=== PATIENT | female | born 1955 | race Caucasian/White ===

== ENCOUNTER 2021-11-13 10:19 | Outpatient (CLI) | payer MEDICARE, OTHER, SELFPAY ==
--- NOTE | ~2021-11-13 | DEXA_ITS ---
Bone Density Report Name: SHIKHA KRAUS Age: 66 Sex: Female Ethnicity: White Date of : 1955 Indication: postmenopausal; screening for osteoporosis; parental hip fracture; height loss; cancer; hysterectomy; Referring Provider: GIORGIO*, LÓPEZ Lord Study: Bone densitometry was performed. Exam Date: November 13, 2021 Accession number: [id number] Bone Density: Region BMD T-score Z-score Classification AP Spine(L1-L4) 1.236 1.7 3.7 Normal Femoral Neck (Left) 0.942 0.8 2.6 Normal Total Hip (Left) 1.123 1.5 2.9 Normal Femoral Neck (Right) 0.904 0.5 2.2 Normal Total Hip (Right) 1.116 1.4 2.8 Normal Total Hip Mean 1.120 1.5 2.9 Normal World Health Organization criteria for BMD impression classify patients as: Normal (T-score at or above -1.0), Osteopenia (T-score between -1.0 and -2.5), or Osteoporosis (T-score at or below -2.5). 10-year Fracture Risk: FRAX not reported because: All T-scores for Spine Total, Hip Total, Femoral Neck at or above -1.0 Clinical Information Provided by Patient: Parent has had a hip fracture Has the following medical conditions: Cancer, Hysterectomy Patient maximum height was 72 Menopause Age: 63 No regular weight bearing exercise Does not regularly consume dairy products Onset of menses at age 12 Number of children 3 Impression: The patient has normal bone mass. The patient has risk factors, including: parental hip fracture. Discussion: LOW RISK OF FRACTURE; BONE DENSITY IS WELL ABOVE THE MINIMUM DESIRABLE LEVEL AND ABOVE AVERAGE FOR AGE AND SEX AT ALL SKELETAL SITES TESTED. This person's bone density is above expected limits for age and sex. This is rarely clinically significant, but should be pursued if there are significant musculoskeletal complaints. The patient should follow a healthful lifestyle (good nutrition with adequate calcium and vitamin D, and appropriate weight-bearing exercise). Follow-Up: Consider repeating this study in 5 years or sooner if there is some new clinical indication. Reported by: CHERI on 11/13/2021 10:56:00 AM. Reviewed, dictated and finalized at location ASvitlana MURRAY
--- NOTE | ~2021-11-13 | MM_ITS ---
EXAMINATION: MM screening digna BI w herman HISTORY: Screening mammogram TECHNIQUE: Craniocaudal and mediolateral oblique 3-D tomosynthesis images were obtained and synthetic 2-D images were generated. CAD analysis was submitted and interpreted. COMPARISON: No prior mammogram is available for comparison at this institution. BREAST PARENCHYMAL COMPOSITION: There are scattered areas of fibroglandular density. FINDINGS: Right breast: Asymmetry is noted in the upper outer quadrant of the right breast. Diagnostic right mammogram and ri ght breast ultrasound examination are recommended. Left breast:, There is no evidence of suspicious mass, calcification, or architectural distortion to suggest malignancy in the left breast. IMPRESSION: 1. Right breast mammographic asymmetry 2. Diagnostic right mammogram and right breast ultrasound examination are recommended. BI-RADS Category 0: Incomplete: Needs additional imaging evaluation. Reviewed, dictated and finalized at location A. IMPRESSION: 1. Right breast mammographic asymmetry 2. Diagnostic right mammogram and right breast ultrasound examination are recom mended. BI-RADS Category 0: Incomplete: Needs additional imaging evaluation.
== END 2021-11-13 10:20 | disposition home or self-care (01) ==
LOC: ANHIMG 10:25
PROVIDERS: PCP Internal Medicine; Visit Provider Internal Medicine
DX: Z12.31 Encounter for screening mammogram for malignant neoplasm of breast (principal); M81.0 Age-related osteoporosis without current pathological fracture; R92.8 Other abnormal and inconclusive findings on diagnostic imaging of breast
CPT/HCPCS: 77063; 77067; 77080

== ENCOUNTER 2021-12-05 11:00 | Outpatient (CLI) | payer MEDICARE, OTHER, SELFPAY ==
--- NOTE | ~2021-12-05 | MMUS_ITS ---
EXAMINATION: MM diagnostic digna RT w herman, US breast RT limited HISTORY: Possible right breast mass on screening mammogram TECHNIQUE: Additional 3-D tomosynthesis images of the right breast were performed and synthetic 2-D i mages were generated. CAD analysis was submitted and interpreted. High resolution limited right breas t ultrasound was performed. COMPARISON: 11/13/2021 FINDINGS: MAMMOGRAPHIC FINDINGS: There is an approximately 12 mm equal density, obscured, bilobed mass in the middle third of the uppe r outer quadrant of the breast at the 10:00 location 7 cm from the nipple. ULTRASOUND: There is a 9 mm x 5 mm hypoechoic mass with irregular margins, posterior acoustic shadowing, and no i nternal vascularity at the 9:00 location 10 cm from the nipple. IMPRESSION: 1. Suspicious right breast mass. 2. Ultrasound-guided biopsy is recommended. BI-RADS category 4, suspicious findings. Reviewed, dictated and finalized at location B. IMPRESSION: 1. Suspicious right breast mass. 2. Ultrasound-guided biopsy is recommended. BI-RADS category 4, suspicious findings.
== END 2021-12-05 11:01 | disposition home or self-care (01) ==
PROVIDERS: PCP Internal Medicine; Visit Provider Internal Medicine
DX: R92.8 Other abnormal and inconclusive findings on diagnostic imaging of breast (principal)
CPT/HCPCS: 76642; 77061; 77065; G0279

== ENCOUNTER 2021-12-25 08:52 | Outpatient (CLI) | payer MEDICARE, OTHER, SELFPAY ==
--- NOTE | ~2021-12-25 | MMUS_ITS ---
EXAMINATION: US breast biopsy RT w image, MM post biopsy invasive RT DATE: 12/25/2021 10:37 (accession [id number]), 12/25/2021 10:20 (accession [id number]) INDICATION: Indeterminate right breast mass at the 9:00 location. Ultrasound-guided core biopsy is re quested to evaluate for malignancy. TECHNIQUE AND FINDINGS: The risks and potential benefits of the procedure were discussed with the patient including bleeding and infection. A time out was performed. The skin of the right breast was prepared and draped in usua l sterile fashion. 1% lidocaine was used for superficial anesthesia. 1% lidocaine with epinephrine wa s used for deep anesthesia. A vacuum-assisted biopsy needle was advanced through to the outer edge of the region of interest from an inferior approach utilizing sonographic guidance. A total of five tissue core samples were obtain ed through the lesion. A tissue marker clip was then placed at the biopsy site. Hemostasis was achiev ed. A sterile bandage was applied. The patient tolerated procedure well and there was no evidence of immediate complication. The patient was given verbal instructions to return to the Emergency Department in the event of severe breast pa in or rapid breast enlargement. A two view right breast mammogram was obtained to document tissue mar ker clip placement. IMPRESSION: 1. Successful ultrasound-guided vacuum-assisted biopsy of right breast mass with tissue marker placem ent. Reviewed, dictated and finalized at location A. IMPRESSION: 1. Successful ultrasound-guided vacuum-assisted biopsy of right breast mass wit h tissue marker placement.
== END 2021-12-25 08:53 | disposition home or self-care (01) ==
PROVIDERS: PCP Internal Medicine; Visit Provider Internal Medicine
DX: R92.8 Other abnormal and inconclusive findings on diagnostic imaging of breast (principal); N60.11 Diffuse cystic mastopathy of right breast
CPT/HCPCS: 19083; 88305; A4648

== ENCOUNTER 2022-03-19 10:22 | Emergency (ER) | payer MEDICARE, OTHER, SELFPAY ==
--- NOTE | 2022-03-19 10:31 | ED.WOUNDLAC ---
HPI - Wound/Laceration General Chief Complaint: Skin/Abscess/Foreign Body Stated Complaint: Fall/ Mouth Injury Time Seen by Provider: 03/19/22 10:26 Source: patient Mode of arrival: ambulatory Limitations: no limitations History of Present Illness HPI narrative: Ms. Francisco is a 66-year-old female patient presenting to clinic today with complaints of a possible lip laceration. She reports that she fell this morning on some concrete and cut the inside of her lip. She denies any loss of consciousness or neck pain. She does have some abrasions to the nasal bridge and to the upper external lip. She denies any other injury. She denies any headache, dizziness, visual changes, nausea, chest pain, or shortness of breath. Related Data Home Medications Medication Instructions Recorded Confirmed aspirin 325 mg tablet,delayed 325 mg PO DAILY 03/19/22 03/19/22 release (Aspir-Ketty) ezetimibe 10 mg tablet 10 mg PO DAILY 03/19/22 03/19/22 losartan 100 1 tablet PO DAILY 03/19/22 03/19/22 mg-hydrochlorothiazide 25 mg tablet metformin 500 mg tablet 500 mg PO BID 03/19/22 03/19/22 metoprolol tartrate 25 mg tablet 25 mg PO BID 03/19/22 03/19/22 Allergies Allergy/AdvReac Type Severity Reaction Status Date / Time No Known Allergies Allergy Verified 03/19/22 10:26 Review of Systems Review of Systems: Pertinent positives per HPI. Patient denies any fever, chills, rash, headache, visual changes, dizziness, cough, runny nose, sore throat, shortness of breath, chest pain, palpitations, nausea, vomiting, diarrhea, constipation, abdominal pain, or any urinary issues. PMFSH Comments At the time of my signature, I reviewed and agree with the nursing past medical, surgical, social, and family history. There is no relevant family history pertinent to the patient complaint. Exam Narrative: General: Well-developed, well nourished, in no apparent distress Head: Normocephalic, atraumatic. Cardio: Regular rate and rhythm, s1 and s2 normal, no murmur appreciated. Resp: Clear to auscultation bilaterally, no rhonchi, rales, wheezing or rubs. Integumentary: [place], warm, and dry, abrasions to the top of the nasal bridge and to the external upper mid lip, small superficial cuts to the in her mid upper left with a superficial bleeding laceration. Swelling noted to the mid upper lip- no obvious through and through laceration Course Course Emergency Course: Portions of this record may have been created with voice recognition software. Level of Care: Express Care Visit Vital Signs Vital signs: Vital Signs Temperature 36.5 C 03/19/22 10:35 Pulse Rate 51 L 03/19/22 10:35 Respiratory Rate 16 03/19/22 10:35 Blood Pressure 162/69 H 03/19/22 10:35 Pulse Oximetry 99 03/19/22 10:35 Oxygen Delivery Room Air 03/19/22 10:35 Temperature 36.5 C 03/19/22 10:35 Pulse Rate 51 L 03/19/22 10:35 Respiratory Rate 16 03/19/22 10:35 Blood Pressure 162/69 H 03/19/22 10:35 Pulse Oximetry 99 03/19/22 10:35 Oxygen Delivery Room Air 03/19/22 10:35 Vital signs reviewed MDM - Wound/Laceration MDM Narrative Medical decision making narrative: at the time of visit patient is resting comfortably on the exam table. She denies any headache, vision changes, loss of consciousness, or neck pain. She does have a nasal bridge abrasion and abrasion to the external mid upper lip. She does have superficial abrasions / cuts to the in her mid upper lip. Supportive measures were discussed with the patient she voiced understanding of discharge instructions. I do not see anything to suture at this time. Will send in prescription for cephalexin and update her tetanus in the clinic today. Head injury instructions were reviewed with the patient. Differential Diagnosis Differential diagnosis: Likely laceration, abrasion and other ( fall, head injury) Discharge Plan Discharge Clinical Impression: Laceration of lip Qualifiers: Encounter
[2022-03-19 10:35] VITALS: BP 162/69; PULSE 51; RESP 16; TEMP 36.5; O2SAT 99
[2022-03-19] MEDS: TETANUS,DIPHTHERIA,AC PERTUSSIS ADULT (0.5 ML) BOOSTRIX IM (10:48)
== END 2022-03-19 10:55 | disposition home or self-care (01) ==
PROVIDERS: Emergency Provider Nurse Practitioner Family; PCP Internal Medicine
DX: S01.511A Laceration without foreign body of lip, initial encounter (principal); W19.XXXA Unspecified fall, initial encounter; Z23 Encounter for immunization; E78.00 Pure hypercholesterolemia, unspecified; I10 Essential (primary) hypertension; E11.9 Type 2 diabetes mellitus without complications; Z79.82 Long term (current) use of aspirin
CPT/HCPCS: 90471; 90715; 99213; 99214; G0463

== ENCOUNTER 2023-01-01 11:24 | Emergency (ER) | payer MEDICARE, OTHER, SELFPAY ==
--- NOTE | ~2023-01-01 | XR_ITS ---
EXAMINATION: XR knee RT 3V DATE: 01/01/2023 12:01 INDICATION: Chronic right knee pain. TECHNIQUE: 3 views of right knee were obtained. COMPARISON: Right knee radiographs 02/13/2013 FINDINGS: There is lateral subluxation of patella. No fracture. There is severe osteoarthritis of lat eral and patellofemoral compartments and moderate osteoarthritis of medial compartment. There is a sm all knee joint effusion. IMPRESSION: 1. Severe right knee osteoarthritis. 2. Small right knee joint effusion. Reviewed, dictated and finalized at location E.
--- NOTE | 2023-01-01 11:26 | ED.LOWEXIN ---
HPI - Extremity Injury (Lower) General Chief Complaint: Extremity Problem,Nontraumatic Stated Complaint: Right Knee Pain Time Seen by Provider: 01/01/23 11:43 Source: patient, RN notes reviewed and old records reviewed Mode of arrival: ambulatory Limitations: no limitations History of Present Illness HPI Narrative: 67-year-old female presents to the [facility] with increased right knee pain since last night. Patient reports history of knee pain History of hypertension, diabetes Patient walks with a cane, limp favoring right Tenderness to the right knee. Patient states that she went to roll over in bed and had increased pain. Has never been evaluated for knee pain by an orthopedist Onset (ago): day(s) (1) Related Data Home Medications Medication Instructions Recorded Confirmed aspirin 325 mg tablet,delayed 325 mg PO DAILY 03/19/22 01/01/23 release (Aspir-Ketty) losartan 100 1 tablet PO DAILY 03/19/22 01/01/23 mg-hydrochlorothiazide 25 mg tablet metformin 500 mg tablet 500 mg PO BID 03/19/22 01/01/23 metoprolol tartrate 25 mg tablet 25 mg PO BID 03/19/22 01/01/23 rosuvastatin 20 mg tablet 20 mg PO DAILY 01/01/23 01/01/23 Allergies Allergy/AdvReac Type Severity Reaction Status Date / Time No Known Allergies Allergy Verified 01/01/23 11:26 Review of Systems Review of Systems: All systems reviewed & are unremarkable except as noted in HPI and below Constitutional: Constitutional: Reports no additional constitutional complaints Eyes: Eyes: Reports no additional eye complaints ENT: Reports system reviewed and no additional complaints, except as documented Cardiovascular: Cardiovascular: Reports no additional cardiovascular complaints, Denies chest pain and Denies dyspnea Respiratory: Respiratory: Reports no additional respiratory complaints, Denies chest congestion, Denies cough and Denies dyspnea Gastrointestinal: Gastrointestinal: Reports no additional gastrointestinal complaints, Denies abdominal pain, Denies nausea and Denies vomiting Musculoskeletal: Musculoskeletal: Reports as per HPI and Reports arthralgias (Right lateral) Integumentary/Breasts: Skin/Breast: Reports system reviewed and no additional complaints, except as docu Neurologic: Reports system reviewed and no additional complaints, except as documented Psychiatric: Psychiatric: Reports no additional psychiatric complaints Allergic/Immunologic: Allergic/Immunologic: Reports no additional allergic/immunologic complaints [facility] Past Medical History Medical History (Updated 01/02/23 @ 09:53 by Sylvia Muniz APRN) Diabetes High cholesterol Hypertension Social History Social History Living arrangements: with family Spiritual care concerns: No Comments At the time of my signature, I reviewed and agree with the nursing past medical, surgical, social, and family history. There is no relevant family history pertinent to the patient complaint. Exam Const: General: cooperative, healthy appearing, comfortable, no acute distress, well developed, alert and well nourished Nutritional Appearance: well nourished and obese Orientation/consciousness: patient oriented x3 Limitations: no limitations HENMT: Head: normal to inspection Ears: hearing grossly normal bilaterally and external ears normal Face/Nose/Sinus: Normal external nose present, Normal nares present, Normal nasal mucous membranes and turbinates present, normal facial exam and face symmetric Face and sinus: normal facial exam and face symmetric Eyes: General: appearance normal, both eyes and all related structures Alignment and Position: alignment normal Periorbital: periorbital findings normal Pupils: Equal, round and reactive pupils present EOM: EOMs intact bilaterally Neck: Neck: normal visual inspection, full ROM, no lymphadenopathy and no meningeal signs Chest: Chest palpation & inspection: normal inspection of th
[2023-01-01 11:38] VITALS: BP 134/60; PULSE 56; RESP 20; TEMP 37.1; O2SAT 97
== END 2023-01-01 12:20 | disposition home or self-care (01) ==
PROVIDERS: Emergency Provider Nurse Practitioner; PCP Internal Medicine
DX: M25.461 Effusion, right knee (principal); M17.11 Unilateral primary osteoarthritis, right knee; E11.9 Type 2 diabetes mellitus without complications; I10 Essential (primary) hypertension; Z79.899 Other long term (current) drug therapy; Z79.82 Long term (current) use of aspirin; Z79.84 Long term (current) use of oral hypoglycemic drugs
CPT/HCPCS: 73562; 99213; G0463

== ENCOUNTER 2024-03-26 22:11 | Inpatient (IN) | payer MEDICARE, OTHER, SELFPAY ==
[2024-03-26] VITALS (10 sets, daily range): BP systolic 104–111; BP diastolic 59–64; PULSE 94–121; RESP 18–23; TEMP 37; O2SAT 90–93
--- NOTE | ~2024-03-26 | XR_ITS ---
EXAMINATION: XR chest port-a-cath/central DATE: 04/02/2024 08:48 INDICATION: Central line placement. TECHNIQUE: A single frontal view of the chest was obtained. COMPARISON: Chest single view at 5:35 AM FINDINGS: There are airspace opacities in all right lung zones and in left mid and lower lung zones. There is a small right pleural effusion. No pneumothorax. The heart size is normal. The endotracheal tube tip is 4.7 cm above the que. The nasogastric tube tip is beyond the inferior margin of the ra diograph, but at least to the stomach. A right internal jugular central venous catheter is seen with tip at the superior cavoatrial junction. A right upper extremity peripherally inserted central venous catheter (PICC) is seen with tip at the superior cavoatrial junction. IMPRESSION: 1. New central line tip at superior cavoatrial junction. 2. Unchanged airspace opacities in right lung and left mid and lower lung zones, consistent with pneu monia. 3. Small right pleural effusion. Reviewed, dictated and finalized at location A. METER REPAIRER IMPRESSION: 1. New central line tip at superior cavoatrial junction. 2. Unchanged airspace opacities in right lung and left mid and lower lung zones , consistent with pneumonia. 3. Small right pleural effusion.
--- NOTE | ~2024-03-26 | XR_ITS ---
EXAMINATION: XR chest 1V portable DATE: 04/16/2024 05:51 INDICATION: Respiratory failure TECHNIQUE: frontal view of the chest was obtained. COMPARISON: Chest radiograph dated 04/15/2024 FINDINGS: Tracheostomy tube at the thoracic inlet. Large-bore dual-lumen likely tunneled left internal jugular central venous catheter with distal tip in the right brachiocephalic vein. Right upper extremity lisa pherally inserted central venous catheter (PICC) tip at the caudal superior vena cava. Improving aeration in the right lower lung zone with decrease in mild residual airspace opacities. Un changed bandlike discoid atelectasis/scarring in the left midlung zone. No pneumothorax or definitive pleural effusion. Cardiomegaly. IMPRESSION: 1. Decreasing opacities in the right lower lung zone consistent with improving atelectasis and/or pne umonia. 2. Cardiomegaly. 2. Lines and tubes unchanged with tip in the left internal jugular central venous catheter in the rig ht brachiocephalic vein. Reviewed, dictated and finalized at location A. GER SALES SUPPORT IMPRESSION: 1. Decreasing opacities in the right lower lung zone consistent with improving atelectasis and/or pneumonia. 2. Cardiomegaly. 2. Lines and tubes unchanged with tip in the left internal jugular central veno us catheter in the right brachiocephalic vein.
--- NOTE | ~2024-03-26 | US_ITS ---
EXAMINATION: US renal BI DATE: 03/31/2024 15:29 INDICATION: VINCENT TECHNIQUE: Multiple grayscale and Doppler ultrasound images of the kidneys were obtained. COMPARISON: None. FINDINGS: The right kidney measures 12.4 x 5.6 x 5.2 cm. The left kidney measures 12.3 x 6.4 x 5.3 cm. The kidn eys demonstrate normal parenchymal echogenicity. 0.7 x 5.2 cm anechoic collection along the anterior surface of the left lower pole. There is no hydronephrosis. The bladder is not well visualized due to the presence of a Can catheter. IMPRESSION: No hydronephrosis. Perinephric fluid collection adjacent to the left lower pole. Reviewed, dictated and finalized at location K. SPERSON IMPRESSION: No hydronephrosis. Perinephric fluid collection adjacent to the left lower pole .
--- NOTE | ~2024-03-26 | XR_ITS ---
EXAMINATION: XR abdomen gastric tube rechec DATE: 03/29/2024 08:57 INDICATION: Orogastric tube placement. TECHNIQUE: A supine view of the abdomen and lower chest was obtained for evaluation of feeding tube placement. COMPARISON: None. FINDINGS: Endotracheal tube tip 2.8 cm above the que. Nasogastric tube extends into the stomach with distal tip collimated beyond the inferior margin of the [id number]. Right upper extremity peripherally in serted central venous catheter (PICC) tip at the caudal superior vena cava. No significant change in diffuse patchy airspace opacities throughout the right lung and in the left midlung zone. No evident pneumothorax or definitive pleural effusion. Heart size is normal. IMPRESSION: 1. Lines and tubes in expected positions. 2. Diffuse bilateral lung disease, right greater than left, consistent with multifocal pneumonia. Reviewed, dictated and finalized at location B. GRAM MACHINE OPERATOR IMPRESSION: 1. Lines and tubes in expected positions. 2. Diffuse bilateral lung disease, right greater than left, consistent with mul tifocal pneumonia.
--- NOTE | ~2024-03-26 | XR_ITS ---
XR chest 1V portable 03/30/2024 05:46 Indication: Intubation Procedure: AP portable chest Comparison: Comparison to multiple prior studies sequentially, with oldest reviewed study dated 03/28. Findings: Endotracheal tube positioned 3.2 cm above the que. NG tube in the stomach. Extensive bilateral airspace disease without significant interval change which may represent edema or pneumonia. Small right pleural effusion. No pneumothorax. Impression: 1: Stable bilateral airspace disease which may represent edema or pneumonia. Reviewed, dictated and finalized at location A. CLINICAL PROGRAMMER Impression: 1: Stable bilateral airspace disease which may represent edema or pneumonia.
--- NOTE | ~2024-03-26 | XR_ITS ---
Portable chest x-ray Comparison: 04/05/2024 Clinical History: Respiratory failure Findings: Endotracheal tube, NG tube, and right-sided PICC line are in place. There is mild pulmonar y edema pattern bilaterally. Cardiomediastinal silhouette is stable. Bones and soft tissues are unre markable. Impression: Mild pulmonary edema pattern. Support tubes, as above. Reviewed, dictated and finalized at location . INUM POURER Impression: Mild pulmonary edema pattern. Support tubes, as above.
--- NOTE | ~2024-03-26 | XR_ITS ---
INTRAOPERATIVE FLUOROSCOPY: CLINICAL HISTORY: 68 years old Female; TUNNELED DIALYSIS CATH PROCEDURE COMMENTS: Limited intraoperative fluoroscopy of the mediastinum was performed. CUMULATIVE DOSE: 26 mGy FLUOROSCOPY TIME: 43 seconds FINDINGS/IMPRESSION: Please refer to operative note for further details. Reviewed, dictated and finalized at location A. G SAW OPERATOR
--- NOTE | ~2024-03-26 | XR_ITS ---
EXAMINATION: XR chest port-a-cath/central DATE: 04/13/2024 16:28 INDICATION: Tunneled dialysis catheter placement. TECHNIQUE: frontal view of the chest was obtained. COMPARISON: Chest radiograph dated 04/13/2024 FINDINGS: Interval removal of the prior left internal jugular central venous catheter and placement of a new la rge-bore dual-lumen likely tunneled left internal jugular central venous catheter. The catheter exten ds across midline with distal tip extending retrograde fashion into the right brachiocephalic vein. U nchanged right upper extremity peripherally inserted central venous catheter (PICC) tip at the cauda l superior vena cava. Tracheostomy tube at the thoracic inlet. Persistent airspace opacity in the right mid to lower lung zone which could represent atelectasis, pn eumonia, small right pleural effusion or some combination thereof. Left lung remains clear. No or pul monary edema, pneumothorax or left-sided pleural effusion. Heart size is normal. IMPRESSION: 1. Newly placed large-bore dual-lumen left internal jugular central venous catheter with distal tip e xtending retrograde into the right brachiocephalic vein. 2. Persistent opacity in the right mid to lower lung zone which could represent atelectasis, pneumoni a, small right pleural effusion or some combination thereof. Reviewed, dictated and finalized at location A. APPLIANCE REPAIRER IMPRESSION: 1. Newly placed large-bore dual-lumen left internal jugular central venous cath eter with distal tip extending retrograde into the right brachiocephalic vein. 2. Persistent opacity in the right mid to lower lung zone which could represent atelectasis, pneumonia, small right pleural effusion or some combination there of.
--- NOTE | ~2024-03-26 | XR_ITS ---
EXAMINATION: XR chest 1V portable DATE: 04/10/2024 06:17 INDICATION: Acute respiratory failure on mechanical ventilation TECHNIQUE: frontal view of the chest was obtained. COMPARISON: Chest radiograph dated 04/09/2024 FINDINGS: Endotracheal tube tip 6.8 cm above the que. Nasogastric tube with proximal side-port below level of the gastroesophageal junction with distal tip collimated off the study. Right upper extremity lisa pherally inserted central venous catheter (PICC) tip at the caudal superior vena cava. Large report dual-lumen left internal jugular central venous catheter with distal tip at the superior cavoatrial j unction. There's been some decrease in airspace opacities in the right lower lung zone which could represent a telectasis, pneumonia, small right pleural effusion or some combination thereof. Left lung remains cl ear. No pneumothorax or left-sided pleural effusion. The cardiomediastinal silhouette is normal. IMPRESSION: 1. Lines and tubes as detailed above. Consider advancement of the endotracheal tube by 4 cm. 2. Decreasing opacities in the right lower lung zone consistent with decreasing small right pleural e ffusion, atelectasis, pneumonia or some combination thereof. Reviewed, dictated and finalized at location A. EKEEPER MANAGER IMPRESSION: 1. Lines and tubes as detailed above. Consider advancement of the endotracheal tube by 4 cm. 2. Decreasing opacities in the right lower lung zone consistent with decreasing small right pleural effusion, atelectasis, pneumonia or some combination there of.
--- NOTE | ~2024-03-26 | CT_ITS ---
Non-contrast Head CT History: Left arm weakness COMPARISON: 03/28/2024 Technique: Axial non-contrast imaging of the brain was performed. Dose reduction technique was used on this scan by utilizing automated exposure control and iterative reconstruction technique. The dose -length product (DLP) was 681.00 mGy-cm. Findings: There is no evidence of intracranial hemorrhage, mass lesion, or acute infarct. Brain par enchyma appears normal. The ventricles and subarachnoid spaces are normal in size. The calvarium ap pears normal. There is right greater than left maxillary sinus disease as well as bilateral sphenoid sinus disease. The remaining visualized paranasal sinuses are clear. Impression: No intracranial abnormality seen. Sinus disease, as above. Reviewed, dictated and finalized at [facility]. STREAM BIOMANUFACTURING TECHNICIAN Impression: No intracranial abnormality seen. Sinus disease, as above.
--- NOTE | ~2024-03-26 | XR_ITS ---
EXAMINATION: XR chest PICC line DATE: 03/28/2024 16:03 INDICATION: Central line placement. TECHNIQUE: A single frontal view of the chest was obtained. COMPARISON: Chest single view at 2:35 PM, chest CT 03/27/2024 FINDINGS: There are airspace opacities in all right lung zones and in left mid and lower lung zones. No pleural effusion or pneumothorax. The heart size is normal. The endotracheal tube tip is 3.1 cm ab ove the que. The nasogastric tube tip is beyond the inferior margin of the radiograph, but at leas t to the stomach. A right upper extremity peripherally inserted central venous catheter (PICC) is see n with tip in the superior vena cava. IMPRESSION: 1. PICC tip in the superior vena cava. 2. Diffuse lung disease with worsening on the left, consistent with pneumonia. Reviewed, dictated and finalized at location A. OR SPEECH PATHOLOGIST
--- NOTE | ~2024-03-26 | XR_ITS ---
EXAMINATION: XR chest 1V portable DATE: 04/03/2024 05:54 INDICATION: Respiratory failure TECHNIQUE: frontal view of the chest was obtained. COMPARISON: Chest radiograph dated 04/02/2024 FINDINGS: Endotracheal tube tip 3.8 cm above the que. Nasogastric tube with distal tip in proximal side port in the stomach. Right upper extremity peripherally inserted central venous catheter (PICC) tip at t he caudal superior vena cava. There is also a large-bore dual-lumen right internal jugular central ve nous catheter with distal tip near the superior cavoatrial junction. Interval decrease in the gradient of hazy basilar prominent airspace opacities in the right lung cons istent with likely significant decrease or resolution of a prior right pleural effusion. There are so me persistent superimposed increased interstitial and mild airspace opacities in the right mid to low er lung which and in the medial left lower lung zone which are more suspicious for pneumonia. No pneu mothorax or definitive pleural effusion. Heart size is normal. IMPRESSION: 1. Lines and tubes in expected position as detailed above. 2. Persistent opacities in the right mid to lower and left lower lung zones which are concerning for pneumonia. 3. Significant decrease if not resolution of a prior right pleural effusion. Reviewed, dictated and finalized at location A. EAD BUILDER IMPRESSION: 1. Lines and tubes in expected position as detailed above. 2. Persistent opacities in the right mid to lower and left lower lung zones whi ch are concerning for pneumonia. 3. Significant decrease if not resolution of a prior right pleural effusion.
--- NOTE | ~2024-03-26 | XR_ITS ---
EXAMINATION: XR chest ET placement, XR abdomen gastric tube insert DATE: 03/28/2024 15:02 INDICATION: Tracheal tube placement and nasogastric tube placement TECHNIQUE: 1. Portable supine AP view of the chest was obtained. 2. Portable supine AP view of the abdomen was obtained. COMPARISON: Chest radiograph dated 03/28/2024 at 12:32 AM FINDINGS: Chest: Endotracheal tube tip 4.0 cm above the que. Persistent patchy airspace opacities throughout the ri ght lung relatively sparing the apex consistent with pneumonia. Visualized left lung is clear. The la teral left lower lung zones excluded from the [id number]. No pneumothorax or pleural effusion. Hea rt size is normal. Abdomen: Nasogastric tube tip in proximal side port in the body the stomach. No dilated loops of gas-filled sonia wel in the visualized abdomen. IMPRESSION: 1. Endotracheal tube and nasogastric tube in expected positions. 2. Extensive patchy airspace opacities throughout the right lung consistent with multifocal pneumonia . Reviewed, dictated and finalized at location B. UREMENT DEPARTMENT CHIEF CLERK IMPRESSION: 1. Endotracheal tube and nasogastric tube in expected positions. 2. Extensive patchy airspace opacities throughout the right lung consistent wit h multifocal pneumonia.
--- NOTE | ~2024-03-26 | XR_ITS ---
XR chest 1V portable 03/31/2024 05:35 Indication: Respiratory distress. Procedure: AP portable chest Comparison: Comparison to multiple prior studies sequentially, with oldest reviewed study dated 03/28. Findings: Persistent diffuse bilateral airspace disease, most likely edema versus pneumonia. Small ri ght effusion. Endotracheal tube tip 3.8 cm above the que. NG tube in the stomach. PICC line tip in the caudal aspect of the SVC. No pneumothorax. Impression: 1: Persistent diffuse bilateral airspace disease without significant change, edema versus pneumonia. Reviewed, dictated and finalized at location A. T SENIOR ASSOCIATE Impression: 1: Persistent diffuse bilateral airspace disease without significant change, ed teodora versus pneumonia.
--- NOTE | ~2024-03-26 | XR_ITS ---
Portable chest x-ray Comparison: 04/06/2024 Clinical History: Respiratory failure Findings: Endotracheal tube, NG tube, and right-sided central venous lines are in place. There is pr obable mild pulmonary edema pattern. Cardiomediastinal silhouette is stable. Bones and soft tissues are unremarkable. Impression: Mild pulmonary edema pattern. Correlate clinically for infection. Support tubes, as above. Reviewed, dictated and finalized at [facility]. NCIAL SERVICES INTERN Impression: Mild pulmonary edema pattern. Correlate clinically for infection. Support tubes, as above.
--- NOTE | ~2024-03-26 | CT_ITS ---
Clinical Indication: Pulmonary embolus CT Scan of the Chest with Contrast: Technique: Contiguous sections were acquired throughout the chest after intravenous administration of 100 cc of Omnipaque 350. Dose reduction technique was used on this scan by utilizing automated expos ure control and iterative reconstruction technique. The dose-length product (DLP) was 979.21 mGy-cm. Findings: There are mildly enlarged right axillary and subcarinal lymph nodes. There is no filling defect in th e pulmonary arterial tree to suggest pulmonary embolus. There is no evidence of aortic dissection or aneurysm. There is no evidence of pleural or pericardial effusion. There is extensive right lower lobe consolidation, compatible with pneumonia. Left lung clear. Images through the upper abdomen reveal no abnormalities. Impression: No evidence of pulmonary embolus, aortic dissection, or aortic aneurysm. Extensive right lower lobe pneumonia. Probable mildly prominent reactive lymphadenopathy the right axilla and subcarinal region. Reviewed, dictated and finalized at [facility]. CTIVE Impression: No evidence of pulmonary embolus, aortic dissection, or aortic aneurysm. Extensive right lower lobe pneumonia. Probable mildly prominent reactive lymphadenopathy the right axilla and subcari nal region.
--- NOTE | ~2024-03-26 | XR_ITS ---
Portable chest x-ray Comparison: 04/10/2024 Clinical History: Respiratory failure Findings: Endotracheal tube, NG tube, and bilateral central venous lines are in place. There is hazy bibasilar airspace disease, unchanged. Possible focal lingular airspace disease. Cardiomediastinal silhouette is stable. Bones and soft tissues are unremarkable. Impression: Hazy right basilar airspace disease and possible focal lingular airspace disease. Correlate for pulmo nary edema versus pneumonia. Support tubes, as above. Reviewed, dictated and finalized at location . PLANER SET UP OPERATOR Impression: Hazy right basilar airspace disease and possible focal lingular airspace diseas e. Correlate for pulmonary edema versus pneumonia. Support tubes, as above.
--- NOTE | ~2024-03-26 | XR_ITS ---
Portable chest x-ray Comparison: None Clinical History: Shortness of breath Findings: There is hazy bibasilar airspace disease, right worse than left. Also minimal right pleura l effusion. Cardiomediastinal silhouette is prominent. Bones and soft tissues are unremarkable. Impression: Bibasilar pulmonary edema versus bibasilar pneumonia, right worse than left. Correlate clinically. Suspected minimal right pleural effusion. Cardiomegaly. Reviewed, dictated and finalized at location . TY ONE DEALER Impression: Bibasilar pulmonary edema versus bibasilar pneumonia, right worse than left. Co rrelate clinically. Suspected minimal right pleural effusion. Cardiomegaly.
--- NOTE | ~2024-03-26 | XR_ITS ---
EXAMINATION: XR chest 1V portable DATE: 04/02/2024 05:42 INDICATION: Intubated. TECHNIQUE: A single frontal view of the chest was obtained. COMPARISON: Chest single view 04/01/2024, chest CT 03/27/2024 FINDINGS: There are airspace opacities in all right lung zones and in left mid and lower lung zones. No pleural effusion or pneumothorax. The heart size is normal. The endotracheal tube tip is 4.5 cm ab ove the que. A right upper extremity peripherally inserted central venous catheter (PICC) is seen with tip at the superior cavoatrial junction. The nasogastric tube tip is beyond the inferior margin of the radiograph, but at least to the stomach. IMPRESSION: 1. Airspace opacities in right lung and left mid and lower lung zones without change, consistent with pneumonia. Reviewed, dictated and finalized at location A. MBLER BODY IMPRESSION: 1. Airspace opacities in right lung and left mid and lower lung zones without c hange, consistent with pneumonia.
--- NOTE | ~2024-03-26 | XR_ITS ---
Portable chest x-ray Comparison: 04/07/2024 Clinical History: Respiratory failure Findings: Endotracheal tube, NG tube, and bilateral central venous lines are in place. There is hazy bilateral airspace disease, right worse than left, similar to prior exam. Cardiomediastinal silhoue tte is stable. Bones and soft tissues are unremarkable. Impression: Probable mild pulmonary edema pattern, right worse than left, versus infection. Findings are stable f rom prior exam. Support tubes in place, as above. Reviewed, dictated and finalized at location . ST SCIENCE PROFESSOR Impression: Probable mild pulmonary edema pattern, right worse than left, versus infection. Findings are stable from prior exam. Support tubes in place, as above.
--- NOTE | ~2024-03-26 | XR_ITS ---
CHEST RADIOGRAPH CLINICAL HISTORY: Respiratory failure . COMPARISON: Multiple prior images performed most recently on 04/16/2024 and dating back to 04/14/2024 TECHNIQUE: Single portable view of the chest. FINDINGS Left internal jugular tunneled hemodialysis catheter tip projecting over the right brachiocephalic ve in for which readjustment into a central large vein is recommended. Tracheostomy tube is identified with its tip projecting approximately 2. 5 cm above the base of the c arely. Right upper extremity central venous catheter identified with its tip projecting over the proximal ri ght atrium. The remainder of the cardiomediastinal silhouette is otherwise unremarkable. Blunting of the right costophrenic sulcus suggesting a small right-sided pleural effusion. The remainder of the lungs are clear. IMPRESSION: Small right-sided pleural effusion. Redemonstration of a left internal jugular tunneled hemodialysis catheter with its tip projecting ove r the right brachiocephalic vein for which readjustment into a large central vein is recommended prio r to dialysis. Remaining support tubes are in good position. Reviewed, dictated and finalized at location A. FEEDER IMPRESSION: Small right-sided pleural effusion. Redemonstration of a left internal jugular tunneled hemodialysis catheter with its tip projecting over the right brachiocephalic vein for which readjustment i nto a large central vein is recommended prior to dialysis. Remaining support tubes are in good position.
--- NOTE | ~2024-03-26 | US_ITS ---
EXAMINATION: US abdomen limited DATE: 03/31/2024 15:28 INDICATION: Elevated LFTs TECHNIQUE: Multiple grayscale and Doppler ultrasound images of limited portions of the abdomen were o btained. COMPARISON: CTPA 03/27/2024. FINDINGS: Poorly visualized. The liver is normal with normal echogenicity and echotexture. No surface nodularity. Normal hepatopetal flow in the main portal vein. Surgically absent gallbladder. The comm on bile duct measures 5 mm. There was no sonographic Miller sign. IMPRESSION: Status post cholecystectomy. Pancreas poorly visualized. Otherwise normal abdominal ultrasound findin gs. Reviewed, dictated and finalized at location K. THINNER IMPRESSION: Status post cholecystectomy. Pancreas poorly visualized. Otherwise normal abdom inal ultrasound findings.
--- NOTE | ~2024-03-26 | XR_ITS ---
Portable chest x-ray Comparison: 04/13/2024 Clinical History: Respiratory failure Findings: Bilateral central venous lines and tracheostomy cannula again present. Left sided central venous line probably enters into the right brachiocephalic vein. There is mild bibasilar haziness, ri ght worse than left. Cardiomediastinal silhouette is stable. Bones and soft tissues are unremarkable . Impression: Support tubes, as above. Left-sided central venous line tip just enters into the right brachiocephali c vein. Mild bibasilar haziness, right worse than left. Correlate for bibasilar pulmonary edema versus pneumo monie. Reviewed, dictated and finalized at location . N DRIVER SALESPERSON Impression: Support tubes, as above. Left-sided central venous line tip just enters into th e right brachiocephalic vein. Mild bibasilar haziness, right worse than left. Correlate for bibasilar pulmona ry edema versus pneumonia.
--- NOTE | ~2024-03-26 | CT_ITS ---
EXAMINATION: CT brain wo con DATE: 03/28/2024 22:58 INDICATION: Altered mental status. TECHNIQUE: Computed tomography (CT) of the head was performed without intravenous contrast. The mA wa s adjusted according to patient size. Iterative reconstruction technique was employed. The dose-lengt h product was 1513.33 mGy-cm. COMPARISON: Head CT 03/27/24 FINDINGS: There is no intracranial hemorrhage, acute infarction, or abnormal intracranial mass lesion . The ventricles are normal in size. There is mucosal thickening in the paranasal sinuses. The orbit s are normal. There is a small left mastoid effusion. IMPRESSION: 1. Normal brain. Reviewed, dictated and finalized at location A. T RANCHER IMPRESSION: 1. Normal brain.
--- NOTE | ~2024-03-26 | XR_ITS ---
XR chest 1V portable 04/07/2024 12:27 Indication: Dialysis. Procedure: AP portable chest Comparison: Comparison to multiple prior studies sequentially, with oldest reviewed study dated 04/2024. Findings: Cardiomegaly. Pulmonary edema. No pneumothorax. Central venous catheter tips in the SVC. NG tube in the stomach. Endotracheal tube tip 4 cm above the que. Impression: 1: Cardiomegaly with progression of pulmonary edema. Reviewed, dictated and finalized at location B. T END DEVELOPER DESIGNER Impression: 1: Cardiomegaly with progression of pulmonary edema.
--- NOTE | ~2024-03-26 | XR_ITS ---
Portable chest x-ray Comparison: 04/17/2024 Clinical History: Respiratory failure Findings: Tracheostomy cannula and bilateral central venous lines are in place, unchanged. Left-side d central venous line tip extends into the brachiocephalic vein. Small right pleural effusion present . Left lung clear. Cardiomediastinal silhouette is stable. Bones and soft tissues are unremarkable. Impression: No interval change. Stable support tubes, as above. Left-sided central line tip again enters into the right brachiocephalic vein. Small right pleural effusion. Reviewed, dictated and finalized at location . UM KETTLE COOK Impression: No interval change. Stable support tubes, as above. Left-sided central line tip again enters into the right brachiocephalic vein. Small right pleural effusion.
--- NOTE | ~2024-03-26 | XR_ITS ---
Portable chest x-ray Comparison: 04/03/2024 Clinical History: Respiratory failure Findings: Endotracheal tube, NG tube, and right-sided central venous lines are in place. There is bi basilar airspace consolidation. Cardiomediastinal silhouette is stable. Bones and soft tissues are u nremarkable. Impression: Bibasilar airspace consolidation. Correlate for pulmonary edema/atelectasis versus pneumonia. Support tubes, as above. Reviewed, dictated and finalized at location . CARE SPECIALIST Impression: Bibasilar airspace consolidation. Correlate for pulmonary edema/atelectasis reyes ella pneumonia. Support tubes, as above.
--- NOTE | ~2024-03-26 | XR_ITS ---
EXAMINATION: XR chest 1V portable DATE: 04/09/2024 05:47 INDICATION: Acute respiratory failure. TECHNIQUE: A single frontal view of the chest was obtained. COMPARISON: Chest view 04/08/24, 03/27/2024 FINDINGS: There are airspace opacities in right mid and lower lung zones and left perihilar region. T here is a small right pleural effusion. No pneumothorax. The heart size is normal. The endotracheal t ube tip is 4.9 cm above the que. A left internal jugular central venous catheter is seen with tip at the superior cavoatrial junction. The nasogastric tube tip is beyond the inferior margin of the ra diograph, but at least to the stomach. A right upper extremity peripherally inserted central venous c atheter (PICC) is seen with tip in the superior vena cava. IMPRESSION: 1. Airspace opacities in right mid and lower lung zones and left perihilar region with worsening on t he right, consistent with pneumonia. 2. Worsened small right pleural effusion. Reviewed, dictated and finalized at location A. GER CORPORATE RESPONSIBILITY IMPRESSION: 1. Airspace opacities in right mid and lower lung zones and left perihilar mona on with worsening on the right, consistent with pneumonia. 2. Worsened small right pleural effusion.
--- NOTE | ~2024-03-26 | XR_ITS ---
Portable chest x-ray Comparison: 03/26/2024 Clinical History: Hypoxia Findings: There is worsening extensive right lung consolidation. Left lung clear. Cardiomediastinal silhouette is stable. Bones and soft tissues are unremarkable. Impression: Worsening extensive right lung consolidation, compatible with multilobar pneumonia in the right lung. Reviewed, dictated and finalized at [facility]. APPLICATIONS ADMINISTRATOR Impression: Worsening extensive right lung consolidation, compatible with multilobar pneumo monie in the right lung.
--- NOTE | ~2024-03-26 | XR_ITS ---
Portable chest x-ray Comparison: 03/28/2024 Clinical History: Intubation Findings: Endotracheal tube and right-sided PICC line are in satisfactory positions. NG tube tip is just at the GE junction region. There is extensive hazy right lung airspace disease with left perihil ar haziness. Cardiomediastinal silhouette is stable. Bones and soft tissues are unremarkable. Impression: Extensive bilateral airspace disease, right worse than left. Correlate for multifocal bilateral pneum onia versus possibly pulmonary edema. NG tube tip is at the GE junction. Further advancement by at least 10 cm recommended. Additional support tubes in satisfactory positions. Reviewed, dictated and finalized at location . OGRAPHY PROFESSOR Impression: Extensive bilateral airspace disease, right worse than left. Correlate for mult ifocal bilateral pneumonia versus possibly pulmonary edema. NG tube tip is at the GE junction. Further advancement by at least 10 cm recomm ended. Additional support tubes in satisfactory positions.
--- NOTE | ~2024-03-26 | CT_ITS ---
Non-contrast Head CT History: Status post fall Technique: Axial non-contrast imaging of the brain was performed. Dose reduction technique was used on this scan by utilizing automated exposure control and iterative reconstruction technique. The dose -length product (DLP) was 681.00 mGy-cm. Findings: There is no evidence of intracranial hemorrhage, mass lesion, or acute infarct. Brain par enchyma appears normal. The ventricles and subarachnoid spaces are normal in size. The calvarium ap pears normal. The visualized paranasal sinuses and mastoid air cells are clear. Impression: No significant abnormality seen. Reviewed, dictated and finalized at location . ICATION SUPPORT DEVELOPER Impression: No significant abnormality seen.
--- NOTE | ~2024-03-26 | XR_ITS ---
Portable chest x-ray Comparison: 04/04/2024 Clinical History: Respiratory failure Findings: Endotracheal tube, NG tube, and right-sided central venous lines are in place. There is mo derate central pulmonary edema pattern. Cardiomediastinal silhouette is stable. Bones and soft tissu es are unremarkable. Impression: Moderate pulmonary edema pattern. Correlate clinically for pneumonia. Support tubes, as above. Reviewed, dictated and finalized at [facility]. EL SOLUTION ARCHITECT Impression: Moderate pulmonary edema pattern. Correlate clinically for pneumonia. Support tubes, as above.
--- NOTE | ~2024-03-26 | XR_ITS ---
Portable chest x-ray Comparison: 04/11/2024 Clinical History: Respiratory failure Findings: Tracheostomy cannula and right-sided PICC line are in place. There is central congestive c hange and mild bibasilar pulmonary edema. Cardiomediastinal silhouette is stable. Bones and soft tis sues are unremarkable. Impression: Central congestive change and probable mild bibasilar pulmonary edema. Correlate clinically for pneum onia. Support tubes, as above. Reviewed, dictated and finalized at location . ITE CARE PROVIDER Impression: Central congestive change and probable mild bibasilar pulmonary edema. Correlat e clinically for pneumonia. Support tubes, as above.
--- NOTE | ~2024-03-26 | XR_ITS ---
Portable chest x-ray Comparison: 04/12/2024 Clinical History: Respiratory failure Findings: Bilateral central venous lines and tracheostomy cannula in place. There is hazy bibasilar and perihilar airspace disease. Probable small right pleural effusion. Cardiomediastinal silhouette is stable. Bones and soft tissues are unremarkable. Impression: Mild to moderate probable pulmonary edema pattern. Correlate clinically for pneumonia. Minimal right pleural effusion. Support lines, as above. Reviewed, dictated and finalized at location . O TALK SHOW HOST Impression: Mild to moderate probable pulmonary edema pattern. Correlate clinically for pne umonia. Minimal right pleural effusion. Support lines, as above.
--- NOTE | ~2024-03-26 | XR_ITS ---
EXAMINATION: XR chest 1V portable DATE: 04/15/2024 06:17 INDICATION: Respiratory failure. TECHNIQUE: A single frontal view of the chest was obtained. COMPARISON: Chest single view 04/14/2024 FINDINGS: There are airspace opacities in the perihilar regions and lower lung zones. No pleural effu caridad or pneumothorax. Cardiomegaly is noted. A left internal jugular central venous catheter is seen with tip in the right brachiocephalic vein. A right upper extremity peripherally inserted central elza ous catheter (PICC) is seen with tip at the superior cavoatrial junction. A tracheostomy tube is note d. IMPRESSION: 1. Mildly worsened airspace opacities in the perihilar regions and lower lung zones, consistent with atelectasis versus pneumonia. 2. Cardiomegaly. 3. Left-sided central line tip in the right brachiocephalic vein. Reviewed, dictated and finalized at location A. NING SUPERVISOR IMPRESSION: 1. Mildly worsened airspace opacities in the perihilar regions and lower lung z ones, consistent with atelectasis versus pneumonia. 2. Cardiomegaly. 3. Left-sided central line tip in the right brachiocephalic vein.
--- NOTE | ~2024-03-26 | XR_ITS ---
XR chest 1V portable 04/01/2024 05:30 Indication: Respiratory distress Procedure: AP portable chest Comparison: 03/31/2024 Findings: Bilateral airspace disease, right greater than left. Endotracheal tube tip 3.1 cm above the que. NG tube in the stomach. No pneumothorax. Right subclavian PICC line tip in the SVC. Impression: 1: Bilateral asymmetric airspace disease slightly improved on the left, pneumonia versus edema. Reviewed, dictated and finalized at location A. NCED DEVELOPER Impression: 1: Bilateral asymmetric airspace disease slightly improved on the left, pneumon ia versus edema.
--- NOTE | 2024-03-26 22:18 | ECG_ITS ---
Test Date: 2024-03-26 22:21:10 Measurements Intervals [place] Rate: 110 P: 0 GA: 0 QRS: -39 QRSD: 118 T: 117 QT: 351 QTc: 477 Interpretive Statements ATRIAL FIBRILLATION WITH RAPID VENTRICULAR RESPONSE LEFT AXIS DEVIATION [QRS AXIS < -30] VOLTAGE CRITERIA FOR LVH [MEETS CRITERIA IN ONE OF: R(aVL), S(V1), R(V5), R(V5/V6)+S(V1)] POSSIBLE SEPTAL MYOCARDIAL INFARCTION , OF INDETERMINATE AGE [30 ms Q WAVE IN V1/V2] MODERATE T-WAVE ABNORMALITY, CONSIDER LATERAL ISCHEMIA [-0.1+ mV T-WAVE IN I/aVL/V5/V6] No previous ECG available for comparison Electronically Signed On 03-27-2024 22:13:10 [facility] [employer] by Beatrice Ramos M.D.
--- OUTSIDE RECORDS SUMMARY | 2024-03-26 23:30 | XMS_ITS | CONTINUITY OF CARE DOCUMENT ---
Author Name yenni hyman Address Unknown Organization [facility] Address [address] [place] [address] Phone [phone] Care Team Providers Care Finish Sander Name Role Phone Jonathan APARICIO, Mariusz Unavailable [phone] CARLOS ALBERTO APARICIO, LÓPEZ Unavailable [phone] LÓPEZ CARCAMO MD Unavailable [phone] PROBLEMS Condition Status Date Provider Notes Palpitations active Mitchel Dupont OBESITY active Zi Chang RN HYPERKALEMIA active iZ Chang RN CHEST PAIN- ca score zero 09/2020 active Ruddy Castillo MD HTN--echo 65%, PA pressure 3 8,, 08/2020 active Mariusz Castillo MD BRADYCARDIA, SINUS completed - Mariusz Castillo MD Sinus bradycardia active Mariusz Castillo MD Edema varicose veins active Mariusz Castillo MD Endometrial cancer s/p hysterectomy & radiation active Mariusz Castillo MD Prediabetes completed - Mariusz Castillo MD Hyperlipidemia active Mariusz Castillo MD Diabetes mellitus active Mariusz Castillo MD Coronavirus infection 04/2019. completed 21/04/27 - Mariusz Castillo MD Vaccination--covid vaccine, pfizer 04/2020 completed - Mitchel Dupont KAREN--severe 09/2020 not on cpap active Benedicto Castillo MD Body mass index (BMI) 45.0-4 9.9, adult active Mitchel Nidiadelisa Atrial fibrillation active Mitchel Ahanurag Cardiology examination active Brodie Joseph ENCOUNTERS Date Type Provider Location Encounter Diag nosis - In-person encounter Office Visit Mariusz Castillo MD [facility] Cardiology examination - In-person encounter Office Visit Mariusz Castillo MD [facility] Atrial fibrillation - In-person encounter Office Visit Mariusz Castillo MD [facility] Body mass index (BMI) 45.0-49.9, adult - In-person encounter Office Visit Mariusz Castillo MD [facility] Coronavirus infection 04/2019. - In-person encounter Office Visit Mariusz Castillo MD [facility] Vaccination--covid vaccine, pfizer 04/2020 - In-person encounter Office Visit Mariusz Castillo MD [facility] - In-person encounter Office Visit Mariusz Castillo MD [facility] - In-person encounter Office Visit Mariusz Castillo MD [facility] KAREN--severe 09/2020 not on cpap - In-person encounter Office Visit Mariusz Castillo MD [facility] CHEST PAIN- ca score zero 09/2020HTN--echo 65%, PA pressure 38,, 08/2020 - In-person encounter Office Visit Mariusz Castillo MD [facility] Prediabetes - In-person encounter Office Visit Mariusz Castillo MD [facility] Diabetes mellitusCoronavirus infection 04/2019. - In-person encounter Office Visit Mariusz Castillo MD [facility] Endometrial cancer s/p hysterectomy & radiationHyperlipidemia - In-person encounter Office Visit Mariusz Castillo MD [facility] - In-person encounter Office Visit Mariusz Castillo MD [facility] - In-person encounter Office Visit Mariusz Castillo MD [facility] Edema varicose veins - In-person encounter Office Visit Mariusz Castillo MD [facility] HTN--echo 65%, PA pressure 38,, RADYCARDIA, SINUSSinus bradycardia - In-person encounter Office Visit Mariusz Castillo MD [facility] - In-person encounter Office Visit Mariusz Castillo MD [facility] - In-person encounter Office Visit Mariusz Castillo MD [facility] - In-person encounter Office Visit Mariusz Castillo MD [facility] - In-person encounter Office Visit Mariusz Castillo MD [facility] HTN--echo 65%, PA pressure 38,, 08/2020 - In-person encounter Office Visit Mariusz Castillo MD [facility] Office - In-person encounter Office Visit Mariusz Castillo MD [facility] CHEST PAIN- ca score zero 09/2020HTN--echo 65%, PA pressure 38,, 08/2020 VITAL SIGNS Date Observation Value Provider Body Mass Index (Ratio) 45.60 kg/m2 Benedicto Castillo MD blood pressure, diastolic 85 mm[Hg] Casey Pepper blood pressure, systolic 144 mm[Hg] Sharri Pepper oxygen saturation, oximetry 99 % Julee Pepper pulse rate 95 /min Julee Pepper respiratory rate E&M 14 /min Julee Pepper weight E&M 327 [lb_av] Julee Pepper height E&M 71 [in_i] Julee Pepper blood pressure, cuff size large Casey coronado Pepper Body Mass Index (Ratio) 45.74 kg/m2 Benedicto Castillo MD blood pressure, diastolic 82 mm[Hg] Casey coronado [place] blood pressure, systolic 115 mm[Hg] Sharri wyman [place] oxygen saturation, oximetry 95 % Julee [place] pulse rate 87 /min Julee [place] respiratory rate E&M 14 /min Julee [place] weight E&M 328 [lb_av] Julee [place] height E&M 71 [in_i] Julee [place] blood pressure, cuff size large Casey coronado Pepper Body Mass Index (Ratio) 46.24 kg/m2 Benedicto Castillo MD blood pressure, diastolic 70 mm[Hg] Ri abel Dupont blood pressure, systolic 110 mm[Hg] Yoselin john Dupont pulse rate 81 /min Nile Chapa oxygen saturation, oximetry 97 % Nile Chapa weight E&M 331.6 [lb_av] Nile Chapa Body Mass Index (Ratio) 45.18 kg/m2 Benedicto Castillo MD blood pressure, cuff size large Carmelo lennon blood pressure, diastolic 74 mm[Hg] Carmelo lennon blood pressure, systolic 130 mm[Hg] Bunny natarajan pulse rate 86 /min Avi oxygen saturation, oximetry 97 % Avi respiratory rate E&M 16 /min Avi weight E&M 324 [lb_av] Avi chevy y height E&M 71 [in_i] Avi Body Mass Index (Ratio) 44.49 kg/m2 Benedicto Castillo MD blood pressure, diastolic 59 mm[Hg] Delia [facility] blood pressure, systolic 145 mm[Hg] Medina [facility]Logic blood pressure, cuff size large Carmelo blood pressure, diastolic 59 mm[Hg] Carmelo [facility] blood pressure, systolic 145 mm[Hg] Bunny [facility] pulse rate 52 /min [facility] oxygen saturation, oximetry 96 % [facility] respiratory rate E&M 12 /min [facility] weight E&M 319 [lb_av] [facility] height E&M 71 [in_i] [facility] Body Mass Index (Ratio) 42.67 kg/m2 Benedicto Castillo MD oxygen saturation, oximetry 96 % Juana Villanueva weight E&M 306 [lb_av] Juanasuleman Villanueva blood pressure, cuff size large Casey fabian Villanueva blood pressure, diastolic 65 mm[Hg] An fabian Villanueva blood pressure, systolic 133 mm[Hg] Any suleman Villanueva respiratory rate E&M 16 /min Juana webster pulse rate 50 /min Juana Rich height E&M 71 [in_i] Juanasuleman Villanueva Body Mass Index (Ratio) 43.85 kg/m2 Benedicto Castillo MD blood pressure, cuff size large Ta vilma Garret blood pressure, diastolic 60 mm[Hg] Ta vilma Van blood pressure, systolic 138 mm[Hg] Stock javon Combs oxygen saturation, oximetry 96 % Makayla Garret respiratory rate E&M 16 /min Makayla Garret pulse rate 75 /min Makayla Van weight E&M 314.4 [lb_av] Makayla Van height E&M 71 [in_i] Makayla Van Body Mass Index (Ratio) 46.30 kg/m2 Benedicto Castillo MD blood pressure, diastolic -1 mm[Hg] Li nkLogic blood pressure, systolic 140 mm[Hg] Medina kLogic blood pressure, diastolic 82 mm[Hg] Ca therine Cem blood pressure, systolic 140 mm[Hg] Cat herine Cem oxygen saturation, oximetry 98 % Shefali [place] respiratory rate E&M 16 /min Catheri ne [place] pulse rate 68 /min Shefali [place] weight E&M 332 [lb_av] Shefali [place] blood pressure, cuff size large Ca therine Cem height E&M 71 [in_i] Shefali [place] Body Mass Index (Ratio) 46.30 kg/m2 Benedicto Castillo MD blood pressure, cuff size large Ke rri Gruenenfelder blood pressure, diastolic 80 mm[Hg] Ke rri Gruenenfelder blood pressure, systolic 148 mm[Hg] Ker ri Arpitnenftod oxygen saturation, oximetry 96 % Cortney Grshimanenfelder respiratory rate E&M 16 /min Cortney G ruenenfelder pulse rate 64 /min Cortney Gruenenfe lder weight E&M 332 [lb_av] Cortney Gruenenfe lder height E&M 71 [in_i] Cortney Arpitnenfe lder Body Mass Index (Ratio) 46.02 kg/m2 Benedicto Castillo MD oxygen saturation, oximetry 98 % Chastity Em blood pressure, diastolic 84 mm[Hg] Ch astity Em blood pressure, systolic 158 mm[Hg] Lauren stity Em pulse rate 79 /min [facility] E&M 16 /min Chastit y Em weight E&M 330 [lb_av] [facility] height E&M 71 [in_i] [facility] Body Mass Index (Ratio) 45.88 kg/m2 Benedicto Castillo MD blood pressure, cuff size large Ke rri [facility] blood pressure, diastolic 90 mm[Hg] Ke rri Markosuenenfwhite river junction [facility] centerer blood pressure, systolic 142 mm[Hg] Cece [facility], oximetry 97 % Cortney Stephanienfwhite river junction [facility] cent[facility] respiratory rate E&M 18 /min Cortney G ruenenfelder pulse rate 55 /min Cortney Arpitnenfe er weight E&M 329 [lb_av] Cortney Grshimanenfe er height E&M 71 [in_i] Cortney Markosshimanenfe er Body Mass Index (Ratio) 46.86 kg/m2 Benedicto Castillo MD respiratory rate E&M 16 /min Tonsha Leo weight E&M 336 [lb_av] Tonsha Leo blood pressure, diastolic 65 mm[Hg] To nsha Leo blood pressure, systolic 108 mm[Hg] Ton viviana Leo pulse rate 69 /min Tonsha Leo oxygen saturation, oximetry 96 % Tonsha Leo height E&M 71 [in_i] Tonsha Leo Body Mass Index (Ratio) 47.00 kg/m2 Benedicto Castillo MD blood pressure, cuff size large Cr margie Rich blood pressure, diastolic 60 mm[Hg] Cr margie Rich blood pressure, systolic 130 mm[Hg] Alan aaron Rich oxygen saturation, oximetry 96 % Kristine Villanueva respiratory rate E&M 17 /min Kristine Villanueva pulse rate 76 /min Kristine barry weight E&M 337 [lb_av] Kristine barry height E&M 71 [in_i] Kristine barry Body Mass Index (Ratio) 45.18 kg/m2 Benedicto Castillo MD blood pressure, cuff size large Ke sandra Meza blood pressure, diastolic 100 mm[Hg] Ke rrchristos Meza blood pressure, systolic 140 mm[Hg] Cece Meza oxygen saturation, oximetry 97 % Cortney Meza respiratory rate E&M 20 /min Cortney oconnell pulse rate 70 /min Cortney hawthorneer weight E&M 324 [lb_av] Cortney hawthorneer height E&M 71 [in_i] Cortney hawthorneer Body Mass Index (Ratio) 46.44 kg/m2 Benedicto Castillo MD blood pressure, cuff size large Yudy Estrada blood pressure, diastolic 80 mm[Hg] Yduy Estrada blood pressure, systolic 112 mm[Hg] Bryce Estrada pulse rate 55 /min Rekha Estrada respiratory rate E&M 16 /min Rekha Estrada oxygen saturation, oximetry 96 % Rekha Estrada weight E&M 333 [lb_av] Rekha Estrada height E&M 71 [in_i] Rekha Estrada blood pressure, diastolic 80 mm[Hg] Ke rri Derrick blood pressure, systolic 112 mm[Hg] Cece Finneganrojelioer pulse rate 65 /min Cortney Allred lder oxygen saturation, oximetry 94 % Cortney Finneganrojelioer respiratory rate E&M 16 /min Cortney Damcio earlmarkmacario Body Mass Index (Ratio) 45.60 kg/m2 Trista sher Derrick weight E&M 327 [lb_av] Cortney Allred er blood pressure, diastolic 67 mm[Hg] Me diaz Fox blood pressure, systolic 138 mm[Hg] Melissa elda Fox Body Mass Index (Ratio) 45.88 kg/m2 Marguerite ssa Fox pulse rate 60 /min Rahel Fox oxygen saturation, oximetry 97 % Rahel Fox respiratory rate E&M 15 /min Rahel Fox weight E&M 329 [lb_av] Rahel Fox Body Mass Index (Ratio) 47.17 kg/m2 Marguerite ssa Fox blood pressure, diastolic 88 mm[Hg] Me diaz Fox blood pressure, systolic 156 mm[Hg] Melissa elda oFx pulse rate 54 /min Rahel Fox oxygen saturation, oximetry 98 % Rahel Fox respiratory rate E&M 16 /min Rahel Fox weight E&M 337 [lb_av] Rahel Fox Body Mass Index (Ratio) 47.31 kg/m2 Bull Clemons blood pressure, diastolic, left arm 80 mm [Hg] Joaquina Clemons blood pressure, systolic, left arm 144 mm [Hg] Joaquina Clemons blood pressure, diastolic, right arm 69 m m[Hg] Joaquina Clemons blood pressure, systolic, right arm 144 m m[Hg] Joaquina Clemons blood pressure, diastolic 80 mm[Hg] Mathew Deonte blood pressure, systolic 146 mm[Hg] Kavon foster Deonte pulse rate 53 /min Kavoncarolyncasey Deonte oxygen saturation, oximetry 97 % Joaquina Deonte respiratory rate E&M 16 /min Kavoncarolyncasey Deonte weight E&M 338 [lb_av] Kavonkristin Clemons height E&M 71 [in_i] Kavonkristin Clemons blood pressure, diastolic 87 mm[Hg] Carmelo Chang RN blood pressure, systolic 152 mm[Hg] Zi Chang RN pulse rate 55 /min Zi Chang RN oxygen saturation, oximetry 97 % Zi Chang RN respiratory rate E&M 18 /min Zi horne RN weight E&M 336 [lb_av] Zi Chang RN blood pressure, diastolic 83 mm[Hg] Chevy Beth blood pressure, systolic 155 mm[Hg] Stephon Beth pulse rate 55 /min Lindsay Beth oxygen saturation, oximetry 97 % Lindsay Beth respiratory rate E&M 18 /min Paul Beth weight E&M 345 [lb_av] Lindsay Beth blood pressure, diastolic 63 mm[Hg] Carmelo Chang RN blood pressure, systolic 123 mm[Hg] Zi Chang RN pulse rate 52 /min Zi Chang RN oxygen saturation, oximetry 97 % Zi Chang RN respiratory rate E&M 18 /min Zi horne RN weight E&M 349 [lb_av] Zi Chang RN ALLERGIES Allergy Name Onset Date Reaction Criticality Status ATORVASTATIN sweating sweating High Criticality active RESULTS Date Observation Value Provider Reference Range Interpretation Location cholesterol, non-HDL, total 127 MG/DL (CALC) [facility] <130 Normal cholesterol/HDL ratio, serum, percent 3.2 (calc) [facility] <5.0 Normal LDL cholesterol, serum 111 MG/DL (CALC) [facility] High triglyceride, serum, fasting 72 mg/dL [facility] <150 Normal HDL cholesterol, serum 59 mg/dL [facility] > OR = 50 Normal cholesterol, serum 186 mg/dL [facility] <200 Normal thyroid stimulating hormone, serum 3.600 ??IU/ML [facility] 0.270 - 4.200 very low density lipoproteins 24.0 mg/dL [facility] 5.0 - 40.0 LDL/HDL (low-density lipoprotein/high-den sity lipoprotein) ratio 2.2 RATIO [facility] - lipoprotein, beta, serum, point, quantitative, calculated 122.0 (?) [facility] 0.0 - 100.0 High HDL cholesterol, serum 55.0 mg/dL [facility] 45.0 - 65.0 cholesterol, serum 201.0 mg/dL [facility] 0.0 - 200.0 High triglyceride, serum, fasting 120.0 mg/dL [facility] 0.0 - 150.0 anion gap, serum 11.9 [facility] - albumin/globulin ratio, serum 2.5 g/dL [facility] 1.1 - 2.5 globulin, serum 2.9 [facility] 2.3 - 3.8 urea nitrogen/creatinine ratio, serum 18.8 [facility] - Estimated Glomerular Filtration Rate (calc) 77.2 (?) [facility] 59.0 - chloride, serum 99.1 mmol/L [facility] 98.0 - 107.0 potassium, serum 4.0 mmol/L [facility] 3.5 - 5.1 sodium, serum 141.0 mmol/L [facility] 136.0 - 145.0 creatinine, serum 0.8 mg/dL [facility] 0.5 - 1.0 carbon dioxide, venous blood 30.0 mmol/L [facility] 23.0 - 31.0 albumin, serum 4.2 g/dL [facility] 3.5 - 5.2 calcium, serum 10.3 mg/dL [facility] 8.6 - 10.2 High aspartate aminotransferase (SGOT), serum 14.0 1/L [facility] 0.0 - 32.0 alkaline phosphatase, serum 74.0 1/L [facility] 40.0 - 130.0 alanine aminotransferase (SGPT), serum 19.0 1/L [facility] 0.0 - 33.0 protein, total, serum 7.1 g/dL [facility] 6.6 - 8.7 bilirubin, serum, total 0.4 mg/dL [facility] 0.0 - 1.2 urea nitrogen, blood 15.0 mg/dL [facility] 8.0 - 23.0 blood glucose, random 90.0 mg/dL [facility] 74.0 - 99.0 red blood cell distribution width, size density 44.7 fL [facility] - immature granulocytes, percentage of total cells, blood 0.3 % [facility] - nucleated red blood cells as percent of blood leukocytes 0.0 % [facility] - red blood cell (erythrocyte) count, per high power field 0.0 10*3/UL [facility] eosinophils as percent of blood leukocytes 3.6 % [facility] - neutrophils as percent of blood leukocytes 47.3 % [facility] - Absolute Neutrophils 3.3 CELLS/UL [facility] 1.5 - 7.8 basophils as percent of blood leukocytes 0.6 % [facility] - Absolute Basophils 0.0 CELLS/UL [facility] 0.0 - 0.2 monocytes as percent of blood leukocytes 11.0 % [facility] - Absolute Monocytes 0.8 CELLS/UL [facility] 0.2 - 1.0 lymphocytes as percent of blood leukocytes 37.2 % [facility] - Absolute Lymphocytes 2.6 CELLS/UL [facility] 0.9 - 3.9 mean platelet volume 11.2 (?) [facility] - platelet count 264.0 THOUSAND/ UL [facility] 100.0 - 400.0 mean corpuscular hemoglobin concentration, RBC 31.7 G/DL [facility] 31.0 - 38.0 mean corpuscular hemoglobin, RBC 28.6 pg [facility] 25.0 - 35.0 mean corpuscular volume, RBC 90.1 fL [facility] 75.0 - 100.0 hematocrit, blood 42.9 % [facility] 35.0 - 55.0 hemoglobin, blood 13.6 g/dL [facility] 11.5 - 16.5 erythrocyte count, whole blood 4.8 MILLION/U L [facility] 3.5 - 5.5 hemoglobin A1C, blood, as % of total hemoglobin 6.1 % [facility] 4.0 - 6.0 High platelet count 310 10*3/mm3 [facility] hematocrit, blood 38.3 % [facility] triglyceride, serum, fasting 164 mg/dL [facility] HDL cholesterol, serum 43 mg/dL [facility] cholesterol/HDL ratio, serum 4.2 [facility] lipoprotein, beta, serum, point, quantitative, calculated 103 mg/dL [facility] cholesterol, serum 179 mg/dL [facility] thyroid stimulating hormone, serum 2.51 u[IU]/mL [facility] alanine aminotransferase (SGPT), serum 22 1/L [facility] aspartate aminotransferase (SGOT), serum 14 1/L [facility] blood glucose, random 121 mg/dL [facility] creatinine, serum 0.81 mg/dL Hilario yMers urea nitrogen, blood 15 mg/dL Hilario Myers potassium, serum 3.8 mmol/L Hilario Myers sodium, serum 137 mmol/L Hilario Myers HISTORY OF MEDICATION USE Medication Status Instructions Dates Provider Indications Com mentjhonny Mounjaro 2.5 mg/0.5 mL pen injector active INJECT 1 PEN INJECTOR SUBCUTANEOUSLY ONCE A WEEK FOR 4 WEEKS. IF TOLERATED WILL INCREASE DOSE 04/03 Mitchel Ahmedzai Eliquis 5 mg tablet active TAKE 1 TABLE T BY MOUTH TWICE DAILY 04/03 Mitchel Ahmedzai ezetimibe 10 mg tablet active Take 1 tablet by mouth once a day 09/20 Cortney Swensonunjaro 2.5 mg/0.5 mL pen injector completed INJECT 2.5 MG UNDER THE SKIN ONE DAY A WEEK FOR 4 WEEKS, IF TOLERTED WILL INCREASE DOSAGE 03/30 - 09/27 Mitchel Dupont rosuvastatin 20 mg tablet active TAKE 1 TABLET BY MOUTH EVERY DAY Yissel Henning atorvastatin 20 mg tablet completed Take 1 tablet by mouth every evening 09/29 - Mariusz Castillo MD metoprolol tartrate 25 mg tablet active Take 1 tablet by mouth twice a day 09/18 Cortney Meza ezetimibe 10 mg tablet completed TAKE 1 TABLET BY MOUTH EVERY DAY 06/16 - 09/20 Cortney Meza losartan-hydrochlor othiazide 100-25 mg tablet active TAKE 1 TABLET BY MOUTH EVERY DAY 11/02 Avi Chin metformin 500 mg tablet active TAKE 1 TABLET BY MOUTH TWICE A DAY 10/11 Debora Santana metoprolol tartrate 25 mg tablet completed TAKE 1 TABLET BY MOUTH TWICE DAILY 09/03 - 09/18 Myrna Rolle ezetimibe 10 mg tablet completed TAKE 1 TABLET BY MOUTH EVERY DAY 04/22 - 04/22 Mitchel Dupont losartan-hydrochlor othiazide 100-25 mg tablet completed Take 1 tablet by mouth once a day 11/20 - 11/02 Cortney Meza losartan-hydrochlor othiazide 100-25 mg tablet completed Take 1 tablet by mouth every morning as directed 09/25 - 11/20 Mitchel Dupont metformin 500 mg tablet completed 1 tablet by mouth twice a day 03/19 - 10/11 Debora Santana magnesium oxide 400 mg magnesium tablet active Take 1 twice a week 03/19 Cortney Meza VITAMIN C PLUS TABLET active once a day 03/19 Cortney Meza cholecalciferol (vitamin D3) 1,250 mcg (50,000 unit) capsule completed 1 capsule by mouth once a week 03/19 - 09/29 Mitchel Dupont FISH OIL CAPSULE completed 06/21 - 09/17 Cortney Meza CALCIUM CAPSULE active once a day 03/19 Cortney Meza Vitamin B-12 1,000 mcg tablet active 1 tablet once a day 03/19 Cortney Meza GNP VITAMIN C/CECILLE HIPS TABLET completed 06/22 - 09/17 Cortney Meza aspirin 325 mg tablet active 1 tablet once a day Zi Chang RN hydrochlorothiazide 25 mg tablet completed 1 tablet once a day - 09/25 Zi Chang RN KLOR-CON M20 completed daily - 09/17 Zi Chang RN metoprolol tartrate 25 mg tablet completed 1 tablet twice a day 06/25 - 09/03 Tania Carrasco SOCIAL HISTORY Date Observation Value Provider drug use no Brodie Joseph alcohol use no Brodie Joseph passive cigarette sm gato exposure no Brodie Joseph smoking status Never smoker Brodie Joseph drug use no Mitchel Dupont alcohol use no Mitchel Dupont passive cigarette sm gato exposure no Mitchel Tangchristos smoking status Never smoker Mitchel Tangchristos drug use no Mitchel Tangchristos alcohol use no Mitchel Tangchristos passive cigarette sm gato exposure no Mitchel Tangchristos smoking status Never smoker Mitchel Tangchristos drug use no Mitchel Tangchristos alcohol use no Mitchel Tangchristos passive cigarette sm gato exposure no Mitchel Tangchristos smoking status Never smoker Mitchel Tangchristos social history reviewed E&M revi ewed - no changes required Mitchel anurag drug use no Ely Ventimig deborah [facility] alcohol use no Ely Ventimig deborah [facility] physical exercise, frequency, days per week no Juanasuleman Villanueva caffeine use, averag e drinks per day yes Jauna Villanueva passive cigarette sm gato exposure no Juana Villanueva smoking status Never smoker Juana Villanueva social history E&M Marital Statu s: L dion with family/friends E thnicity: Smoking History: Carlee segura has never smoked. Mitchel Dupont smoking status Never smoker Makayla Garret social history reviewed E&M revi ewed - no changes required Mitchel Dupont physical exercise, frequency, days per week no Shefali Cem caffeine use, averag e drinks per day yes Shefali Cem passive cigarette sm gaot exposure no Shefali Arlington smoking status Never smoker Shefali Alia s social history reviewed E&M revi ewed - no changes required Mitchel Dupont social history E&M Marital Statu s: L dion with family/friends E thnicity: Smoking History: Carlee segura has never smoked. Mitchel Dupont physical exercise, frequency, days per week no Cortney Arpitnecandidorojelioer caffeine use, averag e drinks per day yes Cortney Arpitmasoncandidorojelioer passive cigarette sm gato exposure no Cortney Arpitmasoncandidorojelioer smoking status Never smoker Cortney Burrowsricardo dimas social history reviewed E&M revi ewed - no changes required Mitchel Dupont physical exercise, frequency, days per week no Chastity Em caffeine use, averag e drinks per day yes Chastity Em passive cigarette sm gato exposure no Chastity Em smoking status Never smoker Chastity Hogu e social history E&M Marital Statu s: L dion with family/friends E thnicity: S moking History: Carlee segura has never smoked. Mariusz Castillo MD social history reviewed E&M revi ewed - no changes required Mariusz Castillo MD social history E&M Marital Statu s: L dion with family/friends E thnicity: Smoking History: Carlee segura has never smoked. Napoleon Lancaster social history reviewed E&M revi ewed - no changes required Napoleon Lancaster physical exercise, frequency, days per week no Cortney Markossmithacandidorojelioer caffeine use, averag e drinks per day yes Cortney Munosnolivia passive cigarette sm gato exposure no Cortney Burrowsmicah smoking status Never smoker Cortney Brownmoises dimas social history E&M Marital Statu s: L dion with family/friends E thnicity: Smoking History: Carlee segura has never smoked. Mariusz Castillo MD social history reviewed E&M revi ewed - no changes required Mariusz Castillo MD smoking status Never smoker Tonsha Leo physical exercise, frequency, days per week no [facility] caffeine use, averag e drinks per day yes [facility] passive cigarette sm gato exposure no [facility] social history reviewed E&M revi ewed - no changes required Mariusz Castillo MD smoking status Never smoker Kristine Osborne [facility] number of grandchildren Mariusz Castillo MD T reyes Castillo MD social history E&M Marital Statu s: L dion with family/friends E thnicity: Smoking History: P imelda has never smoked. Mariusz Castillo MD social history reviewed E&M revi ewed - no changes required Mariusz Castillo MD physical exercise, frequency, days per week no Cortney Meza alcohol counseling no Cortney hess In the past 3 months , have you been waking up wanting to use drugs? (CAGE substance use question #4) N Cortney Meza In the past 3 months , have you felt guilty or bad about using drugs? (CAGE substance use question #3) N Cortney Meza In the past 3 months , has anyone annoyed you by telling you to cut down or stop using drugs? (CAGE substance use question #2) N Cortney Meza In the past 3 months , have you felt you should cut down or stop using drugs?(CAGE substance use question #1) N Cortney Meza alcohol use, average drinks per day social basis only Cortney Meza alcohol use no Cortney jacobsen caffeine use, averag e drinks per day yes Cortney Meza drug use none Cortney jacobsen passive cigarette sm gato exposure no Cortney Meza smoking status Never smoker Cortney dimas social history reviewed E&M revi ewed - no changes required Mariusz Castillo MD physical exercise, frequency, days per week no Rekha Estrada alcohol counseling no Rekhasuleman ramirez In the past 3 months , have you been waking up wanting to use drugs? (CAGE substance use question #4) N Rekha Estrada In the past 3 months , have you felt guilty or bad about using drugs? (CAGE substance use question #3) N Rekha Estrada In the past 3 months , has anyone annoyed you by telling you to cut down or stop using drugs? (CAGE substance use question #2) N Rekha Estrada In the past 3 months , have you felt you should cut down or stop using drugs?(CAGE substance use question #1) N Rekha Estrada alcohol use, average drinks per day social basis only Rekha Estrada alcohol use no Rekha Estrada caffeine use, averag e drinks per day yes Rekha Estrada drug use none Rekhasuleman Estrada passive cigarette sm gato exposure no Rekha Estrada smoking status Never smoker Rekha Estrada social history E&M Marital Statu s: L dion with family/friends E thnicity: Smoking History: P imelda has never smoked. Mariusz Castillo MD social history reviewed E&M revi ewed - no changes required Mariusz Castillo MD alcohol use no Cortney jacobsen smoking status Never smoker Cortney dimas social history reviewed E&M revi ewed - no changes required Mariusz Castillo MD physical exercise, frequency, days per week no Rahel Fox alcohol counseling no Rahel Landeros In the past 3 months , have you been waking up wanting to use drugs? (CAGE substance use question #4) N Rahel Fox In the past 3 months , have you felt guilty or bad about using drugs? (CAGE substance use question #3) N Rahel Fox In the past 3 months , has anyone annoyed you by telling you to cut down or stop using drugs? (CAGE substance use question #2) N Rahel Fox In the past 3 months , have you felt you should cut down or stop using drugs?(CAGE substance use question #1) N Rahel Fox alcohol use, average drinks per day social basis only Rahel Fox caffeine use, averag e drinks per day yes Rahel Fox drug use none Rahel Fox passive cigarette sm gato exposure no Rahel Fox smoking status Never smoker Rahel Gregorio moises social history reviewed E&M reviewed Mariusz Castillo MD social history reviewed E&M reviewed Mariusz Castillo MD passive cigarette sm gato exposure no Joaquina Clemons alcohol counseling no Joaquina son In the past 3 months , have you been waking up wanting to use drugs? (CAGE substance use question #4) Moises Clemons In the past 3 months , have you felt guilty or bad about using drugs? (CAGE substance use question #3) Moises Clemons In the past 3 months , has anyone annoyed you by telling you to cut down or stop using drugs? (CAGE substance use question #2) Moises Clemons In the past 3 months , have you felt you should cut down or stop using drugs?(CAGE substance use question #1) Moises Clemons smoking status never smoker Joaquina peña social history reviewed E&M reviewed Mariusz Castillo MD social history reviewed E&M reviewed Mariusz Castillo MD drug use none Mariusz Castillo MD social history reviewed E&M reviewed Mariusz Castillo MD social history E&M Marital Statu s: L dion with family/friends E thnicity: Zi Chang RN social history reviewed E&M reviewed Zi Chang RN physical exercise, frequency, days per week no [employer] caffeine use, averag e drinks per day yes [employer] alcohol use, average drinks per day social basis only [employer] smoking status Non-smoker [facility] MENTAL STATUS Date Observation Value Provider assessment of judgme nt and insight E&M Alert and oriented to time, place and person. Mood and affect are normal. Mariusz Castillo MD assessment of judgme nt and insight E&M Alert and oriented to time, place and person. Mood and affect are normal. Mariusz Castillo MD assessment of judgme nt and insight E&M Alert and oriented to time, place and person. Mood and affect are normal. Mariusz Castillo MD assessment of judgme nt and insight E&M Alert and oriented to time, place and person. Mood and affect are normal. Mariusz Castillo MD assessment of judgme nt and insight E&M Alert and oriented to time, place and person. Mood and affect are normal. Mariusz Castillo MD assessment of judgme nt and insight E&M Alert and oriented to time, place and person. Mood and affect are normal. Zi Chang RN FAMILY HISTORY Family Member Condition Mother Family History Unkno wn Father Family History of Co ronary Artery Disease: Father Negative FH of Coron brent Artery Disease INSURANCE PROVIDERS Payer name Policy type / Coverage type [employer] libertarian ID [facility] [id number] [place] MEDIC[place] Medicare [id number] ADVANCE DIRECTIVES Name Date DISCUSSED - NO DECISION MADE TREATMENT PLAN Date Name Performer [id number],Mitchel Barry i [id number],Mitchel Barry i [id number],Mitchel Barry i [id number],Mitchel Barry i [id number],SMitchel i [id number],SMitchel i [id number],SMitchel i [id number],C,H gbA1C has been ordered per PCP. May consider farxiga or Jardiance if elevated for CV prevention and LE edema H er updated medication list for this problem includes: Losartan-hydrochlorothiazide 100-25 Mg Tablet (Losartan-hydrochlorothiazide) ..... Take 1 tablet by mouth every day Metformin 500 Mg Tablet (Metformin) ..... Take 1 tablet by mouth twice a day Aspirin 325 Mg Tablet (Aspirin) ..... 1 tablet once a day [facility] [id number],C,e ncouraged compression and elevation [facility] [id number],C,o n zetia. Will update lipids H er updated medication list for this problem includes: Ezetimibe 10 Mg Tablet (Ezetimibe) ..... Take 1 tablet by mouth every day Orders: 9 9214 MOD 30-39min (CPT-25210) L IPID PANEL (7958) [facility] [id number],C,c ontrolled. asymptomatic at baseline. Will continue low dose BB and monitor H er updated medication list for this problem includes: Metoprolol Tartrate 25 Mg Tablet (Metoprolol tartrate) ..... Take 1 tablet by mouth twice daily Aspirin 325 Mg Tablet (Aspirin) ..... 1 tablet once a day [facility] [id number],C,B lood pressure controlled 133/65 today. Will continue to monitor at home. continue present medication regimen H er updated medication list for this problem includes: Losartan-hydrochlorothiazide 100-25 Mg Tablet (Losartan-hydrochlorothiazide) ..... Take 1 tablet by mouth every day Metoprolol Tartrate 25 Mg Tablet (Metoprolol tartrate) ..... Take 1 tablet by mouth twice daily Aspirin 325 Mg Tablet (Aspirin) ..... 1 tablet once a day Ely Childers [employer]ICE [employer] [id number],S, Mitchel medza i [id number],B, Mitchel medza i [id number],S, Mitchel medza i [id number],S, Mitchel medza i [id number],S, Mitchel medza i [id number],S, Mitchel medza i [id number],S, Mitchel medza i [id number],S, Mitchel medza i [id number],S, [facility] [id number],S, [facility] [id number],S, Mitchel medza i [id number],B, [facility] [id number],S, Mariusz Castillo MD [id number],S, Mariusz Castillo MD [id number],S, Mariusz Castillo MD [id number],S, Mariusz Castillo MD [id number],S, Mariusz Castillo MD [id number],S, Mariusz Castillo MD [id number],S, [facility] [id number],S, [facility] [id number],S, [facility] i [id number],S, [facility] [id number],S, Mitchel Tang i [id number],B, Mariusz Castillo MD [id number],S, Mariusz Castillo MD [id number],S, Mariusz Castillo MD [id number],S, Mariusz Castillo MD [id number],W, Mariusz Castillo MD [id number],B, Mariusz Castillo MD Cardiology:This visi t has been a part of the consistent, comprehensive, and ongoing management of the chronic medical condition(s) listed above for the patient. Mariusz Castillo MD Cardiology [facility] Joseph Cardiology Bro[facility] Joseph Cardiology Brodie Joseph Cardiology Brodie Joseph Cardiology:This visi t has been a part of the consistent, comprehensive, and ongoing management of the chronic medical condition(s) listed above for the patient. Brodie Joseph Cardiology Brodie Joseph Cardiology: O rders: C OMPREHENSIVE METABOLIC PANEL, W/EGFR (47645) T SH, free T4, total T3 (7444) P ROBNP, N TERMINAL (80876) H EMOGLOBIN A1c (496) Mitchel Dupont Cardiology: O rders: C OMPREHENSIVE METABOLIC PANEL, W/EGFR (83413) T SH, free T4, total T3 (7444) P ROBNP, N TERMINAL (03885) H EMOGLOBIN A1c (496) BP today: 115/82 P rior BP: 110/70 (09/28/2023) Labs Reviewed: C reat: 0.8 (07/09/2015) C hol: 186 (07/16/2022) HDL: 59 (07/16/2022) LDL: 111 MG/DL (CALC) (07/16/2022) T (07/16/2022) Her updated medication list for this problem includes: Metoprolol Tartrate 25 Mg Tablet (Metoprolol tartrate) ..... Take 1 tablet by mouth twice a day Losartan-hydrochlorothiazide 100-25 Mg Tablet (Losartan-hydrochlorothiazide) ..... Take 1 tablet by mouth every day Aspirin 325 Mg Tablet (Aspirin) ..... 1 tablet once a day Mitchel Dupont Cardiology: O rders: C OMPREHENSIVE METABOLIC PANEL, W/EGFR (84044) T SH, free T4, total T3 (7444) P ROBNP, N TERMINAL (63100) H EMOGLOBIN A1c (496) Mitchel Dupont Cardiology: O rders: C OMPREHENSIVE METABOLIC PANEL, W/EGFR (39324) T SH, free T4, total T3 (7444) P ROBNP, N TERMINAL (19979) H EMOGLOBIN A1c (496) Her updated medication list for this problem includes: Metoprolol Tartrate 25 Mg Tablet (Metoprolol tartrate) ..... Take 1 tablet by mouth twice a day Aspirin 325 Mg Tablet (Aspirin) ..... 1 tablet once a day Mitchel Dupont Cardiology: O rders: C OMPREHENSIVE METABOLIC PANEL, W/EGFR (11060) T SH, free T4, total T3 (7444) P ROBNP, N TERMINAL (65287) H EMOGLOBIN A1c (496) Her updated medication list for this problem includes: Metoprolol Tartrate 25 Mg Tablet (Metoprolol tartrate) ..... Take 1 tablet by mouth twice a day Aspirin 325 Mg Tablet (Aspirin) ..... 1 tablet once a day Mitchel Dupont Cardiology: O rders: C ardioversion (19385) T EE (24524) D oppler echocardiography color flow (85215) D oppler echocardiography, with spectral display (66309) C BC (INCLUDES DIFF/PLT) (6399) L IPID PANEL (7600) P ROTHROMBIN TIME WITH INR (8847) C OMPREHENSIVE METABOLIC PANEL, W/EGFR (20146) T SH, free T4, total T3 (7444) P ROBNP, N TERMINAL (61407) H EMOGLOBIN A1c (496) Her updated medication list for this problem includes: Metoprolol Tartrate 25 Mg Tablet (Metoprolol tartrate) ..... Take 1 tablet by mouth twice a day Aspirin 325 Mg Tablet (Aspirin) ..... 1 tablet once a day [facility] Telehealth: H er updated medication list for this problem includes: Losartan-hydrochlorothiazide 100-25 Mg Tablet (Losartan-hydrochlorothiazide) ..... Take 1 tablet by mouth every day Metformin 500 Mg Tablet (Metformin) ..... Take 1 tablet by mouth twice a day Aspirin 325 Mg Tablet (Aspirin) ..... 1 tablet once a day [facility] Telehealth [facility] Telehealth: H er updated medication list for this problem includes: Metoprolol Tartrate 25 Mg Tablet (Metoprolol tartrate) ..... Take 1 tablet by mouth twice a day Losartan-hydrochlorothiazide 100-25 Mg Tablet (Losartan-hydrochlorothiazide) ..... Take 1 tablet by mouth every day Aspirin 325 Mg Tablet (Aspirin) ..... 1 tablet once a day [facility] Telehealth: H er updated medication list for this problem includes: Metoprolol Tartrate 25 Mg Tablet (Metoprolol tartrate) ..... Take 1 tablet by mouth twice a day Aspirin 325 Mg Tablet (Aspirin) ..... 1 tablet once a day [facility] Telehealth: H er updated medication list for this problem includes: Metoprolol Tartrate 25 Mg Tablet (Metoprolol tartrate) ..... Take 1 tablet by mouth twice a day Aspirin 325 Mg Tablet (Aspirin) ..... 1 tablet once a day Orders: M onitor - Telemetry (Mobile Cardiac) (CPT-04629) [facility] Cardiology:This visi t has been a part of the consistent, comprehensive, and ongoing management of the chronic medical condition(s) listed above for the patient. Her updated medication list for this problem includes: Metoprolol Tartrate 25 Mg Tablet (Metoprolol tartrate) ..... Take 1 tablet by mouth twice a day Losartan-hydrochlorothiazide 100-25 Mg Tablet (Losartan-hydrochlorothiazide) ..... Take 1 tablet by mouth every day Aspirin 325 Mg Tablet (Aspirin) ..... 1 tablet once a day Orders: C OMPREHENSIVE METABOLIC PANEL, W/EGFR (24848) C BC (INCLUDES DIFF/PLT) (6399) L IPID PANEL (7600) P ROBNP, N TERMINAL (98951) H EMOGLOBIN A1c (496) Mariusz Castillo MD Cardiology: H er updated medication list for this problem includes: Losartan-hydrochlorothiazide 100-25 Mg Tablet (Losartan-hydrochlorothiazide) ..... Take 1 tablet by mouth every day Metformin 500 Mg Tablet (Metformin) ..... Take 1 tablet by mouth twice a day Aspirin 325 Mg Tablet (Aspirin) ..... 1 tablet once a day Orders: C OMPREHENSIVE METABOLIC PANEL, W/EGFR (90038) C BC (INCLUDES DIFF/PLT) (6399) L IPID PANEL (7600) P ROBNP, N TERMINAL (62276) H EMOGLOBIN A1c (496) [facility] Cardiology: O rders: C OMPREHENSIVE METABOLIC PANEL, W/EGFR (37998) C BC (INCLUDES DIFF/PLT) (6399) L IPID PANEL (7600) P ROBNP, N TERMINAL (92465) H EMOGLOBIN A1c (496) [facility] Cardiology: O rders: C OMPREHENSIVE METABOLIC PANEL, W/EGFR (57116) C BC (INCLUDES DIFF/PLT) (6399) L IPID PANEL (7600) P ROBNP, N TERMINAL (13152) H EMOGLOBIN A1c (496) [facility] Cardiology: O rders: C OMPREHENSIVE METABOLIC PANEL, W/EGFR (42794) C BC (INCLUDES DIFF/PLT) (6399) L IPID PANEL (7600) P ROBNP, N TERMINAL (39231) H EMOGLOBIN A1c (496) [facility] Cardiology: H er updated medication list for this problem includes: Metoprolol Tartrate 25 Mg Tablet (Metoprolol tartrate) ..... Take 1 tablet by mouth twice a day Losartan-hydrochlorothiazide 100-25 Mg Tablet (Losartan-hydrochlorothiazide) ..... Take 1 tablet by mouth every day Aspirin 325 Mg Tablet (Aspirin) ..... 1 tablet once a day Orders: C OMPREHENSIVE METABOLIC PANEL, W/EGFR (09741) C BC (INCLUDES DIFF/PLT) (6399) L IPID PANEL (7600) P ROBNP, N TERMINAL (30066) H EMOGLOBIN A1c (496) Mitchel Dupont Cardiology: H er updated medication list for this problem includes: Metoprolol Tartrate 25 Mg Tablet (Metoprolol tartrate) ..... Take 1 tablet by mouth twice a day Aspirin 325 Mg Tablet (Aspirin) ..... 1 tablet once a day Orders: C OMPREHENSIVE METABOLIC PANEL, W/EGFR (01561) C BC (INCLUDES DIFF/PLT) (6399) L IPID PANEL (7600) P ROBNP, N TERMINAL (76736) H EMOGLOBIN A1c (496) Mitchel Dupont Cardiology: B P today: 130/74 P rior BP: 145/59 (09/29/2022) Labs Reviewed: C reat: 0.8 (07/09/2015) C hol: 186 (07/16/2022) HDL: 59 (07/16/2022) LDL: 111 MG/DL (CALC) (07/16/2022) T (07/16/2022) Her updated medication list for this problem includes: Losartan-hydrochlorothiazide 100-25 Mg Tablet (Losartan-hydrochlorothiazide) ..... Take 1 tablet by mouth every day Metoprolol Tartrate 25 Mg Tablet (Metoprolol tartrate) ..... Take 1 tablet by mouth twice a day Aspirin 325 Mg Tablet (Aspirin) ..... 1 tablet once a day Mitchel Dupont Cardiology: H er updated medication list for this problem includes: Metoprolol Tartrate 25 Mg Tablet (Metoprolol tartrate) ..... Take 1 tablet by mouth twice a day Aspirin 325 Mg Tablet (Aspirin) ..... 1 tablet once a day [facility] Cardiology: H er updated medication list for this problem includes: Losartan-hydrochlorothiazide 100-25 Mg Tablet (Losartan-hydrochlorothiazide) ..... Take 1 tablet by mouth every day Metformin 500 Mg Tablet (Metformin) ..... Take 1 tablet by mouth twice a day Aspirin 325 Mg Tablet (Aspirin) ..... 1 tablet [facility] a day [facility] Cardiology: H er updated medication list for this problem includes: Rosuvastatin 20 Mg Tablet (Rosuvastatin) ..... Take 1 tablet by mouth every day Ezetimibe 10 Mg Tablet (Ezetimibe) ..... Take 1 tablet by mouth every day [facility] Cardiology [facility] Cardiology [facility] Cardiology [facility] Card[facility] Cardiology [facility] Cardiology [facility] Cardiology [facility] Cardiology [facility] Cardiology:HgbA1C hugo s been ordered per PCP. May consider farxiga or Jardiance if elevated for CV prevention and LE edema H er updated medication list for this problem includes: Losartan-hydrochlorothiazide 100-25 Mg Tablet (Losartan-hydrochlorothiazide) ..... Take 1 tablet by mouth every day Metformin 500 Mg Tablet (Metformin) ..... Take 1 tablet by mouth twice a day Aspirin 325 Mg Tablet (Aspirin) ..... 1 tablet once a day Ely Ventimiglia [facility] Cardiology:encouraged compressio n and elevation Ely Ventimiglia [facility] Cardiology:on zetia. Will update lipids H er updated medication list for this problem includes: Ezetimibe 10 Mg Tablet (Ezetimibe) ..... Take 1 tablet by mouth every day Orders: 9 9214 MOD 30-39min (CPT-74068) L IPID PANEL (6221) Ely Childers [facility] Cardiology:controlle d. asymptomatic at baseline. Will continue low dose BB and monitor H er updated medication list for this problem includes: Metoprolol Tartrate 25 Mg Tablet (Metoprolol tartrate) ..... Take 1 tablet by mouth twice daily Aspirin 325 Mg Tablet (Aspirin) ..... 1 tablet once a day Ely Childers [facility] Cardiology:Blood pre ssure controlled 133/65 today. Will continue to monitor at home. continue present medication regimen H er updated medication list for this problem includes: Losartan-hydrochlorothiazide 100-25 Mg Tablet (Losartan-hydrochlorothiazide) ..... Take 1 tablet by mouth every day Metoprolol Tartrate 25 Mg Tablet (Metoprolol tartrate) ..... Take 1 tablet by mouth twice daily Aspirin 325 Mg Tablet (Aspirin) ..... 1 tablet once a day Ely Childers [facility] Cardiology Mitchel [facility] Cardiology Mitchel [facility] Cardiology Mitchel [facility] Cardiology Mitchel [facility] Cardiology Mit[facility] Cardiology Mitchel [facility] Cardiology Mitchel [facility] Cardiology [facility] Cardiology [facility] Cardiology [facility] Cardiology [facility] Cardiology [facility] Telehealth Mariusz Castillo MD Telehealth Mariusz Castillo MD Telehealth Mariusz Castillo MD Telehealth Mariusz Castillo MD Telehealth Mariusz Castillo MD Telehealth Mariusz Castillo MD Cardiology [facility] Cardiology [facility] Cardiology [facility] Cardiology [facility] Cardiology Mitchel Dupont Cardiology Mariusz Castillo MD Cardiology Mariusz Castillo MD Cardiology Mariusz Castillo MD Cardiology Mariusz Castillo MD Cardiology Mariusz Castillo MD Cardiology Mariusz Castillo MD Cardiology Follow up - Toniya Jessica garcia MD Cardiology Follow up - Toniya Jessica garcia MD Cardiology Follow up - Toniya Jessica garcia MD Cardiology Follow up - Toniya Jessica garcia MD Cardiology Follow up - Toniya Jessica garcia MD Cardiology Mariusz Castillo MD Cardiology Mariusz Castillo MD Cardiology Mariusz Castillo MD Cardiology Mariusz Castillo MD Cardiology Mariusz Castillo MD Cardiology Mariusz Castillo MD Cardiology Mariusz Castillo MD Cardiology Mariusz Castillo MD Cardiology Mariusz Castillo MD Cardiology Mariusz Castillo MD Cardiology Follow up Mariusz sanchez MD Cardiology Follow up :please check your bp daily Goal BP is as close to 120/80 as possible Mariusz Castillo MD Cardiology Follow up Tonsaturnino sanchez MD Cardiology Follow up Tonsaturnino sanchez MD Cardiology Follow up Tonifabian sanchez MD Cardiology Follow up Tonifabian sanchez MD Cardiology Follow up Tonifabian sanchez MD Cardiology Follow up Tonifabian sanchez MD Cardiology Follow up Tonifabian sanchez MD Cardiology Follow up Toniya Mohan sanchez MD Cardiology Follow up Tonsaturnino sanchez MD Cardiology Follow up Tonifabian sanchez MD FOLLOW UP: H er updated medication list for this problem includes: Metoprolol Tartrate 25 Mg Tabs (Metoprolol tartrate) ..... One tab. twice daily Hydrochlorothiazide 25 Mg Tabs (Hydrochlorothiazide) ..... One tab daily Aspirin 325 Mg Tabs (Aspirin) ..... One tab daily Orders: E KG (CPT-27651) BP today: 138/67 P rior BP: 156/88 (06/27/2013) Labs Reviewed: C reat: 0.81 (08/23/2013) C hol: 179 (08/23/2013) HDL: 43 (08/23/2013) LDL: 103 (08/23/2013) T (08/23/2013) Mariusz Castillo MD Follow Up: H er updated medication list for this problem includes: Metoprolol Tartrate 25 Mg Tabs (Metoprolol tartrate) ..... One tab. twice daily Aspirin 325 Mg Tabs (Aspirin) ..... One tab daily Orders: E KG (CPT-43300) BP today: 156/88 Prior BP: 146/80 (06/21/2012) C ardiac Cath: Normal LV systolic function. Normal coronary disease. Pursue risk factor modification. [facility] (11/13/2003) Mariusz Castillo MD Follow Up: H er updated medication list for this problem includes: Metoprolol Tartrate 25 Mg Tabs (Metoprolol tartrate) ..... One tab. twice daily Hydrochlorothiazide 25 Mg Tabs (Hydrochlorothiazide) ..... One tab daily Aspirin 325 Mg Tabs (Aspirin) ..... One tab daily BP today: 156/88 P rior BP: 146/80 (06/21/2012) Mariusz Castillo MD Follow Up: H er updated medication list for this problem includes: Metoprolol Tartrate 25 Mg Tabs (Metoprolol tartrate) ..... One tab. twice daily Aspirin 325 Mg Tabs (Aspirin) ..... One tab daily BP today: 156/88 Prior BP: 146/80 (06/21/2012) C ardiac Cath: Normal LV systolic function. Normal coronary disease. Pursue risk factor modification. [facility] (11/13/2003) Mariusz Castillo MD follow up: H er updated medication list for this problem includes: Metoprolol Tartrate 25 Mg Tabs (Metoprolol tartrate) ..... One tab. twice daily Aspirin 325 Mg Tabs (Aspirin) ..... One tab daily Orders: Amara KG (CPT-91005) BP today: 146/80 Prior BP: 152/87 (06/23/2011) C ardiac Cath: Normal LV systolic function. Normal coronary disease. Pursue risk factor modification. [facility] (11/13/2003) Mariusz Castillo MD follow up: H er updated medication list for this problem includes: Metoprolol Tartrate 25 Mg Tabs (Metoprolol tartrate) ..... One tab. twice daily Hydrochlorothiazide 25 Mg Tabs (Hydrochlorothiazide) ..... One tab daily Aspirin 325 Mg Tabs (Aspirin) ..... One tab daily BP today: 146/80 P rior BP: 152/87 (06/23/2011) Mariusz Castillo MD follow up: H er updated medication list for this problem includes: Metoprolol Tartrate 25 Mg Tabs (Metoprolol tartrate) ..... One tab. twice daily Aspirin 325 Mg Tabs (Aspirin) ..... One tab daily BP today: 146/80 Prior BP: 152/87 (06/23/2011) C ardiac Cath: Normal LV systolic function. Normal coronary disease. Pursue risk factor modification. [facility] (11/13/2003) Mariusz Castillo MD follow up: H er updated medication list for this problem includes: Metoprolol Tartrate 25 Mg Tabs (Metoprolol tartrate) ..... One tab. twice daily Aspirin 325 Mg Tabs (Aspirin) ..... One tab daily BP today: 152/87 Prior BP: 155/83 (06/25/2009) C ardiac Cath: Normal LV systolic function. Normal coronary disease. Pursue risk factor modification. [facility] (11/13/2003) Echocardiogram: Normal left ventricular systolic function. Normal left ventricular size. Normal left ventricular wall thickness. The E to A ratio shows signs of borderline left ventricular diastolic dysfunction. Normal E/E` 14.0. Left ventricular ejection fraction is estimated at 70 %. M ild enlargement of the left atrium. T he mitral valve is normal in appearance and function. No mitral valve regurgitation is seen. (06/24/2010) Mariusz Castillo MD follow up Mariusz Castillo MD follow up: H er updated medication list for this problem includes: Metoprolol Tartrate 25 Mg Tabs (Metoprolol tartrate) ..... One tab. twice daily Aspirin 325 Mg Tabs (Aspirin) ..... One tab daily Orders: E KG (CPT-[id number]) BP today: 152/87 Prior BP: 155/83 (06/25/2009) E chocardiogram: Normal left ventricular systolic function. Normal left ventricular size. Normal left ventricular wall thickness. The E to A ratio shows signs of borderline left ventricular diastolic dysfunction. Normal E/E` 14.0. Left ventricular ejection fraction is estimated at 70 %. M ild enlargement of the left atrium. T he mitral valve is normal in appearance and function. No mitral valve regurgitation is seen. (06/24/2010) C ardiac Cath: Normal LV systolic function. Normal coronary disease. Pursue risk factor modification. [facility] (11/13/2003) Mariusz Castillo MD : H er updated medication list for this problem includes: Metoprolol Tartrate 25 Mg Tabs (Metoprolol tartrate) ..... One tab. twice daily Aspirin 325 Mg Tabs (Aspirin) ..... One tab daily BP today: / Prior BP: 155/83 (06/25/2009) C ardiac Cath: Normal LV systolic function. Normal coronary disease. Pursue risk factor modification. [facility] (11/13/2003) E chocardiogram: TDS. LV chamber size and wall thickness is normal. Normal LV function. LV EF is estimated at 60%. Mild LAE. Thickened MVL. Trace MR. Trace TR. Right heart pressure could not be adequately evaluated. [facility] [place] (07/10/2008) Mariusz Castillo MD Mariusz Castillo MD Mariusz Castillo MD : H er updated medication list for this problem includes: Metoprolol Tartrate 25 Mg Tabs (Metoprolol tartrate) ..... One tab. twice daily Hydrochlorothiazide 25 Mg Tabs (Hydrochlorothiazide) ..... One tab daily Aspirin 325 Mg Tabs (Aspirin) ..... One tab daily Prior BP: 155/83 (06/25/2009) Mariusz Castillo MD routine Mariusz Castillo MD routine Mariusz Castillo MD routine: H er updated medication list for this problem includes: Metoprolol Succinate 50 Mg Tb24 (Metoprolol succinate) ..... Take 1 tablet by mouth every day Hydrochlorothiazide 25 Mg Tabs (Hydrochlorothiazide) ..... One tab daily Aspirin 325 Mg Tabs (Aspirin) ..... One tab daily BP today: 123/63 Mariusz Castillo MD routine: H er updated medication list for this problem includes: Metoprolol Succinate 50 Mg Tb24 (Metoprolol succinate) ..... Take 1 tablet by mouth every day Aspirin 325 Mg Tabs (Aspirin) ..... One tab daily BP today: 123/63 Prior BP: / () C ardiac Cath: Normal LV systolic function. Normal coronary disease. Pursue risk factor modification. [facility] (11/13/2003) E chocardiogram: Normal echo. EF 60%. [facility] [place] (07/05/2007) Orders: Amara KG ([id number]-[id number]) Mariusz Castillo MD Date Name Holter Monitor 48 hr EKG HEMOGLOBIN A1c PROBNP, N TERMINAL TSH, free T4, total T3 COMPREHENSIVE METABO LIC PANEL, W/EGFR PROTHROMBIN TIME WIT H INR LIPID PANEL CBC (INCLUDES DIFF/P LT) Monitor - Telemetry (Mobile Cardiac) HEMOGLOBIN A1c PROBNP, N TERMINAL LIPID PANEL CBC (INCLUDES DIFF/P LT) COMPREHENSIVE METABO LIC PANEL, W/EGFR Venous Doppler Bilat eral LE - Reflux LIPID PANEL Sleep Study Home CT, Coronary Calcium Score Complete Echo TSH, 3RD GENERATION W/REFLEX TO FT4 HEMOGLOBIN A1c LIPID PANEL COMPREHENSIVE METABO LIC PANEL W/EGFR CBC (INCLUDES DIFF/P LT) Complete Echo HISTORY OF PROCEDURES Procedure Date Procedure Name Provider Procedure Notes S tatus Complex e/m visit add on Mariusz Castillo MD completed Complex e/m visit add on Mariusz Castillo MD completed EKG Mariusz Castillo MD completed Complex e/m visit add on Mariusz Castillo MD completed Complex e/m visit add on Mariusz Castillo MD completed EKG Mariusz Castillo MD completed EKG Mariusz Castillo MD completed CT- Coronary CA score Mariusz Castillo MD completed EKG Mariusz Castillo MD completed EKG Mariusz Castillo MD completed EKG Mariusz Castillo MD completed EKG Mariusz Castillo MD completed SNOMED-CT: [id number] Current Medications Documented Mariusz Castillo MD completed SNOMED-CT: [id number] Physical Exam, Performed: Pulse Exam of Foot Mariusz Castillo MD completed SNOMED-CT: [id number] Physical Exam, Performed: Pulse Exam of Foot Mariusz Castillo MD completed EKG Mariusz Castillo MD completed SNOMED-CT: [id number] Current Medications Documented Mariusz Castillo MD completed EKG Mariusz Castillo MD completed EKG Mariusz Castillo MD completed EKG Mariusz Castillo MD completed EKG Mariusz Castillo MD completed EKG Mariusz Castillo MD completed
--- OUTSIDE RECORDS SUMMARY | 2024-03-26 23:30 | XMS_ITS | Referral Summary ---
Author Organization [facility] Address [address] [place] [address] Care Team Providers Care Dna Analyst Name Role Phone Walt Kirk MD Primary Care Provider Venu Leon MD Unavailable Allergies Active Allergy Reactions Criticality Noted Date Comments Amlodipine Other (See comments) Low 10/14/2019 Atorvastatin Sweating High 03/30/2023 Lisinopril Cough Low 10/14/2019 Valsartan Cough Low 10/14/2019 Medications metoprolol (LOPRESSOR) 25 mg tabletIndicatio ns:hypertension Take 1 tablet (25 mg total) by mouth every 12 hours Active aspirin 325 mg tabletIndicatio ns:heart health Take 1 tablet (325 mg total) by mouth every morning Active metFORMIN (GLUCOPHAGE) 500 mg tablet Take 1 tablet (500 mg total) by mouth 2 (two) times a day 06/21/2020 Active cyanocobalamin (Vitamin B-12) 1,000 mcg tablet Take by mouth daily 03/19/2020 Active True Metrix Glucose Test Strip strip USE TO TEST BLOOD GLUCOSE DAILY DIRECTED 04/10/2021 Active ezetimibe (ZETIA) 10 mg tablet Take 1 tablet (10 mg total) by mouth daily 04/22/2021 Active losartan-hydroc hlorothiazide (HYZAAR) 100-25 mg per tablet Take 1 tablet by mouth daily 05/02/2021 Active rosuvastatin (CRESTOR) 20 mg tablet Take 1 tablet (20 mg total) by mouth daily Active tirzepatide (Mounjaro) 2.5 mg/0.5 mL pen injector Mounjaro 2.5 mg/0.5 mL pen injector 03/30/2023 Active Active Problems Problem Noted Date Diagnosed Date Hammer toe 04/08/2023 Tinea corporis 03/24/2023 Dystrophia unguium 12/15/2022 Metatarsalgia of right foot 12/15/2022 Class 3 obesity 09/10/2022 Abscess of breast 01/10/2022 Cellulitis of lower limb 09/03/2021 Obstructive sleep apnea syndrome 10/29/2020 Type 2 diabetes mellitus without complication (C MS/HCC) 02/16/2020 Coronavirus infection 04/29/2019 Hyperlipidemia 03/08/2019 Prediabetes 03/08/2019 Primary malignant neoplasm of endometrium (CMS/H CC) 01/24/2019 Atrial fibrillation ([facility]/HCC) 08/16/2018 Endometrial cancer ([facility]/HCC) 07/30/2018 Cancer Staging:Pathologic stage from 08/16/2018:Stage IIIC1(pT1b, pN1mi(sn), cM0) - Signed by Tyler Haney MD PhD on 09/20/2018 Overview (07/30/2018): Added automatically from request for surgery [id number] Essential hypertension 07/30/2018 Morbid obesity 07/30/2018 Diabetes mellitus 07/19/2018 History of adenomatous polyp of colon 07/19/2018 History of colonic polyps 07/19/2018 Edema 07/14/2016 Hyperkalemia 06/10/2007 Chest pain, unspecified 03/02/1961 Immunizations Name Administration Dates Next Due Influenza, Quadrivalent, Hig h Dose, Preservative Free, Intrr 01/30/2020,12/01/2019 Influenza, Quadrivalent, Spl it, Preservative Free, Intramuscular 12/17/2017,12/16/2017 Influenza, Trivalent, Adjuvanted, Intramuscular 12/31/2018 Pfizer SARS-CoV-2 Monovalent Vaccination (12+ Yrs) PURPLE 05/06/2020,04/14/2020 Pneumococcal Conjugate PCV 13 01/30/2020 Pneumococcal Polysaccharide PPV23 08/28/2021 Sars-CoV-2, Unspecified 05/06/2020,04/14/2020 Social History Tobacco Use Types Packs/Day Years Used Date Smoking Tobacco: Never Smokeless Tobacco: Never Tobacco Cessation:Counseling Given: Not Answered Alcohol Use Standard Drinks/Week Comments Never 0 (1 standard drink = 0.6 oz pur e alcohol) AUDIT-C Answer Date Recorded Frequency of Alcohol Consumption Never 07/30/2018 Average Number of Drinks Not on file 019 Frequency of Binge Drinking Not on file 07/02 Comments No Sex and Gender Information Value Date Recorded Sex Assigned at Not on file Legal Sex Female 9:07 PM [employer] Gender Identity Not on file Sexual Orientation Not on file Last Filed Vital Signs Vital Sign Reading Time Taken Comments Blood Pressure 140/88 05/22/2023 12:00 PM CDT Pulse 107 05/22/2023 12:00 PM CDT Temperature 36.5 ??C (97.7 ??F) 05/22/2023 12:00 PM C DT Respiratory Rate 16 05/22/2023 12:00 PM CDT Oxygen Saturation 95% 05/22/2023 12:00 PM CDT Inhaled Oxygen Concentration - - Weight 146.5 kg (323 lb) 05/22/2023 12:00 PM CDT Height 176.5 cm (5' 9.49 ) 05/22/2023 12:00 PM C DT Body Mass Index 47.03 05/22/2023 12:00 PM CDT Plan of Treatment Not on file Insurance MEDICARE [facility] MEDICARE [facility] MEDICARE [facility] Advance Directives For more information, please contact: [phone] * Full Code (Latest Code Status on File) Date Activated Date Inactivated Comments 08/16/2018 1:35 PM 08/17/2018 7:26 PM Care Teams Dna Analyst Relationship Specialty Start Date End Date Walt Kirk MD [facility] [address] [place] [address] PCP - General Internal Medicine 07/20/18 Venu Leon MD [address] [place] [address] Referring Physician Obstetrics and Gynecology 07/20/18
--- OUTSIDE RECORDS SUMMARY | 2024-03-26 23:30 | XMS_ITS | Data Portability ---
Author Organization [facility] [place], Main Office Address [address] [place] [address] Care Team Providers Care Carburetor Expert Name Role Phone LÓPEZ KIRK Primary Care Provider [phone] LÓPEZ KIRK Referring Provider [phone] LEOBARDO HERR Real Estate Closing Coordinator DORIAN CARBAJAL Staff Assistant BRODIE HARRISON Jewelry Sales Coordinator Assessment Encounter Date Assessment Date Assessment LastModified by Organization Details LastModified Time 10/12/2023 10/12/2023 This note is dictated and transcribed by [employer]. Data Engineer variances may occur. Despite proofreading, typographical errors may occur. Occasional wrong-word or 'gyrez-m-zvwz' substitutions may have occurred due to the inherent limitations of voice recording. Read the chart carefully and recognize, using context, where substitutions have occurred. Not available 10/12/2023 15:43:25 01/11/2024 01/11/2024 This note is dictated and transcribed by [employer]. Data Engineer variances may occur. Despite proofreading, typographical errors may occur. Occasional wrong-word or 'ocfeb-g-nosp' substitutions may have occurred due to the inherent limitations of voice recording. Read the chart carefully and recognize, using context, where substitutions have occurred. Not available 01/11/2024 15:44:04 Plan of Treatment Reminders Order Date Submit Date Provider Last Modified By Organization Details Last Modified Time Details Appointments Establish ed Patient 15 2024 02:00P M Brodie Harrison DPM Not available Not available Not available Lab None recorded. Referral None recorded. Procedures None recorded. Surgeries None recorded. Imaging None recorded. Medication Orders None recorded. Patient TargetsNo targets recorded. Patient Instructions Encounter Date Encounter Id Patient Instructions Last Modified By Organization Details Last Modified Time 09/09/2023 [id number] Follow-up hypertension, hyperlipidemia, type 2 diabetes, history of colon polyps as well as obesity class three all clinically stable. Will continue with current medication at this point. Will follow-up in six months. Does need a colonoscopy will set that and motion once again. Additional Orders and/or Directives: 1. Mammogram 2. Colonoscopy for follow-up colon polyps Next Appointment: 6 Months Approximate Date: 03/07/2024 Portions of the record may have been created with voice recognition software. Occasional wrong-word or ? s ound-a-like? substitutions may have occurred due to the inherent limitations of voice recognition software. Read the chart carefully and recognize, using context, where substitutions have occurred. [email or web address] Not available 09/09/2023 16:55:56 01/11/2024 [id number] diabetes foot health: care instructions Not available 01/11/2024 15:44:38 03/16/2024 [id number] Follow-up for essential hypertension persistent atrial fibrillation, hyperlipidemia, type 2 diabetes and obesity class three. Blood pressure is marginally elevated today likely secondary to the obesity as well as other associated medical problems. Rescheduled to see Cardiology next week so will hold off on increasing her medication until be seen by Cardiology. Otherwise is doing well the diabetes under reasonably good control. Has been on the Mounjaro for about six weeks only a 2.5 mg which probably needs to be increased. Will continue on current medications at this time follow-up in four Months. Follow Up: 4 Months Approximate Date: 07/14/2024 Portions of the record may have been created with voice recognition software. Occasional wrong-word or ? s ound-a-like? substitutions may have occurred due to the inherent limitations of voice recognition software. Read the chart carefully and recognize, using context, where substitutions have occurred. Created: López Kirk M.D. 03.16.2024 04:14 PM [email or web address] Not available 03/16/2024 17:15:03 Reason for Referral None Reported. Problems Name Problem SNOMED Code Status Onset Date Resolution Date Notes Provider Name and Address Organization Details Recorded Time Benign essential hypertensi on 7343063 Active Not Available [facility] 3 05:58:37 Abscess of breast 82767304 Active 2021 Not Available [facility] 3 05:58:37 Type 2 diabetes mellitus without complicati on 553001314 Active 2019 Not Available [facility] 3 05:58:37 History of polyp of colon 849006847 Active 2018 Not Available [facility] 3 05:58:37 Cellulitis of lower limb 571284983 Active 2021 Not Available [facility] 3 05:58:37 Atrial fibrillati on 81409391 Active Not Available [facility] 3 05:58:38 Obstructiv e sleep apnea syndrome 29856292 Active 2020 Not Available [facility] 3 05:58:38 Primary malignant neoplasm of endometriu m 88657353 Active 2018 Not Available [facility] 3 05:58:38 Obese class III 921172303 Active 2022 López Kirk MD [address], [address], [place], [address] , [employer] [facility] [employer] 3 16:53:29 Dystrophia unguium 71133662 Active 2022 Brodie Harrison DPM [address], [address], [place], [address] , [employer] [facility] [employer] 3 15:43:27 Metatarsal vanessa of right foot 3599406798815 00 Active 2022 Brodie Harrison DPM [address], [address], [place], [address] , [employer] 3 15:43:53 Localized, primary osteoarthr itis of the ankle and/or foot 400992600 Active 2022 Brodie Harrison DPM [address], [address], [place], [address] , [employer] 3 15:43:59 Hyperlipid emia 00072817 Active 2023 López Kirk MD [address], [address], [place], [address] , [facility] 4 17:16:47 Pruritic rash 63124385 Active 2023 López Kirk MD [address], [address], [place], [address] , [facility] 4 17:32:10 Tinea corporis 92890951 Active 2023 López Kirk MD [address], [address], [place], [address] , [facility] 4 17:32:38 Hammer toe 730511193 Active 2023 Brodie Harrison DPM [address], [address], [place], [address] , [facility] 4 17:09:11 Hyperglyce mindi 94706794 Active 2023 Britany Contreras CMA [facility], [facility] 4 16:00:39 Metatarsal vanessa 57111794 Active 2023 Brodie Harrison DPM [address], [address], [place], [address] , [facility] 4 16:01:24 Bilateral plantar fasciitis 4513587533954 9108 Active 2023 Brodie Harrison DPM [address], [address], [place], [address] , [facility] 4 15:44:02 Problem Notes None recorded. Procedures Surgical History Date Name Laterality Status Provider Name and Address Organization Details Recorded Time 01/11/20 Nail Debridement completed Brodie Harrison DPM [address], [address], [place], [address], [facility] 01/11/2024 15:43:51 10/12/19 24 Nail Debridement completed Brodie Harrison DPM [address], [place], [address], [facility] [employer] [facility] 10/12/2023 15:43:14 09/30/19 24 Chronic care management services completed Leobardo Herr RN [facility] [employer] [facility] 09/30/2023 11:23:48 08/25/19 24 Chronic care management services completed Leobardo Herr RN [facility] [employer] [facility] 08/25/2023 15:43:45 07/24/19 24 Chronic care management services completed Leobardo Herr RN [facility] [employer] [facility] 07/29/2023 13:23:59 07/09/19 24 Nail Debridement completed Brodie Harrison DPM [address], [place], [address], [facility] [employer] [facility] 07/09/2023 16:00:40 04/09/19 24 Nail Debridement completed Brodie Harrison DPM [address], [place], [address], [facility] [employer] [facility] 04/21/2023 09:22:18 03/18/19 24 Medicare Wellness CPT Code, subsequent completed Gena Ngo RN [facility] [employer] [facility] 03/18/2023 17:05:17 12/16/19 23 Nail Debridement completed Brodie Harrison DPM [address], [place], [address], [facility] [employer] [facility] 12/15/2022 15:43:16 01/01/20 21 Date of Last Colonoscopy completed Not Available [facility] 04/30/2022 05:53:31 Imaging Results None recorded. Procedure Notes None recorded. Medical Equipment None Reported. Allergies Allergen ID Allergen Name Allergen Category Reaction Reaction Severity Criticality Documentation Date Start Date Code Code System Note Provider Name and Address Organization Details Recorded Time 15642 lisinopri l medicatio n cough Not available Not available 04/30/2022 93676 RxNorm Not Available [facility] 3 06:05:25 85081 Diovan medicatio n cough Not available Not available 04/30/2022 84682 2 RxNorm Not Available [facility] 3 06:05:25 Medications Name Sig Start Date Stop Date Status Note LastModified by Organization Details LastModified Time amoxicillin 500 mg capsule active Not Available Not Available Not Available clotrimazol e 10 mg brandee Take 1 tablet 5 times a day by oral route. 01/29 completed Not Available Not Available Not Available metformin 500 mg tablet TAKE 1 TABLET BY MOUTH TWICE A DAY 2024 active Not Available Not Available Not Avai lable atorvastati n 20 mg tablet TAKE 1 TABLET BY MOUTH EVERY DAY IN THE EVENING 07/08 completed Not Available Not Available Not Available Vitamin C 500 mg tablet Take 1 tablet every day by oral route. 12/15 completed Not Available Not Available Not Available aspirin 325 mg tablet Take 1 tablet every day by oral route. 03/16 completed Not Available Not Available Not Available ibuprofen 800 mg tablet active Not Available Not Available Not Available Cytotec 200 mcg tablet Take 2 tablets by oral route at bedtime for 1 day. 01/24 completed Not Available Not Available Not Available Zithromax Z-Hugo 250 mg tablet TAKE 2 TABLETS (500 MG) BY ORAL ROUTE ONCE DAILY FOR 1 DAY THEN 1 TABLET (250 MG) BY ORAL ROUTE ONCE DAILY FOR 4 DAYS 01/29 completed Not Available Not Available Not Available cyanocobala min (vit B-12) 1,000 mcg tablet Take 1 tablet every day by oral route. 12/15 completed Not Available Not Available Not Available tramadol 50 mg tablet active Not Available Not Available No t Available losartan 100 mg-hydrochl orothiazide 25 mg tablet TAKE 1 TABLET BY MOUTH EVERY DAY active Not Available Not Available No t Available cephalexin 500 mg capsule TAKE 1 CAPSULE BY MOUTH TWICE A DAY 12/15 completed Not Available Not Available Not Available clotrimazol e-betametha sone 1 %-0.05 % topical cream APPLY TO AFFECTED AREA AND SURROUNDI NG AREAS TWICE A DAY IN THE MORNING & EVENING X 2 WEEKS 07/08 completed Not Available Not Available Not Available hydrochloro thiazide 25 mg tablet TAKE 1 TABLET BY MOUTH EVERY DAY 02/04 completed Not Available Not Available Not Available ergocalcife rol (vitamin D2) 1,250 mcg (50,000 unit) capsule TAKE 1 CAPSULE BY MOUTH ONE TIME PER WEEK active Not Available Not Available No t Available losartan 50 mg-hydrochl orothiazide 12.5 mg tablet TAKE 1 TABLET BY MOUTH EVERY DAY 08/28 completed Not Available Not Available Not Available Bactrim DS 800 mg-160 mg tablet Take 1 tablet every 12 hours by oral route. 09/10 completed Not Available Not Available Not Available ezetimibe 10 mg tablet TAKE 1 TABLET BY MOUTH EVERY DAY active Not Available Not Available No t Available rosuvastati n 20 mg tablet TAKE 1 TABLET BY MOUTH EVERY DAY active Not Available Not Available No t Available metoprolol tartrate 25 mg tablet TAKE 1 TABLET BY MOUTH TWICE A DAY active Not Available Not Available No t Available Eliquis 5 mg tablet TAKE 1 TABLET BY MOUTH TWICE A DAY active Not Available Not Available No t Available True Metrix Glucose Test Strip USE TO TEST BLOOD SUGAR ONCE DAILY active Not Available Not Available No t Available True Metrix Glucose Test Strip use to test daily 2020 active Not Available Not Available Not Avai lable Mounjaro 2.5 mg/0.5 mL subcutaneou s pen injector INJECT 1 PEN INJECTOR SUBCUTANE OUSLY ONCE A WEEK FOR 4 WEEKS. IF TOLERATED WILL INCREASE DOSE active Not Available Not Available No t Available Vitals Date Recorded Body height Body mass index (BMI) Body weight Heart rate Body temperature Oxygen saturation Oxygen saturation in Arterial blood by Pulse oximetry Systolic blood pressure Diastolic blood pressure Provider Name and Address Organization Details Last Updated DateTime 4 177.8 cm 47.1 kg/m2 716496. 3 g 93 /min 97.5 [degF] 96 % 96 % 126 mm[Hg] 80 mm[Hg] NESHA Hoff [facility] [employer] 4 16:31:48 Date Recorded Body height Systolic blood pressure Diastolic blood pressure Provider Name and Address Organization Details Last Updated DateTime 09/30/2023 177.8 cm 126 mm[Hg] 80 mm[Hg] Leobardo Herr RN [facility] 09/30/2023 10:59:12 Date Recorded Body height Body mass index (BMI) Body weight Heart rate Respiratory rate Body temperature Oxygen saturation Oxygen saturation in Arterial blood by Pulse oximetry Systolic blood pressure Diastolic blood pressure Provider Name and Address Organization Details Last Updated DateTime 4 177.8 cm 47.1 kg/m2 879844. 3 g 68 /min 14 /min 97.6 [degF] 96 % 96 % 120 mm[Hg] 80 mm[Hg] Lucie Bustos [place] [employer] [facility] 4 15:11:47 Date Recorded Body height Body mass index (BMI) Body weight Heart rate Respiratory rate Oxygen saturation Oxygen saturation in Arterial blood by Pulse oximetry Systolic blood pressure Diastolic blood pressure Provider Name and Address Organization Details Last Updated DateTime 4 177.8 cm 47.1 kg/m2 788132. 3 g 89 /min 14 /min 98 % 98 % 114 mm[Hg] 75 mm[Hg] Lorraine Fowler [employer] [facility] [employer] [facility] 4 14:59:55 Date Recorded Body height Body mass index (BMI) Body weight Heart rate Body temperature Oxygen saturation Oxygen saturation in Arterial blood by Pulse oximetry Systolic blood pressure Diastolic blood pressure Provider Name and Address Organization Details Last Updated DateTime 5 177.8 cm 45.8 kg/m2 350312. 97 g 76 /min 97 [degF] 96 % 96 % 140 mm[Hg] 100 mm[Hg] Kareen Opal [employer] [facility] [employer] [facility] 5 16:47:50 Social History Question Answer Notes LastModified by Organization Details LastModified Time Tobacco Smoking Status Never Smoker Not Available [facility] 04/30/2022 05:52:58 Do You Have An Advance Directive? No Info Given [email or web address].[id number] Information not available 04/30/2022 What Is Your Level Of Alcohol Consumption? Occasional Maybe Twice A Year MIGRATION.0301 [id number] Information not available 04/30/2022 Are You Blind Or Do You Have Difficulty Seeing? No MIGRATION.0301 [id number] Information not available 04/30/2022 In The 14 Days Before Symptom Onset, Have You Had Close Contact With A Laboratory-confi rmed COVID-19 While That Case Was Ill? No Information not available 07/29/2023 In The 14 Days Before Symptom Onset, Have You Had Close Contact With A Person Who Is Under Investigation For COVID-19 While That Person Was Ill? 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 No MIGRATION.0301 [id number] Information not available 04/30/2022 What Type Of Diet Are You Following? REGULAR MIGRATION.0301 [id number] Information not available 04/30/2022 What Is The Highest Grade Or Level Of School You Have Completed Or The Highest Degree You Have Received? 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 3 Chair Exercise Information not available 07/29/2023 On Those Days That You Engage In Moderate To Strenuous Exercise, How Many Minutes, On Average, Do You Exercise? 10 Information not available 07/29/2023 Have There Been Any Changes To Your Family Or Social Situation? Yes Son's Divorce [email or web address] Information not available 03/18/2023 What Is The Fluoride Status Of Your Home? Unknown MIGRATION.0301 [id number] Information not available 04/30/2022 Are There Any Guns Present In Your Home? Yes MIGRATION.0301 [id number] Information not available 04/30/2022 Do You Use Insect Repellent Routinely? Yes MIGRATION.0301 [id number] Information not available 04/30/2022 Where Do You Live? [facility] MIGRATION.0301 [id number] Information not available 04/30/2022 Guns Present In The Home? Yes [email or web address] Information not available 03/18/2023 Are You Able To Care For Yourself? Yes [email or web address] Information not available 03/18/2023 Are You Blind Or Do Yo Have Difficulty Seeing? No [email or web address] Information not available 03/18/2023 Are You Deaf Or Do You Have Serious Difficulty Hearing? No [email or web address] Information not available 03/18/2023 Live Alone Of With Others? With Others [email or web address] Information not available 03/18/2023 Do You Have A Medical Power Of Director Private? No MIGRATION.0301 [id number] Information not available 04/30/2022 What Was The Date Of Your Most Recent Tobacco Screening? 03/18/2023 [email or web address] Information not available 03/18/2023 Do You Have Any Pets? No MIGRATION.0301 [id number] Information not available 04/30/2022 What Is Your Relationship Status? MIGRATION.0301 [id number] Information not available 04/30/2022 Do You Use Your Seat Belt Or Car Seat Routinely? Yes MIGRATION.0301 177711 Information not available 04/30/2022 Are You Sexually Active? Yes Information not available 07/29/2023 Do You Have Smoke And Carbon Monoxide Detectors In Your Home? Yes MIGRATION.0301 828515 Information not available 04/30/2022 Are You Passively Exposed To Smoke? No MIGRATION.0301 164366 Information not available 04/30/2022 Are There Any Smokers In Your House? No MIGRATION.0301 358571 Information not available 04/30/2022 Do You Feel Stressed (tense, Restless, Nervous, Or Anxious, Or Unable To Sleep At Night)? [id number] Information not available 07/29/2023 Do You Use Sunscreen Routinely? Yes MIGRATION.0301 941689 Information not available 04/30/2022 Have You Recently Traveled Abroad? No MIGRATION.0301 492129 Information not available 04/30/2022 Do You Have Any Dietary Restrictions? No MIGRATION.0301 604096 Information not available 04/30/2022 Sex: Female Functional Status Question Answer Note LastModified by Organizat ion Details LastModified Time Do you have difficulty walking or climbing stairs? No MIGRATION.65105 42733 Information not available 04/30/2022 Do you have transportation difficulties? No MIGRATION.76891 12940 Information not available 04/30/2022 Are you able to walk? YESWOREST sometimes uses a cane MIGRATION.04387 05448 Information not available 04/30/2022 Do you have difficulty doing errands alone? No MIGRATION.83894 12658 Information not available 04/30/2022 Are you able to care for yourself? Yes MIGRATION.22413 19236 Information not available 04/30/2022 Do you have difficulty dressing or bathing? No MIGRATION.47033 01781 Information not available 04/30/2022 What is your exercise level? Occasional Information not available 07/29/2023 Mental Status Question Answer Note LastModified by Organizat ion Details LastModified Time Do you have difficulty concentrating, remembering or making decisions? No MIGRATION.[id number] 6 Information not available 04/30/2022 Family History Relationship Description Onset Age of this Age Resolved Age Notes LastModified by Organization Details LastModified Time Brother Diabetes mellitus [email or web address] Not available 2022 15:09:27 Brother Diabetes mellitus [email or web address] Not available 2022 15:09:27 Brother Hypertensive disorder [email or web address] Not available 2022 15:09:56 Brother Hypertensive disorder [email or web address] Not available 2022 15:09:56 Brother Family history of malignant neoplasm [email or web address] Not available 2022 15:10:26 Unspecified Relation Diabetes mellitus GRANDP ARENTS Not available 12/15/2022 15:09:27 Sister Hypertensive disorder [email or web address] Not available 2022 15:09:56 Sister Hypertensive disorder [email or web address] Not available 2022 15:09:56 Sister Family history of malignant neoplasm [email or web address] Not available 2022 15:10:26 Mother Hypertensive disorder [email or web address] Not available 2022 15:09:56 Mother Osteoporosis Not availa ble 12/15/2022 15:10:11 Mother Family history of malignant neoplasm [email or web address] Not available 2022 15:10:26 Notes:Mother living 93 has e ssential hypertension and uterine cancer Father 68 from arteriosclerotic heart disease and PE Four brothers all living good health Four sisters all living and in good health Medical History Condition Response NERVE DISEASE N BLINDNESS N RHEUMATIC FEVER N KIDNEY STONES N BLADDER PROBLEMS N MRSA N OTHER # 1 N POLIO N LUNG DISEASE/DISORDER N HISTORY OF DRUG ABUSE N RADIATION / CHEMOTHERAPY N COPD N Other # 2 N BLOOD DISEASES N EAR OR HEARING PROBLEMS N MUMPS N SHINGLES N BOWEL PROBLEMS N DEPRESSION (INCLUDING POST ) N STROKE/TIA N ULCERS N BENIGN PROSTATIC HYPERPLASIA N MEASLES N HYPOTENSION N MYOCARDIAL INFARCTION N OBESITY N GERD/NAUSEA N ANEURYSM N URINARY/BLADDER/KIDNEY PROBLEMS N CORONARY ARTERY DISEASE (CAD) N ADDICTION CONCERNS N ENDOMETRIOSIS N Impotence N USE OF BLOOD THINNERS N SKIN PROBLEMS N GASTROINTESTINAL DISORDER N PERIPHERAL VASCULAR DISEASE N MUSCLE,JOINT OR BONE PROBLEMS N GASTROINTESTINAL BLEEDING N BLOOD CLOTS N ASTHMA N CATARACTS N ERECTILE DYSFUNCTION N VARICOSITIES N GI PROBLEMS N Low Testosterone N INFERTILITY N AIDS/HIV N CHEMOTHERAPY / RADIATION N LIVER DISEASE N MALE HYPOGONADISM N HYPERTENSION Y Deficiency N TOURETTE'S N ANXIETY DISORDER N BLOOD TRANSFUSION N ANEMIA/BLOOD DISORDER N CHRONIC EAR INFECTIONS N BRONCHITIS N TUBERCULOSIS N GLAUCOMA N FOOT PROBLEM N DIVERTICULITIS N CHICKENPOX N SLEEP APNEA Y INFECTIOUS DISEASE N HEART ARRHYTHMIA N PROSTATE N INSOMNIA N HIGH CHOLESTEROL / HYPERLIPIDEMIA N HYPERTHYROIDISM N EYE PROBLEMS N EDEMA N CHRONIC PAIN SYNDROME N HYPOTHYROIDISM N CAROTID BLOCKAGE N CONSTIPATION N BACK / NECK PROBLEMS N HAVE YOU BEEN HOSPITALIZED OR SEEN IN [facility] IN THE PAST YEAR ? N ATHEROSCLEROSIS N BREAST PROBLEMS N DIALYSIS N ECZEMA N OSTEOPOROSIS N ARTHRITIS N NO SIGNIFICANT PAST MEDICAL HISTORY N APPENDICITIS N DIABETES, TYPE Y BAD TEETH N ENT N HEARTBURN / REFLUX N AUTISM SPECTRUM DISORDER (ASD) N HEPATITIS / LIVER DISEASE N GOUT N SLEEP DISORDER N ALZHEIMER'S DISEASE N Brain Problems N HERPES N DEMENTIA N HEADACHES/MIGRAINES N SEIZURES/EPILEPSY N VASCULAR DISEASE N PACEMAKER N Blood Disorder N DIZZINESS N HEART DISEASE/HEART PROBLEMS N KIDNEY DISEASE N MULTIPLE SCLEROSIS N CARDIAC ARRHYTHMIA N CANCER: SPECIFY N ATRIAL FIBRILLATION Y Gall Stones N PULMONARY EMBOLISM N AUTOIMMUNE DISEASE N Gynecological History Statement/Question Response Date of Last Colonoscopy 12/31/2020 Obstetrics History GPAL:G 0 P 0 0 0 0 Immunizations Vaccine Type Date Status Note Provider Nam e and Address Organization Details Recorded Time SARS-COV-2 (COVID-19) vaccine, UNSPECIFIED 1 completed Not Available [facility] 04/30/2022 06:05:15 SARS-COV-2 (COVID-19) vaccine, UNSPECIFIED 1 completed Not Available [facility] 04/30/2022 06:05:15 pneumococcal polysaccharide PPV23 2 completed Not Available [facility] 04/30/2022 06:05:15 Influenza, high-dose, quadrivalent, PF 0 completed Not Available [facility] 04/30/2022 06:05:15 Pneumococcal conjugate PCV 13 0 completed Not Available [facility] 04/30/2022 06:05:16 Past Encounters Encounter ID Performer Location Encounter Start Date Encounter Closed Date Diagnosis/Indication Diagnosis SNOMED-CT Code Diagnosis ICD10 Code Diagnosis Note [id number] [facility] [address] [place] [address] [address] 08/06/2020 00:00:00 08/06/2020 17:47:35 [id number] [facility] [address] [place] [address] 0 02/04/2021 00:00:00 02/04/2021 17:47:05 [id number] [facility] [address] [place] [address]14[address]780 0 08/28/2021 00:00:00 08/28/2021 17:09:13 [id number] [facility] [address] [place] [address]185[address]925 0 02/26/2022 00:00:00 02/26/2022 17:26:53 [id number] López Kirk MD [facility] [address] [place] [address] 14878-545 0 09/10/2022 16:40:45 09/10/2022 17:01:27 Benign essential hypertension 1090373 I10 Type 2 carl betes mellitus without complication 085605958 E11.9 History of polyp of colon 635940509 Z86.010 Obese class III 59580998 5 E66.01 [id number] Brdoie Harrison DPM [facility] [place] [address] [facility] [address] [place] [address] 12/15/2022 15:04:11 12/15/2022 16:03:11 Type 2 diabetes mellitus without complication 442312973 E11.9 Continue diabetic care per PCP Dystrophia unguium 42461 009 L60.3 Nails 1 through 10 were debrided with sharp mechanical debridemen t without incident. Nails were debrided and greater than 50% length and thickness where needed. Metatarsal vanessa of right foot [id number] 14626 M77.41 as above Localized, primary osteoarthritis of the ankle and/or foot 295529911 M19.079 dorsal midfootedu cated on shoe gear and orthoticsr ecommend Powerstep Dixon plus met [id number] López Kirk [facility] [address] [facility] [place] [address] 03/18/2023 16:49:28 03/18/2023 17:28:03 Adult health examination 159599073 Z00.00 Screening for disorder 143941974 Z13.9 Benign ess ential hypertension 6201757 I10 Atrial fibrillation 4943 6004 I48.91 Obstructiv e sleep apnea syndrome 88202266 G47.33 Type 2 carl betes mellitus without complication 893061065 E11.9 Hyperlipidemia 26295385 E78.5 Obese class III 48328830 5 E66.[id number] [facility] [place] [address] [place] [address] 04/09/2023 16:55:16 04/21/2023 10:22:05 Dystrophia unguium 39361536 L60.3 Nails 1 through 10 were debrided with sharp mechanical debridemen t without incident. Nails were debrided and greater than 50% length and thickness where needed. Metatarsal vanessa of right foot 4448434374 11376 M77.41 improved with shoes and orthoticso nly occasional painpain mostly secondary to hammertoes denies surgery at this time Hammer toe 021469746 M20 .40 as aboveofflo ading and supportive shoe and orthotics [id number] Brodie Harrison DPM [facility] [place] [address] [place] [address] 07/09/2023 15:28:45 07/09/2023 16:09:38 Dystrophia unguium 56296502 L60.3 Nails 1 through 10 were debrided with sharp mechanical debridemen t without incident. Nails were debrided and greater than 50% length and thickness where needed. Hammer toe 048638476 M20 .40 as aboveofflo ading and supportive shoe and orthotics Metatarsalgia 62338154 M 77.41 M77.42 recommend orthotics and supportive shoe geardiscus sed increased paddingfol low-up in 1-2 months [id number] López Kirk MD [facility] [place] [facility] [address] [address] 07/24/2023 16:43:55 09/28/2023 10:15:06 Atrial fibrillation 01717662 I48.91 Not having any issues Hyperglycemia 84439008 R 73.9 does take Blood sugar at home Benign ess ential hypertension 7977658 I10 Takes BP 2-3 x/ mo [id number] López Kirk MD [facility] [place] [facility] [address] [address] 08/25/2023 15:28:49 08/27/2023 11:53:25 Atrial fibrillation 46354743 I48.91 Benign ess ential hypertension 6096264 I10 Hyperlipidemia 54540556 E78.5 Hyperglycemia 24785450 R 73.9 [id number] López Kirk MD [facility] [address] [address] 09/09/2023 16:24:45 09/09/2023 16:58:24 Benign essential hypertension 7472677 I10 Hyperlipidemia 17602370 E78.5 Type 2 carl betes mellitus without complication 010854934 E11.9 History of polyp of colon 115322904 Z86.010 Obese class III 47976961 5 E66.01 [id number] López Kirk MD [facility] [address] [address] 09/30/2023 10:54:42 10/05/2023 10:17:09 Atrial fibrillation 61278816 I48.91 Benign ess ential hypertension 8469100 I10 Hyperlipidemia 85712109 E78.5 Type 2 carl betes mellitus without complication 495530531 E11.9 Obstructiv e sleep apnea syndrome 59866316 G47.33 [id number] Brodie Harrison DPM [facility] [place] [address] [place] [address] 10/12/2023 14:49:42 10/13/2023 13:39:23 Metatarsalgia 00132536 M77.41 M77.42 Improved with Powerstep orthoticsC ontinue supportive shoe gearFollow -up as needed Hammer toe 562466894 M20 .40 as aboveofflo ading and supportive shoe and orthotics Dystrophia unguium 97487 009 L60.3 Nails 1 through 10 were debrided with sharp mechanical debridemen t without incident. Nails were debrided and greater than 50% length and thickness where needed. [id number] Brodie Harrison DPM [facility] [place] [address] [facility] [address] [place] [address] 01/11/2024 14:47:25 02/25/2024 15:39:57 Bilateral plantar fasciitis 5052646032 2950417 M72.2 stretching and icing instructio ns reviewedRe commend no strenuous activities Follow-up in 1 month Dystrophia unguium 64898 009 L60.3 Nails 1 through 10 were debrided with sharp mechanical debridemen t without incident. Nails were debrided and greater than 50% length and thickness where needed. Type 2 carl betes mellitus without complication 153830930 E11.9 Continue diabetic care per PCPfollow- up 3 months [id number] López Kirk MD [facility] [place] [facility] [address] [facility], [facility] [address] [place] [address] 03/16/2024 16:31:30 03/16/2024 17:17:53 Benign essential hypertension 2262655 I10 Atrial fibrillation 4943 6004 I48.91 Hyperlipidemia 24019059 E78.5 Type 2 carl betes mellitus without complication 178267596 E11.9 Obese class III 23962312 5 E66.01 Goals Section Goal Description Status Start Date LastModified by Organization Details LastModified Time Heart Healthy Diet Maintain a low sodium and low fat diet, restricting artificial sweetener use Goal not achieved Leobardo Herr RN Information not available 08/25/2023 19:24:56 Exercise Regularly Follows a regular exercise regimen or instructed exercise plan as per care team recommendation( s) Goal not achieved Leobardo Herr RN Information not available 08/25/2023 19:24:56 Medication Regimen Follows medication regimen as per care team recommendation( s) Goal not achieved Leobardo Herr RN Information not available 08/25/2023 19:24:56 Blood Pressure Maintains blood pressure goal as defined by care team Goal not achieved Leobardo Herr RN Information not available 07/29/2023 17:05:17 Vital Signs Pt will be able to find a way to take blood pressure at least weekly and pulse daily Goal not achieved Leobardo Herr RN Information not available 07/29/2023 17:05:17 Blood Glucose Maintains blood glucose within target range Goal not achieved Leobardo Herr RN Information not available 09/30/2023 15:18:51 Food Security Reports ability to access and obtain foods to meet nutritional needs Goal not achieved Leobardo Herr RN Information not available 08/25/2023 19:26:31 Exercise Regularly Follows a regular exercise regimen or instructed exercise plan as per care team recommendation( s) Goal not achieved Leobardo Herr RN Information not available 09/30/2023 15:18:51 Follow-up Appointment(s ) Attends referral and/or follow-up appointment(s) as per care team recommendation( s) Goal not achieved Leobardo Herr RN Information not available 09/30/2023 15:19:36 Smoking Cessation Quits smoking Goal not achieved Leobardo Herr RN Information not available 08/25/2023 19:26:31 Activities of Daily Living Performs activities of daily living independently or with minimal assistance Goal not achieved Leobardo Herr RN Information not available 08/25/2023 19:26:31 Medication Regimen Follows medication regimen as per care team recommendation( s) Goal not achieved Leobardo Herr RN Information not available 09/30/2023 15:18:51 Decreased Alcohol Consumption Reports decreased alcohol consumption as per care team recommendation( s) Goal not achieved Leobardo Herr RN Information not available 08/25/2023 19:26:32 Stroke/TIA Risk Reduction Reduces risk factors for stroke Goal not achieved Leobardo Herr RN Information not available 08/25/2023 19:26:32 Effective Coping Manages life events with effective coping methods Goal not achieved Leobardo Herr RN Information not available 08/25/2023 19:26:32 Chronic Disease Symptom Management Reports no new or worsening symptoms Goal not achieved Leobardo Herr RN Information not available 09/30/2023 15:19:36 Vaccination Status Remains up to date on vaccines as per care team recommendation( s) Goal not achieved Leobardo Herr RN Information not available 08/25/2023 19:26:32 Heart Rate Control Achieves target heart rate as defined by care team Goal not achieved Leobardo Hrer RN Information not available 08/25/2023 19:26:32 Diet Adherence Follows prescribed or recommended diet Goal not achieved Leobardo Herr RN Information not available 09/30/2023 15:18:51 Fall Safety Reports no recent falls and/or fall injuries Goal not achieved Leobardo Herr RN Information not available 08/25/2023 19:26:33 Knowledge of Disease or Condition Demonstrates understanding of disease(s) or condition(s) Goal not achieved Leobardo Herr RN Information not available 09/30/2023 15:19:36 Financial Stability Reports financial status and/or income meets needs Goal not achieved Leobardo Herr RN Information not available 08/25/2023 19:26:33 Chronic Condition Action Plan Follows action plan for any worsening of chronic condition(s) as per care team recommendation( s) Goal not achieved Leobardo Herr RN Information not available 09/30/2023 15:19:36 Lipid Levels Maintains normal lipid levels as defined by care team Goal not achieved Leobardo Herr RN Information not available 08/25/2023 19:26:33 Weight Maintenance Exhibits stable weight with normal fluctuation Goal not achieved 024 Leobardo Herr RN Information not available 08/25/2023 19:26:33 Blood Pressure Maintains blood pressure goal as defined by care team Goal not achieved 024 Leobardo Herr RN Information not available 08/25/2023 19:26:33 Health Concerns Section Related Observation LastModified by Organization Detai ls LastModified Time Not Available Not Available Not Available Not Availabl e Concern Status LastModified by Organization Details LastModified Time Benign essential hypertension Active Leobardo Herr RN Not Available 07/29/2023 1 7:05:17 Hyperglycemia Active Leobardo Herr RN Not Available 07/29/2023 17:05:59 Atrial fibrillation Active Leobardo Herr RN Not Hannah ilable 07/29/2023 17:04:39 Type 2 diabetes mellitus without complication Active Leobardo Herr RN Not Available 09/30/2023 1 5:18:51 Hyperlipidemia Active Leobardo Herr RN Not Availabl e 08/25/2023 19:24:56 Obstructive sleep apnea syndrome Active Leobardo Herr RN Not Available 09/30/2023 1 5:19:36 Advance Directives Directive N: Info given Payers Encounter Date Sequence Insurance Name Policy Number Policy Styles Covered Member ID Styles Member ID Guarantor Name 09/09/2023 1 [place] Yulia A Mangi [id number] 5 Yulia A Mangi 09/09/2023 2 [employer] (MEDICARE SUPPLEMENT) Yulia A Mangi [id number] Yulia A Mangi 09/30/2023 1 [place] Yulia A Mangi [id number] 5 Yulia A Mangi 09/30/2023 2 [employer] [place] (MEDICARE SUPPLEMENT) Yulia A Mangi [id number] Yulia A Mangi 10/12/2023 1 [place] Yulia A Mangi [id number] 5 Yulia A Mangi 10/12/2023 2 [employer] [place] (MEDICARE SUPPLEMENT) Yulia A Mangi [id number] Yulia A Mangi 01/11/2024 1 [place] Yulia Shell Mangi [id number] 5 Yulia A Mangi 01/11/2024 2 [employer] [place] (MEDICARE SUPPLEMENT) Yulia Shell Mangi [id number] Yulia Shell Mangi 03/16/2024 1 [place] Yulia Shell Mangi [id number] 5 Yulia Shell Mangi 03/16/2024 2 [employer] (MEDICARE SUPPLEMENT) Yulia A Mangi [id number] Yulia Shell Mangi Notes Date Note Type Note Provider Name and Address Organization Details Recorded Time text/html Patient Name: Yulia Villagomez Of Service: Thursday ( 09.09.2023 ): 1955 Age: 68 There has been approximately a 4 lb weight gain since 03/18/2023. This represents approximately a 1.2% change in weight. Weight change attributable to lifestyle changes. Vital Signs:Blood Pressure: Sitting Rt. Arm 126/80Pulse: Sitting 93 /min and RegularRespiratory Rate: 14Height 70 in or 1.8 mWeight 328 lb or 148.8 kgBMI 47.1Temperature: 97.5 F or 36.4 CDCCT HAIC: 6.4 Calculated MB mg%Pulse Oximetry: 96 % at rest on no oxygen Chief Complaint: Addressed in HPI Problems or conditions discussed in the HPI were the only ones reviewed during the encounter.Only social and family history addressed in the HPI were reviewed during this encounter. Attendant(s): NoneConstitutional and Systemic Symptoms:none Medication Reconciliation: from medication list. Ajaaedwycki46/03/2023: Venous Doppler lower extremities no evidence of DVT. Significant venous insufficient on the right great saphenous vein. History of Present Illness #1. Essential Hypertension: Stage: Stage I Interval Neurological Complaints no headaches, dizziness, weakness, visual changes, ataxia, aphasia and apraxia. No shortness of breath, orthopnea or cardiovascular symptoms. No other symptoms related to end organ damage. Pressure has been under excellent control. Currently normal. No other end organ symptoms or findings. Therapy reviewed regarding management of hypertension and includes salt restriction and Hyzaar and Metoprolol Tartrate. #2. Type II Hypercholesterolaemia: Currently taking medication and tolerating well. No interval complaints of any muscle pain or arthralgia. No significant liver changes with medications. Last lipid panel: fair control. Therapy reviewed regarding treatment of cholesterol management and include diet and Crestor. #3. Type II Diabetes: Has had no polyuria polyphagia or polydipsia. Has had no hypoglycemic like responses. No new history of any numbness, tingling, weakness or visual problems. No nausea, anorexia or other constitutional symptoms. There has been no foot problems or non healing lesions. The last HAIC was DCCT HAIC: 6.4 Calculated MB mg%. Average blood sugars 116-125 mg%. Checking sugars : infrequently Medication Types Include: Metformin Secondary complications include none. Macro-vascular complications include none. Therapy reviewed regarding diabetic management and include Metformin Hydrochloride and diet only Compliance: good Renal Protection: ARBs Lipid management: statins Urinary microalbumin: A1 . Ophthalmological: has seen eye doctor within the last year #4. Colon polyps: Hx of colon polyps. No interval complaints of any bleeding or change in bowel habits. Last colonoscopy was longer than five years ago. #5. Hx of obesity. Currently Class 3 Obesity VT > 40. Has tried numerous dietary support and supplements with no benefit. Instructed on the health consequences of the obese status particularly cancer - diabetes and heart disease. Discussed other modalities of weight loss GLP-1 medications that are used to treat diabetes and other appetite depressants. Potential candidate for bariatric surgery: No. Wishes to be evaluated by Dietary: No and was offered to be evaluated and instructed by harness cutter on weight loss diet. Active Medication ListAspirin 325 MG One Daily For Vascular ProphylaxisHyzaar 25 MG-100 MG (TABLET - ORAL) Take One Tablet DailyVitamin B12 1000 MCG DailyVitamin C 500 MG Once DailyMetoprolol Tartrate 25 MG (TABLET - ORAL) One Twice A DayZetia 10 MG TABLET One DailyCrestor 20 MG TABLET, FILM COATED Once DailyMetformin Hydrochloride 500 MG (TABLET - ORAL) One Bid Adverse Drug Reactions ReviewedLisinopril CoughDiovan CoughNorvasc Palpitations Vaccination and Rknhpyfbqajt1915-08 Axupeewtt7708-43 Covid Kexqge7647-71 Prevnar 13 Js8610-80 Influenza Surgical Oumbjmt9557-41 Ultrasound Guided Biopsy Rt. Bbxhvh8242-63 Robotic RJA1162-74 Lap Wuunmcfskhtnvgg7603-61 C-Asknpxm7534-19 M-Lobzxie7226-02 Preventative Irwgnkp6407/01/2023 HAIC 6.4 % OF TOTAL HGB H003/30/2023 ALBUMIN 3.9 G/DL N003/30/2023 MICRO ALBUMIN 1.2 MG/DL N011/13/2021 MAMMOGRAM / DEXA SCAN11/30/2013 COLONOSCOPY (5 YEARS) 11/30/2018 Social HistoryDoes not smoke or drink Family HistoryMother living 93 has essential hypertension and uterine cancerFather 68 from arteriosclerotic heart disease and PEFour brothers all living good healthThree sisters all living and in good healthMenarche 12 Menopause A0 TEST RESULT RANGE UNITSHEMOGLOBIN A1C Date: 07/01/2023HEMOGLOBIN A1C 6.4 <5.7 % OF TOTAL HGBLIPID PANEL, STANDARD Date: 4CHOLESTEROL, TOTAL 133 <200 MG/DLHDL CHOLESTEROL 51 > OR = 50 MG/DLTRIGLYCERIDES 120 <150 MG/DLLDL-CHOLESTEROL 61 MG/DL (CALC)CBC (INCLUDES DIFF/PLT) Date: 03/30/2023WHITE BLOOD CELL COUNT 6.3 3.8-10.8 THOUSAND/ULHEMOGLOBIN 13.2 11.7-15.5 G/DLHEMATOCRIT 40.4 35.0-45.0 %PLATELET COUNT 274 140-400 THOUSAND/ULCOMPREHENSIVE METABOLIC PANEL Date: 03/30/2023SODIUM 140 135-146 MMOL/LPOTASSIUM 3.7 3.5-5.3 MMOL/LGLUCOSE 123 65-99 MG/DLUREA NITROGEN (BUN) 19 7-25 MG/DLCREATININE 0.78 0.50-1.05 MG/DLEGFR 82 > OR = 60 ML/MIN/1.73X2VEQFXBKJQ, TOTAL 0.6 0.2-1.2 MG/DLALKALINE PHOSPHATASE 57 37-153 U/LAST 10 10-35 U/LALT 13 6-29 U/L López Kirk MD [address] [facility], [facility] [address], [place], [address], [place] [facility] [employer] 09/09/2023 16:56:09 4 text/html Pt doing well and has no complaints other than back pain, as she is going to chiropractor López Kirk MD [address], [facility] [address], [place], [address], [facility] [employer] [facility] [employer] [facility] 09/30/2023 11:24:06 4 text/html . Patient is 68-year-old female she follows up for follow-up on routine foot care for diabetes. Patient states overall she is doing well she states that the insoles are helping for the metatarsalgia she continues have numbness and tingling of her feet. Patient denies any open wounds or infection she continues hammertoes without any infection. Patient denies wanting any surgery for this. Patient denies any other complaints. Brodie Harrison DPM [address], [address], [place], [address], [employer] [facility] 10/12/2023 15:44:05 4 text/html . Patient is a 68-year-old female diabetic who returns to the office for diabetic foot care and complaints of bilateral heel pain worse to the left foot. Patient denies any injury to the foot she states that when she is walking or standing she has a bruising sensation under the heel. Patient states when she is at rest it feels better. Patient denies any other complaints. Brodie Harrison DPM [address], [address], [place], [address], [facility] [employer] [facility] [employer] [facility] 01/11/2024 15:44:52 5 text/html Patient Name: Yulia Villagomez Of Service: Thursday ( 03.16.2024 ): 1955 Age: 68 There has been approximately a 9 lb weight loss since 09/09/2023. This represents approximately a 2.7% change in weight. Weight change attributable to lifestyle changes. Vital Signs:Blood Pressure: Sitting Rt. Arm 140/100Pulse: Sitting 76 /min and IrregularRespiratory Rate: 16Height 70 in or 1.8 mWeight 319 lb or 144.7 kgBMI 45.8Temperature: 97 F or 36.1 CPulse Oximetry: 96 % at rest on no oxygen Chief Complaint: Addressed in HPI Problems or conditions discussed in the HPI were the only ones reviewed during the encounter.Only social and family history addressed in the HPI were reviewed during this encounter. Attendant(s): NoneConstitutional and Systemic Symptoms:none Medication Reconciliation: from medication list. Xmvgoivaqlg02/03/2023: Venous Doppler lower extremities no evidence of DVT. Significant venous insufficient on the right great saphenous vein. History of Present Illness #1. Essential Hypertension: Stage: normal Interval Neurological Complaints no headaches, dizziness, weakness, visual changes, ataxia, aphasia and apraxia. No shortness of breath, orthopnea or cardiovascular symptoms. No other symptoms related to end organ damage. Pressure has been under fair control. Currently normal. No other end organ symptoms or findings. Therapy reviewed regarding management of hypertension and includes salt restriction and Hyzaar and Metoprolol Tartrate. #2. Atrial Fibrillation: Type: Persistent with recurrent episodes lasting longer than 7 days. Further classification: Non-valvular. Associated history of HTN and diabetes. No attending hx of any shortness of breath, palpitations, syncopal or neurological symptoms. Current medications: Metoprolol Tartrate. Rate control: rapid ventricular response [id number] Criteria: hypertension, Age 65-74 and Diabetes for embolic phenomenon. Anticoagulation: Eliquis #3. Type II Hypercholesterolaemia: Currently taking medication and tolerating well. No interval complaints of any muscle pain or arthralgia. No significant liver changes with medications. Last lipid panel: fair control. Therapy reviewed regarding treatment of cholesterol management and include diet and Crestor. #4. Type II Diabetes: Has had no polyuria polyphagia or polydipsia. Has had no hypoglycemic like responses. No new history of any numbness, tingling, weakness or visual problems. No nausea, anorexia or other constitutional symptoms. There has been no foot problems or non healing lesions. The last HAIC was DCCT HAIC: 6.3 Calculated MB mg%. CGM: No. Average blood sugars 116-125 mg%. Checking sugars : several times a week. Medication Types Include: Metformin and GLP-1 Secondary complications include none. Macro-vascular complications include none. Therapy reviewed regarding diabetic management and include Metformin Hydrochloride and Mounjaro Compliance: good Renal Protection: ARBs Lipid management: statins Urinary microalbumin: A1 . Ophthalmological: has seen eye doctor within the last year. Control: Below 6.2 #5. Hx of obesity. Currently Class 3 Obesity VT > 40. Has tried numerous dietary support and supplements with no benefit. Instructed on the health consequences of the obese status particularly cancer - diabetes and heart disease. Discussed other modalities of weight loss GLP-1 medications that are used to treat diabetes . Potential candidate for bariatric surgery: No. Wishes to be evaluated by Dietary: No and was offered to be evaluated and instructed by harness cutter on weight loss diet. Active Medication ListHyzaar 25 MG-100 MG (TABLET - ORAL) Take One Tablet DailyVitamin B12 1000 MCG DailyVitamin C 500 MG Once DailyMetoprolol Tartrate 25 MG (TABLET - ORAL) One Twice A DayZetia 10 MG TABLET One DailyCrestor 20 MG TABLET, FILM COATED Once DailyMetformin Hydrochloride 500 MG (TABLET - ORAL) One BidEliquis 5 MG TABLET, FILM COATED One Twice A DayMounjaro 2.5 MG/.5ML INJECTION, SOLUTION Weekly Adverse Drug Reactions ReviewedLisinopril CoughDiovan CoughNorvasc Palpitations Vaccination and Immunization(X) 2007- INFLUENZA(X) 2020- COVID PFIZER( ) 2019- PREVNAR 13 GC( ) 2021- PNEUMOVAX Surgical [id number] Ultrasound Guided Biopsy Rt. [id number] Robotic [id number] Lap [id number] E-[id number] X-[id number] Preventative Testing( ) 02/01/2024 Albumin 3.7 G/DL( ) 02/01/2024 HAIC 6.3 % H( ) 03/30/2023 Micro Albumin 1.2 MG/DL N(X) 11/13/2021 Mammogram 11/14/2023(X) 11/13/2021 DEXA Scan 11/14/2023(X) 11/30/2013 Colonoscopy (5 Years) 11/30/2018 Social HistoryDoes not smoke or drink Family HistoryMother living 93 has essential hypertension and uterine cancerFather 68 from arteriosclerotic heart disease and PEFour brothers all living good healthThree sisters all living and in good healthMenarche 12 Menopause A0 TEST RESULT RANGE UNITSCBC/COMPLETE BLD COUNT W/DIFF Date: 02/01/2024WHITE BLOOD CELLS 6.1 4.2-10.8 X10'3/ULHEMOGLOBIN 12.6 12.0-15.6 G/DLHEMATOCRIT 38.4 35.7-45.7 %PLATELETS 304 150-400 X10'3/ULCOMPREHENSIVE METABOLIC PANEL Date: 02/01/2024SODIUM 136 137-145 MMOL/LPOTASSIUM 4.1 3.5-5.1 MMOL/LGLUCOSE 133 70-99 MG/DLBUN 18 8-19 MG/DLCREATININE 0.86 0.66-1.25 MG/DLGFR >60ALKALINE PHOSPHATASE 49 38-126 U/LALANINE AMINOTRANSFERASE 20 0-35 U/LASPARTATE AMINOTRANSFERASE 20 15-37 U/LBILIRUBIN, TOTAL 0.90 0.20-1.30 MG/DLCALCIUM 9.8 8.4-10.2 MG/DLHEMOGLOBIN A1C Date: 02/01/2024HA1C 6.3 4.0-6.0 %LIPID PANEL Date: 02/01/2024HOLESTEROL 126 140-199 MG/DLTRIGLYCERIDES 115 0-150 MG/DLHDL CHOLESTEROL 55 40- MG/DLLDL CHOLESTEROL, CALCULATED 48 0-130 MG/DLMAGNESIUM Date: 02/01/2024MAGNESIUM 1.9 1.6-2.3 MG/DLNT-PRO BNP Date: 02/01/2024NT-PRO BNP 1470 0-221 PG/MLT3 TOTAL Date: 02/01/2024T3, TOTAL 1.190 0.970-1.690 NG/MLT4 FREE Date: 02/01/2024FREE T4 0.91 0.78-2.19 NG/DLTSH Date: 02/01/2024THYROID-STIMULA TING HORMONE 2.880 0.465-4.680 UIU/ML López Kirk MD [address] [facility], [facility] [address], [place], [address], [place] [facility] [employer] [facility] 03/16/2024 17:15:18 OBGyn Episode No OBEpisode recorded.
--- OUTSIDE RECORDS SUMMARY | 2024-03-26 23:30 | XMS_ITS | Clinical Summary ---
Author Organization [facility] Address [address] [place] [address] Care Team Providers Care Head Of Design Name Role Phone Walt Kirk MD Primary Care Provider Venu Leon MD Unavailable [phone] Allergies Active Allergy Reactions Criticality Noted Date [...] of endometrium (CMS/H CC) 01/24/2019 Atrial fibrillation ([facility]/HCC) 08/16/2018 Endometrial cancer ([facility]/HCC) 07/30/2018 Cancer Staging:Pathologic stage from 08/16/2018:Stage IIIC1(pT1b, pN1mi(sn), cM0) - Signed by Tyler Haney MD PhD on 09/20/2018 Overview (07/30/2018): Added automatically from request for surgery [id number] Essential hypertension 07/30/2018 Morbid obesity 07/30/2018 Diabetes [...] Pneumococcal Polysaccharide PPV23 08/28/2021 Sars-CoV-2, Unspecified 05/06/2020,04/14/2020 Surgical History Surgery Date Site/Laterality Comments SECTION 1990, 1983, 1977 CHOLECYSTECTOMY 03/02/1999 - 03/01/2000 DILATION AND CURETTAGE OF UTERUS 07/14/2018 COLONOSCOPY APPENDECTOMY 03/02/1977 - 03/01/1978 HYSTERECTOMY Medical History Medical History Date Comments Hypertension Endometrial cancer (CMS/HCC) (HCC) Morbidly obese (HCC) Obstructive sleep apnea syndrome 10/29/2020 Family History Medical History Relation Name Comments Cancer Brother Heart attack Brother Pulmonary embolism Father Hypertension Mother Anesthesia problems Neg Hx Relation Name Status Comments Brother Alive Father of PE age 68 Mother Alive Sister Alive Social History Tobacco Use Types Packs/Day Years [...] on file Legal Sex 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 Gender Identity Not on file Sexual Orientation Not on file Obstetrics History Para Term AB IAB SAB Ectopic Multiple Livin g Live Births 3 3 3 3 Date Outcome GA Total Labor Labor/2nd/3rd Weight Sex Type Anes PTL Birdie A1 A5 Name Clin Term Term Term Last Filed Vital Signs Vital Sign Reading [...] 05/22/2023 12:00 PM CDT Plan of Treatment Health Maintenance Due Date Last Done Comments Albumin Creatinine Ratio, Urine 1953 Breast Cancer Screening-Mammogram 1953 Colon Cancer Screening-Colonoscopy 1953 Depression Screening 1953 Fall Risk Assessment 1953 Hemoglobin A1C 1953 Hepatitis C Screening 1953 Osteoporosis Screening-Bone Density Scan 1953 eGFR 1953 Dilated Eye Exam 1953 Foot Exam 1953 Lipid Panel 1953 DTaP/Tdap/Td Vaccine (1 - Tdap) 1964 Hepatitis B Screening 1971 Zoster Vaccine (1 of 2) 2003 Well Visit 65+ 2018 Covid-19 Vaccine (5 - 2023-2 5 season) 2023 05/06/2020, 05/06/2020, 04/14/2020, Additional history exists Influenza Vaccine (#1) 2023 , 12/01/2019, 12/31/2018, Additional history exists Pneumococcal vaccine 65+ Completed 08/28/2021, 01/02 Insurance MEDICARE [facility] MEDICARE [facility] MEDICARE [facility] Advance Directives For more information, please contact: [phone] * Full Code (Latest Code Status on File) Date Activated Date Inactivated Comments 08/16/2018 1:35 PM 08/17/2018 7:26 PM Care Teams Head Of Design Relationship Specialty Start Date End Date Walt Kirk MD [address] [facility] [address] [place] [address] PCP - General Internal Medicine 07/20/18 Venu Leon MD [address] [place] [address] Referring Physician Obstetrics and Gynecology 07/20/18
--- OUTSIDE RECORDS SUMMARY | 2024-03-26 23:30 | XMS_ITS ---
Author Organization [facility] Address [address] [place] [address] Care Team Providers Care Chuck Splitter Name Role Phone Walt Kirk MD Primary Care Provider Venu Leon MD Unavailable [phone] Active Problems Problem Noted Date Diagnosed Date [...] of endometrium (CMS/H CC) 01/24/2019 Atrial fibrillation (CMS/HCC) 08/16/2018 Endometrial cancer (CMS/HCC) 07/30/2018 Cancer Staging:Pathologic stage from 08/16/2018:Stage IIIC1(pT1b, pN1mi(sn), cM0) - Signed by Tyler Haney MD PhD on 09/20/2018 Overview (07/30/2018): Added automatically from request for surgery [id number] Essential hypertension 07/30/2018 Morbid obesity 07/30/2018 Diabetes mellitus 07/19/2018 History of adenomatous polyp of colon 07/19/2018 History of colonic polyps 07/19/2018 Edema 07/14/2016 Hyperkalemia 06/10/2007 Chest pain, unspecified 03/02/1959 Current Oncology Plans No current plan information found. Past Plans No past plan information found. Radiation Treatments * Plan Last Treated On Elapsed Days Fractions Treated Prescribed Fraction Dose Prescribed Total Dose PELVIS # 12/15/2018 54 32 160 cGy 5,120 cGy Reference Point Last Treated On Elapsed Days Session Dose Total Dose Pelvis 12/15/2018 54 160 cGy 5,120 cGy
--- NOTE | 2024-03-26 23:43 | ED_ITS ---
HPI - Arrhythmia/Palpitations General Chief Complaint: Arrhythmia/Palpitations Stated Complaint: SOB, WEAK, AFIB X 3 DAYS. Time Seen by Provider: 03/26/24 23:05 History of Present Illness HPI narrative: 68-year-old female with a past medical history including hypertension, diabetes, recently diagnosed AFib at the end of January. She was cardioverted after a transesophageal echocardiogram at [facility] in January of last year. Patient states that she has been having symptoms of AFib for last 3 days where she feels weak, exertionally dyspneic, feeling of her heart rate is rapid. Patient states she has also been having URI symptoms for last day and has had sick contacts at home. Patient states she takes Eliquis and metoprolol twice daily and has not missed any dosages. Today she had a fall without head trauma and was not able to get up secondary to weakness so she called an ambulance for assistance. Patient denies any chest pain at this time. No associated syncope. Related Data Home Medications ?Medication ?Instructions ?Recorded ?Confirmed ?Last Taken ?Type aspirin 325 mg tablet,delayed 325 mg PO DAILY 03/19/22 01/06/24 Unknown History release (Aspir-Ketty) losartan 100 1 tablet PO DAILY 03/19/22 01/06/24 Unknown History mg-hydrochlorothiazide 25 mg tablet metformin 500 mg tablet 500 mg PO BID 03/19/22 01/06/24 Unknown History metoprolol tartrate 25 mg tablet 25 mg PO BID 03/19/22 01/06/24 Unknown History rosuvastatin 20 mg tablet 20 mg PO DAILY 01/01/23 01/06/24 Unknown History ezetimibe 10 mg tablet 10 mg PO DAILY 01/07/23 01/06/24 Unknown History cyanocobalamin (vitamin B-12) 2 tablet PO DAILY 01/06/24 01/06/24 Unknown History Allergies Allergy/AdvReac Type Severity Reaction Status Date / Time No Known Allergies Allergy Verified 03/26/24 22:18 Review of Systems 2 Review of Systems: [facility] Past Medical History Medical History History of endometrial cancer Sleep apnea High cholesterol Diabetes Hypertension Surgical History Surgical History History of total hysterectomy (~2018) History of cholecystectomy (~1998) History of 1977, 1983, 1990 Family History Family History Mother Uterine cancer Daughter Thyroid cancer Sibling Spinal cord cancer Social History Social History Smoking status: Unknown if ever smoked Alcohol intake: never Lack of Transportation: No Lack of Food: Never True Current Housing: I Have Housing Concerned About Future Housing: No Difficulty Paying Gas/Electric Bills: No Difficulty Paying for Meds: No Currently Unemployed: No Education: High School Diploma/GED Difficulty w/ Childcare or Family Care: No Living arrangements: with family Spiritual care concerns: No Exam 2 Narrative: GENERAL: [Well-appearing, well-nourished, and in no acute distress.] HEAD: [Normocephalic, atraumatic.] EYES: [PERRLA and EOMI.] ENT: Nares clear, no rhinorrhea or epistaxis. Mucous membranes moist. NECK: Supple. CHEST: Coarse asymmetric breath sounds right worse than left, no respiratory distress. HEART: Irregular rate, tachycardic rhythm consistent with AFib. No murmur heard. [Normal peripheral pulses.] ABDOMEN: [Soft, nondistended], [nontender], [No rigidity or guarding] EXTREMITIES: Normal range of motion. [No edema.] No calf asymmetry SKIN: Warm, dry, no rash. NEURO: [No focal deficits]. Alert and oriented [x3.] PSYCH: [Normal mood and affect.] Course Vital Signs Vital signs: Vital Signs Temperature 37.0 C 03/26/24 22:10 Pulse Rate 106 H 03/26/24 22:10 Respiratory Rate 20 03/26/24 22:10 Blood Pressure 111/59 L 03/26/24 22:10 Pulse Oximetry 92 03/26/24 22:10 Oxygen Delivery Room Air 03/26/24 22:10 Temperature 36.8 C 03/27/24 07:01 Pulse Rate 104 H 03/27/24 07:01 Respiratory Rate 18 03/27/24 07:01 Blood Pressure 114/53 L 03/27/24 07:01 Pulse Oximetry 94 03/27/24 07:01 Oxygen Delivery Nasal Cannula 03/27/24 00:21 Oxygen Flow Rate 2 03/27/24 00:21 MDM - Arrhythmia/Palpitations MDM Narrative Medical decision making narrative: 68-year-old female with a history of recently diagnosed atrial fibrillation at the end of January status post SHAYY and cardioversion she is presently taking Eliquis b.i.d. as well as metoprolol for chronic hypertension in addition to rate control. Patient states she has been feeling palpitations, short of breath, exertionally dyspneic for last 3 days. Feels like her heart rate has been rapid recently. Had a fall today without any associated head trauma or syncope. Does take Eliquis without missed dosages. Previous cardiology at [facility] with Dr. Castillo. Patient is found to be hypoxic on EMS arrival requiring oxygen supplementation. Presently she is route to wean 88 and 92% saturation on 2 L nasal cannula. She has no chest pain or discomfort at this time. States she has had a nonproductive cough that has clear breath sounds bilaterally. Pulses rapid at a rate of 100-112 within a regular rhythm, blood pressure stable of 111/59. No fever or tachypnea. Considerations presently are for AFib RVR, pneumonia, pulmonary embolism. Given her fall today without head trauma she is still high risk given that she is on Eliquis and above the age of 65 per [place] head CT rules. CT scan was obtained in addition to CT angiography for chest to rule out thromboembolic event. Troponins, BNP, EKG and cardiac workup ordered. She was placed on pulse oximetry, manager monitoring and 2 L nasal cannula. Workup shows a leukocytosis of 13.4, no anemia. Electrolytes show some derangements including potassium 3.0, magnesium 1.9. She had a potassium repletion at this time including 40 mg p.o.. Normal renal function, slightly hyperglycemic 193. Negative troponin x2. BNP mildly elevated 1690. Negative lipase. COVID flu RSV swabs negative. Chest x-ray shows bibasilar airspace disease consistent with pneumonia. Small right-sided pleural effusion. CT shows no pulmonary embolism, aortic dissection or aneurysm. Extensive right lower lobe pneumonia is seen. Head CT without any findings. Patient was re-evaluated, heart rate still around the low 100's and appears to be AFib. Still requiring oxygen at this time. She was started on Rocephin and azithromycin for community-acquired pneumonia coverage given her CT findings. We gave her potassium repletion and dose of her oral metoprolol 25 mg. No need for any aggressive control of her heart rate given the lack of significant RVR and likely reactive to her acute infectious process. I discussed the case with the hospitalist currently being covered by [facility]. She was accepting the patient to a medical telemetry bed at this time for continued treatment. Medical Records Attestation: I reviewed the patient's medical records. Lab Data Attestation: I reviewed the patient's lab results. 03/27/24 00:03 03/27/24 00:03 Labs: Lab Results 03/27/24 03/27/24 03/27/24 Range/Units 00:02 00:03 03:28 WBC 13.4 H (4.5-10.0) K/mm3 RBC 4.26 (4.2-5.4) M/mm3 Hgb 13.0 (12.0-15.0) g/dL Hct 38.6 (37.0-47.0) % MCV 90.6 (80-100) fl MCH 30.5 (26-34) pg MCHC 33.7 (32-36) g/dl RDW 15.0 H (11.5-14.5) % Plt Count 194 (150-375) k/mm3 MPV 9.2 (7.4-10.4) fl Immature Gran % (Auto) 0.4 (0-0.5) % Neut % (Auto) 92.0 H (45.5-73.1) % Lymph % (Auto) 2.2 L (18.3-44.2) % [place] % (Auto) 5.0 (2.6-8.5) % Eos % (Auto) 0.1 (0-4.4) % Baso % (Auto) 0.3 (0.2-1.2) % Lymph # (Auto) 0.29 L (0.9-3.2) K/mm3 [place] # (Auto) 0.7 H (0.1-0.6) K/mm3 Eos # (Auto) 0.0 (0-0.3) K/mm3 Baso # (Auto) 0.0 (0.0-0.1) K/mm3 Abs Immat Gran (auto) 0.05 H (0.00-0.031) K/mm3 Absolute Neuts (auto) 12.3 H (1.3-6.7) K/mm3 Absolute Nucleated RBC 0.000 (0.0-0.012) K/mm3 Nucleated RBC % 0.0 (0.0-0.2) % PT 17.7 H (11.1-14.7) Seconds INR 1.4 APTT 32.0 (22.3-36.8) Seconds Sodium 131 L (137-145) mmol/L Potassium 3.0 L (3.4-5.0) mmol/L Chloride 94 L (98-107) mmol/L Carbon Dioxide 30 (22-30) mmol/L Anion Gap 7 (4-12) mmol/L BUN 20 H (7-17) mg/dL Creatinine 0.76 (0.7-1.0) mg/dL Estim Creat Clear Calc 93 ml/min Estimated GFR > 60 (59 - ) Glucose 193 H (65-110) mg/dL Calcium 8.3 L (8.4-10.2) mg/dL Magnesium 1.9 (1.6-2.3) mg/dL Total Bilirubin 1.8 H (0.2-1.3) mg/dL AST 18 (14-36) U/L ALT 17 (6-35) U/L Alkaline Phosphatase 65 (38-126) U/L Troponin I 0.029 0.024 (0.000-0.034) ng/mL NT-Pro-B Natriuret Pep 1690 H (19.9-100) pg/mL Total Protein 6.0 L (6.3-8.2) g/dL Albumin 3.3 L (3.5-5.1) g/dL Lipase 31 (23-300) U/L Influenza A (RT-PCR) Negative (Negative) Influenza B (RT-PCR) Negative (Negative) RSV (RT-PCR) Negative (Negative) SARS-CoV-2 RNA (RT-PCR) Negative (Negative) Imaging Data Attestation: I personally reviewed and interpreted this imaging study as follows: My impression: Right-sided lower lobe pneumonia. No PE Critical Care Time Critical Care Time Critical Care Time: Yes Total Critical Care Time: 35 Discharge Plan Discharge Clinical Impression: Community acquired pneumonia, Atrial fibrillation, Acute hypoxic respiratory failure Patient Disposition: Still a Patient Condition: Stable
[2024-03-27] VITALS (62 sets, daily range): BP systolic 103–169; BP diastolic 53–133; PULSE 0–156; RESP 14–45; TEMP 36.8–39.5; O2SAT 89–99
[2024-03-27 00:12] LABS: Basophils Percent Auto 0.3 % (0.2-1.2); Eosinophils Percent Auto 0.1 % (0-4.4); Hematocrit 38.6 % (37.0-47.0); Immature Granulocyte Absolute 0.05 K/mm3 (0.00-0.031); Immature Granulocyte Percent A 0.4 % (0-0.5); Lymphocytes Absolute Auto 0.29 K/mm3 (0.9-3.2); Lymphocytes Percent Auto 2.2 % (18.3-44.2); Mean Corpuscular HGB Conc 33.7 g/dl (32-36); Mean Corpuscular Hemoglobin 30.5 pg (26-34); Mean Corpuscular Volume 90.6 fl (80-100); Mean Platelet Volume 9.2 fl (7.4-10.4); Monocytes Absolute Auto 0.7 K/mm3 (0.1-0.6); Neutrophils Absolute Auto 12.3 K/mm3 (1.3-6.7); Platelet Count Result 194 k/mm3 (150-375); Red Blood Count 4.26 M/mm3 (4.2-5.4); White Blood Count 13.4 K/mm3 (4.5-10.0)
[2024-03-27 00:20] LABS: Alanine Aminotransferase 17 U/L (6-35); Albumin Level 3.3 g/dL (3.5-5.1); Alkaline Phosphatase 65 U/L (38-126); Anion Gap 7 mmol/L (4-12); Aspartate Amino Transferase 18 U/L (14-36); Bilirubin,Total 1.8 mg/dL (0.2-1.3); Blood Urea Nitrogen 20 mg/dL (7-17); Calcium 8.3 mg/dL (8.4-10.2); Carbon Dioxide 30 mmol/L (22-30); Chloride 94 mmol/L (98-107); Estimated CRCL calculation 93 ml/min; Estimated Glomerular Filt Rate > 60; Glucose 193 mg/dL (65-110); Lipase 31 U/L (23-300); Sodium 131 mmol/L (137-145)
--- NOTE | 2024-03-27 00:22 | PC.NURSE ---
Patient placed on 2L via NC for RA sat of 90%.
[2024-03-27 00:23] LABS: INR 1.4; Prothrombin Time 17.7 Seconds (11.1-14.7)
[2024-03-27 00:32] LABS: NT Pro B Type Natriuretic Pept 1690 pg/mL (19.9-100); Troponin I 0.029 ng/mL (0.000-0.034)
[2024-03-27 00:47] LABS: Influenza A QL RT-PCR Negative (Negative); Influenza B QL RT-PCR Negative (Negative); RSV RNA, RT-PCR Negative (Negative); SARS-CoV-2 RNA PCR Negative (Negative)
--- NOTE | 2024-03-27 03:13 | ECG_ITS ---
Test Date: 2024-03-27 03:17:33 Measurements Intervals [place] Rate: 114 P: 0 NV: 0 QRS: -46 QRSD: 114 T: 123 QT: 333 QTc: 460 Interpretive Statements ATRIAL FIBRILLATION WITH RAPID VENTRICULAR RESPONSE LEFT ANTERIOR FASCICULAR BLOCK [QRS AXIS <= -45, QR IN I, RS IN II] VOLTAGE CRITERIA FOR LVH [MEETS CRITERIA IN ONE OF: R(aVL), S(V1), R(V5), R(V5/V6)+S(V1)] POSSIBLE SEPTAL MYOCARDIAL INFARCTION , OF INDETERMINATE AGE [30 ms Q WAVE IN V1/V2] MODERATE T-WAVE ABNORMALITY, CONSIDER LATERAL ISCHEMIA [-0.1+ mV T WAVE IN I/aVL/V5/V6] Compared to ECG 03/26/2024 22:21:10 Left-axis deviation no longer present Myocardial infarct finding still present T-wave abnormality still present Electronically Signed On 03-27-2024 22:11:08 WEBSPHERE MESSAGE BROKER DEVELOPER by Beatrice Ramos M.D.
[2024-03-27 03:58] LABS: Troponin I 0.024 ng/mL (0.000-0.034)
--- NOTE | 2024-03-27 04:18 | PC.NURSE ---
Patient did ambulate from her room to bathroom and back with her cane with steady gait. Patient stated she felt sob and O2 was 88% on RA, her normal at home, upon returning to room. ERP notified. Patient was placed back on 2L via NC.
[2024-03-27] MEDS: METOPROLOL TARTRATE 25 MG TABLET PO ×2 (04:33→16:07)
[2024-03-27] MEDS: POTASSIUM CHLORIDE 20 MEQ PACKET (FOR LIQUID) 40 MEQ PO (04:33)
[2024-03-27] MEDS: cefTRIAXone 2 GM/NS 100 ML 2 GM/100 ML BAG IVPB (04:35)
[2024-03-27] MEDS: SODIUM CHLORIDE 0.9% IV 1,000 ML 999 ML IV CONT ×2 (04:35→15:17)
[2024-03-27 04:54] LABS: Magnesium 1.9 mg/dL (1.6-2.3)
[2024-03-27] MEDS: AZITHROMYCIN 500 MG/NS 250 ML 500 MG/250 ML BAG 250 MG IVPB (06:22)
--- NOTE | 2024-03-27 07:18 | ECG_ITS ---
Test Date: 2024-03-27 07:35:34 Measurements Intervals [place] Rate: 107 P: 0 NV: 0 QRS: -42 QRSD: 113 T: 103 QT: 336 QTc: 449 Interpretive Statements ATRIAL FIBRILLATION WITH RAPID VENTRICULAR RESPONSE MARKED LEFT AXIS DEVIATION [QRS AXIS < -30] VOLTAGE CRITERIA FOR LVH [MEETS CRITERIA IN ONE OF: R(aVL), S(V1), R(V5), R(V5/V6)+S(V1)] POSSIBLE SEPTAL MYOCARDIAL INFARCTION , OF INDETERMINATE AGE [30 ms Q WAVE IN V1/V2] MODERATE T-WAVE ABNORMALITY, CONSIDER LATERAL ISCHEMIA [-0.1+ mV T WAVE IN I/aVL/V5/V6] Compared to ECG 03/27/2024 03:17:33 no chnges Electronically Signed On 03-27-2024 22:09:09 INFLATED BALL MOLDER by Beatrice Ramos M.D.
--- NOTE | 2024-03-27 08:36 | P.HP_ITS ---
H&P: HPI History of Present Illness Date/Time: 03/27/24 08:36 Chief Complaint: fall Narrative: 68 year old female with past medical history of hypertension, diabetes, recent diagnosis of atrial fibrillation, hyperlipidemia, and sleep apnea presents to the hospital for multiple complaints including weakness, exertional dyspnea, and palpitations. Patient had a new diagnosis of atrial fibrillation in February 18. S/p SHAYY with cardioversion in January at [place] with Dr. Castillo. Per patient she was in sinus rhythm for approximately 1 week then converted back into afib. She spoke with Dr. Castillo on 03/14 and was told she will likely require another cardioversion soon. Patient states no medications were changed at that time. She denies missing any doses of her metoprolol and eliquis. She continued to have palpitations and worsening weakness and shortness of breath. She developed a productive cough about 1 week ago. She denies fever, body aches, nausea/vomiting or recent sick contacts. She was then ambulating and lost her balance resulting in a ground level fall. She denies feeling dizzy or lightheaded prior to the fall. She denies loss of consciousness or hitting her head. She was unable to get up and was down for approximately 15 minutes. She denies any pain to the extremities or else where following the fall. At time of assessment patient has no complaints denying chest pain, shortness of breath, palpitations, nausea/vomiting and abdominal pain. She remains on 2L NC and sating well. Continues to be in afib RVR. Given lopressor 5 mg IVx1. Despite IV lopressor she remains in Afib RVR now going into the 160s. Diltiazem IV 15 mg x1 at 13:45, delay in patient getting this medication as she was on a medical floor and RN was unable to push this medication per hospital policy. ICU relief charge nurse came to patients bed side to give this medication. Will transfer to IMU for diltiazem IV 5 ml/hr. Call made to Dr. Lynch who agreed with current treatment, however is rounding at another hospital. Call then made to Dr. Brown to inform her of plan, spoke with RN who took message as she is in a procedure. Patient transferred to IMU. Reported back to patients room and updated her and her family on the plan. She continues to be asymptomatic denying chest pain, shortness of breath and palpitations. She is now having an increased oxygen requirement and is on 4 L NC sat 93% and HR 130-140s. Spoke with RN and she is going to start the diltiazem drip now that the patient is in the IMU. ED workup: CBC with WBC 13.4, H/H 13/38.6, and PLT 194. PT/INR 17.7/1.4. PTT 32. CMP with Na 131, K 3. BUN/Cr 20/0.76 with GFR > 60. Glucose 193. LFT WNL. Troponin negative x2. BNP 1690. Viral panel negative. Head CT with no evidence of intracranial hemorrhage, mass lesion, or acute infarct. Chest XR: Bibasilar pulmonary edema versus bibasilar pneumonia, right worse than left, suspected minimal right pleural effusion, Cardiomegaly. Chest CTA: No evidence of PE, aortic dissection or aortic aneurysm, extensive right lower lobe pneumonia, and probably mildly prominent reactive lymphadenopathy the right axilla and subcarinal region. Review of Systems Review of Systems: All systems reviewed & are unremarkable except as noted in HPI and below [facility] Past Medical History Medical History (Updated 03/27/24 @ 14:46 by Safia Portillo PA-C) Atrial fibrillation History of endometrial cancer Sleep apnea does not use CPAP High cholesterol Diabetes Hypertension Surgical History Surgical History History of total hysterectomy (~2018) History of cholecystectomy (~1998) History of 1977, 1983, 1990 Family History Family History Mother Uterine cancer Daughter Thyroid cancer Sibling Spinal cord cancer Social History Social History (Updated 03/27/24 @ 13:08 by Safia Portillo PA-C) Social History: Patient lives at home with her . No pets in the home. Smoking status: Never smoker Alcohol intake: current Alcohol use details: occasional. Less than once a month. Substance use: never Substance use type: does not use Do You Feel Safe in your Home?: Yes Lack of Transportation: No Lack of Food: Never True Current Housing: I Have Housing Concerned About Future Housing: No Difficulty Paying Gas/Electric Bills: No Difficulty Paying for Meds: YES Currently Unemployed: No Education: Trade/Vocational Certificate Difficulty w/ Childcare or Family Care: No Living arrangements: with family Spiritual care concerns: No Meds Home Medications and Allergies Home Medications ?Medication ?Instructions ?Recorded ?Confirmed ?Type losartan 100 1 tablet PO DAILY 03/19/22 03/27/24 History mg-hydrochlorothiazide 25 mg tablet metformin 500 mg tablet 500 mg PO BID 03/19/22 03/27/24 History metoprolol tartrate 25 mg tablet 25 mg PO BID 03/19/22 03/27/24 History rosuvastatin 20 mg tablet 20 mg PO DAILY 01/01/23 03/27/24 History ezetimibe 10 mg tablet 10 mg PO DAILY 01/07/23 03/27/24 History cyanocobalamin (vitamin B-12) 2 tablet PO DAILY 01/06/24 03/27/24 History apixaban 5 mg tablet (Eliquis) 5 mg PO Q12H 03/27/24 03/27/24 History tirzepatide 2.5 mg/0.5 mL 2.5 mg subcut WEEKLY 03/27/24 03/27/24 History subcutaneous pen injector (Mounjaro) Allergies Allergy/AdvReac Type Severity Reaction Status Date / Time No Known Allergies Allergy Verified 03/27/24 11:06 Vital Signs Vital Signs - 24 hr 03/26/24 22:10 03/26/24 22:16 03/26/24 22:17 Temperature 98.6 F Pulse Rate 106 H 108 H 107 H Respiratory Rate 20 18 23 H Blood Pressure 111/59 L 111/59 L Pulse Oximetry 92 93 92 Oxygen Delivery Room Air Oxygen Flow Rate 03/26/24 22:30 03/26/24 22:30 03/26/24 22:31 Temperature Pulse Rate 104 H 106 H Respiratory Rate 18 20 Blood Pressure 104/59 L Pulse Oximetry 93 Oxygen Delivery Room Air Oxygen Flow Rate 03/26/24 22:45 03/26/24 23:00 03/26/24 23:01 Temperature Pulse Rate 108 H 94 Respiratory Rate 20 20 Blood Pressure 106/64 Pulse Oximetry Oxygen Delivery Oxygen Flow Rate 03/26/24 23:30 03/26/24 23:45 03/27/24 00:00 Temperature Pulse Rate 121 H 111 H 103 H Respiratory Rate 22 H 18 17 Blood Pressure Pulse Oximetry 92 90 91 Oxygen Delivery Oxygen Flow Rate 03/27/24 00:15 03/27/24 00:21 03/27/24 00:26 Temperature Pulse Rate 113 H 103 H Respiratory Rate 20 20 Blood Pressure 104/62 Pulse Oximetry 91 95 94 Oxygen Delivery Nasal Cannula Oxygen Flow Rate 2 03/27/24 00:30 03/27/24 00:31 03/27/24 00:50 Temperature Pulse Rate 96 104 H 111 H Respiratory Rate 19 19 20 Blood Pressure 103/72 Pulse Oximetry 97 97 94 Oxygen Delivery Oxygen Flow Rate 03/27/24 01:00 03/27/24 01:15 03/27/24 01:30 Temperature Pulse Rate 99 112 H 108 H Respiratory Rate 20 19 18 Blood Pressure Pulse Oximetry 95 95 97 Oxygen Delivery Oxygen Flow Rate 03/27/24 01:45 03/27/24 02:01 03/27/24 02:15 Temperature Pulse Rate 107 H 107 H 105 H Respiratory Rate 19 19 19 Blood Pressure Pulse Oximetry 95 93 93 Oxygen Delivery Oxygen Flow Rate 03/27/24 02:30 03/27/24 03:08 03/27/24 03:15 Temperature Pulse Rate 109 H Respiratory Rate 19 Blood Pressure Pulse Oximetry 94 94 93 Oxygen Delivery Oxygen Flow Rate 03/27/24 03:30 03/27/24 03:59 03/27/24 04:00 Temperature Pulse Rate 113 H 122 H Respiratory Rate 18 14 Blood Pressure Pulse Oximetry 93 91 92 Oxygen Delivery Oxygen Flow Rate 03/27/24 04:15 03/27/24 04:30 03/27/24 04:33 Temperature Pulse Rate 116 H 117 H Respiratory Rate 18 18 Blood Pressure Pulse Oximetry 94 93 Oxygen Delivery Oxygen Flow Rate 03/27/24 04:45 03/27/24 05:00 03/27/24 05:15 Temperature Pulse Rate 119 H 103 H 102 H Respiratory Rate 18 16 25 H Blood Pressure Pulse Oximetry 93 97 99 Oxygen Delivery Oxygen Flow Rate 03/27/24 05:20 03/27/24 05:30 03/27/24 05:32 Temperature Pulse Rate 108 H 116 H 96 Respiratory Rate 45 H 18 22 H Blood Pressure 155/133 H 122/66 Pulse Oximetry 98 93 95 Oxygen Delivery Oxygen Flow Rate 03/27/24 05:33 03/27/24 05:45 03/27/24 06:00 Temperature Pulse Rate 104 H 103 H 103 H Respiratory Rate 23 H 19 20 Blood Pressure 122/66 Pulse Oximetry 95 94 95 Oxygen Delivery Oxygen Flow Rate 03/27/24 06:01 03/27/24 06:15 03/27/24 06:30 Temperature Pulse Rate 101 H 102 H 108 H Respiratory Rate 17 18 19 Blood Pressure 134/86 Pulse Oximetry 97 96 98 Oxygen Delivery Oxygen Flow Rate 03/27/24 06:31 03/27/24 06:45 03/27/24 07:00 Temperature Pulse Rate 108 H 111 H 108 H Respiratory Rate 19 18 20 Blood Pressure 132/106 H Pulse Oximetry 98 96 96 Oxygen Delivery Oxygen Flow Rate 03/27/24 07:01 Temperature 98.3 F Pulse Rate 104 H Respiratory Rate 18 Blood Pressure 114/53 L Pulse Oximetry 94 Oxygen Delivery Oxygen Flow Rate Exam Narrative: AF HR 116 RR 20 Spo2 94 BP 150/82 General: female in no acute respiratory distress who is nontoxic appearing, lying semi recumbent in bed. HEENT: Normocephalic. Atraumatic. Extraocular movement intact. Sclera clear and anicteric. No facial asymmetry. Neck: Neck was supple. No dominant adenopathy, thyromegaly or masses. Chest: Lungs are coarse to auscultation worse on the right than left and diminished throughout. No wheezes. CV: Heart was irregularly irregular rhythm and tachycardic. S1-S2. No murmurs, gallops, or rubs. Abd: Abdomen was soft. Nontender. Nondistended. Positive bowel sounds. No organomegaly or masses. Ext: No clubbing, cyanosis, or edema. 2+ DP pulses bilaterally. Neuro: Patient is alert and oriented x4. Strength is 5/5 in both upper and lower extremities. Cranial nerves 2-12 are intact. Speech is clear. Psych: Normal mood and affect. Patient is pleasant and cooperative. Skin: Warm and dry. No rashes noted. H&P: Results Labs Labs: Short CBC 03/27/24 Range/Units 00:03 WBC 13.4 H (4.5-10.0) K/mm3 Hgb 13.0 (12.0-15.0) g/dL Hct 38.6 (37.0-47.0) % Plt Count 194 (150-375) k/mm3 [facility] 03/27/24 00:03 Sodium 131 L Potassium 3.0 L Chloride 94 L Carbon Dioxide 30 BUN 20 H Creatinine 0.76 Glucose 193 H Calcium 8.3 L Cardiac Enzymes 03/27/24 03/27/24 03/27/24 Range/Units 00:03 03:28 07:49 Troponin I 0.029 0.024 0.020 (0.000-0.034) ng/mL Liver Function 03/27/24 Range/Units 00:03 Total Bilirubin 1.8 H (0.2-1.3) mg/dL AST 18 (14-36) U/L ALT 17 (6-35) U/L Alkaline Phosphatase 65 (38-126) U/L Albumin 3.3 L (3.5-5.1) g/dL Covid Lab Results 03/27/24 00:03 SARS-CoV-2 RNA (RT-PCR) Negative (Negative) Impressions Chest X-Ray 03/27/24 06:18 Impression: Bibasilar pulmonary edema versus bibasilar pneumonia, right worse than left. Correlate clinically. Suspected minimal right pleural effusion. Cardiomegaly. Chest CTA 03/27/24 06:41 Impression: No evidence of pulmonary embolus, aortic dissection, or aortic aneurysm. Extensive right lower lobe pneumonia. Probable mildly prominent reactive lymphadenopathy the right axilla and subcarinal region. Head CT 03/27/24 06:45 Impression: No significant abnormality seen. Assessment and Plan Assessment and plan (1) Sepsis: Code(s): A41.9 - Sepsis, unspecified organism Status: Acute Assessment and Plan: Meets SIRS criteria: WBC, tachycardia, temp - lactic acid: ordered - 1L sepsis bolus ordered - suspected source: pneumonia - blood cultures drawn on 02/24: ordered - antibiotics: azithromycin ceftriaxone given in the ED on 03/27, broadened to cefepime given sepsis - Chest XR: Bibasilar pulmonary edema versus bibasilar pneumonia, right worse than left, suspected minimal right pleural effusion, Cardiomegaly. - Chest CTA: No evidence of PE, aortic dissection or aortic aneurysm, extensive right lower lobe pneumonia, and probably mildly prominent reactive lymphadenopathy the right axilla and subcarinal region. (2) Acute hypoxic respiratory failure: Code(s): J96.01 - Acute respiratory failure with hypoxia Status: Acute Assessment and Plan: Upon EMS arrival patient was found to be hypoxic with SpO2 88%, started on 2L NC. Baseline room air. - Oxygen supplementation: 4 L NC, baseline room air. Wean as tolerated. Keep SpO2 greater than 90% - Suspected cause: pneumonia - Chest XR: Bibasilar pulmonary edema versus bibasilar pneumonia, right worse than left, suspected minimal right pleural effusion, Cardiomegaly. - Chest CTA: No evidence of PE, aortic dissection or aortic aneurysm, extensive right lower lobe pneumonia, and probably mildly prominent reactive lymphadenopathy the right axilla and subcarinal region. - See plan below #3 pneumonia (3) Fall: Qualifiers: Encounter type: initial encounter Qualified Code(s): W19.XXXA - Un specified fall, initial encounter Code(s): W19.XXXA - Unspecified fall, initial encounter Status: Inactive Assessment and Plan: Patient states that she lost her balance resulting in a fall. She was unable to get up and was down for approximately 15 minutes. Denies dizziness/lightheadedness prior to the fall and did not hit her head or lose consciousness. - Head CT with no evidence of intracranial hemorrhage, mass lesion, or acute inf arct. - PT/OT when patient stable (4) Community acquired pneumonia: Code(s): J18.9 - Pneumonia, unspecified organism Status: Acute Assessment and Plan: - Chest XR: Bibasilar pulmonary edema versus bibasilar pneumonia, right worse than left, suspected minimal right pleural effusion, Cardiomegaly. - Chest CTA: No evidence of PE, aortic dissection or aortic aneurysm, extensive right lower lobe pneumonia, and probably mildly prominent reactive lym phadenopathy the right axilla and subcarinal region. - started on CAP tx: azithromycin ceftriaxone given in the ED on 03/27, broadened to cefepime given sepsis - MRSA negative - Viral PCR: negative for Flu/COVID/RSV - Mucinex ordered - Sputum culture ordered - oxygen supplementation: 4 L NC, baseline room air. Wean as tolerated. Keep SpO2 greater than 90% - Monitor vital signs, I&Os, neuro status and patient is a fall risk - Follow WBC, serum electrolytes, temperature curves and cultures (5) Atrial fibrillation: Code(s): I48.91 - Unspecified atrial fibrillation Status: Acute Assessment and Plan: New diagnosis of atrial fibrillation in January 2024. S/p SHAYY with cardioversion in January at [place] with Dr. Castillo. Per patient she was in sinus rhythm for approximately 1 week then converted back into afib. She spoke with Dr. Castillo on 03/14 and was told she will likely require another cardioversion soon. Patient states no medications were changed at that time. - Possible that some of patients tachycardia is secondary to sepsis, see plan for that above - Continue home medication: Metoprolol 25 mg BID and eliquis 5 mg BID - EKG: Atrial fibrillation with HR 107 - TSH ordered to rule out metabolic cause for tachyarrhythmia: WNL - Telemetry - Obtain medical records from [facility] - Cardiology consulted, appreciate recommendations Patient remains asymptomatic denying chest pain and palpitations. Patient continues to be in Afib RVR into the 140s maintaining, given metoprolol IV 5 mg x1 at 12:45. Despite IV lopressor she remains in Afib RVR now going into the 160s, given diltiazem IV 15 mg x1 at 13:45. Plan for transfer to IMU for diltiazem IV 5 ml/hr. Call made to Dr. Lynch who agreed with current treatment, however is rounding at another hospital. Call then made to Dr. Brown to inform her a plan, spoke with RN who took message as she is in a cath. (6) Hypertension: Code(s): I10 - Essential (primary) hypertension Status: Acute Assessment and Plan: Chronic, continue home medications - metoprolol 25 mg BID - losartan 100 mg - HCTZ 25 mg daily - blood pressures remain stable, continue to monitor (7) Diabetes: Code(s): E11.9 - Type 2 diabetes mellitus without complications Status: Acute Assessment and Plan: - hypoglycemia protocol - POC blood glucose ACHS - home medication - metformin 500 mg BID and mounjaro 2.5 mg weekly - correct regimen ordered - low dose TIDWM - A1C 7.2 (8) Sleep apnea: Code(s): G47.30 - Sleep apnea, unspecified Status: Inactive Assessment and Plan: Does not wean CPAP Quality VTE Prophylaxis VTE prophylaxis: pharmacologic ordered Due to a high probability of clinically significant, life threatening deterioration, the patient required my highest level of preparedness to intervene emergently and I personally spent this critical care time directly and personally managing the patient. I have personally spent 60 minutes of critical care time, in evaluation and management of this critically ill patient's condition of atrial fibrillation with rapid ventricular rate and sepsis. Hospitalist MIPS Advance Care Plan I have confirmed that the patient's Advanced Care Plan is present, code status is documented, or surrogate decision maker is listed in patient medical record.: Yes Medication Reconciliation I have utilized all available resources to obtain, update and review the patients current medications (includes all prescriptions, OTC, herbals, cannabis, and nutritional supplements).: Yes
[2024-03-27 09:37] LABS: Hemoglobin A1C 7.2 % (<5.7)
--- NOTE | 2024-03-27 10:39 | ADMGEN ---
This patient, Yulia Francisco, was admitted to 2 Medical Room 251-. Patient/family oriented to hospital policies and general routines including ID bracelet, bed and alarms, visiting hours, pain management, procedures, bathroom and other care routines, personal items, smoking policy, room service/diet, and visiting hours. Information on how to activate the Rapid Response Team has been discussed. Patient/Family are encouraged to report perceived risks to care and to ask questions if they do not understand what they are told or what they should do.
[2024-03-27 12:08] LABS: Glucose Point of Care 204 mg/dl (65-105)
[2024-03-27] MEDS: POTASSIUM CHLORIDE 20 MEQ ER TABLET 40 MEQ PO (13:05)
[2024-03-27] MEDS: APIXABAN 5 MG TABLET PO ×2 (13:05→20:36)
[2024-03-27] MEDS: METOPROLOL TARTRATE INJ 5 MG/5 ML VIAL IV PUSH (13:05)
[2024-03-27] MEDS: INSULIN ASPART (*BKC) 100 UNITS/ML SUB-Q (13:16)
[2024-03-27] MEDS: dilTIAZem HCl INJ 25 MG/5 ML VIAL 15 MG IV PUSH (14:24)
--- NOTE | 2024-03-27 14:37 | PC.NURSE ---
Attempted to call Jose [facility] dtr Britany to update on patient's condition. Message left with Britany to return call for update re: transfer to IMU.
[2024-03-27] MEDS: ACETAMINOPHEN 325 MG TABLET 650 MG PO ×2 (15:17→20:36)
[2024-03-27] MEDS: CEFEPIME 2 GM/NS 50 ML 2 GM/50 ML BAG IVPB ×2 (15:19→21:08)
[2024-03-27] MEDS: dilTIAZem 100 MG/100 ML 100 MG/100 ML BAG IV CONT (16:05)
[2024-03-27] MEDS: CYANOCOBALAMIN 1,000 MCG TABLET 1000 MCG PO (16:06)
[2024-03-27 16:42] LABS: Lactic Acid Reflex 1.2 mmol/L (0.7-2.0)
[2024-03-27] MEDS: guaiFENesin 12 HR 600 MG TABCR PO (20:36)
[2024-03-27 21:03] LABS: Glucose Point of Care 184 mg/dl (65-105)
[2024-03-27 22:30] LABS: Glucose Point of Care 175 mg/dl (65-105)
[2024-03-28] VITALS (57 sets, daily range): BP systolic 55–147; BP diastolic 40–99; PULSE 83–157; RESP 20–35; TEMP 36.8–40.3; O2SAT 88–100
[2024-03-28] MEDS: dilTIAZem 100 MG/100 ML 100 MG/100 ML BAG 15 MG IV CONT (00:34)
[2024-03-28] MEDS: LEVALBUTEROL NEB 1.25 MG/3 ML INHALATION (00:38)
[2024-03-28] MEDS: AMIODARONE 150 MG/D5W 100 ML 150 MG/100 ML BAG 600 MG IV CONT (02:38)
[2024-03-28] MEDS: AMIODARONE 360 MG/D5W 200 ML 360 MG/200 ML BAG 33.33 MG IV CONT ×2 (02:50→08:00)
[2024-03-28] MEDS: ACETAMINOPHEN 325 MG TABLET 650 MG PO (04:05)
[2024-03-28 04:23] LABS: Basophils Absolute Auto 0.1 K/mm3 (0.0-0.1); Basophils Percent Auto 0.7 % (0.2-1.2); Eosinophils Absolute Auto 0.2 K/mm3 (0-0.3); Eosinophils Percent Auto 1.5 % (0-4.4); Hematocrit 39.8 % (37.0-47.0); Hemoglobin 13.1 g/dL (12.0-15.0); Immature Granulocyte Absolute 0.06 K/mm3 (0.00-0.031); Immature Granulocyte Percent A 0.5 % (0-0.5); Lymphocytes Absolute Auto 0.14 K/mm3 (0.9-3.2); Lymphocytes Percent Auto 1.2 % (18.3-44.2); Mean Corpuscular HGB Conc 32.9 g/dl (32-36); Mean Corpuscular Hemoglobin 30.5 pg (26-34); Mean Corpuscular Volume 92.6 fl (80-100); Mean Platelet Volume 9.5 fl (7.4-10.4); Monocytes Absolute Auto 0.3 K/mm3 (0.1-0.6); Monocytes Percent Auto 2.2 % (2.6-8.5); Neutrophils Absolute Auto 10.8 K/mm3 (1.3-6.7); Neutrophils Percent Auto 93.9 % (45.5-73.1); Platelet Count Result 181 k/mm3 (150-375); Red Cell Distribution Width 15.6 % (11.5-14.5); White Blood Count 11.5 K/mm3 (4.5-10.0)
[2024-03-28 04:30] LABS: Alanine Aminotransferase 22 U/L (6-35); Albumin Level 3.1 g/dL (3.5-5.1); Alkaline Phosphatase 71 U/L (38-126); Anion Gap 7 mmol/L (4-12); Aspartate Amino Transferase 21 U/L (14-36); Bilirubin,Total 1.6 mg/dL (0.2-1.3); Blood Urea Nitrogen 14 mg/dL (7-17); Calcium 8.2 mg/dL (8.4-10.2); Carbon Dioxide 28 mmol/L (22-30); Chloride 97 mmol/L (98-107); Estimated CRCL calculation 96 ml/min; Estimated Glomerular Filt Rate > 60; Glucose 209 mg/dL (65-110); Potassium 3.3 mmol/L (3.4-5.0); Sodium 132 mmol/L (137-145)
[2024-03-28 04:46] LABS: Add Urine Microscopic? YES; Appearance Urine Turbid (Clear); Bilirubin Urine Negative (Negative); Blood Urine Trace (Negative); Color Urine Dark Yellow (Yellow); Glucose Urine UA 1+ mg/dL (Negative); Ketones Urine 3+ mg/dL (Negative); Leukocyte Esterase Ur Negative LEU/UL (Negative); Nitrate Urine Negative (Negative); Protein Urine 2+ mg/dL (Negative); Specific Grav Ur 1.042 (1.001-1.035)
[2024-03-28 04:48] LABS: Squamous Epithelial Cell Urine Few /hpf (Few)
[2024-03-28] MEDS: CEFEPIME 2 GM/NS 50 ML 2 GM/50 ML BAG IVPB ×3 (05:04→23:34)
[2024-03-28] MEDS: AZITHROMYCIN 500 MG/NS 250 ML 500 MG/250 ML BAG 250 MG IVPB (05:48)
[2024-03-28] MEDS: FUROSEMIDE INJ 100 MG/10 ML VIAL 60 MG IV PUSH (06:31)
--- NOTE | 2024-03-28 06:46 | P.CONCA_ITS ---
Assessment and Plan Assessment and plan (1) Atrial fibrillation with RVR: Code(s): I48.91 - Unspecified atrial fibrillation Status: Acute (2) Acute on chronic heart failure: Code(s): I50.9 - Heart failure, unspecified Status: Acute (3) Hypertension: Code(s): I10 - Essential (primary) hypertension Status: Acute (4) Sepsis: Code(s): A41.9 - Sepsis, unspecified organism Status: Acute (5) Community acquired pneumonia: Code(s): J18.9 - Pneumonia, unspecified organism Status: Acute (6) Acute hypoxic respiratory failure: Code(s): J96.01 - Acute respiratory failure with hypoxia Status: Acute (7) Atrial fibrillation: Code(s): I48.91 - Unspecified atrial fibrillation Status: Acute Plan Atrial fibrillation with RVR-poorly controlled heart rates of 120s to 150s at rest while on Cardizem drip; Cardizem started amiodarone started Shortness of breath-multifactorial including AFib with RVR, acute pneumonia, acute heart failure, obstructive sleep apnea not compliant with CPAP Hypoxic respiratory failure requiring 8 L of oxygen by nasal cannula most likely secondary to acute pneumonia and acute heart failure Dizziness, lightheadedness, palpitations-most likely secondary to AFib with RVR; rule out arrhythmia Acute on chronic heart failure-LVEF unknown as no echo in our system Pneumonia on antibiotics azithromycin and cefepime Sepsis secondary to pneumonia Hypertension-on losartan and hydrochlorothiazide at home Hyperlipidemia-on rosuvastatin and ezetimibe Obstructive sleep apnea not compliant with CPAP Diabetes mellitus Plan: AFib is not rate controlled with IV metoprolol, IV Cardizem, and Cardizem drip. Started on amiodarone drip. Administered amiodarone bolus and started on amiodarone drip. Continue amiodarone drip at 1 milligram/minute for 6 hours, then 0.5 milligram/minute for 18 hours. Then start p.o. amiodarone 400 mg b.i.d. for 5 days and then switch to amiodarone 200 mg p.o. daily She was cardioverted in January, with successful cardiac cardioversion to sinus rhythm but reverted back to atrial fibrillation within a week. Another attempt to cardioversion can be made but after loading with 5-7 g of amiodarone to allow higher chance of staying in sinus rhythm if cardioversion is successful while antiarrhythmic is on board Continue metoprolol 25 mg b.i.d.. Up titrate to 50 mg b.i.d. if systolic blood pressure remains more than 110 mm Hg. Titrate metoprolol dose to a heart rate less than 90 Continue apixaban for anticoagulation to reduce risk of stroke in AFib Monitor on telemetry Check TSH and free T4 Check and replace electrolytes as needed keeping potassium greater than 4 and magnesium greater than 2 Continue rosuvastatin and ezetimibe for hyperlipidemia Continue losartan and hydrochlorothiazide for blood pressure control Obtain outside hospital records from [place] with patient had cardiac workup recently TTE today Give IV Lasix 60 mg now followed by 40 mg IV b.i.d.. Check ins and outs daily. Monitor weights daily She is requiring 8 L of oxygen by nasal cannula and appears visibly short of breath. Please obtain ABG and consider non-rebreather or BiPAP as needed Counseled about being compliance with CPAP for obstructive sleep apnea History of Present Illness History of Present Illness Consult date/time: 03/28/24 06:46 Reason For Visit: Community-acquired pneumonia, AFib, hypoxia Narrative: 68-year-old female with recently diagnosed with atrial fibrillation in January, status post SHAYY cardioversion with successful conversion to sinus rhythm for approximately 1 week and then converted back into AFib, obstructive sleep apnea not using CPAP, diabetes mellitus, hyperlipidemia, hypertension, endometrial cancer presents with chief complaint of worsening shortness of breath, leg swelling and weight gain over the past few weeks. She denies any chest pain 8 and at rest or with activity. She feels lightheaded and dizziness occasionally. She has off and on palpitations. She reports productive cough for about 1 week without any fevers, chills, nausea, emesis, abdominal pain, diarrhea. She does not have any recent sick contacts. She reports an episode of ambulating and losing her balance resulting in ground level fall. No symptoms of dizziness or lightheadedness at the time of the fall. There was no loss of consciousness. For atrial fibrillation with RVR, patient was given IV metoprolol and IV Cardizem with no response. She continued to have RVR. She was then transferred to IMU and a Cardizem drip was started with little response on heart rates. She continued to have heart rates in the 120s to 140s range. At this time Cardizem was stopped and amiodarone was given as a bolus and a drip was started. Her heart rate is are in the 120s to 150s at rest while on amiodarone drip. Patient is extremely short of breath with RVR. Workup: WBC elevated to 11.5 Potassium: 3.3 Troponin x3 negative: 0.029, 0.024, 0.020 EKG: AFib with RVR Echocardiogram: Per patient she had a recent echo at [place] but none here at [facility] Chest x-ray: Consolidation in the right lung suggestive of pneumonia CT head: No acute intracranial pathology CT chest: No PE, aortic dissection, arch aneurysm. There is extensive right lower lobe pneumonia Review of Systems 2 Review of Systems: A complete review of systems was performed mentioned in [facility] Past Medical History Medical History (Updated 03/28/24 @ 07:15 by Hollie Brown MD) Atrial fibrillation History of endometrial cancer Sleep apnea does not use CPAP High cholesterol Diabetes Hypertension Surgical History Surgical History History of total hysterectomy (~2018) History of cholecystectomy (~1998) History of 1977, 1983, 1990 Family History Family History Mother Uterine cancer Daughter Thyroid cancer Sibling Spinal cord cancer Social History Social History (Updated 03/27/24 @ 13:08 by Safia Portillo PA-C) Social History: Patient lives at home with her . No pets in the home. Smoking status: Never smoker Alcohol intake: current Alcohol use details: occasional. Less than once a month. Substance use: never Substance use type: does not use Do You Feel Safe in your Home?: Yes Lack of Transportation: No Lack of Food: Never True Current Housing: I Have Housing Concerned About Future Housing: No Difficulty Paying Gas/Electric Bills: No Difficulty Paying for Meds: YES Currently Unemployed: No Education: Trade/Vocational Certificate Difficulty w/ Childcare or Family Care: No Living arrangements: with family Spiritual care concerns: No Meds Home Medications and Allergies Home Medications ?Medication ?Instructions ?Recorded ?Confirmed ?Type losartan 100 1 tablet PO DAILY 03/19/22 03/27/24 History mg-hydrochlorothiazide 25 mg tablet metformin 500 mg tablet 500 mg PO BID 03/19/22 03/27/24 History metoprolol tartrate 25 mg tablet 25 mg PO BID 03/19/22 03/27/24 History rosuvastatin 20 mg tablet 20 mg PO DAILY 01/01/23 03/27/24 History ezetimibe 10 mg tablet 10 mg PO DAILY 01/07/23 03/27/24 History cyanocobalamin (vitamin B-12) 2 tablet PO DAILY 01/06/24 03/27/24 History apixaban 5 mg tablet (Eliquis) 5 mg PO Q12H 03/27/24 03/27/24 History tirzepatide 2.5 mg/0.5 mL 2.5 mg subcut WEEKLY 03/27/24 03/27/24 History subcutaneous pen injector (Todd) Allergies Allergy/AdvReac Type Severity Reaction Status Date / Time No Known Allergies Allergy Verified 03/27/24 11:06 Vital Signs Vital Signs - 24 hr 03/27/24 07:00 03/27/24 07:01 03/27/24 08:15 Temperature 36.8 C Pulse Rate 108 H 104 H 122 H Respiratory Rate 20 18 27 H Blood Pressure 114/53 L Pulse Oximetry 96 94 93 Oxygen Delivery Oxygen Flow Rate 03/27/24 08:30 03/27/24 08:45 03/27/24 09:00 Temperature Pulse Rate 126 H 105 H 114 H Respiratory Rate 30 H 25 H Blood Pressure Pulse Oximetry 93 93 94 Oxygen Delivery Oxygen Flow Rate 03/27/24 09:15 03/27/24 09:30 03/27/24 09:45 Temperature Pulse Rate 0 L 123 H Respiratory Rate 16 Blood Pressure Pulse Oximetry 95 95 95 Oxygen Delivery Oxygen Flow Rate 03/27/24 10:43 03/27/24 12:00 03/27/24 12:48 Temperature 37.3 C Pulse Rate 121 H 129 H 136 H Respiratory Rate 20 24 H Blood Pressure 138/79 169/111 H Pulse Oximetry 94 89 L Oxygen Delivery Oxygen Flow Rate 03/27/24 13:05 03/27/24 13:17 03/27/24 14:00 Temperature 36.8 C 36.8 C Pulse Rate 156 H 116 H 134 H Respiratory Rate 20 22 H Blood Pressure 150/82 H Pulse Oximetry 94 93 Oxygen Delivery Oxygen Flow Rate 03/27/24 14:33 03/27/24 14:55 03/27/24 15:17 Temperature 39.5 C H 39.3 C H 39.3 C H Pulse Rate 133 H Respiratory Rate 22 H Blood Pressure Pulse Oximetry 91 Oxygen Delivery Oxygen Flow Rate 03/27/24 16:05 03/27/24 16:07 03/27/24 16:07 Temperature 38.3 C H Pulse Rate 147 H 135 H 130 H Respiratory Rate 20 Blood Pressure 137/84 Pulse Oximetry 96 Oxygen Delivery Oxygen Flow Rate 03/27/24 16:50 03/27/24 20:00 03/27/24 20:00 Temperature Pulse Rate 132 H 124 H Respiratory Rate Blood Pressure 137/84 Pulse Oximetry 92 Oxygen Delivery Nasal Cannula Oxygen Flow Rate 5 03/27/24 20:00 03/27/24 20:14 03/27/24 20:36 Temperature 38.1 C H 38.1 C H Pulse Rate 124 H 129 H Respiratory Rate 24 H Blood Pressure 126/74 126/74 Pulse Oximetry 92 Oxygen Delivery Oxygen Flow Rate 03/27/24 21:36 03/27/24 22:00 03/27/24 22:00 Temperature 36.8 C 36.8 C Pulse Rate 116 H 108 H Respiratory Rate Blood Pressure 120/60 Pulse Oximetry Oxygen Delivery Oxygen Flow Rate 03/27/24 22:00 03/28/24 00:00 03/28/24 00:00 Temperature Pulse Rate 108 H 124 H Respiratory Rate Blood Pressure 120/60 116/70 Pulse Oximetry 88 L Oxygen Delivery High Flow Nasal Cannula Oxygen Flow Rate 6 03/28/24 00:00 03/28/24 00:00 03/28/24 00:34 Temperature 36.8 C Pulse Rate 124 H 124 H 135 H Respiratory Rate 22 H Blood Pressure 116/70 128/90 Pulse Oximetry 88 L Oxygen Delivery Oxygen Flow Rate 03/28/24 00:34 03/28/24 00:39 03/28/24 00:48 Temperature Pulse Rate 135 H 115 H 123 H Respiratory Rate 26 H 26 H Blood Pressure 128/90 Pulse Oximetry Oxygen Delivery Oxygen Flow Rate 03/28/24 00:48 03/28/24 02:00 03/28/24 02:00 Temperature Pulse Rate 147 H 147 H Respiratory Rate Blood Pressure 128/66 128/66 Pulse Oximetry 96 Oxygen Delivery High Flow Nasal Cannula Oxygen Flow Rate 6 03/28/24 02:00 03/28/24 02:34 03/28/24 02:38 Temperature Pulse Rate 136 H 141 H 144 H Respiratory Rate Blood Pressure 128/70 128/70 Pulse Oximetry Oxygen Delivery Oxygen Flow Rate 03/28/24 02:49 03/28/24 02:50 03/28/24 04:00 Temperature Pulse Rate 122 H 122 H Respiratory Rate Blood Pressure 139/66 139/66 Pulse Oximetry 94 Oxygen Delivery High Flow Nasal Cannula Oxygen Flow Rate 8 03/28/24 04:00 03/28/24 04:00 03/28/24 04:00 Temperature 39.5 C H Pulse Rate 147 H 147 H 141 H Respiratory Rate 24 H Blood Pressure 134/82 134/82 Pulse Oximetry 94 Oxygen Delivery Oxygen Flow Rate 03/28/24 04:05 03/28/24 05:05 03/28/24 06:00 Temperature 39.5 C H 38.0 C H Pulse Rate 121 H Respiratory Rate Blood Pressure Pulse Oximetry Oxygen Delivery Oxygen Flow Rate 03/28/24 06:00 03/28/24 06:00 Temperature 38.4 C H Pulse Rate 123 H 123 H Respiratory Rate Blood Pressure 124/80 124/80 Pulse Oximetry Oxygen Delivery Oxygen Flow Rate Exam 2 Narrative: General: Alert oriented x3, she is very short of breath requiring 8 L of oxygen by nasal cannula Neck: Supple, JVD + Chest: Bilaterally clear to auscultation, no rales or rhonchi Cardiac: S1, S2 +, irregularly irregular, no murmurs or rubs Extremities: Bilateral lower extremity edema 1-2+, no skin rash Neurologic: Alert and oriented x3, no focal neurological deficits Results Labs and Meds 03/28/24 04:13 03/28/24 04:13 Lab results: Cardiac Enzymes 03/27/24 03/28/24 Range/Units 07:49 04:13 AST 21 (14-36) U/L Troponin I 0.020 (0.000-0.034) ng/mL CBC 03/28/24 Range/Units 04:13 WBC 11.5 H (4.5-10.0) K/mm3 RBC 4.30 (4.2-5.4) M/mm3 Hgb 13.1 (12.0-15.0) g/dL Hct 39.8 (37.0-47.0) % Plt Count 181 (150-375) k/mm3 Lymph # (Auto) 0.14 L (0.9-3.2) K/mm3 Pine # (Auto) 0.3 (0.1-0.6) K/mm3 Eos # (Auto) 0.2 (0-0.3) K/mm3 Baso # (Auto) 0.1 (0.0-0.1) K/mm3 Comprehensive Metabolic Panel 03/28/24 Range/Units 04:13 Sodium 132 L (137-145) mmol/L Potassium 3.3 L (3.4-5.0) mmol/L Chloride 97 L (98-107) mmol/L Carbon Dioxide 28 (22-30) mmol/L BUN 14 D (7-17) mg/dL Creatinine 0.73 (0.7-1.0) mg/dL Glucose 209 H (65-110) mg/dL Calcium 8.2 L (8.4-10.2) mg/dL AST 21 (14-36) U/L ALT 22 (6-35) U/L Alkaline Phosphatase 71 (38-126) U/L Total Protein 6.0 L (6.3-8.2) g/dL Albumin 3.1 L (3.5-5.1) g/dL Intake and Output 03/27/24 03/27/24 03/28/24 15:59 23:59 07:59 Intake Total 50 105.5 1042.8 Output Total 225 300 Balance 50 -119.5 742.8 Intake: IV 50 105.5 302.8 Amiodarone 150 mg/D5w 100 ml 100 150 mg In 100 ml @ 15 MG/MIN 600 mls/hr IV CONT .Q10M ONE Rx #:[id number] Amiodarone 360 mg/D5w 200 ml 105.6 360 mg In 200 ml @ 1 MG/MIN 33. 333 mls/hr IV CONT .Q6H ONE Rx# :[id number] dilTIAZem 100 MG/100 ML 100 mg 55.5 47.2 In 100 ml @ 15 MG/HR 15 mls/hr IV CONT .Q6H40M [facility] Rx#: [id number] Cefepime 2 gm/Ns 50 ml 2 gm In 50 50 50 50 ml @ 100 mls/hr IVPB Q8HR [facility] Rx#:[id number] Oral 0 740 Output: Urine 225 300 Other: # Incontinent Voids 2 1
--- NOTE | 2024-03-28 06:55 | P.PNIM_ITS ---
Progress Note: A&P Assessment and Plan (1) Sepsis: Code(s): A41.9 - Sepsis, unspecified organism Status: Acute Assessment and Plan: Meets SIRS criteria: WBC, tachycardia, temp - lactic acid: 1.2 - 1L sepsis bolus ordered - suspected source: pneumonia - blood cultures drawn on 02/24: ordered - antibiotics: azithromycin ceftriaxone given in the ED on 03/27, broadened to cefepime given sepsis - Chest XR: Bibasilar pulmonary edema versus bibasilar pneumonia, right worse than left, suspected minimal right pleural effusion, Cardiomegaly. - Chest CTA: No evidence of PE, aortic dissection or aortic aneurysm, extensive right lower lobe pneumonia, and probably mildly prominent reactive lymphadenopathy the right axilla and subcarinal region. 03/28: Patient continues to be febrile. WBC slightly improved. (2) Acute hypoxic respiratory failure: Code(s): J96.01 - Acute respiratory failure with hypoxia Status: Acute Assessment and Plan: Upon EMS arrival patient was found to be hypoxic with SpO2 88%, started on 2L NC. Baseline room air. - Oxygen supplementation: 8 L NC, baseline room air. Wean as tolerated. Keep SpO2 greater than 90% - Suspected cause: pneumonia, KAREN noncompliant with CPAP, and uncontrolled afib - Chest XR: Bibasilar pulmonary edema versus bibasilar pneumonia, right worse than left, suspected minimal right pleural effusion, Cardiomegaly. - Chest CTA: No evidence of PE, aortic dissection or aortic aneurysm, extensive right lower lobe pneumonia, and probably mildly prominent reactive lymphadenopathy the right axilla and subcarinal region. - SHAYY 02/02 with LVEF 65% and no noted diastolic dysfunction - See plan below #3 pneumonia (3) Fall: Qualifiers: Encounter type: initial encounter Qualified Code(s): W19.XXXA - Unspecified fall, initial encounter Code(s): W19.XXXA - Unspecified fall, initial encounter Status: Inactive Assessment and Plan: Patient states that she lost her balance resulting in a fall. She was unable to get up and was down for approximately 15 minutes. Denies dizziness/lightheadedness prior to the fall and did not hit her head or lose consciousness. - Head CT with no evidence of intracranial hemorrhage, mass lesion, or acute infarct. - PT/OT when patient stable (4) Community acquired pneumonia: Code(s): J18.9 - Pneumonia, unspecified organism Status: Acute Assessment and Plan: - Chest XR: Bibasilar pulmonary edema versus bibasilar pneumonia, right worse than left, suspected minimal right pleural effusion, Cardiomegaly. - Chest CTA: No evidence of PE, aortic dissection or aortic aneurysm, extensive right lower lobe pneumonia, and probably mildly prominent reactive lymphadenopathy the right axilla and subcarinal region. - started on CAP tx: azithromycin ceftriaxone given in the ED on 03/27, broadened to cefepime given sepsis - MRSA negative - Viral PCR: negative for Flu/COVID/RSV - Mucinex ordered - ordering legionella, mycoplasma and pneumococcal - Sputum culture ordered - oxygen supplementation: 8 L NC, baseline room air. Wean as tolerated. Keep SpO2 greater than 90% - Monitor vital signs, I&Os, neuro status and patient is a fall risk - Follow WBC, serum electrolytes, temperature curves and cultures (5) Atrial fibrillation: Code(s): I48.91 - Unspecified atrial fibrillation Status: Acute Assessment and Plan: New diagnosis of atrial fibrillation in January 2024. S/p SHAYY with cardioversion in January at [facility] with Dr. Castillo. Per patient she was in sinus rhythm for approximately 1 week then converted back into afib. She spoke with Dr. Castillo on 03/14 and was told she will likely require another cardioversion soon. Patient states no medications were changed at that time. Patient remains asymptomatic denying chest pain and palpitations. Patient continues to be in Afib RVR into the 140s maintaining, given metoprolol IV 5 mg x1 at 12:45. Despite IV lopressor she remains in Afib RVR now going into the 160s, given diltiazem IV 15 mg x1 at 13:45. Plan for transfer to IMU for diltiazem IV 10 ml/hr. - Possible that some of patients tachycardia is secondary to sepsis, see plan for that above - Continue home medication: Eliquis 5 mg BID and Metoprolol 25 mg BID - EKG: Atrial fibrillation with HR 107 - TSH ordered to rule out metabolic cause for tachyarrhythmia: WNL - Telemetry - Obtain medical records from [facility] - SHAYY 02/02 with LVEF 65% and no noted diastolic dysfunction - Cardiology consulted, appreciate recommendations Administered amiodarone bolus and started on amiodarone drip. Continue amiodarone drip at 1 milligram/minute for 6 hours, then 0.5 milligram/minute for 18 hours. Then start p.o. amiodarone 400 mg b.i.d. for 5 days and then switch to amiodarone 200 mg p.o. daily Continue metoprolol but increase to 50mg q8h. Can up titrate to 75 mg b.i.d. if systolic blood pressure remains more than 110 mm Hg. Titrate metoprolol dose to a heart rate less than 90 Another attempt to cardioversion can be made but after loading with 5-7 g of amiodarone to allow higher chance of staying in sinus rhythm if cardioversion is successful while antiarrhythmic is on board Continue apixaban for anticoagulation to reduce risk of stroke in AFib Check and replace electrolytes as needed keeping potassium greater than 4 and magnesium greater than 2 Continue rosuvastatin and ezetimibe Continue losartan and hydrochlorothiazide for blood pressure control (6) Hypertension: Code(s): I10 - Essential (primary) hypertension Status: Acute Assessment and Plan: Chronic, continue home medications - Continue metoprolol but increase to 50mg q8h. Can up titrate to 75 mg b.i.d. if systolic blood pressure remains more than 110 mm Hg. Titrate metoprolol dose to a heart rate less than 90 - losartan 100 mg - HCTZ 25 mg daily - blood pressures remain stable, continue to monitor (7) Diabetes: Code(s): E11.9 - Type 2 diabetes mellitus without complications Status: Acute Assessment and Plan: - hypoglycemia protocol - POC blood glucose ACHS - home medication - metformin 500 mg BID and mounjaro 2.5 mg weekly - correct regimen ordered - mod dose TIDWM - A1C 7.2 (8) Sleep apnea: Code(s): G47.30 - Sleep apnea, unspecified Status: Inactive Assessment and Plan: Does not wean CPAP - apnea link ordered Time Spent With Patient Time with patient: 25 - 35 minutes Subjective Date/time seen: 03/28/24 06:55 Interval history: 68 year old female with past medical history of hypertension, diabetes, recent diagnosis of atrial fibrillation, hyperlipidemia, and sleep apnea presents to the hospital for multiple complaints including weakness, exertional dyspnea, and palpitations. Patient had a new diagnosis of atrial fibrillation in January 2024. S/p SHAYY with cardioversion in January at [facility] with Dr. Castillo. Patient is pleasant lying in bed with family at bedside. She remains in AFib RVR at this time. She states that she feels about the same as yesterday with intermittent palpitations but denies any chest pain. She is requiring more oxygen at this point but continues to denies shortness of breath. She also denies any nausea vomiting and abdominal pain. Cardiology evaluated patient and she was started on an amiodarone drip with plan for a cardioversion tomorrow. Review of Systems Review of Systems: All systems reviewed & are unremarkable except as noted in HPI and below Exam Narrative: F HR 138 RR 22 SpO2 93 8LNC BP 131/72 General: female in no acute respiratory distress who is nontoxic appearing, lying semi recumbent in bed. HEENT: Normocephalic. Atraumatic. Extraocular movement intact. Sclera clear and anicteric. No facial asymmetry. Chest: Lungs are coarse to auscultation worse on the right than left and diminished throughout. No wheezes. CV: Heart was irregularly irregular rhythm and tachycardic. S1-S2. No murmurs, gallops, or rubs. Abd: Abdomen was soft. Nontender. Nondistended. Positive bowel sounds. No organomegaly or masses. Ext: No clubbing, cyanosis, or edema. 2+ DP pulses bilaterally. Neuro: Patient is alert. Speech is clear. Objective Data Vital Signs Vital Signs: Vital Signs - 24 hr 03/27/24 07:00 03/27/24 07:01 03/27/24 08:15 Temperature 98.3 F Pulse Rate 108 H 104 H 122 H Respiratory Rate 20 18 27 H Blood Pressure 114/53 L Pulse Oximetry 96 94 93 Oxygen Delivery Oxygen Flow Rate 03/27/24 08:30 03/27/24 08:45 03/27/24 09:00 Temperature Pulse Rate 126 H 105 H 114 H Respiratory Rate 30 H 25 H Blood Pressure Pulse Oximetry 93 93 94 Oxygen Delivery Oxygen Flow Rate 03/27/24 09:15 03/27/24 09:30 03/27/24 09:45 Temperature Pulse Rate 0 L 123 H Respiratory Rate 16 Blood Pressure Pulse Oximetry 95 95 95 Oxygen Delivery Oxygen Flow Rate 03/27/24 10:43 03/27/24 12:00 03/27/24 12:48 Temperature 99.1 F Pulse Rate 121 H 129 H 136 H Respiratory Rate 20 24 H Blood Pressure 138/79 169/111 H Pulse Oximetry 94 89 L Oxygen Delivery Oxygen Flow Rate 03/27/24 13:05 03/27/24 13:17 03/27/24 14:00 Temperature 98.3 F 98.2 F Pulse Rate 156 H 116 H 134 H Respiratory Rate 20 22 H Blood Pressure 150/82 H Pulse Oximetry 94 93 Oxygen Delivery Oxygen Flow Rate 03/27/24 14:33 03/27/24 14:55 03/27/24 15:17 Temperature 103.1 F H 102.7 F H 102.7 F H Pulse Rate 133 H Respiratory Rate 22 H Blood Pressure Pulse Oximetry 91 Oxygen Delivery Oxygen Flow Rate 03/27/24 16:05 03/27/24 16:07 03/27/24 16:07 Temperature 100.9 F H Pulse Rate 147 H 135 H 130 H Respiratory Rate 20 Blood Pressure 137/84 Pulse Oximetry 96 Oxygen Delivery Oxygen Flow Rate 03/27/24 16:50 03/27/24 20:00 03/27/24 20:00 Temperature Pulse Rate 132 H 124 H Respiratory Rate Blood Pressure 137/84 Pulse Oximetry 92 Oxygen Delivery Nasal Cannula Oxygen Flow Rate 5 03/27/24 20:00 03/27/24 20:14 03/27/24 20:36 Temperature 100.5 F H 100.5 F H Pulse Rate 124 H 129 H Respiratory Rate 24 H Blood Pressure 126/74 126/74 Pulse Oximetry 92 Oxygen Delivery Oxygen Flow Rate 03/27/24 21:36 03/27/24 22:00 03/27/24 22:00 Temperature 98.3 F 98.3 F Pulse Rate 116 H 108 H Respiratory Rate Blood Pressure 120/60 Pulse Oximetry Oxygen Delivery Oxygen Flow Rate 03/27/24 22:00 03/28/24 00:00 03/28/24 00:00 Temperature Pulse Rate 108 H 124 H Respiratory Rate Blood Pressure 120/60 116/70 Pulse Oximetry 88 L Oxygen Delivery High Flow Nasal Cannula Oxygen Flow Rate 6 03/28/24 00:00 03/28/24 00:00 03/28/24 00:34 Temperature 98.2 F Pulse Rate 124 H 124 H 135 H Respiratory Rate 22 H Blood Pressure 116/70 128/90 Pulse Oximetry 88 L Oxygen Delivery Oxygen Flow Rate 03/28/24 00:34 03/28/24 00:39 03/28/24 00:48 Temperature Pulse Rate 135 H 115 H 123 H Respiratory Rate 26 H 26 H Blood Pressure 128/90 Pulse Oximetry Oxygen Delivery Oxygen Flow Rate 03/28/24 00:48 03/28/24 02:00 03/28/24 02:00 Temperature Pulse Rate 147 H 147 H Respiratory Rate Blood Pressure 128/66 128/66 Pulse Oximetry 96 Oxygen Delivery High Flow Nasal Cannula Oxygen Flow Rate 6 03/28/24 02:00 03/28/24 02:34 03/28/24 02:38 Temperature Pulse Rate 136 H 141 H 144 H Respiratory Rate Blood Pressure 128/70 128/70 Pulse Oximetry Oxygen Delivery Oxygen Flow Rate 03/28/24 02:49 03/28/24 02:50 03/28/24 04:00 Temperature Pulse Rate 122 H 122 H Respiratory Rate Blood Pressure 139/66 139/66 Pulse Oximetry 94 Oxygen Delivery High Flow Nasal Cannula Oxygen Flow Rate 8 03/28/24 04:00 03/28/24 04:00 03/28/24 04:00 Temperature 103.1 F H Pulse Rate 147 H 147 H 141 H Respiratory Rate 24 H Blood Pressure 134/82 134/82 Pulse Oximetry 94 Oxygen Delivery Oxygen Flow Rate 03/28/24 04:05 03/28/24 05:05 03/28/24 06:00 Temperature 103.1 F H 100.4 F H Pulse Rate 121 H Respiratory Rate Blood Pressure Pulse Oximetry Oxygen Delivery Oxygen Flow Rate 03/28/24 06:00 03/28/24 06:00 Temperature 101.2 F H Pulse Rate 123 H 123 H Respiratory Rate Blood Pressure 124/80 124/80 Pulse Oximetry Oxygen Delivery Oxygen Flow Rate Intake/Output Intake/Output: Intake & Output 03/25/24 03/26/24 03/27/24 03/28/24 23:59 23:59 23:59 23:59 Intake Total 1505.5 1042.8 Output Total 450 300 Balance 1055.5 742.8 Meds/Results Medications: Active Medications Generic Name Dose Route Start Last Admin Trade Name Freq PRN Reason Stop Dose Admin Acetaminophen 650 mg 03/27/24 14:41 03/28/24 04:05 Acetaminophen 325 Mg Tablet PO 650 mg Q4H PRN Administration Mild Pain (1-3) or Fever Apixaban 5 mg 03/27/24 12:35 03/27/24 20:36 Apixaban 5 Mg Tablet PO 5 mg Q12HR LAVERNE Administration Cyanocobalamin 1,000 mcg 03/27/24 17:00 03/27/24 16:06 Cyanocobalamin 1,000 Mcg Tablet PO 1,000 mcg BID LAVERNE Administration Dextrose 12.5 gm 03/27/24 08:57 Dextrose 50% 25 Gm/50 Ml Syringe IV PUSH PRN PRN Hypoglycemia Protocol Glucagon 1 mg 03/27/24 08:57 Glucagon For Inj 1 Mg Vial IM PRN PRN Hypoglycemia Protocol Glucose 15 gm 03/27/24 08:57 Glucose Oral Gel 15 Gm Of Glucse In 37.5 Gm Tube PO PRN PRN Hypoglycemia Protocol Guaifenesin 600 mg 03/27/24 21:00 03/27/24 20:36 Guaifenesin 12 Hr 600 Mg Tabcr PO 600 mg Q12HR LAVERNE Administration Hydrochlorothiazide 25 mg 03/28/24 09:00 Hydrochlorothiazide 25 Mg Tablet PO QAM LAVERNE Azithromycin 500 mg in 250 mls @ 250 mls/hr 03/28/24 06:00 03/28/24 05:48 Zithromax IVPB 250 mls/hr Q24H LAVERNE Administration Dextrose 1,000 mls @ 100 mls/hr 03/27/24 08:57 Dextrose 5% 1,000 Ml IVPB PRN PRN Hypoglycemia Protocol Cefepime HCl 2 gm in 50 mls @ 100 mls/hr 03/27/24 14:45 03/28/24 05:34 Maxipime 2 Gm/Ns 50 Ml IVPB Infused Q8HR LAVERNE Infusion Amiodarone HCl/Dextrose 360 mg in 200 mls @ 33.333 mls/hr 03/28/24 02:20 03/28/24 06:00 Nexterone 360 Mg/D5w 200 Ml IV CONT 03/28/24 08:19 1 mg/min .Q6H ONE 33.33 mls/hr Infusion 1 MG/MIN Amiodarone HCl/Dextrose 360 mg in 200 mls @ 16.667 mls/hr 03/28/24 08:20 Nexterone 360 Mg/D5w 200 Ml IV CONT .Q12H LAVERNE 0.5 MG/MIN Insulin Aspart 2 - 5 units 03/27/24 12:00 03/27/24 17:09 Insulin Aspart (*Bkc) 100 Units/Ml SUB-Q Not Given [facility] Protocol Losartan Potassium 100 mg 03/28/24 09:00 Losartan Potassium 100 Mg Tablet PO DAILY [facility] Metoprolol Tartrate 25 mg 03/27/24 17:00 03/27/24 16:07 Metoprolol Tartrate 25 Mg Tablet PO 25 mg BID LAVERNE Administration Rosuvastatin Calcium 20 mg 03/28/24 09:00 Rosuvastatin 20 Mg Tablet PO DAILY [facility] Radiology Results: ITS Impressions Chest CTA 03/27/24 06:41 Impression: No evidence of pulmonary embolus, aortic dissection, or aortic aneurysm. Extensive right lower lobe pneumonia. Probable mildly prominent reactive lymphadenopathy the right axilla and subcarinal region. Head CT 03/27/24 06:45 Impression: No significant abnormality seen. Chest X-Ray 03/28/24 06:12 Impression: Worsening extensive right lung consolidation, compatible with multilobar pneumonia in the right lung. Labs Labs: Laboratory Results - last 24 hr 03/27/24 03/27/24 03/27/24 00:03 07:49 11:55 WBC RBC Hgb Hct MCV MCH MCHC RDW Plt Count MPV Immature Gran % (Auto) Neut % (Auto) Lymph % (Auto) [place] % (Auto) Eos % (Auto) Baso % (Auto) Lymph # (Auto) [place] # (Auto) Eos # (Auto) Baso # (Auto) Abs Immat Gran (auto) Absolute Neuts (auto) Absolute Nucleated RBC Nucleated RBC % Sodium Potassium Chloride Carbon Dioxide Anion Gap BUN Creatinine Estim Creat Clear Calc Estimated GFR Glucose POC Capillary Glucose 204 H Hemoglobin A1c 7.2 H Lactic Acid Calcium Total Bilirubin AST ALT Alkaline Phosphatase Troponin I 0.020 Total Protein Albumin TSH (Reflex) 1.040 Urine Color Urine Appearance Urine pH Ur Specific [place] Urine Protein Urine Glucose (UA) Urine Ketones Ur Blood (Man) Urine Nitrate Urine Bilirubin Urine Urobilinogen Ur Leukocyte Esterase Urine RBC Urine WBC Ur Squamous Epith Cells Urine Casts 03/27/24 03/27/24 03/27/24 16:22 17:07 20:21 WBC RBC Hgb Hct MCV MCH MCHC RDW Plt Count MPV Immature Gran % (Auto) Neut % (Auto) Lymph % (Auto) [place] % (Auto) Eos % (Auto) Baso % (Auto) Lymph # (Auto) [place] # (Auto) Eos # (Auto) Baso # (Auto) Abs Immat Gran (auto) Absolute Neuts (auto) Absolute Nucleated RBC Nucleated RBC % Sodium Potassium Chloride Carbon Dioxide Anion Gap BUN Creatinine Estim Creat Clear Calc Estimated GFR Glucose POC Capillary Glucose 175 H 184 H Hemoglobin A1c Lactic Acid 1.2 Calcium Total Bilirubin AST ALT Alkaline Phosphatase Troponin I Total Protein Albumin TSH (Reflex) Urine Color Urine Appearance Urine pH Ur Specific [place] Urine Protein Urine Glucose (UA) Urine Ketones Ur Blood (Man) Urine Nitrate Urine Bilirubin Urine Urobilinogen Ur Leukocyte Esterase Urine RBC Urine WBC Ur Squamous Epith Cells Urine Casts 03/28/24 03/28/24 04:08 04:13 WBC 11.5 H RBC 4.30 Hgb 13.1 Hct 39.8 MCV 92.6 MCH 30.5 MCHC 32.9 RDW 15.6 H Plt Count 181 MPV 9.5 Immature Gran % (Auto) 0.5 Neut % (Auto) 93.9 H Lymph % (Auto) 1.2 L [place] % (Auto) 2.2 L Eos % (Auto) 1.5 Baso % (Auto) 0.7 Lymph # (Auto) 0.14 L [place] # (Auto) 0.3 Eos # (Auto) 0.2 Baso # (Auto) 0.1 Abs Immat Gran (auto) 0.06 H Absolute Neuts (auto) 10.8 H Absolute Nucleated RBC 0.000 Nucleated RBC % 0.0 Sodium 132 L Potassium 3.3 L Chloride 97 L Carbon Dioxide 28 Anion Gap 7 BUN 14 D Creatinine 0.73 Estim Creat Clear Calc 96 Estimated GFR > 60 Glucose 209 H POC Capillary Glucose Hemoglobin A1c Lactic Acid Calcium 8.2 L Total Bilirubin 1.6 H AST 21 ALT 22 Alkaline Phosphatase 71 Troponin I Total Protein 6.0 L Albumin 3.1 L TSH (Reflex) Urine Color Dark yellow Urine Appearance Turbid H Urine pH 5.0 Ur Specific [place] 1.042 H Urine Protein 2+ H Urine Glucose (UA) 1+ H Urine Ketones 3+ H Ur Blood (Man) Trace Urine Nitrate Negative Urine Bilirubin Negative Urine Urobilinogen 1.0 Ur Leukocyte Esterase Negative Urine RBC 3-5 H Urine WBC 4-6 H Ur Squamous Epith Cells Few Urine Casts ---- Quality VTE Prophylaxis VTE prophylaxis: pharmacologic ordered
[2024-03-28 07:19] LABS: Glucose Point of Care 233 mg/dl (65-105)
[2024-03-28 07:43] LABS: Magnesium 1.8 mg/dL (1.6-2.3)
--- NOTE | 2024-03-28 09:06 | P.PNCA_ITS ---
Progress Note: A&P Assessment and Plan (1) Atrial fibrillation with RVR: Code(s): I48.91 - Unspecified atrial fibrillation Status: Acute (2) Acute on chronic heart failure: Code(s): I50.9 - Heart failure, unspecified Status: Acute (3) Hypertension: Code(s): I10 - Essential (primary) hypertension Status: Acute (4) Sepsis: Code(s): A41.9 - Sepsis, unspecified organism Status: Acute (5) Community acquired pneumonia: Code(s): J18.9 - Pneumonia, unspecified organism Status: Acute (6) Acute hypoxic respiratory failure: Code(s): J96.01 - Acute respiratory failure with hypoxia Status: Acute (7) Atrial fibrillation: Code(s): I48.91 - Unspecified atrial fibrillation Status: Acute Plan Atrial fibrillation with RVR-poorly controlled heart rates of 120s to 150s at rest while on Cardizem drip; Cardizem started amiodarone started Shortness of breath-multifactorial including AFib with RVR, acute pneumonia, acute heart failure, obstructive sleep apnea not compliant with CPAP Hypoxic respiratory failure requiring 8 L of oxygen by nasal cannula most likely secondary to acute pneumonia and acute heart failure Dizziness, lightheadedness, palpitations-most likely secondary to AFib with RVR; rule out arrhythmia Acute on chronic heart failure-LVEF unknown as no echo in our system Pneumonia on antibiotics azithromycin and cefepime Sepsis secondary to pneumonia Hypertension-on losartan and hydrochlorothiazide at home Hyperlipidemia-on rosuvastatin and ezetimibe Obstructive sleep apnea not compliant with CPAP Diabetes mellitus Plan: AFib remains poorly controlled on amiodarone drip. Will plan for DCCV tomorrow with anesthesia. Continue metoprolol but increase to 50mg q8h. Can up titrate to 75 mg b.i.d. if systolic blood pressure remains more than 110 mm Hg. Titrate metoprolol dose to a heart rate less than 90 Continue apixaban for anticoagulation to reduce risk of stroke in AFib Monitor on telemetry TSH normal Check and replace electrolytes as needed keeping potassium greater than 4 and magnesium greater than 2 Continue rosuvastatin and ezetimibe for hyperlipidemia Continue losartan and hydrochlorothiazide for blood pressure control Obtain outside hospital records from [place] with patient had cardiac workup recently TTE ordered Continue furosemide 40mg IV b.i.d Check ins and outs daily. Monitor weights daily She is requiring 8 L of oxygen by nasal cannula. Does not appear to be in distress. Support with non-rebreather or BiPAP per hospitalist service. Compliance with CPAP for obstructive sleep apnea Subjective Date/time seen: 03/28/24 09:06 Interval history: Cardiology follow up for atrial fibrillation 03/28/2024: She remains in atrial fibrillation with RVR. She reports feeling about the same as she did yesterday. Review of Systems Review of Systems: A complete review of systems was performed mentioned in HPI Exam Const: General: comfortable, no acute distress, alert and awake Nutritional Appearance: obese Orientation/consciousness: patient oriented x3 HENMT: Head: normal to inspection Eyes: General: appearance normal, both eyes and all related structures Pupils: Equal, round and reactive pupils present Neck: Neck: normal visual inspection and supple Carotids: normal carotid upstroke Resp: Effort & Inspection: labored and not tachypneic Auscultation: not clear to auscultation bilaterally and crackles Cardio: Rate: tachycardic Rhythm: abnormal rhythm irregularly irregular Heart sounds: S1 normal heart sound present, S2 normal heart sound present and no murmurs GI: Auscultation: normal bowel sounds Skin: General skin exam: normal color Neuro: General: patient oriented x3 Cranial nerves: Yes Equal, round and reactive pupils present Extrem: General: normal to inspection Other: trace edema Psych: Appearance: grossly normal Mental Status: mental status grossly normal Objective Data Vital Signs Vital Signs: Vital Signs - 24 hr 03/27/24 09:15 03/27/24 09:30 03/27/24 09:45 Temperature Pulse Rate 0 L 123 H Respiratory Rate 16 Blood Pressure Pulse Oximetry 95 95 95 Oxygen Delivery Oxygen Flow Rate 03/27/24 10:43 03/27/24 12:00 03/27/24 12:48 Temperature 37.3 C Pulse Rate 121 H 129 H 136 H Respiratory Rate 20 24 H Blood Pressure 138/79 169/111 H Pulse Oximetry 94 89 L Oxygen Delivery Oxygen Flow Rate 03/27/24 13:05 03/27/24 13:17 03/27/24 14:00 Temperature 36.8 C 36.8 C Pulse Rate 156 H 116 H 134 H Respiratory Rate 20 22 H Blood Pressure 150/82 H Pulse Oximetry 94 93 Oxygen Delivery Oxygen Flow Rate 03/27/24 14:33 03/27/24 14:55 03/27/24 15:17 Temperature 39.5 C H 39.3 C H 39.3 C H Pulse Rate 133 H Respiratory Rate 22 H Blood Pressure Pulse Oximetry 91 Oxygen Delivery Oxygen Flow Rate 03/27/24 16:05 03/27/24 16:07 03/27/24 16:07 Temperature 38.3 C H Pulse Rate 147 H 135 H 130 H Respiratory Rate 20 Blood Pressure 137/84 Pulse Oximetry 96 Oxygen Delivery Oxygen Flow Rate 03/27/24 16:50 03/27/24 20:00 03/27/24 20:00 Temperature Pulse Rate 132 H 124 H Respiratory Rate Blood Pressure 137/84 Pulse Oximetry 92 Oxygen Delivery Nasal Cannula Oxygen Flow Rate 5 03/27/24 20:00 03/27/24 20:14 03/27/24 20:36 Temperature 38.1 C H 38.1 C H Pulse Rate 124 H 129 H Respiratory Rate 24 H Blood Pressure 126/74 126/74 Pulse Oximetry 92 Oxygen Delivery Oxygen Flow Rate 03/27/24 21:36 03/27/24 22:00 03/27/24 22:00 Temperature 36.8 C 36.8 C Pulse Rate 116 H 108 H Respiratory Rate Blood Pressure 120/60 Pulse Oximetry Oxygen Delivery Oxygen Flow Rate 03/27/24 22:00 03/28/24 00:00 03/28/24 00:00 Temperature Pulse Rate 108 H 124 H Respiratory Rate Blood Pressure 120/60 116/70 Pulse Oximetry 88 L Oxygen Delivery High Flow Nasal Cannula Oxygen Flow Rate 6 03/28/24 00:00 03/28/24 00:00 03/28/24 00:34 Temperature 36.8 C Pulse Rate 124 H 124 H 135 H Respiratory Rate 22 H Blood Pressure 116/70 128/90 Pulse Oximetry 88 L Oxygen Delivery Oxygen Flow Rate 03/28/24 00:34 03/28/24 00:39 03/28/24 00:48 Temperature Pulse Rate 135 H 115 H 123 H Respiratory Rate 26 H 26 H Blood Pressure 128/90 Pulse Oximetry Oxygen Delivery Oxygen Flow Rate 03/28/24 00:48 03/28/24 02:00 03/28/24 02:00 Temperature Pulse Rate 147 H 147 H Respiratory Rate Blood Pressure 128/66 128/66 Pulse Oximetry 96 Oxygen Delivery High Flow Nasal Cannula Oxygen Flow Rate 6 03/28/24 02:00 03/28/24 02:34 03/28/24 02:38 Temperature Pulse Rate 136 H 141 H 144 H Respiratory Rate Blood Pressure 128/70 128/70 Pulse Oximetry Oxygen Delivery Oxygen Flow Rate 03/28/24 02:49 03/28/24 02:50 03/28/24 04:00 Temperature Pulse Rate 122 H 122 H Respiratory Rate Blood Pressure 139/66 139/66 Pulse Oximetry 94 Oxygen Delivery High Flow Nasal Cannula Oxygen Flow Rate 8 03/28/24 04:00 03/28/24 04:00 03/28/24 04:00 Temperature 39.5 C H Pulse Rate 147 H 147 H 141 H Respiratory Rate 24 H Blood Pressure 134/82 134/82 Pulse Oximetry 94 Oxygen Delivery Oxygen Flow Rate 03/28/24 04:05 03/28/24 05:05 03/28/24 06:00 Temperature 39.5 C H 38.0 C H Pulse Rate 121 H Respiratory Rate Blood Pressure Pulse Oximetry Oxygen Delivery Oxygen Flow Rate 03/28/24 06:00 03/28/24 06:00 03/28/24 07:51 Temperature 38.4 C H 36.8 C Pulse Rate 123 H 123 H 137 H Respiratory Rate 22 H Blood Pressure 124/80 124/80 142/85 H Pulse Oximetry 96 Oxygen Delivery Oxygen Flow Rate Intake/Output Intake/Output: Intake & Output 03/25/24 03/26/24 03/27/24 03/28/24 23:59 23:59 23:59 23:59 Intake Total 1505.5 1042.8 Output Total 450 300 Balance 1055.5 742.8 Meds/Results Medications: Active Medications Generic Name Dose Route Start Last Admin Trade Name Freq PRN Reason Stop Dose Admin Acetaminophen 650 mg 03/27/24 14:41 03/28/24 04:05 Acetaminophen 325 Mg Tablet PO 650 mg Q4H PRN Administration Mild Pain (1-3) or Fever Apixaban 5 mg 03/27/24 12:35 03/27/24 20:36 Apixaban 5 Mg Tablet PO 5 mg Q12HR LAVERNE Administration Cyanocobalamin 1,000 mcg 03/27/24 17:00 03/27/24 16:06 Cyanocobalamin 1,000 Mcg Tablet PO 1,000 mcg BID LAVERNE Administration Dextrose 12.5 gm 03/27/24 08:57 Dextrose 50% 25 Gm/50 Ml Syringe IV PUSH PRN PRN Hypoglycemia Protocol Glucagon 1 mg 03/27/24 08:57 Glucagon For Inj 1 Mg Vial IM PRN PRN Hypoglycemia Protocol Glucose 15 gm 03/27/24 08:57 Glucose Oral Gel 15 Gm Of Glucse In 37.5 Gm Tube PO PRN PRN Hypoglycemia Protocol Guaifenesin 600 mg 03/27/24 21:00 03/27/24 20:36 Guaifenesin 12 Hr 600 Mg Tabcr PO 600 mg Q12HR LAVERNE Administration Hydrochlorothiazide 25 mg 03/28/24 09:00 Hydrochlorothiazide 25 Mg Tablet PO QAM LAVERNE Azithromycin 500 mg in 250 mls @ 250 mls/hr 03/28/24 06:00 03/28/24 05:48 Zithromax IVPB 250 mls/hr Q24H [facility] Administration Dextrose 1,000 mls @ 100 mls/hr 03/27/24 08:57 Dextrose 5% 1,000 Ml IVPB PRN PRN Hypoglycemia Protocol Cefepime HCl 2 gm in 50 mls @ 100 mls/hr 03/27/24 14:45 03/28/24 05:34 Maxipime 2 Gm/Ns 50 Ml IVPB Infused Q8HR [facility] Infusion Amiodarone HCl/Dextrose 360 mg in 200 mls @ 16.667 mls/hr 03/28/24 08:20 Nexterone 360 Mg/D5w 200 Ml IV CONT .Q12H LAVERNE 0.5 MG/MIN Insulin Aspart 3 - 6 units 03/28/24 08:00 03/28/24 08:00 Insulin Aspart (*Bkc) 100 Units/Ml SUB-Q Not Given TIDWM [facility] Protocol Losartan Potassium 100 mg 03/28/24 09:00 Losartan Potassium 100 Mg Tablet PO DAILY [facility] Metoprolol Tartrate 25 mg 03/27/24 17:00 03/27/24 16:07 Metoprolol Tartrate 25 Mg Tablet PO 25 mg BID [facility] Administration Rosuvastatin Calcium 20 mg 03/28/24 09:00 Rosuvastatin 20 Mg Tablet PO DAILY [facility] Radiology Results: ITS Impressions Chest CTA 03/27/24 06:41 Impression: No evidence of pulmonary embolus, aortic dissection, or aortic aneurysm. Extensive right lower lobe pneumonia. Probable mildly prominent reactive lymphadenopathy the right axilla and subcarinal region. Head CT 03/27/24 06:45 Impression: No significant abnormality seen. Chest X-Ray 03/28/24 06:12 Impression: Worsening extensive right lung consolidation, compatible with multilobar pneumonia in the right lung. Labs Labs: Laboratory Results - last 24 hr 03/27/24 03/27/24 03/27/24 00:03 11:55 16:22 WBC RBC Hgb Hct MCV MCH MCHC RDW Plt Count MPV Immature Gran % (Auto) Neut % (Auto) Lymph % (Auto) [place] % (Auto) Eos % (Auto) Baso % (Auto) Lymph # (Auto) [place] # (Auto) Eos # (Auto) Baso # (Auto) Abs Immat Gran (auto) Absolute Neuts (auto) Absolute Nucleated RBC Nucleated RBC % Sodium Potassium Chloride Carbon Dioxide Anion Gap BUN Creatinine Estim Creat Clear Calc Estimated GFR Glucose POC Capillary Glucose 204 H Hemoglobin A1c 7.2 H Lactic Acid 1.2 Calcium Magnesium Total Bilirubin AST ALT Alkaline Phosphatase Total Protein Albumin TSH (Reflex) 1.040 Urine Color Urine Appearance Urine pH Ur Specific [place] Urine Protein Urine Glucose (UA) Urine Ketones Ur Blood (Man) Urine Nitrate Urine Bilirubin Urine Urobilinogen Ur Leukocyte Esterase Urine RBC Urine WBC Ur Squamous Epith Cells Urine Casts 03/27/24 03/27/24 03/28/24 17:07 20:21 04:08 WBC RBC Hgb Hct MCV MCH MCHC RDW Plt Count MPV Immature Gran % (Auto) Neut % (Auto) Lymph % (Auto) [place] % (Auto) Eos % (Auto) Baso % (Auto) Lymph # (Auto) [place] # (Auto) Eos # (Auto) Baso # (Auto) Abs Immat Gran (auto) Absolute Neuts (auto) Absolute Nucleated RBC Nucleated RBC % Sodium Potassium Chloride Carbon Dioxide Anion Gap BUN Creatinine Estim Creat Clear Calc Estimated GFR Glucose POC Capillary Glucose 175 H 184 H Hemoglobin A1c Lactic Acid Calcium Magnesium 1.8 Total Bilirubin AST ALT Alkaline Phosphatase Total Protein Albumin TSH (Reflex) Urine Color Dark yellow Urine Appearance Turbid H Urine pH 5.0 Ur Specific [place] 1.042 H Urine Protein 2+ H Urine Glucose (UA) 1+ H Urine Ketones 3+ H Ur Blood (Man) Trace Urine Nitrate Negative Urine Bilirubin Negative Urine Urobilinogen 1.0 Ur Leukocyte Esterase Negative Urine RBC 3-5 H Urine WBC 4-6 H Ur Squamous Epith Cells Few Urine Casts ---- 03/28/24 03/28/24 04:13 07:15 WBC 11.5 H RBC 4.30 Hgb 13.1 Hct 39.8 MCV 92.6 MCH 30.5 MCHC 32.9 RDW 15.6 H Plt Count 181 MPV 9.5 Immature Gran % (Auto) 0.5 Neut % (Auto) 93.9 H Lymph % (Auto) 1.2 L [place] % (Auto) 2.2 L Eos % (Auto) 1.5 Baso % (Auto) 0.7 Lymph # (Auto) 0.14 L [place] # (Auto) 0.3 Eos # (Auto) 0.2 Baso # (Auto) 0.1 Abs Immat Gran (auto) 0.06 H Absolute Neuts (auto) 10.8 H Absolute Nucleated RBC 0.000 Nucleated RBC % 0.0 Sodium 132 L Potassium 3.3 L Chloride 97 L Carbon Dioxide 28 Anion Gap 7 BUN 14 D Creatinine 0.73 Estim Creat Clear Calc 96 Estimated GFR > 60 Glucose 209 H POC Capillary Glucose 233 H Hemoglobin A1c Lactic Acid Calcium 8.2 L Magnesium Total Bilirubin 1.6 H AST 21 ALT 22 Alkaline Phosphatase 71 Total Protein 6.0 L Albumin 3.1 L TSH (Reflex) Urine Color Urine Appearance Urine pH Ur Specific [place] Urine Protein Urine Glucose (UA) Urine Ketones Ur Blood (Man) Urine Nitrate Urine Bilirubin Urine Urobilinogen Ur Leukocyte Esterase Urine RBC Urine WBC Ur Squamous Epith Cells Urine Casts Quality VTE Prophylaxis VTE prophylaxis: pharmacologic ordered
[2024-03-28] MEDS: POTASSIUM CHLORIDE 20 MEQ ER TABLET 40 MEQ PO (09:48)
[2024-03-28] MEDS: LOSARTAN POTASSIUM 100 MG TABLET PO (09:48)
[2024-03-28] MEDS: guaiFENesin 12 HR 600 MG TABCR PO (09:49)
[2024-03-28] MEDS: APIXABAN 5 MG TABLET PO ×2 (09:49→22:43)
[2024-03-28] MEDS: ROSUVASTATIN 20 MG TABLET PO (09:49)
[2024-03-28] MEDS: CYANOCOBALAMIN 1,000 MCG TABLET 1000 MCG PO ×2 (09:49→16:41)
[2024-03-28] MEDS: hydroCHLOROthiazide 25 MG TABLET PO (09:50)
[2024-03-28 11:46] LABS: Glucose Point of Care 241 mg/dl (65-105)
[2024-03-28] MEDS: METOPROLOL TARTRATE 50 MG TAB PO (12:13)
[2024-03-28] MEDS: INSULIN ASPART (*BKC) 100 UNITS/ML SUB-Q ×3 (12:14→23:34)
--- NOTE | 2024-03-28 14:37 | PM.EVENT ---
Event Note Event Note Event Note: Rapid response called. Reported to patients room at that time and per RN patient started to desat on telemetry and was found unresponsive to painful stimuli. Patient continued to have a pulse into the 120-140s but was having SPO2 into the 40s on oxygen supplementation of 8L. Noted to be cyanotic on exam with coarse lung sounds on auscultation and new onset wheezing. Respiratory started bagging the patient and truck leasing manager was contacted for intubation. She was immediately taken to the ICU at that time. Reported to the ICU waiting room and family was updated. All questions were answered at that time.
[2024-03-28] MEDS: MIDAZOLAM HCL (*CRX) 2 MG/2 ML VIAL 4 MG IV PUSH (14:41)
[2024-03-28] MEDS: ETOMIDATE 20 MG/10 ML AMPUL IV PUSH (14:41)
--- NOTE | 2024-03-28 15:00 | P.CONIN_ITS ---
Assessment and Plan Assessment and plan (1) Acute hypoxic respiratory failure: Code(s): J96.01 - Acute respiratory failure with hypoxia Status: Acute Assessment and Plan: Acute hypoxic respiratory failure secondary to pneumonia 03/27 CTA chest No evidence of pulmonary embolus, aortic dissection, or aortic aneurysm. Extensive right lower lobe pneumonia. Probable mildly prominent reactive lymphadenopathy the right axilla and subcarinal region. Patient now emergently intubated post intubation chest x-ray IMPRESSION: 1. Endotracheal tube and nasogastric tube in expected positions. 2. Extensive patchy airspace opacities throughout the right lung consistent with multifocal pneumonia Ventilator settings reviewed. Patient is sedated with propofol Recheck PCR for COVID flu and RSV ABG ordered Hydrocortisone for severe pneumonia (2) Sepsis: Code(s): A41.9 - Sepsis, unspecified organism Status: Acute Assessment and Plan: Sepsis secondary required pneumonia Blood cultures ordered and pending Check sputum culture Urine Legionella and pneumococcal antigen pain Continue empiric cefepime azithromycin. Add vancomycin Check procalcitonin level (3) Diabetes: Code(s): E11.9 - Type 2 diabetes mellitus without complications Status: Acute Assessment and Plan: Sliding scale insulin (4) Atrial fibrillation with RVR: Code(s): I48.91 - Unspecified atrial fibrillation Status: Acute Assessment and Plan: Continue amiodarone infusion ordered by Cardiology Patient is anticoagulated with Eliquis Check echo (5) Community acquired pneumonia: Code(s): J18.9 - Pneumonia, unspecified organism Status: Acute Assessment and Plan: See above (6) Hypertension: Code(s): I10 - Essential (primary) hypertension Status: Acute Assessment and Plan: Hold antihypertensive medication as patient is now intubated and sedated (7) Altered mental status: Code(s): R41.82 - Altered mental status, unspecified Status: Acute Assessment and Plan: Likely secondary to hypoxic. Patient had CT scan of the head recently done which was unremarkable but concerning patient's anticoagulation will repeat head CT Check ammonia TSH was normal (8) Electrolyte abnormality: Code(s): E87.8 - Other disorders of electrolyte and fluid balance, not elsewhere classified Status: Acute Assessment and Plan: Patient received potassium replacement. Repeat BMP ordered Plan DVT prophylaxis -Eliquis Stress ulcer prophylaxis -protonix Nutrition - npo Code Status - Full Code Total Critical Care Time - 60 minutes Due to a high probability of clinically significant, life threatening deterioration, the patient required my highest level of preparedness to intervene emergently and I personally spent this critical care time directly and personally managing the patient. This critical care time included obtaining a history; examining the patient; pulse oximetry; ordering and review of studies; arranging urgent treatment with development of a management plan; evaluation of patient's response to treatment; frequent reassessment; and discussions with other providers. It was exclusive of separately billable procedures and treating other patients and teaching time. Please see Assessment and Plan section and the rest of the note for further information on patient assessment and treatment Area Operations Director Consult Note Consult date: 03/28/24 Reason for consult: Acute respiratory failure, AFib HPI: Yulia Francisco is a 68 year old female with past medical history of hypertension, diabetes, recent diagnosis of atrial fibrillation, hyperlipidemia, coronary disease and sleep apnea was admitted on 03/27 with chief complaints of weakness, exertional dyspnea, and palpitations. Patient had a new diagnosis of atrial fibrillation in January 2024. S/p SHAYY with cardioversion in January at [place] with Dr. Castillo. Patient stated at the time of admission she was in sinus rhythm for approximately 1 week then converted back into afib. She spoke with Dr. Castillo on 03/14 and was told she will likely require another cardioversion soon. Patient states no medications were changed at that time. She denies s missing any doses of her metoprolol and eliquis. She complained call palpitations and worsening weakness and shortness of breath. She developed a productive cough about 1 week ago. She denied fever, body aches, nausea/vomiting or recent sick contacts. She was then ambulating and lost her balance resulting in a ground level fall. She denies feeling dizzy or lightheaded prior to the fall or loss of consciousness or hitting her head. She was unable to get up and was down for approximately 15 minutes. She denies any pain to the extremities or else where following the fall. Patient was found to be in AFib with RVR and was started on diltiazem drip and admitted to step-down unit. Cardiology was consult. Patient was also hypoxic. Chest x-ray showed bilateral pulmonary edema versus pneumonia with right worse than left. She was started on empiric antibiotics in the form azithromycin and cefepime. AFib was treated with beta-kelly and later started on amiodarone infusion. Today morning patient was on 8 L nasal cannula. She was placed on bedpan and when repositioned she became hypoxic desaturated and became altered. A rapid response was called. When I arrived at bedside patient was obtunded and was being bag ventilated with oral airway in place.. Patient was not very response and was hypoxic. Patient was transferred ICU immediately and then intubated Above-mentioned history is obtained from chart review and physician sign-out. Patient herself is now intubated and unable to provide any further history Review of Systems 2 Review of Systems: ROS unobtainable: Yes unobtainable due to endotracheal tube, unobtainable due to medical condition and unobtainable due to mental status [facility] Past Medical History Medical History Atrial fibrillation History of endometrial cancer Sleep apnea does not use CPAP High cholesterol Diabetes Hypertension Surgical History Surgical History History of total hysterectomy (~2018) History of cholecystectomy (~1998) History of 1977, 1983, 1990 Family History Family History Mother Uterine cancer Daughter Thyroid cancer Sibling Spinal cord cancer Social History Social History Social History: Patient lives at home with her . No pets in the home. Smoking status: Never smoker Alcohol intake: current Alcohol use details: occasional. Less than once a month. Substance use: never Substance use type: does not use Do You Feel Safe in your Home?: Yes Lack of Transportation: No Lack of Food: Never True Current Housing: I Have Housing Concerned About Future Housing: No Difficulty Paying Gas/Electric Bills: No Difficulty Paying for Meds: YES Currently Unemployed: No Education: Trade/Vocational Certificate Difficulty w/ Childcare or Family Care: No Living arrangements: with family Spiritual care concerns: No Meds Home Medications and Allergies Home Medications ?Medication ?Instructions ?Recorded ?Confirmed ?Type losartan 100 1 tablet PO DAILY 03/19/22 03/27/24 History mg-hydrochlorothiazide 25 mg tablet metformin 500 mg tablet 500 mg PO BID 03/19/22 03/27/24 History metoprolol tartrate 25 mg tablet 25 mg PO BID 03/19/22 03/27/24 History rosuvastatin 20 mg tablet 20 mg PO DAILY 01/01/23 03/27/24 History ezetimibe 10 mg tablet 10 mg PO DAILY 01/07/23 03/27/24 History cyanocobalamin (vitamin B-12) 2 tablet PO DAILY 01/06/24 03/27/24 History apixaban 5 mg tablet (Eliquis) 5 mg PO Q12H 03/27/24 03/27/24 History tirzepatide 2.5 mg/0.5 mL 2.5 mg subcut WEEKLY 03/27/24 03/27/24 History subcutaneous pen injector (Todd) Allergies Allergy/AdvReac Type Severity Reaction Status Date / Time No Known Allergies Allergy Verified 03/27/24 11:06 Vital Signs Vital Signs - 24 hr 03/27/24 15:17 03/27/24 16:05 03/27/24 16:07 Temperature 39.3 C H Pulse Rate 147 H 135 H Respiratory Rate Blood Pressure Pulse Oximetry Oxygen Delivery Oxygen Flow Rate 03/27/24 16:07 03/27/24 16:50 03/27/24 20:00 Temperature 38.3 C H Pulse Rate 130 H 132 H Respiratory Rate 20 Blood Pressure 137/84 137/84 Pulse Oximetry 96 92 Oxygen Delivery Nasal Cannula Oxygen Flow Rate 5 03/27/24 20:00 03/27/24 20:00 03/27/24 20:14 Temperature 38.1 C H Pulse Rate 124 H 124 H 129 H Respiratory Rate 24 H Blood Pressure 126/74 126/74 Pulse Oximetry 92 Oxygen Delivery Oxygen Flow Rate 03/27/24 20:36 03/27/24 21:36 03/27/24 22:00 Temperature 38.1 C H 36.8 C Pulse Rate 116 H Respiratory Rate Blood Pressure Pulse Oximetry Oxygen Delivery Oxygen Flow Rate 03/27/24 22:00 03/27/24 22:00 03/28/24 00:00 Temperature 36.8 C Pulse Rate 108 H 108 H Respiratory Rate Blood Pressure 120/60 120/60 Pulse Oximetry 88 L Oxygen Delivery High Flow Nasal Cannula Oxygen Flow Rate 6 03/28/24 00:00 03/28/24 00:00 03/28/24 00:00 Temperature 36.8 C Pulse Rate 124 H 124 H 124 H Respiratory Rate 22 H Blood Pressure 116/70 116/70 Pulse Oximetry 88 L Oxygen Delivery Oxygen Flow Rate 03/28/24 00:34 03/28/24 00:34 03/28/24 00:39 Temperature Pulse Rate 135 H 135 H 115 H Respiratory Rate 26 H Blood Pressure 128/90 128/90 Pulse Oximetry Oxygen Delivery Oxygen Flow Rate 03/28/24 00:48 03/28/24 00:48 03/28/24 02:00 Temperature Pulse Rate 123 H 147 H Respiratory Rate 26 H Blood Pressure 128/66 Pulse Oximetry 96 Oxygen Delivery High Flow Nasal Cannula Oxygen Flow Rate 6 03/28/24 02:00 03/28/24 02:00 03/28/24 02:34 Temperature Pulse Rate 147 H 136 H 141 H Respiratory Rate Blood Pressure 128/66 128/70 Pulse Oximetry Oxygen Delivery Oxygen Flow Rate 03/28/24 02:38 03/28/24 02:49 03/28/24 02:50 Temperature Pulse Rate 144 H 122 H 122 H Respiratory Rate Blood Pressure 128/70 139/66 139/66 Pulse Oximetry Oxygen Delivery Oxygen Flow Rate 03/28/24 04:00 03/28/24 04:00 03/28/24 04:00 Temperature 39.5 C H Pulse Rate 147 H 147 H Respiratory Rate 24 H Blood Pressure 134/82 134/82 Pulse Oximetry 94 94 Oxygen Delivery High Flow Nasal Cannula Oxygen Flow Rate 8 03/28/24 04:00 03/28/24 04:05 03/28/24 05:05 Temperature 39.5 C H 38.0 C H Pulse Rate 141 H Respiratory Rate Blood Pressure Pulse Oximetry Oxygen Delivery Oxygen Flow Rate 03/28/24 06:00 03/28/24 06:00 03/28/24 06:00 Temperature 38.4 C H Pulse Rate 121 H 123 H 123 H Respiratory Rate Blood Pressure 124/80 124/80 Pulse Oximetry Oxygen Delivery Oxygen Flow Rate 03/28/24 07:51 03/28/24 08:00 03/28/24 09:45 Temperature 36.8 C Pulse Rate 137 H 137 H 135 H Respiratory Rate 22 H Blood Pressure 142/85 H 142/85 H Pulse Oximetry 96 Oxygen Delivery Oxygen Flow Rate 03/28/24 10:00 03/28/24 12:04 03/28/24 12:13 Temperature 37.6 C H 38.1 C H Pulse Rate 137 H 138 H 155 H Respiratory Rate 24 H 22 H Blood Pressure 147/79 H 131/72 Pulse Oximetry 90 93 Oxygen Delivery Oxygen Flow Rate Exam 2 Narrative: General: Pt is now sedated, intubated and on mechanical ventilation peer Lungs/Chest: Trachea central Coarse BS B/L, by paced prior Cardiac: RRR. Normal S1 S2. No murmurs Circulation: Pedal pulses are intact and symmetrical. Abdomen: Decreased bowel sounds. Morbidly Obese. Soft. NT. ND. Extremities: No clubbing, cyanosis or bilateral pitting edema present : Can in place Neurologic: Unable to assess due to emergent situation. When I 1st evaluate the patient she was obtunded although moving extremities intermittently. She was intubated and is now sedated. PERRL Results Labs 03/28/24 04:13 03/28/24 04:13 Labs: Short CBC 03/28/24 Range/Units 04:13 WBC 11.5 H (4.5-10.0) K/mm3 Hgb 13.1 (12.0-15.0) g/dL Hct 39.8 (37.0-47.0) % Plt Count 181 (150-375) k/mm3 BMP 03/28/24 04:13 Sodium 132 L Potassium 3.3 L Chloride 97 L Carbon Dioxide 28 BUN 14 D Creatinine 0.73 Glucose 209 H Calcium 8.2 L Liver Function 03/28/24 Range/Units 04:13 Total Bilirubin 1.6 H (0.2-1.3) mg/dL AST 21 (14-36) U/L ALT 22 (6-35) U/L Alkaline Phosphatase 71 (38-126) U/L Albumin 3.1 L (3.5-5.1) g/dL Urine 03/28/24 Range/Units 04:08 Urine Color Dark yellow (Yellow) Urine Appearance Turbid H (Clear) Urine pH 5.0 (5.0-9.0) Ur Specific [place] 1.042 H (1.001-1.035) Urine Protein 2+ H (Negative) mg/dL Urine Glucose (UA) 1+ H (Negative) mg/dL Quality VTE Prophylaxis VTE prophylaxis: pharmacologic ordered Hospitalist MIPS Advance Care Plan I have confirmed that the patient's Advanced Care Plan is present, code status is documented, or surrogate decision maker is listed in patient medical record.: Yes Medication Reconciliation I have utilized all available resources to obtain, update and review the patients current medications (includes all prescriptions, OTC, herbals, cannabis, and nutritional supplements).: Yes
[2024-03-28] MEDS: PROPOFOL IV EMULSION 100 ML 17 MG IV CONT (15:11)
[2024-03-28] MEDS: ACETAMINOPHEN ELIXIR 325 MG/10.15 ML UDC 650 MG (15:25)
[2024-03-28 15:26] LABS: Alveolar/Arterial O2 Gradient 581.7 mmHg; Base Excess ABG 1.4 mEq/l (+/-2.0); Carboxyhemoglobin 0.7 % THb (0-2.0); Fractional Inspired Oxygen 100 %; HCO3 ABG 26.5 mEq/l (22.0-26.0); Methemoglobin ABG 0.1 %THb (0-1.5); Oxygen Content ABG 19.2 %vol (16.0-22.0); Oxygen Saturation ABG 96.7 % (95.0-100.0); Oxyhemoglobin 95.9 % THb (90.0-100.0); PCO2 ABG 43.5 mmHg (35.0-45.0); PO2 ABG 87.8 mmHg (80.0-100.0); PO2 FiO2 Ratio Arterial Blood 0.88 %; Reduced Hemoglobin 3.3 %THb (0-5.0); Total Hemoglobin 14.2 g/dL (12.0-18.0); pH ABG 7.403 (7.350-7.450)
[2024-03-28 15:27] LABS: Arterial Blood Gas PEEP 10 cmH2O; Arterial Blood Gas Tidal Volume 400 ml; Arterial Blood Gas Vent Mode CMV; Arterial Blood Gas Ventilator rate 20 /MIN; Device VENTILATOR; Modified Allen's Test Pass; Site Drawn LEFT RADIAL
[2024-03-28 15:28] LABS: Hematocrit 42.1 % (37.0-47.0); Hemoglobin 13.7 g/dL (12.0-15.0); Mean Corpuscular HGB Conc 32.5 g/dl (32-36); Mean Corpuscular Hemoglobin 30.4 pg (26-34); Mean Corpuscular Volume 93.6 fl (80-100); Mean Platelet Volume 10.1 fl (7.4-10.4); Platelet Count Result 226 k/mm3 (150-375); Red Cell Distribution Width 15.4 % (11.5-14.5); White Blood Count 14.8 K/mm3 (4.5-10.0)
--- NOTE | 2024-03-28 15:33 | WPDPROCEDUR ---
Procedures Intubation Intubation Date: 03/28/24 Intubation Time: 14:45 Consent: Procedure was done emergently as patient was respiratory failure. A pre-procedural Time-Out was completed immediately before starting the procedure and confirmed: Patient Identification, Site, Procedure, Patient Position and the Availability of Requisite Equipment: Yes Sedative: etomidate Mg given: 20 Laryngoscope: fiber optic video scope Assist device used: fiber optic device ET tube size: 7.5 Tube secured depth (cm): 23 Tube secured location: lips Tube placement confirmation: visualized tube passing through cords, equal breath sounds bilaterally, no breath sounds over epigastrium and confirmation by capnometry Patient tolerated procedure: well Intubation complications: none
[2024-03-28] MEDS: LIDOCAINE 1% PF INJ 5 ML VIAL INFILTRATE (15:40)
[2024-03-28 15:41] LABS: Ammonia 15 umol/L (9-30)
[2024-03-28 15:43] LABS: Triglycerides 66 mg/dL (<150)
[2024-03-28 15:50] LABS: NT Pro B Type Natriuretic Pept 5240 pg/mL (19.9-100)
[2024-03-28 15:56] LABS: Influenza A QL RT-PCR Negative (Negative); Influenza B QL RT-PCR Negative (Negative); RSV RNA, RT-PCR Positive (Negative); SARS-CoV-2 RNA PCR Negative (Negative)
[2024-03-28 16:00] LABS: Band Neutrophils Percent 21 % (0-6); Lymphocytes Absolute Manual 0.29 K/mm3 (1.1-4.5); Metamyelocytes Percent 1 %; Monocytes Absolute Manual 0.29 K/mm3 (0.1-0.90); Monocytes Percent Manual 2 % (3-9); Neutrophils Absolute Manual 14.06 K/mm3 (1.7-7.2); Neutrophils Percent Manual 74 % (46-73); Platelet Estimate Adequate (Adequate); Total Cells Counted 100
[2024-03-28 16:01] LABS: Anisocytosis 1+; Schistocytes None Seen
[2024-03-28 16:21] LABS: Glucose Point of Care 342 mg/dl (65-105)
[2024-03-28 16:32] LABS: MRSA (PCR) NOT DETECTED (NOT DETECTE)
[2024-03-28] MEDS: LACTATED RINGERS 1,000 ML 999 ML IV CONT ×2 (16:39→19:40)
[2024-03-28] MEDS: HYDROCORTISONE SODIUM SUCCINATE 100 MG/2 ML VIAL 50 MG IV PUSH ×2 (16:41→22:43)
[2024-03-28 17:01] LABS: Lactic Acid Reflex 2.1 mmol/L (0.7-2.0)
[2024-03-28] MEDS: FENTANYL 2,500MCG/NS250ML(*CRX 2,500 MCG/250 ML BAG IV CONT (17:05)
[2024-03-28] MEDS: NOREPINEPHRINE 8 MG/D5W 250 ML 8 MG/250 ML BAG 9.38 MG IV CONT (17:24)
[2024-03-28] MEDS: VANCOMYCIN 1,250 MG/NS 250 ML 1,250 MG/250 ML BAG 166.67 MG IVPB ×2 (17:26→18:57)
[2024-03-28 17:30] LABS: Glucose Point of Care 259 mg/dl (65-105)
[2024-03-28] MEDS: PROPOFOL IV EMULSION 100 ML 25.51 MG IV CONT (17:46)
--- NOTE | 2024-03-28 18:19 | PC.NURSE ---
This patient, Yulia Francisco, was transferred to ICU 11 on 03/28/24 at 1437. Patient was placed on a bedpan. Her O2 saturation decreased to the 40's-50's. This RN went into room. Pt was unresponsive, eyes were open. She was diaphoretic. Rapid Response was called. VS, blood sugar were completed. Saturation continued to decrease. Lpn Cma decided to intubate pt over in ICU. Pt will be monitored in ICU. Personal belongings sent with patient. Report given to CLEMENTINA Garcia. Appropriate documentation sent with patient.
[2024-03-28] MEDS: MIDAZOLAM 100MG/NS 100ML(*CRX) 100 MG/100 ML BAG IV CONT (19:42)
[2024-03-28 19:48] LABS: Reflex Lactic Acid Yes or No Add Lactic
[2024-03-28 21:14] LABS: Alanine Aminotransferase 83 U/L (6-35); Albumin Level 3.2 g/dL (3.5-5.1); Alkaline Phosphatase 77 U/L (38-126); Anion Gap 9 mmol/L (4-12); Aspartate Amino Transferase 135 U/L (14-36); Bilirubin,Total 1.4 mg/dL (0.2-1.3); Blood Urea Nitrogen 19 mg/dL (7-17); Calcium 7.9 mg/dL (8.4-10.2); Carbon Dioxide 25 mmol/L (22-30); Chloride 95 mmol/L (98-107); Estimated CRCL calculation 73 ml/min; Estimated Glomerular Filt Rate 56; Glucose 306 mg/dL (65-110); Magnesium 1.9 mg/dL (1.6-2.3); Potassium 3.3 mmol/L (3.4-5.0); Sodium 129 mmol/L (137-145)
[2024-03-28 21:38] LABS: Lactic Acid 1.2 mmol/L (0.7-2.0)
[2024-03-28 21:41] LABS: Procalcitonin 4.4 ng/mL
[2024-03-28] MEDS: MINERAL OIL/WHITE PETROLATUM OINTMENT 1 APPLIC EACH EYE (23:14)
[2024-03-28] MEDS: CENTRAL LINE FLUSH 10 ML IV PUSH (23:14)
[2024-03-28] MEDS: NOREPINEPHRINE 8 MG/D5W 250 ML 8 MG/250 ML BAG 41.25 MG IV CONT (23:33)
[2024-03-28] MEDS: AMIODARONE 360 MG/D5W 200 ML 360 MG/200 ML BAG 16.67 MG IV CONT (23:39)
[2024-03-28] MEDS: VASOPRESSIN INJ 100 UNITS in DEXTROSE 5% 95 ML IV CONT (23:39)
[2024-03-29] VITALS (44 sets, daily range): BP systolic 88–132; BP diastolic 58–88; PULSE 83–125; RESP 20–96; TEMP 37.2–40.3; O2SAT 23–99; BMI 47.0
--- NOTE | 2024-03-29 | ECHO_ITS ---
Patient Info Name: Yulia Francisco Age: 68 years : 1955 Gender: Female Ht: 70 in Wt: 312 lbs BSA: 2.71 m2 HR: 125 bpm BP: 111 / 72 mmHg Technical Quality: Fair Exam Date: 03/29/2024 10:34 AM Exam Location: Echo Lab Patient Status: Inpatient Admit Date: 03/27/2024 Staff Ordering Physician: Lena Mckeon Kiln Feeder: Grady Reeder RDCS Attending Provider: Safia Portillo PA-C Referring Physician: Linda MCHUGH; Exam Type: CA echo doppler color flow Study Info Indications - CHF Complete two-dimensional, color flow and Doppler transthoracic echocardiogram is performed. Summary 1. Very technically difficult study with limited views. 2. Left ventricular chamber dimension is normal. 3. Left ventricular systolic function is at lower limits of normal, estimated at 50-55%. 4. Left atrial chamber dimension is moderately enlarged. Left Ventricle Left ventricular chamber dimension is normal. Left ventricular systolic function is at lower limits of normal, estimated at 50-55%. Right Ventricle Right ventricular chamber dimension is not well visualized. Left Atria Left atrial chamber dimension is moderately enlarged. Right Atria Right atrial chamber dimension is not well visualized. Aortic Valve The aortic valve is not well visualized. There is no aortic valve regurgitation. Pulmonic Valve The pulmonic valve is not well visualized. Mitral Valve There is trace mitral valve regurgitation. Tricuspid Valve There is trace tricuspid valve regurgitation. Pericardium/Pleural There is no pericardial effusion. Inferior Vena Cava Inferior vena cava is not well visualized. Aorta The aortic root size at the sinus of Valsalva is not well visualized. Left Ventricular Outflow Tract Name Value Normal LVOT 2D LVOT Diameter 2.1 cm LVOT Doppler LVOT Peak Gradient 5 mmHg LVOT Mean Gradient 4 mmHg LVOT VTI 21 cm LVOT VTI/AV VTI Ratio 0.8 LVOT Stroke Volume 75 ml LVOT CO 6.2 l/min LVOT CI 2.3 l/min/m2 Pulmonic Valve Name Value Normal RVOT Doppler RVOT Peak Gradient 4 mmHg PV Doppler PV Peak Gradient 5 mmHg Mitral Valve Name Value Normal MV Doppler MV Peak Gradient 4 mmHg MV Mean Gradient 2 mmHg MV Decel [place] 566 cm/s2 MV PHT 51 ms MV Area (PHT) 4.3 cm2 4.0-5.0 MV Area (Cont Eq VTI) 3.8 cm2 MV Diastolic Function MV E Peak Velocity 99 cm/s MV A Peak Velocity 1 cm/s MV E/A 118.3 MV Decel Time 176 ms MV Annular TDI MV E/e' (Septal) 13.7 <=8.0 MV E/e' (Lateral) 7.4 <=8.0 MV E/e' (Average) 10.5 Aorta Name Value Normal Ascending Aorta Ao Root Diameter (MM) 3.6 cm Ao Root Diam Index (MM) 1.3 cm/m2 Aortic Valve Name Value Normal AV Doppler AV Peak Velocity 142 cm/s AV Peak Gradient 6 mmHg AV Mean Gradient 4 mmHg AV VTI 25 cm AV Area (Cont Eq VTI) 3.0 cm2 >=3.0 AV Area (Cont Eq Torres) 3.5 cm2 AV Regurgitation 2D LVOT Area 3.6 cm2 Ventricles Name Value Normal LV Dimensions 2D/MM IVS Diastolic Thickness (2D) 1.9 cm 0.6-1.0 LVID Diastole (2D) 4.3 cm 3.8-5.2 LVIW Diastolic Thickness (2D) 1.5 cm 0.6-0.9 LVID Systole (2D) 2.8 cm 2.2-3.5 LVOT Diameter 2.1 cm LV Mass (2D Cubed) 317.03 g 67.00-162.00 LV Mass Index (2D Cubed) 117 g/m2 43-95 Relative Wall Thickness (2D) 0.70 LV Fractional Shortening/Ejection Fraction 2D/MM LV Fractional Shortening (2D) 35 % 27-45 LV EF (2D Teicholz) 65 % 54-74 LV Diastolic Volume (4C MOD) 72 ml LV EF (4C MOD) 49 % LV Diastolic Volume (2C MOD) 73 ml LV EF (2C MOD) 54 % LV Diastolic Volume (BP MOD) 72 ml 46-106 LV Diastolic Volume Index (BP MOD) 27 ml/m2 29-61 LV Systolic Volume (BP MOD) 36 ml 14-42 LV Systolic Volume Index (BP MOD) 13 ml/m2 8-24 LV EF (BP MOD) 51 % 54-74 LV Diastolic Length (4C) 7.8 cm LV Systolic Length (4C) 7.0 cm LV Stroke Volume (4C MOD) 35 ml Atria Name Value Normal LA Dimensions LA Dimension (MM) 5.0 cm 2.7-3.8 LA Volume (4C A-L) 63 ml LA Volume (BP A-L) 73 ml RA Dimensions RA Area (4C) 22.2 cm2 <=18.0 Report Signatures
[2024-03-29 00:05] LABS: Glucose Point of Care 260 mg/dl (65-105)
[2024-03-29] MEDS: INSULIN ASPART (*BKC) 100 UNITS/ML SUB-Q ×4 (02:05→22:29)
[2024-03-29 02:06] LABS: Glucose Point of Care 229 mg/dl (65-105)
[2024-03-29] MEDS: ACETAMINOPHEN 325 MG TABLET 650 MG PO (05:11)
[2024-03-29] MEDS: HYDROCORTISONE SODIUM SUCCINATE 100 MG/2 ML VIAL 50 MG IV PUSH ×4 (05:12→22:30)
[2024-03-29] MEDS: CEFEPIME 2 GM/NS 50 ML 2 GM/50 ML BAG IVPB ×3 (05:12→22:30)
[2024-03-29 05:32] LABS: Alveolar/Arterial O2 Gradient 424.9 mmHg; Base Excess ABG 1.8 mEq/l (+/-2.0); Carboxyhemoglobin 0.3 % THb (0-2.0); Fractional Inspired Oxygen 80 %; HCO3 ABG 28.1 mEq/l (22.0-26.0); Methemoglobin ABG 0.1 %THb (0-1.5); Oxygen Content ABG 18.7 %vol (16.0-22.0); Oxygen Saturation ABG 96.7 % (95.0-100.0); Oxyhemoglobin 96.6 % THb (90.0-100.0); PCO2 ABG 50.9 mmHg (35.0-45.0); PO2 ABG 92.1 mmHg (80.0-100.0); PO2 FiO2 Ratio Arterial Blood 1.15 %; Total Hemoglobin 13.7 g/dL (12.0-18.0)
[2024-03-29 05:33] LABS: Device VENTILATOR; Modified Allen's Test Pass; Site Drawn RIGHT RADIAL
[2024-03-29 05:34] LABS: Arterial Blood Gas PEEP 12 cmH2O; Arterial Blood Gas Tidal Volume 400 ml; Arterial Blood Gas Vent Mode CMV; Arterial Blood Gas Ventilator rate 20 /MIN
[2024-03-29 05:59] LABS: Basophils Percent Auto 0.1 % (0.2-1.2); Eosinophils Absolute Auto 0.1 K/mm3 (0-0.3); Eosinophils Percent Auto 0.6 % (0-4.4); Hematocrit 39.9 % (37.0-47.0); Hemoglobin 12.9 g/dL (12.0-15.0); Immature Granulocyte Absolute 0.23 K/mm3 (0.00-0.031); Immature Granulocyte Percent A 1.5 % (0-0.5); Lymphocytes Absolute Auto 0.19 K/mm3 (0.9-3.2); Lymphocytes Percent Auto 1.2 % (18.3-44.2); Mean Corpuscular HGB Conc 32.3 g/dl (32-36); Mean Corpuscular Hemoglobin 30.4 pg (26-34); Mean Corpuscular Volume 93.9 fl (80-100); Mean Platelet Volume 10.2 fl (7.4-10.4); Monocytes Absolute Auto 0.4 K/mm3 (0.1-0.6); Monocytes Percent Auto 2.4 % (2.6-8.5); Neutrophils Absolute Auto 14.5 K/mm3 (1.3-6.7); Neutrophils Percent Auto 94.2 % (45.5-73.1); Platelet Count Result 224 k/mm3 (150-375); Red Blood Count 4.25 M/mm3 (4.2-5.4); Red Cell Distribution Width 15.8 % (11.5-14.5); White Blood Count 15.4 K/mm3 (4.5-10.0)
[2024-03-29] MEDS: VANCOMYCIN 1,500 MG/NS 500 ML 1,500 MG/500 ML BAG 250 MG IVPB ×2 (06:12→22:45)
[2024-03-29] MEDS: CENTRAL LINE FLUSH 10 ML IV PUSH ×3 (06:13→22:30)
[2024-03-29] MEDS: AZITHROMYCIN 500 MG/NS 250 ML 500 MG/250 ML BAG 250 MG IVPB (06:13)
[2024-03-29] MEDS: NOREPINEPHRINE 8 MG/D5W 250 ML 8 MG/250 ML BAG 37.5 MG IV CONT (06:41)
[2024-03-29 06:53] LABS: Alanine Aminotransferase 128 U/L (6-35); Albumin Level 2.9 g/dL (3.5-5.1); Alkaline Phosphatase 105 U/L (38-126); Anion Gap 7 mmol/L (4-12); Aspartate Amino Transferase 91 U/L (14-36); Blood Urea Nitrogen 27 mg/dL (7-17); Calcium 7.8 mg/dL (8.4-10.2); Carbon Dioxide 29 mmol/L (22-30); Chloride 95 mmol/L (98-107); Estimated CRCL calculation 63 ml/min; Estimated Glomerular Filt Rate 46; Glucose 175 mg/dL (65-110); Sodium 131 mmol/L (137-145)
[2024-03-29 07:14] LABS: Anisocytosis 1+; Burr Cells 1+; Platelet Estimate Adequate (Adequate); Schistocytes None Seen; Tear Drop Cells 1+
[2024-03-29 07:46] LABS: Glucose Point of Care 188 mg/dl (65-105)
[2024-03-29] MEDS: CALCIUM GLUC 2,000 MG/NS 100ML 2,000 MG/100 ML BAG 100 MG IVPB (08:26)
--- NOTE | 2024-03-29 08:45 | PC.NURSE ---
Spoke with Dr. Robertson, debbie to use left forearm for BP's even with midline in that arm.
[2024-03-29] MEDS: ROSUVASTATIN 20 MG TABLET PO (09:23)
[2024-03-29] MEDS: POTASSIUM BICARBONATE 25 MEQ TABEF 50 MEQ FEED TUBE ×2 (09:23→13:17)
[2024-03-29] MEDS: CYANOCOBALAMIN 1,000 MCG TABLET 1000 MCG PO ×2 (09:23→16:30)
[2024-03-29] MEDS: APIXABAN 5 MG TABLET PO ×2 (09:23→22:30)
[2024-03-29] MEDS: PANTOPRAZOLE SODIUM IV 40 MG VIAL IV PUSH (09:24)
[2024-03-29] MEDS: VASOPRESSIN INJ 100 UNITS in DEXTROSE 5% 95 ML IV CONT (09:26)
[2024-03-29] MEDS: INSULIN GLARGINE (*BKC) 100 UNITS/ML 20 UNITS SUB-Q (09:38)
[2024-03-29] MEDS: MINERAL OIL/WHITE PETROLATUM OINTMENT 1 APPLIC EACH EYE ×2 (09:39→22:30)
--- NOTE | 2024-03-29 09:43 | P.PNINT_ITS ---
Progress Note: A&P Assessment and Plan (1) Acute hypoxic respiratory failure: Code(s): J96.01 - Acute respiratory failure with hypoxia Status: Acute Assessment and Plan: Acute hypoxic respiratory failure secondary to pneumonia and possible component congestive heart failure 03/27 CTA chest No evidence of pulmonary embolus, aortic dissection, or aortic aneurysm. Extensive right lower lobe pneumonia. Probable mildly prominent reactive lymphadenopathy the right axilla and subcarinal region. Patient now emergently intubated 03/28 Chest x-ray and ABG reviewed Continue peep of 12 and try to wean down FiO2 to 70 per Hold further IV fluid Continue Versed and fentanyl for sedation Repeat PCR f was positive RSV -isolation Hydrocortisone for severe pneumonia (2) Sepsis: Code(s): A41.9 - Sepsis, unspecified organism Status: Acute Assessment and Plan: Sepsis secondary to community-acquired pneumonia Blood cultures ordered and pending Check sputum culture Urine Legionella and pneumococcal antigen 10 Continue empiric vancomycin cefepime azithromycin. procalcitonin level 4.4 (3) Diabetes: Code(s): E11.9 - Type 2 diabetes mellitus without complications Status: Acute Assessment and Plan: Sliding scale insulin Add Lantus Start tube feed (4) Atrial fibrillation with RVR: Code(s): I48.91 - Unspecified atrial fibrillation Status: Acute Assessment and Plan: Continue amiodarone infusion ordered by Cardiology Patient is anticoagulated with Eliquis echo pending (5) Community acquired pneumonia: Code(s): J18.9 - Pneumonia, unspecified organism Status: Acute Assessment and Plan: See above (6) Altered mental status: Code(s): R41.82 - Altered mental status, unspecified Status: Acute Assessment and Plan: Likely secondary to hypoxic. Patient had CT scan of the head recently done which was unremarkable Repeat head CT on 03/28 was again on remark And ammonia normal TSH was normal (7) Electrolyte abnormality: Code(s): E87.8 - Other disorders of electrolyte and fluid balance, not elsewhere classified Status: Acute Assessment and Plan: Potassium replacement ordered (8) Shock: Code(s): R57.9 - Shock, unspecified Status: Acute Assessment and Plan: Continue Levophed and add vasopressin Replace calcium Continue hydrocortisone Add 25% albumin Hold further crystalloids Plan DVT prophylaxis -Eliquis Stress ulcer prophylaxis -protonix Nutrition -start tube feed Code Status - Full Code Total Critical Care Time - 35 minutes Due to a high probability of clinically significant, life threatening deterioration, the patient required my highest level of preparedness to intervene emergently and I personally spent this critical care time directly and personally managing the patient. This critical care time included obtaining a history; examining the patient; pulse oximetry; ordering and review of studies; arranging urgent treatment with development of a management plan; evaluation of patient's response to treatment; frequent reassessment; and discussions with other providers. It was exclusive of separately billable procedures and treating other patients and teaching time. Please see Assessment and Plan section and the rest of the note for further information on patient assessment and treatment Subjective Date/time seen: 03/29/24 Overnight events reviewed. Afebrile Continues to be on mechanical ventilation 80% FiO2 and 12 of PEEP Patient was started on Levophed overnight. Propofol was switched to Versed due to hypotension Continues to be sedated with Versed and fentanyl Acceptable urine output npo Review of Systems Review of Systems: ROS unobtainable: Yes unobtainable due to endotracheal tube, unobtainable due to medical condition and unobtainable due to mental status Exam Narrative: General: Pt is now sedated, intubated and on mechanical ventilation peer Lungs/Chest: Trachea central Coarse BS B/L, Cardiac: RRR. Normal S1 S2. No murmurs Circulation: Pedal pulses are intact and symmetrical. Abdomen: Decreased bowel sounds. Morbidly Obese. Soft. NT. ND. Extremities: No clubbing, cyanosis or bilateral pitting edema present : Can in place Neurologic: Unable to assess due to emergent situation. PERRL Objective Data Vital Signs Vital Signs: Vital Signs - 24 hr 03/28/24 09:45 03/28/24 10:03/28/24 10:00 Temperature 37.6 C H Pulse Rate 135 H 137 H 137 H Respiratory Rate 24 H Blood Pressure 147/79 H 142/85 H Pulse Oximetry 90 Oxygen Delivery Oxygen Flow Rate Fraction of Inspired Oxygen 03/28/24 10:03/28/24 12:00 03/28/24 12:00 Temperature Pulse Rate 142 H 138 H Respiratory Rate Blood Pressure 131/72 Pulse Oximetry 93 Oxygen Delivery High Flow Nasal Cannula Oxygen Flow Rate 8 Fraction of Inspired Oxygen 03/28/24 12:00 03/28/24 12:04 03/28/24 12:13 Temperature 38.1 C H Pulse Rate 157 H 138 H 155 H Respiratory Rate 22 H Blood Pressure 131/72 Pulse Oximetry 93 Oxygen Delivery Oxygen Flow Rate Fraction of Inspired Oxygen 03/28/24 14:00 03/28/24 14:00 03/28/24 14:00 Temperature 40.1 C H Pulse Rate 122 H 122 H 112 H Respiratory Rate 32 H Blood Pressure 116/99 H 116/99 H Pulse Oximetry 95 Oxygen Delivery Oxygen Flow Rate Fraction of Inspired Oxygen 03/28/24 14:54 03/28/24 15:11 03/28/24 15:22 Temperature Pulse Rate 115 H 115 H 120 H Respiratory Rate 25 H 20 Blood Pressure Pulse Oximetry 93 Oxygen Delivery Mechanical Ventilation Oxygen Flow Rate Fraction of Inspired Oxygen 100 03/28/24 15:25 03/28/24 15:26 03/28/24 16:00 Temperature 40.2 C H 40.3 C H Pulse Rate 108 H 112 H Respiratory Rate 20 35 H Blood Pressure 83/65 L Pulse Oximetry 95 Oxygen Delivery Oxygen Flow Rate Fraction of Inspired Oxygen 03/28/24 16:00 03/28/24 16:00 03/28/24 16:00 Temperature Pulse Rate 120 H Respiratory Rate Blood Pressure 80/47 L Pulse Oximetry 98 Oxygen Delivery Mechanical Ventilation Oxygen Flow Rate Fraction of Inspired Oxygen 100 100 03/28/24 17:05 03/28/24 17:08 03/28/24 17:24 Temperature Pulse Rate 94 105 H 97 Respiratory Rate 27 H Blood Pressure 65/47 L Pulse Oximetry 95 Oxygen Delivery Mechanical Ventilation Oxygen Flow Rate Fraction of Inspired Oxygen 100 03/28/24 17:25 03/28/24 17:30 03/28/24 17:41 Temperature 39.2 C H Pulse Rate 90 83 Respiratory Rate Blood Pressure 73/54 L 55/40 L Pulse Oximetry Oxygen Delivery Oxygen Flow Rate Fraction of Inspired Oxygen 03/28/24 17:45 03/28/24 17:46 03/28/24 17:46 Temperature Pulse Rate 89 93 93 Respiratory Rate 27 H 27 H Blood Pressure 63/41 L Pulse Oximetry Oxygen Delivery Oxygen Flow Rate Fraction of Inspired Oxygen 03/28/24 17:51 03/28/24 17:56 03/28/24 18:00 Temperature 38.8 C H Pulse Rate 84 89 89 Respiratory Rate 24 H Blood Pressure 63/49 L 80/47 L 71/56 L Pulse Oximetry 98 Oxygen Delivery Oxygen Flow Rate Fraction of Inspired Oxygen 03/28/24 18:00 03/28/24 18:00 03/28/24 18:01 Temperature Pulse Rate 89 98 89 Respiratory Rate Blood Pressure 71/56 L 71/56 L Pulse Oximetry Oxygen Delivery Oxygen Flow Rate Fraction of Inspired Oxygen 03/28/24 18:06 03/28/24 18:41 03/28/24 18:44 Temperature Pulse Rate 87 92 90 Respiratory Rate 20 Blood Pressure 71/56 L 77/47 L Pulse Oximetry Oxygen Delivery Oxygen Flow Rate Fraction of Inspired Oxygen 03/28/24 18:48 03/28/24 18:49 03/28/24 18:59 Temperature Pulse Rate 94 90 96 Respiratory Rate 23 H Blood Pressure 77/47 L 78/56 L Pulse Oximetry Oxygen Delivery Oxygen Flow Rate Fraction of Inspired Oxygen 03/28/24 19:42 03/28/24 19:42 03/28/24 20:00 Temperature Pulse Rate 100 100 Respiratory Rate 24 H 24 H Blood Pressure Pulse Oximetry Oxygen Delivery Oxygen Flow Rate Fraction of Inspired Oxygen 100 03/28/24 20:00 03/28/24 20:00 03/28/24 20:00 Temperature 38.6 C H Pulse Rate 92 94 94 Respiratory Rate 30 H 30 H Blood Pressure 111/72 Pulse Oximetry 100 99 Oxygen Delivery Mechanical Ventilation Oxygen Flow Rate Fraction of Inspired Oxygen 100 03/28/24 20:00 03/28/24 20:10 03/28/24 20:21 Temperature Pulse Rate 90 101 H 92 Respiratory Rate 30 H Blood Pressure Pulse Oximetry 100 Oxygen Delivery Mechanical Ventilation Oxygen Flow Rate Fraction of Inspired Oxygen 100 03/28/24 20:40 03/28/24 20:40 03/28/24 20:40 Temperature Pulse Rate 100 100 100 Respiratory Rate 26 H 26 H Blood Pressure 126/88 Pulse Oximetry Oxygen Delivery Oxygen Flow Rate Fraction of Inspired Oxygen 03/28/24 21:10 03/28/24 21:10 03/28/24 21:10 Temperature Pulse Rate 113 H 113 H 113 H Respiratory Rate 30 H 30 H Blood Pressure 146/86 H Pulse Oximetry Oxygen Delivery Oxygen Flow Rate Fraction of Inspired Oxygen 03/28/24 22:00 03/28/24 22:00 03/28/24 22:00 Temperature 38.6 C H Pulse Rate 112 H 108 H 108 H Respiratory Rate 26 H Blood Pressure 94/67 L Pulse Oximetry 94 Oxygen Delivery Oxygen Flow Rate Fraction of Inspired Oxygen 03/28/24 22:06 03/28/24 22:06 03/28/24 22:06 Temperature Pulse Rate 103 H 103 H 103 H Respiratory Rate 24 H 24 H Blood Pressure 97/62 L Pulse Oximetry Oxygen Delivery Oxygen Flow Rate Fraction of Inspired Oxygen 03/28/24 23:17 03/28/24 23:32 03/28/24 23:33 Temperature Pulse Rate 99 102 H 102 H Respiratory Rate Blood Pressure 116/70 116/70 Pulse Oximetry 98 Oxygen Delivery Mechanical Ventilation Oxygen Flow Rate Fraction of Inspired Oxygen 90 03/28/24 23:39 03/28/24 23:39 03/29/24 00:00 Temperature Pulse Rate 107 H 112 H Respiratory Rate Blood Pressure 116/70 116/70 Pulse Oximetry Oxygen Delivery Oxygen Flow Rate Fraction of Inspired Oxygen 100 03/29/24 00:00 03/29/24 00:00 03/29/24 00:00 Temperature Pulse Rate 115 H 110 H 115 H Respiratory Rate 22 H 22 H Blood Pressure 107/58 L Pulse Oximetry Oxygen Delivery Oxygen Flow Rate Fraction of Inspired Oxygen 03/29/24 00:00 03/29/24 00:00 03/29/24 00:00 Temperature 38.7 C H Pulse Rate 100 115 H 115 H Respiratory Rate 21 H 96 H Blood Pressure 107/58 L Pulse Oximetry 97 23 L Oxygen Delivery Mechanical Ventilation Oxygen Flow Rate Fraction of Inspired Oxygen 90 03/29/24 02:00 03/29/24 02:00 03/29/24 02:00 Temperature Pulse Rate 119 H 115 H 115 H Respiratory Rate 22 H Blood Pressure 94/68 L Pulse Oximetry Oxygen Delivery Oxygen Flow Rate Fraction of Inspired Oxygen 03/29/24 02:00 03/29/24 02:00 03/29/24 02:00 Temperature Pulse Rate 110 H 118 H 111 H Respiratory Rate 22 H 23 H Blood Pressure 94/68 L Pulse Oximetry 95 Oxygen Delivery Oxygen Flow Rate Fraction of Inspired Oxygen 03/29/24 02:15 03/29/24 02:16 03/29/24 02:17 Temperature Pulse Rate 111 H 114 H 100 Respiratory Rate 21 H Blood Pressure 111/72 Pulse Oximetry 97 Oxygen Delivery Mechanical Ventilation Oxygen Flow Rate Fraction of Inspired Oxygen 90 03/29/24 04:00 03/29/24 04:00 03/29/24 04:00 Temperature 38.8 C H Pulse Rate 116 H 116 H 116 H Respiratory Rate 21 H Blood Pressure 95/59 L 97/65 L 97/65 L Pulse Oximetry 96 Oxygen Delivery Oxygen Flow Rate Fraction of Inspired Oxygen 03/29/24 04:00 03/29/24 04:00 03/29/24 04:00 Temperature Pulse Rate 116 H 116 H 110 H Respiratory Rate 21 H 21 H 21 H Blood Pressure Pulse Oximetry 90 Oxygen Delivery Mechanical Ventilation Oxygen Flow Rate Fraction of Inspired Oxygen 80 03/29/24 04:00 03/29/24 04:00 03/29/24 05:11 Temperature 38.9 C H Pulse Rate 110 H Respiratory Rate Blood Pressure Pulse Oximetry Oxygen Delivery Oxygen Flow Rate Fraction of Inspired Oxygen 80 03/29/24 05:27 03/29/24 06:00 03/29/24 06:00 Temperature 38.8 C H Pulse Rate 125 H 120 H 111 H Respiratory Rate 21 H Blood Pressure 97/71 L 97/71 L Pulse Oximetry 97 90 Oxygen Delivery Mechanical Ventilation Oxygen Flow Rate Fraction of Inspired Oxygen 80 03/29/24 06:00 03/29/24 06:00 03/29/24 06:00 Temperature Pulse Rate 120 H 120 H 114 H Respiratory Rate 21 H 21 H Blood Pressure Pulse Oximetry Oxygen Delivery Oxygen Flow Rate Fraction of Inspired Oxygen 03/29/24 06:03 03/29/24 06:41 03/29/24 06:41 Temperature Pulse Rate 116 H 110 H 110 H Respiratory Rate Blood Pressure 88/67 L 91/66 L 91/66 L Pulse Oximetry Oxygen Delivery Oxygen Flow Rate Fraction of Inspired Oxygen 03/29/24 08:44 03/29/24 09:26 03/29/24 09:26 Temperature Pulse Rate 106 H 101 H 101 H Respiratory Rate Blood Pressure 96/66 L 96/66 L Pulse Oximetry 99 Oxygen Delivery Mechanical Ventilation Oxygen Flow Rate Fraction of Inspired Oxygen 80 Intake/Output Intake/Output: Intake & Output 03/26/24 03/27/24 03/28/24 03/29/24 23:59 23:59 23:59 23:59 Intake Total 1505.5 3420.3 528.1 Output Total 450 1400 650 Balance 1055.5 2020.3 -121.9 Meds/Results Medications: Active Medications Generic Name Dose Route Start Last Admin Trade Name Freq PRN Reason Stop Dose Admin Acetaminophen 650 mg 03/27/24 14:41 03/29/24 05:11 Acetaminophen 325 Mg Tablet PO 650 mg Q4H PRN Administration Mild Pain (1-3) or Fever Apixaban 5 mg 03/27/24 12:35 03/29/24 09:23 Apixaban 5 Mg Tablet PO 5 mg Q12HR LAVERNE Administration Cyanocobalamin 1,000 mcg 03/27/24 17:00 03/29/24 09:23 Cyanocobalamin 1,000 Mcg Tablet PO 1,000 mcg BID LAVERNE Administration Dextrose 12.5 gm 03/27/24 08:57 Dextrose 50% 25 Gm/50 Ml Syringe IV PUSH PRN PRN Hypoglycemia Protocol Glucagon 1 mg 03/27/24 08:57 Glucagon For Inj 1 Mg Vial IM PRN PRN Hypoglycemia Protocol Glucose 15 gm 03/27/24 08:57 Glucose Oral Gel 15 Gm Of Glucse In 37.5 Gm Tube PO PRN PRN Hypoglycemia Protocol Hydrocortisone Sodium Succinate 50 mg 03/28/24 16:00 03/29/24 09:23 Hydrocortisone Sodium Succinate 100 Mg/2 Ml Vial IV PUSH 50 mg Q6H LAVERNE Administration Azithromycin 500 mg in 250 mls @ 250 mls/hr 03/28/24 06:00 03/29/24 06:13 Zithromax IVPB 250 mls/hr Q24H LAVERNE Administration Dextrose 1,000 mls @ 100 mls/hr 03/27/24 08:57 Dextrose 5% 1,000 Ml IVPB PRN PRN Hypoglycemia Protocol Cefepime HCl 2 gm in 50 mls @ 100 mls/hr 03/27/24 14:45 03/29/24 05:12 Maxipime 2 Gm/Ns 50 Ml IVPB 100 mls/hr Q8HR LAVERNE Administration Fentanyl Citrate 2,500 mcg in 250 mls @ 2.5 mls/hr 03/28/24 15:45 03/29/24 06:00 Fentanyl 2,500 Mcg/Ns 250 Ml IV CONT 75 mcg/hr .Q72H LAVERNE 7.5 mls/hr Titration Protocol 25 MCG/HR Norepinephrine Bitartrate 8 mg in 250 mls @ 37.5 mls/hr 03/28/24 16:30 03/29/24 06:41 Levophed 8 Mg/D5w 250 Ml IV CONT 20 mcg/min .[id number] LAVERNE 37.5 mls/hr Administration Protocol 20 MCG/MIN Vancomycin HCl 1,500 mg in 500 mls @ 250 mls/hr 03/29/24 06:00 03/29/24 06:12 Vancomycin 1,500 Mg/Ns 500 Ml IVPB 250 mls/hr Q12H [facility]ER[facility] Administration Vasopressin 100 units/ 100 mls @ 2.4 mls/hr 03/28/24 19:30 03/29/24 09:26 Dextrose IV CONT 0.04 units/min .[id number] LAVERNE 2.4 mls/hr Administration Protocol 0.04 UNITS/MIN Midazolam HCl 100 mg in 100 mls @ 5 mls/hr 03/28/24 19:30 03/29/24 06:00 Versed 100 Mg/Ns 100 Ml IV CONT 5 mg/hr .Q20H LAVERNE 5 mls/hr Titration Protocol 5 MG/HR Amiodarone HCl/Dextrose 360 mg in 200 mls @ 16.667 mls/hr 03/28/24 23:15 03/29/24 06:00 Nexterone 360 Mg/D5w 200 Ml IV CONT 0.5 mg/min .Q12H LAVERNE 16.67 mls/hr Infusion 0.5 MG/MIN Insulin Aspart 3 - 6 units 03/28/24 17:00 03/29/24 09:18 Insulin Aspart (*Bkc) 100 Units/Ml SUB-Q Not Given Q4HR [facility] Protocol Insulin Aspart 4 - 8 units 03/29/24 12:00 Insulin Aspart (*Bkc) 100 Units/Ml SUB-Q Q6HR [facility] Protocol Insulin Glargine 20 units 03/29/24 09:00 03/29/24 09:38 Insulin Glargine (*Bkc) 100 Units/Ml SUB-Q 20 units QAM LAVERNE Administration Multi-Ingred Cream/Lotion/Oil/Oint 1 applic 03/28/24 21:00 03/29/24 09:39 Mineral Oil/White Petrolatum Ointment EACH EYE 1 applic Q12HR LAVERNE Administration Pantoprazole Sodium 40 mg 03/29/24 09:00 03/29/24 09:24 Pantoprazole Sodium Iv 40 Mg Vial IV PUSH 40 mg DAILY LAVERNE Administration Perflutren Lipid Microsphere 0 ml 03/28/24 09:26 Perflutren Lipid Microspheres 1.5 Ml Vial Diluted To 10 Ml Total Volume IV PUSH 03/31/24 09:26 ONCE PRN adequate visualization Protocol Potassium Bicarbonate 50 meq 03/29/24 07:50 03/29/24 09:23 Potassium Bicarbonate 25 Meq Tabef FEED TUBE 03/29/24 11:51 50 meq Q4H LAVERNE Administration Rosuvastatin Calcium 20 mg 03/28/24 09:00 03/29/24 09:23 Rosuvastatin 20 Mg Tablet PO 20 mg DAILY LAVERNE Administration Sodium Chloride 10 ml 03/28/24 22:00 03/29/24 06:13 Central Line Flush IV PUSH 10 ml Q8HR LAV[place]NE Administration Sodium Chloride 10 ml 03/28/24 16:14 Central Line Flush IV PUSH PRN PRN with TPN bag changes Sodium Chloride 20 ml 03/28/24 16:14 Central Line Flush IV PUSH PRN PRN after blood draws Radiology Results: ITS Impressions Chest CTA 03/27/24 06:41 Impression: No evidence of pulmonary embolus, aortic dissection, or aortic aneurysm. Extensive right lower lobe pneumonia. Probable mildly prominent reactive lymphadenopathy the right axilla and subcarinal region. Head CT 03/28/24 22:59 IMPRESSION: 1. Normal brain. Chest X-Ray 03/29/24 06:13 Impression: Extensive bilateral airspace disease, right worse than left. Correlate for multifocal bilateral pneumonia versus possibly pulmonary edema. NG tube tip is at the GE junction. Further advancement by at least 10 cm recommended. Additional support tubes in satisfactory positions. Abdomen X-Ray 03/29/24 08:59 IMPRESSION: 1. Lines and tubes in expected positions. 2. Diffuse bilateral lung disease, right greater than left, consistent with multifocal pneumonia. Labs Labs: Laboratory Results - last 24 hr 03/28/24 03/28/24 03/28/24 11:31 14:33 15:06 WBC RBC Hgb Hct MCV MCH MCHC RDW Plt Count MPV Immature Gran % (Auto) Neut % (Auto) Lymph % (Auto) [place] % (Auto) Eos % (Auto) Baso % (Auto) Lymph # (Auto) [place] # (Auto) Eos # (Auto) Baso # (Auto) Abs Immat Gran (auto) Absolute Neuts (auto) Absolute Nucleated RBC Total Counted Neutrophils % (Manual) Band Neutrophils % Lymphocytes % (Manual) Monocytes % (Manual) Metamyelocytes % Nucleated RBC % Abs Neuts (Manual) Abs Lymphs (Manual) Abs Monocytes (Manual) Platelet Estimate Anisocytosis Tear Drop Cells Kathy Cells Schistocytes Puncture Site ABG pH ABG pCO2 ABG pO2 ABG PO2/FiO2 Ratio ABG HCO3 ABG O2 Saturation ABG O2 Content ABG Base Excess A-a Gradient Oxyhemoglobin Carboxyhemoglobin Methemoglobin Reduced Hemoglobin Total Hemoglobin O2 Delivery Device O2 Liters/Min Minute Volume Vent Rate Vent Mode FiO2 Tidal Volume PEEP Peak Inspir Pressure Pressure Support Sodium 129 L Potassium 3.3 L Chloride 95 L Carbon Dioxide 25 Anion Gap 9 BUN 19 H Creatinine 0.98 Estim Creat Clear Calc 73 Estimated GFR 56 L Glucose 306 H POC Capillary Glucose 241 H 342 H Lactic Acid Calcium 7.9 L Magnesium 1.9 Total Bilirubin 1.4 H AST 135 H ALT 83 H Alkaline Phosphatase 77 Ammonia NT-Pro-B Natriuret Pep Total Protein 6.0 L Albumin 3.2 L Triglycerides Procalcitonin Nasal MRSA (PCR) Not detected Influenza A (RT-PCR) Negative Influenza B (RT-PCR) Negative RSV (RT-PCR) Positive A SARS-CoV-2 RNA (RT-PCR) Negative 03/28/24 03/28/24 03/28/24 15:14 15:17 15:24 WBC 14.8 H RBC 4.50 Hgb 13.7 Hct 42.1 MCV 93.6 MCH 30.4 MCHC 32.5 RDW 15.4 H Plt Count 226 MPV 10.1 Immature Gran % (Auto) Not Reportable Neut % (Auto) Not Reportable Lymph % (Auto) Not Reportable [place] % (Auto) Not Reportable Eos % (Auto) Not Reportable Baso % (Auto) Not Reportable Lymph # (Auto) Not Reportable [place] # (Auto) Not Reportable Eos # (Auto) Not Reportable Baso # (Auto) Not Reportable Abs Immat Gran (auto) Not Reportable Absolute Neuts (auto) Not Reportable Absolute Nucleated RBC Not Reportable Total Counted 100 Neutrophils % (Manual) 74 H Band Neutrophils % 21 H Lymphocytes % (Manual) 2.0 L Monocytes % (Manual) 2 L Metamyelocytes % 1 Nucleated RBC % Not Reportable Abs Neuts (Manual) 14.06 H Abs Lymphs (Manual) 0.29 L Abs Monocytes (Manual) 0.29 Platelet Estimate Adequate Anisocytosis 1+ Tear Drop Cells Kathy Cells Schistocytes None seen Puncture Site Left radial ABG pH 7.403 ABG pCO2 43.5 ABG pO2 87.8 ABG PO2/FiO2 Ratio 0.88 ABG HCO3 26.5 H ABG O2 Saturation 96.7 ABG O2 Content 19.2 ABG Base Excess 1.4 A-a Gradient 581.7 Oxyhemoglobin 95.9 Carboxyhemoglobin 0.7 Methemoglobin 0.1 Reduced Hemoglobin 3.3 Total Hemoglobin 14.2 O2 Delivery Device Ventilator O2 Liters/Min Not Reportable Minute Volume Not Reportable Vent Rate 20 Vent Mode Cmv FiO2 100 Tidal Volume 400 PEEP 10 Peak Inspir Pressure Not Reportable Pressure Support Not Reportable Sodium Potassium Chloride Carbon Dioxide Anion Gap BUN Creatinine Estim Creat Clear Calc Estimated GFR Glucose POC Capillary Glucose Lactic Acid Calcium Magnesium Total Bilirubin AST ALT Alkaline Phosphatase Ammonia 15 NT-Pro-B Natriuret Pep 5240 H Total Protein Albumin Triglycerides 66 Procalcitonin 4.4 Nasal MRSA (PCR) Influenza A (RT-PCR) Influenza B (RT-PCR) RSV (RT-PCR) SARS-CoV-2 RNA (RT-PCR) 03/28/24 03/28/24 03/28/24 16:37 17:27 21:23 WBC RBC Hgb Hct MCV MCH MCHC RDW Plt Count MPV Immature Gran % (Auto) Neut % (Auto) Lymph % (Auto) [place] % (Auto) Eos % (Auto) Baso % (Auto) Lymph # (Auto) [place] # (Auto) Eos # (Auto) Baso # (Auto) Abs Immat Gran (auto) Absolute Neuts (auto) Absolute Nucleated RBC Total Counted Neutrophils % (Manual) Band Neutrophils % Lymphocytes % (Manual) Monocytes % (Manual) Metamyelocytes % Nucleated RBC % Abs Neuts (Manual) Abs Lymphs (Manual) Abs Monocytes (Manual) Platelet Estimate Anisocytosis Tear Drop Cells Kathy Cells Schistocytes Puncture Site ABG pH ABG pCO2 ABG pO2 ABG PO2/FiO2 Ratio ABG HCO3 ABG O2 Saturation ABG O2 Content ABG Base Excess A-a Gradient Oxyhemoglobin Carboxyhemoglobin Methemoglobin Reduced Hemoglobin Total Hemoglobin O2 Delivery Device O2 Liters/Min Minute Volume Vent Rate Vent Mode FiO2 Tidal Volume PEEP Peak Inspir Pressure Pressure Support Sodium Potassium Chloride Carbon Dioxide Anion Gap BUN Creatinine Estim Creat Clear Calc Estimated GFR Glucose POC Capillary Glucose 259 H Lactic Acid 2.1 H 1.2 Calcium Magnesium Total Bilirubin AST ALT Alkaline Phosphatase Ammonia NT-Pro-B Natriuret Pep Total Protein Albumin Triglycerides Procalcitonin Nasal MRSA (PCR) Influenza A (RT-PCR) Influenza B (RT-PCR) RSV (RT-PCR) SARS-CoV-2 RNA (RT-PCR) 03/28/24 03/29/24 03/29/24 23:05 02:04 05:20 WBC RBC Hgb Hct MCV MCH MCHC RDW Plt Count MPV Immature Gran % (Auto) Neut % (Auto) Lymph % (Auto) [place] % (Auto) Eos % (Auto) Baso % (Auto) Lymph # (Auto) [place] # (Auto) Eos # (Auto) Baso # (Auto) Abs Immat Gran (auto) Absolute Neuts (auto) Absolute Nucleated RBC Total Counted Neutrophils % (Manual) Band Neutrophils % Lymphocytes % (Manual) Monocytes % (Manual) Metamyelocytes % Nucleated RBC % Abs Neuts (Manual) Abs Lymphs (Manual) Abs Monocytes (Manual) Platelet Estimate Anisocytosis Tear Drop Cells [place] Cells Schistocytes Puncture Site Right radial ABG pH 7.360 ABG pCO2 50.9 H ABG pO2 92.1 ABG PO2/FiO2 Ratio 1.15 ABG HCO3 28.1 H ABG O2 Saturation 96.7 ABG O2 Content 18.7 ABG Base Excess 1.8 A-a Gradient 424.9 Oxyhemoglobin 96.6 Carboxyhemoglobin 0.3 Methemoglobin 0.1 Reduced Hemoglobin 3.0 Total Hemoglobin 13.7 O2 Delivery Device Ventilator O2 Liters/Min Not Reportable Minute Volume Not Reportable Vent Rate 20 Vent Mode Cmv FiO2 80 Tidal Volume 400 PEEP 12 Peak Inspir Pressure Not Reportable Pressure Support Not Reportable Sodium Potassium Chloride Carbon Dioxide Anion Gap BUN Creatinine Estim Creat Clear Calc Estimated GFR Glucose POC Capillary Glucose 260 H 229 H Lactic Acid Calcium Magnesium Total Bilirubin AST ALT Alkaline Phosphatase Ammonia NT-Pro-B Natriuret Pep Total Protein Albumin Triglycerides Procalcitonin Nasal MRSA (PCR) Influenza A (RT-PCR) Influenza B (RT-PCR) RSV (RT-PCR) SARS-CoV-2 RNA (RT-PCR) 03/29/24 03/29/24 05:30 07:43 WBC 15.4 H RBC 4.25 Hgb 12.9 Hct 39.9 MCV 93.9 MCH 30.4 MCHC 32.3 RDW 15.8 H Plt Count 224 MPV 10.2 Immature Gran % (Auto) 1.5 H Neut % (Auto) 94.2 H Lymph % (Auto) 1.2 L [place] % (Auto) 2.4 L Eos % (Auto) 0.6 Baso % (Auto) 0.1 L Lymph # (Auto) 0.19 L [place] # (Auto) 0.4 Eos # (Auto) 0.1 Baso # (Auto) 0.0 Abs Immat Gran (auto) 0.23 H Absolute Neuts (auto) 14.5 H Absolute Nucleated RBC 0.000 Total Counted Neutrophils % (Manual) Band Neutrophils % Lymphocytes % (Manual) Monocytes % (Manual) Metamyelocytes % Nucleated RBC % 0.0 Abs Neuts (Manual) Abs Lymphs (Manual) Abs Monocytes (Manual) Platelet Estimate Adequate Anisocytosis 1+ Tear Drop Cells 1+ Kathy Cells 1+ Schistocytes None seen Puncture Site ABG pH ABG pCO2 ABG pO2 ABG PO2/FiO2 Ratio ABG HCO3 ABG O2 Saturation ABG O2 Content ABG Base Excess A-a Gradient Oxyhemoglobin Carboxyhemoglobin Methemoglobin Reduced Hemoglobin Total Hemoglobin O2 Delivery Device O2 Liters/Min Minute Volume Vent Rate Vent Mode FiO2 Tidal Volume PEEP Peak Inspir Pressure Pressure Support Sodium 131 L Potassium 3.0 L Chloride 95 L Carbon Dioxide 29 Anion Gap 7 BUN 27 H Creatinine 1.17 H Estim Creat Clear Calc 63 Estimated GFR 46 L Glucose 175 H POC Capillary Glucose 188 H Lactic Acid Calcium 7.8 L Magnesium 2.0 Total Bilirubin 1.0 AST 91 H ALT 128 H Alkaline Phosphatase 105 Ammonia NT-Pro-B Natriuret Pep Total Protein 6.0 L Albumin 2.9 L Triglycerides Procalcitonin Nasal MRSA (PCR) Influenza A (RT-PCR) Influenza B (RT-PCR) RSV (RT-PCR) SARS-CoV-2 RNA (RT-PCR) Quality VTE Prophylaxis VTE prophylaxis: pharmacologic ordered
[2024-03-29] MEDS: AMIODARONE 360 MG/D5W 200 ML 360 MG/200 ML BAG 16.67 MG IV CONT ×2 (11:20→23:04)
[2024-03-29] MEDS: ALBUMIN HUMAN 25% 25 GM/100 ML 100 ML IVPB ×2 (11:21→18:14)
[2024-03-29 11:52] LABS: Glucose Point of Care 247 mg/dl (65-105)
--- NOTE | 2024-03-29 12:17 | P.PNCA_ITS ---
Progress Note: A&P Assessment and Plan (1) Atrial fibrillation with RVR: Code(s): I48.91 - Unspecified atrial fibrillation Status: Acute (2) Acute on chronic heart failure: Code(s): I50.9 - Heart failure, unspecified Status: Acute (3) Hypertension: Code(s): I10 - Essential (primary) hypertension Status: Acute (4) Sepsis: Code(s): A41.9 - Sepsis, unspecified organism Status: Acute (5) Community acquired pneumonia: Code(s): J18.9 - Pneumonia, unspecified organism Status: Acute (6) Acute hypoxic respiratory failure: Code(s): J96.01 - Acute respiratory failure with hypoxia Status: Acute (7) Atrial fibrillation: Code(s): I48.91 - Unspecified atrial fibrillation Status: Acute Plan Atrial fibrillation with RVR Shortness of breath - Multifactorial including AFib with RVR, acute pneumonia, acute heart failure, obstructive sleep apnea not compliant with CPAP Acute hypoxic respiratory failure requiring mechanical ventilation Shock, on pressors Acute on chronic heart failure - LVEF unknown as no echo in our system Pneumonia on antibiotics Sepsis secondary to pneumonia Hypertension - On losartan and hydrochlorothiazide at home Hyperlipidemia - On rosuvastatin and ezetimibe Obstructive sleep apnea not compliant with CPAP Diabetes mellitus Plan: Currently rate controlled AFIB. Continue Amiodarone drip. Given rate controlled AFIB, will not pursue cardioversion at this time. Hold Metoprolol due to pressor requirment for shock. Continue apixaban for anticoagulation to reduce risk of stroke in AFib Monitor on telemetry TSH normal Check and replace electrolytes as needed keeping potassium greater than 4 and magnesium greater than 2 Continue rosuvastatin and ezetimibe for hyperlipidemia Holding home antihypertensives due to pressor requirement for shock Obtain outside hospital records from [place] where patient had cardiac workup recently TTE ordered Continue intermittent IV Lasix as needed. Recommendations and plan discussed with ICU Physician. Subjective Date/time seen: 03/29/24 12:17 Interval history: Reason for visit: Atrial fibrillation with RVR HPI: 68-year-old female with recently diagnosed with atrial fibrillation in January, status post SHAYY cardioversion with successful conversion to sinus rhythm for approximately 1 week and then converted back into AFib, obstructive sleep apnea not using CPAP, diabetes mellitus, hyperlipidemia, hypertension, endometrial cancer presents with chief complaint of worsening shortness of breath, leg swelling and weight gain over the past few weeks. She denies any chest pain 8 and at rest or with activity. She feels lightheaded and dizziness occasionally. She has off and on palpitations. She reports productive cough for about 1 week without any fevers, chills, nausea, emesis, abdominal pain, d iarrhea. She does not have any recent sick contacts. She reports an episode of ambulating and losing her balance resulting in ground level fall. No symptoms of dizziness or lightheadedness at the time of the fall. There was no loss of consciousness. For atrial fibrillation with RVR, patient was given IV metoprolol and IV Cardizem with no response. She continued to have RVR. She was then ferrari sferred to IMU and a Cardizem drip was started with little response on heart rates. She continued to have heart rates in the 120s to 140s range. At this time Cardizem was stopped and amiodarone was given as a bolus and a drip was started. Her heart rate is are in the 120s to 150s at rest while on amiodarone drip. Patient is extremely short of breath with RVR. Date of service 03/28: She remains in atrial fibrillation with RVR. She reports feeling about the same as she did yesterday. Date of service 03/29: Yesterday, rapid response was called due to desaturations and unresponsive. Now intubated and in the ICU. On tele, she is in rate controlled AFIB, remains on Amiodarone. Review of Systems Review of Systems: ROS unobtainable: Yes unobtainable due to endotracheal tube Exam Const: Other: Critically ill female, morbidly obese. Intubated, multiple drips. HENMT: Other: OETT in place Resp: Other: On mechanical ventilation Cardio: Rhythm: abnormal rhythm irregularly irregular Neuro: Other: Sedated Psych: Other: Sedated Objective Data Vital Signs Vital Signs: Vital Signs - 24 hr 03/28/24 14:00 03/28/24 14:00 03/28/24 14:00 Temperature 40.1 C H Pulse Rate 122 H 122 H 112 H Respiratory Rate 32 H Blood Pressure 116/99 H 116/99 H Pulse Oximetry 95 Oxygen Delivery Fraction of Inspired Oxygen 03/28/24 14:54 03/28/24 15:11 03/28/24 15:22 Temperature Pulse Rate 115 H 115 H 120 H Respiratory Rate 25 H 20 Blood Pressure Pulse Oximetry 93 Oxygen Delivery Mechanical Ventilation Fraction of Inspired Oxygen 100 03/28/24 15:25 03/28/24 15:26 03/28/24 16:00 Temperature 40.2 C H 40.3 C H Pulse Rate 108 H 112 H Respiratory Rate 20 35 H Blood Pressure 83/65 L Pulse Oximetry 95 Oxygen Delivery Fraction of Inspired Oxygen 03/28/24 16:00 03/28/24 16:00 03/28/24 16:00 Temperature Pulse Rate 120 H Respiratory Rate Blood Pressure 80/47 L Pulse Oximetry 98 Oxygen Delivery Mechanical Ventilation Fraction of Inspired Oxygen 100 100 03/28/24 17:05 03/28/24 17:08 03/28/24 17:24 Temperature Pulse Rate 94 105 H 97 Respiratory Rate 27 H Blood Pressure 65/47 L Pulse Oximetry 95 Oxygen Delivery Mechanical Ventilation Fraction of Inspired Oxygen 100 03/28/24 17:25 03/28/24 17:30 03/28/24 17:41 Temperature 39.2 C H Pulse Rate 90 83 Respiratory Rate Blood Pressure 73/54 L 55/40 L Pulse Oximetry Oxygen Delivery Fraction of Inspired Oxygen 03/28/24 17:45 03/28/24 17:46 03/28/24 17:46 Temperature Pulse Rate 89 93 93 Respiratory Rate 27 H 27 H Blood Pressure 63/41 L Pulse Oximetry Oxygen Delivery Fraction of Inspired Oxygen 03/28/24 17:51 03/28/24 17:56 03/28/24 18:00 Temperature 38.8 C H Pulse Rate 84 89 89 Respiratory Rate 24 H Blood Pressure 63/49 L 80/47 L 71/56 L Pulse Oximetry 98 Oxygen Delivery Fraction of Inspired Oxygen 03/28/24 18:00 03/28/24 18:00 03/28/24 18:01 Temperature Pulse Rate 89 98 89 Respiratory Rate Blood Pressure 71/56 L 71/56 L Pulse Oximetry Oxygen Delivery Fraction of Inspired Oxygen 03/28/24 18:06 03/28/24 18:41 03/28/24 18:44 Temperature Pulse Rate 87 92 90 Respiratory Rate 20 Blood Pressure 71/56 L 77/47 L Pulse Oximetry Oxygen Delivery Fraction of Inspired Oxygen 03/28/24 18:48 03/28/24 18:49 03/28/24 18:59 Temperature Pulse Rate 94 90 96 Respiratory Rate 23 H Blood Pressure 77/47 L 78/56 L Pulse Oximetry Oxygen Delivery Fraction of Inspired Oxygen 03/28/24 19:42 03/28/24 19:42 03/28/24 20:00 Temperature Pulse Rate 100 100 Respiratory Rate 24 H 24 H Blood Pressure Pulse Oximetry Oxygen Delivery Fraction of Inspired Oxygen 100 03/28/24 20:00 03/28/24 20:00 03/28/24 20:00 Temperature 38.6 C H Pulse Rate 92 94 94 Respiratory Rate 30 H 30 H Blood Pressure 111/72 Pulse Oximetry 100 99 Oxygen Delivery Mechanical Ventilation Fraction of Inspired Oxygen 100 03/28/24 20:00 03/28/24 20:10 03/28/24 20:21 Temperature Pulse Rate 90 101 H 92 Respiratory Rate 30 H Blood Pressure Pulse Oximetry 100 Oxygen Delivery Mechanical Ventilation Fraction of Inspired Oxygen 100 03/28/24 20:40 03/28/24 20:40 03/28/24 20:40 Temperature Pulse Rate 100 100 100 Respiratory Rate 26 H 26 H Blood Pressure 126/88 Pulse Oximetry Oxygen Delivery Fraction of Inspired Oxygen 03/28/24 21:10 03/28/24 21:10 03/28/24 21:10 Temperature Pulse Rate 113 H 113 H 113 H Respiratory Rate 30 H 30 H Blood Pressure 146/86 H Pulse Oximetry Oxygen Delivery Fraction of Inspired Oxygen 03/28/24 22:00 03/28/24 22:00 03/28/24 22:00 Temperature 38.6 C H Pulse Rate 112 H 108 H 108 H Respiratory Rate 26 H Blood Pressure 94/67 L Pulse Oximetry 94 Oxygen Delivery Fraction of Inspired Oxygen 03/28/24 22:06 03/28/24 22:06 03/28/24 22:06 Temperature Pulse Rate 103 H 103 H 103 H Respiratory Rate 24 H 24 H Blood Pressure 97/62 L Pulse Oximetry Oxygen Delivery Fraction of Inspired Oxygen 03/28/24 23:17 03/28/24 23:32 03/28/24 23:33 Temperature Pulse Rate 99 102 H 102 H Respiratory Rate Blood Pressure 116/70 116/70 Pulse Oximetry 98 Oxygen Delivery Mechanical Ventilation Fraction of Inspired Oxygen 90 03/28/24 23:39 03/28/24 23:39 03/29/24 00:00 Temperature Pulse Rate 107 H 112 H Respiratory Rate Blood Pressure 116/70 116/70 Pulse Oximetry Oxygen Delivery Fraction of Inspired Oxygen 100 03/29/24 00:00 03/29/24 00:00 03/29/24 00:00 Temperature Pulse Rate 115 H 110 H 115 H Respiratory Rate 22 H 22 H Blood Pressure 107/58 L Pulse Oximetry Oxygen Delivery Fraction of Inspired Oxygen 03/29/24 00:00 03/29/24 00:00 03/29/24 00:00 Temperature 38.7 C H Pulse Rate 100 115 H 115 H Respiratory Rate 21 H 96 H Blood Pressure 107/58 L Pulse Oximetry 97 23 L Oxygen Delivery Mechanical Ventilation Fraction of Inspired Oxygen 90 03/29/24 02:00 03/29/24 02:00 03/29/24 02:00 Temperature Pulse Rate 119 H 115 H 115 H Respiratory Rate 22 H Blood Pressure 94/68 L Pulse Oximetry Oxygen Delivery Fraction of Inspired Oxygen 03/29/24 02:00 03/29/24 02:00 03/29/24 02:00 Temperature Pulse Rate 110 H 118 H 111 H Respiratory Rate 22 H 23 H Blood Pressure 94/68 L Pulse Oximetry 95 Oxygen Delivery Fraction of Inspired Oxygen 03/29/24 02:15 03/29/24 02:16 03/29/24 02:17 Temperature Pulse Rate 111 H 114 H 100 Respiratory Rate 21 H Blood Pressure 111/72 Pulse Oximetry 97 Oxygen Delivery Mechanical Ventilation Fraction of Inspired Oxygen 90 03/29/24 04:00 03/29/24 04:00 03/29/24 04:00 Temperature 38.8 C H Pulse Rate 116 H 116 H 116 H Respiratory Rate 21 H Blood Pressure 95/59 L 97/65 L 97/65 L Pulse Oximetry 96 Oxygen Delivery Fraction of Inspired Oxygen 03/29/24 04:00 03/29/24 04:00 03/29/24 04:00 Temperature Pulse Rate 116 H 116 H 110 H Respiratory Rate 21 H 21 H 21 H Blood Pressure Pulse Oximetry 90 Oxygen Delivery Mechanical Ventilation Fraction of Inspired Oxygen 80 03/29/24 04:00 03/29/24 04:00 03/29/24 05:11 Temperature 38.9 C H Pulse Rate 110 H Respiratory Rate Blood Pressure Pulse Oximetry Oxygen Delivery Fraction of Inspired Oxygen 80 03/29/24 05:27 03/29/24 06:00 03/29/24 06:00 Temperature 38.8 C H Pulse Rate 125 H 120 H 111 H Respiratory Rate 21 H Blood Pressure 97/71 L 97/71 L Pulse Oximetry 97 90 Oxygen Delivery Mechanical Ventilation Fraction of Inspired Oxygen 80 03/29/24 06:00 03/29/24 06:00 03/29/24 06:00 Temperature Pulse Rate 120 H 120 H 114 H Respiratory Rate 21 H 21 H Blood Pressure Pulse Oximetry Oxygen Delivery Fraction of Inspired Oxygen 03/29/24 06:03 03/29/24 06:41 03/29/24 06:41 Temperature Pulse Rate 116 H 110 H 110 H Respiratory Rate Blood Pressure 88/67 L 91/66 L 91/66 L Pulse Oximetry Oxygen Delivery Fraction of Inspired Oxygen 03/29/24 08:44 03/29/24 09:26 03/29/24 09:26 Temperature Pulse Rate 106 H 101 H 101 H Respiratory Rate Blood Pressure 96/66 L 96/66 L Pulse Oximetry 99 Oxygen Delivery Mechanical Ventilation Fraction of Inspired Oxygen 80 03/29/24 11:00 03/29/24 11:20 03/29/24 11:20 Temperature Pulse Rate 111 H 98 98 Respiratory Rate Blood Pressure 113/76 113/76 Pulse Oximetry 99 Oxygen Delivery Mechanical Ventilation Fraction of Inspired Oxygen 80 Intake/Output Intake/Output: Intake & Output 03/26/24 03/27/24 03/28/24 03/29/24 23:59 23:59 23:59 23:59 Intake Total 1505.5 3420.3 667.0 Output Total 450 1400 650 Balance 1055.5 2020.3 17.0 Meds/Results Medications: Active Medications Generic Name Dose Route Start Last Admin Trade Name Freq PRN Reason Stop Dose Admin Acetaminophen 650 mg 03/27/24 14:41 03/29/24 05:11 Acetaminophen 325 Mg Tablet PO 650 mg Q4H PRN Administration Mild Pain (1-3) or Fever Apixaban 5 mg 03/27/24 12:35 03/29/24 09:23 Apixaban 5 Mg Tablet PO 5 mg Q12HR LAVERNE Administration Cyanocobalamin 1,000 mcg 03/27/24 17:00 03/29/24 09:23 Cyanocobalamin 1,000 Mcg Tablet PO 1,000 mcg BID LAVERNE Administration Dextrose 12.5 gm 03/27/24 08:57 Dextrose 50% 25 Gm/50 Ml Syringe IV PUSH PRN PRN Hypoglycemia Protocol Glucagon 1 mg 03/27/24 08:57 Glucagon For Inj 1 Mg Vial IM PRN PRN Hypoglycemia Protocol Glucose 15 gm 03/27/24 08:57 Glucose Oral Gel 15 Gm Of Glucse In 37.5 Gm Tube PO PRN PRN Hypoglycemia Protocol Hydrocortisone Sodium Succinate 50 mg 03/28/24 16:00 03/29/24 09:23 Hydrocortisone Sodium Succinate 100 Mg/2 Ml Vial IV PUSH 50 mg Q6H LAVERNE Administration Azithromycin 500 mg in 250 mls @ 250 mls/hr 03/28/24 06:00 03/29/24 06:13 Zithromax IVPB 250 mls/hr Q24H LAVERNE Administration Dextrose 1,000 mls @ 100 mls/hr 03/27/24 08:57 Dextrose 5% 1,000 Ml IVPB PRN PRN Hypoglycemia Protocol Cefepime HCl 2 gm in 50 mls @ 100 mls/hr 03/27/24 14:45 03/29/24 05:42 Maxipime 2 Gm/Ns 50 Ml IVPB Infused Q8HR LAVERNE Infusion Fentanyl Citrate 2,500 mcg in 250 mls @ 2.5 mls/hr 03/28/24 15:45 03/29/24 06:00 Fentanyl 2,500 Mcg/Ns 250 Ml IV CONT 75 mcg/hr .Q72H LAVERNE 7.5 mls/hr Titration Protocol 25 MCG/HR Norepinephrine Bitartrate 8 mg in 250 mls @ 37.5 mls/hr 03/28/24 16:30 03/29/24 06:41 Levophed 8 Mg/D5w 250 Ml IV CONT 20 mcg/min .Q6H40M LAVERNE 37.5 mls/hr Administration Protocol 20 MCG/MIN Vancomycin HCl 1,500 mg in 500 mls @ 250 mls/hr 03/29/24 06:00 03/29/24 06:12 Vancomycin 1,500 Mg/Ns 500 Ml IVPB 250 mls/hr Q12H LAVERNE Administration Vasopressin 100 units/ 100 mls @ 2.4 mls/hr 03/28/24 19:30 03/29/24 09:26 Dextrose IV CONT 0.04 units/min .[id number] LAVERNE 2.4 mls/hr Administration Protocol 0.04 UNITS/MIN Midazolam HCl 100 mg in 100 mls @ 5 mls/hr 03/28/24 19:30 03/29/24 06:00 Versed 100 Mg/Ns 100 Ml IV CONT 5 mg/hr .Q20H LAVERNE 5 mls/hr Titration Protocol 5 MG/HR Amiodarone HCl/Dextrose 360 mg in 200 mls @ 16.667 mls/hr 03/28/24 23:15 03/29/24 11:20 Nexterone 360 Mg/D5w 200 Ml IV CONT 0.5 mg/min .Q12H LAVERNE 16.67 mls/hr Administration 0.5 MG/MIN Albumin Human 100 mls @ 60 mls/hr 03/29/24 12:00 03/29/24 11:21 Albutein IVPB 03/30/24 07:39 60 mls/hr Q6HR LAVERNE Administration Insulin Aspart 4 - 8 units 03/29/24 13:00 03/29/24 12:06 Insulin Aspart (*Bkc) 100 Units/Ml SUB-Q Not Given Q4HR LAVERNE Protocol Insulin Glargine 20 units 03/29/24 09:00 03/29/24 09:38 Insulin Glargine (*Bkc) 100 Units/Ml SUB-Q 20 units QAM LAVERNE Administration Multi-Ingred Cream/Lotion/Oil/Oint 1 applic 03/28/24 21:00 03/29/24 09:39 Mineral Oil/White Petrolatum Ointment EACH EYE 1 applic Q12HR LAVERNE Administration Pantoprazole Sodium 40 mg 03/29/24 09:00 03/29/24 09:24 Pantoprazole Sodium Iv 40 Mg Vial IV PUSH 40 mg DAILY LAVERNE Administration Perflutren Lipid Microsphere 0 ml 03/28/24 09:26 Perflutren Lipid Microspheres 1.5 Ml Vial Diluted To 10 Ml Total Volume IV PUSH 03/31/24 09:26 ONCE PRN adequate visualization Protocol Rosuvastatin Calcium 20 mg 03/28/24 09:00 03/29/24 09:23 Rosuvastatin 20 Mg Tablet PO 20 mg DAILY LAVERNE Administration Sodium Chloride 10 ml 03/28/24 22:00 03/29/24 06:13 Central Line Flush IV PUSH 10 ml Q8HR LAVERNE Administration Sodium Chloride 10 ml 03/28/24 16:14 Central Line Flush IV PUSH PRN PRN with TPN bag changes Sodium Chloride 20 ml 03/28/24 16:14 Central Line Flush IV PUSH PRN PRN after blood draws Radiology Results: ITS Impressions Chest CTA 03/27/24 06:41 Impression: No evidence of pulmonary embolus, aortic dissection, or aortic aneurysm. Extensive right lower lobe pneumonia. Probable mildly prominent reactive lymphadenopathy the right axilla and subcarinal region. Head CT 03/28/24 22:59 IMPRESSION: 1. Normal brain. Chest X-Ray 03/29/24 06:13 Impression: Extensive bilateral airspace disease, right worse than left. Correlate for multifocal bilateral pneumonia versus possibly pulmonary edema. NG tube tip is at the GE junction. Further advancement by at least 10 cm recommended. Additional support tubes in satisfactory positions. Abdomen X-Ray 03/29/24 08:59 IMPRESSION: 1. Lines and tubes in expected positions. 2. Diffuse bilateral lung disease, right greater than left, consistent with multifocal pneumonia. Labs Labs: Laboratory Results - last 24 hr 03/28/24 03/28/24 03/28/24 14:33 15:06 15:14 WBC RBC Hgb Hct MCV MCH MCHC RDW Plt Count MPV Immature Gran % (Auto) Neut % (Auto) Lymph % (Auto) Bremer % (Auto) Eos % (Auto) Baso % (Auto) Lymph # (Auto) Bremer # (Auto) Eos # (Auto) Baso # (Auto) Abs Immat Gran (auto) Absolute Neuts (auto) Absolute Nucleated RBC Total Counted Neutrophils % (Manual) Band Neutrophils % Lymphocytes % (Manual) Monocytes % (Manual) Metamyelocytes % Nucleated RBC % Abs Neuts (Manual) Abs Lymphs (Manual) Abs Monocytes (Manual) Platelet Estimate Anisocytosis Tear Drop Cells Penelope Cells Schistocytes Puncture Site ABG pH ABG pCO2 ABG pO2 ABG PO2/FiO2 Ratio ABG HCO3 ABG O2 Saturation ABG O2 Content ABG Base Excess A-a Gradient Oxyhemoglobin Carboxyhemoglobin Methemoglobin Reduced Hemoglobin Total Hemoglobin O2 Delivery Device O2 Liters/Min Minute Volume Vent Rate Vent Mode FiO2 Tidal Volume PEEP Peak Inspir Pressure Pressure Support Sodium 129 L Potassium 3.3 L Chloride 95 L Carbon Dioxide 25 Anion Gap 9 BUN 19 H Creatinine 0.98 Estim Creat Clear Calc 73 Estimated GFR 56 L Glucose 306 H POC Capillary Glucose 342 H Lactic Acid Calcium 7.9 L Magnesium 1.9 Total Bilirubin 1.4 H AST 135 H ALT 83 H Alkaline Phosphatase 77 Ammonia 15 NT-Pro-B Natriuret Pep 5240 H Total Protein 6.0 L Albumin 3.2 L Triglycerides 66 Procalcitonin Nasal MRSA (PCR) Not detected Influenza A (RT-PCR) Negative Influenza B (RT-PCR) Negative RSV (RT-PCR) Positive A SARS-CoV-2 RNA (RT-PCR) Negative 03/28/24 03/28/24 03/28/24 15:17 15:24 16:37 WBC 14.8 H RBC 4.50 Hgb 13.7 Hct 42.1 MCV 93.6 MCH 30.4 MCHC 32.5 RDW 15.4 H Plt Count 226 MPV 10.1 Immature Gran % (Auto) Not Reportable Neut % (Auto) Not Reportable Lymph % (Auto) Not Reportable Bremer % (Auto) Not Reportable Eos % (Auto) Not Reportable Baso % (Auto) Not Reportable Lymph # (Auto) Not Reportable Bremer # (Auto) Not Reportable Eos # (Auto) Not Reportable Baso # (Auto) Not Reportable Abs Immat Gran (auto) Not Reportable Absolute Neuts (auto) Not Reportable Absolute Nucleated RBC Not Reportable Total Counted 100 Neutrophils % (Manual) 74 H Band Neutrophils % 21 H Lymphocytes % (Manual) 2.0 L Monocytes % (Manual) 2 L Metamyelocytes % 1 Nucleated RBC % Not Reportable Abs Neuts (Manual) 14.06 H Abs Lymphs (Manual) 0.29 L Abs Monocytes (Manual) 0.29 Platelet Estimate Adequate Anisocytosis 1+ Tear Drop Cells Kathy Cells Schistocytes None seen Puncture Site Left radial ABG pH 7.403 ABG pCO2 43.5 ABG pO2 87.8 ABG PO2/FiO2 Ratio 0.88 ABG HCO3 26.5 H ABG O2 Saturation 96.7 ABG O2 Content 19.2 ABG Base Excess 1.4 A-a Gradient 581.7 Oxyhemoglobin 95.9 Carboxyhemoglobin 0.7 Methemoglobin 0.1 Reduced Hemoglobin 3.3 Total Hemoglobin 14.2 O2 Delivery Device Ventilator O2 Liters/Min Not Reportable Minute Volume Not Reportable Vent Rate 20 Vent Mode Cmv FiO2 100 Tidal Volume 400 PEEP 10 Peak Inspir Pressure Not Reportable Pressure Support Not Reportable Sodium Potassium Chloride Carbon Dioxide Anion Gap BUN Creatinine Estim Creat Clear Calc Estimated GFR Glucose POC Capillary Glucose Lactic Acid 2.1 H Calcium Magnesium Total Bilirubin AST ALT Alkaline Phosphatase Ammonia NT-Pro-B Natriuret Pep Total Protein Albumin Triglycerides Procalcitonin 4.4 Nasal MRSA (PCR) Influenza A (RT-PCR) Influenza B (RT-PCR) RSV (RT-PCR) SARS-CoV-2 RNA (RT-PCR) 03/28/24 03/28/24 03/28/24 17:27 21:23 23:05 WBC RBC Hgb Hct MCV MCH MCHC RDW Plt Count MPV Immature Gran % (Auto) Neut % (Auto) Lymph % (Auto) Bremer % (Auto) Eos % (Auto) Baso % (Auto) Lymph # (Auto) Bremer # (Auto) Eos # (Auto) Baso # (Auto) Abs Immat Gran (auto) Absolute Neuts (auto) Absolute Nucleated RBC Total Counted Neutrophils % (Manual) Band Neutrophils % Lymphocytes % (Manual) Monocytes % (Manual) Metamyelocytes % Nucleated RBC % Abs Neuts (Manual) Abs Lymphs (Manual) Abs Monocytes (Manual) Platelet Estimate Anisocytosis Tear Drop Cells Kathy Cells Schistocytes Puncture Site ABG pH ABG pCO2 ABG pO2 ABG PO2/FiO2 Ratio ABG HCO3 ABG O2 Saturation ABG O2 Content ABG Base Excess A-a Gradient Oxyhemoglobin Carboxyhemoglobin Methemoglobin Reduced Hemoglobin Total Hemoglobin O2 Delivery Device O2 Liters/Min Minute Volume Vent Rate Vent Mode FiO2 Tidal Volume PEEP Peak Inspir Pressure Pressure Support Sodium Potassium Chloride Carbon Dioxide Anion Gap BUN Creatinine Estim Creat Clear Calc Estimated GFR Glucose POC Capillary Glucose 259 H 260 H Lactic Acid 1.2 Calcium Magnesium Total Bilirubin AST ALT Alkaline Phosphatase Ammonia NT-Pro-B Natriuret Pep Total Protein Albumin Triglycerides Procalcitonin Nasal MRSA (PCR) Influenza A (RT-PCR) Influenza B (RT-PCR) RSV (RT-PCR) SARS-CoV-2 RNA (RT-PCR) 03/29/24 03/29/24 03/29/24 02:04 05:20 05:30 WBC 15.4 H RBC 4.25 Hgb 12.9 Hct 39.9 MCV 93.9 MCH 30.4 MCHC 32.3 RDW 15.8 H Plt Count 224 MPV 10.2 Immature Gran % (Auto) 1.5 H Neut % (Auto) 94.2 H Lymph % (Auto) 1.2 L Bremer % (Auto) 2.4 L Eos % (Auto) 0.6 Baso % (Auto) 0.1 L Lymph # (Auto) 0.19 L Bremer # (Auto) 0.4 Eos # (Auto) 0.1 Baso # (Auto) 0.0 Abs Immat Gran (auto) 0.23 H Absolute Neuts (auto) 14.5 H Absolute Nucleated RBC 0.000 Total Counted Neutrophils % (Manual) Band Neutrophils % Lymphocytes % (Manual) Monocytes % (Manual) Metamyelocytes % Nucleated RBC % 0.0 Abs Neuts (Manual) Abs Lymphs (Manual) Abs Monocytes (Manual) Platelet Estimate Adequate Anisocytosis 1+ Tear Drop Cells 1+ Penelope Cells 1+ Schistocytes None seen Puncture Site Right radial ABG pH 7.360 ABG pCO2 50.9 H ABG pO2 92.1 ABG PO2/FiO2 Ratio 1.15 ABG HCO3 28.1 H ABG O2 Saturation 96.7 ABG O2 Content 18.7 ABG Base Excess 1.8 A-a Gradient 424.9 Oxyhemoglobin 96.6 Carboxyhemoglobin 0.3 Methemoglobin 0.1 Reduced Hemoglobin 3.0 Total Hemoglobin 13.7 O2 Delivery Device Ventilator O2 Liters/Min Not Reportable Minute Volume Not Reportable Vent Rate 20 Vent Mode Cmv FiO2 80 Tidal Volume 400 PEEP 12 Peak Inspir Pressure Not Reportable Pressure Support Not Reportable Sodium 131 L Potassium 3.0 L Chloride 95 L Carbon Dioxide 29 Anion Gap 7 BUN 27 H Creatinine 1.17 H Estim Creat Clear Calc 63 Estimated GFR 46 L Glucose 175 H POC Capillary Glucose 229 H Lactic Acid Calcium 7.8 L Magnesium 2.0 Total Bilirubin 1.0 AST 91 H ALT 128 H Alkaline Phosphatase 105 Ammonia NT-Pro-B Natriuret Pep Total Protein 6.0 L Albumin 2.9 L Triglycerides Procalcitonin Nasal MRSA (PCR) Influenza A (RT-PCR) Influenza B (RT-PCR) RSV (RT-PCR) SARS-CoV-2 RNA (RT-PCR) 03/29/24 03/29/24 07:43 11:39 WBC RBC Hgb Hct MCV MCH MCHC RDW Plt Count MPV Immature Gran % (Auto) Neut % (Auto) Lymph % (Auto) Bremer % (Auto) Eos % (Auto) Baso % (Auto) Lymph # (Auto) Bremer # (Auto) Eos # (Auto) Baso # (Auto) Abs Immat Gran (auto) Absolute Neuts (auto) Absolute Nucleated RBC Total Counted Neutrophils % (Manual) Band Neutrophils % Lymphocytes % (Manual) Monocytes % (Manual) Metamyelocytes % Nucleated RBC % Abs Neuts (Manual) Abs Lymphs (Manual) Abs Monocytes (Manual) Platelet Estimate Anisocytosis Tear Drop Cells Penelope Cells Schistocytes Puncture Site ABG pH ABG pCO2 ABG pO2 ABG PO2/FiO2 Ratio ABG HCO3 ABG O2 Saturation ABG O2 Content ABG Base Excess A-a Gradient Oxyhemoglobin Carboxyhemoglobin Methemoglobin Reduced Hemoglobin Total Hemoglobin O2 Delivery Device O2 Liters/Min Minute Volume Vent Rate Vent Mode FiO2 Tidal Volume PEEP Peak Inspir Pressure Pressure Support Sodium Potassium Chloride Carbon Dioxide Anion Gap BUN Creatinine Estim Creat Clear Calc Estimated GFR Glucose POC Capillary Glucose 188 H 247 H Lactic Acid Calcium Magnesium Total Bilirubin AST ALT Alkaline Phosphatase Ammonia NT-Pro-B Natriuret Pep Total Protein Albumin Triglycerides Procalcitonin Nasal MRSA (PCR) Influenza A (RT-PCR) Influenza B (RT-PCR) RSV (RT-PCR) SARS-CoV-2 RNA (RT-PCR)
[2024-03-29] MEDS: NOREPINEPHRINE 8 MG/D5W 250 ML 8 MG/250 ML BAG 30 MG IV CONT (12:35)
[2024-03-29] MEDS: MIDAZOLAM 100MG/NS 100ML(*CRX) 100 MG/100 ML BAG IV CONT (12:42)
[2024-03-29 16:28] LABS: Glucose Point of Care 263 mg/dl (65-105)
[2024-03-29 19:30] LABS: Vancomycin Trough 18.4 ug/mL (10.0-20.0)
[2024-03-29 22:44] LABS: Glucose Point of Care 318 mg/dl (65-105)
[2024-03-30] VITALS (32 sets, daily range): BP systolic 81–113; BP diastolic 51–76; PULSE 75–113; RESP 19–29; TEMP 36.2–37.1; O2SAT 94–100
[2024-03-30] MEDS: ALBUMIN HUMAN 25% 25 GM/100 ML 100 ML IVPB ×2 (00:54→06:55)
[2024-03-30] MEDS: INSULIN ASPART (*BKC) 100 UNITS/ML SUB-Q ×6 (02:14→21:10)
[2024-03-30 02:16] LABS: Glucose Point of Care 301 mg/dl (65-105)
[2024-03-30] MEDS: FENTANYL 2,500MCG/NS250ML(*CRX 2,500 MCG/250 ML BAG IV CONT (03:23)
[2024-03-30] MEDS: HYDROCORTISONE SODIUM SUCCINATE 100 MG/2 ML VIAL 50 MG IV PUSH ×4 (05:12→20:58)
[2024-03-30 05:21] LABS: Alveolar/Arterial O2 Gradient 265.8 mmHg; Base Excess ABG 2.4 mEq/l (+/-2.0); Carboxyhemoglobin 0.5 % THb (0-2.0); Fractional Inspired Oxygen 60 %; HCO3 ABG 29.6 mEq/l (22.0-26.0); Methemoglobin ABG 0.3 %THb (0-1.5); Oxygen Content ABG 17.1 %vol (16.0-22.0); Oxygen Saturation ABG 96.9 % (95.0-100.0); Oxyhemoglobin 96.6 % THb (90.0-100.0); PCO2 ABG 57.7 mmHg (35.0-45.0); PO2 ABG 98.5 mmHg (80.0-100.0); PO2 FiO2 Ratio Arterial Blood 1.64 %; Reduced Hemoglobin 2.6 %THb (0-5.0); Total Hemoglobin 12.5 g/dL (12.0-18.0); pH ABG 7.328 (7.350-7.450)
[2024-03-30 05:35] LABS: Arterial Blood Gas Vent Mode CMV; Arterial Blood Gas Ventilator rate 23 /MIN; Device VENTILATOR; Modified Allen's Test Pass; Site Drawn RIGHT RADIAL
[2024-03-30 05:36] LABS: Arterial Blood Gas PEEP 12 cmH2O; Arterial Blood Gas Tidal Volume 400 ml
[2024-03-30] MEDS: AZITHROMYCIN 500 MG/NS 250 ML 500 MG/250 ML BAG 250 MG IVPB (06:11)
[2024-03-30] MEDS: CEFEPIME 2 GM/NS 50 ML 2 GM/50 ML BAG IVPB ×2 (06:11→16:56)
[2024-03-30] MEDS: CENTRAL LINE FLUSH 10 ML IV PUSH ×3 (06:12→21:11)
[2024-03-30 06:40] LABS: Glucose Point of Care 255 mg/dl (65-105)
[2024-03-30 06:50] LABS: Basophils Absolute Auto 0.1 K/mm3 (0.0-0.1); Basophils Percent Auto 0.8 % (0.2-1.2); Hematocrit 33.7 % (37.0-47.0); Hemoglobin 10.5 g/dL (12.0-15.0); Immature Granulocyte Absolute 0.05 K/mm3 (0.00-0.031); Immature Granulocyte Percent A 0.6 % (0-0.5); Lymphocytes Absolute Auto 0.12 K/mm3 (0.9-3.2); Lymphocytes Percent Auto 1.4 % (18.3-44.2); Mean Corpuscular HGB Conc 31.2 g/dl (32-36); Mean Corpuscular Hemoglobin 29.7 pg (26-34); Mean Corpuscular Volume 95.2 fl (80-100); Mean Platelet Volume 10.6 fl (7.4-10.4); Monocytes Absolute Auto 0.2 K/mm3 (0.1-0.6); Neutrophils Absolute Auto 8.2 K/mm3 (1.3-6.7); Neutrophils Percent Auto 95.2 % (45.5-73.1); Platelet Count Result 163 k/mm3 (150-375); Red Blood Count 3.54 M/mm3 (4.2-5.4); Red Cell Distribution Width 15.7 % (11.5-14.5); White Blood Count 8.6 K/mm3 (4.5-10.0)
[2024-03-30 07:22] LABS: Alanine Aminotransferase 132 U/L (6-35); Albumin Level 3.1 g/dL (3.5-5.1); Alkaline Phosphatase 79 U/L (38-126); Anion Gap 8 mmol/L (4-12); Aspartate Amino Transferase 100 U/L (14-36); Bilirubin,Total 0.8 mg/dL (0.2-1.3); Blood Urea Nitrogen 41 mg/dL (7-17); Calcium 8.4 mg/dL (8.4-10.2); Carbon Dioxide 30 mmol/L (22-30); Chloride 97 mmol/L (98-107); Estimated CRCL calculation 45 ml/min; Estimated Glomerular Filt Rate 30; Glucose 272 mg/dL (65-110); Magnesium 2.2 mg/dL (1.6-2.3); Potassium 3.7 mmol/L (3.4-5.0); Sodium 135 mmol/L (137-145)
[2024-03-30 07:29] LABS: Anisocytosis 1+; Platelet Estimate Adequate (Adequate)
[2024-03-30 07:30] LABS: Burr Cells 2+; Ovalocytes 1+; Schistocytes None Seen
[2024-03-30] MEDS: CYANOCOBALAMIN 1,000 MCG TABLET 1000 MCG PO ×2 (08:36→16:56)
[2024-03-30] MEDS: APIXABAN 5 MG TABLET PO ×2 (08:36→20:58)
[2024-03-30] MEDS: INSULIN GLARGINE (*BKC) 100 UNITS/ML 35 UNITS SUB-Q (08:37)
[2024-03-30] MEDS: ROSUVASTATIN 20 MG TABLET PO (08:37)
[2024-03-30] MEDS: MINERAL OIL/WHITE PETROLATUM OINTMENT 1 APPLIC EACH EYE ×2 (08:37→21:14)
[2024-03-30] MEDS: PANTOPRAZOLE SODIUM IV 40 MG VIAL IV PUSH (08:37)
[2024-03-30] MEDS: ALBUMIN HUMAN 5% 25 GM/500 ML BTL IV CONT (08:43)
[2024-03-30 08:48] LABS: Glucose Point of Care 319 mg/dl (65-105)
--- NOTE | 2024-03-30 08:48 | P.PNINT_ITS ---
Progress Note: A&P Assessment and Plan (1) Acute hypoxic respiratory failure: Code(s): J96.01 - Acute respiratory failure with hypoxia Status: Acute Assessment and Plan: Acute hypoxic respiratory failure secondary to pneumonia and possible component congestive heart failure 03/27 CTA chest No evidence of pulmonary embolus, aortic dissection, or aortic aneurysm. Extensive right lower lobe pneumonia. Probable mildly prominent reactive lymphadenopathy the right axilla and subcarinal region. Patient now emergently intubated 03/28 Chest x-ray and ABG reviewed Continue peep of 12 and FiO2 is down to 60 per Hold further crystal IV fluid Continue Versed and fentanyl for sedation Repeat PCR was positive RSV -isolation Hydrocortisone for severe pneumonia and shock (2) Sepsis: Code(s): A41.9 - Sepsis, unspecified organism Status: Acute Assessment and Plan: Sepsis secondary to community-acquired pneumonia Blood cultures ordered and pending Pain sputum culture Urine Legionella and pneumococcal antigen pending Continue empiric vancomycin cefepime azithromycin. procalcitonin level 4.4 (3) Diabetes: Code(s): E11.9 - Type 2 diabetes mellitus without complications Status: Acute Assessment and Plan: Sliding scale insulin Increase dose of Lantus Continue tube feed (4) Atrial fibrillation with RVR: Code(s): I48.91 - Unspecified atrial fibrillation Status: Acute Assessment and Plan: Continue amiodarone infusion ordered by Cardiology Patient is anticoagulated with Eliquis Echo Summary 1. Very technically difficult study with limited views. 2. Left ventricular chamber dimension is normal. 3. Left ventricular systolic function is at lower limits of normal, estimated at 50-55%. 4. Left atrial chamber dimension is moderately enlarged (5) Community acquired pneumonia: Code(s): J18.9 - Pneumonia, unspecified organism Status: Acute Assessment and Plan: See above (6) Altered mental status: Code(s): R41.82 - Altered mental status, unspecified Status: Acute Assessment and Plan: Likely secondary to hypoxic. Patient had CT scan of the head recently done which was unremarkable Repeat head CT on 03/28 was again on remark And ammonia normal TSH was normal (7) Electrolyte abnormality: Code(s): E87.8 - Other disorders of electrolyte and fluid balance, not elsewhere classified Status: Acute Assessment and Plan: Potassium replacement ordered (8) Shock: Code(s): R57.9 - Shock, unspecified Status: Acute Assessment and Plan: Continue vasopressin infusion. She has been weaned off Levophed Continue hydrocortisone She receive 25% albumin Hold further crystalloids (9) VINCENT (acute kidney injury): Code(s): N17.9 - Acute kidney failure, unspecified Status: Acute Assessment and Plan: Increase in creatinine and drop in urine output likely secondary to shock Patient is overall volume overloaded Will give 5% albumin bolus Check urine electrolytes and CK level If creatinine further deteriorates Will or ordered additional workup Hold diuretics and maintain mean arterial pressure with vasopressors Plan DVT prophylaxis -Eliquis Stress ulcer prophylaxis -protonix Nutrition -continue tube feed Code Status - Full Code Total Critical Care Time - 35 minutes Due to a high probability of clinically significant, life threatening deterioration, the patient required my highest level of preparedness to intervene emergently and I personally spent this critical care time directly and personally managing the patient. This critical care time included obtaining a history; examining the patient; pulse oximetry; ordering and review of studies; arranging urgent treatment with development of a management plan; evaluation of patient's response to treatment; frequent reassessment; and discussions with other providers. It was exclusive of separately billable procedures and treating other patients and teaching time. Please see Assessment and Plan section and the rest of the note for further information on patient assessment and treatment Subjective Date/time seen: 03/30/24 Overnight events reviewed. Afebrile Continues to be on mechanical ventilation 12 peep and 60% FiO2 Continues to be on vasopressors Continues to be sedated with Versed) Decreasing urine output Tolerating tube feed Review of Systems Review of Systems: ROS unobtainable: Yes unobtainable due to endotracheal tube, unobtainable due to medical condition and unobtainable due to mental status Exam Narrative: General: Pt is now sedated, intubated and on mechanical ventilation peer Lungs/Chest: Trachea central Coarse BS B/L, Cardiac: RRR. Normal S1 S2. No murmurs Circulation: Pedal pulses are intact and symmetrical. Abdomen: Decreased bowel sounds. Morbidly Obese. Soft. NT. ND. Extremities: No clubbing, cyanosis or bilateral pitting edema present : Can in place Neurologic: Unable to assess due to emergent situation. PERRL Objective Data Vital Signs Vital Signs: Vital Signs - 24 hr 03/29/24 09:26 03/29/24 09:26 03/29/24 10:00 Temperature Pulse Rate 101 H 101 H 102 H Respiratory Rate Blood Pressure 96/66 L 96/66 L Pulse Oximetry Oxygen Delivery Fraction of Inspired Oxygen 03/29/24 10:00 03/29/24 10:00 03/29/24 10:00 Temperature 37.9 C H Pulse Rate 102 H 102 H 102 H Respiratory Rate 20 20 20 Blood Pressure 106/75 Pulse Oximetry 98 Oxygen Delivery Fraction of Inspired Oxygen 03/29/24 10:00 03/29/24 10:00 03/29/24 10:02 Temperature Pulse Rate 102 H 102 H 102 H Respiratory Rate Blood Pressure 106/75 106/75 106/75 Pulse Oximetry Oxygen Delivery Fraction of Inspired Oxygen 03/29/24 10:16 03/29/24 10:33 03/29/24 11:00 Temperature Pulse Rate 102 H 100 111 H Respiratory Rate Blood Pressure 108/71 109/88 Pulse Oximetry 99 Oxygen Delivery Mechanical Ventilation Fraction of Inspired Oxygen 80 03/29/24 11:20 03/29/24 11:20 03/29/24 11:20 Temperature Pulse Rate 98 98 103 H Respiratory Rate Blood Pressure 113/76 113/76 113/76 Pulse Oximetry Oxygen Delivery Fraction of Inspired Oxygen 03/29/24 12:00 03/29/24 12:00 03/29/24 12:00 Temperature 38.1 C H Pulse Rate 110 H 101 H 101 H Respiratory Rate 20 20 Blood Pressure 101/79 Pulse Oximetry 99 Oxygen Delivery Fraction of Inspired Oxygen 03/29/24 12:00 03/29/24 12:00 03/29/24 12:00 Temperature Pulse Rate 101 H 101 H Respiratory Rate 20 Blood Pressure 101/79 Pulse Oximetry Oxygen Delivery Fraction of Inspired Oxygen 70 03/29/24 12:00 03/29/24 12:00 03/29/24 12:35 Temperature Pulse Rate 101 H 102 H Respiratory Rate Blood Pressure 101/79 97/67 L Pulse Oximetry Oxygen Delivery Mechanical Ventilation Fraction of Inspired Oxygen 70 03/29/24 12:35 03/29/24 12:42 03/29/24 12:42 Temperature Pulse Rate 102 H 92 92 Respiratory Rate 25 H 25 H Blood Pressure 97/67 L Pulse Oximetry Oxygen Delivery Fraction of Inspired Oxygen 03/29/24 12:45 03/29/24 12:48 03/29/24 13:15 Temperature Pulse Rate 91 83 90 Respiratory Rate 23 H Blood Pressure 112/78 117/77 Pulse Oximetry Oxygen Delivery Fraction of Inspired Oxygen 03/29/24 13:44 03/29/24 14:00 03/29/24 14:00 Temperature Pulse Rate 110 H 95 95 Respiratory Rate 20 Blood Pressure 104/75 Pulse Oximetry 99 Oxygen Delivery Mechanical Ventilation Fraction of Inspired Oxygen 70 03/29/24 14:00 03/29/24 14:00 03/29/24 14:00 Temperature 37.8 C H Pulse Rate 95 95 95 Respiratory Rate 20 Blood Pressure 104/75 104/75 Pulse Oximetry 99 Oxygen Delivery Fraction of Inspired Oxygen 03/29/24 14:00 03/29/24 14:24 03/29/24 14:24 Temperature Pulse Rate 95 91 92 Respiratory Rate 20 20 Blood Pressure 102/81 Pulse Oximetry Oxygen Delivery Fraction of Inspired Oxygen 03/29/24 15:55 03/29/24 16:00 03/29/24 16:00 Temperature Pulse Rate 89 87 87 Respiratory Rate 21 H Blood Pressure 109/79 108/69 Pulse Oximetry Oxygen Delivery Fraction of Inspired Oxygen 03/29/24 16:00 03/29/24 16:00 03/29/24 16:00 Temperature Pulse Rate 87 87 Respiratory Rate 21 H Blood Pressure 108/69 Pulse Oximetry Oxygen Delivery Mechanical Ventilation Fraction of Inspired Oxygen 70 03/29/24 16:00 03/29/24 16:00 03/29/24 16:00 Temperature 37.6 C H Pulse Rate 92 87 Respiratory Rate 21 H Blood Pressure 108/69 Pulse Oximetry 99 Oxygen Delivery Fraction of Inspired Oxygen 70 03/29/24 16:31 03/29/24 17:21 03/29/24 17:57 Temperature Pulse Rate 91 97 117 H Respiratory Rate 22 H Blood Pressure 105/70 132/79 Pulse Oximetry Oxygen Delivery Fraction of Inspired Oxygen 03/29/24 17:57 03/29/24 18:00 03/29/24 18:00 Temperature 37.5 C Pulse Rate 99 92 92 Respiratory Rate 22 H Blood Pressure 114/64 Pulse Oximetry 99 97 Oxygen Delivery Mechanical Ventilation Fraction of Inspired Oxygen 60 03/29/24 18:00 03/29/24 18:00 03/29/24 18:00 Temperature Pulse Rate 92 92 92 Respiratory Rate 22 H 22 H Blood Pressure 114/64 Pulse Oximetry Oxygen Delivery Fraction of Inspired Oxygen 03/29/24 18:00 03/29/24 18:14 03/29/24 19:42 Temperature Pulse Rate 92 96 91 Respiratory Rate Blood Pressure 114/64 114/64 Pulse Oximetry 98 Oxygen Delivery Mechanical Ventilation Fraction of Inspired Oxygen 60 03/29/24 20:00 03/29/24 20:00 03/29/24 20:00 Temperature Pulse Rate 91 87 Respiratory Rate 22 H Blood Pressure Pulse Oximetry 98 Oxygen Delivery Mechanical Ventilation Fraction of Inspired Oxygen 60 60 03/29/24 20:00 03/29/24 20:00 03/29/24 20:00 Temperature 37.3 C Pulse Rate 93 93 93 Respiratory Rate 21 H 21 H Blood Pressure 103/76 103/76 Pulse Oximetry 97 Oxygen Delivery Fraction of Inspired Oxygen 03/29/24 20:00 03/29/24 20:00 03/29/24 20:00 Temperature Pulse Rate 93 93 93 Respiratory Rate 21 H Blood Pressure 103/76 Pulse Oximetry Oxygen Delivery Fraction of Inspired Oxygen 03/29/24 21:00 03/29/24 22:00 03/29/24 22:00 Temperature Pulse Rate 95 95 96 Respiratory Rate 21 H Blood Pressure 108/80 110/72 Pulse Oximetry Oxygen Delivery Fraction of Inspired Oxygen 03/29/24 22:00 03/29/24 22:00 03/29/24 22:00 Temperature Pulse Rate 96 96 96 Respiratory Rate 21 H Blood Pressure Pulse Oximetry Oxygen Delivery Fraction of Inspired Oxygen 03/29/24 22:00 03/29/24 22:00 03/29/24 22:31 Temperature 37.2 C Pulse Rate 95 95 96 Respiratory Rate 21 H Blood Pressure 110/72 108/75 Pulse Oximetry 97 Oxygen Delivery Fraction of Inspired Oxygen 03/29/24 23:04 03/29/24 23:04 03/29/24 23:14 Temperature Pulse Rate 100 100 107 H Respiratory Rate Blood Pressure Pulse Oximetry 96 Oxygen Delivery Mechanical Ventilation Fraction of Inspired Oxygen 60 03/30/24 00:00 03/30/24 00:00 03/30/24 00:00 Temperature Pulse Rate 92 Respiratory Rate 21 H Blood Pressure Pulse Oximetry 96 Oxygen Delivery Mechanical Ventilation Fraction of Inspired Oxygen 60 60 03/30/24 00:00 03/30/24 00:00 03/30/24 00:00 Temperature 37.0 C Pulse Rate 92 96 96 Respiratory Rate 23 H 21 H Blood Pressure 107/72 Pulse Oximetry 96 Oxygen Delivery Fraction of Inspired Oxygen 03/30/24 00:00 03/30/24 00:00 03/30/24 01:00 Temperature Pulse Rate 96 96 100 Respiratory Rate 21 H Blood Pressure Pulse Oximetry Oxygen Delivery Fraction of Inspired Oxygen 03/30/24 01:45 03/30/24 02:00 03/30/24 02:00 Temperature Pulse Rate 97 95 95 Respiratory Rate 21 H Blood Pressure 104/70 106/70 Pulse Oximetry Oxygen Delivery Fraction of Inspired Oxygen 03/30/24 02:00 03/30/24 02:00 03/30/24 02:00 Temperature Pulse Rate 99 96 111 H Respiratory Rate 21 H Blood Pressure Pulse Oximetry Oxygen Delivery Fraction of Inspired Oxygen 03/30/24 02:00 03/30/24 02:30 03/30/24 02:33 Temperature 37.1 C Pulse Rate 105 H 102 H 103 H Respiratory Rate 21 H Blood Pressure 106/70 105/71 Pulse Oximetry 95 98 Oxygen Delivery Mechanical Ventilation Fraction of Inspired Oxygen 60 03/30/24 03:21 03/30/24 03:23 03/30/24 03:23 Temperature Pulse Rate 97 106 H 106 H Respiratory Rate 23 H 23 H Blood Pressure 113/65 Pulse Oximetry Oxygen Delivery Fraction of Inspired Oxygen 03/30/24 03:25 03/30/24 04:00 03/30/24 04:00 Temperature 36.7 C Pulse Rate 105 H 108 H 108 H Respiratory Rate 22 H Blood Pressure 113/65 96/57 L Pulse Oximetry 95 Oxygen Delivery Fraction of Inspired Oxygen 03/30/24 04:00 03/30/24 04:00 03/30/24 04:00 Temperature Pulse Rate 106 H 108 H 90 Respiratory Rate 22 H 22 H Blood Pressure Pulse Oximetry 94 Oxygen Delivery Mechanical Ventilation Fraction of Inspired Oxygen 60 03/30/24 04:00 03/30/24 05:15 03/30/24 05:30 Temperature Pulse Rate 113 H 111 H Respiratory Rate Blood Pressure 101/73 111/63 Pulse Oximetry Oxygen Delivery Fraction of Inspired Oxygen 60 03/30/24 05:30 03/30/24 05:30 03/30/24 05:45 Temperature Pulse Rate 97 98 105 H Respiratory Rate 22 H Blood Pressure Pulse Oximetry 96 Oxygen Delivery Mechanical Ventilation Fraction of Inspired Oxygen 60 03/30/24 06:00 03/30/24 06:00 03/30/24 06:00 Temperature 36.6 C Pulse Rate 90 90 90 Respiratory Rate 19 22 H Blood Pressure 93/64 L Pulse Oximetry 94 Oxygen Delivery Fraction of Inspired Oxygen Intake/Output Intake/Output: Intake & Output 03/27/24 03/28/24 03/29/24 03/30/24 23:59 23:59 23:59 23:59 Intake Total 1505.5 3420.3 2837.6 861.2 Output Total 450 1400 850 260 Balance 1055.5 2020.3 1987.6 601.2 Meds/Results Medications: Active Medications Generic Name Dose Route Start Last Admin Trade Name Freq PRN Reason Stop Dose Admin Acetaminophen 650 mg 03/27/24 14:41 03/29/24 05:11 Acetaminophen 325 Mg Tablet PO 650 mg Q4H PRN Administration Mild Pain (1-3) or Fever Apixaban 5 mg 03/27/24 12:35 03/30/24 08:36 Apixaban 5 Mg Tablet PO 5 mg Q12HR [facility] Administration Cyanocobalamin 1,000 mcg 03/27/24 17:00 03/30/24 08:36 Cyanocobalamin 1,000 Mcg Tablet PO 1,000 mcg BID [facility] Administration Dextrose 12.5 gm 03/27/24 08:57 Dextrose 50% 25 Gm/50 Ml Syringe IV PUSH PRN PRN Hypoglycemia Protocol Glucagon 1 mg 03/27/24 08:57 Glucagon For Inj 1 Mg Vial IM PRN PRN Hypoglycemia Protocol Glucose 15 gm 03/27/24 08:57 Glucose Oral Gel 15 Gm Of Glucse In 37.5 Gm Tube PO PRN PRN Hypoglycemia Protocol Hydrocortisone Sodium Succinate 50 mg 03/28/24 16:00 03/30/24 08:37 Hydrocortisone Sodium Succinate 100 Mg/2 Ml Vial IV PUSH 50 mg Q6H [facility] Administration Azithromycin 500 mg in 250 mls @ 250 mls/hr 03/28/24 06:00 03/30/24 06:11 Zithromax IVPB 250 mls/hr Q24H [facility] Administration Dextrose 1,000 mls @ 100 mls/hr 03/27/24 08:57 Dextrose 5% 1,000 Ml IVPB PRN PRN Hypoglycemia Protocol Fentanyl Citrate 2,500 mcg in 250 mls @ 5 mls/hr 03/28/24 15:45 03/30/24 0 5:30 Fentanyl 2,500 Mcg/Ns 250 Ml IV CONT 50 mcg/hr .Q50H [facility] 5 mls/hr Titration Protocol 50 MCG/HR Norepinephrine Bitartrate 8 mg in 250 mls @ 1.875 mls/hr 03/28/24 16:30 03/30/24 05:15 Levophed 8 Mg/D5w 250 Ml IV CONT Infused .Q24H [facility] Titration Protocol 1 MCG/MIN Vasopressin 100 units/ 100 mls @ 1.2 mls/hr 03/28/24 19:30 03/30/24 05:30 Dextrose IV CONT 0.02 units/min .Q72H [facility] 1.2 mls/hr Titration Protocol 0.02 UNITS/MIN Midazolam HCl 100 mg in 100 mls @ 3 mls/hr 03/28/24 19:30 03/30/24 06:00 Versed 100 Mg/Ns 100 Ml IV CONT 3 mg/hr .[id number] [facility] 3 mls/hr Titration Protocol 3 MG/HR Amiodarone HCl/Dextrose 360 mg in 200 mls @ 16.667 mls/hr 03/28/24 23:15 03/30/24 05:30 Nexterone 360 Mg/D5w 200 Ml IV CONT 0.5 mg/min .Q12H [facility] 16.67 mls/hr Infusion 0.5 MG/MIN Cefepime HCl 2 gm in 50 mls @ 100 mls/hr 03/30/24 18:00 Maxipime 2 Gm/Ns 50 Ml IVPB Q12H [facility] Albumin Human 25 gm in 500 mls @ 125 mls/hr 03/30/24 08:00 03/30/24 08:43 Albumin Human 5% IV CONT 03/30/24 11:59 125 mls/hr .Q4H ONE Administration Insulin Aspart 4 - 8 units 03/29/24 13:00 03/30/24 08:36 Insulin Aspart (*Bkc) 100 Units/Ml SUB-Q 6 units Q4HR [facility] Administration Protocol Insulin Glargine 35 units 03/30/24 09:00 03/30/24 08:37 Insulin Glargine (*Bkc) 100 Units/Ml SUB-Q 35 units QAM [facility] Administration Multi-Ingred Cream/Lotion/Oil/Oint 1 applic 03/28/24 21:00 03/30/24 08:37 Mineral Oil/White Petrolatum Ointment EACH EYE 1 applic Q12HR [facility] Administration Pantoprazole Sodium 40 mg 03/29/24 09:00 03/30/24 08:37 Pantoprazole Sodium Iv 40 Mg Vial IV PUSH 40 mg DAILY [facility] Administration Perflutren Lipid Microsphere 0 ml 03/28/24 09:26 Perflutren Lipid Microspheres 1.5 Ml Vial Diluted To 10 Ml Total Volume IV PUSH 03/31/24 09:26 ONCE PRN adequate visualization Protocol Rosuvastatin Calcium 20 mg 03/28/24 09:00 03/30/24 08:37 Rosuvastatin 20 Mg Tablet PO 20 mg DAILY [facility] Administration Sodium Chloride 10 ml 03/28/24 22:00 03/30/24 06:12 Central Line Flush IV PUSH 10 ml Q8HR [facility] Administration Sodium Chloride 10 ml 03/28/24 16:14 Central Line Flush IV PUSH PRN PRN with TPN bag changes Sodium Chloride 20 ml 03/28/24 16:14 Central Line Flush IV PUSH PRN PRN after blood draws Vancomycin HCl 1 each 03/30/24 07:30 Vancomycin For Acute Kidney Injury IVPB PRN PRN Vancomycin Protocol Radiology Results: ITS Impressions Chest CTA 03/27/24 06:41 Impression: No evidence of pulmonary embolus, aortic dissection, or aortic aneurysm. Extensive right lower lobe pneumonia. Probable mildly prominent reactive lymphadenopathy the right axilla and subcarinal region. Head CT 03/28/24 22:59 IMPRESSION: 1. Normal brain. Abdomen X-Ray 03/29/24 08:59 IMPRESSION: 1. Lines and tubes in expected positions. 2. Diffuse bilateral lung disease, right greater than left, consistent with multifocal pneumonia. Chest X-Ray 03/30/24 06:06 Impression: 1: Stable bilateral airspace disease which may represent edema or pneumonia. Labs Labs: Laboratory Results - last 24 hr 03/29/24 03/29/24 03/29/24 11:39 16:22 18:11 WBC RBC Hgb Hct MCV MCH MCHC RDW Plt Count MPV Immature Gran % (Auto) Neut % (Auto) Lymph % (Auto) [place] % (Auto) Eos % (Auto) Baso % (Auto) Lymph # (Auto) [place] # (Auto) Eos # (Auto) Baso # (Auto) Abs Immat Gran (auto) Absolute Neuts (auto) Absolute Nucleated RBC Nucleated RBC % Platelet Estimate Anisocytosis Ovalocytes Adams Cells Schistocytes Puncture Site ABG pH ABG pCO2 ABG pO2 ABG PO2/FiO2 Ratio ABG HCO3 ABG O2 Saturation ABG O2 Content ABG Base Excess A-a Gradient Oxyhemoglobin Carboxyhemoglobin Methemoglobin Reduced Hemoglobin Total Hemoglobin O2 Delivery Device O2 Liters/Min Minute Volume Vent Rate Vent Mode FiO2 Tidal Volume PEEP Peak Inspir Pressure Pressure Support Sodium Potassium Chloride Carbon Dioxide Anion Gap BUN Creatinine Estim Creat Clear Calc Estimated GFR Glucose POC Capillary Glucose 247 H 263 H Calcium Magnesium Total Bilirubin AST ALT Alkaline Phosphatase Total Protein Albumin Vancomycin Trough 18.4 03/29/24 03/30/24 03/30/24 22:25 02:11 04:43 WBC RBC Hgb Hct MCV MCH MCHC RDW Plt Count MPV Immature Gran % (Auto) Neut % (Auto) Lymph % (Auto) [place] % (Auto) Eos % (Auto) Baso % (Auto) Lymph # (Auto) [place] # (Auto) Eos # (Auto) Baso # (Auto) Abs Immat Gran (auto) Absolute Neuts (auto) Absolute Nucleated RBC Nucleated RBC % Platelet Estimate Anisocytosis Ovalocytes Adams Cells Schistocytes Puncture Site Right radial ABG pH 7.328 L ABG pCO2 57.7 H ABG pO2 98.5 ABG PO2/FiO2 Ratio 1.64 ABG HCO3 29.6 H ABG O2 Saturation 96.9 ABG O2 Content 17.1 ABG Base Excess 2.4 A-a Gradient 265.8 Oxyhemoglobin 96.6 Carboxyhemoglobin 0.5 Methemoglobin 0.3 Reduced Hemoglobin 2.6 Total Hemoglobin 12.5 O2 Delivery Device Ventilator O2 Liters/Min Not Reportable Minute Volume Not Reportable Vent Rate 23 Vent Mode Cmv FiO2 60 Tidal Volume 400 PEEP 12 Peak Inspir Pressure Not Reportable Pressure Support Not Reportable Sodium Potassium Chloride Carbon Dioxide Anion Gap BUN Creatinine Estim Creat Clear Calc Estimated GFR Glucose POC Capillary Glucose 318 H 301 H Calcium Magnesium Total Bilirubin AST ALT Alkaline Phosphatase Total Protein Albumin Vancomycin Trough 03/30/24 03/30/24 03/30/24 06:09 06:19 08:34 WBC 8.6 RBC 3.54 L Hgb 10.5 L Hct 33.7 L MCV 95.2 MCH 29.7 MCHC 31.2 L RDW 15.7 H Plt Count 163 MPV 10.6 H Immature Gran % (Auto) 0.6 H Neut % (Auto) 95.2 H Lymph % (Auto) 1.4 L [place] % (Auto) 2.0 L Eos % (Auto) 0.0 Baso % (Auto) 0.8 Lymph # (Auto) 0.12 L [place] # (Auto) 0.2 Eos # (Auto) 0.0 Baso # (Auto) 0.1 Abs Immat Gran (auto) 0.05 H Absolute Neuts (auto) 8.2 H Absolute Nucleated RBC 0.000 Nucleated RBC % 0.0 Platelet Estimate Adequate Anisocytosis 1+ Ovalocytes 1+ Kathy Cells 2+ Schistocytes None seen Puncture Site ABG pH ABG pCO2 ABG pO2 ABG PO2/FiO2 Ratio ABG HCO3 ABG O2 Saturation ABG O2 Content ABG Base Excess A-a Gradient Oxyhemoglobin Carboxyhemoglobin Methemoglobin Reduced Hemoglobin Total Hemoglobin O2 Delivery Device O2 Liters/Min Minute Volume Vent Rate Vent Mode FiO2 Tidal Volume PEEP Peak Inspir Pressure Pressure Support Sodium 135 L Potassium 3.7 Chloride 97 L Carbon Dioxide 30 Anion Gap 8 BUN 41 H D Creatinine 1.70 H Estim Creat Clear Calc 45 Estimated GFR 30 L Glucose 272 H POC Capillary Glucose 255 H 319 H Calcium 8.4 Magnesium 2.2 Total Bilirubin 0.8 AST 100 H ALT 132 H Alkaline Phosphatase 79 Total Protein 6.0 L Albumin 3.1 L Vancomycin Trough Quality VTE Prophylaxis VTE prophylaxis: pharmacologic ordered
[2024-03-30 08:50] LABS: Creatine Kinase 73 U/L (30-135)
--- NOTE | 2024-03-30 10:09 | PM.PNCARD ---
Progress Note: A&P Assessment and Plan (1) Atrial fibrillation with RVR: Code(s): I48.91 - Unspecified atrial fibrillation Status: Acute (2) Acute on chronic heart failure: Code(s): I50.9 - Heart failure, unspecified Status: Acute (3) Hypertension: Code(s): I10 - Essential (primary) hypertension Status: Acute (4) Sepsis: Code(s): A41.9 - Sepsis, unspecified organism Status: Acute (5) Community acquired pneumonia: Code(s): J18.9 - Pneumonia, unspecified organism Status: Acute (6) Acute hypoxic respiratory failure: Code(s): J96.01 - Acute respiratory failure with hypoxia Status: Acute (7) Atrial fibrillation: Code(s): I48.91 - Unspecified atrial fibrillation Status: Acute Plan Atrial fibrillation with RVR Acute hypoxic respiratory failure requiring mechanical ventilation RSV infection Shock, on pressors Acute on chronic heart failure - LVEF 50-55% per TTE 03/29/2024 Pneumonia on antibiotics Sepsis secondary to pneumonia Hypertension Hyperlipidemia - Obstructive sleep apnea not compliant with CPAP Diabetes mellitus Plan: Currently rate controlled AFIB. Continue Amiodarone drip. Given rate controlled AFIB, will not pursue cardioversion at this time. Hold Metoprolol due to pressor requirement for shock. Continue Apixaban for anticoagulation to reduce risk of stroke in AFIB. Monitor on telemetry Check and replace electrolytes as needed keeping potassium greater than 4 and magnesium greater than 2 Continue Rosuvastatin for hyperlipidemia Holding home antihypertensives due to pressor requirement for shock Obtain outside hospital records from [facility] where patient had cardiac workup recently Continue intermittent IV Lasix as needed. Recommendations and plan discussed with ICU Physician. Subjective Date/time seen: 03/30/24 10:09 Interval history: Reason for visit: Atrial fibrillation with RVR HPI: 68-year-old female with recently diagnosed with atrial fibrillation in January, status post SHAYY cardioversion with successful conversion to sinus rhythm for approximately 1 week and then converted back into AFib, obstructive sleep apnea not using CPAP, diabetes mellitus, hyperlipidemia, hypertension, endometrial cancer presents with chief complaint of worsening shortness of breath, leg swelling and weight gain over the past few weeks. She denies any chest pain 8 and at rest or with activity. She feels lightheaded and dizziness occasionally. She has off and on palpitations. She reports productive cough for about 1 week without any fevers, chills, nausea, emesis, abdominal pain, diarrhea. She does not have any recent sick contacts. She reports an episode of ambulating and losing her balance resulting in ground level fall. No symptoms of dizziness or lightheadedness at the time of the fall. There was no loss of consciousness. For atrial fibrillation with RVR, patient was given IV metoprolol and IV Cardizem with no response. She continued to have RVR. She was then transferred to IMU and a Cardizem drip was started with little response on heart rates. She continued to have heart rates in the 120s to 140s range. At this time Cardizem was stopped and amiodarone was given as a bolus and a drip was started. Her heart rate is are in the 120s to 150s at rest while on amiodarone drip. Patient is extremely short of breath with RVR. Date of service 03/28: She remains in atrial fibrillation with RVR. She reports feeling about the same as she did yesterday. Date of service 03/29: Yesterday, rapid response was called due to desaturations and unresponsive. Now intubated and in the ICU. On tele, she is in rate controlled AFIB, remains on Amiodarone. Date of service 03/30: Atrial fibrillation is rate controlled. Remains intubated. Review of Systems Review of Systems: ROS unobtainable: Yes unobtainable due to endotracheal tube Exam Const: Other: Critically ill female, morbidly obese. Intubated, multiple drips. HENMT: Other: OETT in place Resp: Other: On mechanical ventilation Cardio: Rhythm: abnormal rhythm irregularly irregular Neuro: Other: Sedated Psych: Other: Sedated Objective Data Vital Signs Vital Signs: Vital Signs - 24 hr 03/29/24 10:16 03/29/24 10:33 03/29/24 11:00 Temperature Pulse Rate 102 H 100 111 H Respiratory Rate Blood Pressure 108/71 109/88 Pulse Oximetry 99 Oxygen Delivery Mechanical Ventilation Fraction of Inspired Oxygen 80 03/29/24 11:20 03/29/24 11:20 03/29/24 11:20 Temperature Pulse Rate 98 98 103 H Respiratory Rate Blood Pressure 113/76 113/76 113/76 Pulse Oximetry Oxygen Delivery Fraction of Inspired Oxygen 03/29/24 12:00 03/29/24 12:00 03/29/24 12:00 Temperature 38.1 C H Pulse Rate 110 H 101 H 101 H Respiratory Rate 20 20 Blood Pressure 101/79 Pulse Oximetry 99 Oxygen Delivery Fraction of Inspired Oxygen 03/29/24 12:00 03/29/24 12:00 03/29/24 12:00 Temperature Pulse Rate 101 H 101 H Respiratory Rate 20 Blood Pressure 101/79 Pulse Oximetry Oxygen Delivery Fraction of Inspired Oxygen 70 03/29/24 12:00 03/29/24 12:00 03/29/24 12:35 Temperature Pulse Rate 101 H 102 H Respiratory Rate Blood Pressure 101/79 97/67 L Pulse Oximetry Oxygen Delivery Mechanical Ventilation Fraction of Inspired Oxygen 70 03/29/24 12:35 03/29/24 12:42 03/29/24 12:42 Temperature Pulse Rate 102 H 92 92 Respiratory Rate 25 H 25 H Blood Pressure 97/67 L Pulse Oximetry Oxygen Delivery Fraction of Inspired Oxygen 03/29/24 12:45 03/29/24 12:48 03/29/24 13:15 Temperature Pulse Rate 91 83 90 Respiratory Rate 23 H Blood Pressure 112/78 117/77 Pulse Oximetry Oxygen Delivery Fraction of Inspired Oxygen 03/29/24 13:44 03/29/24 14:00 03/29/24 14:00 Temperature Pulse Rate 110 H 95 95 Respiratory Rate 20 Blood Pressure 104/75 Pulse Oximetry 99 Oxygen Delivery Mechanical Ventilation Fraction of Inspired Oxygen 70 03/29/24 14:00 03/29/24 14:00 03/29/24 14:00 Temperature 37.8 C H Pulse Rate 95 95 95 Respiratory Rate 20 Blood Pressure 104/75 104/75 Pulse Oximetry 99 Oxygen Delivery Fraction of Inspired Oxygen 03/29/24 14:00 03/29/24 14:24 03/29/24 14:24 Temperature Pulse Rate 95 91 92 Respiratory Rate 20 20 Blood Pressure 102/81 Pulse Oximetry Oxygen Delivery Fraction of Inspired Oxygen 03/29/24 15:55 03/29/24 16:00 03/29/24 16:00 Temperature Pulse Rate 89 87 87 Respiratory Rate 21 H Blood Pressure 109/79 108/69 Pulse Oximetry Oxygen Delivery Fraction of Inspired Oxygen 03/29/24 16:00 03/29/24 16:00 03/29/24 16:00 Temperature Pulse Rate 87 87 Respiratory Rate 21 H Blood Pressure 108/69 Pulse Oximetry Oxygen Delivery Mechanical Ventilation Fraction of Inspired Oxygen 70 03/29/24 16:00 03/29/24 16:00 03/29/24 16:00 Temperature 37.6 C H Pulse Rate 92 87 Respiratory Rate 21 H Blood Pressure 108/69 Pulse Oximetry 99 Oxygen Delivery Fraction of Inspired Oxygen 70 03/29/24 16:31 03/29/24 17:21 03/29/24 17:57 Temperature Pulse Rate 91 97 117 H Respiratory Rate 22 H Blood Pressure 105/70 132/79 Pulse Oximetry Oxygen Delivery Fraction of Inspired Oxygen 03/29/24 17:57 03/29/24 18:00 03/29/24 18:00 Temperature 37.5 C Pulse Rate 99 92 92 Respiratory Rate 22 H Blood Pressure 114/64 Pulse Oximetry 99 97 Oxygen Delivery Mechanical Ventilation Fraction of Inspired Oxygen 60 03/29/24 18:00 03/29/24 18:00 03/29/24 18:00 Temperature Pulse Rate 92 92 92 Respiratory Rate 22 H 22 H Blood Pressure 114/64 Pulse Oximetry Oxygen Delivery Fraction of Inspired Oxygen 03/29/24 18:00 03/29/24 18:14 03/29/24 19:42 Temperature Pulse Rate 92 96 91 Respiratory Rate Blood Pressure 114/64 114/64 Pulse Oximetry 98 Oxygen Delivery Mechanical Ventilation Fraction of Inspired Oxygen 60 03/29/24 20:00 03/29/24 20:00 03/29/24 20:00 Temperature Pulse Rate 91 87 Respiratory Rate 22 H Blood Pressure Pulse Oximetry 98 Oxygen Delivery Mechanical Ventilation Fraction of Inspired Oxygen 60 60 03/29/24 20:00 03/29/24 20:00 03/29/24 20:00 Temperature 37.3 C Pulse Rate 93 93 93 Respiratory Rate 21 H 21 H Blood Pressure 103/76 103/76 Pulse Oximetry 97 Oxygen Delivery Fraction of Inspired Oxygen 03/29/24 20:00 03/29/24 20:00 03/29/24 20:00 Temperature Pulse Rate 93 93 93 Respiratory Rate 21 H Blood Pressure 103/76 Pulse Oximetry Oxygen Delivery Fraction of Inspired Oxygen 03/29/24 21:00 03/29/24 22:00 03/29/24 22:00 Temperature Pulse Rate 95 95 96 Respiratory Rate 21 H Blood Pressure 108/80 110/72 Pulse Oximetry Oxygen Delivery Fraction of Inspired Oxygen 03/29/24 22:00 03/29/24 22:00 03/29/24 22:00 Temperature Pulse Rate 96 96 96 Respiratory Rate 21 H Blood Pressure Pulse Oximetry Oxygen Delivery Fraction of Inspired Oxygen 03/29/24 22:00 03/29/24 22:00 03/29/24 22:31 Temperature 37.2 C Pulse Rate 95 95 96 Respiratory Rate 21 H Blood Pressure 110/72 108/75 Pulse Oximetry 97 Oxygen Delivery Fraction of Inspired Oxygen 03/29/24 23:04 03/29/24 23:04 03/29/24 23:14 Temperature Pulse Rate 100 100 107 H Respiratory Rate Blood Pressure Pulse Oximetry 96 Oxygen Delivery Mechanical Ventilation Fraction of Inspired Oxygen 60 03/30/24 00:00 03/30/24 00:00 03/30/24 00:00 Temperature Pulse Rate 92 Respiratory Rate 21 H Blood Pressure Pulse Oximetry 96 Oxygen Delivery Mechanical Ventilation Fraction of Inspired Oxygen 60 60 03/30/24 00:00 03/30/24 00:00 03/30/24 00:00 Temperature 37.0 C Pulse Rate 92 96 96 Respiratory Rate 23 H 21 H Blood Pressure 107/72 Pulse Oximetry 96 Oxygen Delivery Fraction of Inspired Oxygen 03/30/24 00:00 03/30/24 00:00 03/30/24 01:00 Temperature Pulse Rate 96 96 100 Respiratory Rate 21 H Blood Pressure Pulse Oximetry Oxygen Delivery Fraction of Inspired Oxygen 03/30/24 01:45 03/30/24 02:00 03/30/24 02:00 Temperature Pulse Rate 97 95 95 Respiratory Rate 21 H Blood Pressure 104/70 106/70 Pulse Oximetry Oxygen Delivery Fraction of Inspired Oxygen 03/30/24 02:00 03/30/24 02:00 03/30/24 02:00 Temperature Pulse Rate 99 96 111 H Respiratory Rate 21 H Blood Pressure Pulse Oximetry Oxygen Delivery Fraction of Inspired Oxygen 03/30/24 02:00 03/30/24 02:30 03/30/24 02:33 Temperature 37.1 C Pulse Rate 105 H 102 H 103 H Respiratory Rate 21 H Blood Pressure 106/70 105/71 Pulse Oximetry 95 98 Oxygen Delivery Mechanical Ventilation Fraction of Inspired Oxygen 60 03/30/24 03:21 03/30/24 03:23 03/30/24 03:23 Temperature Pulse Rate 97 106 H 106 H Respiratory Rate 23 H 23 H Blood Pressure 113/65 Pulse Oximetry Oxygen Delivery Fraction of Inspired Oxygen 03/30/24 03:25 03/30/24 04:00 03/30/24 04:00 Temperature 36.7 C Pulse Rate 105 H 108 H 108 H Respiratory Rate 22 H Blood Pressure 113/65 96/57 L Pulse Oximetry 95 Oxygen Delivery Fraction of Inspired Oxygen 03/30/24 04:00 03/30/24 04:00 03/30/24 04:00 Temperature Pulse Rate 106 H 108 H 90 Respiratory Rate 22 H 22 H Blood Pressure Pulse Oximetry 94 Oxygen Delivery Mechanical Ventilation Fraction of Inspired Oxygen 60 03/30/24 04:00 03/30/24 05:15 03/30/24 05:30 Temperature Pulse Rate 113 H 111 H Respiratory Rate Blood Pressure 101/73 111/63 Pulse Oximetry Oxygen Delivery Fraction of Inspired Oxygen 60 03/30/24 05:30 03/30/24 05:30 03/30/24 05:45 Temperature Pulse Rate 97 98 105 H Respiratory Rate 22 H Blood Pressure Pulse Oximetry 96 Oxygen Delivery Mechanical Ventilation Fraction of Inspired Oxygen 60 03/30/24 06:00 03/30/24 06:00 03/30/24 06:00 Temperature 36.6 C Pulse Rate 90 90 90 Respiratory Rate 19 22 H Blood Pressure 93/64 L Pulse Oximetry 94 Oxygen Delivery Fraction of Inspired Oxygen 03/30/24 08:50 Temperature Pulse Rate 86 Respiratory Rate Blood Pressure Pulse Oximetry 97 Oxygen Delivery Mechanical Ventilation Fraction of Inspired Oxygen 60 Intake/Output Intake/Output: Intake & Output 03/27/24 03/28/24 03/29/24 03/30/24 23:59 23:59 23:59 23:59 Intake Total 1505.5 3420.3 2837.6 861.2 Output Total 450 1400 850 260 Balance 1055.5 2020.3 1987.6 601.2 Meds/Results Medications: Active Medications Generic Name Dose Route Start Last Admin Trade Name Freq PRN Reason Stop Dose Admin Acetaminophen 650 mg 03/27/24 14:41 03/29/24 05:11 Acetaminophen 325 Mg Tablet PO 650 mg Q4H PRN Administration Mild Pain (1-3) or Fever Apixaban 5 mg 03/27/24 12:35 03/30/24 08:36 Apixaban 5 Mg Tablet PO 5 mg Q12HR LAVER[facility] Administration Cyanocobalamin 1,000 mcg 03/27/24 17:00 03/30/24 08:36 Cyanocobalamin 1,000 Mcg Tablet PO 1,000 mcg BID LAVERNE Administration Dextrose 12.5 gm 03/27/24 08:57 Dextrose 50% 25 Gm/50 Ml Syringe IV PUSH PRN PRN Hypoglycemia Protocol Glucagon 1 mg 03/27/24 08:57 Glucagon For Inj 1 Mg Vial IM PRN PRN Hypoglycemia Protocol Glucose 15 gm 03/27/24 08:57 Glucose Oral Gel 15 Gm Of Glucse In 37.5 Gm Tube PO PRN PRN Hypoglycemia Protocol Hydrocortisone Sodium Succinate 50 mg 03/28/24 16:00 03/30/24 08:37 Hydrocortisone Sodium Succinate 100 Mg/2 Ml Vial IV PUSH 50 mg Q6H [facility] Administration Azithromycin 500 mg in 250 mls @ 250 mls/hr 03/28/24 06:00 03/30/24 06:11 Zithromax IVPB 250 mls/hr Q24H [facility] Administration Dextrose 1,000 mls @ 100 mls/hr 03/27/24 08:57 Dextrose 5% 1,000 Ml IVPB PRN PRN Hypoglycemia Protocol Fentanyl Citrate 2,500 mcg in 250 mls @ 5 mls/hr 03/28/24 15:45 03/30/24 05:30 Fentanyl 2,500 Mcg/Ns 250 Ml IV CONT 50 mcg/hr .Q50H [facility] 5 mls/hr Titration Protocol 50 MCG/HR Vasopressin 100 units/ 100 mls @ 1.2 mls/hr 03/28/24 19:30 03/30/24 05:30 Dextrose IV CONT 0.02 units/min .Q72H [facility] 1.2 mls/hr Titration Protocol 0.02 UNITS/MIN Midazolam HCl 100 mg in 100 mls @ 3 mls/hr 03/28/24 19:30 03/30/24 06:00 Versed 100 Mg/Ns 100 Ml IV CONT 3 mg/hr .[id number] [facility] 3 mls/hr Titration Protocol 3 MG/HR Amiodarone HCl/Dextrose 360 mg in 200 mls @ 16.667 mls/hr 03/28/24 23:15 03/30/24 05:30 Nexterone 360 Mg/D5w 200 Ml IV CONT 0.5 mg/min .Q12H [facility] 16.67 mls/hr Infusion 0.5 MG/MIN Cefepime HCl 2 gm in 50 mls @ 100 mls/hr 03/30/24 18:00 Maxipime 2 Gm/Ns 50 Ml IVPB Q12H [facility] Albumin Human 25 gm in 500 mls @ 125 mls/hr 03/30/24 08:00 03/30/24 08:43 Albumin Human 5% IV CONT 03/30/24 11:59 125 mls/hr .Q4H ONE Administration Insulin Aspart 4 - 8 units 03/29/24 13:00 03/30/24 08:36 Insulin Aspart (*Bkc) 100 Units/Ml SUB-Q 6 units Q4HR [facility] Administration Protocol Insulin Glargine 35 units 03/30/24 09:00 03/30/24 08:37 Insulin Glargine (*Bkc) 100 Units/Ml SUB-Q 35 units QAM [facility] Administration Multi-Ingred Cream/Lotion/Oil/Oint 1 applic 03/28/24 21:00 03/30/24 08:37 Mineral Oil/White Petrolatum Ointment EACH EYE 1 applic Q12HR [facility] Administration Pantoprazole Sodium 40 mg 03/29/24 09:00 03/30/24 08:37 Pantoprazole Sodium Iv 40 Mg Vial IV PUSH 40 mg DAILY [facility] Administration Perflutren Lipid Microsphere 0 ml 03/28/24 09:26 Perflutren Lipid Microspheres 1.5 Ml Vial Diluted To 10 Ml Total Volume IV PUSH 03/31/24 09:26 ONCE PRN adequate visualization Protocol Rosuvastatin Calcium 20 mg 03/28/24 09:00 03/30/24 08:37 Rosuvastatin 20 Mg Tablet PO 20 mg DAILY [facility] Administration Sodium Chloride 10 ml 03/28/24 22:00 03/30/24 06:12 Central Line Flush IV PUSH 10 ml Q8HR [facility] Administration Sodium Chloride 10 ml 03/28/24 16:14 Central Line Flush IV PUSH PRN PRN with TPN bag changes Sodium Chloride 20 ml 03/28/24 16:14 Central Line Flush IV PUSH PRN PRN after blood draws Vancomycin HCl 1 each 03/30/24 07:30 Vancomycin For Acute Kidney Injury IVPB PRN PRN Vancomycin Protocol Radiology Results: ITS Impressions Chest CTA 03/27/24 06:41 Impression: No evidence of pulmonary embolus, aortic dissection, or aortic aneurysm. Extensive right lower lobe pneumonia. Probable mildly prominent reactive lymphadenopathy the right axilla and subcarinal region. Head CT 03/28/24 22:59 IMPRESSION: 1. Normal brain. Abdomen X-Ray 03/29/24 08:59 IMPRESSION: 1. Lines and tubes in expected positions. 2. Diffuse bilateral lung disease, right greater than left, consistent with multifocal pneumonia. Chest X-Ray 03/30/24 06:06 Impression: 1: Stable bilateral airspace disease which may represent edema or pneumonia. Labs Labs: Laboratory Results - last 24 hr 03/29/24 03/29/24 03/29/24 11:39 16:22 18:11 WBC RBC Hgb Hct MCV MCH MCHC RDW Plt Count MPV Immature Gran % (Auto) Neut % (Auto) Lymph % (Auto) [place] % (Auto) Eos % (Auto) Baso % (Auto) Lymph # (Auto) [place] # (Auto) Eos # (Auto) Baso # (Auto) Abs Immat Gran (auto) Absolute Neuts (auto) Absolute Nucleated RBC Nucleated RBC % Platelet Estimate Anisocytosis Ovalocytes Kathy Cells Schistocytes Puncture Site ABG pH ABG pCO2 ABG pO2 ABG PO2/FiO2 Ratio ABG HCO3 ABG O2 Saturation ABG O2 Content ABG Base Excess A-a Gradient Oxyhemoglobin Carboxyhemoglobin Methemoglobin Reduced Hemoglobin Total Hemoglobin O2 Delivery Device O2 Liters/Min Minute Volume Vent Rate Vent Mode FiO2 Tidal Volume PEEP Peak Inspir Pressure Pressure Support Sodium Potassium Chloride Carbon Dioxide Anion Gap BUN Creatinine Estim Creat Clear Calc Estimated GFR Glucose POC Capillary Glucose 247 H 263 H Calcium Magnesium Total Bilirubin AST ALT Alkaline Phosphatase Total Creatine Kinase Total Protein Albumin Vancomycin Trough 18.4 03/29/24 03/30/24 03/30/24 22:25 02:11 04:43 WBC RBC Hgb Hct MCV MCH MCHC RDW Plt Count MPV Immature Gran % (Auto) Neut % (Auto) Lymph % (Auto) [place] % (Auto) Eos % (Auto) Baso % (Auto) Lymph # (Auto) [place] # (Auto) Eos # (Auto) Baso # (Auto) Abs Immat Gran (auto) Absolute Neuts (auto) Absolute Nucleated RBC Nucleated RBC % Platelet Estimate Anisocytosis Ovalocytes Kathy Cells Schistocytes Puncture Site Right radial ABG pH 7.328 L ABG pCO2 57.7 H ABG pO2 98.5 ABG PO2/FiO2 Ratio 1.64 ABG HCO3 29.6 H ABG O2 Saturation 96.9 ABG O2 Content 17.1 ABG Base Excess 2.4 A-a Gradient 265.8 Oxyhemoglobin 96.6 Carboxyhemoglobin 0.5 Methemoglobin 0.3 Reduced Hemoglobin 2.6 Total Hemoglobin 12.5 O2 Delivery Device Ventilator O2 Liters/Min Not Reportable Minute Volume Not Reportable Vent Rate 23 Vent Mode Cmv FiO2 60 Tidal Volume 400 PEEP 12 Peak Inspir Pressure Not Reportable Pressure Support Not Reportable Sodium Potassium Chloride Carbon Dioxide Anion Gap BUN Creatinine Estim Creat Clear Calc Estimated GFR Glucose POC Capillary Glucose 318 H 301 H Calcium Magnesium Total Bilirubin AST ALT Alkaline Phosphatase Total Creatine Kinase Total Protein Albumin Vancomycin Trough 03/30/24 03/30/24 03/30/24 06:09 06:19 08:34 WBC 8.6 RBC 3.54 L Hgb 10.5 L Hct 33.7 L MCV 95.2 MCH 29.7 MCHC 31.2 L RDW 15.7 H Plt Count 163 MPV 10.6 H Immature Gran % (Auto) 0.6 H Neut % (Auto) 95.2 H Lymph % (Auto) 1.4 L [place] % (Auto) 2.0 L Eos % (Auto) 0.0 Baso % (Auto) 0.8 Lymph # (Auto) 0.12 L [place] # (Auto) 0.2 Eos # (Auto) 0.0 Baso # (Auto) 0.1 Abs Immat Gran (auto) 0.05 H Absolute Neuts (auto) 8.2 H Absolute Nucleated RBC 0.000 Nucleated RBC % 0.0 Platelet Estimate Adequate Anisocytosis 1+ Ovalocytes 1+ Kathy Cells 2+ Schistocytes None seen Puncture Site ABG pH ABG pCO2 ABG pO2 ABG PO2/FiO2 Ratio ABG HCO3 ABG O2 Saturation ABG O2 Content ABG Base Excess A-a Gradient Oxyhemoglobin Carboxyhemoglobin Methemoglobin Reduced Hemoglobin Total Hemoglobin O2 Delivery Device O2 Liters/Min Minute Volume Vent Rate Vent Mode FiO2 Tidal Volume PEEP Peak Inspir Pressure Pressure Support Sodium 135 L Potassium 3.7 Chloride 97 L Carbon Dioxide 30 Anion Gap 8 BUN 41 H D Creatinine 1.70 H Estim Creat Clear Calc 45 Estimated GFR 30 L Glucose 272 H POC Capillary Glucose 255 H 319 H Calcium 8.4 Magnesium 2.2 Total Bilirubin 0.8 AST 100 H ALT 132 H Alkaline Phosphatase 79 Total Creatine Kinase 73 Total Protein 6.0 L Albumin 3.1 L Vancomycin Trough
[2024-03-30] MEDS: AMIODARONE 360 MG/D5W 200 ML 360 MG/200 ML BAG 16.67 MG IV CONT ×2 (10:46→22:32)
--- NOTE | 2024-03-30 11:03 | PCFNICU ---
ICU Rounding Note: Pt current nutrition is Vital AF 1.2 at 40 ml/hr. Nutrition recommendation: goal rate 60 ml/hr. Last recorded weight is 153 kg, up from 148.9 kg on admit. Bowel Motility: +BM reported 03/26 Labs Reviewed: Glu 272, BUN 41, NA 135, Hct 33.7, Hgb 10.5 Meds Noted: Lantus, Vasopressin, Fentanyl, Versed Skin: WNL Additional Notes: Patient remains on mechanical vent. Tube feedings are being tolerated of Vital AF 1.2 at 40 ml/hr. Spoke with [facility] today regarding tube feedings rate. Recommend increasing to goal rate of 60 ml/hr. Total Nutrition: 1584 kcal/99 gm protein/1071 ml water. Flush 30 ml q 4 hours. Agree with diet orders. Following daily in ICU rounds. Will monitor weight, labs, skin, diet orders, meds, tube feeding tolerance every Thursday and Thursday.
[2024-03-30 11:31] LABS: Glucose Point of Care 308 mg/dl (65-105)
[2024-03-30 12:10] LABS: Sodium Urine Random < 5 meq/L
--- NOTE | 2024-03-30 12:54 | P.PNIM_ITS ---
Progress Note: A&P Assessment and Plan (1) Acute hypoxic respiratory failure: Code(s): J96.01 - Acute respiratory failure with hypoxia Status: Acute Assessment and Plan: Acute hypoxic respiratory failure secondary to pneumonia and possible CHF CTA chest (03/27) showing no evidence of PE, aortic dissection, or aortic aneurysm but with extensive right lower lobe pneumonia. Probable mildly prominent reactive lymphadenopathy in the right axilla and subcarinal region. Patient now emergently intubated 03/28 Continue Versed and fentanyl for sedation CXR showing bilateral airspace disease. ABG 7.33/58/98 on 60% FiO2, PEEP 12. Wean settings as tolerated (2) Septic shock: Code(s): A41.9 - Sepsis, unspecified organism; R65.21 - Severe sepsis with septic shock Status: Acute Assessment and Plan: Sepsis secondary to community-acquired pneumonia Blood cultures NGTD Sputum culture pending Urine Legionella and pneumococcal antigen pending Started on vancomycin, cefepime, azithromycin. PCT 4.4. MRSA nasal swab negative. RSV positive. COVID and influenza PCR negative. Continue vasopressin infusion. She has been weaned off Levophed Hydrocortisone for severe pneumonia and shock She receive 25% albumin Hold further crystalloids Monitor BP closely (3) Community acquired pneumonia: Code(s): J18.9 - Pneumonia, unspecified organism Status: Acute Assessment and Plan: As above (4) Atrial fibrillation with RVR: Code(s): I48.91 - Unspecified atrial fibrillation Status: Acute Assessment and Plan: For atrial fibrillation with RVR, patient was given IV metoprolol and IV Cardizem with no response. She was transferred to IMU and a Cardizem drip was started with little response on heart rates. She continued to have heart rates in the 120s to 140s range. Cardizem was stopped and amiodarone was given as a bolus and a drip was started. Echo was very technically difficult study with limited views, LV EF 50-55%. TSH was normal Atrial fibrillation is rate controlled. Patient is anticoagulated with Eliquis Continue amiodarone infusion ordered by Cardiology (5) Diabetes: Code(s): E11.9 - Type 2 diabetes mellitus without complications Status: Acute Assessment and Plan: The patient's blood glucose was reviewed on 03/30 Glucose remains poorly controlled. Continue AccuCheks covering with sliding scale. Hypoglycemia protocol available as needed. Continue to monitors. Ryan advacned (6) Altered mental status: Code(s): R41.82 - Altered mental status, unspecified Status: Acute Assessment and Plan: Likely secondary to hypoxic. Patient had CT scan of the head recently done which was unremarkable Repeat head CT on 03/28 was again on remark Ammonia and TSH normal (7) VINCENT (acute kidney injury): Code(s): N17.9 - Acute kidney failure, unspecified Status: Acute Assessment and Plan: Increase in creatinine and drop in urine output likely secondary to shock Patient is overall volume overloaded Albumin bolus given Cr worse today at 1.7. Hold diuretics and maintain mean arterial pressure with vasopressors Plan DVT prophylaxis -Eliquis Code Status - Full Code Subjective Date/time seen: 03/30/24 12:54 Interval history: 68yo female with AFib s/p SHAYY cardioversion that was unsuccessful, KAREN not using CPAP, DM, HTN and endometrial cancer who presents with shortness of breath, leg swelling and weight gain over the past few weeks. Assuming care. Chart reviewed. Patient is intubated and sedated. No issues per RN. Review of Systems Review of Systems: ROS unobtainable: Yes unobtainable due to endotracheal tube Exam Narrative: Tm 100.6 98.2 102/74 88 25 97% MV Gen - intubated and sedated HEETN - ETT and OGT secured. Chest - left flank inspiratory crackles o/w distant CV - irregularly irregular. Tele showing AFib with controlled rate. Abd - Soft, obese - Can secured draining cloudy yellow urine Ext - trace pedal edema Neuro - sedated Skin - Warm and dry Objective Data Vital Signs Vital Signs: Vital Signs - 24 hr 03/29/24 13:15 03/29/24 13:44 03/29/24 14:00 Temperature Pulse Rate 90 110 H 95 Respiratory Rate 20 Blood Pressure 117/77 Pulse Oximetry 99 Oxygen Delivery Mechanical Ventilation Fraction of Inspired Oxygen 70 03/29/24 14:00 03/29/24 14:00 03/29/24 14:00 Temperature 100.1 F H Pulse Rate 95 95 95 Respiratory Rate 20 Blood Pressure 104/75 104/75 104/75 Pulse Oximetry 99 Oxygen Delivery Fraction of Inspired Oxygen 03/29/24 14:00 03/29/24 14:00 03/29/24 14:24 Temperature Pulse Rate 95 95 91 Respiratory Rate 20 20 Blood Pressure Pulse Oximetry Oxygen Delivery Fraction of Inspired Oxygen 03/29/24 14:24 03/29/24 15:55 03/29/24 16:00 Temperature Pulse Rate 92 89 87 Respiratory Rate 21 H Blood Pressure 102/81 109/79 Pulse Oximetry Oxygen Delivery Fraction of Inspired Oxygen 03/29/24 16:00 03/29/24 16:00 03/29/24 16:00 Temperature Pulse Rate 87 87 87 Respiratory Rate 21 H Blood Pressure 108/69 108/69 Pulse Oximetry Oxygen Delivery Fraction of Inspired Oxygen 03/29/24 16:00 03/29/24 16:00 03/29/24 16:00 Temperature 99.7 F H Pulse Rate 92 87 Respiratory Rate 21 H Blood Pressure 108/69 Pulse Oximetry 99 Oxygen Delivery Mechanical Ventilation Fraction of Inspired Oxygen 70 03/29/24 16:00 03/29/24 16:31 03/29/24 17:21 Temperature Pulse Rate 91 97 Respiratory Rate 22 H Blood Pressure 105/70 Pulse Oximetry Oxygen Delivery Fraction of Inspired Oxygen 70 03/29/24 17:57 03/29/24 17:57 03/29/24 18:00 Temperature Pulse Rate 117 H 99 92 Respiratory Rate Blood Pressure 132/79 Pulse Oximetry 99 Oxygen Delivery Mechanical Ventilation Fraction of Inspired Oxygen 60 03/29/24 18:00 03/29/24 18:00 03/29/24 18:00 Temperature 99.5 F Pulse Rate 92 92 92 Respiratory Rate 22 H 22 H Blood Pressure 114/64 114/64 Pulse Oximetry 97 Oxygen Delivery Fraction of Inspired Oxygen 03/29/24 18:00 03/29/24 18:00 03/29/24 18:14 Temperature Pulse Rate 92 92 96 Respiratory Rate 22 H Blood Pressure 114/64 114/64 Pulse Oximetry Oxygen Delivery Fraction of Inspired Oxygen 03/29/24 19:42 03/29/24 20:00 03/29/24 20:00 Temperature Pulse Rate 91 91 Respiratory Rate 22 H Blood Pressure Pulse Oximetry 98 98 Oxygen Delivery Mechanical Ventilation Mechanical Ventilation Fraction of Inspired Oxygen 60 60 60 03/29/24 20:00 03/29/24 20:00 03/29/24 20:00 Temperature 99.2 F Pulse Rate 87 93 93 Respiratory Rate 21 H Blood Pressure 103/76 103/76 Pulse Oximetry 97 Oxygen Delivery Fraction of Inspired Oxygen 03/29/24 20:00 03/29/24 20:00 03/29/24 20:00 Temperature Pulse Rate 93 93 93 Respiratory Rate 21 H Blood Pressure 103/76 Pulse Oximetry Oxygen Delivery Fraction of Inspired Oxygen 03/29/24 20:00 03/29/24 21:00 03/29/24 22:00 Temperature Pulse Rate 93 95 95 Respiratory Rate 21 H Blood Pressure 108/80 110/72 Pulse Oximetry Oxygen Delivery Fraction of Inspired Oxygen 03/29/24 22:00 03/29/24 22:00 03/29/24 22:00 Temperature Pulse Rate 96 96 96 Respiratory Rate 21 H Blood Pressure Pulse Oximetry Oxygen Delivery Fraction of Inspired Oxygen 03/29/24 22:00 03/29/24 22:00 03/29/24 22:00 Temperature 98.9 F Pulse Rate 96 95 95 Respiratory Rate 21 H 21 H Blood Pressure 110/72 Pulse Oximetry 97 Oxygen Delivery Fraction of Inspired Oxygen 03/29/24 22:31 03/29/24 23:04 03/29/24 23:04 Temperature Pulse Rate 96 100 100 Respiratory Rate Blood Pressure 108/75 Pulse Oximetry Oxygen Delivery Fraction of Inspired Oxygen 03/29/24 23:14 03/30/24 00:00 03/30/24 00:00 Temperature Pulse Rate 107 H Respiratory Rate 21 H Blood Pressure Pulse Oximetry 96 96 Oxygen Delivery Mechanical Ventilation Mechanical Ventilation Fraction of Inspired Oxygen 60 60 60 03/30/24 00:00 03/30/24 00:00 03/30/24 00:00 Temperature 98.6 F Pulse Rate 92 92 96 Respiratory Rate 23 H Blood Pressure 107/72 Pulse Oximetry 96 Oxygen Delivery Fraction of Inspired Oxygen 03/30/24 00:00 03/30/24 00:00 03/30/24 00:00 Temperature Pulse Rate 96 96 96 Respiratory Rate 21 H 21 H Blood Pressure Pulse Oximetry Oxygen Delivery Fraction of Inspired Oxygen 03/30/24 01:00 03/30/24 01:45 03/30/24 02:00 Temperature Pulse Rate 100 97 95 Respiratory Rate Blood Pressure 104/70 106/70 Pulse Oximetry Oxygen Delivery Fraction of Inspired Oxygen 03/30/24 02:00 03/30/24 02:00 03/30/24 02:00 Temperature Pulse Rate 95 99 96 Respiratory Rate 21 H 21 H Blood Pressure Pulse Oximetry Oxygen Delivery Fraction of Inspired Oxygen 03/30/24 02:00 03/30/24 02:00 03/30/24 02:30 Temperature 98.7 F Pulse Rate 111 H 105 H 102 H Respiratory Rate 21 H Blood Pressure 106/70 105/71 Pulse Oximetry 95 Oxygen Delivery Fraction of Inspired Oxygen 03/30/24 02:33 03/30/24 03:21 03/30/24 03:23 Temperature Pulse Rate 103 H 97 106 H Respiratory Rate 23 H Blood Pressure 113/65 Pulse Oximetry 98 Oxygen Delivery Mechanical Ventilation Fraction of Inspired Oxygen 60 03/30/24 03:23 03/30/24 03:25 03/30/24 04:00 Temperature Pulse Rate 106 H 105 H 108 H Respiratory Rate 23 H Blood Pressure 113/65 Pulse Oximetry Oxygen Delivery Fraction of Inspired Oxygen 03/30/24 04:00 03/30/24 04:00 03/30/24 04:00 Temperature 98.1 F Pulse Rate 108 H 106 H 108 H Respiratory Rate 22 H 22 H Blood Pressure 96/57 L Pulse Oximetry 95 Oxygen Delivery Fraction of Inspired Oxygen 03/30/24 04:00 03/30/24 04:00 03/30/24 05:15 Temperature Pulse Rate 90 113 H Respiratory Rate 22 H Blood Pressure 101/73 Pulse Oximetry 94 Oxygen Delivery Mechanical Ventilation Fraction of Inspired Oxygen 60 60 03/30/24 05:30 03/30/24 05:30 03/30/24 05:30 Temperature Pulse Rate 111 H 97 98 Respiratory Rate 22 H Blood Pressure 111/63 Pulse Oximetry Oxygen Delivery Fraction of Inspired Oxygen 03/30/24 05:45 03/30/24 06:00 03/30/24 06:00 Temperature 97.9 F Pulse Rate 105 H 90 90 Respiratory Rate 19 Blood Pressure 93/64 L Pulse Oximetry 96 94 Oxygen Delivery Mechanical Ventilation Fraction of Inspired Oxygen 60 03/30/24 06:00 03/30/24 08:00 03/30/24 08:00 Temperature Pulse Rate 90 99 99 Respiratory Rate 22 H 25 H Blood Pressure 97/69 L Pulse Oximetry Oxygen Delivery Fraction of Inspired Oxygen 03/30/24 08:00 03/30/24 08:00 03/30/24 08:00 Temperature Pulse Rate 99 99 99 Respiratory Rate 25 H 25 H Blood Pressure Pulse Oximetry 99 Oxygen Delivery Mechanical Ventilation Fraction of Inspired Oxygen 60 03/30/24 08:00 03/30/24 08:00 03/30/24 08:50 Temperature 98.3 F Pulse Rate 99 86 Respiratory Rate 25 H Blood Pressure 97/69 L Pulse Oximetry 97 97 Oxygen Delivery Mechanical Ventilation Fraction of Inspired Oxygen 60 60 03/30/24 10:00 03/30/24 10:00 03/30/24 10:00 Temperature 98.3 F Pulse Rate 99 87 99 Respiratory Rate 25 H 25 H Blood Pressure 97/70 L Pulse Oximetry 97 Oxygen Delivery Fraction of Inspired Oxygen 03/30/24 10:00 03/30/24 10:46 03/30/24 10:46 Temperature Pulse Rate 99 89 89 Respiratory Rate Blood Pressure 94/70 L 95/67 L 95/67 L Pulse Oximetry Oxygen Delivery Fraction of Inspired Oxygen 03/30/24 11:46 03/30/24 12:00 Temperature 98.2 F Pulse Rate 83 88 Respiratory Rate 25 H Blood Pressure 102/74 Pulse Oximetry 98 97 Oxygen Delivery Mechanical Ventilation Fraction of Inspired Oxygen 60 Intake/Output Intake/Output: Intake & Output 03/27/24 03/28/24 03/29/24 03/30/24 23:59 23:59 23:59 23:59 Intake Total 1505.5 3420.3 2837.6 978.9 Output Total 450 1400 850 260 Balance 1055.5 2020.3 1987.6 718.9 Meds/Results Medications: Active Medications Generic Name Dose Route Start Last Admin Trade Name Freq PRN Reason Stop Dose Admin Acetaminophen 650 mg 03/27/24 14:41 03/29/24 05:11 Acetaminophen 325 Mg Tablet PO 650 mg Q4H PRN Administration Mild Pain (1-3) or Fever Apixaban 5 mg 03/27/24 12:35 03/30/24 08:36 Apixaban 5 Mg Tablet PO 5 mg Q12HR LAVERNE Administration Cyanocobalamin 1,000 mcg 03/27/24 17:00 03/30/24 08:36 Cyanocobalamin 1,000 Mcg Tablet PO 1,000 mcg BID LAVERNE Administration Dextrose 12.5 gm 03/27/24 08:57 Dextrose 50% 25 Gm/50 Ml Syringe IV PUSH PRN PRN Hypoglycemia Protocol Glucagon 1 mg 03/27/24 08:57 Glucagon For Inj 1 Mg Vial IM PRN PRN Hypoglycemia Protocol Glucose 15 gm 03/27/24 08:57 Glucose Oral Gel 15 Gm Of Glucse In 37.5 Gm Tube PO PRN PRN Hypoglycemia Protocol Hydrocortisone Sodium Succinate 50 mg 03/28/24 16:00 03/30/24 08:37 Hydrocortisone Sodium Succinate 100 Mg/2 Ml Vial IV PUSH 50 mg Q6H LAVERNE Administration Azithromycin 500 mg in 250 mls @ 250 mls/hr 03/28/24 06:00 03/30/24 06:11 Zithromax IVPB 03/31/24 23:59 250 mls/hr Q24H LAVERNE Administration Dextrose 1,000 mls @ 100 mls/hr 03/27/24 08:57 Dextrose 5% 1,000 Ml IVPB PRN PRN Hypoglycemia Protocol Fentanyl Citrate 2,500 mcg in 250 mls @ 5 mls/hr 03/28/24 15:45 03/30/24 08:00 Fentanyl 2,500 Mcg/Ns 250 Ml IV CONT 50 mcg/hr .Q50H LAVERNE 5 mls/hr Titration Protocol 50 MCG/HR Vasopressin 100 units/ 100 mls @ 1.2 mls/hr 03/28/24 19:30 03/30/24 10:00 Dextrose IV CONT 0.02 units/min .Q72H LAVERNE 1.2 mls/hr Titration Protocol 0.02 UNITS/MIN Midazolam HCl 100 mg in 100 mls @ 3 mls/hr 03/28/24 19:30 03/30/24 10:00 Versed 100 Mg/Ns 100 Ml IV CONT 3 mg/hr .[id number] LAVERNE 3 mls/hr Titration Protocol 3 MG/HR Amiodarone HCl/Dextrose 360 mg in 200 mls @ 16.667 mls/hr 03/28/24 23:15 03/30/24 10:46 Nexterone 360 Mg/D5w 200 Ml IV CONT 0.5 mg/min .Q12H LAVERNE 16.67 mls/hr Administration 0.5 MG/MIN Cefepime HCl 2 gm in 50 mls @ 100 mls/hr 03/30/24 18:00 Maxipime 2 Gm/Ns 50 Ml IVPB 04/02/24 23:59 Q12H LAVERNE Insulin Aspart 4 - 8 units 03/29/24 13:00 03/30/24 12:40 Insulin Aspart (*Bkc) 100 Units/Ml SUB-Q 6 units Q4HR LAVERNE Administration Protocol Insulin Glargine 35 units 03/30/24 09:00 03/30/24 08:37 Insulin Glargine (*Bkc) 100 Units/Ml SUB-Q 35 units QAM LAVERNE Administration Multi-Ingred Cream/Lotion/Oil/Oint 1 applic 03/28/24 21:00 03/30/24 08:37 Mineral Oil/White Petrolatum Ointment EACH EYE 1 applic Q12HR LAVERNE Administration Pantoprazole Sodium 40 mg 03/29/24 09:00 03/30/24 08:37 Pantoprazole Sodium Iv 40 Mg Vial IV PUSH 40 mg DAILY LAVERNE Administration Perflutren Lipid Microsphere 0 ml 03/28/24 09:26 Perflutren Lipid Microspheres 1.5 Ml Vial Diluted To 10 Ml Total Volume IV PUSH 03/31/24 09:26 ONCE PRN adequate visualization Protocol Rosuvastatin Calcium 20 mg 03/28/24 09:00 03/30/24 08:37 Rosuvastatin 20 Mg Tablet PO 20 mg DAILY LAVERNE Administration Sodium Chloride 10 ml 03/28/24 22:00 03/30/24 06:12 Central Line Flush IV PUSH 10 ml Q8HR LAVERNE Administration Sodium Chloride 10 ml 03/28/24 16:14 Central Line Flush IV PUSH PRN PRN with TPN bag changes Sodium Chloride 20 ml 03/28/24 16:14 Central Line Flush IV PUSH PRN PRN after blood draws Vancomycin HCl 1 each 03/30/24 07:30 Vancomycin For Acute Kidney Injury IVPB PRN PRN Vancomycin Protocol Radiology Results: ITS Impressions Chest CTA 03/27/24 06:41 Impression: No evidence of pulmonary embolus, aortic dissection, or aortic aneurysm. Extensive right lower lobe pneumonia. Probable mildly prominent reactive lymphadenopathy the right axilla and subcarinal region. Head CT 03/28/24 22:59 IMPRESSION: 1. Normal brain. Abdomen X-Ray 03/29/24 08:59 IMPRESSION: 1. Lines and tubes in expected positions. 2. Diffuse bilateral lung disease, right greater than left, consistent with multifocal pneumonia. Chest X-Ray 03/30/24 06:06 Impression: 1: Stable bilateral airspace disease which may represent edema or pneumonia. Labs Labs: Laboratory Results - last 24 hr 03/29/24 03/29/24 03/29/24 16:22 18:11 22:25 WBC RBC Hgb Hct MCV MCH MCHC RDW Plt Count MPV Immature Gran % (Auto) Neut % (Auto) Lymph % (Auto) [place] % (Auto) Eos % (Auto) Baso % (Auto) Lymph # (Auto) [place] # (Auto) Eos # (Auto) Baso # (Auto) Abs Immat Gran (auto) Absolute Neuts (auto) Absolute Nucleated RBC Nucleated RBC % Platelet Estimate Anisocytosis Ovalocytes [place] Cells Schistocytes Puncture Site ABG pH ABG pCO2 ABG pO2 ABG PO2/FiO2 Ratio ABG HCO3 ABG O2 Saturation ABG O2 Content ABG Base Excess A-a Gradient Oxyhemoglobin Carboxyhemoglobin Methemoglobin Reduced Hemoglobin Total Hemoglobin O2 Delivery Device O2 Liters/Min Minute Volume Vent Rate Vent Mode FiO2 Tidal Volume PEEP Peak Inspir Pressure Pressure Support Sodium Potassium Chloride Carbon Dioxide Anion Gap BUN Creatinine Estim Creat Clear Calc Estimated GFR Glucose POC Capillary Glucose 263 H 318 H Calcium Magnesium Total Bilirubin AST ALT Alkaline Phosphatase Total Creatine Kinase Total Protein Albumin Ur Random Sodium Urine Creatinine Vancomycin Trough 18.4 03/30/24 03/30/24 03/30/24 02:11 04:43 06:09 WBC RBC Hgb Hct MCV MCH MCHC RDW Plt Count MPV Immature Gran % (Auto) Neut % (Auto) Lymph % (Auto) [place] % (Auto) Eos % (Auto) Baso % (Auto) Lymph # (Auto) [place] # (Auto) Eos # (Auto) Baso # (Auto) Abs Immat Gran (auto) Absolute Neuts (auto) Absolute Nucleated RBC Nucleated RBC % Platelet Estimate Anisocytosis Ovalocytes [place] Cells Schistocytes Puncture Site Right radial ABG pH 7.328 L ABG pCO2 57.7 H ABG pO2 98.5 ABG PO2/FiO2 Ratio 1.64 ABG HCO3 29.6 H ABG O2 Saturation 96.9 ABG O2 Content 17.1 ABG Base Excess 2.4 A-a Gradient 265.8 Oxyhemoglobin 96.6 Carboxyhemoglobin 0.5 Methemoglobin 0.3 Reduced Hemoglobin 2.6 Total Hemoglobin 12.5 O2 Delivery Device Ventilator O2 Liters/Min Not Reportable Minute Volume Not Reportable Vent Rate 23 Vent Mode Cmv FiO2 60 Tidal Volume 400 PEEP 12 Peak Inspir Pressure Not Reportable Pressure Support Not Reportable Sodium Potassium Chloride Carbon Dioxide Anion Gap BUN Creatinine Estim Creat Clear Calc Estimated GFR Glucose POC Capillary Glucose 301 H 255 H Calcium Magnesium Total Bilirubin AST ALT Alkaline Phosphatase Total Creatine Kinase Total Protein Albumin Ur Random Sodium Urine Creatinine Vancomycin Trough 03/30/24 03/30/24 03/30/24 06:19 08:34 10:54 WBC 8.6 RBC 3.54 L Hgb 10.5 L Hct 33.7 L MCV 95.2 MCH 29.7 MCHC 31.2 L RDW 15.7 H Plt Count 163 MPV 10.6 H Immature Gran % (Auto) 0.6 H Neut % (Auto) 95.2 H Lymph % (Auto) 1.4 L [place] % (Auto) 2.0 L Eos % (Auto) 0.0 Baso % (Auto) 0.8 Lymph # (Auto) 0.12 L [place] # (Auto) 0.2 Eos # (Auto) 0.0 Baso # (Auto) 0.1 Abs Immat Gran (auto) 0.05 H Absolute Neuts (auto) 8.2 H Absolute Nucleated RBC 0.000 Nucleated RBC % 0.0 Platelet Estimate Adequate Anisocytosis 1+ Ovalocytes 1+ [place] Cells 2+ Schistocytes None seen Puncture Site ABG pH ABG pCO2 ABG pO2 ABG PO2/FiO2 Ratio ABG HCO3 ABG O2 Saturation ABG O2 Content ABG Base Excess A-a Gradient Oxyhemoglobin Carboxyhemoglobin Methemoglobin Reduced Hemoglobin Total Hemoglobin O2 Delivery Device O2 Liters/Min Minute Volume Vent Rate Vent Mode FiO2 Tidal Volume PEEP Peak Inspir Pressure Pressure Support Sodium 135 L Potassium 3.7 Chloride 97 L Carbon Dioxide 30 Anion Gap 8 BUN 41 H D Creatinine 1.70 H Estim Creat Clear Calc 45 Estimated GFR 30 L Glucose 272 H POC Capillary Glucose 319 H Calcium 8.4 Magnesium 2.2 Total Bilirubin 0.8 AST 100 H ALT 132 H Alkaline Phosphatase 79 Total Creatine Kinase 73 Total Protein 6.0 L Albumin 3.1 L Ur Random Sodium < 5 Urine Creatinine 186.0 Vancomycin Trough 03/30/24 11:28 WBC RBC Hgb Hct MCV MCH MCHC RDW Plt Count MPV Immature Gran % (Auto) Neut % (Auto) Lymph % (Auto) [place] % (Auto) Eos % (Auto) Baso % (Auto) Lymph # (Auto) [place] # (Auto) Eos # (Auto) Baso # (Auto) Abs Immat Gran (auto) Absolute Neuts (auto) Absolute Nucleated RBC Nucleated RBC % Platelet Estimate Anisocytosis Ovalocytes [place] Cells Schistocytes Puncture Site ABG pH ABG pCO2 ABG pO2 ABG PO2/FiO2 Ratio ABG HCO3 ABG O2 Saturation ABG O2 Content ABG Base Excess A-a Gradient Oxyhemoglobin Carboxyhemoglobin Methemoglobin Reduced Hemoglobin Total Hemoglobin O2 Delivery Device O2 Liters/Min Minute Volume Vent Rate Vent Mode FiO2 Tidal Volume PEEP Peak Inspir Pressure Pressure Support Sodium Potassium Chloride Carbon Dioxide Anion Gap BUN Creatinine Estim Creat Clear Calc Estimated GFR Glucose POC Capillary Glucose 308 H Calcium Magnesium Total Bilirubin AST ALT Alkaline Phosphatase Total Creatine Kinase Total Protein Albumin Ur Random Sodium Urine Creatinine Vancomycin Trough
[2024-03-30 17:33] LABS: Glucose Point of Care 347 mg/dl (65-105)
[2024-03-30 21:04] LABS: Glucose Point of Care 331 mg/dl (65-105)
[2024-03-30] MEDS: MIDAZOLAM 100MG/NS 100ML(*CRX) 100 MG/100 ML BAG IV CONT (21:07)
[2024-03-30 21:23] LABS: Vancomycin Trough 18.9 ug/mL (10.0-20.0)
[2024-03-30 21:32] LABS: Triglycerides 97 mg/dL (<150)
[2024-03-30] MEDS: VANCOMYCIN 1,500 MG/NS 500 ML 1,500 MG/500 ML BAG 250 MG IVPB (22:35)
[2024-03-31] VITALS (25 sets, daily range): BP systolic 89–116; BP diastolic 62–74; PULSE 76–190; RESP 22–26; TEMP 35.8–36.4; O2SAT 92–96
[2024-03-31] MEDS: INSULIN ASPART (*BKC) 100 UNITS/ML SUB-Q ×5 (00:07→20:15)
[2024-03-31 00:21] LABS: Glucose Point of Care 327 mg/dl (65-105)
[2024-03-31] MEDS: HYDROCORTISONE SODIUM SUCCINATE 100 MG/2 ML VIAL 50 MG IV PUSH ×4 (04:01→22:52)
[2024-03-31 04:20] LABS: Glucose Point of Care 335 mg/dl (65-105)
[2024-03-31 05:21] LABS: Alveolar/Arterial O2 Gradient 153.9 mmHg; Base Excess ABG 0.8 mEq/l (+/-2.0); Fractional Inspired Oxygen 40 %; HCO3 ABG 27.4 mEq/l (22.0-26.0); Methemoglobin ABG 0.3 %THb (0-1.5); Oxygen Saturation ABG 92.8 % (95.0-100.0); Oxyhemoglobin 93.3 % THb (90.0-100.0); PO2 ABG 70.4 mmHg (80.0-100.0); PO2 FiO2 Ratio Arterial Blood 1.76 %; Reduced Hemoglobin 6.4 %THb (0-5.0); Total Hemoglobin 11.4 g/dL (12.0-18.0); pH ABG 7.331 (7.350-7.450)
[2024-03-31 05:25] LABS: Arterial Blood Gas PEEP 12 cmH2O; Arterial Blood Gas Vent Mode CMV; Arterial Blood Gas Ventilator rate 22 /MIN; Device VENTILATOR; Modified Allen's Test Pass; Site Drawn LEFT RADIAL
[2024-03-31 05:26] LABS: Arterial Blood Gas Tidal Volume 400 ml
[2024-03-31] MEDS: CEFEPIME 2 GM/NS 50 ML 2 GM/50 ML BAG IVPB ×2 (05:39→17:56)
[2024-03-31] MEDS: CENTRAL LINE FLUSH 10 ML IV PUSH ×3 (05:40→20:33)
[2024-03-31 05:41] LABS: Basophils Percent Auto 0.4 % (0.2-1.2); Hematocrit 32.5 % (37.0-47.0); Hemoglobin 10.4 g/dL (12.0-15.0); Immature Granulocyte Absolute 0.05 K/mm3 (0.00-0.031); Immature Granulocyte Percent A 0.7 % (0-0.5); Lymphocytes Absolute Auto 0.14 K/mm3 (0.9-3.2); Mean Corpuscular Hemoglobin 30.1 pg (26-34); Mean Corpuscular Volume 93.9 fl (80-100); Mean Platelet Volume 10.4 fl (7.4-10.4); Monocytes Absolute Auto 0.2 K/mm3 (0.1-0.6); Monocytes Percent Auto 2.4 % (2.6-8.5); Neutrophils Absolute Auto 6.8 K/mm3 (1.3-6.7); Neutrophils Percent Auto 94.5 % (45.5-73.1); Platelet Count Result 165 k/mm3 (150-375); Red Blood Count 3.46 M/mm3 (4.2-5.4); Red Cell Distribution Width 16.4 % (11.5-14.5); White Blood Count 7.2 K/mm3 (4.5-10.0)
[2024-03-31 05:55] LABS: Alanine Aminotransferase 582 U/L (6-35); Albumin Level 3.1 g/dL (3.5-5.1); Alkaline Phosphatase 195 U/L (38-126); Anion Gap 8 mmol/L (4-12); Aspartate Amino Transferase 718 U/L (14-36); Bilirubin,Total 0.8 mg/dL (0.2-1.3); Blood Urea Nitrogen 68 mg/dL (7-17); Carbon Dioxide 28 mmol/L (22-30); Chloride 98 mmol/L (98-107); Estimated CRCL calculation 32 ml/min; Estimated Glomerular Filt Rate 23; Glucose 335 mg/dL (65-110); Magnesium 2.3 mg/dL (1.6-2.3); Potassium 3.6 mmol/L (3.4-5.0); Sodium 134 mmol/L (137-145)
[2024-03-31 06:02] LABS: Platelet Estimate Adequate (Adequate)
[2024-03-31 06:03] LABS: Anisocytosis 1+; Burr Cells 1+; Schistocytes None Seen
[2024-03-31] MEDS: AZITHROMYCIN 500 MG/NS 250 ML 500 MG/250 ML BAG 250 MG IVPB (06:05)
--- NOTE | 2024-03-31 09:02 | P.PNINT_ITS ---
Progress Note: A&P Assessment and Plan (1) Acute hypoxic respiratory failure: Code(s): J96.01 - Acute respiratory failure with hypoxia Status: Acute Assessment and Plan: Acute hypoxic respiratory failure secondary to pneumonia and possible component congestive heart failure 03/27 CTA chest No evidence of pulmonary embolus, aortic dissection, or aortic aneurysm. Extensive right lower lobe pneumonia. Probable mildly prominent reactive lymphadenopathy the right axilla and subcarinal region. Patient now emergently intubated 03/28 Chest x-ray and ABG reviewed Decrease PEEP to 10 and FiO2 is down to 60 per Hold further crystal IV fluid Continue Versed and fentanyl for sedation Repeat PCR was positive RSV -isolation Hydrocortisone for severe pneumonia and shock (2) Sepsis: Code(s): A41.9 - Sepsis, unspecified organism Status: Acute Assessment and Plan: Sepsis secondary to community-acquired pneumonia Blood cultures ordered and negative till now Pain sputum culture Urine Legionella and pneumococcal antigen pending Continue empiric cefepime azithromycin. procalcitonin level 4.4 MRSA screen negative. Vancomycin discontinued (3) Diabetes: Code(s): E11.9 - Type 2 diabetes mellitus without complications Status: Acute Assessment and Plan: Sliding scale insulin Increase dose of Lantus to 50 may have to add additional does in the evening Continue tube feed (4) Atrial fibrillation with RVR: Code(s): I48.91 - Unspecified atrial fibrillation Status: Acute Assessment and Plan: Currently on amiodarone infusion ordered by Cardiology Patient is anticoagulated with Eliquis Echo Summary 1. Very technically difficult study with limited views. 2. Left ventricular chamber dimension is normal. 3. Left ventricular systolic function is at lower limits of normal, estimated at 50-55%. 4. Left atrial chamber dimension is moderately enlarged Will discuss switching to p.o. (5) Community acquired pneumonia: Code(s): J18.9 - Pneumonia, unspecified organism Status: Acute Assessment and Plan: See above (6) Altered mental status: Code(s): R41.82 - Altered mental status, unspecified Status: Acute Assessment and Plan: Likely secondary to hypoxic. Patient had CT scan of the head recently done which was unremarkable Repeat head CT on 03/28 was again on remark And ammonia normal TSH was normal (7) Electrolyte abnormality: Code(s): E87.8 - Other disorders of electrolyte and fluid balance, not elsewhere classified Status: Acute Assessment and Plan: Potassium replacement ordered (8) Shock: Code(s): R57.9 - Shock, unspecified Status: Acute Assessment and Plan: Patient was on Levophed and vasopressin infusion which are currently off Continue hydrocortisone She did receive 25% albumin Hold further crystalloids (9) VINCENT (acute kidney injury): Code(s): N17.9 - Acute kidney failure, unspecified Status: Acute Assessment and Plan: Increase in creatinine and drop in urine output likely secondary to shock Patient is overall volume overloaded hence holding crystalloid Will give 5% albumin bolus Check urine electrolytes and norm CK level Check renal ultrasound Consult nephrology Hold diuretics and maintain mean arterial pressure with vasopressors (10) Elevated liver enzymes: Code(s): R74.8 - Abnormal levels of other serum enzymes Status: Acute Assessment and Plan: Patient is status post cholecystectomy Elevated AST ALT and alkaline phosphatase likely secondary to shock liver Hold statin Monitor Plan DVT prophylaxis -Eliquis Stress ulcer prophylaxis -protonix Nutrition -continue tube feed Code Status - Full Code I spoke to patient's and daughter at bedside and updated them with patient's current status including septic shock, respiratory failure, AFib with RVR, VINCENT and worsening renal function and possibility of patient needing dialysis. We also discussed her elevated liver enzymes. I answered all their question Case also discussed with hospitalist Total Critical Care Time - 40 minutes Due to a high probability of clinically significant, life threatening deterioration, the patient required my highest level of preparedness to intervene emergently and I personally spent this critical care time directly and personally managing the patient. This critical care time included obtaining a history; examining the patient; pulse oximetry; ordering and review of studies; arranging urgent treatment with development of a management plan; evaluation of patient's response to treatment; frequent reassessment; and discussions with other providers. It was exclusive of separately billable procedures and treating other patients and teaching time. Please see Assessment and Plan section and the rest of the note for further information on patient assessment and treatment Subjective Date/time seen: 03/31/24 Overnight events reviewed. Afebrile Continues to be on mechanical ventilation 40% FiO2 and 12 of PEEP Weaned off of vasopressor Continues to be sedated with fentanyl and Versed Tolerating tube feed Poor urine output Interval history: 68yo female with AFib s/p SHAYY cardioversion that was unsuccessful, KAREN not using CPAP, DM, HTN and endometrial cancer who presents with shortness of breath, leg swelling and weight gain over the past few weeks. Now in with respiratory failure secondary to pneumonia with septic shock. Intubated and on mechanical ventilation Review of Systems Review of Systems: ROS unobtainable: Yes unobtainable due to endotracheal tube, unobtainable due to medical condition and unobtainable due to mental status Exam Narrative: General: Pt is now sedated, intubated and on mechanical ventilation peer Lungs/Chest: Trachea central Coarse BS B/L, Cardiac: RRR. Normal S1 S2. No murmurs Circulation: Pedal pulses are intact and symmetrical. Abdomen: Decreased bowel sounds. Morbidly Obese. Soft. NT. ND. Extremities: No clubbing, cyanosis or bilateral pitting edema present : Can in place Neurologic: Unable to assess due to emergent situation. PERRL Objective Data Vital Signs Vital Signs: Vital Signs - 24 hr 03/30/24 10:00 03/30/24 10:00 03/30/24 10:00 Temperature 36.8 C Pulse Rate 99 87 99 Respiratory Rate 25 H 25 H Blood Pressure 97/70 L Pulse Oximetry 97 Oxygen Delivery Fraction of Inspired Oxygen 03/30/24 10:00 03/30/24 10:46 03/30/24 10:46 Temperature Pulse Rate 99 89 89 Respiratory Rate Blood Pressure 94/70 L 95/67 L 95/67 L Pulse Oximetry Oxygen Delivery Fraction of Inspired Oxygen 03/30/24 11:46 03/30/24 12:00 03/30/24 12:00 Temperature 36.8 C Pulse Rate 83 88 75 Respiratory Rate 25 H 25 H Blood Pressure 102/74 Pulse Oximetry 98 97 Oxygen Delivery Mechanical Ventilation Fraction of Inspired Oxygen 60 03/30/24 12:00 03/30/24 12:00 03/30/24 12:00 Temperature Pulse Rate 75 75 75 Respiratory Rate 25 H 25 H Blood Pressure 95/76 L Pulse Oximetry 96 Oxygen Delivery Mechanical Ventilation Fraction of Inspired Oxygen 60 03/30/24 12:00 03/30/24 12:00 03/30/24 13:38 Temperature Pulse Rate 75 84 Respiratory Rate Blood Pressure Pulse Oximetry 97 Oxygen Delivery Mechanical Ventilation Fraction of Inspired Oxygen 60 50 03/30/24 14:00 03/30/24 14:00 03/30/24 14:00 Temperature Pulse Rate 83 83 83 Respiratory Rate 25 H 25 H Blood Pressure 110/69 Pulse Oximetry Oxygen Delivery Fraction of Inspired Oxygen 03/30/24 14:00 03/30/24 14:00 03/30/24 16:00 Temperature 36.6 C Pulse Rate 83 83 85 Respiratory Rate 25 H 25 H Blood Pressure 102/71 Pulse Oximetry 94 Oxygen Delivery Fraction of Inspired Oxygen 03/30/24 16:00 03/30/24 16:00 03/30/24 16:00 Temperature Pulse Rate 83 83 83 Respiratory Rate 25 H 25 H Blood Pressure 100/71 Pulse Oximetry 94 Oxygen Delivery Mechanical Ventilation Fraction of Inspired Oxygen 60 03/30/24 16:00 03/30/24 16:00 03/30/24 16:00 Temperature 36.4 C Pulse Rate 83 84 Respiratory Rate 25 H Blood Pressure 100/71 Pulse Oximetry 95 Oxygen Delivery Fraction of Inspired Oxygen 60 03/30/24 17:32 03/30/24 18:00 03/30/24 18:00 Temperature Pulse Rate 91 90 90 Respiratory Rate 25 H Blood Pressure 100/74 Pulse Oximetry 95 Oxygen Delivery Mechanical Ventilation Fraction of Inspired Oxygen 50 03/30/24 18:00 03/30/24 20:00 03/30/24 20:00 Temperature 36.4 C L Pulse Rate 90 81 81 Respiratory Rate 25 H 26 H 26 H Blood Pressure 100/69 Pulse Oximetry 95 Oxygen Delivery Fraction of Inspired Oxygen 03/30/24 20:00 03/30/24 20:00 03/30/24 20:00 Temperature Pulse Rate 81 81 81 Respiratory Rate 28 H Blood Pressure 100/69 100/69 Pulse Oximetry Oxygen Delivery Fraction of Inspired Oxygen 03/30/24 20:00 03/30/24 20:00 03/30/24 20:00 Temperature Pulse Rate 83 Respiratory Rate Blood Pressure Pulse Oximetry Oxygen Delivery Mechanical Ventilation Fraction of Inspired Oxygen 40 40 03/30/24 20:29 03/30/24 21:07 03/30/24 21:07 Temperature Pulse Rate 89 99 99 Respiratory Rate 29 H 29 H Blood Pressure Pulse Oximetry 100 Oxygen Delivery Mechanical Ventilation Fraction of Inspired Oxygen 50 03/30/24 21:48 03/30/24 22:00 03/30/24 22:00 Temperature Pulse Rate 101 H 95 95 Respiratory Rate 27 H Blood Pressure 81/51 L 84/55 L Pulse Oximetry Oxygen Delivery Fraction of Inspired Oxygen 03/30/24 22:00 03/30/24 22:00 03/30/24 22:00 Temperature Pulse Rate 95 95 95 Respiratory Rate 27 H Blood Pressure 84/55 L Pulse Oximetry Oxygen Delivery Fraction of Inspired Oxygen 03/30/24 22:00 03/30/24 22:32 03/30/24 22:32 Temperature 36.2 C L Pulse Rate 95 94 94 Respiratory Rate 27 H Blood Pressure 84/55 L 91/63 L 91/63 L Pulse Oximetry 94 Oxygen Delivery Fraction of Inspired Oxygen 03/30/24 23:10 03/31/24 00:00 03/31/24 00:00 Temperature 36.4 C Pulse Rate 86 89 Respiratory Rate 24 H Blood Pressure 99/70 L Pulse Oximetry 94 96 Oxygen Delivery Mechanical Ventilation Mechanical Ventilation Fraction of Inspired Oxygen 40 40 03/31/24 00:00 03/31/24 00:00 03/31/24 00:00 Temperature Pulse Rate 76 76 Respiratory Rate 24 H Blood Pressure 99/70 L Pulse Oximetry Oxygen Delivery Fraction of Inspired Oxygen 40 03/31/24 00:00 03/31/24 00:00 03/31/24 00:00 Temperature Pulse Rate 76 76 76 Respiratory Rate 24 H Blood Pressure 99/70 L Pulse Oximetry Oxygen Delivery Fraction of Inspired Oxygen 03/31/24 02:00 03/31/24 02:00 03/31/24 02:00 Temperature Pulse Rate 78 78 78 Respiratory Rate 25 H Blood Pressure 99/74 L 99/74 L Pulse Oximetry Oxygen Delivery Fraction of Inspired Oxygen 03/31/24 02:00 03/31/24 02:00 03/31/24 02:00 Temperature 36.4 C Pulse Rate 78 78 78 Respiratory Rate 25 H 25 H Blood Pressure 99/74 L Pulse Oximetry 95 Oxygen Delivery Fraction of Inspired Oxygen 03/31/24 02:28 03/31/24 04:00 03/31/24 04:00 Temperature 36.4 C L Pulse Rate 83 82 Respiratory Rate 25 H Blood Pressure 96/70 L Pulse Oximetry 94 94 Oxygen Delivery Mechanical Ventilation Mechanical Ventilation Fraction of Inspired Oxygen 40 40 03/31/24 04:00 03/31/24 04:00 03/31/24 05:10 Temperature Pulse Rate 85 83 Respiratory Rate Blood Pressure Pulse Oximetry 93 Oxygen Delivery Mechanical Ventilation Fraction of Inspired Oxygen 40 40 03/31/24 06:00 03/31/24 06:00 03/31/24 06:00 Temperature Pulse Rate 90 90 90 Respiratory Rate 25 H 25 H Blood Pressure 100/73 Pulse Oximetry Oxygen Delivery Fraction of Inspired Oxygen 03/31/24 06:00 03/31/24 06:00 03/31/24 06:01 Temperature 36.1 C L Pulse Rate 90 90 88 Respiratory Rate 25 H Blood Pressure 100/73 100/73 Pulse Oximetry 92 Oxygen Delivery Fraction of Inspired Oxygen 03/31/24 08:08 Temperature Pulse Rate 104 H Respiratory Rate Blood Pressure Pulse Oximetry 94 Oxygen Delivery Mechanical Ventilation Fraction of Inspired Oxygen 40 Intake/Output Intake/Output: Intake & Output 03/28/24 03/29/24 03/30/24 03/31/24 23:59 23:59 23:59 23:59 Intake Total 3420.3 2837.6 2340.0 1008.0 Output Total 1400 850 410 175 Balance 2020.3 1987.6 1930.0 833.0 Meds/Results Medications: Active Medications Generic Name Dose Route Start Last Admin Trade Name Freq PRN Reason Stop Dose Admin Acetaminophen 650 mg 03/27/24 14:41 03/29/24 05:11 Acetaminophen 325 Mg Tablet PO 650 mg Q4H PRN Administration Mild Pain (1-3) or Fever Apixaban 5 mg 03/27/24 12:35 03/30/24 20:58 Apixaban 5 Mg Tablet PO 5 mg Q12HR LAVERNE Administration Cyanocobalamin 1,000 mcg 03/27/24 17:00 03/30/24 16:56 Cyanocobalamin 1,000 Mcg Tablet PO 1,000 mcg BID LAVERNE Administration Dextrose 12.5 gm 03/27/24 08:57 Dextrose 50% 25 Gm/50 Ml Syringe IV PUSH PRN PRN Hypoglycemia Protocol Glucagon 1 mg 03/27/24 08:57 Glucagon For Inj 1 Mg Vial IM PRN PRN Hypoglycemia Protocol Glucose 15 gm 03/27/24 08:57 Glucose Oral Gel 15 Gm Of Glucse In 37.5 Gm Tube PO PRN PRN Hypoglycemia Protocol Hydrocortisone Sodium Succinate 50 mg 03/28/24 16:00 03/31/24 04:01 Hydrocortisone Sodium Succinate 100 Mg/2 Ml Vial IV PUSH 50 mg Q6H LAVERNE Administration Azithromycin 500 mg in 250 mls @ 250 mls/hr 03/28/24 06:00 03/31/24 06:05 Zithromax IVPB 03/31/24 23:59 250 mls/hr Q24H LAVERNE Administration Dextrose 1,000 mls @ 100 mls/hr 03/27/24 08:57 Dextrose 5% 1,000 Ml IVPB PRN PRN Hypoglycemia Protocol Fentanyl Citrate 2,500 mcg in 250 mls @ 5 mls/hr 03/28/24 15:45 03/31/24 06:00 Fentanyl 2,500 Mcg/Ns 250 Ml IV CONT 50 mcg/hr .Q50H LAVERNE 5 mls/hr Titration Protocol 50 MCG/HR Midazolam HCl 100 mg in 100 mls @ 3 mls/hr 03/28/24 19:30 03/31/24 06:53 Versed 100 Mg/Ns 100 Ml IV CONT Not Given .[id number] LAVERNE Protocol 3 MG/HR Amiodarone HCl/Dextrose 360 mg in 200 mls @ 16.667 mls/hr 03/28/24 23:15 03/31/24 06:00 Nexterone 360 Mg/D5w 200 Ml IV CONT 0.5 mg/min .Q12H LAVERNE 16.67 mls/hr Infusion 0.5 MG/MIN Cefepime HCl 2 gm in 50 mls @ 100 mls/hr 03/30/24 18:00 03/31/24 06:05 Maxipime 2 Gm/Ns 50 Ml IVPB 04/02/24 23:59 Infused Q12H LAVERNE Infusion Vasopressin 100 units/ 100 mls @ 0 mls/hr 03/31/24 06:10 Dextrose IV CONT .Q0M LAVERNE Protocol 0 UNIT/HR Insulin Aspart 4 - 8 units 03/29/24 13:00 03/31/24 04:01 Insulin Aspart (*Bkc) 100 Units/Ml SUB-Q 6 units Q4HR LAVERNE Administration Protocol Insulin Glargine 50 units 03/31/24 09:00 Insulin Glargine (*Bkc) 100 Units/Ml SUB-Q QAM LAVERNE Multi-Ingred Cream/Lotion/Oil/Oint 1 applic 03/28/24 21:00 03/30/24 21:14 Mineral Oil/White Petrolatum Ointment EACH EYE 1 applic Q12HR LAVERNE Administration Pantoprazole Sodium 40 mg 03/29/24 09:00 03/30/24 08:37 Pantoprazole Sodium Iv 40 Mg Vial IV PUSH 40 mg DAILY LAVERNE Administration Perflutren Lipid Microsphere 0 ml 01/27/25 09:26 Perflutren Lipid Microspheres 1.5 Ml Vial Diluted To 10 Ml Total Volume IV PUSH 03/31/24 09:26 ONCE PRN adequate visualization Protocol Rosuvastatin Calcium 20 mg 03/28/24 09:00 03/30/24 08:37 Rosuvastatin 20 Mg Tablet PO 20 mg DAILY LAVERNE Administration Sodium Chloride 10 ml 03/28/24 22:00 03/31/24 05:40 Central Line Flush IV PUSH 10 ml Q8HR LAVERNE Administration Sodium Chloride 10 ml 03/28/24 16:14 Central Line Flush IV PUSH PRN PRN with TPN bag changes Sodium Chloride 20 ml 03/28/24 16:14 Central Line Flush IV PUSH PRN PRN after blood draws Vancomycin HCl 1 each 03/30/24 07:30 Vancomycin For Acute Kidney Injury IVPB PRN PRN Vancomycin Protocol Radiology Results: ITS Impressions Chest CTA 03/27/24 06:41 Impression: No evidence of pulmonary embolus, aortic dissection, or aortic aneurysm. Extensive right lower lobe pneumonia. Probable mildly prominent reactive lymphadenopathy the right axilla and subcarinal region. Head CT 03/28/24 22:59 IMPRESSION: 1. Normal brain. Abdomen X-Ray 03/29/24 08:59 IMPRESSION: 1. Lines and tubes in expected positions. 2. Diffuse bilateral lung disease, right greater than left, consistent with multifocal pneumonia. Chest X-Ray 03/31/24 05:39 Impression: 1: Persistent diffuse bilateral airspace disease without significant change, edema versus pneumonia. Labs Labs: Laboratory Results - last 24 hr 03/30/24 03/30/24 03/30/24 06:19 10:54 11:28 WBC RBC Hgb Hct MCV MCH MCHC RDW Plt Count MPV Immature Gran % (Auto) Neut % (Auto) Lymph % (Auto) Holmes % (Auto) Eos % (Auto) Baso % (Auto) Lymph # (Auto) Holmes # (Auto) Eos # (Auto) Baso # (Auto) Abs Immat Gran (auto) Absolute Neuts (auto) Absolute Nucleated RBC Nucleated RBC % Platelet Estimate Anisocytosis Monetta Cells Schistocytes Puncture Site ABG pH ABG pCO2 ABG pO2 ABG PO2/FiO2 Ratio ABG HCO3 ABG O2 Saturation ABG O2 Content ABG Base Excess A-a Gradient Oxyhemoglobin Carboxyhemoglobin Methemoglobin Reduced Hemoglobin Total Hemoglobin O2 Delivery Device O2 Liters/Min Minute Volume Vent Rate Vent Mode FiO2 Tidal Volume PEEP Peak Inspir Pressure Pressure Support Sodium Potassium Chloride Carbon Dioxide Anion Gap BUN Creatinine Estim Creat Clear Calc Estimated GFR Glucose POC Capillary Glucose 308 H Calcium Magnesium Total Bilirubin AST ALT Alkaline Phosphatase Total Protein Albumin Triglycerides 97 Ur Random Sodium < 5 Urine Creatinine 186.0 Vancomycin Trough 03/30/24 03/30/24 03/30/24 17:28 20:57 21:02 WBC RBC Hgb Hct MCV MCH MCHC RDW Plt Count MPV Immature Gran % (Auto) Neut % (Auto) Lymph % (Auto) Holmes % (Auto) Eos % (Auto) Baso % (Auto) Lymph # (Auto) Holmes # (Auto) Eos # (Auto) Baso # (Auto) Abs Immat Gran (auto) Absolute Neuts (auto) Absolute Nucleated RBC Nucleated RBC % Platelet Estimate Anisocytosis Kathy Cells Schistocytes Puncture Site ABG pH ABG pCO2 ABG pO2 ABG PO2/FiO2 Ratio ABG HCO3 ABG O2 Saturation ABG O2 Content ABG Base Excess A-a Gradient Oxyhemoglobin Carboxyhemoglobin Methemoglobin Reduced Hemoglobin Total Hemoglobin O2 Delivery Device O2 Liters/Min Minute Volume Vent Rate Vent Mode FiO2 Tidal Volume PEEP Peak Inspir Pressure Pressure Support Sodium Potassium Chloride Carbon Dioxide Anion Gap BUN Creatinine Estim Creat Clear Calc Estimated GFR Glucose POC Capillary Glucose 347 H 331 H Calcium Magnesium Total Bilirubin AST ALT Alkaline Phosphatase Total Protein Albumin Triglycerides Ur Random Sodium Urine Creatinine Vancomycin Trough 18.9 03/31/24 03/31/24 03/31/24 00:06 03:58 05:09 WBC RBC Hgb Hct MCV MCH MCHC RDW Plt Count MPV Immature Gran % (Auto) Neut % (Auto) Lymph % (Auto) Holmes % (Auto) Eos % (Auto) Baso % (Auto) Lymph # (Auto) Holmes # (Auto) Eos # (Auto) Baso # (Auto) Abs Immat Gran (auto) Absolute Neuts (auto) Absolute Nucleated RBC Nucleated RBC % Platelet Estimate Anisocytosis Monetta Cells Schistocytes Puncture Site Left radial ABG pH 7.331 L ABG pCO2 53.0 H ABG pO2 70.4 L ABG PO2/FiO2 Ratio 1.76 ABG HCO3 27.4 H ABG O2 Saturation 92.8 L ABG O2 Content 15.0 L ABG Base Excess 0.8 A-a Gradient 153.9 Oxyhemoglobin 93.3 Carboxyhemoglobin 0.0 Methemoglobin 0.3 Reduced Hemoglobin 6.4 H Total Hemoglobin 11.4 L O2 Delivery Device Ventilator O2 Liters/Min Not Reportable Minute Volume Not Reportable Vent Rate 22 Vent Mode Cmv FiO2 40 Tidal Volume 400 PEEP 12 Peak Inspir Pressure Not Reportable Pressure Support Not Reportable Sodium Potassium Chloride Carbon Dioxide Anion Gap BUN Creatinine Estim Creat Clear Calc Estimated GFR Glucose POC Capillary Glucose 327 H 335 H Calcium Magnesium Total Bilirubin AST ALT Alkaline Phosphatase Total Protein Albumin Triglycerides Ur Random Sodium Urine Creatinine Vancomycin Trough 03/31/24 05:36 WBC 7.2 RBC 3.46 L Hgb 10.4 L Hct 32.5 L MCV 93.9 MCH 30.1 MCHC 32.0 RDW 16.4 H Plt Count 165 MPV 10.4 Immature Gran % (Auto) 0.7 H Neut % (Auto) 94.5 H Lymph % (Auto) 2.0 L Holmes % (Auto) 2.4 L Eos % (Auto) 0.0 Baso % (Auto) 0.4 Lymph # (Auto) 0.14 L Holmes # (Auto) 0.2 Eos # (Auto) 0.0 Baso # (Auto) 0.0 Abs Immat Gran (auto) 0.05 H Absolute Neuts (auto) 6.8 H Absolute Nucleated RBC 0.000 Nucleated RBC % 0.0 Platelet Estimate Adequate Anisocytosis 1+ Monetta Cells 1+ Schistocytes None seen Puncture Site ABG pH ABG pCO2 ABG pO2 ABG PO2/FiO2 Ratio ABG HCO3 ABG O2 Saturation ABG O2 Content ABG Base Excess A-a Gradient Oxyhemoglobin Carboxyhemoglobin Methemoglobin Reduced Hemoglobin Total Hemoglobin O2 Delivery Device O2 Liters/Min Minute Volume Vent Rate Vent Mode FiO2 Tidal Volume PEEP Peak Inspir Pressure Pressure Support Sodium 134 L Potassium 3.6 Chloride 98 Carbon Dioxide 28 Anion Gap 8 BUN 68 H D Creatinine 2.10 H Estim Creat Clear Calc 32 Estimated GFR 23 L Glucose 335 H POC Capillary Glucose Calcium 8.0 L Magnesium 2.3 Total Bilirubin 0.8 AST 718 H ALT 582 H Alkaline Phosphatase 195 H Total Protein 6.0 L Albumin 3.1 L Triglycerides Ur Random Sodium Urine Creatinine Vancomycin Trough Quality VTE Prophylaxis VTE prophylaxis: pharmacologic ordered
[2024-03-31] MEDS: APIXABAN 5 MG TABLET PO ×2 (09:30→20:32)
[2024-03-31] MEDS: PANTOPRAZOLE SODIUM IV 40 MG VIAL IV PUSH (09:30)
[2024-03-31] MEDS: MINERAL OIL/WHITE PETROLATUM OINTMENT 1 APPLIC EACH EYE ×2 (09:30→20:32)
[2024-03-31] MEDS: CYANOCOBALAMIN 1,000 MCG TABLET 1000 MCG PO ×2 (09:30→17:05)
[2024-03-31] MEDS: POTASSIUM CHLORIDE 20 MEQ PACKET (FOR LIQUID) 40 MEQ FEED TUBE (09:30)
[2024-03-31] MEDS: INSULIN GLARGINE (*BKC) 100 UNITS/ML 50 UNITS SUB-Q (09:33)
--- NOTE | 2024-03-31 10:12 | PM.PNCARD ---
Progress Note: A&P Assessment and Plan (1) Acute on chronic heart failure: Code(s): I50.9 - Heart failure, unspecified Status: Acute (2) Atrial fibrillation with RVR: Code(s): I48.91 - Unspecified atrial fibrillation Status: Acute Plan 68-year-old woman with paroxysmal atrial fibrillation, diabetes, and hypertension who initially presented with shortness of breath and now admitted for acute hypoxic respiratory is failure requiring mechanical ventilation in setting of RSV infection and possible acute on chronic diastolic heart failure Paroxysmal atrial fibrillation -she was status post cardioversion in January and has since been on Eliquis and had not missed any doses -she is now on amiodarone drip -continue Eliquis 5 mg p.o. b.i.d. Acute on chronic diastolic heart failure -on clinical examination, she appears euvolemic Hyperlipidemia -rosuvastatin 20 mg every evening Subjective Date/time seen: 03/31/24 10:12 Interval history: Intubated and sedated Review of Systems Review of Systems: ROS unobtainable: Yes unobtainable due to endotracheal tube Exam Const: Other: Intubated and sedated HENMT: Other: Endotracheal tube in place Neck: Neck: no JVD Resp: Other: Mechanical ventilatory noise Cardio: Rate: regular rate Rhythm: abnormal rhythm Extrem: General: no pedal edema Objective Data Vital Signs Vital Signs: Vital Signs - 24 hr 03/30/24 10:46 03/30/24 10:46 03/30/24 11:46 Temperature Pulse Rate 89 89 83 Respiratory Rate Blood Pressure 95/67 L 95/67 L Pulse Oximetry 98 Oxygen Delivery Mechanical Ventilation Fraction of Inspired Oxygen 60 03/30/24 12:00 03/30/24 12:00 03/30/24 12:00 Temperature 36.8 C Pulse Rate 88 75 75 Respiratory Rate 25 H 25 H Blood Pressure 102/74 95/76 L Pulse Oximetry 97 Oxygen Delivery Fraction of Inspired Oxygen 03/30/24 12:00 03/30/24 12:00 03/30/24 12:00 Temperature Pulse Rate 75 75 75 Respiratory Rate 25 H 25 H Blood Pressure Pulse Oximetry 96 Oxygen Delivery Mechanical Ventilation Fraction of Inspired Oxygen 60 03/30/24 12:00 03/30/24 13:38 03/30/24 14:00 Temperature Pulse Rate 84 83 Respiratory Rate 25 H Blood Pressure Pulse Oximetry 97 Oxygen Delivery Mechanical Ventilation Fraction of Inspired Oxygen 60 50 03/30/24 14:00 03/30/24 14:00 03/30/24 14:00 Temperature Pulse Rate 83 83 83 Respiratory Rate 25 H Blood Pressure 110/69 Pulse Oximetry Oxygen Delivery Fraction of Inspired Oxygen 03/30/24 14:00 03/30/24 16:00 03/30/24 16:00 Temperature 36.6 C Pulse Rate 83 85 83 Respiratory Rate 25 H 25 H Blood Pressure 102/71 100/71 Pulse Oximetry 94 Oxygen Delivery Fraction of Inspired Oxygen 03/30/24 16:00 03/30/24 16:00 03/30/24 16:00 Temperature Pulse Rate 83 83 83 Respiratory Rate 25 H 25 H Blood Pressure Pulse Oximetry 94 Oxygen Delivery Mechanical Ventilation Fraction of Inspired Oxygen 60 03/30/24 16:00 03/30/24 16:00 03/30/24 17:32 Temperature 36.4 C Pulse Rate 84 91 Respiratory Rate 25 H Blood Pressure 100/71 Pulse Oximetry 95 95 Oxygen Delivery Mechanical Ventilation Fraction of Inspired Oxygen 60 50 03/30/24 18:00 03/30/24 18:00 03/30/24 18:00 Temperature Pulse Rate 90 90 90 Respiratory Rate 25 H 25 H Blood Pressure 100/74 Pulse Oximetry Oxygen Delivery Fraction of Inspired Oxygen 03/30/24 20:00 03/30/24 20:00 03/30/24 20:00 Temperature 36.4 C L Pulse Rate 81 81 81 Respiratory Rate 26 H 26 H Blood Pressure 100/69 100/69 Pulse Oximetry 95 Oxygen Delivery Fraction of Inspired Oxygen 03/30/24 20:00 03/30/24 20:00 03/30/24 20:00 Temperature Pulse Rate 81 81 Respiratory Rate 28 H Blood Pressure 100/69 Pulse Oximetry Oxygen Delivery Mechanical Ventilation Fraction of Inspired Oxygen 40 03/30/24 20:00 03/30/24 20:00 03/30/24 20:29 Temperature Pulse Rate 83 89 Respiratory Rate Blood Pressure Pulse Oximetry 100 Oxygen Delivery Mechanical Ventilation Fraction of Inspired Oxygen 40 50 03/30/24 21:07 03/30/24 21:07 03/30/24 21:48 Temperature Pulse Rate 99 99 101 H Respiratory Rate 29 H 29 H Blood Pressure 81/51 L Pulse Oximetry Oxygen Delivery Fraction of Inspired Oxygen 03/30/24 22:00 03/30/24 22:00 03/30/24 22:00 Temperature Pulse Rate 95 95 95 Respiratory Rate 27 H 27 H Blood Pressure 84/55 L Pulse Oximetry Oxygen Delivery Fraction of Inspired Oxygen 03/30/24 22:00 03/30/24 22:00 03/30/24 22:00 Temperature 36.2 C L Pulse Rate 95 95 95 Respiratory Rate 27 H Blood Pressure 84/55 L 84/55 L Pulse Oximetry 94 Oxygen Delivery Fraction of Inspired Oxygen 03/30/24 22:32 03/30/24 22:32 03/30/24 23:10 Temperature Pulse Rate 94 94 86 Respiratory Rate Blood Pressure 91/63 L 91/63 L Pulse Oximetry 94 Oxygen Delivery Mechanical Ventilation Fraction of Inspired Oxygen 40 03/31/24 00:00 03/31/24 00:00 03/31/24 00:00 Temperature 36.4 C Pulse Rate 89 Respiratory Rate 24 H Blood Pressure 99/70 L Pulse Oximetry 96 Oxygen Delivery Mechanical Ventilation Fraction of Inspired Oxygen 40 40 03/31/24 00:00 03/31/24 00:00 03/31/24 00:00 Temperature Pulse Rate 76 76 76 Respiratory Rate 24 H Blood Pressure 99/70 L 99/70 L Pulse Oximetry Oxygen Delivery Fraction of Inspired Oxygen 03/31/24 00:00 03/31/24 00:00 03/31/24 02:00 Temperature Pulse Rate 76 76 78 Respiratory Rate 24 H Blood Pressure 99/74 L Pulse Oximetry Oxygen Delivery Fraction of Inspired Oxygen 03/31/24 02:00 03/31/24 02:00 03/31/24 02:00 Temperature Pulse Rate 78 78 78 Respiratory Rate 25 H 25 H Blood Pressure 99/74 L Pulse Oximetry Oxygen Delivery Fraction of Inspired Oxygen 03/31/24 02:00 03/31/24 02:00 03/31/24 02:28 Temperature 36.4 C Pulse Rate 78 78 83 Respiratory Rate 25 H Blood Pressure 99/74 L Pulse Oximetry 95 94 Oxygen Delivery Mechanical Ventilation Fraction of Inspired Oxygen 40 03/31/24 04:00 03/31/24 04:00 03/31/24 04:00 Temperature 36.4 C L Pulse Rate 82 85 Respiratory Rate 25 H Blood Pressure 96/70 L Pulse Oximetry 94 Oxygen Delivery Mechanical Ventilation Fraction of Inspired Oxygen 40 03/31/24 04:00 03/31/24 05:10 03/31/24 06:00 Temperature Pulse Rate 83 90 Respiratory Rate 25 H Blood Pressure Pulse Oximetry 93 Oxygen Delivery Mechanical Ventilation Fraction of Inspired Oxygen 40 40 03/31/24 06:00 03/31/24 06:00 03/31/24 06:00 Temperature Pulse Rate 90 90 90 Respiratory Rate 25 H Blood Pressure 100/73 Pulse Oximetry Oxygen Delivery Fraction of Inspired Oxygen 03/31/24 06:00 03/31/24 06:01 03/31/24 08:00 Temperature 36.1 C L 35.9 C L Pulse Rate 90 88 99 Respiratory Rate 25 H 23 H Blood Pressure 100/73 100/73 102/72 Pulse Oximetry 92 Oxygen Delivery Fraction of Inspired Oxygen 03/31/24 08:08 03/31/24 09:00 Temperature Pulse Rate 104 H Respiratory Rate Blood Pressure Pulse Oximetry 94 94 Oxygen Delivery Mechanical Ventilation Mechanical Ventilation Fraction of Inspired Oxygen 40 40 Intake/Output Intake/Output: Intake & Output 03/28/24 03/29/24 03/30/24 03/31/24 23:59 23:59 23:59 23:59 Intake Total 3420.3 2837.6 2340.0 1008.0 Output Total 1400 850 410 175 Balance 2020.3 1987.6 1930.0 833.0 Meds/Results Medications: Active Medications Generic Name Dose Route Start Last Admin Trade Name Freq PRN Reason Stop Dose Admin Acetaminophen 650 mg 03/27/24 14:41 03/29/24 05:11 Acetaminophen 325 Mg Tablet PO 650 mg Q4H PRN Administration Mild Pain (1-3) or Fever Apixaban 5 mg 03/27/24 12:35 03/31/24 09:30 Apixaban 5 Mg Tablet PO 5 mg Q12HR LAVERNE Administration Cyanocobalamin 1,000 mcg 03/27/24 17:00 03/31/24 09:30 Cyanocobalamin 1,000 Mcg Tablet PO 1,000 mcg BID LAVERNE Administration Dextrose 12.5 gm 03/27/24 08:57 Dextrose 50% 25 Gm/50 Ml Syringe IV PUSH PRN PRN Hypoglycemia Protocol Glucagon 1 mg 03/27/24 08:57 Glucagon For Inj 1 Mg Vial IM PRN PRN Hypoglycemia Protocol Glucose 15 gm 03/27/24 08:57 Glucose Oral Gel 15 Gm Of Glucse In 37.5 Gm Tube PO PRN PRN Hypoglycemia Protocol Hydrocortisone Sodium Succinate 50 mg 03/28/24 16:00 03/31/24 09:30 Hydrocortisone Sodium Succinate 100 Mg/2 Ml Vial IV PUSH 50 mg Q6H L[facility]ERNE Administration Azithromycin 500 mg in 250 mls @ 250 mls/hr 03/28/24 06:00 03/31/24 06:05 Zithromax IVPB 03/31/24 23:59 250 mls/hr Q24H LAVERNE Administration Dextrose 1,000 mls @ 100 mls/hr 03/27/24 08:57 Dextrose 5% 1,000 Ml IVPB PRN PRN Hypoglycemia Protocol Fentanyl Citrate 2,500 mcg in 250 mls @ 5 mls/hr 03/28/24 15:45 03/31/24 06:00 Fentanyl 2,500 Mcg/Ns 250 Ml IV CONT 50 mcg/hr .Q50H LAVERNE 5 mls/hr Titration Protocol 50 MCG/HR Midazolam HCl 100 mg in 100 mls @ 3 mls/hr 03/28/24 19:30 03/31/24 06:53 Versed 100 Mg/Ns 100 Ml IV CONT Not Given .[id number] [facility] Protocol 3 MG/HR Amiodarone HCl/Dextrose 360 mg in 200 mls @ 16.667 mls/hr 03/28/24 23:15 03/31/24 06:00 Nexterone 360 Mg/D5w 200 Ml IV CONT 0.5 mg/min .Q12H LAVERNE 16.67 mls/hr Infusion 0.5 MG/MIN Cefepime HCl 2 gm in 50 mls @ 100 mls/hr 03/30/24 18:00 03/31/24 06:05 Maxipime 2 Gm/Ns 50 Ml IVPB 04/02/24 23:59 Infused Q12H LAVERNE Infusion Insulin Aspart 4 - 8 units 03/29/24 13:00 03/31/24 09:32 Insulin Aspart (*Bkc) 100 Units/Ml SUB-Q 6 units Q4HR [facility]ER[facility] Administration Protocol Insulin Glargine 50 units 03/31/24 09:00 03/31/24 09:33 Insulin Glargine (*Bkc) 100 Units/Ml SUB-Q 50 units QAM L[facility]ERNE Administration Multi-Ingred Cream/Lotion/Oil/Oint 1 applic 03/28/24 21:00 03/31/24 09:30 Mineral Oil/White Petrolatum Ointment EACH EYE 1 applic Q12HR [facility]ER[facility] Administration Pantoprazole Sodium 40 mg 03/29/24 09:00 03/31/24 09:30 Pantoprazole Sodium Iv 40 Mg Vial IV PUSH 40 mg DAILY [facility]ERNE Administration Rosuvastatin Calcium 20 mg 03/28/24 09:00 03/31/24 09:28 Rosuvastatin 20 Mg Tablet PO Not Given DAILY L[facility]ERNE Sodium Chloride 10 ml 03/28/24 22:00 03/31/24 05:40 Central Line Flush IV PUSH 10 ml Q8HR [facility] Administration Sodium Chloride 10 ml 03/28/24 16:14 Central Line Flush IV PUSH PRN PRN with TPN bag changes Sodium Chloride 20 ml 03/28/24 16:14 Central Line Flush IV PUSH PRN PRN after blood draws Vancomycin HCl 1 each 03/30/24 07:30 Vancomycin For Acute Kidney Injury IVPB PRN PRN Vancomycin Protocol Radiology Results: ITS Impressions Chest CTA 03/27/24 06:41 Impression: No evidence of pulmonary embolus, aortic dissection, or aortic aneurysm. Extensive right lower lobe pneumonia. Probable mildly prominent reactive lymphadenopathy the right axilla and subcarinal region. Head CT 03/28/24 22:59 IMPRESSION: 1. Normal brain. Abdomen X-Ray 03/29/24 08:59 IMPRESSION: 1. Lines and tubes in expected positions. 2. Diffuse bilateral lung disease, right greater than left, consistent with multifocal pneumonia. Chest X-Ray 03/31/24 05:39 Impression: 1: Persistent diffuse bilateral airspace disease without significant change, edema versus pneumonia. Labs Labs: Laboratory Results - last 24 hr 03/30/24 03/30/24 03/30/24 06:19 10:54 11:28 WBC RBC Hgb Hct MCV MCH MCHC RDW Plt Count MPV Immature Gran % (Auto) Neut % (Auto) Lymph % (Auto) [place] % (Auto) Eos % (Auto) Baso % (Auto) Lymph # (Auto) [place] # (Auto) Eos # (Auto) Baso # (Auto) Abs Immat Gran (auto) Absolute Neuts (auto) Absolute Nucleated RBC Nucleated RBC % Platelet Estimate Anisocytosis [place] Cells Schistocytes Puncture Site ABG pH ABG pCO2 ABG pO2 ABG PO2/FiO2 Ratio ABG HCO3 ABG O2 Saturation ABG O2 Content ABG Base Excess A-a Gradient Oxyhemoglobin Carboxyhemoglobin Methemoglobin Reduced Hemoglobin Total Hemoglobin O2 Delivery Device O2 Liters/Min Minute Volume Vent Rate Vent Mode FiO2 Tidal Volume PEEP Peak Inspir Pressure Pressure Support Sodium Potassium Chloride Carbon Dioxide Anion Gap BUN Creatinine Estim Creat Clear Calc Estimated GFR Glucose POC Capillary Glucose 308 H Calcium Magnesium Total Bilirubin AST ALT Alkaline Phosphatase Total Protein Albumin Triglycerides 97 Ur Random Sodium < 5 Urine Creatinine 186.0 Vancomycin Trough 03/30/24 03/30/24 03/30/24 17:28 20:57 21:02 WBC RBC Hgb Hct MCV MCH MCHC RDW Plt Count MPV Immature Gran % (Auto) Neut % (Auto) Lymph % (Auto) [place] % (Auto) Eos % (Auto) Baso % (Auto) Lymph # (Auto) [place] # (Auto) Eos # (Auto) Baso # (Auto) Abs Immat Gran (auto) Absolute Neuts (auto) Absolute Nucleated RBC Nucleated RBC % Platelet Estimate Anisocytosis [place] Cells Schistocytes Puncture Site ABG pH ABG pCO2 ABG pO2 ABG PO2/FiO2 Ratio ABG HCO3 ABG O2 Saturation ABG O2 Content ABG Base Excess A-a Gradient Oxyhemoglobin Carboxyhemoglobin Methemoglobin Reduced Hemoglobin Total Hemoglobin O2 Delivery Device O2 Liters/Min Minute Volume Vent Rate Vent Mode FiO2 Tidal Volume PEEP Peak Inspir Pressure Pressure Support Sodium Potassium Chloride Carbon Dioxide Anion Gap BUN Creatinine Estim Creat Clear Calc Estimated GFR Glucose POC Capillary Glucose 347 H 331 H Calcium Magnesium Total Bilirubin AST ALT Alkaline Phosphatase Total Protein Albumin Triglycerides Ur Random Sodium Urine Creatinine Vancomycin Trough 18.9 03/31/24 03/31/24 03/31/24 00:06 03:58 05:09 WBC RBC Hgb Hct MCV MCH MCHC RDW Plt Count MPV Immature Gran % (Auto) Neut % (Auto) Lymph % (Auto) [place] % (Auto) Eos % (Auto) Baso % (Auto) Lymph # (Auto) [place] # (Auto) Eos # (Auto) Baso # (Auto) Abs Immat Gran (auto) Absolute Neuts (auto) Absolute Nucleated RBC Nucleated RBC % Platelet Estimate Anisocytosis [place] Cells Schistocytes Puncture Site Left radial ABG pH 7.331 L ABG pCO2 53.0 H ABG pO2 70.4 L ABG PO2/FiO2 Ratio 1.76 ABG HCO3 27.4 H ABG O2 Saturation 92.8 L ABG O2 Content 15.0 L ABG Base Excess 0.8 A-a Gradient 153.9 Oxyhemoglobin 93.3 Carboxyhemoglobin 0.0 Methemoglobin 0.3 Reduced Hemoglobin 6.4 H Total Hemoglobin 11.4 L O2 Delivery Device Ventilator O2 Liters/Min Not Reportable Minute Volume Not Reportable Vent Rate 22 Vent Mode Cmv FiO2 40 Tidal Volume 400 PEEP 12 Peak Inspir Pressure Not Reportable Pressure Support Not Reportable Sodium Potassium Chloride Carbon Dioxide Anion Gap BUN Creatinine Estim Creat Clear Calc Estimated GFR Glucose POC Capillary Glucose 327 H 335 H Calcium Magnesium Total Bilirubin AST ALT Alkaline Phosphatase Total Protein Albumin Triglycerides Ur Random Sodium Urine Creatinine Vancomycin Trough 03/31/24 05:36 WBC 7.2 RBC 3.46 L Hgb 10.4 L Hct 32.5 L MCV 93.9 MCH 30.1 MCHC 32.0 RDW 16.4 H Plt Count 165 MPV 10.4 Immature Gran % (Auto) 0.7 H Neut % (Auto) 94.5 H Lymph % (Auto) 2.0 L [place] % (Auto) 2.4 L Eos % (Auto) 0.0 Baso % (Auto) 0.4 Lymph # (Auto) 0.14 L [place] # (Auto) 0.2 Eos # (Auto) 0.0 Baso # (Auto) 0.0 Abs Immat Gran (auto) 0.05 H Absolute Neuts (auto) 6.8 H Absolute Nucleated RBC 0.000 Nucleated RBC % 0.0 Platelet Estimate Adequate Anisocytosis 1+ [place] Cells 1+ Schistocytes None seen Puncture Site ABG pH ABG pCO2 ABG pO2 ABG PO2/FiO2 Ratio ABG HCO3 ABG O2 Saturation ABG O2 Content ABG Base Excess A-a Gradient Oxyhemoglobin Carboxyhemoglobin Methemoglobin Reduced Hemoglobin Total Hemoglobin O2 Delivery Device O2 Liters/Min Minute Volume Vent Rate Vent Mode FiO2 Tidal Volume PEEP Peak Inspir Pressure Pressure Support Sodium 134 L Potassium 3.6 Chloride 98 Carbon Dioxide 28 Anion Gap 8 BUN 68 H D Creatinine 2.10 H Estim Creat Clear Calc 32 Estimated GFR 23 L Glucose 335 H POC Capillary Glucose Calcium 8.0 L Magnesium 2.3 Total Bilirubin 0.8 AST 718 H ALT 582 H Alkaline Phosphatase 195 H Total Protein 6.0 L Albumin 3.1 L Triglycerides Ur Random Sodium Urine Creatinine Vancomycin Trough
[2024-03-31] MEDS: AMIODARONE 360 MG/D5W 200 ML 360 MG/200 ML BAG 16.67 MG IV CONT ×2 (10:33→23:01)
--- NOTE | 2024-03-31 11:13 | PCFNICU ---
ICU Rounding Note: Pt current nutrition is Vital AF 1.2 at 60 ml/hr. Last recorded weight is 122.4 kg, weight was 148.9 kg on admit. Nursing is aware and reweighing. Bowel Motility: Last reported BM 03/26 Labs Reviewed: Glu 335, BUN 68, Cr 2.10, NA 134 Meds Noted:NovoLog, Lantus, Fentanyl, Versed. Skin: WNL Additional Notes: Patient remains on mechanical vent. Tube feedings are being tolerated of Vital AF 1.2 at 60 ml/hr. Discussed GI motility agent with [employer] Officer today, due to no BM since 03/26. Flush remains at 30 ml q 4 hours. Agree with diet orders. Following daily in ICU rounds. Will monitor weight, labs, skin, diet orders, meds, tube feeding tolerance every Thursday and Thursday.
--- NOTE | 2024-03-31 12:12 | PM.IMPN ---
Progress Note: A&P Assessment and Plan (1) Acute hypoxic respiratory failure: Code(s): J96.01 - Acute respiratory failure with hypoxia Status: Acute Assessment and Plan: Acute hypoxic respiratory failure secondary to pneumonia and possible CHF. RSV positive as well. CTA chest (03/27) showing no evidence of PE, aortic dissection, or aortic aneurysm but with extensive right lower lobe pneumonia. Probable mildly prominent reactive lymphadenopathy in the right axilla and subcarinal region. Patient was emergently intubated 03/28 CXR now showing bilateral airspace disease. Able to wean down to 40% FiO2 and PEEP 10. Continue Versed and fentanyl for sedation Wean settings as tolerated. Discussed with senior staff accountant (2) Septic shock: Code(s): A41.9 - Sepsis, unspecified organism; R65.21 - Severe sepsis with septic shock Status: Acute Assessment and Plan: Sepsis secondary to community-acquired pneumonia Blood cultures NGTD Sputum culture pending Urine Legionella and pneumococcal antigen pending Started on vancomycin, cefepime, azithromycin. PCT 4.4. MRSA nasal swab negative. RSV positive. COVID and influenza PCR negative. Weaned off vasopressin earlier this morning. She has already been weaned off Levophed Hydrocortisone for severe pneumonia and shock She receive 25% albumin Hold further crystalloids Monitor BP closely off pressors (3) Community acquired pneumonia: Code(s): J18.9 - Pneumonia, unspecified organism Status: Acute Assessment and Plan: As above (4) Atrial fibrillation with RVR: Code(s): I48.91 - Unspecified atrial fibrillation Status: Acute Assessment and Plan: Patient was given IV metoprolol and IV Cardizem with no response. She was transferred to IMU and a Cardizem drip was started with little response on heart rates. She continued to have heart rates in the 120s to 140s range. Cardizem was stopped and amiodarone was given as a bolus and a drip was started. Echo was very technically difficult study with limited views, LV EF 50-55%. TSH was normal. Echo showing EF 50-55%. Atrial fibrillation is rate controlled. Patient is anticoagulated with Eliquis Continue amiodarone infusion ordered by Cardiology (5) Diabetes: Code(s): E11.9 - Type 2 diabetes mellitus without complications Status: Chronic Assessment and Plan: The patient's blood glucose was reviewed on 03/31 Glucose remains poorly controlled. Continue AccuCheks covering with sliding scale. Hypoglycemia protocol available as needed. Continue to monitors. Lantus advacned to Q12hr (6) Altered mental status: Code(s): R41.82 - Altered mental status, unspecified Status: Acute Assessment and Plan: Likely secondary to hypoxic. Patient had CT head (03/27) that was unremarkable Repeat head CT on 03/28 again was normal. Ammonia and TSH normal She does follow commands intermitently Sedation holiday (7) VINCENT (acute kidney injury): Code(s): N17.9 - Acute kidney failure, unspecified Status: Acute Assessment and Plan: Increase in creatinine and drop in urine output likely secondary to shock Patient is overall volume overloaded Albumin bolus given once yesterday Cr worse today at 2.1 but rise is slower. Jeny <5, UCr 186 and FENa 0.03. Echo showing EF 50-55%. Renal US showing normal sized kidneys with normal renal parenchyma but with a perinephric fluid collection adjacent to the left lower pole. Hold diuretics and maintain mean arterial pressure. May need more fluid. Check UA with UCx (8) Transaminitis: Code(s): R74.01 - Elevation of levels of liver transaminase levels Status: Acute Assessment and Plan: LFTs higher today. [place] related to shock liver. RUQ US showing no acute findings. She is s/p cholecystectomy. Crestor stopped. Consider holding Amio but will defer to Cardiology. Check hepatitis panel (9) RSV (respiratory syncytial virus pneumonia): Code(s): J12.1 - Respiratory syncytial virus pneumonia Status: Acute Assessment and Plan: As above. Plan DVT prophylaxis -Eliquis Code Status - Full Code Subjective Date/time seen: 03/31/24 12:12 Interval history: 68yo female with AFib s/p SHAYY cardioversion that was unsuccessful, KAREN not using CPAP, DM, HTN and endometrial cancer who presents with shortness of breath, leg swelling and weight gain over the past few weeks. intubated and sedated. no issues overnight per RN. Able to come down on her vent settings. Review of Systems Review of Systems: ROS unobtainable: Yes unobtainable due to endotracheal tube Exam Narrative: AF 96.5 89/67 97 25 94% MV Gen - intubated and sedated HEENT - ETT and OGT secured. Chest - lbronchial BS in the right flank CV - irregularly irregular. Tele showing AFib with controlled rate. Abd - Soft, obese, +BS - Can secured draining clear yellow urine Ext - trace pedal edema Neuro - sedated. does not follows commands. PEERL Skin - Warm and dry Objective Data Vital Signs Vital Signs: Vital Signs - 24 hr 03/30/24 13:38 03/30/24 14:00 03/30/24 14:00 Temperature Pulse Rate 84 83 83 Respiratory Rate 25 H Blood Pressure 110/69 Pulse Oximetry 97 Oxygen Delivery Mechanical Ventilation Fraction of Inspired Oxygen 50 03/30/24 14:00 03/30/24 14:00 03/30/24 14:00 Temperature 98 F Pulse Rate 83 83 83 Respiratory Rate 25 H 25 H Blood Pressure 102/71 Pulse Oximetry 94 Oxygen Delivery Fraction of Inspired Oxygen 03/30/24 16:00 03/30/24 16:00 03/30/24 16:00 Temperature Pulse Rate 85 83 83 Respiratory Rate 25 H 25 H Blood Pressure 100/71 Pulse Oximetry Oxygen Delivery Fraction of Inspired Oxygen 03/30/24 16:00 03/30/24 16:00 03/30/24 16:00 Temperature Pulse Rate 83 83 Respiratory Rate 25 H Blood Pressure Pulse Oximetry 94 Oxygen Delivery Mechanical Ventilation Fraction of Inspired Oxygen 60 60 03/30/24 16:00 03/30/24 17:32 03/30/24 18:00 Temperature 97.6 F Pulse Rate 84 91 90 Respiratory Rate 25 H 25 H Blood Pressure 100/71 Pulse Oximetry 95 95 Oxygen Delivery Mechanical Ventilation Fraction of Inspired Oxygen 50 03/30/24 18:00 03/30/24 18:00 03/30/24 20:00 Temperature 97.5 F L Pulse Rate 90 90 81 Respiratory Rate 25 H 26 H Blood Pressure 100/74 100/69 Pulse Oximetry 95 Oxygen Delivery Fraction of Inspired Oxygen 03/30/24 20:00 03/30/24 20:00 03/30/24 20:00 Temperature Pulse Rate 81 81 81 Respiratory Rate 26 H Blood Pressure 100/69 100/69 Pulse Oximetry Oxygen Delivery Fraction of Inspired Oxygen 03/30/24 20:00 03/30/24 20:00 03/30/24 20:00 Temperature Pulse Rate 81 Respiratory Rate 28 H Blood Pressure Pulse Oximetry Oxygen Delivery Mechanical Ventilation Fraction of Inspired Oxygen 40 40 03/30/24 20:00 03/30/24 20:29 03/30/24 21:07 Temperature Pulse Rate 83 89 99 Respiratory Rate 29 H Blood Pressure Pulse Oximetry 100 Oxygen Delivery Mechanical Ventilation Fraction of Inspired Oxygen 50 03/30/24 21:07 03/30/24 21:48 03/30/24 22:00 Temperature Pulse Rate 99 101 H 95 Respiratory Rate 29 H Blood Pressure 81/51 L 84/55 L Pulse Oximetry Oxygen Delivery Fraction of Inspired Oxygen 03/30/24 22:00 03/30/24 22:00 03/30/24 22:00 Temperature Pulse Rate 95 95 95 Respiratory Rate 27 H 27 H Blood Pressure 84/55 L Pulse Oximetry Oxygen Delivery Fraction of Inspired Oxygen 03/30/24 22:00 03/30/24 22:00 03/30/24 22:32 Temperature 97.2 F L Pulse Rate 95 95 94 Respiratory Rate 27 H Blood Pressure 84/55 L 91/63 L Pulse Oximetry 94 Oxygen Delivery Fraction of Inspired Oxygen 03/30/24 22:32 03/30/24 23:10 03/31/24 00:00 Temperature 97.6 F Pulse Rate 94 86 89 Respiratory Rate 24 H Blood Pressure 91/63 L 99/70 L Pulse Oximetry 94 96 Oxygen Delivery Mechanical Ventilation Fraction of Inspired Oxygen 40 03/31/24 00:00 03/31/24 00:00 03/31/24 00:00 Temperature Pulse Rate 76 Respiratory Rate Blood Pressure 99/70 L Pulse Oximetry Oxygen Delivery Mechanical Ventilation Fraction of Inspired Oxygen 40 40 03/31/24 00:00 03/31/24 00:00 03/31/24 00:00 Temperature Pulse Rate 76 76 76 Respiratory Rate 24 H 24 H Blood Pressure 99/70 L Pulse Oximetry Oxygen Delivery Fraction of Inspired Oxygen 03/31/24 00:00 03/31/24 02:00 03/31/24 02:00 Temperature Pulse Rate 76 78 78 Respiratory Rate 25 H Blood Pressure 99/74 L Pulse Oximetry Oxygen Delivery Fraction of Inspired Oxygen 03/31/24 02:00 03/31/24 02:00 03/31/24 02:00 Temperature Pulse Rate 78 78 78 Respiratory Rate 25 H Blood Pressure 99/74 L Pulse Oximetry Oxygen Delivery Fraction of Inspired Oxygen 03/31/24 02:00 03/31/24 02:28 03/31/24 04:00 Temperature 97.6 F 97.5 F L Pulse Rate 78 83 82 Respiratory Rate 25 H 25 H Blood Pressure 99/74 L 96/70 L Pulse Oximetry 95 94 94 Oxygen Delivery Mechanical Ventilation Fraction of Inspired Oxygen 40 03/31/24 04:00 03/31/24 04:00 03/31/24 04:00 Temperature Pulse Rate 85 Respiratory Rate Blood Pressure Pulse Oximetry Oxygen Delivery Mechanical Ventilation Fraction of Inspired Oxygen 40 40 03/31/24 05:10 03/31/24 06:00 03/31/24 06:00 Temperature Pulse Rate 83 90 90 Respiratory Rate 25 H Blood Pressure 100/73 Pulse Oximetry 93 Oxygen Delivery Mechanical Ventilation Fraction of Inspired Oxygen 40 03/31/24 06:00 03/31/24 06:00 03/31/24 06:00 Temperature 97 F L Pulse Rate 90 90 90 Respiratory Rate 25 H 25 H Blood Pressure 100/73 Pulse Oximetry 92 Oxygen Delivery Fraction of Inspired Oxygen 03/31/24 06:01 03/31/24 08:00 03/31/24 08:00 Temperature Pulse Rate 88 90 90 Respiratory Rate 25 H Blood Pressure 100/73 Pulse Oximetry 94 Oxygen Delivery Mechanical Ventilation Fraction of Inspired Oxygen 40 03/31/24 08:00 03/31/24 08:00 03/31/24 08:00 Temperature 96.6 F L Pulse Rate 99 105 H Respiratory Rate 23 H 25 H Blood Pressure 102/72 Pulse Oximetry Oxygen Delivery Fraction of Inspired Oxygen 40 03/31/24 08:00 03/31/24 08:08 03/31/24 09:00 Temperature Pulse Rate 105 H 104 H Respiratory Rate 25 H Blood Pressure Pulse Oximetry 94 94 Oxygen Delivery Mechanical Ventilation Mechanical Ventilation Fraction of Inspired Oxygen 40 40 03/31/24 10:00 03/31/24 10:00 03/31/24 10:00 Temperature 96.5 F L Pulse Rate 90 90 95 Respiratory Rate 25 H 25 H Blood Pressure 90/67 L Pulse Oximetry 94 Oxygen Delivery Fraction of Inspired Oxygen 03/31/24 10:00 03/31/24 10:33 03/31/24 10:33 Temperature Pulse Rate 95 106 H 106 H Respiratory Rate 25 H Blood Pressure 89/67 L 89/67 L Pulse Oximetry Oxygen Delivery Fraction of Inspired Oxygen 03/31/24 11:01 Temperature Pulse Rate 97 Respiratory Rate Blood Pressure Pulse Oximetry 94 Oxygen Delivery Mechanical Ventilation Fraction of Inspired Oxygen 40 Intake/Output Intake/Output: Intake & Output 03/28/24 03/29/24 03/30/24 03/31/24 23:59 23:59 23:59 23:59 Intake Total 3420.3 2837.6 2340.0 1115.6 Output Total 1400 850 410 175 Balance 2020.3 1987.6 1930.0 940.6 Meds/Results Medications: Active Medications Generic Name Dose Route Start Last Admin Trade Name Freq PRN Reason Stop Dose Admin Acetaminophen 650 mg 03/27/24 14:41 03/29/24 05:11 Acetaminophen 325 Mg Tablet PO 650 mg Q4H PRN Administration Mild Pain (1-3) or Fever Apixaban 5 mg 03/27/24 12:35 03/31/24 09:30 Apixaban 5 Mg Tablet PO 5 mg Q12HR LAVERNE Administration Cyanocobalamin 1,000 mcg 03/27/24 17:00 03/31/24 09:30 Cyanocobalamin 1,000 Mcg Tablet PO 1,000 mcg BID LAVERNE Administration Dextrose 12.5 gm 03/27/24 08:57 Dextrose 50% 25 Gm/50 Ml Syringe IV PUSH PRN PRN Hypoglycemia Protocol Glucagon 1 mg 03/27/24 08:57 Glucagon For Inj 1 Mg Vial IM PRN PRN Hypoglycemia Protocol Glucose 15 gm 03/27/24 08:57 Glucose Oral Gel 15 Gm Of Glucse In 37.5 Gm Tube PO PRN PRN Hypoglycemia Protocol Hydrocortisone Sodium Succinate 50 mg 03/28/24 16:00 03/31/24 09:30 Hydrocortisone Sodium Succinate 100 Mg/2 Ml Vial IV PUSH 50 mg Q6H LAVERNE Administration Azithromycin 500 mg in 250 mls @ 250 mls/hr 03/28/24 06:00 03/31/24 06:05 Zithromax IVPB 03/31/24 23:59 250 mls/hr Q24H LAVERNE Administration Dextrose 1,000 mls @ 100 mls/hr 03/27/24 08:57 Dextrose 5% 1,000 Ml IVPB PRN PRN Hypoglycemia Protocol Fentanyl Citrate 2,500 mcg in 250 mls @ 5 mls/hr 03/28/24 15:45 03/31/24 10:00 Fentanyl 2,500 Mcg/Ns 250 Ml IV CONT 50 mcg/hr .Q50H LAVERNE 5 mls/hr Titration Protocol 50 MCG/HR Midazolam HCl 100 mg in 100 mls @ 3 mls/hr 03/28/24 19:30 03/31/24 10:00 Versed 100 Mg/Ns 100 Ml IV CONT 3 mg/hr .[id number] LAVERNE 3 mls/hr Titration Protocol 3 MG/HR Amiodarone HCl/Dextrose 360 mg in 200 mls @ 16.667 mls/hr 03/28/24 23:15 03/31/24 10:33 Nexterone 360 Mg/D5w 200 Ml IV CONT 0.5 mg/min .Q12H LAVERNE 16.67 mls/hr Administration 0.5 MG/MIN Cefepime HCl 2 gm in 50 mls @ 100 mls/hr 03/30/24 18:00 03/31/24 06:05 Maxipime 2 Gm/Ns 50 Ml IVPB 04/02/24 23:59 Infused Q12H LAVERNE Infusion Insulin Aspart 4 - 8 units 03/29/24 13:00 03/31/24 09:32 Insulin Aspart (*Bkc) 100 Units/Ml SUB-Q 6 units Q4HR LAVERNE Administration Protocol Insulin Glargine 50 units 03/31/24 09:00 03/31/24 09:33 Insulin Glargine (*Bkc) 100 Units/Ml SUB-Q 50 units QAM LAVERNE Administration Multi-Ingred Cream/Lotion/Oil/Oint 1 applic 03/28/24 21:00 03/31/24 09:30 Mineral Oil/White Petrolatum Ointment EACH EYE 1 applic Q12HR LAVERNE Administration Pantoprazole Sodium 40 mg 03/29/24 09:00 03/31/24 09:30 Pantoprazole Sodium Iv 40 Mg Vial IV PUSH 40 mg DAILY LAVERNE Administration Rosuvastatin Calcium 20 mg 03/28/24 09:00 03/31/24 09:28 Rosuvastatin 20 Mg Tablet PO Not Given DAILY LAVERNE Sodium Chloride 10 ml 03/28/24 22:00 03/31/24 05:40 Central Line Flush IV PUSH 10 ml Q8HR LAVERNE Administration Sodium Chloride 10 ml 03/28/24 16:14 Central Line Flush IV PUSH PRN PRN with TPN bag changes Sodium Chloride 20 ml 03/28/24 16:14 Central Line Flush IV PUSH PRN PRN after blood draws Radiology Results: ITS Impressions Chest CTA 03/27/24 06:41 Impression: No evidence of pulmonary embolus, aortic dissection, or aortic aneurysm. Extensive right lower lobe pneumonia. Probable mildly prominent reactive lymphadenopathy the right axilla and subcarinal region. Head CT 03/28/24 22:59 IMPRESSION: 1. Normal brain. Abdomen X-Ray 03/29/24 08:59 IMPRESSION: 1. Lines and tubes in expected positions. 2. Diffuse bilateral lung disease, right greater than left, consistent with multifocal pneumonia. Chest X-Ray 03/31/24 05:39 Impression: 1: Persistent diffuse bilateral airspace disease without significant change, edema versus pneumonia. Labs Labs: Laboratory Results - last 24 hr 03/30/24 03/30/24 03/30/24 06:19 17:28 20:57 WBC RBC Hgb Hct MCV MCH MCHC RDW Plt Count MPV Immature Gran % (Auto) Neut % (Auto) Lymph % (Auto) [place] % (Auto) Eos % (Auto) Baso % (Auto) Lymph # (Auto) [place] # (Auto) Eos # (Auto) Baso # (Auto) Abs Immat Gran (auto) Absolute Neuts (auto) Absolute Nucleated RBC Nucleated RBC % Platelet Estimate Anisocytosis Kathy Cells Schistocytes Puncture Site ABG pH ABG pCO2 ABG pO2 ABG PO2/FiO2 Ratio ABG HCO3 ABG O2 Saturation ABG O2 Content ABG Base Excess A-a Gradient Oxyhemoglobin Carboxyhemoglobin Methemoglobin Reduced Hemoglobin Total Hemoglobin O2 Delivery Device O2 Liters/Min Minute Volume Vent Rate Vent Mode FiO2 Tidal Volume PEEP Peak Inspir Pressure Pressure Support Sodium Potassium Chloride Carbon Dioxide Anion Gap BUN Creatinine Estim Creat Clear Calc Estimated GFR Glucose POC Capillary Glucose 347 H 331 H Calcium Magnesium Total Bilirubin AST ALT Alkaline Phosphatase Total Protein Albumin Triglycerides 97 Vancomycin Trough 03/30/24 03/31/24 03/31/24 21:02 00:06 03:58 WBC RBC Hgb Hct MCV MCH MCHC RDW Plt Count MPV Immature Gran % (Auto) Neut % (Auto) Lymph % (Auto) [place] % (Auto) Eos % (Auto) Baso % (Auto) Lymph # (Auto) [place] # (Auto) Eos # (Auto) Baso # (Auto) Abs Immat Gran (auto) Absolute Neuts (auto) Absolute Nucleated RBC Nucleated RBC % Platelet Estimate Anisocytosis [place] Cells Schistocytes Puncture Site ABG pH ABG pCO2 ABG pO2 ABG PO2/FiO2 Ratio ABG HCO3 ABG O2 Saturation ABG O2 Content ABG Base Excess A-a Gradient Oxyhemoglobin Carboxyhemoglobin Methemoglobin Reduced Hemoglobin Total Hemoglobin O2 Delivery Device O2 Liters/Min Minute Volume Vent Rate Vent Mode FiO2 Tidal Volume PEEP Peak Inspir Pressure Pressure Support Sodium Potassium Chloride Carbon Dioxide Anion Gap BUN Creatinine Estim Creat Clear Calc Estimated GFR Glucose POC Capillary Glucose 327 H 335 H Calcium Magnesium Total Bilirubin AST ALT Alkaline Phosphatase Total Protein Albumin Triglycerides Vancomycin Trough 18.9 03/31/24 03/31/24 05:09 05:36 WBC 7.2 RBC 3.46 L Hgb 10.4 L Hct 32.5 L MCV 93.9 MCH 30.1 MCHC 32.0 RDW 16.4 H Plt Count 165 MPV 10.4 Immature Gran % (Auto) 0.7 H Neut % (Auto) 94.5 H Lymph % (Auto) 2.0 L [place] % (Auto) 2.4 L Eos % (Auto) 0.0 Baso % (Auto) 0.4 Lymph # (Auto) 0.14 L [place] # (Auto) 0.2 Eos # (Auto) 0.0 Baso # (Auto) 0.0 Abs Immat Gran (auto) 0.05 H Absolute Neuts (auto) 6.8 H Absolute Nucleated RBC 0.000 Nucleated RBC % 0.0 Platelet Estimate Adequate Anisocytosis 1+ Kathy Cells 1+ Schistocytes None seen Puncture Site Left radial ABG pH 7.331 L ABG pCO2 53.0 H ABG pO2 70.4 L ABG PO2/FiO2 Ratio 1.76 ABG HCO3 27.4 H ABG O2 Saturation 92.8 L ABG O2 Content 15.0 L ABG Base Excess 0.8 A-a Gradient 153.9 Oxyhemoglobin 93.3 Carboxyhemoglobin 0.0 Methemoglobin 0.3 Reduced Hemoglobin 6.4 H Total Hemoglobin 11.4 L O2 Delivery Device Ventilator O2 Liters/Min Not Reportable Minute Volume Not Reportable Vent Rate 22 Vent Mode Cmv FiO2 40 Tidal Volume 400 PEEP 12 Peak Inspir Pressure Not Reportable Pressure Support Not Reportable Sodium 134 L Potassium 3.6 Chloride 98 Carbon Dioxide 28 Anion Gap 8 BUN 68 H D Creatinine 2.10 H Estim Creat Clear Calc 32 Estimated GFR 23 L Glucose 335 H POC Capillary Glucose Calcium 8.0 L Magnesium 2.3 Total Bilirubin 0.8 AST 718 H ALT 582 H Alkaline Phosphatase 195 H Total Protein 6.0 L Albumin 3.1 L Triglycerides Vancomycin Trough
--- NOTE | 2024-03-31 12:25 | P.CONNP_ITS ---
Assessment and Plan Assessment and plan (1) VINCENT (acute kidney injury): Code(s): N17.9 - Acute kidney failure, unspecified Status: Acute Assessment and Plan: * as noted by trend of labs since admission * normal creatinine at baseline and on admission * multifactorial etiology: * hemodynamic instability/shock * infection/sepsis (pneumonia + RSV) * ARB + HCTZ use prior to admission * contrast (CTA of chest on 03/27) * hypoxia * afib with RVR * prerenal factors (?) * agree with urine studies and renal ultrasound * volume expansion with IV albumin (given concerns for volume overload) * holding diuretics * optimize hemodynamics * remains at risk for [facility]/dialysis * follow trend of repaqt labs and UOP (2) Acute hypoxic respiratory failure: Code(s): J96.01 - Acute respiratory failure with hypoxia Status: Acute Assessment and Plan: * seconeary to pneumonia, RSV, and possible CHF * CTA of chest noted: * no evidence of pulmonary embolus, aortic dissection, or aortic aneurysm * extensive right lower lobe pneumonia * robable mildly prominent reactive lymphadenopathy the right axilla and subcarinal region * emergently intubated 03/28 * on steroids * follow respiratory status (3) Septic shock: Code(s): A41.9 - Sepsis, unspecified organism; R65.21 - Severe sepsis with septic shock Status: Acute Assessment and Plan: * secondary to extensive pneumonia +/- RSV * follow culture data (negative to date) * on antibiotics * was on vasopressor therapy (has since been weaned off) * on steroids * follow hemodynamics (4) Atrial fibrillation with RVR: Code(s): I48.91 - Unspecified atrial fibrillation Status: Acute Assessment and Plan: * rate control strategy * on amiodarone * on Eliquis * Echo results noted * Cardiology following (5) Anemia: Code(s): D64.9 - Anemia, unspecified Status: Acute Assessment and Plan: * likely a manifestation of VINCENT and acute illness * follow trend of H/H for now (6) Community acquired pneumonia: Code(s): J18.9 - Pneumonia, unspecified organism Status: Acute Assessment and Plan: * as noted by admission imaging * follow cultures * on antibiotics (7) Elevated liver enzymes: Code(s): R74.8 - Abnormal levels of other serum enzymes Status: Acute Assessment and Plan: * thought to be secondary to shock liver * statin on hold * follow trend of liver enzymes (8) Diabetes: Code(s): E11.9 - Type 2 diabetes mellitus without complications Status: Chronic Assessment and Plan: * follow accu-cheks * glycemic control per hospitalist/wood floor refinisher Long and extensive discussion (> 25 minutes) with daughter/family at bedside regarding her acute renal failure -- no critical electrolytes or worsening metabolic acidosis but her volume status is becoming an issues which is further complicated by her diminishing urine output. I discussed the possible need for renal replacement therapy/dialysis in detail and the hope that dialysis would be a temporary measure given her normal renal function at baseline but difficult to know for sure. Her daughter and family appeared to voice understanding. Case discussed with Dr. Robertson as well. I will continue to follow the patient with you while she remains hospitalized and make further recommendations as deemed necessary. Thank you for allowing me to participate in the care of this patient. L History of Present Illness Reason for Consult Consult date: 03/31/24 Reason for consult: acute renal failure Chief Complaint Chief complaint: Community-acquired pneumonia, AFib, hypoxia History of Present Illness Narrative: All of the information I have obtained is from review of the electronic medical record as well as discussion with the physician/nurses involved the patient's care is I am unable to get any history from the patient as she is currently intubated and on mechanical ventilation. The patient is a 68-year-old female past medical history as outlined below who presented to [facility] Emergency Room with complaints of weakness, shortness of breath, and palpitations. The patient apparently had a new diagnosis of atrial fibrillation January 2024 and she apparently had a SHAYY with cardioversion at that time at [facility] by Dr. Castillo. She apparently was in normal sinus rhythm for about a week afterwards but then converted back to atrial fibrillation and apparently there was a tentative plan for another cardioversion sometime soon. However, more recently, she has felt increased palpitations in association with shortness of breath and weakness along with a productive cough last week if not longer. She reports no fevers, chills, body aches, nausea, or vomiting. She recently lost her balance and had a ground level fall and denies any dizziness, lightheadedness, or chest pain prior to or after the fall and denies loss of consciousness as well. She was subsequently transported to the ER for further assessment Workup and evaluation emergency room demonstrated the patient to be in atrial fibrillation with RVR which was felt to be the etiology of her palpitations and possibly her shortness of breath as well as her recent fall. She was initiated on diltiazem drip and subsequently admitted to IMU. However, it was also noted that she was somewhat hypoxic and her chest x-ray demonstrated bilateral pulmonary edema versus pneumonia. After appropriate cultures were obtained, she was started antibiotics. Cardiology was consulted for atrial fibrillation and attempts were made at rate control 1st with beta-kelly therapy and subsequent with an amiodarone infusion. Unfortunately, her respiratory status continued to worsen required almost 8 L of oxygen by nasal cannula. A few days ago, while in the bed and, she became more attended with worsening hypoxia and altered mental status. She was subsequently transferred to the ICU where she was immediately intubated and placed on mechanical ventilation for impending respiratory failure. Since her admission to the ICU, she was initially septic requiring vasopressor therapy to maintain her MAP/blood pressure. She was continued on broad-spectrum IV antibiotics for her pneumonia possibly complicated by her RSV infection as well. At the current time, vasopressor therapy has been weaned off and her hemodynamics have remained stable however her renal function has been deteriorating in association with declining urine output. Renal consultation was requested due to her acute kidney injury/acute renal failure. From review of her records, both on admission and previously, her renal function was well within normal limits. The presumed etiology of her acute kidney injury/ acute renal failure is thought to be hemodynamic instability/ shock and resulting renal hypoperfusion and subsequent ATN. Although she has no critical electrolyte abnormalities, her declining urine output is of concern and she is already has evidence of volume overload by exam and chest x-ray. Currently, the time my evaluation, she remains intubated/sedated and on mechanical ventilation. Review of Systems 2 Review of Systems: As per HPI. [facility] Past Medical History Medical History (Updated 03/31/24 @ 16:39 by Beck Cortez MD) Atrial fibrillation History of endometrial cancer Sleep apnea does not use CPAP High cholesterol Diabetes Hypertension Surgical History Surgical History History of total hysterectomy (~2018) History of cholecystectomy (~1998) History of 1977, 1983, 1990 Family History Family History Mother Uterine cancer Daughter Thyroid cancer Sibling Spinal cord cancer Social History Social History Social History: Patient lives at home with her . No pets in the home. Smoking status: Never smoker Alcohol intake: current Alcohol use details: occasional. Less than once a month. Substance use: never Substance use type: does not use Do You Feel Safe in your Home?: Yes Lack of Transportation: No Lack of Food: Never True Current Housing: I Have Housing Concerned About Future Housing: No Difficulty Paying Gas/Electric Bills: No Difficulty Paying for Meds: YES Currently Unemployed: No Education: Trade/Vocational Certificate Difficulty w/ Childcare or Family Care: No Living arrangements: with family Spiritual care concerns: No Meds Home Medications and Allergies Home Medications ?Medication ?Instructions ?Recorded ?Confirmed ?Type losartan 100 1 tablet PO DAILY 03/19/22 03/27/24 History mg-hydrochlorothiazide 25 mg tablet metformin 500 mg tablet 500 mg PO BID 03/19/22 03/27/24 History metoprolol tartrate 25 mg tablet 25 mg PO BID 03/19/22 03/27/24 History rosuvastatin 20 mg tablet 20 mg PO DAILY 01/01/23 03/27/24 History ezetimibe 10 mg tablet 10 mg PO DAILY 01/07/23 03/27/24 History cyanocobalamin (vitamin B-12) 2 tablet PO DAILY 01/06/24 03/27/24 History apixaban 5 mg tablet (Eliquis) 5 mg PO Q12H 03/27/24 03/27/24 History tirzepatide 2.5 mg/0.5 mL 2.5 mg subcut WEEKLY 03/27/24 03/27/24 History subcutaneous pen injector (Mounjaro) Allergies Allergy/AdvReac Type Severity Reaction Status Date / Time No Known Allergies Allergy Verified 03/27/24 11:06 Vital Signs Vital Signs Temp Pulse Resp BP Pulse Ox O2 Del Method FiO2 03/31/24 12:00 96.9 F L 89 25 H 96/63 L 94 03/31/24 12:00 40 03/31/24 12:00 97 03/31/24 12:00 89 25 H 94 Mechanical Ventilation 40 03/31/24 11:01 97 94 Mechanical Ventilation 40 03/31/24 10:33 106 H 89/67 L 03/31/24 10:33 106 H 89/67 L 03/31/24 10:00 95 25 H 03/31/24 10:00 95 25 H 03/31/24 10:00 96.5 F L 90 25 H 90/67 L 94 03/31/24 10:00 90 03/31/24 09:00 94 Mechanical Ventilation 40 03/31/24 08:08 104 H 94 Mechanical Ventilation 40 03/31/24 08:00 105 H 25 H 03/31/24 08:00 105 H 25 H 03/31/24 08:00 96.6 F L 99 23 H 102/72 03/31/24 08:00 40 03/31/24 08:00 90 03/31/24 08:00 90 25 H 94 Mechanical Ventilation 40 03/31/24 06:01 88 100/73 03/31/24 06:00 97 F L 90 25 H 100/73 92 03/31/24 06:00 90 03/31/24 06:00 90 25 H 03/31/24 06:00 90 100/73 03/31/24 06:00 90 25 H 03/31/24 05:10 83 93 Mechanical Ventilation 40 03/31/24 04:00 40 03/31/24 04:00 85 03/31/24 04:00 Mechanical Ventilation 03/31/24 04:00 97.5 F L 82 25 H 96/70 L 94 03/31/24 02:28 83 94 Mechanical Ventilation 40 03/31/24 02:00 97.6 F 78 25 H 99/74 L 95 03/31/24 02:00 78 03/31/24 02:00 78 25 H 03/31/24 02:00 78 99/74 L 03/31/24 02:00 78 25 H 03/31/24 02:00 78 99/74 L 03/31/24 00:00 76 03/31/24 00:00 76 24 H 03/31/24 00:00 76 99/70 L 03/31/24 00:00 76 24 H 03/31/24 00:00 76 99/70 L 03/31/24 00:00 40 03/31/24 00:00 Mechanical Ventilation 40 03/31/24 00:00 97.6 F 89 24 H 99/70 L 96 03/30/24 23:10 86 94 Mechanical Ventilation 40 03/30/24 22:32 94 91/63 L 03/30/24 22:32 94 91/63 L 03/30/24 22:00 97.2 F L 95 27 H 84/55 L 94 03/30/24 22:00 95 03/30/24 22:00 95 84/55 L 03/30/24 22:00 95 27 H 03/30/24 22:00 95 27 H 03/30/24 22:00 95 84/55 L 03/30/24 21:48 101 H 81/51 L 03/30/24 21:07 99 29 H 03/30/24 21:07 99 29 H 03/30/24 20:29 89 100 Mechanical Ventilation 50 03/30/24 20:00 83 03/30/24 20:00 40 03/30/24 20:00 Mechanical Ventilation 40 03/30/24 20:00 81 28 H 03/30/24 20:00 81 100/69 03/30/24 20:00 81 100/69 03/30/24 20:00 81 26 H 03/30/24 20:00 97.5 F L 81 26 H 100/69 95 03/30/24 18:00 90 25 H 03/30/24 18:00 90 100/74 03/30/24 18:00 90 25 H 03/30/24 17:32 91 95 Mechanical Ventilation 50 03/30/24 16:00 97.6 F 84 25 H 100/71 95 03/30/24 16:00 60 03/30/24 16:00 83 03/30/24 16:00 83 25 H 94 Mechanical Ventilation 60 03/30/24 16:00 83 25 H 03/30/24 16:00 83 100/71 03/30/24 16:00 85 25 H Exam 2 Narrative: GENERAL APPEARANCE: elderly female intubated/sedated and on mechanical ventilation HEENT: normocephalic, atraumatic, normal conjunctiva and sclera, nares patient NECK: no lymphadenopathy, thyromegaly, or JVD MOUTH: normal lips, teeth, and gums; ETT/OGT in place CARDIOVASCULAR: IRRR, normal S1 and S2, no rub RESPIRATORY: coarse breath sounds with a few bibasilar crackles ABDOMEN: soft, nontender, nondistended, positive bowel sounds present EXTREMITIES: no evidence of cyanosis, clubbing; trace edema NEUROLOGICAL: unable to assess Results Lab Results 04/01/24 04:09 04/02/24 05:17 Lab results: Most recent lab results ABG pH 7.331 (7.350-7.450) L 03/31/24 05:09 ABG pCO2 53.0 mmHg (35.0-45.0) H 03/31/24 05:09 ABG pO2 70.4 mmHg (80.0-100.0) L 03/31/24 05:09 ABG HCO3 27.4 mEq/l (22.0-26.0) H 03/31/24 05:09 ABG O2 Saturation 92.8 % (95.0-100.0) L 03/31/24 05:09 Calcium 8.0 mg/dL (8.4-10.2) L 03/31/24 05:36 Magnesium 2.3 mg/dL (1.6-2.3) 03/31/24 05:36 Urine Creatinine 186.0 mg/dL 03/30/24 10:54
[2024-03-31 13:14] LABS: Glucose Point of Care 407 mg/dl (65-105)
[2024-03-31] MEDS: INSULIN HUMAN REGULAR (*BKC) 100 UNITS/ML 10 UNITS IV PUSH (13:35)
[2024-03-31 16:29] LABS: Pneumococcal Antigen Urine NOT DETECTED
[2024-03-31 17:12] LABS: Eosinophil Urine None Seen % (None Seen); Urine Eos QC 2nd Tech Confirmed
[2024-03-31 17:18] LABS: Glucose Point of Care 353 mg/dl (65-105)
[2024-03-31 17:18] LABS: Total Protein Urine Random 101 mg/dL; Urea Random Urine 549 MG/DL
[2024-03-31 17:20] LABS: Add Urine Microscopic? YES; Appearance Urine Turbid (Clear); Bilirubin Urine Negative (Negative); Blood Urine 2+ (Negative); Color Urine Yellow (Yellow); Glucose Urine UA 1+ mg/dL (Negative); Ketones Urine Trace mg/dL (Negative); Leukocyte Esterase Ur Negative LEU/UL (Negative); Mucus Urine Present /lpf; Need Manual Microscopic Reviewed; Nitrate Urine Negative (Negative); Protein Urine 2+ mg/dL (Negative); Specific Grav Ur 1.024 (1.001-1.035); Urobilinogen Urine 0.2 mg/dL (<2.0); WBC Urine 21-50 /hpf (0-3)
[2024-03-31 17:21] LABS: Amorphous Sediment Urine Moderate
[2024-03-31 17:24] LABS: Bacteria Urine Trace /hpf; Squamous Epithelial Cell Urine Moderate /hpf (Few)
[2024-03-31 17:27] LABS: Non Pathogenic Casts Present
[2024-03-31] MEDS: INSULIN GLARGINE (*BKC) 100 UNITS/ML 30 UNITS SUB-Q (20:15)
[2024-03-31 20:40] LABS: Glucose Point of Care 345 mg/dl (65-105)
[2024-04-01] VITALS (31 sets, daily range): BP systolic 95–120; BP diastolic 50–77; PULSE 75–115; RESP 18–30; TEMP 36–36.4; O2SAT 91–97
[2024-04-01] MEDS: INSULIN ASPART (*BKC) 100 UNITS/ML SUB-Q ×2 (00:01→05:00)
[2024-04-01 00:33] LABS: Glucose Point of Care 342 mg/dl (65-105)
[2024-04-01 01:09] LABS: Legionella pneumophila Ag Ur NOT DETECTED
[2024-04-01 04:23] LABS: Basophils Absolute Auto 0.1 K/mm3 (0.0-0.1); Basophils Percent Auto 0.8 % (0.2-1.2); Eosinophils Percent Auto 0.2 % (0-4.4); Hematocrit 35.1 % (37.0-47.0); Hemoglobin 11.6 g/dL (12.0-15.0); Immature Granulocyte Absolute 0.23 K/mm3 (0.00-0.031); Immature Granulocyte Percent A 2.4 % (0-0.5); Lymphocytes Absolute Auto 0.22 K/mm3 (0.9-3.2); Lymphocytes Percent Auto 2.2 % (18.3-44.2); Mean Corpuscular Hemoglobin 30.4 pg (26-34); Mean Corpuscular Volume 91.9 fl (80-100); Mean Platelet Volume 10.6 fl (7.4-10.4); Monocytes Absolute Auto 0.3 K/mm3 (0.1-0.6); Monocytes Percent Auto 2.9 % (2.6-8.5); Neutrophils Percent Auto 91.5 % (45.5-73.1); Platelet Count Result 201 k/mm3 (150-375); Red Blood Count 3.82 M/mm3 (4.2-5.4); Red Cell Distribution Width 16.6 % (11.5-14.5); White Blood Count 9.8 K/mm3 (4.5-10.0)
[2024-04-01 04:41] LABS: Alanine Aminotransferase 720 U/L (6-35); Albumin Level 2.9 g/dL (3.5-5.1); Alkaline Phosphatase 245 U/L (38-126); Anion Gap 10 mmol/L (4-12); Aspartate Amino Transferase 346 U/L (14-36); Bilirubin,Total 0.8 mg/dL (0.2-1.3); Blood Urea Nitrogen 90 mg/dL (7-17); Calcium 8.5 mg/dL (8.4-10.2); Carbon Dioxide 26 mmol/L (22-30); Chloride 97 mmol/L (98-107); Estimated CRCL calculation 27 ml/min; Estimated Glomerular Filt Rate 19; Glucose 375 mg/dL (65-110); Magnesium 2.5 mg/dL (1.6-2.3); Potassium 3.9 mmol/L (3.4-5.0); Sodium 133 mmol/L (137-145)
[2024-04-01] MEDS: HYDROCORTISONE SODIUM SUCCINATE 100 MG/2 ML VIAL 50 MG IV PUSH ×3 (04:47→20:27)
[2024-04-01] MEDS: CENTRAL LINE FLUSH 10 ML IV PUSH ×3 (05:01→20:27)
[2024-04-01] MEDS: CEFEPIME 2 GM/NS 50 ML 2 GM/50 ML BAG IVPB ×2 (05:01→17:44)
[2024-04-01 05:03] LABS: Burr Cells 1+; Ovalocytes 1+; Platelet Estimate Adequate (Adequate); Poikilocytosis 1+; Schistocytes None Seen
[2024-04-01 05:07] LABS: Hepatitis B Surface Antigen Negative (Negative)
[2024-04-01] MEDS: MIDAZOLAM 100MG/NS 100ML(*CRX) 100 MG/100 ML BAG IV CONT (05:07)
[2024-04-01 05:08] LABS: Hepatitis B Surface Antigen Negative (Negative)
[2024-04-01] MEDS: FENTANYL 2,500MCG/NS250ML(*CRX 2,500 MCG/250 ML BAG 10 MCG IV CONT (05:08)
[2024-04-01 05:13] LABS: HAV RESULT Negative (Negative); Hepatitis B Core IgM Result Negative (Negative)
[2024-04-01 05:24] LABS: Hepatitis B Surface Anti Res Negative
[2024-04-01 05:25] LABS: Hepatitis C Virus Antibody Negative (Negative)
[2024-04-01 05:29] LABS: Alveolar/Arterial O2 Gradient 167.3 mmHg; Base Excess ABG -2.4 mEq/l (+/-2.0); Fractional Inspired Oxygen 40 %; HCO3 ABG 22.7 mEq/l (22.0-26.0); Oxygen Content ABG 15.3 %vol (16.0-22.0); Oxyhemoglobin 92.2 % THb (90.0-100.0); PCO2 ABG 40.4 mmHg (35.0-45.0); PO2 ABG 71.4 mmHg (80.0-100.0); PO2 FiO2 Ratio Arterial Blood 1.79 %; Total Hemoglobin 11.8 g/dL (12.0-18.0); pH ABG 7.368 (7.350-7.450)
[2024-04-01 05:30] LABS: Arterial Blood Gas PEEP 10 cmH2O; Arterial Blood Gas Tidal Volume 400 ml; Arterial Blood Gas Vent Mode CMV; Arterial Blood Gas Ventilator rate 24 /MIN; Device VENTILATOR; Modified Allen's Test Pass; Site Drawn RIGHT RADIAL
[2024-04-01 08:21] LABS: Glucose Point of Care 412 mg/dl (65-105)
--- NOTE | 2024-04-01 08:38 | WPDINTPN ---
Progress Note: A&P Assessment and Plan (1) Acute hypoxic respiratory failure: Code(s): J96.01 - Acute respiratory failure with hypoxia Status: Acute Assessment and Plan: Acute hypoxic respiratory failure secondary to pneumonia and possible component congestive heart failure 03/27 CTA chest No evidence of pulmonary embolus, aortic dissection, or aortic aneurysm. Extensive right lower lobe pneumonia. Probable mildly prominent reactive lymphadenopathy the right axilla and subcarinal region. Patient now emergently intubated 03/28 Chest x-ray and ABG reviewed Currently PEEP to 10 and FiO2 is down to 40 per Hold further crystal IV fluid Continue Versed and fentanyl for sedation Repeat PCR was positive RSV -isolation Hydrocortisone for severe pneumonia and shock -start taper (2) Sepsis: Code(s): A41.9 - Sepsis, unspecified organism Status: Acute Assessment and Plan: Sepsis secondary to community-acquired pneumonia Blood cultures ordered and negative till now Pain sputum culture Urine Legionella and pneumococcal antigen negative Continue empiric cefepime azithromycin. procalcitonin level 4.4 MRSA screen negative. Vancomycin discontinued (3) Diabetes: Code(s): E11.9 - Type 2 diabetes mellitus without complications Status: Chronic Assessment and Plan: Sliding scale insulin Increase dose of Lantus to 60 units q.12 Steroid dose is being decreased which may help with blood sugar control Continue tube feed (4) Atrial fibrillation with RVR: Code(s): I48.91 - Unspecified atrial fibrillation Status: Acute Assessment and Plan: Currently on amiodarone infusion ordered by Cardiology Patient is anticoagulated with Eliquis Echo Summary 1. Very technically difficult study with limited views. 2. Left ventricular chamber dimension is normal. 3. Left ventricular systolic function is at lower limits of normal, estimated at 50-55%. 4. Left atrial chamber dimension is moderately enlarged Will discuss switching to p.o. (5) Community acquired pneumonia: Code(s): J18.9 - Pneumonia, unspecified organism Status: Acute Assessment and Plan: See above (6) Altered mental status: Code(s): R41.82 - Altered mental status, unspecified Status: Acute Assessment and Plan: Likely secondary to hypoxic. Patient had CT scan of the head recently done which was unremarkable Repeat head CT on 03/28 was again on remark And ammonia normal TSH was normal (7) Electrolyte abnormality: Code(s): E87.8 - Other disorders of electrolyte and fluid balance, not elsewhere classified Status: Acute Assessment and Plan: Improved after placement (8) Shock: Code(s): R57.9 - Shock, unspecified Status: Acute Assessment and Plan: Patient was on Levophed and vasopressin infusion which are currently off Continue hydrocortisone but start tapering She did receive 25% albumin Hold further crystalloids (9) VINCENT (acute kidney injury): Code(s): N17.9 - Acute kidney failure, unspecified Status: Acute Assessment and Plan: Increase in creatinine and drop in urine output likely secondary to shock Patient is overall volume overloaded hence holding crystalloid Patient received 5% albumin bolus norm CK level Renal ultrasound showed No hydronephrosis. Perinephric fluid collection adjacent to the left lower pole. Nephrology consulted Hold diuretics and maintain mean arterial pressure with vasopressors Creatinine increased to 2.5 Patient oliguric although still producing some urine. Will wait another 24 hours to see outpatient progresses. May need dialysis. Improved Eliquis in anticipation of patient needing dialysis catheter insertion (10) Elevated liver enzymes: Code(s): R74.8 - Abnormal levels of other serum enzymes Status: Acute Assessment and Plan: Patient is status post cholecystectomy Elevated AST ALT and alkaline phosphatase likely secondary to shock liver Hold statin Right upper quadrant ultrasound - Status post cholecystectomy. Pancreas poorly visualized. Otherwise normal abdominal ultrasound findings. Monitor Plan DVT prophylaxis -Eliquis Stress ulcer prophylaxis -protonix Nutrition -continue tube feed Code Status - Full Code 03/31 I spoke to patient's and daughter at bedside and updated them with patient's current status including septic shock, respiratory failure, AFib with RVR, VINCENT and worsening renal function and possibility of patient needing dialysis. We also discussed her elevated liver enzymes. I answered all their question Case also discussed with hospitalist 04/01-updated at bedside answered all his questions. Total Critical Care Time - 35 minutes Due to a high probability of clinically significant, life threatening deterioration, the patient required my highest level of preparedness to intervene emergently and I personally spent this critical care time directly and personally managing the patient. This critical care time included obtaining a history; examining the patient; pulse oximetry; ordering and review of studies; arranging urgent treatment with development of a management plan; evaluation of patient's response to treatment; frequent reassessment; and discussions with other providers. It was exclusive of separately billable procedures and treating other patients and teaching time. Please see Assessment and Plan section and the rest of the note for further information on patient assessment and treatment Subjective Date/time seen: 04/01/24 Overnight events reviewed. Afebrile Continues to be on mechanical ventilation 10 of PEEP and 40% FiO2 Off vasopressors Continues to be sedated with Versed and fentanyl Urine output low Tolerating tube feed Blood glucose elevated Interval history: 68yo female with AFib s/p SHAYY cardioversion that was unsuccessful, KAREN not using CPAP, DM, HTN and endometrial cancer who presents with shortness of breath, leg swelling and weight gain over the past few weeks. Now in with respiratory failure secondary to pneumonia with septic shock. Intubated and on mechanical ventilation Review of Systems Review of Systems: ROS unobtainable: Yes unobtainable due to endotracheal tube, unobtainable due to medical condition and unobtainable due to mental status Exam Narrative: General: Pt is now sedated, intubated and on mechanical ventilation peer Lungs/Chest: Trachea central Coarse BS B/L, Cardiac: RRR. Normal S1 S2. No murmurs Circulation: Pedal pulses are intact and symmetrical. Abdomen: Decreased bowel sounds. Morbidly Obese. Soft. NT. ND. Extremities: No clubbing, cyanosis or bilateral pitting edema present : Can in place Neurologic: Unable to assess due to emergent situation. PERRL Objective Data Vital Signs Vital Signs: Vital Signs - 24 hr 03/31/24 09:00 03/31/24 10:00 03/31/24 10:00 Temperature 35.8 C L Pulse Rate 90 90 Respiratory Rate 25 H Blood Pressure 90/67 L Pulse Oximetry 94 94 Oxygen Delivery Mechanical Ventilation Fraction of Inspired Oxygen 40 03/31/24 10:03/31/24 10:00 03/31/24 10:33 Temperature Pulse Rate 95 95 106 H Respiratory Rate 25 H 25 H Blood Pressure 89/67 L Pulse Oximetry Oxygen Delivery Fraction of Inspired Oxygen 03/31/24 10:33 03/31/24 11:01 03/31/24 12:00 Temperature Pulse Rate 106 H 97 89 Respiratory Rate 25 H Blood Pressure 89/67 L Pulse Oximetry 94 94 Oxygen Delivery Mechanical Ventilation Mechanical Ventilation Fraction of Inspired Oxygen 40 40 03/31/24 12:00 03/31/24 12:00 03/31/24 12:00 Temperature 36.1 C L Pulse Rate 97 89 Respiratory Rate 25 H Blood Pressure 96/63 L Pulse Oximetry 94 Oxygen Delivery Fraction of Inspired Oxygen 40 03/31/24 12:00 03/31/24 12:00 03/31/24 14:00 Temperature Pulse Rate 94 95 92 Respiratory Rate 25 H 22 H Blood Pressure Pulse Oximetry Oxygen Delivery Fraction of Inspired Oxygen 03/31/24 14:00 03/31/24 14:00 03/31/24 14:00 Temperature 36.1 C L Pulse Rate 100 93 95 Respiratory Rate 25 H 25 H 25 H Blood Pressure 104/62 Pulse Oximetry 94 Oxygen Delivery Fraction of Inspired Oxygen 03/31/24 14:15 03/31/24 16:00 03/31/24 16:00 Temperature Pulse Rate 108 H 190 H 190 H Respiratory Rate 25 H Blood Pressure Pulse Oximetry 94 94 Oxygen Delivery Mechanical Ventilation Mechanical Ventilation Fraction of Inspired Oxygen 40 40 03/31/24 16:00 03/31/24 16:00 03/31/24 16:00 Temperature 36.1 C L Pulse Rate 90 90 Respiratory Rate 25 H 25 H Blood Pressure 96/73 L Pulse Oximetry 94 Oxygen Delivery Fraction of Inspired Oxygen 40 03/31/24 16:00 03/31/24 17:14 03/31/24 18:00 Temperature Pulse Rate 90 92 96 Respiratory Rate 22 H Blood Pressure Pulse Oximetry 95 Oxygen Delivery Mechanical Ventilation Fraction of Inspired Oxygen 40 03/31/24 18:00 03/31/24 18:00 03/31/24 18:00 Temperature 36.2 C L Pulse Rate 96 91 90 Respiratory Rate 25 H 25 H 22 H Blood Pressure 105/67 Pulse Oximetry 95 Oxygen Delivery Fraction of Inspired Oxygen 03/31/24 20:00 03/31/24 20:00 03/31/24 20:00 Temperature 36.3 C L Pulse Rate 103 H 103 H Respiratory Rate 23 H 23 H Blood Pressure 107/64 Pulse Oximetry 95 95 Oxygen Delivery Mechanical Ventilation Fraction of Inspired Oxygen 40 40 03/31/24 20:00 03/31/24 20:00 03/31/24 20:00 Temperature Pulse Rate 103 H 103 H 103 H Respiratory Rate 23 H 23 H Blood Pressure 107/64 Pulse Oximetry Oxygen Delivery Fraction of Inspired Oxygen 03/31/24 20:00 03/31/24 20:05 03/31/24 22:00 Temperature Pulse Rate 103 H 103 H 96 Respiratory Rate Blood Pressure Pulse Oximetry 95 Oxygen Delivery Mechanical Ventilation Fraction of Inspired Oxygen 40 03/31/24 22:00 03/31/24 22:00 03/31/24 22:00 Temperature 36.3 C L Pulse Rate 96 96 96 Respiratory Rate 26 H 26 H Blood Pressure 116/69 116/69 Pulse Oximetry 94 Oxygen Delivery Fraction of Inspired Oxygen 03/31/24 22:00 03/31/24 23:00 03/31/24 23:01 Temperature Pulse Rate 96 87 87 Respiratory Rate 26 H Blood Pressure 110/71 110/71 Pulse Oximetry Oxygen Delivery Fraction of Inspired Oxygen 03/31/24 23:11 04/01/24 00:00 04/01/24 00:00 Temperature Pulse Rate 96 98 Respiratory Rate 25 H Blood Pressure Pulse Oximetry 94 95 Oxygen Delivery Mechanical Ventilation Mechanical Ventilation Fraction of Inspired Oxygen 40 40 40 04/01/24 00:00 04/01/24 00:00 04/01/24 00:00 Temperature 36.3 C L Pulse Rate 98 98 98 Respiratory Rate 25 H Blood Pressure 111/68 111/68 Pulse Oximetry 95 Oxygen Delivery Fraction of Inspired Oxygen 04/01/24 00:00 04/01/24 00:00 04/01/24 02:00 Temperature Pulse Rate 98 98 85 Respiratory Rate 25 H 25 H Blood Pressure Pulse Oximetry Oxygen Delivery Fraction of Inspired Oxygen 04/01/24 02:00 04/01/24 02:00 04/01/24 02:00 Temperature 36.0 C L Pulse Rate 102 H 102 H 102 H Respiratory Rate 24 H 24 H 24 H Blood Pressure 115/75 Pulse Oximetry 93 Oxygen Delivery Fraction of Inspired Oxygen 04/01/24 02:00 04/01/24 02:02 04/01/24 02:51 Temperature Pulse Rate 102 H 97 103 H Respiratory Rate 23 H Blood Pressure 115/75 Pulse Oximetry 93 Oxygen Delivery Mechanical Ventilation Fraction of Inspired Oxygen 40 04/01/24 03:15 04/01/24 03:30 04/01/24 04:00 Temperature Pulse Rate 102 H 109 H 100 Respiratory Rate 29 H 27 H 26 H Blood Pressure Pulse Oximetry Oxygen Delivery Fraction of Inspired Oxygen 04/01/24 04:00 04/01/24 04:00 04/01/24 04:00 Temperature 36.0 C L Pulse Rate 100 110 H 110 H Respiratory Rate 26 H 26 H 26 H Blood Pressure 119/77 Pulse Oximetry 93 93 Oxygen Delivery Mechanical Ventilation Fraction of Inspired Oxygen 40 04/01/24 04:00 04/01/24 04:00 04/01/24 04:00 Temperature Pulse Rate 110 H 110 H Respiratory Rate Blood Pressure 119/77 Pulse Oximetry Oxygen Delivery Fraction of Inspired Oxygen 40 04/01/24 05:07 04/01/24 05:07 04/01/24 05:08 Temperature Pulse Rate 101 H 101 H 94 Respiratory Rate 29 H 29 H 26 H Blood Pressure Pulse Oximetry Oxygen Delivery Fraction of Inspired Oxygen 04/01/24 05:08 04/01/24 05:08 04/01/24 06:00 Temperature Pulse Rate 94 91 101 H Respiratory Rate 26 H Blood Pressure Pulse Oximetry 93 Oxygen Delivery Mechanical Ventilation Fraction of Inspired Oxygen 40 04/01/24 06:00 04/01/24 06:00 04/01/24 06:00 Temperature 36.1 C L Pulse Rate 101 H 97 101 H Respiratory Rate 25 H 25 H Blood Pressure 120/72 120/72 Pulse Oximetry 93 Oxygen Delivery Fraction of Inspired Oxygen 04/01/24 06:00 Temperature Pulse Rate 97 Respiratory Rate 25 H Blood Pressure Pulse Oximetry Oxygen Delivery Fraction of Inspired Oxygen Intake/Output Intake/Output: Intake & Output 03/29/24 03/30/24 03/31/24 04/01/24 23:59 23:59 23:59 23:59 Intake Total 2837.6 2340.0 1929.6 1140.4 Output Total 850 410 425 325 Balance 1987.6 1930.0 1504.6 815.4 Meds/Results Medications: Active Medications Generic Name Dose Route Start Last Admin Trade Name Freq PRN Reason Stop Dose Admin Acetaminophen 650 mg 03/27/24 14:41 03/29/24 05:11 Acetaminophen 325 Mg Tablet PO 650 mg Q4H PRN Administration Mild Pain (1-3) or Fever Apixaban 5 mg 03/27/24 12:35 03/31/24 20:32 Apixaban 5 Mg Tablet PO 5 mg Q12HR LAVERNE Administration Cyanocobalamin 1,000 mcg 03/27/24 17:00 03/31/24 17:05 Cyanocobalamin 1,000 Mcg Tablet PO 1,000 mcg BID LAVERNE Administration Dextrose 12.5 gm 03/27/24 08:57 Dextrose 50% 25 Gm/50 Ml Syringe IV PUSH PRN PRN Hypoglycemia Protocol Glucagon 1 mg 03/27/24 08:57 Glucagon For Inj 1 Mg Vial IM PRN PRN Hypoglycemia Protocol Glucose 15 gm 03/27/24 08:57 Glucose Oral Gel 15 Gm Of Glucse In 37.5 Gm Tube PO PRN PRN Hypoglycemia Protocol Hydrocortisone Sodium Succinate 50 mg 04/01/24 09:00 Hydrocortisone Sodium Succinate 100 Mg/2 Ml Vial IV PUSH Q12HR LAVERNE Dextrose 1,000 mls @ 100 mls/hr 03/27/24 08:57 Dextrose 5% 1,000 Ml IVPB PRN PRN Hypoglycemia Protocol Fentanyl Citrate 2,500 mcg in 250 mls @ 10 mls/hr 03/28/24 15:45 04/01/24 06:00 Fentanyl 2,500 Mcg/Ns 250 Ml IV CONT 100 mcg/hr .Q25H LAVERNE 10 mls/hr Titration Protocol 100 MCG/HR Midazolam HCl 100 mg in 100 mls @ 4 mls/hr 03/28/24 19:30 04/01/24 06:00 Versed 100 Mg/Ns 100 Ml IV CONT 4 mg/hr .Q25H LAVERNE 4 mls/hr Titration Protocol 4 MG/HR Amiodarone HCl/Dextrose 360 mg in 200 mls @ 16.667 mls/hr 03/28/24 23:15 04/01/24 06:00 Nexterone 360 Mg/D5w 200 Ml IV CONT 0.5 mg/min .Q12H LAVERNE 16.67 mls/hr Infusion 0.5 MG/MIN Cefepime HCl 2 gm in 50 mls @ 100 mls/hr 03/30/24 18:00 04/01/24 05:31 Maxipime 2 Gm/Ns 50 Ml IVPB 04/02/24 23:59 Infused Q12H LAVERNE Infusion Insulin Aspart 4 - 8 units 03/29/24 13:00 04/01/24 05:00 Insulin Aspart (*Bkc) 100 Units/Ml SUB-Q 8 units Q4HR LAVERNE Administration Protocol Insulin Glargine 60 units 04/01/24 09:00 Insulin Glargine (*Bkc) 100 Units/Ml SUB-Q Q12HR [facility] Multi-Ingred Cream/Lotion/Oil/Oint 1 applic 03/28/24 21:00 03/31/24 20:32 Mineral Oil/White Petrolatum Ointment EACH EYE 1 applic Q12HR LAVERNE Administration Pantoprazole Sodium 40 mg 03/29/24 09:00 03/31/24 09:30 Pantoprazole Sodium Iv 40 Mg Vial IV PUSH 40 mg DAILY LAVERNE Administration Rosuvastatin Calcium 20 mg 03/28/24 09:00 03/31/24 09:28 Rosuvastatin 20 Mg Tablet PO Not Given DAILY LAVERNE Sodium Chloride 10 ml 03/28/24 22:00 04/01/24 05:01 Central Line Flush IV PUSH 10 ml Q8HR LAVERNE Administration Sodium Chloride 10 ml 03/28/24 16:14 Central Line Flush IV PUSH PRN PRN with TPN bag changes Sodium Chloride 20 ml 03/28/24 16:14 Central Line Flush IV PUSH PRN PRN after blood draws Radiology Results: ITS Impressions Chest CTA 03/27/24 06:41 Impression: No evidence of pulmonary embolus, aortic dissection, or aortic aneurysm. Extensive right lower lobe pneumonia. Probable mildly prominent reactive lymphadenopathy the right axilla and subcarinal region. Head CT 03/28/24 22:59 IMPRESSION: 1. Normal brain. Abdomen X-Ray 03/29/24 08:59 IMPRESSION: 1. Lines and tubes in expected positions. 2. Diffuse bilateral lung disease, right greater than left, consistent with multifocal pneumonia. Renal Ultrasound 03/31/24 15:34 IMPRESSION: No hydronephrosis. Perinephric fluid collection adjacent to the left lower pole. Abdomen Ultrasound 03/31/24 15:39 IMPRESSION: Status post cholecystectomy. Pancreas poorly visualized. Otherwise normal abdominal ultrasound findings. Chest X-Ray 04/01/24 05:32 Impression: 1: Bilateral asymmetric airspace disease slightly improved on the left, pneumonia versus edema. Labs Labs: Laboratory Results - last 24 hr 03/28/24 03/31/24 03/31/24 16:38 13:10 16:25 WBC RBC Hgb Hct MCV MCH MCHC RDW Plt Count MPV Immature Gran % (Auto) Neut % (Auto) Lymph % (Auto) [place] % (Auto) Eos % (Auto) Baso % (Auto) Lymph # (Auto) [place] # (Auto) Eos # (Auto) Baso # (Auto) Abs Immat Gran (auto) Absolute Neuts (auto) Absolute Nucleated RBC Nucleated RBC % Platelet Estimate Poikilocytosis Ovalocytes [place] Cells Schistocytes Puncture Site ABG pH ABG pCO2 ABG pO2 ABG PO2/FiO2 Ratio ABG HCO3 ABG O2 Saturation ABG O2 Content ABG Base Excess A-a Gradient Oxyhemoglobin Total Hemoglobin O2 Delivery Device O2 Liters/Min Minute Volume Vent Rate Vent Mode FiO2 Tidal Volume PEEP Peak Inspir Pressure Pressure Support Sodium Potassium Chloride Carbon Dioxide Anion Gap BUN Creatinine Estim Creat Clear Calc Estimated GFR Glucose POC Capillary Glucose 407 H Calcium Magnesium Total Bilirubin AST ALT Alkaline Phosphatase Total Protein Albumin Urine Color Yellow Urine Appearance Turbid H Urine pH 5.0 Ur Specific [place] 1.024 Urine Protein 2+ H Urine Glucose (UA) 1+ H Urine Ketones Trace H Ur Blood (Man) 2+ H Urine Nitrate Negative Urine Bilirubin Negative Urine Urobilinogen 0.2 Ur Leukocyte Esterase Negative Add Ur Microanalysis Reviewed Urine RBC 3-5 H Urine WBC 21-50 H Ur Squamous Epith Cells Moderate H Amorphous Sediment Moderate H Urine Bacteria Trace Urine Casts Present Urine Mucus Present Urine Eosinophils None seen U Random Total Protein 101 Ur Random Urea 549 Hepatitis A IgM Ab Hep Bs Antigen Hep Bs Antibody Hep B Core IgM Ab Hepatitis C Ab Screen Ur L.pneumophila Ag Not detected Urine Pneumococcal Ag Not detected 03/31/24 03/31/24 03/31/24 17:15 20:14 22:53 WBC RBC Hgb Hct MCV MCH MCHC RDW Plt Count MPV Immature Gran % (Auto) Neut % (Auto) Lymph % (Auto) [place] % (Auto) Eos % (Auto) Baso % (Auto) Lymph # (Auto) [place] # (Auto) Eos # (Auto) Baso # (Auto) Abs Immat Gran (auto) Absolute Neuts (auto) Absolute Nucleated RBC Nucleated RBC % Platelet Estimate Poikilocytosis Ovalocytes [place] Cells Schistocytes Puncture Site ABG pH ABG pCO2 ABG pO2 ABG PO2/FiO2 Ratio ABG HCO3 ABG O2 Saturation ABG O2 Content ABG Base Excess A-a Gradient Oxyhemoglobin Total Hemoglobin O2 Delivery Device O2 Liters/Min Minute Volume Vent Rate Vent Mode FiO2 Tidal Volume PEEP Peak Inspir Pressure Pressure Support Sodium Potassium Chloride Carbon Dioxide Anion Gap BUN Creatinine Estim Creat Clear Calc Estimated GFR Glucose POC Capillary Glucose 353 H 345 H 342 H Calcium Magnesium Total Bilirubin AST ALT Alkaline Phosphatase Total Protein Albumin Urine Color Urine Appearance Urine pH Ur Specific [place] Urine Protein Urine Glucose (UA) Urine Ketones Ur Blood (Man) Urine Nitrate Urine Bilirubin Urine Urobilinogen Ur Leukocyte Esterase Add Ur Microanalysis Urine RBC Urine WBC Ur Squamous Epith Cells Amorphous Sediment Urine Bacteria Urine Casts Urine Mucus Urine Eosinophils U Random Total Protein Ur Random Urea Hepatitis A IgM Ab Hep Bs Antigen Hep Bs Antibody Hep B Core IgM Ab Hepatitis C Ab Screen Ur L.pneumophila Ag Urine Pneumococcal Ag 04/01/24 04/01/24 04/01/24 04:09 04:09 05:03 WBC 9.8 RBC 3.82 L Hgb 11.6 L Hct 35.1 L MCV 91.9 MCH 30.4 MCHC 33.0 RDW 16.6 H Plt Count 201 MPV 10.6 H Immature Gran % (Auto) 2.4 H Neut % (Auto) 91.5 H Lymph % (Auto) 2.2 L [place] % (Auto) 2.9 Eos % (Auto) 0.2 Baso % (Auto) 0.8 Lymph # (Auto) 0.22 L [place] # (Auto) 0.3 Eos # (Auto) 0.0 Baso # (Auto) 0.1 Abs Immat Gran (auto) 0.23 H Absolute Neuts (auto) 9.0 H Absolute Nucleated RBC 0.000 Nucleated RBC % 0.0 Platelet Estimate Adequate Poikilocytosis 1+ Ovalocytes 1+ [place] Cells 1+ Schistocytes None seen Puncture Site Right radial ABG pH 7.368 ABG pCO2 40.4 ABG pO2 71.4 L ABG PO2/FiO2 Ratio 1.79 ABG HCO3 22.7 ABG O2 Saturation 94.0 L ABG O2 Content 15.3 L ABG Base Excess -2.4 A-a Gradient 167.3 Oxyhemoglobin 92.2 Total Hemoglobin 11.8 L O2 Delivery Device Ventilator O2 Liters/Min Not Reportable Minute Volume Not Reportable Vent Rate 24 Vent Mode Cmv FiO2 40 Tidal Volume 400 PEEP 10 Peak Inspir Pressure Not Reportable Pressure Support Not Reportable Sodium 133 L Potassium 3.9 Chloride 97 L Carbon Dioxide 26 Anion Gap 10 BUN 90 H D Creatinine 2.51 H Estim Creat Clear Calc 27 Estimated GFR 19 L Glucose 375 H POC Capillary Glucose Calcium 8.5 Magnesium 2.5 H Total Bilirubin 0.8 AST 346 H ALT 720 H Alkaline Phosphatase 245 H Total Protein 5.0 L Albumin 2.9 L Urine Color Urine Appearance Urine pH Ur Specific [place] Urine Protein Urine Glucose (UA) Urine Ketones Ur Blood (Man) Urine Nitrate Urine Bilirubin Urine Urobilinogen Ur Leukocyte Esterase Add Ur Microanalysis Urine RBC Urine WBC Ur Squamous Epith Cells Amorphous Sediment Urine Bacteria Urine Casts Urine Mucus Urine Eosinophils U Random Total Protein Ur Random Urea Hepatitis A IgM Ab Negative Hep Bs Antigen Negative Negative Hep Bs Antibody Negative Hep B Core IgM Ab Negative Hepatitis C Ab Screen Negative Ur L.pneumophila Ag Urine Pneumococcal Ag 04/01/24 08:16 WBC RBC Hgb Hct MCV MCH MCHC RDW Plt Count MPV Immature Gran % (Auto) Neut % (Auto) Lymph % (Auto) [place] % (Auto) Eos % (Auto) Baso % (Auto) Lymph # (Auto) [place] # (Auto) Eos # (Auto) Baso # (Auto) Abs Immat Gran (auto) Absolute Neuts (auto) Absolute Nucleated RBC Nucleated RBC % Platelet Estimate Poikilocytosis Ovalocytes [place] Cells Schistocytes Puncture Site ABG pH ABG pCO2 ABG pO2 ABG PO2/FiO2 Ratio ABG HCO3 ABG O2 Saturation ABG O2 Content ABG Base Excess A-a Gradient Oxyhemoglobin Total Hemoglobin O2 Delivery Device O2 Liters/Min Minute Volume Vent Rate Vent Mode FiO2 Tidal Volume PEEP Peak Inspir Pressure Pressure Support Sodium Potassium Chloride Carbon Dioxide Anion Gap BUN Creatinine Estim Creat Clear Calc Estimated GFR Glucose POC Capillary Glucose 412 H Calcium Magnesium Total Bilirubin AST ALT Alkaline Phosphatase Total Protein Albumin Urine Color Urine Appearance Urine pH Ur Specific [place] Urine Protein Urine Glucose (UA) Urine Ketones Ur Blood (Man) Urine Nitrate Urine Bilirubin Urine Urobilinogen Ur Leukocyte Esterase Add Ur Microanalysis Urine RBC Urine WBC Ur Squamous Epith Cells Amorphous Sediment Urine Bacteria Urine Casts Urine Mucus Urine Eosinophils U Random Total Protein Ur Random Urea Hepatitis A IgM Ab Hep Bs Antigen Hep Bs Antibody Hep B Core IgM Ab Hepatitis C Ab Screen Ur L.pneumophila Ag Urine Pneumococcal Ag Quality VTE Prophylaxis VTE prophylaxis: pharmacologic ordered
[2024-04-01] MEDS: PANTOPRAZOLE SODIUM IV 40 MG VIAL IV PUSH (09:36)
[2024-04-01] MEDS: CYANOCOBALAMIN 1,000 MCG TABLET 1000 MCG PO ×2 (09:37→16:37)
[2024-04-01] MEDS: INSULIN GLARGINE (*BKC) 100 UNITS/ML 60 UNITS SUB-Q ×2 (09:39→20:45)
[2024-04-01] MEDS: AMIODARONE 360 MG/D5W 200 ML 360 MG/200 ML BAG 16.67 MG IV CONT (09:39)
[2024-04-01] MEDS: MINERAL OIL/WHITE PETROLATUM OINTMENT 1 APPLIC EACH EYE ×2 (09:39→20:27)
--- NOTE | 2024-04-01 10:25 | PCNFU ---
Nutrition Follow-Up Complete: Suboptimal Energy Intake as related to mechanical ventilation as evidenced by current tube feeding rate. Goal: Meet estimated nutritional needs. Patient will continue current goal. Pt current nutrition is Vital AF 1.2 at 60 ml/hr. Last recorded weight is 157 kg, up from 148.9 kg on admit. Bowel Motility: +BM reported 03/26, Miralax has been started. Labs Reviewed:Mg 2.5, Cr 2.51, GFR 19, Glu 375, NA 133, Alb 2.9 Meds Noted:Lantus, NovoLog, Fentanyl, Versed, Miralax. Skin: WNL Additional Notes: Patient remains on mechanical vent. Tube feedings are being tolerated. Vital AF 1.2 at 60 ml/hr providing 1584 kcal/99 gm protein/1071 ml water. Flush 30 ml q 4 hours. Spoke with Automobile Technician today, discussions regarding dialysis on 04/02 as renal labs continue to elevate. Agree with diet orders. Will monitor weight, labs, skin, diet orders, meds, tube feeding tolerance every Thursday and Thursday.
[2024-04-01] MEDS: INSULIN HUMAN REGULAR (*BKC) 100 UNITS/ML 10 UNITS IV PUSH (10:35)
--- NOTE | 2024-04-01 10:37 | PM.PNCARD ---
Progress Note: A&P Assessment and Plan (1) Atrial fibrillation with RVR: Code(s): I48.91 - Unspecified atrial fibrillation Status: Acute (2) Acute on chronic heart failure: Code(s): I50.9 - Heart failure, unspecified Status: Acute (3) Hypertension: Code(s): I10 - Essential (primary) hypertension Status: Acute (4) Sepsis: Code(s): A41.9 - Sepsis, unspecified organism Status: Acute (5) Community acquired pneumonia: Code(s): J18.9 - Pneumonia, unspecified organism Status: Acute (6) Acute hypoxic respiratory failure: Code(s): J96.01 - Acute respiratory failure with hypoxia Status: Acute (7) Atrial fibrillation: Code(s): I48.91 - Unspecified atrial fibrillation Status: Acute Plan Atrial fibrillation with RVR Acute kidney injury Acute hypoxic respiratory failure requiring mechanical ventilation RSV infection Shock, on pressors Acute on chronic heart failure - LVEF 50-55% per TTE 03/29/2024 Pneumonia on antibiotics Sepsis secondary to pneumonia Hypertension Hyperlipidemia Obstructive sleep apnea not compliant with CPAP Diabetes mellitus Plan: Will stop IV Amiodarone drip and start PO Amiodarone. No longer on pressors, therefore, will start Metoprolol. Continue Apixaban for anticoagulation to reduce risk of stroke in AFIB. Monitor on telemetry Check and replace electrolytes as needed keeping potassium greater than 4 and magnesium greater than 2 Continue Rosuvastatin for hyperlipidemia Diuretics on hold due to VINCENT. Nephrology consulted. Recommendations and plan discussed with ICU Physician. Subjective Date/time seen: 04/01/24 10:37 Interval history: Reason for visit: Atrial fibrillation with RVR HPI: 68-year-old female with recently diagnosed with atrial fibrillation in January, status post SHAYY cardioversion with successful conversion to sinus rhythm for approximately 1 week and then converted back into AFib, obstructive sleep apnea not using CPAP, diabetes mellitus, hyperlipidemia, hypertension, endometrial cancer presents with chief complaint of worsening shortness of breath, leg swelling and weight gain over the past few weeks. She denies any chest pain 8 and at rest or with activity. She feels lightheaded and dizziness occasionally. She has off and on palpitations. She reports productive cough for about 1 week without any fevers, chills, nausea, emesis, abdominal pain, diarrhea. She does not have any recent sick contacts. She reports an episode of ambulating and losing her balance resulting in ground level fall. No symptoms of dizziness or lightheadedness at the time of the fall. There was no loss of consciousness. For atrial fibrillation with RVR, patient was given IV metoprolol and IV Cardizem with no response. She continued to have RVR. She was then transferred to IMU and a Cardizem drip was started with little response on heart rates. She continued to have heart rates in the 120s to 140s range. At this time Cardizem was stopped and amiodarone was given as a bolus and a drip was started. Her heart rate is are in the 120s to 150s at rest while on amiodarone drip. Patient is extremely short of breath with RVR. Date of service 03/28: She remains in atrial fibrillation with RVR. She reports feeling about the same as she did yesterday. Date of service 03/29: Yesterday, rapid response was called due to desaturations and unresponsive. Now intubated and in the ICU. On tele, she is in rate controlled AFIB, remains on Amiodarone. Date of service 03/30: Atrial fibrillation is rate controlled. Remains intubated. Date of service 03/31: Intubated and sedated Date of service 04/01: Has worsening renal function, Nephrology consulted. AFIB overall rate controlled. Review of Systems Review of Systems: ROS unobtainable: Yes unobtainable due to endotracheal tube Exam Const: Other: Critically ill female, morbidly obese. Intubated, multiple drips. HENMT: Other: OETT in place Resp: Other: On mechanical ventilation Cardio: Rhythm: abnormal rhythm irregularly irregular Neuro: Other: Sedated Psych: Other: Sedated Objective Data Vital Signs Vital Signs: Vital Signs - 24 hr 03/31/24 11:01 03/31/24 12:00 03/31/24 12:00 Temperature Pulse Rate 97 89 97 Respiratory Rate 25 H Blood Pressure Pulse Oximetry 94 94 Oxygen Delivery Mechanical Ventilation Mechanical Ventilation Fraction of Inspired Oxygen 40 40 03/31/24 12:00 03/31/24 12:00 03/31/24 12:00 Temperature 36.1 C L Pulse Rate 89 94 Respiratory Rate 25 H 25 H Blood Pressure 96/63 L Pulse Oximetry 94 Oxygen Delivery Fraction of Inspired Oxygen 40 03/31/24 12:00 03/31/24 14:00 03/31/24 14:00 Temperature 36.1 C L Pulse Rate 95 92 100 Respiratory Rate 22 H 25 H Blood Pressure 104/62 Pulse Oximetry 94 Oxygen Delivery Fraction of Inspired Oxygen 03/31/24 14:00 03/31/24 14:00 03/31/24 14:15 Temperature Pulse Rate 93 95 108 H Respiratory Rate 25 H 25 H Blood Pressure Pulse Oximetry 94 Oxygen Delivery Mechanical Ventilation Fraction of Inspired Oxygen 40 03/31/24 16:00 03/31/24 16:00 03/31/24 16:00 Temperature Pulse Rate 190 H 190 H Respiratory Rate 25 H Blood Pressure Pulse Oximetry 94 Oxygen Delivery Mechanical Ventilation Fraction of Inspired Oxygen 40 40 03/31/24 16:00 03/31/24 16:00 03/31/24 16:00 Temperature 36.1 C L Pulse Rate 90 90 90 Respiratory Rate 25 H 25 H 22 H Blood Pressure 96/73 L Pulse Oximetry 94 Oxygen Delivery Fraction of Inspired Oxygen 03/31/24 17:14 03/31/24 18:00 03/31/24 18:00 Temperature 36.2 C L Pulse Rate 92 96 96 Respiratory Rate 25 H Blood Pressure 105/67 Pulse Oximetry 95 95 Oxygen Delivery Mechanical Ventilation Fraction of Inspired Oxygen 40 03/31/24 18:00 03/31/24 18:00 03/31/24 20:00 Temperature Pulse Rate 91 90 103 H Respiratory Rate 25 H 22 H 23 H Blood Pressure Pulse Oximetry 95 Oxygen Delivery Mechanical Ventilation Fraction of Inspired Oxygen 40 03/31/24 20:00 03/31/24 20:00 03/31/24 20:00 Temperature 36.3 C L Pulse Rate 103 H 103 H Respiratory Rate 23 H 23 H Blood Pressure 107/64 Pulse Oximetry 95 Oxygen Delivery Fraction of Inspired Oxygen 40 03/31/24 20:00 03/31/24 20:00 03/31/24 20:00 Temperature Pulse Rate 103 H 103 H 103 H Respiratory Rate 23 H Blood Pressure 107/64 Pulse Oximetry Oxygen Delivery Fraction of Inspired Oxygen 03/31/24 20:05 03/31/24 22:00 03/31/24 22:00 Temperature 36.3 C L Pulse Rate 103 H 96 96 Respiratory Rate 26 H Blood Pressure 116/69 Pulse Oximetry 95 94 Oxygen Delivery Mechanical Ventilation Fraction of Inspired Oxygen 40 03/31/24 22:00 03/31/24 22:00 03/31/24 22:00 Temperature Pulse Rate 96 96 96 Respiratory Rate 26 H 26 H Blood Pressure 116/69 Pulse Oximetry Oxygen Delivery Fraction of Inspired Oxygen 03/31/24 23:00 03/31/24 23:01 03/31/24 23:11 Temperature Pulse Rate 87 87 96 Respiratory Rate Blood Pressure 110/71 110/71 Pulse Oximetry 94 Oxygen Delivery Mechanical Ventilation Fraction of Inspired Oxygen 40 04/01/24 00:00 04/01/24 00:00 04/01/24 00:00 Temperature 36.3 C L Pulse Rate 98 98 Respiratory Rate 25 H 25 H Blood Pressure 111/68 Pulse Oximetry 95 95 Oxygen Delivery Mechanical Ventilation Fraction of Inspired Oxygen 40 40 04/01/24 00:00 04/01/24 00:00 04/01/24 00:00 Temperature Pulse Rate 98 98 98 Respiratory Rate 25 H Blood Pressure 111/68 Pulse Oximetry Oxygen Delivery Fraction of Inspired Oxygen 04/01/24 00:00 04/01/24 02:00 04/01/24 02:00 Temperature 36.0 C L Pulse Rate 98 85 102 H Respiratory Rate 25 H 24 H Blood Pressure 115/75 Pulse Oximetry 93 Oxygen Delivery Fraction of Inspired Oxygen 04/01/24 02:00 04/01/24 02:00 04/01/24 02:00 Temperature Pulse Rate 102 H 102 H 102 H Respiratory Rate 24 H 24 H Blood Pressure 115/75 Pulse Oximetry Oxygen Delivery Fraction of Inspired Oxygen 04/01/24 02:02 04/01/24 02:51 04/01/24 03:15 Temperature Pulse Rate 97 103 H 102 H Respiratory Rate 23 H 29 H Blood Pressure Pulse Oximetry 93 Oxygen Delivery Mechanical Ventilation Fraction of Inspired Oxygen 40 04/01/24 03:30 04/01/24 04:00 04/01/24 04:00 Temperature Pulse Rate 109 H 100 100 Respiratory Rate 27 H 26 H 26 H Blood Pressure Pulse Oximetry Oxygen Delivery Fraction of Inspired Oxygen 04/01/24 04:00 04/01/24 04:00 04/01/24 04:00 Temperature 36.0 C L Pulse Rate 110 H 110 H 110 H Respiratory Rate 26 H 26 H Blood Pressure 119/77 Pulse Oximetry 93 93 Oxygen Delivery Mechanical Ventilation Fraction of Inspired Oxygen 40 04/01/24 04:00 04/01/24 04:00 04/01/24 05:07 Temperature Pulse Rate 110 H 101 H Respiratory Rate 29 H Blood Pressure 119/77 Pulse Oximetry Oxygen Delivery Fraction of Inspired Oxygen 40 04/01/24 05:07 04/01/24 05:08 04/01/24 05:08 Temperature Pulse Rate 101 H 94 94 Respiratory Rate 29 H 26 H 26 H Blood Pressure Pulse Oximetry Oxygen Delivery Fraction of Inspired Oxygen 04/01/24 05:08 04/01/24 06:00 04/01/24 06:00 Temperature 36.1 C L Pulse Rate 91 101 H 101 H Respiratory Rate 25 H Blood Pressure 120/72 Pulse Oximetry 93 93 Oxygen Delivery Mechanical Ventilation Fraction of Inspired Oxygen 40 04/01/24 06:00 04/01/24 06:00 04/01/24 06:00 Temperature Pulse Rate 97 101 H 97 Respiratory Rate 25 H 25 H Blood Pressure 120/72 Pulse Oximetry Oxygen Delivery Fraction of Inspired Oxygen 04/01/24 08:00 04/01/24 08:00 04/01/24 08:00 Temperature 36.2 C L Pulse Rate 94 104 H 104 H Respiratory Rate 26 H 24 H Blood Pressure 111/65 110/69 Pulse Oximetry 92 Oxygen Delivery Fraction of Inspired Oxygen 04/01/24 08:00 04/01/24 08:37 04/01/24 09:39 Temperature Pulse Rate 104 H 101 H 105 H Respiratory Rate 24 H Blood Pressure 99/73 L Pulse Oximetry 92 Oxygen Delivery Mechanical Ventilation Fraction of Inspired Oxygen 40 04/01/24 09:39 04/01/24 10:00 Temperature 36.4 C L Pulse Rate 105 H 95 Respiratory Rate 26 H Blood Pressure 99/73 L 106/76 Pulse Oximetry 94 Oxygen Delivery Fraction of Inspired Oxygen Intake/Output Intake/Output: Intake & Output 03/29/24 03/30/24 03/31/24 04/01/24 23:59 23:59 23:59 23:59 Intake Total 2837.6 2340.0 1929.6 1229.2 Output Total 850 410 425 325 Balance 1987.6 1930.0 1504.6 904.2 Meds/Results Medications: Active Medications Generic Name Dose Route Start Last Admin Trade Name Freq PRN Reason Stop Dose Admin Acetaminophen 650 mg 03/27/24 14:41 03/29/24 05:11 Acetaminophen 325 Mg Tablet PO 650 mg Q4H PRN Administration Mild Pain (1-3) or Fever Apixaban 5 mg 03/27/24 12:35 03/31/24 20:32 Apixaban 5 Mg Tablet PO 5 mg Q12HR [facility] Administration Cyanocobalamin 1,000 mcg 03/27/24 17:00 04/01/24 09:37 Cyanocobalamin 1,000 Mcg Tablet PO 1,000 mcg BID [facility] Administration Dextrose 12.5 gm 03/27/24 08:57 Dextrose 50% 25 Gm/50 Ml Syringe IV PUSH PRN PRN Hypoglycemia Protocol Glucagon 1 mg 03/27/24 08:57 Glucagon For Inj 1 Mg Vial IM PRN PRN Hypoglycemia Protocol Glucose 15 gm 03/27/24 08:57 Glucose Oral Gel 15 Gm Of Glucse In 37.5 Gm Tube PO PRN PRN Hypoglycemia Protocol Hydrocortisone Sodium Succinate 50 mg 04/01/24 09:00 04/01/24 09:38 Hydrocortisone Sodium Succinate 100 Mg/2 Ml Vial IV PUSH 50 mg Q12HR [facility] Administration Dextrose 1,000 mls @ 100 mls/hr 03/27/24 08:57 Dextrose 5% 1,000 Ml IVPB PRN PRN Hypoglycemia Protocol Fentanyl Citrate 2,500 mcg in 250 mls @ 10 mls/hr 03/28/24 15:45 04/01/24 08:00 Fentanyl 2,500 Mcg/Ns 250 Ml IV CONT 100 mcg/hr .Q25H [facility] 10 mls/hr Titration Protocol 100 MCG/HR Midazolam HCl 100 mg in 100 mls @ 4 mls/hr 03/28/24 19:30 04/01/24 08:00 Versed 100 Mg/Ns 100 Ml IV CONT 4 mg/hr .Q25H [facility] 4 mls/hr Titration Protocol 4 MG/HR Cefepime HCl 2 gm in 50 mls @ 100 mls/hr 03/30/24 18:00 04/01/24 05:31 Maxipime 2 Gm/Ns 50 Ml IVPB 04/02/24 23:59 Infused Q12H [facility] Infusion Insulin Aspart 4 - 8 units 03/29/24 13:00 04/01/24 09:59 Insulin Aspart (*Bkc) 100 Units/Ml SUB-Q Not Given Q4HR [facility] Protocol Insulin Glargine 60 units 04/01/24 09:00 04/01/24 09:39 Insulin Glargine (*Bkc) 100 Units/Ml SUB-Q 60 units Q12HR [facility] Administration Multi-Ingred Cream/Lotion/Oil/Oint 1 applic 03/28/24 21:00 04/01/24 09:39 Mineral Oil/White Petrolatum Ointment EACH EYE 1 applic Q12HR [facility] Administration Pantoprazole Sodium 40 mg 03/29/24 09:00 04/01/24 09:36 Pantoprazole Sodium Iv 40 Mg Vial IV PUSH 40 mg DAILY [facility] Administration Rosuvastatin Calcium 20 mg 03/28/24 09:00 03/31/24 09:28 Rosuvastatin 20 Mg Tablet PO Not Given DAILY [facility] Sodium Chloride 10 ml 03/28/24 22:00 04/01/24 05:01 Central Line Flush IV PUSH 10 ml Q8HR [facility] Administration Sodium Chloride 10 ml 03/28/24 16:14 Central Line Flush IV PUSH PRN PRN with TPN bag changes Sodium Chloride 20 ml 03/28/24 16:14 Central Line Flush IV PUSH PRN PRN after blood draws Radiology Results: ITS Impressions Chest CTA 03/27/24 06:41 Impression: No evidence of pulmonary embolus, aortic dissection, or aortic aneurysm. Extensive right lower lobe pneumonia. Probable mildly prominent reactive lymphadenopathy the right axilla and subcarinal region. Head CT 03/28/24 22:59 IMPRESSION: 1. Normal brain. Abdomen X-Ray 03/29/24 08:59 IMPRESSION: 1. Lines and tubes in expected positions. 2. Diffuse bilateral lung disease, right greater than left, consistent with multifocal pneumonia. Renal Ultrasound 03/31/24 15:34 IMPRESSION: No hydronephrosis. Perinephric fluid collection adjacent to the left lower pole. Abdomen Ultrasound 03/31/24 15:39 IMPRESSION: Status post cholecystectomy. Pancreas poorly visualized. Otherwise normal abdominal ultrasound findings. Chest X-Ray 04/01/24 05:32 Impression: 1: Bilateral asymmetric airspace disease slightly improved on the left, pneumonia versus edema. Labs Labs: Laboratory Results - last 24 hr 03/28/24 03/31/24 03/31/24 16:38 13:10 16:25 WBC RBC Hgb Hct MCV MCH MCHC RDW Plt Count MPV Immature Gran % (Auto) Neut % (Auto) Lymph % (Auto) [place] % (Auto) Eos % (Auto) Baso % (Auto) Lymph # (Auto) [place] # (Auto) Eos # (Auto) Baso # (Auto) Abs Immat Gran (auto) Absolute Neuts (auto) Absolute Nucleated RBC Nucleated RBC % Platelet Estimate Poikilocytosis Ovalocytes [place] Cells Schistocytes Puncture Site ABG pH ABG pCO2 ABG pO2 ABG PO2/FiO2 Ratio ABG HCO3 ABG O2 Saturation ABG O2 Content ABG Base Excess A-a Gradient Oxyhemoglobin Total Hemoglobin O2 Delivery Device O2 Liters/Min Minute Volume Vent Rate Vent Mode FiO2 Tidal Volume PEEP Peak Inspir Pressure Pressure Support Sodium Potassium Chloride Carbon Dioxide Anion Gap BUN Creatinine Estim Creat Clear Calc Estimated GFR Glucose POC Capillary Glucose 407 H Calcium Magnesium Total Bilirubin AST ALT Alkaline Phosphatase Total Protein Albumin Urine Color Yellow Urine Appearance Turbid H Urine pH 5.0 Ur Specific [place] 1.024 Urine Protein 2+ H Urine Glucose (UA) 1+ H Urine Ketones Trace H Ur Blood (Man) 2+ H Urine Nitrate Negative Urine Bilirubin Negative Urine Urobilinogen 0.2 Ur Leukocyte Esterase Negative Add Ur Microanalysis Reviewed Urine RBC 3-5 H Urine WBC 21-50 H Ur Squamous Epith Cells Moderate H Amorphous Sediment Moderate H Urine Bacteria Trace Urine Casts Present Urine Mucus Present Urine Eosinophils None seen U Random Total Protein 101 Ur Random Urea 549 Hepatitis A IgM Ab Hep Bs Antigen Hep Bs Antibody Hep B Core IgM Ab Hepatitis C Ab Screen Ur L.pneumophila Ag Not detected Urine Pneumococcal Ag Not detected 03/31/24 03/31/24 03/31/24 17:15 20:14 22:53 WBC RBC Hgb Hct MCV MCH MCHC RDW Plt Count MPV Immature Gran % (Auto) Neut % (Auto) Lymph % (Auto) [place] % (Auto) Eos % (Auto) Baso % (Auto) Lymph # (Auto) [place] # (Auto) Eos # (Auto) Baso # (Auto) Abs Immat Gran (auto) Absolute Neuts (auto) Absolute Nucleated RBC Nucleated RBC % Platelet Estimate Poikilocytosis Ovalocytes [place] Cells Schistocytes Puncture Site ABG pH ABG pCO2 ABG pO2 ABG PO2/FiO2 Ratio ABG HCO3 ABG O2 Saturation ABG O2 Content ABG Base Excess A-a Gradient Oxyhemoglobin Total Hemoglobin O2 Delivery Device O2 Liters/Min Minute Volume Vent Rate Vent Mode FiO2 Tidal Volume PEEP Peak Inspir Pressure Pressure Support Sodium Potassium Chloride Carbon Dioxide Anion Gap BUN Creatinine Estim Creat Clear Calc Estimated GFR Glucose POC Capillary Glucose 353 H 345 H 342 H Calcium Magnesium Total Bilirubin AST ALT Alkaline Phosphatase Total Protein Albumin Urine Color Urine Appearance Urine pH Ur Specific [place] Urine Protein Urine Glucose (UA) Urine Ketones Ur Blood (Man) Urine Nitrate Urine Bilirubin Urine Urobilinogen Ur Leukocyte Esterase Add Ur Microanalysis Urine RBC Urine WBC Ur Squamous Epith Cells Amorphous Sediment Urine Bacteria Urine Casts Urine Mucus Urine Eosinophils U Random Total Protein Ur Random Urea Hepatitis A IgM Ab Hep Bs Antigen Hep Bs Antibody Hep B Core IgM Ab Hepatitis C Ab Screen Ur L.pneumophila Ag Urine Pneumococcal Ag 04/01/24 04/01/24 04/01/24 04:09 04:09 05:03 WBC 9.8 RBC 3.82 L Hgb 11.6 L Hct 35.1 L MCV 91.9 MCH 30.4 MCHC 33.0 RDW 16.6 H Plt Count 201 MPV 10.6 H Immature Gran % (Auto) 2.4 H Neut % (Auto) 91.5 H Lymph % (Auto) 2.2 L [place] % (Auto) 2.9 Eos % (Auto) 0.2 Baso % (Auto) 0.8 Lymph # (Auto) 0.22 L [place] # (Auto) 0.3 Eos # (Auto) 0.0 Baso # (Auto) 0.1 Abs Immat Gran (auto) 0.23 H Absolute Neuts (auto) 9.0 H Absolute Nucleated RBC 0.000 Nucleated RBC % 0.0 Platelet Estimate Adequate Poikilocytosis 1+ Ovalocytes 1+ [place] Cells 1+ Schistocytes None seen Puncture Site Right radial ABG pH 7.368 ABG pCO2 40.4 ABG pO2 71.4 L ABG PO2/FiO2 Ratio 1.79 ABG HCO3 22.7 ABG O2 Saturation 94.0 L ABG O2 Content 15.3 L ABG Base Excess -2.4 A-a Gradient 167.3 Oxyhemoglobin 92.2 Total Hemoglobin 11.8 L O2 Delivery Device Ventilator O2 Liters/Min Not Reportable Minute Volume Not Reportable Vent Rate 24 Vent Mode Cmv FiO2 40 Tidal Volume 400 PEEP 10 Peak Inspir Pressure Not Reportable Pressure Support Not Reportable Sodium 133 L Potassium 3.9 Chloride 97 L Carbon Dioxide 26 Anion Gap 10 BUN 90 H D Creatinine 2.51 H Estim Creat Clear Calc 27 Estimated GFR 19 L Glucose 375 H POC Capillary Glucose Calcium 8.5 Magnesium 2.5 H Total Bilirubin 0.8 AST 346 H ALT 720 H Alkaline Phosphatase 245 H Total Protein 5.0 L Albumin 2.9 L Urine Color Urine Appearance Urine pH Ur Specific [place] Urine Protein Urine Glucose (UA) Urine Ketones Ur Blood (Man) Urine Nitrate Urine Bilirubin Urine Urobilinogen Ur Leukocyte Esterase Add Ur Microanalysis Urine RBC Urine WBC Ur Squamous Epith Cells Amorphous Sediment Urine Bacteria Urine Casts Urine Mucus Urine Eosinophils U Random Total Protein Ur Random Urea Hepatitis A IgM Ab Negative Hep Bs Antigen Negative Negative Hep Bs Antibody Negative Hep B Core IgM Ab Negative Hepatitis C Ab Screen Negative Ur L.pneumophila Ag Urine Pneumococcal Ag 04/01/24 08:16 WBC RBC Hgb Hct MCV MCH MCHC RDW Plt Count MPV Immature Gran % (Auto) Neut % (Auto) Lymph % (Auto) [place] % (Auto) Eos % (Auto) Baso % (Auto) Lymph # (Auto) [place] # (Auto) Eos # (Auto) Baso # (Auto) Abs Immat Gran (auto) Absolute Neuts (auto) Absolute Nucleated RBC Nucleated RBC % Platelet Estimate Poikilocytosis Ovalocytes [place] Cells Schistocytes Puncture Site ABG pH ABG pCO2 ABG pO2 ABG PO2/FiO2 Ratio ABG HCO3 ABG O2 Saturation ABG O2 Content ABG Base Excess A-a Gradient Oxyhemoglobin Total Hemoglobin O2 Delivery Device O2 Liters/Min Minute Volume Vent Rate Vent Mode FiO2 Tidal Volume PEEP Peak Inspir Pressure Pressure Support Sodium Potassium Chloride Carbon Dioxide Anion Gap BUN Creatinine Estim Creat Clear Calc Estimated GFR Glucose POC Capillary Glucose 412 H Calcium Magnesium Total Bilirubin AST ALT Alkaline Phosphatase Total Protein Albumin Urine Color Urine Appearance Urine pH Ur Specific [place] Urine Protein Urine Glucose (UA) Urine Ketones Ur Blood (Man) Urine Nitrate Urine Bilirubin Urine Urobilinogen Ur Leukocyte Esterase Add Ur Microanalysis Urine RBC Urine WBC Ur Squamous Epith Cells Amorphous Sediment Urine Bacteria Urine Casts Urine Mucus Urine Eosinophils U Random Total Protein Ur Random Urea Hepatitis A IgM Ab Hep Bs Antigen Hep Bs Antibody Hep B Core IgM Ab Hepatitis C Ab Screen Ur L.pneumophila Ag Urine Pneumococcal Ag
[2024-04-01 11:48] LABS: Glucose Point of Care 419 mg/dl (65-105)
--- NOTE | 2024-04-01 11:55 | P.PNNP_ITS ---
Progress Note: A&P Assessment and Plan (1) VINCENT (acute kidney injury): Code(s): N17.9 - Acute kidney failure, unspecified Status: Acute Assessment and Plan: * as noted by trend of labs since admission * normal creatinine at baseline and on admission * multifactorial etiology: * hemodynamic instability/shock * infection/sepsis (pneumonia + RSV) * ARB + HCTZ use prior to admission * contrast (CTA of chest on 03/27) * hypoxia * afib with RVR * prerenal factors (?) * evaluation to date noted: * renal ultrasound without hydro * urine electrolytes prerenal * urine eosinophils negative * CPK normal * volume expansion with IV albumin (given concerns for volume overload) * holding diuretics * optimize hemodynamics * remains at risk for [employer]CH[employer]SEMBL[employer]/dialysis * follow trend of repeat labs and UOP (2) Acute hypoxic respiratory failure: Code(s): J96.01 - Acute respiratory failure with hypoxia Status: Acute Assessment and Plan: * seconeary to pneumonia, RSV, and possible CHF * CTA of chest noted: * no evidence of pulmonary embolus, aortic dissection, or aortic aneurysm * extensive right lower lobe pneumonia * robable mildly prominent reactive lymphadenopathy the right axilla and subcarinal region * emergently intubated 03/28 * on steroids * follow respiratory status (3) Septic shock: Code(s): A41.9 - Sepsis, unspecified organism; R65.21 - Severe sepsis with septic shock Status: Acute Assessment and Plan: * secondary to extensive pneumonia +/- RSV * follow culture data (negative to date) * on antibiotics * was on vasopressor therapy (has since been weaned off) * on steroids * follow hemodynamics (4) Atrial fibrillation with RVR: Code(s): I48.91 - Unspecified atrial fibrillation Status: Acute Assessment and Plan: * rate control strategy * on amiodarone * on Eliquis * Echo results noted * Cardiology following (5) Anemia: Code(s): D64.9 - Anemia, unspecified Status: Acute Assessment and Plan: * likely a manifestation of VINCENT and acute illness * follow trend of H/H for now (6) Community acquired pneumonia: Code(s): J18.9 - Pneumonia, unspecified organism Status: Acute Assessment and Plan: * as noted by admission imaging * follow cultures * on antibiotics (7) Elevated liver enzymes: Code(s): R74.8 - Abnormal levels of other serum enzymes Status: Acute Assessment and Plan: * thought to be secondary to shock liver * statin on hold * follow trend of liver enzymes (8) Diabetes: Code(s): E11.9 - Type 2 diabetes mellitus without complications Status: Chronic Assessment and Plan: * follow accu-cheks * glycemic control per hospitalist/law enforcement instructor Discussed case with Dr. Robertson Will continue to follow. Subjective Date/time seen: 04/01/24 11:55 Interval history: Follow-up for acute kidney injury/acute renal failure. Remains intubated/sedated and om mechanical ventilation; renal function/creatinine a bit worse although still making some urine; remains hemodynamically stable off vasopressor therapy; no other acute issues/events overnight or earlier this morning. Exam Narrative: General: elderly but WD/WN female intubated/sedated and on mechanical ventilation Heart: IRRR, normal S1 and S2; no rub Lungs: coarse breath sounds; few crackles at bases Abdomen: soft, nontender, nondistended, positive bowel sounds Extremities: no cyanosis or clubbing; trace edema Skin: warm and dry Objective Data Vital Signs Vital Signs: Vital Signs Temp Pulse Resp BP Pulse Ox O2 Del Method FiO2 04/01/24 14:07 108 H 95 Mechanical Ventilation 04/01/24 14:00 89 04/01/24 14:00 92 27 H 04/01/24 14:00 91 27 H 04/01/24 14:00 97.5 F L 88 27 H 103/70 95 04/01/24 12:16 104 H 04/01/24 12:16 108 H 04/01/24 12:00 103 H 04/01/24 12:00 40 04/01/24 12:00 94 Mechanical Ventilation 40 04/01/24 12:00 97.6 F 107 H 18 114/50 L 94 04/01/24 12:00 110 H 113/67 04/01/24 12:00 106 H 27 H 04/01/24 12:00 106 H 27 H 04/01/24 11:38 108 H 95 Mechanical Ventilation 40 04/01/24 10:00 102 H 114/62 04/01/24 10:00 105 H 26 H 04/01/24 10:00 105 H 26 H 04/01/24 10:00 110 H 04/01/24 10:00 97.5 F L 95 26 H 106/76 94 04/01/24 09:39 105 H 99/73 L 04/01/24 09:39 105 H 99/73 L 04/01/24 08:37 101 H 92 Mechanical Ventilation 40 04/01/24 08:00 40 04/01/24 08:00 93 Mechanical Ventilation 40 04/01/24 08:00 115 H 04/01/24 08:00 104 H 24 H 04/01/24 08:00 104 H 24 H 04/01/24 08:00 104 H 110/69 04/01/24 08:00 97.1 F L 94 26 H 111/65 92 04/01/24 06:00 97 25 H 04/01/24 06:00 101 H 120/72 04/01/24 06:00 97 25 H 04/01/24 06:00 97 F L 101 H 25 H 120/72 93 04/01/24 06:00 101 H 04/01/24 05:08 91 93 Mechanical Ventilation 40 04/01/24 05:08 94 26 H 04/01/24 05:08 94 26 H 04/01/24 05:07 101 H 29 H 04/01/24 05:07 101 H 29 H 04/01/24 04:00 110 H 119/77 04/01/24 04:00 40 04/01/24 04:00 110 H 04/01/24 04:00 110 H 26 H 93 Mechanical Ventilation 40 04/01/24 04:00 96.8 F L 110 H 26 H 119/77 93 04/01/24 04:00 100 26 H 04/01/24 04:00 100 26 H 04/01/24 03:30 109 H 27 H 04/01/24 03:15 102 H 29 H 04/01/24 02:51 103 H 23 H 04/01/24 02:02 97 93 Mechanical Ventilation 40 04/01/24 02:00 102 H 115/75 04/01/24 02:00 102 H 24 H 04/01/24 02:00 102 H 24 H 04/01/24 02:00 96.8 F L 102 H 24 H 115/75 93 04/01/24 02:00 85 04/01/24 00:00 98 25 H 04/01/24 00:00 98 25 H 04/01/24 00:00 98 111/68 04/01/24 00:00 98 04/01/24 00:00 97.4 F L 98 25 H 111/68 95 04/01/24 00:00 40 04/01/24 00:00 98 25 H 95 Mechanical Ventilation 40 03/31/24 23:11 96 94 Mechanical Ventilation 40 03/31/24 23:01 87 110/71 03/31/24 23:00 87 110/71 03/31/24 22:00 96 26 H 03/31/24 22:00 96 26 H 03/31/24 22:00 96 116/69 03/31/24 22:00 97.3 F L 96 26 H 116/69 94 03/31/24 22:00 96 03/31/24 20:05 103 H 95 Mechanical Ventilation 40 03/31/24 20:00 103 H 03/31/24 20:00 103 H 107/64 03/31/24 20:00 103 H 23 H 03/31/24 20:00 103 H 23 H 03/31/24 20:00 97.3 F L 103 H 23 H 107/64 95 03/31/24 20:00 40 03/31/24 20:00 103 H 23 H 95 Mechanical Ventilation 40 03/31/24 18:00 90 22 H 03/31/24 18:00 91 25 H 03/31/24 18:00 97.1 F L 96 25 H 105/67 95 03/31/24 18:00 96 03/31/24 17:14 92 95 Mechanical Ventilation 40 03/31/24 16:00 90 22 H 03/31/24 16:00 90 25 H 03/31/24 16:00 96.9 F L 90 25 H 96/73 L 94 03/31/24 16:00 40 03/31/24 16:00 190 H 03/31/24 16:00 190 H 25 H 94 Mechanical Ventilation 40 Intake/Output Intake/Output: Intake & Output 03/29/24 03/30/24 03/31/24 04/01/24 23:59 23:59 23:59 23:59 Intake Total 2837.6 2340.0 1929.6 1387.0 Output Total 850 410 425 325 Balance 1987.6 1930.0 1504.6 1062.0 Meds/Results Medications: Active Medications Generic Name Dose Route Start Last Admin Trade Name Freq PRN Reason Stop Dose Admin Acetaminophen 650 mg 03/27/24 14:41 03/29/24 05:11 Acetaminophen 325 Mg Tablet PO 650 mg Q4H PRN Administration Mild Pain (1-3) or Fever Amiodarone HCl 400 mg 04/01/24 10:40 04/01/24 12:16 Amiodarone Hcl 200 Mg Tablet PO 400 mg DAILY [facility] Administration Apixaban 5 mg 03/27/24 12:35 03/31/24 20:32 Apixaban 5 Mg Tablet PO 5 mg Q12HR [facility] Administration Cyanocobalamin 1,000 mcg 03/27/24 17:00 04/01/24 09:37 Cyanocobalamin 1,000 Mcg Tablet PO 1,000 mcg BID [facility] Administration Dextrose 12.5 gm 03/27/24 08:57 Dextrose 50% 25 Gm/50 Ml Syringe IV PUSH PRN PRN Hypoglycemia Protocol Glucagon 1 mg 03/27/24 08:57 Glucagon For Inj 1 Mg Vial IM PRN PRN Hypoglycemia Protocol Glucose 15 gm 03/27/24 08:57 Glucose Oral Gel 15 Gm Of Glucse In 37.5 Gm Tube PO PRN PRN Hypoglycemia Protocol Hydrocortisone Sodium Succinate 50 mg 04/01/24 09:00 04/01/24 09:38 Hydrocortisone Sodium Succinate 100 Mg/2 Ml Vial IV PUSH 50 mg Q12HR [facility] Administration Dextrose 1,000 mls @ 100 mls/hr 03/27/24 08:57 Dextrose 5% 1,000 Ml IVPB PRN PRN Hypoglycemia Protocol Fentanyl Citrate 2,500 mcg in 250 mls @ 10 mls/hr 03/28/24 15:45 04/01/24 14:00 Fentanyl 2,500 Mcg/Ns 250 Ml IV CONT 100 mcg/hr .Q25H [facility] 10 mls/hr Titration Protocol 100 MCG/HR Midazolam HCl 100 mg in 100 mls @ 4 mls/hr 03/28/24 19:30 04/01/24 14:00 Versed 100 Mg/Ns 100 Ml IV CONT 4 mg/hr .Q25H [facility] 4 mls/hr Titration Protocol 4 MG/HR Cefepime HCl 2 gm in 50 mls @ 100 mls/hr 03/30/24 18:00 04/01/24 05:31 Maxipime 2 Gm/Ns 50 Ml IVPB 04/02/24 23:59 Infused Q12H [facility] Infusion Insulin Human Regular 100 100 mls @ 18.2 mls/hr 04/01/24 12:10 04/01/24 14:53 units/ Sodium Chloride IV CONT 18.2 units/hr .Q5H30M [facility] 18.2 mls/hr Titration Protocol 18.2 UNITS/HR Insulin Aspart 4 - 8 units 03/29/24 13:00 04/01/24 09:59 Insulin Aspart (*Bkc) 100 Units/Ml SUB-Q Not Given Q4HR [facility] Protocol Insulin Glargine 60 units 04/01/24 09:00 04/01/24 09:39 Insulin Glargine (*Bkc) 100 Units/Ml SUB-Q 60 units Q12HR [facility] Administration Metoprolol Tartrate 25 mg 04/01/24 10:40 04/01/24 12:16 Metoprolol Tartrate 25 Mg Tablet PO 25 mg Q6HR [facility] Administration Multi-Ingred Cream/Lotion/Oil/Oint 1 applic 03/28/24 21:00 04/01/24 09:39 Mineral Oil/White Petrolatum Ointment EACH EYE 1 applic Q12HR [facility] Administration Pantoprazole Sodium 40 mg 03/29/24 09:00 04/01/24 09:36 Pantoprazole Sodium Iv 40 Mg Vial IV PUSH 40 mg DAILY [facility] Administration Rosuvastatin Calcium 20 mg 03/28/24 09:00 03/31/24 09:28 Rosuvastatin 20 Mg Tablet PO Not Given DAILY [facility] Sodium Chloride 10 ml 03/28/24 22:00 04/01/24 13:58 Central Line Flush IV PUSH 10 ml Q8HR [facility] Administration Sodium Chloride 10 ml 03/28/24 16:14 Central Line Flush IV PUSH PRN PRN with TPN bag changes Sodium Chloride 20 ml 03/28/24 16:14 Central Line Flush IV PUSH PRN PRN after blood draws Radiology Results: ITS Impressions Chest CTA 03/27/24 06:41 Impression: No evidence of pulmonary embolus, aortic dissection, or aortic aneurysm. Extensive right lower lobe pneumonia. Probable mildly prominent reactive lymphadenopathy the right axilla and subcarinal region. Head CT 03/28/24 22:59 IMPRESSION: 1. Normal brain. Abdomen X-Ray 03/29/24 08:59 IMPRESSION: 1. Lines and tubes in expected positions. 2. Diffuse bilateral lung disease, right greater than left, consistent with multifocal pneumonia. Renal Ultrasound 03/31/24 15:34 IMPRESSION: No hydronephrosis. Perinephric fluid collection adjacent to the left lower pole. Abdomen Ultrasound 03/31/24 15:39 IMPRESSION: Status post cholecystectomy. Pancreas poorly visualized. Otherwise normal abdominal ultrasound findings. Chest X-Ray 04/01/24 05:32 Impression: 1: Bilateral asymmetric airspace disease slightly improved on the left, pneumonia versus edema. Labs Labs: Laboratory Results - last 24 hr 04/01/24 04:09 WBC 9.8 Hgb 11.6 L Hct 35.1 L Plt Count 201 Sodium 133 L Potassium 3.9 Chloride 97 L Carbon Dioxide 26 Anion Gap 10 BUN 90 H D Creatinine 2.51 H Estim Creat Clear Calc 27 Estimated GFR 19 L Glucose 375 H Calcium 8.5 Phosphorus 3.4 Magnesium 2.5 H Total Bilirubin 0.8 AST 346 H ALT 720 H Alkaline Phosphatase 245 H Total Protein 5.0 L Albumin 2.9 L
[2024-04-01] MEDS: AMIODARONE HCL 200 MG TABLET 400 MG PO (12:16)
[2024-04-01] MEDS: METOPROLOL TARTRATE 25 MG TABLET PO ×3 (12:16→23:46)
[2024-04-01] MEDS: INSULIN HUMAN REGULAR (*BKC) 100 UNITS in SODIUM CHLORIDE 0.9% IV 99 ML 15.7 UNITS IV CONT (12:47)
[2024-04-01 12:49] LABS: Phosphorus 3.4 mg/dL (2.5-4.5)
--- NOTE | 2024-04-01 14:38 | PM.IMPN ---
Progress Note: A&P Assessment and Plan (1) Acute hypoxic respiratory failure: Code(s): J96.01 - Acute respiratory failure with hypoxia Status: Acute Assessment and Plan: Acute hypoxic respiratory failure secondary to pneumonia and possible CHF. RSV positive as well. CTA chest (03/27) showing no evidence of PE, aortic dissection, or aortic aneurysm but with extensive right lower lobe pneumonia. Probable mildly prominent reactive lymphadenopathy in the right axilla and subcarinal region. Patient was emergently intubated 03/28 CXR now showing bilateral asymmetric airspace disease with improvement on the left. Able to wean down to 40% FiO2 and PEEP 8 Continue Versed and fentanyl for sedation Wean settings as tolerated. (2) Septic shock: Code(s): A41.9 - Sepsis, unspecified organism; R65.21 - Severe sepsis with septic shock Status: Acute Assessment and Plan: Sepsis secondary to community-acquired pneumonia Blood cultures NGTD Sputum culture Negative Urine Legionella negative; pneumococcal antigen pending Started on vancomycin, cefepime, azithromycin. PCT 4.4. MRSA nasal swab negative. RSV positive. COVID and influenza PCR negative. Weaned off vasopressin 03/31. She has already been weaned off Levophed Hydrocortisone for severe pneumonia and shock She receive 25% albumin Monitor BP closely off pressors (3) Community acquired pneumonia: Code(s): J18.9 - Pneumonia, unspecified organism Status: Acute Assessment and Plan: As above (4) Atrial fibrillation with RVR: Code(s): I48.91 - Unspecified atrial fibrillation Status: Acute Assessment and Plan: Patient was given IV metoprolol and IV Cardizem with no response. She was transferred to IMU and a Cardizem drip was started with little response on heart rates. She continued to have heart rates in the 120s to 140s range. Cardizem was stopped and amiodarone was given as a bolus and a drip was started. Echo was very technically difficult study with limited views, LV EF 50-55%. TSH was normal. Echo showing EF 50-55%. Atrial fibrillation is rate controlled. Continue amiodarone infusion ordered by Cardiology (5) Diabetes: Code(s): E11.9 - Type 2 diabetes mellitus without complications Status: Chronic Assessment and Plan: The patient's blood glucose was reviewed on 04/01 Glucose remains poorly controlled. Continue AccuCheks covering with sliding scale. Hypoglycemia protocol available as needed. Continue to monitors. Lantus advacned again (6) Altered mental status: Code(s): R41.82 - Altered mental status, unspecified Status: Acute Assessment and Plan: Likely secondary to hypoxic. CT head (03/27) that was unremarkable Repeat head CT on 03/28 again was normal. Ammonia and TSH normal She does not follow commands Sedation holiday (7) VINCENT (acute kidney injury): Code(s): N17.9 - Acute kidney failure, unspecified Status: Acute Assessment and Plan: Increase in creatinine and drop in urine output likely secondary to shock Patient is overall volume overloaded Albumin bolus given once 03/30 Cr worse today at 2.5 but rise is slower. Jeny <5, UCr 186 and FENa 0.03. Echo showing EF 50-55%. Ueos negative. Renal US showing normal sized kidneys with normal renal parenchyma but with a perinephric fluid collection adjacent to the left lower pole. UA showing 21-50WBC, N/LE negative. UCx ordered. No budding yeast UOP poor with about 400mL per day. 500mL today so far. Hold diuretics and maintain mean arterial pressure. May need more fluid. Discussed with nephrology (8) Transaminitis: Code(s): R74.01 - Elevation of levels of liver transaminase levels Status: Acute Assessment and Plan: LFTs higher today. [place] related to shock liver. Hepatitis panel negative RUQ US showing no acute findings. She is s/p cholecystectomy. Crestor stopped. Consider holding Amio but will defer to Cardiology. AST trending down. Follow (9) RSV (respiratory syncytial virus pneumonia): Code(s): J12.1 - Respiratory syncytial virus pneumonia Status: Acute Assessment and Plan: As above. Plan DVT prophylaxis - SCDs Code Status - Full Code Subjective Date/time seen: 04/01/24 14:38 Interval history: 68yo female with AFib s/p SHAYY cardioversion that was unsuccessful, KAREN not using CPAP, DM, HTN and endometrial cancer who presents with shortness of breath, leg swelling and weight gain over the past few weeks. Patient remains intubated and sedated.No problems overnight per RN. UOP poor overnight. Review of Systems Review of Systems: ROS unobtainable: Yes unobtainable due to endotracheal tube Exam Narrative: AF 97.5 103/70 108 27 95% MV Gen - intubated and sedated HEENT - ETT and OGT secured. Chest - clear anteriorly. CV - irregularly irregular. Tele showing AFib with mostly controlled rate. Abd - Soft, obese, +BS - Can secured draining clear yellow urine Ext - trace pedal edema Neuro - sedated. does not follows commands Skin - Warm and dry Objective Data Vital Signs Vital Signs: Vital Signs - 24 hr 03/31/24 16:00 03/31/24 16:00 03/31/24 16:00 Temperature Pulse Rate 190 H 190 H Respiratory Rate 25 H Blood Pressure Pulse Oximetry 94 Oxygen Delivery Mechanical Ventilation Fraction of Inspired Oxygen 40 40 03/31/24 16:00 03/31/24 16:00 03/31/24 16:00 Temperature 96.9 F L Pulse Rate 90 90 90 Respiratory Rate 25 H 25 H 22 H Blood Pressure 96/73 L Pulse Oximetry 94 Oxygen Delivery Fraction of Inspired Oxygen 03/31/24 17:14 03/31/24 18:00 03/31/24 18:00 Temperature 97.1 F L Pulse Rate 92 96 96 Respiratory Rate 25 H Blood Pressure 105/67 Pulse Oximetry 95 95 Oxygen Delivery Mechanical Ventilation Fraction of Inspired Oxygen 40 03/31/24 18:00 03/31/24 18:00 03/31/24 20:00 Temperature Pulse Rate 91 90 103 H Respiratory Rate 25 H 22 H 23 H Blood Pressure Pulse Oximetry 95 Oxygen Delivery Mechanical Ventilation Fraction of Inspired Oxygen 40 03/31/24 20:00 03/31/24 20:00 03/31/24 20:00 Temperature 97.3 F L Pulse Rate 103 H 103 H Respiratory Rate 23 H 23 H Blood Pressure 107/64 Pulse Oximetry 95 Oxygen Delivery Fraction of Inspired Oxygen 40 03/31/24 20:00 03/31/24 20:00 03/31/24 20:00 Temperature Pulse Rate 103 H 103 H 103 H Respiratory Rate 23 H Blood Pressure 107/64 Pulse Oximetry Oxygen Delivery Fraction of Inspired Oxygen 03/31/24 20:05 03/31/24 22:00 03/31/24 22:00 Temperature 97.3 F L Pulse Rate 103 H 96 96 Respiratory Rate 26 H Blood Pressure 116/69 Pulse Oximetry 95 94 Oxygen Delivery Mechanical Ventilation Fraction of Inspired Oxygen 40 03/31/24 22:00 03/31/24 22:00 03/31/24 22:00 Temperature Pulse Rate 96 96 96 Respiratory Rate 26 H 26 H Blood Pressure 116/69 Pulse Oximetry Oxygen Delivery Fraction of Inspired Oxygen 03/31/24 23:00 03/31/24 23:01 03/31/24 23:11 Temperature Pulse Rate 87 87 96 Respiratory Rate Blood Pressure 110/71 110/71 Pulse Oximetry 94 Oxygen Delivery Mechanical Ventilation Fraction of Inspired Oxygen 40 04/01/24 00:00 04/01/24 00:00 04/01/24 00:00 Temperature 97.4 F L Pulse Rate 98 98 Respiratory Rate 25 H 25 H Blood Pressure 111/68 Pulse Oximetry 95 95 Oxygen Delivery Mechanical Ventilation Fraction of Inspired Oxygen 40 40 04/01/24 00:00 04/01/24 00:00 04/01/24 00:00 Temperature Pulse Rate 98 98 98 Respiratory Rate 25 H Blood Pressure 111/68 Pulse Oximetry Oxygen Delivery Fraction of Inspired Oxygen 04/01/24 00:00 04/01/24 02:00 04/01/24 02:00 Temperature 96.8 F L Pulse Rate 98 85 102 H Respiratory Rate 25 H 24 H Blood Pressure 115/75 Pulse Oximetry 93 Oxygen Delivery Fraction of Inspired Oxygen 04/01/24 02:00 04/01/24 02:00 04/01/24 02:00 Temperature Pulse Rate 102 H 102 H 102 H Respiratory Rate 24 H 24 H Blood Pressure 115/75 Pulse Oximetry Oxygen Delivery Fraction of Inspired Oxygen 04/01/24 02:02 04/01/24 02:51 04/01/24 03:15 Temperature Pulse Rate 97 103 H 102 H Respiratory Rate 23 H 29 H Blood Pressure Pulse Oximetry 93 Oxygen Delivery Mechanical Ventilation Fraction of Inspired Oxygen 40 04/01/24 03:30 04/01/24 04:00 04/01/24 04:00 Temperature Pulse Rate 109 H 100 100 Respiratory Rate 27 H 26 H 26 H Blood Pressure Pulse Oximetry Oxygen Delivery Fraction of Inspired Oxygen 04/01/24 04:00 04/01/24 04:00 04/01/24 04:00 Temperature 96.8 F L Pulse Rate 110 H 110 H 110 H Respiratory Rate 26 H 26 H Blood Pressure 119/77 Pulse Oximetry 93 93 Oxygen Delivery Mechanical Ventilation Fraction of Inspired Oxygen 40 04/01/24 04:00 04/01/24 04:00 04/01/24 05:07 Temperature Pulse Rate 110 H 101 H Respiratory Rate 29 H Blood Pressure 119/77 Pulse Oximetry Oxygen Delivery Fraction of Inspired Oxygen 40 04/01/24 05:07 04/01/24 05:08 04/01/24 05:08 Temperature Pulse Rate 101 H 94 94 Respiratory Rate 29 H 26 H 26 H Blood Pressure Pulse Oximetry Oxygen Delivery Fraction of Inspired Oxygen 04/01/24 05:08 04/01/24 06:00 04/01/24 06:00 Temperature 97 F L Pulse Rate 91 101 H 101 H Respiratory Rate 25 H Blood Pressure 120/72 Pulse Oximetry 93 93 Oxygen Delivery Mechanical Ventilation Fraction of Inspired Oxygen 40 04/01/24 06:00 04/01/24 06:00 04/01/24 06:00 Temperature Pulse Rate 97 101 H 97 Respiratory Rate 25 H 25 H Blood Pressure 120/72 Pulse Oximetry Oxygen Delivery Fraction of Inspired Oxygen 04/01/24 08:00 04/01/24 08:00 04/01/24 08:00 Temperature 97.1 F L Pulse Rate 94 104 H 104 H Respiratory Rate 26 H 24 H Blood Pressure 111/65 110/69 Pulse Oximetry 92 Oxygen Delivery Fraction of Inspired Oxygen 04/01/24 08:00 04/01/24 08:00 04/01/24 08:00 Temperature Pulse Rate 104 H 115 H Respiratory Rate 24 H Blood Pressure Pulse Oximetry 93 Oxygen Delivery Mechanical Ventilation Fraction of Inspired Oxygen 40 04/01/24 08:00 04/01/24 08:37 04/01/24 09:39 Temperature Pulse Rate 101 H 105 H Respiratory Rate Blood Pressure 99/73 L Pulse Oximetry 92 Oxygen Delivery Mechanical Ventilation Fraction of Inspired Oxygen 40 40 04/01/24 09:39 04/01/24 10:00 04/01/24 10:00 Temperature 97.5 F L Pulse Rate 105 H 95 110 H Respiratory Rate 26 H Blood Pressure 99/73 L 106/76 Pulse Oximetry 94 Oxygen Delivery Fraction of Inspired Oxygen 04/01/24 10:00 04/01/24 10:00 04/01/24 10:00 Temperature Pulse Rate 105 H 105 H 102 H Respiratory Rate 26 H 26 H Blood Pressure 114/62 Pulse Oximetry Oxygen Delivery Fraction of Inspired Oxygen 04/01/24 11:38 04/01/24 12:00 04/01/24 12:00 Temperature Pulse Rate 108 H 106 H 106 H Respiratory Rate 27 H 27 H Blood Pressure Pulse Oximetry 95 Oxygen Delivery Mechanical Ventilation Fraction of Inspired Oxygen 40 04/01/24 12:00 04/01/24 12:00 04/01/24 12:00 Temperature 97.6 F Pulse Rate 110 H 107 H Respiratory Rate 18 Blood Pressure 113/67 114/50 L Pulse Oximetry 94 94 Oxygen Delivery Mechanical Ventilation Fraction of Inspired Oxygen 40 04/01/24 12:00 04/01/24 12:00 04/01/24 12:16 Temperature Pulse Rate 103 H 108 H Respiratory Rate Blood Pressure Pulse Oximetry Oxygen Delivery Fraction of Inspired Oxygen 40 04/01/24 12:16 04/01/24 14:00 04/01/24 14:00 Temperature 97.5 F L Pulse Rate 104 H 88 91 Respiratory Rate 27 H 27 H Blood Pressure 103/70 Pulse Oximetry 95 Oxygen Delivery Fraction of Inspired Oxygen 04/01/24 14:00 04/01/24 14:00 04/01/24 14:07 Temperature Pulse Rate 92 89 108 H Respiratory Rate 27 H Blood Pressure Pulse Oximetry 95 Oxygen Delivery Mechanical Ventilation Fraction of Inspired Oxygen 40 Intake/Output Intake/Output: Intake & Output 03/29/24 03/30/24 03/31/24 04/01/24 23:59 23:59 23:59 23:59 Intake Total 2837.6 2340.0 1929.6 1367.5 Output Total 850 410 425 325 Balance 1987.6 1930.0 1504.6 1042.5 Meds/Results Medications: Active Medications Generic Name Dose Route Start Last Admin Trade Name Freq PRN Reason Stop Dose Admin Acetaminophen 650 mg 03/27/24 14:41 03/29/24 05:11 Acetaminophen 325 Mg Tablet PO 650 mg Q4H PRN Administration Mild Pain (1-3) or Fever Amiodarone HCl 400 mg 04/01/24 10:40 04/01/24 12:16 Amiodarone Hcl 200 Mg Tablet PO 400 mg DAILY LAVERNE Administration Apixaban 5 mg 03/27/24 12:35 03/31/24 20:32 Apixaban 5 Mg Tablet PO 5 mg Q12HR LAVERNE Administration Cyanocobalamin 1,000 mcg 03/27/24 17:00 04/01/24 09:37 Cyanocobalamin 1,000 Mcg Tablet PO 1,000 mcg BID LAVERNE Administration Dextrose 12.5 gm 03/27/24 08:57 Dextrose 50% 25 Gm/50 Ml Syringe IV PUSH PRN PRN Hypoglycemia Protocol Glucagon 1 mg 03/27/24 08:57 Glucagon For Inj 1 Mg Vial IM PRN PRN Hypoglycemia Protocol Glucose 15 gm 03/27/24 08:57 Glucose Oral Gel 15 Gm Of Glucse In 37.5 Gm Tube PO PRN PRN Hypoglycemia Protocol Hydrocortisone Sodium Succinate 50 mg 04/01/24 09:00 04/01/24 09:38 Hydrocortisone Sodium Succinate 100 Mg/2 Ml Vial IV PUSH 50 mg Q12HR LAVERNE Administration Dextrose 1,000 mls @ 100 mls/hr 03/27/24 08:57 Dextrose 5% 1,000 Ml IVPB PRN PRN Hypoglycemia Protocol Fentanyl Citrate 2,500 mcg in 250 mls @ 10 mls/hr 03/28/24 15:45 04/01/24 14:00 Fentanyl 2,500 Mcg/Ns 250 Ml IV CONT 100 mcg/hr .Q25H LAVERNE 10 mls/hr Titration Protocol 100 MCG/HR Midazolam HCl 100 mg in 100 mls @ 4 mls/hr 03/28/24 19:30 04/01/24 14:00 Versed 100 Mg/Ns 100 Ml IV CONT 4 mg/hr .Q25H LAVERNE 4 mls/hr Titration Protocol 4 MG/HR Cefepime HCl 2 gm in 50 mls @ 100 mls/hr 03/30/24 18:00 04/01/24 05:31 Maxipime 2 Gm/Ns 50 Ml IVPB 04/02/24 23:59 Infused Q12H LAVERNE Infusion Insulin Human Regular 100 100 mls @ 17.2 mls/hr 04/01/24 12:10 04/01/24 13:45 units/ Sodium Chloride IV CONT 17.2 units/hr .Q5H49M LAVERNE 17.2 mls/hr Titration Protocol 17.2 UNITS/HR Insulin Aspart 4 - 8 units 03/29/24 13:00 04/01/24 09:59 Insulin Aspart (*Bkc) 100 Units/Ml SUB-Q Not Given Q4HR [facility] Protocol Insulin Glargine 60 units 04/01/24 09:00 04/01/24 09:39 Insulin Glargine (*Bkc) 100 Units/Ml SUB-Q 60 units Q12HR LAVERNE Administration Metoprolol Tartrate 25 mg 04/01/24 10:40 04/01/24 12:16 Metoprolol Tartrate 25 Mg Tablet PO 25 mg Q6HR LAVERNE Administration Multi-Ingred Cream/Lotion/Oil/Oint 1 applic 03/28/24 21:00 04/01/24 09:39 Mineral Oil/White Petrolatum Ointment EACH EYE 1 applic Q12HR LAVERNE Administration Pantoprazole Sodium 40 mg 03/29/24 09:00 04/01/24 09:36 Pantoprazole Sodium Iv 40 Mg Vial IV PUSH 40 mg DAILY LAVERNE Administration Rosuvastatin Calcium 20 mg 03/28/24 09:00 03/31/24 09:28 Rosuvastatin 20 Mg Tablet PO Not Given DAILY LAVERNE Sodium Chloride 10 ml 03/28/24 22:00 04/01/24 13:58 Central Line Flush IV PUSH 10 ml Q8HR LAVERNE Administration Sodium Chloride 10 ml 03/28/24 16:14 Central Line Flush IV PUSH PRN PRN with TPN bag changes Sodium Chloride 20 ml 03/28/24 16:14 Central Line Flush IV PUSH PRN PRN after blood draws Radiology Results: ITS Impressions Chest CTA 03/27/24 06:41 Impression: No evidence of pulmonary embolus, aortic dissection, or aortic aneurysm. Extensive right lower lobe pneumonia. Probable mildly prominent reactive lymphadenopathy the right axilla and subcarinal region. Head CT 03/28/24 22:59 IMPRESSION: 1. Normal brain. Abdomen X-Ray 03/29/24 08:59 IMPRESSION: 1. Lines and tubes in expected positions. 2. Diffuse bilateral lung disease, right greater than left, consistent with multifocal pneumonia. Renal Ultrasound 03/31/24 15:34 IMPRESSION: No hydronephrosis. Perinephric fluid collection adjacent to the left lower pole. Abdomen Ultrasound 03/31/24 15:39 IMPRESSION: Status post cholecystectomy. Pancreas poorly visualized. Otherwise normal abdominal ultrasound findings. Chest X-Ray 04/01/24 05:32 Impression: 1: Bilateral asymmetric airspace disease slightly improved on the left, pneumonia versus edema. Labs Labs: Laboratory Results - last 24 hr 03/28/24 03/31/24 03/31/24 16:38 16: 17:15 WBC RBC Hgb Hct MCV MCH MCHC RDW Plt Count MPV Immature Gran % (Auto) Neut % (Auto) Lymph % (Auto) [place] % (Auto) Eos % (Auto) Baso % (Auto) Lymph # (Auto) [place] # (Auto) Eos # (Auto) Baso # (Auto) Abs Immat Gran (auto) Absolute Neuts (auto) Absolute Nucleated RBC Nucleated RBC % Platelet Estimate Poikilocytosis Ovalocytes [place] Cells Schistocytes Puncture Site ABG pH ABG pCO2 ABG pO2 ABG PO2/FiO2 Ratio ABG HCO3 ABG O2 Saturation ABG O2 Content ABG Base Excess A-a Gradient Oxyhemoglobin Total Hemoglobin O2 Delivery Device O2 Liters/Min Minute Volume Vent Rate Vent Mode FiO2 Tidal Volume PEEP Peak Inspir Pressure Pressure Support Sodium Potassium Chloride Carbon Dioxide Anion Gap BUN Creatinine Estim Creat Clear Calc Estimated GFR Glucose POC Capillary Glucose 353 H Calcium Phosphorus Magnesium Total Bilirubin AST ALT Alkaline Phosphatase Total Protein Albumin Urine Color Yellow Urine Appearance Turbid H Urine pH 5.0 Ur Specific [place] 1.024 Urine Protein 2+ H Urine Glucose (UA) 1+ H Urine Ketones Trace H Ur Blood (Man) 2+ H Urine Nitrate Negative Urine Bilirubin Negative Urine Urobilinogen 0.2 Ur Leukocyte Esterase Negative Add Ur Microanalysis Reviewed Urine RBC 3-5 H Urine WBC 21-50 H Ur Squamous Epith Cells Moderate H Amorphous Sediment Moderate H Urine Bacteria Trace Urine Casts Present Urine Mucus Present Urine Eosinophils None seen U Random Total Protein 101 Ur Random Urea 549 Hepatitis A IgM Ab Hep Bs Antigen Hep Bs Antibody Hep B Core IgM Ab Hepatitis C Ab Screen Ur L.pneumophila Ag Not detected Urine Pneumococcal Ag Not detected 03/31/24 03/31/24 04/01/24 20:14 22:53 04:09 WBC 9.8 RBC 3.82 L Hgb 11.6 L Hct 35.1 L MCV 91.9 MCH 30.4 MCHC 33.0 RDW 16.6 H Plt Count 201 MPV 10.6 H Immature Gran % (Auto) 2.4 H Neut % (Auto) 91.5 H Lymph % (Auto) 2.2 L [place] % (Auto) 2.9 Eos % (Auto) 0.2 Baso % (Auto) 0.8 Lymph # (Auto) 0.22 L [place] # (Auto) 0.3 Eos # (Auto) 0.0 Baso # (Auto) 0.1 Abs Immat Gran (auto) 0.23 H Absolute Neuts (auto) 9.0 H Absolute Nucleated RBC 0.000 Nucleated RBC % 0.0 Platelet Estimate Adequate Poikilocytosis 1+ Ovalocytes 1+ [place] Cells 1+ Schistocytes None seen Puncture Site ABG pH ABG pCO2 ABG pO2 ABG PO2/FiO2 Ratio ABG HCO3 ABG O2 Saturation ABG O2 Content ABG Base Excess A-a Gradient Oxyhemoglobin Total Hemoglobin O2 Delivery Device O2 Liters/Min Minute Volume Vent Rate Vent Mode FiO2 Tidal Volume PEEP Peak Inspir Pressure Pressure Support Sodium 133 L Potassium 3.9 Chloride 97 L Carbon Dioxide 26 Anion Gap 10 BUN 90 H D Creatinine 2.51 H Estim Creat Clear Calc 27 Estimated GFR 19 L Glucose 375 H POC Capillary Glucose 345 H 342 H Calcium 8.5 Phosphorus 3.4 Magnesium 2.5 H Total Bilirubin 0.8 AST 346 H ALT 720 H Alkaline Phosphatase 245 H Total Protein 5.0 L Albumin 2.9 L Urine Color Urine Appearance Urine pH Ur Specific [place] Urine Protein Urine Glucose (UA) Urine Ketones Ur Blood (Man) Urine Nitrate Urine Bilirubin Urine Urobilinogen Ur Leukocyte Esterase Add Ur Microanalysis Urine RBC Urine WBC Ur Squamous Epith Cells Amorphous Sediment Urine Bacteria Urine Casts Urine Mucus Urine Eosinophils U Random Total Protein Ur Random Urea Hepatitis A IgM Ab Negative Hep Bs Antigen Negative Hep Bs Antibody Hep B Core IgM Ab Hepatitis C Ab Screen Ur L.pneumophila Ag Urine Pneumococcal Ag 04/01/24 04/01/24 04/01/24 04:09 05:03 08:16 WBC RBC Hgb Hct MCV MCH MCHC RDW Plt Count MPV Immature Gran % (Auto) Neut % (Auto) Lymph % (Auto) [place] % (Auto) Eos % (Auto) Baso % (Auto) Lymph # (Auto) [place] # (Auto) Eos # (Auto) Baso # (Auto) Abs Immat Gran (auto) Absolute Neuts (auto) Absolute Nucleated RBC Nucleated RBC % Platelet Estimate Poikilocytosis Ovalocytes [place] Cells Schistocytes Puncture Site Right radial ABG pH 7.368 ABG pCO2 40.4 ABG pO2 71.4 L ABG PO2/FiO2 Ratio 1.79 ABG HCO3 22.7 ABG O2 Saturation 94.0 L ABG O2 Content 15.3 L ABG Base Excess -2.4 A-a Gradient 167.3 Oxyhemoglobin 92.2 Total Hemoglobin 11.8 L O2 Delivery Device Ventilator O2 Liters/Min Not Reportable Minute Volume Not Reportable Vent Rate 24 Vent Mode Cmv FiO2 40 Tidal Volume 400 PEEP 10 Peak Inspir Pressure Not Reportable Pressure Support Not Reportable Sodium Potassium Chloride Carbon Dioxide Anion Gap BUN Creatinine Estim Creat Clear Calc Estimated GFR Glucose POC Capillary Glucose 412 H Calcium Phosphorus Magnesium Total Bilirubin AST ALT Alkaline Phosphatase Total Protein Albumin Urine Color Urine Appearance Urine pH Ur Specific [place] Urine Protein Urine Glucose (UA) Urine Ketones Ur Blood (Man) Urine Nitrate Urine Bilirubin Urine Urobilinogen Ur Leukocyte Esterase Add Ur Microanalysis Urine RBC Urine WBC Ur Squamous Epith Cells Amorphous Sediment Urine Bacteria Urine Casts Urine Mucus Urine Eosinophils U Random Total Protein Ur Random Urea Hepatitis A IgM Ab Hep Bs Antigen Negative Hep Bs Antibody Negative Hep B Core IgM Ab Negative Hepatitis C Ab Screen Negative Ur L.pneumophila Ag Urine Pneumococcal Ag 04/01/24 11:43 WBC RBC Hgb Hct MCV MCH MCHC RDW Plt Count MPV Immature Gran % (Auto) Neut % (Auto) Lymph % (Auto) [place] % (Auto) Eos % (Auto) Baso % (Auto) Lymph # (Auto) [place] # (Auto) Eos # (Auto) Baso # (Auto) Abs Immat Gran (auto) Absolute Neuts (auto) Absolute Nucleated RBC Nucleated RBC % Platelet Estimate Poikilocytosis Ovalocytes [place] Cells Schistocytes Puncture Site ABG pH ABG pCO2 ABG pO2 ABG PO2/FiO2 Ratio ABG HCO3 ABG O2 Saturation ABG O2 Content ABG Base Excess A-a Gradient Oxyhemoglobin Total Hemoglobin O2 Delivery Device O2 Liters/Min Minute Volume Vent Rate Vent Mode FiO2 Tidal Volume PEEP Peak Inspir Pressure Pressure Support Sodium Potassium Chloride Carbon Dioxide Anion Gap BUN Creatinine Estim Creat Clear Calc Estimated GFR Glucose POC Capillary Glucose 419 H Calcium Phosphorus Magnesium Total Bilirubin AST ALT Alkaline Phosphatase Total Protein Albumin Urine Color Urine Appearance Urine pH Ur Specific [place] Urine Protein Urine Glucose (UA) Urine Ketones Ur Blood (Man) Urine Nitrate Urine Bilirubin Urine Urobilinogen Ur Leukocyte Esterase Add Ur Microanalysis Urine RBC Urine WBC Ur Squamous Epith Cells Amorphous Sediment Urine Bacteria Urine Casts Urine Mucus Urine Eosinophils U Random Total Protein Ur Random Urea Hepatitis A IgM Ab Hep Bs Antigen Hep Bs Antibody Hep B Core IgM Ab Hepatitis C Ab Screen Ur L.pneumophila Ag Urine Pneumococcal Ag
[2024-04-01 14:54] LABS: Anion Gap 13 mmol/L (4-12); Blood Urea Nitrogen 103 mg/dL (7-17); Calcium 8.6 mg/dL (8.4-10.2); Carbon Dioxide 24 mmol/L (22-30); Chloride 99 mmol/L (98-107); Estimated CRCL calculation 28 ml/min; Estimated Glomerular Filt Rate 17; Glucose 330 mg/dL (65-110); Potassium 3.7 mmol/L (3.4-5.0); Sodium 136 mmol/L (137-145); Triglycerides 110 mg/dL (<150)
[2024-04-01 15:03] LABS: Glucose Point of Care 375 mg/dl (65-105)
[2024-04-01 15:03] LABS: Glucose Point of Care 366 mg/dl (65-105)
[2024-04-01 15:03] LABS: Glucose Point of Care 307 mg/dl (65-105)
[2024-04-01 15:55] LABS: Glucose Point of Care 253 mg/dl (65-105)
[2024-04-01 16:59] LABS: Glucose Point of Care 197 mg/dl (65-105)
[2024-04-01 17:52] LABS: Glucose Point of Care 176 mg/dl (65-105)
[2024-04-01 17:56] LABS: Anion Gap 11 mmol/L (4-12); Blood Urea Nitrogen 101 mg/dL (7-17); Calcium 8.7 mg/dL (8.4-10.2); Carbon Dioxide 26 mmol/L (22-30); Chloride 101 mmol/L (98-107); Estimated CRCL calculation 27 ml/min; Estimated Glomerular Filt Rate 16; Glucose 175 mg/dL (65-110); Potassium 3.5 mmol/L (3.4-5.0); Sodium 138 mmol/L (137-145)
[2024-04-01] MEDS: INSULIN HUMAN REGULAR (*BKC) 100 UNITS in SODIUM CHLORIDE 0.9% IV 99 ML IV CONT (18:45)
[2024-04-01 18:57] LABS: Glucose Point of Care 155 mg/dl (65-105)
[2024-04-01 19:47] LABS: Glucose Point of Care 193 mg/dl (65-105)
[2024-04-01 20:58] LABS: Glucose Point of Care 185 mg/dl (65-105)
[2024-04-01 22:20] LABS: Anion Gap 10 mmol/L (4-12); Blood Urea Nitrogen 105 mg/dL (7-17); Calcium 8.7 mg/dL (8.4-10.2); Carbon Dioxide 26 mmol/L (22-30); Chloride 100 mmol/L (98-107); Estimated CRCL calculation 26 ml/min; Estimated Glomerular Filt Rate 15; Glucose 182 mg/dL (65-110); Sodium 136 mmol/L (137-145)
[2024-04-01 22:44] LABS: Glucose Point of Care 176 mg/dl (65-105)
[2024-04-01 22:45] LABS: Glucose Point of Care 202 mg/dl (65-105)
[2024-04-02] VITALS (45 sets, daily range): BP systolic 81–119; BP diastolic 53–82; PULSE 74–111; RESP 13–28; TEMP 30.5–37; O2SAT 90–95
[2024-04-02 01:04] LABS: Glucose Point of Care 214 mg/dl (65-105)
[2024-04-02 01:06] LABS: Glucose Point of Care 263 mg/dl (65-105)
[2024-04-02 01:55] LABS: Glucose Point of Care 235 mg/dl (65-105)
[2024-04-02 02:12] LABS: Anion Gap 11 mmol/L (4-12); Blood Urea Nitrogen 114 mg/dL (7-17); Calcium 8.7 mg/dL (8.4-10.2); Carbon Dioxide 25 mmol/L (22-30); Chloride 100 mmol/L (98-107); Estimated CRCL calculation 28 ml/min; Estimated Glomerular Filt Rate 16; Glucose 238 mg/dL (65-110); Sodium 136 mmol/L (137-145)
[2024-04-02 02:45] LABS: Glucose Point of Care 244 mg/dl (65-105)
[2024-04-02] MEDS: MIDAZOLAM 100MG/NS 100ML(*CRX) 100 MG/100 ML BAG IV CONT (03:37)
[2024-04-02 03:59] LABS: Glucose Point of Care 253 mg/dl (65-105)
[2024-04-02 04:55] LABS: Glucose Point of Care 241 mg/dl (65-105)
[2024-04-02] MEDS: CEFEPIME 2 GM/NS 50 ML 2 GM/50 ML BAG IVPB (05:08)
[2024-04-02] MEDS: CENTRAL LINE FLUSH 10 ML IV PUSH ×3 (05:09→21:41)
[2024-04-02] MEDS: METOPROLOL TARTRATE 25 MG TABLET PO ×3 (05:09→23:38)
[2024-04-02 05:26] LABS: Alveolar/Arterial O2 Gradient 159.1 mmHg; Fractional Inspired Oxygen 40 %; HCO3 ABG 23.4 mEq/l (22.0-26.0); Oxygen Content ABG 16.8 %vol (16.0-22.0); Oxygen Saturation ABG 95.1 % (95.0-100.0); Oxyhemoglobin 94.7 % THb (90.0-100.0); PCO2 ABG 41.9 mmHg (35.0-45.0); PO2 ABG 77.9 mmHg (80.0-100.0); PO2 FiO2 Ratio Arterial Blood 1.95 %; Total Hemoglobin 12.6 g/dL (12.0-18.0); pH ABG 7.364 (7.350-7.450)
[2024-04-02 05:27] LABS: Modified Allen's Test Pass; Site Drawn RIGHT RADIAL
[2024-04-02 05:28] LABS: Arterial Blood Gas PEEP 10 cmH2O; Arterial Blood Gas Tidal Volume 400 ml; Arterial Blood Gas Vent Mode CMV; Arterial Blood Gas Ventilator rate 24 /MIN; Device VENTILATOR
[2024-04-02 05:57] LABS: Glucose Point of Care 225 mg/dl (65-105)
[2024-04-02 05:58] LABS: Anion Gap 12 mmol/L (4-12); Blood Urea Nitrogen 116 mg/dL (7-17); Calcium 8.5 mg/dL (8.4-10.2); Carbon Dioxide 24 mmol/L (22-30); Chloride 100 mmol/L (98-107); Estimated CRCL calculation 24 ml/min; Estimated Glomerular Filt Rate 14; Glucose 245 mg/dL (65-110); Magnesium 2.7 mg/dL (1.6-2.3); Potassium 4.1 mmol/L (3.4-5.0); Sodium 136 mmol/L (137-145)
[2024-04-02] MEDS: FENTANYL 2,500MCG/NS250ML(*CRX 2,500 MCG/250 ML BAG 10 MCG IV CONT (06:02)
[2024-04-02 06:54] LABS: Glucose Point of Care 236 mg/dl (65-105)
[2024-04-02] MEDS: MIDAZOLAM HCL (*CRX) 2 MG/2 ML VIAL IV PUSH (08:11)
--- NOTE | 2024-04-02 09:04 | P.PNINT_ITS ---
Progress Note: A&P Assessment and Plan (1) Acute hypoxic respiratory failure: Code(s): J96.01 - Acute respiratory failure with hypoxia Status: Acute Assessment and Plan: Acute hypoxic respiratory failure secondary to pneumonia and congestive heart failure 03/27 CTA chest No evidence of pulmonary embolus, aortic dissection, or aortic aneurysm. Extensive right lower lobe pneumonia. Probable mildly prominent reactive lymphadenopathy the right axilla and subcarinal region. Patient now emergently intubated 03/28 Chest x-ray and ABG reviewed Currently PEEP to 10 and FiO2 is down to 40 per Hold further crystal IV fluid Continue Versed and fentanyl for sedation Repeat PCR was positive RSV -isolation Complete course of hydrocortisone will discontinue completely. Start dialysis to remove fluid (2) Sepsis: Code(s): A41.9 - Sepsis, unspecified organism Status: Acute Assessment and Plan: Sepsis secondary to community-acquired pneumonia Blood cultures ordered and negative till now Pain sputum culture Urine Legionella and pneumococcal antigen negative Continue empiric cefepime azithromycin. procalcitonin level 4.4 MRSA screen negative. Vancomycin discontinued (3) Diabetes: Code(s): E11.9 - Type 2 diabetes mellitus without complications Status: Chronic Assessment and Plan: Currently on insulin infusion Continue Lantus to 60 units q.12 Steroids are being discontinued and dialysis being started anticipate glycemic control improved and we will be able to wean off insulin infusion Continue tube feed (4) Atrial fibrillation with RVR: Code(s): I48.91 - Unspecified atrial fibrillation Status: Acute Assessment and Plan: Patient was amiodarone infusion which has been switched to p.o. amiodarone per tube metoprolol by Cardiology Patient is anticoagulated with Eliquis which will be restart after dialysis catheter insertion Echo Summary 1. Very technically difficult study with limited views. 2. Left ventricular chamber dimension is normal. 3. Left ventricular systolic function is at lower limits of normal, estimated at 50-55%. 4. Left atrial chamber dimension is moderately enlarged (5) Community acquired pneumonia: Code(s): J18.9 - Pneumonia, unspecified organism Status: Acute Assessment and Plan: See above (6) Altered mental status: Code(s): R41.82 - Altered mental status, unspecified Status: Acute Assessment and Plan: Likely secondary to hypoxic. Patient had CT scan of the head recently done which was unremarkable Repeat head CT on 01/27 was again on remark And ammonia normal TSH was normal (7) Electrolyte abnormality: Code(s): E87.8 - Other disorders of electrolyte and fluid balance, not elsewhere classified Status: Acute Assessment and Plan: Improved after placement. Continue to monitor (8) Shock: Code(s): R57.9 - Shock, unspecified Status: Acute Assessment and Plan: Patient was on Levophed and vasopressin infusion which are currently off Continue hydrocortisone but start tapering She did receive 25% albumin Hold further crystalloids (9) VINCENT (acute kidney injury): Code(s): N17.9 - Acute kidney failure, unspecified Status: Acute Assessment and Plan: Increase in creatinine and drop in urine output likely secondary to shock Patient received IV fluids and 5% albumin earlier the course. norm CK level Renal ultrasound showed No hydronephrosis. Perinephric fluid collection adjacent to the left lower pole. Nephrology follow Continued maintain mean arterial pressure with vasopressors Creatinine increased to 3.3 and urine output remains low Discussed with automotive worker foreman and patient's family. Discussed risks and benefits of starting hemodialysis. Mechanical Commissioning Engineer and patient's family in agreement. Patient's consented to proceed. Temporary dialysis catheter placed. Mechanical Commissioning Engineer as scheduled dialysis (10) Elevated liver enzymes: Code(s): R74.8 - Abnormal levels of other serum enzymes Status: Acute Assessment and Plan: Patient is status post cholecystectomy Elevated AST ALT and alkaline phosphatase likely secondary to shock liver Hold statin Right upper quadrant ultrasound - Status post cholecystectomy. Pancreas poorly visualized. Otherwise normal abdominal ultrasound findings. Monitor Plan DVT prophylaxis -Eliquis Stress ulcer prophylaxis -protonix Nutrition -continue tube feed Code Status - Full Code 03/31 I spoke to patient's and daughter at bedside and updated them with patient's current status including septic shock, respiratory failure, AFib with RVR, VINCENT and worsening renal function and possibility of patient needing dialysis. We also discussed her elevated liver enzymes. I answered all their question Case also discussed with hospitalist 04/01-updated at bedside answered all his questions. 04/02 spoke to patient's at bedside and answered all his questions. Updated him with patient's status Total Critical Care Time - 32 minutes Due to a high probability of clinically significant, life threatening deterioration, the patient required my highest level of preparedness to intervene emergently and I personally spent this critical care time directly and personally managing the patient. This critical care time included obtaining a history; examining the patient; pulse oximetry; ordering and review of studies; arranging urgent treatment with development of a management plan; evaluation of patient's response to treatment; frequent reassessment; and discussions with other providers. It was exclusive of separately billable procedures and treating other patients and teaching time. Please see Assessment and Plan section and the rest of the note for further information on patient assessment and treatment Subjective Date/time seen: 04/02/24 Overnight events reviewed. Afebrile Continues to be on mechanical ventilation 40% FiO2 and 10 of PEEP Off vasopressor Continues to be sedated with Versed and vent Tolerating tube feeds. Other Vitals acceptable Urine output remains low Interval history: 68yo female with AFib s/p SHAYY cardioversion that was unsuccessful, KAREN not using CPAP, DM, HTN and endometrial cancer who presents with shortness of breath, leg swelling and weight gain over the past few weeks. Now in with respiratory failure secondary to pneumonia with septic shock. Intubated and on mechanical ventilation Review of Systems Review of Systems: ROS unobtainable: Yes unobtainable due to endotracheal tube, unobtainable due to medical condition and unobtainable due to mental status Exam Narrative: General: Pt is now sedated, intubated and on mechanical ventilation peer Lungs/Chest: Trachea central Coarse BS B/L, Cardiac: RRR. Normal S1 S2. No murmurs Circulation: Pedal pulses are intact and symmetrical. Abdomen: Decreased bowel sounds. Morbidly Obese. Soft. NT. ND. Extremities: No clubbing, cyanosis or bilateral pitting edema present : Can in place Neurologic: Unable to assess due to emergent situation. PERRL Objective Data Vital Signs Vital Signs: Vital Signs - 24 hr 04/01/24 09:39 04/01/24 09:39 04/01/24 10:00 Temperature 36.4 C L Pulse Rate 105 H 105 H 95 Respiratory Rate 26 H Blood Pressure 99/73 L 99/73 L 106/76 Pulse Oximetry 94 Oxygen Delivery Fraction of Inspired Oxygen 04/01/24 10:00 04/01/24 10:00 04/01/24 10:00 Temperature Pulse Rate 110 H 105 H 105 H Respiratory Rate 26 H 26 H Blood Pressure Pulse Oximetry Oxygen Delivery Fraction of Inspired Oxygen 04/01/24 10:00 04/01/24 11:38 04/01/24 12:00 Temperature Pulse Rate 102 H 108 H 106 H Respiratory Rate 27 H Blood Pressure 114/62 Pulse Oximetry 95 Oxygen Delivery Mechanical Ventilation Fraction of Inspired Oxygen 40 04/01/24 12:00 04/01/24 12:00 04/01/24 12:00 Temperature 36.4 C Pulse Rate 106 H 110 H 107 H Respiratory Rate 27 H 18 Blood Pressure 113/67 114/50 L Pulse Oximetry 94 Oxygen Delivery Fraction of Inspired Oxygen 04/01/24 12:00 04/01/24 12:00 04/01/24 12:00 Temperature Pulse Rate 103 H Respiratory Rate Blood Pressure Pulse Oximetry 94 Oxygen Delivery Mechanical Ventilation Fraction of Inspired Oxygen 40 40 04/01/24 12:16 04/01/24 12:16 04/01/24 14:00 Temperature 36.4 C L Pulse Rate 108 H 104 H 88 Respiratory Rate 27 H Blood Pressure 103/70 Pulse Oximetry 95 Oxygen Delivery Fraction of Inspired Oxygen 04/01/24 14:00 04/01/24 14:00 04/01/24 14:00 Temperature Pulse Rate 91 92 89 Respiratory Rate 27 H 27 H Blood Pressure Pulse Oximetry Oxygen Delivery Fraction of Inspired Oxygen 04/01/24 14:07 04/01/24 16:00 04/01/24 16:00 Temperature 36.2 C L Pulse Rate 108 H 83 Respiratory Rate 30 H Blood Pressure 99/52 L Pulse Oximetry 95 96 Oxygen Delivery Mechanical Ventilation Fraction of Inspired Oxygen 40 40 04/01/24 16:00 04/01/24 16:00 04/01/24 16:00 Temperature Pulse Rate 88 88 Respiratory Rate 29 H 29 H Blood Pressure Pulse Oximetry 97 Oxygen Delivery Mechanical Ventilation Fraction of Inspired Oxygen 40 04/01/24 16:00 04/01/24 16:53 04/01/24 17:01 Temperature Pulse Rate 100 93 85 Respiratory Rate Blood Pressure Pulse Oximetry 97 Oxygen Delivery Mechanical Ventilation Fraction of Inspired Oxygen 40 04/01/24 18:00 04/01/24 18:00 04/01/24 18:00 Temperature 36.1 C L Pulse Rate 75 81 78 Respiratory Rate 28 H 27 H 27 H Blood Pressure 100/66 Pulse Oximetry 95 Oxygen Delivery Fraction of Inspired Oxygen 04/01/24 18:00 04/01/24 19:52 04/01/24 20:00 Temperature Pulse Rate 81 87 86 Respiratory Rate 25 H 25 H Blood Pressure Pulse Oximetry Oxygen Delivery Fraction of Inspired Oxygen 04/01/24 20:00 04/01/24 20:00 04/01/24 20:00 Temperature Pulse Rate 87 Respiratory Rate 25 H Blood Pressure Pulse Oximetry 92 Oxygen Delivery Mechanical Ventilation Fraction of Inspired Oxygen 40 40 04/01/24 20:00 04/01/24 20:39 04/01/24 20:56 Temperature 36.1 C L Pulse Rate 86 84 97 Respiratory Rate 27 H Blood Pressure 95/62 L Pulse Oximetry 92 93 Oxygen Delivery Mechanical Ventilation Fraction of Inspired Oxygen 40 04/01/24 21:49 04/01/24 22:00 04/01/24 22:00 Temperature 36.0 C L Pulse Rate 85 91 91 Respiratory Rate 27 H 22 H 22 H Blood Pressure 102/57 L Pulse Oximetry 92 Oxygen Delivery Fraction of Inspired Oxygen 04/01/24 22:00 04/01/24 22:35 04/01/24 23:46 Temperature Pulse Rate 91 86 102 H Respiratory Rate Blood Pressure Pulse Oximetry 91 Oxygen Delivery Mechanical Ventilation Fraction of Inspired Oxygen 40 04/02/24 00:00 04/02/24 00:00 04/02/24 00:00 Temperature 36.2 C L Pulse Rate 77 Respiratory Rate 27 H Blood Pressure 112/71 Pulse Oximetry 93 93 Oxygen Delivery Mechanical Ventilation Fraction of Inspired Oxygen 40 40 04/02/24 00:00 04/02/24 00:00 04/02/24 00:00 Temperature Pulse Rate 93 93 77 Respiratory Rate 26 H 22 H Blood Pressure Pulse Oximetry Oxygen Delivery Fraction of Inspired Oxygen 04/02/24 02:00 04/02/24 02:00 04/02/24 02:00 Temperature 36.3 C L Pulse Rate 74 74 74 Respiratory Rate 27 H 27 H Blood Pressure 103/68 Pulse Oximetry 93 Oxygen Delivery Fraction of Inspired Oxygen 04/02/24 02:00 04/02/24 02:21 04/02/24 03:37 Temperature Pulse Rate 74 91 83 Respiratory Rate 27 H 27 H Blood Pressure Pulse Oximetry 93 Oxygen Delivery Mechanical Ventilation Fraction of Inspired Oxygen 40 04/02/24 03:37 04/02/24 04:00 04/02/24 04:00 Temperature Pulse Rate 83 93 93 Respiratory Rate 27 H 27 H 28 H Blood Pressure Pulse Oximetry Oxygen Delivery Fraction of Inspired Oxygen 04/02/24 04:00 04/02/24 04:00 04/02/24 04:00 Temperature 36.3 C L Pulse Rate 111 H Respiratory Rate 27 H Blood Pressure 110/63 Pulse Oximetry 93 93 Oxygen Delivery Mechanical Ventilation Fraction of Inspired Oxygen 40 40 04/02/24 04:00 04/02/24 05:09 04/02/24 05:12 Temperature Pulse Rate 111 H 99 98 Respiratory Rate Blood Pressure Pulse Oximetry 94 Oxygen Delivery Mechanical Ventilation Fraction of Inspired Oxygen 40 04/02/24 06:00 04/02/24 06:00 04/02/24 06:00 Temperature 36.3 C L Pulse Rate 83 83 80 Respiratory Rate 28 H 28 H 28 H Blood Pressure 104/61 Pulse Oximetry 94 Oxygen Delivery Fraction of Inspired Oxygen 04/02/24 06:00 04/02/24 06:02 04/02/24 06:02 Temperature Pulse Rate 80 86 86 Respiratory Rate 28 H 28 H Blood Pressure Pulse Oximetry Oxygen Delivery Fraction of Inspired Oxygen 04/02/24 08:00 04/02/24 08:48 Temperature 36.1 C L Pulse Rate 95 81 Respiratory Rate 20 Blood Pressure 94/59 L Pulse Oximetry 93 92 Oxygen Delivery Mechanical Ventilation Fraction of Inspired Oxygen 40 Intake/Output Intake/Output: Intake & Output 03/30/24 03/31/24 04/01/24 04/02/24 23:59 23:59 23:59 23:59 Intake Total 2340.0 1929.6 2517.8 1323.1 Output Total 410 425 500 405 Balance 1930.0 1504.6 2017.8 918.1 Meds/Results Medications: Active Medications Generic Name Dose Route Start Last Admin Trade Name Machoq PRN Reason Stop Dose Admin Acetaminophen 650 mg 03/27/24 14:41 03/29/24 05:11 Acetaminophen 325 Mg Tablet PO 650 mg Q4H PRN Administration Mild Pain (1-3) or Fever Amiodarone HCl 400 mg 04/01/24 10:40 04/01/24 12:16 Amiodarone Hcl 200 Mg Tablet PO 400 mg DAILY LAVERNE Administration Apixaban 5 mg 03/27/24 12:35 03/31/24 20:32 Apixaban 5 Mg Tablet PO 5 mg Q12HR LAVERNE Administration Cyanocobalamin 1,000 mcg 03/27/24 17:00 04/01/24 16:37 Cyanocobalamin 1,000 Mcg Tablet PO 1,000 mcg BID LAVERNE Administration Dextrose 12.5 gm 03/27/24 08:57 Dextrose 50% 25 Gm/50 Ml Syringe IV PUSH PRN PRN Hypoglycemia Protocol Glucagon 1 mg 03/27/24 08:57 Glucagon For Inj 1 Mg Vial IM PRN PRN Hypoglycemia Protocol Glucose 15 gm 03/27/24 08:57 Glucose Oral Gel 15 Gm Of Glucse In 37.5 Gm Tube PO PRN PRN Hypoglycemia Protocol Dextrose 1,000 mls @ 100 mls/hr 03/27/24 08:57 Dextrose 5% 1,000 Ml IVPB PRN PRN Hypoglycemia Protocol Fentanyl Citrate 2,500 mcg in 250 mls @ 10 mls/hr 03/28/24 15:45 04/02/24 06:02 Fentanyl 2,500 Mcg/Ns 250 Ml IV CONT 100 mcg/hr .Q25H LAVERNE 10 mls/hr Administration Protocol 100 MCG/HR Midazolam HCl 100 mg in 100 mls @ 5 mls/hr 03/28/24 19:30 04/02/24 06:00 Versed 100 Mg/Ns 100 Ml IV CONT 4 mg/hr .Q20H LAVERNE 4 mls/hr Titration Protocol 5 MG/HR Cefepime HCl 2 gm in 50 mls @ 100 mls/hr 03/30/24 18:00 04/02/24 05:38 Maxipime 2 Gm/Ns 50 Ml IVPB 04/02/24 23:59 Infused Q12H LAVERNE Infusion Insulin Human Regular 100 100 mls @ 3 mls/hr 04/01/24 12:10 04/02/24 07:49 units/ Sodium Chloride IV CONT 3 units/hr .Q24H LAVERNE 3 mls/hr Titration Protocol 3 UNITS/HR Albumin Human 50 mls @ 999 mls/hr 04/02/24 08:47 Albutein IVPB 04/03/24 08:46 Q10M PRN HYPOTENSION Sodium Chloride 1,000 mls @ 999 mls/hr 04/02/24 08:47 Normal Saline Iv IV CONT 04/02/24 09:47 .Q1H1M ONE Sodium Chloride 1,000 mls @ 0 mls/hr 04/02/24 08:47 Normal Saline Iv IV CONT 04/02/24 08:48 .Q0M ONE Per Protocol Insulin Aspart 4 - 8 units 03/29/24 13:00 04/01/24 09:59 Insulin Aspart (*Bkc) 100 Units/Ml SUB-Q Not Given Q4HR [facility] Protocol Insulin Glargine 60 units 04/01/24 09:00 04/01/24 20:45 Insulin Glargine (*Bkc) 100 Units/Ml SUB-Q 60 units Q12HR LAVERNE Administration Metoprolol Tartrate 25 mg 04/01/24 10:40 04/02/24 05:09 Metoprolol Tartrate 25 Mg Tablet PO 25 mg Q6HR LAVERNE Administration Multi-Ingred Cream/Lotion/Oil/Oint 1 applic 03/28/24 21:00 04/01/24 20:27 Mineral Oil/White Petrolatum Ointment EACH EYE 1 applic Q12HR LAVERNE Administration Pantoprazole Sodium 40 mg 03/29/24 09:00 04/01/24 09:36 Pantoprazole Sodium Iv 40 Mg Vial IV PUSH 40 mg DAILY LAVERNE Administration Rosuvastatin Calcium 20 mg 03/28/24 09:00 03/31/24 09:28 Rosuvastatin 20 Mg Tablet PO Not Given DAILY LAVERNE Sodium Chloride 10 ml 03/28/24 22:00 04/02/24 05:09 Central Line Flush IV PUSH 10 ml Q8HR LAVERNE Administration Sodium Chloride 10 ml 03/28/24 16:14 Central Line Flush IV PUSH PRN PRN with TPN bag changes Sodium Chloride 20 ml 03/28/24 16:14 Central Line Flush IV PUSH PRN PRN after blood draws Radiology Results: ITS Impressions Chest CTA 03/27/24 06:41 Impression: No evidence of pulmonary embolus, aortic dissection, or aortic aneurysm. Extensive right lower lobe pneumonia. Probable mildly prominent reactive lymphadenopathy the right axilla and subcarinal region. Head CT 03/28/24 22:59 IMPRESSION: 1. Normal brain. Abdomen X-Ray 03/29/24 08:59 IMPRESSION: 1. Lines and tubes in expected positions. 2. Diffuse bilateral lung disease, right greater than left, consistent with multifocal pneumonia. Renal Ultrasound 03/31/24 15:34 IMPRESSION: No hydronephrosis. Perinephric fluid collection adjacent to the left lower pole. Abdomen Ultrasound 03/31/24 15:39 IMPRESSION: Status post cholecystectomy. Pancreas poorly visualized. Otherwise normal abdominal ultrasound findings. Chest X-Ray 04/02/24 08:51 IMPRESSION: 1. New central line tip at superior cavoatrial junction. 2. Unchanged airspace opacities in right lung and left mid and lower lung zones, consistent with pneumonia. 3. Small right pleural effusion. Labs Labs: Laboratory Results - last 24 hr 04/01/24 04/01/24 04/01/24 04:09 11:43 12:46 Puncture Site ABG pH ABG pCO2 ABG pO2 ABG PO2/FiO2 Ratio ABG HCO3 ABG O2 Saturation ABG O2 Content ABG Base Excess A-a Gradient Oxyhemoglobin Total Hemoglobin O2 Delivery Device O2 Liters/Min Minute Volume Vent Rate Vent Mode FiO2 Tidal Volume PEEP Peak Inspir Pressure Pressure Support Sodium Potassium Chloride Carbon Dioxide Anion Gap BUN Creatinine Estim Creat Clear Calc Estimated GFR Glucose POC Capillary Glucose 419 H 375 H Calcium Phosphorus 3.4 Magnesium Triglycerides 04/01/24 04/01/24 04/01/24 13:43 14:26 14:53 Puncture Site ABG pH ABG pCO2 ABG pO2 ABG PO2/FiO2 Ratio ABG HCO3 ABG O2 Saturation ABG O2 Content ABG Base Excess A-a Gradient Oxyhemoglobin Total Hemoglobin O2 Delivery Device O2 Liters/Min Minute Volume Vent Rate Vent Mode FiO2 Tidal Volume PEEP Peak Inspir Pressure Pressure Support Sodium 136 L Potassium 3.7 Chloride 99 Carbon Dioxide 24 Anion Gap 13 H BUN 103 H D Creatinine 2.77 H Estim Creat Clear Calc 28 Estimated GFR 17 L Glucose 330 H POC Capillary Glucose 366 H 307 H Calcium 8.6 Phosphorus Magnesium Triglycerides 110 04/01/24 04/01/24 04/01/24 15:45 16:47 17:40 Puncture Site ABG pH ABG pCO2 ABG pO2 ABG PO2/FiO2 Ratio ABG HCO3 ABG O2 Saturation ABG O2 Content ABG Base Excess A-a Gradient Oxyhemoglobin Total Hemoglobin O2 Delivery Device O2 Liters/Min Minute Volume Vent Rate Vent Mode FiO2 Tidal Volume PEEP Peak Inspir Pressure Pressure Support Sodium 138 Potassium 3.5 Chloride 101 Carbon Dioxide 26 Anion Gap 11 BUN 101 H Creatinine 2.87 H Estim Creat Clear Calc 27 Estimated GFR 16 L Glucose 175 H POC Capillary Glucose 253 H 197 H Calcium 8.7 Phosphorus Magnesium Triglycerides 04/01/24 04/01/24 04/01/24 17:48 18:35 19:43 Puncture Site ABG pH ABG pCO2 ABG pO2 ABG PO2/FiO2 Ratio ABG HCO3 ABG O2 Saturation ABG O2 Content ABG Base Excess A-a Gradient Oxyhemoglobin Total Hemoglobin O2 Delivery Device O2 Liters/Min Minute Volume Vent Rate Vent Mode FiO2 Tidal Volume PEEP Peak Inspir Pressure Pressure Support Sodium Potassium Chloride Carbon Dioxide Anion Gap BUN Creatinine Estim Creat Clear Calc Estimated GFR Glucose POC Capillary Glucose 176 H 155 H 193 H Calcium Phosphorus Magnesium Triglycerides 04/01/24 04/01/24 04/01/24 20:48 21:45 21:52 Puncture Site ABG pH ABG pCO2 ABG pO2 ABG PO2/FiO2 Ratio ABG HCO3 ABG O2 Saturation ABG O2 Content ABG Base Excess A-a Gradient Oxyhemoglobin Total Hemoglobin O2 Delivery Device O2 Liters/Min Minute Volume Vent Rate Vent Mode FiO2 Tidal Volume PEEP Peak Inspir Pressure Pressure Support Sodium 136 L Potassium 4.0 Chloride 100 Carbon Dioxide 26 Anion Gap 10 BUN 105 H Creatinine 3.02 H Estim Creat Clear Calc 26 Estimated GFR 15 L Glucose 182 H POC Capillary Glucose 185 H 176 H Calcium 8.7 Phosphorus Magnesium Triglycerides 04/01/24 04/01/24 04/02/24 22:43 23:48 01:04 Puncture Site ABG pH ABG pCO2 ABG pO2 ABG PO2/FiO2 Ratio ABG HCO3 ABG O2 Saturation ABG O2 Content ABG Base Excess A-a Gradient Oxyhemoglobin Total Hemoglobin O2 Delivery Device O2 Liters/Min Minute Volume Vent Rate Vent Mode FiO2 Tidal Volume PEEP Peak Inspir Pressure Pressure Support Sodium Potassium Chloride Carbon Dioxide Anion Gap BUN Creatinine Estim Creat Clear Calc Estimated GFR Glucose POC Capillary Glucose 202 H 214 H 263 H Calcium Phosphorus Magnesium Triglycerides 04/02/24 04/02/24 04/02/24 01:49 01:57 02:42 Puncture Site ABG pH ABG pCO2 ABG pO2 ABG PO2/FiO2 Ratio ABG HCO3 ABG O2 Saturation ABG O2 Content ABG Base Excess A-a Gradient Oxyhemoglobin Total Hemoglobin O2 Delivery Device O2 Liters/Min Minute Volume Vent Rate Vent Mode FiO2 Tidal Volume PEEP Peak Inspir Pressure Pressure Support Sodium 136 L Potassium 4.0 Chloride 100 Carbon Dioxide 25 Anion Gap 11 BUN 114 H Creatinine 2.84 H Estim Creat Clear Calc 28 Estimated GFR 16 L Glucose 238 H POC Capillary Glucose 235 H 244 H Calcium 8.7 Phosphorus Magnesium Triglycerides 04/02/24 04/02/24 04/02/24 03:58 04:52 05:08 Puncture Site Right radial ABG pH 7.364 ABG pCO2 41.9 ABG pO2 77.9 L ABG PO2/FiO2 Ratio 1.95 ABG HCO3 23.4 ABG O2 Saturation 95.1 ABG O2 Content 16.8 ABG Base Excess -2.0 A-a Gradient 159.1 Oxyhemoglobin 94.7 Total Hemoglobin 12.6 O2 Delivery Device Ventilator O2 Liters/Min Not Reportable Minute Volume Not Reportable Vent Rate 24 Vent Mode Cmv FiO2 40 Tidal Volume 400 PEEP 10 Peak Inspir Pressure Not Reportable Pressure Support Not Reportable Sodium Potassium Chloride Carbon Dioxide Anion Gap BUN Creatinine Estim Creat Clear Calc Estimated GFR Glucose POC Capillary Glucose 253 H 241 H Calcium Phosphorus Magnesium Triglycerides 04/02/24 04/02/24 04/02/24 05:17 05:49 06:50 Puncture Site ABG pH ABG pCO2 ABG pO2 ABG PO2/FiO2 Ratio ABG HCO3 ABG O2 Saturation ABG O2 Content ABG Base Excess A-a Gradient Oxyhemoglobin Total Hemoglobin O2 Delivery Device O2 Liters/Min Minute Volume Vent Rate Vent Mode FiO2 Tidal Volume PEEP Peak Inspir Pressure Pressure Support Sodium 136 L Potassium 4.1 Chloride 100 Carbon Dioxide 24 Anion Gap 12 BUN 116 H Creatinine 3.30 H Estim Creat Clear Calc 24 Estimated GFR 14 L Glucose 245 H POC Capillary Glucose 225 H 236 H Calcium 8.5 Phosphorus Magnesium 2.7 H Triglycerides Quality VTE Prophylaxis VTE prophylaxis: pharmacologic ordered
[2024-04-02 09:09] LABS: Glucose Point of Care 233 mg/dl (65-105)
[2024-04-02 09:09] LABS: Glucose Point of Care 207 mg/dl (65-105)
--- NOTE | 2024-04-02 09:09 | WPDPROCEDUR ---
Procedures Central Line Placement Right IJ: Central Line Date: 04/02/24 Central Line Time: 08:30 Discussed w/ the patient/family/POA,the placement of a central venous catheter, including its clinical necessity/indication & associated potential risks, benifits and alternatives.: Yes The patient/family/POA understand(s) and acknowledge(s) the need to proceed with central venous catheter insertion as an important element of the patient's clinical management.: Yes Consent: I have discussed with the patient's and daughter, the non-emergent placement of a temporary dialysis venous catheter, including its clinical necessity/indication and associated potential risks and complications. The patient's understand(s) and acknowledge(s) the need to proceed with temporary dialysis venous catheter insertion as an important element of the patient's clinical management. Time Out Performed: Yes Patient Position: supine Patient placed on monitor/pulse ox: Yes Provider Prep: mask, sterile gown, sterile gloves, Max. sterile barrier precautions, cap and hand hygiene with conventional soap/water or alcohol based hand rub Central line prep: Povidone-Iodine 1% Sterile US Technique with sterile gel/sterile probe covers: Yes Central line lumen inserted: triple Length (cm): 16 Depth of Insertion (cm): 16 Post Procedure: sutured in place, good blood return, all ports aspirated, flushed, capped, transparent dressing and aseptic technique maintained throughout procedure Post procedure x-ray: tip of catheter in good position and no pneumothorax seen Patient tolerated procedure: well Complications: other Additional comments: No complications but it was difficult procedure as patient is morbidly obese with several skin folds in the neck. The dilation of the tract was difficult and required more than usual manipulation and pressure
[2024-04-02] MEDS: AMIODARONE HCL 200 MG TABLET 400 MG PO (09:14)
[2024-04-02] MEDS: PANTOPRAZOLE SODIUM IV 40 MG VIAL IV PUSH (09:14)
[2024-04-02] MEDS: CYANOCOBALAMIN 1,000 MCG TABLET 1000 MCG PO ×2 (09:14→16:40)
[2024-04-02] MEDS: MINERAL OIL/WHITE PETROLATUM OINTMENT 1 APPLIC EACH EYE ×2 (09:15→21:41)
[2024-04-02] MEDS: INSULIN GLARGINE (*BKC) 100 UNITS/ML 60 UNITS SUB-Q ×2 (09:17→21:41)
[2024-04-02 11:23] LABS: Glucose Point of Care 216 mg/dl (65-105)
[2024-04-02 11:23] LABS: Glucose Point of Care 210 mg/dl (65-105)
--- NOTE | 2024-04-02 12:06 | P.PNNP_ITS ---
Progress Note: A&P Assessment and Plan (1) VINCENT (acute kidney injury): Code(s): N17.9 - Acute kidney failure, unspecified Status: Acute Assessment and Plan: * as noted by trend of labs since admission * normal creatinine at baseline and on admission * multifactorial etiology: * hemodynamic instability/shock * infection/sepsis (pneumonia + RSV) * ARB + HCTZ use prior to admission * contrast (CTA of chest on 03/27) * hypoxia * afib with RVR * prerenal factors (?) * evaluation to date noted: * renal ultrasound without hydro * urine electrolytes prerenal * urine eosinophils negative * CPK normal * the patient is getting albumin. She had a few doses. * The blood pressure is better holding with a systolic above 100. He is off the pressors. * The patient's creatinine has risen in spite of holding diuretics. The blood pressure is better and the volume status does not look diminished anymore. * Because the numbers or worsen the patient is not dry I think we should go ahead and proceed with dialysis. * Dr. Robertson placed a temporary dialysis catheter already. * I had a lengthy talk with Britany. Because of the rising creatinine and the edema and volume overload by chest x-ray I think the patient needs dialysis and and needs to have some fluid removed. * There is a risk dialysis of course. Removing fluid and removing kidney poisons both can cause blood pressure to go down. Will gently remove fluid at 1st but then increase if the blood pressure tolerates it. * The blood pressure occasionally can go so low as to cause stroke heart attack or . However the dialysis nurses watch the blood pressure closely while dialyzing. * If we do not dialyze the patient's kidney poisons will continue to rise and the patient cannot survive without kidney function. * Will proceed with dialysis this afternoon. * Discussed with Dr. Robertson as well (2) Acute hypoxic respiratory failure: Code(s): J96.01 - Acute respiratory failure with hypoxia Status: Acute Assessment and Plan: * seconeary to pneumonia, RSV, and possible CHF * CTA of chest noted: * no evidence of pulmonary embolus, aortic dissection, or aortic aneurysm * extensive right lower lobe pneumonia * robable mildly prominent reactive lymphadenopathy the right axilla and subcarinal region * emergently intubated 03/28 * on steroids * follow respiratory status * remove some fluid with dialysis (3) Septic shock: Code(s): A41.9 - Sepsis, unspecified organism; R65.21 - Severe sepsis with septic shock Status: Acute Assessment and Plan: * secondary to extensive pneumonia +/- RSV * on cefepime * hemodynamically improved (4) Atrial fibrillation with RVR: Code(s): I48.91 - Unspecified atrial fibrillation Status: Acute Assessment and Plan: * heart rate good at 89 today * on Eliquis * Echo results noted * Cardiology following (5) Anemia: Code(s): D64.9 - Anemia, unspecified Status: Acute Assessment and Plan: * likely a manifestation of VINCENT and acute illness * check hemoglobin tomorrow (6) Community acquired pneumonia: Code(s): J18.9 - Pneumonia, unspecified organism Status: Acute Assessment and Plan: * as noted by admission imaging * follow cultures * on antibiotics (7) Elevated liver enzymes: Code(s): R74.8 - Abnormal levels of other serum enzymes Status: Acute Assessment and Plan: * thought to be secondary to shock liver * statin on hold * follow trend of liver enzymes (8) Diabetes: Code(s): E11.9 - Type 2 diabetes mellitus without complications Status: Chronic Assessment and Plan: * follow accu-cheks * glycemic control per hospitalist/mender [employer] Subjective Date/time seen: 04/02/24 12:06 Interval history: patient is on the ventilator and sedated. Daughter, Britany, is in the room we discussed the case. Exam Narrative: General: elderly but WD/WN female intubated/sedated and on mechanical ventilation Heart: IRRR, normal S1 and S2; no rub or gallop Lungs: coarse breath sounds; few crackles at bases Abdomen: soft, nontender, nondistended, positive bowel sounds Extremities: no cyanosis or clubbing; 1 to2+ bilateral edema, upper and lower extremities Skin: No rash Objective Data Vital Signs Vital Signs: Vital Signs - 24 hr 04/01/24 12:16 04/01/24 12:16 04/01/24 14:00 Temperature 97.5 F L Pulse Rate 108 H 104 H 88 Respiratory Rate 27 H Blood Pressure 103/70 Pulse Oximetry 95 Oxygen Delivery Fraction of Inspired Oxygen 04/01/24 14:00 04/01/24 14:00 04/01/24 14:00 Temperature Pulse Rate 91 92 89 Respiratory Rate 27 H 27 H Blood Pressure Pulse Oximetry Oxygen Delivery Fraction of Inspired Oxygen 04/01/24 14:07 04/01/24 16:00 04/01/24 16:00 Temperature 97.2 F L Pulse Rate 108 H 83 Respiratory Rate 30 H Blood Pressure 99/52 L Pulse Oximetry 95 96 Oxygen Delivery Mechanical Ventilation Fraction of Inspired Oxygen 40 40 04/01/24 16:00 04/01/24 16:00 04/01/24 16:00 Temperature Pulse Rate 88 88 Respiratory Rate 29 H 29 H Blood Pressure Pulse Oximetry 97 Oxygen Delivery Mechanical Ventilation Fraction of Inspired Oxygen 40 04/01/24 16:00 04/01/24 16:53 04/01/24 17:01 Temperature Pulse Rate 100 93 85 Respiratory Rate Blood Pressure Pulse Oximetry 97 Oxygen Delivery Mechanical Ventilation Fraction of Inspired Oxygen 40 04/01/24 18:00 04/01/24 18:00 04/01/24 18:00 Temperature 97 F L Pulse Rate 75 81 78 Respiratory Rate 28 H 27 H 27 H Blood Pressure 100/66 Pulse Oximetry 95 Oxygen Delivery Fraction of Inspired Oxygen 04/01/24 18:00 04/01/24 19:52 04/01/24 20:00 Temperature Pulse Rate 81 87 86 Respiratory Rate 25 H 25 H Blood Pressure Pulse Oximetry Oxygen Delivery Fraction of Inspired Oxygen 04/01/24 20:00 04/01/24 20:00 04/01/24 20:00 Temperature Pulse Rate 87 Respiratory Rate 25 H Blood Pressure Pulse Oximetry 92 Oxygen Delivery Mechanical Ventilation Fraction of Inspired Oxygen 40 40 04/01/24 20:00 04/01/24 20:39 04/01/24 20:56 Temperature 97.0 F L Pulse Rate 86 84 97 Respiratory Rate 27 H Blood Pressure 95/62 L Pulse Oximetry 92 93 Oxygen Delivery Mechanical Ventilation Fraction of Inspired Oxygen 40 04/01/24 21:49 04/01/24 22:00 04/01/24 22:00 Temperature 96.8 F L Pulse Rate 85 91 91 Respiratory Rate 27 H 22 H 22 H Blood Pressure 102/57 L Pulse Oximetry 92 Oxygen Delivery Fraction of Inspired Oxygen 04/01/24 22:00 04/01/24 22:35 04/01/24 23:46 Temperature Pulse Rate 91 86 102 H Respiratory Rate Blood Pressure Pulse Oximetry 91 Oxygen Delivery Mechanical Ventilation Fraction of Inspired Oxygen 40 04/02/24 00:00 04/02/24 00:00 04/02/24 00:00 Temperature 97.1 F L Pulse Rate 77 Respiratory Rate 27 H Blood Pressure 112/71 Pulse Oximetry 93 93 Oxygen Delivery Mechanical Ventilation Fraction of Inspired Oxygen 40 40 04/02/24 00:00 04/02/24 00:00 04/02/24 00:00 Temperature Pulse Rate 93 93 77 Respiratory Rate 26 H 22 H Blood Pressure Pulse Oximetry Oxygen Delivery Fraction of Inspired Oxygen 04/02/24 02:00 04/02/24 02:00 04/02/24 02:00 Temperature 97.3 F L Pulse Rate 74 74 74 Respiratory Rate 27 H 27 H Blood Pressure 103/68 Pulse Oximetry 93 Oxygen Delivery Fraction of Inspired Oxygen 04/02/24 02:00 04/02/24 02:21 04/02/24 03:37 Temperature Pulse Rate 74 91 83 Respiratory Rate 27 H 27 H Blood Pressure Pulse Oximetry 93 Oxygen Delivery Mechanical Ventilation Fraction of Inspired Oxygen 40 04/02/24 03:37 04/02/24 04:00 04/02/24 04:00 Temperature Pulse Rate 83 93 93 Respiratory Rate 27 H 27 H 28 H Blood Pressure Pulse Oximetry Oxygen Delivery Fraction of Inspired Oxygen 04/02/24 04:00 04/02/24 04:00 04/02/24 04:00 Temperature 97.4 F L Pulse Rate 111 H Respiratory Rate 27 H Blood Pressure 110/63 Pulse Oximetry 93 93 Oxygen Delivery Mechanical Ventilation Fraction of Inspired Oxygen 40 40 04/02/24 04:00 04/02/24 05:09 04/02/24 05:12 Temperature Pulse Rate 111 H 99 98 Respiratory Rate Blood Pressure Pulse Oximetry 94 Oxygen Delivery Mechanical Ventilation Fraction of Inspired Oxygen 40 04/02/24 06:00 04/02/24 06:00 04/02/24 06:00 Temperature 97.4 F L Pulse Rate 83 83 80 Respiratory Rate 28 H 28 H 28 H Blood Pressure 104/61 Pulse Oximetry 94 Oxygen Delivery Fraction of Inspired Oxygen 04/02/24 06:00 04/02/24 06:02 04/02/24 06:02 Temperature Pulse Rate 80 86 86 Respiratory Rate 28 H 28 H Blood Pressure Pulse Oximetry Oxygen Delivery Fraction of Inspired Oxygen 04/02/24 08:00 04/02/24 08:00 04/02/24 08:00 Temperature 97 F L Pulse Rate 95 86 86 Respiratory Rate 20 23 H 23 H Blood Pressure 94/59 L Pulse Oximetry 93 Oxygen Delivery Fraction of Inspired Oxygen 04/02/24 08:00 04/02/24 08:00 04/02/24 08:00 Temperature Pulse Rate 79 Respiratory Rate Blood Pressure Pulse Oximetry 95 Oxygen Delivery Mechanical Ventilation Fraction of Inspired Oxygen 40 40 04/02/24 08:48 04/02/24 09:14 04/02/24 10:00 Temperature Pulse Rate 81 97 87 Respiratory Rate 26 H Blood Pressure Pulse Oximetry 92 Oxygen Delivery Mechanical Ventilation Fraction of Inspired Oxygen 40 04/02/24 10:00 04/02/24 10:00 04/02/24 10:00 Temperature 96.7 F L Pulse Rate 87 87 88 Respiratory Rate 26 H 26 H Blood Pressure 108/68 Pulse Oximetry 94 Oxygen Delivery Fraction of Inspired Oxygen 04/02/24 11:09 Temperature Pulse Rate 87 Respiratory Rate Blood Pressure Pulse Oximetry 95 Oxygen Delivery Mechanical Ventilation Fraction of Inspired Oxygen 40 Intake/Output Intake/Output: Intake & Output 03/30/24 03/31/24 04/01/24 04/02/24 23:59 23:59 23:59 23:59 Intake Total 2340.0 1929.6 2517.8 1388.6 Output Total 410 425 500 405 Balance 1930.0 1504.6 2017.8 983.6 Meds/Results Medications: Active Medications Generic Name Dose Route Start Last Admin Trade Name Freq PRN Reason Stop Dose Admin Acetaminophen 650 mg 03/27/24 14:41 03/29/24 05:11 Acetaminophen 325 Mg Tablet PO 650 mg Q4H PRN Administration Mild Pain (1-3) or Fever Amiodarone HCl 400 mg 04/01/24 10:40 04/02/24 09:14 Amiodarone Hcl 200 Mg Tablet PO 400 mg DAILY LAVERNE Administration Apixaban 5 mg 03/27/24 12:35 03/31/24 20:32 Apixaban 5 Mg Tablet PO 5 mg Q12HR LAVERNE Administration Cyanocobalamin 1,000 mcg 03/27/24 17:00 04/02/24 09:14 Cyanocobalamin 1,000 Mcg Tablet PO 1,000 mcg BID LAVERNE Administration Dextrose 12.5 gm 03/27/24 08:57 Dextrose 50% 25 Gm/50 Ml Syringe IV PUSH PRN PRN Hypoglycemia Protocol Glucagon 1 mg 03/27/24 08:57 Glucagon For Inj 1 Mg Vial IM PRN PRN Hypoglycemia Protocol Glucose 15 gm 03/27/24 08:57 Glucose Oral Gel 15 Gm Of Glucse In 37.5 Gm Tube PO PRN PRN Hypoglycemia Protocol Dextrose 1,000 mls @ 100 mls/hr 03/27/24 08:57 Dextrose 5% 1,000 Ml IVPB PRN PRN Hypoglycemia Protocol Fentanyl Citrate 2,500 mcg in 250 mls @ 10 mls/hr 03/28/24 15:45 04/02/24 10:00 Fentanyl 2,500 Mcg/Ns 250 Ml IV CONT 100 mcg/hr .Q25H LAVERNE 10 mls/hr Titration Protocol 100 MCG/HR Midazolam HCl 100 mg in 100 mls @ 5 mls/hr 03/28/24 19:30 04/02/24 10:00 Versed 100 Mg/Ns 100 Ml IV CONT 4 mg/hr .Q20H LAVERNE 4 mls/hr Titration Protocol 5 MG/HR Cefepime HCl 2 gm in 50 mls @ 100 mls/hr 03/30/24 18:00 04/02/24 05:38 Maxipime 2 Gm/Ns 50 Ml IVPB 04/02/24 23:59 Infused Q12H LAVERNE Infusion Insulin Human Regular 100 100 mls @ 3 mls/hr 04/01/24 12:10 04/02/24 11:05 units/ Sodium Chloride IV CONT 3 units/hr .Q24H LAVERNE 3 mls/hr Titration Protocol 3 UNITS/HR Albumin Human 50 mls @ 999 mls/hr 04/02/24 08:47 Albutein IVPB 04/03/24 08:46 Q10M PRN HYPOTENSION Insulin Aspart 4 - 8 units 03/29/24 13:00 04/01/24 09:59 Insulin Aspart (*Bkc) 100 Units/Ml SUB-Q Not Given Q4HR LAVERNE Protocol Insulin Glargine 60 units 04/01/24 09:00 04/02/24 09:17 Insulin Glargine (*Bkc) 100 Units/Ml SUB-Q 60 units Q12HR LAVERNE Administration Metoprolol Tartrate 25 mg 04/01/24 10:40 04/02/24 05:09 Metoprolol Tartrate 25 Mg Tablet PO 25 mg Q6HR LAVERNE Administration Multi-Ingred Cream/Lotion/Oil/Oint 1 applic 03/28/24 21:00 04/02/24 09:15 Mineral Oil/White Petrolatum Ointment EACH EYE 1 applic Q12HR LAVERNE Administration Pantoprazole Sodium 40 mg 03/29/24 09:00 04/02/24 09:14 Pantoprazole Sodium Iv 40 Mg Vial IV PUSH 40 mg DAILY LAVERNE Administration Rosuvastatin Calcium 20 mg 03/28/24 09:00 03/31/24 09:28 Rosuvastatin 20 Mg Tablet PO Not Given DAILY LAVERNE Sodium Chloride 10 ml 03/28/24 22:00 04/02/24 05:09 Central Line Flush IV PUSH 10 ml Q8HR L[facility]ERNE Administration Sodium Chloride 10 ml 03/28/24 16:14 Central Line Flush IV PUSH PRN PRN with TPN bag changes Sodium Chloride 20 ml 03/28/24 16:14 Central Line Flush IV PUSH PRN PRN after blood draws Radiology Results: ITS Impressions Chest CTA 03/27/24 06:41 Impression: No evidence of pulmonary embolus, aortic dissection, or aortic aneurysm. Extensive right lower lobe pneumonia. Probable mildly prominent reactive lymphadenopathy the right axilla and s ubcarinal region. Head CT 03/28/24 22:59 IMPRESSION: 1. Normal brain. Abdomen X-Ray 03/29/24 08:59 IMPRESSION: 1. Lines and tubes in expected positions. 2. Diffuse bilateral lung disease, right greater than left, consistent with multifocal pneumonia. Renal Ultrasound 03/31/24 15:34 IMPRESSION: No hydronephrosis. Perinephric fluid collection adjacent to the left lower pole. Abdomen Ultrasound 03/31/24 15:39 IMPRESSION: Status post cholecystectomy. Pancreas poorly visualized. Otherwise normal abdominal ultrasound findings. Chest X-Ray 04/02/24 08:51 IMPRESSION: 1. New central line tip at superior cavoatrial junction. 2. Unchanged airspace opacities in right lung and left mid and lower lung zones, consistent with pneumonia. 3. Small right pleural effusion. Labs Labs: Laboratory Results - last 24 hr 04/01/24 04/01/24 04/01/24 04:09 12:46 13:43 Puncture Site ABG pH ABG pCO2 ABG pO2 ABG PO2/FiO2 Ratio ABG HCO3 ABG O2 Saturation ABG O2 Content ABG Base Excess A-a Gradient Oxyhemoglobin Total Hemoglobin O2 Delivery Device O2 Liters/Min Minute Volume Vent Rate Vent Mode FiO2 Tidal Volume PEEP Peak Inspir Pressure Pressure Support Sodium Potassium Chloride Carbon Dioxide Anion Gap BUN Creatinine Estim Creat Clear Calc Estimated GFR Glucose POC Capillary Glucose 375 H 366 H Calcium Phosphorus 3.4 Magnesium Triglycerides 04/01/24 04/01/24 04/01/24 14:26 14:53 15:45 Puncture Site ABG pH ABG pCO2 ABG pO2 ABG PO2/FiO2 Ratio ABG HCO3 ABG O2 Saturation ABG O2 Content ABG Base Excess A-a Gradient Oxyhemoglobin Total Hemoglobin O2 Delivery Device O2 Liters/Min Minute Volume Vent Rate Vent Mode FiO2 Tidal Volume PEEP Peak Inspir Pressure Pressure Support Sodium 136 L Potassium 3.7 Chloride 99 Carbon Dioxide 24 Anion Gap 13 H BUN 103 H D Creatinine 2.77 H Estim Creat Clear Calc 28 Estimated GFR 17 L Glucose 330 H POC Capillary Glucose 307 H 253 H Calcium 8.6 Phosphorus Magnesium Triglycerides 110 04/01/24 04/01/24 04/01/24 16:47 17:40 17:48 Puncture Site ABG pH ABG pCO2 ABG pO2 ABG PO2/FiO2 Ratio ABG HCO3 ABG O2 Saturation ABG O2 Content ABG Base Excess A-a Gradient Oxyhemoglobin Total Hemoglobin O2 Delivery Device O2 Liters/Min Minute Volume Vent Rate Vent Mode FiO2 Tidal Volume PEEP Peak Inspir Pressure Pressure Support Sodium 138 Potassium 3.5 Chloride 101 Carbon Dioxide 26 Anion Gap 11 BUN 101 H Creatinine 2.87 H Estim Creat Clear Calc 27 Estimated GFR 16 L Glucose 175 H POC Capillary Glucose 197 H 176 H Calcium 8.7 Phosphorus Magnesium Triglycerides 04/01/24 04/01/24 04/01/24 18:35 19:43 20:48 Puncture Site ABG pH ABG pCO2 ABG pO2 ABG PO2/FiO2 Ratio ABG HCO3 ABG O2 Saturation ABG O2 Content ABG Base Excess A-a Gradient Oxyhemoglobin Total Hemoglobin O2 Delivery Device O2 Liters/Min Minute Volume Vent Rate Vent Mode FiO2 Tidal Volume PEEP Peak Inspir Pressure Pressure Support Sodium Potassium Chloride Carbon Dioxide Anion Gap BUN Creatinine Estim Creat Clear Calc Estimated GFR Glucose POC Capillary Glucose 155 H 193 H 185 H Calcium Phosphorus Magnesium Triglycerides 04/01/24 04/01/24 04/01/24 21:45 21:52 22:43 Puncture Site ABG pH ABG pCO2 ABG pO2 ABG PO2/FiO2 Ratio ABG HCO3 ABG O2 Saturation ABG O2 Content ABG Base Excess A-a Gradient Oxyhemoglobin Total Hemoglobin O2 Delivery Device O2 Liters/Min Minute Volume Vent Rate Vent Mode FiO2 Tidal Volume PEEP Peak Inspir Pressure Pressure Support Sodium 136 L Potassium 4.0 Chloride 100 Carbon Dioxide 26 Anion Gap 10 BUN 105 H Creatinine 3.02 H Estim Creat Clear Calc 26 Estimated GFR 15 L Glucose 182 H POC Capillary Glucose 176 H 202 H Calcium 8.7 Phosphorus Magnesium Triglycerides 04/01/24 04/02/24 04/02/24 23:48 01:04 01:49 Puncture Site ABG pH ABG pCO2 ABG pO2 ABG PO2/FiO2 Ratio ABG HCO3 ABG O2 Saturation ABG O2 Content ABG Base Excess A-a Gradient Oxyhemoglobin Total Hemoglobin O2 Delivery Device O2 Liters/Min Minute Volume Vent Rate Vent Mode FiO2 Tidal Volume PEEP Peak Inspir Pressure Pressure Support Sodium Potassium Chloride Carbon Dioxide Anion Gap BUN Creatinine Estim Creat Clear Calc Estimated GFR Glucose POC Capillary Glucose 214 H 263 H 235 H Calcium Phosphorus Magnesium Triglycerides 04/02/24 04/02/24 04/02/24 01:57 02:42 03:58 Puncture Site ABG pH ABG pCO2 ABG pO2 ABG PO2/FiO2 Ratio ABG HCO3 ABG O2 Saturation ABG O2 Content ABG Base Excess A-a Gradient Oxyhemoglobin Total Hemoglobin O2 Delivery Device O2 Liters/Min Minute Volume Vent Rate Vent Mode FiO2 Tidal Volume PEEP Peak Inspir Pressure Pressure Support Sodium 136 L Potassium 4.0 Chloride 100 Carbon Dioxide 25 Anion Gap 11 BUN 114 H Creatinine 2.84 H Estim Creat Clear Calc 28 Estimated GFR 16 L Glucose 238 H POC Capillary Glucose 244 H 253 H Calcium 8.7 Phosphorus Magnesium Triglycerides 04/02/24 04/02/24 04/02/24 04:52 05:08 05:17 Puncture Site Right radial ABG pH 7.364 ABG pCO2 41.9 ABG pO2 77.9 L ABG PO2/FiO2 Ratio 1.95 ABG HCO3 23.4 ABG O2 Saturation 95.1 ABG O2 Content 16.8 ABG Base Excess -2.0 A-a Gradient 159.1 Oxyhemoglobin 94.7 Total Hemoglobin 12.6 O2 Delivery Device Ventilator O2 Liters/Min Not Reportable Minute Volume Not Reportable Vent Rate 24 Vent Mode Cmv FiO2 40 Tidal Volume 400 PEEP 10 Peak Inspir Pressure Not Reportable Pressure Support Not Reportable Sodium 136 L Potassium 4.1 Chloride 100 Carbon Dioxide 24 Anion Gap 12 BUN 116 H Creatinine 3.30 H Estim Creat Clear Calc 24 Estimated GFR 14 L Glucose 245 H POC Capillary Glucose 241 H Calcium 8.5 Phosphorus Magnesium 2.7 H Triglycerides 04/02/24 04/02/24 04/02/24 05:49 06:50 07:49 Puncture Site ABG pH ABG pCO2 ABG pO2 ABG PO2/FiO2 Ratio ABG HCO3 ABG O2 Saturation ABG O2 Content ABG Base Excess A-a Gradient Oxyhemoglobin Total Hemoglobin O2 Delivery Device O2 Liters/Min Minute Volume Vent Rate Vent Mode FiO2 Tidal Volume PEEP Peak Inspir Pressure Pressure Support Sodium Potassium Chloride Carbon Dioxide Anion Gap BUN Creatinine Estim Creat Clear Calc Estimated GFR Glucose POC Capillary Glucose 225 H 236 H 233 H Calcium Phosphorus Magnesium Triglycerides 04/02/24 04/02/24 04/02/24 09:02 10:04 11:06 Puncture Site ABG pH ABG pCO2 ABG pO2 ABG PO2/FiO2 Ratio ABG HCO3 ABG O2 Saturation ABG O2 Content ABG Base Excess A-a Gradient Oxyhemoglobin Total Hemoglobin O2 Delivery Device O2 Liters/Min Minute Volume Vent Rate Vent Mode FiO2 Tidal Volume PEEP Peak Inspir Pressure Pressure Support Sodium Potassium Chloride Carbon Dioxide Anion Gap BUN Creatinine Estim Creat Clear Calc Estimated GFR Glucose POC Capillary Glucose 207 H 210 H 216 H Calcium Phosphorus Magnesium Triglycerides
[2024-04-02 12:07] LABS: Glucose Point of Care 219 mg/dl (65-105)
[2024-04-02 13:07] LABS: Glucose Point of Care 231 mg/dl (65-105)
[2024-04-02 14:14] LABS: Glucose Point of Care 218 mg/dl (65-105)
[2024-04-02 15:10] LABS: Glucose Point of Care 216 mg/dl (65-105)
[2024-04-02 16:11] LABS: Glucose Point of Care 227 mg/dl (65-105)
[2024-04-02 17:02] LABS: Glucose Point of Care 239 mg/dl (65-105)
[2024-04-02] MEDS: ALBUMIN HUMAN 25% 12.5 GM/50ML 50 ML IVPB (18:02)
[2024-04-02 18:46] LABS: Glucose Point of Care 203 mg/dl (65-105)
[2024-04-02 18:48] LABS: Mycoplasma IgM Antibody Titer 151 U/mL
[2024-04-02 19:43] LABS: Glucose Point of Care 165 mg/dl (65-105)
[2024-04-02 20:54] LABS: Glucose Point of Care 157 mg/dl (65-105)
[2024-04-02] MEDS: HEPARIN SODIUM 1,000 UNITS/ML VIAL 4000 UNITS (21:25)
[2024-04-02] MEDS: APIXABAN 5 MG TABLET PO (21:41)
[2024-04-02 22:13] LABS: Glucose Point of Care 178 mg/dl (65-105)
[2024-04-02 22:49] LABS: Glucose Point of Care 166 mg/dl (65-105)
[2024-04-02 23:53] LABS: Glucose Point of Care 199 mg/dl (65-105)
[2024-04-03] VITALS (32 sets, daily range): BP systolic 96–150; BP diastolic 60–92; PULSE 70–99; RESP 18–31; TEMP 35.8–36.6; O2SAT 93–98
[2024-04-03 00:45] LABS: Glucose Point of Care 194 mg/dl (65-105)
[2024-04-03 01:53] LABS: Glucose Point of Care 211 mg/dl (65-105)
[2024-04-03 03:59] LABS: Glucose Point of Care 235 mg/dl (65-105)
[2024-04-03 03:59] LABS: Glucose Point of Care 233 mg/dl (65-105)
[2024-04-03] MEDS: CEFEPIME 2 GM/NS 50 ML 2 GM/50 ML BAG IVPB (05:05)
[2024-04-03] MEDS: METOPROLOL TARTRATE 25 MG TABLET PO ×4 (05:07→23:55)
[2024-04-03] MEDS: CENTRAL LINE FLUSH 10 ML IV PUSH ×3 (05:08→20:06)
[2024-04-03 05:18] LABS: Glucose Point of Care 232 mg/dl (65-105)
[2024-04-03 05:20] LABS: Hematocrit 32.9 % (37.0-47.0); Mean Corpuscular HGB Conc 33.4 g/dl (32-36); Mean Corpuscular Hemoglobin 30.5 pg (26-34); Mean Corpuscular Volume 91.1 fl (80-100); Mean Platelet Volume 10.6 fl (7.4-10.4); Platelet Count Result 213 k/mm3 (150-375); Red Blood Count 3.61 M/mm3 (4.2-5.4); Red Cell Distribution Width 17.5 % (11.5-14.5)
[2024-04-03 05:31] LABS: Albumin Level 2.7 g/dL (3.5-5.1); Alkaline Phosphatase 323 U/L (38-126); Anion Gap 7 mmol/L (4-12); Aspartate Amino Transferase 696 U/L (14-36); Bilirubin,Total 1.2 mg/dL (0.2-1.3); Blood Urea Nitrogen 83 mg/dL (7-17); Calcium 8.2 mg/dL (8.4-10.2); Carbon Dioxide 31 mmol/L (22-30); Chloride 97 mmol/L (98-107); Estimated CRCL calculation 32 ml/min; Estimated Glomerular Filt Rate 19; Glucose 233 mg/dL (65-110); Magnesium 2.3 mg/dL (1.6-2.3); Phosphorus 3.7 mg/dL (2.5-4.5); Sodium 135 mmol/L (137-145)
[2024-04-03 05:35] LABS: Alveolar/Arterial O2 Gradient 156.7 mmHg; Base Excess ABG 2.4 mEq/l (+/-2.0); Carboxyhemoglobin 0.3 % THb (0-2.0); Fractional Inspired Oxygen 40 %; HCO3 ABG 27.8 mEq/l (22.0-26.0); Methemoglobin ABG 0.3 %THb (0-1.5); Oxygen Content ABG 15.8 %vol (16.0-22.0); Oxygen Saturation ABG 94.8 % (95.0-100.0); Oxyhemoglobin 93.8 % THb (90.0-100.0); PCO2 ABG 46.7 mmHg (35.0-45.0); PO2 ABG 74.8 mmHg (80.0-100.0); PO2 FiO2 Ratio Arterial Blood 1.87 %; Reduced Hemoglobin 5.6 %THb (0-5.0); Total Hemoglobin 11.9 g/dL (12.0-18.0); pH ABG 7.393 (7.350-7.450)
[2024-04-03 05:36] LABS: Alanine Aminotransferase 1053 U/L (6-35)
[2024-04-03 05:37] LABS: Arterial Blood Gas PEEP 10 cmH2O; Arterial Blood Gas Vent Mode CMV; Arterial Blood Gas Ventilator rate 24 /MIN; Device VENTILATOR; Modified Allen's Test Pass; Site Drawn RIGHT RADIAL
[2024-04-03 05:38] LABS: Arterial Blood Gas Tidal Volume 400 ml
[2024-04-03 05:46] LABS: Glucose Point of Care 254 mg/dl (65-105)
[2024-04-03] MEDS: FENTANYL 2,500MCG/NS250ML(*CRX 2,500 MCG/250 ML BAG 12.5 MCG IV CONT (06:37)
[2024-04-03 06:54] LABS: Glucose Point of Care 273 mg/dl (65-105)
[2024-04-03 08:02] LABS: Glucose Point of Care 248 mg/dl (65-105)
[2024-04-03] MEDS: PANTOPRAZOLE SODIUM IV 40 MG VIAL IV PUSH (08:30)
[2024-04-03] MEDS: APIXABAN 5 MG TABLET PO ×2 (08:31→20:06)
[2024-04-03] MEDS: CYANOCOBALAMIN 1,000 MCG TABLET 1000 MCG PO ×2 (08:31→16:19)
[2024-04-03] MEDS: AMIODARONE HCL 200 MG TABLET 400 MG PO (08:31)
[2024-04-03] MEDS: MINERAL OIL/WHITE PETROLATUM OINTMENT 1 APPLIC EACH EYE ×2 (08:31→20:06)
[2024-04-03] MEDS: INSULIN GLARGINE (*BKC) 100 UNITS/ML 60 UNITS SUB-Q ×2 (08:36→20:06)
[2024-04-03] MEDS: INSULIN HUMAN REGULAR (*BKC) 100 UNITS in SODIUM CHLORIDE 0.9% IV 99 ML IV CONT (08:40)
[2024-04-03 08:44] LABS: Glucose Point of Care 240 mg/dl (65-105)
--- NOTE | 2024-04-03 08:44 | P.PNINT_ITS ---
Progress Note: A&P Assessment and Plan (1) Acute hypoxic respiratory failure: Code(s): J96.01 - Acute respiratory failure with hypoxia Status: Acute Assessment and Plan: Acute hypoxic respiratory failure secondary to pneumonia and congestive heart failure 03/27 CTA chest No evidence of pulmonary embolus, aortic dissection, or aortic aneurysm. Extensive right lower lobe pneumonia. Probable mildly prominent reactive lymphadenopathy the right axilla and subcarinal region. Patient now emergently intubated 03/28 Chest x-ray shows improved ABG reviewed Currently PEEP to 10 and FiO2 is down to 40 per I anticipate patient will review additional fluid removal before we can consider weaning. But I will perform sedation holiday She is on Versed and fentanyl for sedation Repeat PCR was positive RSV -isolation Completed course of hydrocortisone will discontinue completely. Start dialysis to remove fluid (2) Sepsis: Code(s): A41.9 - Sepsis, unspecified organism Status: Acute Assessment and Plan: Sepsis secondary to community-acquired pneumonia Blood cultures ordered and negative till now Pain sputum culture Urine Legionella and pneumococcal antigen negative Continue empiric cefepime azithromycin. procalcitonin level 4.4 MRSA screen negative. Vancomycin discontinued (3) Diabetes: Code(s): E11.9 - Type 2 diabetes mellitus without complications Status: Chronic Assessment and Plan: Currently on insulin infusion Continue Lantus to 60 units q.12 Steroids are being discontinued and dialysis being started anticipate glycemic control improved and we will be able to wean off insulin infusion Continue tube feed (4) Atrial fibrillation with RVR: Code(s): I48.91 - Unspecified atrial fibrillation Status: Acute Assessment and Plan: Patient was amiodarone infusion which has been switched to p.o. amiodarone per tube metoprolol by Cardiology Patient is anticoagulated with Eliquis Echo Summary 1. Very technically difficult study with limited views. 2. Left ventricular chamber dimension is normal. 3. Left ventricular systolic function is at lower limits of normal, estimated at 50-55%. 4. Left atrial chamber dimension is moderately enlarged (5) Community acquired pneumonia: Code(s): J18.9 - Pneumonia, unspecified organism Status: Acute Assessment and Plan: See above (6) Altered mental status: Code(s): R41.82 - Altered mental status, unspecified Status: Acute Assessment and Plan: Likely secondary to hypoxic. Patient had CT scan of the head recently done which was unremarkable Repeat head CT on 03/28 was again on remark And ammonia normal TSH was normal (7) Electrolyte abnormality: Code(s): E87.8 - Other disorders of electrolyte and fluid balance, not elsewhere classified Status: Acute Assessment and Plan: Improved after placement. Continue to monitor (8) Shock: Code(s): R57.9 - Shock, unspecified Status: Acute Assessment and Plan: Patient was on Levophed and vasopressin infusion which are currently off Continue hydrocortisone but start tapering She did receive 25% albumin Hold further crystalloids (9) VINCENT (acute kidney injury): Code(s): N17.9 - Acute kidney failure, unspecified Status: Acute Assessment and Plan: Increase in creatinine and drop in urine output likely secondary to shock Patient received IV fluids and 5% albumin earlier the course. norm CK level Renal ultrasound showed No hydronephrosis. Perinephric fluid collection adjacent to the left lower pole. Nephrology following Continued maintain mean arterial pressure with vasopressors if needed 04/02 Discussed with software sales and patient's family. Discussed risks and benefits of starting hemodialysis. Stewarding Supervisor and patient's family in agreement. Patient's consented to proceed. Temporary dialysis catheter placed. Patient was dialyzed. Further dialysis per as per Nephrology (10) Elevated liver enzymes: Code(s): R74.8 - Abnormal levels of other serum enzymes Status: Acute Assessment and Plan: Patient is status post cholecystectomy Elevated AST ALT and alkaline phosphatase likely secondary to shock liver Hold statin Right upper quadrant ultrasound - Status post cholecystectomy. Pancreas poorly visualized. Otherwise normal abdominal ultrasound findings. Levels continue to increase I have discussed with Cardiology regarding potential amiodarone related hepatotoxicity. Patient was on IV amiodarone earlier for rate control as patient was in AFib with RVR. It was switched to p.o. as the rate improved. Will hold amiodarone at this time Will consult GI Plan DVT prophylaxis -Eliquis Stress ulcer prophylaxis -protonix Nutrition -continue tube feed Code Status - Full Code 03/31 I spoke to patient's and daughter at bedside and updated them with patient's current status including septic shock, respiratory failure, AFib with RVR, VINCENT and worsening renal function and possibility of patient needing dialysis. We also discussed her elevated liver enzymes. I answered all their question Case also discussed with hospitalist 04/01-updated at bedside answered all his questions. 04/02 spoke to patient's at bedside and answered all his questions. Updated him with patient's status Total Critical Care Time - 35 minutes Due to a high probability of clinically significant, life threatening deterioration, the patient required my highest level of preparedness to intervene emergently and I personally spent this critical care time directly and personally managing the patient. This critical care time included obtaining a history; examining the patient; pulse oximetry; ordering and review of studies; arranging urgent treatment with development of a management plan; evaluation of patient's response to treatment; frequent reassessment; and discussions with other providers. It was exclusive of separately billable procedures and treating other patients and teaching time. Please see Assessment and Plan section and the rest of the note for further information on patient assessment and treatment Subjective Date/time seen: 04/03/24 Overnight events reviewed. Afebrile Continues to be on mechanical ventilation 10 of PEEP and 40% FiO2 Off vasopressor Continues to be sedated with Versed and fentanyl Tolerating tube feed Patient was dialyzed yesterday Urine output remains poor Interval history: 68yo female with AFib s/p SHAYY cardioversion that was unsuccessful, KAREN not using CPAP, DM, HTN and endometrial cancer who presents with shortness of breath, leg swelling and weight gain over the past few weeks. Now in with respiratory failure secondary to pneumonia with septic shock. Intubated and on mechanical ventilation Review of Systems Review of Systems: ROS unobtainable: Yes unobtainable due to endotracheal tube, unobtainable due to medical condition and unobtainable due to mental status Exam Narrative: General: Pt is now sedated, intubated and on mechanical ventilation peer Lungs/Chest: Trachea central Coarse BS B/L, Cardiac: RRR. Normal S1 S2. No murmurs Circulation: Pedal pulses are intact and symmetrical. Abdomen: Decreased bowel sounds. Morbidly Obese. Soft. NT. ND. Extremities: No clubbing, cyanosis or bilateral pitting edema present : Can in place Neurologic: Unable to assess due to sedation, PERRL Objective Data Vital Signs Vital Signs: Vital Signs - 24 hr 04/02/24 08:48 04/02/24 09:14 04/02/24 10:00 Temperature Pulse Rate 81 97 87 Respiratory Rate 26 H Blood Pressure Pulse Oximetry 92 Oxygen Delivery Mechanical Ventilation Fraction of Inspired Oxygen 40 04/02/24 10:00 04/02/24 10:00 04/02/24 10:00 Temperature 35.9 C L Pulse Rate 87 87 88 Respiratory Rate 26 H 26 H Blood Pressure 108/68 Pulse Oximetry 94 Oxygen Delivery Fraction of Inspired Oxygen 04/02/24 11:09 04/02/24 12:00 04/02/24 12:00 Temperature 36.3 C L Pulse Rate 87 83 83 Respiratory Rate 22 H 27 H Blood Pressure 100/69 Pulse Oximetry 95 95 Oxygen Delivery Mechanical Ventilation Fraction of Inspired Oxygen 40 04/02/24 12:00 04/02/24 12:00 04/02/24 12:00 Temperature Pulse Rate 78 Respiratory Rate 24 H Blood Pressure Pulse Oximetry 95 Oxygen Delivery Mechanical Ventilation Fraction of Inspired Oxygen 40 40 04/02/24 12:09 04/02/24 12:48 04/02/24 13:48 Temperature Pulse Rate 89 79 78 Respiratory Rate 28 H 25 H Blood Pressure Pulse Oximetry Oxygen Delivery Fraction of Inspired Oxygen 04/02/24 14:00 04/02/24 14:00 04/02/24 14:00 Temperature 36.4 C L Pulse Rate 80 80 76 Respiratory Rate 28 H 28 H Blood Pressure 99/53 L Pulse Oximetry 95 Oxygen Delivery Fraction of Inspired Oxygen 04/02/24 14:00 04/02/24 14:21 04/02/24 16:00 Temperature 36.4 C Pulse Rate 79 80 81 Respiratory Rate 26 H 26 H Blood Pressure 90/65 L Pulse Oximetry 95 94 Oxygen Delivery Mechanical Ventilation Fraction of Inspired Oxygen 40 04/02/24 16:00 04/02/24 16:00 04/02/24 16:00 Temperature Pulse Rate 83 83 Respiratory Rate 22 H 22 H Blood Pressure Pulse Oximetry 93 Oxygen Delivery Mechanical Ventilation Fraction of Inspired Oxygen 40 04/02/24 16:00 04/02/24 16:00 04/02/24 17:26 Temperature Pulse Rate 90 90 Respiratory Rate Blood Pressure Pulse Oximetry 93 Oxygen Delivery Mechanical Ventilation Fraction of Inspired Oxygen 40 40 04/02/24 17:30 04/02/24 17:30 04/02/24 17:45 Temperature 36.3 C L Pulse Rate 88 86 Respiratory Rate 26 H Blood Pressure 104/74 119/76 Pulse Oximetry 93 Oxygen Delivery Fraction of Inspired Oxygen 40 04/02/24 18:00 04/02/24 18:00 04/02/24 18:00 Temperature 36.2 C L Pulse Rate 93 100 85 Respiratory Rate 14 24 H Blood Pressure 102/64 101/78 Pulse Oximetry 91 Oxygen Delivery Fraction of Inspired Oxygen 04/02/24 18:00 04/02/24 18:00 04/02/24 18:15 Temperature Pulse Rate 85 91 92 Respiratory Rate 24 H Blood Pressure 96/61 L Pulse Oximetry Oxygen Delivery Fraction of Inspired Oxygen 04/02/24 18:30 04/02/24 18:45 04/02/24 19:00 Temperature Pulse Rate 95 93 95 Respiratory Rate Blood Pressure 101/78 95/64 L 81/60 L Pulse Oximetry Oxygen Delivery Fraction of Inspired Oxygen 04/02/24 19:15 04/02/24 19:30 04/02/24 19:45 Temperature Pulse Rate 92 95 93 Respiratory Rate Blood Pressure 93/63 L 98/63 L 93/66 L Pulse Oximetry Oxygen Delivery Fraction of Inspired Oxygen 04/02/24 20:00 04/02/24 20:00 04/02/24 20:00 Temperature Pulse Rate 94 87 87 Respiratory Rate 28 H 28 H Blood Pressure 97/67 L Pulse Oximetry Oxygen Delivery Fraction of Inspired Oxygen 04/02/24 20:00 04/02/24 20:00 04/02/24 20:00 Temperature 30.5 C L Pulse Rate 87 Respiratory Rate 28 H Blood Pressure 97/67 L Pulse Oximetry 90 90 Oxygen Delivery Mechanical Ventilation Fraction of Inspired Oxygen 40 40 04/02/24 20:00 04/02/24 20:15 04/02/24 20:30 Temperature Pulse Rate 87 96 95 Respiratory Rate Blood Pressure 91/65 L 103/68 Pulse Oximetry Oxygen Delivery Fraction of Inspired Oxygen 04/02/24 20:45 04/02/24 20:45 04/02/24 20:55 Temperature Pulse Rate 90 94 92 Respiratory Rate 27 H 27 H Blood Pressure 97/59 L Pulse Oximetry Oxygen Delivery Fraction of Inspired Oxygen 04/02/24 21:00 04/02/24 21:13 04/02/24 21:15 Temperature Pulse Rate 94 94 92 Respiratory Rate Blood Pressure 92/59 L 99/72 L Pulse Oximetry 90 Oxygen Delivery Mechanical Ventilation Fraction of Inspired Oxygen 40 04/02/24 21:24 04/02/24 21:30 04/02/24 22:00 Temperature 36.6 C Pulse Rate 92 92 93 Respiratory Rate 13 28 H 28 H Blood Pressure 93/70 L Pulse Oximetry 91 Oxygen Delivery Fraction of Inspired Oxygen 04/02/24 22:00 04/02/24 22:00 04/02/24 22:00 Temperature 36.6 C Pulse Rate 93 93 93 Respiratory Rate 28 H 28 H Blood Pressure 115/82 Pulse Oximetry 94 Oxygen Delivery Fraction of Inspired Oxygen 04/02/24 23:19 04/02/24 23:38 04/03/24 00:00 Temperature Pulse Rate 102 H 80 83 Respiratory Rate 27 H Blood Pressure Pulse Oximetry 93 Oxygen Delivery Mechanical Ventilation Fraction of Inspired Oxygen 40 04/03/24 00:00 04/03/24 00:00 04/03/24 00:00 Temperature Pulse Rate 83 Respiratory Rate 27 H Blood Pressure Pulse Oximetry 94 Oxygen Delivery Mechanical Ventilation Fraction of Inspired Oxygen 40 40 04/03/24 00:00 04/03/24 00:00 04/03/24 02:00 Temperature 36.6 C Pulse Rate 75 75 80 Respiratory Rate 26 H 27 H Blood Pressure 105/73 Pulse Oximetry 94 Oxygen Delivery Fraction of Inspired Oxygen 04/03/24 02:00 04/03/24 02:00 04/03/24 02:00 Temperature 36.6 C Pulse Rate 80 80 80 Respiratory Rate 27 H 27 H Blood Pressure 98/66 L Pulse Oximetry 93 Oxygen Delivery Fraction of Inspired Oxygen 04/03/24 02:33 04/03/24 04:00 04/03/24 04:00 Temperature 36.5 C Pulse Rate 80 79 Respiratory Rate 27 H Blood Pressure 126/76 Pulse Oximetry 94 94 Oxygen Delivery Mechanical Ventilation Fraction of Inspired Oxygen 40 40 04/03/24 04:00 04/03/24 04:00 04/03/24 04:00 Temperature Pulse Rate 79 79 Respiratory Rate 27 H Blood Pressure Pulse Oximetry 94 Oxygen Delivery Mechanical Ventilation Fraction of Inspired Oxygen 40 04/03/24 04:00 04/03/24 05:07 04/03/24 05:20 Temperature Pulse Rate 79 86 78 Respiratory Rate 27 H Blood Pressure Pulse Oximetry 94 Oxygen Delivery Mechanical Ventilation Fraction of Inspired Oxygen 40 04/03/24 06:00 04/03/24 06:00 04/03/24 06:00 Temperature 36.3 C L Pulse Rate 74 74 74 Respiratory Rate 24 H 24 H Blood Pressure 96/69 L Pulse Oximetry 94 Oxygen Delivery Fraction of Inspired Oxygen 04/03/24 06:00 04/03/24 06:37 04/03/24 06:37 Temperature Pulse Rate 74 77 77 Respiratory Rate 24 H 24 H 24 H Blood Pressure Pulse Oximetry Oxygen Delivery Fraction of Inspired Oxygen 04/03/24 07:20 04/03/24 07:54 04/03/24 07:55 Temperature Pulse Rate 70 73 78 Respiratory Rate 27 H 27 H Blood Pressure Pulse Oximetry 94 Oxygen Delivery Mechanical Ventilation Fraction of Inspired Oxygen 40 04/03/24 07:56 04/03/24 07:56 04/03/24 08:31 Temperature 36.3 C L Pulse Rate 80 81 Respiratory Rate 27 H Blood Pressure 102/60 Pulse Oximetry 94 Oxygen Delivery Fraction of Inspired Oxygen 40 Intake/Output Intake/Output: Intake & Output 03/31/24 04/01/24 04/02/24 04/03/24 23:59 23:59 23:59 23:59 Intake Total 1929.6 2517.8 1573.7 1815.3 Output Total 425 500 655 400 Balance 1504.6 2017.8 918.7 1415.3 Meds/Results Medications: Active Medications Generic Name Dose Route Start Last Admin Trade Name Freq PRN Reason Stop Dose Admin Acetaminophen 650 mg 03/27/24 14:41 03/29/24 05:11 Acetaminophen 325 Mg Tablet PO 650 mg Q4H PRN Administration Mild Pain (1-3) or Fever Amiodarone HCl 400 mg 04/01/24 10:40 04/03/24 08:31 Amiodarone Hcl 200 Mg Tablet PO 400 mg DAILY LAVERNE Administration Apixaban 5 mg 03/27/24 12:35 04/03/24 08:31 Apixaban 5 Mg Tablet PO 5 mg Q12HR LAVERNE Administration Cyanocobalamin 1,000 mcg 03/27/24 17:00 04/03/24 08:31 Cyanocobalamin 1,000 Mcg Tablet PO 1,000 mcg BID LAVRENE Administration Dextrose 12.5 gm 03/27/24 08:57 Dextrose 50% 25 Gm/50 Ml Syringe IV PUSH PRN PRN Hypoglycemia Protocol Glucagon 1 mg 03/27/24 08:57 Glucagon For Inj 1 Mg Vial IM PRN PRN Hypoglycemia Protocol Glucose 15 gm 03/27/24 08:57 Glucose Oral Gel 15 Gm Of Glucse In 37.5 Gm Tube PO PRN PRN Hypoglycemia Protocol Dextrose 1,000 mls @ 100 mls/hr 03/27/24 08:57 Dextrose 5% 1,000 Ml IVPB PRN PRN Hypoglycemia Protocol Fentanyl Citrate 2,500 mcg in 250 mls @ 10 mls/hr 03/28/24 15:45 04/03/24 07:55 Fentanyl 2,500 Mcg/Ns 250 Ml IV CONT 100 mcg/hr .Q25H LAVERNE 10 mls/hr Titration Protocol 100 MCG/HR Midazolam HCl 100 mg in 100 mls @ 3 mls/hr 03/28/24 19:30 04/03/24 07:54 Versed 100 Mg/Ns 100 Ml IV CONT 3 mg/hr .[id number] LAVERNE 3 mls/hr Titration Protocol 3 MG/HR Insulin Human Regular 100 100 mls @ 3 mls/hr 04/01/24 12:10 04/03/24 08:40 units/ Sodium Chloride IV CONT 3 units/hr .Q24H LAVERNE 3 mls/hr Administration Protocol 3 UNITS/HR Albumin Human 50 mls @ 999 mls/hr 04/02/24 08:47 04/02/24 18:02 Albutein IVPB 04/03/24 08:46 999 mls/hr Q10M PRN Administration HYPOTENSION Norepinephrine Bitartrate 8 mg in 250 mls @ 9.375 mls/hr 04/02/24 14:30 Levophed 8 Mg/D5w 250 Ml IV CONT .Q24H LAVERNE Protocol 5 MCG/MIN Cefepime HCl 2 gm in 50 mls @ 100 mls/hr 04/03/24 06:00 04/03/24 05:35 Maxipime 2 Gm/Ns 50 Ml IVPB Infused Q24H LAVERNE Infusion Insulin Aspart 4 - 8 units 03/29/24 13:00 04/01/24 09:59 Insulin Aspart (*Bkc) 100 Units/Ml SUB-Q Not Given Q4HR [facility] Protocol Insulin Glargine 60 units 04/01/24 09:00 04/03/24 08:36 Insulin Glargine (*Bkc) 100 Units/Ml SUB-Q 60 units Q12HR LAVERNE Administration Metoprolol Tartrate 25 mg 04/01/24 10:40 04/03/24 05:07 Metoprolol Tartrate 25 Mg Tablet PO 25 mg Q6HR LAVERNE Administration Multi-Ingred Cream/Lotion/Oil/Oint 1 applic 03/28/24 21:00 04/03/24 08:31 Mineral Oil/White Petrolatum Ointment EACH EYE 1 applic Q12HR LAVERNE Administration Pantoprazole Sodium 40 mg 03/29/24 09:00 04/03/24 08:30 Pantoprazole Sodium Iv 40 Mg Vial IV PUSH 40 mg DAILY LAVERNE Administration Rosuvastatin Calcium 20 mg 03/28/24 09:00 03/31/24 09:28 Rosuvastatin 20 Mg Tablet PO Not Given DAILY LAVERNE Sodium Chloride 10 ml 03/28/24 22:00 04/03/24 05:08 Central Line Flush IV PUSH 10 ml Q8HR LAVERNE Administration Sodium Chloride 10 ml 03/28/24 16:14 Central Line Flush IV PUSH PRN PRN with TPN bag changes Sodium Chloride 20 ml 03/28/24 16:14 Central Line Flush IV PUSH PRN PRN after blood draws Radiology Results: ITS Impressions Chest CTA 03/27/24 06:41 Impression: No evidence of pulmonary embolus, aortic dissection, or aortic aneurysm. Extensive right lower lobe pneumonia. Probable mildly prominent reactive lymphadenopathy the right axilla and subcarinal region. Head CT 03/28/24 22:59 IMPRESSION: 1. Normal brain. Abdomen X-Ray 03/29/24 08:59 IMPRESSION: 1. Lines and tubes in expected positions. 2. Diffuse bilateral lung disease, right greater than left, consistent with multifocal pneumonia. Renal Ultrasound 03/31/24 15:34 IMPRESSION: No hydronephrosis. Perinephric fluid collection adjacent to the left lower pole. Abdomen Ultrasound 03/31/24 15:39 IMPRESSION: Status post cholecystectomy. Pancreas poorly visualized. Otherwise normal a bdominal ultrasound findings. Chest X-Ray 04/03/24 06:52 IMPRESSION: 1. Lines and tubes in expected position as detailed above. 2. Persistent opacities in the right mid to lower and left lower lung zones which are concerning for pneumonia. 3. Significant decrease if not resolution of a prior right pleural effusion. Labs Labs: Laboratory Results - last 24 hr 03/28/24 04/02/24 04/02/24 15:14 07:49 09:02 WBC RBC Hgb Hct MCV MCH MCHC RDW Plt Count MPV Puncture Site ABG pH ABG pCO2 ABG pO2 ABG PO2/FiO2 Ratio ABG HCO3 ABG O2 Saturation ABG O2 Content ABG Base Excess A-a Gradient Oxyhemoglobin Carboxyhemoglobin Methemoglobin Reduced Hemoglobin Total Hemoglobin O2 Delivery Device O2 Liters/Min Minute Volume Vent Rate Vent Mode FiO2 Tidal Volume PEEP Peak Inspir Pressure Pressure Support Sodium Potassium Chloride Carbon Dioxide Anion Gap BUN Creatinine Estim Creat Clear Calc Estimated GFR Glucose POC Capillary Glucose 233 H 207 H Calcium Phosphorus Magnesium Total Bilirubin AST ALT Alkaline Phosphatase Total Protein Albumin Mycoplasma pneumon IgM 151 04/02/24 04/02/24 04/02/24 10:04 11:06 12:04 WBC RBC Hgb Hct MCV MCH MCHC RDW Plt Count MPV Puncture Site ABG pH ABG pCO2 ABG pO2 ABG PO2/FiO2 Ratio ABG HCO3 ABG O2 Saturation ABG O2 Content ABG Base Excess A-a Gradient Oxyhemoglobin Carboxyhemoglobin Methemoglobin Reduced Hemoglobin Total Hemoglobin O2 Delivery Device O2 Liters/Min Minute Volume Vent Rate Vent Mode FiO2 Tidal Volume PEEP Peak Inspir Pressure Pressure Support Sodium Potassium Chloride Carbon Dioxide Anion Gap BUN Creatinine Estim Creat Clear Calc Estimated GFR Glucose POC Capillary Glucose 210 H 216 H 219 H Calcium Phosphorus Magnesium Total Bilirubin AST ALT Alkaline Phosphatase Total Protein Albumin Mycoplasma pneumon IgM 04/02/24 04/02/24 04/02/24 13:04 14:01 15:07 WBC RBC Hgb Hct MCV MCH MCHC RDW Plt Count MPV Puncture Site ABG pH ABG pCO2 ABG pO2 ABG PO2/FiO2 Ratio ABG HCO3 ABG O2 Saturation ABG O2 Content ABG Base Excess A-a Gradient Oxyhemoglobin Carboxyhemoglobin Methemoglobin Reduced Hemoglobin Total Hemoglobin O2 Delivery Device O2 Liters/Min Minute Volume Vent Rate Vent Mode FiO2 Tidal Volume PEEP Peak Inspir Pressure Pressure Support Sodium Potassium Chloride Carbon Dioxide Anion Gap BUN Creatinine Estim Creat Clear Calc Estimated GFR Glucose POC Capillary Glucose 231 H 218 H 216 H Calcium Phosphorus Magnesium Total Bilirubin AST ALT Alkaline Phosphatase Total Protein Albumin Mycoplasma pneumon IgM 04/02/24 04/02/24 04/02/24 16:08 16:58 18:39 WBC RBC Hgb Hct MCV MCH MCHC RDW Plt Count MPV Puncture Site ABG pH ABG pCO2 ABG pO2 ABG PO2/FiO2 Ratio ABG HCO3 ABG O2 Saturation ABG O2 Content ABG Base Excess A-a Gradient Oxyhemoglobin Carboxyhemoglobin Methemoglobin Reduced Hemoglobin Total Hemoglobin O2 Delivery Device O2 Liters/Min Minute Volume Vent Rate Vent Mode FiO2 Tidal Volume PEEP Peak Inspir Pressure Pressure Support Sodium Potassium Chloride Carbon Dioxide Anion Gap BUN Creatinine Estim Creat Clear Calc Estimated GFR Glucose POC Capillary Glucose 227 H 239 H 203 H Calcium Phosphorus Magnesium Total Bilirubin AST ALT Alkaline Phosphatase Total Protein Albumin Mycoplasma pneumon IgM 04/02/24 04/02/24 04/02/24 19:41 20:50 21:46 WBC RBC Hgb Hct MCV MCH MCHC RDW Plt Count MPV Puncture Site ABG pH ABG pCO2 ABG pO2 ABG PO2/FiO2 Ratio ABG HCO3 ABG O2 Saturation ABG O2 Content ABG Base Excess A-a Gradient Oxyhemoglobin Carboxyhemoglobin Methemoglobin Reduced Hemoglobin Total Hemoglobin O2 Delivery Device O2 Liters/Min Minute Volume Vent Rate Vent Mode FiO2 Tidal Volume PEEP Peak Inspir Pressure Pressure Support Sodium Potassium Chloride Carbon Dioxide Anion Gap BUN Creatinine Estim Creat Clear Calc Estimated GFR Glucose POC Capillary Glucose 165 H 157 H 178 H Calcium Phosphorus Magnesium Total Bilirubin AST ALT Alkaline Phosphatase Total Protein Albumin Mycoplasma pneumon IgM 04/02/24 04/02/24 04/03/24 22:42 23:41 00:40 WBC RBC Hgb Hct MCV MCH MCHC RDW Plt Count MPV Puncture Site ABG pH ABG pCO2 ABG pO2 ABG PO2/FiO2 Ratio ABG HCO3 ABG O2 Saturation ABG O2 Content ABG Base Excess A-a Gradient Oxyhemoglobin Carboxyhemoglobin Methemoglobin Reduced Hemoglobin Total Hemoglobin O2 Delivery Device O2 Liters/Min Minute Volume Vent Rate Vent Mode FiO2 Tidal Volume PEEP Peak Inspir Pressure Pressure Support Sodium Potassium Chloride Carbon Dioxide Anion Gap BUN Creatinine Estim Creat Clear Calc Estimated GFR Glucose POC Capillary Glucose 166 H 199 H 194 H Calcium Phosphorus Magnesium Total Bilirubin AST ALT Alkaline Phosphatase Total Protein Albumin Mycoplasma pneumon IgM 04/03/24 04/03/24 04/03/24 01:48 02:47 03:51 WBC RBC Hgb Hct MCV MCH MCHC RDW Plt Count MPV Puncture Site ABG pH ABG pCO2 ABG pO2 ABG PO2/FiO2 Ratio ABG HCO3 ABG O2 Saturation ABG O2 Content ABG Base Excess A-a Gradient Oxyhemoglobin Carboxyhemoglobin Methemoglobin Reduced Hemoglobin Total Hemoglobin O2 Delivery Device O2 Liters/Min Minute Volume Vent Rate Vent Mode FiO2 Tidal Volume PEEP Peak Inspir Pressure Pressure Support Sodium Potassium Chloride Carbon Dioxide Anion Gap BUN Creatinine Estim Creat Clear Calc Estimated GFR Glucose POC Capillary Glucose 211 H 233 H 235 H Calcium Phosphorus Magnesium Total Bilirubin AST ALT Alkaline Phosphatase Total Protein Albumin Mycoplasma pneumon IgM 04/03/24 04/03/24 04/03/24 04:50 04:51 05:24 WBC 9.0 RBC 3.61 L Hgb 11.0 L Hct 32.9 L MCV 91.1 MCH 30.5 MCHC 33.4 RDW 17.5 H Plt Count 213 MPV 10.6 H Puncture Site Right radial ABG pH 7.393 ABG pCO2 46.7 H ABG pO2 74.8 L ABG PO2/FiO2 Ratio 1.87 ABG HCO3 27.8 H ABG O2 Saturation 94.8 L ABG O2 Content 15.8 L ABG Base Excess 2.4 A-a Gradient 156.7 Oxyhemoglobin 93.8 Carboxyhemoglobin 0.3 Methemoglobin 0.3 Reduced Hemoglobin 5.6 H Total Hemoglobin 11.9 L O2 Delivery Device Ventilator O2 Liters/Min Not Reportable Minute Volume Not Reportable Vent Rate 24 Vent Mode Cmv FiO2 40 Tidal Volume 400 PEEP 10 Peak Inspir Pressure Not Reportable Pressure Support Not Reportable Sodium 135 L Potassium 4.0 Chloride 97 L Carbon Dioxide 31 H Anion Gap 7 BUN 83 H D Creatinine 2.47 H Estim Creat Clear Calc 32 Estimated GFR 19 L Glucose 233 H POC Capillary Glucose 232 H Calcium 8.2 L Phosphorus 3.7 Magnesium 2.3 Total Bilirubin 1.2 AST 696 H ALT 1053 H Alkaline Phosphatase 323 H Total Protein 5.0 L Albumin 2.7 L Mycoplasma pneumon IgM 04/03/24 04/03/24 04/03/24 05:42 06:50 07:49 WBC RBC Hgb Hct MCV MCH MCHC RDW Plt Count MPV Puncture Site ABG pH ABG pCO2 ABG pO2 ABG PO2/FiO2 Ratio ABG HCO3 ABG O2 Saturation ABG O2 Content ABG Base Excess A-a Gradient Oxyhemoglobin Carboxyhemoglobin Methemoglobin Reduced Hemoglobin Total Hemoglobin O2 Delivery Device O2 Liters/Min Minute Volume Vent Rate Vent Mode FiO2 Tidal Volume PEEP Peak Inspir Pressure Pressure Support Sodium Potassium Chloride Carbon Dioxide Anion Gap BUN Creatinine Estim Creat Clear Calc Estimated GFR Glucose POC Capillary Glucose 254 H 273 H 248 H Calcium Phosphorus Magnesium Total Bilirubin AST ALT Alkaline Phosphatase Total Protein Albumin Mycoplasma pneumon IgM Quality VTE Prophylaxis VTE prophylaxis: pharmacologic ordered
--- NOTE | 2024-04-03 09:13 | P.PNNP_ITS ---
Progress Note: A&P Assessment and Plan (1) VINCENT (acute kidney injury): Code(s): N17.9 - Acute kidney failure, unspecified Status: Acute Assessment and Plan: * as noted by trend of labs since admission * normal creatinine at baseline and on admission * multifactorial etiology: * hemodynamic instability/shock * infection/sepsis (pneumonia + RSV) * ARB + HCTZ use prior to admission * contrast (CTA of chest on 03/27) * hypoxia * afib with RVR * prerenal factors (?) * evaluation to date noted: * renal ultrasound without hydro * urine electrolytes prerenal * urine eosinophils negative * CPK normal * the patient received albumin. blood pressure seems to be better. She is off pressors. * The creatinine is better, because she got dialysis yesterday. * Some fluid was removed. * Will get another dialysis tomorrow (2) Acute hypoxic respiratory failure: Code(s): J96.01 - Acute respiratory failure with hypoxia Status: Acute Assessment and Plan: * seconeary to pneumonia, RSV, and possible CHF * CTA of chest noted: * no evidence of pulmonary embolus, aortic dissection, or aortic aneurysm * extensive right lower lobe pneumonia * robable mildly prominent reactive lymphadenopathy the right axilla and subcarinal region * emergently intubated 03/28 * on steroids * follow respiratory status * On 40% FiO2, peep of 10, and minute volume is around 12. * Looks comfortable on the ventilator now * removed some fluid with dialysis yesterday but the nurse did not record how much (3) Septic shock: Code(s): A41.9 - Sepsis, unspecified organism; R65.21 - Severe sepsis with septic shock Status: Acute Assessment and Plan: * secondary to extensive pneumonia +/- RSV * on cefepime * hemodynamically improved. Off pressors. (4) Atrial fibrillation with RVR: Code(s): I48.91 - Unspecified atrial fibrillation Status: Acute Assessment and Plan: * heart rate good at 81 today * on Eliquis * Echo results noted * Cardiology following (5) Anemia: Code(s): D64.9 - Anemia, unspecified Status: Acute Assessment and Plan: * likely a manifestation of VINCENT and acute illness * Hemoglobin 11 or higher so no need for EPO * check hemoglobin tomorrow (6) Community acquired pneumonia: Code(s): J18.9 - Pneumonia, unspecified organism Status: Acute Assessment and Plan: * as noted by admission imaging * follow cultures * on cefepime (7) Elevated liver enzymes: Code(s): R74.8 - Abnormal levels of other serum enzymes Status: Acute Assessment and Plan: * thought to be secondary to shock liver * statin on hold * liver enzymes trending upwards. (8) Diabetes: Code(s): E11.9 - Type 2 diabetes mellitus without complications Status: Chronic Assessment and Plan: * follow accu-cheks * glycemic control per hospitalist/water plumber Subjective Date/time seen: 04/03/24 09:14 Interval history: patient is on the ventilator. She is sedated with IV meds. Looks comfortable on the ventilator Exam Narrative: General: elderly but WD/WN female intubated/sedated and on mechanical ventilation Heart: IRRR, normal S1 and S2; no rub or gallop Lungs: coarse upper airway sounds; few crackles at bases Abdomen: soft, nontender, nondistended, positive bowel sounds Extremities: 1 to2+ bilateral edema, upper and lower extremities Skin: No rash or subcu nodules Objective Data Vital Signs Vital Signs: Vital Signs - 24 hr 04/02/24 10:04/02/24 10:04/02/24 10:00 Temperature 96.7 F L Pulse Rate 87 87 87 Respiratory Rate 26 H 26 H 26 H Blood Pressure 108/68 Pulse Oximetry 94 Oxygen Delivery Fraction of Inspired Oxygen 04/02/24 10:04/02/24 11:09 04/02/24 12:00 Temperature 97.3 F L Pulse Rate 88 87 83 Respiratory Rate 22 H Blood Pressure 100/69 Pulse Oximetry 95 95 Oxygen Delivery Mechanical Ventilation Fraction of Inspired Oxygen 40 04/02/24 12:00 04/02/24 12:00 04/02/24 12:00 Temperature Pulse Rate 83 Respiratory Rate 27 H Blood Pressure Pulse Oximetry 95 Oxygen Delivery Mechanical Ventilation Fraction of Inspired Oxygen 40 40 04/02/24 12:00 04/02/24 12:09 04/02/24 12:48 Temperature Pulse Rate 78 89 79 Respiratory Rate 24 H 28 H Blood Pressure Pulse Oximetry Oxygen Delivery Fraction of Inspired Oxygen 04/02/24 13:48 04/02/24 14:00 04/02/24 14:00 Temperature 97.5 F L Pulse Rate 78 80 80 Respiratory Rate 25 H 28 H Blood Pressure 99/53 L Pulse Oximetry 95 Oxygen Delivery Fraction of Inspired Oxygen 04/02/24 14:00 04/02/24 14:00 04/02/24 14:21 Temperature Pulse Rate 76 79 80 Respiratory Rate 28 H 26 H Blood Pressure Pulse Oximetry 95 Oxygen Delivery Mechanical Ventilation Fraction of Inspired Oxygen 40 04/02/24 16:00 04/02/24 16:00 04/02/24 16:00 Temperature 97.6 F Pulse Rate 81 83 83 Respiratory Rate 26 H 22 H 22 H Blood Pressure 90/65 L Pulse Oximetry 94 Oxygen Delivery Fraction of Inspired Oxygen 04/02/24 16:00 04/02/24 16:00 04/02/24 16:00 Temperature Pulse Rate 90 Respiratory Rate Blood Pressure Pulse Oximetry 93 Oxygen Delivery Mechanical Ventilation Fraction of Inspired Oxygen 40 40 04/02/24 17:26 04/02/24 17:30 04/02/24 17:30 Temperature 97.3 F L Pulse Rate 90 88 Respiratory Rate 26 H Blood Pressure 104/74 Pulse Oximetry 93 93 Oxygen Delivery Mechanical Ventilation Fraction of Inspired Oxygen 40 40 04/02/24 17:45 04/02/24 18:00 04/02/24 18:00 Temperature 97.1 F L Pulse Rate 86 93 100 Respiratory Rate 14 Blood Pressure 119/76 102/64 101/78 Pulse Oximetry 91 Oxygen Delivery Fraction of Inspired Oxygen 04/02/24 18:00 04/02/24 18:00 04/02/24 18:00 Temperature Pulse Rate 85 85 91 Respiratory Rate 24 H 24 H Blood Pressure Pulse Oximetry Oxygen Delivery Fraction of Inspired Oxygen 04/02/24 18:15 04/02/24 18:30 04/02/24 18:45 Temperature Pulse Rate 92 95 93 Respiratory Rate Blood Pressure 96/61 L 101/78 95/64 L Pulse Oximetry Oxygen Delivery Fraction of Inspired Oxygen 04/02/24 19:00 04/02/24 19:15 04/02/24 19:30 Temperature Pulse Rate 95 92 95 Respiratory Rate Blood Pressure 81/60 L 93/63 L 98/63 L Pulse Oximetry Oxygen Delivery Fraction of Inspired Oxygen 04/02/24 19:45 04/02/24 20:00 04/02/24 20:00 Temperature Pulse Rate 93 94 87 Respiratory Rate 28 H Blood Pressure 93/66 L 97/67 L Pulse Oximetry Oxygen Delivery Fraction of Inspired Oxygen 04/02/24 20:00 04/02/24 20:00 04/02/24 20:00 Temperature Pulse Rate 87 Respiratory Rate 28 H Blood Pressure Pulse Oximetry 90 Oxygen Delivery Mechanical Ventilation Fraction of Inspired Oxygen 40 40 04/02/24 20:00 04/02/24 20:00 04/02/24 20:15 Temperature 87 F L Pulse Rate 87 87 96 Respiratory Rate 28 H Blood Pressure 97/67 L 91/65 L Pulse Oximetry 90 Oxygen Delivery Fraction of Inspired Oxygen 04/02/24 20:30 04/02/24 20:45 04/02/24 20:45 Temperature Pulse Rate 95 90 94 Respiratory Rate 27 H Blood Pressure 103/68 97/59 L Pulse Oximetry Oxygen Delivery Fraction of Inspired Oxygen 04/02/24 20:55 04/02/24 21:00 04/02/24 21:13 Temperature Pulse Rate 92 94 94 Respiratory Rate 27 H Blood Pressure 92/59 L Pulse Oximetry 90 Oxygen Delivery Mechanical Ventilation Fraction of Inspired Oxygen 40 04/02/24 21:15 04/02/24 21:24 04/02/24 21:30 Temperature 97.9 F Pulse Rate 92 92 92 Respiratory Rate 13 28 H Blood Pressure 99/72 L 93/70 L Pulse Oximetry 91 Oxygen Delivery Fraction of Inspired Oxygen 04/02/24 22:00 04/02/24 22:00 04/02/24 22:00 Temperature 97.8 F Pulse Rate 93 93 93 Respiratory Rate 28 H 28 H 28 H Blood Pressure 115/82 Pulse Oximetry 94 Oxygen Delivery Fraction of Inspired Oxygen 04/02/24 22:00 04/02/24 23:19 04/02/24 23:38 Temperature Pulse Rate 93 102 H 80 Respiratory Rate Blood Pressure Pulse Oximetry 93 Oxygen Delivery Mechanical Ventilation Fraction of Inspired Oxygen 40 04/03/24 00:00 04/03/24 00:00 04/03/24 00:00 Temperature Pulse Rate 83 83 Respiratory Rate 27 H 27 H Blood Pressure Pulse Oximetry 94 Oxygen Delivery Mechanical Ventilation Fraction of Inspired Oxygen 40 04/03/24 00:00 04/03/24 00:00 04/03/24 00:00 Temperature 97.8 F Pulse Rate 75 75 Respiratory Rate 26 H Blood Pressure 105/73 Pulse Oximetry 94 Oxygen Delivery Fraction of Inspired Oxygen 40 04/03/24 02:00 04/03/24 02:00 04/03/24 02:00 Temperature Pulse Rate 80 80 80 Respiratory Rate 27 H 27 H Blood Pressure Pulse Oximetry Oxygen Delivery Fraction of Inspired Oxygen 04/03/24 02:00 04/03/24 02:33 04/03/24 04:00 Temperature 98 F 97.7 F Pulse Rate 80 80 79 Respiratory Rate 27 H 27 H Blood Pressure 98/66 L 126/76 Pulse Oximetry 93 94 94 Oxygen Delivery Mechanical Ventilation Fraction of Inspired Oxygen 40 04/03/24 04:00 04/03/24 04:00 04/03/24 04:00 Temperature Pulse Rate 79 Respiratory Rate Blood Pressure Pulse Oximetry 94 Oxygen Delivery Mechanical Ventilation Fraction of Inspired Oxygen 40 40 04/03/24 04:00 04/03/24 04:00 04/03/24 05:07 Temperature Pulse Rate 79 79 86 Respiratory Rate 27 H 27 H Blood Pressure Pulse Oximetry Oxygen Delivery Fraction of Inspired Oxygen 04/03/24 05:20 04/03/24 06:00 04/03/24 06:00 Temperature 97.3 F L Pulse Rate 78 74 74 Respiratory Rate 24 H Blood Pressure 96/69 L Pulse Oximetry 94 94 Oxygen Delivery Mechanical Ventilation Fraction of Inspired Oxygen 40 04/03/24 06:00 04/03/24 06:00 04/03/24 06:37 Temperature Pulse Rate 74 74 77 Respiratory Rate 24 H 24 H 24 H Blood Pressure Pulse Oximetry Oxygen Delivery Fraction of Inspired Oxygen 04/03/24 06:37 04/03/24 07:20 04/03/24 07:54 Temperature Pulse Rate 77 70 73 Respiratory Rate 24 H 27 H Blood Pressure Pulse Oximetry 94 Oxygen Delivery Mechanical Ventilation Fraction of Inspired Oxygen 40 04/03/24 07:55 04/03/24 07:56 04/03/24 07:56 Temperature 97.3 F L Pulse Rate 78 80 Respiratory Rate 27 H 27 H Blood Pressure 102/60 Pulse Oximetry 94 Oxygen Delivery Fraction of Inspired Oxygen 40 04/03/24 08:31 Temperature Pulse Rate 81 Respiratory Rate Blood Pressure Pulse Oximetry Oxygen Delivery Fraction of Inspired Oxygen Intake/Output Intake/Output: Intake & Output 03/31/24 04/01/24 04/02/24 04/03/24 23:59 23:59 23:59 23:59 Intake Total 1929.6 2517.8 1573.7 1815.3 Output Total 425 500 655 400 Balance 1504.6 2017.8 918.7 1415.3 Meds/Results Medications: Active Medications Generic Name Dose Route Start Last Admin Trade Name Freq PRN Reason Stop Dose Admin Acetaminophen 650 mg 03/27/24 14:41 03/29/24 05:11 Acetaminophen 325 Mg Tablet PO 650 mg Q4H PRN Administration Mild Pain (1-3) or Fever Amiodarone HCl 400 mg 04/01/24 10:40 04/03/24 08:31 Amiodarone Hcl 200 Mg Tablet PO 400 mg DAILY [facility] Administration Apixaban 5 mg 03/27/24 12:35 04/03/24 08:31 Apixaban 5 Mg Tablet PO 5 mg Q12HR [facility] Administration Cyanocobalamin 1,000 mcg 03/27/24 17:00 04/03/24 08:31 Cyanocobalamin 1,000 Mcg Tablet PO 1,000 mcg BID [facility]ER[facility] Administration Dextrose 12.5 gm 03/27/24 08:57 Dextrose 50% 25 Gm/50 Ml Syringe IV PUSH PRN PRN Hypoglycemia Protocol Glucagon 1 mg 03/27/24 08:57 Glucagon For Inj 1 Mg Vial IM PRN PRN Hypoglycemia Protocol Glucose 15 gm 03/27/24 08:57 Glucose Oral Gel 15 Gm Of Glucse In 37.5 Gm Tube PO PRN PRN Hypoglycemia Protocol Dextrose 1,000 mls @ 100 mls/hr 03/27/24 08:57 Dextrose 5% 1,000 Ml IVPB PRN PRN Hypoglycemia Protocol Fentanyl Citrate 2,500 mcg in 250 mls @ 10 mls/hr 03/28/24 15:45 04/03/24 07:55 Fentanyl 2,500 Mcg/Ns 250 Ml IV CONT 100 mcg/hr .Q25H [facility] 10 mls/hr Titration Protocol 100 MCG/HR Midazolam HCl 100 mg in 100 mls @ 3 mls/hr 03/28/24 19:30 04/03/24 07:54 Versed 100 Mg/Ns 100 Ml IV CONT 3 mg/hr .[id number] [facility] 3 mls/hr Titration Protocol 3 MG/HR Insulin Human Regular 100 100 mls @ 3 mls/hr 04/01/24 12:10 04/03/24 08:40 units/ Sodium Chloride IV CONT 3 units/hr .Q24H [facility] 3 mls/hr Administration Protocol 3 UNITS/HR Norepinephrine Bitartrate 8 mg in 250 mls @ 9.375 mls/hr 04/02/24 14:30 Levophed 8 Mg/D5w 250 Ml IV CONT .Q24H [facility] Protocol 5 MCG/MIN Cefepime HCl 2 gm in 50 mls @ 100 mls/hr 04/03/24 06:00 04/03/24 05:35 Maxipime 2 Gm/Ns 50 Ml IVPB Infused Q24H [facility] Infusion Insulin Aspart 4 - 8 units 03/29/24 13:00 04/01/24 09:59 Insulin Aspart (*Bkc) 100 Units/Ml SUB-Q Not Given Q4HR [facility] Protocol Insulin Glargine 60 units 04/01/24 09:00 04/03/24 08:36 Insulin Glargine (*Bkc) 100 Units/Ml SUB-Q 60 units Q12HR [facility] Administration Metoprolol Tartrate 25 mg 04/01/24 10:40 04/03/24 05:07 Metoprolol Tartrate 25 Mg Tablet PO 25 mg Q6HR [facility] Administration Multi-Ingred Cream/Lotion/Oil/Oint 1 applic 03/28/24 21:00 04/03/24 08:31 Mineral Oil/White Petrolatum Ointment EACH EYE 1 applic Q12HR [facility] Administration Pantoprazole Sodium 40 mg 03/29/24 09:00 04/03/24 08:30 Pantoprazole Sodium Iv 40 Mg Vial IV PUSH 40 mg DAILY [facility] Administration Rosuvastatin Calcium 20 mg 03/28/24 09:00 03/31/24 09:28 Rosuvastatin 20 Mg Tablet PO Not Given DAILY [facility]NE Sodium Chloride 10 ml 03/28/24 22:00 04/03/24 05:08 Central Line Flush IV PUSH 10 ml Q8HR [facility] Administration Sodium Chloride 10 ml 03/28/24 16:14 Central Line Flush IV PUSH PRN PRN with TPN bag changes Sodium Chloride 20 ml 03/28/24 16:14 Central Line Flush IV PUSH PRN PRN after blood draws Radiology Results: ITS Impressions Chest CTA 03/27/24 06:41 Impression: No evidence of pulmonary embolus, aortic dissection, or aortic aneurysm. Extensive right lower lobe pneumonia. Probable mildly prominent reactive lymphadenopathy the right axilla and subcarinal region. Head CT 03/28/24 22:59 IMPRESSION: 1. Normal brain. Abdomen X-Ray 03/29/24 08:59 IMPRESSION: 1. Lines and tubes in expected positions. 2. Diffuse bilateral lung disease, right greater than left, consistent with multifocal pneumonia. Renal Ultrasound 03/31/24 15:34 IMPRESSION: No hydronephrosis. Perinephric fluid collection adjacent to the left lower pole. Abdomen Ultrasound 03/31/24 15:39 IMPRESSION: Status post cholecystectomy. Pancreas poorly visualized. Otherwise normal abdominal ultrasound findings. Chest X-Ray 04/03/24 06:52 IMPRESSION: 1. Lines and tubes in expected position as detailed above. 2. Persistent opacities in the right mid to lower and left lower lung zones which are concerning for pneumonia. 3. Significant decrease if not resolution of a prior right pleural effusion. Labs Labs: Laboratory Results - last 24 hr 03/28/24 04/02/24 04/02/24 15:14 10:04 11:06 WBC RBC Hgb Hct MCV MCH MCHC RDW Plt Count MPV Puncture Site ABG pH ABG pCO2 ABG pO2 ABG PO2/FiO2 Ratio ABG HCO3 ABG O2 Saturation ABG O2 Content ABG Base Excess A-a Gradient Oxyhemoglobin Carboxyhemoglobin Methemoglobin Reduced Hemoglobin Total Hemoglobin O2 Delivery Device O2 Liters/Min Minute Volume Vent Rate Vent Mode FiO2 Tidal Volume PEEP Peak Inspir Pressure Pressure Support Sodium Potassium Chloride Carbon Dioxide Anion Gap BUN Creatinine Estim Creat Clear Calc Estimated GFR Glucose POC Capillary Glucose 210 H 216 H Calcium Phosphorus Magnesium Total Bilirubin AST ALT Alkaline Phosphatase Total Protein Albumin Mycoplasma pneumon IgM 151 04/02/24 04/02/24 04/02/24 12:04 13:04 14:01 WBC RBC Hgb Hct MCV MCH MCHC RDW Plt Count MPV Puncture Site ABG pH ABG pCO2 ABG pO2 ABG PO2/FiO2 Ratio ABG HCO3 ABG O2 Saturation ABG O2 Content ABG Base Excess A-a Gradient Oxyhemoglobin Carboxyhemoglobin Methemoglobin Reduced Hemoglobin Total Hemoglobin O2 Delivery Device O2 Liters/Min Minute Volume Vent Rate Vent Mode FiO2 Tidal Volume PEEP Peak Inspir Pressure Pressure Support Sodium Potassium Chloride Carbon Dioxide Anion Gap BUN Creatinine Estim Creat Clear Calc Estimated GFR Glucose POC Capillary Glucose 219 H 231 H 218 H Calcium Phosphorus Magnesium Total Bilirubin AST ALT Alkaline Phosphatase Total Protein Albumin Mycoplasma pneumon IgM 04/02/24 04/02/24 04/02/24 15:07 16:08 16:58 WBC RBC Hgb Hct MCV MCH MCHC RDW Plt Count MPV Puncture Site ABG pH ABG pCO2 ABG pO2 ABG PO2/FiO2 Ratio ABG HCO3 ABG O2 Saturation ABG O2 Content ABG Base Excess A-a Gradient Oxyhemoglobin Carboxyhemoglobin Methemoglobin Reduced Hemoglobin Total Hemoglobin O2 Delivery Device O2 Liters/Min Minute Volume Vent Rate Vent Mode FiO2 Tidal Volume PEEP Peak Inspir Pressure Pressure Support Sodium Potassium Chloride Carbon Dioxide Anion Gap BUN Creatinine Estim Creat Clear Calc Estimated GFR Glucose POC Capillary Glucose 216 H 227 H 239 H Calcium Phosphorus Magnesium Total Bilirubin AST ALT Alkaline Phosphatase Total Protein Albumin Mycoplasma pneumon IgM 04/02/24 04/02/24 04/02/24 18:39 19:41 20:50 WBC RBC Hgb Hct MCV MCH MCHC RDW Plt Count MPV Puncture Site ABG pH ABG pCO2 ABG pO2 ABG PO2/FiO2 Ratio ABG HCO3 ABG O2 Saturation ABG O2 Content ABG Base Excess A-a Gradient Oxyhemoglobin Carboxyhemoglobin Methemoglobin Reduced Hemoglobin Total Hemoglobin O2 Delivery Device O2 Liters/Min Minute Volume Vent Rate Vent Mode FiO2 Tidal Volume PEEP Peak Inspir Pressure Pressure Support Sodium Potassium Chloride Carbon Dioxide Anion Gap BUN Creatinine Estim Creat Clear Calc Estimated GFR Glucose POC Capillary Glucose 203 H 165 H 157 H Calcium Phosphorus Magnesium Total Bilirubin AST ALT Alkaline Phosphatase Total Protein Albumin Mycoplasma pneumon IgM 04/02/24 04/02/24 04/02/24 21:46 22:42 23:41 WBC RBC Hgb Hct MCV MCH MCHC RDW Plt Count MPV Puncture Site ABG pH ABG pCO2 ABG pO2 ABG PO2/FiO2 Ratio ABG HCO3 ABG O2 Saturation ABG O2 Content ABG Base Excess A-a Gradient Oxyhemoglobin Carboxyhemoglobin Methemoglobin Reduced Hemoglobin Total Hemoglobin O2 Delivery Device O2 Liters/Min Minute Volume Vent Rate Vent Mode FiO2 Tidal Volume PEEP Peak Inspir Pressure Pressure Support Sodium Potassium Chloride Carbon Dioxide Anion Gap BUN Creatinine Estim Creat Clear Calc Estimated GFR Glucose POC Capillary Glucose 178 H 166 H 199 H Calcium Phosphorus Magnesium Total Bilirubin AST ALT Alkaline Phosphatase Total Protein Albumin Mycoplasma pneumon IgM 04/03/24 04/03/24 04/03/24 00:40 01:48 02:47 WBC RBC Hgb Hct MCV MCH MCHC RDW Plt Count MPV Puncture Site ABG pH ABG pCO2 ABG pO2 ABG PO2/FiO2 Ratio ABG HCO3 ABG O2 Saturation ABG O2 Content ABG Base Excess A-a Gradient Oxyhemoglobin Carboxyhemoglobin Methemoglobin Reduced Hemoglobin Total Hemoglobin O2 Delivery Device O2 Liters/Min Minute Volume Vent Rate Vent Mode FiO2 Tidal Volume PEEP Peak Inspir Pressure Pressure Support Sodium Potassium Chloride Carbon Dioxide Anion Gap BUN Creatinine Estim Creat Clear Calc Estimated GFR Glucose POC Capillary Glucose 194 H 211 H 233 H Calcium Phosphorus Magnesium Total Bilirubin AST ALT Alkaline Phosphatase Total Protein Albumin Mycoplasma pneumon IgM 04/03/24 04/03/24 04/03/24 03:51 04:50 04:51 WBC 9.0 RBC 3.61 L Hgb 11.0 L Hct 32.9 L MCV 91.1 MCH 30.5 MCHC 33.4 RDW 17.5 H Plt Count 213 MPV 10.6 H Puncture Site ABG pH ABG pCO2 ABG pO2 ABG PO2/FiO2 Ratio ABG HCO3 ABG O2 Saturation ABG O2 Content ABG Base Excess A-a Gradient Oxyhemoglobin Carboxyhemoglobin Methemoglobin Reduced Hemoglobin Total Hemoglobin O2 Delivery Device O2 Liters/Min Minute Volume Vent Rate Vent Mode FiO2 Tidal Volume PEEP Peak Inspir Pressure Pressure Support Sodium 135 L Potassium 4.0 Chloride 97 L Carbon Dioxide 31 H Anion Gap 7 BUN 83 H D Creatinine 2.47 H Estim Creat Clear Calc 32 Estimated GFR 19 L Glucose 233 H POC Capillary Glucose 235 H 232 H Calcium 8.2 L Phosphorus 3.7 Magnesium 2.3 Total Bilirubin 1.2 AST 696 H ALT 1053 H Alkaline Phosphatase 323 H Total Protein 5.0 L Albumin 2.7 L Mycoplasma pneumon IgM 04/03/24 04/03/24 04/03/24 05:24 05:42 06:50 WBC RBC Hgb Hct MCV MCH MCHC RDW Plt Count MPV Puncture Site Right radial ABG pH 7.393 ABG pCO2 46.7 H ABG pO2 74.8 L ABG PO2/FiO2 Ratio 1.87 ABG HCO3 27.8 H ABG O2 Saturation 94.8 L ABG O2 Content 15.8 L ABG Base Excess 2.4 A-a Gradient 156.7 Oxyhemoglobin 93.8 Carboxyhemoglobin 0.3 Methemoglobin 0.3 Reduced Hemoglobin 5.6 H Total Hemoglobin 11.9 L O2 Delivery Device Ventilator O2 Liters/Min Not Reportable Minute Volume Not Reportable Vent Rate 24 Vent Mode Cmv FiO2 40 Tidal Volume 400 PEEP 10 Peak Inspir Pressure Not Reportable Pressure Support Not Reportable Sodium Potassium Chloride Carbon Dioxide Anion Gap BUN Creatinine Estim Creat Clear Calc Estimated GFR Glucose POC Capillary Glucose 254 H 273 H Calcium Phosphorus Magnesium Total Bilirubin AST ALT Alkaline Phosphatase Total Protein Albumin Mycoplasma pneumon IgM 04/03/24 04/03/24 07:49 08:39 WBC RBC Hgb Hct MCV MCH MCHC RDW Plt Count MPV Puncture Site ABG pH ABG pCO2 ABG pO2 ABG PO2/FiO2 Ratio ABG HCO3 ABG O2 Saturation ABG O2 Content ABG Base Excess A-a Gradient Oxyhemoglobin Carboxyhemoglobin Methemoglobin Reduced Hemoglobin Total Hemoglobin O2 Delivery Device O2 Liters/Min Minute Volume Vent Rate Vent Mode FiO2 Tidal Volume PEEP Peak Inspir Pressure Pressure Support Sodium Potassium Chloride Carbon Dioxide Anion Gap BUN Creatinine Estim Creat Clear Calc Estimated GFR Glucose POC Capillary Glucose 248 H 240 H Calcium Phosphorus Magnesium Total Bilirubin AST ALT Alkaline Phosphatase Total Protein Albumin Mycoplasma pneumon IgM
[2024-04-03] MEDS: MIDAZOLAM 100MG/NS 100ML(*CRX) 100 MG/100 ML BAG IV CONT (09:25)
[2024-04-03 09:47] LABS: Glucose Point of Care 251 mg/dl (65-105)
[2024-04-03 10:41] LABS: Glucose Point of Care 235 mg/dl (65-105)
[2024-04-03 12:10] LABS: Glucose Point of Care 242 mg/dl (65-105)
[2024-04-03 13:07] LABS: Glucose Point of Care 233 mg/dl (65-105)
[2024-04-03 13:42] LABS: Glucose Point of Care 224 mg/dl (65-105)
--- NOTE | 2024-04-03 13:50 | P.CONGI_ITS ---
Assessment and Plan Assessment and plan (1) Elevated liver enzymes: Code(s): R74.8 - Abnormal levels of other serum enzymes Status: Acute Assessment and Plan: The significant elevation in ALT likely reflects hepatic ischemia secondary to the hemodynamic instability experienced during her hypotension episode(s). However, given her history of obesity and diabetes, the possibility of pre- existing chronic liver disease cannot be excluded. This is further supported by her hypoalbuminemia, which may also be attributed to her critical illness, and a slightly prolonged INR. Discontinuation of amiodarone, a potential contributing factor to liver injury, is appropriate. Serial liver function tests will be monitored until a clear trend towards normalization is observed. Following discharge from the acute care setting, the patient should be followed closely in the clinic to further investigate and confirm the presence of any underlying chronic liver disease. GI Consult Note Consult date/time: 04/03/24 13:50 Reason for consult: Increased transaminases HPI: Yulia Francisco is a 68-year-old female who has been intubated in the ICU since 03/28/2024. Her clinical course has been complicated by pneumonia and sepsis, leading to atrial fibrillation with rapid ventricular response and subsequent hemodynamic instability requiring the use of vasopressors to maintain blood pressure. However, the patient has been successfully weaned off vasopressors for the past 48 hours, and her blood pressure is currently stable with a systolic pressure around 130 mmHg. Recent laboratory findings have revealed a significant elevation in transaminase levels, particularly ALT (1053), prompting this consultation. Her INR is 1.4 and prothrombin time 17.7 seconds. Albumin is 2.7 and platelet count has been normal. According to the , there is no previous history of chronic liver disease, however the patient has always been markedly obese, diabetic hypertensive and with sleep apnea. Review of Systems 2 Review of Systems: All systems reviewed & are unremarkable except as noted in HPI and below [facility] Past Medical History Medical History (Updated 03/31/24 @ 16:39 by Beck Cortez MD) Atrial fibrillation History of endometrial cancer Sleep apnea does not use CPAP High cholesterol Diabetes Hypertension Surgical History Surgical History History of total hysterectomy (~2018) History of cholecystectomy (~1998) History of 1977, 1983, 1990 Family History Family History Mother Uterine cancer Daughter Thyroid cancer Sibling Spinal cord cancer Social History Social History Social History: Patient lives at home with her . No pets in the home. Smoking status: Never smoker Alcohol intake: current Alcohol use details: occasional. Less than once a month. Substance use: never Substance use type: does not use Do You Feel Safe in your Home?: Yes Lack of Transportation: No Lack of Food: Never True Current Housing: I Have Housing Concerned About Future Housing: No Difficulty Paying Gas/Electric Bills: No Difficulty Paying for Meds: YES Currently Unemployed: No Education: Trade/Vocational Certificate Difficulty w/ Childcare or Family Care: No Living arrangements: with family Spiritual care concerns: No Meds Home Medications and Allergies Home Medications ?Medication ?Instructions ?Recorded ?Confirmed ?Type losartan 100 1 tablet PO DAILY 03/19/22 03/27/24 History mg-hydrochlorothiazide 25 mg tablet metformin 500 mg tablet 500 mg PO BID 03/19/22 03/27/24 History metoprolol tartrate 25 mg tablet 25 mg PO BID 03/19/22 03/27/24 History rosuvastatin 20 mg tablet 20 mg PO DAILY 01/01/23 03/27/24 History ezetimibe 10 mg tablet 10 mg PO DAILY 01/07/23 03/27/24 History cyanocobalamin (vitamin B-12) 2 tablet PO DAILY 01/06/24 03/27/24 History apixaban 5 mg tablet (Eliquis) 5 mg PO Q12H 03/27/24 03/27/24 History tirzepatide 2.5 mg/0.5 mL 2.5 mg subcut WEEKLY 03/27/24 03/27/24 History subcutaneous pen injector (Mounjaro) Allergies Allergy/AdvReac Type Severity Reaction Status Date / Time No Known Allergies Allergy Verified 03/27/24 11:06 Vital Signs Vital Signs - 24 hr 04/02/24 14:00 04/02/24 14:00 04/02/24 14:00 Temperature 97.5 F L Pulse Rate 80 80 76 Respiratory Rate 28 H 28 H Blood Pressure 99/53 L Pulse Oximetry 95 Oxygen Delivery Fraction of Inspired Oxygen 04/02/24 14:00 04/02/24 14:21 04/02/24 16:00 Temperature 97.6 F Pulse Rate 79 80 81 Respiratory Rate 26 H 26 H Blood Pressure 90/65 L Pulse Oximetry 95 94 Oxygen Delivery Mechanical Ventilation Fraction of Inspired Oxygen 40 04/02/24 16:00 04/02/24 16:00 04/02/24 16:00 Temperature Pulse Rate 83 83 Respiratory Rate 22 H 22 H Blood Pressure Pulse Oximetry 93 Oxygen Delivery Mechanical Ventilation Fraction of Inspired Oxygen 40 04/02/24 16:00 04/02/24 16:00 04/02/24 17:26 Temperature Pulse Rate 90 90 Respiratory Rate Blood Pressure Pulse Oximetry 93 Oxygen Delivery Mechanical Ventilation Fraction of Inspired Oxygen 40 40 04/02/24 17:30 04/02/24 17:30 04/02/24 17:45 Temperature 97.3 F L Pulse Rate 88 86 Respiratory Rate 26 H Blood Pressure 104/74 119/76 Pulse Oximetry 93 Oxygen Delivery Fraction of Inspired Oxygen 40 04/02/24 18:00 04/02/24 18:00 04/02/24 18:00 Temperature 97.1 F L Pulse Rate 93 100 85 Respiratory Rate 14 24 H Blood Pressure 102/64 101/78 Pulse Oximetry 91 Oxygen Delivery Fraction of Inspired Oxygen 04/02/24 18:00 04/02/24 18:00 04/02/24 18:15 Temperature Pulse Rate 85 91 92 Respiratory Rate 24 H Blood Pressure 96/61 L Pulse Oximetry Oxygen Delivery Fraction of Inspired Oxygen 04/02/24 18:30 04/02/24 18:45 04/02/24 19:00 Temperature Pulse Rate 95 93 95 Respiratory Rate Blood Pressure 101/78 95/64 L 81/60 L Pulse Oximetry Oxygen Delivery Fraction of Inspired Oxygen 04/02/24 19:15 04/02/24 19:30 04/02/24 19:45 Temperature Pulse Rate 92 95 93 Respiratory Rate Blood Pressure 93/63 L 98/63 L 93/66 L Pulse Oximetry Oxygen Delivery Fraction of Inspired Oxygen 04/02/24 20:00 04/02/24 20:00 04/02/24 20:00 Temperature Pulse Rate 94 87 87 Respiratory Rate 28 H 28 H Blood Pressure 97/67 L Pulse Oximetry Oxygen Delivery Fraction of Inspired Oxygen 04/02/24 20:00 04/02/24 20:00 04/02/24 20:00 Temperature 87 F L Pulse Rate 87 Respiratory Rate 28 H Blood Pressure 97/67 L Pulse Oximetry 90 90 Oxygen Delivery Mechanical Ventilation Fraction of Inspired Oxygen 40 40 04/02/24 20:00 04/02/24 20:15 04/02/24 20:30 Temperature Pulse Rate 87 96 95 Respiratory Rate Blood Pressure 91/65 L 103/68 Pulse Oximetry Oxygen Delivery Fraction of Inspired Oxygen 04/02/24 20:45 04/02/24 20:45 04/02/24 20:55 Temperature Pulse Rate 90 94 92 Respiratory Rate 27 H 27 H Blood Pressure 97/59 L Pulse Oximetry Oxygen Delivery Fraction of Inspired Oxygen 04/02/24 21:00 04/02/24 21:13 04/02/24 21:15 Temperature Pulse Rate 94 94 92 Respiratory Rate Blood Pressure 92/59 L 99/72 L Pulse Oximetry 90 Oxygen Delivery Mechanical Ventilation Fraction of Inspired Oxygen 40 04/02/24 21:24 04/02/24 21:30 04/02/24 22:00 Temperature 97.9 F Pulse Rate 92 92 93 Respiratory Rate 13 28 H 28 H Blood Pressure 93/70 L Pulse Oximetry 91 Oxygen Delivery Fraction of Inspired Oxygen 04/02/24 22:00 04/02/24 22:00 04/02/24 22:00 Temperature 97.8 F Pulse Rate 93 93 93 Respiratory Rate 28 H 28 H Blood Pressure 115/82 Pulse Oximetry 94 Oxygen Delivery Fraction of Inspired Oxygen 04/02/24 23:19 04/02/24 23:38 04/03/24 00:00 Temperature Pulse Rate 102 H 80 83 Respiratory Rate 27 H Blood Pressure Pulse Oximetry 93 Oxygen Delivery Mechanical Ventilation Fraction of Inspired Oxygen 40 04/03/24 00:00 04/03/24 00:00 04/03/24 00:00 Temperature Pulse Rate 83 Respiratory Rate 27 H Blood Pressure Pulse Oximetry 94 Oxygen Delivery Mechanical Ventilation Fraction of Inspired Oxygen 40 40 04/03/24 00:00 04/03/24 00:00 04/03/24 02:00 Temperature 97.8 F Pulse Rate 75 75 80 Respiratory Rate 26 H 27 H Blood Pressure 105/73 Pulse Oximetry 94 Oxygen Delivery Fraction of Inspired Oxygen 04/03/24 02:00 04/03/24 02:00 04/03/24 02:00 Temperature 98 F Pulse Rate 80 80 80 Respiratory Rate 27 H 27 H Blood Pressure 98/66 L Pulse Oximetry 93 Oxygen Delivery Fraction of Inspired Oxygen 04/03/24 02:33 04/03/24 04:00 04/03/24 04:00 Temperature 97.7 F Pulse Rate 80 79 Respiratory Rate 27 H Blood Pressure 126/76 Pulse Oximetry 94 94 Oxygen Delivery Mechanical Ventilation Fraction of Inspired Oxygen 40 40 04/03/24 04:00 04/03/24 04:00 04/03/24 04:00 Temperature Pulse Rate 79 79 Respiratory Rate 27 H Blood Pressure Pulse Oximetry 94 Oxygen Delivery Mechanical Ventilation Fraction of Inspired Oxygen 40 04/03/24 04:00 04/03/24 05:07 04/03/24 05:20 Temperature Pulse Rate 79 86 78 Respiratory Rate 27 H Blood Pressure Pulse Oximetry 94 Oxygen Delivery Mechanical Ventilation Fraction of Inspired Oxygen 40 04/03/24 06:00 04/03/24 06:00 04/03/24 06:00 Temperature 97.3 F L Pulse Rate 74 74 74 Respiratory Rate 24 H 24 H Blood Pressure 96/69 L Pulse Oximetry 94 Oxygen Delivery Fraction of Inspired Oxygen 04/03/24 06:00 04/03/24 06:37 04/03/24 06:37 Temperature Pulse Rate 74 77 77 Respiratory Rate 24 H 24 H 24 H Blood Pressure Pulse Oximetry Oxygen Delivery Fraction of Inspired Oxygen 04/03/24 07:20 04/03/24 07:54 04/03/24 07:55 Temperature Pulse Rate 70 73 78 Respiratory Rate 27 H 27 H Blood Pressure Pulse Oximetry 94 Oxygen Delivery Mechanical Ventilation Fraction of Inspired Oxygen 40 04/03/24 07:56 04/03/24 07:56 04/03/24 08:00 Temperature 97.3 F L Pulse Rate 80 81 Respiratory Rate 27 H Blood Pressure 102/60 Pulse Oximetry 94 Oxygen Delivery Fraction of Inspired Oxygen 40 04/03/24 08:31 04/03/24 09:25 04/03/24 09:25 Temperature Pulse Rate 81 71 71 Respiratory Rate 27 H 27 H Blood Pressure Pulse Oximetry Oxygen Delivery Fraction of Inspired Oxygen 04/03/24 09:55 04/03/24 09:55 04/03/24 10:00 Temperature 97.1 F L Pulse Rate 82 80 79 Respiratory Rate 26 H 26 H 26 H Blood Pressure 110/62 Pulse Oximetry 94 Oxygen Delivery Fraction of Inspired Oxygen 04/03/24 10:00 04/03/24 10:04 04/03/24 10:41 Temperature Pulse Rate 79 74 91 Respiratory Rate 28 H Blood Pressure Pulse Oximetry 94 Oxygen Delivery Mechanical Ventilation Fraction of Inspired Oxygen 40 04/03/24 10:41 04/03/24 11:46 04/03/24 12:00 Temperature Pulse Rate 73 78 75 Respiratory Rate 28 H 24 H Blood Pressure Pulse Oximetry Oxygen Delivery Fraction of Inspired Oxygen 04/03/24 12:00 04/03/24 12:00 04/03/24 13:05 Temperature 96.9 F L Pulse Rate 82 83 81 Respiratory Rate 24 H 23 H Blood Pressure 139/89 Pulse Oximetry 94 98 Oxygen Delivery Mechanical Ventilation Fraction of Inspired Oxygen 40 Exam 2 Narrative: General: elderly but WD/WN female intubated/sedated and on mechanical ventilation Heart: IRRR, normal S1 and S2; no rub or gallop Lungs: coarse upper airway sounds; few crackles at bases Abdomen: soft, nontender, nondistended, positive bowel sounds Extremities: 1 to2+ bilateral edema, upper and lower extremities Skin: No rash or subcu nodules Results Labs 04/03/24 04:51 04/03/24 04:51 Labs: Short CBC 04/03/24 Range/Units 04:51 WBC 9.0 (4.5-10.0) K/mm3 Hgb 11.0 L (12.0-15.0) g/dL Hct 32.9 L (37.0-47.0) % Plt Count 213 (150-375) k/mm3 BMP 04/03/24 04:51 Sodium 135 L Potassium 4.0 Chloride 97 L Carbon Dioxide 31 H BUN 83 H D Creatinine 2.47 H Glucose 233 H Calcium 8.2 L Liver Function 04/03/24 Range/Units 04:51 Total Bilirubin 1.2 (0.2-1.3) mg/dL AST 696 H (14-36) U/L ALT 1053 H (6-35) U/L Alkaline Phosphatase 323 H (38-126) U/L Albumin 2.7 L (3.5-5.1) g/dL
[2024-04-03 15:28] LABS: Glucose Point of Care 198 mg/dl (65-105)
[2024-04-03 15:53] LABS: Glucose Point of Care 195 mg/dl (65-105)
[2024-04-03 16:57] LABS: Glucose Point of Care 184 mg/dl (65-105)
[2024-04-03 17:56] LABS: Glucose Point of Care 222 mg/dl (65-105)
[2024-04-03 18:55] LABS: Glucose Point of Care 202 mg/dl (65-105)
[2024-04-03 20:20] LABS: Glucose Point of Care 208 mg/dl (65-105)
[2024-04-04] VITALS (53 sets, daily range): BP systolic 77–147; BP diastolic 46–83; PULSE 80–120; RESP 16–30; TEMP 36.6–37; O2SAT 92–97
[2024-04-04 00:07] LABS: Glucose Point of Care 221 mg/dl (65-105)
[2024-04-04 00:07] LABS: Glucose Point of Care 229 mg/dl (65-105)
[2024-04-04 00:07] LABS: Glucose Point of Care 215 mg/dl (65-105)
[2024-04-04 00:07] LABS: Glucose Point of Care 215 mg/dl (65-105)
[2024-04-04 04:49] LABS: Alveolar/Arterial O2 Gradient 152.5 mmHg; Base Excess ABG 1.3 mEq/l (+/-2.0); Carboxyhemoglobin 0.6 % THb (0-2.0); Fractional Inspired Oxygen 40 %; Methemoglobin ABG 0.1 %THb (0-1.5); Oxygen Content ABG 22.4 %vol (16.0-22.0); Oxygen Saturation ABG 96.5 % (95.0-100.0); Oxyhemoglobin 95.4 % THb (90.0-100.0); PCO2 ABG 41.6 mmHg (35.0-45.0); PO2 ABG 84.9 mmHg (80.0-100.0); PO2 FiO2 Ratio Arterial Blood 2.12 %; Reduced Hemoglobin 3.9 %THb (0-5.0); Total Hemoglobin 16.7 g/dL (12.0-18.0); pH ABG 7.414 (7.350-7.450)
[2024-04-04 05:05] LABS: Modified Allen's Test Pass; Site Drawn RIGHT RADIAL
[2024-04-04 05:06] LABS: Arterial Blood Gas PEEP 10 cmH2O; Arterial Blood Gas Tidal Volume 400 ml; Arterial Blood Gas Vent Mode CMV; Arterial Blood Gas Ventilator rate 24 /MIN; Device VENTILATOR
[2024-04-04] MEDS: METOPROLOL TARTRATE 25 MG TABLET PO ×2 (05:09→17:39)
[2024-04-04] MEDS: CENTRAL LINE FLUSH 10 ML IV PUSH ×3 (05:09→22:05)
[2024-04-04 05:20] LABS: Hematocrit 36.3 % (37.0-47.0); Mean Corpuscular HGB Conc 33.1 g/dl (32-36); Mean Corpuscular Volume 90.8 fl (80-100); Mean Platelet Volume 10.3 fl (7.4-10.4); Platelet Count Result 288 k/mm3 (150-375); Red Cell Distribution Width 17.6 % (11.5-14.5); White Blood Count 14.2 K/mm3 (4.5-10.0)
[2024-04-04 05:33] LABS: Triglycerides 79 mg/dL (<150)
[2024-04-04 05:34] LABS: Albumin Level 2.9 g/dL (3.5-5.1); Alkaline Phosphatase 321 U/L (38-126); Anion Gap 11 mmol/L (4-12); Aspartate Amino Transferase 169 U/L (14-36); Blood Urea Nitrogen 114 mg/dL (7-17); Calcium 8.5 mg/dL (8.4-10.2); Carbon Dioxide 27 mmol/L (22-30); Chloride 97 mmol/L (98-107); Estimated CRCL calculation 25 ml/min; Estimated Glomerular Filt Rate 14; Glucose 226 mg/dL (65-110); Magnesium 2.5 mg/dL (1.6-2.3); Phosphorus 4.6 mg/dL (2.5-4.5); Potassium 4.2 mmol/L (3.4-5.0); Sodium 135 mmol/L (137-145)
[2024-04-04 05:58] LABS: Alanine Aminotransferase 975 U/L (6-35)
[2024-04-04 07:01] LABS: Glucose Point of Care 252 mg/dl (65-105)
[2024-04-04 07:01] LABS: Glucose Point of Care 217 mg/dl (65-105)
[2024-04-04 07:01] LABS: Glucose Point of Care 233 mg/dl (65-105)
[2024-04-04 07:01] LABS: Glucose Point of Care 226 mg/dl (65-105)
[2024-04-04 07:01] LABS: Glucose Point of Care 239 mg/dl (65-105)
[2024-04-04 07:01] LABS: Glucose Point of Care 221 mg/dl (65-105)
[2024-04-04 07:01] LABS: Glucose Point of Care 219 mg/dl (65-105)
[2024-04-04 08:05] LABS: Glucose Point of Care 213 mg/dl (65-105)
--- NOTE | 2024-04-04 08:34 | WPDINTPN ---
Progress Note: A&P Assessment and Plan (1) Acute hypoxic respiratory failure: Code(s): J96.01 - Acute respiratory failure with hypoxia Status: Acute Assessment and Plan: Acute hypoxic respiratory failure secondary to pneumonia and congestive heart failure 03/27 CTA chest No evidence of pulmonary embolus, aortic dissection, or aortic aneurysm. Extensive right lower lobe pneumonia. Probable mildly prominent reactive lymphadenopathy the right axilla and subcarinal region. Patient now emergently intubated 03/28 Chest x-ray shows improved ABG reviewed Currently PEEP to 10 and FiO2 is down to 40 per I anticipate patient will review additional fluid removal before we can consider weaning. But I will perform sedation holiday She is on Versed and fentanyl for sedation Repeat PCR was positive RSV -isolation Completed course of hydrocortisone will discontinue completely. Continue dialysis to remove additional fluid before weaning attempts. (2) Sepsis: Code(s): A41.9 - Sepsis, unspecified organism Status: Acute Assessment and Plan: Sepsis secondary to community-acquired pneumonia Blood cultures ordered and negative till now Pain sputum culture Urine Legionella and pneumococcal antigen negative Continue empiric cefepime azithromycin. procalcitonin level 4.4 MRSA screen negative. Vancomycin discontinued (3) Diabetes: Code(s): E11.9 - Type 2 diabetes mellitus without complications Status: Chronic Assessment and Plan: Currently on insulin infusion Continue Lantus to 60 units q.12 Steroids are being discontinued and dialysis being started anticipate glycemic control improved and we will be able to wean off insulin infusion Continue tube feed (4) Atrial fibrillation with RVR: Code(s): I48.91 - Unspecified atrial fibrillation Status: Acute Assessment and Plan: Patient was amiodarone infusion which has been switched to p.o. amiodarone per tube metoprolol by Cardiology Patient is anticoagulated with Eliquis Echo Summary 1. Very technically difficult study with limited views. 2. Left ventricular chamber dimension is normal. 3. Left ventricular systolic function is at lower limits of normal, estimated at 50-55%. 4. Left atrial chamber dimension is moderately enlarged (5) Community acquired pneumonia: Code(s): J18.9 - Pneumonia, unspecified organism Status: Acute Assessment and Plan: See above (6) Altered mental status: Code(s): R41.82 - Altered mental status, unspecified Status: Acute Assessment and Plan: Likely secondary to hypoxic. Patient had CT scan of the head recently done which was unremarkable Repeat head CT on 03/28 was again on remark And ammonia normal TSH was normal (7) Electrolyte abnormality: Code(s): E87.8 - Other disorders of electrolyte and fluid balance, not elsewhere classified Status: Acute Assessment and Plan: Improved after placement. Continue to monitor (8) Shock: Code(s): R57.9 - Shock, unspecified Status: Acute Assessment and Plan: Patient was on Levophed and vasopressin infusion which are currently off Continue hydrocortisone but start tapering She did receive 25% albumin Hold further crystalloids (9) VINCENT (acute kidney injury): Code(s): N17.9 - Acute kidney failure, unspecified Status: Acute Assessment and Plan: Increase in creatinine and drop in urine output likely secondary to shock Patient received IV fluids and 5% albumin earlier the course. norm CK level Renal ultrasound showed No hydronephrosis. Perinephric fluid collection adjacent to the left lower pole. Nephrology following Continued maintain mean arterial pressure with vasopressors if needed 04/02 Discussed with phlebotomy tech and patient's family. Discussed risks and benefits of starting hemodialysis. Emergency Management Specialist and patient's family in agreement. Patient's consented to proceed. Temporary dialysis catheter placed. Patient was dialyzed. Further dialysis per as per Nephrology (10) Elevated liver enzymes: Code(s): R74.8 - Abnormal levels of other serum enzymes Status: Acute Assessment and Plan: Patient is status post cholecystectomy Elevated AST ALT and alkaline phosphatase likely secondary to shock liver Hold statin Right upper quadrant ultrasound - Status post cholecystectomy. Pancreas poorly visualized. Otherwise normal abdominal ultrasound findings. While hepatitis panel was negative Levels were increasing I have discussed with Cardiology regarding potential amiodarone related hepatotoxicity. Patient was on IV amiodarone earlier for rate control as patient was in AFib with RVR. It was switched to p.o. as the rate improved. 2/2 amiodarone was held GI consult and following 2/3 levels improving. Monitor Plan DVT prophylaxis -Eliquis Stress ulcer prophylaxis -protonix Nutrition -continue tube feed Code Status - Full Code 03/31 I spoke to patient's and daughter at bedside and updated them with patient's current status including septic shock, respiratory failure, AFib with RVR, VINCENT and worsening renal function and possibility of patient needing dialysis. We also discussed her elevated liver enzymes. I answered all their question Case also discussed with hospitalist 04/01-updated at bedside answered all his questions. 04/02 spoke to patient's at bedside and answered all his questions. Updated him with patient's status Total Critical Care Time - 35 minutes Due to a high probability of clinically significant, life threatening deterioration, the patient required my highest level of preparedness to intervene emergently and I personally spent this critical care time directly and personally managing the patient. This critical care time included obtaining a history; examining the patient; pulse oximetry; ordering and review of studies; arranging urgent treatment with development of a management plan; evaluation of patient's response to treatment; frequent reassessment; and discussions with other providers. It was exclusive of separately billable procedures and treating other patients and teaching time. Please see Assessment and Plan section and the rest of the note for further information on patient assessment and treatment Subjective Date/time seen: 04/04/24 Overnight events reviewed. Afebrile Continues to be on mechanical ventilation 10 of PEEP and 40% FiO2 off vasopressors Continues to be sedated with Versed and fentanyl Tolerating tube feeds. For urine output. Other Vitals acceptable Interval history: 68yo female with AFib s/p SHAYY cardioversion that was unsuccessful, KAREN not using CPAP, DM, HTN and endometrial cancer who presents with shortness of breath, leg swelling and weight gain over the past few weeks. Now in with respiratory failure secondary to pneumonia with septic shock. Intubated and on mechanical ventilation Review of Systems Review of Systems: ROS unobtainable: Yes unobtainable due to endotracheal tube, unobtainable due to medical condition and unobtainable due to mental status Exam Narrative: General: Pt is now sedated, intubated and on mechanical ventilation peer Lungs/Chest: Trachea central Coarse BS B/L, Cardiac: RRR. Normal S1 S2. No murmurs Circulation: Pedal pulses are intact and symmetrical. Abdomen: Decreased bowel sounds. Morbidly Obese. Soft. NT. ND. Extremities: No clubbing, cyanosis or bilateral pitting edema present : Can in place Neurologic: Unable to assess due to sedation, PERRL Objective Data Vital Signs Vital Signs: Vital Signs - 24 hr 04/03/24 09:25 04/03/24 09:25 04/03/24 09:55 Temperature Pulse Rate 71 71 82 Respiratory Rate 27 H 27 H 26 H Blood Pressure Pulse Oximetry Oxygen Delivery Fraction of Inspired Oxygen 04/03/24 09:55 04/03/24 10:00 04/03/24 10:00 Temperature 36.2 C L Pulse Rate 80 79 79 Respiratory Rate 26 H 26 H Blood Pressure 110/62 Pulse Oximetry 94 Oxygen Delivery Fraction of Inspired Oxygen 04/03/24 10:04 04/03/24 10:41 04/03/24 10:41 Temperature Pulse Rate 74 91 73 Respiratory Rate 28 H 28 H Blood Pressure Pulse Oximetry 94 Oxygen Delivery Mechanical Ventilation Fraction of Inspired Oxygen 40 04/03/24 11:46 04/03/24 12:00 04/03/24 12:00 Temperature Pulse Rate 78 75 82 Respiratory Rate 24 H 24 H Blood Pressure Pulse Oximetry Oxygen Delivery Fraction of Inspired Oxygen 04/03/24 12:00 04/03/24 12:00 04/03/24 12:00 Temperature 36.1 C L Pulse Rate 83 85 Respiratory Rate 23 H Blood Pressure 139/89 Pulse Oximetry 94 Oxygen Delivery Fraction of Inspired Oxygen 40 04/03/24 12:00 04/03/24 13:05 04/03/24 14:00 Temperature Pulse Rate 81 81 Respiratory Rate 26 H Blood Pressure Pulse Oximetry 98 98 Oxygen Delivery Mechanical Ventilation Mechanical Ventilation Fraction of Inspired Oxygen 40 40 04/03/24 14:00 04/03/24 14:00 04/03/24 14:00 Temperature 36.1 C L Pulse Rate 81 92 81 Respiratory Rate 26 H 26 H Blood Pressure 150/92 H Pulse Oximetry 94 Oxygen Delivery Fraction of Inspired Oxygen 04/03/24 16:00 04/03/24 16:00 04/03/24 16:00 Temperature 35.8 C L Pulse Rate 94 92 93 Respiratory Rate 27 H 26 H 31 H Blood Pressure 117/73 Pulse Oximetry 93 Oxygen Delivery Fraction of Inspired Oxygen 04/03/24 16:00 04/03/24 16:00 04/03/24 16:00 Temperature Pulse Rate 92 Respiratory Rate Blood Pressure Pulse Oximetry 93 Oxygen Delivery Mechanical Ventilation Fraction of Inspired Oxygen 40 40 04/03/24 16:00 04/03/24 17:00 04/03/24 17:58 Temperature Pulse Rate 82 89 85 Respiratory Rate 28 H Blood Pressure Pulse Oximetry 95 Oxygen Delivery Mechanical Ventilation Fraction of Inspired Oxygen 40 04/03/24 18:00 04/03/24 18:00 04/03/24 18:00 Temperature 36.0 C L Pulse Rate 89 89 81 Respiratory Rate 28 H 27 H Blood Pressure 128/75 Pulse Oximetry 94 Oxygen Delivery Fraction of Inspired Oxygen 04/03/24 19:41 04/03/24 20:00 04/03/24 20:00 Temperature Pulse Rate 77 86 86 Respiratory Rate 24 H 24 H Blood Pressure Pulse Oximetry 94 Oxygen Delivery Mechanical Ventilation Fraction of Inspired Oxygen 40 04/03/24 20:00 04/03/24 20:00 04/03/24 20:00 Temperature 36.4 C Pulse Rate 86 Respiratory Rate 18 Blood Pressure 123/87 Pulse Oximetry 94 Oxygen Delivery Mechanical Ventilation Fraction of Inspired Oxygen 40 40 04/03/24 20:00 04/03/24 22:00 04/03/24 22:00 Temperature 36.5 C Pulse Rate 74 97 97 Respiratory Rate 29 H 29 H Blood Pressure 118/81 Pulse Oximetry 94 Oxygen Delivery Fraction of Inspired Oxygen 04/03/24 22:00 04/03/24 22:00 04/03/24 22:46 Temperature Pulse Rate 97 97 75 Respiratory Rate 29 H Blood Pressure Pulse Oximetry 97 Oxygen Delivery Mechanical Ventilation Fraction of Inspired Oxygen 40 04/03/24 23:55 04/04/24 00:00 04/04/24 00:00 Temperature Pulse Rate 99 93 93 Respiratory Rate 29 H 29 H Blood Pressure Pulse Oximetry Oxygen Delivery Fraction of Inspired Oxygen 04/04/24 00:00 04/04/24 00:00 04/04/24 00:00 Temperature Pulse Rate 102 H Respiratory Rate Blood Pressure Pulse Oximetry Oxygen Delivery Mechanical Ventilation Fraction of Inspired Oxygen 40 40 04/04/24 00:00 04/04/24 02:00 04/04/24 02:00 Temperature 36.7 C Pulse Rate 93 95 95 Respiratory Rate 24 H 24 H 24 H Blood Pressure 115/65 Pulse Oximetry 94 Oxygen Delivery Fraction of Inspired Oxygen 04/04/24 02:00 04/04/24 02:00 04/04/24 02:09 Temperature 36.8 C Pulse Rate 95 95 101 H Respiratory Rate 24 H Blood Pressure 123/78 Pulse Oximetry 94 95 Oxygen Delivery Mechanical Ventilation Fraction of Inspired Oxygen 40 04/04/24 03:31 04/04/24 03:36 04/04/24 04:00 Temperature Pulse Rate 98 Respiratory Rate Blood Pressure Pulse Oximetry Oxygen Delivery Mechanical Ventilation Fraction of Inspired Oxygen 40 40 04/04/24 04:00 04/04/24 04:00 04/04/24 04:00 Temperature 36.8 C Pulse Rate 102 H 102 H 102 H Respiratory Rate 24 H 24 H 24 H Blood Pressure 128/73 Pulse Oximetry 95 Oxygen Delivery Fraction of Inspired Oxygen 04/04/24 05:09 04/04/24 05:14 04/04/24 06:00 Temperature Pulse Rate 97 100 91 Respiratory Rate 28 H Blood Pressure Pulse Oximetry 96 Oxygen Delivery Mechanical Ventilation Fraction of Inspired Oxygen 40 04/04/24 06:00 04/04/24 06:00 04/04/24 06:00 Temperature 36.7 C Pulse Rate 91 91 91 Respiratory Rate 28 H 28 H Blood Pressure 117/71 Pulse Oximetry 95 Oxygen Delivery Fraction of Inspired Oxygen 04/04/24 08:02 04/04/24 08:02 04/04/24 08:12 Temperature Pulse Rate 90 96 98 Respiratory Rate 30 H 30 H Blood Pressure Pulse Oximetry 95 Oxygen Delivery Mechanical Ventilation Fraction of Inspired Oxygen 40 Intake/Output Intake/Output: Intake & Output 04/01/24 04/02/24 04/03/24 04/04/24 23:59 23:59 23:59 23:59 Intake Total 2517.8 1573.7 2708.7 1107.1 Output Total 500 655 650 650 Balance 2017.8 918.7 2058.7 457.1 Meds/Results Medications: Active Medications Generic Name Dose Route Start Last Admin Trade Name Freq PRN Reason Stop Dose Admin Acetaminophen 650 mg 03/27/24 14:41 03/29/24 05:11 Acetaminophen 325 Mg Tablet PO 650 mg Q4H PRN Administration Mild Pain (1-3) or Fever Amiodarone HCl 400 mg 04/01/24 10:40 04/03/24 08:31 Amiodarone Hcl 200 Mg Tablet PO 400 mg DAILY LAVERNE Administration Apixaban 5 mg 03/27/24 12:35 04/03/24 20:06 Apixaban 5 Mg Tablet PO 5 mg Q12HR LAVERNE Administration Cyanocobalamin 1,000 mcg 03/27/24 17:00 04/03/24 16:19 Cyanocobalamin 1,000 Mcg Tablet PO 1,000 mcg BID LAVERNE Administration Dextrose 12.5 gm 03/27/24 08:57 Dextrose 50% 25 Gm/50 Ml Syringe IV PUSH PRN PRN Hypoglycemia Protocol Glucagon 1 mg 03/27/24 08:57 Glucagon For Inj 1 Mg Vial IM PRN PRN Hypoglycemia Protocol Glucose 15 gm 03/27/24 08:57 Glucose Oral Gel 15 Gm Of Glucse In 37.5 Gm Tube PO PRN PRN Hypoglycemia Protocol Dextrose 1,000 mls @ 100 mls/hr 03/27/24 08:57 Dextrose 5% 1,000 Ml IVPB PRN PRN Hypoglycemia Protocol Fentanyl Citrate 2,500 mcg in 250 mls @ 2.5 mls/hr 03/28/24 15:45 04/04/24 08:02 Fentanyl 2,500 Mcg/Ns 250 Ml IV CONT 25 mcg/hr .Q72H LAVERNE 2.5 mls/hr Titration Protocol 25 MCG/HR Midazolam HCl 100 mg in 100 mls @ 1 mls/hr 03/28/24 19:30 04/04/24 08:02 Versed 100 Mg/Ns 100 Ml IV CONT 1 mg/hr .Q72H LAVERNE 1 mls/hr Titration Protocol 1 MG/HR Insulin Human Regular 100 100 mls @ 2 mls/hr 04/01/24 12:10 04/04/24 08:01 units/ Sodium Chloride IV CONT 2 units/hr .Q24H LAVERNE 2 mls/hr Titration Protocol 2 UNITS/HR Norepinephrine Bitartrate 8 mg in 250 mls @ 9.375 mls/hr 04/02/24 14:30 04/04/24 07:55 Levophed 8 Mg/D5w 250 Ml IV CONT Not Given .Q24H LAVERNE Protocol 5 MCG/MIN Albumin Human 50 mls @ 999 mls/hr 04/03/24 09:19 Albutein IVPB 05/03/24 09:18 Q10M PRN HYPOTENSION Cefepime HCl 2 gm in 50 mls @ 100 mls/hr 04/04/24 15:00 Maxipime 2 Gm/Ns 50 Ml IVPB Q24H LAVERNE Insulin Aspart 4 - 8 units 03/29/24 13:00 04/01/24 09:59 Insulin Aspart (*Bkc) 100 Units/Ml SUB-Q Not Given Q4HR LAVERNE Protocol Insulin Glargine 60 units 04/01/24 09:00 04/03/24 20:06 Insulin Glargine (*Bkc) 100 Units/Ml SUB-Q 60 units Q12HR LAVERNE Administration Metoprolol Tartrate 25 mg 04/01/24 10:40 04/04/24 05:09 Metoprolol Tartrate 25 Mg Tablet PO 25 mg Q6HR LAVERNE Administration Multi-Ingred Cream/Lotion/Oil/Oint 1 applic 03/28/24 21:00 04/03/24 20:06 Mineral Oil/White Petrolatum Ointment EACH EYE 1 applic Q12HR LAVERNE Administration Pantoprazole Sodium 40 mg 03/29/24 09:00 04/03/24 08:30 Pantoprazole Sodium Iv 40 Mg Vial IV PUSH 40 mg DAILY LAVERNE Administration Rosuvastatin Calcium 20 mg 03/28/24 09:00 03/31/24 09:28 Rosuvastatin 20 Mg Tablet PO Not Given DAILY LAVERNE Sodium Chloride 10 ml 03/28/24 22:00 04/04/24 05:09 Central Line Flush IV PUSH 10 ml Q8HR LAVERNE Administration Sodium Chloride 10 ml 03/28/24 16:14 Central Line Flush IV PUSH PRN PRN with TPN bag changes Sodium Chloride 20 ml 03/28/24 16:14 Central Line Flush IV PUSH PRN PRN after blood draws Radiology Results: ITS Impressions Chest CTA 03/27/24 06:41 Impression: No evidence of pulmonary embolus, aortic dissection, or aortic aneurysm. Extensive right lower lobe pneumonia. Probable mildly prominent reactive lymphadenopathy the right axilla and subcarinal region. Head CT 03/28/24 22:59 IMPRESSION: 1. Normal brain. Abdomen X-Ray 03/29/24 08:59 IMPRESSION: 1. Lines and tubes in expected positions. 2. Diffuse bilateral lung disease, right greater than left, consistent with multifocal pneumonia. Renal Ultrasound 03/31/24 15:34 IMPRESSION: No hydronephrosis. Perinephric fluid collection adjacent to the left lower pole. Abdomen Ultrasound 03/31/24 15:39 IMPRESSION: Status post cholecystectomy. Pancreas poorly visualized. Otherwise normal abdominal ultrasound findings. Chest X-Ray 04/04/24 07:08 Impression: Bibasilar airspace consolidation. Correlate for pulmonary edema/atelectasis versus pneumonia. Support tubes, as above. Labs Labs: Laboratory Results - last 24 hr 04/03/24 04/03/24 04/03/24 08:39 09:44 10:38 WBC RBC Hgb Hct MCV MCH MCHC RDW Plt Count MPV Puncture Site ABG pH ABG pCO2 ABG pO2 ABG PO2/FiO2 Ratio ABG HCO3 ABG O2 Saturation ABG O2 Content ABG Base Excess A-a Gradient Oxyhemoglobin Carboxyhemoglobin Methemoglobin Reduced Hemoglobin Total Hemoglobin O2 Delivery Device O2 Liters/Min Minute Volume Vent Rate Vent Mode FiO2 Tidal Volume PEEP Peak Inspir Pressure Pressure Support Sodium Potassium Chloride Carbon Dioxide Anion Gap BUN Creatinine Estim Creat Clear Calc Estimated GFR Glucose POC Capillary Glucose 240 H 251 H 235 H Calcium Phosphorus Magnesium Total Bilirubin AST ALT Alkaline Phosphatase Total Protein Albumin Triglycerides 04/03/24 04/03/24 04/03/24 11:43 12:59 13:38 WBC RBC Hgb Hct MCV MCH MCHC RDW Plt Count MPV Puncture Site ABG pH ABG pCO2 ABG pO2 ABG PO2/FiO2 Ratio ABG HCO3 ABG O2 Saturation ABG O2 Content ABG Base Excess A-a Gradient Oxyhemoglobin Carboxyhemoglobin Methemoglobin Reduced Hemoglobin Total Hemoglobin O2 Delivery Device O2 Liters/Min Minute Volume Vent Rate Vent Mode FiO2 Tidal Volume PEEP Peak Inspir Pressure Pressure Support Sodium Potassium Chloride Carbon Dioxide Anion Gap BUN Creatinine Estim Creat Clear Calc Estimated GFR Glucose POC Capillary Glucose 242 H 233 H 224 H Calcium Phosphorus Magnesium Total Bilirubin AST ALT Alkaline Phosphatase Total Protein Albumin Triglycerides 04/03/24 04/03/24 04/03/24 14:43 15:46 16:48 WBC RBC Hgb Hct MCV MCH MCHC RDW Plt Count MPV Puncture Site ABG pH ABG pCO2 ABG pO2 ABG PO2/FiO2 Ratio ABG HCO3 ABG O2 Saturation ABG O2 Content ABG Base Excess A-a Gradient Oxyhemoglobin Carboxyhemoglobin Methemoglobin Reduced Hemoglobin Total Hemoglobin O2 Delivery Device O2 Liters/Min Minute Volume Vent Rate Vent Mode FiO2 Tidal Volume PEEP Peak Inspir Pressure Pressure Support Sodium Potassium Chloride Carbon Dioxide Anion Gap BUN Creatinine Estim Creat Clear Calc Estimated GFR Glucose POC Capillary Glucose 198 H 195 H 184 H Calcium Phosphorus Magnesium Total Bilirubin AST ALT Alkaline Phosphatase Total Protein Albumin Triglycerides 04/03/24 04/03/24 04/03/24 17:53 18:51 19:46 WBC RBC Hgb Hct MCV MCH MCHC RDW Plt Count MPV Puncture Site ABG pH ABG pCO2 ABG pO2 ABG PO2/FiO2 Ratio ABG HCO3 ABG O2 Saturation ABG O2 Content ABG Base Excess A-a Gradient Oxyhemoglobin Carboxyhemoglobin Methemoglobin Reduced Hemoglobin Total Hemoglobin O2 Delivery Device O2 Liters/Min Minute Volume Vent Rate Vent Mode FiO2 Tidal Volume PEEP Peak Inspir Pressure Pressure Support Sodium Potassium Chloride Carbon Dioxide Anion Gap BUN Creatinine Estim Creat Clear Calc Estimated GFR Glucose POC Capillary Glucose 222 H 202 H 208 H Calcium Phosphorus Magnesium Total Bilirubin AST ALT Alkaline Phosphatase Total Protein Albumin Triglycerides 04/03/24 04/03/24 04/03/24 21:02 21:50 23:02 WBC RBC Hgb Hct MCV MCH MCHC RDW Plt Count MPV Puncture Site ABG pH ABG pCO2 ABG pO2 ABG PO2/FiO2 Ratio ABG HCO3 ABG O2 Saturation ABG O2 Content ABG Base Excess A-a Gradient Oxyhemoglobin Carboxyhemoglobin Methemoglobin Reduced Hemoglobin Total Hemoglobin O2 Delivery Device O2 Liters/Min Minute Volume Vent Rate Vent Mode FiO2 Tidal Volume PEEP Peak Inspir Pressure Pressure Support Sodium Potassium Chloride Carbon Dioxide Anion Gap BUN Creatinine Estim Creat Clear Calc Estimated GFR Glucose POC Capillary Glucose 215 H 215 H 221 H Calcium Phosphorus Magnesium Total Bilirubin AST ALT Alkaline Phosphatase Total Protein Albumin Triglycerides 04/03/24 04/04/24 04/04/24 23:54 00:57 02:07 WBC RBC Hgb Hct MCV MCH MCHC RDW Plt Count MPV Puncture Site ABG pH ABG pCO2 ABG pO2 ABG PO2/FiO2 Ratio ABG HCO3 ABG O2 Saturation ABG O2 Content ABG Base Excess A-a Gradient Oxyhemoglobin Carboxyhemoglobin Methemoglobin Reduced Hemoglobin Total Hemoglobin O2 Delivery Device O2 Liters/Min Minute Volume Vent Rate Vent Mode FiO2 Tidal Volume PEEP Peak Inspir Pressure Pressure Support Sodium Potassium Chloride Carbon Dioxide Anion Gap BUN Creatinine Estim Creat Clear Calc Estimated GFR Glucose POC Capillary Glucose 229 H 226 H 239 H Calcium Phosphorus Magnesium Total Bilirubin AST ALT Alkaline Phosphatase Total Protein Albumin Triglycerides 04/04/24 04/04/24 04/04/24 03:15 04:08 04:29 WBC RBC Hgb Hct MCV MCH MCHC RDW Plt Count MPV Puncture Site Right radial ABG pH 7.414 ABG pCO2 41.6 ABG pO2 84.9 ABG PO2/FiO2 Ratio 2.12 ABG HCO3 26.0 ABG O2 Saturation 96.5 ABG O2 Content 22.4 H ABG Base Excess 1.3 A-a Gradient 152.5 Oxyhemoglobin 95.4 Carboxyhemoglobin 0.6 Methemoglobin 0.1 Reduced Hemoglobin 3.9 Total Hemoglobin 16.7 O2 Delivery Device Ventilator O2 Liters/Min Not Reportable Minute Volume Not Reportable Vent Rate 24 Vent Mode Cmv FiO2 40 Tidal Volume 400 PEEP 10 Peak Inspir Pressure Not Reportable Pressure Support Not Reportable Sodium Potassium Chloride Carbon Dioxide Anion Gap BUN Creatinine Estim Creat Clear Calc Estimated GFR Glucose POC Capillary Glucose 221 H 233 H Calcium Phosphorus Magnesium Total Bilirubin AST ALT Alkaline Phosphatase Total Protein Albumin Triglycerides 04/04/24 04/04/24 04/04/24 05:06 05:12 06:13 WBC 14.2 H RBC 4.00 L Hgb 12.0 Hct 36.3 L MCV 90.8 MCH 30.0 MCHC 33.1 RDW 17.6 H Plt Count 288 MPV 10.3 Puncture Site ABG pH ABG pCO2 ABG pO2 ABG PO2/FiO2 Ratio ABG HCO3 ABG O2 Saturation ABG O2 Content ABG Base Excess A-a Gradient Oxyhemoglobin Carboxyhemoglobin Methemoglobin Reduced Hemoglobin Total Hemoglobin O2 Delivery Device O2 Liters/Min Minute Volume Vent Rate Vent Mode FiO2 Tidal Volume PEEP Peak Inspir Pressure Pressure Support Sodium 135 L Potassium 4.2 Chloride 97 L Carbon Dioxide 27 Anion Gap 11 BUN 114 H D Creatinine 3.20 H Estim Creat Clear Calc 25 Estimated GFR 14 L Glucose 226 H POC Capillary Glucose 252 H 217 H Calcium 8.5 Phosphorus 4.6 H Magnesium 2.5 H Total Bilirubin 1.0 AST 169 H ALT 975 H Alkaline Phosphatase 321 H Total Protein 6.0 L Albumin 2.9 L Triglycerides 79 04/04/24 04/04/24 06:59 08:00 WBC RBC Hgb Hct MCV MCH MCHC RDW Plt Count MPV Puncture Site ABG pH ABG pCO2 ABG pO2 ABG PO2/FiO2 Ratio ABG HCO3 ABG O2 Saturation ABG O2 Content ABG Base Excess A-a Gradient Oxyhemoglobin Carboxyhemoglobin Methemoglobin Reduced Hemoglobin Total Hemoglobin O2 Delivery Device O2 Liters/Min Minute Volume Vent Rate Vent Mode FiO2 Tidal Volume PEEP Peak Inspir Pressure Pressure Support Sodium Potassium Chloride Carbon Dioxide Anion Gap BUN Creatinine Estim Creat Clear Calc Estimated GFR Glucose POC Capillary Glucose 219 H 213 H Calcium Phosphorus Magnesium Total Bilirubin AST ALT Alkaline Phosphatase Total Protein Albumin Triglycerides Quality VTE Prophylaxis VTE prophylaxis: pharmacologic ordered
[2024-04-04 09:02] LABS: Glucose Point of Care 208 mg/dl (65-105)
[2024-04-04] MEDS: INSULIN GLARGINE (*BKC) 100 UNITS/ML 60 UNITS SUB-Q ×2 (09:05→20:29)
[2024-04-04] MEDS: CYANOCOBALAMIN 1,000 MCG TABLET 1000 MCG PO ×2 (09:05→17:39)
[2024-04-04] MEDS: MINERAL OIL/WHITE PETROLATUM OINTMENT 1 APPLIC EACH EYE ×2 (09:05→20:30)
[2024-04-04] MEDS: APIXABAN 5 MG TABLET PO ×2 (09:05→20:29)
--- NOTE | 2024-04-04 10:01 | P.PNNP_ITS ---
Progress Note: A&P Assessment and Plan (1) VINCENT (acute kidney injury): Code(s): N17.9 - Acute kidney failure, unspecified Status: Acute Assessment and Plan: * as noted by trend of labs since admission * normal creatinine at baseline and on admission * multifactorial etiology: * hemodynamic instability/shock * infection/sepsis (pneumonia + RSV) * ARB + HCTZ use prior to admission * contrast (CTA of chest on 03/27) * hypoxia * afib with RVR * prerenal factors (?) * evaluation to date noted: * renal ultrasound without hydro * urine electrolytes prerenal * urine eosinophils negative * CPK normal * initiated on SPREADER/dialysis on 04/02 * HD today * fluid removal with HD as tolerated by hemodynamics * follow trend of repeat labs and UOP to assess for renal recovery (2) Acute hypoxic respiratory failure: Code(s): J96.01 - Acute respiratory failure with hypoxia Status: Acute Assessment and Plan: * seconeary to pneumonia, RSV, and possible CHF * CTA of chest noted: * no evidence of pulmonary embolus, aortic dissection, or aortic aneurysm * extensive right lower lobe pneumonia * probable mildly prominent reactive lymphadenopathy the right axilla and subcarinal region * emergently intubated 03/28 * completed course of steroids * follow respiratory status * continue fluid removal as tolerated by hemodynamics (3) Septic shock: Code(s): A41.9 - Sepsis, unspecified organism; R65.21 - Severe sepsis with septic shock Status: Acute Assessment and Plan: * secondary to extensive pneumonia +/- RSV * on antibiotics * cultures negative to date * off pressors currently (4) Atrial fibrillation with RVR: Code(s): I48.91 - Unspecified atrial fibrillation Status: Acute Assessment and Plan: * rate control strategy * on Eliquis * Echo results noted * Cardiology following (5) Anemia: Code(s): D64.9 - Anemia, unspecified Status: Acute Assessment and Plan: * likely a manifestation of VINCENT and acute illness * no need for DANG at this time * follow trend of H/H (6) Community acquired pneumonia: Code(s): J18.9 - Pneumonia, unspecified organism Status: Acute Assessment and Plan: * as noted by admission imaging * culture data noted (negative to date) * on antibiotics (7) Elevated liver enzymes: Code(s): R74.8 - Abnormal levels of other serum enzymes Status: Acute Assessment and Plan: * thought to be secondary to shock liver * statin on hold * liver enzymes fluctuating * follow trend (8) Diabetes: Code(s): E11.9 - Type 2 diabetes mellitus without complications Status: Chronic Assessment and Plan: * follow accu-cheks * glycemic control per hospitalist/forensic medical examiner Will continue to follow. L Subjective Date/time seen: 04/04/24 10:01 Interval history: Follow-up for acute kidney injury/acute renal failure (currently requiring hemodialysis). Chart reviewed since last seen -- tolerating dialysis treatment although hemodynamics not really tolerating fluid removal; remains intubated/sedated and on mechanical ventilation; remains off vasopressors at this time; no other issues/events overnight or earlier this morning. Exam 2 Narrative: General: elderly but WD/WN female intubated/sedated and on mechanical ventilation Heart: IRRR, normal S1 and S2; no rub Lungs: coarse breath sounds; few crackles at bases Abdomen: soft, nontender, nondistended, positive bowel sounds Extremities: no cyanosis or clubbing; 1 - 2+ in UEs and LEs Skin: warm and dry Objective Data Vital Signs Vital Signs: Vital Signs Temp Pulse Resp BP Pulse Ox O2 Del Method FiO2 04/04/24 10:00 98.5 F 103 H 28 H 94/54 L 93 04/04/24 09:45 102 H 99/59 L 04/04/24 09:40 120 H 30 H 04/04/24 09:30 102 H 106/56 L 04/04/24 09:15 109 H 111/57 L 04/04/24 09:12 112 H 30 H 04/04/24 09:12 112 H 30 H 04/04/24 09:00 110 H 113/74 04/04/24 08:45 109 H 116/53 L 04/04/24 08:38 107 H 117/72 04/04/24 08:27 97.9 F 92 20 132/71 04/04/24 08:27 40 04/04/24 08:12 98 95 Mechanical Ventilation 40 04/04/24 08:02 96 30 H 04/04/24 08:02 90 30 H 04/04/24 08:00 40 04/04/24 08:00 95 Mechanical Ventilation 40 04/04/24 08:00 105 H 04/04/24 08:00 97.9 F 96 30 H 115/70 95 04/04/24 06:00 91 04/04/24 06:00 98.1 F 91 28 H 117/71 95 04/04/24 06:00 91 28 H 04/04/24 06:00 91 28 H 04/04/24 05:14 100 96 Mechanical Ventilation 40 04/04/24 05:09 97 04/04/24 04:00 98.2 F 102 H 24 H 128/73 95 04/04/24 04:00 102 H 24 H 04/04/24 04:00 102 H 24 H 04/04/24 04:00 98 04/04/24 03:36 40 04/04/24 03:31 Mechanical Ventilation 40 04/04/24 02:09 101 H 95 Mechanical Ventilation 40 04/04/24 02:00 95 04/04/24 02:00 98.2 F 95 24 H 123/78 94 04/04/24 02:00 95 24 H 04/04/24 02:00 95 24 H 04/04/24 00:00 98.0 F 93 24 H 115/65 94 04/04/24 00:00 102 H 04/04/24 00:00 40 04/04/24 00:00 Mechanical Ventilation 40 04/04/24 00:00 93 29 H 04/04/24 00:00 93 29 H 04/03/24 23:55 99 04/03/24 22:46 75 97 Mechanical Ventilation 40 04/03/24 22:00 97 04/03/24 22:00 97 29 H 04/03/24 22:00 97 29 H 04/03/24 22:00 97.7 F 97 29 H 118/81 94 04/03/24 20:00 74 04/03/24 20:00 Mechanical Ventilation 40 04/03/24 20:00 40 04/03/24 20:00 97.6 F 86 18 123/87 94 04/03/24 20:00 86 24 H 04/03/24 20:00 86 24 H 04/03/24 19:41 77 94 Mechanical Ventilation 40 04/03/24 18:00 96.8 F L 81 27 H 128/75 94 04/03/24 18:00 89 04/03/24 18:00 89 28 H 04/03/24 17:58 85 04/03/24 17:00 89 28 H 04/03/24 16:00 82 95 Mechanical Ventilation 40 04/03/24 16:00 92 04/03/24 16:00 93 Mechanical Ventilation 40 04/03/24 16:00 40 04/03/24 16:00 96.5 F L 93 31 H 117/73 93 04/03/24 16:00 92 26 H 04/03/24 16:00 94 27 H 04/03/24 14:00 96.9 F L 81 26 H 150/92 H 94 04/03/24 14:00 92 04/03/24 14:00 81 26 H 04/03/24 14:00 81 26 H 04/03/24 13:05 81 98 Mechanical Ventilation 40 Intake/Output Intake/Output: Intake & Output 04/01/24 04/02/24 04/03/24 04/04/24 23:59 23:59 23:59 23:59 Intake Total 2517.8 1573.7 2708.7 1131.4 Output Total 500 655 650 650 Balance 2017.8 918.7 2058.7 481.4 Meds/Results Medications: Active Medications Generic Name Dose Route Start Last Admin Trade Name Freq PRN Reason Stop Dose Admin Acetaminophen 650 mg 03/27/24 14:41 03/29/24 05:11 Acetaminophen 325 Mg Tablet PO 650 mg Q4H PRN Administration Mild Pain (1-3) or Fever Amiodarone HCl 400 mg 04/01/24 10:40 04/03/24 08:31 Amiodarone Hcl 200 Mg Tablet PO 400 mg DAILY LAVERNE Administration Apixaban 5 mg 03/27/24 12:35 04/04/24 09:05 Apixaban 5 Mg Tablet PO 5 mg Q12HR LAVERNE Administration Cyanocobalamin 1,000 mcg 03/27/24 17:00 04/04/24 09:05 Cyanocobalamin 1,000 Mcg Tablet PO 1,000 mcg BID LAVERNE Administration Dextrose 12.5 gm 03/27/24 08:57 Dextrose 50% 25 Gm/50 Ml Syringe IV PUSH PRN PRN Hypoglycemia Protocol Glucagon 1 mg 03/27/24 08:57 Glucagon For Inj 1 Mg Vial IM PRN PRN Hypoglycemia Protocol Glucose 15 gm 03/27/24 08:57 Glucose Oral Gel 15 Gm Of Glucse In 37.5 Gm Tube PO PRN PRN Hypoglycemia Protocol Dextrose 1,000 mls @ 100 mls/hr 03/27/24 08:57 Dextrose 5% 1,000 Ml IVPB PRN PRN Hypoglycemia Protocol Fentanyl Citrate 2,500 mcg in 250 mls @ 7.5 mls/hr 03/28/24 15:45 04/04/24 10:00 Fentanyl 2,500 Mcg/Ns 250 Ml IV CONT 75 mcg/hr .[id number] LAVERNE 7.5 mls/hr Titration Protocol 75 MCG/HR Midazolam HCl 100 mg in 100 mls @ 2 mls/hr 03/28/24 19:30 04/04/24 10:00 Versed 100 Mg/Ns 100 Ml IV CONT 2 mg/hr .Q50H LAVERNE 2 mls/hr Titration Protocol 2 MG/HR Norepinephrine Bitartrate 8 mg in 250 mls @ 13.125 mls/hr 04/02/24 14:30 04/04/24 11:30 Levophed 8 Mg/D5w 250 Ml IV CONT 7 mcg/min .[id number] LAVERNE 13.13 mls/hr Titration Protocol 7 MCG/MIN Albumin Human 50 mls @ 999 mls/hr 04/03/24 09:19 04/04/24 10:06 Albutein IVPB 05/03/24 09:18 999 mls/hr Q10M PRN Administration HYPOTENSION Cefepime HCl 2 gm in 50 mls @ 100 mls/hr 04/04/24 15:00 Maxipime 2 Gm/Ns 50 Ml IVPB 04/06/24 23:59 Q24H [facility] Insulin Aspart 4 - 8 units 03/29/24 13:00 04/04/24 12:22 Insulin Aspart (*Bkc) 100 Units/Ml SUB-Q Not Given Q4HR [facility] Protocol Insulin Glargine 60 units 04/01/24 09:00 04/04/24 09:05 Insulin Glargine (*Bkc) 100 Units/Ml SUB-Q 60 units Q12HR LAVERNE Administration Metoprolol Tartrate 25 mg 04/01/24 10:40 04/04/24 05:09 Metoprolol Tartrate 25 Mg Tablet PO 25 mg Q6HR [facility] Administration Multi-Ingred Cream/Lotion/Oil/Oint 1 applic 03/28/24 21:00 04/04/24 09:05 Mineral Oil/White Petrolatum Ointment EACH EYE 1 applic Q12HR LAVERNE Administration Pantoprazole Sodium 40 mg 03/29/24 09:00 04/03/24 08:30 Pantoprazole Sodium Iv 40 Mg Vial IV PUSH 40 mg DAILY LAVERNE Administration Polyethylene Glycol 17 gm 04/04/24 11:45 Polyethylene Glycol 3350 17 Gm Powd.Pack PO QAM LAVERNE Rosuvastatin Calcium 20 mg 03/28/24 09:00 03/31/24 09:28 Rosuvastatin 20 Mg Tablet PO Not Given DAILY LAVERNE Sodium Chloride 10 ml 03/28/24 22:00 04/04/24 05:09 Central Line Flush IV PUSH 10 ml Q8HR L[facility]ERNE Administration Sodium Chloride 10 ml 03/28/24 16:14 Central Line Flush IV PUSH PRN PRN with TPN bag changes Sodium Chloride 20 ml 03/28/24 16:14 Central Line Flush IV PUSH PRN PRN after blood draws Radiology Results: ITS Impressions Chest CTA 03/27/24 06:41 Impression: No evidence of pulmonary embolus, aortic dissection, or aortic aneurysm. Extensive right lower lobe pneumonia. Probable mildly prominent reactive lymphadenopathy the right axilla and subcarinal region. Head CT 03/28/24 22:59 IMPRESSION: 1. Normal brain. Abdomen X-Ray 03/29/24 08:59 IMPRESSION: 1. Lines and tubes in expected positions. 2. Diffuse bilateral lung disease, right greater than left, consistent with multifocal pneumonia. Renal Ultrasound 03/31/24 15:34 IMPRESSION: No hydronephrosis. Perinephric fluid collection adjacent to the left lower pole. Abdomen Ultrasound 03/31/24 15:39 IMPRESSION: Status post cholecystectomy. Pancreas poorly visualized. Otherwise normal abdominal ultrasound findings. Chest X-Ray 04/04/24 07:08 Impression: Bibasilar airspace consolidation. Correlate for pulmonary edema/atelectasis versus pneumonia. Support tubes, as above. Labs Labs: Laboratory Tests 04/04/24 05:12 04/04/24 05:12 Calcium 8.5 Phosphorus 4.6 H Magnesium 2.5 H Total Bilirubin 1.0 AST 169 H ALT 975 H Alkaline Phosphatase 321 H Total Protein 6.0 L Albumin 2.9 L Triglycerides 79
[2024-04-04] MEDS: ALBUMIN HUMAN 25% 12.5 GM/50ML 50 ML IVPB (10:06)
[2024-04-04 10:11] LABS: Glucose Point of Care 179 mg/dl (65-105)
[2024-04-04] MEDS: NOREPINEPHRINE 8 MG/D5W 250 ML 8 MG/250 ML BAG 9.38 MG IV CONT (10:37)
--- NOTE | 2024-04-04 10:58 | PCFNICU ---
ICU Rounding Note: Pt current nutrition is Vital AF 1.2 at 60 ml/hr. Last recorded weight is 159.3 kg, up from 148.9 kg on admit. Bowel Motility: No BM since 03/26-discussed with nursing today. Labs Reviewed: Mg 2.5, Glu 226, BUN 114, GFR 14, Cr 3.2, Na 135, Alb 2.9 Meds Noted: Fentanyl, Versed,Levophed, Lantus, NovoLog Skin: WNL Additional Notes: Patient remains on mechanicanl vent. Dialysis planned again today. Tube feedings are being tolerated of Vital AF 1.2 at 60 ml/hr. Flush 30 ml q 4 hours. Agree with diet orders. Following daily in ICU rounds. Will monitor weight, labs, skin, diet orders, meds, tube feeding tolerance every Thursday and Thursday.
[2024-04-04 11:22] LABS: Glucose Point of Care 169 mg/dl (65-105)
[2024-04-04 12:13] LABS: Glucose Point of Care 157 mg/dl (65-105)
[2024-04-04] MEDS: polyethylene glycoL 3350 17 GM POWD.PACK PO (13:21)
[2024-04-04] MEDS: PANTOPRAZOLE SODIUM IV 40 MG VIAL IV PUSH (13:22)
[2024-04-04] MEDS: CEFEPIME 2 GM/NS 50 ML 2 GM/50 ML BAG IVPB (14:41)
--- NOTE | 2024-04-04 15:59 | WPDGIPROGNO ---
Progress Note: A&P Assessment and Plan (1) Ischemic hepatitis: Code(s): K72.00 - Acute and subacute hepatic failure without coma Status: Acute Assessment and Plan: patient's liver enzyme elevation was discussed yesterday, more likely due to the episodes of hypertension, now corrected. She is not needing vasopressors. However, there was a question of preexistent chronic liver disease due to her phenotype and diabetes. Will sign off for now, and if the patient is more stable from her current acute critical problems, will have to evaluate her as an outpatient to determine if there is evidence of metabolic associated steatotic liver disease. Time Spent With Patient Time with patient: less than 15 minutes Subjective Date/time seen: 04/04/24 15:59 Interval history: Patient continues intubated and will get hemodialysis for ongoing renal failure. Blood pressure has remained stable off vasopressors. Transaminases with clear tendency to improve after hemodynamic stabilization. Objective Data Vital Signs Vital Signs: Vital Signs - 24 hr 04/03/24 16:00 04/03/24 16:00 04/03/24 16:00 Temperature 96.5 F L Pulse Rate 94 92 93 Respiratory Rate 27 H 26 H 31 H Blood Pressure 117/73 Pulse Oximetry 93 Oxygen Delivery Fraction of Inspired Oxygen 04/03/24 16:00 04/03/24 16:00 04/03/24 16:00 Temperature Pulse Rate 92 Respiratory Rate Blood Pressure Pulse Oximetry 93 Oxygen Delivery Mechanical Ventilation Fraction of Inspired Oxygen 40 40 04/03/24 16:00 04/03/24 17:00 04/03/24 17:58 Temperature Pulse Rate 82 89 85 Respiratory Rate 28 H Blood Pressure Pulse Oximetry 95 Oxygen Delivery Mechanical Ventilation Fraction of Inspired Oxygen 40 04/03/24 18:00 04/03/24 18:00 04/03/24 18:00 Temperature 96.8 F L Pulse Rate 89 89 81 Respiratory Rate 28 H 27 H Blood Pressure 128/75 Pulse Oximetry 94 Oxygen Delivery Fraction of Inspired Oxygen 04/03/24 19:41 04/03/24 20:00 04/03/24 20:00 Temperature Pulse Rate 77 86 86 Respiratory Rate 24 H 24 H Blood Pressure Pulse Oximetry 94 Oxygen Delivery Mechanical Ventilation Fraction of Inspired Oxygen 40 04/03/24 20:00 04/03/24 20:00 04/03/24 20:00 Temperature 97.6 F Pulse Rate 86 Respiratory Rate 18 Blood Pressure 123/87 Pulse Oximetry 94 Oxygen Delivery Mechanical Ventilation Fraction of Inspired Oxygen 40 40 04/03/24 20:00 04/03/24 22:00 04/03/24 22:00 Temperature 97.7 F Pulse Rate 74 97 97 Respiratory Rate 29 H 29 H Blood Pressure 118/81 Pulse Oximetry 94 Oxygen Delivery Fraction of Inspired Oxygen 04/03/24 22:00 04/03/24 22:00 04/03/24 22:46 Temperature Pulse Rate 97 97 75 Respiratory Rate 29 H Blood Pressure Pulse Oximetry 97 Oxygen Delivery Mechanical Ventilation Fraction of Inspired Oxygen 40 04/03/24 23:55 04/04/24 00:00 04/04/24 00:00 Temperature Pulse Rate 99 93 93 Respiratory Rate 29 H 29 H Blood Pressure Pulse Oximetry Oxygen Delivery Fraction of Inspired Oxygen 04/04/24 00:00 04/04/24 00:00 04/04/24 00:00 Temperature Pulse Rate 102 H Respiratory Rate Blood Pressure Pulse Oximetry Oxygen Delivery Mechanical Ventilation Fraction of Inspired Oxygen 40 40 04/04/24 00:00 04/04/24 02:00 04/04/24 02:00 Temperature 98.0 F Pulse Rate 93 95 95 Respiratory Rate 24 H 24 H 24 H Blood Pressure 115/65 Pulse Oximetry 94 Oxygen Delivery Fraction of Inspired Oxygen 04/04/24 02:00 04/04/24 02:00 04/04/24 02:09 Temperature 98.2 F Pulse Rate 95 95 101 H Respiratory Rate 24 H Blood Pressure 123/78 Pulse Oximetry 94 95 Oxygen Delivery Mechanical Ventilation Fraction of Inspired Oxygen 40 04/04/24 03:31 04/04/24 03:36 04/04/24 04:00 Temperature Pulse Rate 98 Respiratory Rate Blood Pressure Pulse Oximetry Oxygen Delivery Mechanical Ventilation Fraction of Inspired Oxygen 40 40 04/04/24 04:00 04/04/24 04:00 04/04/24 04:00 Temperature 98.2 F Pulse Rate 102 H 102 H 102 H Respiratory Rate 24 H 24 H 24 H Blood Pressure 128/73 Pulse Oximetry 95 Oxygen Delivery Fraction of Inspired Oxygen 04/04/24 05:09 04/04/24 05:14 04/04/24 06:00 Temperature Pulse Rate 97 100 91 Respiratory Rate 28 H Blood Pressure Pulse Oximetry 96 Oxygen Delivery Mechanical Ventilation Fraction of Inspired Oxygen 40 04/04/24 06:00 04/04/24 06:00 04/04/24 06:00 Temperature 98.1 F Pulse Rate 91 91 91 Respiratory Rate 28 H 28 H Blood Pressure 117/71 Pulse Oximetry 95 Oxygen Delivery Fraction of Inspired Oxygen 04/04/24 08:00 04/04/24 08:00 04/04/24 08:00 Temperature 97.9 F Pulse Rate 96 105 H Respiratory Rate 30 H Blood Pressure 115/70 Pulse Oximetry 95 95 Oxygen Delivery Mechanical Ventilation Fraction of Inspired Oxygen 40 04/04/24 08:00 04/04/24 08:02 04/04/24 08:02 Temperature Pulse Rate 90 96 Respiratory Rate 30 H 30 H Blood Pressure Pulse Oximetry Oxygen Delivery Fraction of Inspired Oxygen 40 04/04/24 08:12 04/04/24 08:27 04/04/24 08:27 Temperature 97.9 F Pulse Rate 98 92 Respiratory Rate 20 Blood Pressure 132/71 Pulse Oximetry 95 Oxygen Delivery Mechanical Ventilation Fraction of Inspired Oxygen 40 40 04/04/24 08:38 04/04/24 08:45 04/04/24 09:00 Temperature Pulse Rate 107 H 109 H 110 H Respiratory Rate Blood Pressure 117/72 116/53 L 113/74 Pulse Oximetry Oxygen Delivery Fraction of Inspired Oxygen 04/04/24 09:12 04/04/24 09:12 04/04/24 09:15 Temperature Pulse Rate 112 H 112 H 109 H Respiratory Rate 30 H 30 H Blood Pressure 111/57 L Pulse Oximetry Oxygen Delivery Fraction of Inspired Oxygen 04/04/24 09:30 04/04/24 09:40 04/04/24 09:45 Temperature Pulse Rate 102 H 120 H 102 H Respiratory Rate 30 H Blood Pressure 106/56 L 99/59 L Pulse Oximetry Oxygen Delivery Fraction of Inspired Oxygen 04/04/24 10:00 04/04/24 10:00 04/04/24 10:00 Temperature 98.5 F Pulse Rate 103 H 103 H 103 H Respiratory Rate 28 H 28 H 28 H Blood Pressure 94/54 L Pulse Oximetry 93 Oxygen Delivery Fraction of Inspired Oxygen 04/04/24 10:00 04/04/24 10:00 04/04/24 10:15 Temperature Pulse Rate 103 H 94 101 H Respiratory Rate Blood Pressure 94/54 L 95/77 L Pulse Oximetry Oxygen Delivery Fraction of Inspired Oxygen 04/04/24 10:30 04/04/24 10:37 04/04/24 10:43 Temperature Pulse Rate 101 H 109 H 100 Respiratory Rate Blood Pressure 88/59 L 77/50 L Pulse Oximetry 92 Oxygen Delivery Mechanical Ventilation Fraction of Inspired Oxygen 40 04/04/24 10:45 04/04/24 11:00 04/04/24 11:15 Temperature Pulse Rate 100 95 98 Respiratory Rate Blood Pressure 85/50 L 91/46 L 93/61 L Pulse Oximetry Oxygen Delivery Fraction of Inspired Oxygen 04/04/24 11:30 04/04/24 11:30 04/04/24 11:45 Temperature Pulse Rate 92 86 91 Respiratory Rate Blood Pressure 91/52 L 91/52 L 86/60 L Pulse Oximetry Oxygen Delivery Fraction of Inspired Oxygen 04/04/24 12:00 04/04/24 12:00 04/04/24 12:00 Temperature 98.5 F Pulse Rate 96 98 89 Respiratory Rate 16 Blood Pressure 91/66 L 91/66 L Pulse Oximetry 96 Oxygen Delivery Fraction of Inspired Oxygen 04/04/24 12:00 04/04/24 12:00 04/04/24 12:00 Temperature Pulse Rate 89 89 89 Respiratory Rate 28 H 28 H Blood Pressure 91/66 L Pulse Oximetry Oxygen Delivery Fraction of Inspired Oxygen 04/04/24 12:00 04/04/24 12:00 04/04/24 13:00 Temperature Pulse Rate 82 Respiratory Rate Blood Pressure 117/83 Pulse Oximetry 96 Oxygen Delivery Mechanical Ventilation Fraction of Inspired Oxygen 40 40 04/04/24 13:22 04/04/24 13:30 04/04/24 13:31 Temperature Pulse Rate 86 97 86 Respiratory Rate Blood Pressure 125/81 136/81 Pulse Oximetry 86 L Oxygen Delivery Mechanical Ventilation Fraction of Inspired Oxygen 40 04/04/24 13:46 04/04/24 14:00 04/04/24 14:00 Temperature Pulse Rate 98 88 88 Respiratory Rate 29 H 29 H Blood Pressure 147/80 H Pulse Oximetry Oxygen Delivery Fraction of Inspired Oxygen 04/04/24 14:00 04/04/24 14:00 04/04/24 14:04 Temperature 98 F Pulse Rate 88 88 86 Respiratory Rate 29 H Blood Pressure 145/75 H 147/75 H Pulse Oximetry 96 Oxygen Delivery Fraction of Inspired Oxygen 04/04/24 14:30 04/04/24 14:49 Temperature Pulse Rate 93 89 Respiratory Rate Blood Pressure 135/79 121/78 Pulse Oximetry Oxygen Delivery Fraction of Inspired Oxygen Intake/Output Intake/Output: Intake & Output 04/01/24 04/02/24 04/03/24 04/04/24 23:59 23:59 23:59 23:59 Intake Total 2517.8 1573.7 2708.7 1250.4 Output Total 500 655 650 650 Balance 2017.8 918.7 2058.7 600.4 Meds/Results Medications: Active Medications Generic Name Dose Route Start Last Admin Trade Name Freq PRN Reason Stop Dose Admin Acetaminophen 650 mg 03/27/24 14:41 03/29/24 05:11 Acetaminophen 325 Mg Tablet PO 650 mg Q4H PRN Administration Mild Pain (1-3) or Fever Amiodarone HCl 400 mg 04/01/24 10:40 04/03/24 08:31 Amiodarone Hcl 200 Mg Tablet PO 400 mg DAILY [facility] Administration Apixaban 5 mg 03/27/24 12:35 04/04/24 09:05 Apixaban 5 Mg Tablet PO 5 mg Q12HR [facility] Administration Cyanocobalamin 1,000 mcg 03/27/24 17:00 04/04/24 09:05 Cyanocobalamin 1,000 Mcg Tablet PO 1,000 mcg BID [facility] Administration Dextrose 12.5 gm 03/27/24 08:57 Dextrose 50% 25 Gm/50 Ml Syringe IV PUSH PRN PRN Hypoglycemia Protocol Glucagon 1 mg 03/27/24 08:57 Glucagon For Inj 1 Mg Vial IM PRN PRN Hypoglycemia Protocol Glucose 15 gm 03/27/24 08:57 Glucose Oral Gel 15 Gm Of Glucse In 37.5 Gm Tube PO PRN PRN Hypoglycemia Protocol Dextrose 1,000 mls @ 100 mls/hr 03/27/24 08:57 Dextrose 5% 1,000 Ml IVPB PRN PRN Hypoglycemia Protocol Fentanyl Citrate 2,500 mcg in 250 mls @ 7.5 mls/hr 03/28/24 15:45 04/04/24 14:00 Fentanyl 2,500 Mcg/Ns 250 Ml IV CONT 75 mcg/hr .[id number] L[facility] 7.5 mls/hr Titration Protocol 75 MCG/HR Midazolam HCl 100 mg in 100 mls @ 2 mls/hr 03/28/24 19:30 04/04/24 14:00 Versed 100 Mg/Ns 100 Ml IV CONT 2 mg/hr .Q50H [facility] 2 mls/hr Titration Protocol 2 MG/HR Norepinephrine Bitartrate 8 mg in 250 mls @ 1.875 mls/hr 04/02/24 14:30 04/04/24 14:49 Levophed 8 Mg/D5w 250 Ml IV CONT 0 mcg/min .Q24H [facility] 0 mls/hr Titration Protocol 1 MCG/MIN Albumin Human 50 mls @ 999 mls/hr 04/03/24 09:19 04/04/24 10:06 Albutein IVPB 05/03/24 09:18 999 mls/hr Q10M PRN Administration HYPOTENSION Cefepime HCl 2 gm in 50 mls @ 100 mls/hr 04/04/24 15:00 04/04/24 15:16 Maxipime 2 Gm/Ns 50 Ml IVPB 04/06/24 23:59 Infused Q24H [facility] Infusion Insulin Aspart 4 - 8 units 03/29/24 13:00 04/04/24 12:22 Insulin Aspart (*Bkc) 100 Units/Ml SUB-Q Not Given Q4HR [facility] Protocol Insulin Glargine 60 units 04/01/24 09:00 04/04/24 09:05 Insulin Glargine (*Bkc) 100 Units/Ml SUB-Q 60 units Q12HR [facility] Administration Metoprolol Tartrate 25 mg 04/01/24 10:40 04/04/24 15:26 Metoprolol Tartrate 25 Mg Tablet PO Not Given Q6HR [facility] Multi-Ingred Cream/Lotion/Oil/Oint 1 applic 03/28/24 21:00 04/04/24 09:05 Mineral Oil/White Petrolatum Ointment EACH EYE 1 applic Q12HR [facility] Administration Pantoprazole Sodium 40 mg 03/29/24 09:00 04/04/24 13:22 Pantoprazole Sodium Iv 40 Mg Vial IV PUSH 40 mg DAILY [facility] Administration Polyethylene Glycol 17 gm 04/04/24 11:45 04/04/24 13:21 Polyethylene Glycol 3350 17 Gm Powd.Pack PO 17 gm QAM [facility] Administration Rosuvastatin Calcium 20 mg 03/28/24 09:00 03/31/24 09:28 Rosuvastatin 20 Mg Tablet PO Not Given DAILY [facility] Sodium Chloride 10 ml 03/28/24 22:00 04/04/24 14:45 Central Line Flush IV PUSH 10 ml Q8HR [facility] Administration Sodium Chloride 10 ml 03/28/24 16:14 Central Line Flush IV PUSH PRN PRN with TPN bag changes Sodium Chloride 20 ml 03/28/24 16:14 Central Line Flush IV PUSH PRN PRN after blood draws Radiology Results: ITS Impressions Chest CTA 03/27/24 06:41 Impression: No evidence of pulmonary embolus, aortic dissection, or aortic aneurysm. Extensive right lower lobe pneumonia. Probable mildly prominent reactive lymphadenopathy the right axilla and subcarinal region. Head CT 03/28/24 22:59 IMPRESSION: 1. Normal brain. Abdomen X-Ray 03/29/24 08:59 IMPRESSION: 1. Lines and tubes in expected positions. 2. Diffuse bilateral lung disease, right greater than left, consistent with multifocal pneumonia. Renal Ultrasound 03/31/24 15:34 IMPRESSION: No hydronephrosis. Perinephric fluid collection adjacent to the left lower pole. Abdomen Ultrasound 03/31/24 15:39 IMPRESSION: Status post cholecystectomy. Pancreas poorly visualized. Otherwise normal abdominal ultrasound findings. Chest X-Ray 04/04/24 07:08 Impression: Bibasilar airspace consolidation. Correlate for pulmonary edema/atelectasis versus pneumonia. Support tubes, as above. Labs Labs: Laboratory Results - last 24 hr 04/03/24 04/03/24 04/03/24 16:48 17:53 18:51 WBC RBC Hgb Hct MCV MCH MCHC RDW Plt Count MPV Puncture Site ABG pH ABG pCO2 ABG pO2 ABG PO2/FiO2 Ratio ABG HCO3 ABG O2 Saturation ABG O2 Content ABG Base Excess A-a Gradient Oxyhemoglobin Carboxyhemoglobin Methemoglobin Reduced Hemoglobin Total Hemoglobin O2 Delivery Device O2 Liters/Min Minute Volume Vent Rate Vent Mode FiO2 Tidal Volume PEEP Peak Inspir Pressure Pressure Support Sodium Potassium Chloride Carbon Dioxide Anion Gap BUN Creatinine Estim Creat Clear Calc Estimated GFR Glucose POC Capillary Glucose 184 H 222 H 202 H Calcium Phosphorus Magnesium Total Bilirubin AST ALT Alkaline Phosphatase Total Protein Albumin Triglycerides 04/03/24 04/03/24 04/03/24 19:46 21:02 21:50 WBC RBC Hgb Hct MCV MCH MCHC RDW Plt Count MPV Puncture Site ABG pH ABG pCO2 ABG pO2 ABG PO2/FiO2 Ratio ABG HCO3 ABG O2 Saturation ABG O2 Content ABG Base Excess A-a Gradient Oxyhemoglobin Carboxyhemoglobin Methemoglobin Reduced Hemoglobin Total Hemoglobin O2 Delivery Device O2 Liters/Min Minute Volume Vent Rate Vent Mode FiO2 Tidal Volume PEEP Peak Inspir Pressure Pressure Support Sodium Potassium Chloride Carbon Dioxide Anion Gap BUN Creatinine Estim Creat Clear Calc Estimated GFR Glucose POC Capillary Glucose 208 H 215 H 215 H Calcium Phosphorus Magnesium Total Bilirubin AST ALT Alkaline Phosphatase Total Protein Albumin Triglycerides 04/03/24 04/03/24 04/04/24 23:02 23:54 00:57 WBC RBC Hgb Hct MCV MCH MCHC RDW Plt Count MPV Puncture Site ABG pH ABG pCO2 ABG pO2 ABG PO2/FiO2 Ratio ABG HCO3 ABG O2 Saturation ABG O2 Content ABG Base Excess A-a Gradient Oxyhemoglobin Carboxyhemoglobin Methemoglobin Reduced Hemoglobin Total Hemoglobin O2 Delivery Device O2 Liters/Min Minute Volume Vent Rate Vent Mode FiO2 Tidal Volume PEEP Peak Inspir Pressure Pressure Support Sodium Potassium Chloride Carbon Dioxide Anion Gap BUN Creatinine Estim Creat Clear Calc Estimated GFR Glucose POC Capillary Glucose 221 H 229 H 226 H Calcium Phosphorus Magnesium Total Bilirubin AST ALT Alkaline Phosphatase Total Protein Albumin Triglycerides 04/04/24 04/04/24 04/04/24 02:07 03:15 04:08 WBC RBC Hgb Hct MCV MCH MCHC RDW Plt Count MPV Puncture Site ABG pH ABG pCO2 ABG pO2 ABG PO2/FiO2 Ratio ABG HCO3 ABG O2 Saturation ABG O2 Content ABG Base Excess A-a Gradient Oxyhemoglobin Carboxyhemoglobin Methemoglobin Reduced Hemoglobin Total Hemoglobin O2 Delivery Device O2 Liters/Min Minute Volume Vent Rate Vent Mode FiO2 Tidal Volume PEEP Peak Inspir Pressure Pressure Support Sodium Potassium Chloride Carbon Dioxide Anion Gap BUN Creatinine Estim Creat Clear Calc Estimated GFR Glucose POC Capillary Glucose 239 H 221 H 233 H Calcium Phosphorus Magnesium Total Bilirubin AST ALT Alkaline Phosphatase Total Protein Albumin Triglycerides 04/04/24 04/04/24 04/04/24 04:29 05:06 05:12 WBC 14.2 H RBC 4.00 L Hgb 12.0 Hct 36.3 L MCV 90.8 MCH 30.0 MCHC 33.1 RDW 17.6 H Plt Count 288 MPV 10.3 Puncture Site Right radial ABG pH 7.414 ABG pCO2 41.6 ABG pO2 84.9 ABG PO2/FiO2 Ratio 2.12 ABG HCO3 26.0 ABG O2 Saturation 96.5 ABG O2 Content 22.4 H ABG Base Excess 1.3 A-a Gradient 152.5 Oxyhemoglobin 95.4 Carboxyhemoglobin 0.6 Methemoglobin 0.1 Reduced Hemoglobin 3.9 Total Hemoglobin 16.7 O2 Delivery Device Ventilator O2 Liters/Min Not Reportable Minute Volume Not Reportable Vent Rate 24 Vent Mode Cmv FiO2 40 Tidal Volume 400 PEEP 10 Peak Inspir Pressure Not Reportable Pressure Support Not Reportable Sodium 135 L Potassium 4.2 Chloride 97 L Carbon Dioxide 27 Anion Gap 11 BUN 114 H D Creatinine 3.20 H Estim Creat Clear Calc 25 Estimated GFR 14 L Glucose 226 H POC Capillary Glucose 252 H Calcium 8.5 Phosphorus 4.6 H Magnesium 2.5 H Total Bilirubin 1.0 AST 169 H ALT 975 H Alkaline Phosphatase 321 H Total Protein 6.0 L Albumin 2.9 L Triglycerides 79 04/04/24 04/04/24 04/04/24 06:13 06:59 08:00 WBC RBC Hgb Hct MCV MCH MCHC RDW Plt Count MPV Puncture Site ABG pH ABG pCO2 ABG pO2 ABG PO2/FiO2 Ratio ABG HCO3 ABG O2 Saturation ABG O2 Content ABG Base Excess A-a Gradient Oxyhemoglobin Carboxyhemoglobin Methemoglobin Reduced Hemoglobin Total Hemoglobin O2 Delivery Device O2 Liters/Min Minute Volume Vent Rate Vent Mode FiO2 Tidal Volume PEEP Peak Inspir Pressure Pressure Support Sodium Potassium Chloride Carbon Dioxide Anion Gap BUN Creatinine Estim Creat Clear Calc Estimated GFR Glucose POC Capillary Glucose 217 H 219 H 213 H Calcium Phosphorus Magnesium Total Bilirubin AST ALT Alkaline Phosphatase Total Protein Albumin Triglycerides 04/04/24 04/04/24 04/04/24 09:00 10:09 11:16 WBC RBC Hgb Hct MCV MCH MCHC RDW Plt Count MPV Puncture Site ABG pH ABG pCO2 ABG pO2 ABG PO2/FiO2 Ratio ABG HCO3 ABG O2 Saturation ABG O2 Content ABG Base Excess A-a Gradient Oxyhemoglobin Carboxyhemoglobin Methemoglobin Reduced Hemoglobin Total Hemoglobin O2 Delivery Device O2 Liters/Min Minute Volume Vent Rate Vent Mode FiO2 Tidal Volume PEEP Peak Inspir Pressure Pressure Support Sodium Potassium Chloride Carbon Dioxide Anion Gap BUN Creatinine Estim Creat Clear Calc Estimated GFR Glucose POC Capillary Glucose 208 H 179 H 169 H Calcium Phosphorus Magnesium Total Bilirubin AST ALT Alkaline Phosphatase Total Protein Albumin Triglycerides 04/04/24 12:11 WBC RBC Hgb Hct MCV MCH MCHC RDW Plt Count MPV Puncture Site ABG pH ABG pCO2 ABG pO2 ABG PO2/FiO2 Ratio ABG HCO3 ABG O2 Saturation ABG O2 Content ABG Base Excess A-a Gradient Oxyhemoglobin Carboxyhemoglobin Methemoglobin Reduced Hemoglobin Total Hemoglobin O2 Delivery Device O2 Liters/Min Minute Volume Vent Rate Vent Mode FiO2 Tidal Volume PEEP Peak Inspir Pressure Pressure Support Sodium Potassium Chloride Carbon Dioxide Anion Gap BUN Creatinine Estim Creat Clear Calc Estimated GFR Glucose POC Capillary Glucose 157 H Calcium Phosphorus Magnesium Total Bilirubin AST ALT Alkaline Phosphatase Total Protein Albumin Triglycerides
[2024-04-04 16:13] LABS: Glucose Point of Care 178 mg/dl (65-105)
[2024-04-04] MEDS: INSULIN ASPART (*BKC) 100 UNITS/ML SUB-Q (20:29)
[2024-04-04 20:30] LABS: Glucose Point of Care 231 mg/dl (65-105)
[2024-04-05] VITALS (30 sets, daily range): BP systolic 103–133; BP diastolic 59–77; PULSE 77–112; RESP 20–28; TEMP 36.6–37; O2SAT 94–96
[2024-04-05] MEDS: METOPROLOL TARTRATE 25 MG TABLET PO ×4 (00:18→17:17)
[2024-04-05 00:29] LABS: Glucose Point of Care 193 mg/dl (65-105)
[2024-04-05 04:33] LABS: Glucose Point of Care 201 mg/dl (65-105)
[2024-04-05] MEDS: INSULIN ASPART (*BKC) 100 UNITS/ML SUB-Q (04:33)
[2024-04-05 05:16] LABS: Alveolar/Arterial O2 Gradient 111.2 mmHg; Arterial Blood Gas PEEP 10 cmH2O; Arterial Blood Gas Tidal Volume 400 ml; Arterial Blood Gas Vent Mode CMV; Arterial Blood Gas Ventilator rate 24 /MIN; Base Excess ABG 5.1 mEq/l (+/-2.0); Carboxyhemoglobin 0.6 % THb (0-2.0); Device VENTILATOR; Fractional Inspired Oxygen 35 %; HCO3 ABG 30.2 mEq/l (22.0-26.0); Methemoglobin ABG 0.3 %THb (0-1.5); Modified Allen's Test Unable to perform; Oxygen Content ABG 15.9 %vol (16.0-22.0); Oxygen Saturation ABG 96.5 % (95.0-100.0); Oxyhemoglobin 95.6 % THb (90.0-100.0); PCO2 ABG 46.5 mmHg (35.0-45.0); PO2 ABG 84.3 mmHg (80.0-100.0); PO2 FiO2 Ratio Arterial Blood 2.41 %; Reduced Hemoglobin 3.5 %THb (0-5.0); Site Drawn RIGHT RADIAL; Total Hemoglobin 11.8 g/dL (12.0-18.0)
[2024-04-05 05:50] LABS: Hemoglobin 11.1 g/dL (12.0-15.0); Mean Corpuscular HGB Conc 33.6 g/dl (32-36); Mean Corpuscular Hemoglobin 30.7 pg (26-34); Mean Corpuscular Volume 91.4 fl (80-100); Mean Platelet Volume 10.2 fl (7.4-10.4); Platelet Count Result 247 k/mm3 (150-375); Red Blood Count 3.61 M/mm3 (4.2-5.4); Red Cell Distribution Width 17.5 % (11.5-14.5); White Blood Count 14.5 K/mm3 (4.5-10.0)
[2024-04-05] MEDS: CENTRAL LINE FLUSH 10 ML IV PUSH ×3 (05:54→21:13)
[2024-04-05 06:08] LABS: Alanine Aminotransferase 565 U/L (6-35); Albumin Level 2.8 g/dL (3.5-5.1); Alkaline Phosphatase 224 U/L (38-126); Anion Gap 9 mmol/L (4-12); Aspartate Amino Transferase 63 U/L (14-36); Bilirubin,Total 0.9 mg/dL (0.2-1.3); Blood Urea Nitrogen 93 mg/dL (7-17); Calcium 8.1 mg/dL (8.4-10.2); Carbon Dioxide 31 mmol/L (22-30); Chloride 97 mmol/L (98-107); Estimated CRCL calculation 30 ml/min; Estimated Glomerular Filt Rate 18; Glucose 177 mg/dL (65-110); Magnesium 2.4 mg/dL (1.6-2.3); Potassium 4.4 mmol/L (3.4-5.0); Sodium 137 mmol/L (137-145)
[2024-04-05] MEDS: BUMETANIDE INJ 1 MG/4 ML VIAL 2 MG IV PUSH ×2 (07:53→20:59)
[2024-04-05] MEDS: APIXABAN 5 MG TABLET PO ×2 (07:54→20:58)
[2024-04-05] MEDS: CYANOCOBALAMIN 1,000 MCG TABLET 1000 MCG PO ×2 (07:54→17:17)
[2024-04-05] MEDS: PANTOPRAZOLE SODIUM IV 40 MG VIAL IV PUSH (07:56)
[2024-04-05] MEDS: polyethylene glycoL 3350 17 GM POWD.PACK PO (07:56)
[2024-04-05] MEDS: MINERAL OIL/WHITE PETROLATUM OINTMENT 1 APPLIC EACH EYE ×2 (08:00→21:12)
[2024-04-05] MEDS: INSULIN GLARGINE (*BKC) 100 UNITS/ML 60 UNITS SUB-Q ×2 (08:07→20:57)
[2024-04-05 08:18] LABS: Glucose Point of Care 148 mg/dl (65-105)
[2024-04-05] MEDS: FENTANYL 2,500MCG/NS250ML(*CRX 2,500 MCG/250 ML BAG 7.5 MCG IV CONT (09:35)
--- NOTE | 2024-04-05 09:45 | P.PNNP_ITS ---
Progress Note: A&P Assessment and Plan (1) VINCENT (acute kidney injury): Code(s): N17.9 - Acute kidney failure, unspecified Status: Acute Assessment and Plan: * as noted by trend of labs since admission * normal creatinine at baseline and on admission * multifactorial etiology: * hemodynamic instability/shock * infection/sepsis (pneumonia + RSV) * ARB + HCTZ use prior to admission * contrast (CTA of chest on 03/27) * hypoxia * afib with RVR * prerenal factors (?) * evaluation to date noted: * renal ultrasound without hydro * urine electrolytes prerenal * urine eosinophils negative * CPK normal * initiated on [employer]/dialysis on 04/02 * HD yesterday with poor tolerance * better urine output in the last 24 hours * trial of IV diuretics today * possible dialysis tomorrow * follow trend of repeat labs and UOP to assess for renal recovery (2) Acute hypoxic respiratory failure: Code(s): J96.01 - Acute respiratory failure with hypoxia Status: Acute Assessment and Plan: * seconeary to pneumonia, RSV, and possible CHF * CTA of chest noted: * no evidence of pulmonary embolus, aortic dissection, or aortic aneurysm * extensive right lower lobe pneumonia * probable mildly prominent reactive lymphadenopathy the right axilla and subcarinal region * emergently intubated 03/28 * completed course of steroids * follow respiratory status * continue fluid removal as tolerated by hemodynamics (3) Septic shock: Code(s): A41.9 - Sepsis, unspecified organism; R65.21 - Severe sepsis with septic shock Status: Acute Assessment and Plan: * secondary to extensive pneumonia +/- RSV * on antibiotics * cultures negative to date * off pressors currently (4) Atrial fibrillation with RVR: Code(s): I48.91 - Unspecified atrial fibrillation Status: Acute Assessment and Plan: * rate control strategy * on Eliquis * Echo results noted * Cardiology following (5) Anemia: Code(s): D64.9 - Anemia, unspecified Status: Acute Assessment and Plan: * likely a manifestation of VINCENT and acute illness * no need for DANG at this time * follow trend of H/H (6) Community acquired pneumonia: Code(s): J18.9 - Pneumonia, unspecified organism Status: Acute Assessment and Plan: * as noted by admission imaging * culture data noted (negative to date) * on antibiotics (7) Elevated liver enzymes: Code(s): R74.8 - Abnormal levels of other serum enzymes Status: Acute Assessment and Plan: * thought to be secondary to shock liver * statin on hold * liver enzymes fluctuating * follow trend (8) Diabetes: Code(s): E11.9 - Type 2 diabetes mellitus without complications Status: Chronic Assessment and Plan: * follow accu-cheks * glycemic control per hospitalist/tire setter Case discussed with Dr. Hill. Will continue to follow. L Subjective Date/time seen: 04/05/24 09:45 Interval history: Follow-up for acute kidney injury/acute renal failure (currently requiring hemodialysis). Dialysis treatment yesterday but fluid removal was limited by hypotension and did not tolerated the treatment very well; required vasopressor therapy which was eventually weaned off once dialysis treatment was completed; better urine output in the last 24 hours; remains intubated/sedated and on mechanical ventilation. Exam 2 Narrative: General: elderly but WD/WN female intubated/sedated and on mechanical ventilation Heart: IRRR, normal S1 and S2; no rub Lungs: coarse breath sounds; few crackles at bases Abdomen: soft, nontender, nondistended, positive bowel sounds Extremities: no cyanosis or clubbing; 1 - 2+ in UEs and LEs Skin: warm and intact Objective Data Vital Signs Vital Signs: Vital Signs Temp Pulse Resp BP Pulse Ox O2 Del Method FiO2 04/05/24 09:35 87 28 H 04/05/24 08:08 87 28 H 04/05/24 08:08 86 96 Mechanical Ventilation 35 04/05/24 08:00 35 04/05/24 08:00 Mechanical Ventilation 35 04/05/24 08:00 82 04/05/24 08:00 98.3 F 83 22 H 110/60 95 04/05/24 08:00 81 27 H 04/05/24 07:58 81 27 H 04/05/24 06:00 98.3 F 96 28 H 133/71 96 04/05/24 06:00 96 04/05/24 06:00 96 28 H 04/05/24 06:00 96 28 H 04/05/24 05:54 88 04/05/24 05:05 91 96 Mechanical Ventilation 35 04/05/24 04:00 98.3 F 97 24 H 126/77 96 04/05/24 04:00 97 04/05/24 04:00 35 04/05/24 04:00 96 Mechanical Ventilation 35 04/05/24 04:00 97 24 H 04/05/24 04:00 97 24 H 04/05/24 02:05 89 24 H 04/05/24 02:04 89 24 H 04/05/24 02:02 87 96 Mechanical Ventilation 35 04/05/24 02:00 98.2 F 89 24 H 118/61 96 04/05/24 02:00 89 04/05/24 00:18 108 H 04/05/24 00:00 97.9 F 92 24 H 120/76 96 04/05/24 00:00 35 04/05/24 00:00 92 04/05/24 00:00 96 Mechanical Ventilation 35 04/05/24 00:00 92 24 H 04/05/24 00:00 92 24 H 04/04/24 23:01 86 96 Mechanical Ventilation 35 04/04/24 22:06 87 28 H 04/04/24 22:05 90 28 H 04/04/24 22:00 92 124/77 04/04/24 22:00 98.0 F 92 24 H 124/77 96 04/04/24 22:00 92 04/04/24 20:00 98.5 F 95 24 H 103/57 L 96 04/04/24 20:00 35 04/04/24 20:00 95 04/04/24 20:00 96 Mechanical Ventilation 35 04/04/24 20:00 84 103/57 L 04/04/24 20:00 84 24 H 04/04/24 20:00 84 24 H 04/04/24 19:55 80 96 Mechanical Ventilation 40 04/04/24 18:00 92 28 H 04/04/24 18:00 92 28 H 04/04/24 18:00 97.9 F 92 28 H 120/75 97 04/04/24 18:00 91 Intake/Output Intake/Output: Intake & Output 04/02/24 04/03/24 04/04/24 04/05/24 23:59 23:59 23:59 23:59 Intake Total 1573.7 2708.7 2233.2 1958.5 Output Total 827 417 8260 1300 Balance 918.7 2058.7 454.2 658.5 Meds/Results Medications: Active Medications Generic Name Dose Route Start Last Admin Trade Name Freq PRN Reason Stop Dose Admin Acetaminophen 650 mg 03/27/24 14:41 03/29/24 05:11 Acetaminophen 325 Mg Tablet PO 650 mg Q4H PRN Administration Mild Pain (1-3) or Fever Amiodarone HCl 400 mg 04/01/24 10:40 04/03/24 08:31 Amiodarone Hcl 200 Mg Tablet PO 400 mg DAILY [facility]AVERNE Administration Apixaban 5 mg 03/27/24 12:35 04/05/24 07:54 Apixaban 5 Mg Tablet PO 5 mg Q12HR LAVERNE Administration Bumetanide 2 mg 04/05/24 21:00 Bumetanide Inj 1 Mg/4 Ml Vial IV PUSH 04/05/24 21:01 ONCE ONE Cyanocobalamin 1,000 mcg 03/27/24 17:00 04/05/24 07:54 Cyanocobalamin 1,000 Mcg Tablet PO 1,000 mcg BID LAVERNE Administration Dextrose 12.5 gm 03/27/24 08:57 Dextrose 50% 25 Gm/50 Ml Syringe IV PUSH PRN PRN Hypoglycemia Protocol Glucagon 1 mg 03/27/24 08:57 Glucagon For Inj 1 Mg Vial IM PRN PRN Hypoglycemia Protocol Glucose 15 gm 03/27/24 08:57 Glucose Oral Gel 15 Gm Of Glucse In 37.5 Gm Tube PO PRN PRN Hypoglycemia Protocol Dextrose 1,000 mls @ 100 mls/hr 03/27/24 08:57 Dextrose 5% 1,000 Ml IVPB PRN PRN Hypoglycemia Protocol Fentanyl Citrate 2,500 mcg in 250 mls @ 7.5 mls/hr 03/28/24 15:45 04/05/24 16:00 Fentanyl 2,500 Mcg/Ns 250 Ml IV CONT 75 mcg/hr .[id number] LAVERNE 7.5 mls/hr Titration Protocol 75 MCG/HR Midazolam HCl 100 mg in 100 mls @ 3 mls/hr 03/28/24 19:30 04/05/24 16:00 Versed 100 Mg/Ns 100 Ml IV CONT 3 mg/hr .[id number] L[facility]ERNE 3 mls/hr Titration Protocol 3 MG/HR Albumin Human 50 mls @ 999 mls/hr 04/03/24 09:19 04/04/24 10:06 Albutein IVPB 05/03/24 09:18 999 mls/hr Q10M PRN Administration HYPOTENSION Cefepime HCl 2 gm in 50 mls @ 100 mls/hr 04/04/24 15:00 04/05/24 14:53 Maxipime 2 Gm/Ns 50 Ml IVPB 04/06/24 23:59 Infused Q24H [facility] Infusion Insulin Aspart 4 - 8 units 03/29/24 13:00 04/05/24 16:04 Insulin Aspart (*Bkc) 100 Units/Ml SUB-Q Not Given Q4HR [facility] Protocol Insulin Glargine 60 units 04/01/24 09:00 04/05/24 08:07 Insulin Glargine (*Bkc) 100 Units/Ml SUB-Q 60 units Q12HR [facility]ER[facility] Administration Metoprolol Tartrate 25 mg 04/01/24 10:40 04/05/24 11:34 Metoprolol Tartrate 25 Mg Tablet PO 25 mg Q6HR [facility] Administration Multi-Ingred Cream/Lotion/Oil/Oint 1 applic 03/28/24 21:00 04/05/24 08:00 Mineral Oil/White Petrolatum Ointment EACH EYE 1 applic Q12HR [facility] Administration Pantoprazole Sodium 40 mg 03/29/24 09:00 04/05/24 07:56 Pantoprazole Sodium Iv 40 Mg Vial IV PUSH 40 mg DAILY [facility]ER[facility] Administration Polyethylene Glycol 17 gm 04/04/24 11:45 04/05/24 07:56 Polyethylene Glycol 3350 17 Gm Powd.Pack PO 17 gm QAM [facility] Administration Rosuvastatin Calcium 20 mg 03/28/24 09:00 03/31/24 09:28 Rosuvastatin 20 Mg Tablet PO Not Given DAILY LAVERNE Sodium Chloride 10 ml 03/28/24 22:00 04/05/24 14:23 Central Line Flush IV PUSH 10 ml Q8HR [facility] Administration Sodium Chloride 10 ml 03/28/24 16:14 Central Line Flush IV PUSH PRN PRN with TPN bag changes Sodium Chloride 20 ml 03/28/24 16:14 Central Line Flush IV PUSH PRN PRN after blood draws Radiology Results: ITS Impressions Chest CTA 03/27/24 06:41 Impression: No evidence of pulmonary embolus, aortic dissection, or aortic aneurysm. Extensive right lower lobe pneumonia. Probable mildly prominent reactive lymphadenopathy the right axilla and subcarinal region. Head CT 03/28/24 22:59 IMPRESSION: 1. Normal brain. Abdomen X-Ray 03/29/24 08:59 IMPRESSION: 1. Lines and tubes in expected positions. 2. Diffuse bilateral lung disease, right greater than left, consistent with multifocal pneumonia. Renal Ultrasound 03/31/24 15:34 IMPRESSION: No hydronephrosis. Perinephric fluid collection adjacent to the left lower pole. Abdomen Ultrasound 03/31/24 15:39 IMPRESSION: Status post cholecystectomy. Pancreas poorly visualized. Otherwise normal abdominal ultrasound findings. Chest X-Ray 04/05/24 06:51 Impression: Moderate pulmonary edema pattern. Correlate clinically for pneumonia. Support tubes, as above. Labs Labs: Laboratory Tests 04/05/24 05:44 04/05/24 05:44 Calcium 8.1 L Phosphorus 5.0 H Magnesium 2.4 H Total Bilirubin 0.9 AST 63 H ALT 565 H Alkaline Phosphatase 224 H Total Protein 6.0 L Albumin 2.8 L
--- NOTE | 2024-04-05 10:36 | PCNFU ---
Nutrition Follow-Up Complete: Suboptimal Energy Intake as related to mechanical ventilation as evidenced by current tube feeding rate. Goal: Meet estimated nutritional needs. Patient will continue current goal. Pt current nutrition is Vital AF 1.2 at 60 ml/hr. Last recorded weight is 157.8 kg, up from 148.9 kg on admit. Bowel Motility: Nursing reported smear. No BM reported since 03/26 Labs Reviewed: Mg 2.4, Cr 2.61, BUN 93, Glu 177, GFR 18, Alb 2.8 Meds Noted:Bumex, Lantus, Fentanyl, Versed, Novolog, Miralax. Skin: WNL Additional Notes: Patient remains on mechanical vent. 2/3 Dialysis. Tube feedings are being tolerated of Vital AF 1.2 at 60 ml/hr. Flush 30 ml q 4 hours. Total Nutrition: 1584 kcal/99 gm protein/1071 ml water. Agree with diet orders. Will monitor weight, labs, skin, diet orders, meds, tube feeding tolerance every Thursday and Thursday.
--- NOTE | 2024-04-05 10:40 | P.PNINT_ITS ---
Progress Note: A&P Assessment and Plan (1) Acute hypoxic respiratory failure: Code(s): J96.01 - Acute respiratory failure with hypoxia Status: Acute Assessment and Plan: Acute hypoxic respiratory failure secondary to pneumonia and congestive heart failure Patient now emergently intubated 03/28 -03/28: Repeat PCR was positive RSV -continue isolation -chest x-ray and ABGs reviewed this morning -Currently PEEP to 10 and FiO2 down to 30% -patient will require additional fluid removal before considering weaning from mechanical ventilation -sedated with fentanyl and Versed infusion, maintain RASS of 0 to -2, daily sedation vacation -status post stress dose steroids. -discussed with Nephrology, patient did have if improved urine output over the last 24 hours, and since she did not tolerate dialysis well, teacher home therapy recommended commended Bumex 2 mg IV x1. If she does not respond well, will have to dialyze the patient 03/27 CTA chest Impression: No evidence of pulmonary embolus, aortic dissection, or aortic aneurysm. Extensive right lower lobe pneumonia. Probable mildly prominent reactive lymphadenopathy the right axilla and subcari nal region. (2) Sepsis: Code(s): A41.9 - Sepsis, unspecified organism Status: Acute Assessment and Plan: Sepsis/septic shock secondary to community-acquired pneumonia, initial procalcitonin level 4.4 Blood cultures ordered and negative till now Sputum cultures negative Urine Legionella and pneumococcal antigen negative Status post cefepime and azithromycin MRSA screen negative. Vancomycin discontinued (3) Diabetes: Code(s): E11.9 - Type 2 diabetes mellitus without complications Status: Chronic Assessment and Plan: Status post insulin infusion Currently on Lantus to 60 units q.12 Steroids discontinued and dialysis being started anticipate improvement in blood sugars, off insulin infusion - Continue tube feeds (4) Atrial fibrillation with RVR: Code(s): I48.91 - Unspecified atrial fibrillation Status: Acute Assessment and Plan: Patient was amiodarone infusion which has been switched to p.o. amiodarone per tube metoprolol by Cardiology Patient is anticoagulated with Eliquis Echo Summary 1. Very technically difficult study with limited views. 2. Left ventricular chamber dimension is normal. 3. Left ventricular systolic function is at lower limits of normal, estimated at 50-55%. 4. Left atrial chamber dimension is moderately enlarged (5) Community acquired pneumonia: Code(s): J18.9 - Pneumonia, unspecified organism Status: Acute Assessment and Plan: See above (6) Altered mental status: Code(s): R41.82 - Altered mental status, unspecified Status: Acute Assessment and Plan: Likely secondary to hypoxia. Patient had CT scan of the head recently done which was unremarkable Repeat head CT on 03/28 was again unremarkable Ammonia levels within normal limit TSH was normal -04/05: patient did open her eyes and follows simple commands and lower extremity (7) Electrolyte abnormality: Code(s): E87.8 - Other disorders of electrolyte and fluid balance, not elsewhere classified Status: Acute Assessment and Plan: Improved after replacement -continue to monitor (8) Shock: Code(s): R57.9 - Shock, unspecified Status: Acute Assessment and Plan: Patient was on Levophed and vasopressin infusion which are currently off -off stress dose steroid - status post 25% albumin -Hold further crystalloids (9) VINCENT (acute kidney injury): Code(s): N17.9 - Acute kidney failure, unspecified Status: Acute Assessment and Plan: Increase in creatinine and drop in urine output likely secondary to shock Patient received IV fluids and 5% albumin earlier in the course. norm CK level Renal ultrasound showed No hydronephrosis. Perinephric fluid collection adjacent to the left lower pole. Nephrology following Continued maintain mean arterial pressure with vasopressors if needed 2/ Discussed with teacher home therapy and patient's family. Discussed risks and benefits of starting hemodialysis. Heavy Equipment Operator Apprentice and patient's family in agreement. Patient's consented to proceed. Temporary dialysis catheter placed. Patient was dialyzed. Further dialysis per as per Nephrology -04/04: Patient did not tolerate dialysis as she became tachypneic, tachycardic and hypotensive requiring restarting Levophed. -04/05: Heavy Equipment Operator Apprentice recommended giving Bumex 2 mg IV x1 since patient had slightly improved urine output over the last 24 hours and a creatinine and BUN trending downward, - will monitor urine output, renal function and electrolytes (10) Elevated liver enzymes: Code(s): R74.8 - Abnormal levels of other serum enzymes Status: Acute Assessment and Plan: Patient is status post cholecystectomy Elevated AST ALT and alkaline phosphatase likely secondary to shock liver Hold statin Right upper quadrant ultrasound - Status post cholecystectomy. Pancreas poorly visualized. Otherwise normal abdominal ultrasound findings. While hepatitis panel was negative Levels were increasing I have discussed with Cardiology regarding potential amiodarone related hepatotoxicity. Patient was on IV amiodarone earlier for rate control as patient was in AFib with RVR. It was switched to p.o. as the rate improved. 04/03 amiodarone was held GI consult and following 04/05 levels improving. Monitor Plan DVT prophylaxis -Eliquis Stress ulcer prophylaxis -protonix Nutrition -tolerating tube feeds, no bowel movements, currently on MiraLax Code Status - Full Code Total Critical Care Time - 36 minutes 03/31 updated patient's and daughter at bedside and updated them with patient's current status including septic shock, respiratory failure, AFib with RVR, VINCENT and worsening renal function and possibility of patient needing dialysis. We also discussed her elevated liver enzymes. I answered all their question Case also discussed with hospitalist 04/01-updated at bedside answered all his questions. 04/02 spoke to patient's at bedside and answered all his questions. Updated him with patient's status Due to a high probability of clinically significant, life threatening de terioration, the patient required my highest level of preparedness to intervene emergently and I personally spent this critical care time directly and personally managing the patient. This critical care time included obtaining a history; examining the patient; pulse oximetry; ordering and review of studies; arranging urgent treatment with development of a management plan; evaluation of patient's response to treatment; frequent reassessment; and discussions with other providers. It was exclusive of separately billable procedures and treating other patients and teaching time. Please see Assessment and Plan section and the rest of the note for further information on patient assessment and treatment This dictation may have been done utilizing a voice recognition system. Attempts have been made to correct errors. However, there may be uncorrected grammatical, spelling, and recognitions errors present. Subjective Date/time seen: 04/05/24 10:40 Interval history: 68yo female with AFib s/p SHAYY cardioversion that was unsuccessful, KAREN not using CPAP, DM, HTN and endometrial cancer who presents with shortness of breath, leg swelling and weight gain over the past few weeks. Now in with respiratory failure secondary to pneumonia with septic shock. Intubated and on mechanical ventilation. RSV positive, acute kidney injury status post dialysis catheter and dialysis 04/05/2024: Pt seen and examined in the ICU this morning. Remains intubated on CMV mode of ventilation. Sedated with Fentanyl and Versed, opens her eyes and follows simple commands in lower extremities. Urine output has been better over the last 24 hours, creatinine has improved to 2.61 this morning. Patient did not tolerate dialysis yesterday, was tachypneic, tachycardic, hypotensive requiring vasopressors which were weaned off after she finished her dialysis. Review of Systems Review of Systems: ROS unobtainable: Yes unobtainable due to endotracheal tube, unobtainable due to medical condition and unobtainable due to mental status Exam Narrative: General: Pt is now sedated, intubated and on mechanical ventilation Lungs/Chest: Coarse breath sounds bilaterally, no wheezing, decreased air entry at bases Cardiac: Irregularly irregular, heart rates in the 90s to 100s Circulation: Pedal pulses are intact and symmetrical. Abdomen: Normoactive bowel sounds bowel sounds. Morbidly Obese. Soft. NT. ND. Extremities: No clubbing, cyanosis, bilateral upper and lower extremity edema : Can in place Neurologic: Patient is intubated and sedated, opens her eyes, follows simple command in lower extremities, pupils equal and reactive to light Objective Data Vital Signs Vital Signs: Vital Signs - 24 hr 04/04/24 10:43 04/04/24 10:45 04/04/24 11:00 Temperature Pulse Rate 100 100 95 Respiratory Rate Blood Pressure 85/50 L 91/46 L Pulse Oximetry 92 Oxygen Delivery Mechanical Ventilation Fraction of Inspired Oxygen 40 04/04/24 11:15 04/04/24 11:30 04/04/24 11:30 Temperature Pulse Rate 98 92 86 Respiratory Rate Blood Pressure 93/61 L 91/52 L 91/52 L Pulse Oximetry Oxygen Delivery Fraction of Inspired Oxygen 04/04/24 11:45 04/04/24 12:00 04/04/24 12:00 Temperature Pulse Rate 91 96 98 Respiratory Rate Blood Pressure 86/60 L 91/66 L Pulse Oximetry Oxygen Delivery Fraction of Inspired Oxygen 04/04/24 12:00 04/04/24 12:00 04/04/24 12:00 Temperature 98.5 F Pulse Rate 89 89 89 Respiratory Rate 16 28 H 28 H Blood Pressure 91/66 L Pulse Oximetry 96 Oxygen Delivery Fraction of Inspired Oxygen 04/04/24 12:00 04/04/24 12:00 04/04/24 12:00 Temperature Pulse Rate 89 Respiratory Rate Blood Pressure 91/66 L Pulse Oximetry 96 Oxygen Delivery Mechanical Ventilation Fraction of Inspired Oxygen 40 40 04/04/24 12:15 04/04/24 12:30 04/04/24 12:45 Temperature Pulse Rate 81 84 92 Respiratory Rate Blood Pressure 102/67 93/66 L 103/63 Pulse Oximetry Oxygen Delivery Fraction of Inspired Oxygen 04/04/24 12:49 04/04/24 13:00 04/04/24 13:00 Temperature 98.2 F Pulse Rate 89 82 82 Respiratory Rate 28 H Blood Pressure 102/81 117/83 117/83 Pulse Oximetry Oxygen Delivery Fraction of Inspired Oxygen 04/04/24 13:22 04/04/24 13:30 04/04/24 13:31 Temperature Pulse Rate 86 86 86 Respiratory Rate Blood Pressure 125/81 136/81 Pulse Oximetry 97 Oxygen Delivery Mechanical Ventilation Fraction of Inspired Oxygen 40 04/04/24 13:46 04/04/24 14:00 04/04/24 14:00 Temperature Pulse Rate 98 88 88 Respiratory Rate 29 H 29 H Blood Pressure 147/80 H Pulse Oximetry Oxygen Delivery Fraction of Inspired Oxygen 04/04/24 14:00 04/04/24 14:00 04/04/24 14:04 Temperature 98 F Pulse Rate 88 88 86 Respiratory Rate 29 H Blood Pressure 145/75 H 147/75 H Pulse Oximetry 96 Oxygen Delivery Fraction of Inspired Oxygen 04/04/24 14:30 04/04/24 14:49 04/04/24 16:00 Temperature Pulse Rate 93 89 95 Respiratory Rate 28 H Blood Pressure 135/79 121/78 Pulse Oximetry Oxygen Delivery Fraction of Inspired Oxygen 04/04/24 16:00 04/04/24 16:00 04/04/24 16:00 Temperature 97.9 F Pulse Rate 95 95 Respiratory Rate 28 H 28 H Blood Pressure 124/67 Pulse Oximetry 95 95 Oxygen Delivery Mechanical Ventilation Fraction of Inspired Oxygen 40 04/04/24 16:00 04/04/24 16:00 04/04/24 16:32 Temperature Pulse Rate 92 89 Respiratory Rate Blood Pressure Pulse Oximetry 95 Oxygen Delivery Mechanical Ventilation Fraction of Inspired Oxygen 40 40 04/04/24 17:39 04/04/24 18:00 04/04/24 18:00 Temperature 97.9 F Pulse Rate 99 91 92 Respiratory Rate 28 H Blood Pressure 120/75 Pulse Oximetry 97 Oxygen Delivery Fraction of Inspired Oxygen 04/04/24 18:00 04/04/24 18:00 04/04/24 19:55 Temperature Pulse Rate 92 92 80 Respiratory Rate 28 H 28 H Blood Pressure Pulse Oximetry 96 Oxygen Delivery Mechanical Ventilation Fraction of Inspired Oxygen 40 04/04/24 20:00 04/04/24 20:00 04/04/24 20:00 Temperature Pulse Rate 84 84 84 Respiratory Rate 24 H 24 H Blood Pressure 103/57 L Pulse Oximetry Oxygen Delivery Fraction of Inspired Oxygen 04/04/24 20:00 04/04/24 20:00 04/04/24 20:00 Temperature Pulse Rate 95 Respiratory Rate Blood Pressure Pulse Oximetry 96 Oxygen Delivery Mechanical Ventilation Fraction of Inspired Oxygen 35 35 04/04/24 20:00 04/04/24 22:00 04/04/24 22:00 Temperature 98.5 F 98.0 F Pulse Rate 95 92 92 Respiratory Rate 24 H 24 H Blood Pressure 103/57 L 124/77 Pulse Oximetry 96 96 Oxygen Delivery Fraction of Inspired Oxygen 04/04/24 22:00 04/04/24 22:05 04/04/24 22:06 Temperature Pulse Rate 92 90 87 Respiratory Rate 28 H 28 H Blood Pressure 124/77 Pulse Oximetry Oxygen Delivery Fraction of Inspired Oxygen 04/04/24 23:01 04/05/24 00:00 04/05/24 00:00 Temperature Pulse Rate 86 92 92 Respiratory Rate 24 H 24 H Blood Pressure Pulse Oximetry 96 Oxygen Delivery Mechanical Ventilation Fraction of Inspired Oxygen 35 04/05/24 00:00 04/05/24 00:00 04/05/24 00:00 Temperature Pulse Rate 92 Respiratory Rate Blood Pressure Pulse Oximetry 96 Oxygen Delivery Mechanical Ventilation Fraction of Inspired Oxygen 35 35 04/05/24 00:00 04/05/24 00:18 04/05/24 02:00 Temperature 97.9 F Pulse Rate 92 108 H 89 Respiratory Rate 24 H Blood Pressure 120/76 Pulse Oximetry 96 Oxygen Delivery Fraction of Inspired Oxygen 04/05/24 02:00 04/05/24 02:02 04/05/24 02:04 Temperature 98.2 F Pulse Rate 89 87 89 Respiratory Rate 24 H 24 H Blood Pressure 118/61 Pulse Oximetry 96 96 Oxygen Delivery Mechanical Ventilation Fraction of Inspired Oxygen 35 04/05/24 02:05 04/05/24 04:00 04/05/24 04:00 Temperature Pulse Rate 89 97 97 Respiratory Rate 24 H 24 H 24 H Blood Pressure Pulse Oximetry Oxygen Delivery Fraction of Inspired Oxygen 04/05/24 04:00 04/05/24 04:00 04/05/24 04:00 Temperature Pulse Rate 97 Respiratory Rate Blood Pressure Pulse Oximetry 96 Oxygen Delivery Mechanical Ventilation Fraction of Inspired Oxygen 35 35 04/05/24 04:00 04/05/24 05:05 04/05/24 05:54 Temperature 98.3 F Pulse Rate 97 91 88 Respiratory Rate 24 H Blood Pressure 126/77 Pulse Oximetry 96 96 Oxygen Delivery Mechanical Ventilation Fraction of Inspired Oxygen 35 04/05/24 06:00 04/05/24 06:00 04/05/24 06:00 Temperature Pulse Rate 96 96 96 Respiratory Rate 28 H 28 H Blood Pressure Pulse Oximetry Oxygen Delivery Fraction of Inspired Oxygen 04/05/24 06:00 04/05/24 07:58 04/05/24 08:00 Temperature 98.3 F Pulse Rate 96 81 81 Respiratory Rate 28 H 27 H 27 H Blood Pressure 133/71 Pulse Oximetry 96 Oxygen Delivery Fraction of Inspired Oxygen 04/05/24 08:00 04/05/24 08:00 04/05/24 08:00 Temperature 98.3 F Pulse Rate 83 82 Respiratory Rate 22 H Blood Pressure 110/60 Pulse Oximetry 95 Oxygen Delivery Mechanical Ventilation Fraction of Inspired Oxygen 35 04/05/24 08:00 04/05/24 08:08 04/05/24 08:08 Temperature Pulse Rate 86 87 Respiratory Rate 28 H Blood Pressure Pulse Oximetry 96 Oxygen Delivery Mechanical Ventilation Fraction of Inspired Oxygen 35 35 04/05/24 09:35 04/05/24 10:00 04/05/24 10:00 Temperature Pulse Rate 87 87 87 Respiratory Rate 28 H 25 H 25 H Blood Pressure Pulse Oximetry Oxygen Delivery Fraction of Inspired Oxygen 04/05/24 10:00 04/05/24 10:00 Temperature 98.4 F Pulse Rate 87 87 Respiratory Rate 25 H Blood Pressure 105/63 Pulse Oximetry 96 Oxygen Delivery Fraction of Inspired Oxygen Intake/Output Intake/Output: Intake & Output 04/02/24 04/03/24 04/04/24 04/05/24 23:59 23:59 23:59 23:59 Intake Total 1573.7 2708.7 2233.2 1002.2 Output Total 621 260 8327 525 Balance 918.7 2058.7 454.2 477.2 Meds/Results Medications: Active Medications Generic Name Dose Route Start Last Admin Trade Name Freq PRN Reason Stop Dose Admin Acetaminophen 650 mg 03/27/24 14:41 03/29/24 05:11 Acetaminophen 325 Mg Tablet PO 650 mg Q4H PRN Administration Mild Pain (1-3) or Fever Amiodarone HCl 400 mg 04/01/24 10:40 04/03/24 08:31 Amiodarone Hcl 200 Mg Tablet PO 400 mg DAILY LAVERNE Administration Apixaban 5 mg 03/27/24 12:35 04/05/24 07:54 Apixaban 5 Mg Tablet PO 5 mg Q12HR LAVERNE Administration Cyanocobalamin 1,000 mcg 03/27/24 17:00 04/05/24 07:54 Cyanocobalamin 1,000 Mcg Tablet PO 1,000 mcg BID LAVERNE Administration Dextrose 12.5 gm 03/27/24 08:57 Dextrose 50% 25 Gm/50 Ml Syringe IV PUSH PRN PRN Hypoglycemia Protocol Glucagon 1 mg 03/27/24 08:57 Glucagon For Inj 1 Mg Vial IM PRN PRN Hypoglycemia Protocol Glucose 15 gm 03/27/24 08:57 Glucose Oral Gel 15 Gm Of Glucse In 37.5 Gm Tube PO PRN PRN Hypoglycemia Protocol Dextrose 1,000 mls @ 100 mls/hr 03/27/24 08:57 Dextrose 5% 1,000 Ml IVPB PRN PRN Hypoglycemia Protocol Fentanyl Citrate 2,500 mcg in 250 mls @ 7.5 mls/hr 03/28/24 15:45 04/05/24 10:00 Fentanyl 2,500 Mcg/Ns 250 Ml IV CONT 75 mcg/hr .[id number] LAVERNE 7.5 mls/hr Titration Protocol 75 MCG/HR Midazolam HCl 100 mg in 100 mls @ 2 mls/hr 03/28/24 19:30 04/05/24 10:00 Versed 100 Mg/Ns 100 Ml IV CONT 2 mg/hr .Q50H LAVERNE 2 mls/hr Titration Protocol 2 MG/HR Albumin Human 50 mls @ 999 mls/hr 04/03/24 09:19 04/04/24 10:06 Albutein IVPB 05/03/24 09:18 999 mls/hr Q10M PRN Administration HYPOTENSION Cefepime HCl 2 gm in 50 mls @ 100 mls/hr 04/04/24 15:00 04/04/24 15:16 Maxipime 2 Gm/Ns 50 Ml IVPB 04/06/24 23:59 Infused Q24H LAVERNE Infusion Insulin Aspart 4 - 8 units 03/29/24 13:00 04/05/24 08:09 Insulin Aspart (*Bkc) 100 Units/Ml SUB-Q Not Given Q4HR [facility] Protocol Insulin Glargine 60 units 04/01/24 09:00 04/05/24 08:07 Insulin Glargine (*Bkc) 100 Units/Ml SUB-Q 60 units Q12HR LAVERNE Administration Metoprolol Tartrate 25 mg 04/01/24 10:40 04/05/24 05:54 Metoprolol Tartrate 25 Mg Tablet PO 25 mg Q6HR LAVERNE Administration Multi-Ingred Cream/Lotion/Oil/Oint 1 applic 03/28/24 21:00 04/05/24 08:00 Mineral Oil/White Petrolatum Ointment EACH EYE 1 applic Q12HR LAVERNE Administration Pantoprazole Sodium 40 mg 03/29/24 09:00 04/05/24 07:56 Pantoprazole Sodium Iv 40 Mg Vial IV PUSH 40 mg DAILY LAVERNE Administration Polyethylene Glycol 17 gm 04/04/24 11:45 04/05/24 07:56 Polyethylene Glycol 3350 17 Gm Powd.Pack PO 17 gm QAM LAVERNE Administration Rosuvastatin Calcium 20 mg 03/28/24 09:00 03/31/24 09:28 Rosuvastatin 20 Mg Tablet PO Not Given DAILY LAVERNE Sodium Chloride 10 ml 03/28/24 22:00 04/05/24 05:54 Central Line Flush IV PUSH 10 ml Q8HR LAVERNE Administration Sodium Chloride 10 ml 03/28/24 16:14 Central Line Flush IV PUSH PRN PRN with TPN bag changes Sodium Chloride 20 ml 03/28/24 16:14 Central Line Flush IV PUSH PRN PRN after blood draws Radiology Results: ITS Impressions Chest CTA 03/27/24 06:41 Impression: No evidence of pulmonary embolus, aortic dissection, or aortic aneurysm. Extensive right lower lobe pneumonia. Probable mildly prominent reactive lymphadenopathy the right axilla and subcarinal region. Head CT 03/28/24 22:59 IMPRESSION: 1. Normal brain. Abdomen X-Ray 03/29/24 08:59 IMPRESSION: 1. Lines and tubes in expected positions. 2. Diffuse bilateral lung disease, right greater than left, consistent with multifocal pneumonia. Renal Ultrasound 03/31/24 15:34 IMPRESSION: No hydronephrosis. Perinephric fluid collection adjacent to the left lower pole. Abdomen Ultrasound 03/31/24 15:39 IMPRESSION: Status post cholecystectomy. Pancreas poorly visualized. Otherwise normal abdominal ultrasound findings. Chest X-Ray 04/05/24 06:51 Impression: Moderate pulmonary edema pattern. Correlate clinically for pneumonia. Support tubes, as above. Labs Labs: Laboratory Results - last 24 hr 04/04/24 04/04/24 04/04/24 11:16 12:11 16:09 WBC RBC Hgb Hct MCV MCH MCHC RDW Plt Count MPV Puncture Site ABG pH ABG pCO2 ABG pO2 ABG PO2/FiO2 Ratio ABG HCO3 ABG O2 Saturation ABG O2 Content ABG Base Excess A-a Gradient Oxyhemoglobin Carboxyhemoglobin Methemoglobin Reduced Hemoglobin Total Hemoglobin O2 Delivery Device O2 Liters/Min Minute Volume Vent Rate Vent Mode FiO2 Tidal Volume PEEP Peak Inspir Pressure Pressure Support Sodium Potassium Chloride Carbon Dioxide Anion Gap BUN Creatinine Estim Creat Clear Calc Estimated GFR Glucose POC Capillary Glucose 169 H 157 H 178 H Calcium Phosphorus Magnesium Total Bilirubin AST ALT Alkaline Phosphatase Total Protein Albumin 04/04/24 04/05/24 04/05/24 20:27 00:17 04:30 WBC RBC Hgb Hct MCV MCH MCHC RDW Plt Count MPV Puncture Site ABG pH ABG pCO2 ABG pO2 ABG PO2/FiO2 Ratio ABG HCO3 ABG O2 Saturation ABG O2 Content ABG Base Excess A-a Gradient Oxyhemoglobin Carboxyhemoglobin Methemoglobin Reduced Hemoglobin Total Hemoglobin O2 Delivery Device O2 Liters/Min Minute Volume Vent Rate Vent Mode FiO2 Tidal Volume PEEP Peak Inspir Pressure Pressure Support Sodium Potassium Chloride Carbon Dioxide Anion Gap BUN Creatinine Estim Creat Clear Calc Estimated GFR Glucose POC Capillary Glucose 231 H 193 H 201 H Calcium Phosphorus Magnesium Total Bilirubin AST ALT Alkaline Phosphatase Total Protein Albumin 04/05/24 04/05/24 04/05/24 05:08 05:44 08:06 WBC 14.5 H RBC 3.61 L Hgb 11.1 L Hct 33.0 L MCV 91.4 MCH 30.7 MCHC 33.6 RDW 17.5 H Plt Count 247 MPV 10.2 Puncture Site Right radial ABG pH 7.430 ABG pCO2 46.5 H ABG pO2 84.3 ABG PO2/FiO2 Ratio 2.41 ABG HCO3 30.2 H ABG O2 Saturation 96.5 ABG O2 Content 15.9 L ABG Base Excess 5.1 A-a Gradient 111.2 Oxyhemoglobin 95.6 Carboxyhemoglobin 0.6 Methemoglobin 0.3 Reduced Hemoglobin 3.5 Total Hemoglobin 11.8 L O2 Delivery Device Ventilator O2 Liters/Min Not Reportable Minute Volume Not Reportable Vent Rate 24 Vent Mode Cmv FiO2 35 Tidal Volume 400 PEEP 10 Peak Inspir Pressure Not Reportable Pressure Support Not Reportable Sodium 137 Potassium 4.4 Chloride 97 L Carbon Dioxide 31 H Anion Gap 9 BUN 93 H D Creatinine 2.61 H Estim Creat Clear Calc 30 Estimated GFR 18 L Glucose 177 H POC Capillary Glucose 148 H Calcium 8.1 L Phosphorus 5.0 H Magnesium 2.4 H Total Bilirubin 0.9 AST 63 H ALT 565 H Alkaline Phosphatase 224 H Total Protein 6.0 L Albumin 2.8 L Quality VTE Prophylaxis VTE prophylaxis: pharmacologic ordered
[2024-04-05 11:33] LABS: Glucose Point of Care 144 mg/dl (65-105)
--- NOTE | 2024-04-05 14:07 | P.PNIM_ITS ---
Progress Note: A&P Assessment and Plan (1) Acute hypoxic respiratory failure: Code(s): J96.01 - Acute respiratory failure with hypoxia Status: Acute Assessment and Plan: Acute hypoxic respiratory failure secondary to pneumonia and possible CHF. RSV positive as well. CTA chest (03/27) showing no evidence of PE, aortic dissection, or aortic aneurysm but with extensive right lower lobe pneumonia. Probable mildly prominent reactive lymphadenopathy in the right axilla and subcarinal region. Patient was emergently intubated 03/28 CXR now showing bilateral asymmetric airspace disease with improvement on the left. Continue Versed and fentanyl for sedation Wean settings as tolerated. (2) Septic shock: Code(s): A41.9 - Sepsis, unspecified organism; R65.21 - Severe sepsis with septic shock Status: Acute Assessment and Plan: Sepsis secondary to community-acquired pneumonia Blood cultures NGTD Sputum culture Negative Urine Legionella negative; pneumococcal antigen pending Started on vancomycin, cefepime, azithromycin. PCT 4.4. MRSA nasal swab negative. RSV positive. COVID and influenza PCR negative. Weaned off vasopressin and Levophed earlier but Levophed resumed 04/04 when on dilaysis. Weaned off Levophed again later on 04/04. Hydrocortisone started for severe pneumonia and shock' hydrocortisone now off Monitor BP closely off pressors (3) VINCENT (acute kidney injury): Code(s): N17.9 - Acute kidney failure, unspecified Status: Acute Assessment and Plan: Increase in creatinine and drop in urine output likely secondary to shock Patient is overall volume overloaded Albumin bolus given once 03/30 Jeny <5, UCr 186 and FENa 0.03. Echo showing EF 50-55%. Ueos negative. Renal US showing normal sized kidneys with normal renal parenchyma but with a perinephric fluid collection adjacent to the left lower pole. UA showing 21- 50WBC, N/LE negative. UCx negative. UOP poor so temporary dialysis catheter placed. Patient with dialysis 04/02. She did not toelrated HD on 04/04 Bumex ordered. Follow. HD to control fluid status. (4) Community acquired pneumonia: Code(s): J18.9 - Pneumonia, unspecified organism Status: Acute Assessment and Plan: As above (5) Atrial fibrillation with RVR: Code(s): I48.91 - Unspecified atrial fibrillation Status: Acute Assessment and Plan: Patient was given IV metoprolol and IV Cardizem with no response. She was transferred to IMU and a Cardizem drip was started with little response on heart rates. She continued to have heart rates in the 120s to 140s range. Cardizem was stopped and amiodarone was given as a bolus and a drip was started. Echo was very technically difficult study with limited views, LV EF 50-55%. TSH was normal. Echo showing EF 50-55%. Atrial fibrillation is rate controlled. Continue Lopressor. Amiodarone on hold (6) Diabetes: Code(s): E11.9 - Type 2 diabetes mellitus without complications Status: Chronic Assessment and Plan: A1c 7.2%. The patient's blood glucose was reviewed on 04/05 Glucose better controlled. Continue AccuCheks covering with sliding scale. Hypoglycemia protocol available as needed. Continue to monitor. (7) Altered mental status: Code(s): R41.82 - Altered mental status, unspecified Status: Acute Assessment and Plan: Likely secondary to hypoxic. CT head (03/27) that was unremarkable Repeat head CT on 03/28 again was normal. Ammonia 15. TSH normal She does not follow commands Assess with sedation holiday (8) Transaminitis: Code(s): R74.01 - Elevation of levels of liver transaminase levels Status: Acute Assessment and Plan: LFTs became elevated. Hepatitis panel negative RUQ US showing no acute findings. She is s/p cholecystectomy. [place] related to shock liver. Crestor stopped. AST/ALT trending down. Follow (9) RSV (respiratory syncytial virus pneumonia): Code(s): J12.1 - Respiratory syncytial virus pneumonia Status: Acute Assessment and Plan: As above. Plan DVT prophylaxis - SCDs Code Status - Full Code Subjective Date/time seen: 04/05/24 14:07 Interval history: 68yo female with AFib s/p SHAYY cardioversion that was unsuccessful, KAREN not using CPAP, DM, HTN and endometrial cancer who presents with shortness of breath, leg swelling and weight gain over the past few weeks. Patient remains intubated and sedated.Did not toelrate HD yesterday due to tachycardia and HoTN. UOP 500mL overnight. No dilaysis today planned. Bumex ordered. Review of Systems Review of Systems: ROS unobtainable: Yes unobtainable due to endotracheal tube Exam Narrative: AF 97.9 126/76 100 25 95% MV Gen - intubated and sedated HEENT - ETT and OGT secured. Chest - clear anteriorly with crackles in the flanks. CV - irregularly irregular. Tele showing AFib with controlled rate. Abd - Soft, obese, +BS - Can secured draining clear yellow urine Ext - diffuse UE.LE edema. Neuro - sedated. does not follows commands Skin - Warm and dry. dried sores noted lisa-oral. Objective Data Vital Signs Vital Signs: Vital Signs - 24 hr 04/04/24 14:30 04/04/24 14:49 04/04/24 16:00 Temperature Pulse Rate 93 89 95 Respiratory Rate 28 H Blood Pressure 135/79 121/78 Pulse Oximetry Oxygen Delivery Fraction of Inspired Oxygen 04/04/24 16:00 04/04/24 16:00 04/04/24 16:00 Temperature 97.9 F Pulse Rate 95 95 Respiratory Rate 28 H 28 H Blood Pressure 124/67 Pulse Oximetry 95 95 Oxygen Delivery Mechanical Ventilation Fraction of Inspired Oxygen 40 04/04/24 16:00 04/04/24 16:00 04/04/24 16:32 Temperature Pulse Rate 92 89 Respiratory Rate Blood Pressure Pulse Oximetry 95 Oxygen Delivery Mechanical Ventilation Fraction of Inspired Oxygen 40 40 04/04/24 17:39 04/04/24 18:00 04/04/24 18:00 Temperature 97.9 F Pulse Rate 99 91 92 Respiratory Rate 28 H Blood Pressure 120/75 Pulse Oximetry 97 Oxygen Delivery Fraction of Inspired Oxygen 04/04/24 18:00 04/04/24 18:00 04/04/24 19:55 Temperature Pulse Rate 92 92 80 Respiratory Rate 28 H 28 H Blood Pressure Pulse Oximetry 96 Oxygen Delivery Mechanical Ventilation Fraction of Inspired Oxygen 40 04/04/24 20:00 04/04/24 20:00 04/04/24 20:00 Temperature Pulse Rate 84 84 84 Respiratory Rate 24 H 24 H Blood Pressure 103/57 L Pulse Oximetry Oxygen Delivery Fraction of Inspired Oxygen 04/04/24 20:00 04/04/24 20:00 04/04/24 20:00 Temperature Pulse Rate 95 Respiratory Rate Blood Pressure Pulse Oximetry 96 Oxygen Delivery Mechanical Ventilation Fraction of Inspired Oxygen 35 35 04/04/24 20:00 04/04/24 22:00 04/04/24 22:00 Temperature 98.5 F 98.0 F Pulse Rate 95 92 92 Respiratory Rate 24 H 24 H Blood Pressure 103/57 L 124/77 Pulse Oximetry 96 96 Oxygen Delivery Fraction of Inspired Oxygen 04/04/24 22:00 04/04/24 22:05 04/04/24 22:06 Temperature Pulse Rate 92 90 87 Respiratory Rate 28 H 28 H Blood Pressure 124/77 Pulse Oximetry Oxygen Delivery Fraction of Inspired Oxygen 04/04/24 23:01 04/05/24 00:00 04/05/24 00:00 Temperature Pulse Rate 86 92 92 Respiratory Rate 24 H 24 H Blood Pressure Pulse Oximetry 96 Oxygen Delivery Mechanical Ventilation Fraction of Inspired Oxygen 35 04/05/24 00:00 04/05/24 00:00 04/05/24 00:00 Temperature Pulse Rate 92 Respiratory Rate Blood Pressure Pulse Oximetry 96 Oxygen Delivery Mechanical Ventilation Fraction of Inspired Oxygen 35 35 04/05/24 00:00 04/05/24 00:18 04/05/24 02:00 Temperature 97.9 F Pulse Rate 92 108 H 89 Respiratory Rate 24 H Blood Pressure 120/76 Pulse Oximetry 96 Oxygen Delivery Fraction of Inspired Oxygen 04/05/24 02:00 04/05/24 02:02 04/05/24 02:04 Temperature 98.2 F Pulse Rate 89 87 89 Respiratory Rate 24 H 24 H Blood Pressure 118/61 Pulse Oximetry 96 96 Oxygen Delivery Mechanical Ventilation Fraction of Inspired Oxygen 35 04/05/24 02:05 04/05/24 04:00 04/05/24 04:00 Temperature Pulse Rate 89 97 97 Respiratory Rate 24 H 24 H 24 H Blood Pressure Pulse Oximetry Oxygen Delivery Fraction of Inspired Oxygen 04/05/24 04:00 04/05/24 04:00 04/05/24 04:00 Temperature Pulse Rate 97 Respiratory Rate Blood Pressure Pulse Oximetry 96 Oxygen Delivery Mechanical Ventilation Fraction of Inspired Oxygen 35 35 04/05/24 04:00 04/05/24 05:05 04/05/24 05:54 Temperature 98.3 F Pulse Rate 97 91 88 Respiratory Rate 24 H Blood Pressure 126/77 Pulse Oximetry 96 96 Oxygen Delivery Mechanical Ventilation Fraction of Inspired Oxygen 35 04/05/24 06:00 04/05/24 06:00 04/05/24 06:00 Temperature Pulse Rate 96 96 96 Respiratory Rate 28 H 28 H Blood Pressure Pulse Oximetry Oxygen Delivery Fraction of Inspired Oxygen 04/05/24 06:00 04/05/24 07:58 04/05/24 08:00 Temperature 98.3 F Pulse Rate 96 81 81 Respiratory Rate 28 H 27 H 27 H Blood Pressure 133/71 Pulse Oximetry 96 Oxygen Delivery Fraction of Inspired Oxygen 04/05/24 08:00 04/05/24 08:00 04/05/24 08:00 Temperature 98.3 F Pulse Rate 83 82 Respiratory Rate 22 H Blood Pressure 110/60 Pulse Oximetry 95 Oxygen Delivery Mechanical Ventilation Fraction of Inspired Oxygen 35 04/05/24 08:00 04/05/24 08:08 04/05/24 08:08 Temperature Pulse Rate 86 87 Respiratory Rate 28 H Blood Pressure Pulse Oximetry 96 Oxygen Delivery Mechanical Ventilation Fraction of Inspired Oxygen 35 35 04/05/24 09:35 04/05/24 10:00 04/05/24 10:00 Temperature Pulse Rate 87 87 87 Respiratory Rate 28 H 25 H 25 H Blood Pressure Pulse Oximetry Oxygen Delivery Fraction of Inspired Oxygen 04/05/24 10:00 04/05/24 10:00 04/05/24 11:28 Temperature 98.4 F Pulse Rate 87 87 90 Respiratory Rate 25 H Blood Pressure 105/63 Pulse Oximetry 96 96 Oxygen Delivery Mechanical Ventilation Fraction of Inspired Oxygen 35 04/05/24 11:34 04/05/24 11:45 04/05/24 12:00 Temperature Pulse Rate 100 108 H 97 Respiratory Rate 28 H Blood Pressure Pulse Oximetry Oxygen Delivery Fraction of Inspired Oxygen 04/05/24 12:00 04/05/24 12:00 04/05/24 12:00 Temperature Pulse Rate 96 96 Respiratory Rate 26 H 26 H Blood Pressure Pulse Oximetry Oxygen Delivery Mechanical Ventilation Fraction of Inspired Oxygen 35 04/05/24 12:00 04/05/24 12:00 04/05/24 13:20 Temperature 97.9 F Pulse Rate 96 100 Respiratory Rate 25 H Blood Pressure 126/76 Pulse Oximetry 96 95 Oxygen Delivery Mechanical Ventilation Fraction of Inspired Oxygen 35 35 Intake/Output Intake/Output: Intake & Output 04/02/24 04/03/24 04/04/24 04/05/24 23:59 23:59 23:59 23:59 Intake Total 1573.7 2708.7 2233.2 1021.5 Output Total 039 109 4956 525 Balance 918.7 2058.7 454.2 496.5 Meds/Results Medications: Active Medications Generic Name Dose Route Start Last Admin Trade Name Freq PRN Reason Stop Dose Admin Acetaminophen 650 mg 03/27/24 14:41 03/29/24 05:11 Acetaminophen 325 Mg Tablet PO 650 mg Q4H PRN Administration Mild Pain (1-3) or Fever Amiodarone HCl 400 mg 04/01/24 10:40 04/03/24 08:31 Amiodarone Hcl 200 Mg Tablet PO 400 mg DAILY LAVERNE Administration Apixaban 5 mg 03/27/24 12:35 04/05/24 07:54 Apixaban 5 Mg Tablet PO 5 mg Q12HR LAVERNE Administration Cyanocobalamin 1,000 mcg 03/27/24 17:00 04/05/24 07:54 Cyanocobalamin 1,000 Mcg Tablet PO 1,000 mcg BID LAVERNE Administration Dextrose 12.5 gm 03/27/24 08:57 Dextrose 50% 25 Gm/50 Ml Syringe IV PUSH PRN PRN Hypoglycemia Protocol Glucagon 1 mg 03/27/24 08:57 Glucagon For Inj 1 Mg Vial IM PRN PRN Hypoglycemia Protocol Glucose 15 gm 03/27/24 08:57 Glucose Oral Gel 15 Gm Of Glucse In 37.5 Gm Tube PO PRN PRN Hypoglycemia Protocol Dextrose 1,000 mls @ 100 mls/hr 03/27/24 08:57 Dextrose 5% 1,000 Ml IVPB PRN PRN Hypoglycemia Protocol Fentanyl Citrate 2,500 mcg in 250 mls @ 7.5 mls/hr 03/28/24 15:45 04/05/24 12:00 Fentanyl 2,500 Mcg/Ns 250 Ml IV CONT 75 mcg/hr .[id number] LAVERNE 7.5 mls/hr Titration Protocol 75 MCG/HR Midazolam HCl 100 mg in 100 mls @ 3 mls/hr 03/28/24 19:30 04/05/24 12:00 Versed 100 Mg/Ns 100 Ml IV CONT 3 mg/hr .[id number] LAVERNE 3 mls/hr Titration Protocol 3 MG/HR Albumin Human 50 mls @ 999 mls/hr 04/03/24 09:19 04/04/24 10:06 Albutein IVPB 05/03/24 09:18 999 mls/hr Q10M PRN Administration HYPOTENSION Cefepime HCl 2 gm in 50 mls @ 100 mls/hr 04/04/24 15:00 04/04/24 15:16 Maxipime 2 Gm/Ns 50 Ml IVPB 04/06/24 23:59 Infused Q24H LAVERNE Infusion Insulin Aspart 4 - 8 units 03/29/24 13:00 04/05/24 12:16 Insulin Aspart (*Bkc) 100 Units/Ml SUB-Q Not Given Q4HR [facility] Protocol Insulin Glargine 60 units 04/01/24 09:00 04/05/24 08:07 Insulin Glargine (*Bkc) 100 Units/Ml SUB-Q 60 units Q12HR LAVERNE Administration Metoprolol Tartrate 25 mg 04/01/24 10:40 04/05/24 11:34 Metoprolol Tartrate 25 Mg Tablet PO 25 mg Q6HR LAVERNE Administration Multi-Ingred Cream/Lotion/Oil/Oint 1 applic 03/28/24 21:00 04/05/24 08:00 Mineral Oil/White Petrolatum Ointment EACH EYE 1 applic Q12HR LAVERNE Administration Pantoprazole Sodium 40 mg 03/29/24 09:00 04/05/24 07:56 Pantoprazole Sodium Iv 40 Mg Vial IV PUSH 40 mg DAILY LAVERNE Administration Polyethylene Glycol 17 gm 04/04/24 11:45 04/05/24 07:56 Polyethylene Glycol 3350 17 Gm Powd.Pack PO 17 gm QAM LAVERNE Administration Rosuvastatin Calcium 20 mg 03/28/24 09:00 03/31/24 09:28 Rosuvastatin 20 Mg Tablet PO Not Given DAILY LAVERNE Sodium Chloride 10 ml 03/28/24 22:00 04/05/24 05:54 Central Line Flush IV PUSH 10 ml Q8HR LAVERNE Administration Sodium Chloride 10 ml 03/28/24 16:14 Central Line Flush IV PUSH PRN PRN with TPN bag changes Sodium Chloride 20 ml 03/28/24 16:14 Central Line Flush IV PUSH PRN PRN after blood draws Radiology Results: ITS Impressions Chest CTA 03/27/24 06:41 Impression: No evidence of pulmonary embolus, aortic dissection, or aortic aneurysm. Extensive right lower lobe pneumonia. Probable mildly prominent reactive lymphadenopathy the right axilla and subcarinal region. Head CT 03/28/24 22:59 IMPRESSION: 1. Normal brain. Abdomen X-Ray 03/29/24 08:59 IMPRESSION: 1. Lines and tubes in expected positions. 2. Diffuse bilateral lung disease, right greater than left, consistent with mult ifocal pneumonia. Renal Ultrasound 03/31/24 15:34 IMPRESSION: No hydronephrosis. Perinephric fluid collection adjacent to the left lower pole. Abdomen Ultrasound 03/31/24 15:39 IMPRESSION: Status post cholecystectomy. Pancreas poorly visualized. Otherwise normal abdom inal ultrasound findings. Chest X-Ray 04/05/24 06:51 Impression: Moderate pulmonary edema pattern. Correlate clinically for pneumonia. Support tubes, as above. Labs Labs: Laboratory Results - last 24 hr 04/04/24 04/04/24 04/05/24 16:09 20:27 00:17 WBC RBC Hgb Hct MCV MCH MCHC RDW Plt Count MPV Puncture Site ABG pH ABG pCO2 ABG pO2 ABG PO2/FiO2 Ratio ABG HCO3 ABG O2 Saturation ABG O2 Content ABG Base Excess A-a Gradient Oxyhemoglobin Carboxyhemoglobin Methemoglobin Reduced Hemoglobin Total Hemoglobin O2 Delivery Device O2 Liters/Min Minute Volume Vent Rate Vent Mode FiO2 Tidal Volume PEEP Peak Inspir Pressure Pressure Support Sodium Potassium Chloride Carbon Dioxide Anion Gap BUN Creatinine Estim Creat Clear Calc Estimated GFR Glucose POC Capillary Glucose 178 H 231 H 193 H Calcium Phosphorus Magnesium Total Bilirubin AST ALT Alkaline Phosphatase Total Protein Albumin 04/05/24 04/05/24 04/05/24 04:30 05:08 05:44 WBC 14.5 H RBC 3.61 L Hgb 11.1 L Hct 33.0 L MCV 91.4 MCH 30.7 MCHC 33.6 RDW 17.5 H Plt Count 247 MPV 10.2 Puncture Site Right radial ABG pH 7.430 ABG pCO2 46.5 H ABG pO2 84.3 ABG PO2/FiO2 Ratio 2.41 ABG HCO3 30.2 H ABG O2 Saturation 96.5 ABG O2 Content 15.9 L ABG Base Excess 5.1 A-a Gradient 111.2 Oxyhemoglobin 95.6 Carboxyhemoglobin 0.6 Methemoglobin 0.3 Reduced Hemoglobin 3.5 Total Hemoglobin 11.8 L O2 Delivery Device Ventilator O2 Liters/Min Not Reportable Minute Volume Not Reportable Vent Rate 24 Vent Mode Cmv FiO2 35 Tidal Volume 400 PEEP 10 Peak Inspir Pressure Not Reportable Pressure Support Not Reportable Sodium 137 Potassium 4.4 Chloride 97 L Carbon Dioxide 31 H Anion Gap 9 BUN 93 H D Creatinine 2.61 H Estim Creat Clear Calc 30 Estimated GFR 18 L Glucose 177 H POC Capillary Glucose 201 H Calcium 8.1 L Phosphorus 5.0 H Magnesium 2.4 H Total Bilirubin 0.9 AST 63 H ALT 565 H Alkaline Phosphatase 224 H Total Protein 6.0 L Albumin 2.8 L 04/05/24 04/05/24 08:06 11:31 WBC RBC Hgb Hct MCV MCH MCHC RDW Plt Count MPV Puncture Site ABG pH ABG pCO2 ABG pO2 ABG PO2/FiO2 Ratio ABG HCO3 ABG O2 Saturation ABG O2 Content ABG Base Excess A-a Gradient Oxyhemoglobin Carboxyhemoglobin Methemoglobin Reduced Hemoglobin Total Hemoglobin O2 Delivery Device O2 Liters/Min Minute Volume Vent Rate Vent Mode FiO2 Tidal Volume PEEP Peak Inspir Pressure Pressure Support Sodium Potassium Chloride Carbon Dioxide Anion Gap BUN Creatinine Estim Creat Clear Calc Estimated GFR Glucose POC Capillary Glucose 148 H 144 H Calcium Phosphorus Magnesium Total Bilirubin AST ALT Alkaline Phosphatase Total Protein Albumin
[2024-04-05] MEDS: CEFEPIME 2 GM/NS 50 ML 2 GM/50 ML BAG IVPB (14:23)
[2024-04-05 16:08] LABS: Glucose Point of Care 154 mg/dl (65-105)
[2024-04-05] MEDS: MIDAZOLAM 100MG/NS 100ML(*CRX) 100 MG/100 ML BAG IV CONT (20:55)
[2024-04-05 21:16] LABS: Glucose Point of Care 179 mg/dl (65-105)
[2024-04-06] VITALS (36 sets, daily range): BP systolic 78–127; BP diastolic 53–107; PULSE 35–113; RESP 18–28; TEMP 36.6–37; O2SAT 93–96
[2024-04-06] MEDS: METOPROLOL TARTRATE 25 MG TABLET PO ×4 (00:58→17:56)
[2024-04-06 01:22] LABS: Glucose Point of Care 178 mg/dl (65-105)
[2024-04-06] MEDS: ALTEPLASE 2 MG VIAL (CATHFLO) IV PUSH (03:22)
[2024-04-06 04:46] LABS: Base Excess ABG 3.5 mEq/l (+/-2.0); Carboxyhemoglobin 0.2 % THb (0-2.0); Fractional Inspired Oxygen 35 %; HCO3 ABG 28.6 mEq/l (22.0-26.0); Methemoglobin ABG 0.3 %THb (0-1.5); Oxygen Content ABG 15.1 %vol (16.0-22.0); Oxygen Saturation ABG 97.6 % (95.0-100.0); Oxyhemoglobin 96.7 % THb (90.0-100.0); PCO2 ABG 45.4 mmHg (35.0-45.0); PO2 ABG 99.8 mmHg (80.0-100.0); PO2 FiO2 Ratio Arterial Blood 2.85 %; Reduced Hemoglobin 2.8 %THb (0-5.0); pH ABG 7.417 (7.350-7.450)
[2024-04-06 04:47] LABS: Device VENTILATOR; Modified Allen's Test Pass; Site Drawn RIGHT RADIAL
[2024-04-06 04:48] LABS: Arterial Blood Gas PEEP 10 cmH2O; Arterial Blood Gas Tidal Volume 400 ml; Arterial Blood Gas Vent Mode CMV; Arterial Blood Gas Ventilator rate 24 /MIN
[2024-04-06 06:41] LABS: Hematocrit 31.2 % (37.0-47.0); Hemoglobin 10.2 g/dL (12.0-15.0); Mean Corpuscular HGB Conc 32.7 g/dl (32-36); Mean Corpuscular Hemoglobin 30.3 pg (26-34); Mean Corpuscular Volume 92.6 fl (80-100); Mean Platelet Volume 9.8 fl (7.4-10.4); Platelet Count Result 242 k/mm3 (150-375); Red Blood Count 3.37 M/mm3 (4.2-5.4); Red Cell Distribution Width 17.4 % (11.5-14.5); White Blood Count 12.9 K/mm3 (4.5-10.0)
[2024-04-06] MEDS: CENTRAL LINE FLUSH 10 ML IV PUSH ×3 (06:44→21:08)
[2024-04-06 06:54] LABS: Triglycerides 60 mg/dL (<150)
[2024-04-06 07:00] LABS: Alanine Aminotransferase 343 U/L (6-35); Albumin Level 2.7 g/dL (3.5-5.1); Alkaline Phosphatase 177 U/L (38-126); Anion Gap 9 mmol/L (4-12); Aspartate Amino Transferase 46 U/L (14-36); Bilirubin,Total 0.7 mg/dL (0.2-1.3); Blood Urea Nitrogen 116 mg/dL (7-17); Carbon Dioxide 31 mmol/L (22-30); Chloride 97 mmol/L (98-107); Estimated CRCL calculation 25 ml/min; Estimated Glomerular Filt Rate 14; Glucose 169 mg/dL (65-110); Magnesium 2.6 mg/dL (1.6-2.3); Phosphorus 6.8 mg/dL (2.5-4.5); Potassium 4.6 mmol/L (3.4-5.0); Sodium 137 mmol/L (137-145)
[2024-04-06 07:02] LABS: Glucose Point of Care 178 mg/dl (65-105)
[2024-04-06 07:59] LABS: Glucose Point of Care 176 mg/dl (65-105)
[2024-04-06] MEDS: PANTOPRAZOLE SODIUM IV 40 MG VIAL IV PUSH (09:30)
[2024-04-06] MEDS: APIXABAN 5 MG TABLET PO ×2 (09:30→23:15)
[2024-04-06] MEDS: MINERAL OIL/WHITE PETROLATUM OINTMENT 1 APPLIC EACH EYE ×2 (09:30→21:08)
[2024-04-06] MEDS: CYANOCOBALAMIN 1,000 MCG TABLET 1000 MCG PO ×2 (09:30→17:56)
[2024-04-06] MEDS: polyethylene glycoL 3350 17 GM POWD.PACK PO (09:31)
[2024-04-06] MEDS: INSULIN GLARGINE (*BKC) 100 UNITS/ML 60 UNITS SUB-Q ×2 (09:31→21:07)
--- NOTE | 2024-04-06 11:20 | PCFNICU ---
ICU Rounding Note: Pt current nutrition is Vital AF 1.2 @ 60 ml/h with flushes 30 ml q 4 hours. Nutrition recommendation: Modify tube feeding to Nepro @ 40 ml/h with 30 ml flushes to decrease fluid volume Last recorded weight is 157.8 kg. Bowel Motility: No BM since 03/26/24. Bowel regimen started Labs Reviewed: Hgb 10.2, Hct 31.2, Alb 2.7, GFR 14, BUN 116, Cre 3.2, Glu 169 Meds Noted: Fentanyl, versed, novolog, miralax, lactulose, bumex Skin: No pressure injuries Additional Notes: Pt requiring dialysis tomorrow, bumex today. Recommending to switch to volume restricted formula Nepro @ 40 ml/h to provide 1584 kcal, 71 g protein, 639 ml fluid. (Vital AF 1.2 @ 60 providing 1070 ml fluid.) Orders changed Following daily in ICU rounds. Will monitor weight, labs, skin, diet orders, meds, tube feeding tolerance every Thursday and Thursday. .
[2024-04-06] MEDS: LACTULOSE 20 GM/30 ML UDC FEED TUBE (12:31)
[2024-04-06 12:57] LABS: Glucose Point of Care 163 mg/dl (65-105)
--- NOTE | 2024-04-06 13:18 | P.PNNP_ITS ---
Progress Note: A&P Assessment and Plan (1) VINCENT (acute kidney injury): Code(s): N17.9 - Acute kidney failure, unspecified Status: Acute Assessment and Plan: * as noted by trend of labs since admission * normal creatinine at baseline and on admission * multifactorial etiology: * hemodynamic instability/shock * infection/sepsis (pneumonia + RSV) * ARB + HCTZ use prior to admission * contrast (CTA of chest on 03/27) * hypoxia * afib with RVR * prerenal factors (?) * evaluation to date noted: * renal ultrasound without hydro * urine electrolytes prerenal * urine eosinophils negative * CPK normal * initiated on CLINICAL PHARMACY COORDINATOR/dialysis on 04/02 * better urine output in the last 24 hours * s/p IV diuretics on 04/05 -- reasonable UOP but rise in BUN + creatinine noted * dialysis today for clearance * follow trend of repeat labs and UOP to assess for renal recovery (2) Acute hypoxic respiratory failure: Code(s): J96.01 - Acute respiratory failure with hypoxia Status: Acute Assessment and Plan: * seconeary to pneumonia, RSV, and possible CHF * CTA of chest noted: * no evidence of pulmonary embolus, aortic dissection, or aortic aneurysm * extensive right lower lobe pneumonia * probable mildly prominent reactive lymphadenopathy the right axilla and subcarinal region * emergently intubated 03/28 * completed course of steroids * follow respiratory status * weaning as tolerated (3) Septic shock: Code(s): A41.9 - Sepsis, unspecified organism; R65.21 - Severe sepsis with septic shock Status: Acute Assessment and Plan: * secondary to extensive pneumonia +/- RSV * on antibiotics * cultures negative to date * off pressors currently (4) Atrial fibrillation with RVR: Code(s): I48.91 - Unspecified atrial fibrillation Status: Acute Assessment and Plan: * rate control strategy * on Eliquis * Echo results noted * Cardiology following (5) Anemia: Code(s): D64.9 - Anemia, unspecified Status: Acute Assessment and Plan: * likely a manifestation of VINCENT and acute illness * no need for DANG at this time * follow trend of H/H (6) Community acquired pneumonia: Code(s): J18.9 - Pneumonia, unspecified organism Status: Acute Assessment and Plan: * as noted by admission imaging * culture data noted (negative to date) * on antibiotics (7) Elevated liver enzymes: Code(s): R74.8 - Abnormal levels of other serum enzymes Status: Acute Assessment and Plan: * thought to be secondary to shock liver * statin on hold * liver enzymes fluctuating * follow trend (8) Diabetes: Code(s): E11.9 - Type 2 diabetes mellitus without complications Status: Chronic Assessment and Plan: * follow accu-cheks * glycemic control per hospitalist/traffic control flagger Case discussed with Dr. Hill. Will continue to follow. L Subjective Date/time seen: 04/06/24 13:18 Interval history: Follow-up for acute kidney injury/acute renal failure (currently requiring hemodialysis). Remains intubated/sedated and on mechanical ventilation; reasonable response to IV bumex yesterday (1900cc urine output noted) but at the expense of renal function/creatinine which subsequently has risen; remains hemodynamically stable off vasopressor therapy; plan for dialysis treatment later today (more so for clearance due to elevated BUN and creatinine). Exam 2 Narrative: General: elderly but WD/WN female intubated/sedated and on mechanical ventilation Heart: IRRR, normal S1 and S2; no rub Lungs: coarse breath sounds; few crackles at bases Abdomen: soft, nontender, nondistended, positive bowel sounds Extremities: no cyanosis or clubbing; 1+ in UEs and LEs Skin: no rash Objective Data Vital Signs Vital Signs: Vital Signs Temp Pulse Resp BP Pulse Ox O2 Del Method FiO2 04/06/24 12:40 35 L 96 Mechanical Ventilation 35 04/06/24 12:31 94 04/06/24 12:00 81 19 04/06/24 12:00 83 18 04/06/24 12:00 30 04/06/24 12:00 83 04/06/24 12:00 85 21 H 94 Mechanical Ventilation 30 04/06/24 12:00 98.2 F 94 24 H 121/73 95 04/06/24 10:00 79 20 04/06/24 10:00 81 18 04/06/24 10:00 82 04/06/24 10:00 98.1 F 91 22 H 119/69 93 04/06/24 09:39 77 95 Mechanical Ventilation 35 04/06/24 08:00 82 21 H 04/06/24 08:00 82 18 04/06/24 08:00 30 04/06/24 08:00 72 04/06/24 08:00 82 24 H 94 Mechanical Ventilation 30 04/06/24 08:00 97.9 F 88 27 H 122/58 L 95 04/06/24 06:40 90 04/06/24 06:00 84 28 H 04/06/24 06:00 84 28 H 04/06/24 06:00 98.3 F 84 28 H 102/62 95 04/06/24 06:00 84 04/06/24 04:33 87 96 Mechanical Ventilation 35 04/06/24 04:00 78 27 H 04/06/24 04:00 78 27 H 04/06/24 04:00 98.6 F 78 27 H 94/62 L 96 04/06/24 04:00 78 04/06/24 03:30 30 04/06/24 03:12 95 Mechanical Ventilation 35 04/06/24 02:00 98.3 F 90 24 H 110/65 93 04/06/24 02:00 90 04/06/24 02:00 90 24 H 04/06/24 02:00 90 24 H 04/06/24 01:55 98 94 Mechanical Ventilation 35 04/06/24 00:58 111 H 04/06/24 00:00 98.1 F 103 H 18 119/73 95 04/06/24 00:00 103 H 04/06/24 00:00 30 04/06/24 00:00 95 Mechanical Ventilation 35 04/06/24 00:00 103 H 20 04/06/24 00:00 103 H 20 04/05/24 23:06 112 H 95 Mechanical Ventilation 35 04/05/24 22:00 87 20 04/05/24 22:00 87 20 04/05/24 22:00 98.1 F 87 20 118/73 95 04/05/24 22:00 87 04/05/24 20:55 77 25 H 04/05/24 20:55 77 25 H 04/05/24 20:40 82 95 Mechanical Ventilation 35 04/05/24 20:00 83 25 H 04/05/24 20:00 98.6 F 84 26 H 103/59 L 96 04/05/24 20:00 84 04/05/24 20:00 30 04/05/24 20:00 96 Mechanical Ventilation 35 04/05/24 20:00 83 25 H Intake/Output Intake/Output: Intake & Output 04/03/24 04/04/24 04/05/24 04/06/24 23:59 23:59 23:59 23:59 Intake Total 2708.7 2233.2 2020.1 1683.6 Output Total 650 1779 1300 1900 Balance 2058.7 454.2 720.1 -216.4 Meds/Results Medications: Active Medications Generic Name Dose Route Start Last Admin Trade Name Freq PRN Reason Stop Dose Admin Acetaminophen 650 mg 03/27/24 14:41 03/29/24 05:11 Acetaminophen 325 Mg Tablet PO 650 mg Q4H PRN Administration Mild Pain (1-3) or Fever Alteplase, Recombinant 2 mg 04/06/24 03:11 04/06/24 03:22 Alteplase 2 Mg Vial (Cathflo) IV PUSH 2 mg ONCE PRN Administration Line Occlusion Amiodarone HCl 400 mg 04/01/24 10:40 04/03/24 08:31 Amiodarone Hcl 200 Mg Tablet PO 400 mg DAILY LAVERNE Administration Apixaban 5 mg 03/27/24 12:35 04/06/24 09:30 Apixaban 5 Mg Tablet PO 5 mg Q12HR LAVERNE Administration Cyanocobalamin 1,000 mcg 03/27/24 17:00 04/06/24 17:56 Cyanocobalamin 1,000 Mcg Tablet PO 1,000 mcg BID LAVERNE Administration Dextrose 12.5 gm 03/27/24 08:57 Dextrose 50% 25 Gm/50 Ml Syringe IV PUSH PRN PRN Hypoglycemia Protocol Glucagon 1 mg 03/27/24 08:57 Glucagon For Inj 1 Mg Vial IM PRN PRN Hypoglycemia Protocol Glucose 15 gm 03/27/24 08:57 Glucose Oral Gel 15 Gm Of Glucse In 37.5 Gm Tube PO PRN PRN Hypoglycemia Protocol Dextrose 1,000 mls @ 100 mls/hr 03/27/24 08:57 Dextrose 5% 1,000 Ml IVPB PRN PRN Hypoglycemia Protocol Fentanyl Citrate 2,500 mcg in 250 mls @ 7.5 mls/hr 03/28/24 15:45 04/06/24 18:53 Fentanyl 2,500 Mcg/Ns 250 Ml IV CONT 04/16/24 23:59 75 mcg/hr .[id number] LAVERNE 7.5 mls/hr Administration Protocol 75 MCG/HR Midazolam HCl 100 mg in 100 mls @ 3 mls/hr 03/28/24 19:30 04/06/24 18:00 Versed 100 Mg/Ns 100 Ml IV CONT 3 mg/hr .[id number] LAVERNE 3 mls/hr Titration Protocol 3 MG/HR Albumin Human 50 mls @ 999 mls/hr 04/03/24 09:19 04/04/24 10:06 Albutein IVPB 05/03/24 09:18 999 mls/hr Q10M PRN Administration HYPOTENSION Cefepime HCl 2 gm in 50 mls @ 100 mls/hr 04/04/24 15:00 04/06/24 15:13 Maxipime 2 Gm/Ns 50 Ml IVPB 04/06/24 23:59 100 mls/hr Q24H LAVERNE Administration Insulin Aspart 4 - 8 units 03/29/24 13:00 04/06/24 17:14 Insulin Aspart (*Bkc) 100 Units/Ml SUB-Q Not Given Q4HR LAVERNE Protocol Insulin Glargine 60 units 04/01/24 09:00 04/06/24 09:31 Insulin Glargine (*Bkc) 100 Units/Ml SUB-Q 60 units Q12HR LAVERNE Administration Metoprolol Tartrate 25 mg 04/01/24 10:40 04/06/24 17:56 Metoprolol Tartrate 25 Mg Tablet PO 25 mg Q6HR LAVERNE Administration Multi-Ingred Cream/Lotion/Oil/Oint 1 applic 03/28/24 21:00 04/06/24 09:30 Mineral Oil/White Petrolatum Ointment EACH EYE 1 applic Q12HR LAVERNE Administration Pantoprazole Sodium 40 mg 03/29/24 09:00 04/06/24 09:30 Pantoprazole Sodium Iv 40 Mg Vial IV PUSH 40 mg DAILY LAVERNE Administration Polyethylene Glycol 17 gm 04/04/24 11:45 04/06/24 09:31 Polyethylene Glycol 3350 17 Gm Powd.Pack PO 17 gm QAM LAVERNE Administration Rosuvastatin Calcium 20 mg 03/28/24 09:00 03/31/24 09:28 Rosuvastatin 20 Mg Tablet PO Not Given DAILY LAVERNE Sodium Chloride 10 ml 03/28/24 22:00 04/06/24 13:22 Central Line Flush IV PUSH 10 ml Q8HR LAVERNE Administration Sodium Chloride 10 ml 03/28/24 16:14 Central Line Flush IV PUSH PRN PRN with TPN bag changes Sodium Chloride 20 ml 03/28/24 16:14 Central Line Flush IV PUSH PRN PRN after blood draws Radiology Results: ITS Impressions Chest CTA 03/27/24 06:41 Impression: No evidence of pulmonary embolus, aortic dissection, or aortic aneurysm. Extensive right lower lobe pneumonia. Probable mildly prominent reactive lymphadenopathy the right axilla and subcarinal region. Head CT 03/28/24 22:59 IMPRESSION: 1. Normal brain. Abdomen X-Ray 03/29/24 08:59 IMPRESSION: 1. Lines and tubes in expected positions. 2. Diffuse bilateral lung disease, right greater than left, consistent with multifocal pneumonia. Renal Ultrasound 03/31/24 15:34 IMPRESSION: No hydronephrosis. Perinephric fluid collection adjacent to the left lower pole. Abdomen Ultrasound 03/31/24 15:39 IMPRESSION: Status post cholecystectomy. Pancreas poorly visualized. Otherwise normal abdominal ultrasound findings. Chest X-Ray 04/06/24 06:30 Impression: Mild pulmonary edema pattern. Support tubes, as above. Labs Labs: Laboratory Tests 04/06/24 06:37 04/06/24 06:37 Calcium 8.0 L Phosphorus 6.8 H Magnesium 2.6 H Total Bilirubin 0.7 AST 46 H ALT 343 H Alkaline Phosphatase 177 H Total Protein 5.0 L Albumin 2.7 L Triglycerides 60
[2024-04-06] MEDS: CEFEPIME 2 GM/NS 50 ML 2 GM/50 ML BAG IVPB (15:13)
--- NOTE | 2024-04-06 15:34 | WPDINTPN ---
Progress Note: A&P Assessment and Plan (1) Acute hypoxic respiratory failure: Code(s): J96.01 - Acute respiratory failure with hypoxia Status: Acute Assessment and Plan: Acute hypoxic respiratory failure secondary to pneumonia and congestive heart failure Patient now emergently intubated 03/28 -03/28: Repeat PCR was positive RSV -continue isolation -chest x-ray and ABGs reviewed this morning -Currently PEEP to 10 and FiO2 down to 30% -patient will require additional fluid removal before considering weaning from mechanical ventilation -sedated with fentanyl and Versed infusion, maintain RASS of 0 to -2, daily sedation vacation -status post stress dose steroids. -discussed with Nephrology, patient did have if improved urine output over the last 24 hours, and since she did not tolerate dialysis well, cartridge assembling machine adjuster recommended commended Bumex 2 mg IV x1. If she does not respond well, will have to dialyze the patient 04/06: Patient did respond to Bumex that was given yesterday with 1900 mL urine output in the last 24 hours 03/27 CTA chest Impression: No evidence of pulmonary embolus, aortic dissection, or aortic aneurysm. Extensive right lower lobe pneumonia. Probable mildly prominent reactive lymphadenopathy the right axilla and subcarinal region. (2) Sepsis: Code(s): A41.9 - Sepsis, unspecified organism Status: Acute Assessment and Plan: Sepsis/septic shock secondary to community-acquired pneumonia, initial procalcitonin level 4.4 Blood cultures ordered and negative till now Sputum cultures negative Urine Legionella and pneumococcal antigen negative Status post cefepime and azithromycin MRSA screen negative. Vancomycin discontinued (3) Diabetes: Code(s): E11.9 - Type 2 diabetes mellitus without complications Status: Chronic Assessment and Plan: Status post insulin infusion Currently on Lantus to 60 units q.12 Steroids discontinued and dialysis being started anticipate improvement in blood sugars, off insulin infusion - Continue tube feeds (4) Atrial fibrillation with RVR: Code(s): I48.91 - Unspecified atrial fibrillation Status: Acute Assessment and Plan: Patient was amiodarone infusion which has been switched to p.o. amiodarone per tube metoprolol by Cardiology Patient is anticoagulated with Eliquis Echo Summary 1. Very technically difficult study with limited views. 2. Left ventricular chamber dimension is normal. 3. Left ventricular systolic function is at lower limits of normal, estimated at 50-55%. 4. Left atrial chamber dimension is moderately enlarged (5) Community acquired pneumonia: Code(s): J18.9 - Pneumonia, unspecified organism Status: Acute Assessment and Plan: See above (6) Altered mental status: Code(s): R41.82 - Altered mental status, unspecified Status: Acute Assessment and Plan: Likely secondary to hypoxia. Patient had CT scan of the head recently done which was unremarkable Repeat head CT on 03/28 was again unremarkable Ammonia levels within normal limit TSH was normal -04/05: patient did open her eyes and follows simple commands and lower extremity (7) Electrolyte abnormality: Code(s): E87.8 - Other disorders of electrolyte and fluid balance, not elsewhere classified Status: Acute Assessment and Plan: Improved after replacement -continue to monitor (8) Shock: Code(s): R57.9 - Shock, unspecified Status: Acute Assessment and Plan: RESOLVED Patient was on Levophed and vasopressin infusion which are currently off -off stress dose steroid - status post 25% albumin -Hold further crystalloids (9) VINCENT (acute kidney injury): Code(s): N17.9 - Acute kidney failure, unspecified Status: Acute Assessment and Plan: Increase in creatinine and drop in urine output likely secondary to shock Patient received IV fluids and 5% albumin earlier in the course. norm CK level Renal ultrasound showed No hydronephrosis. Perinephric fluid collection adjacent to the left lower pole. Nephrology following Continued maintain mean arterial pressure with vasopressors if needed 2/ Discussed with cartridge assembling machine adjuster and patient's family. Discussed risks and benefits of starting hemodialysis. Business Administration Professor and patient's family in agreement. Patient's consented to proceed. Temporary dialysis catheter placed. Patient was dialyzed. Further dialysis per as per Nephrology -04/04: Patient did not tolerate dialysis as she became tachypneic, tachycardic and hypotensive requiring restarting Levophed. -04/05: Business Administration Professor recommended giving Bumex 2 mg IV x1 since patient had slightly improved urine output over the last 24 hours and a creatinine and BUN trending downward, - will monitor urine output, renal function and electrolytes 04/06: Discuss with Nephrology, patient received dialysis today with no removal of fluid (10) Elevated liver enzymes: Code(s): R74.8 - Abnormal levels of other serum enzymes Status: Acute Assessment and Plan: Patient is status post cholecystectomy Elevated AST ALT and alkaline phosphatase likely secondary to shock liver Hold statin Right upper quadrant ultrasound - Status post cholecystectomy. Pancreas poorly visualized. Otherwise normal abdominal ultrasound findings. While hepatitis panel was negative Levels were increasing I have discussed with Cardiology regarding potential amiodarone related hepatotoxicity. Patient was on IV amiodarone earlier for rate control as patient was in AFib with RVR. It was switched to p.o. as the rate improved. 2/2 amiodarone was held GI consult and following 2/5 levels improving. Monitor Plan DVT prophylaxis -Eliquis Stress ulcer prophylaxis -protonix Nutrition -tolerating tube feeds, no bowel movements, currently on MiraLax, added lactulose x1 Code Status - Full Code Total Critical Care Time - 35 minutes 04/06: Discussed with and daughter on separate occasions and updated them with patient's condition and plan of care. Is aware that she will be receiving dialysis today. If she continues to make good urine output, will try spontaneous breathing trial in the morning. I answered all the question Due to a high probability of clinically significant, life threatening deterioration, the patient required my highest level of preparedness to intervene emergently and I personally spent this critical care time directly and personally managing the patient. This critical care time included obtaining a history; examining the patient; pulse oximetry; ordering and review of studies; arranging urgent treatment with development of a management plan; evaluation of patient's response to treatment; frequent reassessment; and discussions with other providers. It was exclusive of separately billable procedures and treating other patients and teaching time. Please see Assessment and Plan section and the rest of the note for further information on patient assessment and treatment This dictation may have been done utilizing a voice recognition system. Attempts have been made to correct errors. However, there may be uncorrected grammatical, spelling, and recognitions errors present. Subjective Date/time seen: 04/06/24 15:34 Interval history: 68yo female with AFib s/p SHAYY cardioversion that was unsuccessful, KAREN not using CPAP, DM, HTN and endometrial cancer who presents with shortness of breath, leg swelling and weight gain over the past few weeks. Now in with respiratory failure secondary to pneumonia with septic shock. Intubated and on mechanical ventilation. RSV positive, acute kidney injury status post dialysis catheter and dialysis 04/06/2024: Patient seen and examined the ICU, remains intubated on CMV where ventilation, 35% FiO2 and peep of 10. Sedated with fentanyl and Versed infusion, patient does open her eyes and follows simple commands in upper and lower extremities. Patient responded well to Bumex yesterday with 1900 mL in urine output in the last 24 hours. Patient has been hemodynamically stable, afebrile. Creatinine and BUN increase this morning. Review of Systems Review of Systems: ROS unobtainable: Yes unobtainable due to endotracheal tube, unobtainable due to medical condition and unobtainable due to mental status Exam Narrative: General: Pt is now sedated, intubated and on mechanical ventilation Lungs/Chest: Coarse breath sounds bilaterally, no wheezing, decreased air entry at bases Cardiac: Irregularly irregular, heart rates in the 90s to 100s Circulation: Pedal pulses are intact and symmetrical. Abdomen: Normoactive bowel sounds bowel sounds. Morbidly Obese. Soft. NT. ND. Extremities: No clubbing, cyanosis, bilateral upper and lower extremity edema : Can in place Neurologic: Patient is intubated and sedated, opens her eyes, follows simple command in all extremities, pupils equal and reactive to light Objective Data Vital Signs Vital Signs: Vital Signs - 24 hr 04/05/24 16:00 04/05/24 16:00 04/05/24 16:00 Temperature Pulse Rate 106 H 89 89 Respiratory Rate 23 H 23 H Blood Pressure Pulse Oximetry Oxygen Delivery Fraction of Inspired Oxygen 04/05/24 16:00 04/05/24 16:00 04/05/24 16:00 Temperature 98.3 F Pulse Rate 89 Respiratory Rate 23 H Blood Pressure 119/71 Pulse Oximetry 94 Oxygen Delivery Mechanical Ventilation Fraction of Inspired Oxygen 35 35 04/05/24 16:49 04/05/24 17:17 04/05/24 18:00 Temperature Pulse Rate 87 108 H 87 Respiratory Rate 23 H Blood Pressure Pulse Oximetry 94 Oxygen Delivery Mechanical Ventilation Fraction of Inspired Oxygen 35 04/05/24 18:00 04/05/24 18:00 04/05/24 18:00 Temperature 98.5 F Pulse Rate 87 87 87 Respiratory Rate 23 H 23 H Blood Pressure 111/64 Pulse Oximetry 95 Oxygen Delivery Fraction of Inspired Oxygen 04/05/24 20:00 04/05/24 20:00 04/05/24 20:00 Temperature Pulse Rate 83 Respiratory Rate 25 H Blood Pressure Pulse Oximetry 96 Oxygen Delivery Mechanical Ventilation Fraction of Inspired Oxygen 35 30 04/05/24 20:00 04/05/24 20:00 04/05/24 20:00 Temperature 98.6 F Pulse Rate 84 84 83 Respiratory Rate 26 H 25 H Blood Pressure 103/59 L Pulse Oximetry 96 Oxygen Delivery Fraction of Inspired Oxygen 04/05/24 20:40 04/05/24 20:55 04/05/24 20:55 Temperature Pulse Rate 82 77 77 Respiratory Rate 25 H 25 H Blood Pressure Pulse Oximetry 95 Oxygen Delivery Mechanical Ventilation Fraction of Inspired Oxygen 35 04/05/24 22:00 04/05/24 22:00 04/05/24 22:00 Temperature 98.1 F Pulse Rate 87 87 87 Respiratory Rate 20 20 Blood Pressure 118/73 Pulse Oximetry 95 Oxygen Delivery Fraction of Inspired Oxygen 04/05/24 22:00 04/05/24 23:06 04/06/24 00:00 Temperature Pulse Rate 87 112 H 103 H Respiratory Rate 20 20 Blood Pressure Pulse Oximetry 95 Oxygen Delivery Mechanical Ventilation Fraction of Inspired Oxygen 35 04/06/24 00:00 04/06/24 00:00 04/06/24 00:00 Temperature Pulse Rate 103 H Respiratory Rate 20 Blood Pressure Pulse Oximetry 95 Oxygen Delivery Mechanical Ventilation Fraction of Inspired Oxygen 35 30 04/06/24 00:00 04/06/24 00:00 04/06/24 00:58 Temperature 98.1 F Pulse Rate 103 H 103 H 111 H Respiratory Rate 18 Blood Pressure 119/73 Pulse Oximetry 95 Oxygen Delivery Fraction of Inspired Oxygen 04/06/24 01:55 04/06/24 02:00 04/06/24 02:00 Temperature Pulse Rate 98 90 90 Respiratory Rate 24 H 24 H Blood Pressure Pulse Oximetry 94 Oxygen Delivery Mechanical Ventilation Fraction of Inspired Oxygen 35 04/06/24 02:00 04/06/24 02:00 04/06/24 03:12 Temperature 98.3 F Pulse Rate 90 90 Respiratory Rate 24 H Blood Pressure 110/65 Pulse Oximetry 93 95 Oxygen Delivery Mechanical Ventilation Fraction of Inspired Oxygen 35 04/06/24 03:30 04/06/24 04:00 04/06/24 04:00 Temperature 98.6 F Pulse Rate 78 78 Respiratory Rate 27 H Blood Pressure 94/62 L Pulse Oximetry 96 Oxygen Delivery Fraction of Inspired Oxygen 30 04/06/24 04:00 04/06/24 04:00 04/06/24 04:33 Temperature Pulse Rate 78 78 87 Respiratory Rate 27 H 27 H Blood Pressure Pulse Oximetry 96 Oxygen Delivery Mechanical Ventilation Fraction of Inspired Oxygen 35 04/06/24 06:00 04/06/24 06:00 04/06/24 06:00 Temperature 98.3 F Pulse Rate 84 84 84 Respiratory Rate 28 H 28 H Blood Pressure 102/62 Pulse Oximetry 95 Oxygen Delivery Fraction of Inspired Oxygen 04/06/24 06:00 04/06/24 06:40 04/06/24 08:00 Temperature 97.9 F Pulse Rate 84 90 88 Respiratory Rate 28 H 27 H Blood Pressure 122/58 L Pulse Oximetry 95 Oxygen Delivery Fraction of Inspired Oxygen 04/06/24 08:00 04/06/24 08:00 04/06/24 08:00 Temperature Pulse Rate 82 72 Respiratory Rate 24 H Blood Pressure Pulse Oximetry 94 Oxygen Delivery Mechanical Ventilation Fraction of Inspired Oxygen 30 30 04/06/24 08:00 04/06/24 08:00 04/06/24 09:39 Temperature Pulse Rate 82 82 77 Respiratory Rate 18 21 H Blood Pressure Pulse Oximetry 95 Oxygen Delivery Mechanical Ventilation Fraction of Inspired Oxygen 35 04/06/24 10:00 04/06/24 10:00 04/06/24 10:00 Temperature 98.1 F Pulse Rate 91 82 81 Respiratory Rate 22 H 18 Blood Pressure 119/69 Pulse Oximetry 93 Oxygen Delivery Fraction of Inspired Oxygen 04/06/24 10:00 04/06/24 12:00 04/06/24 12:00 Temperature 98.2 F Pulse Rate 79 94 85 Respiratory Rate 20 24 H 21 H Blood Pressure 121/73 Pulse Oximetry 95 94 Oxygen Delivery Mechanical Ventilation Fraction of Inspired Oxygen 30 04/06/24 12:00 04/06/24 12:00 04/06/24 12:00 Temperature Pulse Rate 83 83 Respiratory Rate 18 Blood Pressure Pulse Oximetry Oxygen Delivery Fraction of Inspired Oxygen 30 04/06/24 12:00 04/06/24 12:31 04/06/24 12:40 Temperature Pulse Rate 81 94 35 L Respiratory Rate 19 Blood Pressure Pulse Oximetry 96 Oxygen Delivery Mechanical Ventilation Fraction of Inspired Oxygen 35 04/06/24 14:00 04/06/24 14:00 04/06/24 14:00 Temperature 97.8 F Pulse Rate 81 80 82 Respiratory Rate 23 H 18 Blood Pressure 100/66 Pulse Oximetry 93 Oxygen Delivery Fraction of Inspired Oxygen 04/06/24 14:00 04/06/24 14:26 Temperature Pulse Rate 82 84 Respiratory Rate 21 H Blood Pressure Pulse Oximetry 94 Oxygen Delivery Mechanical Ventilation Fraction of Inspired Oxygen 35 Intake/Output Intake/Output: Intake & Output 04/03/24 04/04/24 04/05/24 04/06/24 23:59 23:59 23:59 23:59 Intake Total 2708.7 2233.2 2020.1 1065 Output Total 650 1779 1300 1150 Balance 2058.7 454.2 720.1 -85 Meds/Results Medications: Active Medications Generic Name Dose Route Start Last Admin Trade Name Freq PRN Reason Stop Dose Admin Acetaminophen 650 mg 03/27/24 14:41 03/29/24 05:11 Acetaminophen 325 Mg Tablet PO 650 mg Q4H PRN Administration Mild Pain (1-3) or Fever Alteplase, Recombinant 2 mg 04/06/24 03:11 04/06/24 03:22 Alteplase 2 Mg Vial (Cathflo) IV PUSH 2 mg ONCE PRN Administration Line Occlusion Amiodarone HCl 400 mg 04/01/24 10:40 04/03/24 08:31 Amiodarone Hcl 200 Mg Tablet PO 400 mg DAILY LAVERNE Administration Apixaban 5 mg 03/27/24 12:35 04/06/24 09:30 Apixaban 5 Mg Tablet PO 5 mg Q12HR LAVERNE Administration Cyanocobalamin 1,000 mcg 03/27/24 17:00 04/06/24 09:30 Cyanocobalamin 1,000 Mcg Tablet PO 1,000 mcg BID LAVERNE Administration Dextrose 12.5 gm 03/27/24 08:57 Dextrose 50% 25 Gm/50 Ml Syringe IV PUSH PRN PRN Hypoglycemia Protocol Glucagon 1 mg 03/27/24 08:57 Glucagon For Inj 1 Mg Vial IM PRN PRN Hypoglycemia Protocol Glucose 15 gm 03/27/24 08:57 Glucose Oral Gel 15 Gm Of Glucse In 37.5 Gm Tube PO PRN PRN Hypoglycemia Protocol Dextrose 1,000 mls @ 100 mls/hr 03/27/24 08:57 Dextrose 5% 1,000 Ml IVPB PRN PRN Hypoglycemia Protocol Fentanyl Citrate 2,500 mcg in 250 mls @ 7.5 mls/hr 03/28/24 15:45 04/06/24 14:00 Fentanyl 2,500 Mcg/Ns 250 Ml IV CONT 75 mcg/hr .[id number] LAVERNE 7.5 mls/hr Titration Protocol 75 MCG/HR Midazolam HCl 100 mg in 100 mls @ 3 mls/hr 03/28/24 19:30 04/06/24 14:00 Versed 100 Mg/Ns 100 Ml IV CONT 3 mg/hr .[id number] LAVERNE 3 mls/hr Titration Protocol 3 MG/HR Albumin Human 50 mls @ 999 mls/hr 04/03/24 09:19 04/04/24 10:06 Albutein IVPB 05/03/24 09:18 999 mls/hr Q10M PRN Administration HYPOTENSION Cefepime HCl 2 gm in 50 mls @ 100 mls/hr 04/04/24 15:00 04/06/24 15:13 Maxipime 2 Gm/Ns 50 Ml IVPB 04/06/24 23:59 100 mls/hr Q24H LAVERNE Administration Insulin Aspart 4 - 8 units 03/29/24 13:00 04/06/24 12:31 Insulin Aspart (*Bkc) 100 Units/Ml SUB-Q Not Given Q4HR LAVERNE Protocol Insulin Glargine 60 units 04/01/24 09:00 04/06/24 09:31 Insulin Glargine (*Bkc) 100 Units/Ml SUB-Q 60 units Q12HR LAVERNE Administration Metoprolol Tartrate 25 mg 04/01/24 10:40 04/06/24 12:31 Metoprolol Tartrate 25 Mg Tablet PO 25 mg Q6HR LAVERNE Administration Multi-Ingred Cream/Lotion/Oil/Oint 1 applic 03/28/24 21:00 04/06/24 09:30 Mineral Oil/White Petrolatum Ointment EACH EYE 1 applic Q12HR LAVERNE Administration Pantoprazole Sodium 40 mg 03/29/24 09:00 04/06/24 09:30 Pantoprazole Sodium Iv 40 Mg Vial IV PUSH 40 mg DAILY LAVERNE Administration Polyethylene Glycol 17 gm 04/04/24 11:45 04/06/24 09:31 Polyethylene Glycol 3350 17 Gm Powd.Pack PO 17 gm QAM LAVERNE Administration Rosuvastatin Calcium 20 mg 03/28/24 09:00 03/31/24 09:28 Rosuvastatin 20 Mg Tablet PO Not Given DAILY LAVERNE Sodium Chloride 10 ml 03/28/24 22:00 04/06/24 13:22 Central Line Flush IV PUSH 10 ml Q8HR LAVERNE Administration Sodium Chloride 10 ml 03/28/24 16:14 Central Line Flush IV PUSH PRN PRN with TPN bag changes Sodium Chloride 20 ml 03/28/24 16:14 Central Line Flush IV PUSH PRN PRN after blood draws Radiology Results: ITS Impressions Chest CTA 03/27/24 06:41 Impression: No evidence of pulmonary embolus, aortic dissection, or aortic aneurysm. Extensive right lower lobe pneumonia. Probable mildly prominent reactive lymphadenopathy the right axilla and subcarinal region. Head CT 03/28/24 22:59 IMPRESSION: 1. Normal brain. Abdomen X-Ray 03/29/24 08:59 IMPRESSION: 1. Lines and tubes in expected positions. 2. Diffuse bilateral lung disease, right greater than left, consistent with multifocal pneumonia. Renal Ultrasound 03/31/24 15:34 IMPRESSION: No hydronephrosis. Perinephric fluid collection adjacent to the left lower pole. Abdomen Ultrasound 03/31/24 15:39 IMPRESSION: Status post cholecystectomy. Pancreas poorly visualized. Otherwise normal abdominal ultrasound findings. Chest X-Ray 04/06/24 06:30 Impression: Mild pulmonary edema pattern. Support tubes, as above. Labs Labs: Laboratory Results - last 24 hr 04/05/24 04/05/24 04/06/24 15:59 21:06 01:00 WBC RBC Hgb Hct MCV MCH MCHC RDW Plt Count MPV Puncture Site ABG pH ABG pCO2 ABG pO2 ABG PO2/FiO2 Ratio ABG HCO3 ABG O2 Saturation ABG O2 Content ABG Base Excess A-a Gradient Oxyhemoglobin Carboxyhemoglobin Methemoglobin Reduced Hemoglobin Total Hemoglobin O2 Delivery Device O2 Liters/Min Minute Volume Vent Rate Vent Mode FiO2 Tidal Volume PEEP Peak Inspir Pressure Pressure Support Sodium Potassium Chloride Carbon Dioxide Anion Gap BUN Creatinine Estim Creat Clear Calc Estimated GFR Glucose POC Capillary Glucose 154 H 179 H 178 H Calcium Phosphorus Magnesium Total Bilirubin AST ALT Alkaline Phosphatase Total Protein Albumin Triglycerides 04/06/24 04/06/24 04/06/24 04:32 06:36 06:37 WBC 12.9 H RBC 3.37 L Hgb 10.2 L Hct 31.2 L MCV 92.6 MCH 30.3 MCHC 32.7 RDW 17.4 H Plt Count 242 MPV 9.8 Puncture Site Right radial ABG pH 7.417 ABG pCO2 45.4 H ABG pO2 99.8 ABG PO2/FiO2 Ratio 2.85 ABG HCO3 28.6 H ABG O2 Saturation 97.6 ABG O2 Content 15.1 L ABG Base Excess 3.5 A-a Gradient 97.0 Oxyhemoglobin 96.7 Carboxyhemoglobin 0.2 Methemoglobin 0.3 Reduced Hemoglobin 2.8 Total Hemoglobin 11.0 L O2 Delivery Device Ventilator O2 Liters/Min Not Reportable Minute Volume Not Reportable Vent Rate 24 Vent Mode Cmv FiO2 35 Tidal Volume 400 PEEP 10 Peak Inspir Pressure Not Reportable Pressure Support Not Reportable Sodium 137 Potassium 4.6 Chloride 97 L Carbon Dioxide 31 H Anion Gap 9 BUN 116 H D Creatinine 3.20 H Estim Creat Clear Calc 25 Estimated GFR 14 L Glucose 169 H POC Capillary Glucose 178 H Calcium 8.0 L Phosphorus 6.8 H Magnesium 2.6 H Total Bilirubin 0.7 AST 46 H ALT 343 H Alkaline Phosphatase 177 H Total Protein 5.0 L Albumin 2.7 L Triglycerides 60 04/06/24 04/06/24 07:56 12:31 WBC RBC Hgb Hct MCV MCH MCHC RDW Plt Count MPV Puncture Site ABG pH ABG pCO2 ABG pO2 ABG PO2/FiO2 Ratio ABG HCO3 ABG O2 Saturation ABG O2 Content ABG Base Excess A-a Gradient Oxyhemoglobin Carboxyhemoglobin Methemoglobin Reduced Hemoglobin Total Hemoglobin O2 Delivery Device O2 Liters/Min Minute Volume Vent Rate Vent Mode FiO2 Tidal Volume PEEP Peak Inspir Pressure Pressure Support Sodium Potassium Chloride Carbon Dioxide Anion Gap BUN Creatinine Estim Creat Clear Calc Estimated GFR Glucose POC Capillary Glucose 176 H 163 H Calcium Phosphorus Magnesium Total Bilirubin AST ALT Alkaline Phosphatase Total Protein Albumin Triglycerides Quality VTE Prophylaxis VTE prophylaxis: pharmacologic ordered
[2024-04-06 16:59] LABS: Glucose Point of Care 149 mg/dl (65-105)
[2024-04-06] MEDS: FENTANYL 2,500MCG/NS250ML(*CRX 2,500 MCG/250 ML BAG 7.5 MCG IV CONT (18:53)
[2024-04-06 20:52] LABS: Glucose Point of Care 164 mg/dl (65-105)
[2024-04-06] MEDS: ALBUMIN HUMAN 25% 12.5 GM/50ML 50 ML IVPB (22:10)
[2024-04-06 23:54] LABS: Glucose Point of Care 174 mg/dl (65-105)
[2024-04-07] VITALS (44 sets, daily range): BP systolic 87–127; BP diastolic 57–82; PULSE 80–126; RESP 22–28; TEMP 35–37.2; O2SAT 94–99
[2024-04-07 04:52] LABS: Glucose Point of Care 186 mg/dl (65-105)
[2024-04-07] MEDS: MIDAZOLAM 100MG/NS 100ML(*CRX) 100 MG/100 ML BAG IV CONT (05:00)
[2024-04-07 05:11] LABS: Alveolar/Arterial O2 Gradient 105.6 mmHg; Base Excess ABG 2.5 mEq/l (+/-2.0); Carboxyhemoglobin 0.3 % THb (0-2.0); Fractional Inspired Oxygen 35 %; HCO3 ABG 27.6 mEq/l (22.0-26.0); Methemoglobin ABG 0.3 %THb (0-1.5); Oxygen Content ABG 15.2 %vol (16.0-22.0); Oxygen Saturation ABG 97.1 % (95.0-100.0); Oxyhemoglobin 95.9 % THb (90.0-100.0); PCO2 ABG 44.7 mmHg (35.0-45.0); PO2 FiO2 Ratio Arterial Blood 2.63 %; Reduced Hemoglobin 3.5 %THb (0-5.0); Total Hemoglobin 11.2 g/dL (12.0-18.0); pH ABG 7.408 (7.350-7.450)
[2024-04-07] MEDS: CENTRAL LINE FLUSH 10 ML IV PUSH ×3 (05:45→22:15)
[2024-04-07] MEDS: METOPROLOL TARTRATE 25 MG TABLET PO (05:45)
[2024-04-07 05:53] LABS: Arterial Blood Gas Ventilator rate 24 /MIN; Device VENTILATOR; Modified Allen's Test Pass; Site Drawn RIGHT RADIAL
[2024-04-07 05:54] LABS: Arterial Blood Gas PEEP 10 cmH2O; Arterial Blood Gas Tidal Volume 400 ml; Arterial Blood Gas Vent Mode CMV
[2024-04-07 06:22] LABS: Alanine Aminotransferase 264 U/L (6-35); Albumin Level 2.8 g/dL (3.5-5.1); Alkaline Phosphatase 177 U/L (38-126); Anion Gap 9 mmol/L (4-12); Aspartate Amino Transferase 45 U/L (14-36); Bilirubin,Total 0.7 mg/dL (0.2-1.3); Blood Urea Nitrogen 112 mg/dL (7-17); Calcium 8.5 mg/dL (8.4-10.2); Carbon Dioxide 28 mmol/L (22-30); Chloride 100 mmol/L (98-107); Estimated CRCL calculation 26 ml/min; Estimated Glomerular Filt Rate 15; Glucose 193 mg/dL (65-110); Magnesium 2.6 mg/dL (1.6-2.3); Phosphorus 6.7 mg/dL (2.5-4.5); Potassium 4.5 mmol/L (3.4-5.0); Sodium 137 mmol/L (137-145)
[2024-04-07 06:26] LABS: Hemoglobin 10.1 g/dL (12.0-15.0); Mean Corpuscular HGB Conc 32.6 g/dl (32-36); Mean Corpuscular Hemoglobin 30.3 pg (26-34); Mean Corpuscular Volume 93.1 fl (80-100); Mean Platelet Volume 10.2 fl (7.4-10.4); Platelet Count Result 288 k/mm3 (150-375); Red Blood Count 3.33 M/mm3 (4.2-5.4); Red Cell Distribution Width 17.3 % (11.5-14.5)
[2024-04-07] MEDS: INSULIN GLARGINE (*BKC) 100 UNITS/ML 60 UNITS SUB-Q ×2 (08:07→20:53)
[2024-04-07] MEDS: polyethylene glycoL 3350 17 GM POWD.PACK PO (08:07)
[2024-04-07] MEDS: PANTOPRAZOLE SODIUM IV 40 MG VIAL IV PUSH (08:07)
[2024-04-07] MEDS: MINERAL OIL/WHITE PETROLATUM OINTMENT 1 APPLIC EACH EYE ×2 (08:07→22:15)
[2024-04-07] MEDS: CYANOCOBALAMIN 1,000 MCG TABLET 1000 MCG PO ×2 (08:07→18:04)
[2024-04-07] MEDS: APIXABAN 5 MG TABLET PO ×2 (08:07→20:54)
--- NOTE | 2024-04-07 11:11 | PCFNICU ---
ICU Rounding Note: Pt current nutrition is Nepro at 40 ml/hr. Last recorded weight is 159.4 kg,up from 148.9 kg on admit. Bowel Motility: No BM reported since 03/26. Miralax, Senokot and Lactulose Labs Reviewed: Glu 193, Cr 3.05, BUN 112, GFR 15, Alb 2.8 Meds Noted:Fentanyl, Versed, Senokot, Lactulose, Lantus, NovoLog, Bumex Skin: WNL Additional Notes: Patient remains on mechanical vent. Dialysis 04/06. Plans for new dialysis catheter today. Discussions during ICU rounds with family regarding Trach and PEG if unable to come off vent. Tube feedings of Nepro at 40 ml/hr providing 1584 kcal/71 gm protein/639 ml water. Flush 30 ml q 4 hours. Agree with diet orders. Following daily in ICU rounds. Will monitor weight, labs, skin, diet orders, meds, tube feeding tolerance every Thursday and Thursday. .
[2024-04-07] MEDS: fentaNYL CITRATE INJ (*CRX) 100 MCG/2 ML VIAL 50 MCG IV PUSH ×2 (11:37→12:12)
[2024-04-07] MEDS: MIDAZOLAM HCL (*CRX) 2 MG/2 ML VIAL IV PUSH ×2 (11:38→12:07)
[2024-04-07 11:44] LABS: Glucose Point of Care 192 mg/dl (65-105)
[2024-04-07 13:45] LABS: Glucose Point of Care 177 mg/dl (65-105)
--- NOTE | 2024-04-07 13:55 | P.PNNP_ITS ---
Progress Note: A&P Assessment and Plan (1) VINCENT (acute kidney injury): Code(s): N17.9 - Acute kidney failure, unspecified Status: Acute Assessment and Plan: * as noted by trend of labs since admission * normal creatinine at baseline and on admission * multifactorial etiology: * hemodynamic instability/shock * infection/sepsis (pneumonia + RSV) * ARB + HCTZ use prior to admission * contrast (CTA of chest on 03/27) * hypoxia * afib with RVR * prerenal factors (?) * evaluation to date noted: * renal ultrasound without hydro * urine electrolytes prerenal * urine eosinophils negative * CPK normal * initiated on JACK SETTER/dialysis on 04/02 * better urine output in the last 24 hours * s/p IV diuretics on 04/05 -- reasonable UOP but rise in BUN + creatinine noted * HD today * follow trend of repeat labs and UOP to assess for renal recovery (2) Acute hypoxic respiratory failure: Code(s): J96.01 - Acute respiratory failure with hypoxia Status: Acute Assessment and Plan: * seconeary to pneumonia, RSV, and possible CHF * CTA of chest noted: * no evidence of pulmonary embolus, aortic dissection, or aortic aneurysm * extensive right lower lobe pneumonia * probable mildly prominent reactive lymphadenopathy the right axilla and subcarinal region * emergently intubated 03/28 * completed course of steroids * follow respiratory status * weaning as tolerated (3) Septic shock: Code(s): A41.9 - Sepsis, unspecified organism; R65.21 - Severe sepsis with septic shock Status: Acute Assessment and Plan: * secondary to extensive pneumonia +/- RSV * on antibiotics * cultures negative to date * off pressors currently (4) Atrial fibrillation with RVR: Code(s): I48.91 - Unspecified atrial fibrillation Status: Acute Assessment and Plan: * rate control strategy * on Eliquis * Echo results noted * Cardiology following (5) Anemia: Code(s): D64.9 - Anemia, unspecified Status: Acute Assessment and Plan: * likely a manifestation of VINCENT and acute illness * no need for DANG at this time * follow trend of H/H (6) Community acquired pneumonia: Code(s): J18.9 - Pneumonia, unspecified organism Status: Acute Assessment and Plan: * as noted by admission imaging * culture data noted (negative to date) * on antibiotics (7) Elevated liver enzymes: Code(s): R74.8 - Abnormal levels of other serum enzymes Status: Acute Assessment and Plan: * thought to be secondary to shock liver * statin on hold * liver enzymes fluctuating * follow trend (8) Diabetes: Code(s): E11.9 - Type 2 diabetes mellitus without complications Status: Chronic Assessment and Plan: * follow accu-cheks * 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 L Subjective Date/time seen: 04/07/24 13:55 Interval history: Follow-up for acute kidney injury/acute renal failure (currently requiring hemodialysis). Tolerating dialysis treatment at the time of my visit (seen on HD at 1:45PM); new left IJ temporary dialysis catheter placed earlier this morning (unable to get dialysis treatment done the evening before due to poor blood flows with previous HD catheter); remains intubated/sedated and on mechanical ventilation; hemodynamically stable without the need for vasopressor therapy; still making reasonable urine although BUN + creatinine remains elevated. Exam 2 Narrative: General: elderly but WD/WN female intubated/sedated and on mechanical ventilation Heart: IRRR, normal S1 and S2; no rub Lungs: coarse breath sounds; few crackles at bases Abdomen: soft, nontender, nondistended, positive bowel sounds Extremities: no cyanosis or clubbing; 1+ in UEs and LEs Skin: no nodules Objective Data Vital Signs Vital Signs: Vital Signs Temp Pulse Resp BP Pulse Ox O2 Del Method FiO2 04/07/24 13:38 80 95 Mechanical Ventilation 35 04/07/24 13:25 98.3 F 83 26 H 99/60 L 04/07/24 13:25 35 04/07/24 12:58 83 04/07/24 12:29 89 26 H 04/07/24 12:00 98.3 F 89 26 H 101/62 97 04/07/24 12:00 35 04/07/24 12:00 89 04/07/24 12:00 89 26 H 04/07/24 11:36 86 94 Mechanical Ventilation 35 04/07/24 10:06 91 27 H 04/07/24 10:06 91 27 H 04/07/24 10:00 98.6 F 91 22 H 88/57 L 96 04/07/24 10:00 91 04/07/24 08:05 84 96 Mechanical Ventilation 35 04/07/24 08:00 86 04/07/24 08:00 89 26 H 04/07/24 08:00 89 26 H 04/07/24 08:00 35 04/07/24 08:00 98.6 F 89 26 H 95/61 L 97 04/07/24 06:00 95 F L 95 27 H 102/64 95 04/07/24 06:00 95 04/07/24 06:00 95 27 H 04/07/24 06:00 95 27 H 04/07/24 05:45 93 04/07/24 05:00 104 H 24 H 04/07/24 05:00 104 H 24 H 04/07/24 04:42 82 94 Mechanical Ventilation 35 04/07/24 04:00 98.2 F 102 H 24 H 127/71 95 04/07/24 04:00 99 04/07/24 04:00 30 04/07/24 04:00 Mechanical Ventilation 35 04/07/24 04:00 102 H 24 H 04/07/24 04:00 85 24 H 04/07/24 02:20 94 99 Mechanical Ventilation 35 04/07/24 02:00 98.3 F 85 24 H 114/68 95 04/07/24 02:00 85 24 H 04/07/24 02:00 85 24 H 04/07/24 00:00 81 04/07/24 00:00 98.4 F 83 26 H 88/57 L 95 04/07/24 00:00 30 04/07/24 00:00 Mechanical Ventilation 35 04/07/24 00:00 83 24 H 04/07/24 00:00 83 24 H 04/07/24 00:00 86 04/06/24 22:45 98.6 F 91 20 82/53 L 04/06/24 22:30 79/58 L 04/06/24 22:15 92 78/58 L 04/06/24 22:05 95 95 Mechanical Ventilation 04/06/24 22:04 92 82/54 L 04/06/24 22:00 110 H 04/06/24 22:00 110 H 24 H 04/06/24 22:00 110 H 24 H 04/06/24 22:00 93 91/55 L 04/06/24 22:00 98.6 F 98 25 H 94/53 L 93 04/06/24 21:45 98 94/53 L 04/06/24 21:30 113 H 94/59 L 04/06/24 21:15 110 H 127/107 H 04/06/24 21:00 111 H 24 H 04/06/24 21:00 111 H 24 H 04/06/24 21:00 108 H 102/65 04/06/24 20:50 96 121/69 04/06/24 20:36 90 24 H 04/06/24 20:36 90 24 H 04/06/24 20:36 98.3 F 78 24 H 108/58 L 04/06/24 20:00 88 04/06/24 20:00 30 04/06/24 20:00 Mechanical Ventilation 35 04/06/24 20:00 93 26 H 04/06/24 20:00 93 26 H 04/06/24 19:52 98 94 Mechanical Ventilation 35 04/06/24 18:53 87 24 H 04/06/24 18:53 87 24 H Intake/Output Intake/Output: Intake & Output 04/04/24 04/05/24 04/06/24 04/07/24 23:59 23:59 23:59 23:59 Intake Total 2283.2 2020.1 1773.5 1831.3 Output Total 1779 1300 1900 1250 Balance 504.2 720.1 -126.5 581.3 Meds/Results Medications: Active Medications Generic Name Dose Route Start Last Admin Trade Name Freq PRN Reason Stop Dose Admin Acetaminophen 650 mg 03/27/24 14:41 03/29/24 05:11 Acetaminophen 325 Mg Tablet PO 650 mg Q4H PRN Administration Mild Pain (1-3) or Fever Alteplase, Recombinant 2 mg 04/06/24 03:11 04/06/24 03:22 Alteplase 2 Mg Vial (Cathflo) IV PUSH 2 mg ONCE PRN Administration Line Occlusion Amiodarone HCl 400 mg 04/01/24 10:40 04/03/24 08:31 Amiodarone Hcl 200 Mg Tablet PO 400 mg DAILY LAVERNE Administration Apixaban 5 mg 03/27/24 12:35 04/07/24 08:07 Apixaban 5 Mg Tablet PO 5 mg Q12HR LAVERNE Administration Cyanocobalamin 1,000 mcg 03/27/24 17:00 04/07/24 18:04 Cyanocobalamin 1,000 Mcg Tablet PO 1,000 mcg BID LAVERNE Administration Dextrose 12.5 gm 03/27/24 08:57 Dextrose 50% 25 Gm/50 Ml Syringe IV PUSH PRN PRN Hypoglycemia Protocol Epoetin Marck-epbx 4,000 units 04/07/24 18:31 04/07/24 16:34 Epoetin Marck-Epbx 4,000 Units/Ml Vial IV PUSH 04/07/24 18:32 4,000 units ONCE ONE Administration Glucagon 1 mg 03/27/24 08:57 Glucagon For Inj 1 Mg Vial IM PRN PRN Hypoglycemia Protocol Glucose 15 gm 03/27/24 08:57 Glucose Oral Gel 15 Gm Of Glucse In 37.5 Gm Tube PO PRN PRN Hypoglycemia Protocol Dextrose 1,000 mls @ 100 mls/hr 03/27/24 08:57 Dextrose 5% 1,000 Ml IVPB PRN PRN Hypoglycemia Protocol Fentanyl Citrate 2,500 mcg in 250 mls @ 7.5 mls/hr 03/28/24 15:45 04/07/24 18:00 Fentanyl 2,500 Mcg/Ns 250 Ml IV CONT 04/16/24 23:59 75 mcg/hr .[id number] LAVERNE 7.5 mls/hr Titration Protocol 75 MCG/HR Midazolam HCl 100 mg in 100 mls @ 3 mls/hr 03/28/24 19:30 04/07/24 18:00 Versed 100 Mg/Ns 100 Ml IV CONT 3 mg/hr .[id number] LAVERNE 3 mls/hr Titration Protocol 3 MG/HR Albumin Human 50 mls @ 999 mls/hr 04/03/24 09:19 04/07/24 15:05 Albutein IVPB 05/03/24 09:18 100 mls/hr Q10M PRN Administration HYPOTENSION Insulin Aspart 4 - 8 units 03/29/24 13:00 04/07/24 16:20 Insulin Aspart (*Bkc) 100 Units/Ml SUB-Q Not Given Q4HR LAVERNE Protocol Insulin Glargine 60 units 04/01/24 09:00 04/07/24 08:07 Insulin Glargine (*Bkc) 100 Units/Ml SUB-Q 60 units Q12HR LAVERNE Administration Metoprolol Tartrate 12.5 mg 04/07/24 12:00 04/07/24 18:04 Metoprolol Tartrate 12.5 Mg Tablet PO 12.5 mg Q6HR LAVERNE Administration Multi-Ingred Cream/Lotion/Oil/Oint 1 applic 03/28/24 21:00 04/07/24 08:07 Mineral Oil/White Petrolatum Ointment EACH EYE 1 applic Q12HR LAVERNE Administration Pantoprazole Sodium 40 mg 03/29/24 09:00 04/07/24 08:07 Pantoprazole Sodium Iv 40 Mg Vial IV PUSH 40 mg DAILY LAVERNE Administration Polyethylene Glycol 17 gm 04/04/24 11:45 04/07/24 08:07 Polyethylene Glycol 3350 17 Gm Powd.Pack PO 17 gm QAM LAVERNE Administration Rosuvastatin Calcium 20 mg 03/28/24 09:00 03/31/24 09:28 Rosuvastatin 20 Mg Tablet PO Not Given DAILY LAVERNE Senna/Docusate Sodium 1 tab 04/07/24 21:00 Senna/Docusate Sodium Tablet PO HS LAVERNE Sodium Chloride 10 ml 03/28/24 22:00 04/07/24 14:39 Central Line Flush IV PUSH 10 ml Q8HR LAVERNE Administration Sodium Chloride 10 ml 03/28/24 16:14 Central Line Flush IV PUSH PRN PRN with TPN bag changes Sodium Chloride 20 ml 03/28/24 16:14 Central Line Flush IV PUSH PRN PRN after blood draws Radiology Results: ITS Impressions Chest CTA 03/27/24 06:41 Impression: No evidence of pulmonary embolus, aortic dissection, or aortic aneurysm. Extensive right lower lobe pneumonia. Probable mildly prominent reactive lymphadenopathy the right axilla and subcarinal region. Head CT 03/28/24 22:59 IMPRESSION: 1. Normal brain. Abdomen X-Ray 03/29/24 08:59 IMPRESSION: 1. Lines and tubes in expected positions. 2. Diffuse bilateral lung disease, right greater than left, consistent with multifocal pneumonia. Renal Ultrasound 03/31/24 15:34 IMPRESSION: No hydronephrosis. Perinephric fluid collection adjacent to the left lower pole. Abdomen Ultrasound 03/31/24 15:39 IMPRESSION: Status post cholecystectomy. Pancreas poorly visualized. Otherwise normal abdominal ultrasound findings. Chest X-Ray 04/07/24 12:27 Impression: 1: Cardiomegaly with progression of pulmonary edema. Labs Labs: Laboratory Tests 04/07/24 06:03 04/07/24 06:03 Calcium 8.5 Phosphorus 6.7 H Magnesium 2.6 H Total Bilirubin 0.7 AST 45 H ALT 264 H Alkaline Phosphatase 177 H Total Protein 6.0 L Albumin 2.8 L
[2024-04-07] MEDS: SODIUM CHLORIDE 0.9% IV 1,000 ML 999 ML IV CONT (14:04)
--- NOTE | 2024-04-07 14:37 | WPDPROCEDUR ---
Procedures Hemodialysis Catheter Placement Left IJ: Discussed w/ patient and/or surrogate, the non-emergent placement of a hemodialysis catheter, including it's clinincal necessity/indication & associated potential risks & complications.: Yes The patient and/or surrogate understand(s) and acknowledge(s) the need to proceed with hemodialysis catheter insertion as an important element of the patient's clinical management.: Yes HD Catheter Date: 04/07/24 HD Catheter Time: 11:55 Pre-procedural Time-Out was completed immediately before starting the procedure and confirmed: Patient Identification, Site, Procedure, Patient Position and the Availability of Requisite Equipment.: Yes Patient Position: supine Patient Placed on Monitor/Pulse Ox: Yes Provider Prep: mask, sterile gown, sterile gloves, Max. sterile barrier precautions, cap and hand hygiene Hemodialysis Catheter Prep: Chlorhexidine scrub Local Anesthesia Used: lidocaine 1% Amount of anesthesia used (mL): 3 Ultrasound Used for Placement: Yes Hemodialysis Catheter Inserted: triple Setswana: 7 Length (cm): 21 Depth of Insertion (cm): 21 Post Procedure: sutured in place, good blood return, all ports aspirated, flushed, capped, transparent dressing, hemostatic product, antimicrobial product, securement product and aseptic technique maintained throughout procedure Post Procedure X-Ray: tip of catheter in good position and no pneumothorax seen Patient Tolerated Procedure: well and no complications
--- NOTE | 2024-04-07 14:41 | WPDINTPN ---
Progress Note: A&P Assessment and Plan (1) Acute hypoxic respiratory failure: Code(s): J96.01 - Acute respiratory failure with hypoxia Status: Acute Assessment and Plan: Acute hypoxic respiratory failure secondary to pneumonia and congestive heart failure Patient now emergently intubated 03/28 -03/28: Repeat PCR was positive RSV -continue isolation -chest x-ray and ABGs reviewed this morning -Currently PEEP to 10 and FiO2 down to 30% -patient will require additional fluid removal before considering weaning from mechanical ventilation -sedated with fentanyl and Versed infusion, maintain RASS of 0 to -2, daily sedation vacation -status post stress dose steroids. -discussed with Nephrology, patient did have if improved urine output over the last 24 hours, and since she did not tolerate dialysis well, sketch artist recommended commended Bumex 2 mg IV x1. If she does not respond well, will have to dialyze the patient 04/06: Patient did respond to Bumex that was given yesterday with 1900 mL urine output in the last 24 hours 04/07: A new dialysis catheter has been placed in the left IJ, currently functioning well. Have discussed with Nephrology to continue to remove fluid -will place patient on SBT in a.m. 03/27 CTA chest Impression: No evidence of pulmonary embolus, aortic dissection, or aortic aneurysm. Extensive right lower lobe pneumonia. Probable mildly prominent reactive lymphadenopathy the right axilla and subcarinal region. (2) Sepsis: Code(s): A41.9 - Sepsis, unspecified organism Status: Acute Assessment and Plan: Sepsis/septic shock secondary to community-acquired pneumonia, initial procalcitonin level 4.4 Blood cultures ordered and negative till now Sputum cultures negative Urine Legionella and pneumococcal antigen negative Status post cefepime and azithromycin MRSA screen negative. Vancomycin discontinued (3) Diabetes: Code(s): E11.9 - Type 2 diabetes mellitus without complications Status: Chronic Assessment and Plan: Status post insulin infusion Currently on Lantus to 60 units q.12 Steroids discontinued and dialysis being started anticipate improvement in blood sugars, off insulin infusion - Continue tube feeds (4) Atrial fibrillation with RVR: Code(s): I48.91 - Unspecified atrial fibrillation Status: Acute Assessment and Plan: Patient was amiodarone infusion which has been switched to p.o. amiodarone per tube metoprolol by Cardiology Patient is anticoagulated with Eliquis Echo Summary 1. Very technically difficult study with limited views. 2. Left ventricular chamber dimension is normal. 3. Left ventricular systolic function is at lower limits of normal, estimated at 50-55%. 4. Left atrial chamber dimension is moderately enlarged (5) Community acquired pneumonia: Code(s): J18.9 - Pneumonia, unspecified organism Status: Acute Assessment and Plan: See above (6) Altered mental status: Code(s): R41.82 - Altered mental status, unspecified Status: Acute Assessment and Plan: Likely secondary to hypoxia. Patient had CT scan of the head recently done which was unremarkable Repeat head CT on 03/28 was again unremarkable Ammonia levels within normal limit TSH was normal -04/05: patient did open her eyes and follows simple commands and lower extremity (7) Electrolyte abnormality: Code(s): E87.8 - Other disorders of electrolyte and fluid balance, not elsewhere classified Status: Acute Assessment and Plan: Improved after replacement -continue to monitor (8) Shock: Code(s): R57.9 - Shock, unspecified Status: Acute Assessment and Plan: RESOLVED Patient was on Levophed and vasopressin infusion which are currently off -off stress dose steroid - status post 25% albumin -Hold further crystalloids (9) VINCENT (acute kidney injury): Code(s): N17.9 - Acute kidney failure, unspecified Status: Acute Assessment and Plan: Increase in creatinine and drop in urine output likely secondary to shock Patient received IV fluids and 5% albumin earlier in the course. norm CK level Renal ultrasound showed No hydronephrosis. Perinephric fluid collection adjacent to the left lower pole. Nephrology following Continued maintain mean arterial pressure with vasopressors if needed 2/ Discussed with sketch artist and patient's family. Discussed risks and benefits of starting hemodialysis. Environment Friendly Landscape Designer and patient's family in agreement. Patient's consented to proceed. Temporary dialysis catheter placed. Patient was dialyzed. Further dialysis per as per Nephrology -04/04: Patient did not tolerate dialysis as she became tachypneic, tachycardic and hypotensive requiring restarting Levophed. -04/05: Environment Friendly Landscape Designer recommended giving Bumex 2 mg IV x1 since patient had slightly improved urine output over the last 24 hours and a creatinine and BUN trending downward, - will monitor urine output, renal function and electrolytes 04/06: Discuss with Nephrology, patient received dialysis today with no removal of fluid 04/07: New left IJ dialysis catheter was inserted today, currently functioning well. Have asked the bedside RN to remove the right IJ dialysis catheter once patient is dialyzed today. (10) Elevated liver enzymes: Code(s): R74.8 - Abnormal levels of other serum enzymes Status: Acute Assessment and Plan: Patient is status post cholecystectomy Elevated AST ALT and alkaline phosphatase likely secondary to shock liver Hold statin Right upper quadrant ultrasound - Status post cholecystectomy. Pancreas poorly visualized. Otherwise normal abdominal ultrasound findings. While hepatitis panel was negative Levels were increasing I have discussed with Cardiology regarding potential amiodarone related hepatotoxicity. Patient was on IV amiodarone earlier for rate control as patient was in AFib with RVR. It was switched to p.o. as the rate improved. 04/03 amiodarone was held GI consult and following 04/06 levels improving. Monitor Plan DVT prophylaxis -Eliquis Stress ulcer prophylaxis -protonix Nutrition -tolerating tube feeds, no bowel movements, currently on MiraLax, added lactulose x1 Code Status - Full Code Total Critical Care Time - 44 minutes 04/07: Discussed with and daughter in rounds and updated them with patient's condition and plan of care. They are aware that I will be placing a new dialysis catheter today. I also discussed with them regarding a tracheostomy and PEG tube placement if she is not able to extubate by the end of the week. stated that he will want the patient to receive a tracheostomy and PEG tube if it comes to that. I answered all the questions Due to a high probability of clinically significant, life threatening deterioration, the patient required my highest level of preparedness to intervene emergently and I personally spent this critical care time directly and personally managing the patient. This critical care time included obtaining a history; examining the patient; pulse oximetry; ordering and review of studies; arranging urgent treatment with development of a management plan; evaluation of patient's response to treatment; frequent reassessment; and discussions with other providers. It was exclusive of separately billable procedures and treating other patients and teaching time. Please see Assessment and Plan section and the rest of the note for further information on patient assessment and treatment This dictation may have been done utilizing a voice recognition system. Attempts have been made to correct errors. However, there may be uncorrected grammatical, spelling, and recognitions errors present. Subjective Date/time seen: 04/07/24 14:41 Interval history: 68yo female with AFib s/p SHAYY cardioversion that was unsuccessful, KAREN not using CPAP, DM, HTN and endometrial cancer who presents with shortness of breath, leg swelling and weight gain over the past few weeks. Now in with respiratory failure secondary to pneumonia with septic shock. Intubated and on mechanical ventilation. RSV positive, acute kidney injury status post dialysis catheter and dialysis 04/07/2024: Patient seen examined the ICU, remains intubated on CMV mode of ventilation, peep of 10 of the 35% FiO2. Sedated with fentanyl and Versed infusion gout patient opens her eyes and follows simple commands in all extremities. Patient dialysis catheter in the right IJ a is not functioning well, defer the could not dialyze her properly yesterday. S continues to have adequate urine output, hemodynamically stable, afebrile. Creatinine slightly improved this morning. . Review of Systems Review of Systems: ROS unobtainable: Yes unobtainable due to endotracheal tube, unobtainable due to medical condition and unobtainable due to mental status Exam Narrative: General: Pt is now sedated, intubated and on mechanical ventilation Lungs/Chest: Coarse breath sounds bilaterally, no wheezing, decreased air entry at bases Cardiac: Irregularly irregular, heart rates in the 90s to 100s Circulation: Pedal pulses are intact and symmetrical. Abdomen: Normoactive bowel sounds bowel sounds. Morbidly Obese. Soft. NT. ND. Extremities: No clubbing, cyanosis, bilateral upper and lower extremity edema : Can in place Neurologic: Patient is intubated and sedated, opens her eyes, follows simple command in all extremities, pupils equal and reactive to light Objective Data Vital Signs Vital Signs: Vital Signs - 24 hr 04/06/24 16:00 04/06/24 16:00 04/06/24 16:00 Temperature 97.9 F Pulse Rate 85 89 80 Respiratory Rate 24 H 21 H Blood Pressure 123/72 Pulse Oximetry 93 95 Oxygen Delivery Mechanical Ventilation Fraction of Inspired Oxygen 30 04/06/24 16:00 04/06/24 16:00 04/06/24 16:00 Temperature Pulse Rate 77 98 Respiratory Rate 18 24 H Blood Pressure Pulse Oximetry Oxygen Delivery Fraction of Inspired Oxygen 30 04/06/24 17:07 04/06/24 17:56 04/06/24 18:00 Temperature Pulse Rate 80 87 81 Respiratory Rate 18 Blood Pressure Pulse Oximetry 93 Oxygen Delivery Mechanical Ventilation Fraction of Inspired Oxygen 35 04/06/24 18:00 04/06/24 18:00 04/06/24 18:00 Temperature 98.0 F Pulse Rate 94 85 82 Respiratory Rate 24 H 22 H Blood Pressure 113/63 Pulse Oximetry 95 Oxygen Delivery Fraction of Inspired Oxygen 04/06/24 18:00 04/06/24 18:53 04/06/24 18:53 Temperature Pulse Rate 79 87 87 Respiratory Rate 24 H 24 H 24 H Blood Pressure 113/63 Pulse Oximetry 94 Oxygen Delivery Fraction of Inspired Oxygen 04/06/24 19:52 04/06/24 20:00 04/06/24 20:00 Temperature Pulse Rate 98 93 93 Respiratory Rate 26 H 26 H Blood Pressure Pulse Oximetry 94 Oxygen Delivery Mechanical Ventilation Fraction of Inspired Oxygen 35 04/06/24 20:00 04/06/24 20:00 04/06/24 20:00 Temperature Pulse Rate 88 Respiratory Rate Blood Pressure Pulse Oximetry Oxygen Delivery Mechanical Ventilation Fraction of Inspired Oxygen 35 30 04/06/24 20:36 04/06/24 20:36 04/06/24 20:36 Temperature 98.3 F Pulse Rate 78 90 90 Respiratory Rate 24 H 24 H 24 H Blood Pressure 108/58 L Pulse Oximetry Oxygen Delivery Fraction of Inspired Oxygen 04/06/24 20:50 04/06/24 21:00 04/06/24 21:00 Temperature Pulse Rate 96 108 H 111 H Respiratory Rate 24 H Blood Pressure 121/69 102/65 Pulse Oximetry Oxygen Delivery Fraction of Inspired Oxygen 04/06/24 21:00 04/06/24 21:15 04/06/24 21:30 Temperature Pulse Rate 111 H 110 H 113 H Respiratory Rate 24 H Blood Pressure 127/107 H 94/59 L Pulse Oximetry Oxygen Delivery Fraction of Inspired Oxygen 04/06/24 21:45 04/06/24 22:00 04/06/24 22:00 Temperature 98.6 F Pulse Rate 98 98 93 Respiratory Rate 25 H Blood Pressure 94/53 L 94/53 L 91/55 L Pulse Oximetry 93 Oxygen Delivery Fraction of Inspired Oxygen 04/06/24 22:00 04/06/24 22:00 04/06/24 22:00 Temperature Pulse Rate 110 H 110 H 110 H Respiratory Rate 24 H 24 H Blood Pressure Pulse Oximetry Oxygen Delivery Fraction of Inspired Oxygen 04/06/24 22:04 04/06/24 22:05 04/06/24 22:15 Temperature Pulse Rate 92 95 92 Respiratory Rate Blood Pressure 82/54 L 78/58 L Pulse Oximetry 95 Oxygen Delivery Mechanical Ventilation Fraction of Inspired Oxygen 35 04/06/24 22:30 04/06/24 22:45 04/07/24 00:00 Temperature 98.6 F Pulse Rate 91 86 Respiratory Rate 20 Blood Pressure 79/58 L 82/53 L Pulse Oximetry Oxygen Delivery Fraction of Inspired Oxygen 04/07/24 00:00 04/07/24 00:00 04/07/24 00:00 Temperature Pulse Rate 83 83 Respiratory Rate 24 H 24 H Blood Pressure Pulse Oximetry Oxygen Delivery Mechanical Ventilation Fraction of Inspired Oxygen 35 04/07/24 00:00 04/07/24 00:00 04/07/24 00:00 Temperature 98.4 F Pulse Rate 83 81 Respiratory Rate 26 H Blood Pressure 88/57 L Pulse Oximetry 95 Oxygen Delivery Fraction of Inspired Oxygen 30 04/07/24 02:00 04/07/24 02:00 04/07/24 02:00 Temperature 98.3 F Pulse Rate 85 85 85 Respiratory Rate 24 H 24 H 24 H Blood Pressure 114/68 Pulse Oximetry 95 Oxygen Delivery Fraction of Inspired Oxygen 04/07/24 02:20 04/07/24 04:00 04/07/24 04:00 Temperature Pulse Rate 94 85 102 H Respiratory Rate 24 H 24 H Blood Pressure Pulse Oximetry 99 Oxygen Delivery Mechanical Ventilation Fraction of Inspired Oxygen 35 04/07/24 04:00 04/07/24 04:00 04/07/24 04:00 Temperature Pulse Rate 99 Respiratory Rate Blood Pressure Pulse Oximetry Oxygen Delivery Mechanical Ventilation Fraction of Inspired Oxygen 35 30 04/07/24 04:00 04/07/24 04:42 04/07/24 05:00 Temperature 98.2 F Pulse Rate 102 H 82 104 H Respiratory Rate 24 H 24 H Blood Pressure 127/71 Pulse Oximetry 95 94 Oxygen Delivery Mechanical Ventilation Fraction of Inspired Oxygen 35 04/07/24 05:00 04/07/24 05:45 04/07/24 06:00 Temperature Pulse Rate 104 H 93 95 Respiratory Rate 24 H 27 H Blood Pressure Pulse Oximetry Oxygen Delivery Fraction of Inspired Oxygen 04/07/24 06:00 04/07/24 06:00 04/07/24 06:00 Temperature 95 F L Pulse Rate 95 95 95 Respiratory Rate 27 H 27 H Blood Pressure 102/64 Pulse Oximetry 95 Oxygen Delivery Fraction of Inspired Oxygen 04/07/24 08:00 04/07/24 08:00 04/07/24 08:00 Temperature 98.6 F Pulse Rate 89 89 Respiratory Rate 26 H 26 H Blood Pressure 95/61 L Pulse Oximetry 97 Oxygen Delivery Fraction of Inspired Oxygen 35 04/07/24 08:00 04/07/24 08:00 04/07/24 08:05 Temperature Pulse Rate 89 86 84 Respiratory Rate 26 H Blood Pressure Pulse Oximetry 96 Oxygen Delivery Mechanical Ventilation Fraction of Inspired Oxygen 35 04/07/24 10:00 04/07/24 10:00 04/07/24 10:06 Temperature 98.6 F Pulse Rate 91 91 91 Respiratory Rate 22 H 27 H Blood Pressure 88/57 L Pulse Oximetry 96 Oxygen Delivery Fraction of Inspired Oxygen 04/07/24 10:06 04/07/24 11:36 04/07/24 12:00 Temperature Pulse Rate 91 86 89 Respiratory Rate 27 H 26 H Blood Pressure Pulse Oximetry 94 Oxygen Delivery Mechanical Ventilation Fraction of Inspired Oxygen 35 04/07/24 12:00 04/07/24 12:00 04/07/24 12:00 Temperature 98.3 F Pulse Rate 89 89 Respiratory Rate 26 H Blood Pressure 101/62 Pulse Oximetry 97 Oxygen Delivery Fraction of Inspired Oxygen 35 04/07/24 12:29 04/07/24 12:58 04/07/24 13:25 Temperature Pulse Rate 89 83 Respiratory Rate 26 H Blood Pressure Pulse Oximetry Oxygen Delivery Fraction of Inspired Oxygen 35 04/07/24 13:25 04/07/24 13:38 04/07/24 14:00 Temperature 98.3 F Pulse Rate 83 80 83 Respiratory Rate 26 H Blood Pressure 99/60 L Pulse Oximetry 95 Oxygen Delivery Mechanical Ventilation Fraction of Inspired Oxygen 35 04/07/24 14:00 04/07/24 14:00 04/07/24 14:04 Temperature 98.3 F Pulse Rate 83 83 90 Respiratory Rate 28 H 28 H Blood Pressure 92/59 L 87/60 L Pulse Oximetry 96 Oxygen Delivery Fraction of Inspired Oxygen 04/07/24 14:15 04/07/24 14:38 Temperature Pulse Rate 84 83 Respiratory Rate 28 H Blood Pressure 90/64 L Pulse Oximetry Oxygen Delivery Fraction of Inspired Oxygen Intake/Output Intake/Output: Intake & Output 04/04/24 04/05/24 04/06/24 04/07/24 23:59 23:59 23:59 23:59 Intake Total 2283.2 2020.1 1773.5 1142.0 Output Total 1779 1300 1900 700 Balance 504.2 720.1 -126.5 442.0 Meds/Results Medications: Active Medications Generic Name Dose Route Start Last Admin Trade Name Freq PRN Reason Stop Dose Admin Acetaminophen 650 mg 03/27/24 14:41 03/29/24 05:11 Acetaminophen 325 Mg Tablet PO 650 mg Q4H PRN Administration Mild Pain (1-3) or Fever Alteplase, Recombinant 2 mg 04/06/24 03:11 04/06/24 03:22 Alteplase 2 Mg Vial (Cathflo) IV PUSH 2 mg ONCE PRN Administration Line Occlusion Amiodarone HCl 400 mg 04/01/24 10:40 04/03/24 08:31 Amiodarone Hcl 200 Mg Tablet PO 400 mg DAILY LAVERNE Administration Apixaban 5 mg 03/27/24 12:35 04/07/24 08:07 Apixaban 5 Mg Tablet PO 5 mg Q12HR LAVERNE Administration Cyanocobalamin 1,000 mcg 03/27/24 17:00 04/07/24 08:07 Cyanocobalamin 1,000 Mcg Tablet PO 1,000 mcg BID LAVERNE Administration Dextrose 12.5 gm 03/27/24 08:57 Dextrose 50% 25 Gm/50 Ml Syringe IV PUSH PRN PRN Hypoglycemia Protocol Epoetin Marck-epbx 4,000 units 04/07/24 18:31 Epoetin Markc-Epbx 4,000 Units/Ml Vial IV PUSH 04/07/24 18:32 ONCE ONE Glucagon 1 mg 03/27/24 08:57 Glucagon For Inj 1 Mg Vial IM PRN PRN Hypoglycemia Protocol Glucose 15 gm 03/27/24 08:57 Glucose Oral Gel 15 Gm Of Glucse In 37.5 Gm Tube PO PRN PRN Hypoglycemia Protocol Dextrose 1,000 mls @ 100 mls/hr 03/27/24 08:57 Dextrose 5% 1,000 Ml IVPB PRN PRN Hypoglycemia Protocol Fentanyl Citrate 2,500 mcg in 250 mls @ 7.5 mls/hr 03/28/24 15:45 04/07/24 14:38 Fentanyl 2,500 Mcg/Ns 250 Ml IV CONT 04/16/24 23:59 75 mcg/hr .[id number] LAVERNE 7.5 mls/hr Titration Protocol 75 MCG/HR Midazolam HCl 100 mg in 100 mls @ 3 mls/hr 03/28/24 19:30 04/07/24 14:00 Versed 100 Mg/Ns 100 Ml IV CONT 3 mg/hr .[id number] LAVERNE 3 mls/hr Titration Protocol 3 MG/HR Albumin Human 50 mls @ 999 mls/hr 04/03/24 09:19 04/06/24 23:30 Albutein IVPB 05/03/24 09:18 Infused Q10M PRN Infusion HYPOTENSION Insulin Aspart 4 - 8 units 03/29/24 13:00 04/07/24 12:30 Insulin Aspart (*Bkc) 100 Units/Ml SUB-Q Not Given Q4HR [facility] Protocol Insulin Glargine 60 units 04/01/24 09:00 04/07/24 08:07 Insulin Glargine (*Bkc) 100 Units/Ml SUB-Q 60 units Q12HR LAVERNE Administration Metoprolol Tartrate 12.5 mg 04/07/24 12:00 04/07/24 12:58 Metoprolol Tartrate 12.5 Mg Tablet PO Not Given Q6HR LAVERNE Multi-Ingred Cream/Lotion/Oil/Oint 1 applic 03/28/24 21:00 04/07/24 08:07 Mineral Oil/White Petrolatum Ointment EACH EYE 1 applic Q12HR LAVERNE Administration Pantoprazole Sodium 40 mg 03/29/24 09:00 04/07/24 08:07 Pantoprazole Sodium Iv 40 Mg Vial IV PUSH 40 mg DAILY LAVERNE Administration Polyethylene Glycol 17 gm 04/04/24 11:45 04/07/24 08:07 Polyethylene Glycol 3350 17 Gm Powd.Pack PO 17 gm QAM LAVERNE Administration Rosuvastatin Calcium 20 mg 03/28/24 09:00 03/31/24 09:28 Rosuvastatin 20 Mg Tablet PO Not Given DAILY LAVERNE Senna/Docusate Sodium 1 tab 04/07/24 21:00 Senna/Docusate Sodium Tablet PO HS LAVERNE Sodium Chloride 10 ml 03/28/24 22:00 04/07/24 14:39 Central Line Flush IV PUSH 10 ml Q8HR LAVERNE Administration Sodium Chloride 10 ml 03/28/24 16:14 Central Line Flush IV PUSH PRN PRN with TPN bag changes Sodium Chloride 20 ml 03/28/24 16:14 Central Line Flush IV PUSH PRN PRN after blood draws Radiology Results: ITS Impressions Chest CTA 03/27/24 06:41 Impression: No evidence of pulmonary embolus, aortic dissection, or aortic aneurysm. Extensive right lower lobe pneumonia. Probable mildly prominent reactive lymphadenopathy the right axilla and subcarinal region. Head CT 03/28/24 22:59 IMPRESSION: 1. Normal brain. Abdomen X-Ray 03/29/24 08:59 IMPRESSION: 1. Lines and tubes in expected positions. 2. Diffuse bilateral lung disease, right greater than left, consistent with multifocal pneumonia. Renal Ultrasound 03/31/24 15:34 IMPRESSION: No hydronephrosis. Perinephric fluid collection adjacent to the left lower pole. Abdomen Ultrasound 03/31/24 15:39 IMPRESSION: Status post cholecystectomy. Pancreas poorly visualized. Otherwise normal abdominal ultrasound findings. Chest X-Ray 04/07/24 12:27 Impression: 1: Cardiomegaly with progression of pulmonary edema. Labs Labs: Laboratory Results - last 24 hr 04/06/24 04/06/24 04/06/24 16:57 20:48 23:46 WBC RBC Hgb Hct MCV MCH MCHC RDW Plt Count MPV Puncture Site ABG pH ABG pCO2 ABG pO2 ABG PO2/FiO2 Ratio ABG HCO3 ABG O2 Saturation ABG O2 Content ABG Base Excess A-a Gradient Oxyhemoglobin Carboxyhemoglobin Methemoglobin Reduced Hemoglobin Total Hemoglobin O2 Delivery Device O2 Liters/Min Minute Volume Vent Rate Vent Mode FiO2 Tidal Volume PEEP Peak Inspir Pressure Pressure Support Sodium Potassium Chloride Carbon Dioxide Anion Gap BUN Creatinine Estim Creat Clear Calc Estimated GFR Glucose POC Capillary Glucose 149 H 164 H 174 H Calcium Phosphorus Magnesium Total Bilirubin AST ALT Alkaline Phosphatase Total Protein Albumin 04/07/24 04/07/24 04/07/24 04:42 04:49 06:03 WBC 14.0 H RBC 3.33 L Hgb 10.1 L Hct 31.0 L MCV 93.1 MCH 30.3 MCHC 32.6 RDW 17.3 H Plt Count 288 MPV 10.2 Puncture Site Right radial ABG pH 7.408 ABG pCO2 44.7 ABG pO2 92.0 ABG PO2/FiO2 Ratio 2.63 ABG HCO3 27.6 H ABG O2 Saturation 97.1 ABG O2 Content 15.2 L ABG Base Excess 2.5 A-a Gradient 105.6 Oxyhemoglobin 95.9 Carboxyhemoglobin 0.3 Methemoglobin 0.3 Reduced Hemoglobin 3.5 Total Hemoglobin 11.2 L O2 Delivery Device Ventilator O2 Liters/Min Not Reportable Minute Volume Not Reportable Vent Rate 24 Vent Mode Cmv FiO2 35 Tidal Volume 400 PEEP 10 Peak Inspir Pressure Not Reportable Pressure Support Not Reportable Sodium 137 Potassium 4.5 Chloride 100 Carbon Dioxide 28 Anion Gap 9 BUN 112 H Creatinine 3.05 H Estim Creat Clear Calc 26 Estimated GFR 15 L Glucose 193 H POC Capillary Glucose 186 H Calcium 8.5 Phosphorus 6.7 H Magnesium 2.6 H Total Bilirubin 0.7 AST 45 H ALT 264 H Alkaline Phosphatase 177 H Total Protein 6.0 L Albumin 2.8 L 04/07/24 04/07/24 08:06 11:23 WBC RBC Hgb Hct MCV MCH MCHC RDW Plt Count MPV Puncture Site ABG pH ABG pCO2 ABG pO2 ABG PO2/FiO2 Ratio ABG HCO3 ABG O2 Saturation ABG O2 Content ABG Base Excess A-a Gradient Oxyhemoglobin Carboxyhemoglobin Methemoglobin Reduced Hemoglobin Total Hemoglobin O2 Delivery Device O2 Liters/Min Minute Volume Vent Rate Vent Mode FiO2 Tidal Volume PEEP Peak Inspir Pressure Pressure Support Sodium Potassium Chloride Carbon Dioxide Anion Gap BUN Creatinine Estim Creat Clear Calc Estimated GFR Glucose POC Capillary Glucose 177 H 192 H Calcium Phosphorus Magnesium Total Bilirubin AST ALT Alkaline Phosphatase Total Protein Albumin Quality VTE Prophylaxis VTE prophylaxis: pharmacologic ordered
[2024-04-07] MEDS: ALBUMIN HUMAN 25% 12.5 GM/50ML 50 ML IVPB (15:05)
[2024-04-07 15:37] LABS: Triglycerides 72 mg/dL (<150)
[2024-04-07 15:54] LABS: Glucose Point of Care 122 mg/dl (65-105)
[2024-04-07] MEDS: EPOETIN ALFA-EPBX 4,000 UNITS/ML VIAL 4000 UNITS IV PUSH (16:34)
[2024-04-07] MEDS: METOPROLOL TARTRATE 12.5 MG TABLET PO (18:04)
[2024-04-07] MEDS: LACTULOSE 20 GM/30 ML UDC FEED TUBE (18:04)
[2024-04-07] MEDS: SENNA/DOCUSATE SODIUM TABLET 1 TAB PO (20:54)
[2024-04-07 23:33] LABS: Glucose Point of Care 128 mg/dl (65-105)
[2024-04-08] VITALS (33 sets, daily range): BP systolic 96–150; BP diastolic 60–92; PULSE 77–113; RESP 15–27; TEMP 35.5–37.5; O2SAT 90–98
[2024-04-08] MEDS: METOPROLOL TARTRATE 12.5 MG TABLET PO ×4 (01:00→17:06)
[2024-04-08 01:21] LABS: Glucose Point of Care 125 mg/dl (65-105)
[2024-04-08] MEDS: FENTANYL 2,500MCG/NS250ML(*CRX 2,500 MCG/250 ML BAG 10 MCG IV CONT (03:22)
[2024-04-08 05:03] LABS: Alveolar/Arterial O2 Gradient 101.1 mmHg; Base Excess ABG 1.8 mEq/l (+/-2.0); Carboxyhemoglobin 0.2 % THb (0-2.0); Fractional Inspired Oxygen 35 %; HCO3 ABG 26.7 mEq/l (22.0-26.0); Oxygen Content ABG 14.2 %vol (16.0-22.0); Oxygen Saturation ABG 97.5 % (95.0-100.0); Oxyhemoglobin 96.9 % THb (90.0-100.0); PCO2 ABG 43.2 mmHg (35.0-45.0); PO2 ABG 98.2 mmHg (80.0-100.0); PO2 FiO2 Ratio Arterial Blood 2.81 %; Reduced Hemoglobin 2.9 %THb (0-5.0); Total Hemoglobin 10.3 g/dL (12.0-18.0); pH ABG 7.409 (7.350-7.450)
[2024-04-08 05:04] LABS: Site Drawn RIGHT RADIAL
[2024-04-08 05:05] LABS: Arterial Blood Gas PEEP 10 cmH2O; Arterial Blood Gas Tidal Volume 400 ml; Arterial Blood Gas Vent Mode CMV; Arterial Blood Gas Ventilator rate 24 /MIN; Device VENTILATOR; Modified Allen's Test Pass
[2024-04-08] MEDS: CENTRAL LINE FLUSH 10 ML IV PUSH ×3 (05:40→20:24)
[2024-04-08 06:07] LABS: Glucose Point of Care 107 mg/dl (65-105)
[2024-04-08 06:13] LABS: Basophils Percent Auto 0.1 % (0.2-1.2); Eosinophils Percent Auto 0.2 % (0-4.4); Hematocrit 30.4 % (37.0-47.0); Hemoglobin 9.6 g/dL (12.0-15.0); Immature Granulocyte Absolute 0.16 K/mm3 (0.00-0.031); Immature Granulocyte Percent A 1.4 % (0-0.5); Lymphocytes Absolute Auto 0.35 K/mm3 (0.9-3.2); Mean Corpuscular HGB Conc 31.6 g/dl (32-36); Mean Corpuscular Hemoglobin 29.7 pg (26-34); Mean Corpuscular Volume 94.1 fl (80-100); Mean Platelet Volume 10.1 fl (7.4-10.4); Monocytes Absolute Auto 0.6 K/mm3 (0.1-0.6); Monocytes Percent Auto 5.3 % (2.6-8.5); Neutrophils Absolute Auto 10.4 K/mm3 (1.3-6.7); Platelet Count Result 268 k/mm3 (150-375); Red Blood Count 3.23 M/mm3 (4.2-5.4); Red Cell Distribution Width 17.2 % (11.5-14.5); White Blood Count 11.5 K/mm3 (4.5-10.0)
[2024-04-08 06:40] LABS: Lactic Acid Reflex 0.7 mmol/L (0.7-2.0)
[2024-04-08 06:43] LABS: Alanine Aminotransferase 256 U/L (6-35); Albumin Level 2.8 g/dL (3.5-5.1); Alkaline Phosphatase 141 U/L (38-126); Anion Gap 8 mmol/L (4-12); Aspartate Amino Transferase 75 U/L (14-36); Bilirubin,Total 0.6 mg/dL (0.2-1.3); Blood Urea Nitrogen 80 mg/dL (7-17); Calcium 8.4 mg/dL (8.4-10.2); Carbon Dioxide 27 mmol/L (22-30); Chloride 103 mmol/L (98-107); Estimated CRCL calculation 33 ml/min; Estimated Glomerular Filt Rate 20; Glucose 104 mg/dL (65-110); Magnesium 2.5 mg/dL (1.6-2.3); Phosphorus 5.8 mg/dL (2.5-4.5); Potassium 4.9 mmol/L (3.4-5.0); Sodium 138 mmol/L (137-145)
[2024-04-08 06:46] LABS: Anisocytosis 1+; Burr Cells 1+; Ovalocytes 1+; Platelet Estimate Adequate (Adequate)
[2024-04-08 06:47] LABS: Schistocytes None Seen
[2024-04-08] MEDS: APIXABAN 5 MG TABLET PO ×2 (08:11→20:23)
[2024-04-08] MEDS: CYANOCOBALAMIN 1,000 MCG TABLET 1000 MCG PO ×2 (08:11→17:06)
[2024-04-08] MEDS: PANTOPRAZOLE SODIUM IV 40 MG VIAL IV PUSH (08:13)
[2024-04-08] MEDS: polyethylene glycoL 3350 17 GM POWD.PACK PO (08:13)
[2024-04-08 08:19] LABS: Glucose Point of Care 91 mg/dl (65-105)
[2024-04-08] MEDS: MINERAL OIL/WHITE PETROLATUM OINTMENT 1 APPLIC EACH EYE ×2 (08:29→20:23)
--- NOTE | 2024-04-08 09:06 | PCRCNOTE ---
Pt placed in ASV 0900
--- NOTE | 2024-04-08 09:38 | WPDINTPN ---
Progress Note: A&P Assessment and Plan (1) Acute hypoxic respiratory failure: Code(s): J96.01 - Acute respiratory failure with hypoxia Status: Acute Assessment and Plan: Acute hypoxic respiratory failure secondary to pneumonia and congestive heart failure Patient now emergently intubated 03/28 -03/28: Repeat PCR was positive RSV -continue isolation -chest x-ray and ABGs reviewed this morning -Currently PEEP to 10 and FiO2 down to 30% -patient will require additional fluid removal before considering weaning from mechanical ventilation -sedated with fentanyl and Versed infusion, maintain RASS of 0 to -2, daily sedation vacation -status post stress dose steroids. -discussed with Nephrology, patient did have if improved urine output over the last 24 hours, and since she did not tolerate dialysis well, entry level marketing assistant recommended commended Bumex 2 mg IV x1. If she does not respond well, will have to dialyze the patient 04/06: Patient did respond to Bumex that was given yesterday with 1900 mL urine output in the last 24 hours 04/07: A new dialysis catheter has been placed in the left IJ, currently functioning well. Have discussed with Nephrology to continue to remove fluid 04/08: Patient was dialyzed yesterday with 1000 mL in fluid removal, urine output has been adequate, I have asked the bedside RN to turn of the sedation, patient remains somnolent, will place patient on ASV, start Precedex infusion since she is getting tachycardic and hypertensive. Once she is more awake will place her on SBT and evaluate for extubation 03/27 CTA chest Impression: No evidence of pulmonary embolus, aortic dissection, or aortic aneurysm. Extensive right lower lobe pneumonia. Probable mildly prominent reactive lymphadenopathy the right axilla and subcarinal region. (2) Sepsis: Code(s): A41.9 - Sepsis, unspecified organism Status: Acute Assessment and Plan: Sepsis/septic shock secondary to community-acquired pneumonia, initial procalcitonin level 4.4 Blood cultures ordered and negative till now Sputum cultures negative Urine Legionella and pneumococcal antigen negative Status post cefepime and azithromycin MRSA screen negative. Vancomycin discontinued (3) Diabetes: Code(s): E11.9 - Type 2 diabetes mellitus without complications Status: Chronic Assessment and Plan: Status post insulin infusion Will hold Lantus to 60 units q.12 since blood sugars on trending down after switching patient to Nepro on tube feeds Status post steroids, also she got dialyzed better with the new dialysis catheter in the right IJ, likely dropped her blood sugars. -continue Accu-Cheks and sliding scale insulin - Continue tube feeds (4) Atrial fibrillation with RVR: Code(s): I48.91 - Unspecified atrial fibrillation Status: Acute Assessment and Plan: Patient was amiodarone infusion which has been switched to p.o. amiodarone per tube metoprolol by Cardiology Patient is anticoagulated with Eliquis Echo Summary 1. Very technically difficult study with limited views. 2. Left ventricular chamber dimension is normal. 3. Left ventricular systolic function is at lower limits of normal, estimated at 50-55%. 4. Left atrial chamber dimension is moderately enlarged (5) Community acquired pneumonia: Code(s): J18.9 - Pneumonia, unspecified organism Status: Acute Assessment and Plan: See above (6) Altered mental status: Code(s): R41.82 - Altered mental status, unspecified Status: Acute Assessment and Plan: Likely secondary to hypoxia. Patient had CT scan of the head recently done which was unremarkable Repeat head CT on 03/28 was again unremarkable Ammonia levels within normal limit TSH was normal -04/05: patient did open her eyes and follows simple commands and lower extremity (7) Electrolyte abnormality: Code(s): E87.8 - Other disorders of electrolyte and fluid balance, not elsewhere classified Status: Acute Assessment and Plan: Patient on dialysis (8) Shock: Code(s): R57.9 - Shock, unspecified Status: Acute Assessment and Plan: RESOLVED Patient was on Levophed and vasopressin infusion which are currently off -off stress dose steroid - status post 25% albumin -Hold further crystalloids (9) VINCENT (acute kidney injury): Code(s): N17.9 - Acute kidney failure, unspecified Status: Acute Assessment and Plan: Increase in creatinine and drop in urine output likely secondary to shock Patient received IV fluids and 5% albumin earlier in the course. norm CK level Renal ultrasound showed No hydronephrosis. Perinephric fluid collection adjacent to the left lower pole. Nephrology following Continued maintain mean arterial pressure with vasopressors if needed 2/1 Discussed with entry level marketing assistant and patient's family. Discussed risks and benefits of starting hemodialysis. Wet Cotton Feeder and patient's family in agreement. Patient's consented to proceed. Temporary dialysis catheter placed. Patient was dialyzed. Further dialysis per as per Nephrology -04/04: Patient did not tolerate dialysis as she became tachypneic, tachycardic and hypotensive requiring restarting Levophed. -04/05: Wet Cotton Feeder recommended giving Bumex 2 mg IV x1 since patient had slightly improved urine output over the last 24 hours and a creatinine and BUN trending downward, - will monitor urine output, renal function and electrolytes 04/06: Discuss with Nephrology, patient received dialysis today with no removal of fluid 04/07: New left IJ dialysis catheter was inserted today, currently functioning well. Right IJ dialysis catheter was removed -will discuss with Nephrology regarding repeating dialysis today (10) Elevated liver enzymes: Code(s): R74.8 - Abnormal levels of other serum enzymes Status: Acute Assessment and Plan: Patient is status post cholecystectomy Elevated AST ALT and alkaline phosphatase likely secondary to shock liver Hold statin Right upper quadrant ultrasound - Status post cholecystectomy. Pancreas poorly visualized. Otherwise normal abdominal ultrasound findings. While hepatitis panel was negative Levels were increasing I have discussed with Cardiology regarding potential amiodarone related hepatotoxicity. Patient was on IV amiodarone earlier for rate control as patient was in AFib with RVR. It was switched to p.o. as the rate improved. 04/03 amiodarone was held GI consult and following LFTs have been improving, continue to monitor Plan DVT prophylaxis -Eliquis Stress ulcer prophylaxis -protonix Nutrition -tolerating tube feeds, no bowel movements, currently on MiraLax, added lactulose x1 Code Status - Full Code Total Critical Care Time - 33 minutes Discussed with and daughter in rounds and updated them with patient's condition and plan of care. I answered all the questions Due to a high probability of clinically significant, life threatening deterioration, the patient required my highest level of preparedness to intervene emergently and I personally spent this critical care time directly and personally managing the patient. This critical care time included obtaining a history; examining the patient; pulse oximetry; ordering and review of studies; arranging urgent treatment with development of a management plan; evaluation of patient's response to treatment; frequent reassessment; and discussions with other providers. It was exclusive of separately billable procedures and treating other patients and teaching time. Please see Assessment and Plan section and the rest of the note for further information on patient assessment and treatment This dictation may have been done utilizing a voice recognition system. Attempts have been made to correct errors. However, there may be uncorrected grammatical, spelling, and recognitions errors present. Subjective Date/time seen: 04/08/24 09:38 Interval history: 68yo female with AFib s/p SHAYY cardioversion that was unsuccessful, KAREN not using CPAP, DM, HTN and endometrial cancer who presents with shortness of breath, leg swelling and weight gain over the past few weeks. Now in with respiratory failure secondary to pneumonia with septic shock. Intubated and on mechanical ventilation. RSV positive, acute kidney injury status post dialysis catheter and dialysis 04/08: A new Left IJ dialysis catheter was inserted 04/08/2024: Patient seen and examined the ICU, remains intubated, CMV mode of ventilation, peep of 10, 35% FiO2. Sedated with fentanyl and Versed infusion. Patient opens her eyes, follows simple commands in all extremities. Patient is tolerating tube feeds, afebrile, dialyzed on a yesterday with 1000 mL in fluid removal, patient also had adequate urine output. BUN and creatinine have improved this morning Review of Systems Review of Systems: ROS unobtainable: Yes unobtainable due to endotracheal tube, unobtainable due to medical condition and unobtainable due to mental status Exam Narrative: General: Pt is now sedated, intubated and on mechanical ventilation Lungs/Chest: Coarse breath sounds bilaterally, no wheezing, decreased air entry at bases Cardiac: Irregularly irregular, heart rates in the 90s to 100s Circulation: Pedal pulses are intact and symmetrical. Abdomen: Normoactive bowel sounds bowel sounds. Morbidly Obese. Soft. NT. ND. Extremities: No clubbing, cyanosis, bilateral upper and lower extremity edema improving : Can in place Neurologic: Patient is intubated and sedated, opens her eyes, follows simple command in all extremities, pupils equal and reactive to light Objective Data Vital Signs Vital Signs: Vital Signs - 24 hr 04/07/24 10:04/07/24 10:00 04/07/24 10:06 Temperature 98.6 F Pulse Rate 91 91 91 Respiratory Rate 22 H 27 H Blood Pressure 88/57 L Pulse Oximetry 96 Oxygen Delivery Fraction of Inspired Oxygen 04/07/24 10:06 04/07/24 11:36 04/07/24 12:00 Temperature Pulse Rate 91 86 89 Respiratory Rate 27 H 26 H Blood Pressure Pulse Oximetry 94 Oxygen Delivery Mechanical Ventilation Fraction of Inspired Oxygen 35 04/07/24 12:00 04/07/24 12:00 04/07/24 12:00 Temperature 98.3 F Pulse Rate 89 89 Respiratory Rate 26 H Blood Pressure 101/62 Pulse Oximetry 97 Oxygen Delivery Fraction of Inspired Oxygen 35 04/07/24 12:29 04/07/24 12:58 04/07/24 13:25 Temperature Pulse Rate 89 83 Respiratory Rate 26 H Blood Pressure Pulse Oximetry Oxygen Delivery Fraction of Inspired Oxygen 35 04/07/24 13:25 04/07/24 13:38 04/07/24 14:00 Temperature 98.3 F Pulse Rate 83 80 83 Respiratory Rate 26 H Blood Pressure 99/60 L Pulse Oximetry 95 Oxygen Delivery Mechanical Ventilation Fraction of Inspired Oxygen 35 04/07/24 14:00 04/07/24 14:00 04/07/24 14:04 Temperature 98.3 F Pulse Rate 83 83 90 Respiratory Rate 28 H 28 H Blood Pressure 92/59 L 87/60 L Pulse Oximetry 96 Oxygen Delivery Fraction of Inspired Oxygen 04/07/24 14:15 04/07/24 14:30 04/07/24 14:38 Temperature Pulse Rate 84 94 83 Respiratory Rate 28 H Blood Pressure 90/64 L 90/59 L Pulse Oximetry Oxygen Delivery Fraction of Inspired Oxygen 04/07/24 14:45 04/07/24 15:00 04/07/24 15:15 Temperature Pulse Rate 87 126 H 96 Respiratory Rate Blood Pressure 90/59 L 97/65 L 98/65 L Pulse Oximetry Oxygen Delivery Fraction of Inspired Oxygen 04/07/24 15:30 04/07/24 15:45 04/07/24 16:00 Temperature Pulse Rate 96 94 95 Respiratory Rate 22 H Blood Pressure 98/65 L 97/63 L Pulse Oximetry Oxygen Delivery Fraction of Inspired Oxygen 04/07/24 16:00 04/07/24 16:00 04/07/24 16:00 Temperature Pulse Rate 95 96 Respiratory Rate 22 H Blood Pressure Pulse Oximetry Oxygen Delivery Fraction of Inspired Oxygen 35 04/07/24 16:00 04/07/24 16:00 04/07/24 16:15 Temperature 98.6 F Pulse Rate 95 91 104 H Respiratory Rate 22 H Blood Pressure 95/63 L 95/63 L 117/82 Pulse Oximetry 96 Oxygen Delivery Fraction of Inspired Oxygen 04/07/24 16:25 04/07/24 16:30 04/07/24 16:45 Temperature Pulse Rate 99 110 H 88 Respiratory Rate Blood Pressure 118/81 109/72 Pulse Oximetry 94 Oxygen Delivery Mechanical Ventilation Fraction of Inspired Oxygen 35 04/07/24 17:00 04/07/24 17:15 04/07/24 17:30 Temperature Pulse Rate 92 109 H 89 Respiratory Rate Blood Pressure 111/79 110/75 114/75 Pulse Oximetry Oxygen Delivery Fraction of Inspired Oxygen 04/07/24 17:41 04/07/24 17:49 04/07/24 18:00 Temperature 98.5 F Pulse Rate 101 H 108 H 96 Respiratory Rate 28 H 25 H Blood Pressure 105/66 113/65 Pulse Oximetry Oxygen Delivery Fraction of Inspired Oxygen 04/07/24 18:00 04/07/24 18:00 04/07/24 18:00 Temperature 98.4 F Pulse Rate 96 95 95 Respiratory Rate 25 H 22 H Blood Pressure 118/72 Pulse Oximetry 96 Oxygen Delivery Fraction of Inspired Oxygen 04/07/24 18:04 04/07/24 20:00 04/07/24 20:00 Temperature Pulse Rate 96 87 87 Respiratory Rate 24 H 24 H Blood Pressure Pulse Oximetry Oxygen Delivery Fraction of Inspired Oxygen 04/07/24 20:00 04/07/24 20:00 04/07/24 20:00 Temperature Pulse Rate 89 Respiratory Rate Blood Pressure Pulse Oximetry Oxygen Delivery Mechanical Ventilation Fraction of Inspired Oxygen 35 35 04/07/24 20:00 04/07/24 20:57 04/07/24 22:00 Temperature 98.8 F Pulse Rate 89 92 100 Respiratory Rate 26 H 24 H Blood Pressure 102/62 Pulse Oximetry 97 97 Oxygen Delivery Mechanical Ventilation Fraction of Inspired Oxygen 35 04/07/24 22:00 04/07/24 22:00 04/07/24 22:00 Temperature 98.9 F Pulse Rate 100 100 100 Respiratory Rate 24 H 24 H Blood Pressure 117/67 Pulse Oximetry 97 Oxygen Delivery Fraction of Inspired Oxygen 04/07/24 23:20 04/08/24 00:00 04/08/24 00:00 Temperature Pulse Rate 104 H 104 H 98 Respiratory Rate 24 H 24 H Blood Pressure Pulse Oximetry 96 Oxygen Delivery Mechanical Ventilation Fraction of Inspired Oxygen 35 04/08/24 00:00 04/08/24 00:00 04/08/24 00:00 Temperature Pulse Rate 105 H Respiratory Rate Blood Pressure Pulse Oximetry Oxygen Delivery Mechanical Ventilation Fraction of Inspired Oxygen 35 35 04/08/24 00:00 04/08/24 01:00 04/08/24 01:14 Temperature 96 F L Pulse Rate 105 H 113 H 102 H Respiratory Rate 24 H 24 H Blood Pressure 115/65 Pulse Oximetry 96 Oxygen Delivery Fraction of Inspired Oxygen 04/08/24 02:00 04/08/24 02:00 04/08/24 02:53 Temperature 99.2 F Pulse Rate 93 93 104 H Respiratory Rate 24 H Blood Pressure 103/73 Pulse Oximetry 96 97 Oxygen Delivery Mechanical Ventilation Fraction of Inspired Oxygen 35 04/08/24 03:22 04/08/24 04:00 04/08/24 04:00 Temperature Pulse Rate 90 Respiratory Rate 27 H Blood Pressure Pulse Oximetry Oxygen Delivery Mechanical Ventilation Fraction of Inspired Oxygen 35 35 04/08/24 04:00 04/08/24 04:00 04/08/24 04:00 Temperature 99.1 F Pulse Rate 89 89 89 Respiratory Rate 27 H 27 H Blood Pressure 96/61 L Pulse Oximetry 95 Oxygen Delivery Fraction of Inspired Oxygen 04/08/24 04:00 04/08/24 05:00 04/08/24 05:39 Temperature Pulse Rate 89 101 H 87 Respiratory Rate 24 H Blood Pressure Pulse Oximetry 98 Oxygen Delivery Mechanical Ventilation Fraction of Inspired Oxygen 35 04/08/24 05:47 04/08/24 06:00 04/08/24 06:00 Temperature 98.7 F Pulse Rate 104 H 92 92 Respiratory Rate 24 H Blood Pressure 118/78 Pulse Oximetry 97 97 Oxygen Delivery Mechanical Ventilation Fraction of Inspired Oxygen 35 04/08/24 06:00 04/08/24 06:00 04/08/24 06:03 Temperature Pulse Rate 92 92 94 Respiratory Rate 24 H 24 H Blood Pressure Pulse Oximetry 97 Oxygen Delivery Mechanical Ventilation Fraction of Inspired Oxygen 35 04/08/24 07:15 04/08/24 08:05 04/08/24 08:05 Temperature Pulse Rate 85 77 77 Respiratory Rate 24 H 24 H 24 H Blood Pressure Pulse Oximetry Oxygen Delivery Fraction of Inspired Oxygen 04/08/24 09:02 Temperature Pulse Rate 85 Respiratory Rate Blood Pressure Pulse Oximetry 95 Oxygen Delivery Mechanical Ventilation Fraction of Inspired Oxygen 35 Intake/Output Intake/Output: Intake & Output 04/05/24 04/06/24 04/07/24 04/08/24 23:59 23:59 23:59 23:59 Intake Total 2020.1 1773.5 1873.3 185.0 Output Total 1300 1900 2250 350 Balance 720.1 -126.5 -376.7 -165.0 Meds/Results Medications: Active Medications Generic Name Dose Route Start Last Admin Trade Name Freq PRN Reason Stop Dose Admin Acetaminophen 650 mg 03/27/24 14:41 03/29/24 05:11 Acetaminophen 325 Mg Tablet PO 650 mg Q4H PRN Administration Mild Pain (1-3) or Fever Alteplase, Recombinant 2 mg 04/06/24 03:11 04/06/24 03:22 Alteplase 2 Mg Vial (Cathflo) IV PUSH 2 mg ONCE PRN Administration Line Occlusion Amiodarone HCl 400 mg 04/01/24 10:40 04/03/24 08:31 Amiodarone Hcl 200 Mg Tablet PO 400 mg DAILY LAVERNE Administration Apixaban 5 mg 03/27/24 12:35 04/08/24 08:11 Apixaban 5 Mg Tablet PO 5 mg Q12HR LAVERNE Administration Cyanocobalamin 1,000 mcg 03/27/24 17:00 04/08/24 08:11 Cyanocobalamin 1,000 Mcg Tablet PO 1,000 mcg BID LAVERNE Administration Dextrose 12.5 gm 03/27/24 08:57 Dextrose 50% 25 Gm/50 Ml Syringe IV PUSH PRN PRN Hypoglycemia Protocol Glucagon 1 mg 03/27/24 08:57 Glucagon For Inj 1 Mg Vial IM PRN PRN Hypoglycemia Protocol Glucose 15 gm 03/27/24 08:57 Glucose Oral Gel 15 Gm Of Glucse In 37.5 Gm Tube PO PRN PRN Hypoglycemia Protocol Dextrose 1,000 mls @ 100 mls/hr 03/27/24 08:57 Dextrose 5% 1,000 Ml IVPB PRN PRN Hypoglycemia Protocol Fentanyl Citrate 2,500 mcg in 250 mls @ 0 mls/hr 03/28/24 15:45 04/08/24 08:05 Fentanyl 2,500 Mcg/Ns 250 Ml IV CONT 04/16/24 23:59 0 mcg/hr .Q0M LAVERNE 0 mls/hr Titration Protocol Midazolam HCl 100 mg in 100 mls @ 0 mls/hr 03/28/24 19:30 04/08/24 08:05 Versed 100 Mg/Ns 100 Ml IV CONT 0 mg/hr .Q0M LAVERNE 0 mls/hr Titration Protocol Albumin Human 50 mls @ 999 mls/hr 04/03/24 09:19 04/07/24 15:05 Albutein IVPB 05/03/24 09:18 100 mls/hr Q10M PRN Administration HYPOTENSION Dexmedetomidine HCl 400 mcg in 100 mls @ 8.1 mls/hr 04/08/24 09:40 Precedex 400 Mcg/100 Ml IV CONT .[id number] LAVERNE Protocol 0.2 MCG/KG/HR Insulin Aspart 4 - 8 units 03/29/24 13:00 04/08/24 08:14 Insulin Aspart (*Bkc) 100 Units/Ml SUB-Q Not Given Q4HR [facility] Protocol Insulin Glargine 60 units 04/01/24 09:00 04/08/24 08:20 Insulin Glargine (*Bkc) 100 Units/Ml SUB-Q Not Given Q12HR [facility] Metoprolol Tartrate 12.5 mg 04/07/24 12:00 04/08/24 05:39 Metoprolol Tartrate 12.5 Mg Tablet PO 12.5 mg Q6HR LAVERNE Administration Multi-Ingred Cream/Lotion/Oil/Oint 1 applic 03/28/24 21:00 04/08/24 08:29 Mineral Oil/White Petrolatum Ointment EACH EYE 1 applic Q12HR LAVERNE Administration Pantoprazole Sodium 40 mg 03/29/24 09:00 04/08/24 08:13 Pantoprazole Sodium Iv 40 Mg Vial IV PUSH 40 mg DAILY LAVERNE Administration Polyethylene Glycol 17 gm 04/04/24 11:45 04/08/24 08:13 Polyethylene Glycol 3350 17 Gm Powd.Pack PO 17 gm QAM LAVERNE Administration Rosuvastatin Calcium 20 mg 03/28/24 09:00 03/31/24 09:28 Rosuvastatin 20 Mg Tablet PO Not Given DAILY LAVERNE Senna/Docusate Sodium 1 tab 04/07/24 21:00 04/07/24 20:54 Senna/Docusate Sodium Tablet PO 1 tab HS LAVERNE Administration Sodium Chloride 10 ml 03/28/24 22:00 04/08/24 05:40 Central Line Flush IV PUSH 10 ml Q8HR LAVERNE Administration Sodium Chloride 10 ml 03/28/24 16:14 Central Line Flush IV PUSH PRN PRN with TPN bag changes Sodium Chloride 20 ml 03/28/24 16:14 Central Line Flush IV PUSH PRN PRN after blood draws Radiology Results: ITS Impressions Chest CTA 03/27/24 06:41 Impression: No evidence of pulmonary embolus, aortic dissection, or aortic aneurysm. Extensive right lower lobe pneumonia. Probable mildly prominent reactive lymphadenopathy the right axilla and subcarinal region. Head CT 03/28/24 22:59 IMPRESSION: 1. Normal brain. Abdomen X-Ray 03/29/24 08:59 IMPRESSION: 1. Lines and tubes in expected positions. 2. Diffuse bilateral lung disease, right greater than left, consistent with multifocal pneumonia. Renal Ultrasound 03/31/24 15:34 IMPRESSION: No hydronephrosis. Perinephric fluid collection adjacent to the left lower pole. Abdomen Ultrasound 03/31/24 15:39 IMPRESSION: Status post cholecystectomy. Pancreas poorly visualized. Otherwise normal abdominal ultrasound findings. Chest X-Ray 04/08/24 06:47 Impression: Probable mild pulmonary edema pattern, right worse than left, versus infection. Findings are stable from prior exam. Support tubes in place, as above. Labs Labs: Laboratory Results - last 24 hr 04/07/24 04/07/24 04/07/24 08:06 11:23 15:16 WBC RBC Hgb Hct MCV MCH MCHC RDW Plt Count MPV Immature Gran % (Auto) Neut % (Auto) Lymph % (Auto) [place] % (Auto) Eos % (Auto) Baso % (Auto) Lymph # (Auto) [place] # (Auto) Eos # (Auto) Baso # (Auto) Abs Immat Gran (auto) Absolute Neuts (auto) Absolute Nucleated RBC Nucleated RBC % Platelet Estimate Anisocytosis Ovalocytes Kathy Cells Schistocytes Puncture Site ABG pH ABG pCO2 ABG pO2 ABG PO2/FiO2 Ratio ABG HCO3 ABG O2 Saturation ABG O2 Content ABG Base Excess A-a Gradient Oxyhemoglobin Carboxyhemoglobin Methemoglobin Reduced Hemoglobin Total Hemoglobin O2 Delivery Device O2 Liters/Min Minute Volume Vent Rate Vent Mode FiO2 Tidal Volume PEEP Peak Inspir Pressure Pressure Support Sodium Potassium Chloride Carbon Dioxide Anion Gap BUN Creatinine Estim Creat Clear Calc Estimated GFR Glucose POC Capillary Glucose 177 H 192 H Lactic Acid Calcium Phosphorus Magnesium Total Bilirubin AST ALT Alkaline Phosphatase Total Protein Albumin Triglycerides 72 04/07/24 04/07/24 04/08/24 15:50 20:51 01:03 WBC RBC Hgb Hct MCV MCH MCHC RDW Plt Count MPV Immature Gran % (Auto) Neut % (Auto) Lymph % (Auto) [place] % (Auto) Eos % (Auto) Baso % (Auto) Lymph # (Auto) [place] # (Auto) Eos # (Auto) Baso # (Auto) Abs Immat Gran (auto) Absolute Neuts (auto) Absolute Nucleated RBC Nucleated RBC % Platelet Estimate Anisocytosis Ovalocytes Kathy Cells Schistocytes Puncture Site ABG pH ABG pCO2 ABG pO2 ABG PO2/FiO2 Ratio ABG HCO3 ABG O2 Saturation ABG O2 Content ABG Base Excess A-a Gradient Oxyhemoglobin Carboxyhemoglobin Methemoglobin Reduced Hemoglobin Total Hemoglobin O2 Delivery Device O2 Liters/Min Minute Volume Vent Rate Vent Mode FiO2 Tidal Volume PEEP Peak Inspir Pressure Pressure Support Sodium Potassium Chloride Carbon Dioxide Anion Gap BUN Creatinine Estim Creat Clear Calc Estimated GFR Glucose POC Capillary Glucose 122 H 128 H 125 H Lactic Acid Calcium Phosphorus Magnesium Total Bilirubin AST ALT Alkaline Phosphatase Total Protein Albumin Triglycerides 04/08/24 04/08/24 04/08/24 04:44 05:44 05:45 WBC 11.5 H RBC 3.23 L Hgb 9.6 L Hct 30.4 L MCV 94.1 MCH 29.7 MCHC 31.6 L RDW 17.2 H Plt Count 268 MPV 10.1 Immature Gran % (Auto) 1.4 H Neut % (Auto) 90.0 H Lymph % (Auto) 3.0 L [place] % (Auto) 5.3 Eos % (Auto) 0.2 Baso % (Auto) 0.1 L Lymph # (Auto) 0.35 L [place] # (Auto) 0.6 Eos # (Auto) 0.0 Baso # (Auto) 0.0 Abs Immat Gran (auto) 0.16 H Absolute Neuts (auto) 10.4 H Absolute Nucleated RBC 0.000 Nucleated RBC % 0.0 Platelet Estimate Adequate Anisocytosis 1+ Ovalocytes 1+ [place] Cells 1+ Schistocytes None seen Puncture Site Right radial ABG pH 7.409 ABG pCO2 43.2 ABG pO2 98.2 ABG PO2/FiO2 Ratio 2.81 ABG HCO3 26.7 H ABG O2 Saturation 97.5 ABG O2 Content 14.2 L ABG Base Excess 1.8 A-a Gradient 101.1 Oxyhemoglobin 96.9 Carboxyhemoglobin 0.2 Methemoglobin 0.0 Reduced Hemoglobin 2.9 Total Hemoglobin 10.3 L O2 Delivery Device Ventilator O2 Liters/Min Not Reportable Minute Volume Not Reportable Vent Rate 24 Vent Mode Cmv FiO2 35 Tidal Volume 400 PEEP 10 Peak Inspir Pressure Not Reportable Pressure Support Not Reportable Sodium 138 Potassium 4.9 Chloride 103 Carbon Dioxide 27 Anion Gap 8 BUN 80 H D Creatinine 2.42 H Estim Creat Clear Calc 33 Estimated GFR 20 L Glucose 104 POC Capillary Glucose 107 H Lactic Acid 0.7 Calcium 8.4 Phosphorus 5.8 H Magnesium 2.5 H Total Bilirubin 0.6 AST 75 H ALT 256 H Alkaline Phosphatase 141 H Total Protein 6.0 L Albumin 2.8 L Triglycerides 04/08/24 08:13 WBC RBC Hgb Hct MCV MCH MCHC RDW Plt Count MPV Immature Gran % (Auto) Neut % (Auto) Lymph % (Auto) [place] % (Auto) Eos % (Auto) Baso % (Auto) Lymph # (Auto) [place] # (Auto) Eos # (Auto) Baso # (Auto) Abs Immat Gran (auto) Absolute Neuts (auto) Absolute Nucleated RBC Nucleated RBC % Platelet Estimate Anisocytosis Ovalocytes Kathy Cells Schistocytes Puncture Site ABG pH ABG pCO2 ABG pO2 ABG PO2/FiO2 Ratio ABG HCO3 ABG O2 Saturation ABG O2 Content ABG Base Excess A-a Gradient Oxyhemoglobin Carboxyhemoglobin Methemoglobin Reduced Hemoglobin Total Hemoglobin O2 Delivery Device O2 Liters/Min Minute Volume Vent Rate Vent Mode FiO2 Tidal Volume PEEP Peak Inspir Pressure Pressure Support Sodium Potassium Chloride Carbon Dioxide Anion Gap BUN Creatinine Estim Creat Clear Calc Estimated GFR Glucose POC Capillary Glucose 91 Lactic Acid Calcium Phosphorus Magnesium Total Bilirubin AST ALT Alkaline Phosphatase Total Protein Albumin Triglycerides Quality VTE Prophylaxis VTE prophylaxis: pharmacologic ordered
[2024-04-08] MEDS: dexmedeTOMIDine 400 MCG/100 ML 400 MCG/100 ML BAG 8.1 MCG IV CONT (09:41)
--- NOTE | 2024-04-08 10:46 | P.PNNP_ITS ---
Progress Note: A&P Assessment and Plan (1) VINCENT (acute kidney injury): Code(s): N17.9 - Acute kidney failure, unspecified Status: Acute Assessment and Plan: * as noted by trend of labs since admission * normal creatinine at baseline and on admission * multifactorial etiology: * hemodynamic instability/shock * infection/sepsis (pneumonia + RSV) * ARB + HCTZ use prior to admission * contrast (CTA of chest on 03/27) * hypoxia * afib with RVR * prerenal factors (?) * evaluation to date noted: * renal ultrasound without hydro * urine electrolytes prerenal * urine eosinophils negative * CPK normal * initiated on [employer]/dialysis on 04/02 * better urine output in the last 24 hours * s/p IV diuretics on 04/05 -- reasonable UOP but rise in BUN + creatinine noted * HD yesterday * follow trend of repeat labs and UOP to assess for renal recovery (2) Acute hypoxic respiratory failure: Code(s): J96.01 - Acute respiratory failure with hypoxia Status: Acute Assessment and Plan: * seconeary to pneumonia, RSV, and possible CHF * CTA of chest noted: * no evidence of pulmonary embolus, aortic dissection, or aortic aneurysm * extensive right lower lobe pneumonia * probable mildly prominent reactive lymphadenopathy the right axilla and subcarinal region * emergently intubated 03/28 * completed course of steroids * follow respiratory status * weaning as tolerated (3) Septic shock: Code(s): A41.9 - Sepsis, unspecified organism; R65.21 - Severe sepsis with septic shock Status: Acute Assessment and Plan: * secondary to extensive pneumonia +/- RSV * on antibiotics * cultures negative to date * off pressors currently (4) Atrial fibrillation with RVR: Code(s): I48.91 - Unspecified atrial fibrillation Status: Acute Assessment and Plan: * rate control strategy * on Eliquis * Echo results noted * Cardiology following (5) Anemia: Code(s): D64.9 - Anemia, unspecified Status: Acute Assessment and Plan: * likely a manifestation of VINCENT and acute illness * no need for DANG at this time * follow trend of H/H (6) Community acquired pneumonia: Code(s): J18.9 - Pneumonia, unspecified organism Status: Acute Assessment and Plan: * as noted by admission imaging * culture data noted (negative to date) * on antibiotics (7) Elevated liver enzymes: Code(s): R74.8 - Abnormal levels of other serum enzymes Status: Acute Assessment and Plan: * thought to be secondary to shock liver * statin on hold * liver enzymes fluctuating * follow trend (8) Diabetes: Code(s): E11.9 - Type 2 diabetes mellitus without complications Status: Chronic Assessment and Plan: * follow accu-cheks * glycemic control per hospitalist/merchandising representative Will continue to follow. L Subjective Date/time seen: 04/08/24 10:46 Interval history: Follow-up for acute kidney injury/acute renal failure (currently requiring hemodialysis). Tolerated dialysis treatment yesterday without any issues or problems; tolerating tube feeds and follows simple commands; remains hemodynamically stable without the need for vasopressor therapy; continues to make reasonable urine output as well; no events overnight or earlier today. Exam 2 Narrative: General: elderly but WD/WN female intubated/sedated and on mechanical ventilation Heart: IRRR, normal S1 and S2; no rub Lungs: coarse breath sounds; few crackles at bases Abdomen: soft, nontender, nondistended, positive bowel sounds Extremities: no cyanosis or clubbing; 1+ in UEs and LEs Skin: warm and dry Objective Data Vital Signs Vital Signs: Vital Signs Temp Pulse Resp BP Pulse Ox O2 Del Method FiO2 04/08/24 10:00 98.6 F 95 15 150/92 H 95 04/08/24 09:41 100 16 04/08/24 09:02 85 95 Mechanical Ventilation 35 04/08/24 08:05 77 24 H 04/08/24 08:05 77 24 H 04/08/24 08:00 Mechanical Ventilation 35 04/08/24 08:00 35 04/08/24 08:00 96 04/08/24 08:00 98.6 F 83 24 H 99/60 L 96 04/08/24 07:15 85 24 H 04/08/24 06:03 94 97 Mechanical Ventilation 35 04/08/24 06:00 92 24 H 04/08/24 06:00 92 24 H 04/08/24 06:00 98.7 F 92 24 H 118/78 97 04/08/24 06:00 92 04/08/24 05:47 104 H 97 Mechanical Ventilation 35 04/08/24 05:39 87 04/08/24 05:00 101 H 98 Mechanical Ventilation 35 04/08/24 04:00 89 24 H 04/08/24 04:00 89 27 H 04/08/24 04:00 99.1 F 89 27 H 96/61 L 95 04/08/24 04:00 89 04/08/24 04:00 35 04/08/24 04:00 Mechanical Ventilation 35 04/08/24 03:22 90 27 H 04/08/24 02:53 104 H 97 Mechanical Ventilation 35 04/08/24 02:00 99.2 F 93 24 H 103/73 96 04/08/24 02:00 93 04/08/24 01:14 102 H 24 H 04/08/24 01:00 113 H 04/08/24 00:00 96 F L 105 H 24 H 115/65 96 04/08/24 00:00 105 H 04/08/24 00:00 35 04/08/24 00:00 Mechanical Ventilation 35 04/08/24 00:00 98 24 H 04/08/24 00:00 104 H 24 H 04/07/24 23:20 104 H 96 Mechanical Ventilation 35 04/07/24 22:00 98.9 F 100 24 H 117/67 97 04/07/24 22:00 100 04/07/24 22:00 100 24 H 04/07/24 22:00 100 24 H 04/07/24 20:57 92 97 Mechanical Ventilation 35 04/07/24 20:00 98.8 F 89 26 H 102/62 97 04/07/24 20:00 89 04/07/24 20:00 35 04/07/24 20:00 Mechanical Ventilation 35 04/07/24 20:00 87 24 H 04/07/24 20:00 87 24 H Intake/Output Intake/Output: Intake & Output 04/05/24 04/06/24 04/07/24 04/08/24 23:59 23:59 23:59 23:59 Intake Total 2020.1 1773.5 1873.3 629.4 Output Total 1300 1900 2250 900 Balance 720.1 -126.5 -376.7 -270.6 Meds/Results Medications: Active Medications Generic Name Dose Route Start Last Admin Trade Name Freq PRN Reason Stop Dose Admin Acetaminophen 650 mg 03/27/24 14:41 03/29/24 05:11 Acetaminophen 325 Mg Tablet PO 650 mg Q4H PRN Administration Mild Pain (1-3) or Fever Alteplase, Recombinant 2 mg 04/06/24 03:11 04/06/24 03:22 Alteplase 2 Mg Vial (Cathflo) IV PUSH 2 mg ONCE PRN Administration Line Occlusion Amiodarone HCl 400 mg 04/01/24 10:40 04/03/24 08:31 Amiodarone Hcl 200 Mg Tablet PO 400 mg DAILY [facility] Administration Apixaban 5 mg 03/27/24 12:35 04/08/24 08:11 Apixaban 5 Mg Tablet PO 5 mg Q12HR [facility] Administration Bumetanide 1 mg 04/09/24 00:01 Bumetanide Inj 1 Mg/4 Ml Vial IV PUSH 04/09/24 00:02 ONCE ONE Cyanocobalamin 1,000 mcg 03/27/24 17:00 04/08/24 17:06 Cyanocobalamin 1,000 Mcg Tablet PO 1,000 mcg BID [facility] Administration Dextrose 12.5 gm 03/27/24 08:57 Dextrose 50% 25 Gm/50 Ml Syringe IV PUSH PRN PRN Hypoglycemia Protocol Glucagon 1 mg 03/27/24 08:57 Glucagon For Inj 1 Mg Vial IM PRN PRN Hypoglycemia Protocol Glucose 15 gm 03/27/24 08:57 Glucose Oral Gel 15 Gm Of Glucse In 37.5 Gm Tube PO PRN PRN Hypoglycemia Protocol Dextrose 1,000 mls @ 100 mls/hr 03/27/24 08:57 Dextrose 5% 1,000 Ml IVPB PRN PRN Hypoglycemia Protocol Fentanyl Citrate 2,500 mcg in 250 mls @ 0 mls/hr 03/28/24 15:45 04/08/24 18:00 Fentanyl 2,500 Mcg/Ns 250 Ml IV CONT 04/16/24 23:59 0 mcg/hr .Q0M [facility]NE 0 mls/hr Titration Protocol Midazolam HCl 100 mg in 100 mls @ 0 mls/hr 03/28/24 19:30 04/08/24 18:00 Versed 100 Mg/Ns 100 Ml IV CONT 0 mg/hr .Q0M L[facility]NE 0 mls/hr Titration Protocol Albumin Human 50 mls @ 999 mls/hr 04/03/24 09:19 04/07/24 15:05 Albutein IVPB 05/03/24 09:18 100 mls/hr Q10M PRN Administration HYPOTENSION Dexmedetomidine HCl 400 mcg in 100 mls @ 8.1 mls/hr 04/08/24 09:40 04/08/24 18:00 Precedex 400 Mcg/100 Ml IV CONT 0.2 mcg/kg/hr .[id number] [facility] 8.1 mls/hr Titration Protocol 0.2 MCG/KG/HR Insulin Aspart 4 - 8 units 03/29/24 13:00 04/08/24 16:24 Insulin Aspart (*Bkc) 100 Units/Ml SUB-Q Not Given Q4HR [facility] Protocol Insulin Glargine 60 units 04/01/24 09:00 04/08/24 08:20 Insulin Glargine (*Bkc) 100 Units/Ml SUB-Q Not Given Q12HR [facility] Metoprolol Tartrate 12.5 mg 04/07/24 12:00 04/08/24 17:06 Metoprolol Tartrate 12.5 Mg Tablet PO 12.5 mg Q6HR [facility] Administration Multi-Ingred Cream/Lotion/Oil/Oint 1 applic 03/28/24 21:00 04/08/24 08:29 Mineral Oil/White Petrolatum Ointment EACH EYE 1 applic Q12HR [facility] Administration Pantoprazole Sodium 40 mg 03/29/24 09:00 04/08/24 08:13 Pantoprazole Sodium Iv 40 Mg Vial IV PUSH 40 mg DAILY [facility]ERNE Administration Polyethylene Glycol 17 gm 04/04/24 11:45 04/08/24 08:13 Polyethylene Glycol 3350 17 Gm Powd.Pack PO 17 gm QAM [facility] Administration Rosuvastatin Calcium 20 mg 03/28/24 09:00 03/31/24 09:28 Rosuvastatin 20 Mg Tablet PO Not Given DAILY [facility]ERNE Senna/Docusate Sodium 1 tab 04/07/24 21:00 04/07/24 20:54 Senna/Docusate Sodium Tablet PO 1 tab HS [facility] Administration Sodium Chloride 10 ml 03/28/24 22:00 04/08/24 11:24 Central Line Flush IV PUSH 10 ml Q8HR [facility] Administration Sodium Chloride 10 ml 03/28/24 16:14 Central Line Flush IV PUSH PRN PRN with TPN bag changes Sodium Chloride 20 ml 03/28/24 16:14 Central Line Flush IV PUSH PRN PRN after blood draws Radiology Results: ITS Impressions Chest CTA 03/27/24 06:41 Impression: No evidence of pulmonary embolus, aortic dissection, or aortic aneurysm. Extensive right lower lobe pneumonia. Probable mildly prominent reactive lymphadenopathy the right axilla and subcarinal region. Head CT 03/28/24 22:59 IMPRESSION: 1. Normal brain. Abdomen X-Ray 03/29/24 08:59 IMPRESSION: 1. Lines and tubes in expected positions. 2. Diffuse bilateral lung disease, right greater than left, consistent with multifocal pneumonia. Renal Ultrasound 03/31/24 15:34 IMPRESSION: No hydronephrosis. Perinephric fluid collection adjacent to the left lower pole. Abdomen Ultrasound 03/31/24 15:39 IMPRESSION: Status post cholecystectomy. Pancreas poorly visualized. Otherwise normal abdominal ultrasound findings. Chest X-Ray 04/08/24 06:47 Impression: Probable mild pulmonary edema pattern, right worse than left, versus infection. Findings are stable from prior exam. Support tubes in place, as above. Labs Labs: Laboratory Tests 04/08/24 05:45 04/08/24 05:45 Lactic Acid 0.7 Calcium 8.4 Phosphorus 5.8 H Magnesium 2.5 H Total Bilirubin 0.6 AST 75 H ALT 256 H Alkaline Phosphatase 141 H Total Protein 6.0 L Albumin 2.8 L
[2024-04-08] MEDS: LACTULOSE 20 GM/30 ML UDC PO (11:20)
[2024-04-08 11:30] LABS: Glucose Point of Care 81 mg/dl (65-105)
--- NOTE | 2024-04-08 11:36 | PCNFU ---
Nutrition Follow-Up Complete: Suboptimal Energy Intake as related to mechanical ventilation as evidenced by current tube feeding rate. goal: Meet estimated nutritional needs. Patient is progressing towards goal. We will continue current goal. Pt current nutrition is Nepro at 40 ml/hr. Last recorded weight is 162 kg, up from 148.9 kg on admit. Bowel Motility: No BM since 03/26 Labs Reviewed: Mg 2.5, BUN 80, Cr 2.42, GFR 20,Alb 2.85, Hct 30.4, Hgb 9.6 Meds Noted: Lantus, NovoLog, Protonix, Lactulose, Precedex, Senokot, Miralax. Skin: WNL Additional Notes: Dialysis 04/07. Patient is currently on a breathing trial. Tube feedings on hold of Nepro. If patient remains on tube feedings recommend to continue Nepro at 40 ml/hr. Total Nutrition:1584 kcal/71 gm protein/639 ml water. Flush 30 ml q 4 hours. Agree with diet orders. Will monitor weight, labs, skin, diet orders, meds, tube feeding tolerance every Thursday and Thursday.
[2024-04-08 16:26] LABS: Glucose Point of Care 77 mg/dl (65-105)
[2024-04-08] MEDS: BUMETANIDE INJ 1 MG/4 ML VIAL 2 MG IV PUSH (17:06)
[2024-04-08 20:10] LABS: Glucose Point of Care 91 mg/dl (65-105)
[2024-04-08] MEDS: dexmedeTOMIDine 400 MCG/100 ML 400 MCG/100 ML BAG 12.15 MCG IV CONT (20:22)
[2024-04-08] MEDS: SENNA/DOCUSATE SODIUM TABLET 1 TAB PO (20:23)
--- NOTE | 2024-04-08 21:20 | PC.NURSE ---
Call placed to Dr. Hill to verify CMV vent settings. Order adjusted per MD to a peep of 10.
[2024-04-08 23:52] LABS: Glucose Point of Care 129 mg/dl (65-105)
[2024-04-09] VITALS (53 sets, daily range): BP systolic 84–135; BP diastolic 56–86; PULSE 68–122; RESP 22–27; TEMP 37–37.9; O2SAT 90–100
[2024-04-09] MEDS: BUMETANIDE INJ 1 MG/4 ML VIAL IV PUSH (00:04)
[2024-04-09] MEDS: METOPROLOL TARTRATE 12.5 MG TABLET PO ×4 (00:04→17:16)
[2024-04-09] MEDS: dexmedeTOMIDine 400 MCG/100 ML 400 MCG/100 ML BAG 16.2 MCG IV CONT ×4 (02:55→23:18)
[2024-04-09 04:39] LABS: Glucose Point of Care 149 mg/dl (65-105)
[2024-04-09 05:26] LABS: Alveolar/Arterial O2 Gradient 257.3 mmHg; Base Excess ABG 2.6 mEq/l (+/-2.0); Carboxyhemoglobin 0.4 % THb (0-2.0); Fractional Inspired Oxygen 50 %; HCO3 ABG 26.1 mEq/l (22.0-26.0); Methemoglobin ABG 0.3 %THb (0-1.5); Oxygen Content ABG 13.6 %vol (16.0-22.0); Oxygen Saturation ABG 92.3 % (95.0-100.0); Oxyhemoglobin 89.1 % THb (90.0-100.0); PCO2 ABG 36.1 mmHg (35.0-45.0); PO2 ABG 58.6 mmHg (80.0-100.0); PO2 FiO2 Ratio Arterial Blood 1.17 %; Reduced Hemoglobin 10.2 %THb (0-5.0); Total Hemoglobin 10.8 g/dL (12.0-18.0); pH ABG 7.477 (7.350-7.450)
[2024-04-09 05:29] LABS: Device VENTILATOR; Modified Allen's Test Pass; Site Drawn RIGHT RADIAL
[2024-04-09 05:30] LABS: Arterial Blood Gas Ventilator rate 24 /MIN
[2024-04-09 05:31] LABS: Arterial Blood Gas PEEP 10 cmH2O; Arterial Blood Gas Vent Mode CMV
[2024-04-09 05:32] LABS: Arterial Blood Gas Tidal Volume 400 ml
[2024-04-09] MEDS: CENTRAL LINE FLUSH 10 ML IV PUSH ×3 (06:01→20:48)
[2024-04-09 06:40] LABS: Basophils Percent Auto 0.3 % (0.2-1.2); Eosinophils Percent Auto 0.1 % (0-4.4); Hematocrit 30.6 % (37.0-47.0); Hemoglobin 9.7 g/dL (12.0-15.0); Immature Granulocyte Absolute 0.08 K/mm3 (0.00-0.031); Immature Granulocyte Percent A 0.8 % (0-0.5); Lymphocytes Absolute Auto 0.22 K/mm3 (0.9-3.2); Lymphocytes Percent Auto 2.3 % (18.3-44.2); Mean Corpuscular HGB Conc 31.7 g/dl (32-36); Mean Corpuscular Hemoglobin 30.2 pg (26-34); Mean Corpuscular Volume 95.3 fl (80-100); Monocytes Absolute Auto 0.4 K/mm3 (0.1-0.6); Monocytes Percent Auto 4.3 % (2.6-8.5); Neutrophils Absolute Auto 8.9 K/mm3 (1.3-6.7); Neutrophils Percent Auto 92.2 % (45.5-73.1); Platelet Count Result 241 k/mm3 (150-375); Red Blood Count 3.21 M/mm3 (4.2-5.4); Red Cell Distribution Width 17.1 % (11.5-14.5); White Blood Count 9.6 K/mm3 (4.5-10.0)
[2024-04-09 06:58] LABS: Alanine Aminotransferase 529 U/L (6-35); Albumin Level 2.8 g/dL (3.5-5.1); Alkaline Phosphatase 144 U/L (38-126); Anion Gap 12 mmol/L (4-12); Aspartate Amino Transferase 245 U/L (14-36); Bilirubin,Total 0.7 mg/dL (0.2-1.3); Blood Urea Nitrogen 100 mg/dL (7-17); Calcium 8.5 mg/dL (8.4-10.2); Carbon Dioxide 24 mmol/L (22-30); Chloride 103 mmol/L (98-107); Estimated CRCL calculation 28 ml/min; Estimated Glomerular Filt Rate 17; Glucose 164 mg/dL (65-110); Magnesium 2.7 mg/dL (1.6-2.3); Phosphorus 6.3 mg/dL (2.5-4.5); Potassium 4.3 mmol/L (3.4-5.0); Sodium 139 mmol/L (137-145)
[2024-04-09] MEDS: APIXABAN 5 MG TABLET PO ×2 (09:13→20:48)
[2024-04-09] MEDS: DOCOSANOL 10% CREAM 2 GM 1 APPLIC TOPICAL ×5 (09:14→20:48)
[2024-04-09] MEDS: MINERAL OIL/WHITE PETROLATUM OINTMENT 1 APPLIC EACH EYE ×2 (09:15→20:47)
[2024-04-09 09:26] LABS: Glucose Point of Care 186 mg/dl (65-105)
[2024-04-09] MEDS: CYANOCOBALAMIN 1,000 MCG TABLET 1000 MCG PO ×2 (09:28→16:34)
[2024-04-09] MEDS: PANTOPRAZOLE SODIUM IV 40 MG VIAL IV PUSH (09:29)
[2024-04-09] MEDS: polyethylene glycoL 3350 17 GM POWD.PACK PO (09:29)
[2024-04-09 09:39] LABS: Burr Cells 1+; Crenated RBC 1+; Ovalocytes 1+; Platelet Estimate Adequate (Adequate); Schistocytes None Seen
[2024-04-09 09:40] LABS: Anisocytosis 1+
[2024-04-09] MEDS: ALBUMIN HUMAN 25% 12.5 GM/50ML 50 ML 100 GM (10:21)
--- NOTE | 2024-04-09 10:55 | P.PNNP_ITS ---
Progress Note: A&P Assessment and Plan (1) VINCENT (acute kidney injury): Code(s): N17.9 - Acute kidney failure, unspecified Status: Acute Assessment and Plan: * as noted by trend of labs since admission * normal creatinine at baseline and on admission * multifactorial etiology: * hemodynamic instability/shock * infection/sepsis (pneumonia + RSV) * ARB + HCTZ use prior to admission * contrast (CTA of chest on 03/27) * hypoxia * afib with RVR * prerenal factors (?) * evaluation to date noted: * renal ultrasound without hydro * urine electrolytes prerenal * urine eosinophils negative * CPK normal * initiated on [employer]/dialysis on 04/02 * better urine output in the last 24 hours * s/p IV diuretics on 04/05 and 04/08-- reasonable UOP but rise in BUN + creatinine noted * HD today (fluid removal and clearance) * follow trend of repeat labs and UOP to assess for renal recovery (2) Acute hypoxic respiratory failure: Code(s): J96.01 - Acute respiratory failure with hypoxia Status: Acute Assessment and Plan: * seconeary to pneumonia, RSV, and possible CHF * CTA of chest noted: * no evidence of pulmonary embolus, aortic dissection, or aortic aneurysm * extensive right lower lobe pneumonia * probable mildly prominent reactive lymphadenopathy the right axilla and subcarinal region * emergently intubated 03/28 * completed course of steroids * follow respiratory status * noted plans for tracheostomy next week for prolonged ventilator weaning * weaning as tolerated (3) Septic shock: Code(s): A41.9 - Sepsis, unspecified organism; R65.21 - Severe sepsis with septic shock Status: Acute Assessment and Plan: * resolving * secondary to extensive pneumonia +/- RSV * completed course antibiotics * cultures negative to date * off pressors currently (4) Atrial fibrillation with RVR: Code(s): I48.91 - Unspecified atrial fibrillation Status: Acute Assessment and Plan: * rate control strategy * on Eliquis * Echo results noted * Cardiology following (5) Anemia: Code(s): D64.9 - Anemia, unspecified Status: Acute Assessment and Plan: * likely a manifestation of VINCENT and acute illness * on DANG with dialysis * follow trend of H/H (6) Community acquired pneumonia: Code(s): J18.9 - Pneumonia, unspecified organism Status: Acute Assessment and Plan: * as noted by admission imaging * culture data noted (negative to date) * completed course of antibiotics (7) Elevated liver enzymes: Code(s): R74.8 - Abnormal levels of other serum enzymes Status: Acute Assessment and Plan: * thought to be secondary to shock liver * statin on hold * liver enzymes fluctuating * follow trend (8) Diabetes: Code(s): E11.9 - Type 2 diabetes mellitus without complications Status: Chronic Assessment and Plan: * follow accu-cheks * glycemic control per hospitalist/dialer Will continue to follow. L Subjective Date/time seen: 04/09/24 10:55 Interval history: Follow-up for acute kidney injury/acute renal failure. Tolerating dialysis treatment at the time of my visit (seen on HD at 10:45AM); remains intubated and on mechanical ventilation; reasonable urine output in response to IV bumex yesterday but at the expense of a rising BUN and creatinine; stable hemodynamics noted as well; no other acute issues/events overnight or earlier this AM. Exam 2 Narrative: General: elderly but WD/WN female intubated/sedated and on mechanical ventilation Heart: IRRR, normal S1 and S2; no rub Lungs: coarse breath sounds; few crackles at bases Abdomen: soft, nontender, nondistended, positive bowel sounds Extremities: no cyanosis or clubbing; 1+ in UEs and LEs Skin: warm and intact Objective Data Vital Signs Vital Signs: Vital Signs Temp Pulse Resp BP Pulse Ox O2 Del Method FiO2 04/09/24 10:51 78 115/82 04/09/24 10:47 79 95 Mechanical Ventilation 60 04/09/24 10:45 76 87/62 L 04/09/24 10:38 70 24 H 04/09/24 10:30 74 100/61 04/09/24 10:20 73 106/70 04/09/24 10:06 60 04/09/24 10:06 99.0 F 75 24 H 116/76 04/09/24 10:00 99.1 F 72 24 H 92/56 L 92 04/09/24 09:21 68 24 H 04/09/24 09:21 68 24 H 04/09/24 08:40 75 95 Mechanical Ventilation 60 04/09/24 08:00 55 04/09/24 08:00 Mechanical Ventilation 55 04/09/24 08:00 73 24 H 04/09/24 08:00 99.1 F 73 24 H 91/58 L 93 04/09/24 06:01 78 04/09/24 06:00 81 04/09/24 06:00 98.6 F 81 24 H 112/74 90 04/09/24 06:00 85 24 H 04/09/24 05:33 110 H 91 Mechanical Ventilation 45 04/09/24 04:00 85 04/09/24 04:00 90 26 H 04/09/24 04:00 99.6 F 90 26 H 109/75 93 04/09/24 04:00 45 04/09/24 04:00 Mechanical Ventilation 45 04/09/24 02:55 93 27 H 04/09/24 02:55 93 27 H 04/09/24 02:15 78 94 Mechanical Ventilation 45 04/09/24 02:00 79 04/09/24 02:00 100.2 F H 79 24 H 93/60 L 94 04/09/24 02:00 79 24 H 04/09/24 00:04 89 04/09/24 00:00 86 04/09/24 00:00 45 04/09/24 00:00 Mechanical Ventilation 45 04/09/24 00:00 99.9 F H 86 24 H 106/71 97 04/09/24 00:00 86 24 H 04/08/24 22:50 102 H 98 Mechanical Ventilation 45 04/08/24 22:00 83 04/08/24 22:00 99.5 F 84 24 H 114/72 92 04/08/24 22:00 84 24 H 04/08/24 21:30 83 24 H 04/08/24 21:25 45 04/08/24 20:22 98 19 04/08/24 20:22 98 19 04/08/24 20:05 91 93 Mechanical Ventilation 45 04/08/24 20:00 85 04/08/24 20:00 Mechanical Ventilation 45 04/08/24 20:00 35 04/08/24 20:00 98.9 F 98 17 127/80 90 04/08/24 20:00 98 17 04/08/24 20:00 98 17 04/08/24 20:00 98 17 04/08/24 18:00 98.7 F 88 17 124/81 93 04/08/24 18:00 88 04/08/24 18:00 88 17 04/08/24 18:00 88 17 04/08/24 18:00 88 17 04/08/24 17:51 85 92 Mechanical Ventilation 35 04/08/24 17:06 79 Intake/Output Intake/Output: Intake & Output 04/06/24 04/07/24 04/08/24 04/09/24 23:59 23:59 23:59 23:59 Intake Total 1773.5 1873.3 670.5 856.1 Output Total 1900 2250 900 3000 Balance -126.5 -376.7 -229.5 -2143.9 Meds/Results Medications: Active Medications Generic Name Dose Route Start Last Admin Trade Name Freq PRN Reason Stop Dose Admin Acetaminophen 650 mg 03/27/24 14:41 03/29/24 05:11 Acetaminophen 325 Mg Tablet PO 650 mg Q4H PRN Administration Mild Pain (1-3) or Fever Alteplase, Recombinant 2 mg 04/06/24 03:11 04/06/24 03:22 Alteplase 2 Mg Vial (Cathflo) IV PUSH 2 mg ONCE PRN Administration Line Occlusion Amiodarone HCl 400 mg 04/01/24 10:40 04/03/24 08:31 Amiodarone Hcl 200 Mg Tablet PO 400 mg DAILY [facility] Administration Apixaban 5 mg 03/27/24 12:35 04/09/24 09:13 Apixaban 5 Mg Tablet PO 5 mg Q12HR [facility] Administration Cyanocobalamin 1,000 mcg 03/27/24 17:00 04/09/24 09:28 Cyanocobalamin 1,000 Mcg Tablet PO 1,000 mcg BID [facility] Administration Dextrose 12.5 gm 03/27/24 08:57 Dextrose 50% 25 Gm/50 Ml Syringe IV PUSH PRN PRN Hypoglycemia Protocol Docosanol 1 applic 04/09/24 09:00 04/09/24 15:06 Docosanol 10% Cream 2 Gm TOPICAL 1 applic 5 TIMES DAILY [facility]ER[facility] Administration Epoetin Marck-epbx 10,000 units 04/09/24 18:03 04/09/24 11:15 Epoetin Marck-Epbx 10,000 Units/Ml Vial IV PUSH 04/09/24 18:04 10,000 units ONCE ONE Administration Glucagon 1 mg 03/27/24 08:57 Glucagon For Inj 1 Mg Vial IM PRN PRN Hypoglycemia Protocol Glucose 15 gm 03/27/24 08:57 Glucose Oral Gel 15 Gm Of Glucse In 37.5 Gm Tube PO PRN PRN Hypoglycemia Protocol Dextrose 1,000 mls @ 100 mls/hr 03/27/24 08:57 Dextrose 5% 1,000 Ml IVPB PRN PRN Hypoglycemia Protocol Fentanyl Citrate 2,500 mcg in 250 mls @ 0 mls/hr 03/28/24 15:45 04/08/24 20:00 Fentanyl 2,500 Mcg/Ns 250 Ml IV CONT 04/16/24 23:59 0 mcg/hr .Q0M [facility] 0 mls/hr Titration Protocol Midazolam HCl 100 mg in 100 mls @ 0 mls/hr 03/28/24 19:30 04/08/24 21:44 Versed 100 Mg/Ns 100 Ml IV CONT Not Given .Q0M [facility] Protocol Albumin Human 50 mls @ 999 mls/hr 04/03/24 09:19 04/07/24 15:05 Albutein IVPB 05/03/24 09:18 100 mls/hr Q10M PRN Administration HYPOTENSION Dexmedetomidine HCl 400 mcg in 100 mls @ 16.2 mls/hr 04/08/24 09:40 04/09/24 16:00 Precedex 400 Mcg/100 Ml IV CONT Infused .Q6H11M [facility] Titration Protocol 0.4 MCG/KG/HR Insulin Aspart 4 - 8 units 03/29/24 13:00 04/09/24 12:07 Insulin Aspart (*Bkc) 100 Units/Ml SUB-Q Not Given Q4HR [facility] Protocol Insulin Glargine 60 units 04/01/24 09:00 04/08/24 08:20 Insulin Glargine (*Bkc) 100 Units/Ml SUB-Q Not Given Q12HR [facility] Metoprolol Tartrate 12.5 mg 04/07/24 12:00 04/09/24 12:07 Metoprolol Tartrate 12.5 Mg Tablet PO 12.5 mg Q6HR [facility] Administration Multi-Ingred Cream/Lotion/Oil/Oint 1 applic 03/28/24 21:00 04/09/24 09:15 Mineral Oil/White Petrolatum Ointment EACH EYE 1 applic Q12HR [facility] Administration Pantoprazole Sodium 40 mg 03/29/24 09:00 04/09/24 09:29 Pantoprazole Sodium Iv 40 Mg Vial IV PUSH 40 mg DAILY [facility] Administration Polyethylene Glycol 17 gm 04/04/24 11:45 04/09/24 09:29 Polyethylene Glycol 3350 17 Gm Powd.Pack PO 17 gm QAM [facility] Administration Rosuvastatin Calcium 20 mg 03/28/24 09:00 03/31/24 09:28 Rosuvastatin 20 Mg Tablet PO Not Given DAILY [facility] Senna/Docusate Sodium 1 tab 04/07/24 21:00 04/08/24 20:23 Senna/Docusate Sodium Tablet PO 1 tab HS [facility] Administration Sodium Chloride 10 ml 03/28/24 22:00 04/09/24 13:53 Central Line Flush IV PUSH 10 ml Q8HR [facility] Administration Sodium Chloride 10 ml 03/28/24 16:14 Central Line Flush IV PUSH PRN PRN with TPN bag changes Sodium Chloride 20 ml 03/28/24 16:14 Central Line Flush IV PUSH PRN PRN after blood draws Radiology Results: ITS Impressions Chest CTA 03/27/24 06:41 Impression: No evidence of pulmonary embolus, aortic dissection, or aortic aneurysm. Extensive right lower lobe pneumonia. Probable mildly prominent reactive lymphadenopathy the right axilla and subcarinal region. Head CT 03/28/24 22:59 IMPRESSION: 1. Normal brain. Abdomen X-Ray 03/29/24 08:59 IMPRESSION: 1. Lines and tubes in expected positions. 2. Diffuse bilateral lung disease, right greater than left, consistent with multifocal pneumonia. Renal Ultrasound 03/31/24 15:34 IMPRESSION: No hydronephrosis. Perinephric fluid collection adjacent to the left lower pole. Abdomen Ultrasound 03/31/24 15:39 IMPRESSION: Status post cholecystectomy. Pancreas poorly visualized. Otherwise normal abdominal ultrasound findings. Chest X-Ray 04/09/24 06:05 IMPRESSION: 1. Airspace opacities in right mid and lower lung zones and left perihilar region with worsening on the right, consistent with pneumonia. 2. Worsened small right pleural effusion. Labs Labs: Laboratory Tests 04/09/24 06:19 04/09/24 06:19 Calcium 8.5 Phosphorus 6.3 H Magnesium 2.7 H Total Bilirubin 0.7 AST 245 H ALT 529 H Alkaline Phosphatase 144 H Total Protein 6.0 L Albumin 2.8 L
[2024-04-09] MEDS: EPOETIN ALFA-EPBX 10,000 UNITS/ML VIAL 10000 UNITS IV PUSH (11:15)
--- NOTE | 2024-04-09 11:15 | WPDINTPN ---
Progress Note: A&P Assessment and Plan (1) Acute hypoxic respiratory failure: Code(s): J96.01 - Acute respiratory failure with hypoxia Status: Acute Assessment and Plan: Acute hypoxic respiratory failure secondary to pneumonia and congestive heart failure Patient now emergently intubated 03/28 -03/28: Repeat PCR was positive RSV -continue isolation -chest x-ray and ABGs reviewed this morning -Currently PEEP to 10 and FiO2 down to 30% -patient will require additional fluid removal before considering weaning from mechanical ventilation -04/09: Started on Precedex infusion, Versed and fentanyl infusion were discontinued -status post stress dose steroids. -discussed with Nephrology, patient did have if improved urine output over the last 24 hours, and since she did not tolerate dialysis well, concrete mixer truck driver recommended commended Bumex 2 mg IV x1. If she does not respond well, will have to dialyze the patient 04/06: Patient did respond to Bumex that was given yesterday with 1900 mL urine output in the last 24 hours 04/07: A new dialysis catheter has been placed in the left IJ, currently functioning well. Have discussed with Nephrology to continue to remove fluid 04/08: Patient was dialyzed yesterday with 1000 mL in fluid removal, urine output has been adequate, I have asked the bedside RN to turn of the sedation, patient remains somnolent, will place patient on ASV, start Precedex infusion since she is getting tachycardic and hypertensive. Once she is more awake will place her on SBT and evaluate for extubation -04/09: Patient getting dialyzed today. Received Bumex last night with good urine output. Chest x-ray shows worsening airspace opacity right mid and lower lung zones. Worsened small right pleural effusion. FiO2 requirements have increased to 60% from 35%. Patient remains on Discussed with and daughter and updated them with patient's condition, intubated for almost 2 weeks, they agreeable with tracheostomy, as scheduled and with ENT for 04/11/2024. Will also place orders for PEG tube placement by GI 03/27 CTA chest Impression: No evidence of pulmonary embolus, aortic dissection, or aortic aneurysm. Extensive right lower lobe pneumonia. Probable mildly prominent reactive lymphadenopathy the right axilla and subcarinal region. (2) Sepsis: Code(s): A41.9 - Sepsis, unspecified organism Status: Acute Assessment and Plan: RESOLVED Sepsis/septic shock secondary to community-acquired pneumonia, initial procalcitonin level 4.4 Blood cultures ordered and negative till now Sputum cultures negative Urine Legionella and pneumococcal antigen negative Status post cefepime and azithromycin MRSA screen negative. Vancomycin discontinued (3) Diabetes: Code(s): E11.9 - Type 2 diabetes mellitus without complications Status: Chronic Assessment and Plan: Status post insulin infusion Will hold Lantus to 60 units q.12 since blood sugars on trending down after switching patient to Nepro on tube feeds Status post steroids, also she got dialyzed better with the new dialysis catheter in the right IJ, likely dropped her blood sugars. -continue Accu-Cheks and sliding scale insulin - Continue tube feeds (4) Atrial fibrillation with RVR: Code(s): I48.91 - Unspecified atrial fibrillation Status: Acute Assessment and Plan: Patient was amiodarone infusion which has been switched to p.o. amiodarone per tube metoprolol by Cardiology Patient is anticoagulated with Eliquis Echo Summary 1. Very technically difficult study with limited views. 2. Left ventricular chamber dimension is normal. 3. Left ventricular systolic function is at lower limits of normal, estimated at 50-55%. 4. Left atrial chamber dimension is moderately enlarged (5) Community acquired pneumonia: Code(s): J18.9 - Pneumonia, unspecified organism Status: Acute Assessment and Plan: See above (6) Altered mental status: Code(s): R41.82 - Altered mental status, unspecified Status: Acute Assessment and Plan: Likely secondary to hypoxia. Patient had CT scan of the head recently done which was unremarkable Repeat head CT on 03/28 was again unremarkable Ammonia levels within normal limit TSH was normal -patient continues to open her eyes and follows simple commands (7) Electrolyte abnormality: Code(s): E87.8 - Other disorders of electrolyte and fluid balance, not elsewhere classified Status: Acute Assessment and Plan: Patient on dialysis (8) Shock: Code(s): R57.9 - Shock, unspecified Status: Acute Assessment and Plan: RESOLVED Patient was on Levophed and vasopressin infusion which are currently off -off stress dose steroid - status post 25% albumin -Hold further crystalloids (9) VINCENT (acute kidney injury): Code(s): N17.9 - Acute kidney failure, unspecified Status: Acute Assessment and Plan: Increase in creatinine and drop in urine output likely secondary to shock Patient received IV fluids and 5% albumin earlier in the course. norm CK level Renal ultrasound showed No hydronephrosis. Perinephric fluid collection adjacent to the left lower pole. Nephrology following Continued maintain mean arterial pressure with vasopressors if needed 04/02 Discussed with concrete mixer truck driver and patient's family. Discussed risks and benefits of starting hemodialysis. Sheet Mill Supervisor and patient's family in agreement. Patient's consented to proceed. Temporary dialysis catheter placed. Patient was dialyzed. Further dialysis per as per Nephrology -04/04: Patient did not tolerate dialysis as she became tachypneic, tachycardic and hypotensive requiring restarting Levophed. -04/05: Sheet Mill Supervisor recommended giving Bumex 2 mg IV x1 since patient had slightly improved urine output over the last 24 hours and a creatinine and BUN trending downward, - will monitor urine output, renal function and electrolytes 04/06: Discuss with Nephrology, patient received dialysis today with no removal of fluid 04/07: New left IJ dialysis catheter was inserted today, currently functioning well. Right IJ dialysis catheter was removed -dialysis per Nephrology (10) Elevated liver enzymes: Code(s): R74.8 - Abnormal levels of other serum enzymes Status: Acute Assessment and Plan: Patient is status post cholecystectomy Elevated AST ALT and alkaline phosphatase likely secondary to shock liver Hold statin Right upper quadrant ultrasound - Status post cholecystectomy. Pancreas poorly visualized. Otherwise normal abdominal ultrasound findings. While hepatitis panel was negative Levels were increasing I have discussed with Cardiology regarding potential amiodarone related hepatotoxicity. Patient was on IV amiodarone earlier for rate control as patient was in AFib with RVR. It was switched to p.o. as the rate improved. 2 amiodarone was held GI consult and following LFTs have been improving, continue to monitor Plan DVT prophylaxis -Eliquis Stress ulcer prophylaxis -protonix Nutrition -tolerating tube feeds, no bowel movements, currently on MiraLax, added lactulose x1 Code Status - Full Code Total Critical Care Time - 33 minutes Discussed with and daughter in rounds and updated them with patient's condition and plan of care. I updated them without patient has been intubated for almost 2 weeks, FiO2 requirements are going up. She will require tracheostomy and PEG tube placement to which they agreeable. Tracheostomy has been scheduled for 04/11/[address] orders for GI to perform a PEG tube Due to a high probability of clinically significant, life threatening deterioration, the patient required my highest level of preparedness to intervene emergently and I personally spent this critical care time directly and personally managing the patient. This critical care time included obtaining a history; examining the patient; pulse oximetry; ordering and review of studies; arranging urgent treatment with development of a management plan; evaluation of patient's response to treatment; frequent reassessment; and discussions with other providers. It was exclusive of separately billable procedures and treating other patients and teaching time. Please see Assessment and Plan section and the rest of the note for further information on patient assessment and treatment This dictation may have been done utilizing a voice recognition system. Attempts have been made to correct errors. However, there may be uncorrected grammatical, spelling, and recognitions errors present. Subjective Date/time seen: 04/09/24 11:15 Interval history: 68yo female with AFib s/p SHAYY cardioversion that was unsuccessful, KAREN not using CPAP, DM, HTN and endometrial cancer who presents with shortness of breath, leg swelling and weight gain over the past few weeks. Now in with respiratory failure secondary to pneumonia with septic shock. Intubated and on mechanical ventilation. RSV positive, acute kidney injury status post dialysis catheter and dialysis 04/07: A new Left IJ dialysis catheter was inserted 04/09/2024: Patient seen and examined the ICU, remains on CMV mode of ventilation, peep of 5, 50% FiO2. Sedated with Precedex infusion, offs fentanyl and Versed. Opens eyes, follows simple commands. Tolerating tube feeds. Urine output has been adequate in response to Bumex received last evening. Review of Systems Review of Systems: ROS unobtainable: Yes unobtainable due to endotracheal tube, unobtainable due to medical condition and unobtainable due to mental status Exam Narrative: General: Patient intubated on Precedex infusion, in no acute distress Lungs/Chest: Coarse breath sounds bilaterally, no wheezing, decreased air entry at bases Rt > Lt Cardiac: Irregularly irregular, heart rates in the 90s to 100s Circulation: Pedal pulses are intact and symmetrical. Abdomen: Normoactive bowel sounds bowel sounds. Morbidly Obese. Soft. NT. ND. Extremities: No clubbing, cyanosis, bilateral upper and lower extremity edema improving : Can in place Neurologic: Intubated on Precedex infusion, opens her eyes, follows simple command in all extremities, pupils equal and reactive to light Objective Data Vital Signs Vital Signs: Vital Signs - 24 hr 04/08/24 11:20 04/08/24 12:00 04/08/24 12:00 Temperature 98.6 F Pulse Rate 93 85 83 Respiratory Rate 16 Blood Pressure 129/73 Pulse Oximetry 95 Oxygen Delivery Fraction of Inspired Oxygen 04/08/24 12:00 04/08/24 12:00 04/08/24 12:00 Temperature Pulse Rate 83 Respiratory Rate 16 Blood Pressure Pulse Oximetry Oxygen Delivery Mechanical Ventilation Fraction of Inspired Oxygen 35 35 04/08/24 12:00 04/08/24 12:00 04/08/24 12:17 Temperature Pulse Rate 83 83 91 Respiratory Rate 16 16 Blood Pressure Pulse Oximetry 95 Oxygen Delivery Mechanical Ventilation Fraction of Inspired Oxygen 35 04/08/24 14:00 04/08/24 14:00 04/08/24 14:00 Temperature 98.7 F Pulse Rate 87 87 87 Respiratory Rate 18 18 Blood Pressure 128/80 Pulse Oximetry 91 Oxygen Delivery Fraction of Inspired Oxygen 04/08/24 14:00 04/08/24 14:00 04/08/24 15:09 Temperature Pulse Rate 87 87 87 Respiratory Rate 18 18 Blood Pressure Pulse Oximetry 95 Oxygen Delivery Mechanical Ventilation Fraction of Inspired Oxygen 35 04/08/24 16:00 04/08/24 16:00 04/08/24 16:00 Temperature Pulse Rate 93 93 93 Respiratory Rate 21 H 21 H 21 H Blood Pressure Pulse Oximetry Oxygen Delivery Fraction of Inspired Oxygen 04/08/24 16:00 04/08/24 16:00 04/08/24 16:00 Temperature 98.7 F Pulse Rate 83 93 Respiratory Rate 21 H Blood Pressure 127/80 Pulse Oximetry 90 Oxygen Delivery Fraction of Inspired Oxygen 35 04/08/24 16:00 04/08/24 17:06 04/08/24 17:51 Temperature Pulse Rate 79 85 Respiratory Rate Blood Pressure Pulse Oximetry 92 Oxygen Delivery Mechanical Ventilation Mechanical Ventilation Fraction of Inspired Oxygen 35 35 04/08/24 18:00 04/08/24 18:00 04/08/24 18:00 Temperature Pulse Rate 88 88 88 Respiratory Rate 17 17 17 Blood Pressure Pulse Oximetry Oxygen Delivery Fraction of Inspired Oxygen 04/08/24 18:00 04/08/24 18:00 04/08/24 20:00 Temperature 98.7 F Pulse Rate 88 88 98 Respiratory Rate 17 17 Blood Pressure 124/81 Pulse Oximetry 93 Oxygen Delivery Fraction of Inspired Oxygen 04/08/24 20:00 04/08/24 20:00 04/08/24 20:00 Temperature 98.9 F Pulse Rate 98 98 98 Respiratory Rate 17 17 17 Blood Pressure 127/80 Pulse Oximetry 90 Oxygen Delivery Fraction of Inspired Oxygen 04/08/24 20:00 04/08/24 20:00 04/08/24 20:00 Temperature Pulse Rate 85 Respiratory Rate Blood Pressure Pulse Oximetry Oxygen Delivery Mechanical Ventilation Fraction of Inspired Oxygen 35 45 04/08/24 20:05 04/08/24 20:22 04/08/24 20:22 Temperature Pulse Rate 91 98 98 Respiratory Rate 19 19 Blood Pressure Pulse Oximetry 93 Oxygen Delivery Mechanical Ventilation Fraction of Inspired Oxygen 45 04/08/24 21:25 04/08/24 21:30 04/08/24 22:00 Temperature Pulse Rate 83 84 Respiratory Rate 24 H 24 H Blood Pressure Pulse Oximetry Oxygen Delivery Fraction of Inspired Oxygen 45 04/08/24 22:00 04/08/24 22:00 04/08/24 22:50 Temperature 99.5 F Pulse Rate 84 83 102 H Respiratory Rate 24 H Blood Pressure 114/72 Pulse Oximetry 92 98 Oxygen Delivery Mechanical Ventilation Fraction of Inspired Oxygen 45 04/09/24 00:00 04/09/24 00:00 04/09/24 00:00 Temperature 99.9 F H Pulse Rate 86 86 Respiratory Rate 24 H 24 H Blood Pressure 106/71 Pulse Oximetry 97 Oxygen Delivery Mechanical Ventilation Fraction of Inspired Oxygen 45 04/09/24 00:00 04/09/24 00:00 04/09/24 00:04 Temperature Pulse Rate 86 89 Respiratory Rate Blood Pressure Pulse Oximetry Oxygen Delivery Fraction of Inspired Oxygen 45 04/09/24 02:00 04/09/24 02:00 04/09/24 02:00 Temperature 100.2 F H Pulse Rate 79 79 79 Respiratory Rate 24 H 24 H Blood Pressure 93/60 L Pulse Oximetry 94 Oxygen Delivery Fraction of Inspired Oxygen 04/09/24 02:15 04/09/24 02:55 04/09/24 02:55 Temperature Pulse Rate 78 93 93 Respiratory Rate 27 H 27 H Blood Pressure Pulse Oximetry 94 Oxygen Delivery Mechanical Ventilation Fraction of Inspired Oxygen 45 04/09/24 04:00 04/09/24 04:00 04/09/24 04:00 Temperature 99.6 F Pulse Rate 90 Respiratory Rate 26 H Blood Pressure 109/75 Pulse Oximetry 93 Oxygen Delivery Mechanical Ventilation Fraction of Inspired Oxygen 45 45 04/09/24 04:00 04/09/24 04:00 04/09/24 05:33 Temperature Pulse Rate 90 85 110 H Respiratory Rate 26 H Blood Pressure Pulse Oximetry 91 Oxygen Delivery Mechanical Ventilation Fraction of Inspired Oxygen 45 04/09/24 06:00 04/09/24 06:00 04/09/24 06:00 Temperature 98.6 F Pulse Rate 85 81 81 Respiratory Rate 24 H 24 H Blood Pressure 112/74 Pulse Oximetry 90 Oxygen Delivery Fraction of Inspired Oxygen 04/09/24 06:01 04/09/24 08:00 04/09/24 08:00 Temperature 99.1 F Pulse Rate 78 73 73 Respiratory Rate 24 H 24 H Blood Pressure 91/58 L Pulse Oximetry 93 Oxygen Delivery Fraction of Inspired Oxygen 04/09/24 08:00 04/09/24 08:40 04/09/24 09:21 Temperature Pulse Rate 75 68 Respiratory Rate 24 H Blood Pressure Pulse Oximetry 95 Oxygen Delivery Mechanical Ventilation Fraction of Inspired Oxygen 55 60 04/09/24 09:21 04/09/24 10:00 04/09/24 10:06 Temperature 99.1 F 99.0 F Pulse Rate 68 72 75 Respiratory Rate 24 H 24 H 24 H Blood Pressure 92/56 L 116/76 Pulse Oximetry 92 Oxygen Delivery Fraction of Inspired Oxygen 04/09/24 10:06 04/09/24 10:20 04/09/24 10:30 Temperature Pulse Rate 73 74 Respiratory Rate Blood Pressure 106/70 100/61 Pulse Oximetry Oxygen Delivery Fraction of Inspired Oxygen 60 04/09/24 10:38 04/09/24 10:45 04/09/24 10:51 Temperature Pulse Rate 70 76 78 Respiratory Rate 24 H Blood Pressure 87/62 L 115/82 Pulse Oximetry Oxygen Delivery Fraction of Inspired Oxygen 04/09/24 11:00 Temperature Pulse Rate 98 Respiratory Rate Blood Pressure 122/76 Pulse Oximetry Oxygen Delivery Fraction of Inspired Oxygen Intake/Output Intake/Output: Intake & Output 04/06/24 04/07/24 04/08/24 04/09/24 23:59 23:59 23:59 23:59 Intake Total 1773.5 1873.3 670.5 776.9 Output Total 1900 2250 900 1500 Balance -126.5 -376.7 -229.5 -723.1 Meds/Results Medications: Active Medications Generic Name Dose Route Start Last Admin Trade Name Inna PRN Reason Stop Dose Admin Acetaminophen 650 mg 03/27/24 14:41 03/29/24 05:11 Acetaminophen 325 Mg Tablet PO 650 mg Q4H PRN Administration Mild Pain (1-3) or Fever Alteplase, Recombinant 2 mg 04/06/24 03:11 04/06/24 03:22 Alteplase 2 Mg Vial (Cathflo) IV PUSH 2 mg ONCE PRN Administration Line Occlusion Amiodarone HCl 400 mg 04/01/24 10:40 04/03/24 08:31 Amiodarone Hcl 200 Mg Tablet PO 400 mg DAILY [facility] Administration Apixaban 5 mg 03/27/24 12:35 04/09/24 09:13 Apixaban 5 Mg Tablet PO 5 mg Q12HR [facility] Administration Cyanocobalamin 1,000 mcg 03/27/24 17:00 04/09/24 09:28 Cyanocobalamin 1,000 Mcg Tablet PO 1,000 mcg BID [facility] Administration Dextrose 12.5 gm 03/27/24 08:57 Dextrose 50% 25 Gm/50 Ml Syringe IV PUSH PRN PRN Hypoglycemia Protocol Docosanol 1 applic 04/09/24 09:00 04/09/24 09:14 Docosanol 10% Cream 2 Gm TOPICAL 1 applic 5 TIMES DAILY [facility] Administration Epoetin Marck-epbx 10,000 units 04/09/24 18:03 Epoetin Marck-Epbx 10,000 Units/Ml Vial IV PUSH 04/09/24 18:04 ONCE ONE Glucagon 1 mg 03/27/24 08:57 Glucagon For Inj 1 Mg Vial IM PRN PRN Hypoglycemia Protocol Glucose 15 gm 03/27/24 08:57 Glucose Oral Gel 15 Gm Of Glucse In 37.5 Gm Tube PO PRN PRN Hypoglycemia Protocol Dextrose 1,000 mls @ 100 mls/hr 03/27/24 08:57 Dextrose 5% 1,000 Ml IVPB PRN PRN Hypoglycemia Protocol Fentanyl Citrate 2,500 mcg in 250 mls @ 0 mls/hr 03/28/24 15:45 04/08/24 20:00 Fentanyl 2,500 Mcg/Ns 250 Ml IV CONT 04/16/24 23:59 0 mcg/hr .Q0M [facility] 0 mls/hr Titration Protocol Midazolam HCl 100 mg in 100 mls @ 0 mls/hr 03/28/24 19:30 04/08/24 21:44 Versed 100 Mg/Ns 100 Ml IV CONT Not Given .Q0M [facility] Protocol Albumin Human 50 mls @ 999 mls/hr 04/03/24 09:19 04/07/24 15:05 Albutein IVPB 05/03/24 09:18 100 mls/hr Q10M PRN Administration HYPOTENSION Dexmedetomidine HCl 400 mcg in 100 mls @ 12.15 mls/hr 04/08/24 09:40 04/09/24 10:38 Precedex 400 Mcg/100 Ml IV CONT 0.3 mcg/kg/hr .Q8H14M [facility] 12.15 mls/hr Titration Protocol 0.3 MCG/KG/HR Insulin Aspart 4 - 8 units 03/29/24 13:00 04/09/24 09:15 Insulin Aspart (*Bkc) 100 Units/Ml SUB-Q Not Given Q4HR [facility] Protocol Insulin Glargine 60 units 04/01/24 09:00 04/08/24 08:20 Insulin Glargine (*Bkc) 100 Units/Ml SUB-Q Not Given Q12HR [facility] Metoprolol Tartrate 12.5 mg 04/07/24 12:00 04/09/24 06:01 Metoprolol Tartrate 12.5 Mg Tablet PO 12.5 mg Q6HR [facility] Administration Multi-Ingred Cream/Lotion/Oil/Oint 1 applic 03/28/24 21:00 04/09/24 09:15 Mineral Oil/White Petrolatum Ointment EACH EYE 1 applic Q12HR [facility] Administration Pantoprazole Sodium 40 mg 03/29/24 09:00 04/09/24 09:29 Pantoprazole Sodium Iv 40 Mg Vial IV PUSH 40 mg DAILY [facility] Administration Polyethylene Glycol 17 gm 04/04/24 11:45 04/09/24 09:29 Polyethylene Glycol 3350 17 Gm Powd.Pack PO 17 gm QAM [facility] Administration Rosuvastatin Calcium 20 mg 03/28/24 09:00 03/31/24 09:28 Rosuvastatin 20 Mg Tablet PO Not Given DAILY [facility]ER[facility] Senna/Docusate Sodium 1 tab 04/07/24 21:00 04/08/24 20:23 Senna/Docusate Sodium Tablet PO 1 tab HS [facility] Administration Sodium Chloride 10 ml 03/28/24 22:00 04/09/24 06:01 Central Line Flush IV PUSH 10 ml Q8HR [facility] Administration Sodium Chloride 10 ml 03/28/24 16:14 Central Line Flush IV PUSH PRN PRN with TPN bag changes Sodium Chloride 20 ml 03/28/24 16:14 Central Line Flush IV PUSH PRN PRN after blood draws Radiology Results: ITS Impressions Chest CTA 03/27/24 06:41 Impression: No evidence of pulmonary embolus, aortic dissection, or aortic aneurysm. Extensive right lower lobe pneumonia. Probable mildly prominent reactive lymphadenopathy the right axilla and subcarinal region. Head CT 03/28/24 22:59 IMPRESSION: 1. Normal brain. Abdomen X-Ray 03/29/24 08:59 IMPRESSION: 1. Lines and tubes in expected positions. 2. Diffuse bilateral lung disease, right greater than left, consistent with multifocal pneumonia. Renal Ultrasound 03/31/24 15:34 IMPRESSION: No hydronephrosis. Perinephric fluid collection adjacent to the left lower pole. Abdomen Ultrasound 03/31/24 15:39 IMPRESSION: Status post cholecystectomy. Pancreas poorly visualized. Otherwise normal abdominal ultrasound findings. Chest X-Ray 04/09/24 06:05 IMPRESSION: 1. Airspace opacities in right mid and lower lung zones and left perihilar region with worsening on the right, consistent with pneumonia. 2. Worsened small right pleural effusion. Labs Labs: Laboratory Results - last 24 hr 04/08/24 04/08/24 04/08/24 11:19 16:23 20:07 WBC RBC Hgb Hct MCV MCH MCHC RDW Plt Count MPV Immature Gran % (Auto) Neut % (Auto) Lymph % (Auto) [place] % (Auto) Eos % (Auto) Baso % (Auto) Lymph # (Auto) [place] # (Auto) Eos # (Auto) Baso # (Auto) Abs Immat Gran (auto) Absolute Neuts (auto) Absolute Nucleated RBC Nucleated RBC % Platelet Estimate Anisocytosis Ovalocytes Kathy Cells Crenated Cell Schistocytes Puncture Site ABG pH ABG pCO2 ABG pO2 ABG PO2/FiO2 Ratio ABG HCO3 ABG O2 Saturation ABG O2 Content ABG Base Excess A-a Gradient Oxyhemoglobin Carboxyhemoglobin Methemoglobin Reduced Hemoglobin Total Hemoglobin O2 Delivery Device O2 Liters/Min Minute Volume Vent Rate Vent Mode FiO2 Tidal Volume PEEP Peak Inspir Pressure Pressure Support Sodium Potassium Chloride Carbon Dioxide Anion Gap BUN Creatinine Estim Creat Clear Calc Estimated GFR Glucose POC Capillary Glucose 81 77 91 Calcium Phosphorus Magnesium Total Bilirubin AST ALT Alkaline Phosphatase Total Protein Albumin 04/08/24 04/09/24 04/09/24 23:47 04:35 05:22 WBC RBC Hgb Hct MCV MCH MCHC RDW Plt Count MPV Immature Gran % (Auto) Neut % (Auto) Lymph % (Auto) [place] % (Auto) Eos % (Auto) Baso % (Auto) Lymph # (Auto) [place] # (Auto) Eos # (Auto) Baso # (Auto) Abs Immat Gran (auto) Absolute Neuts (auto) Absolute Nucleated RBC Nucleated RBC % Platelet Estimate Anisocytosis Ovalocytes [place] Cells Crenated Cell Schistocytes Puncture Site Right radial ABG pH 7.477 H ABG pCO2 36.1 ABG pO2 58.6 L ABG PO2/FiO2 Ratio 1.17 ABG HCO3 26.1 H ABG O2 Saturation 92.3 L ABG O2 Content 13.6 L ABG Base Excess 2.6 A-a Gradient 257.3 Oxyhemoglobin 89.1 L Carboxyhemoglobin 0.4 Methemoglobin 0.3 Reduced Hemoglobin 10.2 H Total Hemoglobin 10.8 L O2 Delivery Device Ventilator O2 Liters/Min Not Reportable Minute Volume Not Reportable Vent Rate 24 Vent Mode Cmv FiO2 50 Tidal Volume 400 PEEP 10 Peak Inspir Pressure Not Reportable Pressure Support Not Reportable Sodium Potassium Chloride Carbon Dioxide Anion Gap BUN Creatinine Estim Creat Clear Calc Estimated GFR Glucose POC Capillary Glucose 129 H 149 H Calcium Phosphorus Magnesium Total Bilirubin AST ALT Alkaline Phosphatase Total Protein Albumin 04/09/24 04/09/24 06:19 09:12 WBC 9.6 RBC 3.21 L Hgb 9.7 L Hct 30.6 L MCV 95.3 MCH 30.2 MCHC 31.7 L RDW 17.1 H Plt Count 241 MPV 10.0 Immature Gran % (Auto) 0.8 H Neut % (Auto) 92.2 H Lymph % (Auto) 2.3 L [place] % (Auto) 4.3 Eos % (Auto) 0.1 Baso % (Auto) 0.3 Lymph # (Auto) 0.22 L [place] # (Auto) 0.4 Eos # (Auto) 0.0 Baso # (Auto) 0.0 Abs Immat Gran (auto) 0.08 H Absolute Neuts (auto) 8.9 H Absolute Nucleated RBC 0.000 Nucleated RBC % 0.0 Platelet Estimate Adequate Anisocytosis 1+ Ovalocytes 1+ Kathy Cells 1+ Crenated Cell 1+ Schistocytes None seen Puncture Site ABG pH ABG pCO2 ABG pO2 ABG PO2/FiO2 Ratio ABG HCO3 ABG O2 Saturation ABG O2 Content ABG Base Excess A-a Gradient Oxyhemoglobin Carboxyhemoglobin Methemoglobin Reduced Hemoglobin Total Hemoglobin O2 Delivery Device O2 Liters/Min Minute Volume Vent Rate Vent Mode FiO2 Tidal Volume PEEP Peak Inspir Pressure Pressure Support Sodium 139 Potassium 4.3 Chloride 103 Carbon Dioxide 24 Anion Gap 12 BUN 100 H D Creatinine 2.81 H Estim Creat Clear Calc 28 Estimated GFR 17 L Glucose 164 H POC Capillary Glucose 186 H Calcium 8.5 Phosphorus 6.3 H Magnesium 2.7 H Total Bilirubin 0.7 AST 245 H ALT 529 H Alkaline Phosphatase 144 H Total Protein 6.0 L Albumin 2.8 L Quality VTE Prophylaxis VTE prophylaxis: pharmacologic ordered
[2024-04-09 11:36] LABS: Glucose Point of Care 192 mg/dl (65-105)
[2024-04-09 16:22] LABS: Glucose Point of Care 182 mg/dl (65-105)
[2024-04-09] MEDS: INSULIN ASPART (*BKC) 100 UNITS/ML SUB-Q (20:46)
[2024-04-09] MEDS: SENNA/DOCUSATE SODIUM TABLET 1 TAB PO (20:48)
[2024-04-09 21:10] LABS: Glucose Point of Care 213 mg/dl (65-105)
[2024-04-10] VITALS (28 sets, daily range): BP systolic 92–126; BP diastolic 62–88; PULSE 69–110; RESP 22–27; TEMP 36.8–37.7; O2SAT 91–100
[2024-04-10] MEDS: METOPROLOL TARTRATE 12.5 MG TABLET PO ×4 (00:31→17:22)
[2024-04-10 00:40] LABS: Glucose Point of Care 171 mg/dl (65-105)
[2024-04-10 04:33] LABS: Glucose Point of Care 187 mg/dl (65-105)
[2024-04-10 05:40] LABS: Alveolar/Arterial O2 Gradient 241.2 mmHg; Base Excess ABG -1.5 mEq/l (+/-2.0); Carboxyhemoglobin 0.6 % THb (0-2.0); Fractional Inspired Oxygen 50 %; HCO3 ABG 21.5 mEq/l (22.0-26.0); Methemoglobin ABG 0.1 %THb (0-1.5); Oxygen Content ABG 16.4 %vol (16.0-22.0); Oxygen Saturation ABG 96.5 % (95.0-100.0); Oxyhemoglobin 94.7 % THb (90.0-100.0); PCO2 ABG 31.1 mmHg (35.0-45.0); PO2 ABG 80.3 mmHg (80.0-100.0); PO2 FiO2 Ratio Arterial Blood 1.61 %; Reduced Hemoglobin 4.6 %THb (0-5.0); Total Hemoglobin 12.3 g/dL (12.0-18.0); pH ABG 7.458 (7.350-7.450)
[2024-04-10 05:41] LABS: Arterial Blood Gas Vent Mode CMV; Arterial Blood Gas Ventilator rate 24 /MIN; Device VENTILATOR; Modified Allen's Test Pass; Site Drawn LEFT RADIAL
[2024-04-10] MEDS: dexmedeTOMIDine 400 MCG/100 ML 400 MCG/100 ML BAG 16.2 MCG IV CONT (05:41)
[2024-04-10 05:42] LABS: Arterial Blood Gas PEEP 10 cmH2O; Arterial Blood Gas Tidal Volume 400 ml
[2024-04-10 05:52] LABS: Basophils Percent Auto 0.2 % (0.2-1.2); Eosinophils Percent Auto 0.2 % (0-4.4); Hematocrit 30.5 % (37.0-47.0); Hemoglobin 9.9 g/dL (12.0-15.0); Immature Granulocyte Absolute 0.13 K/mm3 (0.00-0.031); Immature Granulocyte Percent A 1.1 % (0-0.5); Lymphocytes Absolute Auto 0.38 K/mm3 (0.9-3.2); Lymphocytes Percent Auto 3.2 % (18.3-44.2); Mean Corpuscular HGB Conc 32.5 g/dl (32-36); Mean Corpuscular Hemoglobin 30.6 pg (26-34); Mean Corpuscular Volume 94.1 fl (80-100); Monocytes Absolute Auto 0.5 K/mm3 (0.1-0.6); Monocytes Percent Auto 3.9 % (2.6-8.5); Neutrophils Absolute Auto 10.9 K/mm3 (1.3-6.7); Neutrophils Percent Auto 91.4 % (45.5-73.1); Platelet Count Result 256 k/mm3 (150-375); Red Blood Count 3.24 M/mm3 (4.2-5.4); Red Cell Distribution Width 16.9 % (11.5-14.5)
[2024-04-10 06:05] LABS: Alanine Aminotransferase 468 U/L (6-35); Albumin Level 2.9 g/dL (3.5-5.1); Alkaline Phosphatase 148 U/L (38-126); Anion Gap 9 mmol/L (4-12); Aspartate Amino Transferase 127 U/L (14-36); Bilirubin,Total 0.9 mg/dL (0.2-1.3); Blood Urea Nitrogen 68 mg/dL (7-17); Calcium 8.4 mg/dL (8.4-10.2); Carbon Dioxide 27 mmol/L (22-30); Chloride 103 mmol/L (98-107); Estimated CRCL calculation 34 ml/min; Estimated Glomerular Filt Rate 21; Glucose 203 mg/dL (65-110); Magnesium 2.5 mg/dL (1.6-2.3); Phosphorus 4.5 mg/dL (2.5-4.5); Potassium 4.2 mmol/L (3.4-5.0); Sodium 139 mmol/L (137-145)
[2024-04-10 06:11] LABS: INR 1.3; Partial Thromboplastin Time 28.6 Seconds (22.3-36.8); Prothrombin Time 16.7 Seconds (11.1-14.7)
[2024-04-10] MEDS: CENTRAL LINE FLUSH 10 ML IV PUSH ×3 (06:16→21:14)
[2024-04-10] MEDS: BISACODYL 10 MG SUPPOSITORY RECTAL (06:21)
[2024-04-10] MEDS: MINERAL OIL/WHITE PETROLATUM OINTMENT 1 APPLIC EACH EYE ×2 (08:48→21:13)
[2024-04-10] MEDS: APIXABAN 5 MG TABLET PO (08:48)
[2024-04-10] MEDS: CYANOCOBALAMIN 1,000 MCG TABLET 1000 MCG PO ×2 (08:48→17:22)
[2024-04-10] MEDS: polyethylene glycoL 3350 17 GM POWD.PACK PO (08:49)
[2024-04-10] MEDS: PANTOPRAZOLE SODIUM IV 40 MG VIAL IV PUSH (08:49)
[2024-04-10] MEDS: DOCOSANOL 10% CREAM 2 GM 1 APPLIC TOPICAL ×5 (08:49→21:13)
[2024-04-10 09:04] LABS: Glucose Point of Care 216 mg/dl (65-105)
[2024-04-10] MEDS: INSULIN ASPART (*BKC) 100 UNITS/ML SUB-Q ×3 (09:04→21:13)
[2024-04-10] MEDS: dexmedeTOMIDine 400 MCG/100 ML 400 MCG/100 ML BAG 12.15 MCG IV CONT ×2 (11:39→18:31)
[2024-04-10] MEDS: ACETAMINOPHEN 325 MG TABLET 650 MG PO (11:41)
--- NOTE | 2024-04-10 11:53 | P.PNNP_ITS ---
Progress Note: A&P Assessment and Plan (1) VINCENT (acute kidney injury): Code(s): N17.9 - Acute kidney failure, unspecified Status: Acute Assessment and Plan: * as noted by trend of labs since admission * normal creatinine at baseline and on admission * multifactorial etiology: * hemodynamic instability/shock * infection/sepsis (pneumonia + RSV) * ARB + HCTZ use prior to admission * contrast (CTA of chest on 03/27) * hypoxia * afib with RVR * prerenal factors (?) * evaluation to date noted: * renal ultrasound without hydro * urine electrolytes prerenal * urine eosinophils negative * CPK normal * initiated on PARTNER/dialysis on 04/02 * better urine output in the last 24 hours * s/p IV diuretics on 04/05 and 04/08-- reasonable UOP but rise in BUN + creatinine noted * HD yesterday (fluid removal and clearance) * likely HD tomorrow * follow trend of repeat labs and UOP to assess for renal recovery (2) Acute hypoxic respiratory failure: Code(s): J96.01 - Acute respiratory failure with hypoxia Status: Acute Assessment and Plan: * seconeary to pneumonia, RSV, and possible CHF * CTA of chest noted: * no evidence of pulmonary embolus, aortic dissection, or aortic aneurysm * extensive right lower lobe pneumonia * probable mildly prominent reactive lymphadenopathy the right axilla and subcarinal region * emergently intubated 03/28 * completed course of steroids * follow respiratory status * noted plans for tracheostomy tomorrow for prolonged ventilator weaning * weaning as tolerated (3) Septic shock: Code(s): A41.9 - Sepsis, unspecified organism; R65.21 - Severe sepsis with septic shock Status: Acute Assessment and Plan: * resolved * secondary to extensive pneumonia +/- RSV * completed course antibiotics * cultures negative to date * off pressors currently (4) Atrial fibrillation with RVR: Code(s): I48.91 - Unspecified atrial fibrillation Status: Acute Assessment and Plan: * rate control strategy * on Eliquis * Echo results noted * Cardiology following (5) Anemia: Code(s): D64.9 - Anemia, unspecified Status: Acute Assessment and Plan: * likely a manifestation of VINCENT and acute illness * on DANG with dialysis * follow trend of H/H (6) Community acquired pneumonia: Code(s): J18.9 - Pneumonia, unspecified organism Status: Acute Assessment and Plan: * as noted by admission imaging * culture data noted (negative to date) * completed course of antibiotics (7) Elevated liver enzymes: Code(s): R74.8 - Abnormal levels of other serum enzymes Status: Acute Assessment and Plan: * thought to be secondary to shock liver * statin on hold * liver enzymes fluctuating * follow trend (8) Diabetes: Code(s): E11.9 - Type 2 diabetes mellitus without complications Status: Chronic Assessment and Plan: * follow accu-cheks * glycemic control per hospitalist/cashier tube room Will continue to follow. L Subjective Date/time seen: 04/10/24 11:53 Interval history: Follow-up for acute kidney injury/acute renal failure. Tolerated dialysis treatment yesterday without any acute issues or problems; continues to make good urine output as well; remains intubated/sedated and on ventilator support; remains hemodynamically stable without the need for vasopressor therapy; noted plans for tracheostomy tomorrow. Exam 2 Narrative: General: elderly but WD/WN female intubated/sedated and on mechanical ventilation Heart: IRRR, normal S1 and S2; no rub Lungs: coarse breath sounds; few crackles at bases Abdomen: soft, nontender, nondistended, positive bowel sounds Extremities: no cyanosis or clubbing; trace edema Skin: no rash Objective Data Vital Signs Vital Signs: Vital Signs Temp Pulse Resp BP Pulse Ox O2 Del Method FiO2 04/10/24 11:41 102 H 04/10/24 11:39 95 24 H 04/10/24 11:27 99 95 Mechanical Ventilation 50 04/10/24 10:00 99.1 F 85 24 H 116/73 96 04/10/24 10:00 85 04/10/24 10:00 71 24 H 04/10/24 08:47 72 24 H 04/10/24 08:00 99.2 F 80 24 H 103/68 96 04/10/24 08:00 60 04/10/24 08:00 82 04/10/24 08:00 Mechanical Ventilation 60 04/10/24 08:00 72 24 H 04/10/24 07:38 71 97 Mechanical Ventilation 50 04/10/24 06:16 90 04/10/24 06:00 97 04/10/24 06:00 91 25 H 04/10/24 06:00 99.2 F 97 25 H 109/71 93 04/10/24 05:41 101 H 25 H 04/10/24 05:41 101 H 25 H 04/10/24 05:04 97 96 Mechanical Ventilation 50 04/10/24 04:00 60 04/10/24 04:00 Mechanical Ventilation 60 04/10/24 04:00 99.9 F H 69 24 H 92/62 L 97 04/10/24 04:00 69 04/10/24 04:00 75 24 H 04/10/24 02:15 81 97 Mechanical Ventilation 60 04/10/24 02:00 72 04/10/24 02:00 99.2 F 72 24 H 108/72 97 04/10/24 02:00 72 24 H 04/10/24 00:31 76 04/10/24 00:00 91 04/10/24 00:00 99.1 F 88 23 H 104/71 97 04/10/24 00:00 60 04/10/24 00:00 Mechanical Ventilation 60 04/10/24 00:00 88 24 H 04/09/24 23:39 94 97 Mechanical Ventilation 60 04/09/24 23:18 109 H 27 H 04/09/24 23:18 109 H 27 H 04/09/24 22:00 108 H 04/09/24 22:00 108 H 26 H 113/76 95 04/09/24 22:00 108 H 26 H 04/09/24 21:46 99 100 Mechanical Ventilation 65 04/09/24 20:51 111 H 25 H 04/09/24 20:00 81 04/09/24 20:00 Mechanical Ventilation 65 04/09/24 20:00 65 04/09/24 20:00 99.8 F H 76 24 H 102/63 99 04/09/24 20:00 76 24 H 04/09/24 18:37 99.5 F 77 24 H 84/59 L 97 04/09/24 18:36 71 24 H 04/09/24 18:18 77 24 H 04/09/24 18:00 99.4 F 74 24 H 90/57 L 96 04/09/24 17:16 103 H 04/09/24 17:08 94 93 Mechanical Ventilation 65 Intake/Output Intake/Output: Intake & Output 04/07/24 04/08/24 04/09/2404/10/25 23:59 23:59 23:59 23:59 Intake Total 1873.3 670.5 1531.1 876.9 Output Total 2250 900 3350 450 Balance -376.7 -229.5 -1818.9 426.9 Meds/Results Medications: Active Medications Generic Name Dose Route Start Last Admin Trade Name Inna PRN Reason Stop Dose Admin Acetaminophen 650 mg 03/27/24 14:41 04/10/24 11:41 Acetaminophen 325 Mg Tablet PO 650 mg Q4H PRN Administration Mild Pain (1-3) or Fever Alteplase, Recombinant 2 mg 04/06/24 03:11 04/06/24 03:22 Alteplase 2 Mg Vial (Cathflo) IV PUSH 2 mg ONCE PRN Administration Line Occlusion Amiodarone HCl 400 mg 04/01/24 10:40 04/03/24 08:31 Amiodarone Hcl 200 Mg Tablet PO 400 mg DAILY LAVERNE Administration Apixaban 5 mg 03/27/24 12:35 04/10/24 08:48 Apixaban 5 Mg Tablet PO 5 mg Q12HR LAVERNE Administration Bisacodyl 10 mg 04/10/24 02:20 04/10/24 06:21 Bisacodyl 10 Mg Suppository RECTAL 10 mg QAM PRN Administration Constipation Cyanocobalamin 1,000 mcg 03/27/24 17:00 04/10/24 08:48 Cyanocobalamin 1,000 Mcg Tablet PO 1,000 mcg BID LAVERNE Administration Dextrose 12.5 gm 03/27/24 08:57 Dextrose 50% 25 Gm/50 Ml Syringe IV PUSH PRN PRN Hypoglycemia Protocol Docosanol 1 applic 04/09/24 09:00 04/10/24 16:09 Docosanol 10% Cream 2 Gm TOPICAL 1 applic 5 TIMES DAILY LAVERNE Administration Glucagon 1 mg 03/27/24 08:57 Glucagon For Inj 1 Mg Vial IM PRN PRN Hypoglycemia Protocol Glucose 15 gm 03/27/24 08:57 Glucose Oral Gel 15 Gm Of Glucse In 37.5 Gm Tube PO PRN PRN Hypoglycemia Protocol Dextrose 1,000 mls @ 100 mls/hr 03/27/24 08:57 Dextrose 5% 1,000 Ml IVPB PRN PRN Hypoglycemia Protocol Albumin Human 50 mls @ 999 mls/hr 04/03/24 09:19 04/07/24 15:05 Albutein IVPB 05/03/24 09:18 100 mls/hr Q10M PRN Administration HYPOTENSION Dexmedetomidine HCl 400 mcg in 100 mls @ 12.15 mls/hr 04/08/24 09:40 04/10/24 16:00 Precedex 400 Mcg/100 Ml IV CONT 0.3 mcg/kg/hr .Q8H14M LAVERNE 12.15 mls/hr Titration Protocol 0.3 MCG/KG/HR Insulin Aspart 4 - 8 units 03/29/24 13:00 04/10/24 12:46 Insulin Aspart (*Bkc) 100 Units/Ml SUB-Q Not Given Q4HR LAVER[facility] Protocol Insulin Glargine 60 units 04/01/24 09:00 04/08/24 08:20 Insulin Glargine (*Bkc) 100 Units/Ml SUB-Q Not Given Q12HR [facility] Metoprolol Tartrate 12.5 mg 04/07/24 12:00 04/10/24 11:41 Metoprolol Tartrate 12.5 Mg Tablet PO 12.5 mg Q6HR LAVERNE Administration Multi-Ingred Cream/Lotion/Oil/Oint 1 applic 03/28/24 21:00 04/10/24 08:48 Mineral Oil/White Petrolatum Ointment EACH EYE 1 applic Q12HR LAVERNE Administration Pantoprazole Sodium 40 mg 03/29/24 09:00 04/10/24 08:49 Pantoprazole Sodium Iv 40 Mg Vial IV PUSH 40 mg DAILY LAVERNE Administration Polyethylene Glycol 17 gm 04/04/24 11:45 04/10/24 08:49 Polyethylene Glycol 3350 17 Gm Powd.Pack PO 17 gm QAM L[facility]ERNE Administration Rosuvastatin Calcium 20 mg 03/28/24 09:00 03/31/24 09:28 Rosuvastatin 20 Mg Tablet PO Not Given DAILY LAVERNE Senna/Docusate Sodium 1 tab 04/07/24 21:00 04/09/24 20:48 Senna/Docusate Sodium Tablet PO 1 tab HS LAVERNE Administration Sodium Chloride 10 ml 03/28/24 22:00 04/10/24 12:46 Central Line Flush IV PUSH 10 ml Q8HR L[facility]ERNE Administration Sodium Chloride 10 ml 03/28/24 16:14 Central Line Flush IV PUSH PRN PRN with TPN bag changes Sodium Chloride 20 ml 01/27/25 16:14 Central Line Flush IV PUSH PRN PRN after blood draws Radiology Results: ITS Impressions Chest CTA 03/27/24 06:41 Impression: No evidence of pulmonary embolus, aortic dissection, or aortic aneurysm. Extensive right lower lobe pneumonia. Probable mildly prominent reactive lymphadenopathy the right axilla and subcarinal region. Head CT 03/28/24 22:59 IMPRESSION: 1. Normal brain. Abdomen X-Ray 03/29/24 08:59 IMPRESSION: 1. Lines and tubes in expected positions. 2. Diffuse bilateral lung disease, right greater than left, consistent with multifocal pneumonia. Renal Ultrasound 03/31/24 15:34 IMPRESSION: No hydronephrosis. Perinephric fluid collection adjacent to the left lower pole. Abdomen Ultrasound 03/31/24 15:39 IMPRESSION: Status post cholecystectomy. Pancreas poorly visualized. Otherwise normal abdominal ultrasound findings. Chest X-Ray 04/10/24 08:29 IMPRESSION: 1. Lines and tubes as detailed above. Consider advancement of the endotracheal tube by 4 cm. 2. Decreasing opacities in the right lower lung zone consistent with decreasing small right pleural effusion, atelectasis, pneumonia or some combination thereof. Labs Labs: Laboratory Tests 04/10/24 05:47 04/10/24 05:47 Calcium 8.4 Phosphorus 4.5 Magnesium 2.5 H Total Bilirubin 0.9 AST 127 H ALT 468 H Alkaline Phosphatase 148 H Total Protein 6.0 L Albumin 2.9 L
--- NOTE | 2024-04-10 12:09 | WPDINTPN ---
Progress Note: A&P Assessment and Plan (1) Acute hypoxic respiratory failure: Code(s): J96.01 - Acute respiratory failure with hypoxia Status: Acute Assessment and Plan: Acute hypoxic respiratory failure secondary to pneumonia and congestive heart failure Patient now emergently intubated 03/28 -03/28: Repeat PCR was positive RSV -continue isolation -chest x-ray and ABGs reviewed this morning -Currently PEEP to 10 and FiO2 down to 30% -patient will require additional fluid removal before considering weaning from mechanical ventilation -04/09: Started on Precedex infusion, Versed and fentanyl infusion were discontinued -status post stress dose steroids. -discussed with Nephrology, patient did have if improved urine output over the last 24 hours, and since she did not tolerate dialysis well, seasonal clerk recommended commended Bumex 2 mg IV x1. If she does not respond well, will have to dialyze the patient 04/06: Patient did respond to Bumex that was given yesterday with 1900 mL urine output in the last 24 hours 04/07: A new dialysis catheter has been placed in the left IJ, currently functioning well. Have discussed with Nephrology to continue to remove fluid 04/08: Patient was dialyzed yesterday with 1000 mL in fluid removal, urine output has been adequate, I have asked the bedside RN to turn of the sedation, patient remains somnolent, will place patient on ASV, start Precedex infusion since she is getting tachycardic and hypertensive. Once she is more awake will place her on SBT and evaluate for extubation -04/09: Patient getting dialyzed today. Received Bumex last night with good urine output. Chest x-ray shows worsening airspace opacity right mid and lower lung zones. Worsened small right pleural effusion. FiO2 requirements have increased to 60% from 35%. Place patient on pressure support ventilation, 02/06, low tidal volumes, tachypnea, tachycardia, had to be placed back on CMV mode Discussed with and daughter and updated them with patient's condition, intubated for almost 2 weeks, they agreeable with tracheostomy, as scheduled and with ENT for 04/11/2024. -GI has been consulted for PEG tube placement 04/10: Tried to place patient again on pressure support ventilation 02/06, was not getting adequate tidal volumes, was also tachypneic. Also tried ASV, her respiratory rate was too low. I have asked the bedside RN to come down on her Precedex. 03/27 CTA chest Impression: No evidence of pulmonary embolus, aortic dissection, or aortic aneurysm. Extensive right lower lobe pneumonia. Probable mildly prominent reactive lymphadenopathy the right axilla and subcarinal region. (2) Sepsis: Code(s): A41.9 - Sepsis, unspecified organism Status: Acute Assessment and Plan: RESOLVED Sepsis/septic shock secondary to community-acquired pneumonia, initial procalcitonin level 4.4 Blood cultures ordered and negative till now Sputum cultures negative Urine Legionella and pneumococcal antigen negative Status post cefepime and azithromycin MRSA screen negative. Vancomycin discontinued (3) Diabetes: Code(s): E11.9 - Type 2 diabetes mellitus without complications Status: Chronic Assessment and Plan: Status post insulin infusion Continue to hold Lantus to 60 units q.12 since blood sugars on trending down after switching patient to Nepro on tube feeds Status post steroids, also she got dialyzed better with the new dialysis catheter in the right IJ, likely dropped her blood sugars. -continue Accu-Cheks and sliding scale insulin - Continue tube feeds (4) Atrial fibrillation with RVR: Code(s): I48.91 - Unspecified atrial fibrillation Status: Acute Assessment and Plan: Patient was amiodarone infusion which has been switched to p.o. amiodarone per tube metoprolol by Cardiology Patient is anticoagulated with Eliquis Echo Summary 1. Very technically difficult study with limited views. 2. Left ventricular chamber dimension is normal. 3. Left ventricular systolic function is at lower limits of normal, estimated at 50-55%. 4. Left atrial chamber dimension is moderately enlarged (5) Community acquired pneumonia: Code(s): J18.9 - Pneumonia, unspecified organism Status: Acute Assessment and Plan: See above (6) Altered mental status: Code(s): R41.82 - Altered mental status, unspecified Status: Acute Assessment and Plan: Likely secondary to hypoxia. Patient had CT scan of the head recently done which was unremarkable Repeat head CT on 03/28 was again unremarkable Ammonia levels within normal limit TSH was normal -patient continues to open her eyes and follows simple commands (7) Electrolyte abnormality: Code(s): E87.8 - Other disorders of electrolyte and fluid balance, not elsewhere classified Status: Acute Assessment and Plan: Patient on dialysis (8) Shock: Code(s): R57.9 - Shock, unspecified Status: Acute Assessment and Plan: RESOLVED Patient was on Levophed and vasopressin infusion which are currently off -off stress dose steroid - status post 25% albumin -Hold further crystalloids (9) VINCENT (acute kidney injury): Code(s): N17.9 - Acute kidney failure, unspecified Status: Acute Assessment and Plan: Increase in creatinine and drop in urine output likely secondary to shock Patient received IV fluids and 5% albumin earlier in the course. norm CK level Renal ultrasound showed No hydronephrosis. Perinephric fluid collection adjacent to the left lower pole. Nephrology following Continued maintain mean arterial pressure with vasopressors if needed 04/02 Discussed with seasonal clerk and patient's family. Discussed risks and benefits of starting hemodialysis. Propulsion Systems Engineer and patient's family in agreement. Patient's consented to proceed. Temporary dialysis catheter placed. Patient was dialyzed. Further dialysis per as per Nephrology -04/04: Patient did not tolerate dialysis as she became tachypneic, tachycardic and hypotensive requiring restarting Levophed. -04/05: Propulsion Systems Engineer recommended giving Bumex 2 mg IV x1 since patient had slightly improved urine output over the last 24 hours and a creatinine and BUN trending downward, - will monitor urine output, renal function and electrolytes 04/06: Discuss with Nephrology, patient received dialysis today with no removal of fluid 04/07: New left IJ dialysis catheter was inserted today, currently functioning well. Right IJ dialysis catheter was removed -dialysis per Nephrology (10) Elevated liver enzymes: Code(s): R74.8 - Abnormal levels of other serum enzymes Status: Acute Assessment and Plan: Patient is status post cholecystectomy Elevated AST ALT and alkaline phosphatase likely secondary to shock liver Hold statin Right upper quadrant ultrasound - Status post cholecystectomy. Pancreas poorly visualized. Otherwise normal abdominal ultrasound findings. While hepatitis panel was negative Levels were increasing I have discussed with Cardiology regarding potential amiodarone related hepatotoxicity. Patient was on IV amiodarone earlier for rate control as patient was in AFib with RVR. It was switched to p.o. as the rate improved. / amiodarone was held GI consult and following LFTs have been improving, continue to monitor Plan DVT prophylaxis -Eliquis Stress ulcer prophylaxis -protonix Nutrition -tolerating tube feeds, currently on MiraLax, added lactulose x1 Code Status - Full Code Total Critical Care Time - 33 minutes Discussed with son in the room and updated him with patient's condition and plan of care. I updated them without patient has been intubated for almost 2 weeks, FiO2 requirements are going up. She will require tracheostomy and PEG tube placement to which he stated that the family is agreeable. Tracheostomy has been scheduled for 04/11/[address] orders for GI to perform a PEG tube Due to a high probability of clinically significant, life threatening deterioration, the patient required my highest level of preparedness to intervene emergently and I personally spent this critical care time directly and personally managing the patient. This critical care time included obtaining a history; examining the patient; pulse oximetry; ordering and review of studies; arranging urgent treatment with development of a management plan; evaluation of patient's response to treatment; frequent reassessment; and discussions with other providers. It was exclusive of separately billable procedures and treating other patients and teaching time. Please see Assessment and Plan section and the rest of the note for further information on patient assessment and treatment This dictation may have been done utilizing a voice recognition system. Attempts have been made to correct errors. However, there may be uncorrected grammatical, spelling, and recognitions errors present. Subjective Date/time seen: 04/10/24 12:09 Interval history: 68yo female with AFib s/p SHAYY cardioversion that was unsuccessful, KAREN not using CPAP, DM, HTN and endometrial cancer who presents with shortness of breath, leg swelling and weight gain over the past few weeks. Now in with respiratory failure secondary to pneumonia with septic shock. Intubated and on mechanical ventilation. RSV positive, acute kidney injury status post dialysis catheter and dialysis 04/07: A new Left IJ dialysis catheter was inserted 04/10/2024: Patient seen and examined the ICU, remains on CMV mode of ventilation, peep of 5, 50% FiO2. Sedated with Precedex infusion, offs fentanyl and Versed. Opens eyes, follows simple commands. Tolerating tube feeds. Patient had dialysis yesterday with 1500 mL in fluid removal and tolerated well. Small bowel movement overnight Review of Systems Review of Systems: ROS unobtainable: Yes unobtainable due to endotracheal tube, unobtainable due to medical condition and unobtainable due to mental status Exam Narrative: General: Patient intubated on Precedex infusion, in no acute distress Lungs/Chest: Coarse breath sounds bilaterally, no wheezing, decreased air entry at bases Rt > Lt Cardiac: Irregularly irregular, heart rates in the 90s to 100s Circulation: Pedal pulses are intact and symmetrical. Abdomen: Normoactive bowel sounds bowel sounds. Morbidly Obese. Soft. NT. ND. Extremities: No clubbing, cyanosis, bilateral upper and lower extremity edema improving : Can in place Neurologic: Intubated on Precedex infusion, opens her eyes, follows simple command in all extremities, pupils equal and reactive to light Objective Data Vital Signs Vital Signs: Vital Signs - 24 hr 04/09/24 12:15 04/09/24 12:30 04/09/24 12:45 Temperature Pulse Rate 117 H 102 H 93 Respiratory Rate Blood Pressure 129/84 117/69 102/61 Pulse Oximetry Oxygen Delivery Fraction of Inspired Oxygen 04/09/24 13:00 04/09/24 13:15 04/09/24 13:30 Temperature Pulse Rate 86 91 101 H Respiratory Rate Blood Pressure 101/65 101/64 114/79 Pulse Oximetry Oxygen Delivery Fraction of Inspired Oxygen 04/09/24 13:45 04/09/24 14:00 04/09/24 14:00 Temperature Pulse Rate 112 H 108 H 99 Respiratory Rate 24 H Blood Pressure 121/85 118/73 Pulse Oximetry Oxygen Delivery Fraction of Inspired Oxygen 04/09/24 14:00 04/09/24 14:11 04/09/24 14:15 Temperature 99.6 F Pulse Rate 88 91 95 Respiratory Rate 22 H Blood Pressure 112/69 110/72 Pulse Oximetry 95 91 Oxygen Delivery Mechanical Ventilation Fraction of Inspired Oxygen 60 04/09/24 14:30 04/09/24 14:41 04/09/24 14:50 Temperature 99.6 F Pulse Rate 94 94 Respiratory Rate 22 H Blood Pressure 112/69 103/61 Pulse Oximetry Oxygen Delivery Fraction of Inspired Oxygen 65 04/09/24 14:50 04/09/24 16:00 04/09/24 16:00 Temperature Pulse Rate 112 H Respiratory Rate 24 H Blood Pressure Pulse Oximetry Oxygen Delivery Mechanical Ventilation Fraction of Inspired Oxygen 65 65 04/09/24 16:00 04/09/24 16:00 04/09/24 16:33 Temperature 99.6 F Pulse Rate 108 H 109 H Respiratory Rate 22 H 24 H Blood Pressure 126/83 Pulse Oximetry 97 Oxygen Delivery Fraction of Inspired Oxygen 65 04/09/24 17:08 04/09/24 17:16 04/09/24 18:00 Temperature 99.4 F Pulse Rate 94 103 H 74 Respiratory Rate 24 H Blood Pressure 90/57 L Pulse Oximetry 93 96 Oxygen Delivery Mechanical Ventilation Fraction of Inspired Oxygen 65 04/09/24 18:18 04/09/24 18:36 04/09/24 18:37 Temperature 99.5 F Pulse Rate 77 71 77 Respiratory Rate 24 H 24 H 24 H Blood Pressure 84/59 L Pulse Oximetry 97 Oxygen Delivery Fraction of Inspired Oxygen 04/09/24 20:00 04/09/24 20:00 04/09/24 20:00 Temperature 99.8 F H Pulse Rate 76 76 Respiratory Rate 24 H 24 H Blood Pressure 102/63 Pulse Oximetry 99 Oxygen Delivery Fraction of Inspired Oxygen 65 04/09/24 20:00 04/09/24 20:00 04/09/24 20:51 Temperature Pulse Rate 81 111 H Respiratory Rate 25 H Blood Pressure Pulse Oximetry Oxygen Delivery Mechanical Ventilation Fraction of Inspired Oxygen 65 04/09/24 21:46 04/09/24 22:00 04/09/24 22:00 Temperature Pulse Rate 99 108 H 108 H Respiratory Rate 26 H 26 H Blood Pressure 113/76 Pulse Oximetry 100 95 Oxygen Delivery Mechanical Ventilation Fraction of Inspired Oxygen 65 04/09/24 22:00 04/09/24 23:18 04/09/24 23:18 Temperature Pulse Rate 108 H 109 H 109 H Respiratory Rate 27 H 27 H Blood Pressure Pulse Oximetry Oxygen Delivery Fraction of Inspired Oxygen 04/09/24 23:39 04/10/24 00:00 04/10/24 00:00 Temperature Pulse Rate 94 88 Respiratory Rate 24 H Blood Pressure Pulse Oximetry 97 Oxygen Delivery Mechanical Ventilation Mechanical Ventilation Fraction of Inspired Oxygen 60 60 04/10/24 00:00 04/10/24 00:00 04/10/24 00:00 Temperature 99.1 F Pulse Rate 88 91 Respiratory Rate 23 H Blood Pressure 104/71 Pulse Oximetry 97 Oxygen Delivery Fraction of Inspired Oxygen 60 04/10/24 00:31 04/10/24 02:00 04/10/24 02:00 Temperature 99.2 F Pulse Rate 76 72 72 Respiratory Rate 24 H 24 H Blood Pressure 108/72 Pulse Oximetry 97 Oxygen Delivery Fraction of Inspired Oxygen 04/10/24 02:00 04/10/24 02:15 04/10/24 04:00 Temperature Pulse Rate 72 81 75 Respiratory Rate 24 H Blood Pressure Pulse Oximetry 97 Oxygen Delivery Mechanical Ventilation Fraction of Inspired Oxygen 60 04/10/24 04:00 04/10/24 04:00 04/10/24 04:00 Temperature 99.9 F H Pulse Rate 69 69 Respiratory Rate 24 H Blood Pressure 92/62 L Pulse Oximetry 97 Oxygen Delivery Mechanical Ventilation Fraction of Inspired Oxygen 60 04/10/24 04:00 04/10/24 05:04 04/10/24 05:41 Temperature Pulse Rate 97 101 H Respiratory Rate 25 H Blood Pressure Pulse Oximetry 96 Oxygen Delivery Mechanical Ventilation Fraction of Inspired Oxygen 60 50 04/10/24 05:41 04/10/24 06:00 04/10/24 06:00 Temperature 99.2 F Pulse Rate 101 H 97 91 Respiratory Rate 25 H 25 H 25 H Blood Pressure 109/71 Pulse Oximetry 93 Oxygen Delivery Fraction of Inspired Oxygen 04/10/24 06:00 04/10/24 06:16 04/10/24 07:38 Temperature Pulse Rate 97 90 71 Respiratory Rate Blood Pressure Pulse Oximetry 97 Oxygen Delivery Mechanical Ventilation Fraction of Inspired Oxygen 50 04/10/24 08:00 04/10/24 08:00 04/10/24 08:00 Temperature Pulse Rate 72 82 Respiratory Rate 24 H Blood Pressure Pulse Oximetry Oxygen Delivery Mechanical Ventilation Fraction of Inspired Oxygen 60 04/10/24 08:00 04/10/24 08:00 04/10/24 08:47 Temperature 99.2 F Pulse Rate 80 72 Respiratory Rate 24 H 24 H Blood Pressure 103/68 Pulse Oximetry 96 Oxygen Delivery Fraction of Inspired Oxygen 60 04/10/24 10:00 04/10/24 10:00 04/10/24 10:00 Temperature 99.1 F Pulse Rate 71 85 85 Respiratory Rate 24 H 24 H Blood Pressure 116/73 Pulse Oximetry 96 Oxygen Delivery Fraction of Inspired Oxygen 04/10/24 11:27 04/10/24 11:39 04/10/24 11:39 Temperature Pulse Rate 99 95 95 Respiratory Rate 24 H 24 H Blood Pressure Pulse Oximetry 95 Oxygen Delivery Mechanical Ventilation Fraction of Inspired Oxygen 50 04/10/24 11:41 Temperature Pulse Rate 102 H Respiratory Rate Blood Pressure Pulse Oximetry Oxygen Delivery Fraction of Inspired Oxygen Intake/Output Intake/Output: Intake & Output 04/07/24 04/08/24 04/09/24 04/10/24 23:59 23:59 23:59 23:59 Intake Total 1873.3 670.5 1531.1 824.0 Output Total 2250 900 3350 450 Balance -376.7 -229.5 -1818.9 374.0 Meds/Results Medications: Active Medications Generic Name Dose Route Start Last Admin Trade Name Freq PRN Reason Stop Dose Admin Acetaminophen 650 mg 03/27/24 14:41 04/10/24 11:41 Acetaminophen 325 Mg Tablet PO 650 mg Q4H PRN Administration Mild Pain (1-3) or Fever Alteplase, Recombinant 2 mg 04/06/24 03:11 04/06/24 03:22 Alteplase 2 Mg Vial (Cathflo) IV PUSH 2 mg ONCE PRN Administration Line Occlusion Amiodarone HCl 400 mg 04/01/24 10:40 04/03/24 08:31 Amiodarone Hcl 200 Mg Tablet PO 400 mg DAILY LAVERNE Administration Apixaban 5 mg 03/27/24 12:35 04/10/24 08:48 Apixaban 5 Mg Tablet PO 5 mg Q12HR LAVERNE Administration Bisacodyl 10 mg 04/10/24 02:20 04/10/24 06:21 Bisacodyl 10 Mg Suppository RECTAL 10 mg QAM PRN Administration Constipation Cyanocobalamin 1,000 mcg 03/27/24 17:00 04/10/24 08:48 Cyanocobalamin 1,000 Mcg Tablet PO 1,000 mcg BID LAVERNE Administration Dextrose 12.5 gm 03/27/24 08:57 Dextrose 50% 25 Gm/50 Ml Syringe IV PUSH PRN PRN Hypoglycemia Protocol Docosanol 1 applic 04/09/24 09:00 04/10/24 11:42 Docosanol 10% Cream 2 Gm TOPICAL 1 applic 5 TIMES DAILY LAVERNE Administration Glucagon 1 mg 03/27/24 08:57 Glucagon For Inj 1 Mg Vial IM PRN PRN Hypoglycemia Protocol Glucose 15 gm 03/27/24 08:57 Glucose Oral Gel 15 Gm Of Glucse In 37.5 Gm Tube PO PRN PRN Hypoglycemia Protocol Dextrose 1,000 mls @ 100 mls/hr 03/27/24 08:57 Dextrose 5% 1,000 Ml IVPB PRN PRN Hypoglycemia Protocol Albumin Human 50 mls @ 999 mls/hr 04/03/24 09:19 04/07/24 15:05 Albutein IVPB 05/03/24 09:18 100 mls/hr Q10M PRN Administration HYPOTENSION Dexmedetomidine HCl 400 mcg in 100 mls @ 12.15 mls/hr 04/08/24 09:40 04/10/24 11:41 Precedex 400 Mcg/100 Ml IV CONT Not Given .Q8H14M LAVERNE Protocol 0.3 MCG/KG/HR Insulin Aspart 4 - 8 units 03/29/24 13:00 04/10/24 09:04 Insulin Aspart (*Bkc) 100 Units/Ml SUB-Q 4 units Q4HR LAVERNE Administration Protocol Insulin Glargine 60 units 04/01/24 09:00 04/08/24 08:20 Insulin Glargine (*Bkc) 100 Units/Ml SUB-Q Not Given Q12HR LAVERNE Metoprolol Tartrate 12.5 mg 04/07/24 12:00 04/10/24 11:41 Metoprolol Tartrate 12.5 Mg Tablet PO 12.5 mg Q6HR LAVERNE Administration Multi-Ingred Cream/Lotion/Oil/Oint 1 applic 03/28/24 21:00 04/10/24 08:48 Mineral Oil/White Petrolatum Ointment EACH EYE 1 applic Q12HR LAVERNE Administration Pantoprazole Sodium 40 mg 03/29/24 09:00 04/10/24 08:49 Pantoprazole Sodium Iv 40 Mg Vial IV PUSH 40 mg DAILY LAVERNE Administration Polyethylene Glycol 17 gm 04/04/24 11:45 04/10/24 08:49 Polyethylene Glycol 3350 17 Gm Powd.Pack PO 17 gm QAM LAVERNE Administration Rosuvastatin Calcium 20 mg 03/28/24 09:00 03/31/24 09:28 Rosuvastatin 20 Mg Tablet PO Not Given DAILY LAVERNE Senna/Docusate Sodium 1 tab 04/07/24 21:00 04/09/24 20:48 Senna/Docusate Sodium Tablet PO 1 tab HS LAVERNE Administration Sodium Chloride 10 ml 03/28/24 22:00 04/10/24 06:16 Central Line Flush IV PUSH 10 ml Q8HR LAVERNE Administration Sodium Chloride 10 ml 03/28/24 16:14 Central Line Flush IV PUSH PRN PRN with TPN bag changes Sodium Chloride 20 ml 03/28/24 16:14 Central Line Flush IV PUSH PRN PRN after blood draws Radiology Results: ITS Impressions Chest CTA 03/27/24 06:41 Impression: No evidence of pulmonary embolus, aortic dissection, or aortic aneurysm. Extensive right lower lobe pneumonia. Probable mildly prominent reactive lymphadenopathy the right axilla and subcarinal region. Head CT 03/28/24 22:59 IMPRESSION: 1. Normal brain. Abdomen X-Ray 03/29/24 08:59 IMPRESSION: 1. Lines and tubes in expected positions. 2. Diffuse bilateral lung disease, right greater than left, consistent with multifocal pneumonia. Renal Ultrasound 03/31/24 15:34 IMPRESSION: No hydronephrosis. Perinephric fluid collection adjacent to the left lower pole. Abdomen Ultrasound 03/31/24 15:39 IMPRESSION: Status post cholecystectomy. Pancreas poorly visualized. Otherwise normal abdominal ultrasound findings. Chest X-Ray 04/10/24 08:29 IMPRESSION: 1. Lines and tubes as detailed above. Consider advancement of the endotracheal tube by 4 cm. 2. Decreasing opacities in the right lower lung zone consistent with decreasing small right pleural effusion, atelectasis, pneumonia or some combination thereof. Labs Labs: Laboratory Results - last 24 hr 04/09/24 04/09/24 04/10/24 16:16 20:33 00:26 WBC RBC Hgb Hct MCV MCH MCHC RDW Plt Count MPV Immature Gran % (Auto) Neut % (Auto) Lymph % (Auto) Wright % (Auto) Eos % (Auto) Baso % (Auto) Lymph # (Auto) Wright # (Auto) Eos # (Auto) Baso # (Auto) Abs Immat Gran (auto) Absolute Neuts (auto) Absolute Nucleated RBC Nucleated RBC % PT INR APTT Puncture Site ABG pH ABG pCO2 ABG pO2 ABG PO2/FiO2 Ratio ABG HCO3 ABG O2 Saturation ABG O2 Content ABG Base Excess A-a Gradient Oxyhemoglobin Carboxyhemoglobin Methemoglobin Reduced Hemoglobin Total Hemoglobin O2 Delivery Device O2 Liters/Min Minute Volume Vent Rate Vent Mode FiO2 Tidal Volume PEEP Peak Inspir Pressure Pressure Support Sodium Potassium Chloride Carbon Dioxide Anion Gap BUN Creatinine Estim Creat Clear Calc Estimated GFR Glucose POC Capillary Glucose 182 H 213 H 171 H Calcium Phosphorus Magnesium Total Bilirubin AST ALT Alkaline Phosphatase Total Protein Albumin 04/10/24 04/10/24 04/10/24 04:24 05:03 05:47 WBC 12.0 H RBC 3.24 L Hgb 9.9 L Hct 30.5 L MCV 94.1 MCH 30.6 MCHC 32.5 RDW 16.9 H Plt Count 256 MPV 10.0 Immature Gran % (Auto) 1.1 H Neut % (Auto) 91.4 H Lymph % (Auto) 3.2 L Wright % (Auto) 3.9 Eos % (Auto) 0.2 Baso % (Auto) 0.2 Lymph # (Auto) 0.38 L Wright # (Auto) 0.5 Eos # (Auto) 0.0 Baso # (Auto) 0.0 Abs Immat Gran (auto) 0.13 H Absolute Neuts (auto) 10.9 H Absolute Nucleated RBC 0.000 Nucleated RBC % 0.0 PT 16.7 H INR 1.3 APTT 28.6 Puncture Site Left radial ABG pH 7.458 H ABG pCO2 31.1 L ABG pO2 80.3 ABG PO2/FiO2 Ratio 1.61 ABG HCO3 21.5 L ABG O2 Saturation 96.5 ABG O2 Content 16.4 ABG Base Excess -1.5 A-a Gradient 241.2 Oxyhemoglobin 94.7 Carboxyhemoglobin 0.6 Methemoglobin 0.1 Reduced Hemoglobin 4.6 Total Hemoglobin 12.3 O2 Delivery Device Ventilator O2 Liters/Min Not Reportable Minute Volume Not Reportable Vent Rate 24 Vent Mode Cmv FiO2 50 Tidal Volume 400 PEEP 10 Peak Inspir Pressure Not Reportable Pressure Support Not Reportable Sodium 139 Potassium 4.2 Chloride 103 Carbon Dioxide 27 Anion Gap 9 BUN 68 H D Creatinine 2.33 H Estim Creat Clear Calc 34 Estimated GFR 21 L Glucose 203 H POC Capillary Glucose 187 H Calcium 8.4 Phosphorus 4.5 Magnesium 2.5 H Total Bilirubin 0.9 AST 127 H ALT 468 H Alkaline Phosphatase 148 H Total Protein 6.0 L Albumin 2.9 L 04/10/24 09:01 WBC RBC Hgb Hct MCV MCH MCHC RDW Plt Count MPV Immature Gran % (Auto) Neut % (Auto) Lymph % (Auto) Wright % (Auto) Eos % (Auto) Baso % (Auto) Lymph # (Auto) Wright # (Auto) Eos # (Auto) Baso # (Auto) Abs Immat Gran (auto) Absolute Neuts (auto) Absolute Nucleated RBC Nucleated RBC % PT INR APTT Puncture Site ABG pH ABG pCO2 ABG pO2 ABG PO2/FiO2 Ratio ABG HCO3 ABG O2 Saturation ABG O2 Content ABG Base Excess A-a Gradient Oxyhemoglobin Carboxyhemoglobin Methemoglobin Reduced Hemoglobin Total Hemoglobin O2 Delivery Device O2 Liters/Min Minute Volume Vent Rate Vent Mode FiO2 Tidal Volume PEEP Peak Inspir Pressure Pressure Support Sodium Potassium Chloride Carbon Dioxide Anion Gap BUN Creatinine Estim Creat Clear Calc Estimated GFR Glucose POC Capillary Glucose 216 H Calcium Phosphorus Magnesium Total Bilirubin AST ALT Alkaline Phosphatase Total Protein Albumin Quality VTE Prophylaxis VTE prophylaxis: pharmacologic ordered
[2024-04-10 12:53] LABS: Glucose Point of Care 200 mg/dl (65-105)
[2024-04-10 17:41] LABS: Glucose Point of Care 228 mg/dl (65-105)
[2024-04-10 20:41] LABS: Glucose Point of Care 215 mg/dl (65-105)
[2024-04-11] VITALS (53 sets, daily range): BP systolic 76–136; BP diastolic 45–93; PULSE 70–138; RESP 20–29; TEMP 36.4–38.2; O2SAT 91–100
[2024-04-11] MEDS: METOPROLOL TARTRATE 12.5 MG TABLET PO ×2 (00:56→06:32)
[2024-04-11] MEDS: dexmedeTOMIDine 400 MCG/100 ML 400 MCG/100 ML BAG 20.25 MCG IV CONT ×5 (00:57→22:40)
[2024-04-11 01:07] LABS: Glucose Point of Care 187 mg/dl (65-105)
[2024-04-11 04:33] LABS: Glucose Point of Care 190 mg/dl (65-105)
[2024-04-11 04:37] LABS: Basophils Percent Auto 0.2 % (0.2-1.2); Eosinophils Percent Auto 0.2 % (0-4.4); Hematocrit 31.2 % (37.0-47.0); Immature Granulocyte Absolute 0.06 K/mm3 (0.00-0.031); Immature Granulocyte Percent A 0.5 % (0-0.5); Lymphocytes Absolute Auto 0.33 K/mm3 (0.9-3.2); Lymphocytes Percent Auto 2.9 % (18.3-44.2); Mean Corpuscular HGB Conc 32.1 g/dl (32-36); Mean Corpuscular Hemoglobin 29.9 pg (26-34); Mean Corpuscular Volume 93.1 fl (80-100); Mean Platelet Volume 10.1 fl (7.4-10.4); Monocytes Absolute Auto 0.4 K/mm3 (0.1-0.6); Monocytes Percent Auto 3.7 % (2.6-8.5); Neutrophils Absolute Auto 10.7 K/mm3 (1.3-6.7); Neutrophils Percent Auto 92.5 % (45.5-73.1); Platelet Count Result 306 k/mm3 (150-375); Red Blood Count 3.35 M/mm3 (4.2-5.4); Red Cell Distribution Width 16.7 % (11.5-14.5); White Blood Count 11.6 K/mm3 (4.5-10.0)
[2024-04-11 04:54] LABS: Alveolar/Arterial O2 Gradient 180.2 mmHg; Base Excess ABG 0.8 mEq/l (+/-2.0); Carboxyhemoglobin 0.5 % THb (0-2.0); Fractional Inspired Oxygen 40 %; HCO3 ABG 23.8 mEq/l (22.0-26.0); Methemoglobin ABG 0.3 %THb (0-1.5); Oxygen Content ABG 16.3 %vol (16.0-22.0); Oxygen Saturation ABG 94.6 % (95.0-100.0); Oxyhemoglobin 92.6 % THb (90.0-100.0); PCO2 ABG 33.2 mmHg (35.0-45.0); PO2 ABG 66.8 mmHg (80.0-100.0); PO2 FiO2 Ratio Arterial Blood 1.67 %; Reduced Hemoglobin 6.6 %THb (0-5.0); Total Hemoglobin 12.5 g/dL (12.0-18.0); pH ABG 7.474 (7.350-7.450)
[2024-04-11 04:55] LABS: Arterial Blood Gas Ventilator rate 24 /MIN; Device VENTILATOR; Modified Allen's Test Pass; Site Drawn RIGHT RADIAL
[2024-04-11 04:56] LABS: Alanine Aminotransferase 341 U/L (6-35); Albumin Level 2.8 g/dL (3.5-5.1); Alkaline Phosphatase 127 U/L (38-126); Anion Gap 10 mmol/L (4-12); Aspartate Amino Transferase 51 U/L (14-36); Bilirubin,Total 0.8 mg/dL (0.2-1.3); Blood Urea Nitrogen 87 mg/dL (7-17); Calcium 8.5 mg/dL (8.4-10.2); Carbon Dioxide 24 mmol/L (22-30); Chloride 105 mmol/L (98-107); Estimated CRCL calculation 34 ml/min; Estimated Glomerular Filt Rate 21; Glucose 187 mg/dL (65-110); Magnesium 2.6 mg/dL (1.6-2.3); Phosphorus 5.3 mg/dL (2.5-4.5); Potassium 4.3 mmol/L (3.4-5.0); Sodium 139 mmol/L (137-145)
[2024-04-11 04:56] LABS: Arterial Blood Gas PEEP 10 cmH2O; Arterial Blood Gas Tidal Volume 400 ml; Arterial Blood Gas Vent Mode CMV
[2024-04-11] MEDS: CENTRAL LINE FLUSH 10 ML IV PUSH ×3 (07:38→21:48)
--- NOTE | 2024-04-11 07:40 | P.CONS_ITS ---
Assessment and Plan Assessment and plan (1) Acute hypoxic respiratory failure: Code(s): J96.01 - Acute respiratory failure with hypoxia Status: Acute Plan Yulia has RSV associated respiratory failure in the setting of VINCENT and sepsis, ENT consulted for tracheostomy which family has agreed to proceed with. Plan for trach placement later this morning. Consent verified. HPI Data of Consult Date/Time: 04/11/24 07:40 Requesting Physician: Safia Portillo PA-C Primary Care Provider: Walt Kirk, MD Consult Narrative Reason for consult: Tracheostomy Narrative: 68yo female with AFib s/p SHAYY cardioversion that was unsuccessful, KAREN not using CPAP, DM, HTN and endometrial cancer who presents with shortness of breath, leg swelling and weight gain over the past few weeks. Now in with respiratory failure secondary to pneumonia with septic shock. Intubated and on mechanical ventilation. RSV positive, acute kidney injury status post dialysis catheter and dialysis Review of Systems 2 Review of Systems: ROS unobtainable: Yes unobtainable due to endotracheal tube PMFSH Past Medical History Medical History Atrial fibrillation History of endometrial cancer Sleep apnea does not use CPAP High cholesterol Diabetes Hypertension Surgical History Surgical History History of total hysterectomy (~2018) History of cholecystectomy (~1998) History of 1977, 1983, 1990 Family History Family History Mother Uterine cancer Daughter Thyroid cancer Sibling Spinal cord cancer Social History Social History Social History: Patient lives at home with her . No pets in the home. Smoking status: Never smoker Alcohol intake: current Alcohol use details: occasional. Less than once a month. Substance use: never Substance use type: does not use Do You Feel Safe in your Home?: Yes Lack of Transportation: No Lack of Food: Never True Current Housing: I Have Housing Concerned About Future Housing: No Difficulty Paying Gas/Electric Bills: No Difficulty Paying for Meds: YES Currently Unemployed: No Education: Trade/Vocational Certificate Difficulty w/ Childcare or Family Care: No Living arrangements: with family Spiritual care concerns: No Meds Home Medications and Allergies Home Medications ?Medication ?Instructions ?Recorded ?Confirmed ?Type losartan 100 1 tablet PO DAILY 03/19/22 03/27/24 History mg-hydrochlorothiazide 25 mg tablet metformin 500 mg tablet 500 mg PO BID 03/19/22 03/27/24 History metoprolol tartrate 25 mg tablet 25 mg PO BID 03/19/22 03/27/24 History rosuvastatin 20 mg tablet 20 mg PO DAILY 01/01/23 03/27/24 History ezetimibe 10 mg tablet 10 mg PO DAILY 01/07/23 03/27/24 History cyanocobalamin (vitamin B-12) 2 tablet PO DAILY 01/06/24 03/27/24 History apixaban 5 mg tablet (Eliquis) 5 mg PO Q12H 03/27/24 03/27/24 History tirzepatide 2.5 mg/0.5 mL 2.5 mg subcut WEEKLY 03/27/24 03/27/24 History subcutaneous pen injector (Todd) Allergies Allergy/AdvReac Type Severity Reaction Status Date / Time No Known Allergies Allergy Verified 03/27/24 11:06 Vital Signs Vital Signs - 24 hr 04/10/24 08:00 04/10/24 08:00 04/10/24 08:00 Temperature Pulse Rate 72 82 Respiratory Rate 24 H Blood Pressure Pulse Oximetry Oxygen Delivery Mechanical Ventilation Fraction of Inspired Oxygen 60 04/10/24 08:00 04/10/24 08:00 04/10/24 08:47 Temperature 37.3 C Pulse Rate 80 72 Respiratory Rate 24 H 24 H Blood Pressure 103/68 Pulse Oximetry 96 Oxygen Delivery Fraction of Inspired Oxygen 60 04/10/24 10:00 04/10/24 10:00 04/10/24 10:00 Temperature 37.3 C Pulse Rate 71 85 85 Respiratory Rate 24 H 24 H Blood Pressure 116/73 Pulse Oximetry 96 Oxygen Delivery Fraction of Inspired Oxygen 04/10/24 11:27 04/10/24 11:39 04/10/24 11:39 Temperature Pulse Rate 99 95 95 Respiratory Rate 24 H 24 H Blood Pressure Pulse Oximetry 95 Oxygen Delivery Mechanical Ventilation Fraction of Inspired Oxygen 50 04/10/24 11:41 04/10/24 12:00 04/10/24 12:00 Temperature Pulse Rate 102 H 102 H Respiratory Rate 26 H Blood Pressure Pulse Oximetry Oxygen Delivery Mechanical Ventilation Fraction of Inspired Oxygen 60 04/10/24 12:00 04/10/24 12:00 04/10/24 12:00 Temperature 37.0 C Pulse Rate 97 102 H Respiratory Rate 26 H Blood Pressure 124/76 Pulse Oximetry 94 Oxygen Delivery Fraction of Inspired Oxygen 50 04/10/24 13:37 04/10/24 14:00 04/10/24 14:00 Temperature 36.9 C Pulse Rate 81 96 96 Respiratory Rate 24 H Blood Pressure 111/72 Pulse Oximetry 97 95 Oxygen Delivery Mechanical Ventilation Fraction of Inspired Oxygen 40 04/10/24 14:00 04/10/24 16:00 04/10/24 16:00 Temperature Pulse Rate 96 107 H Respiratory Rate 24 H 24 H Blood Pressure Pulse Oximetry Oxygen Delivery Mechanical Ventilation Fraction of Inspired Oxygen 60 04/10/24 16:00 04/10/24 16:00 04/10/24 16:00 Temperature 36.8 C Pulse Rate 97 92 Respiratory Rate 27 H Blood Pressure 126/77 Pulse Oximetry 91 Oxygen Delivery Fraction of Inspired Oxygen 40 04/10/24 17:05 04/10/24 17:22 04/10/24 18:00 Temperature Pulse Rate 100 94 85 Respiratory Rate Blood Pressure Pulse Oximetry 92 Oxygen Delivery Mechanical Ventilation Fraction of Inspired Oxygen 40 04/10/24 18:00 04/10/24 18:00 04/10/24 18:31 Temperature 36.8 C Pulse Rate 85 85 88 Respiratory Rate 27 H 27 H 24 H Blood Pressure 115/88 Pulse Oximetry 94 Oxygen Delivery Fraction of Inspired Oxygen 04/10/24 18:31 04/10/24 19:35 04/10/24 20:00 Temperature Pulse Rate 88 104 H 89 Respiratory Rate 24 H 24 H Blood Pressure Pulse Oximetry 100 Oxygen Delivery Mechanical Ventilation Fraction of Inspired Oxygen 40 04/10/24 20:00 04/10/24 20:00 04/10/24 20:00 Temperature 37.2 C Pulse Rate 89 Respiratory Rate 24 H Blood Pressure 118/79 Pulse Oximetry 99 Oxygen Delivery Mechanical Ventilation Fraction of Inspired Oxygen 40 40 04/10/24 20:00 04/10/24 22:00 04/10/24 22:00 Temperature 37.1 C Pulse Rate 79 110 H 110 H Respiratory Rate 22 H 22 H Blood Pressure 117/79 Pulse Oximetry 97 Oxygen Delivery Fraction of Inspired Oxygen 04/10/24 22:00 04/10/24 22:50 04/11/24 00:00 Temperature Pulse Rate 90 93 87 Respiratory Rate 25 H Blood Pressure Pulse Oximetry 91 Oxygen Delivery Mechanical Ventilation Fraction of Inspired Oxygen 40 04/11/24 00:00 04/11/24 00:00 04/11/24 00:00 Temperature 37.1 C Pulse Rate 90 Respiratory Rate 23 H Blood Pressure 123/81 Pulse Oximetry 91 Oxygen Delivery Mechanical Ventilation Fraction of Inspired Oxygen 40 40 04/11/24 00:00 04/11/24 00:51 04/11/24 00:56 Temperature Pulse Rate 89 110 H 114 H Respiratory Rate 29 H Blood Pressure Pulse Oximetry Oxygen Delivery Fraction of Inspired Oxygen 04/11/24 00:57 04/11/24 02:00 04/11/24 02:00 Temperature 37.5 C Pulse Rate 110 H 82 82 Respiratory Rate 29 H 24 H 24 H Blood Pressure 107/85 Pulse Oximetry 93 Oxygen Delivery Fraction of Inspired Oxygen 04/11/24 02:00 04/11/24 02:07 04/11/24 04:00 Temperature Pulse Rate 82 84 86 Respiratory Rate 24 H Blood Pressure Pulse Oximetry 93 Oxygen Delivery Mechanical Ventilation Fraction of Inspired Oxygen 40 04/11/24 04:00 04/11/24 04:00 04/11/24 04:00 Temperature 37.8 C H Pulse Rate 86 Respiratory Rate 24 H Blood Pressure 92/71 L Pulse Oximetry 92 Oxygen Delivery Mechanical Ventilation Fraction of Inspired Oxygen 40 40 04/11/24 04:00 04/11/24 04:35 04/11/24 05:30 Temperature Pulse Rate 79 80 80 Respiratory Rate Blood Pressure Pulse Oximetry 92 91 Oxygen Delivery Mechanical Ventilation Mechanical Ventilation Fraction of Inspired Oxygen 40 50 04/11/24 06:00 04/11/24 06:00 04/11/24 06:32 Temperature Pulse Rate 75 75 78 Respiratory Rate 24 H 24 H Blood Pressure Pulse Oximetry Oxygen Delivery Fraction of Inspired Oxygen Exam 2 Narrative: Intubated, neck landmarks identifiable, trachea midline, no cervical adenopathy. Rest of ENT exam unremarkable. Results Labs 04/11/24 04:11 04/11/24 04:11 Labs: Short CBC 04/11/24 Range/Units 04:11 WBC 11.6 H (4.5-10.0) K/mm3 Hgb 10.0 L (12.0-15.0) g/dL Hct 31.2 L (37.0-47.0) % Plt Count 306 (150-375) k/mm3 BMP 04/11/24 04:11 Sodium 139 Potassium 4.3 Chloride 105 Carbon Dioxide 24 BUN 87 H D Creatinine 2.30 H Glucose 187 H Calcium 8.5 Liver Function 04/11/24 Range/Units 04:11 Total Bilirubin 0.8 (0.2-1.3) mg/dL AST 51 H (14-36) U/L ALT 341 H (6-35) U/L Alkaline Phosphatase 127 H (38-126) U/L Albumin 2.8 L (3.5-5.1) g/dL
[2024-04-11 08:01] LABS: Glucose Point of Care 181 mg/dl (65-105)
[2024-04-11] MEDS: MINERAL OIL/WHITE PETROLATUM OINTMENT 1 APPLIC EACH EYE (09:29)
[2024-04-11] MEDS: PANTOPRAZOLE SODIUM IV 40 MG VIAL IV PUSH (09:29)
[2024-04-11] MEDS: DOCOSANOL 10% CREAM 2 GM 1 APPLIC TOPICAL ×5 (09:29→21:47)
--- NOTE | 2024-04-11 09:49 | WPDGICN ---
Assessment and Plan Assessment and plan (1) Acute hypoxic respiratory failure: Code(s): J96.01 - Acute respiratory failure with hypoxia Status: Acute Assessment and Plan: admitted several days ago with sepsis, respiratory failure unable to wean will need tracheostomy and PEG placement (will perform tomorrow), this was discussed also with family (2) Sepsis: Code(s): A41.9 - Sepsis, unspecified organism Status: Acute Assessment and Plan: it has been treated, also RSV (3) RSV (respiratory syncytial virus pneumonia): Code(s): J12.1 - Respiratory syncytial virus pneumonia Status: Acute (4) VINCENT (acute kidney injury): Code(s): N17.9 - Acute kidney failure, unspecified Status: Acute (5) Atrial fibrillation: Code(s): I48.91 - Unspecified atrial fibrillation Status: Acute (6) Malnutrition: Code(s): E46 - Unspecified protein-calorie malnutrition Status: Acute Assessment and Plan: she has been getting formula using [facility] Consult Note Consult date/time: 04/11/24 09:49 Reason for consult: unable to eat, malnutrition, respiratory failure, sepsis HPI: Yulia Francisco is a 68 year old female admitted originally 03/27/24 with respiratory failure in ICU. Also AFib s/p SHAYY cardioversion that was unsuccessful, KAREN not using CPAP, DM, HTN and endometrial cancer who came with worsening shortness of breath, leg swelling and weight gain over the past few weeks then developed respiratory failure secondary to pneumonia with septic shock, + RSV. Intubated and on mechanical ventilation. Also developed acute kidney injury status post dialysis catheter and dialysis, still intubated and unable to wean. She has been getting feeding by [facility]. Today will get tracheostomy and primary also discussed with family to get PEG for nutrition (daughter at bedside today and she is agreeable) Review of Systems Review of Systems: ROS unobtainable: Yes unobtainable due to endotracheal tube and unobtainable due to medical condition PMFSH Past Medical History Medical History (Updated 04/11/24 @ 09:53 by Tuan Miles MD) Malnutrition Atrial fibrillation History of endometrial cancer Sleep apnea does not use CPAP High cholesterol Diabetes Hypertension Surgical History Surgical History History of total hysterectomy (~2019) History of cholecystectomy (~1998) History of 1977, 1983, 1990 Family History Family History Mother Uterine cancer Daughter Thyroid cancer Sibling Spinal cord cancer Social History Social History Social History: Patient lives at home with her . No pets in the home. Smoking status: Never smoker Alcohol intake: current Alcohol use details: occasional. Less than once a month. Substance use: never Substance use type: does not use Do You Feel Safe in your Home?: Yes Lack of Transportation: No Lack of Food: Never True Current Housing: I Have Housing Concerned About Future Housing: No Difficulty Paying Gas/Electric Bills: No Difficulty Paying for Meds: YES Currently Unemployed: No Education: Trade/Vocational Certificate Difficulty w/ Childcare or Family Care: No Living arrangements: with family Spiritual care concerns: No Meds Home Medications and Allergies Home Medications ?Medication ?Instructions ?Recorded ?Confirmed ?Type losartan 100 1 tablet PO DAILY 03/19/22 03/27/24 History mg-hydrochlorothiazide 25 mg tablet metformin 500 mg tablet 500 mg PO BID 03/19/22 03/27/24 History metoprolol tartrate 25 mg tablet 25 mg PO BID 03/19/22 03/27/24 History rosuvastatin 20 mg tablet 20 mg PO DAILY 01/01/23 03/27/24 History ezetimibe 10 mg tablet 10 mg PO DAILY 01/07/23 03/27/24 History cyanocobalamin (vitamin B-12) 2 tablet PO DAILY 01/06/24 03/27/24 History apixaban 5 mg tablet (Eliquis) 5 mg PO Q12H 03/27/24 03/27/24 History tirzepatide 2.5 mg/0.5 mL 2.5 mg subcut WEEKLY 03/27/24 03/27/24 History subcutaneous pen injector (Mounjaro) Allergies Allergy/AdvReac Type Severity Reaction Status Date / Time No Known Allergies Allergy Verified 03/27/24 11:06 Vital Signs Vital Signs - 24 hr 04/10/24 10:00 04/10/24 10:00 04/10/24 10:00 Temperature 99.1 F Pulse Rate 71 85 85 Respiratory Rate 24 H 24 H Blood Pressure 116/73 Pulse Oximetry 96 Oxygen Delivery Fraction of Inspired Oxygen 04/10/24 11:27 04/10/24 11:39 04/10/24 11:39 Temperature Pulse Rate 99 95 95 Respiratory Rate 24 H 24 H Blood Pressure Pulse Oximetry 95 Oxygen Delivery Mechanical Ventilation Fraction of Inspired Oxygen 50 04/10/24 11:41 04/10/24 12:00 04/10/24 12:00 Temperature Pulse Rate 102 H 102 H Respiratory Rate 26 H Blood Pressure Pulse Oximetry Oxygen Delivery Mechanical Ventilation Fraction of Inspired Oxygen 60 04/10/24 12:00 04/10/24 12:00 04/10/24 12:00 Temperature 98.6 F Pulse Rate 97 102 H Respiratory Rate 26 H Blood Pressure 124/76 Pulse Oximetry 94 Oxygen Delivery Fraction of Inspired Oxygen 50 04/10/24 13:37 04/10/24 14:00 04/10/24 14:00 Temperature 98.5 F Pulse Rate 81 96 96 Respiratory Rate 24 H Blood Pressure 111/72 Pulse Oximetry 97 95 Oxygen Delivery Mechanical Ventilation Fraction of Inspired Oxygen 40 04/10/24 14:00 04/10/24 16:00 04/10/24 16:00 Temperature Pulse Rate 96 107 H Respiratory Rate 24 H 24 H Blood Pressure Pulse Oximetry Oxygen Delivery Mechanical Ventilation Fraction of Inspired Oxygen 60 04/10/24 16:00 04/10/24 16:00 04/10/24 16:00 Temperature 98.2 F Pulse Rate 97 92 Respiratory Rate 27 H Blood Pressure 126/77 Pulse Oximetry 91 Oxygen Delivery Fraction of Inspired Oxygen 40 04/10/24 17:05 04/10/24 17:22 04/10/24 18:00 Temperature Pulse Rate 100 94 85 Respiratory Rate Blood Pressure Pulse Oximetry 92 Oxygen Delivery Mechanical Ventilation Fraction of Inspired Oxygen 40 04/10/24 18:00 04/10/24 18:00 04/10/24 18:31 Temperature 98.2 F Pulse Rate 85 85 88 Respiratory Rate 27 H 27 H 24 H Blood Pressure 115/88 Pulse Oximetry 94 Oxygen Delivery Fraction of Inspired Oxygen 04/10/24 18:31 04/10/24 19:35 04/10/24 20:00 Temperature Pulse Rate 88 104 H 89 Respiratory Rate 24 H 24 H Blood Pressure Pulse Oximetry 100 Oxygen Delivery Mechanical Ventilation Fraction of Inspired Oxygen 40 04/10/24 20:00 04/10/24 20:00 04/10/24 20:00 Temperature 98.9 F Pulse Rate 89 Respiratory Rate 24 H Blood Pressure 118/79 Pulse Oximetry 99 Oxygen Delivery Mechanical Ventilation Fraction of Inspired Oxygen 40 40 04/10/24 20:00 04/10/24 22:00 04/10/24 22:00 Temperature 98.8 F Pulse Rate 79 110 H 110 H Respiratory Rate 22 H 22 H Blood Pressure 117/79 Pulse Oximetry 97 Oxygen Delivery Fraction of Inspired Oxygen 04/10/24 22:00 04/10/24 22:50 04/11/24 00:00 Temperature Pulse Rate 90 93 87 Respiratory Rate 25 H Blood Pressure Pulse Oximetry 91 Oxygen Delivery Mechanical Ventilation Fraction of Inspired Oxygen 40 04/11/24 00:00 04/11/24 00:00 04/11/24 00:00 Temperature 98.8 F Pulse Rate 90 Respiratory Rate 23 H Blood Pressure 123/81 Pulse Oximetry 91 Oxygen Delivery Mechanical Ventilation Fraction of Inspired Oxygen 40 40 04/11/24 00:00 04/11/24 00:51 04/11/24 00:56 Temperature Pulse Rate 89 110 H 114 H Respiratory Rate 29 H Blood Pressure Pulse Oximetry Oxygen Delivery Fraction of Inspired Oxygen 04/11/24 00:57 04/11/24 02:00 04/11/24 02:00 Temperature 99.5 F Pulse Rate 110 H 82 82 Respiratory Rate 29 H 24 H 24 H Blood Pressure 107/85 Pulse Oximetry 93 Oxygen Delivery Fraction of Inspired Oxygen 04/11/24 02:00 04/11/24 02:07 04/11/24 04:00 Temperature Pulse Rate 82 84 86 Respiratory Rate 24 H Blood Pressure Pulse Oximetry 93 Oxygen Delivery Mechanical Ventilation Fraction of Inspired Oxygen 40 04/11/24 04:00 04/11/24 04:00 04/11/24 04:00 Temperature 100.0 F H Pulse Rate 86 Respiratory Rate 24 H Blood Pressure 92/71 L Pulse Oximetry 92 Oxygen Delivery Mechanical Ventilation Fraction of Inspired Oxygen 40 40 04/11/24 04:00 04/11/24 04:35 04/11/24 05:30 Temperature Pulse Rate 79 80 80 Respiratory Rate Blood Pressure Pulse Oximetry 92 91 Oxygen Delivery Mechanical Ventilation Mechanical Ventilation Fraction of Inspired Oxygen 40 50 04/11/24 06:00 04/11/24 06:00 04/11/24 06:00 Temperature 99.6 F Pulse Rate 75 75 72 Respiratory Rate 24 H 24 H 24 H Blood Pressure 84/73 L Pulse Oximetry 95 Oxygen Delivery Fraction of Inspired Oxygen 04/11/24 06:00 04/11/24 06:32 04/11/24 08:00 Temperature 99.4 F Pulse Rate 72 78 72 Respiratory Rate 24 H Blood Pressure 94/72 L Pulse Oximetry 96 Oxygen Delivery Fraction of Inspired Oxygen 04/11/24 08:00 04/11/24 08:00 04/11/24 08:00 Temperature Pulse Rate 72 70 Respiratory Rate 21 H Blood Pressure Pulse Oximetry Oxygen Delivery Fraction of Inspired Oxygen 40 04/11/24 08:15 Temperature Pulse Rate 76 Respiratory Rate Blood Pressure Pulse Oximetry 97 Oxygen Delivery Mechanical Ventilation Fraction of Inspired Oxygen 50 Exam Narrative: General: Patient intubated on Precedex infusion, in no acute distress, obese HEENT: OGT and ETT in place Lungs/Chest: Coarse breath sounds bilaterally, no wheezing, decreased air entry at bases Cardiac: Irregularly irregular, heart rates in the 90s to 100s Circulation: Pedal pulses are intact and symmetrical. Abdomen: Normoactive bowel sounds bowel sounds. Morbidly Obese. Soft. NT. ND. Extremities: No clubbing, cyanosis, bilateral upper and lower extremity edema improving : Can in place Neurologic: Intubated on Precedex infusion, opens her eyes, follows simple command in all extremities Results Labs 04/11/24 04:11 04/11/24 04:11 Labs: Short CBC 04/11/24 Range/Units 04:11 WBC 11.6 H (4.5-10.0) K/mm3 Hgb 10.0 L (12.0-15.0) g/dL Hct 31.2 L (37.0-47.0) % Plt Count 306 (150-375) k/mm3 [facility] 04/11/24 04:11 Sodium 139 Potassium 4.3 Chloride 105 Carbon Dioxide 24 BUN 87 H D Creatinine 2.30 H Glucose 187 H Calcium 8.5 Liver Function 04/11/24 Range/Units 04:11 Total Bilirubin 0.8 (0.2-1.3) mg/dL AST 51 H (14-36) U/L ALT 341 H (6-35) U/L Alkaline Phosphatase 127 H (38-126) U/L Albumin 2.8 L (3.5-5.1) g/dL
--- NOTE | 2024-04-11 10:14 | WPDHPUPDATE1 ---
History and Physical Update Update Date/Time: 04/11/24 10:14 History and Physical has been reviewed, including an updated exam of the patient. There are NO changes in the patient's condition. Risks, benefits, and alternatives have been discussed and questions answered. Patient agrees to proceed with procedure.
--- NOTE | 2024-04-11 10:21 | P.OP_ITS ---
Procedure Note - Detailed Date of Procedure 04/11/24 Pre-op Diagnosis Community-acquired pneumonia, AFib, hypoxia Post-op Diagnosis Same Procedure Performed Tracheostomy Surgeon Malcolm Reyes MD Anesthesia General Indications respiratory failure Findings 7-0 proximal XLT trach Description of Procedure The patient was previously consented by family. They were then brought back to the OR and induced with anesthesia through the endotracheal tube. They were then transferred to the OR table. A shoulder roll was placed. Landmarks were palpated and marked. A timeout was performed. An 7-0 proximal XLT tracheostomy tube was selected and tested. The patient was prepped and drapped in the usual sterile fashion for an tracheotostomy. A horizontal incision was made along the marked line 1-2 cm above the suprasternal notch. Dissection was carried down in the midline through subcutaneous tissues using a hemostat and retraction by vein retractor and then [employer] retractors. The strap muscles were identified and divided using a combination of blunt dissection through the median raphe and electrocautery. The thyroid isthmus was encounted and divided using electrocautery and retracted. The trachea was encountered. A cricoid hook was placed to stabilize and elevate the trachea. The tracheostomy tube was tested on the field and showed no leak. After confirmation with anesthesia and the respiratory therapy technician ensuring FiO2 was acceptable an #11 blade was used to make a horizontal incision into the trachea. Heavy scissors were used to make parallel vertical cuts laterally through the second ring. The endotracheal tube was pulled. The tracheostomy tube was placed and successfully hooked up the circuit. The airway was stabilized and verified by anesthesia. The cricoid/tracheal hook was carefully removed. The tracheotomy tube was then secured with 0 silk sutures placed at each corner of the trach tube and the underlying skin. A tracheal tie was then placed. This ended this portion of the procedure and care of the patient was returned to anesthesia who recovered him in the ICU. Estimated Blood Loss 10 Urine Output 350 Drains No Packing No Pathology None sent Complications No immediate complications Condition Stable Disposition ICU
--- NOTE | 2024-04-11 10:32 | P.PNAN_ITS ---
Anes - Eval Pre Procedure Procedure: Operation Date: 03/29/24 14:30 Proposed Procedures p Electrical Cardioversion - Gem Swartz MD Operation Date: 04/11/24 10:45 Proposed Procedures p Tracheostomy - Malcolm Reyes MD Date/Time: 04/11/24 10:32 Preop Diagnosis: Unable to wean Pre Op Diagnosis: Community-acquired pneumonia, AFib, hypoxia Patient Data Age: 68 Gender: F Height: 1.78 m Weight: 155 kg Last Vital Signs Temp 99.0 F 04/11/24 10:00 Pulse 75 04/11/24 10:05 Resp 21 H 04/11/24 10:05 BP 99/67 L 04/11/24 10:00 Pulse Ox 94 04/11/24 10:00 O2 Del Method Mechanical Ventilation 04/11/24 08:15 O2 Flow Rate 8 03/28/24 12:00 FiO2 50 04/11/24 08:15 Allergies Allergy/AdvReac Type Severity Reaction Status Date / Time No Known Allergies Allergy Verified 03/27/24 11:06 Home Medications ?Medication ?Instructions ?Recorded ?Confirmed ?Type losartan 100 1 tablet PO DAILY 03/19/22 03/27/24 History mg-hydrochlorothiazide 25 mg tablet metformin 500 mg tablet 500 mg PO BID 03/19/22 03/27/24 History metoprolol tartrate 25 mg tablet 25 mg PO BID 03/19/22 03/27/24 History rosuvastatin 20 mg tablet 20 mg PO DAILY 01/01/23 03/27/24 History ezetimibe 10 mg tablet 10 mg PO DAILY 01/07/23 03/27/24 History cyanocobalamin (vitamin B-12) 2 tablet PO DAILY 01/06/24 03/27/24 History apixaban 5 mg tablet (Eliquis) 5 mg PO Q12H 03/27/24 03/27/24 History tirzepatide 2.5 mg/0.5 mL 2.5 mg subcut WEEKLY 03/27/24 03/27/24 History subcutaneous pen injector (Mounjaro) Laboratory Tests 04/10/24 04/10/24 04/10/24 12:45 17:18 20:38 WBC RBC Hgb Hct MCV MCH MCHC RDW Plt Count MPV Immature Gran % (Auto) Neut % (Auto) Lymph % (Auto) [place] % (Auto) Eos % (Auto) Baso % (Auto) Lymph # (Auto) [place] # (Auto) Eos # (Auto) Baso # (Auto) Abs Immat Gran (auto) Absolute Neuts (auto) Absolute Nucleated RBC Nucleated RBC % Puncture Site ABG pH ABG pCO2 ABG pO2 ABG PO2/FiO2 Ratio ABG HCO3 ABG O2 Saturation ABG O2 Content ABG Base Excess A-a Gradient Oxyhemoglobin Carboxyhemoglobin Methemoglobin Reduced Hemoglobin Total Hemoglobin O2 Delivery Device O2 Liters/Min Minute Volume Vent Rate Vent Mode FiO2 Tidal Volume PEEP Peak Inspir Pressure Pressure Support Sodium Potassium Chloride Carbon Dioxide Anion Gap BUN Creatinine Estim Creat Clear Calc Estimated GFR Glucose POC Capillary Glucose 200 H mg/dl 228 H mg/dl 215 H mg/dl (65-105) (65-105) (65-105) Calcium Phosphorus Magnesium Total Bilirubin AST ALT Alkaline Phosphatase Total Protein Albumin 04/11/24 04/11/24 04/11/24 00:44 04:04 04:11 WBC 11.6 H K/mm3 (4.5-10.0) RBC 3.35 L M/mm3 (4.2-5.4) Hgb 10.0 L g/dL (12.0-15.0) Hct 31.2 L % (37.0-47.0) MCV 93.1 fl (80-100) MCH 29.9 pg (26-34) MCHC 32.1 g/dl (32-36) RDW 16.7 H % (11.5-14.5) Plt Count 306 k/mm3 (150-375) MPV 10.1 fl (7.4-10.4) Immature Gran % (Auto) 0.5 % (0-0.5) Neut % (Auto) 92.5 H % (45.5-73.1) Lymph % (Auto) 2.9 L % (18.3-44.2) [place] % (Auto) 3.7 % (2.6-8.5) Eos % (Auto) 0.2 % (0-4.4) Baso % (Auto) 0.2 % (0.2-1.2) Lymph # (Auto) 0.33 L K/mm3 (0.9-3.2) [place] # (Auto) 0.4 K/mm3 (0.1-0.6) Eos # (Auto) 0.0 K/mm3 (0-0.3) Baso # (Auto) 0.0 K/mm3 (0.0-0.1) Abs Immat Gran (auto) 0.06 H K/mm3 (0.00-0.031) Absolute Neuts (auto) 10.7 H K/mm3 (1.3-6.7) Absolute Nucleated RBC 0.000 K/mm3 (0.0-0.012) Nucleated RBC % 0.0 % (0.0-0.2) Puncture Site ABG pH ABG pCO2 ABG pO2 ABG PO2/FiO2 Ratio ABG HCO3 ABG O2 Saturation ABG O2 Content ABG Base Excess A-a Gradient Oxyhemoglobin Carboxyhemoglobin Methemoglobin Reduced Hemoglobin Total Hemoglobin O2 Delivery Device O2 Liters/Min Minute Volume Vent Rate Vent Mode FiO2 Tidal Volume PEEP Peak Inspir Pressure Pressure Support Sodium 139 mmol/L (137-145) Potassium 4.3 mmol/L (3.4-5.0) Chloride 105 mmol/L (98-107) Carbon Dioxide 24 mmol/L (22-30) Anion Gap 10 mmol/L (4-12) BUN 87 H D mg/dL (7-17) Creatinine 2.30 H mg/dL (0.7-1.0) Estim Creat Clear Calc 34 ml/min Estimated GFR 21 L (59 - ) Glucose 187 H mg/dL (65-110) POC Capillary Glucose 187 H mg/dl 190 H mg/dl (65-105) (65-105) Calcium 8.5 mg/dL (8.4-10.2) Phosphorus 5.3 H mg/dL (2.5-4.5) Magnesium 2.6 H mg/dL (1.6-2.3) Total Bilirubin 0.8 mg/dL (0.2-1.3) AST 51 H U/L (14-36) ALT 341 H U/L (6-35) Alkaline Phosphatase 127 H U/L (38-126) Total Protein 6.0 L g/dL (6.3-8.2) Albumin 2.8 L g/dL (3.5-5.1) 04/11/24 04/11/24 04:31 07:45 WBC RBC Hgb Hct MCV MCH MCHC RDW Plt Count MPV Immature Gran % (Auto) Neut % (Auto) Lymph % (Auto) [place] % (Auto) Eos % (Auto) Baso % (Auto) Lymph # (Auto) [place] # (Auto) Eos # (Auto) Baso # (Auto) Abs Immat Gran (auto) Absolute Neuts (auto) Absolute Nucleated RBC Nucleated RBC % Puncture Site Right radial ABG pH 7.474 H (7.350-7.450) ABG pCO2 33.2 L mmHg (35.0-45.0) ABG pO2 66.8 L mmHg (80.0-100.0) ABG PO2/FiO2 Ratio 1.67 % ABG HCO3 23.8 mEq/l (22.0-26.0) ABG O2 Saturation 94.6 L % (95.0-100.0) ABG O2 Content 16.3 %vol (16.0-22.0) ABG Base Excess 0.8 mEq/l (+/-2.0) A-a Gradient 180.2 mmHg Oxyhemoglobin 92.6 % THb (90.0-100.0) Carboxyhemoglobin 0.5 % THb (0-2.0) Methemoglobin 0.3 %THb (0-1.5) Reduced Hemoglobin 6.6 H %THb (0-5.0) Total Hemoglobin 12.5 g/dL (12.0-18.0) O2 Delivery Device Ventilator O2 Liters/Min Not Reportable Minute Volume Not Reportable Vent Rate 24 /MIN Vent Mode Cmv FiO2 40 % Tidal Volume 400 ml PEEP 10 cmH2O Peak Inspir Pressure Not Reportable Pressure Support Not Reportable Sodium Potassium Chloride Carbon Dioxide Anion Gap BUN Creatinine Estim Creat Clear Calc Estimated GFR Glucose POC Capillary Glucose 181 H mg/dl (65-105) Calcium Phosphorus Magnesium Total Bilirubin AST ALT Alkaline Phosphatase Total Protein Albumin Patient hx anesthesia problems: none Family hx anesthesia problems: none Results Review: All pre-operative results and documents have been reviewed as part of the pre-operative evaluation. [facility] Past Medical History Medical History Acute hypoxic respiratory failure Atrial fibrillation with RVR Septic shock RSV (respiratory syncytial virus pneumonia) Malnutrition Atrial fibrillation History of endometrial cancer Sleep apnea does not use CPAP High cholesterol Diabetes Hypertension Surgical History Surgical History History of total hysterectomy (~2018) History of cholecystectomy (~1998) History of 1977, 1983, 1990 Family History Family History Mother Uterine cancer Daughter Thyroid cancer Sibling Spinal cord cancer Social History Social History Social History: Patient lives at home with her . No pets in the home. Smoking status: Never smoker Alcohol intake: current Alcohol use details: occasional. Less than once a month. Substance use: never Substance use type: does not use Do You Feel Safe in your Home?: Yes Lack of Transportation: No Lack of Food: Never True Current Housing: I Have Housing Concerned About Future Housing: No Difficulty Paying Gas/Electric Bills: No Difficulty Paying for Meds: YES Currently Unemployed: No Education: Trade/Vocational Certificate Difficulty w/ Childcare or Family Care: No Living arrangements: with family Spiritual care concerns: No Exam Day of Procedure 04/11/24 10:32 Patient weight: super morbidly obese Heart: irregular rhythm (afib RVR) Lungs: other Airway: other Neurological: other (keira)
--- NOTE | 2024-04-11 10:43 | PC.NURSE ---
Patient transported to OR via bed at 1030. Consent and documentation sent. RT present. Report given to INES Pinon and Lior Kent.
[2024-04-11] MEDS: LIDO 1%/EPINEPHRINE 1:100,000 20 ML VIAL 5 ML INFILTRATE (11:05)
--- NOTE | 2024-04-11 11:13 | PCFNICU ---
ICU Rounding Note: Pt current nutrition is NPO for trach placement today. Nutrition recommendation: Resume tube feeding after procedure. Nepro @ 40 ml/gh with flushes 30 ml q 4 h Last recorded weight is 155 kg. Bowel Motility: +2 BMs 04/11/24 Labs Reviewed: Hgb 10, Hct 31.2, Alb 2.8, BUN 87, Cre 2.3, Glu 187 Meds Noted: Lantus, novolog, protonix, fentanyl, versed Skin: No pressure injuries noted Additional Notes: Tracheostomy placement for today. PEG scheduled to be placed tomorrow. TF on hold, with breathing trial post trach. Resume previous TF orders when medically able. Following daily in ICU rounds. Will monitor weight, labs, skin, diet orders, meds, tube feeding tolerance every Thursday and Thursday. .
--- NOTE | 2024-04-11 11:27 | PC.NURSE ---
Report received from CLEMENTINA Kent @ 1125. Size 7 laurent, ebnicholas 10. Surgicel and ties for dressing. Trach Box in room. Size and size smaller ordered from central.
[2024-04-11 11:52] LABS: Glucose Point of Care 167 mg/dl (65-105)
--- NOTE | 2024-04-11 11:53 | PC.NURSE ---
Patient received from OR. Awaiting orders from ENT. Size 6 (size below implanted trach) in room. Current size unavailable from central dispensing.
--- NOTE | 2024-04-11 12:09 | WPDINTPN ---
Progress Note: A&P Assessment and Plan (1) Acute hypoxic respiratory failure: Code(s): J96.01 - Acute respiratory failure with hypoxia Status: Acute Assessment and Plan: Acute hypoxic respiratory failure secondary to pneumonia and congestive heart failure Patient now emergently intubated 03/28 -03/28: Repeat PCR was positive RSV -continue isolation -chest x-ray and ABGs reviewed this morning -Currently PEEP to 10 and FiO2 down to 30% -patient will require additional fluid removal before considering weaning from mechanical ventilation -04/09: Started on Precedex infusion, Versed and fentanyl infusion were discontinued -status post stress dose steroids. -discussed with Nephrology, patient did have if improved urine output over the last 24 hours, and since she did not tolerate dialysis well, belt tender recommended commended Bumex 2 mg IV x1. If she does not respond well, will have to dialyze the patient 04/06: Patient did respond to Bumex that was given yesterday with 1900 mL urine output in the last 24 hours 04/07: A new dialysis catheter has been placed in the left IJ, currently functioning well. Have discussed with Nephrology to continue to remove fluid 04/08: Patient was dialyzed yesterday with 1000 mL in fluid removal, urine output has been adequate, I have asked the bedside RN to turn of the sedation, patient remains somnolent, will place patient on ASV, start Precedex infusion since she is getting tachycardic and hypertensive. Once she is more awake will place her on SBT and evaluate for extubation -04/09: Patient getting dialyzed today. Received Bumex last night with good urine output. Chest x-ray shows worsening airspace opacity right mid and lower lung zones. Worsened small right pleural effusion. FiO2 requirements have increased to 60% from 35%. Place patient on pressure support ventilation, 02/06, low tidal volumes, tachypnea, tachycardia, had to be placed back on CMV mode Discussed with and daughter and updated them with patient's condition, intubated for almost 2 weeks, they agreeable with tracheostomy, as scheduled and with ENT for 04/11/2024. -GI has been consulted for PEG tube placement 04/10: Tried to place patient again on pressure support ventilation 02/06, was not getting adequate tidal volumes, was also tachypneic. Also tried ASV, her respiratory rate was too low. I have asked the bedside RN to come down on her Precedex 04/11: Scheduled for tracheostomy today, PEG tube to be placed on 04/12. -once she get a tracheostomy will start weaning trials again 03/27 CTA chest Impression: No evidence of pulmonary embolus, aortic dissection, or aortic aneurysm. Extensive right lower lobe pneumonia. Probable mildly prominent reactive lymphadenopathy the right axilla and subcarinal region. (2) Sepsis: Code(s): A41.9 - Sepsis, unspecified organism Status: Acute Assessment and Plan: RESOLVED Sepsis/septic shock secondary to community-acquired pneumonia, initial procalcitonin level 4.4 Blood cultures ordered and negative till now Sputum cultures negative Urine Legionella and pneumococcal antigen negative Status post cefepime and azithromycin MRSA screen negative. Vancomycin discontinued (3) Diabetes: Code(s): E11.9 - Type 2 diabetes mellitus without complications Status: Chronic Assessment and Plan: Status post insulin infusion Continue to hold Lantus to 60 units q.12 since blood sugars on trending down after switching patient to Nepro on tube feeds Status post steroids, also she got dialyzed better with the new dialysis catheter in the right IJ, likely dropped her blood sugars. -continue Accu-Cheks and sliding scale insulin -holding tube feeds for tracheostomy (4) Atrial fibrillation with RVR: Code(s): I48.91 - Unspecified atrial fibrillation Status: Acute Assessment and Plan: Patient was amiodarone infusion which has been switched to p.o. amiodarone per tube metoprolol by Cardiology Patient is anticoagulated with Eliquis, currently on hold for tracheostomy and PEG tube placement Echo Summary 1. Very technically difficult study with limited views. 2. Left ventricular chamber dimension is normal. 3. Left ventricular systolic function is at lower limits of normal, estimated at 50-55%. 4. Left atrial chamber dimension is moderately enlarged (5) Community acquired pneumonia: Code(s): J18.9 - Pneumonia, unspecified organism Status: Acute Assessment and Plan: See above (6) Altered mental status: Code(s): R41.82 - Altered mental status, unspecified Status: Acute Assessment and Plan: Likely secondary to hypoxia. Patient had CT scan of the head recently done which was unremarkable Repeat head CT on 03/28 was again unremarkable Ammonia levels within normal limit TSH was normal -patient continues to open her eyes and follows simple commands (7) Electrolyte abnormality: Code(s): E87.8 - Other disorders of electrolyte and fluid balance, not elsewhere classified Status: Acute Assessment and Plan: Patient on dialysis (8) Shock: Code(s): R57.9 - Shock, unspecified Status: Acute Assessment and Plan: RESOLVED Patient was on Levophed and vasopressin infusion which are currently off -off stress dose steroid - status post 25% albumin -Hold further crystalloids (9) VINCENT (acute kidney injury): Code(s): N17.9 - Acute kidney failure, unspecified Status: Acute Assessment and Plan: Increase in creatinine and drop in urine output likely secondary to shock Patient received IV fluids and 5% albumin earlier in the course. norm CK level Renal ultrasound showed No hydronephrosis. Perinephric fluid collection adjacent to the left lower pole. Nephrology following Continued maintain mean arterial pressure with vasopressors if needed 04/02 Discussed with belt tender and patient's family. Discussed risks and benefits of starting hemodialysis. [employer] Sales Consultant and patient's family in agreement. Patient's consented to proceed. Temporary dialysis catheter placed. Patient was dialyzed. Further dialysis per as per Nephrology -04/04: Patient did not tolerate dialysis as she became tachypneic, tachycardic and hypotensive requiring restarting Levophed. -04/05: D[employer] Sales Consultant recommended giving Bumex 2 mg IV x1 since patient had slightly improved urine output over the last 24 hours and a creatinine and BUN trending downward, - will monitor urine output, renal function and electrolytes 04/06: Discuss with Nephrology, patient received dialysis today with no removal of fluid 04/07: New left IJ dialysis catheter was inserted today, currently functioning well. Right IJ dialysis catheter was removed -dialysis per Nephrology (10) Elevated liver enzymes: Code(s): R74.8 - Abnormal levels of other serum enzymes Status: Acute Assessment and Plan: Patient is status post cholecystectomy Elevated AST ALT and alkaline phosphatase likely secondary to shock liver Hold statin Right upper quadrant ultrasound - Status post cholecystectomy. Pancreas poorly visualized. Otherwise normal abdominal ultrasound findings. While hepatitis panel was negative Levels were increasing I have discussed with Cardiology regarding potential amiodarone related hepatotoxicity. Patient was on IV amiodarone earlier for rate control as patient was in AFib with RVR. It was switched to p.o. as the rate improved. 04/03 amiodarone was held GI consult and following LFTs have been improving, continue to monitor Plan DVT prophylaxis -Eliquis, currently on hold for tracheostomy and PEG tube placement, will restart after PEG tube placement, Stress ulcer prophylaxis -protonix Nutrition -holding tube feeds for tracheostomy today Code Status - Full Code Total Critical Care Time - 33 minutes Discussed with family and updated with patient's condition and plan of care. They would aware that he is going to get tracheostomy today and PEG tube placement on 04/12 Due to a high probability of clinically significant, life threatening deterioration, the patient required my highest level of preparedness to intervene emergently and I personally spent this critical care time directly and personally managing the patient. This critical care time included obtaining a history; examining the patient; pulse oximetry; ordering and review of studies; arranging urgent treatment with development of a management plan; evaluation of patient's response to treatment; frequent reassessment; and discussions with other providers. It was exclusive of separately billable procedures and treating other patients and teaching time. Please see Assessment and Plan section and the rest of the note for further information on patient assessment and treatment This dictation may have been done utilizing a voice recognition system. Attempts have been made to correct errors. However, there may be uncorrected grammatical, spelling, and recognitions errors present. Subjective Date/time seen: 04/11/24 12:09 Interval history: 68yo female with AFib s/p SHAYY cardioversion that was unsuccessful, KAREN not using CPAP, DM, HTN and endometrial cancer who presents with shortness of breath, leg swelling and weight gain over the past few weeks. Now in with respiratory failure secondary to pneumonia with septic shock. Intubated and on mechanical ventilation. RSV positive, acute kidney injury status post dialysis catheter and dialysis 04/07: A new Left IJ dialysis catheter was inserted 04/11/2023: Patient seen and examined the ICU remains intubated on CMV mode of ventilation, peep of 10, 40% FiO2. Sedated with Precedex infusion, opens her eyes, follows simple commands in all extremities. Afebrile, tube feeds on hold for tracheostomy this morning. Urine output has been adequate, afebrile Review of Systems Review of Systems: ROS unobtainable: Yes unobtainable due to endotracheal tube, unobtainable due to medical condition and unobtainable due to mental status Exam Narrative: General: Patient intubated on Precedex infusion, in no acute distress Lungs/Chest: Coarse breath sounds bilaterally, no wheezing, decreased air entry at bases Rt > Lt Cardiac: Irregularly irregular, heart rates in the 90s to 100s Circulation: Pedal pulses are intact and symmetrical. Abdomen: Normoactive bowel sounds bowel sounds. Morbidly Obese. Soft. NT. ND. Extremities: No clubbing, cyanosis, bilateral upper and lower extremity edema improving : Can in place Neurologic: Intubated on Precedex infusion, opens her eyes, follows simple command in all extremities, pupils equal and reactive to light Objective Data Vital Signs Vital Signs: Vital Signs - 24 hr 04/10/24 13:37 04/10/24 14:00 04/10/24 14:00 Temperature 98.5 F Pulse Rate 81 96 96 Respiratory Rate 24 H Blood Pressure 111/72 Pulse Oximetry 97 95 Oxygen Delivery Mechanical Ventilation Fraction of Inspired Oxygen 40 04/10/24 14:00 04/10/24 16:00 04/10/24 16:00 Temperature Pulse Rate 96 107 H Respiratory Rate 24 H 24 H Blood Pressure Pulse Oximetry Oxygen Delivery Mechanical Ventilation Fraction of Inspired Oxygen 60 04/10/24 16:00 04/10/24 16:00 04/10/24 16:00 Temperature 98.2 F Pulse Rate 97 92 Respiratory Rate 27 H Blood Pressure 126/77 Pulse Oximetry 91 Oxygen Delivery Fraction of Inspired Oxygen 40 04/10/24 17:05 04/10/24 17:22 04/10/24 18:00 Temperature Pulse Rate 100 94 85 Respiratory Rate Blood Pressure Pulse Oximetry 92 Oxygen Delivery Mechanical Ventilation Fraction of Inspired Oxygen 40 04/10/24 18:00 04/10/24 18:00 04/10/24 18:31 Temperature 98.2 F Pulse Rate 85 85 88 Respiratory Rate 27 H 27 H 24 H Blood Pressure 115/88 Pulse Oximetry 94 Oxygen Delivery Fraction of Inspired Oxygen 04/10/24 18:31 04/10/24 19:35 04/10/24 20:00 Temperature Pulse Rate 88 104 H 89 Respiratory Rate 24 H 24 H Blood Pressure Pulse Oximetry 100 Oxygen Delivery Mechanical Ventilation Fraction of Inspired Oxygen 40 04/10/24 20:00 04/10/24 20:00 04/10/24 20:00 Temperature 98.9 F Pulse Rate 89 Respiratory Rate 24 H Blood Pressure 118/79 Pulse Oximetry 99 Oxygen Delivery Mechanical Ventilation Fraction of Inspired Oxygen 40 40 04/10/24 20:00 04/10/24 22:00 04/10/24 22:00 Temperature 98.8 F Pulse Rate 79 110 H 110 H Respiratory Rate 22 H 22 H Blood Pressure 117/79 Pulse Oximetry 97 Oxygen Delivery Fraction of Inspired Oxygen 04/10/24 22:00 04/10/24 22:50 04/11/24 00:00 Temperature Pulse Rate 90 93 87 Respiratory Rate 25 H Blood Pressure Pulse Oximetry 91 Oxygen Delivery Mechanical Ventilation Fraction of Inspired Oxygen 40 04/11/24 00:00 04/11/24 00:00 04/11/24 00:00 Temperature 98.8 F Pulse Rate 90 Respiratory Rate 23 H Blood Pressure 123/81 Pulse Oximetry 91 Oxygen Delivery Mechanical Ventilation Fraction of Inspired Oxygen 40 40 04/11/24 00:00 04/11/24 00:51 04/11/24 00:56 Temperature Pulse Rate 89 110 H 114 H Respiratory Rate 29 H Blood Pressure Pulse Oximetry Oxygen Delivery Fraction of Inspired Oxygen 04/11/24 00:57 04/11/24 02:00 04/11/24 02:00 Temperature 99.5 F Pulse Rate 110 H 82 82 Respiratory Rate 29 H 24 H 24 H Blood Pressure 107/85 Pulse Oximetry 93 Oxygen Delivery Fraction of Inspired Oxygen 04/11/24 02:00 04/11/24 02:07 04/11/24 04:00 Temperature Pulse Rate 82 84 86 Respiratory Rate 24 H Blood Pressure Pulse Oximetry 93 Oxygen Delivery Mechanical Ventilation Fraction of Inspired Oxygen 40 04/11/24 04:00 04/11/24 04:00 04/11/24 04:00 Temperature 100.0 F H Pulse Rate 86 Respiratory Rate 24 H Blood Pressure 92/71 L Pulse Oximetry 92 Oxygen Delivery Mechanical Ventilation Fraction of Inspired Oxygen 40 40 04/11/24 04:00 04/11/24 04:35 04/11/24 05:30 Temperature Pulse Rate 79 80 80 Respiratory Rate Blood Pressure Pulse Oximetry 92 91 Oxygen Delivery Mechanical Ventilation Mechanical Ventilation Fraction of Inspired Oxygen 40 50 04/11/24 06:00 04/11/24 06:00 04/11/24 06:00 Temperature 99.6 F Pulse Rate 75 75 72 Respiratory Rate 24 H 24 H 24 H Blood Pressure 84/73 L Pulse Oximetry 95 Oxygen Delivery Fraction of Inspired Oxygen 04/11/24 06:00 04/11/24 06:32 04/11/24 08:00 Temperature 99.4 F Pulse Rate 72 78 72 Respiratory Rate 24 H Blood Pressure 94/72 L Pulse Oximetry 96 Oxygen Delivery Fraction of Inspired Oxygen 04/11/24 08:00 04/11/24 08:00 04/11/24 08:00 Temperature Pulse Rate 72 70 Respiratory Rate 21 H Blood Pressure Pulse Oximetry Oxygen Delivery Fraction of Inspired Oxygen 40 04/11/24 08:00 04/11/24 08:15 04/11/24 10:00 Temperature 99.0 F Pulse Rate 76 81 Respiratory Rate 20 Blood Pressure 99/67 L Pulse Oximetry 97 94 Oxygen Delivery Mechanical Ventilation Mechanical Ventilation Fraction of Inspired Oxygen 50 04/11/24 10:00 04/11/24 10:05 04/11/24 11:38 Temperature Pulse Rate 76 75 107 H Respiratory Rate 21 H 25 H Blood Pressure Pulse Oximetry Oxygen Delivery Fraction of Inspired Oxygen Intake/Output Intake/Output: Intake & Output 04/08/24 04/09/24 04/10/24 04/11/24 23:59 23:59 23:59 23:59 Intake Total 670.5 1531.1 1524.9 608.6 Output Total 900 3350 1000 1150 Balance -229.5 -1818.9 524.9 -541.4 Meds/Results Medications: Active Medications Generic Name Dose Route Start Last Admin Trade Name Freq PRN Reason Stop Dose Admin Acetaminophen 650 mg 03/27/24 14:41 04/10/24 11:41 Acetaminophen 325 Mg Tablet PO 650 mg Q4H PRN Administration Mild Pain (1-3) or Fever Alteplase, Recombinant 2 mg 04/06/24 03:11 04/06/24 03:22 Alteplase 2 Mg Vial (Cathflo) IV PUSH 2 mg ONCE PRN Administration Line Occlusion Amiodarone HCl 400 mg 04/01/24 10:40 04/03/24 08:31 Amiodarone Hcl 200 Mg Tablet PO 400 mg DAILY LAVERNE Administration Apixaban 5 mg 03/27/24 12:35 04/10/24 21:21 Apixaban 5 Mg Tablet PO Not Given Q12HR LAVERNE Bisacodyl 10 mg 04/10/24 02:20 04/10/24 06:21 Bisacodyl 10 Mg Suppository RECTAL 10 mg QAM PRN Administration Constipation Cyanocobalamin 1,000 mcg 03/27/24 17:00 04/11/24 09:29 Cyanocobalamin 1,000 Mcg Tablet PO Not Given BID LAVERNE Dextrose 12.5 gm 03/27/24 08:57 Dextrose 50% 25 Gm/50 Ml Syringe IV PUSH PRN PRN Hypoglycemia Protocol Docosanol 1 applic 04/09/24 09:00 04/11/24 11:48 Docosanol 10% Cream 2 Gm TOPICAL 1 applic 5 TIMES DAILY LAVERNE Administration Epoetin Marck-epbx 4,000 units 04/11/24 19:03 Epoetin Marck-Epbx 4,000 Units/Ml Vial IV PUSH 04/11/24 19:04 ONCE ONE Glucagon 1 mg 03/27/24 08:57 Glucagon For Inj 1 Mg Vial IM PRN PRN Hypoglycemia Protocol Glucose 15 gm 03/27/24 08:57 Glucose Oral Gel 15 Gm Of Glucse In 37.5 Gm Tube PO PRN PRN Hypoglycemia Protocol Dextrose 1,000 mls @ 100 mls/hr 03/27/24 08:57 Dextrose 5% 1,000 Ml IVPB PRN PRN Hypoglycemia Protocol Albumin Human 50 mls @ 999 mls/hr 04/03/24 09:19 04/07/24 15:05 Albutein IVPB 05/03/24 09:18 100 mls/hr Q10M PRN Administration HYPOTENSION Dexmedetomidine HCl 400 mcg in 100 mls @ 20.25 mls/hr 04/08/24 09:40 04/11/24 11:38 Precedex 400 Mcg/100 Ml IV CONT Infused .Q4H57M [facility] Titration Protocol 0.5 MCG/KG/HR Cefazolin Sodium 1 gm in 50 mls @ 100 mls/hr 04/12/24 11:30 Ancef 1 Gm/Ns 50 Ml IVPB 04/12/24 11:59 ONCE ONE Insulin Aspart 4 - 8 units 03/29/24 13:00 04/11/24 11:49 Insulin Aspart (*Bkc) 100 Units/Ml SUB-Q Not Given Q4HR [facility] Protocol Insulin Glargine 60 units 04/01/24 09:00 04/08/24 08:20 Insulin Glargine (*Bkc) 100 Units/Ml SUB-Q Not Given Q12HR [facility] Metoprolol Tartrate 12.5 mg 04/07/24 12:00 04/11/24 06:32 Metoprolol Tartrate 12.5 Mg Tablet PO 12.5 mg Q6HR LAVERNE Administration Multi-Ingred Cream/Lotion/Oil/Oint 1 applic 03/28/24 21:00 04/11/24 09:29 Mineral Oil/White Petrolatum Ointment EACH EYE 1 applic Q12HR LAVERNE Administration Pantoprazole Sodium 40 mg 03/29/24 09:00 04/11/24 09:29 Pantoprazole Sodium Iv 40 Mg Vial IV PUSH 40 mg DAILY LAVERNE Administration Polyethylene Glycol 17 gm 04/04/24 11:45 04/11/24 08:13 Polyethylene Glycol 3350 17 Gm Powd.Pack PO Not Given QAM LAVERNE Rosuvastatin Calcium 20 mg 03/28/24 09:00 03/31/24 09:28 Rosuvastatin 20 Mg Tablet PO Not Given DAILY LAVERNE Senna/Docusate Sodium 1 tab 04/07/24 21:00 04/10/24 21:14 Senna/Docusate Sodium Tablet PO Not Given HS LAVERNE Sodium Chloride 10 ml 03/28/24 22:00 04/11/24 07:38 Central Line Flush IV PUSH 10 ml Q8HR LAVERNE Administration Sodium Chloride 10 ml 03/28/24 16:14 Central Line Flush IV PUSH PRN PRN with TPN bag changes Sodium Chloride 20 ml 03/28/24 16:14 Central Line Flush IV PUSH PRN PRN after blood draws Radiology Results: ITS Impressions Chest CTA 03/27/24 06:41 Impression: No evidence of pulmonary embolus, aortic dissection, or aortic aneurysm. Extensive right lower lobe pneumonia. Probable mildly prominent reactive lymphadenopathy the right axilla and subcarinal region. Head CT 03/28/24 22:59 IMPRESSION: 1. Normal brain. Abdomen X-Ray 03/29/24 08:59 IMPRESSION: 1. Lines and tubes in expected positions. 2. Diffuse bilateral lung disease, right greater than left, consistent with multifocal pneumonia. Renal Ultrasound 03/31/24 15:34 IMPRESSION: No hydronephrosis. Perinephric fluid collection adjacent to the left lower pole. Abdomen Ultrasound 03/31/24 15:39 IMPRESSION: Status post cholecystectomy. Pancreas poorly visualized. Otherwise normal abdominal ultrasound findings. Chest X-Ray 04/11/24 07:21 Impression: Hazy right basilar airspace disease and possible focal lingular airspace disease. Correlate for pulmonary edema versus pneumonia. Support tubes, as above. Labs Labs: Laboratory Results - last 24 hr 04/10/24 04/10/24 04/10/24 12:45 17:18 20:38 WBC RBC Hgb Hct MCV MCH MCHC RDW Plt Count MPV Immature Gran % (Auto) Neut % (Auto) Lymph % (Auto) [place] % (Auto) Eos % (Auto) Baso % (Auto) Lymph # (Auto) [place] # (Auto) Eos # (Auto) Baso # (Auto) Abs Immat Gran (auto) Absolute Neuts (auto) Absolute Nucleated RBC Nucleated RBC % Puncture Site ABG pH ABG pCO2 ABG pO2 ABG PO2/FiO2 Ratio ABG HCO3 ABG O2 Saturation ABG O2 Content ABG Base Excess A-a Gradient Oxyhemoglobin Carboxyhemoglobin Methemoglobin Reduced Hemoglobin Total Hemoglobin O2 Delivery Device O2 Liters/Min Minute Volume Vent Rate Vent Mode FiO2 Tidal Volume PEEP Peak Inspir Pressure Pressure Support Sodium Potassium Chloride Carbon Dioxide Anion Gap BUN Creatinine Estim Creat Clear Calc Estimated GFR Glucose POC Capillary Glucose 200 H 228 H 215 H Calcium Phosphorus Magnesium Total Bilirubin AST ALT Alkaline Phosphatase Total Protein Albumin 04/11/24 04/11/24 04/11/24 00:44 04:04 04:11 WBC 11.6 H RBC 3.35 L Hgb 10.0 L Hct 31.2 L MCV 93.1 MCH 29.9 MCHC 32.1 RDW 16.7 H Plt Count 306 MPV 10.1 Immature Gran % (Auto) 0.5 Neut % (Auto) 92.5 H Lymph % (Auto) 2.9 L [place] % (Auto) 3.7 Eos % (Auto) 0.2 Baso % (Auto) 0.2 Lymph # (Auto) 0.33 L [place] # (Auto) 0.4 Eos # (Auto) 0.0 Baso # (Auto) 0.0 Abs Immat Gran (auto) 0.06 H Absolute Neuts (auto) 10.7 H Absolute Nucleated RBC 0.000 Nucleated RBC % 0.0 Puncture Site ABG pH ABG pCO2 ABG pO2 ABG PO2/FiO2 Ratio ABG HCO3 ABG O2 Saturation ABG O2 Content ABG Base Excess A-a Gradient Oxyhemoglobin Carboxyhemoglobin Methemoglobin Reduced Hemoglobin Total Hemoglobin O2 Delivery Device O2 Liters/Min Minute Volume Vent Rate Vent Mode FiO2 Tidal Volume PEEP Peak Inspir Pressure Pressure Support Sodium 139 Potassium 4.3 Chloride 105 Carbon Dioxide 24 Anion Gap 10 BUN 87 H D Creatinine 2.30 H Estim Creat Clear Calc 34 Estimated GFR 21 L Glucose 187 H POC Capillary Glucose 187 H 190 H Calcium 8.5 Phosphorus 5.3 H Magnesium 2.6 H Total Bilirubin 0.8 AST 51 H ALT 341 H Alkaline Phosphatase 127 H Total Protein 6.0 L Albumin 2.8 L 04/11/24 04/11/24 04/11/24 04:31 07:45 11:48 WBC RBC Hgb Hct MCV MCH MCHC RDW Plt Count MPV Immature Gran % (Auto) Neut % (Auto) Lymph % (Auto) [place] % (Auto) Eos % (Auto) Baso % (Auto) Lymph # (Auto) [place] # (Auto) Eos # (Auto) Baso # (Auto) Abs Immat Gran (auto) Absolute Neuts (auto) Absolute Nucleated RBC Nucleated RBC % Puncture Site Right radial ABG pH 7.474 H ABG pCO2 33.2 L ABG pO2 66.8 L ABG PO2/FiO2 Ratio 1.67 ABG HCO3 23.8 ABG O2 Saturation 94.6 L ABG O2 Content 16.3 ABG Base Excess 0.8 A-a Gradient 180.2 Oxyhemoglobin 92.6 Carboxyhemoglobin 0.5 Methemoglobin 0.3 Reduced Hemoglobin 6.6 H Total Hemoglobin 12.5 O2 Delivery Device Ventilator O2 Liters/Min Not Reportable Minute Volume Not Reportable Vent Rate 24 Vent Mode Cmv FiO2 40 Tidal Volume 400 PEEP 10 Peak Inspir Pressure Not Reportable Pressure Support Not Reportable Sodium Potassium Chloride Carbon Dioxide Anion Gap BUN Creatinine Estim Creat Clear Calc Estimated GFR Glucose POC Capillary Glucose 181 H 167 H Calcium Phosphorus Magnesium Total Bilirubin AST ALT Alkaline Phosphatase Total Protein Albumin Quality VTE Prophylaxis VTE prophylaxis: pharmacologic ordered
[2024-04-11] MEDS: EPOETIN ALFA-EPBX 4,000 UNITS/ML VIAL 4000 UNITS IV PUSH (14:40)
[2024-04-11] MEDS: SODIUM CHLORIDE 0.9% IV 1,000 ML 999 ML IV CONT (14:41)
--- NOTE | 2024-04-11 15:25 | P.PNNP_ITS ---
Progress Note: A&P Assessment and Plan (1) VINCENT (acute kidney injury): Code(s): N17.9 - Acute kidney failure, unspecified Status: Acute Assessment and Plan: * as noted by trend of labs since admission * normal creatinine at baseline and on admission * multifactorial etiology: * hemodynamic instability/shock * infection/sepsis (pneumonia + RSV) * ARB + HCTZ use prior to admission * contrast (CTA of chest on 03/27) * hypoxia * afib with RVR * prerenal factors (?) * evaluation to date noted: * renal ultrasound without hydro * urine electrolytes prerenal * urine eosinophils negative * CPK normal * initiated on [employer]/dialysis on 04/02 * s/p IV diuretics on 04/05 and 04/08-- reasonable UOP but rise in BUN + creatinine noted * HD today and probably continue M/W/F schedule for now * making urine but BUN/creatinine continues to rise w/o dialytic support * consult Surgery for tunneled HD catheter placement * follow trend of repeat labs and UOP to assess for renal recovery (2) Acute hypoxic respiratory failure: Code(s): J96.01 - Acute respiratory failure with hypoxia Status: Acute Assessment and Plan: * seconeary to pneumonia, RSV, and possible CHF * CTA of chest noted: * no evidence of pulmonary embolus, aortic dissection, or aortic aneurysm * extensive right lower lobe pneumonia * probable mildly prominent reactive lymphadenopathy the right axilla and subcarinal region * emergently intubated 03/28 * completed course of steroids * follow respiratory status * s/p t racheostomy (on 04/11) for prolonged ventilator weaning * weaning as tolerated (3) Septic shock: Code(s): A41.9 - Sepsis, unspecified organism; R65.21 - Severe sepsis with septic shock Status: Acute Assessment and Plan: * resolved * secondary to extensive pneumonia +/- RSV * completed course antibiotics * cultures negative to date * off pressors currently (4) Atrial fibrillation with RVR: Code(s): I48.91 - Unspecified atrial fibrillation Status: Acute Assessment and Plan: * rate control strategy * on Eliquis * Echo results noted * Cardiology following (5) Anemia: Code(s): D64.9 - Anemia, unspecified Status: Acute Assessment and Plan: * likely a manifestation of VINCENT and acute illness * on DANG with dialysis * follow trend of H/H (6) Community acquired pneumonia: Code(s): J18.9 - Pneumonia, unspecified organism Status: Acute Assessment and Plan: * as noted by admission imaging * culture data noted (negative to date) * completed course of antibiotics (7) Elevated liver enzymes: Code(s): R74.8 - Abnormal levels of other serum enzymes Status: Acute Assessment and Plan: * thought to be secondary to shock liver * statin on hold * liver enzymes fluctuating * follow trend (8) Diabetes: Code(s): E11.9 - Type 2 diabetes mellitus without complications Status: Chronic Assessment and Plan: * follow accu-cheks * glycemic control per hospitalist/packing clerk Will continue to follow. L Subjective Date/time seen: 04/11/24 15:25 Interval history: Follow-up for acute kidney injury/acute renal failure. Status tracheostomy earlier today (tolerated this procedure fairly well) and tolerating dialysis treatment at the time of my visit (seen on HD at 3:15PM); no issues/events overnight or earlier this morning; continues to make reasonable urine output but BUN & creatinine continue to rise without dialytic support; remains on ventilator support currently. Exam 2 Narrative: General: elderly but WD/WN female trached/sedated and on mechanical ventilation Heart: IRRR, normal S1 and S2; no rub Lungs: coarse breath sounds; few crackles at bases Abdomen: soft, nontender, nondistended, positive bowel sounds Extremities: no cyanosis or clubbing; trace edema Skin: no rash Objective Data Vital Signs Vital Signs: Vital Signs Temp Pulse Resp BP Pulse Ox O2 Del Method FiO2 04/11/24 15:15 102 H 92/76 L 04/11/24 15:00 94 110/84 04/11/24 14:45 101 H 102/75 04/11/24 14:30 102 H 101/65 04/11/24 14:29 96 92 Mechanical Ventilation 50 04/11/24 14:15 95 114/66 04/11/24 14:00 100 04/11/24 14:00 91 21 H 04/11/24 14:00 97.7 F 85 21 H 119/81 94 04/11/24 14:00 93 119/81 04/11/24 13:51 50 04/11/24 13:43 79 122/93 H 04/11/24 13:30 97.6 F 84 21 H 130/92 H 96 04/11/24 12:55 83 22 H 04/11/24 12:55 83 22 H 04/11/24 12:13 87 04/11/24 12:00 40 04/11/24 12:00 119 H 04/11/24 12:00 92 Mechanical Ventilation 40 04/11/24 12:00 97.8 F 97 24 H 136/82 94 04/11/24 11:55 94 94 Mechanical Ventilation 50 04/11/24 11:50 110 H 24 H 04/11/24 10:30 80 22 H 04/11/24 10:05 75 21 H 04/11/24 10:00 76 04/11/24 10:00 99.0 F 81 20 99/67 L 94 04/11/24 08:15 76 97 Mechanical Ventilation 50 04/11/24 08:00 Mechanical Ventilation 04/11/24 08:00 40 04/11/24 08:00 70 21 H 04/11/24 08:00 72 04/11/24 08:00 99.4 F 72 24 H 94/72 L 96 04/11/24 06:32 78 04/11/24 06:00 72 04/11/24 06:00 99.6 F 72 24 H 84/73 L 95 04/11/24 06:00 75 24 H 04/11/24 06:00 75 24 H 04/11/24 05:30 80 91 Mechanical Ventilation 50 04/11/24 04:35 80 92 Mechanical Ventilation 40 04/11/24 04:00 79 04/11/24 04:00 100.0 F H 86 24 H 92/71 L 92 04/11/24 04:00 40 04/11/24 04:00 Mechanical Ventilation 40 04/11/24 04:00 86 24 H 04/11/24 02:07 84 93 Mechanical Ventilation 40 04/11/24 02:00 82 04/11/24 02:00 99.5 F 82 24 H 107/85 93 04/11/24 02:00 82 24 H 04/11/24 00:57 110 H 29 H 04/11/24 00:56 114 H 04/11/24 00:51 110 H 29 H 04/11/24 00:00 89 04/11/24 00:00 98.8 F 90 23 H 123/81 91 04/11/24 00:00 40 04/11/24 00:00 Mechanical Ventilation 40 04/11/24 00:00 87 25 H 04/10/24 22:50 93 91 Mechanical Ventilation 40 04/10/24 22:00 90 04/10/24 22:00 110 H 22 H 04/10/24 22:00 98.8 F 110 H 22 H 117/79 97 Intake/Output Intake/Output: Intake & Output 04/08/24 04/09/24 04/10/24 04/11/24 23:59 23:59 23:59 23:59 Intake Total 670.5 1531.1 1524.9 706.7 Output Total 900 3350 1000 3600 Balance -229.5 -1818.9 524.9 -2893.3 Meds/Results Medications: Active Medications Generic Name Dose Route Start Last Admin Trade Name Freq PRN Reason Stop Dose Admin Acetaminophen 650 mg 03/27/24 14:41 04/10/24 11:41 Acetaminophen 325 Mg Tablet PO 650 mg Q4H PRN Administration Mild Pain (1-3) or Fever Alteplase, Recombinant 2 mg 04/06/24 03:11 04/06/24 03:22 Alteplase 2 Mg Vial (Cathflo) IV PUSH 2 mg ONCE PRN Administration Line Occlusion Amiodarone HCl 400 mg 04/01/24 10:40 04/03/24 08:31 Amiodarone Hcl 200 Mg Tablet PO 400 mg DAILY [facility] Administration Apixaban 5 mg 03/27/24 12:35 04/10/24 21:21 Apixaban 5 Mg Tablet PO Not Given Q12HR [facility] Bisacodyl 10 mg 04/10/24 02:20 04/10/24 06:21 Bisacodyl 10 Mg Suppository RECTAL 10 mg QAM PRN Administration Constipation Cyanocobalamin 1,000 mcg 03/27/24 17:00 04/11/24 18:50 Cyanocobalamin 1,000 Mcg Tablet PO Not Given BID [facility] Dextrose 12.5 gm 03/27/24 08:57 Dextrose 50% 25 Gm/50 Ml Syringe IV PUSH PRN PRN Hypoglycemia Protocol Docosanol 1 applic 04/09/24 09:00 04/11/24 18:51 Docosanol 10% Cream 2 Gm TOPICAL 1 applic 5 TIMES DAILY [facility] Administration Glucagon 1 mg 03/27/24 08:57 Glucagon For Inj 1 Mg Vial IM PRN PRN Hypoglycemia Protocol Glucose 15 gm 03/27/24 08:57 Glucose Oral Gel 15 Gm Of Glucse In 37.5 Gm Tube PO PRN PRN Hypoglycemia Protocol Dextrose 1,000 mls @ 100 mls/hr 03/27/24 08:57 Dextrose 5% 1,000 Ml IVPB PRN PRN Hypoglycemia Protocol Albumin Human 50 mls @ 999 mls/hr 04/03/24 09:19 04/07/24 15:05 Albutein IVPB 05/03/24 09:18 100 mls/hr Q10M PRN Administration HYPOTENSION Dexmedetomidine HCl 400 mcg in 100 mls @ 20.25 mls/hr 04/08/24 09:40 04/11/24 17:43 Precedex 400 Mcg/100 Ml IV CONT 0.5 mcg/kg/hr .Q4H57M [facility] 20.25 mls/hr Administration Protocol 0.5 MCG/KG/HR Cefazolin Sodium 1 gm in 50 mls @ 100 mls/hr 04/12/24 11:30 Ancef 1 Gm/Ns 50 Ml IVPB 04/12/24 11:59 ONCE ONE Norepinephrine Bitartrate 8 mg in 250 mls @ 9.375 mls/hr 04/11/24 16:50 04/11/24 16:57 Levophed 8 Mg/D5w 250 Ml IV CONT 5 mcg/min .Q24H [facility] 9.38 mls/hr Administration Protocol 5 MCG/MIN Insulin Aspart 4 - 8 units 03/29/24 13:00 04/11/24 18:51 Insulin Aspart (*Bkc) 100 Units/Ml SUB-Q Not Given Q4HR [facility] Protocol Insulin Glargine 60 units 04/01/24 09:00 04/08/24 08:20 Insulin Glargine (*Bkc) 100 Units/Ml SUB-Q Not Given Q12HR [facility] Metoprolol Tartrate 12.5 mg 04/07/24 12:00 04/11/24 12:13 Metoprolol Tartrate 12.5 Mg Tablet PO Not Given Q6HR [facility] Metoprolol Tartrate 5 mg 04/12/24 00:00 Metoprolol Tartrate Inj 5 Mg/5 Ml Vial IV PUSH Q6HR [facility] Midazolam HCl 2 mg 04/11/24 16:46 04/11/24 16:57 Midazolam Hcl (*Crx) 2 Mg/2 Ml Vial IV PUSH 2 mg Q2H PRN Administration Ventilator Asynchrony Multi-Ingred Cream/Lotion/Oil/Oint 1 applic 03/28/24 21:00 04/11/24 09:29 Mineral Oil/White Petrolatum Ointment EACH EYE 1 applic Q12HR [facility] Administration Pantoprazole Sodium 40 mg 03/29/24 09:00 04/11/24 09:29 Pantoprazole Sodium Iv 40 Mg Vial IV PUSH 40 mg DAILY [facility] Administration Polyethylene Glycol 17 gm 04/04/24 11:45 04/11/24 08:13 Polyethylene Glycol 3350 17 Gm Powd.Pack PO Not Given QAM [facility] Rosuvastatin Calcium 20 mg 03/28/24 09:00 03/31/24 09:28 Rosuvastatin 20 Mg Tablet PO Not Given DAILY [facility] Senna/Docusate Sodium 1 tab 04/07/24 21:00 04/10/24 21:14 Senna/Docusate Sodium Tablet PO Not Given HS [facility] Sodium Chloride 10 ml 03/28/24 22:00 04/11/24 14:00 Central Line Flush IV PUSH 10 ml Q8HR [facility] Administration Sodium Chloride 10 ml 03/28/24 16:14 Central Line Flush IV PUSH PRN PRN with TPN bag changes Sodium Chloride 20 ml 03/28/24 16:14 Central Line Flush IV PUSH PRN PRN after blood draws Radiology Results: ITS Impressions Chest CTA 03/27/24 06:41 Impression: No evidence of pulmonary embolus, aortic dissection, or aortic aneurysm. Extensive right lower lobe pneumonia. Probable mildly prominent reactive lymphadenopathy the right axilla and subcarinal region. Head CT 03/28/24 22:59 IMPRESSION: 1. Normal brain. Abdomen X-Ray 03/29/24 08:59 IMPRESSION: 1. Lines and tubes in expected positions. 2. Diffuse bilateral lung disease, right greater than left, consistent with multifocal pneumonia. Renal Ultrasound 03/31/24 15:34 IMPRESSION: No hydronephrosis. Perinephric fluid collection adjacent to the left lower pole. Abdomen Ultrasound 03/31/24 15:39 IMPRESSION: Status post cholecystectomy. Pancreas poorly visualized. Otherwise normal abdominal ultrasound findings. Chest X-Ray 04/11/24 07:21 Impression: Hazy right basilar airspace disease and possible focal lingular airspace disease. Correlate for pulmonary edema versus pneumonia. Support tubes, as above. Labs Labs: Laboratory Tests 04/11/24 04:11 04/11/24 04:11 Calcium 8.5 Phosphorus 5.3 H Magnesium 2.6 H Total Bilirubin 0.8 AST 51 H ALT 341 H Alkaline Phosphatase 127 H Total Protein 6.0 L Albumin 2.8 L
[2024-04-11 15:59] LABS: Glucose Point of Care 133 mg/dl (65-105)
[2024-04-11] MEDS: MIDAZOLAM HCL (*CRX) 2 MG/2 ML VIAL IV PUSH ×2 (16:57→22:02)
[2024-04-11] MEDS: NOREPINEPHRINE 8 MG/D5W 250 ML 8 MG/250 ML BAG 9.38 MG IV CONT (16:57)
[2024-04-11 20:19] LABS: Glucose Point of Care 158 mg/dl (65-105)
--- NOTE | 2024-04-11 20:37 | PC.NURSE ---
Call placed to Dr. Hill regarding patient elevated heart rate and metoprolol po being on hold. Order received for 5 mg metoprolol IVP Q6.
[2024-04-12] VITALS (31 sets, daily range): BP systolic 89–138; BP diastolic 58–107; PULSE 67–135; RESP 13–24; TEMP 37–38.1; O2SAT 95–100
[2024-04-12 00:40] LABS: Glucose Point of Care 167 mg/dl (65-105)
[2024-04-12] MEDS: dexmedeTOMIDine 400 MCG/100 ML 400 MCG/100 ML BAG 20.25 MCG IV CONT (04:00)
[2024-04-12 04:29] LABS: Basophils Percent Auto 0.2 % (0.2-1.2); Hematocrit 32.1 % (37.0-47.0); Immature Granulocyte Absolute 0.04 K/mm3 (0.00-0.031); Immature Granulocyte Percent A 0.4 % (0-0.5); Lymphocytes Percent Auto 4.4 % (18.3-44.2); Mean Corpuscular HGB Conc 31.2 g/dl (32-36); Mean Corpuscular Hemoglobin 29.4 pg (26-34); Mean Corpuscular Volume 94.4 fl (80-100); Mean Platelet Volume 9.9 fl (7.4-10.4); Monocytes Absolute Auto 0.4 K/mm3 (0.1-0.6); Monocytes Percent Auto 3.2 % (2.6-8.5); Neutrophils Absolute Auto 10.5 K/mm3 (1.3-6.7); Neutrophils Percent Auto 91.8 % (45.5-73.1); Platelet Count Result 339 k/mm3 (150-375); White Blood Count 11.4 K/mm3 (4.5-10.0)
[2024-04-12 04:34] LABS: Alanine Aminotransferase 226 U/L (6-35); Alkaline Phosphatase 128 U/L (38-126); Anion Gap 11 mmol/L (4-12); Aspartate Amino Transferase 18 U/L (14-36); Bilirubin,Total 1.1 mg/dL (0.2-1.3); Blood Urea Nitrogen 56 mg/dL (7-17); Calcium 8.7 mg/dL (8.4-10.2); Carbon Dioxide 23 mmol/L (22-30); Chloride 105 mmol/L (98-107); Estimated CRCL calculation 34 ml/min; Estimated Glomerular Filt Rate 21; Glucose 182 mg/dL (65-110); Magnesium 2.4 mg/dL (1.6-2.3); Phosphorus 5.4 mg/dL (2.5-4.5); Potassium 4.2 mmol/L (3.4-5.0); Sodium 139 mmol/L (137-145)
[2024-04-12 05:26] LABS: Base Excess ABG -1.8 mEq/l (+/-2.0); Carboxyhemoglobin 0.3 % THb (0-2.0); Device VENTILATOR; Fractional Inspired Oxygen 35 %; HCO3 ABG 21.3 mEq/l (22.0-26.0); Methemoglobin ABG 0.3 %THb (0-1.5); Modified Allen's Test Unable to perform; Oxygen Saturation ABG 96.1 % (95.0-100.0); Oxyhemoglobin 94.3 % THb (90.0-100.0); PCO2 ABG 30.5 mmHg (35.0-45.0); PO2 ABG 76.1 mmHg (80.0-100.0); PO2 FiO2 Ratio Arterial Blood 2.17 %; Reduced Hemoglobin 5.1 %THb (0-5.0); Site Drawn RIGHT RADIAL; Total Hemoglobin 10.5 g/dL (12.0-18.0); pH ABG 7.461 (7.350-7.450)
[2024-04-12 05:27] LABS: Arterial Blood Gas PEEP 10 cmH2O; Arterial Blood Gas Tidal Volume 400 ml; Arterial Blood Gas Vent Mode CMV; Arterial Blood Gas Ventilator rate 20 /MIN
[2024-04-12] MEDS: CENTRAL LINE FLUSH 10 ML IV PUSH ×3 (06:14→20:07)
[2024-04-12 07:48] LABS: Glucose Point of Care 160 mg/dl (65-105)
[2024-04-12] MEDS: PANTOPRAZOLE SODIUM IV 40 MG VIAL IV PUSH (08:41)
[2024-04-12] MEDS: DOCOSANOL 10% CREAM 2 GM 1 APPLIC TOPICAL ×3 (08:42→20:05)
[2024-04-12] MEDS: dexmedeTOMIDine 400 MCG/100 ML 400 MCG/100 ML BAG 16.2 MCG IV CONT (09:08)
--- NOTE | 2024-04-12 09:50 | P.PNNP_ITS ---
Progress Note: A&P Assessment and Plan (1) VINCENT (acute kidney injury): Code(s): N17.9 - Acute kidney failure, unspecified Status: Acute Assessment and Plan: * as noted by trend of labs since admission * normal creatinine at baseline and on admission * multifactorial etiology: * hemodynamic instability/shock * infection/sepsis (pneumonia + RSV) * ARB + HCTZ use prior to admission * contrast (CTA of chest on 03/27) * hypoxia * afib with RVR * prerenal factors (?) * evaluation to date noted: * renal ultrasound without hydro * urine electrolytes prerenal * urine eosinophils negative * CPK normal * initiated on [employer]/dialysis on 04/02/24 * HD tomorrow and continue M/W/F schedule for now * making urine but BUN/creatinine continues to rise w/o dialytic support (and still with pulmonary edema on CXR) * Surgery consulted for tunneled HD catheter placement * follow trend of repeat labs and UOP to assess for renal recovery (2) Acute hypoxic respiratory failure: Code(s): J96.01 - Acute respiratory failure with hypoxia Status: Acute Assessment and Plan: * seconeary to pneumonia, RSV, and possible CHF * CTA of chest noted: * no evidence of pulmonary embolus, aortic dissection, or aortic aneurysm * extensive right lower lobe pneumonia * probable mildly prominent reactive lymphadenopathy the right axilla and subcarinal region * emergently intubated 03/28 * completed course of steroids * follow respiratory status * s/p tracheostomy (on 04/11) for prolonged ventilator weaning * weaning as tolerated (3) Septic shock: Code(s): A41.9 - Sepsis, unspecified organism; R65.21 - Severe sepsis with septic shock Status: Acute Assessment and Plan: * resolved * secondary to extensive pneumonia +/- RSV * completed course antibiotics * cultures negative to date * off pressors currently (4) Atrial fibrillation with RVR: Code(s): I48.91 - Unspecified atrial fibrillation Status: Acute Assessment and Plan: * rate control strategy * on Eliquis * Echo results noted * Cardiology following (5) Anemia: Code(s): D64.9 - Anemia, unspecified Status: Acute Assessment and Plan: * likely a manifestation of VINCENT and acute illness * on DANG with dialysis * follow trend of H/H (6) Community acquired pneumonia: Code(s): J18.9 - Pneumonia, unspecified organism Status: Acute Assessment and Plan: * as noted by admission imaging * culture data noted (negative to date) * completed course of antibiotics (7) Elevated liver enzymes: Code(s): R74.8 - Abnormal levels of other serum enzymes Status: Acute Assessment and Plan: * thought to be secondary to shock liver * statin on hold * liver enzymes fluctuating * follow trend (8) Diabetes: Code(s): E11.9 - Type 2 diabetes mellitus without complications Status: Chronic Assessment and Plan: * follow accu-cheks * glycemic control per hospitalist/dietitian research Will continue to follow. L Subjective Date/time seen: 04/12/24 09:50 Interval history: Follow-up for acute kidney injury/acute renal failure. S/P tracheostomy and hemodialysis yesterday without any issues or problems; remains on ventilator support via tracheostomy; urine output seems to fluctuate but still present; no other issues/events overnight or earlier this morning; no apparent distress noted. Exam 2 Narrative: General: elderly but WD/WN female trached/sedated and on mechanical ventilation Heart: IRRR, normal S1 and S2; no rub Lungs: coarse breath sounds; few crackles at bases Abdomen: soft, nontender, nondistended, positive bowel sounds Extremities: no cyanosis or clubbing; trace edema Skin: no nodules Objective Data Vital Signs Vital Signs: Vital Signs Temp Pulse Resp BP Pulse Ox O2 Del Method FiO2 04/12/24 09:27 99.2 F 75 16 106/72 99 04/12/24 09:08 69 17 04/12/24 09:08 69 17 04/12/24 08:39 76 99 Mechanical Ventilation 35 04/12/24 08:25 73 109/79 04/12/24 08:00 69 22 H 04/12/24 08:00 99.3 F 75 22 H 108/73 99 04/12/24 08:00 69 108/73 04/12/24 06:42 82 21 H 04/12/24 06:14 67 04/12/24 06:00 76 04/12/24 06:00 99.6 F 78 23 H 97/72 L 98 04/12/24 06:00 78 97/72 L 04/12/24 06:00 78 23 H 04/12/24 05:13 70 97 Mechanical Ventilation 35 04/12/24 04:15 80 101/64 04/12/24 04:00 73 04/12/24 04:00 99.7 F H 76 20 107/77 98 04/12/24 04:00 76 107/77 04/12/24 04:00 76 20 04/12/24 04:00 76 20 04/12/24 03:45 35 04/12/24 03:37 Mechanical Ventilation 35 04/12/24 02:15 80 96/68 L 04/12/24 02:02 76 97 Mechanical Ventilation 35 04/12/24 02:00 79 04/12/24 02:00 99.9 F H 79 24 H 104/73 96 04/12/24 02:00 79 104/73 04/12/24 02:00 79 24 H 04/12/24 00:00 89 04/12/24 00:00 35 04/12/24 00:00 Mechanical Ventilation 35 04/12/24 00:00 100.5 F H 86 21 H 89/63 L 99 04/12/24 00:00 86 21 H 04/12/24 00:00 86 89/63 L 04/11/24 23:11 76 100 Mechanical Ventilation 40 04/11/24 22:40 88 23 H 04/11/24 22:40 88 23 H 04/11/24 22:30 92 82/59 L 04/11/24 22:15 109 H 76/45 L 04/11/24 22:00 100.7 F H 111 H 27 H 95/83 L 97 04/11/24 22:00 111 H 04/11/24 22:00 111 H 95/83 L 04/11/24 22:00 111 H 27 H 04/11/24 21:45 108 H 90/57 L 04/11/24 21:30 97 114/85 04/11/24 21:15 97 113/83 04/11/24 20:02 97 98 Mechanical Ventilation 50 04/11/24 20:00 100.7 F H 134 H 26 H 117/78 97 04/11/24 20:00 138 H 04/11/24 20:00 Mechanical Ventilation 50 04/11/24 20:00 50 04/11/24 20:00 134 H 117/78 04/11/24 20:00 134 H 26 H 04/11/24 18:00 92 04/11/24 18:00 100.0 F H 84 24 H 116/89 96 04/11/24 17:43 93 21 H 04/11/24 17:43 93 21 H 04/11/24 17:37 99.9 F H 94 22 H 113/87 93 04/11/24 17:15 97 90/80 L 04/11/24 17:00 115 H 88/72 L 04/11/24 17:00 100 92 Mechanical Ventilation 50 04/11/24 16:58 104 H 29 H 04/11/24 16:57 98 92/67 L 04/11/24 16:45 95 28 H 04/11/24 16:45 92 92/67 L 04/11/24 16:30 93 95/71 L 04/11/24 16:15 116 H 92/64 L 04/11/24 16:00 Mechanical Ventilation 04/11/24 16:00 109 H 04/11/24 16:00 50 04/11/24 16:00 99.3 F 95 23 H 91/76 L 93 04/11/24 16:00 122 H 91/76 L 04/11/24 15:45 102 H 103/58 L 04/11/24 15:30 108 H 92/72 L 04/11/24 15:15 102 H 92/76 L 04/11/24 15:00 94 110/84 04/11/24 14:45 101 H 102/75 04/11/24 14:30 102 H 101/65 04/11/24 14:29 96 92 Mechanical Ventilation 50 04/11/24 14:15 95 114/66 04/11/24 14:00 100 04/11/24 14:00 91 21 H 04/11/24 14:00 97.7 F 85 21 H 119/81 94 04/11/24 14:00 93 119/81 04/11/24 13:51 50 04/11/24 13:43 79 122/93 H 04/11/24 13:30 97.6 F 84 21 H 130/92 H 96 04/11/24 12:55 83 22 H 04/11/24 12:55 83 22 H 04/11/24 12:13 87 04/11/24 12:00 40 04/11/24 12:00 119 H 04/11/24 12:00 92 Mechanical Ventilation 40 04/11/24 12:00 97.8 F 97 24 H 136/82 94 04/11/24 11:55 94 94 Mechanical Ventilation 50 04/11/24 11:50 110 H 24 H Intake/Output Intake/Output: Intake & Output 04/09/24 04/10/24 04/11/24 04/12/24 23:59 23:59 23:59 23:59 Intake Total 1531.1 1524.9 855.4 286.8 Output Total 3350 1000 3600 225 Balance -1818.9 524.9 -2744.6 61.8 Meds/Results Medications: Active Medications Generic Name Dose Route Start Last Admin Trade Name Freq PRN Reason Stop Dose Admin Acetaminophen 650 mg 03/27/24 14:41 04/10/24 11:41 Acetaminophen 325 Mg Tablet PO 650 mg Q4H PRN Administration Mild Pain (1-3) or Fever Alteplase, Recombinant 2 mg 04/06/24 03:11 04/06/24 03:22 Alteplase 2 Mg Vial (Cathflo) IV PUSH 2 mg ONCE PRN Administration Line Occlusion Amiodarone HCl 400 mg 04/01/24 10:40 04/03/24 08:31 Amiodarone Hcl 200 Mg Tablet PO 400 mg DAILY [facility] Administration Apixaban 5 mg 03/27/24 12:35 04/10/24 21:21 Apixaban 5 Mg Tablet PO Not Given Q12HR [facility] Bisacodyl 10 mg 04/10/24 02:20 04/10/24 06:21 Bisacodyl 10 Mg Suppository RECTAL 10 mg QAM PRN Administration Constipation Cyanocobalamin 1,000 mcg 03/27/24 17:00 04/12/24 08:41 Cyanocobalamin 1,000 Mcg Tablet PO Not Given BID [facility] Dextrose 12.5 gm 03/27/24 08:57 Dextrose 50% 25 Gm/50 Ml Syringe IV PUSH PRN PRN Hypoglycemia Protocol Docosanol 1 applic 04/09/24 09:00 04/12/24 08:42 Docosanol 10% Cream 2 Gm TOPICAL 1 applic 5 TIMES DAILY [facility] Administration Glucagon 1 mg 03/27/24 08:57 Glucagon For Inj 1 Mg Vial IM PRN PRN Hypoglycemia Protocol Glucose 15 gm 03/27/24 08:57 Glucose Oral Gel 15 Gm Of Glucse In 37.5 Gm Tube PO PRN PRN Hypoglycemia Protocol Dextrose 1,000 mls @ 100 mls/hr 03/27/24 08:57 Dextrose 5% 1,000 Ml IVPB PRN PRN Hypoglycemia Protocol Albumin Human 50 mls @ 999 mls/hr 04/03/24 09:19 04/07/24 15:05 Albutein IVPB 05/03/24 09:18 100 mls/hr Q10M PRN Administration HYPOTENSION Dexmedetomidine HCl 400 mcg in 100 mls @ 8.1 mls/hr 04/08/24 09:40 04/12/24 10:02 Precedex 400 Mcg/100 Ml IV CONT 0.2 mcg/kg/hr .[id number] [facility] 8.1 mls/hr Titration Protocol 0.2 MCG/KG/HR Cefazolin Sodium 1 gm in 50 mls @ 100 mls/hr 04/12/24 11:30 Ancef 1 Gm/Ns 50 Ml IVPB 04/12/24 11:59 ONCE ONE Norepinephrine Bitartrate 8 mg in 250 mls @ 0 mls/hr 04/11/24 16:50 04/12/24 10:49 Levophed 8 Mg/D5w 250 Ml IV CONT 0 mcg/min .Q0M [facility] 0 mls/hr Titration Protocol Insulin Aspart 4 - 8 units 03/29/24 13:00 04/12/24 08:41 Insulin Aspart (*Bkc) 100 Units/Ml SUB-Q Not Given Q4HR [facility] Protocol Insulin Glargine 60 units 04/01/24 09:00 04/08/24 08:20 Insulin Glargine (*Bkc) 100 Units/Ml SUB-Q Not Given Q12HR [facility] Metoprolol Tartrate 12.5 mg 04/07/24 12:00 04/11/24 12:13 Metoprolol Tartrate 12.5 Mg Tablet PO Not Given Q6HR [facility] Metoprolol Tartrate 5 mg 04/12/24 00:00 04/12/24 06:14 Metoprolol Tartrate Inj 5 Mg/5 Ml Vial IV PUSH Not Given Q6HR [facility] Midazolam HCl 2 mg 04/11/24 16:46 04/11/24 22:02 Midazolam Hcl (*Crx) 2 Mg/2 Ml Vial IV PUSH 2 mg Q2H PRN Administration Ventilator Asynchrony Multi-Ingred Cream/Lotion/Oil/Oint 1 applic 03/28/24 21:00 04/12/24 08:42 Mineral Oil/White Petrolatum Ointment EACH EYE Not Given Q12HR [facility] Pantoprazole Sodium 40 mg 03/29/24 09:00 04/12/24 08:41 Pantoprazole Sodium Iv 40 Mg Vial IV PUSH 40 mg DAILY [facility] Administration Polyethylene Glycol 17 gm 04/12/24 07:50 Polyethylene Glycol 3350 17 Gm Powd.Pack PO QAM PRN Constipation Rosuvastatin Calcium 20 mg 03/28/24 09:00 03/31/24 09:28 Rosuvastatin 20 Mg Tablet PO Not Given DAILY [facility] Senna/Docusate Sodium 1 tab 04/07/24 21:00 04/11/24 21:47 Senna/Docusate Sodium Tablet PO Not Given HS [facility] Sodium Chloride 10 ml 03/28/24 22:00 04/12/24 06:14 Central Line Flush IV PUSH 10 ml Q8HR [facility] Administration Sodium Chloride 10 ml 03/28/24 16:14 Central Line Flush IV PUSH PRN PRN with TPN bag changes Sodium Chloride 20 ml 03/28/24 16:14 Central Line Flush IV PUSH PRN PRN after blood draws Radiology Results: ITS Impressions Chest CTA 03/27/24 06:41 Impression: No evidence of pulmonary embolus, aortic dissection, or aortic aneurysm. Extensive right lower lobe pneumonia. Probable mildly prominent reactive lymphadenopathy the right axilla and subcarinal region. Head CT 03/28/24 22:59 IMPRESSION: 1. Normal brain. Abdomen X-Ray 03/29/24 08:59 IMPRESSION: 1. Lines and tubes in expected positions. 2. Diffuse bilateral lung disease, right greater than left, consistent with multifocal pneumonia. Renal Ultrasound 03/31/24 15:34 IMPRESSION: No hydronephrosis. Perinephric fluid collection adjacent to the left lower pole. Abdomen Ultrasound 03/31/24 15:39 IMPRESSION: Status post cholecystectomy. Pancreas poorly visualized. Otherwise normal abdominal ultrasound findings. Chest X-Ray 04/12/24 06:39 Impression: Central congestive change and probable mild bibasilar pulmonary edema. Correlate clinically for pneumonia. Support tubes, as above. Labs Labs: Laboratory Tests 04/12/24 04:01 04/12/24 04:01 Calcium 8.7 Phosphorus 5.4 H Magnesium 2.4 H Total Bilirubin 1.1 AST 18 ALT 226 H Alkaline Phosphatase 128 H Total Protein 6.0 L Albumin 3.0 L
--- NOTE | 2024-04-12 11:22 | PCNFU ---
Nutrition Follow-Up Complete: Suboptimal Energy Intake as related to mechanical ventilation as evidenced by current tube feeding rate. Goal: Meet estimated nutritional needs. Patient will continue current goal. Pt current nutrition is NPO. Nutrition recommendation: Nepro at 40 ml/hr. Last recorded weight is 153.9 kg, up from 148.9 kg on admit. Bowel Motility: FMS Labs Reviewed: Mg 2.4, Gl u182, Cr 2.28, BUN 56, GFR 21, Alb 3.0 Meds Noted: NovoLog, Precedex,Protonix, Lantus, Eliquis Skin: WNL Additional Notes: Patient current with Trach 04/11, PEG planned for today 04/12. Diet order NPO, recommending restarting tube feedings of Nepro at 40 ml/hr when diet orders are advanced. Agree with diet orders. Will monitor weight, labs, skin, diet orders, meds, tube feeding tolerance every Thursday and Thursday.
[2024-04-12 11:36] LABS: Glucose Point of Care 165 mg/dl (65-105)
--- NOTE | 2024-04-12 12:18 | P.PNINT_ITS ---
Progress Note: A&P Assessment and Plan (1) Acute hypoxic respiratory failure: Code(s): J96.01 - Acute respiratory failure with hypoxia Status: Acute Assessment and Plan: Acute hypoxic respiratory failure secondary to pneumonia and congestive heart failure Patient now emergently intubated 03/28 -03/28: Repeat PCR was positive RSV -continue isolation -chest x-ray and ABGs reviewed this morning -Currently PEEP to 10 and FiO2 down to 30% -patient will require additional fluid removal before considering weaning from mechanical ventilation -04/09: Started on Precedex infusion, Versed and fentanyl infusion were discontinued -status post stress dose steroids. -discussed with Nephrology, patient did have if improved urine output over the last 24 hours, and since she did not tolerate dialysis well, rivet hole machine operator recommended commended Bumex 2 mg IV x1. If she does not respond well, will have to dialyze the patient 04/06: Patient did respond to Bumex that was given yesterday with 1900 mL urine output in the last 24 hours 04/07: A new dialysis catheter has been placed in the left IJ, currently functioning well. Have discussed with Nephrology to continue to remove fluid 04/08: Patient was dialyzed yesterday with 1000 mL in fluid removal, urine output has been adequate, I have asked the bedside RN to turn of the sedation, patient remains somnolent, will place patient on ASV, start Precedex infusion since she is getting tachycardic and hypertensive. Once she is more awake will place her on SBT and evaluate for extubation -04/09: Patient getting dialyzed today. Received Bumex last night with good urine output. Chest x-ray shows worsening airspace opacity right mid and lower lung zones. Worsened small right pleural effusion. FiO2 requirements have increased to 60% from 35%. Place patient on pressure support ventilation, 02/06, low tidal volumes, tachypnea, tachycardia, had to be placed back on CMV mode Discussed with and daughter and updated them with patient's condition, intubated for almost 2 weeks, they agreeable with tracheostomy, as scheduled and with ENT for 04/11/2024. -GI has been consulted for PEG tube placement 04/10: Tried to place patient again on pressure support ventilation 02/06, was not getting adequate tidal volumes, was also tachypneic. Also tried ASV, her respiratory rate was too low. I have asked the bedside RN to come down on her Precedex 04/11: Status post tracheostomy 04/12: PEG tube scheduled for today, Placed patient on ASV mode of ventilation, will switch to pressure support after PEG tube placement 03/27 CTA chest Impression: No evidence of pulmonary embolus, aortic dissection, or aortic aneurysm. Extensive right lower lobe pneumonia. Probable mildly prominent reactive lymphadenopathy the right axilla and subcarinal region. (2) Sepsis: Code(s): A41.9 - Sepsis, unspecified organism Status: Acute Assessment and Plan: RESOLVED Sepsis/septic shock secondary to community-acquired pneumonia, initial procalcitonin level 4.4 Blood cultures ordered and negative till now Sputum cultures negative Urine Legionella and pneumococcal antigen negative Status post cefepime and azithromycin MRSA screen negative. Vancomycin discontinued (3) Diabetes: Code(s): E11.9 - Type 2 diabetes mellitus without complications Status: Chronic Assessment and Plan: Status post insulin infusion Continue to hold Lantus to 60 units q.12 since blood sugars on trending down after switching patient to Nepro on tube feeds Status post steroids, also she got dialyzed better with the new dialysis catheter in the right IJ, likely dropped her blood sugars. -continue Accu-Cheks and sliding scale insulin -holding tube feeds as could not obtain NG tube -will restart tube feeds after PEG tube placement today (4) Atrial fibrillation with RVR: Code(s): I48.91 - Unspecified atrial fibrillation Status: Acute Assessment and Plan: Patient was amiodarone infusion which has been switched to p.o. amiodarone per tube metoprolol by Cardiology Patient is anticoagulated with Eliquis, currently on hold for PEG tube placement, will resume in a.m. Echo Summary 1. Very technically difficult study with limited views. 2. Left ventricular chamber dimension is normal. 3. Left ventricular systolic function is at lower limits of normal, estimated at 50-55%. 4. Left atrial chamber dimension is moderately enlarged (5) Community acquired pneumonia: Code(s): J18.9 - Pneumonia, unspecified organism Status: Acute Assessment and Plan: See above (6) Altered mental status: Code(s): R41.82 - Altered mental status, unspecified Status: Acute Assessment and Plan: Likely secondary to hypoxia. Patient had CT scan of the head recently done which was unremarkable Repeat head CT on 03/28 was again unremarkable Ammonia levels within normal limit TSH was normal -patient continues to open her eyes and follows simple commands (7) Electrolyte abnormality: Code(s): E87.8 - Other disorders of electrolyte and fluid balance, not elsewhere classified Status: Acute Assessment and Plan: Patient on dialysis (8) Shock: Code(s): R57.9 - Shock, unspecified Status: Acute Assessment and Plan: RESOLVED Patient was on Levophed and vasopressin infusion which are currently off -off stress dose steroid - status post 25% albumin -Hold further crystalloids (9) VINCENT (acute kidney injury): Code(s): N17.9 - Acute kidney failure, unspecified Status: Acute Assessment and Plan: Increase in creatinine and drop in urine output likely secondary to shock Patient received IV fluids and 5% albumin earlier in the course. norm CK level Renal ultrasound showed No hydronephrosis. Perinephric fluid collection adjacent to the left lower pole. Nephrology following Continued maintain mean arterial pressure with vasopressors if needed 04/02 Discussed with rivet hole machine operator and patient's family. Discussed risks and benefits of starting hemodialysis. Binder Stripper Machine and patient's family in agreement. Patient's consented to proceed. Temporary dialysis catheter placed. Patient was dialyzed. Further dialysis per as per Nephrology -04/04: Patient did not tolerate dialysis as she became tachypneic, tachycardic and hypotensive requiring restarting Levophed. -04/05: Binder Stripper Machine recommended giving Bumex 2 mg IV x1 since patient had slightly improved urine output over the last 24 hours and a creatinine and BUN trending downward, - will monitor urine output, renal function and electrolytes 04/06: Discuss with Nephrology, patient received dialysis today with no removal of fluid 04/07: New left IJ dialysis catheter was inserted today, currently functioning well. Right IJ dialysis catheter was removed -dialysis per Nephrology (10) Elevated liver enzymes: Code(s): R74.8 - Abnormal levels of other serum enzymes Status: Acute Assessment and Plan: Patient is status post cholecystectomy Elevated AST ALT and alkaline phosphatase likely secondary to shock liver Hold statin Right upper quadrant ultrasound - Status post cholecystectomy. Pancreas poorly visualized. Otherwise normal abdominal ultrasound findings. While hepatitis panel was negative Levels were increasing I have discussed with Cardiology regarding potential amiodarone related hepatotoxicity. Patient was on IV amiodarone earlier for rate control as patient was in AFib with RVR. It was switched to p.o. as the rate improved. 2/ amiodarone was held GI consult and following LFTs have been improving, continue to monitor Plan DVT prophylaxis -Eliquis, currently on hold for PEG tube placement, will restart after PEG tube placement, Stress ulcer prophylaxis -protonix Nutrition -holding tube feeds for tracheostomy today Code Status - Full Code Total Critical Care Time - 34 minutes Discussed patient's daughter and updated her with patient's condition and plan of care. She is aware that the patient is going to get a PEG tube placement today. Also discussed with her regarding a permanent catheter for dialysis which will be placed by surgery at some point before she leaves were LTAC. Care coordination is working on LTAC placement. I answered all her questions Due to a high probability of clinically significant, life threatening deterioration, the patient required my highest level of preparedness to intervene emergently and I personally spent this critical care time directly and personally managing the patient. This critical care time included obtaining a history; examining the patient; pulse oximetry; ordering and review of studies; arranging urgent treatment with development of a management plan; evaluation of patient's response to treatment; frequent reassessment; and discussions with other providers. It was exclusive of separately billable procedures and treating other patients and teaching time. Please see Assessment and Plan section and the rest of the note for further information on patient assessment and treatment This dictation may have been done utilizing a voice recognition system. Attempts have been made to correct errors. However, there may be uncorrected grammatical, spelling, and recognitions errors present. Subjective Date/time seen: 04/12/24 12:18 Interval history: 68yo female with AFib s/p SHYAY cardioversion that was unsuccessful, KAREN not using CPAP, DM, HTN and endometrial cancer who presents with shortness of breath, leg swelling and weight gain over the past few weeks. Now in with respiratory failure secondary to pneumonia with septic shock. Intubated and on mechanical ventilation. RSV positive, acute kidney injury status post dialysis catheter and dialysis 04/07: A new Left IJ dialysis catheter was inserted 04/11: Status post tracheostomy 04/12/2024: Patient seen and examined the ICU, remains intubated on CMV mode of ventilation, peep of 10, 35% FiO2. Sedated with Precedex infusion, opens her eyes, follows simple commands in all extremities and nods to questions appropriately. Status post tracheostomy placement yesterday on 04/11/2024. Also could dialyzed yesterday with 2000 mL in fluid removal. Currently afebrile, hemodynamically stable, remains in AFib, rate controlled. Continues to make urine. Review of Systems Review of Systems: ROS unobtainable: Yes unobtainable due to endotracheal tube, unobtainable due to medical condition and unobtainable due to mental status Exam Narrative: General: Patient on Precedex infusion, in no acute distress Lungs/Chest: Coarse breath sounds bilaterally, no wheezing, decreased air entry at bases Rt > Lt, tracheostomy in place Cardiac: Irregularly irregular, h rate control Circulation: Pedal pulses are intact and symmetrical. Abdomen: Normoactive bowel sounds bowel sounds. Morbidly Obese. Soft. NT. ND. Extremities: No clubbing, cyanosis, bilateral upper and lower extremity edema improving : Can in place Neurologic: Status post tracheostomy on Precedex infusion, opens her eyes, follows simple command in all extremities, pupils equal and reactive to light Objective Data Vital Signs Vital Signs: Vital Signs - 24 hr 04/11/24 12:55 04/11/24 12:55 04/11/24 13:30 Temperature 97.6 F Pulse Rate 83 83 84 Respiratory Rate 22 H 22 H 21 H Blood Pressure 130/92 H Pulse Oximetry 96 Oxygen Delivery Fraction of Inspired Oxygen 04/11/24 13:43 04/11/24 13:51 04/11/24 14:00 Temperature Pulse Rate 79 93 Respiratory Rate Blood Pressure 122/93 H 119/81 Pulse Oximetry Oxygen Delivery Fraction of Inspired Oxygen 50 04/11/24 14:00 04/11/24 14:00 04/11/24 14:00 Temperature 97.7 F Pulse Rate 85 91 100 Respiratory Rate 21 H 21 H Blood Pressure 119/81 Pulse Oximetry 94 Oxygen Delivery Fraction of Inspired Oxygen 04/11/24 14:15 04/11/24 14:29 04/11/24 14:30 Temperature Pulse Rate 95 96 102 H Respiratory Rate Blood Pressure 114/66 101/65 Pulse Oximetry 92 Oxygen Delivery Mechanical Ventilation Fraction of Inspired Oxygen 50 04/11/24 14:45 04/11/24 15:00 04/11/24 15:15 Temperature Pulse Rate 101 H 94 102 H Respiratory Rate Blood Pressure 102/75 110/84 92/76 L Pulse Oximetry Oxygen Delivery Fraction of Inspired Oxygen 04/11/24 15:30 04/11/24 15:45 04/11/24 16:00 Temperature Pulse Rate 108 H 102 H 122 H Respiratory Rate Blood Pressure 92/72 L 103/58 L 91/76 L Pulse Oximetry Oxygen Delivery Fraction of Inspired Oxygen 04/11/24 16:00 04/11/24 16:00 04/11/24 16:00 Temperature 99.3 F Pulse Rate 95 109 H Respiratory Rate 23 H Blood Pressure 91/76 L Pulse Oximetry 93 Oxygen Delivery Fraction of Inspired Oxygen 50 04/11/24 16:00 04/11/24 16:15 04/11/24 16:30 Temperature Pulse Rate 116 H 93 Respiratory Rate Blood Pressure 92/64 L 95/71 L Pulse Oximetry Oxygen Delivery Mechanical Ventilation Fraction of Inspired Oxygen 04/11/24 16:45 04/11/24 16:45 04/11/24 16:57 Temperature Pulse Rate 92 95 98 Respiratory Rate 28 H Blood Pressure 92/67 L 92/67 L Pulse Oximetry Oxygen Delivery Fraction of Inspired Oxygen 04/11/24 16:58 04/11/24 17:00 04/11/24 17:00 Temperature Pulse Rate 104 H 100 115 H Respiratory Rate 29 H Blood Pressure 88/72 L Pulse Oximetry 92 Oxygen Delivery Mechanical Ventilation Fraction of Inspired Oxygen 50 04/11/24 17:15 04/11/24 17:37 04/11/24 17:43 Temperature 99.9 F H Pulse Rate 97 94 93 Respiratory Rate 22 H 21 H Blood Pressure 90/80 L 113/87 Pulse Oximetry 93 Oxygen Delivery Fraction of Inspired Oxygen 04/11/24 17:43 04/11/24 18:00 04/11/24 18:00 Temperature 100.0 F H Pulse Rate 93 84 92 Respiratory Rate 21 H 24 H Blood Pressure 116/89 Pulse Oximetry 96 Oxygen Delivery Fraction of Inspired Oxygen 04/11/24 20:00 04/11/24 20:00 04/11/24 20:00 Temperature Pulse Rate 134 H 134 H Respiratory Rate 26 H Blood Pressure 117/78 Pulse Oximetry Oxygen Delivery Fraction of Inspired Oxygen 50 04/11/24 20:00 04/11/24 20:00 04/11/24 20:00 Temperature 100.7 F H Pulse Rate 138 H 134 H Respiratory Rate 26 H Blood Pressure 117/78 Pulse Oximetry 97 Oxygen Delivery Mechanical Ventilation Fraction of Inspired Oxygen 50 04/11/24 20:02 04/11/24 21:15 04/11/24 21:30 Temperature Pulse Rate 97 97 97 Respiratory Rate Blood Pressure 113/83 114/85 Pulse Oximetry 98 Oxygen Delivery Mechanical Ventilation Fraction of Inspired Oxygen 50 04/11/24 21:45 04/11/24 22:00 04/11/24 22:00 Temperature Pulse Rate 108 H 111 H 111 H Respiratory Rate 27 H Blood Pressure 90/57 L 95/83 L Pulse Oximetry Oxygen Delivery Fraction of Inspired Oxygen 04/11/24 22:00 04/11/24 22:00 04/11/24 22:15 Temperature 100.7 F H Pulse Rate 111 H 111 H 109 H Respiratory Rate 27 H Blood Pressure 95/83 L 76/45 L Pulse Oximetry 97 Oxygen Delivery Fraction of Inspired Oxygen 04/11/24 22:30 04/11/24 22:40 04/11/24 22:40 Temperature Pulse Rate 92 88 88 Respiratory Rate 23 H 23 H Blood Pressure 82/59 L Pulse Oximetry Oxygen Delivery Fraction of Inspired Oxygen 04/11/24 23:11 04/12/24 00:00 04/12/24 00:00 Temperature Pulse Rate 76 86 86 Respiratory Rate 21 H Blood Pressure 89/63 L Pulse Oximetry 100 Oxygen Delivery Mechanical Ventilation Fraction of Inspired Oxygen 40 04/12/24 00:00 04/12/24 00:00 04/12/24 00:00 Temperature 100.5 F H Pulse Rate 86 Respiratory Rate 21 H Blood Pressure 89/63 L Pulse Oximetry 99 Oxygen Delivery Mechanical Ventilation Fraction of Inspired Oxygen 35 35 04/12/24 00:00 04/12/24 02:00 04/12/24 02:00 Temperature Pulse Rate 89 79 79 Respiratory Rate 24 H Blood Pressure 104/73 Pulse Oximetry Oxygen Delivery Fraction of Inspired Oxygen 04/12/24 02:00 04/12/24 02:00 04/12/24 02:02 Temperature 99.9 F H Pulse Rate 79 79 76 Respiratory Rate 24 H Blood Pressure 104/73 Pulse Oximetry 96 97 Oxygen Delivery Mechanical Ventilation Fraction of Inspired Oxygen 35 04/12/24 02:15 04/12/24 03:37 04/12/24 03:45 Temperature Pulse Rate 80 Respiratory Rate Blood Pressure 96/68 L Pulse Oximetry Oxygen Delivery Mechanical Ventilation Fraction of Inspired Oxygen 35 35 04/12/24 04:00 04/12/24 04:00 04/12/24 04:00 Temperature Pulse Rate 76 76 76 Respiratory Rate 20 20 Blood Pressure 107/77 Pulse Oximetry Oxygen Delivery Fraction of Inspired Oxygen 04/12/24 04:00 04/12/24 04:00 04/12/24 04:15 Temperature 99.7 F H Pulse Rate 76 73 80 Respiratory Rate 20 Blood Pressure 107/77 101/64 Pulse Oximetry 98 Oxygen Delivery Fraction of Inspired Oxygen 04/12/24 05:13 04/12/24 06:00 04/12/24 06:00 Temperature Pulse Rate 70 78 78 Respiratory Rate 23 H Blood Pressure 97/72 L Pulse Oximetry 97 Oxygen Delivery Mechanical Ventilation Fraction of Inspired Oxygen 35 04/12/24 06:00 04/12/24 06:00 04/12/24 06:14 Temperature 99.6 F Pulse Rate 78 76 67 Respiratory Rate 23 H Blood Pressure 97/72 L Pulse Oximetry 98 Oxygen Delivery Fraction of Inspired Oxygen 04/12/24 06:42 04/12/24 08:00 04/12/24 08:00 Temperature 99.3 F Pulse Rate 82 69 75 Respiratory Rate 21 H 22 H Blood Pressure 108/73 108/73 Pulse Oximetry 99 Oxygen Delivery Fraction of Inspired Oxygen 04/12/24 08:00 04/12/24 08:25 04/12/24 08:39 Temperature Pulse Rate 69 73 76 Respiratory Rate 22 H Blood Pressure 109/79 Pulse Oximetry 99 Oxygen Delivery Mechanical Ventilation Fraction of Inspired Oxygen 35 04/12/24 09:08 04/12/24 09:08 04/12/24 09:27 Temperature Pulse Rate 69 69 78 Respiratory Rate 17 17 17 Blood Pressure Pulse Oximetry Oxygen Delivery Fraction of Inspired Oxygen 04/12/24 10:00 04/12/24 10:02 04/12/24 10:02 Temperature 99.2 F Pulse Rate 75 76 76 Respiratory Rate 16 15 Blood Pressure 106/72 106/72 Pulse Oximetry 99 Oxygen Delivery Fraction of Inspired Oxygen 04/12/24 10:49 04/12/24 11:16 04/12/24 11:22 Temperature Pulse Rate 81 84 77 Respiratory Rate 15 Blood Pressure 111/75 Pulse Oximetry 99 Oxygen Delivery Mechanical Ventilation Fraction of Inspired Oxygen 35 04/12/24 12:00 Temperature 99.2 F Pulse Rate 85 Respiratory Rate 17 Blood Pressure 110/78 Pulse Oximetry 99 Oxygen Delivery Fraction of Inspired Oxygen Intake/Output Intake/Output: Intake & Output 04/09/24 04/10/24 04/11/24 04/12/24 23:59 23:59 23:59 23:59 Intake Total 1531.1 1524.9 855.4 296.8 Output Total 3350 1000 3600 225 Balance -1818.9 524.9 -2744.6 71.8 Meds/Results Medications: Active Medications Generic Name Dose Route Start Last Admin Trade Name Freq PRN Reason Stop Dose Admin Acetaminophen 650 mg 03/27/24 14:41 04/10/24 11:41 Acetaminophen 325 Mg Tablet PO 650 mg Q4H PRN Administration Mild Pain (1-3) or Fever Alteplase, Recombinant 2 mg 04/06/24 03:11 04/06/24 03:22 Alteplase 2 Mg Vial (Cathflo) IV PUSH 2 mg ONCE PRN Administration Line Occlusion Amiodarone HCl 400 mg 04/01/24 10:40 04/03/24 08:31 Amiodarone Hcl 200 Mg Tablet PO 400 mg DAILY [facility]ER[facility] Administration Apixaban 5 mg 03/27/24 12:35 04/10/24 21:21 Apixaban 5 Mg Tablet PO Not Given Q12HR [facility] Bisacodyl 10 mg 04/10/24 02:20 04/10/24 06:21 Bisacodyl 10 Mg Suppository RECTAL 10 mg QAM PRN Administration Constipation Cyanocobalamin 1,000 mcg 03/27/24 17:00 04/12/24 08:41 Cyanocobalamin 1,000 Mcg Tablet PO Not Given BID [facility]AVERNE Dextrose 12.5 gm 03/27/24 08:57 Dextrose 50% 25 Gm/50 Ml Syringe IV PUSH PRN PRN Hypoglycemia Protocol Docosanol 1 applic 04/09/24 09:00 04/12/24 11:42 Docosanol 10% Cream 2 Gm TOPICAL 1 applic 5 TIMES DAILY LAVERNE Administration Glucagon 1 mg 03/27/24 08:57 Glucagon For Inj 1 Mg Vial IM PRN PRN Hypoglycemia Protocol Glucose 15 gm 03/27/24 08:57 Glucose Oral Gel 15 Gm Of Glucse In 37.5 Gm Tube PO PRN PRN Hypoglycemia Protocol Dextrose 1,000 mls @ 100 mls/hr 03/27/24 08:57 Dextrose 5% 1,000 Ml IVPB PRN PRN Hypoglycemia Protocol Albumin Human 50 mls @ 999 mls/hr 04/03/24 09:19 04/07/24 15:05 Albutein IVPB 05/03/24 09:18 100 mls/hr Q10M PRN Administration HYPOTENSION Dexmedetomidine HCl 400 mcg in 100 mls @ 4.05 mls/hr 04/08/24 09:40 04/12/24 11:16 Precedex 400 Mcg/100 Ml IV CONT 0.1 mcg/kg/hr .[id number] LAVERNE 4.05 mls/hr Titration Protocol 0.1 MCG/KG/HR Norepinephrine Bitartrate 8 mg in 250 mls @ 0 mls/hr 04/11/24 16:50 04/12/24 10:49 Levophed 8 Mg/D5w 250 Ml IV CONT 0 mcg/min .Q0M LAVERNE 0 mls/hr Titration Protocol Insulin Aspart 4 - 8 units 03/29/24 13:00 04/12/24 11:41 Insulin Aspart (*Bkc) 100 Units/Ml SUB-Q Not Given Q4HR [facility] Protocol Insulin Glargine 60 units 04/01/24 09:00 04/08/24 08:20 Insulin Glargine (*Bkc) 100 Units/Ml SUB-Q Not Given Q12HR [facility] Metoprolol Tartrate 12.5 mg 04/07/24 12:00 04/11/24 12:13 Metoprolol Tartrate 12.5 Mg Tablet PO Not Given Q6HR [facility] Metoprolol Tartrate 5 mg 04/12/24 00:00 04/12/24 06:14 Metoprolol Tartrate Inj 5 Mg/5 Ml Vial IV PUSH Not Given Q6HR [facility] Midazolam HCl 2 mg 04/11/24 16:46 04/11/24 22:02 Midazolam Hcl (*Crx) 2 Mg/2 Ml Vial IV PUSH 2 mg Q2H PRN Administration Ventilator Asynchrony Multi-Ingred Cream/Lotion/Oil/Oint 1 applic 03/28/24 21:00 04/12/24 08:42 Mineral Oil/White Petrolatum Ointment EACH EYE Not Given Q12HR [facility] Pantoprazole Sodium 40 mg 03/29/24 09:00 04/12/24 08:41 Pantoprazole Sodium Iv 40 Mg Vial IV PUSH 40 mg DAILY LAVERNE Administration Polyethylene Glycol 17 gm 04/12/24 07:50 Polyethylene Glycol 3350 17 Gm Powd.Pack PO QAM PRN Constipation Rosuvastatin Calcium 20 mg 03/28/24 09:00 03/31/24 09:28 Rosuvastatin 20 Mg Tablet PO Not Given DAILY LAVERNE Senna/Docusate Sodium 1 tab 04/07/24 21:00 04/11/24 21:47 Senna/Docusate Sodium Tablet PO Not Given HS [facility]ERNE Sodium Chloride 10 ml 03/28/24 22:00 04/12/24 06:14 Central Line Flush IV PUSH 10 ml Q8HR [facility] Administration Sodium Chloride 10 ml 03/28/24 16:14 Central Line Flush IV PUSH PRN PRN with TPN bag changes Sodium Chloride 20 ml 03/28/24 16:14 Central Line Flush IV PUSH PRN PRN after blood draws Radiology Results: ITS Impressions Chest CTA 03/27/24 06:41 Impression: No evidence of pulmonary embolus, aortic dissection, or aortic aneurysm. Extensive right lower lobe pneumonia. Probable mildly prominent reactive lymphadenopathy the right axilla and subcari nal region. Head CT 03/28/24 22:59 IMPRESSION: 1. Normal brain. Abdomen X-Ray 03/29/24 08:59 IMPRESSION: 1. Lines and tubes in expected positions. 2. Diffuse bilateral lung disease, right greater than left, consistent with multifocal pneumonia. Renal Ultrasound 03/31/24 15:34 IMPRESSION: No hydronephrosis. Perinephric fluid collection adjacent to the left lower pole. Abdomen Ultrasound 03/31/24 15:39 IMPRESSION: Status post cholecystectomy. Pancreas poorly visualized. Otherwise normal abdominal ultrasound findings. Chest X-Ray 04/12/24 06:39 Impression: Central congestive change and probable mild bibasilar pulmonary edema. Correlate clinically for pneumonia. Support tubes, as above. Labs Labs: Laboratory Results - last 24 hr 04/11/24 04/11/24 04/12/24 15:57 20:16 00:16 WBC RBC Hgb Hct MCV MCH MCHC RDW Plt Count MPV Immature Gran % (Auto) Neut % (Auto) Lymph % (Auto) [place] % (Auto) Eos % (Auto) Baso % (Auto) Lymph # (Auto) [place] # (Auto) Eos # (Auto) Baso # (Auto) Abs Immat Gran (auto) Absolute Neuts (auto) Absolute Nucleated RBC Nucleated RBC % Puncture Site ABG pH ABG pCO2 ABG pO2 ABG PO2/FiO2 Ratio ABG HCO3 ABG O2 Saturation ABG O2 Content ABG Base Excess A-a Gradient Oxyhemoglobin Carboxyhemoglobin Methemoglobin Reduced Hemoglobin Total Hemoglobin O2 Delivery Device O2 Liters/Min Minute Volume Vent Rate Vent Mode FiO2 Tidal Volume PEEP Peak Inspir Pressure Pressure Support Sodium Potassium Chloride Carbon Dioxide Anion Gap BUN Creatinine Estim Creat Clear Calc Estimated GFR Glucose POC Capillary Glucose 133 H 158 H 167 H Calcium Phosphorus Magnesium Total Bilirubin AST ALT Alkaline Phosphatase Total Protein Albumin 04/12/24 04/12/24 04/12/24 04:01 05:17 07:44 WBC 11.4 H RBC 3.40 L Hgb 10.0 L Hct 32.1 L MCV 94.4 MCH 29.4 MCHC 31.2 L RDW 17.0 H Plt Count 339 MPV 9.9 Immature Gran % (Auto) 0.4 Neut % (Auto) 91.8 H Lymph % (Auto) 4.4 L [place] % (Auto) 3.2 Eos % (Auto) 0.0 Baso % (Auto) 0.2 Lymph # (Auto) 0.50 L [place] # (Auto) 0.4 Eos # (Auto) 0.0 Baso # (Auto) 0.0 Abs Immat Gran (auto) 0.04 H Absolute Neuts (auto) 10.5 H Absolute Nucleated RBC 0.000 Nucleated RBC % 0.0 Puncture Site Right radial ABG pH 7.461 H ABG pCO2 30.5 L ABG pO2 76.1 L ABG PO2/FiO2 Ratio 2.17 ABG HCO3 21.3 L ABG O2 Saturation 96.1 ABG O2 Content 14.0 L ABG Base Excess -1.8 A-a Gradient 138.0 Oxyhemoglobin 94.3 Carboxyhemoglobin 0.3 Methemoglobin 0.3 Reduced Hemoglobin 5.1 H Total Hemoglobin 10.5 L O2 Delivery Device Ventilator O2 Liters/Min Not Reportable Minute Volume Not Reportable Vent Rate 20 Vent Mode [facility] FiO2 35 Tidal Volume 400 PEEP 10 Peak Inspir Pressure Not Reportable Pressure Support Not Reportable Sodium 139 Potassium 4.2 Chloride 105 Carbon Dioxide 23 Anion Gap 11 BUN 56 H D Creatinine 2.28 H Estim Creat Clear Calc 34 Estimated GFR 21 L Glucose 182 H POC Capillary Glucose 160 H Calcium 8.7 Phosphorus 5.4 H Magnesium 2.4 H Total Bilirubin 1.1 AST 18 ALT 226 H Alkaline Phosphatase 128 H Total Protein 6.0 L Albumin 3.0 L 04/12/24 11:32 WBC RBC Hgb Hct MCV MCH MCHC RDW Plt Count MPV Immature Gran % (Auto) Neut % (Auto) Lymph % (Auto) [place] % (Auto) Eos % (Auto) Baso % (Auto) Lymph # (Auto) [place] # (Auto) Eos # (Auto) Baso # (Auto) Abs Immat Gran (auto) Absolute Neuts (auto) Absolute Nucleated RBC Nucleated RBC % Puncture Site ABG pH ABG pCO2 ABG pO2 ABG PO2/FiO2 Ratio ABG HCO3 ABG O2 Saturation ABG O2 Content ABG Base Excess A-a Gradient Oxyhemoglobin Carboxyhemoglobin Methemoglobin Reduced Hemoglobin Total Hemoglobin O2 Delivery Device O2 Liters/Min Minute Volume Vent Rate Vent Mode FiO2 Tidal Volume PEEP Peak Inspir Pressure Pressure Support Sodium Potassium Chloride Carbon Dioxide Anion Gap BUN Creatinine Estim Creat Clear Calc Estimated GFR Glucose POC Capillary Glucose 165 H Calcium Phosphorus Magnesium Total Bilirubin AST ALT Alkaline Phosphatase Total Protein Albumin Quality VTE Prophylaxis VTE prophylaxis: pharmacologic ordered
--- NOTE | 2024-04-12 12:25 | P.CONGS_ITS ---
Assessment and Plan Assessment and plan (1) VINCENT (acute kidney injury): Code(s): N17.9 - Acute kidney failure, unspecified Status: Acute Assessment and Plan: * Patient presented with sepsis, acute respiratory failure secondary to pneumonia, VINCENT, and afib RVR. She was started on hemodialysis through temporary right IJ hemodialysis catheter, which malfunctioned and eventually was removed. She then had a temporary left IJ hemodialysis catheter placed, which has been functioning well. Nephrology now requesting placement of a tunneled Permacath. Description of the procedure, risks, benefits, alternatives, and recovery were discussed with the patient and her daughter. They agree to proceed. Continue to hold Eliquis. She is having her PEG tube placement today. Will plan to proceed with tunneled HD cath placement in the next day or two. (2) Acute hypoxic respiratory failure: Code(s): J96.01 - Acute respiratory failure with hypoxia Status: Acute (3) RSV (respiratory syncytial virus pneumonia): Code(s): J12.1 - Respiratory syncytial virus pneumonia Status: Acute (4) Anticoagulated by anticoagulation treatment: Code(s): Z79.01 - nursing home (current) use of anticoagulants Status: Acute Assessment and Plan: * Eliquis on hold since 04/10/24 for PEG tube. Continue to hold Eliquis in preparation for tunneled HD cath (5) Sepsis: Code(s): A41.9 - Sepsis, unspecified organism Status: Acute (6) Diabetes: Code(s): E11.9 - Type 2 diabetes mellitus without complications Status: Chronic (7) Atrial fibrillation: Code(s): I48.91 - Unspecified atrial fibrillation Status: Acute Plan I have discussed the patient's case and plan of care with Dr. Gregg. History of Present Illness Consult details Consult date: 04/12/24 Reason for consult: other (Tunneled HD catheter placement) Requesting physician: Nuha Dawson MD Narrative: 68-year-old woman with AFib s/p the cardioversion does unsuccessful, KAREN, diabetes, hypertension, and endometrial cancer who presented over 2 weeks ago with shortness of breath, leg swelling, and weight gain for a few weeks. She has respiratory failure secondary to pneumonia with septic shock and has remained intubated on mechanical ventilation with tracheostomy placed yesterday. Her admission is also complicated by acute renal failure and she has been on hemodialysis with nephrology following. She had a temporary right IJ initially placed for dialysis, which was malfunctioning. She eventually had this removed and a left IJ central venous catheter for hemodialysis placed. This has been functioning well and nephrology is now consulting our service for tunneled hemodialysis catheter placement. The plan is for her to transfer to an LTAC in the next few days after she has had her tracheostomy and PEG tube. She is on Eliquis, which has been held since 04/10/2024. She is also receiving tube feedings, which were held for her PEG placement today. Her daughter is at the bedside. She is alert and nods to questions. Denies ever having hemodialysis prior to this admission. Review of Systems 2 Review of Systems: ROS unobtainable: Yes unobtainable due to endotracheal tube (tracheostomy) PMFSH Past Medical History Medical History Acute hypoxic respiratory failure Atrial fibrillation with RVR Septic shock RSV (respiratory syncytial virus pneumonia) Malnutrition Atrial fibrillation History of endometrial cancer Sleep apnea does not use CPAP High cholesterol Diabetes Hypertension Surgical History Surgical History History of total hysterectomy (~2018) History of cholecystectomy (~1998) History of 1977, 1983, 1990 Family History Family History Mother Uterine cancer Daughter Thyroid cancer Sibling Spinal cord cancer Social History Social History Social History: Patient lives at home with her . No pets in the home. Smoking status: Never smoker Alcohol intake: current Alcohol use details: occasional. Less than once a month. Substance use: never Substance use type: does not use Do You Feel Safe in your Home?: Yes Lack of Transportation: No Lack of Food: Never True Current Housing: I Have Housing Concerned About Future Housing: No Difficulty Paying Gas/Electric Bills: No Difficulty Paying for Meds: YES Currently Unemployed: No Education: Trade/Vocational Certificate Difficulty w/ Childcare or Family Care: No Living arrangements: with family Spiritual care concerns: No Meds Home Medications and Allergies Home Medications ?Medication ?Instructions ?Recorded ?Confirmed ?Type losartan 100 1 tablet PO DAILY 03/19/22 03/27/24 History mg-hydrochlorothiazide 25 mg tablet metformin 500 mg tablet 500 mg PO BID 03/19/22 03/27/24 History metoprolol tartrate 25 mg tablet 25 mg PO BID 03/19/22 03/27/24 History rosuvastatin 20 mg tablet 20 mg PO DAILY 01/01/23 03/27/24 History ezetimibe 10 mg tablet 10 mg PO DAILY 01/07/23 03/27/24 History cyanocobalamin (vitamin B-12) 2 tablet PO DAILY 01/06/24 03/27/24 History apixaban 5 mg tablet (Eliquis) 5 mg PO Q12H 03/27/24 03/27/24 History tirzepatide 2.5 mg/0.5 mL 2.5 mg subcut WEEKLY 03/27/24 03/27/24 History subcutaneous pen injector (Todd) Allergies Allergy/AdvReac Type Severity Reaction Status Date / Time No Known Allergies Allergy Verified 03/27/24 11:06 Vital Signs Vital Signs - 24 hr 04/11/24 12:55 04/11/24 12:55 04/11/24 13:30 Temperature 97.6 F Pulse Rate 83 83 84 Respiratory Rate 22 H 22 H 21 H Blood Pressure 130/92 H Pulse Oximetry 96 Oxygen Delivery Fraction of Inspired Oxygen 04/11/24 13:43 04/11/24 13:51 04/11/24 14:00 Temperature Pulse Rate 79 93 Respiratory Rate Blood Pressure 122/93 H 119/81 Pulse Oximetry Oxygen Delivery Fraction of Inspired Oxygen 50 04/11/24 14:00 04/11/24 14:00 04/11/24 14:00 Temperature 97.7 F Pulse Rate 85 91 100 Respiratory Rate 21 H 21 H Blood Pressure 119/81 Pulse Oximetry 94 Oxygen Delivery Fraction of Inspired Oxygen 04/11/24 14:15 04/11/24 14:29 04/11/24 14:30 Temperature Pulse Rate 95 96 102 H Respiratory Rate Blood Pressure 114/66 101/65 Pulse Oximetry 92 Oxygen Delivery Mechanical Ventilation Fraction of Inspired Oxygen 50 04/11/24 14:45 04/11/24 15:00 04/11/24 15:15 Temperature Pulse Rate 101 H 94 102 H Respiratory Rate Blood Pressure 102/75 110/84 92/76 L Pulse Oximetry Oxygen Delivery Fraction of Inspired Oxygen 04/11/24 15:30 04/11/24 15:45 04/11/24 16:00 Temperature Pulse Rate 108 H 102 H 122 H Respiratory Rate Blood Pressure 92/72 L 103/58 L 91/76 L Pulse Oximetry Oxygen Delivery Fraction of Inspired Oxygen 04/11/24 16:00 04/11/24 16:00 04/11/24 16:00 Temperature 99.3 F Pulse Rate 95 109 H Respiratory Rate 23 H Blood Pressure 91/76 L Pulse Oximetry 93 Oxygen Delivery Fraction of Inspired Oxygen 50 04/11/24 16:00 04/11/24 16:15 04/11/24 16:30 Temperature Pulse Rate 116 H 93 Respiratory Rate Blood Pressure 92/64 L 95/71 L Pulse Oximetry Oxygen Delivery Mechanical Ventilation Fraction of Inspired Oxygen 04/11/24 16:45 04/11/24 16:45 04/11/24 16:57 Temperature Pulse Rate 92 95 98 Respiratory Rate 28 H Blood Pressure 92/67 L 92/67 L Pulse Oximetry Oxygen Delivery Fraction of Inspired Oxygen 04/11/24 16:58 04/11/24 17:00 04/11/24 17:00 Temperature Pulse Rate 104 H 100 115 H Respiratory Rate 29 H Blood Pressure 88/72 L Pulse Oximetry 92 Oxygen Delivery Mechanical Ventilation Fraction of Inspired Oxygen 50 04/11/24 17:15 04/11/24 17:37 04/11/24 17:43 Temperature 99.9 F H Pulse Rate 97 94 93 Respiratory Rate 22 H 21 H Blood Pressure 90/80 L 113/87 Pulse Oximetry 93 Oxygen Delivery Fraction of Inspired Oxygen 04/11/24 17:43 04/11/24 18:00 04/11/24 18:00 Temperature 100.0 F H Pulse Rate 93 84 92 Respiratory Rate 21 H 24 H Blood Pressure 116/89 Pulse Oximetry 96 Oxygen Delivery Fraction of Inspired Oxygen 04/11/24 20:00 04/11/24 20:00 04/11/24 20:00 Temperature Pulse Rate 134 H 134 H Respiratory Rate 26 H Blood Pressure 117/78 Pulse Oximetry Oxygen Delivery Fraction of Inspired Oxygen 50 04/11/24 20:00 04/11/24 20:00 04/11/24 20:00 Temperature 100.7 F H Pulse Rate 138 H 134 H Respiratory Rate 26 H Blood Pressure 117/78 Pulse Oximetry 97 Oxygen Delivery Mechanical Ventilation Fraction of Inspired Oxygen 50 04/11/24 20:02 04/11/24 21:15 04/11/24 21:30 Temperature Pulse Rate 97 97 97 Respiratory Rate Blood Pressure 113/83 114/85 Pulse Oximetry 98 Oxygen Delivery Mechanical Ventilation Fraction of Inspired Oxygen 50 04/11/24 21:45 04/11/24 22:00 04/11/24 22:00 Temperature Pulse Rate 108 H 111 H 111 H Respiratory Rate 27 H Blood Pressure 90/57 L 95/83 L Pulse Oximetry Oxygen Delivery Fraction of Inspired Oxygen 04/11/24 22:00 04/11/24 22:00 04/11/24 22:15 Temperature 100.7 F H Pulse Rate 111 H 111 H 109 H Respiratory Rate 27 H Blood Pressure 95/83 L 76/45 L Pulse Oximetry 97 Oxygen Delivery Fraction of Inspired Oxygen 04/11/24 22:30 04/11/24 22:40 04/11/24 22:40 Temperature Pulse Rate 92 88 88 Respiratory Rate 23 H 23 H Blood Pressure 82/59 L Pulse Oximetry Oxygen Delivery Fraction of Inspired Oxygen 04/11/24 23:11 04/12/24 00:00 04/12/24 00:00 Temperature Pulse Rate 76 86 86 Respiratory Rate 21 H Blood Pressure 89/63 L Pulse Oximetry 100 Oxygen Delivery Mechanical Ventilation Fraction of Inspired Oxygen 40 04/12/24 00:00 04/12/24 00:00 04/12/24 00:00 Temperature 100.5 F H Pulse Rate 86 Respiratory Rate 21 H Blood Pressure 89/63 L Pulse Oximetry 99 Oxygen Delivery Mechanical Ventilation Fraction of Inspired Oxygen 35 35 04/12/24 00:00 04/12/24 02:00 04/12/24 02:00 Temperature Pulse Rate 89 79 79 Respiratory Rate 24 H Blood Pressure 104/73 Pulse Oximetry Oxygen Delivery Fraction of Inspired Oxygen 04/12/24 02:00 04/12/24 02:00 04/12/24 02:02 Temperature 99.9 F H Pulse Rate 79 79 76 Respiratory Rate 24 H Blood Pressure 104/73 Pulse Oximetry 96 97 Oxygen Delivery Mechanical Ventilation Fraction of Inspired Oxygen 35 04/12/24 02:15 04/12/24 03:37 04/12/24 03:45 Temperature Pulse Rate 80 Respiratory Rate Blood Pressure 96/68 L Pulse Oximetry Oxygen Delivery Mechanical Ventilation Fraction of Inspired Oxygen 35 35 04/12/24 04:00 04/12/24 04:00 04/12/24 04:00 Temperature Pulse Rate 76 76 76 Respiratory Rate 20 20 Blood Pressure 107/77 Pulse Oximetry Oxygen Delivery Fraction of Inspired Oxygen 04/12/24 04:00 04/12/24 04:00 04/12/24 04:15 Temperature 99.7 F H Pulse Rate 76 73 80 Respiratory Rate 20 Blood Pressure 107/77 101/64 Pulse Oximetry 98 Oxygen Delivery Fraction of Inspired Oxygen 04/12/24 05:13 04/12/24 06:00 04/12/24 06:00 Temperature Pulse Rate 70 78 78 Respiratory Rate 23 H Blood Pressure 97/72 L Pulse Oximetry 97 Oxygen Delivery Mechanical Ventilation Fraction of Inspired Oxygen 35 04/12/24 06:00 04/12/24 06:00 04/12/24 06:14 Temperature 99.6 F Pulse Rate 78 76 67 Respiratory Rate 23 H Blood Pressure 97/72 L Pulse Oximetry 98 Oxygen Delivery Fraction of Inspired Oxygen 04/12/24 06:42 04/12/24 08:00 04/12/24 08:00 Temperature 99.3 F Pulse Rate 82 69 75 Respiratory Rate 21 H 22 H Blood Pressure 108/73 108/73 Pulse Oximetry 99 Oxygen Delivery Fraction of Inspired Oxygen 04/12/24 08:00 04/12/24 08:25 04/12/24 08:39 Temperature Pulse Rate 69 73 76 Respiratory Rate 22 H Blood Pressure 109/79 Pulse Oximetry 99 Oxygen Delivery Mechanical Ventilation Fraction of Inspired Oxygen 35 04/12/24 09:08 04/12/24 09:08 04/12/24 09:27 Temperature Pulse Rate 69 69 78 Respiratory Rate 17 17 17 Blood Pressure Pulse Oximetry Oxygen Delivery Fraction of Inspired Oxygen 04/12/24 10:00 04/12/24 10:02 04/12/24 10:02 Temperature 99.2 F Pulse Rate 75 76 76 Respiratory Rate 16 15 Blood Pressure 106/72 106/72 Pulse Oximetry 99 Oxygen Delivery Fraction of Inspired Oxygen 04/12/24 10:49 04/12/24 11:16 04/12/24 11:22 Temperature Pulse Rate 81 84 77 Respiratory Rate 15 Blood Pressure 111/75 Pulse Oximetry 99 Oxygen Delivery Mechanical Ventilation Fraction of Inspired Oxygen 35 04/12/24 12:00 Temperature 99.2 F Pulse Rate 85 Respiratory Rate 17 Blood Pressure 110/78 Pulse Oximetry 99 Oxygen Delivery Fraction of Inspired Oxygen Exam 2 Const: General: alert and other (follows commands, awake on ventilator with tracheostomy) Nutritional Appearance: obese Limitations: physical limitations HENMT: Head: normal to inspection, normocephalic and atraumatic Eyes: General: appearance normal, both eyes and all related structures Neck: Neck: normal visual inspection, tracheostomy present and other (left IJ central venous line) Resp: Effort & Inspection: symmetric chest movement and other (intubated on ventilator) Auscultation: clear to auscultation bilaterally Cardio: Rate: regular rate Rhythm: abnormal rhythm irregularly irregular GI: Inspection: non-distended GI Palp: Yes Soft to palpation and No Tenderness to palpation present (GI) (no grimacing with palpation) A uscultation: normal bowel sounds Urinary Catheter: Urinary Catheter: patent and draining Skin: General skin exam: normal color Neuro: General: Unable to assess gait and other (follows commands and nods to yes/no questions) Extrem: General: normal to inspection and no pedal edema Psych: Insight: Limited insight present (Psych) Judgement: Limited judgement present (Psych) Results Labs 04/12/24 04:01 04/12/24 04:01 Labs: Abnormal lab results 04/11/24 04/11/24 04/12/24 Range/Units 15:57 20:16 00:16 WBC (4.5-10.0) K/mm3 RBC (4.2-5.4) M/mm3 Hgb (12.0-15.0) g/dL Hct (37.0-47.0) % MCHC (32-36) g/dl RDW (11.5-14.5) % Neut % (Auto) (45.5-73.1) % Lymph % (Auto) (18.3-44.2) % Lymph # (Auto) (0.9-3.2) K/mm3 Abs Immat Gran (auto) (0.00-0.031) K/mm3 Absolute Neuts (auto) (1.3-6.7) K/mm3 ABG pH (7.350-7.450) ABG pCO2 (35.0-45.0) mmHg ABG pO2 (80.0-100.0) mmHg ABG HCO3 (22.0-26.0) mEq/l ABG O2 Content (16.0-22.0) %vol Reduced Hemoglobin (0-5.0) %THb Total Hemoglobin (12.0-18.0) g/dL BUN (7-17) mg/dL Creatinine (0.7-1.0) mg/dL Estimated GFR (59 - ) Glucose (65-110) mg/dL POC Capillary Glucose 133 H 158 H 167 H (65-105) mg/dl Phosphorus (2.5-4.5) mg/dL Magnesium (1.6-2.3) mg/dL ALT (6-35) U/L Alkaline Phosphatase (38-126) U/L Total Protein (6.3-8.2) g/dL Albumin (3.5-5.1) g/dL 04/12/24 04/12/24 04/12/24 Range/Units 04:01 05:17 07:44 WBC 11.4 H (4.5-10.0) K/mm3 RBC 3.40 L (4.2-5.4) M/mm3 Hgb 10.0 L (12.0-15.0) g/dL Hct 32.1 L (37.0-47.0) % MCHC 31.2 L (32-36) g/dl RDW 17.0 H (11.5-14.5) % Neut % (Auto) 91.8 H (45.5-73.1) % Lymph % (Auto) 4.4 L (18.3-44.2) % Lymph # (Auto) 0.50 L (0.9-3.2) K/mm3 Abs Immat Gran (auto) 0.04 H (0.00-0.031) K/mm3 Absolute Neuts (auto) 10.5 H (1.3-6.7) K/mm3 ABG pH 7.461 H (7.350-7.450) ABG pCO2 30.5 L (35.0-45.0) mmHg ABG pO2 76.1 L (80.0-100.0) mmHg ABG HCO3 21.3 L (22.0-26.0) mEq/l ABG O2 Content 14.0 L (16.0-22.0) %vol Reduced Hemoglobin 5.1 H (0-5.0) %THb Total Hemoglobin 10.5 L (12.0-18.0) g/dL BUN 56 H D (7-17) mg/dL Creatinine 2.28 H (0.7-1.0) mg/dL Estimated GFR 21 L (59 - ) Glucose 182 H (65-110) mg/dL POC Capillary Glucose 160 H (65-105) mg/dl Phosphorus 5.4 H (2.5-4.5) mg/dL Magnesium 2.4 H (1.6-2.3) mg/dL ALT 226 H (6-35) U/L Alkaline Phosphatase 128 H (38-126) U/L Total Protein 6.0 L (6.3-8.2) g/dL Albumin 3.0 L (3.5-5.1) g/dL 04/12/24 Range/Units 11:32 WBC (4.5-10.0) K/mm3 RBC (4.2-5.4) M/mm3 Hgb (12.0-15.0) g/dL Hct (37.0-47.0) % MCHC (32-36) g/dl RDW (11.5-14.5) % Neut % (Auto) (45.5-73.1) % Lymph % (Auto) (18.3-44.2) % Lymph # (Auto) (0.9-3.2) K/mm3 Abs Immat Gran (auto) (0.00-0.031) K/mm3 Absolute Neuts (auto) (1.3-6.7) K/mm3 ABG pH (7.350-7.450) ABG pCO2 (35.0-45.0) mmHg ABG pO2 (80.0-100.0) mmHg ABG HCO3 (22.0-26.0) mEq/l ABG O2 Content (16.0-22.0) %vol Reduced Hemoglobin (0-5.0) %THb Total Hemoglobin (12.0-18.0) g/dL BUN (7-17) mg/dL Creatinine (0.7-1.0) mg/dL Estimated GFR (59 - ) Glucose (65-110) mg/dL POC Capillary Glucose 165 H (65-105) mg/dl Phosphorus (2.5-4.5) mg/dL Magnesium (1.6-2.3) mg/dL ALT (6-35) U/L Alkaline Phosphatase (38-126) U/L Total Protein (6.3-8.2) g/dL Albumin (3.5-5.1) g/dL Diabetes panel 04/12/24 Range/Units 04:01 Sodium 139 (137-145) mmol/L Potassium 4.2 (3.4-5.0) mmol/L Chloride 105 (98-107) mmol/L Carbon Dioxide 23 (22-30) mmol/L BUN 56 H D (7-17) mg/dL Creatinine 2.28 H (0.7-1.0) mg/dL Glucose 182 H (65-110) mg/dL Calcium 8.7 (8.4-10.2) mg/dL AST 18 (14-36) U/L ALT 226 H (6-35) U/L Alkaline Phosphatase 128 H (38-126) U/L Total Protein 6.0 L (6.3-8.2) g/dL Albumin 3.0 L (3.5-5.1) g/dL Calcium panel 04/12/24 Range/Units 04:01 Calcium 8.7 (8.4-10.2) mg/dL Phosphorus 5.4 H (2.5-4.5) mg/dL Albumin 3.0 L (3.5-5.1) g/dL Pituitary panel 04/12/24 Range/Units 04:01 Sodium 139 (137-145) mmol/L Potassium 4.2 (3.4-5.0) mmol/L Chloride 105 (98-107) mmol/L Carbon Dioxide 23 (22-30) mmol/L BUN 56 H D (7-17) mg/dL Creatinine 2.28 H (0.7-1.0) mg/dL Glucose 182 H (65-110) mg/dL Calcium 8.7 (8.4-10.2) mg/dL Adrenal panel 04/12/24 Range/Units 04:01 Sodium 139 (137-145) mmol/L Potassium 4.2 (3.4-5.0) mmol/L Chloride 105 (98-107) mmol/L Carbon Dioxide 23 (22-30) mmol/L BUN 56 H D (7-17) mg/dL Creatinine 2.28 H (0.7-1.0) mg/dL Glucose 182 H (65-110) mg/dL Calcium 8.7 (8.4-10.2) mg/dL Total Bilirubin 1.1 (0.2-1.3) mg/dL AST 18 (14-36) U/L ALT 226 H (6-35) U/L Alkaline Phosphatase 128 H (38-126) U/L Total Protein 6.0 L (6.3-8.2) g/dL Albumin 3.0 L (3.5-5.1) g/dL All other labs normal. Imaging Additional studies: ITS Impressions Chest X-Ray 03/27/24 06:18 Impression: Bibasilar pulmonary edema versus bibasilar pneumonia, right worse than left. Correlate clinically. Suspected minimal right pleural effusion. Cardiomegaly. Chest CTA 03/27/24 06:41 Impression: No evidence of pulmonary embolus, aortic dissection, or aortic aneurysm. Extensive right lower lobe pneumonia. Probable mildly prominent reactive lymphadenopathy the right axilla and subcarinal region. Head CT 03/27/24 06:45 Impression: No significant abnormality seen. Chest X-Ray 03/28/24 06:12 Impression: Worsening extensive right lung consolidation, compatible with multilobar pneumonia in the right lung. Abdomen X-Ray 03/28/24 15:04 IMPRESSION: 1. Endotracheal tube and nasogastric tube in expected positions. 2. Extensive patchy airspace opacities throughout the right lung consistent with multifocal pneumonia. Chest X-Ray 03/28/24 15:04 IMPRESSION: 1. Endotracheal tube and nasogastric tube in expected positions. 2. Extensive patchy airspace opacities throughout the right lung consistent with multifocal pneumonia. Chest X-Ray 03/28/24 16:03 IMPRESSION: 1. PICC tip in the superior vena cava. 2. Diffuse lung disease with worsening on the left, consistent with pneumonia. Head CT 03/28/24 22:59 IMPRESSION: 1. Normal brain. Chest X-Ray 03/29/24 06:13 Impression: Extensive bilateral airspace disease, right worse than left. Correlate for multifocal bilateral pneumonia versus possibly pulmonary edema. NG tube tip is at the GE junction. Further advancement by at least 10 cm recommended. Additional support tubes in satisfactory positions. Abdomen X-Ray 03/29/24 08:59 IMPRESSION: 1. Lines and tubes in expected positions. 2. Diffuse bilateral lung disease, right greater than left, consistent with multifocal pneumonia. Chest X-Ray 03/30/24 06:06 Impression: 1: Stable bilateral airspace disease which may represent edema or pneumonia. Chest X-Ray 03/31/24 05:39 Impression: 1: Persistent diffuse bilateral airspace disease without significant change, edema versus pneumonia. Renal Ultrasound 03/31/24 15:34 IMPRESSION: No hydronephrosis. Perinephric fluid collection adjacent to the left lower pole. Abdomen Ultrasound 03/31/24 15:39 IMPRESSION: Status post cholecystectomy. Pancreas poorly visualized. Otherwise normal abdominal ultrasound findings. Chest X-Ray 04/01/24 05:32 Impression: 1: Bilateral asymmetric airspace disease slightly improved on the left, pneumonia versus edema. Chest X-Ray 04/02/24 06:09 IMPRESSION: 1. Airspace opacities in right lung and left mid and lower lung zones without change, consistent with pneumonia. Chest X-Ray 04/02/24 08:51 IMPRESSION: 1. New central line tip at superior cavoatrial junction. 2. Unchanged airspace opacities in right lung and left mid and lower lung zones, consistent with pneumonia. 3. Small right pleural effusion. Chest X-Ray 04/03/24 06:52 IMPRESSION: 1. Lines and tubes in expected position as detailed above. 2. Persistent opacities in the right mid to lower and left lower lung zones which are concerning for pneumonia. 3. Significant decrease if not resolution of a prior right pleural effusion. Chest X-Ray 04/04/24 07:08 Impression: Bibasilar airspace consolidation. Correlate for pulmonary edema/atelectasis versus pneumonia. Support tubes, as above. Chest X-Ray 04/05/24 06:51 Impression: Moderate pulmonary edema pattern. Correlate clinically for pneumonia. Support tubes, as above. Chest X-Ray 04/06/24 06:30 Impression: Mild pulmonary edema pattern. Support tubes, as above. Chest X-Ray 04/07/24 06:49 Impression: Mild pulmonary edema pattern. Correlate clinically for infection. Support tubes, as above. Chest X-Ray 04/07/24 12:27 Impression: 1: Cardiomegaly with progression of pulmonary edema. Chest X-Ray 04/08/24 06:47 Impression: Probable mild pulmonary edema pattern, right worse than left, versus infection. Findings are stable from prior exam. Support tubes in place, as above. Chest X-Ray 04/09/24 06:05 IMPRESSION: 1. Airspace opacities in right mid and lower lung zones and left perihilar region with worsening on the right, consistent with pneumonia. 2. Worsened small right pleural effusion. Chest X-Ray 04/10/24 08:29 IMPRESSION: 1. Lines and tubes as detailed above. Consider advancement of the endotracheal tube by 4 cm. 2. Decreasing opacities in the right lower lung zone consistent with decreasing small right pleural effusion, atelectasis, pneumonia or some combination thereof. Chest X-Ray 04/11/24 07:21 Impression: Hazy right basilar airspace disease and possible focal lingular airspace disease. Correlate for pulmonary edema versus pneumonia. Support tubes, as above. Chest X-Ray 04/12/24 06:39 Impression: Central congestive change and probable mild bibasilar pulmonary edema. Correlate clinically for pneumonia. Support tubes, as above.
[2024-04-12] MEDS: ceFAZolin 1 GM/NS 50 ML 1 GM/50 ML BAG IVPB (14:10)
--- NOTE | 2024-04-12 14:17 | P.PNAN_ITS ---
Anes - Prog Note Post-Op Date/Time: 04/12/24 14:17 Cardiovascular status: other (anemia) Respiratory status: other (Trached and sedated ) Airway patency: other (Trached) Mental status: other (keira) Post-Op hydration status: other (tube feeding to restart after PEF tube placement ) Vital Signs: Last Vital Signs Temp 99.2 F 04/12/24 12:00 Pulse 85 04/12/24 12:20 Resp 15 04/12/24 12:20 BP 110/78 04/12/24 12:00 Pulse Ox 99 04/12/24 12:00 O2 Del Method Mechanical Ventilation 04/12/24 12:00 O2 Flow Rate 8 03/28/24 12:00 FiO2 35 04/12/24 12:00 Pain Score (VAS): keira I/O: Intake & Output 04/11/24 04/12/24 04/12/24 23:59 07:59 15:59 Intake Total 224.9 213.9 87.2 Output Total 2450 225 Balance -2225.1 -11.1 87.2 Laboratory Tests 04/12/24 04:01 04/12/24 04:01 04/11/24 04/11/24 04/12/24 15:57 20:16 00:16 WBC RBC Hgb Hct MCV MCH MCHC RDW Plt Count MPV Immature Gran % (Auto) Neut % (Auto) Lymph % (Auto) [place] % (Auto) Eos % (Auto) Baso % (Auto) Lymph # (Auto) [place] # (Auto) Eos # (Auto) Baso # (Auto) Abs Immat Gran (auto) Absolute Neuts (auto) Absolute Nucleated RBC Nucleated RBC % Puncture Site ABG pH ABG pCO2 ABG pO2 ABG PO2/FiO2 Ratio ABG HCO3 ABG O2 Saturation ABG O2 Content ABG Base Excess A-a Gradient Oxyhemoglobin Carboxyhemoglobin Methemoglobin Reduced Hemoglobin Total Hemoglobin O2 Delivery Device O2 Liters/Min Minute Volume Vent Rate Vent Mode FiO2 Tidal Volume PEEP Peak Inspir Pressure Pressure Support Sodium Potassium Chloride Carbon Dioxide Anion Gap BUN Creatinine Estim Creat Clear Calc Estimated GFR Glucose POC Capillary Glucose 133 H 158 H 167 H Calcium Phosphorus Magnesium Total Bilirubin AST ALT Alkaline Phosphatase Total Protein Albumin 04/12/24 04/12/24 04/12/24 04:01 05:17 07:44 WBC 11.4 H RBC 3.40 L Hgb 10.0 L Hct 32.1 L MCV 94.4 MCH 29.4 MCHC 31.2 L RDW 17.0 H Plt Count 339 MPV 9.9 Immature Gran % (Auto) 0.4 Neut % (Auto) 91.8 H Lymph % (Auto) 4.4 L [place] % (Auto) 3.2 Eos % (Auto) 0.0 Baso % (Auto) 0.2 Lymph # (Auto) 0.50 L [place] # (Auto) 0.4 Eos # (Auto) 0.0 Baso # (Auto) 0.0 Abs Immat Gran (auto) 0.04 H Absolute Neuts (auto) 10.5 H Absolute Nucleated RBC 0.000 Nucleated RBC % 0.0 Puncture Site Right radial ABG pH 7.461 H ABG pCO2 30.5 L ABG pO2 76.1 L ABG PO2/FiO2 Ratio 2.17 ABG HCO3 21.3 L ABG O2 Saturation 96.1 ABG O2 Content 14.0 L ABG Base Excess -1.8 A-a Gradient 138.0 Oxyhemoglobin 94.3 Carboxyhemoglobin 0.3 Methemoglobin 0.3 Reduced Hemoglobin 5.1 H Total Hemoglobin 10.5 L O2 Delivery Device Ventilator O2 Liters/Min Not Reportable Minute Volume Not Reportable Vent Rate 20 Vent Mode Cmv FiO2 35 Tidal Volume 400 PEEP 10 Peak Inspir Pressure Not Reportable Pressure Support Not Reportable Sodium 139 Potassium 4.2 Chloride 105 Carbon Dioxide 23 Anion Gap 11 BUN 56 H D Creatinine 2.28 H Estim Creat Clear Calc 34 Estimated GFR 21 L Glucose 182 H POC Capillary Glucose 160 H Calcium 8.7 Phosphorus 5.4 H Magnesium 2.4 H Total Bilirubin 1.1 AST 18 ALT 226 H Alkaline Phosphatase 128 H Total Protein 6.0 L Albumin 3.0 L 04/12/24 11:32 WBC RBC Hgb Hct MCV MCH MCHC RDW Plt Count MPV Immature Gran % (Auto) Neut % (Auto) Lymph % (Auto) [place] % (Auto) Eos % (Auto) Baso % (Auto) Lymph # (Auto) [place] # (Auto) Eos # (Auto) Baso # (Auto) Abs Immat Gran (auto) Absolute Neuts (auto) Absolute Nucleated RBC Nucleated RBC % Puncture Site ABG pH ABG pCO2 ABG pO2 ABG PO2/FiO2 Ratio ABG HCO3 ABG O2 Saturation ABG O2 Content ABG Base Excess A-a Gradient Oxyhemoglobin Carboxyhemoglobin Methemoglobin Reduced Hemoglobin Total Hemoglobin O2 Delivery Device O2 Liters/Min Minute Volume Vent Rate Vent Mode FiO2 Tidal Volume PEEP Peak Inspir Pressure Pressure Support Sodium Potassium Chloride Carbon Dioxide Anion Gap BUN Creatinine Estim Creat Clear Calc Estimated GFR Glucose POC Capillary Glucose 165 H Calcium Phosphorus Magnesium Total Bilirubin AST ALT Alkaline Phosphatase Total Protein Albumin Post-procedural complaints: none Patient Feedback: Patient satisfied with anesthetic care.
[2024-04-12] MEDS: MIDAZOLAM HCL (*CRX) 2 MG/2 ML VIAL 4 MG (14:19)
[2024-04-12] MEDS: fentaNYL CITRATE INJ (*CRX) 100 MCG/2 ML VIAL 200 MCG (14:19)
[2024-04-12] MEDS: MIDAZOLAM HCL (*CRX) 2 MG/2 ML VIAL (14:25)
[2024-04-12] MEDS: LIDOCAINE 1% PF INJ 5 ML VIAL 2.5 ML INFILTRATE (14:44)
[2024-04-12 17:01] LABS: Glucose Point of Care 145 mg/dl (65-105)
[2024-04-12] MEDS: SENNA/DOCUSATE SODIUM TABLET 1 TAB PO (20:05)
[2024-04-12 20:07] LABS: Glucose Point of Care 161 mg/dl (65-105)
[2024-04-12] MEDS: ACETAMINOPHEN 325 MG TABLET 650 MG PO (20:33)
[2024-04-13] VITALS (41 sets, daily range): BP systolic 91–137; BP diastolic 66–90; PULSE 104–149; RESP 20–25; TEMP 36.3–37.7; O2SAT 89–99
[2024-04-13] MEDS: METOPROLOL TARTRATE 12.5 MG TABLET PO ×2 (00:32→06:11)
[2024-04-13 01:00] LABS: Glucose Point of Care 160 mg/dl (65-105)
[2024-04-13 04:44] LABS: Glucose Point of Care 163 mg/dl (65-105)
[2024-04-13 04:47] LABS: Basophils Percent Auto 0.2 % (0.2-1.2); Eosinophils Percent Auto 0.2 % (0-4.4); Hematocrit 30.3 % (37.0-47.0); Hemoglobin 9.7 g/dL (12.0-15.0); Immature Granulocyte Absolute 0.05 K/mm3 (0.00-0.031); Immature Granulocyte Percent A 0.5 % (0-0.5); Lymphocytes Absolute Auto 0.32 K/mm3 (0.9-3.2); Lymphocytes Percent Auto 3.1 % (18.3-44.2); Mean Corpuscular Hemoglobin 30.3 pg (26-34); Mean Corpuscular Volume 94.7 fl (80-100); Mean Platelet Volume 9.7 fl (7.4-10.4); Monocytes Absolute Auto 0.5 K/mm3 (0.1-0.6); Monocytes Percent Auto 4.7 % (2.6-8.5); Neutrophils Absolute Auto 9.4 K/mm3 (1.3-6.7); Neutrophils Percent Auto 91.3 % (45.5-73.1); Platelet Count Result 313 k/mm3 (150-375); Red Cell Distribution Width 16.8 % (11.5-14.5); White Blood Count 10.3 K/mm3 (4.5-10.0)
[2024-04-13 05:04] LABS: Alanine Aminotransferase 142 U/L (6-35); Albumin Level 2.8 g/dL (3.5-5.1); Alkaline Phosphatase 124 U/L (38-126); Anion Gap 12 mmol/L (4-12); Aspartate Amino Transferase 23 U/L (14-36); Blood Urea Nitrogen 72 mg/dL (7-17); Calcium 8.6 mg/dL (8.4-10.2); Carbon Dioxide 23 mmol/L (22-30); Chloride 106 mmol/L (98-107); Estimated CRCL calculation 29 ml/min; Estimated Glomerular Filt Rate 18; Glucose 156 mg/dL (65-110); Magnesium 2.4 mg/dL (1.6-2.3); Phosphorus 5.9 mg/dL (2.5-4.5); Potassium 3.8 mmol/L (3.4-5.0); Sodium 141 mmol/L (137-145)
[2024-04-13 05:36] LABS: Alveolar/Arterial O2 Gradient 232.8 mmHg; Base Excess ABG -3.1 mEq/l (+/-2.0); Carboxyhemoglobin 0.3 % THb (0-2.0); Fractional Inspired Oxygen 50 %; HCO3 ABG 20.1 mEq/l (22.0-26.0); Methemoglobin ABG 0.3 %THb (0-1.5); Oxygen Content ABG 14.7 %vol (16.0-22.0); Oxygen Saturation ABG 97.3 % (95.0-100.0); Oxyhemoglobin 95.8 % THb (90.0-100.0); PCO2 ABG 29.6 mmHg (35.0-45.0); PO2 ABG 90.4 mmHg (80.0-100.0); PO2 FiO2 Ratio Arterial Blood 1.81 %; Reduced Hemoglobin 3.6 %THb (0-5.0); Site Drawn RIGHT RADIAL; Total Hemoglobin 10.8 g/dL (12.0-18.0); pH ABG 7.449 (7.350-7.450)
[2024-04-13 05:37] LABS: Arterial Blood Gas PEEP 8 cmH2O; Arterial Blood Gas Tidal Volume 400 ml; Arterial Blood Gas Vent Mode CMV; Arterial Blood Gas Ventilator rate 20 /MIN; Device VENTILATOR; Modified Allen's Test Pass
[2024-04-13] MEDS: CENTRAL LINE FLUSH 10 ML IV PUSH ×3 (06:11→22:03)
[2024-04-13] MEDS: MIDAZOLAM HCL (*CRX) 2 MG/2 ML VIAL IV PUSH ×3 (06:27→19:23)
[2024-04-13 07:52] LABS: Glucose Point of Care 162 mg/dl (65-105)
[2024-04-13] MEDS: PANTOPRAZOLE SODIUM IV 40 MG VIAL IV PUSH (08:16)
[2024-04-13] MEDS: AMIODARONE HCL 200 MG TABLET 400 MG PO (08:48)
[2024-04-13] MEDS: CYANOCOBALAMIN 1,000 MCG TABLET 1000 MCG PO ×2 (08:48→17:16)
[2024-04-13] MEDS: METOPROLOL TARTRATE 25 MG TABLET PO ×2 (08:48→22:01)
[2024-04-13] MEDS: DOCOSANOL 10% CREAM 2 GM 1 APPLIC TOPICAL ×5 (09:00→22:02)
[2024-04-13] MEDS: EPOETIN ALFA-EPBX 10,000 UNITS/ML VIAL 10000 UNITS IV PUSH (10:27)
--- NOTE | 2024-04-13 11:29 | PCFNICU ---
ICU Rounding Note: Pt current nutrition is Nepro at 40 ml/hr. Last recorded weight is 145 kg, down from 158.9 kg on admit. Bowel Motility: FMS Labs Reviewed:Glu 156, BUN 72, GFR 18, Mg 2.4, Alb 2.8 Meds Noted:Lantus, NovoLog, Protonix, Eliquis, Senokot Skin: WNL Additional Notes: Patient current with Trach 04/11, PEG 04/12. Dialysis today. Tunneled Cath planned after dialysis. Tube feedings are being tolerated of Nepro at 40 ml/hr and flush of 30 ml q 4 hours. Total Nutrition: 97% kcal needs at 11 kcal/kg and 88% protein needs at 1.2-1.4 gm/kg of IBW. Agree with diet orders. Plans for LTAC at discharge. Following daily in ICU rounds. Will monitor weight, labs, skin, diet orders, meds, tube feeding tolerance every Thursday and Thursday.
--- NOTE | 2024-04-13 11:38 | WPDGIPROGNO ---
Progress Note: A&P Assessment and Plan (1) Malnutrition: Code(s): E46 - Unspecified protein-calorie malnutrition Status: Acute Assessment and Plan: s/p peg placement and tolerating tube feeding will follow as needed (2) Acute hypoxic respiratory failure: Code(s): J96.01 - Acute respiratory failure with hypoxia Status: Acute Assessment and Plan: s/p trach by business education teacher (3) RSV (respiratory syncytial virus pneumonia): Code(s): J12.1 - Respiratory syncytial virus pneumonia Status: Acute (4) VINCENT (acute kidney injury): Code(s): N17.9 - Acute kidney failure, unspecified Status: Acute Assessment and Plan: on dialysis support (5) Sepsis: Code(s): A41.9 - Sepsis, unspecified organism Status: Acute (6) Atrial fibrillation with RVR: Code(s): I48.91 - Unspecified atrial fibrillation Status: Acute Subjective Date/time seen: 04/13/24 11:38 Interval history: staff accountant reported she tolerated tube feeding, now npo because will get a procedure currently on dialysis Review of Systems Review of Systems: All systems reviewed & are unremarkable except as noted in HPI and below Exam Const: General: alert and other (follows commands, awake on ventilator with tracheostomy) Nutritional Appearance: obese Limitations: physical limitations HENMT: Head: normal to inspection Other: oral lesions Eyes: General: appearance normal, both eyes and all related structures Neck: Neck: normal visual inspection and tracheostomy present Resp: Effort & Inspection: symmetric chest movement and other (intubated on ventilator) Auscultation: clear to auscultation bilaterally Cardio: Rate: regular rate Rhythm: abnormal rhythm irregularly irregular GI: Inspection: non-distended GI Palp: Yes Soft to palpation and No Tenderness to palpation present (GI) (no grimacing with palpation) Auscultation: normal bowel sounds Other: peg in place Urinary Catheter: Urinary Catheter: patent and draining Skin: General skin exam: normal color Neuro: General: Unable to assess gait and other (follows commands and nods to yes/no questions) Extrem: General: normal to inspection Psych: Insight: Limited insight present (Psych) Judgement: Limited judgement present (Psych) Objective Data Vital Signs Vital Signs: Vital Signs - 24 hr 04/12/24 12:00 04/12/24 12:00 04/12/24 12:00 Temperature 99.2 F Pulse Rate 85 93 93 Respiratory Rate 17 Blood Pressure 110/78 110/78 Pulse Oximetry 99 Oxygen Delivery Fraction of Inspired Oxygen 04/12/24 12:00 04/12/24 12:00 04/12/24 12:20 Temperature Pulse Rate 85 Respiratory Rate 15 Blood Pressure Pulse Oximetry Oxygen Delivery Mechanical Ventilation Fraction of Inspired Oxygen 35 35 04/12/24 14:00 04/12/24 14:00 04/12/24 14:00 Temperature Pulse Rate 98 98 98 Respiratory Rate 13 Blood Pressure 99/58 L Pulse Oximetry Oxygen Delivery Fraction of Inspired Oxygen 04/12/24 14:00 04/12/24 14:55 04/12/24 16:00 Temperature 99.0 F Pulse Rate 102 H 78 103 H Respiratory Rate 15 Blood Pressure 109/82 Pulse Oximetry 97 100 Oxygen Delivery Mechanical Ventilation Fraction of Inspired Oxygen 70 04/12/24 16:00 04/12/24 16:00 04/12/24 16:00 Temperature Pulse Rate 101 H 101 H Respiratory Rate 19 Blood Pressure 120/107 H Pulse Oximetry Oxygen Delivery Mechanical Ventilation Fraction of Inspired Oxygen 50 04/12/24 16:00 04/12/24 16:00 04/12/24 16:22 Temperature 98.7 F Pulse Rate 96 116 H Respiratory Rate 20 Blood Pressure 120/107 H Pulse Oximetry 99 98 Oxygen Delivery Mechanical Ventilation Fraction of Inspired Oxygen 50 50 04/12/24 18:00 04/12/24 18:00 04/12/24 18:00 Temperature Pulse Rate 111 H 111 H 111 H Respiratory Rate 20 Blood Pressure 138/100 H Pulse Oximetry Oxygen Delivery Fraction of Inspired Oxygen 04/12/24 18:00 04/12/24 20:00 04/12/24 20:00 Temperature 98.6 F 99.0 F Pulse Rate 111 H 127 H 127 H Respiratory Rate 20 19 20 Blood Pressure 138/100 H 119/97 H Pulse Oximetry 99 95 Oxygen Delivery Fraction of Inspired Oxygen 04/12/24 20:00 04/12/24 20:00 04/12/24 20:00 Temperature Pulse Rate 135 H Respiratory Rate Blood Pressure Pulse Oximetry Oxygen Delivery Mechanical Ventilation Fraction of Inspired Oxygen 50 50 04/12/24 20:00 04/12/24 21:00 04/12/24 22:00 Temperature 99.3 F Pulse Rate 124 H 117 H 124 H Respiratory Rate 20 Blood Pressure 119/97 H 116/79 Pulse Oximetry 98 97 Oxygen Delivery Mechanical Ventilation Fraction of Inspired Oxygen 50 04/12/24 22:00 04/12/24 22:00 04/12/24 22:00 Temperature Pulse Rate 124 H 124 H 124 H Respiratory Rate 20 Blood Pressure 116/79 Pulse Oximetry Oxygen Delivery Fraction of Inspired Oxygen 04/12/24 23:18 04/13/24 00:00 04/13/24 00:00 Temperature 99.4 F Pulse Rate 108 H 125 H 125 H Respiratory Rate 20 20 Blood Pressure 121/76 Pulse Oximetry 97 97 Oxygen Delivery Mechanical Ventilation Fraction of Inspired Oxygen 50 04/13/24 00:00 04/13/24 00:00 04/13/24 00:00 Temperature Pulse Rate 115 H Respiratory Rate Blood Pressure Pulse Oximetry Oxygen Delivery Mechanical Ventilation Fraction of Inspired Oxygen 50 50 04/13/24 00:00 04/13/24 00:32 04/13/24 01:49 Temperature Pulse Rate 121 H 131 H 115 H Respiratory Rate Blood Pressure 121/76 Pulse Oximetry 97 Oxygen Delivery Mechanical Ventilation Fraction of Inspired Oxygen 50 04/13/24 02:00 04/13/24 02:00 04/13/24 02:00 Temperature Pulse Rate 109 H 109 H 109 H Respiratory Rate 20 Blood Pressure 129/85 Pulse Oximetry Oxygen Delivery Fraction of Inspired Oxygen 04/13/24 02:00 04/13/24 04:00 04/13/24 04:00 Temperature 99.4 F 99.0 F Pulse Rate 109 H 122 H Respiratory Rate 20 20 Blood Pressure 129/85 131/79 Pulse Oximetry 99 96 Oxygen Delivery Fraction of Inspired Oxygen 50 04/13/24 04:00 04/13/24 04:00 04/13/24 04:00 Temperature Pulse Rate 127 H 123 H Respiratory Rate 20 Blood Pressure Pulse Oximetry Oxygen Delivery Mechanical Ventilation Fraction of Inspired Oxygen 50 04/13/24 04:00 04/13/24 05:30 04/13/24 05:30 Temperature Pulse Rate 123 H 120 H Respiratory Rate Blood Pressure 131/79 Pulse Oximetry 97 Oxygen Delivery Mechanical Ventilation Fraction of Inspired Oxygen 50 40 04/13/24 05:54 04/13/24 06:00 04/13/24 06:00 Temperature Pulse Rate 120 H 124 H 124 H Respiratory Rate 20 Blood Pressure 137/77 Pulse Oximetry 95 Oxygen Delivery Mechanical Ventilation Fraction of Inspired Oxygen 40 04/13/24 06:00 04/13/24 06:00 04/13/24 06:11 Temperature 98.8 F Pulse Rate 124 H 124 H 126 H Respiratory Rate 20 Blood Pressure 137/77 Pulse Oximetry 95 Oxygen Delivery Fraction of Inspired Oxygen 04/13/24 08:00 04/13/24 08:00 04/13/24 08:00 Temperature 98.9 F Pulse Rate 112 H 112 H 112 H Respiratory Rate 21 H 21 H Blood Pressure 121/87 121/87 Pulse Oximetry 96 Oxygen Delivery Fraction of Inspired Oxygen 04/13/24 08:00 04/13/24 08:00 04/13/24 08:00 Temperature Pulse Rate 105 H Respiratory Rate Blood Pressure Pulse Oximetry Oxygen Delivery Mechanical Ventilation Fraction of Inspired Oxygen 40 40 04/13/24 08:30 04/13/24 08:30 04/13/24 08:42 Temperature 99 F Pulse Rate 113 H 104 H Respiratory Rate 22 H Blood Pressure 121/87 112/72 Pulse Oximetry 93 Oxygen Delivery Fraction of Inspired Oxygen 40 04/13/24 08:47 04/13/24 09:00 04/13/24 09:15 Temperature Pulse Rate 104 H 145 H 124 H Respiratory Rate Blood Pressure 136/79 123/77 Pulse Oximetry 97 Oxygen Delivery Mechanical Ventilation Fraction of Inspired Oxygen 40 04/13/24 09:30 04/13/24 09:45 04/13/24 10:00 Temperature Pulse Rate 116 H 110 H 107 H Respiratory Rate Blood Pressure 111/74 119/76 118/88 Pulse Oximetry Oxygen Delivery Fraction of Inspired Oxygen 04/13/24 10:00 04/13/24 10:00 04/13/24 10:00 Temperature 98.9 F Pulse Rate 115 H 115 H 113 H Respiratory Rate 23 H 24 H Blood Pressure 123/90 118/88 Pulse Oximetry 93 Oxygen Delivery Fraction of Inspired Oxygen 04/13/24 10:00 04/13/24 10:15 04/13/24 10:30 Temperature Pulse Rate 115 H 108 H 122 H Respiratory Rate Blood Pressure 123/90 111/76 Pulse Oximetry Oxygen Delivery Fraction of Inspired Oxygen 04/13/24 10:45 04/13/24 11:00 04/13/24 11:15 Temperature Pulse Rate 121 H 127 H 130 H Respiratory Rate Blood Pressure 91/71 L 99/73 L 101/74 Pulse Oximetry Oxygen Delivery Fraction of Inspired Oxygen 04/13/24 11:30 Temperature Pulse Rate 122 H Respiratory Rate Blood Pressure 100/68 Pulse Oximetry Oxygen Delivery Fraction of Inspired Oxygen Intake/Output Intake/Output: Intake & Output 04/10/24 04/11/24 04/12/24 04/13/24 23:59 23:59 23:59 23:59 Intake Total 1524.9 855.4 301.1 60 Output Total 1000 3600 575 475 Balance 524.9 -2744.6 -273.9 -415 Meds/Results Medications: Active Medications Generic Name Dose Route Start Last Admin Trade Name Freq PRN Reason Stop Dose Admin Acetaminophen 650 mg 03/27/24 14:41 04/12/24 20:33 Acetaminophen 325 Mg Tablet PO 650 mg Q4H PRN Administration Mild Pain (1-3) or Fever Alteplase, Recombinant 2 mg 04/06/24 03:11 04/06/24 03:22 Alteplase 2 Mg Vial (Cathflo) IV PUSH 2 mg ONCE PRN Administration Line Occlusion Amiodarone HCl 400 mg 04/01/24 10:40 04/13/24 08:48 Amiodarone Hcl 200 Mg Tablet PO 400 mg DAILY LAVERNE Administration Apixaban 5 mg 04/13/24 21:00 Apixaban 5 Mg Tablet PO Q12HR LAVERNE Bisacodyl 10 mg 04/10/24 02:20 04/10/24 06:21 Bisacodyl 10 Mg Suppository RECTAL 10 mg QAM PRN Administration Constipation Cyanocobalamin 1,000 mcg 03/27/24 17:00 04/13/24 08:48 Cyanocobalamin 1,000 Mcg Tablet PO 1,000 mcg BID LAVERNE Administration Dextrose 12.5 gm 03/27/24 08:57 Dextrose 50% 25 Gm/50 Ml Syringe IV PUSH PRN PRN Hypoglycemia Protocol Docosanol 1 applic 04/09/24 09:00 04/13/24 09:00 Docosanol 10% Cream 2 Gm TOPICAL 1 applic 5 TIMES DAILY LAVERNE Administration Epoetin Marck-epbx 10,000 units 04/13/24 19:08 04/13/24 10:27 Epoetin Marck-Epbx 10,000 Units/Ml Vial IV PUSH 04/13/24 19:09 10,000 units ONCE ONE Administration Glucagon 1 mg 03/27/24 08:57 Glucagon For Inj 1 Mg Vial IM PRN PRN Hypoglycemia Protocol Glucose 15 gm 03/27/24 08:57 Glucose Oral Gel 15 Gm Of Glucse In 37.5 Gm Tube PO PRN PRN Hypoglycemia Protocol Dextrose 1,000 mls @ 100 mls/hr 03/27/24 08:57 Dextrose 5% 1,000 Ml IVPB PRN PRN Hypoglycemia Protocol Albumin Human 50 mls @ 999 mls/hr 04/03/24 09:19 04/07/24 15:05 Albutein IVPB 05/03/24 09:18 100 mls/hr Q10M PRN Administration HYPOTENSION Dexmedetomidine HCl 400 mcg in 100 mls @ 0 mls/hr 04/08/24 09:40 04/13/24 10:00 Precedex 400 Mcg/100 Ml IV CONT 0 mcg/kg/hr .Q0M LAVERNE 0 mls/hr Titration Protocol 0 MCG/KG/HR Norepinephrine Bitartrate 8 mg in 250 mls @ 0 mls/hr 04/11/24 16:50 04/13/24 10:00 Levophed 8 Mg/D5w 250 Ml IV CONT 0 mcg/min .Q0M LAVERNE 0 mls/hr Titration Protocol Insulin Aspart 4 - 8 units 03/29/24 13:00 04/13/24 08:17 Insulin Aspart (*Bkc) 100 Units/Ml SUB-Q Not Given Q4HR [facility] Protocol Insulin Glargine 60 units 04/01/24 09:00 04/08/24 08:20 Insulin Glargine (*Bkc) 100 Units/Ml SUB-Q Not Given Q12HR [facility] Metoprolol Tartrate 5 mg 04/12/24 00:00 04/12/24 06:14 Metoprolol Tartrate Inj 5 Mg/5 Ml Vial IV PUSH Not Given Q6HR [facility] Metoprolol Tartrate 25 mg 04/13/24 08:15 04/13/24 08:48 Metoprolol Tartrate 25 Mg Tablet PO 25 mg Q12HR [facility] Administration Midazolam HCl 2 mg 04/11/24 16:46 04/13/24 06:27 Midazolam Hcl (*Crx) 2 Mg/2 Ml Vial IV PUSH 2 mg Q2H PRN Administration Ventilator Asynchrony Multi-Ingred Cream/Lotion/Oil/Oint 1 applic 03/28/24 21:00 04/13/24 08:16 Mineral Oil/White Petrolatum Ointment EACH EYE Not Given Q12HR [facility]AVER[facility] Pantoprazole Sodium 40 mg 03/29/24 09:00 04/13/24 08:16 Pantoprazole Sodium Iv 40 Mg Vial IV PUSH 40 mg DAILY LAVERNE Administration Polyethylene Glycol 17 gm 04/12/24 07:50 Polyethylene Glycol 3350 17 Gm Powd.Pack PO QAM PRN Constipation Rosuvastatin Calcium 20 mg 03/28/24 09:00 03/31/24 09:28 Rosuvastatin 20 Mg Tablet PO Not Given DAILY LAVERNE Senna/Docusate Sodium 1 tab 04/07/24 21:00 04/12/24 20:05 Senna/Docusate Sodium Tablet PO 1 tab HS LAVERNE Administration Sodium Chloride 10 ml 03/28/24 22:00 04/13/24 06:11 Central Line Flush IV PUSH 10 ml Q8HR L[facility]ER[facility] Administration Sodium Chloride 10 ml 03/28/24 16:14 Central Line Flush IV PUSH PRN PRN with TPN bag changes Sodium Chloride 20 ml 03/28/24 16:14 Central Line Flush IV PUSH PRN PRN after blood draws Radiology Results: ITS Impressions Chest CTA 03/27/24 06:41 Impression: No evidence of pulmonary embolus, aortic dissection, or aortic aneurysm. Extensive right lower lobe pneumonia. Probable mildly prominent reactive lymphadenopathy the right axilla and subcarinal region. Head CT 03/28/24 22:59 IMPRESSION: 1. Normal brain. Abdomen X-Ray 03/29/24 08:59 IMPRESSION: 1. Lines and tubes in expected positions. 2. Diffuse bilateral lung disease, right greater than left, consistent with multifocal pneumonia. Renal Ultrasound 03/31/24 15:34 IMPRESSION: No hydronephrosis. Perinephric fluid collection adjacent to the left lower pole. Abdomen Ultrasound 03/31/24 15:39 IMPRESSION: Status post cholecystectomy. Pancreas poorly visualized. Otherwise normal abdominal ultrasound findings. Chest X-Ray 04/13/24 06:09 Impression: Mild to moderate probable pulmonary edema pattern. Correlate clinically for pneumonia. Minimal right pleural effusion. Support lines, as above. Labs Labs: Laboratory Results - last 24 hr 04/12/24 04/12/24 04/13/24 16:58 20:04 00:35 WBC RBC Hgb Hct MCV MCH MCHC RDW Plt Count MPV Immature Gran % (Auto) Neut % (Auto) Lymph % (Auto) [place] % (Auto) Eos % (Auto) Baso % (Auto) Lymph # (Auto) [place] # (Auto) Eos # (Auto) Baso # (Auto) Abs Immat Gran (auto) Absolute Neuts (auto) Absolute Nucleated RBC Nucleated RBC % Puncture Site ABG pH ABG pCO2 ABG pO2 ABG PO2/FiO2 Ratio ABG HCO3 ABG O2 Saturation ABG O2 Content ABG Base Excess A-a Gradient Oxyhemoglobin Carboxyhemoglobin Methemoglobin Reduced Hemoglobin Total Hemoglobin O2 Delivery Device O2 Liters/Min Minute Volume Vent Rate Vent Mode FiO2 Tidal Volume PEEP Peak Inspir Pressure Pressure Support Sodium Potassium Chloride Carbon Dioxide Anion Gap BUN Creatinine Estim Creat Clear Calc Estimated GFR Glucose POC Capillary Glucose 145 H 161 H 160 H Calcium Phosphorus Magnesium Total Bilirubin AST ALT Alkaline Phosphatase Total Protein Albumin 04/13/24 04/13/24 04/13/24 04:32 04:34 05:20 WBC 10.3 H RBC 3.20 L Hgb 9.7 L Hct 30.3 L MCV 94.7 MCH 30.3 MCHC 32.0 RDW 16.8 H Plt Count 313 MPV 9.7 Immature Gran % (Auto) 0.5 Neut % (Auto) 91.3 H Lymph % (Auto) 3.1 L [place] % (Auto) 4.7 Eos % (Auto) 0.2 Baso % (Auto) 0.2 Lymph # (Auto) 0.32 L [place] # (Auto) 0.5 Eos # (Auto) 0.0 Baso # (Auto) 0.0 Abs Immat Gran (auto) 0.05 H Absolute Neuts (auto) 9.4 H Absolute Nucleated RBC 0.000 Nucleated RBC % 0.0 Puncture Site Right radial ABG pH 7.449 ABG pCO2 29.6 L ABG pO2 90.4 ABG PO2/FiO2 Ratio 1.81 ABG HCO3 20.1 L ABG O2 Saturation 97.3 ABG O2 Content 14.7 L ABG Base Excess -3.1 A-a Gradient 232.8 Oxyhemoglobin 95.8 Carboxyhemoglobin 0.3 Methemoglobin 0.3 Reduced Hemoglobin 3.6 Total Hemoglobin 10.8 L O2 Delivery Device Ventilator O2 Liters/Min Not Reportable Minute Volume Not Reportable Vent Rate 20 Vent Mode Cmv FiO2 50 Tidal Volume 400 PEEP 8 Peak Inspir Pressure Not Reportable Pressure Support Not Reportable Sodium 141 Potassium 3.8 Chloride 106 Carbon Dioxide 23 Anion Gap 12 BUN 72 H D Creatinine 2.60 H Estim Creat Clear Calc 29 Estimated GFR 18 L Glucose 156 H POC Capillary Glucose 163 H Calcium 8.6 Phosphorus 5.9 H Magnesium 2.4 H Total Bilirubin 1.0 AST 23 ALT 142 H Alkaline Phosphatase 124 Total Protein 6.0 L Albumin 2.8 L 04/13/24 07:41 WBC RBC Hgb Hct MCV MCH MCHC RDW Plt Count MPV Immature Gran % (Auto) Neut % (Auto) Lymph % (Auto) [place] % (Auto) Eos % (Auto) Baso % (Auto) Lymph # (Auto) [place] # (Auto) Eos # (Auto) Baso # (Auto) Abs Immat Gran (auto) Absolute Neuts (auto) Absolute Nucleated RBC Nucleated RBC % Puncture Site ABG pH ABG pCO2 ABG pO2 ABG PO2/FiO2 Ratio ABG HCO3 ABG O2 Saturation ABG O2 Content ABG Base Excess A-a Gradient Oxyhemoglobin Carboxyhemoglobin Methemoglobin Reduced Hemoglobin Total Hemoglobin O2 Delivery Device O2 Liters/Min Minute Volume Vent Rate Vent Mode FiO2 Tidal Volume PEEP Peak Inspir Pressure Pressure Support Sodium Potassium Chloride Carbon Dioxide Anion Gap BUN Creatinine Estim Creat Clear Calc Estimated GFR Glucose POC Capillary Glucose 162 H Calcium Phosphorus Magnesium Total Bilirubin AST ALT Alkaline Phosphatase Total Protein Albumin
--- NOTE | 2024-04-13 11:44 | WPDHPUPDATE1 ---
History and Physical Update Update Date/Time: 04/13/24 11:44 History and Physical has been reviewed, including an updated exam of the patient. There are NO changes in the patient's condition. Risks, benefits, and alternatives have been discussed and questions answered. Patient agrees to proceed with procedure.
--- NOTE | 2024-04-13 11:50 | P.PNNP_ITS ---
Progress Note: A&P Assessment and Plan (1) VINCENT (acute kidney injury): Code(s): N17.9 - Acute kidney failure, unspecified Status: Acute Assessment and Plan: * as noted by trend of labs since admission * normal creatinine at baseline and on admission * multifactorial etiology: * hemodynamic instability/shock * infection/sepsis (pneumonia + RSV) * ARB + HCTZ use prior to admission * contrast (CTA of chest on 03/27) * hypoxia * afib with RVR * prerenal factors (?) * evaluation to date noted: * renal ultrasound without hydro * urine electrolytes prerenal * urine eosinophils negative * CPK normal * initiated on [employer]/dialysis on 04/02/24 * HD today and continue M/W/F schedule for now * making urine but BUN/creatinine continues to rise w/o dialytic support (and still with pulmonary edema on CXR) * tunneled HD catheter placement planned today * follow trend of repeat labs and UOP to assess for potential renal recovery (2) Acute hypoxic respiratory failure: Code(s): J96.01 - Acute respiratory failure with hypoxia Status: Acute Assessment and Plan: * seconeary to pneumonia, RSV, and possible CHF * CTA of chest noted: * no evidence of pulmonary embolus, aortic dissection, or aortic aneurysm * extensive right lower lobe pneumonia * probable mildly prominent reactive lymphadenopathy the right axilla and subcarinal region * emergently intubated 03/28 * completed course of steroids * follow respiratory status * s/p tracheostomy (on 04/11) for prolonged ventilator weaning * weaning as tolerated (3) Septic shock: Code(s): A41.9 - Sepsis, unspecified organism; R65.21 - Severe sepsis with septic shock Status: Acute Assessment and Plan: * resolved * secondary to extensive pneumonia +/- RSV * completed course antibiotics * cultures negative to date * off pressors currently (4) Atrial fibrillation with RVR: Code(s): I48.91 - Unspecified atrial fibrillation Status: Acute Assessment and Plan: * rate control strategy * on Eliquis * Echo results noted * Cardiology following (5) Anemia: Code(s): D64.9 - Anemia, unspecified Status: Acute Assessment and Plan: * likely a manifestation of VINCENT and acute illness * on DANG with dialysis * follow trend of H/H (6) Community acquired pneumonia: Code(s): J18.9 - Pneumonia, unspecified organism Status: Acute Assessment and Plan: * as noted by admission imaging * culture data noted (negative to date) * completed course of antibiotics (7) Elevated liver enzymes: Code(s): R74.8 - Abnormal levels of other serum enzymes Status: Acute Assessment and Plan: * thought to be secondary to shock liver * statin on hold * liver enzymes fluctuating * follow trend (8) Diabetes: Code(s): E11.9 - Type 2 diabetes mellitus without complications Status: Chronic Assessment and Plan: * follow accu-cheks * glycemic control per hospitalist/technician's helper Will continue to follow. L Subjective Date/time seen: 04/13/24 11:50 Interval history: Follow-up for acute kidney injury/acute renal failure requiring hemodialysis. Tolerating dialysis treatment at the time of my visit (seen on HD at 11:40AM); s/p PEG tube placement for nutritional support yesterday and tolerated this procedure well; able to follow commands and nod to simple questions; still making some urine; remains hemodynamically stable at this time; noted plans for tunneled HD catheter placement this afternoon. Exam 2 Narrative: General: elderly but WD/WN female trached/sedated and on mechanical ventilation Heart: IRRR, tachycardic, normal S1 and S2; no rub Lungs: coarse breath sounds; some crackles at bases Abdomen: soft, nontender, nondistended, positive bowel sounds Extremities: no cyanosis or clubbing; trace edema Skin: warm and dry Objective Data Vital Signs Vital Signs: Vital Signs Temp Pulse Resp BP Pulse Ox O2 Del Method FiO2 04/13/24 11:45 129 H 107/71 04/13/24 11:30 122 H 100/68 04/13/24 11:15 130 H 101/74 04/13/24 11:00 127 H 99/73 L 04/13/24 10:45 121 H 91/71 L 04/13/24 10:30 122 H 111/76 04/13/24 10:25 113 H 93 Mechanical Ventilation 40 04/13/24 10:15 108 H 123/90 04/13/24 10:00 115 H 04/13/24 10:00 98.9 F 113 H 24 H 118/88 93 04/13/24 10:00 115 H 123/90 04/13/24 10:00 115 H 23 H 04/13/24 10:00 107 H 118/88 04/13/24 09:45 110 H 119/76 04/13/24 09:30 116 H 111/74 04/13/24 09:15 124 H 123/77 04/13/24 09:00 145 H 136/79 04/13/24 08:47 104 H 97 Mechanical Ventilation 40 04/13/24 08:42 104 H 112/72 04/13/24 08:30 40 04/13/24 08:30 99 F 113 H 22 H 121/87 93 04/13/24 08:00 Mechanical Ventilation 40 04/13/24 08:00 40 04/13/24 08:00 105 H 04/13/24 08:00 112 H 121/87 04/13/24 08:00 112 H 21 H 04/13/24 08:00 98.9 F 112 H 21 H 121/87 96 04/13/24 06:11 126 H 04/13/24 06:00 98.8 F 124 H 20 137/77 95 04/13/24 06:00 124 H 04/13/24 06:00 124 H 137/77 04/13/24 06:00 124 H 20 04/13/24 05:54 120 H 95 Mechanical Ventilation 40 04/13/24 05:30 40 04/13/24 05:30 120 H 97 Mechanical Ventilation 50 04/13/24 04:00 123 H 131/79 04/13/24 04:00 123 H 20 04/13/24 04:00 127 H 04/13/24 04:00 Mechanical Ventilation 50 04/13/24 04:00 99.0 F 122 H 20 131/79 96 04/13/24 04:00 50 04/13/24 02:00 99.4 F 109 H 20 129/85 99 04/13/24 02:00 109 H 04/13/24 02:00 109 H 129/85 04/13/24 02:00 109 H 20 04/13/24 01:49 115 H 97 Mechanical Ventilation 50 04/13/24 00:32 131 H 04/13/24 00:00 121 H 121/76 04/13/24 00:00 115 H 04/13/24 00:00 Mechanical Ventilation 50 04/13/24 00:00 50 04/13/24 00:00 99.4 F 125 H 20 121/76 97 02/12/25 00:00 125 H 20 04/12/24 23:18 108 H 97 Mechanical Ventilation 50 04/12/24 22:00 124 H 116/79 04/12/24 22:00 124 H 20 04/12/24 22:00 124 H 04/12/24 22:00 99.3 F 124 H 20 116/79 97 04/12/24 21:00 117 H 98 Mechanical Ventilation 50 04/12/24 20:00 124 H 119/97 H 04/12/24 20:00 135 H 04/12/24 20:00 Mechanical Ventilation 50 04/12/24 20:00 50 04/12/24 20:00 99.0 F 127 H 20 119/97 H 95 04/12/24 20:00 127 H 19 04/12/24 18:00 98.6 F 111 H 20 138/100 H 99 04/12/24 18:00 111 H 04/12/24 18:00 111 H 20 04/12/24 18:00 111 H 138/100 H 04/12/24 16:22 116 H 98 Mechanical Ventilation 50 04/12/24 16:00 98.7 F 96 20 120/107 H 99 04/12/24 16:00 50 04/12/24 16:00 Mechanical Ventilation 50 04/12/24 16:00 101 H 120/107 H 04/12/24 16:00 101 H 19 04/12/24 16:00 103 H Intake/Output Intake/Output: Intake & Output 04/10/24 04/11/24 04/12/24 04/13/24 23:59 23:59 23:59 23:59 Intake Total 1524.9 855.4 301.1 60 Output Total 1000 3600 575 2875 Balance 524.9 -2744.6 -273.9 -2815 Meds/Results Medications: Active Medications Generic Name Dose Route Start Last Admin Trade Name Freq PRN Reason Stop Dose Admin Acetaminophen 650 mg 03/27/24 14:41 04/12/24 20:33 Acetaminophen 325 Mg Tablet PO 650 mg Q4H PRN Administration Mild Pain (1-3) or Fever Alteplase, Recombinant 2 mg 04/06/24 03:11 04/06/24 03:22 Alteplase 2 Mg Vial (Cathflo) IV PUSH 2 mg ONCE PRN Administration Line Occlusion Amiodarone HCl 400 mg 04/01/24 10:40 04/13/24 08:48 Amiodarone Hcl 200 Mg Tablet PO 400 mg DAILY LAVERNE Administration Apixaban 5 mg 04/13/24 21:00 Apixaban 5 Mg Tablet PO Q12HR LAVERNE Bisacodyl 10 mg 04/10/24 02:20 04/10/24 06:21 Bisacodyl 10 Mg Suppository RECTAL 10 mg QAM PRN Administration Constipation Cyanocobalamin 1,000 mcg 03/27/24 17:00 04/13/24 08:48 Cyanocobalamin 1,000 Mcg Tablet PO 1,000 mcg BID LAVERNE Administration Dextrose 12.5 gm 03/27/24 08:57 Dextrose 50% 25 Gm/50 Ml Syringe IV PUSH PRN PRN Hypoglycemia Protocol Docosanol 1 applic 04/09/24 09:00 04/13/24 12:09 Docosanol 10% Cream 2 Gm TOPICAL 1 applic 5 TIMES DAILY LAVERNE Administration Epoetin Marck-epbx 10,000 units 04/13/24 19:08 04/13/24 10:27 Epoetin Marck-Epbx 10,000 Units/Ml Vial IV PUSH 04/13/24 19:09 10,000 units ONCE ONE Administration Glucagon 1 mg 03/27/24 08:57 Glucagon For Inj 1 Mg Vial IM PRN PRN Hypoglycemia Protocol Glucose 15 gm 03/27/24 08:57 Glucose Oral Gel 15 Gm Of Glucse In 37.5 Gm Tube PO PRN PRN Hypoglycemia Protocol Dextrose 1,000 mls @ 100 mls/hr 03/27/24 08:57 Dextrose 5% 1,000 Ml IVPB PRN PRN Hypoglycemia Protocol Albumin Human 50 mls @ 999 mls/hr 04/03/24 09:19 04/07/24 15:05 Albutein IVPB 05/03/24 09:18 100 mls/hr Q10M PRN Administration HYPOTENSION Dexmedetomidine HCl 400 mcg in 100 mls @ 0 mls/hr 04/08/24 09:40 04/13/24 14:00 Precedex 400 Mcg/100 Ml IV CONT 0 mcg/kg/hr .Q0M LAVERNE 0 mls/hr Titration Protocol 0 MCG/KG/HR Norepinephrine Bitartrate 8 mg in 250 mls @ 0 mls/hr 04/11/24 16:50 04/13/24 14:00 Levophed 8 Mg/D5w 250 Ml IV CONT 0 mcg/min .Q0M LAVERNE 0 mls/hr Titration Protocol Insulin Aspart 4 - 8 units 03/29/24 13:00 04/13/24 11:57 Insulin Aspart (*Bkc) 100 Units/Ml SUB-Q Not Given Q4HR LAVERNE Protocol Insulin Glargine 60 units 04/01/24 09:00 04/08/24 08:20 Insulin Glargine (*Bkc) 100 Units/Ml SUB-Q Not Given Q12HR LAVERNE Metoprolol Tartrate 5 mg 04/12/24 00:00 04/12/24 06:14 Metoprolol Tartrate Inj 5 Mg/5 Ml Vial IV PUSH Not Given Q6HR LAVERNE Metoprolol Tartrate 25 mg 04/13/24 08:15 04/13/24 08:48 Metoprolol Tartrate 25 Mg Tablet PO 25 mg Q12HR LAVERNE Administration Midazolam HCl 2 mg 04/11/24 16:46 04/13/24 12:09 Midazolam Hcl (*Crx) 2 Mg/2 Ml Vial IV PUSH 2 mg Q2H PRN Administration Ventilator Asynchrony Multi-Ingred Cream/Lotion/Oil/Oint 1 applic 03/28/24 21:00 04/13/24 08:16 Mineral Oil/White Petrolatum Ointment EACH EYE Not Given Q12HR LAVERNE Pantoprazole Sodium 40 mg 03/29/24 09:00 04/13/24 08:16 Pantoprazole Sodium Iv 40 Mg Vial IV PUSH 40 mg DAILY LAVERNE Administration Polyethylene Glycol 17 gm 04/12/24 07:50 Polyethylene Glycol 3350 17 Gm Powd.Pack PO QAM PRN Constipation Rosuvastatin Calcium 20 mg 03/28/24 09:00 03/31/24 09:28 Rosuvastatin 20 Mg Tablet PO Not Given DAILY LAVERNE Senna/Docusate Sodium 1 tab 04/07/24 21:00 04/12/24 20:05 Senna/Docusate Sodium Tablet PO 1 tab HS LAVERNE Administration Sodium Chloride 10 ml 03/28/24 22:00 04/13/24 12:09 Central Line Flush IV PUSH 10 ml Q8HR LAVERNE Administration Sodium Chloride 10 ml 03/28/24 16:14 Central Line Flush IV PUSH PRN PRN with TPN bag changes Sodium Chloride 20 ml 03/28/24 16:14 Central Line Flush IV PUSH PRN PRN after blood draws Radiology Results: ITS Impressions Chest CTA 03/27/24 06:41 Impression: No evidence of pulmonary embolus, aortic dissection, or aortic aneurysm. Extensive right lower lobe pneumonia. Probable mildly prominent reactive lymphadenopathy the right axilla and subcarinal region. Head CT 03/28/24 22:59 IMPRESSION: 1. Normal brain. Abdomen X-Ray 03/29/24 08:59 IMPRESSION: 1. Lines and tubes in expected positions. 2. Diffuse bilateral lung disease, right greater than left, consistent with multifocal pneumonia. Renal Ultrasound 03/31/24 15:34 IMPRESSION: No hydronephrosis. Perinephric fluid collection adjacent to the left lower pole. Abdomen Ultrasound 03/31/24 15:39 IMPRESSION: Status post cholecystectomy. Pancreas poorly visualized. Otherwise normal abdominal ultrasound findings. Chest X-Ray 04/13/24 06:09 Impression: Mild to moderate probable pulmonary edema pattern. Correlate clinically for pneumonia. Minimal right pleural effusion. Support lines, as above. Labs Labs: Laboratory Tests 04/13/24 04:34 04/13/24 04:34 Calcium 8.6 Phosphorus 5.9 H Magnesium 2.4 H Total Bilirubin 1.0 AST 23 ALT 142 H Alkaline Phosphatase 124 Total Protein 6.0 L Albumin 2.8 L
[2024-04-13 12:00] LABS: Glucose Point of Care 127 mg/dl (65-105)
--- NOTE | 2024-04-13 13:17 | WPDINTPN ---
Progress Note: A&P Assessment and Plan (1) Acute hypoxic respiratory failure: Code(s): J96.01 - Acute respiratory failure with hypoxia Status: Acute Assessment and Plan: Acute hypoxic respiratory failure secondary to pneumonia and congestive heart failure Patient now emergently intubated 03/28 -03/28: Repeat PCR was positive RSV -continue isolation -chest x-ray and ABGs reviewed this morning -Currently PEEP to 10 and FiO2 down to 30% -patient will require additional fluid removal before considering weaning from mechanical ventilation -04/09: Started on Precedex infusion, Versed and fentanyl infusion were discontinued -status post stress dose steroids. -discussed with Nephrology, patient did have if improved urine output over the last 24 hours, and since she did not tolerate dialysis well, critical care nurse practitioner recommended commended Bumex 2 mg IV x1. If she does not respond well, will have to dialyze the patient 04/06: Patient did respond to Bumex that was given yesterday with 1900 mL urine output in the last 24 hours 04/07: A new dialysis catheter has been placed in the left IJ, currently functioning well. Have discussed with Nephrology to continue to remove fluid 04/08: Patient was dialyzed yesterday with 1000 mL in fluid removal, urine output has been adequate, I have asked the bedside RN to turn of the sedation, patient remains somnolent, will place patient on ASV, start Precedex infusion since she is getting tachycardic and hypertensive. Once she is more awake will place her on SBT and evaluate for extubation -04/09: Patient getting dialyzed today. Received Bumex last night with good urine output. Chest x-ray shows worsening airspace opacity right mid and lower lung zones. Worsened small right pleural effusion. FiO2 requirements have increased to 60% from 35%. Place patient on pressure support ventilation, 02/06, low tidal volumes, tachypnea, tachycardia, had to be placed back on CMV mode Discussed with and daughter and updated them with patient's condition, intubated for almost 2 weeks, they agreeable with tracheostomy, as scheduled and with ENT for 04/11/2024. -GI has been consulted for PEG tube placement 04/10: Tried to place patient again on pressure support ventilation 02/06, was not getting adequate tidal volumes, was also tachypneic. Also tried ASV, her respiratory rate was too low. I have asked the bedside RN to come down on her Precedex 04/11: Status post tracheostomy 04/12: PEG tube scheduled for today, Placed patient on ASV mode of ventilation, will switch to pressure support after PEG tube placement -04/13: Patient getting dialysis, after which will switch to ASV mode of ventilation or pressure support ventilation 03/27 CTA chest Impression: No evidence of pulmonary embolus, aortic dissection, or aortic aneurysm. Extensive right lower lobe pneumonia. Probable mildly prominent reactive lymphadenopathy the right axilla and subcarinal region. (2) Sepsis: Code(s): A41.9 - Sepsis, unspecified organism Status: Acute Assessment and Plan: RESOLVED Sepsis/septic shock secondary to community-acquired pneumonia, initial procalcitonin level 4.4 Blood cultures ordered and negative till now Sputum cultures negative Urine Legionella and pneumococcal antigen negative Status post cefepime and azithromycin MRSA screen negative. Vancomycin discontinued (3) Diabetes: Code(s): E11.9 - Type 2 diabetes mellitus without complications Status: Chronic Assessment and Plan: Status post insulin infusion Continue to hold Lantus to 60 units q.12 since blood sugars on trending down after switching patient to Nepro on tube feeds Status post steroids, also she got dialyzed better with the new dialysis catheter in the right IJ, likely dropped her blood sugars. -continue Accu-Cheks and sliding scale insulin -holding tube feeds as could not obtain NG tube -will restart tube feeds after PEG tube placement today (4) Atrial fibrillation with RVR: Code(s): I48.91 - Unspecified atrial fibrillation Status: Acute Assessment and Plan: Patient was amiodarone infusion which has been switched to p.o. amiodarone per tube metoprolol by Cardiology Patient is anticoagulated with Eliquis, currently on hold for PermCath placement, resume this evening on 04/13 Echo Summary 1. Very technically difficult study with limited views. 2. Left ventricular chamber dimension is normal. 3. Left ventricular systolic function is at lower limits of normal, estimated at 50-55%. 4. Left atrial chamber dimension is moderately enlarged (5) Community acquired pneumonia: Code(s): J18.9 - Pneumonia, unspecified organism Status: Acute Assessment and Plan: See above (6) Altered mental status: Code(s): R41.82 - Altered mental status, unspecified Status: Acute Assessment and Plan: Likely secondary to hypoxia. Patient had CT scan of the head recently done which was unremarkable Repeat head CT on 03/28 was again unremarkable Ammonia levels within normal limit TSH was normal -patient continues to open her eyes and follows simple commands (7) Electrolyte abnormality: Code(s): E87.8 - Other disorders of electrolyte and fluid balance, not elsewhere classified Status: Acute Assessment and Plan: Patient on dialysis (8) Shock: Code(s): R57.9 - Shock, unspecified Status: Acute Assessment and Plan: RESOLVED Patient was on Levophed and vasopressin infusion which are currently off -off stress dose steroid - status post 25% albumin -Hold further crystalloids (9) VINCENT (acute kidney injury): Code(s): N17.9 - Acute kidney failure, unspecified Status: Acute Assessment and Plan: Increase in creatinine and drop in urine output likely secondary to shock Patient received IV fluids and 5% albumin earlier in the course. norm CK level Renal ultrasound showed No hydronephrosis. Perinephric fluid collection adjacent to the left lower pole. Nephrology following Continued maintain mean arterial pressure with vasopressors if needed 04/02 Discussed with critical care nurse practitioner and patient's family. Discussed risks and benefits of starting hemodialysis. Sole Dyer and patient's family in agreement. Patient's consented to proceed. Temporary dialysis catheter placed. Patient was dialyzed. Further dialysis per as per Nephrology -04/04: Patient did not tolerate dialysis as she became tachypneic, tachycardic and hypotensive requiring restarting Levophed. -04/05: Sole Dyer recommended giving Bumex 2 mg IV x1 since patient had slightly improved urine output over the last 24 hours and a creatinine and BUN trending downward, - will monitor urine output, renal function and electrolytes 04/06: Discuss with Nephrology, patient received dialysis today with no removal of fluid 04/07: New left IJ dialysis catheter was inserted today, currently functioning well. Right IJ dialysis catheter was removed -dialysis per Nephrology 04/13: Permanent tunneled dialysis catheter will be placed today, 04/13/2024 (10) Elevated liver enzymes: Code(s): R74.8 - Abnormal levels of other serum enzymes Status: Acute Assessment and Plan: Patient is status post cholecystectomy Elevated AST ALT and alkaline phosphatase likely secondary to shock liver Hold statin Right upper quadrant ultrasound - Status post cholecystectomy. Pancreas poorly visualized. Otherwise normal abdominal ultrasound findings. While hepatitis panel was negative Levels were increasing I have discussed with Cardiology regarding potential amiodarone related hepatotoxicity. Patient was on IV amiodarone earlier for rate control as patient was in AFib with RVR. It was switched to p.o. as the rate improved. / amiodarone was held GI consult and following LFTs have been improving, continue to monitor Plan DVT prophylaxis -[place], currently on permanent dialysis catheter, will restart after dialysis catheters placed Stress ulcer prophylaxis -protonix Nutrition -holding tube feeds for permanent dialysis catheter Code Status - Full Code Total Critical Care Time - 34 minutes Discussed patient's daughter and updated her with patient's condition and plan of care. She is aware that the patient is going to get tunneled dialysis catheter placed today. Care coordination is working on LTAC placement. I answered all her questions Due to a high probability of clinically significant, life threatening deterioration, the patient required my highest level of preparedness to intervene emergently and I personally spent this critical care time directly and personally managing the patient. This critical care time included obtaining a history; examining the patient; pulse oximetry; ordering and review of studies; arranging urgent treatment with development of a management plan; evaluation of patient's response to treatment; frequent reassessment; and discussions with other providers. It was exclusive of separately billable procedures and treating other patients and teaching time. Please see Assessment and Plan section and the rest of the note for further information on patient assessment and treatment This dictation may have been done utilizing a voice recognition system. Attempts have been made to correct errors. However, there may be uncorrected grammatical, spelling, and recognitions errors present. Subjective Date/time seen: 04/13/24 13:17 Interval history: 68yo female with AFib s/p SHAYY cardioversion that was unsuccessful, KAREN not using CPAP, DM, HTN and endometrial cancer who presents with shortness of breath, leg swelling and weight gain over the past few weeks. Now in with respiratory failure secondary to pneumonia with septic shock. Intubated and on mechanical ventilation. RSV positive, acute kidney injury status post dialysis catheter and dialysis 04/07: A new Left IJ dialysis catheter was inserted 04/11: Status post tracheostomy 04/12: PEG tube placed 04/13/2024: Patient seen and examined the ICU, is intubated on CMV mode of ventilation, peep of 8, 50% FiO2. On no sedation. Follows simple commands in all extremities and nods to questions. She did get a PEG tube placed yesterday on 04/12/2024. She got dialyzed today with 2400 mL in fluid removal. In AFib RVR. Was given her amiodarone p.o., and metoprolol. Currently afebrile, continue said adequate urine output. Review of Systems Review of Systems: ROS unobtainable: Yes unobtainable due to endotracheal tube, unobtainable due to medical condition and unobtainable due to mental status Exam Narrative: General: Patient on Precedex infusion, in no acute distress Lungs/Chest: Coarse breath sounds bilaterally, no wheezing, decreased air entry at bases Rt > Lt, tracheostomy in place Cardiac: Irregularly irregular, h rate control Circulation: Pedal pulses are intact and symmetrical. Abdomen: Normoactive bowel sounds bowel sounds. Morbidly Obese. Soft. NT. ND. PEG tube in place Extremities: No clubbing, cyanosis, bilateral upper and lower extremity edema improving : Can in place Neurologic: Status post tracheostomy on Precedex infusion, opens her eyes, follows simple command in all extremities, pupils equal and reactive to light Objective Data Vital Signs Vital Signs: Vital Signs - 24 hr 04/12/24 14:00 04/12/24 14:00 04/12/24 14:00 Temperature Pulse Rate 98 98 98 Respiratory Rate 13 Blood Pressure 99/58 L Pulse Oximetry Oxygen Delivery Fraction of Inspired Oxygen 04/12/24 14:00 04/12/24 14:55 04/12/24 16:00 Temperature 99.0 F Pulse Rate 102 H 78 103 H Respiratory Rate 15 Blood Pressure 109/82 Pulse Oximetry 97 100 Oxygen Delivery Mechanical Ventilation Fraction of Inspired Oxygen 70 04/12/24 16:00 04/12/24 16:00 04/12/24 16:00 Temperature Pulse Rate 101 H 101 H Respiratory Rate 19 Blood Pressure 120/107 H Pulse Oximetry Oxygen Delivery Mechanical Ventilation Fraction of Inspired Oxygen 50 04/12/24 16:00 04/12/24 16:00 04/12/24 16:22 Temperature 98.7 F Pulse Rate 96 116 H Respiratory Rate 20 Blood Pressure 120/107 H Pulse Oximetry 99 98 Oxygen Delivery Mechanical Ventilation Fraction of Inspired Oxygen 50 50 04/12/24 18:00 04/12/24 18:00 04/12/24 18:00 Temperature Pulse Rate 111 H 111 H 111 H Respiratory Rate 20 Blood Pressure 138/100 H Pulse Oximetry Oxygen Delivery Fraction of Inspired Oxygen 04/12/24 18:00 04/12/24 20:00 04/12/24 20:00 Temperature 98.6 F 99.0 F Pulse Rate 111 H 127 H 127 H Respiratory Rate 20 19 20 Blood Pressure 138/100 H 119/97 H Pulse Oximetry 99 95 Oxygen Delivery Fraction of Inspired Oxygen 04/12/24 20:00 04/12/24 20:00 04/12/24 20:00 Temperature Pulse Rate 135 H Respiratory Rate Blood Pressure Pulse Oximetry Oxygen Delivery Mechanical Ventilation Fraction of Inspired Oxygen 50 50 04/12/24 20:00 04/12/24 21:00 04/12/24 22:00 Temperature 99.3 F Pulse Rate 124 H 117 H 124 H Respiratory Rate 20 Blood Pressure 119/97 H 116/79 Pulse Oximetry 98 97 Oxygen Delivery Mechanical Ventilation Fraction of Inspired Oxygen 50 04/12/24 22:00 04/12/24 22:00 04/12/24 22:00 Temperature Pulse Rate 124 H 124 H 124 H Respiratory Rate 20 Blood Pressure 116/79 Pulse Oximetry Oxygen Delivery Fraction of Inspired Oxygen 04/12/24 23:18 04/13/24 00:00 04/13/24 00:00 Temperature 99.4 F Pulse Rate 108 H 125 H 125 H Respiratory Rate 20 20 Blood Pressure 121/76 Pulse Oximetry 97 97 Oxygen Delivery Mechanical Ventilation Fraction of Inspired Oxygen 50 04/13/24 00:00 04/13/24 00:00 04/13/24 00:00 Temperature Pulse Rate 115 H Respiratory Rate Blood Pressure Pulse Oximetry Oxygen Delivery Mechanical Ventilation Fraction of Inspired Oxygen 50 50 04/13/24 00:00 04/13/24 00:32 04/13/24 01:49 Temperature Pulse Rate 121 H 131 H 115 H Respiratory Rate Blood Pressure 121/76 Pulse Oximetry 97 Oxygen Delivery Mechanical Ventilation Fraction of Inspired Oxygen 50 04/13/24 02:00 04/13/24 02:00 04/13/24 02:00 Temperature Pulse Rate 109 H 109 H 109 H Respiratory Rate 20 Blood Pressure 129/85 Pulse Oximetry Oxygen Delivery Fraction of Inspired Oxygen 04/13/24 02:00 04/13/24 04:00 04/13/24 04:00 Temperature 99.4 F 99.0 F Pulse Rate 109 H 122 H Respiratory Rate 20 20 Blood Pressure 129/85 131/79 Pulse Oximetry 99 96 Oxygen Delivery Fraction of Inspired Oxygen 50 04/13/24 04:00 04/13/24 04:00 04/13/24 04:00 Temperature Pulse Rate 127 H 123 H Respiratory Rate 20 Blood Pressure Pulse Oximetry Oxygen Delivery Mechanical Ventilation Fraction of Inspired Oxygen 50 04/13/24 04:00 04/13/24 05:30 04/13/24 05:30 Temperature Pulse Rate 123 H 120 H Respiratory Rate Blood Pressure 131/79 Pulse Oximetry 97 Oxygen Delivery Mechanical Ventilation Fraction of Inspired Oxygen 50 40 04/13/24 05:54 04/13/24 06:00 04/13/24 06:00 Temperature Pulse Rate 120 H 124 H 124 H Respiratory Rate 20 Blood Pressure 137/77 Pulse Oximetry 95 Oxygen Delivery Mechanical Ventilation Fraction of Inspired Oxygen 40 04/13/24 06:00 04/13/24 06:00 04/13/24 06:11 Temperature 98.8 F Pulse Rate 124 H 124 H 126 H Respiratory Rate 20 Blood Pressure 137/77 Pulse Oximetry 95 Oxygen Delivery Fraction of Inspired Oxygen 04/13/24 08:00 04/13/24 08:00 04/13/24 08:00 Temperature 98.9 F Pulse Rate 112 H 112 H 112 H Respiratory Rate 21 H 21 H Blood Pressure 121/87 121/87 Pulse Oximetry 96 Oxygen Delivery Fraction of Inspired Oxygen 04/13/24 08:00 04/13/24 08:00 04/13/24 08:00 Temperature Pulse Rate 105 H Respiratory Rate Blood Pressure Pulse Oximetry Oxygen Delivery Mechanical Ventilation Fraction of Inspired Oxygen 40 40 04/13/24 08:30 04/13/24 08:30 04/13/24 08:42 Temperature 99 F Pulse Rate 113 H 104 H Respiratory Rate 22 H Blood Pressure 121/87 112/72 Pulse Oximetry 93 Oxygen Delivery Fraction of Inspired Oxygen 40 04/13/24 08:47 04/13/24 09:00 04/13/24 09:15 Temperature Pulse Rate 104 H 145 H 124 H Respiratory Rate Blood Pressure 136/79 123/77 Pulse Oximetry 97 Oxygen Delivery Mechanical Ventilation Fraction of Inspired Oxygen 40 04/13/24 09:30 04/13/24 09:45 04/13/24 10:00 Temperature Pulse Rate 116 H 110 H 107 H Respiratory Rate Blood Pressure 111/74 119/76 118/88 Pulse Oximetry Oxygen Delivery Fraction of Inspired Oxygen 04/13/24 10:00 04/13/24 10:00 04/13/24 10:00 Temperature 98.9 F Pulse Rate 115 H 115 H 113 H Respiratory Rate 23 H 24 H Blood Pressure 123/90 118/88 Pulse Oximetry 93 Oxygen Delivery Fraction of Inspired Oxygen 04/13/24 10:00 04/13/24 10:15 04/13/24 10:25 Temperature Pulse Rate 115 H 108 H 113 H Respiratory Rate Blood Pressure 123/90 Pulse Oximetry 93 Oxygen Delivery Mechanical Ventilation Fraction of Inspired Oxygen 40 04/13/24 10:30 04/13/24 10:45 04/13/24 11:00 Temperature Pulse Rate 122 H 121 H 127 H Respiratory Rate Blood Pressure 111/76 91/71 L 99/73 L Pulse Oximetry Oxygen Delivery Fraction of Inspired Oxygen 04/13/24 11:15 04/13/24 11:30 04/13/24 11:45 Temperature Pulse Rate 130 H 122 H 129 H Respiratory Rate Blood Pressure 101/74 100/68 107/71 Pulse Oximetry Oxygen Delivery Fraction of Inspired Oxygen 04/13/24 12:00 04/13/24 12:00 04/13/24 12:00 Temperature Pulse Rate 127 H 132 H 132 H Respiratory Rate 24 H Blood Pressure 117/66 117/66 Pulse Oximetry Oxygen Delivery Fraction of Inspired Oxygen 04/13/24 12:00 04/13/24 12:00 04/13/24 12:00 Temperature 99.4 F Pulse Rate 137 H Respiratory Rate 24 H Blood Pressure 117/66 Pulse Oximetry 91 Oxygen Delivery Mechanical Ventilation Fraction of Inspired Oxygen 40 40 04/13/24 12:12 04/13/24 12:22 Temperature 99.5 F Pulse Rate 138 H 149 H Respiratory Rate 25 H Blood Pressure 107/71 108/67 Pulse Oximetry 89 L Oxygen Delivery Fraction of Inspired Oxygen Intake/Output Intake/Output: Intake & Output 04/10/24 04/11/24 04/12/24 04/13/24 23:59 23:59 23:59 23:59 Intake Total 1524.9 855.4 301.1 60 Output Total 1000 3600 575 2875 Balance 524.9 -2744.6 -273.9 -2815 Meds/Results Medications: Active Medications Generic Name Dose Route Start Last Admin Trade Name Machoq PRN Reason Stop Dose Admin Acetaminophen 650 mg 03/27/24 14:41 04/12/24 20:33 Acetaminophen 325 Mg Tablet PO 650 mg Q4H PRN Administration Mild Pain (1-3) or Fever Alteplase, Recombinant 2 mg 04/06/24 03:11 04/06/24 03:22 Alteplase 2 Mg Vial (Cathflo) IV PUSH 2 mg ONCE PRN Administration Line Occlusion Amiodarone HCl 400 mg 04/01/24 10:40 04/13/24 08:48 Amiodarone Hcl 200 Mg Tablet PO 400 mg DAILY LAVERNE Administration Apixaban 5 mg 04/13/24 21:00 Apixaban 5 Mg Tablet PO Q12HR LAVERNE Bisacodyl 10 mg 04/10/24 02:20 04/10/24 06:21 Bisacodyl 10 Mg Suppository RECTAL 10 mg QAM PRN Administration Constipation Cyanocobalamin 1,000 mcg 03/27/24 17:00 04/13/24 08:48 Cyanocobalamin 1,000 Mcg Tablet PO 1,000 mcg BID LAVERNE Administration Dextrose 12.5 gm 03/27/24 08:57 Dextrose 50% 25 Gm/50 Ml Syringe IV PUSH PRN PRN Hypoglycemia Protocol Docosanol 1 applic 04/09/24 09:00 04/13/24 12:09 Docosanol 10% Cream 2 Gm TOPICAL 1 applic 5 TIMES DAILY LAVERNE Administration Epoetin Marck-epbx 10,000 units 04/13/24 19:08 04/13/24 10:27 Epoetin Marck-Epbx 10,000 Units/Ml Vial IV PUSH 04/13/24 19:09 10,000 units ONCE ONE Administration Glucagon 1 mg 03/27/24 08:57 Glucagon For Inj 1 Mg Vial IM PRN PRN Hypoglycemia Protocol Glucose 15 gm 03/27/24 08:57 Glucose Oral Gel 15 Gm Of Glucse In 37.5 Gm Tube PO PRN PRN Hypoglycemia Protocol Dextrose 1,000 mls @ 100 mls/hr 03/27/24 08:57 Dextrose 5% 1,000 Ml IVPB PRN PRN Hypoglycemia Protocol Albumin Human 50 mls @ 999 mls/hr 04/03/24 09:19 04/07/24 15:05 Albutein IVPB 05/03/24 09:18 100 mls/hr Q10M PRN Administration HYPOTENSION Dexmedetomidine HCl 400 mcg in 100 mls @ 0 mls/hr 04/08/24 09:40 04/13/24 12:00 Precedex 400 Mcg/100 Ml IV CONT 0 mcg/kg/hr .Q0M LAVERNE 0 mls/hr Titration Protocol 0 MCG/KG/HR Norepinephrine Bitartrate 8 mg in 250 mls @ 0 mls/hr 04/11/24 16:50 04/13/24 12:00 Levophed 8 Mg/D5w 250 Ml IV CONT 0 mcg/min .Q0M LAVERNE 0 mls/hr Titration Protocol Insulin Aspart 4 - 8 units 03/29/24 13:00 04/13/24 11:57 Insulin Aspart (*Bkc) 100 Units/Ml SUB-Q Not Given Q4HR [facility] Protocol Insulin Glargine 60 units 04/01/24 09:00 04/08/24 08:20 Insulin Glargine (*Bkc) 100 Units/Ml SUB-Q Not Given Q12HR [facility] Metoprolol Tartrate 5 mg 04/12/24 00:00 04/12/24 06:14 Metoprolol Tartrate Inj 5 Mg/5 Ml Vial IV PUSH Not Given Q6HR [facility]NE Metoprolol Tartrate 25 mg 04/13/24 08:15 04/13/24 08:48 Metoprolol Tartrate 25 Mg Tablet PO 25 mg Q12HR LAVERNE Administration Midazolam HCl 2 mg 04/11/24 16:46 04/13/24 12:09 Midazolam Hcl (*Crx) 2 Mg/2 Ml Vial IV PUSH 2 mg Q2H PRN Administration Ventilator Asynchrony Multi-Ingred Cream/Lotion/Oil/Oint 1 applic 03/28/24 21:00 04/13/24 08:16 Mineral Oil/White Petrolatum Ointment EACH EYE Not Given Q12HR LAVERNE Pantoprazole Sodium 40 mg 03/29/24 09:00 04/13/24 08:16 Pantoprazole Sodium Iv 40 Mg Vial IV PUSH 40 mg DAILY LAVERNE Administration Polyethylene Glycol 17 gm 04/12/24 07:50 Polyethylene Glycol 3350 17 Gm Powd.Pack PO QAM PRN Constipation Rosuvastatin Calcium 20 mg 03/28/24 09:00 03/31/24 09:28 Rosuvastatin 20 Mg Tablet PO Not Given DAILY LAVERNE Senna/Docusate Sodium 1 tab 04/07/24 21:00 04/12/24 20:05 Senna/Docusate Sodium Tablet PO 1 tab HS LAVERNE Administration Sodium Chloride 10 ml 03/28/24 22:00 04/13/24 12:09 Central Line Flush IV PUSH 10 ml Q8HR LAVERNE Administration Sodium Chloride 10 ml 03/28/24 16:14 Central Line Flush IV PUSH PRN PRN with TPN bag changes Sodium Chloride 20 ml 03/28/24 16:14 Central Line Flush IV PUSH PRN PRN after blood draws Radiology Results: ITS Impressions Chest CTA 03/27/24 06:41 Impression: No evidence of pulmonary embolus, aortic dissection, or aortic aneurysm. Extensive right lower lobe pneumonia. Probable mildly prominent reactive lymphadenopathy the right axilla and subcarinal region. Head CT 03/28/24 22:59 IMPRESSION: 1. Normal brain. Abdomen X-Ray 03/29/24 08:59 IMPRESSION: 1. Lines and tubes in expected positions. 2. Diffuse bilateral lung disease, right greater than left, consistent with multifocal pneumonia. Renal Ultrasound 03/31/24 15:34 IMPRESSION: No hydronephrosis. Perinephric fluid collection adjacent to the left lower pole. Abdomen Ultrasound 03/31/24 15:39 IMPRESSION: Status post cholecystectomy. Pancreas poorly visualized. Otherwise normal abdominal ultrasound findings. Chest X-Ray 04/13/24 06:09 Impression: Mild to moderate probable pulmonary edema pattern. Correlate clinically for pneumonia. Minimal right pleural effusion. Support lines, as above. Labs Labs: Laboratory Results - last 24 hr 04/12/24 04/12/24 04/13/24 16:58 20:04 00:35 WBC RBC Hgb Hct MCV MCH MCHC RDW Plt Count MPV Immature Gran % (Auto) Neut % (Auto) Lymph % (Auto) [place] % (Auto) Eos % (Auto) Baso % (Auto) Lymph # (Auto) [place] # (Auto) Eos # (Auto) Baso # (Auto) Abs Immat Gran (auto) Absolute Neuts (auto) Absolute Nucleated RBC Nucleated RBC % Puncture Site ABG pH ABG pCO2 ABG pO2 ABG PO2/FiO2 Ratio ABG HCO3 ABG O2 Saturation ABG O2 Content ABG Base Excess A-a Gradient Oxyhemoglobin Carboxyhemoglobin Methemoglobin Reduced Hemoglobin Total Hemoglobin O2 Delivery Device O2 Liters/Min Minute Volume Vent Rate Vent Mode FiO2 Tidal Volume PEEP Peak Inspir Pressure Pressure Support Sodium Potassium Chloride Carbon Dioxide Anion Gap BUN Creatinine Estim Creat Clear Calc Estimated GFR Glucose POC Capillary Glucose 145 H 161 H 160 H Calcium Phosphorus Magnesium Total Bilirubin AST ALT Alkaline Phosphatase Total Protein Albumin 04/13/24 04/13/24 04/13/24 04:32 04:34 05:20 WBC 10.3 H RBC 3.20 L Hgb 9.7 L Hct 30.3 L MCV 94.7 MCH 30.3 MCHC 32.0 RDW 16.8 H Plt Count 313 MPV 9.7 Immature Gran % (Auto) 0.5 Neut % (Auto) 91.3 H Lymph % (Auto) 3.1 L [place] % (Auto) 4.7 Eos % (Auto) 0.2 Baso % (Auto) 0.2 Lymph # (Auto) 0.32 L [place] # (Auto) 0.5 Eos # (Auto) 0.0 Baso # (Auto) 0.0 Abs Immat Gran (auto) 0.05 H Absolute Neuts (auto) 9.4 H Absolute Nucleated RBC 0.000 Nucleated RBC % 0.0 Puncture Site Right radial ABG pH 7.449 ABG pCO2 29.6 L ABG pO2 90.4 ABG PO2/FiO2 Ratio 1.81 ABG HCO3 20.1 L ABG O2 Saturation 97.3 ABG O2 Content 14.7 L ABG Base Excess -3.1 A-a Gradient 232.8 Oxyhemoglobin 95.8 Carboxyhemoglobin 0.3 Methemoglobin 0.3 Reduced Hemoglobin 3.6 Total Hemoglobin 10.8 L O2 Delivery Device Ventilator O2 Liters/Min Not Reportable Minute Volume Not Reportable Vent Rate 20 Vent Mode Cmv FiO2 50 Tidal Volume 400 PEEP 8 Peak Inspir Pressure Not Reportable Pressure Support Not Reportable Sodium 141 Potassium 3.8 Chloride 106 Carbon Dioxide 23 Anion Gap 12 BUN 72 H D Creatinine 2.60 H Estim Creat Clear Calc 29 Estimated GFR 18 L Glucose 156 H POC Capillary Glucose 163 H Calcium 8.6 Phosphorus 5.9 H Magnesium 2.4 H Total Bilirubin 1.0 AST 23 ALT 142 H Alkaline Phosphatase 124 Total Protein 6.0 L Albumin 2.8 L 04/13/24 04/13/24 07:41 11:56 WBC RBC Hgb Hct MCV MCH MCHC RDW Plt Count MPV Immature Gran % (Auto) Neut % (Auto) Lymph % (Auto) [place] % (Auto) Eos % (Auto) Baso % (Auto) Lymph # (Auto) [place] # (Auto) Eos # (Auto) Baso # (Auto) Abs Immat Gran (auto) Absolute Neuts (auto) Absolute Nucleated RBC Nucleated RBC % Puncture Site ABG pH ABG pCO2 ABG pO2 ABG PO2/FiO2 Ratio ABG HCO3 ABG O2 Saturation ABG O2 Content ABG Base Excess A-a Gradient Oxyhemoglobin Carboxyhemoglobin Methemoglobin Reduced Hemoglobin Total Hemoglobin O2 Delivery Device O2 Liters/Min Minute Volume Vent Rate Vent Mode FiO2 Tidal Volume PEEP Peak Inspir Pressure Pressure Support Sodium Potassium Chloride Carbon Dioxide Anion Gap BUN Creatinine Estim Creat Clear Calc Estimated GFR Glucose POC Capillary Glucose 162 H 127 H Calcium Phosphorus Magnesium Total Bilirubin AST ALT Alkaline Phosphatase Total Protein Albumin Quality VTE Prophylaxis VTE prophylaxis: pharmacologic ordered
--- NOTE | 2024-04-13 14:45 | PC.NURSE ---
Patient off unit to OR for tunneled hemodialysis catheter. Report given to CLEMENTINA Fowler and Cristy Sarmiento CRNA. Appropriate documentation and chart sent with patient; as well as trach box (obturator and size 7 & 6 trachs)
--- NOTE | 2024-04-13 15:31 | P.PNAN_ITS ---
Anes - Initial Pre Proc Eval Procedure: Operation Date: 03/29/24 14:30 Proposed Procedures p Electrical Cardioversion - Gme Swartz MD Operation Date: 04/11/24 10:45 Proposed Procedures p Tracheostomy - Malcolm Reyes MD Operation Date: 04/12/24 15:00 Proposed Procedures p Percutaneous Endoscopic Gastrostomy - Tuan Miles MD Operation Date: 04/13/24 14:00 Proposed Procedures p Insertion Tunneled Dialysis Catheter - Trena Gregg MD Date/Time: 04/13/24 15:31 Surgeon: Safia Portillo PA-C Pre Op Diagnosis: Community-acquired pneumonia, AFib, hypoxia Patient Data Age: 68 Gender: F Height: 1.78 m Weight: 145 kg Last Vital Signs Temp 99.8 F H 04/13/24 14:00 Pulse 125 H 04/13/24 14:23 Resp 23 H 04/13/24 14:00 BP 127/76 04/13/24 14:00 Pulse Ox 97 04/13/24 14:23 O2 Del Method Mechanical Ventilation 04/13/24 14:23 O2 Flow Rate 8 03/28/24 12:00 FiO2 40 04/13/24 14:23 Allergies Allergy/AdvReac Type Severity Reaction Status Date / Time No Known Allergies Allergy Verified 03/27/24 11:06 Home Medications ?Medication ?Instructions ?Recorded ?Confirmed ?Type losartan 100 1 tablet PO DAILY 03/19/22 03/27/24 History mg-hydrochlorothiazide 25 mg tablet metformin 500 mg tablet 500 mg PO BID 03/19/22 03/27/24 History metoprolol tartrate 25 mg tablet 25 mg PO BID 03/19/22 03/27/24 History rosuvastatin 20 mg tablet 20 mg PO DAILY 01/01/23 03/27/24 History ezetimibe 10 mg tablet 10 mg PO DAILY 01/07/23 03/27/24 History cyanocobalamin (vitamin B-12) 2 tablet PO DAILY 01/06/24 03/27/24 History apixaban 5 mg tablet (Eliquis) 5 mg PO Q12H 03/27/24 03/27/24 History tirzepatide 2.5 mg/0.5 mL 2.5 mg subcut WEEKLY 03/27/24 03/27/24 History subcutaneous pen injector (Messiunrosendo) Laboratory Tests 04/12/24 04/12/24 04/13/24 16:58 20:04 00:35 WBC RBC Hgb Hct MCV MCH MCHC RDW Plt Count MPV Immature Gran % (Auto) Neut % (Auto) Lymph % (Auto) [place] % (Auto) Eos % (Auto) Baso % (Auto) Lymph # (Auto) [place] # (Auto) Eos # (Auto) Baso # (Auto) Abs Immat Gran (auto) Absolute Neuts (auto) Absolute Nucleated RBC Nucleated RBC % Puncture Site ABG pH ABG pCO2 ABG pO2 ABG PO2/FiO2 Ratio ABG HCO3 ABG O2 Saturation ABG O2 Content ABG Base Excess A-a Gradient Oxyhemoglobin Carboxyhemoglobin Methemoglobin Reduced Hemoglobin Total Hemoglobin O2 Delivery Device O2 Liters/Min Minute Volume Vent Rate Vent Mode FiO2 Tidal Volume PEEP Peak Inspir Pressure Pressure Support Sodium Potassium Chloride Carbon Dioxide Anion Gap BUN Creatinine Estim Creat Clear Calc Estimated GFR Glucose POC Capillary Glucose 145 H mg/dl 161 H mg/dl 160 H mg/dl (65-105) (65-105) (65-105) Calcium Phosphorus Magnesium Total Bilirubin AST ALT Alkaline Phosphatase Total Protein Albumin 04/13/24 04/13/24 04/13/24 04:32 04:34 05:20 WBC 10.3 H K/mm3 (4.5-10.0) RBC 3.20 L M/mm3 (4.2-5.4) Hgb 9.7 L g/dL (12.0-15.0) Hct 30.3 L % (37.0-47.0) MCV 94.7 fl (80-100) MCH 30.3 pg (26-34) MCHC 32.0 g/dl (32-36) RDW 16.8 H % (11.5-14.5) Plt Count 313 k/mm3 (150-375) MPV 9.7 fl (7.4-10.4) Immature Gran % (Auto) 0.5 % (0-0.5) Neut % (Auto) 91.3 H % (45.5-73.1) Lymph % (Auto) 3.1 L % (18.3-44.2) [place] % (Auto) 4.7 % (2.6-8.5) Eos % (Auto) 0.2 % (0-4.4) Baso % (Auto) 0.2 % (0.2-1.2) Lymph # (Auto) 0.32 L K/mm3 (0.9-3.2) [place] # (Auto) 0.5 K/mm3 (0.1-0.6) Eos # (Auto) 0.0 K/mm3 (0-0.3) Baso # (Auto) 0.0 K/mm3 (0.0-0.1) Abs Immat Gran (auto) 0.05 H K/mm3 (0.00-0.031) Absolute Neuts (auto) 9.4 H K/mm3 (1.3-6.7) Absolute Nucleated RBC 0.000 K/mm3 (0.0-0.012) Nucleated RBC % 0.0 % (0.0-0.2) Puncture Site Right radial ABG pH 7.449 (7.350-7.450) ABG pCO2 29.6 L mmHg (35.0-45.0) ABG pO2 90.4 mmHg (80.0-100.0) ABG PO2/FiO2 Ratio 1.81 % ABG HCO3 20.1 L mEq/l (22.0-26.0) ABG O2 Saturation 97.3 % (95.0-100.0) ABG O2 Content 14.7 L %vol (16.0-22.0) ABG Base Excess -3.1 mEq/l (+/-2.0) A-a Gradient 232.8 mmHg Oxyhemoglobin 95.8 % THb (90.0-100.0) Carboxyhemoglobin 0.3 % THb (0-2.0) Methemoglobin 0.3 %THb (0-1.5) Reduced Hemoglobin 3.6 %THb (0-5.0) Total Hemoglobin 10.8 L g/dL (12.0-18.0) O2 Delivery Device Ventilator O2 Liters/Min Not Reportable Minute Volume Not Reportable Vent Rate 20 /MIN Vent Mode Cmv FiO2 50 % Tidal Volume 400 ml PEEP 8 cmH2O Peak Inspir Pressure Not Reportable Pressure Support Not Reportable Sodium 141 mmol/L (137-145) Potassium 3.8 mmol/L (3.4-5.0) Chloride 106 mmol/L (98-107) Carbon Dioxide 23 mmol/L (22-30) Anion Gap 12 mmol/L (4-12) BUN 72 H D mg/dL (7-17) Creatinine 2.60 H mg/dL (0.7-1.0) Estim Creat Clear Calc 29 ml/min Estimated GFR 18 L (59 - ) Glucose 156 H mg/dL (65-110) POC Capillary Glucose 163 H mg/dl (65-105) Calcium 8.6 mg/dL (8.4-10.2) Phosphorus 5.9 H mg/dL (2.5-4.5) Magnesium 2.4 H mg/dL (1.6-2.3) Total Bilirubin 1.0 mg/dL (0.2-1.3) AST 23 U/L (14-36) ALT 142 H U/L (6-35) Alkaline Phosphatase 124 U/L (38-126) Total Protein 6.0 L g/dL (6.3-8.2) Albumin 2.8 L g/dL (3.5-5.1) 04/13/24 04/13/24 07:41 11:56 WBC RBC Hgb Hct MCV MCH MCHC RDW Plt Count MPV Immature Gran % (Auto) Neut % (Auto) Lymph % (Auto) [place] % (Auto) Eos % (Auto) Baso % (Auto) Lymph # (Auto) [place] # (Auto) Eos # (Auto) Baso # (Auto) Abs Immat Gran (auto) Absolute Neuts (auto) Absolute Nucleated RBC Nucleated RBC % Puncture Site ABG pH ABG pCO2 ABG pO2 ABG PO2/FiO2 Ratio ABG HCO3 ABG O2 Saturation ABG O2 Content ABG Base Excess A-a Gradient Oxyhemoglobin Carboxyhemoglobin Methemoglobin Reduced Hemoglobin Total Hemoglobin O2 Delivery Device O2 Liters/Min Minute Volume Vent Rate Vent Mode FiO2 Tidal Volume PEEP Peak Inspir Pressure Pressure Support Sodium Potassium Chloride Carbon Dioxide Anion Gap BUN Creatinine Estim Creat Clear Calc Estimated GFR Glucose POC Capillary Glucose 162 H mg/dl 127 H mg/dl (65-105) (65-105) Calcium Phosphorus Magnesium Total Bilirubin AST ALT Alkaline Phosphatase Total Protein Albumin Patient hx anesthesia problems: none Family hx anesthesia problems: none Results Review: All pre-operative results and documents have been reviewed as part of the pre- operative evaluation. [facility] Past Medical History Medical History Acute hypoxic respiratory failure Atrial fibrillation with RVR Septic shock RSV (respiratory syncytial virus pneumonia) Malnutrition Atrial fibrillation History of endometrial cancer Sleep apnea does not use CPAP High cholesterol Diabetes Hypertension Surgical History Surgical History History of total hysterectomy (~2018) History of cholecystectomy (~1998) History of 1977, 1983, 1990 Family History Family History Mother Uterine cancer Daughter Thyroid cancer Sibling Spinal cord cancer Social History Social History Social History: Patient lives at home with her . No pets in the home. Smoking status: Never smoker Alcohol intake: current Alcohol use details: occasional. Less than once a month. Substance use: never Substance use type: does not use Do You Feel Safe in your Home?: Yes Lack of Transportation: No Lack of Food: Never True Current Housing: I Have Housing Concerned About Future Housing: No Difficulty Paying Gas/Electric Bills: No Difficulty Paying for Meds: YES Currently Unemployed: No Education: Trade/Vocational Certificate Difficulty w/ Childcare or Family Care: No Living arrangements: with family Spiritual care concerns: No Anes - Eval Final PreProcedure Day of Procedure 04/13/24 15:31 Patient weight: morbidly obese Heart: regular rate and rhythm Lungs: normal air movement and decreased breath sounds Airway: other (Trach in place. ) Neurological: other (Sedated. ) Last oral intake: >/= 8 hours ASA classification: IV Emergent: no Anesthetic plan: proceed Anesthesia type and monitoring: general ETT and standard monitoring Results Review: All pre-operative results and documents have been reviewed as part of the pre- operative evaluation. Critically ill pt from ICU. Chart and most recent progress notes reviewed. Pt arrives directly to OR 3 from ICU. Informed Consent: The patient's anesthetic plan and its attendant risks and benefits were discussed with the patient/family/POA. Questions were solicited and answers provided to the satisfaction of the patient/family/POA.
[2024-04-13] MEDS: LIDO 1%/EPINEPHRINE 1:100,000 50 ML VIAL 30 ML INFILTRATE (15:36)
[2024-04-13] MEDS: HEPARIN SODIUM, PORCINE 10,000 UNITS/10 ML VIAL 10000 UNITS IV PUSH (15:37)
[2024-04-13] MEDS: HEPARIN SODIUM 5,000 UNITS/ML VIAL 5000 UNITS IV PUSH (15:39)
[2024-04-13] MEDS: LIDO 1%/EPINEPHRINE 1:100,000 50 ML VIAL 10 ML INFILTRATE (15:44)
--- NOTE | 2024-04-13 15:51 | PC.NURSE ---
Report received from CLEMENTINA Fowler. Tunneled dialysis catheter placed on left. Dressed with tegaderm and 10 ml of local at site.
--- NOTE | 2024-04-13 15:51 | W.PM.PROC2 ---
Procedure Note - Detailed Date of Procedure 04/13/24 Pre-op Diagnosis Renal failure, multi system organ failure Post-op Diagnosis Same Procedure Performed placement of left internal jugular tunneled hemodialysis catheter under fluoroscopic guidance Surgeon Trena Gregg MD Anesthesia General and Local Indications 68-year-old female presenting with multi system organ failure necessitating hemodialysis Findings previous left internal jugular Vas-Cath Description of Procedure The patient was taken to the operating room and placed in the supine position. After adequate induction of general anesthesia, the patient was prepped and draped in the normal sterile fashion. A time-out was then done to verify the patient's identity, as well as the procedure being performed. The previously placed left internal jugular Vas-Cath was imaged via fluoroscopy and noted to be in good position. I then placed a wire into the catheter and subsequently into the left internal jugular vein. Using fluoroscopy, I removed the Vas-Cath over the guidewire. I then made an incision in the left chest and tunneled the catheter to the insertion site in the left neck. I then placed the dilating sheath over the guidewire into the left internal jugular vein. Once again fluoroscopy was used to confirm proper placement. I then removed the dilator and the guidewire just leaving the sheath in the vein. I then fed the catheter into the sheath and subsequently into the left internal jugular vein. Once noted to be in proper position via fluoroscopy, I peeled away the sheath. The catheter was noted to have a nice smooth curvature and terminated in the superior vena cava. I was able to easily draw and flush from both port sites. I then placed 2.2 and 2.3 cc of final heparin flush as directed. The catheter was then sutured into place. The neck insertion site was closed with a 4-0 Monocryl subcuticular suture. Sterile dressing was placed on all wounds. The patient tolerated the procedure well and will be transferred back to the ICU in critical condition. Estimated Blood Loss 10 Complications No immediate complications Condition Critical Disposition ICU [facility] Billing Surgery - Charge Forward: Surgery Billing
--- NOTE | 2024-04-13 16:13 | PC.NURSE ---
Patient received from OR on bed. Report from INES Okeefe and LAMBERTO. Yulia placed back on mechanical vent with previous settings. Trach dressing changed and assessed permanent hemodialysis catheter (clean, dry, and intact)
[2024-04-13 16:54] LABS: Glucose Point of Care 137 mg/dl (65-105)
[2024-04-13] MEDS: MINERAL OIL/WHITE PETROLATUM OINTMENT 1 APPLIC EACH EYE (22:02)
[2024-04-13] MEDS: APIXABAN 5 MG TABLET PO (22:02)
[2024-04-13] MEDS: SENNA/DOCUSATE SODIUM TABLET 1 TAB PO (22:02)
[2024-04-13 22:13] LABS: Glucose Point of Care 182 mg/dl (65-105)
[2024-04-14] VITALS (26 sets, daily range): BP systolic 108–132; BP diastolic 62–85; PULSE 90–128; RESP 20–27; TEMP 37.5–37.8; O2SAT 90–98
[2024-04-14] MEDS: ACETAMINOPHEN 325 MG TABLET 650 MG PO ×2 (01:26→12:26)
[2024-04-14 01:33] LABS: Glucose Point of Care 189 mg/dl (65-105)
[2024-04-14] MEDS: CENTRAL LINE FLUSH 10 ML IV PUSH ×3 (05:28→20:06)
[2024-04-14] MEDS: MIDAZOLAM HCL (*CRX) 2 MG/2 ML VIAL IV PUSH (05:28)
[2024-04-14 05:34] LABS: Basophils Percent Auto 0.1 % (0.2-1.2); Eosinophils Percent Auto 0.1 % (0-4.4); Hematocrit 30.4 % (37.0-47.0); Hemoglobin 9.8 g/dL (12.0-15.0); Immature Granulocyte Absolute 0.03 K/mm3 (0.00-0.031); Immature Granulocyte Percent A 0.4 % (0-0.5); Lymphocytes Percent Auto 3.7 % (18.3-44.2); Mean Corpuscular HGB Conc 32.2 g/dl (32-36); Mean Corpuscular Hemoglobin 30.8 pg (26-34); Mean Corpuscular Volume 95.6 fl (80-100); Mean Platelet Volume 9.6 fl (7.4-10.4); Monocytes Absolute Auto 0.3 K/mm3 (0.1-0.6); Monocytes Percent Auto 3.1 % (2.6-8.5); Neutrophils Absolute Auto 7.5 K/mm3 (1.3-6.7); Neutrophils Percent Auto 92.6 % (45.5-73.1); Nucleated Red Blood Cells Perc 0.2 % (0.0-0.2); Platelet Count Result 292 k/mm3 (150-375); Red Blood Count 3.18 M/mm3 (4.2-5.4); Red Cell Distribution Width 16.8 % (11.5-14.5); White Blood Count 8.1 K/mm3 (4.5-10.0)
[2024-04-14 05:38] LABS: Alveolar/Arterial O2 Gradient 178.1 mmHg; Base Excess ABG 1.9 mEq/l (+/-2.0); Carboxyhemoglobin 0.3 % THb (0-2.0); Device VENTILATOR; Fractional Inspired Oxygen 40 %; HCO3 ABG 25.3 mEq/l (22.0-26.0); Methemoglobin ABG 0.3 %THb (0-1.5); Modified Allen's Test Unable to perform; Oxygen Content ABG 13.5 %vol (16.0-22.0); Oxygen Saturation ABG 94.7 % (95.0-100.0); Oxyhemoglobin 92.2 % THb (90.0-100.0); PCO2 ABG 34.8 mmHg (35.0-45.0); PO2 ABG 67.1 mmHg (80.0-100.0); PO2 FiO2 Ratio Arterial Blood 1.68 %; Reduced Hemoglobin 7.2 %THb (0-5.0); Site Drawn RIGHT RADIAL; Total Hemoglobin 10.4 g/dL (12.0-18.0); pH ABG 7.479 (7.350-7.450)
[2024-04-14 05:39] LABS: Arterial Blood Gas PEEP 8 cmH2O; Arterial Blood Gas Tidal Volume 400 ml; Arterial Blood Gas Vent Mode CMV; Arterial Blood Gas Ventilator rate 20 /MIN
[2024-04-14 05:50] LABS: Alanine Aminotransferase 89 U/L (6-35); Albumin Level 2.8 g/dL (3.5-5.1); Alkaline Phosphatase 125 U/L (38-126); Anion Gap 11 mmol/L (4-12); Aspartate Amino Transferase 17 U/L (14-36); Bilirubin,Total 0.9 mg/dL (0.2-1.3); Blood Urea Nitrogen 46 mg/dL (7-17); Calcium 8.2 mg/dL (8.4-10.2); Carbon Dioxide 26 mmol/L (22-30); Chloride 101 mmol/L (98-107); Estimated CRCL calculation 37 ml/min; Estimated Glomerular Filt Rate 24; Glucose 228 mg/dL (65-110); Magnesium 2.2 mg/dL (1.6-2.3); Phosphorus 4.4 mg/dL (2.5-4.5); Potassium 3.6 mmol/L (3.4-5.0); Sodium 138 mmol/L (137-145)
[2024-04-14] MEDS: INSULIN ASPART (*BKC) 100 UNITS/ML SUB-Q ×5 (06:00→20:05)
[2024-04-14] MEDS: AMIODARONE HCL 200 MG TABLET 400 MG PO (09:46)
[2024-04-14] MEDS: PANTOPRAZOLE SODIUM IV 40 MG VIAL IV PUSH (09:46)
[2024-04-14] MEDS: POTASSIUM CHLORIDE 20 MEQ PACKET (FOR LIQUID) FEED TUBE (09:46)
[2024-04-14] MEDS: METOPROLOL TARTRATE 50 MG TAB PO ×2 (09:47→20:04)
[2024-04-14] MEDS: DOCOSANOL 10% CREAM 2 GM 1 APPLIC TOPICAL ×5 (09:47→20:04)
[2024-04-14] MEDS: CYANOCOBALAMIN 1,000 MCG TABLET 1000 MCG PO ×2 (09:47→17:09)
[2024-04-14] MEDS: MINERAL OIL/WHITE PETROLATUM OINTMENT 1 APPLIC EACH EYE ×2 (09:47→20:05)
[2024-04-14] MEDS: APIXABAN 5 MG TABLET PO ×2 (09:47→20:04)
--- NOTE | 2024-04-14 10:16 | WPDANESPN ---
Anes - Prog Note Post-Op Date/Time: 04/14/24 10:16 Cardiovascular status: other (anemia) Respiratory status: other (Trached and sedated ) Airway patency: other (Trached) Mental status: other (keira) Post-Op hydration status: other (tube feeding to restart after PEF tube placement ) Vital Signs: Last Vital Signs Temp 99.6 F 04/14/24 06:00 Pulse 120 H 04/14/24 09:52 Resp 27 H 04/14/24 06:00 BP 127/77 04/14/24 06:00 Pulse Ox 90 04/14/24 09:52 O2 Del Method Mechanical Ventilation 04/14/24 09:52 O2 Flow Rate 8 03/28/24 12:00 FiO2 40 04/14/24 09:52 Pain Score (VAS): keira I/O: Intake & Output 04/13/24 04/14/24 04/14/24 23:59 07:59 15:59 Intake Total 255 488 Output Total 400 350 Balance -145 138 Laboratory Tests 04/14/24 05:18 04/14/24 05:18 04/13/24 04/13/24 04/13/24 11:56 16:51 22:05 WBC RBC Hgb Hct MCV MCH MCHC RDW Plt Count MPV Immature Gran % (Auto) Neut % (Auto) Lymph % (Auto) [place] % (Auto) Eos % (Auto) Baso % (Auto) Lymph # (Auto) [place] # (Auto) Eos # (Auto) Baso # (Auto) Abs Immat Gran (auto) Absolute Neuts (auto) Absolute Nucleated RBC Nucleated RBC % Puncture Site ABG pH ABG pCO2 ABG pO2 ABG PO2/FiO2 Ratio ABG HCO3 ABG O2 Saturation ABG O2 Content ABG Base Excess A-a Gradient Oxyhemoglobin Carboxyhemoglobin Methemoglobin Reduced Hemoglobin Total Hemoglobin O2 Delivery Device O2 Liters/Min Minute Volume Vent Rate Vent Mode FiO2 Tidal Volume PEEP Peak Inspir Pressure Pressure Support Sodium Potassium Chloride Carbon Dioxide Anion Gap BUN Creatinine Estim Creat Clear Calc Estimated GFR Glucose POC Capillary Glucose 127 H 137 H 182 H Calcium Phosphorus Magnesium Total Bilirubin AST ALT Alkaline Phosphatase Total Protein Albumin 04/14/24 04/14/24 04/14/24 01:13 05:18 05:27 WBC 8.1 RBC 3.18 L Hgb 9.8 L Hct 30.4 L MCV 95.6 MCH 30.8 MCHC 32.2 RDW 16.8 H Plt Count 292 MPV 9.6 Immature Gran % (Auto) 0.4 Neut % (Auto) 92.6 H Lymph % (Auto) 3.7 L [place] % (Auto) 3.1 Eos % (Auto) 0.1 Baso % (Auto) 0.1 L Lymph # (Auto) 0.30 L [place] # (Auto) 0.3 Eos # (Auto) 0.0 Baso # (Auto) 0.0 Abs Immat Gran (auto) 0.03 Absolute Neuts (auto) 7.5 H Absolute Nucleated RBC 0.020 H Nucleated RBC % 0.2 Puncture Site Right radial ABG pH 7.479 H ABG pCO2 34.8 L ABG pO2 67.1 L ABG PO2/FiO2 Ratio 1.68 ABG HCO3 25.3 ABG O2 Saturation 94.7 L ABG O2 Content 13.5 L ABG Base Excess 1.9 A-a Gradient 178.1 Oxyhemoglobin 92.2 Carboxyhemoglobin 0.3 Methemoglobin 0.3 Reduced Hemoglobin 7.2 H Total Hemoglobin 10.4 L O2 Delivery Device Ventilator O2 Liters/Min Not Reportable Minute Volume Not Reportable Vent Rate 20 Vent Mode Cmv FiO2 40 Tidal Volume 400 PEEP 8 Peak Inspir Pressure Not Reportable Pressure Support Not Reportable Sodium 138 Potassium 3.6 Chloride 101 Carbon Dioxide 26 Anion Gap 11 BUN 46 H D Creatinine 2.04 H Estim Creat Clear Calc 37 Estimated GFR 24 L Glucose 228 H POC Capillary Glucose 189 H Calcium 8.2 L Phosphorus 4.4 Magnesium 2.2 Total Bilirubin 0.9 AST 17 ALT 89 H Alkaline Phosphatase 125 Total Protein 6.0 L Albumin 2.8 L Post-procedural complaints: none Patient Feedback: Patient satisfied with anesthetic care.
--- NOTE | 2024-04-14 11:33 | PCFNICU ---
ICU Rounding Note: Pt current nutrition is Nepro at 40 ml/hr. Last recorded weight is 144.9 kg, down from 148.9 kg on admit. Bowel Motility: +BM reported 04/14 Labs Reviewed:Glu 228, BUN 46, Cr 2.04, GFR 24, Alb 2.8 Meds Noted: Protonix, NovoLog, Lantus, Eliquis Skin: WNL Additional Notes: Patient current with Trach/PEG and Dialysis catheter. Tube feedings are being tolerated of Nepro at 40 ml/hr. Flush 30 ml q 4 hours. Awaiting LTAC bed for discharge. Following daily in ICU rounds. Will reassess weight, labs, skin, diet orders, meds, tube feeding tolerance every Thursday and Thursday.
[2024-04-14 11:59] LABS: Glucose Point of Care 236 mg/dl (65-105)
[2024-04-14 12:04] LABS: Glucose Point of Care 219 mg/dl (65-105)
--- NOTE | 2024-04-14 12:57 | P.PNNP_ITS ---
Progress Note: A&P Assessment and Plan (1) VINCENT (acute kidney injury): Code(s): N17.9 - Acute kidney failure, unspecified Status: Acute Assessment and Plan: * as noted by trend of labs since admission * normal creatinine at baseline and on admission * multifactorial etiology: * hemodynamic instability/shock * infection/sepsis (pneumonia + RSV) * ARB + HCTZ use prior to admission * contrast (CTA of chest on 03/27) * hypoxia * afib with RVR * prerenal factors (?) * evaluation to date noted: * renal ultrasound without hydro * urine electrolytes prerenal * urine eosinophils negative * CPK normal * initiated on CONDUCTOR/ENGINEER/dialysis on 04/02/24 * HD tomorrow and continue M/W/F schedule for now * making urine but BUN/creatinine continues to rise w/o dialytic support (and still with pulmonary edema on CXR) * considered scheduled diuretic therapy * s/p tunneled HD catheter placement on 04/13 * follow trend of repeat labs and UOP to assess for potential renal recovery (2) Acute hypoxic respiratory failure: Code(s): J96.01 - Acute respiratory failure with hypoxia Status: Acute Assessment and Plan: * seconeary to pneumonia, RSV, and possible CHF * CTA of chest noted: * no evidence of pulmonary embolus, aortic dissection, or aortic aneurysm * extensive right lower lobe pneumonia * probable mildly prominent reactive lymphadenopathy the right axilla and subcarinal region * emergently intubated 03/28 * completed course of steroids * follow respiratory status * s/p tracheostomy (on 04/11) for prolonged ventilator weaning * weaning as tolerated (3) Septic shock: Code(s): A41.9 - Sepsis, unspecified organism; R65.21 - Severe sepsis with septic shock Status: Acute Assessment and Plan: * resolved * secondary to extensive pneumonia +/- RSV * completed course antibiotics * cultures negative to date * off pressors currently (4) Atrial fibrillation with RVR: Code(s): I48.91 - Unspecified atrial fibrillation Status: Acute Assessment and Plan: * rate control strategy * on Eliquis * Echo results noted * Cardiology following (5) Anemia: Code(s): D64.9 - Anemia, unspecified Status: Acute Assessment and Plan: * likely a manifestation of VINCENT and acute illness * on DANG with dialysis * follow trend of H/H (6) Community acquired pneumonia: Code(s): J18.9 - Pneumonia, unspecified organism Status: Acute Assessment and Plan: * as noted by admission imaging * culture data noted (negative to date) * completed course of antibiotics (7) Elevated liver enzymes: Code(s): R74.8 - Abnormal levels of other serum enzymes Status: Acute Assessment and Plan: * thought to be secondary to shock liver * statin on hold * liver enzymes fluctuating * follow trend (8) Diabetes: Code(s): E11.9 - Type 2 diabetes mellitus without complications Status: Chronic Assessment and Plan: * follow accu-cheks * glycemic control per hospitalist/documentation supervisor Will continue to follow. L Subjective Date/time seen: 04/14/24 12:57 Interval history: Follow-up for acute kidney injury/acute renal failure requiring hemodialysis. Tolerated dialysis treatment as well as placement of tunneled HD catheter placement yesterday; remains on mechanical ventilation via tracheostomy; off sedation and following simple commands and able to answer questions with nodding; still making urine but fluctuating; remains hemodynamically stable at this time. Exam 2 Narrative: General: elderly but WD/WN female trached/sedated and on mechanical ventilation Heart: IRRR, tachycardic, normal S1 and S2; no rub Lungs: coarse breath sounds; some crackles at bases Abdomen: soft, nontender, nondistended, positive bowel sounds Extremities: no cyanosis or clubbing; trace edema Skin: warm and intact Objective Data Vital Signs Vital Signs: Vital Signs Temp Pulse Resp BP Pulse Ox O2 Del Method FiO2 04/14/24 12:26 100.1 F H 04/14/24 12:00 100.1 F H 104 H 22 H 108/73 94 Mechanical Ventilation 35 04/14/24 11:00 95 98 Mechanical Ventilation 40 04/14/24 10:00 125 H 04/14/24 10:00 99.8 F H 125 H 22 H 122/62 91 04/14/24 09:52 120 H 90 Mechanical Ventilation 40 04/14/24 09:20 35 04/14/24 08:55 108 H 95 Mechanical Ventilation 40 04/14/24 08:00 110 H 04/14/24 08:00 Mechanical Ventilation 04/14/24 08:00 40 04/14/24 08:00 99.5 F 123 H 24 H 132/82 95 04/14/24 06:00 121 H 04/14/24 06:00 99.6 F 122 H 27 H 127/77 95 04/14/24 05:05 128 H 94 Mechanical Ventilation 40 04/14/24 04:00 109 H 04/14/24 04:00 Mechanical Ventilation 40 04/14/24 04:00 40 04/14/24 04:00 99.7 F H 115 H 23 H 117/85 96 04/14/24 02:26 99.8 F H 04/14/24 02:08 110 H 98 Mechanical Ventilation 40 04/14/24 02:00 118 H 04/14/24 02:00 99.8 F H 118 H 22 H 116/71 95 04/14/24 01:26 99.8 F H 04/14/24 00:00 107 H 04/14/24 00:00 Mechanical Ventilation 40 04/14/24 00:00 99.7 F H 120 H 25 H 132/83 95 04/14/24 00:00 40 04/13/24 23:20 120 H 96 Mechanical Ventilation 40 04/13/24 22:01 120 H 04/13/24 22:00 99.6 F 115 H 23 H 118/72 96 04/13/24 22:00 115 H 04/13/24 20:20 127 H 96 Mechanical Ventilation 40 04/13/24 20:00 99.6 F 123 H 23 H 118/68 97 04/13/24 20:00 149 H 04/13/24 20:00 40 04/13/24 20:00 Mechanical Ventilation 40 04/13/24 18:06 126 H 23 H 04/13/24 18:00 99.3 F 126 H 23 H 109/70 97 04/13/24 18:00 126 H 04/13/24 16:49 99.9 F H 132 H 22 H 123/71 96 04/13/24 16:45 124 H 96 Mechanical Ventilation 40 04/13/24 16:15 Mechanical Ventilation 04/13/24 16:00 122 H 123/71 04/13/24 16:00 122 H 24 H 04/13/24 16:00 132 H 04/13/24 16:00 40 04/13/24 16:00 99.5 F 132 H 25 H 119/78 96 Intake/Output Intake/Output: Intake & Output 02/1004/12/24 04/13/24 04/14/24 23:59 23:59 23:59 23:59 Intake Total 855.4 301.1 315 488 Output Total 3600 575 3275 350 Balance -2744.6 -273.9 -2960 138 Meds/Results Medications: Active Medications Generic Name Dose Route Start Last Admin Trade Name Machoq PRN Reason Stop Dose Admin Acetaminophen 650 mg 03/27/24 14:41 04/14/24 12:26 Acetaminophen 325 Mg Tablet PO 650 mg Q4H PRN Administration Mild Pain (1-3) or Fever Alteplase, Recombinant 2 mg 04/06/24 03:11 04/06/24 03:22 Alteplase 2 Mg Vial (Cathflo) IV PUSH 2 mg ONCE PRN Administration Line Occlusion Amiodarone HCl 400 mg 04/01/24 10:40 04/14/24 09:46 Amiodarone Hcl 200 Mg Tablet PO 400 mg DAILY LAVERNE Administration Apixaban 5 mg 04/13/24 21:00 04/14/24 09:47 Apixaban 5 Mg Tablet PO 5 mg Q12HR LAVERNE Administration Bisacodyl 10 mg 04/10/24 02:20 04/10/24 06:21 Bisacodyl 10 Mg Suppository RECTAL 10 mg QAM PRN Administration Constipation Cyanocobalamin 1,000 mcg 03/27/24 17:00 04/14/24 09:47 Cyanocobalamin 1,000 Mcg Tablet PO 1,000 mcg BID LAVERNE Administration Dextrose 12.5 gm 03/27/24 08:57 Dextrose 50% 25 Gm/50 Ml Syringe IV PUSH PRN PRN Hypoglycemia Protocol Docosanol 1 applic 04/09/24 09:00 04/14/24 12:01 Docosanol 10% Cream 2 Gm TOPICAL 1 applic 5 TIMES DAILY LAVERNE Administration Glucagon 1 mg 03/27/24 08:57 Glucagon For Inj 1 Mg Vial IM PRN PRN Hypoglycemia Protocol Glucose 15 gm 03/27/24 08:57 Glucose Oral Gel 15 Gm Of Glucse In 37.5 Gm Tube PO PRN PRN Hypoglycemia Protocol Dextrose 1,000 mls @ 100 mls/hr 03/27/24 08:57 Dextrose 5% 1,000 Ml IVPB PRN PRN Hypoglycemia Protocol Albumin Human 50 mls @ 999 mls/hr 04/03/24 09:19 04/07/24 15:05 Albutein IVPB 05/03/24 09:18 100 mls/hr Q10M PRN Administration HYPOTENSION Insulin Aspart 4 - 8 units 03/29/24 13:00 04/14/24 12:01 Insulin Aspart (*Bkc) 100 Units/Ml SUB-Q 4 units Q4HR LAVERNE Administration Protocol Metoprolol Tartrate 5 mg 04/12/24 00:00 04/12/24 06:14 Metoprolol Tartrate Inj 5 Mg/5 Ml Vial IV PUSH Not Given Q6HR LAVERNE Metoprolol Tartrate 50 mg 04/14/24 09:00 04/14/24 09:47 Metoprolol Tartrate 50 Mg Tab PO 50 mg Q12HR LAVERNE Administration Midazolam HCl 2 mg 04/11/24 16:46 04/14/24 05:28 Midazolam Hcl (*Crx) 2 Mg/2 Ml Vial IV PUSH 2 mg Q2H PRN Administration Ventilator Asynchrony Multi-Ingred Cream/Lotion/Oil/Oint 1 applic 03/28/24 21:00 04/14/24 09:47 Mineral Oil/White Petrolatum Ointment EACH EYE 1 applic Q12HR LAVERNE Administration Pantoprazole Sodium 40 mg 03/29/24 09:00 04/14/24 09:46 Pantoprazole Sodium Iv 40 Mg Vial IV PUSH 40 mg DAILY LAVERNE Administration Polyethylene Glycol 17 gm 04/12/24 07:50 Polyethylene Glycol 3350 17 Gm Powd.Pack PO QAM PRN Constipation Rosuvastatin Calcium 20 mg 03/28/24 09:00 03/31/24 09:28 Rosuvastatin 20 Mg Tablet PO Not Given DAILY LAVERNE Senna/Docusate Sodium 1 tab 04/07/24 21:00 04/13/24 22:02 Senna/Docusate Sodium Tablet PO 1 tab HS LAVERNE Administration Sodium Chloride 10 ml 03/28/24 22:00 04/14/24 14:06 Central Line Flush IV PUSH 10 ml Q8HR LAVERNE Administration Sodium Chloride 10 ml 03/28/24 16:14 Central Line Flush IV PUSH PRN PRN with TPN bag changes Sodium Chloride 20 ml 03/28/24 16:14 Central Line Flush IV PUSH PRN PRN after blood draws Radiology Results: ITS Impressions Chest CTA 03/27/24 06:41 Impression: No evidence of pulmonary embolus, aortic dissection, or aortic aneurysm. Extensive right lower lobe pneumonia. Probable mildly prominent reactive lymphadenopathy the right axilla and subcarinal region. Head CT 03/28/24 22:59 IMPRESSION: 1. Normal brain. Abdomen X-Ray 03/29/24 08:59 IMPRESSION: 1. Lines and tubes in expected positions. 2. Diffuse bilateral lung disease, right greater than left, consistent with multifocal pneumonia. Renal Ultrasound 03/31/24 15:34 IMPRESSION: No hydronephrosis. Perinephric fluid collection adjacent to the left lower pole. Abdomen Ultrasound 03/31/24 15:39 IMPRESSION: Status post cholecystectomy. Pancreas poorly visualized. Otherwise normal abdominal ultrasound findings. Chest X-Ray 04/14/24 08:03 Impression: Support tubes, as above. Left-sided central venous line tip just enters into the right brachiocephalic vein. Mild bibasilar haziness, right worse than left. Correlate for bibasilar pulmonary edema versus pneumonia. Labs Labs: Laboratory Tests 04/14/24 05:18 04/14/24 05:18 Calcium 8.2 L Phosphorus 4.4 Magnesium 2.2 Total Bilirubin 0.9 AST 17 ALT 89 H Alkaline Phosphatase 125 Total Protein 6.0 L Albumin 2.8 L
--- NOTE | 2024-04-14 13:20 | WPDINTPN ---
Progress Note: A&P Assessment and Plan (1) Acute hypoxic respiratory failure: Code(s): J96.01 - Acute respiratory failure with hypoxia Status: Acute Assessment and Plan: Acute hypoxic respiratory failure secondary to pneumonia and congestive heart failure Patient now emergently intubated 03/28 -03/28: Repeat PCR was positive RSV -continue isolation -chest x-ray and ABGs reviewed this morning -Currently PEEP to 10 and FiO2 down to 30% -patient will require additional fluid removal before considering weaning from mechanical ventilation -04/09: Started on Precedex infusion, Versed and fentanyl infusion were discontinued -status post stress dose steroids. -discussed with Nephrology, patient did have if improved urine output over the last 24 hours, and since she did not tolerate dialysis well, smooth and burr worker composites recommended commended Bumex 2 mg IV x1. If she does not respond well, will have to dialyze the patient 04/06: Patient did respond to Bumex that was given yesterday with 1900 mL urine output in the last 24 hours 04/07: A new dialysis catheter has been placed in the left IJ, currently functioning well. Have discussed with Nephrology to continue to remove fluid 04/08: Patient was dialyzed yesterday with 1000 mL in fluid removal, urine output has been adequate, I have asked the bedside RN to turn of the sedation, patient remains somnolent, will place patient on ASV, start Precedex infusion since she is getting tachycardic and hypertensive. Once she is more awake will place her on SBT and evaluate for extubation -04/09: Patient getting dialyzed today. Received Bumex last night with good urine output. Chest x-ray shows worsening airspace opacity right mid and lower lung zones. Worsened small right pleural effusion. FiO2 requirements have increased to 60% from 35%. Place patient on pressure support ventilation, 02/06, low tidal volumes, tachypnea, tachycardia, had to be placed back on CMV mode Discussed with and daughter and updated them with patient's condition, intubated for almost 2 weeks, they agreeable with tracheostomy, as scheduled and with ENT for 04/11/2024. -GI has been consulted for PEG tube placement 04/10: Tried to place patient again on pressure support ventilation 02/06, was not getting adequate tidal volumes, was also tachypneic. Also tried ASV, her respiratory rate was too low. I have asked the bedside RN to come down on her Precedex 04/11: Status post tracheostomy 04/12: PEG tube scheduled for today, Placed patient on ASV mode of ventilation, will switch to pressure support after PEG tube placement 04/13: Patient getting dialysis, after which will switch to ASV mode of ventilation or pressure support ventilation 04/14: Increased secretions around the tracheostomy incision site, sent for culture. Currently afebrile, normal WBC count, will hold antibiotic. Place him this placed on ASV mode of ventilation and tolerating well, almost all of her breaths are spontaneous 03/27 CTA chest Impression: No evidence of pulmonary embolus, aortic dissection, or aortic aneurysm. Extensive right lower lobe pneumonia. Probable mildly prominent reactive lymphadenopathy the right axilla and subcarinal region. (2) Sepsis: Code(s): A41.9 - Sepsis, unspecified organism Status: Acute Assessment and Plan: RESOLVED Sepsis/septic shock secondary to community-acquired pneumonia, initial procalcitonin level 4.4 Blood cultures ordered and negative till now Sputum cultures negative Urine Legionella and pneumococcal antigen negative Status post cefepime and azithromycin MRSA screen negative. Vancomycin discontinued (3) Diabetes: Code(s): E11.9 - Type 2 diabetes mellitus without complications Status: Chronic Assessment and Plan: Status post insulin infusion Continue to hold Lantus to 60 units q.12 since blood sugars on trending down after switching patient to Nepro on tube feeds Status post steroids, also she got dialyzed better with the new dialysis catheter in the right IJ, likely dropped her blood sugars. -continue Accu-Cheks and sliding scale insulin -tube feeds restarted after PEG tube placement on 02/10/2025, tolerating (4) Atrial fibrillation with RVR: Code(s): I48.91 - Unspecified atrial fibrillation Status: Acute Assessment and Plan: Patient was amiodarone infusion which has been switched to p.o. amiodarone per tube metoprolol by Cardiology Patient is anticoagulated with Eliquis, -continue metoprolol and amiodarone per tube Echo Summary 1. Very technically difficult study with limited views. 2. Left ventricular chamber dimension is normal. 3. Left ventricular systolic function is at lower limits of normal, estimated at 50-55%. 4. Left atrial chamber dimension is moderately enlarged (5) Community acquired pneumonia: Code(s): J18.9 - Pneumonia, unspecified organism Status: Acute Assessment and Plan: See above (6) Altered mental status: Code(s): R41.82 - Altered mental status, unspecified Status: Acute Assessment and Plan: RESOLVED Likely secondary to hypoxia. Patient had CT scan of the head recently done which was unremarkable Repeat head CT on 03/28 was again unremarkable Ammonia levels within normal limit TSH was normal -patient continues to open her eyes and follows simple commands (7) Electrolyte abnormality: Code(s): E87.8 - Other disorders of electrolyte and fluid balance, not elsewhere classified Status: Acute Assessment and Plan: Patient on dialysis (8) Shock: Code(s): R57.9 - Shock, unspecified Status: Acute Assessment and Plan: RESOLVED Patient was on Levophed and vasopressin infusion which are currently off -off stress dose steroid - status post 25% albumin -Hold further crystalloids (9) VINCENT (acute kidney injury): Code(s): N17.9 - Acute kidney failure, unspecified Status: Acute Assessment and Plan: Increase in creatinine and drop in urine output likely secondary to shock Patient received IV fluids and 5% albumin earlier in the course. norm CK level Renal ultrasound showed No hydronephrosis. Perinephric fluid collection adjacent to the left lower pole. Nephrology following Continued maintain mean arterial pressure with vasopressors if needed / Discussed with smooth and burr worker composites and patient's family. Discussed risks and benefits of starting hemodialysis. Sales Coach and patient's family in agreement. Patient's consented to proceed. Temporary dialysis catheter placed. Patient was dialyzed. Further dialysis per as per Nephrology -04/04: Patient did not tolerate dialysis as she became tachypneic, tachycardic and hypotensive requiring restarting Levophed. -04/05: Sales Coach recommended giving Bumex 2 mg IV x1 since patient had slightly improved urine output over the last 24 hours and a creatinine and BUN trending downward, - will monitor urine output, renal function and electrolytes 04/06: Discuss with Nephrology, patient received dialysis today with no removal of fluid 04/07: New left IJ dialysis catheter was inserted today, currently functioning well. Right IJ dialysis catheter was removed -dialysis per Nephrology 04/13: Status post tunneled dialysis catheter placement by surgery (10) Elevated liver enzymes: Code(s): R74.8 - Abnormal levels of other serum enzymes Status: Acute Assessment and Plan: Patient is status post cholecystectomy Elevated AST ALT and alkaline phosphatase likely secondary to shock liver Hold statin Right upper quadrant ultrasound - Status post cholecystectomy. Pancreas poorly visualized. Otherwise normal abdominal ultrasound findings. While hepatitis panel was negative Levels were increasing I have discussed with Cardiology regarding potential amiodarone related hepatotoxicity. Patient was on IV amiodarone earlier for rate control as patient was in AFib with RVR. It was switched to p.o. as the rate improved. / amiodarone was held GI consult and following LFTs have been improving, continue to monitor Plan DVT prophylaxis -continue Eliquis Stress ulcer prophylaxis -protonix Nutrition -tolerating tube feeds Code Status - Full Code Total Critical Care Time - 33 minutes Discussed patient's daughter and has been and updated her with patient's condition and plan of care. They are aware that Care coordination is working on LTAC placement. I answered all their questions Due to a high probability of clinically significant, life threatening deterioration, the patient required my highest level of preparedness to intervene emergently and I personally spent this critical care time directly and personally managing the patient. This critical care time included obtaining a history; examining the patient; pulse oximetry; ordering and review of studies; arranging urgent treatment with development of a management plan; evaluation of patient's response to treatment; frequent reassessment; and discussions with other providers. It was exclusive of separately billable procedures and treating other patients and teaching time. Please see Assessment and Plan section and the rest of the note for further information on patient assessment and treatment This dictation may have been done utilizing a voice recognition system. Attempts have been made to correct errors. However, there may be uncorrected grammatical, spelling, and recognitions errors present. Subjective Date/time seen: 04/14/24 13:20 Interval history: 68yo female with AFib s/p SHAYY cardioversion that was unsuccessful, KAREN not using CPAP, DM, HTN and endometrial cancer who presents with shortness of breath, leg swelling and weight gain over the past few weeks. Now in with respiratory failure secondary to pneumonia with septic shock. Intubated and on mechanical ventilation. RSV positive, acute kidney injury status post dialysis catheter and dialysis 04/07: A new Left IJ dialysis catheter was inserted 04/11: Status post tracheostomy by ENT 04/12: PEG tube placed by GI 04/13: Tunnel dialysis catheter placement by surgery 04/14/2024: Patient seen and examined the ICU, remains intubated CMV mode of ventilation, peep of 8, 40% FiO2. On no sedation, is awake, alert, follows simple commands in all extremities and nods to questions. Patient is in AFib, better rate controlled. Continues to make decent urine output, afebrile. Hemodynamically stable. Tolerating tube feeds, FMS has been removed and she has no formed stools. There are increased secretions from around the tracheostomy incision site Review of Systems Review of Systems: ROS unobtainable: Yes unobtainable due to endotracheal tube, unobtainable due to medical condition and unobtainable due to mental status Exam Narrative: General: Patient on Precedex infusion, in no acute distress Lungs/Chest: Coarse breath sounds bilaterally, no wheezing, decreased air entry at bases Rt > Lt, tracheostomy in place Cardiac: Irregularly irregular, h rate control Circulation: Pedal pulses are intact and symmetrical. Abdomen: Normoactive bowel sounds bowel sounds. Morbidly Obese. Soft. NT. ND. PEG tube in place Extremities: No clubbing, cyanosis, bilateral upper and lower extremity edema improving : Can in place Neurologic: Status post tracheostomy, no sedated, opens her eyes, follows simple command in all extremities, pupils equal and reactive to light Objective Data Vital Signs Vital Signs: Vital Signs - 24 hr 04/13/24 14:00 04/13/24 14:00 04/13/24 14:00 Temperature Pulse Rate 126 H 126 H 126 H Respiratory Rate 23 H Blood Pressure 127/76 Pulse Oximetry Oxygen Delivery Fraction of Inspired Oxygen 04/13/24 14:00 04/13/24 14:23 04/13/24 16:00 Temperature 99.8 F H 99.5 F Pulse Rate 126 H 125 H 132 H Respiratory Rate 23 H 25 H Blood Pressure 127/76 119/78 Pulse Oximetry 96 97 96 Oxygen Delivery Mechanical Ventilation Fraction of Inspired Oxygen 40 04/13/24 16:00 04/13/24 16:00 04/13/24 16:00 Temperature Pulse Rate 132 H 122 H Respiratory Rate 24 H Blood Pressure Pulse Oximetry Oxygen Delivery Fraction of Inspired Oxygen 40 04/13/24 16:00 04/13/24 16:15 04/13/24 16:45 Temperature Pulse Rate 122 H 124 H Respiratory Rate Blood Pressure 123/71 Pulse Oximetry 96 Oxygen Delivery Mechanical Ventilation Mechanical Ventilation Fraction of Inspired Oxygen 40 04/13/24 16:49 04/13/24 18:00 04/13/24 18:00 Temperature 99.9 F H 99.3 F Pulse Rate 132 H 126 H 126 H Respiratory Rate 22 H 23 H Blood Pressure 123/71 109/70 Pulse Oximetry 96 97 Oxygen Delivery Fraction of Inspired Oxygen 04/13/24 18:06 04/13/24 20:00 04/13/24 20:00 Temperature Pulse Rate 126 H Respiratory Rate 23 H Blood Pressure Pulse Oximetry Oxygen Delivery Mechanical Ventilation Fraction of Inspired Oxygen 40 40 04/13/24 20:00 04/13/24 20:00 04/13/24 20:20 Temperature 99.6 F Pulse Rate 149 H 123 H 127 H Respiratory Rate 23 H Blood Pressure 118/68 Pulse Oximetry 97 96 Oxygen Delivery Mechanical Ventilation Fraction of Inspired Oxygen 40 04/13/24 22:00 04/13/24 22:00 04/13/24 22:01 Temperature 99.6 F Pulse Rate 115 H 115 H 120 H Respiratory Rate 23 H Blood Pressure 118/72 Pulse Oximetry 96 Oxygen Delivery Fraction of Inspired Oxygen 04/13/24 23:20 04/14/24 00:00 04/14/24 00:00 Temperature 99.7 F H Pulse Rate 120 H 120 H Respiratory Rate 25 H Blood Pressure 132/83 Pulse Oximetry 96 95 Oxygen Delivery Mechanical Ventilation Fraction of Inspired Oxygen 40 40 04/14/24 00:00 04/14/24 00:00 04/14/24 01:26 Temperature 99.8 F H Pulse Rate 107 H Respiratory Rate Blood Pressure Pulse Oximetry Oxygen Delivery Mechanical Ventilation Fraction of Inspired Oxygen 40 04/14/24 02:00 04/14/24 02:00 04/14/24 02:08 Temperature 99.8 F H Pulse Rate 118 H 118 H 110 H Respiratory Rate 22 H Blood Pressure 116/71 Pulse Oximetry 95 98 Oxygen Delivery Mechanical Ventilation Fraction of Inspired Oxygen 40 04/14/24 02:26 04/14/24 04:00 04/14/24 04:00 Temperature 99.8 F H 99.7 F H Pulse Rate 115 H Respiratory Rate 23 H Blood Pressure 117/85 Pulse Oximetry 96 Oxygen Delivery Fraction of Inspired Oxygen 40 04/14/24 04:00 04/14/24 04:00 04/14/24 05:05 Temperature Pulse Rate 109 H 128 H Respiratory Rate Blood Pressure Pulse Oximetry 94 Oxygen Delivery Mechanical Ventilation Mechanical Ventilation Fraction of Inspired Oxygen 40 40 04/14/24 06:00 04/14/24 06:00 04/14/24 08:00 Temperature 99.6 F 99.5 F Pulse Rate 122 H 121 H 123 H Respiratory Rate 27 H 24 H Blood Pressure 127/77 132/82 Pulse Oximetry 95 95 Oxygen Delivery Fraction of Inspired Oxygen 04/14/24 08:00 04/14/24 08:00 04/14/24 08:00 Temperature Pulse Rate 110 H Respiratory Rate Blood Pressure Pulse Oximetry Oxygen Delivery Mechanical Ventilation Fraction of Inspired Oxygen 40 04/14/24 08:55 04/14/24 09:20 04/14/24 09:52 Temperature Pulse Rate 108 H 120 H Respiratory Rate Blood Pressure Pulse Oximetry 95 90 Oxygen Delivery Mechanical Ventilation Mechanical Ventilation Fraction of Inspired Oxygen 40 35 40 04/14/24 10:00 04/14/24 10:00 04/14/24 11:00 Temperature 99.8 F H Pulse Rate 125 H 125 H 95 Respiratory Rate 22 H Blood Pressure 122/62 Pulse Oximetry 91 98 Oxygen Delivery Mechanical Ventilation Fraction of Inspired Oxygen 40 04/14/24 12:00 04/14/24 12:00 04/14/24 12:00 Temperature 100.1 F H Pulse Rate 108 H 104 H Respiratory Rate 22 H Blood Pressure 108/73 Pulse Oximetry 94 Oxygen Delivery Fraction of Inspired Oxygen 35 04/14/24 12:26 Temperature 100.1 F H Pulse Rate Respiratory Rate Blood Pressure Pulse Oximetry Oxygen Delivery Fraction of Inspired Oxygen Intake/Output Intake/Output: Intake & Output 04/11/24 04/12/24 04/13/24 04/14/24 23:59 23:59 23:59 23:59 Intake Total 855.4 301.1 315 488 Output Total 3600 575 3275 350 Balance -2744.6 -273.9 -2960 138 Meds/Results Medications: Active Medications Generic Name Dose Route Start Last Admin Trade Name Freq PRN Reason Stop Dose Admin Acetaminophen 650 mg 03/27/24 14:41 04/14/24 12:26 Acetaminophen 325 Mg Tablet PO 650 mg Q4H PRN Administration Mild Pain (1-3) or Fever Alteplase, Recombinant 2 mg 04/06/24 03:11 04/06/24 03:22 Alteplase 2 Mg Vial (Cathflo) IV PUSH 2 mg ONCE PRN Administration Line Occlusion Amiodarone HCl 400 mg 04/01/24 10:40 04/14/24 09:46 Amiodarone Hcl 200 Mg Tablet PO 400 mg DAILY LAVERNE Administration Apixaban 5 mg 04/13/24 21:00 04/14/24 09:47 Apixaban 5 Mg Tablet PO 5 mg Q12HR LAVERNE Administration Bisacodyl 10 mg 04/10/24 02:20 04/10/24 06:21 Bisacodyl 10 Mg Suppository RECTAL 10 mg QAM PRN Administration Constipation Cyanocobalamin 1,000 mcg 03/27/24 17:00 04/14/24 09:47 Cyanocobalamin 1,000 Mcg Tablet PO 1,000 mcg BID LAVERNE Administration Dextrose 12.5 gm 03/27/24 08:57 Dextrose 50% 25 Gm/50 Ml Syringe IV PUSH PRN PRN Hypoglycemia Protocol Docosanol 1 applic 04/09/24 09:00 04/14/24 12:01 Docosanol 10% Cream 2 Gm TOPICAL 1 applic 5 TIMES DAILY LAVERNE Administration Glucagon 1 mg 03/27/24 08:57 Glucagon For Inj 1 Mg Vial IM PRN PRN Hypoglycemia Protocol Glucose 15 gm 03/27/24 08:57 Glucose Oral Gel 15 Gm Of Glucse In 37.5 Gm Tube PO PRN PRN Hypoglycemia Protocol Dextrose 1,000 mls @ 100 mls/hr 03/27/24 08:57 Dextrose 5% 1,000 Ml IVPB PRN PRN Hypoglycemia Protocol Albumin Human 50 mls @ 999 mls/hr 04/03/24 09:19 04/07/24 15:05 Albutein IVPB 05/03/24 09:18 100 mls/hr Q10M PRN Administration HYPOTENSION Insulin Aspart 4 - 8 units 03/29/24 13:00 04/14/24 12:01 Insulin Aspart (*Bkc) 100 Units/Ml SUB-Q 4 units Q4HR LAVERNE Administration Protocol Insulin Glargine 60 units 04/01/24 09:00 04/08/24 08:20 Insulin Glargine (*Bkc) 100 Units/Ml SUB-Q Not Given Q12HR REPLACED BY [facility] Metoprolol Tartrate 5 mg 04/12/24 00:00 04/12/24 06:14 Metoprolol Tartrate Inj 5 Mg/5 Ml Vial IV PUSH Not Given Q6HR LAVERNE Metoprolol Tartrate 50 mg 04/14/24 09:00 04/14/24 09:47 Metoprolol Tartrate 50 Mg Tab PO 50 mg Q12HR LAVERNE Administration Midazolam HCl 2 mg 04/11/24 16:46 04/14/24 05:28 Midazolam Hcl (*Crx) 2 Mg/2 Ml Vial IV PUSH 2 mg Q2H PRN Administration Ventilator Asynchrony Multi-Ingred Cream/Lotion/Oil/Oint 1 applic 03/28/24 21:00 04/14/24 09:47 Mineral Oil/White Petrolatum Ointment EACH EYE 1 applic Q12HR LAVERNE Administration Pantoprazole Sodium 40 mg 03/29/24 09:00 04/14/24 09:46 Pantoprazole Sodium Iv 40 Mg Vial IV PUSH 40 mg DAILY LAVERNE Administration Polyethylene Glycol 17 gm 04/12/24 07:50 Polyethylene Glycol 3350 17 Gm Powd.Pack PO QAM PRN Constipation Rosuvastatin Calcium 20 mg 03/28/24 09:00 03/31/24 09:28 Rosuvastatin 20 Mg Tablet PO Not Given DAILY LAVERNE Senna/Docusate Sodium 1 tab 04/07/24 21:00 04/13/24 22:02 Senna/Docusate Sodium Tablet PO 1 tab HS LAVERNE Administration Sodium Chloride 10 ml 03/28/24 22:00 04/14/24 05:28 Central Line Flush IV PUSH 10 ml Q8HR LAVERNE Administration Sodium Chloride 10 ml 03/28/24 16:14 Central Line Flush IV PUSH PRN PRN with TPN bag changes Sodium Chloride 20 ml 03/28/24 16:14 Central Line Flush IV PUSH PRN PRN after blood draws Radiology Results: ITS Impressions Chest CTA 03/27/24 06:41 Impression: No evidence of pulmonary embolus, aortic dissection, or aortic aneurysm. Extensive right lower lobe pneumonia. Probable mildly prominent reactive lymphadenopathy the right axilla and subcarinal region. Head CT 03/28/24 22:59 IMPRESSION: 1. Normal brain. Abdomen X-Ray 03/29/24 08:59 IMPRESSION: 1. Lines and tubes in expected positions. 2. Diffuse bilateral lung disease, right greater than left, consistent with multifocal pneumonia. Renal Ultrasound 03/31/24 15:34 IMPRESSION: No hydronephrosis. Perinephric fluid collection adjacent to the left lower pole. Abdomen Ultrasound 03/31/24 15:39 IMPRESSION: Status post cholecystectomy. Pancreas poorly visualized. Otherwise normal abdominal ultrasound findings. Chest X-Ray 04/14/24 08:03 Impression: Support tubes, as above. Left-sided central venous line tip just enters into the right brachiocephalic vein. Mild bibasilar haziness, right worse than left. Correlate for bibasilar pulmonary edema versus pneumonia. Labs Labs: Laboratory Results - last 24 hr 04/13/24 04/13/24 04/14/24 16:51 22:05 01:13 WBC RBC Hgb Hct MCV MCH MCHC RDW Plt Count MPV Immature Gran % (Auto) Neut % (Auto) Lymph % (Auto) [place] % (Auto) Eos % (Auto) Baso % (Auto) Lymph # (Auto) [place] # (Auto) Eos # (Auto) Baso # (Auto) Abs Immat Gran (auto) Absolute Neuts (auto) Absolute Nucleated RBC Nucleated RBC % Puncture Site ABG pH ABG pCO2 ABG pO2 ABG PO2/FiO2 Ratio ABG HCO3 ABG O2 Saturation ABG O2 Content ABG Base Excess A-a Gradient Oxyhemoglobin Carboxyhemoglobin Methemoglobin Reduced Hemoglobin Total Hemoglobin O2 Delivery Device O2 Liters/Min Minute Volume Vent Rate Vent Mode FiO2 Tidal Volume PEEP Peak Inspir Pressure Pressure Support Sodium Potassium Chloride Carbon Dioxide Anion Gap BUN Creatinine Estim Creat Clear Calc Estimated GFR Glucose POC Capillary Glucose 137 H 182 H 189 H Calcium Phosphorus Magnesium Total Bilirubin AST ALT Alkaline Phosphatase Total Protein Albumin 04/14/24 04/14/24 04/14/24 05:18 05:27 09:43 WBC 8.1 RBC 3.18 L Hgb 9.8 L Hct 30.4 L MCV 95.6 MCH 30.8 MCHC 32.2 RDW 16.8 H Plt Count 292 MPV 9.6 Immature Gran % (Auto) 0.4 Neut % (Auto) 92.6 H Lymph % (Auto) 3.7 L [place] % (Auto) 3.1 Eos % (Auto) 0.1 Baso % (Auto) 0.1 L Lymph # (Auto) 0.30 L [place] # (Auto) 0.3 Eos # (Auto) 0.0 Baso # (Auto) 0.0 Abs Immat Gran (auto) 0.03 Absolute Neuts (auto) 7.5 H Absolute Nucleated RBC 0.020 H Nucleated RBC % 0.2 Puncture Site Right radial ABG pH 7.479 H ABG pCO2 34.8 L ABG pO2 67.1 L ABG PO2/FiO2 Ratio 1.68 ABG HCO3 25.3 ABG O2 Saturation 94.7 L ABG O2 Content 13.5 L ABG Base Excess 1.9 A-a Gradient 178.1 Oxyhemoglobin 92.2 Carboxyhemoglobin 0.3 Methemoglobin 0.3 Reduced Hemoglobin 7.2 H Total Hemoglobin 10.4 L O2 Delivery Device Ventilator O2 Liters/Min Not Reportable Minute Volume Not Reportable Vent Rate 20 Vent Mode Cmv FiO2 40 Tidal Volume 400 PEEP 8 Peak Inspir Pressure Not Reportable Pressure Support Not Reportable Sodium 138 Potassium 3.6 Chloride 101 Carbon Dioxide 26 Anion Gap 11 BUN 46 H D Creatinine 2.04 H Estim Creat Clear Calc 37 Estimated GFR 24 L Glucose 228 H POC Capillary Glucose 236 H Calcium 8.2 L Phosphorus 4.4 Magnesium 2.2 Total Bilirubin 0.9 AST 17 ALT 89 H Alkaline Phosphatase 125 Total Protein 6.0 L Albumin 2.8 L 04/14/24 11:59 WBC RBC Hgb Hct MCV MCH MCHC RDW Plt Count MPV Immature Gran % (Auto) Neut % (Auto) Lymph % (Auto) [place] % (Auto) Eos % (Auto) Baso % (Auto) Lymph # (Auto) [place] # (Auto) Eos # (Auto) Baso # (Auto) Abs Immat Gran (auto) Absolute Neuts (auto) Absolute Nucleated RBC Nucleated RBC % Puncture Site ABG pH ABG pCO2 ABG pO2 ABG PO2/FiO2 Ratio ABG HCO3 ABG O2 Saturation ABG O2 Content ABG Base Excess A-a Gradient Oxyhemoglobin Carboxyhemoglobin Methemoglobin Reduced Hemoglobin Total Hemoglobin O2 Delivery Device O2 Liters/Min Minute Volume Vent Rate Vent Mode FiO2 Tidal Volume PEEP Peak Inspir Pressure Pressure Support Sodium Potassium Chloride Carbon Dioxide Anion Gap BUN Creatinine Estim Creat Clear Calc Estimated GFR Glucose POC Capillary Glucose 219 H Calcium Phosphorus Magnesium Total Bilirubin AST ALT Alkaline Phosphatase Total Protein Albumin Quality VTE Prophylaxis VTE prophylaxis: pharmacologic ordered
[2024-04-14 17:21] LABS: Glucose Point of Care 215 mg/dl (65-105)
[2024-04-14 19:54] LABS: Glucose Point of Care 234 mg/dl (65-105)
[2024-04-14] MEDS: SENNA/DOCUSATE SODIUM TABLET 1 TAB PO (20:04)
[2024-04-15] VITALS (39 sets, daily range): BP systolic 98–123; BP diastolic 51–88; PULSE 79–120; RESP 14–25; TEMP 37–38.1; O2SAT 90–99
[2024-04-15] MEDS: INSULIN ASPART (*BKC) 100 UNITS/ML SUB-Q ×5 (00:10→21:45)
[2024-04-15 00:15] LABS: Glucose Point of Care 232 mg/dl (65-105)
[2024-04-15 04:46] LABS: Base Excess ABG 3.7 mEq/l (+/-2.0); Carboxyhemoglobin 0.2 % THb (0-2.0); Fractional Inspired Oxygen 30 %; HCO3 ABG 26.8 mEq/l (22.0-26.0); Methemoglobin ABG 0.3 %THb (0-1.5); Oxygen Content ABG 14.1 %vol (16.0-22.0); Oxygen Saturation ABG 95.2 % (95.0-100.0); Oxyhemoglobin 93.7 % THb (90.0-100.0); PCO2 ABG 34.7 mmHg (35.0-45.0); PO2 ABG 68.1 mmHg (80.0-100.0); PO2 FiO2 Ratio Arterial Blood 2.27 %; Reduced Hemoglobin 5.8 %THb (0-5.0); Total Hemoglobin 10.7 g/dL (12.0-18.0)
[2024-04-15 04:47] LABS: Modified Allen's Test Pass; Site Drawn RIGHT RADIAL
[2024-04-15 04:48] LABS: Device VENTILATOR
[2024-04-15 04:49] LABS: pH ABG 7.505 (7.350-7.450)
[2024-04-15 04:50] LABS: Arterial Blood Gas Minute Volume 6.9 LPM; Arterial Blood Gas PEEP 5 cmH2O; Arterial Blood Gas Vent Mode ASV
[2024-04-15 06:18] LABS: Alanine Aminotransferase 56 U/L (6-35); Albumin Level 2.7 g/dL (3.5-5.1); Alkaline Phosphatase 113 U/L (38-126); Anion Gap 8 mmol/L (4-12); Aspartate Amino Transferase 15 U/L (14-36); Bilirubin,Total 0.7 mg/dL (0.2-1.3); Blood Urea Nitrogen 53 mg/dL (7-17); Calcium 8.3 mg/dL (8.4-10.2); Carbon Dioxide 29 mmol/L (22-30); Chloride 104 mmol/L (98-107); Estimated CRCL calculation 35 ml/min; Estimated Glomerular Filt Rate 23; Glucose 235 mg/dL (65-110); Magnesium 2.2 mg/dL (1.6-2.3); Phosphorus 3.2 mg/dL (2.5-4.5); Potassium 3.7 mmol/L (3.4-5.0); Sodium 141 mmol/L (137-145)
[2024-04-15 06:30] LABS: Basophils Percent Auto 0.2 % (0.2-1.2); Eosinophils Percent Auto 0.7 % (0-4.4); Hematocrit 29.6 % (37.0-47.0); Hemoglobin 9.3 g/dL (12.0-15.0); Immature Granulocyte Absolute 0.02 K/mm3 (0.00-0.031); Immature Granulocyte Percent A 0.3 % (0-0.5); Lymphocytes Percent Auto 5.1 % (18.3-44.2); Mean Corpuscular HGB Conc 31.4 g/dl (32-36); Mean Corpuscular Hemoglobin 30.3 pg (26-34); Mean Corpuscular Volume 96.4 fl (80-100); Mean Platelet Volume 9.6 fl (7.4-10.4); Monocytes Absolute Auto 0.3 K/mm3 (0.1-0.6); Monocytes Percent Auto 4.3 % (2.6-8.5); Neutrophils Absolute Auto 5.2 K/mm3 (1.3-6.7); Neutrophils Percent Auto 89.4 % (45.5-73.1); Platelet Count Result 288 k/mm3 (150-375); Red Blood Count 3.07 M/mm3 (4.2-5.4); Red Cell Distribution Width 16.9 % (11.5-14.5); White Blood Count 5.9 K/mm3 (4.5-10.0)
[2024-04-15] MEDS: CENTRAL LINE FLUSH 10 ML IV PUSH ×3 (06:32→20:49)
[2024-04-15 07:44] LABS: Glucose Point of Care 256 mg/dl (65-105)
[2024-04-15] MEDS: APIXABAN 5 MG TABLET PO ×2 (08:18→20:48)
[2024-04-15] MEDS: AMIODARONE HCL 200 MG TABLET 400 MG PO (08:18)
[2024-04-15] MEDS: PANTOPRAZOLE SODIUM IV 40 MG VIAL IV PUSH (08:18)
[2024-04-15] MEDS: METOPROLOL TARTRATE 50 MG TAB PO ×2 (08:18→20:48)
[2024-04-15] MEDS: CYANOCOBALAMIN 1,000 MCG TABLET 1000 MCG PO ×2 (08:18→17:52)
[2024-04-15] MEDS: DOCOSANOL 10% CREAM 2 GM 1 APPLIC TOPICAL ×5 (08:19→20:49)
[2024-04-15] MEDS: EPOETIN ALFA-EPBX 10,000 UNITS/ML VIAL 10000 UNITS IV PUSH (10:31)
[2024-04-15 11:43] LABS: Glucose Point of Care 155 mg/dl (65-105)
--- NOTE | 2024-04-15 11:47 | PCNFU ---
Nutrition Follow-Up Complete: Suboptimal Energy Intake as related to mechanical ventilation as evidenced by current tube feeding rate. Goal: Meet estimated nutritional needs. Patient to continue current goal. Pt current nutrition is Nepro at 40 ml/hr. Last recorded weight is 144.8 kg. Bowel Motility: +BM reported 04/14 Labs Reviewed: Glu 235, BUN 53, Cr 2.10, GFR 23, Hct 29.6, Hgb 9.3 Meds Noted: Lantus, NovoLog, Protonix, Eliquis, Senokot Skin: WNL Additional Notes: Dialysis today. Patient awaiting bed for placement. Current with PEG and Trach. Tube feedings are being tolerated of Nepro at 40 ml/hr. Total Nutrition: 1584 kcal/71 gm protein/640 ml water. Tube feedings meeting 100% kcal needs at 22 kcal/kg IBW and 52% protein needs at 2.0 gm/kg IBW. Would recommend adding protein modular of Prosource BID for additional protein needs. Will monitor weight, labs, skin, diet orders, meds, tube feeding tolerance every Thursday and Thursday.
--- NOTE | 2024-04-15 12:02 | P.PNNP_ITS ---
Progress Note: A&P Assessment and Plan (1) VINCENT (acute kidney injury): Code(s): N17.9 - Acute kidney failure, unspecified Status: Acute Assessment and Plan: * as noted by trend of labs since admission * normal creatinine at baseline and on admission * multifactorial etiology: * hemodynamic instability/shock * infection/sepsis (pneumonia + RSV) * ARB + HCTZ use prior to admission * contrast (CTA of chest on 03/27) * hypoxia * afib with RVR * prerenal factors (?) * evaluation to date noted: * renal ultrasound without hydro * urine electrolytes prerenal * urine eosinophils negative * CPK normal * initiated on [employer]/dialysis on 04/02/24 * HD under way. Hopefully will get 2-3 L off (2) Acute hypoxic respiratory failure: Code(s): J96.01 - Acute respiratory failure with hypoxia Status: Acute Assessment and Plan: * seconeary to pneumonia, RSV, and possible CHF * CTA of chest noted: * no evidence of pulmonary embolus, aortic dissection, or aortic aneurysm * extensive right lower lobe pneumonia * probable mildly prominent reactive lymphadenopathy the right axilla and subcarinal region * emergently intubated 03/28 * completed course of steroids * follow respiratory status * s/p tracheostomy (on 04/11) for prolonged ventilator weaning * weaning as tolerated (3) Septic shock: Code(s): A41.9 - Sepsis, unspecified organism; R65.21 - Severe sepsis with septic shock Status: Acute Assessment and Plan: * resolved * secondary to extensive pneumonia +/- RSV * completed course antibiotics * cultures negative to date * off pressors currently (4) Atrial fibrillation with RVR: Code(s): I48.91 - Unspecified atrial fibrillation Status: Acute Assessment and Plan: * heart rate in the 90s and 100s. * on Eliquis * Echo results noted * Cardiology following (5) Anemia: Code(s): D64.9 - Anemia, unspecified Status: Acute Assessment and Plan: * likely a manifestation of VINCENT and acute illness * on DANG with dialysis * follow trend of H/H (6) Community acquired pneumonia: Code(s): J18.9 - Pneumonia, unspecified organism Status: Acute Assessment and Plan: * as noted by admission imaging * culture data noted (negative to date) * completed course of antibiotics (7) Elevated liver enzymes: Code(s): R74.8 - Abnormal levels of other serum enzymes Status: Acute Assessment and Plan: * thought to be secondary to shock liver * Improved lately. (8) Diabetes: Code(s): E11.9 - Type 2 diabetes mellitus without complications Status: Chronic Assessment and Plan: * follow accu-cheks * glycemic control per hospitalist/marine electrician Subjective Date/time seen: 04/15/24 12:02 Interval history: Patient is on dialysis. Tolerating it well. She is on the ventilator. Blood pressure is doing fairly well on dialysis today. She was seen at 10:00 a.m. Exam Narrative: General: elderly but WD/WN female trached/sedated and on mechanical ventilation Heart: IRRR, tachycardic, normal S1 and S2; no rub Lungs: coarse breath sounds; some crackles at bases Abdomen: soft, nontender, nondistended, positive bowel sounds Extremities: trace edema Skin: no rash Objective Data Vital Signs Vital Signs: Vital Signs - 24 hr 04/14/24 12:26 04/14/24 14:00 04/14/24 14:00 Temperature 100.1 F H 99.6 F Pulse Rate 99 99 Respiratory Rate 23 H Blood Pressure 125/79 Pulse Oximetry 94 Oxygen Delivery Fraction of Inspired Oxygen 04/14/24 14:00 04/14/24 14:00 04/14/24 14:49 Temperature 99.6 F Pulse Rate 102 H 95 100 Respiratory Rate 21 H Blood Pressure 125/79 Pulse Oximetry 91 94 Oxygen Delivery Mechanical Ventilation Fraction of Inspired Oxygen 40 04/14/24 16:00 04/14/24 16:00 04/14/24 16:00 Temperature 99.7 F H Pulse Rate 97 Respiratory Rate 23 H Blood Pressure 115/72 Pulse Oximetry 94 Oxygen Delivery Mechanical Ventilation Fraction of Inspired Oxygen 35 04/14/24 16:00 04/14/24 17:22 04/14/24 18:00 Temperature Pulse Rate 107 H 100 93 Respiratory Rate Blood Pressure Pulse Oximetry 95 Oxygen Delivery Mechanical Ventilation Fraction of Inspired Oxygen 40 04/14/24 18:00 04/14/24 19:44 04/14/24 20:00 Temperature 99.5 F 99.6 F Pulse Rate 97 100 Respiratory Rate 24 H 20 Blood Pressure 116/68 112/73 Pulse Oximetry 97 96 95 Oxygen Delivery Mechanical Ventilation Fraction of Inspired Oxygen 40 04/14/24 20:00 04/14/24 20:00 04/14/24 20:00 Temperature Pulse Rate 108 H Respiratory Rate Blood Pressure Pulse Oximetry Oxygen Delivery Mechanical Ventilation Fraction of Inspired Oxygen 35 04/14/24 20:04 04/14/24 22:00 04/14/24 22:10 Temperature 99.7 F H Pulse Rate 114 H 90 97 Respiratory Rate 22 H Blood Pressure 112/76 Pulse Oximetry 97 Oxygen Delivery Fraction of Inspired Oxygen 04/14/24 22:23 04/15/24 00:00 04/15/24 00:00 Temperature 99.6 F Pulse Rate 93 93 Respiratory Rate 18 Blood Pressure 108/73 Pulse Oximetry 97 96 Oxygen Delivery Mechanical Ventilation Fraction of Inspired Oxygen 40 35 04/15/24 00:00 04/15/24 00:00 04/15/24 02:00 Temperature 99.6 F Pulse Rate 87 89 Respiratory Rate 20 Blood Pressure 105/65 Pulse Oximetry 97 Oxygen Delivery Mechanical Ventilation Fraction of Inspired Oxygen 04/15/24 02:00 04/15/24 02:12 04/15/24 02:24 Temperature Pulse Rate 89 90 86 Respiratory Rate Blood Pressure Pulse Oximetry 99 95 Oxygen Delivery Mechanical Ventilation Mechanical Ventilation Fraction of Inspired Oxygen 40 30 04/15/24 04:00 04/15/24 04:00 04/15/24 04:00 Temperature 99.4 F Pulse Rate 99 Respiratory Rate 14 Blood Pressure 107/70 Pulse Oximetry 96 Oxygen Delivery Mechanical Ventilation Fraction of Inspired Oxygen 30 04/15/24 04:00 04/15/24 04:41 04/15/24 06:00 Temperature 99.2 F Pulse Rate 93 95 96 Respiratory Rate 17 Blood Pressure 115/86 Pulse Oximetry 95 93 Oxygen Delivery Mechanical Ventilation Fraction of Inspired Oxygen 30 04/15/24 06:00 04/15/24 08:00 04/15/24 08:00 Temperature 99.4 F Pulse Rate 95 103 H Respiratory Rate 20 Blood Pressure 116/85 Pulse Oximetry 93 Oxygen Delivery Fraction of Inspired Oxygen 30 04/15/24 08:00 04/15/24 08:00 04/15/24 08:18 Temperature Pulse Rate 111 H 118 H Respiratory Rate Blood Pressure Pulse Oximetry 93 Oxygen Delivery Mechanical Ventilation Fraction of Inspired Oxygen 30 04/15/24 08:18 04/15/24 09:38 04/15/24 09:38 Temperature 99.7 F H Pulse Rate 118 H 98 Respiratory Rate 20 Blood Pressure 123/82 Pulse Oximetry 93 Oxygen Delivery Fraction of Inspired Oxygen 30 04/15/24 09:42 04/15/24 09:45 04/15/24 10:00 Temperature Pulse Rate 96 96 100 Respiratory Rate Blood Pressure 108/51 L 119/88 121/87 Pulse Oximetry Oxygen Delivery Fraction of Inspired Oxygen 04/15/24 10:00 04/15/24 10:00 04/15/24 10:15 Temperature 99.7 F H Pulse Rate 95 116 H 91 Respiratory Rate 17 Blood Pressure 121/87 115/75 Pulse Oximetry 94 Oxygen Delivery Fraction of Inspired Oxygen 04/15/24 10:30 04/15/24 10:45 04/15/24 10:48 Temperature Pulse Rate 105 H 109 H 106 H Respiratory Rate Blood Pressure 109/73 116/76 Pulse Oximetry 92 Oxygen Delivery Mechanical Ventilation Fraction of Inspired Oxygen 30 04/15/24 11:00 04/15/24 11:15 04/15/24 11:30 Temperature Pulse Rate 115 H 106 H 113 H Respiratory Rate Blood Pressure 108/70 117/81 113/77 Pulse Oximetry Oxygen Delivery Fraction of Inspired Oxygen 04/15/24 11:45 Temperature Pulse Rate 111 H Respiratory Rate Blood Pressure 116/71 Pulse Oximetry Oxygen Delivery Fraction of Inspired Oxygen Intake/Output Intake/Output: Intake & Output 04/12/24 04/13/24 04/14/24 04/15/24 23:59 23:59 23:59 23:59 Intake Total 301.1 315 1238 594 Output Total 575 3275 750 400 Balance -273.9 -2960 488 194 Meds/Results Medications: Active Medications Generic Name Dose Route Start Last Admin Trade Name Freq PRN Reason Stop Dose Admin Acetaminophen 650 mg 03/27/24 14:41 04/14/24 12:26 Acetaminophen 325 Mg Tablet PO 650 mg Q4H PRN Administration Mild Pain (1-3) or Fever Alteplase, Recombinant 2 mg 04/06/24 03:11 04/06/24 03:22 Alteplase 2 Mg Vial (Cathflo) IV PUSH 2 mg ONCE PRN Administration Line Occlusion Amiodarone HCl 400 mg 04/01/24 10:40 04/15/24 08:18 Amiodarone Hcl 200 Mg Tablet PO 400 mg DAILY LAVERNE Administration Apixaban 5 mg 04/13/24 21:00 04/15/24 08:18 Apixaban 5 Mg Tablet PO 5 mg Q12HR LAVERNE Administration Bisacodyl 10 mg 04/10/24 02:20 04/10/24 06:21 Bisacodyl 10 Mg Suppository RECTAL 10 mg QAM PRN Administration Constipation Cyanocobalamin 1,000 mcg 03/27/24 17:00 04/15/24 08:18 Cyanocobalamin 1,000 Mcg Tablet PO 1,000 mcg BID LAVERNE Administration Dextrose 12.5 gm 03/27/24 08:57 Dextrose 50% 25 Gm/50 Ml Syringe IV PUSH PRN PRN Hypoglycemia Protocol Docosanol 1 applic 04/09/24 09:00 04/15/24 11:36 Docosanol 10% Cream 2 Gm TOPICAL 1 applic 5 TIMES DAILY LAVERNE Administration Epoetin Marck-epbx 10,000 units 04/15/24 19:03 04/15/24 10:31 Epoetin Marck-Epbx 10,000 Units/Ml Vial IV PUSH 04/15/24 19:04 10,000 units ONCE ONE Administration Glucagon 1 mg 03/27/24 08:57 Glucagon For Inj 1 Mg Vial IM PRN PRN Hypoglycemia Protocol Glucose 15 gm 03/27/24 08:57 Glucose Oral Gel 15 Gm Of Glucse In 37.5 Gm Tube PO PRN PRN Hypoglycemia Protocol Dextrose 1,000 mls @ 100 mls/hr 03/27/24 08:57 Dextrose 5% 1,000 Ml IVPB PRN PRN Hypoglycemia Protocol Albumin Human 50 mls @ 999 mls/hr 04/03/24 09:19 04/07/24 15:05 Albutein IVPB 05/03/24 09:18 100 mls/hr Q10M PRN Administration HYPOTENSION Insulin Aspart 4 - 8 units 03/29/24 13:00 04/15/24 08:17 Insulin Aspart (*Bkc) 100 Units/Ml SUB-Q 5 units Q4HR LAVERNE Administration Protocol Metoprolol Tartrate 5 mg 04/12/24 00:00 04/12/24 06:14 Metoprolol Tartrate Inj 5 Mg/5 Ml Vial IV PUSH Not Given Q6HR LAVERNE Metoprolol Tartrate 50 mg 04/14/24 09:00 04/15/24 08:18 Metoprolol Tartrate 50 Mg Tab PO 50 mg Q12HR LAVERNE Administration Midazolam HCl 2 mg 04/11/24 16:46 04/14/24 05:28 Midazolam Hcl (*Crx) 2 Mg/2 Ml Vial IV PUSH 2 mg Q2H PRN Administration Ventilator Asynchrony Multi-Ingred Cream/Lotion/Oil/Oint 1 applic 03/28/24 21:00 04/15/24 08:18 Mineral Oil/White Petrolatum Ointment EACH EYE Not Given Q12HR LAVERNE Pantoprazole Sodium 40 mg 03/29/24 09:00 04/15/24 08:18 Pantoprazole Sodium Iv 40 Mg Vial IV PUSH 40 mg DAILY LAVERNE Administration Polyethylene Glycol 17 gm 04/12/24 07:50 Polyethylene Glycol 3350 17 Gm Powd.Pack PO QAM PRN Constipation Rosuvastatin Calcium 20 mg 03/28/24 09:00 03/31/24 09:28 Rosuvastatin 20 Mg Tablet PO Not Given DAILY LAVERNE Senna/Docusate Sodium 1 tab 04/07/24 21:00 04/14/24 20:04 Senna/Docusate Sodium Tablet PO 1 tab HS LAVERNE Administration Sodium Chloride 10 ml 03/28/24 22:00 04/15/24 06:32 Central Line Flush IV PUSH 10 ml Q8HR LAVERNE Administration Sodium Chloride 10 ml 03/28/24 16:14 Central Line Flush IV PUSH PRN PRN with TPN bag changes Sodium Chloride 20 ml 03/28/24 16:14 Central Line Flush IV PUSH PRN PRN after blood draws Radiology Results: ITS Impressions Chest CTA 03/27/24 06:41 Impression: No evidence of pulmonary embolus, aortic dissection, or aortic aneurysm. Extensive right lower lobe pneumonia. Probable mildly prominent reactive lymphadenopathy the right axilla and subcarinal region. Head CT 03/28/24 22:59 IMPRESSION: 1. Normal brain. Abdomen X-Ray 03/29/24 08:59 IMPRESSION: 1. Lines and tubes in expected positions. 2. Diffuse bilateral lung disease, right greater than left, consistent with multifocal pneumonia. Renal Ultrasound 03/31/24 15:34 IMPRESSION: No hydronephrosis. Perinephric fluid collection adjacent to the left lower pole. Abdomen Ultrasound 03/31/24 15:39 IMPRESSION: Status post cholecystectomy. Pancreas poorly visualized. Otherwise normal abdominal ultrasound findings. Chest X-Ray 04/15/24 06:36 IMPRESSION: 1. Mildly worsened airspace opacities in the perihilar regions and lower lung zones, consistent with atelectasis versus pneumonia. 2. Cardiomegaly. 3. Left-sided central line tip in the right brachiocephalic vein. Labs Labs: Laboratory Results - last 24 hr 04/14/24 04/14/24 04/14/24 11:59 17:10 19:51 WBC RBC Hgb Hct MCV MCH MCHC RDW Plt Count MPV Immature Gran % (Auto) Neut % (Auto) Lymph % (Auto) [place] % (Auto) Eos % (Auto) Baso % (Auto) Lymph # (Auto) [place] # (Auto) Eos # (Auto) Baso # (Auto) Abs Immat Gran (auto) Absolute Neuts (auto) Absolute Nucleated RBC Nucleated RBC % Puncture Site ABG pH ABG pCO2 ABG pO2 ABG PO2/FiO2 Ratio ABG HCO3 ABG O2 Saturation ABG O2 Content ABG Base Excess A-a Gradient Oxyhemoglobin Carboxyhemoglobin Methemoglobin Reduced Hemoglobin Total Hemoglobin O2 Delivery Device O2 Liters/Min Minute Volume Vent Rate Vent Mode FiO2 Tidal Volume PEEP Peak Inspir Pressure Pressure Support Sodium Potassium Chloride Carbon Dioxide Anion Gap BUN Creatinine Estim Creat Clear Calc Estimated GFR Glucose POC Capillary Glucose 219 H 215 H 234 H Calcium Phosphorus Magnesium Total Bilirubin AST ALT Alkaline Phosphatase Total Protein Albumin 04/15/24 04/15/24 04/15/24 00:03 04:35 05:53 WBC 5.9 RBC 3.07 L Hgb 9.3 L Hct 29.6 L MCV 96.4 MCH 30.3 MCHC 31.4 L RDW 16.9 H Plt Count 288 MPV 9.6 Immature Gran % (Auto) 0.3 Neut % (Auto) 89.4 H Lymph % (Auto) 5.1 L [place] % (Auto) 4.3 Eos % (Auto) 0.7 Baso % (Auto) 0.2 Lymph # (Auto) 0.30 L [place] # (Auto) 0.3 Eos # (Auto) 0.0 Baso # (Auto) 0.0 Abs Immat Gran (auto) 0.02 Absolute Neuts (auto) 5.2 Absolute Nucleated RBC 0.000 Nucleated RBC % 0.0 Puncture Site Right radial ABG pH 7.505 H* ABG pCO2 34.7 L ABG pO2 68.1 L ABG PO2/FiO2 Ratio 2.27 ABG HCO3 26.8 H ABG O2 Saturation 95.2 ABG O2 Content 14.1 L ABG Base Excess 3.7 A-a Gradient 105.0 Oxyhemoglobin 93.7 Carboxyhemoglobin 0.2 Methemoglobin 0.3 Reduced Hemoglobin 5.8 H Total Hemoglobin 10.7 L O2 Delivery Device Ventilator O2 Liters/Min Not Reportable Minute Volume 6.9 Vent Rate Not Reportable Vent Mode Asv FiO2 30 Tidal Volume Not Reportable PEEP 5 Peak Inspir Pressure Not Reportable Pressure Support Not Reportable Sodium 141 Potassium 3.7 Chloride 104 Carbon Dioxide 29 Anion Gap 8 BUN 53 H Creatinine 2.11 H Estim Creat Clear Calc 35 Estimated GFR 23 L Glucose 235 H POC Capillary Glucose 232 H Calcium 8.3 L Phosphorus 3.2 Magnesium 2.2 Total Bilirubin 0.7 AST 15 ALT 56 H Alkaline Phosphatase 113 Total Protein 6.0 L Albumin 2.7 L 04/15/24 04/15/24 07:41 11:34 WBC RBC Hgb Hct MCV MCH MCHC RDW Plt Count MPV Immature Gran % (Auto) Neut % (Auto) Lymph % (Auto) [place] % (Auto) Eos % (Auto) Baso % (Auto) Lymph # (Auto) [place] # (Auto) Eos # (Auto) Baso # (Auto) Abs Immat Gran (auto) Absolute Neuts (auto) Absolute Nucleated RBC Nucleated RBC % Puncture Site ABG pH ABG pCO2 ABG pO2 ABG PO2/FiO2 Ratio ABG HCO3 ABG O2 Saturation ABG O2 Content ABG Base Excess A-a Gradient Oxyhemoglobin Carboxyhemoglobin Methemoglobin Reduced Hemoglobin Total Hemoglobin O2 Delivery Device O2 Liters/Min Minute Volume Vent Rate Vent Mode FiO2 Tidal Volume PEEP Peak Inspir Pressure Pressure Support Sodium Potassium Chloride Carbon Dioxide Anion Gap BUN Creatinine Estim Creat Clear Calc Estimated GFR Glucose POC Capillary Glucose 256 H 155 H Calcium Phosphorus Magnesium Total Bilirubin AST ALT Alkaline Phosphatase Total Protein Albumin
--- NOTE | 2024-04-15 12:07 | P.PNINT_ITS ---
Progress Note: A&P Assessment and Plan (1) Acute hypoxic respiratory failure: Code(s): J96.01 - Acute respiratory failure with hypoxia Status: Acute Assessment and Plan: Acute hypoxic respiratory failure secondary to pneumonia and congestive heart failure Patient now emergently intubated 03/28 -03/28: Repeat PCR was positive RSV -continue isolation -chest x-ray and ABGs reviewed this morning -Currently PEEP to 10 and FiO2 down to 30% -patient will require additional fluid removal before considering weaning from mechanical ventilation -04/09: Started on Precedex infusion, Versed and fentanyl infusion were discontinued -status post stress dose steroids. -discussed with Nephrology, patient did have if improved urine output over the last 24 hours, and since she did not tolerate dialysis well, quality assurance monitor final recommended commended Bumex 2 mg IV x1. If she does not respond well, will have to dialyze the patient 04/06: Patient did respond to Bumex that was given yesterday with 1900 mL urine output in the last 24 hours 04/07: A new dialysis catheter has been placed in the left IJ, currently functioning well. Have discussed with Nephrology to continue to remove fluid 04/08: Patient was dialyzed yesterday with 1000 mL in fluid removal, urine output has been adequate, I have asked the bedside RN to turn of the sedation, patient remains somnolent, will place patient on ASV, start Precedex infusion since she is getting tachycardic and hypertensive. Once she is more awake will place her on SBT and evaluate for extubation -04/09: Patient getting dialyzed today. Received Bumex last night with good urine output. Chest x-ray shows worsening airspace opacity right mid and lower lung zones. Worsened small right pleural effusion. FiO2 requirements have increased to 60% from 35%. Place patient on pressure support ventilation, 02/06, low tidal volumes, tachypnea, tachycardia, had to be placed back on CMV mode Discussed with and daughter and updated them with patient's condition, intubated for almost 2 weeks, they agreeable with tracheostomy, as scheduled and with ENT for 04/11/2024. -GI has been consulted for PEG tube placement 04/10: Tried to place patient again on pressure support ventilation 02/06, was not getting adequate tidal volumes, was also tachypneic. Also tried ASV, her respiratory rate was too low. I have asked the bedside RN to come down on her Precedex 04/11: Status post tracheostomy 04/12: PEG tube scheduled for today, Placed patient on ASV mode of ventilation, will switch to pressure support after PEG tube placement 04/13: Patient getting dialysis, after which will switch to ASV mode of ventilation or pressure support ventilation 04/14: Increased secretions around the tracheostomy incision site, sent for culture. Currently afebrile, normal WBC count, will hold antibiotic. Place him this placed on ASV mode of ventilation and tolerating well, almost all of her breaths are spontaneous 04/15: Patient tolerated ASV mode of ventilation all day yesterday and through the night. Will continue on ASV mode she is breathing spontaneously. Preliminary culture from the tracheostomy site is negative 03/27 CTA chest Impression: No evidence of pulmonary embolus, aortic dissection, or aortic aneurysm. Extensive right lower lobe pneumonia. Probable mildly prominent reactive lymphadenopathy the right axilla and subcarinal region. (2) Sepsis: Code(s): A41.9 - Sepsis, unspecified organism Status: Acute Assessment and Plan: RESOLVED Sepsis/septic shock secondary to community-acquired pneumonia, initial procalcitonin level 4.4 Blood cultures ordered and negative till now Sputum cultures negative Urine Legionella and pneumococcal antigen negative Status post cefepime and azithromycin MRSA screen negative. Vancomycin discontinued (3) Diabetes: Code(s): E11.9 - Type 2 diabetes mellitus without complications Status: Chronic Assessment and Plan: Status post insulin infusion Continue to hold Lantus to 60 units q.12 since blood sugars on trending down after switching patient to Nepro on tube feeds Status post steroids, also she got dialyzed better with the new dialysis catheter in the right IJ, likely dropped her blood sugars. -continue Accu-Cheks and sliding scale insulin -tube feeds restarted after PEG tube placement on 02/10/2025, tolerating (4) Atrial fibrillation with RVR: Code(s): I48.91 - Unspecified atrial fibrillation Status: Acute Assessment and Plan: Patient was amiodarone infusion which has been switched to p.o. amiodarone per tube metoprolol by Cardiology Patient is anticoagulated with Eliquis, -continue metoprolol and amiodarone per tube Echo Summary 1. Very technically difficult study with limited views. 2. Left ventricular chamber dimension is normal. 3. Left ventricular systolic function is at lower limits of normal, estimated at 50-55%. 4. Left atrial chamber dimension is moderately enlarged (5) Community acquired pneumonia: Code(s): J18.9 - Pneumonia, unspecified organism Status: Acute Assessment and Plan: See above (6) Altered mental status: Code(s): R41.82 - Altered mental status, unspecified Status: Acute Assessment and Plan: RESOLVED Likely secondary to hypoxia. Patient had CT scan of the head recently done which was unremarkable Repeat head CT on 03/28 was again unremarkable Ammonia levels within normal limit TSH was normal -patient continues to open her eyes and follows simple commands (7) Electrolyte abnormality: Code(s): E87.8 - Other disorders of electrolyte and fluid balance, not elsewhere classified Status: Acute Assessment and Plan: Patient on dialysis (8) Shock: Code(s): R57.9 - Shock, unspecified Status: Acute Assessment and Plan: RESOLVED Patient was on Levophed and vasopressin infusion which are currently off -off stress dose steroid - status post 25% albumin -Hold further crystalloids (9) VINCENT (acute kidney injury): Code(s): N17.9 - Acute kidney failure, unspecified Status: Acute Assessment and Plan: Increase in creatinine and drop in urine output likely secondary to shock Patient received IV fluids and 5% albumin earlier in the course. norm CK level Renal ultrasound showed No hydronephrosis. Perinephric fluid collection adjacent to the left lower pole. Nephrology following Continued maintain mean arterial pressure with vasopressors if needed 2/ Discussed with quality assurance monitor final and patient's family. Discussed risks and benefits of starting hemodialysis. Retail Manager and patient's family in agreement. Patient's consented to proceed. Temporary dialysis catheter placed. Patient was dialyzed. Further dialysis per as per Nephrology -04/04: Patient did not tolerate dialysis as she became tachypneic, tachycardic and hypotensive requiring restarting Levophed. -04/05: Retail Manager recommended giving Bumex 2 mg IV x1 since patient had slightly improved urine output over the last 24 hours and a creatinine and BUN trending downward, - will monitor urine output, renal function and electrolytes 04/06: Discuss with Nephrology, patient received dialysis today with no removal of fluid 04/07: New left IJ dialysis catheter was inserted today, currently functioning well. Right IJ dialysis catheter was removed -dialysis per Nephrology 04/13: Status post tunneled dialysis catheter placement by surgery (10) Elevated liver enzymes: Code(s): R74.8 - Abnormal levels of other serum enzymes Status: Acute Assessment and Plan: Patient is status post cholecystectomy Elevated AST ALT and alkaline phosphatase likely secondary to shock liver Hold statin Right upper quadrant ultrasound - Status post cholecystectomy. Pancreas poorly visualized. Otherwise normal abdominal ultrasound findings. While hepatitis panel was negative Levels were increasing I have discussed with Cardiology regarding potential amiodarone related hepatotoxicity. Patient was on IV amiodarone earlier for rate control as patient was in AFib with RVR. It was switched to p.o. as the rate improved. 04/03 amiodarone was held GI consult and following LFTs have been improving, continue to monitor Plan DVT prophylaxis -continue Eliquis Stress ulcer prophylaxis -protonix Nutrition -tolerating tube feeds Code Status - Full Code Total Critical Care Time - 33 minutes Discussed patient's daughter and has been and updated her with patient's condition and plan of care. They are aware that Care coordination is working on LTAC placement. I answered all their questions Due to a high probability of clinically significant, life threatening deterioration, the patient required my highest level of preparedness to intervene emergently and I personally spent this critical care time directly and personally managing the patient. This critical care time included obtaining a history; examining the patient; pulse oximetry; ordering and review of studies; arranging urgent treatment with development of a management plan; evaluation of patient's response to treatment; frequent reassessment; and discussions with other providers. It was exclusive of separately billable procedures and treating other patients and teaching time. Please see Assessment and Plan section and the rest of the note for further information on patient assessment and treatment This dictation may have been done utilizing a voice recognition system. Attempts have been made to correct errors. However, there may be uncorrected grammatical, spelling, and recognitions errors present. Subjective Date/time seen: 04/15/24 12:07 Interval history: 68yo female with AFib s/p SHAYY cardioversion that was unsuccessful, KAREN not using CPAP, DM, HTN and endometrial cancer who presents with shortness of breath, leg swelling and weight gain over the past few weeks. Now in with respiratory failure secondary to pneumonia with septic shock. Intubated and on mechanical ventilation. RSV positive, acute kidney injury status post dialysis catheter a nd dialysis 04/07: A new Left IJ dialysis catheter was inserted 04/11: Status post tracheostomy by ENT 04/12: PEG tube placed by GI 04/13: Tunnel dialysis catheter placement by surgery 04/15/2024: Patient seen and examined the ICU, tolerated ASV mode all day yesterday and all night. Off all sedation, is awake, alert, follows simple commands in all extremities and nods to questions. Patient is in AFib, better rate controlled. Continues to make decent urine output, afebrile. Hemodynamically stable. Tolerating tube feeds, with positive bowel movements. Was dialyzed yesterday with 2400 mL in fluid removed Review of Systems Review of Systems: ROS unobtainable: Yes unobtainable due to endotracheal tube, unobtainable due to medical condition and unobtainable due to mental status Exam Narrative: General: Patient on Precedex infusion, in no acute distress Lungs/Chest: Coarse breath sounds bilaterally, no wheezing, decreased air entry at bases Rt > Lt, tracheostomy in place Cardiac: Irregularly irregular, rate controlled Circulation: Pedal pulses are intact and symmetrical. Abdomen: Normoactive bowel sounds bowel sounds. Morbidly Obese. Soft. NT. ND. PEG tube in place Extremities: No clubbing, cyanosis, bilateral upper and lower extremity edema improving : Can in place Neurologic: Status post tracheostomy, no sedated, opens her eyes, follows simple command in all extremities, pupils equal and reactive to light Objective Data Vital Signs Vital Signs: Vital Signs - 24 hr 04/14/24 12:26 04/14/24 14:00 04/14/24 14:00 Temperature 100.1 F H 99.6 F Pulse Rate 99 99 Respiratory Rate 23 H Blood Pressure 125/79 Pulse Oximetry 94 Oxygen Delivery Fraction of Inspired Oxygen 04/14/24 14:00 04/14/24 14:00 04/14/24 14:49 Temperature 99.6 F Pulse Rate 102 H 95 100 Respiratory Rate 21 H Blood Pressure 125/79 Pulse Oximetry 91 94 Oxygen Delivery Mechanical Ventilation Fraction of Inspired Oxygen 40 04/14/24 16:00 04/14/24 16:00 04/14/24 16:00 Temperature 99.7 F H Pulse Rate 97 Respiratory Rate 23 H Blood Pressure 115/72 Pulse Oximetry 94 Oxygen Delivery Mechanical Ventilation Fraction of Inspired Oxygen 35 04/14/24 16:00 04/14/24 17:22 04/14/24 18:00 Temperature Pulse Rate 107 H 100 93 Respiratory Rate Blood Pressure Pulse Oximetry 95 Oxygen Delivery Mechanical Ventilation Fraction of Inspired Oxygen 40 04/14/24 18:00 04/14/24 19:44 04/14/24 20:00 Temperature 99.5 F 99.6 F Pulse Rate 97 100 Respiratory Rate 24 H 20 Blood Pressure 116/68 112/73 Pulse Oximetry 97 96 95 Oxygen Delivery Mechanical Ventilation Fraction of Inspired Oxygen 40 04/14/24 20:00 04/14/24 20:00 04/14/24 20:00 Temperature Pulse Rate 108 H Respiratory Rate Blood Pressure Pulse Oximetry Oxygen Delivery Mechanical Ventilation Fraction of Inspired Oxygen 35 04/14/24 20:04 04/14/24 22:00 04/14/24 22:10 Temperature 99.7 F H Pulse Rate 114 H 90 97 Respiratory Rate 22 H Blood Pressure 112/76 Pulse Oximetry 97 Oxygen Delivery Fraction of Inspired Oxygen 04/14/24 22:23 04/15/24 00:00 04/15/24 00:00 Temperature 99.6 F Pulse Rate 93 93 Respiratory Rate 18 Blood Pressure 108/73 Pulse Oximetry 97 96 Oxygen Delivery Mechanical Ventilation Fraction of Inspired Oxygen 40 35 04/15/24 00:00 04/15/24 00:00 04/15/24 02:00 Temperature 99.6 F Pulse Rate 87 89 Respiratory Rate 20 Blood Pressure 105/65 Pulse Oximetry 97 Oxygen Delivery Mechanical Ventilation Fraction of Inspired Oxygen 04/15/24 02:00 04/15/24 02:12 04/15/24 02:24 Temperature Pulse Rate 89 90 86 Respiratory Rate Blood Pressure Pulse Oximetry 99 95 Oxygen Delivery Mechanical Ventilation Mechanical Ventilation Fraction of Inspired Oxygen 40 30 04/15/24 04:00 04/15/24 04:00 04/15/24 04:00 Temperature 99.4 F Pulse Rate 99 Respiratory Rate 14 Blood Pressure 107/70 Pulse Oximetry 96 Oxygen Delivery Mechanical Ventilation Fraction of Inspired Oxygen 30 04/15/24 04:00 04/15/24 04:41 04/15/24 06:00 Temperature 99.2 F Pulse Rate 93 95 96 Respiratory Rate 17 Blood Pressure 115/86 Pulse Oximetry 95 93 Oxygen Delivery Mechanical Ventilation Fraction of Inspired Oxygen 30 04/15/24 06:00 04/15/24 08:00 04/15/24 08:00 Temperature 99.4 F Pulse Rate 95 103 H Respiratory Rate 20 Blood Pressure 116/85 Pulse Oximetry 93 Oxygen Delivery Fraction of Inspired Oxygen 30 04/15/24 08:00 04/15/24 08:00 04/15/24 08:18 Temperature Pulse Rate 111 H 118 H Respiratory Rate Blood Pressure Pulse Oximetry 93 Oxygen Delivery Mechanical Ventilation Fraction of Inspired Oxygen 30 04/15/24 08:18 04/15/24 09:38 04/15/24 09:38 Temperature 99.7 F H Pulse Rate 118 H 98 Respiratory Rate 20 Blood Pressure 123/82 Pulse Oximetry 93 Oxygen Delivery Fraction of Inspired Oxygen 30 04/15/24 09:42 04/15/24 09:45 04/15/24 10:00 Temperature Pulse Rate 96 96 100 Respiratory Rate Blood Pressure 108/51 L 119/88 121/87 Pulse Oximetry Oxygen Delivery Fraction of Inspired Oxygen 04/15/24 10:00 04/15/24 10:00 04/15/24 10:15 Temperature 99.7 F H Pulse Rate 95 116 H 91 Respiratory Rate 17 Blood Pressure 121/87 115/75 Pulse Oximetry 94 Oxygen Delivery Fraction of Inspired Oxygen 04/15/24 10:30 04/15/24 10:45 04/15/24 10:48 Temperature Pulse Rate 105 H 109 H 106 H Respiratory Rate Blood Pressure 109/73 116/76 Pulse Oximetry 92 Oxygen Delivery Mechanical Ventilation Fraction of Inspired Oxygen 30 04/15/24 11:00 04/15/24 11:15 04/15/24 11:30 Temperature Pulse Rate 115 H 106 H 113 H Respiratory Rate Blood Pressure 108/70 117/81 113/77 Pulse Oximetry Oxygen Delivery Fraction of Inspired Oxygen 04/15/24 11:45 04/15/24 12:00 Temperature Pulse Rate 111 H 117 H Respiratory Rate Blood Pressure 116/71 101/68 Pulse Oximetry Oxygen Delivery Fraction of Inspired Oxygen Intake/Output Intake/Output: Intake & Output 04/12/24 04/13/24 04/14/24 04/15/24 23:59 23:59 23:59 23:59 Intake Total 301.1 315 1238 594 Output Total 575 0245 750 400 Balance -273.9 -2960 488 194 Meds/Results Medications: Active Medications Generic Name Dose Route Start Last Admin Trade Name Freq PRN Reason Stop Dose Admin Acetaminophen 650 mg 03/27/24 14:41 04/14/24 12:26 Acetaminophen 325 Mg Tablet PO 650 mg Q4H PRN Administration Mild Pain (1-3) or Fever Alteplase, Recombinant 2 mg 04/06/24 03:11 04/06/24 03:22 Alteplase 2 Mg Vial (Cathflo) IV PUSH 2 mg ONCE PRN Administration Line Occlusion Amiodarone HCl 400 mg 04/01/24 10:40 04/15/24 08:18 Amiodarone Hcl 200 Mg Tablet PO 400 mg DAILY LAVERNE Administration Apixaban 5 mg 04/13/24 21:00 04/15/24 08:18 Apixaban 5 Mg Tablet PO 5 mg Q12HR LAVERNE Administration Bisacodyl 10 mg 04/10/24 02:20 04/10/24 06:21 Bisacodyl 10 Mg Suppository RECTAL 10 mg QAM PRN Administration Constipation Cyanocobalamin 1,000 mcg 03/27/24 17:00 04/15/24 08:18 Cyanocobalamin 1,000 Mcg Tablet PO 1,000 mcg BID LAVERNE Administration Dextrose 12.5 gm 03/27/24 08:57 Dextrose 50% 25 Gm/50 Ml Syringe IV PUSH PRN PRN Hypoglycemia Protocol Docosanol 1 applic 04/09/24 09:00 04/15/24 11:36 Docosanol 10% Cream 2 Gm TOPICAL 1 applic 5 TIMES DAILY LAVERNE Administration Epoetin Marck-epbx 10,000 units 04/15/24 19:03 04/15/24 10:31 Epoetin Marck-Epbx 10,000 Units/Ml Vial IV PUSH 04/15/24 19:04 10,000 units ONCE ONE Administration Glucagon 1 mg 03/27/24 08:57 Glucagon For Inj 1 Mg Vial IM PRN PRN Hypoglycemia Protocol Glucose 15 gm 03/27/24 08:57 Glucose Oral Gel 15 Gm Of Glucse In 37.5 Gm Tube PO PRN PRN Hypoglycemia Protocol Dextrose 1,000 mls @ 100 mls/hr 03/27/24 08:57 Dextrose 5% 1,000 Ml IVPB PRN PRN Hypoglycemia Protocol Albumin Human 50 mls @ 999 mls/hr 04/03/24 09:19 04/07/24 15:05 Albutein IVPB 05/03/24 09:18 100 mls/hr Q10M PRN Administration HYPOTENSION Insulin Aspart 4 - 8 units 03/29/24 13:00 04/15/24 08:17 Insulin Aspart (*Bkc) 100 Units/Ml SUB-Q 5 units Q4HR LAVERNE Administration Protocol Metoprolol Tartrate 5 mg 04/12/24 00:00 04/12/24 06:14 Metoprolol Tartrate Inj 5 Mg/5 Ml Vial IV PUSH Not Given Q6HR LAVERNE Metoprolol Tartrate 50 mg 04/14/24 09:00 04/15/24 08:18 Metoprolol Tartrate 50 Mg Tab PO 50 mg Q12HR LAVERNE Administration Midazolam HCl 2 mg 04/11/24 16:46 04/14/24 05:28 Midazolam Hcl (*Crx) 2 Mg/2 Ml Vial IV PUSH 2 mg Q2H PRN Administration Ventilator Asynchrony Multi-Ingred Cream/Lotion/Oil/Oint 1 applic 03/28/24 21:00 04/15/24 08:18 Mineral Oil/White Petrolatum Ointment EACH EYE Not Given Q12HR [facility] Pantoprazole Sodium 40 mg 03/29/24 09:00 04/15/24 08:18 Pantoprazole Sodium Iv 40 Mg Vial IV PUSH 40 mg DAILY LAVERNE Administration Polyethylene Glycol 17 gm 04/12/24 07:50 Polyethylene Glycol 3350 17 Gm Powd.Pack PO QAM PRN Constipation Rosuvastatin Calcium 20 mg 03/28/24 09:00 03/31/24 09:28 Rosuvastatin 20 Mg Tablet PO Not Given DAILY LAVERNE Senna/Docusate Sodium 1 tab 04/07/24 21:00 04/14/24 20:04 Senna/Docusate Sodium Tablet PO 1 tab HS LAVERNE Administration Sodium Chloride 10 ml 03/28/24 22:00 04/15/24 06:32 Central Line Flush IV PUSH 10 ml Q8HR LAVERNE Administration Sodium Chloride 10 ml 03/28/24 16:14 Central Line Flush IV PUSH PRN PRN with TPN bag changes Sodium Chloride 20 ml 03/28/24 16:14 Central Line Flush IV PUSH PRN PRN after blood draws Radiology Results: ITS Impressions Chest CTA 03/27/24 06:41 Impression: No evidence of pulmonary embolus, aortic dissection, or aortic aneurysm. Extensive right lower lobe pneumonia. Probable mildly prominent reactive lymphadenopathy the right axilla and subcarinal region. Head CT 03/28/24 22:59 IMPRESSION: 1. Normal brain. Abdomen X-Ray 03/29/24 08:59 IMPRESSION: 1. Lines and tubes in expected positions. 2. Diffuse bilateral lung disease, right greater than left, consistent with multifocal pneumonia. Renal Ultrasound 03/31/24 15:34 IMPRESSION: No hydronephrosis. Perinephric fluid collection adjacent to the left lower pole. Abdomen Ultrasound 03/31/24 15:39 IMPRESSION: Status post cholecystectomy. Pancreas poorly visualized. Otherwise normal abdominal ultrasound findings. Chest X-Ray 04/15/24 06:36 IMPRESSION: 1. Mildly worsened airspace opacities in the perihilar regions and lower lung zones, consistent with atelectasis versus pneumonia. 2. Cardiomegaly. 3. Left-sided central line tip in the right brachiocephalic vein. Labs Labs: Laboratory Results - last 24 hr 04/14/24 04/14/24 04/15/24 17:10 19:51 00:03 WBC RBC Hgb Hct MCV MCH MCHC RDW Plt Count MPV Immature Gran % (Auto) Neut % (Auto) Lymph % (Auto) [place] % (Auto) Eos % (Auto) Baso % (Auto) Lymph # (Auto) [place] # (Auto) Eos # (Auto) Baso # (Auto) Abs Immat Gran (auto) Absolute Neuts (auto) Absolute Nucleated RBC Nucleated RBC % Puncture Site ABG pH ABG pCO2 ABG pO2 ABG PO2/FiO2 Ratio ABG HCO3 ABG O2 Saturation ABG O2 Content ABG Base Excess A-a Gradient Oxyhemoglobin Carboxyhemoglobin Methemoglobin Reduced Hemoglobin Total Hemoglobin O2 Delivery Device O2 Liters/Min Minute Volume Vent Rate Vent Mode FiO2 Tidal Volume PEEP Peak Inspir Pressure Pressure Support Sodium Potassium Chloride Carbon Dioxide Anion Gap BUN Creatinine Estim Creat Clear Calc Estimated GFR Glucose POC Capillary Glucose 215 H 234 H 232 H Calcium Phosphorus Magnesium Total Bilirubin AST ALT Alkaline Phosphatase Total Protein Albumin 04/15/24 04/15/24 04/15/24 04:35 05:53 07:41 WBC 5.9 RBC 3.07 L Hgb 9.3 L Hct 29.6 L MCV 96.4 MCH 30.3 MCHC 31.4 L RDW 16.9 H Plt Count 288 MPV 9.6 Immature Gran % (Auto) 0.3 Neut % (Auto) 89.4 H Lymph % (Auto) 5.1 L [place] % (Auto) 4.3 Eos % (Auto) 0.7 Baso % (Auto) 0.2 Lymph # (Auto) 0.30 L [place] # (Auto) 0.3 Eos # (Auto) 0.0 Baso # (Auto) 0.0 Abs Immat Gran (auto) 0.02 Absolute Neuts (auto) 5.2 Absolute Nucleated RBC 0.000 Nucleated RBC % 0.0 Puncture Site Right radial ABG pH 7.505 H* ABG pCO2 34.7 L ABG pO2 68.1 L ABG PO2/FiO2 Ratio 2.27 ABG HCO3 26.8 H ABG O2 Saturation 95.2 ABG O2 Content 14.1 L ABG Base Excess 3.7 A-a Gradient 105.0 Oxyhemoglobin 93.7 Carboxyhemoglobin 0.2 Methemoglobin 0.3 Reduced Hemoglobin 5.8 H Total Hemoglobin 10.7 L O2 Delivery Device Ventilator O2 Liters/Min Not Reportable Minute Volume 6.9 Vent Rate Not Reportable Vent Mode Asv FiO2 30 Tidal Volume Not Reportable PEEP 5 Peak Inspir Pressure Not Reportable Pressure Support Not Reportable Sodium 141 Potassium 3.7 Chloride 104 Carbon Dioxide 29 Anion Gap 8 BUN 53 H Creatinine 2.11 H Estim Creat Clear Calc 35 Estimated GFR 23 L Glucose 235 H POC Capillary Glucose 256 H Calcium 8.3 L Phosphorus 3.2 Magnesium 2.2 Total Bilirubin 0.7 AST 15 ALT 56 H Alkaline Phosphatase 113 Total Protein 6.0 L Albumin 2.7 L 04/15/24 11:34 WBC RBC Hgb Hct MCV MCH MCHC RDW Plt Count MPV Immature Gran % (Auto) Neut % (Auto) Lymph % (Auto) [place] % (Auto) Eos % (Auto) Baso % (Auto) Lymph # (Auto) [place] # (Auto) Eos # (Auto) Baso # (Auto) Abs Immat Gran (auto) Absolute Neuts (auto) Absolute Nucleated RBC Nucleated RBC % Puncture Site ABG pH ABG pCO2 ABG pO2 ABG PO2/FiO2 Ratio ABG HCO3 ABG O2 Saturation ABG O2 Content ABG Base Excess A-a Gradient Oxyhemoglobin Carboxyhemoglobin Methemoglobin Reduced Hemoglobin Total Hemoglobin O2 Delivery Device O2 Liters/Min Minute Volume Vent Rate Vent Mode FiO2 Tidal Volume PEEP Peak Inspir Pressure Pressure Support Sodium Potassium Chloride Carbon Dioxide Anion Gap BUN Creatinine Estim Creat Clear Calc Estimated GFR Glucose POC Capillary Glucose 155 H Calcium Phosphorus Magnesium Total Bilirubin AST ALT Alkaline Phosphatase Total Protein Albumin Quality VTE Prophylaxis VTE prophylaxis: pharmacologic ordered
[2024-04-15] MEDS: HEPARIN SODIUM 1,000 UNITS/ML VIAL 6000 UNITS (13:30)
[2024-04-15] MEDS: ACETAMINOPHEN 325 MG TABLET 650 MG PO (15:26)
[2024-04-15 18:08] LABS: Glucose Point of Care 231 mg/dl (65-105)
[2024-04-15] MEDS: SENNA/DOCUSATE SODIUM TABLET 1 TAB PO (20:48)
[2024-04-15 21:45] LABS: Glucose Point of Care 234 mg/dl (65-105)
[2024-04-16] VITALS (23 sets, daily range): BP systolic 106–123; BP diastolic 64–91; PULSE 72–108; RESP 11–19; TEMP 37–37.4; O2SAT 94–100
[2024-04-16] MEDS: INSULIN ASPART (*BKC) 100 UNITS/ML SUB-Q ×6 (00:11→20:30)
[2024-04-16 00:16] LABS: Glucose Point of Care 233 mg/dl (65-105)
[2024-04-16 04:56] LABS: Basophils Percent Auto 0.2 % (0.2-1.2); Eosinophils Percent Auto 0.8 % (0-4.4); Hematocrit 29.1 % (37.0-47.0); Hemoglobin 9.2 g/dL (12.0-15.0); Immature Granulocyte Absolute 0.03 K/mm3 (0.00-0.031); Immature Granulocyte Percent A 0.6 % (0-0.5); Lymphocytes Absolute Auto 0.36 K/mm3 (0.9-3.2); Mean Corpuscular HGB Conc 31.6 g/dl (32-36); Mean Corpuscular Hemoglobin 30.4 pg (26-34); Mean Platelet Volume 9.2 fl (7.4-10.4); Monocytes Absolute Auto 0.3 K/mm3 (0.1-0.6); Neutrophils Absolute Auto 4.4 K/mm3 (1.3-6.7); Neutrophils Percent Auto 85.4 % (45.5-73.1); Platelet Count Result 192 k/mm3 (150-375); Red Blood Count 3.03 M/mm3 (4.2-5.4); Red Cell Distribution Width 16.9 % (11.5-14.5); White Blood Count 5.2 K/mm3 (4.5-10.0)
[2024-04-16 05:41] LABS: Alanine Aminotransferase 46 U/L (6-35); Albumin Level 2.7 g/dL (3.5-5.1); Alkaline Phosphatase 105 U/L (38-126); Anion Gap 7 mmol/L (4-12); Aspartate Amino Transferase 18 U/L (14-36); Bilirubin,Total 0.7 mg/dL (0.2-1.3); Blood Urea Nitrogen 39 mg/dL (7-17); Calcium 8.4 mg/dL (8.4-10.2); Carbon Dioxide 28 mmol/L (22-30); Chloride 103 mmol/L (98-107); Estimated CRCL calculation 44 ml/min; Estimated Glomerular Filt Rate 30; Glucose 232 mg/dL (65-110); Magnesium 2.1 mg/dL (1.6-2.3); Phosphorus 2.5 mg/dL (2.5-4.5); Potassium 3.6 mmol/L (3.4-5.0); Sodium 138 mmol/L (137-145)
[2024-04-16 05:43] LABS: Alveolar/Arterial O2 Gradient 107.3 mmHg; Base Excess ABG 5.8 mEq/l (+/-2.0); Carboxyhemoglobin 0.3 % THb (0-2.0); Fractional Inspired Oxygen 30 %; HCO3 ABG 28.8 mEq/l (22.0-26.0); Methemoglobin ABG 0.3 %THb (0-1.5); Oxygen Content ABG 13.2 %vol (16.0-22.0); Oxygen Saturation ABG 94.6 % (95.0-100.0); Oxyhemoglobin 92.5 % THb (90.0-100.0); PCO2 ABG 35.8 mmHg (35.0-45.0); PO2 ABG 64.5 mmHg (80.0-100.0); PO2 FiO2 Ratio Arterial Blood 2.15 %; Reduced Hemoglobin 6.9 %THb (0-5.0); Total Hemoglobin 10.1 g/dL (12.0-18.0)
[2024-04-16 05:44] LABS: Device VENTILATOR; Modified Allen's Test Pass; Site Drawn RIGHT RADIAL; pH ABG 7.523 (7.350-7.450)
[2024-04-16 05:45] LABS: Arterial Blood Gas Vent Mode ASV
[2024-04-16 05:46] LABS: Arterial Blood Gas PEEP 5 cmH2O
[2024-04-16] MEDS: CENTRAL LINE FLUSH 10 ML IV PUSH ×3 (06:07→20:31)
[2024-04-16 07:40] LABS: Glucose Point of Care 244 mg/dl (65-105)
[2024-04-16] MEDS: CYANOCOBALAMIN 1,000 MCG TABLET 1000 MCG PO ×2 (09:26→16:25)
[2024-04-16] MEDS: METOPROLOL TARTRATE 50 MG TAB PO ×2 (09:26→20:31)
[2024-04-16] MEDS: APIXABAN 5 MG TABLET PO ×2 (09:27→20:31)
[2024-04-16] MEDS: AMIODARONE HCL 200 MG TABLET 400 MG PO (09:27)
[2024-04-16] MEDS: DOCOSANOL 10% CREAM 2 GM 1 APPLIC TOPICAL ×5 (09:28→20:31)
[2024-04-16] MEDS: PANTOPRAZOLE SODIUM IV 40 MG VIAL IV PUSH (09:29)
[2024-04-16] MEDS: MINERAL OIL/WHITE PETROLATUM OINTMENT 1 APPLIC EACH EYE (09:30)
[2024-04-16] MEDS: CEFEPIME 2 GM/NS 50 ML 2 GM/50 ML BAG IVPB (10:30)
--- NOTE | 2024-04-16 10:58 | P.PNNP_ITS ---
Progress Note: A&P Assessment and Plan (1) VINCENT (acute kidney injury): Code(s): N17.9 - Acute kidney failure, unspecified Status: Acute Assessment and Plan: * as noted by trend of labs since admission * normal creatinine at baseline and on admission * multifactorial etiology: * hemodynamic instability/shock * infection/sepsis (pneumonia + RSV) * ARB + HCTZ use prior to admission * contrast (CTA of chest on 03/27) * hypoxia * afib with RVR * prerenal factors (?) * evaluation to date noted: * renal ultrasound without hydro * urine electrolytes prerenal * urine eosinophils negative * CPK normal * initiated on COIL WINDER/dialysis on 04/02/24 * patient did well in hemodialysis yesterday. 2500cc was removed. * Oxygenation looks better. * Electrolytes and BUN are okay. * Will do another treatment on Thursday (2) Acute hypoxic respiratory failure: Code(s): J96.01 - Acute respiratory failure with hypoxia Status: Acute Assessment and Plan: * seconeary to pneumonia, RSV, and possible CHF * CTA of chest noted: * no evidence of pulmonary embolus, aortic dissection, or aortic aneurysm * extensive right lower lobe pneumonia * probable mildly prominent reactive lymphadenopathy the right axilla and subcarinal region * emergently intubated 03/28 * completed course of steroids * follow respiratory status * s/p tracheostomy (on 04/11) for prolonged ventilator weaning * weaning as tolerated (3) Septic shock: Code(s): A41.9 - Sepsis, unspecified organism; R65.21 - Severe sepsis with septic shock Status: Acute Assessment and Plan: * resolved * secondary to extensive pneumonia +/- RSV * cefepime ordered to cover paratracheal secretions. * cultures negative to date * off pressors currently (4) Atrial fibrillation with RVR: Code(s): I48.91 - Unspecified atrial fibrillation Status: Acute Assessment and Plan: * heart rate in the 90s and 100s. * on Eliquis * Echo results noted * Cardiology following (5) Anemia: Code(s): D64.9 - Anemia, unspecified Status: Acute Assessment and Plan: * likely a manifestation of VINCENT and acute illness * on DANG with dialysis * follow trend of H/H (6) Community acquired pneumonia: Code(s): J18.9 - Pneumonia, unspecified organism Status: Acute Assessment and Plan: * as noted by admission imaging * culture data noted (negative to date) * completed course of antibiotics (7) Elevated liver enzymes: Code(s): R74.8 - Abnormal levels of other serum enzymes Status: Acute Assessment and Plan: * thought to be secondary to shock liver * Improving (8) Diabetes: Code(s): E11.9 - Type 2 diabetes mellitus without complications Status: Chronic Assessment and Plan: * follow accu-cheks * glycemic control per hospitalist/shaft sinker Subjective Date/time seen: 04/16/24 10:58 Interval history: patient is on the ventilator. Exam Narrative: General: elderly but WD/WN female trached/sedated and on mechanical ventilation Heart: IRRR, tachycardic, normal S1 and S2; no rub or gallop Lungs: coarse breath sounds; some crackles at bases Abdomen: bowel sounds positive and soft Extremities: trace edema Skin: no rash Or subcu not Objective Data Vital Signs Vital Signs: Vital Signs - 24 hr 04/15/24 11:00 04/15/24 11:15 04/15/24 11:30 Temperature Pulse Rate 115 H 106 H 113 H Respiratory Rate Blood Pressure 108/70 117/81 113/77 Pulse Oximetry Oxygen Delivery Fraction of Inspired Oxygen 04/15/24 11:45 04/15/24 12:00 04/15/24 12:00 Temperature 100.3 F H Pulse Rate 111 H 117 H 119 H Respiratory Rate 20 Blood Pressure 116/71 101/68 101/68 Pulse Oximetry 90 Oxygen Delivery Fraction of Inspired Oxygen 04/15/24 12:00 04/15/24 12:00 04/15/24 12:00 Temperature Pulse Rate 107 H Respiratory Rate Blood Pressure Pulse Oximetry 90 Oxygen Delivery Mechanical Ventilation Fraction of Inspired Oxygen 30 30 04/15/24 12:15 04/15/24 12:30 04/15/24 12:45 Temperature Pulse Rate 116 H 120 H 116 H Respiratory Rate Blood Pressure 106/78 98/82 L 108/77 Pulse Oximetry Oxygen Delivery Fraction of Inspired Oxygen 04/15/24 13:00 04/15/24 13:15 04/15/24 13:30 Temperature 100.4 F H Pulse Rate 113 H 118 H 114 H Respiratory Rate 24 H Blood Pressure 109/69 113/65 102/77 Pulse Oximetry 93 Oxygen Delivery Fraction of Inspired Oxygen 04/15/24 14:00 02/14/25 14:00 04/15/24 15:26 Temperature 100.3 F H 100.5 F H Pulse Rate 117 H 107 H Respiratory Rate 25 H Blood Pressure 107/72 Pulse Oximetry 93 Oxygen Delivery Fraction of Inspired Oxygen 04/15/24 16:00 04/15/24 16:00 04/15/24 16:00 Temperature 100.4 F H Pulse Rate 105 H Respiratory Rate 19 Blood Pressure 120/86 Pulse Oximetry 96 95 Oxygen Delivery Mechanical Ventilation Fraction of Inspired Oxygen 30 30 04/15/24 16:00 04/15/24 16:08 04/15/24 16:26 Temperature 100.4 F H Pulse Rate 107 H 88 Respiratory Rate Blood Pressure Pulse Oximetry 95 Oxygen Delivery Mechanical Ventilation Fraction of Inspired Oxygen 30 04/15/24 18:00 04/15/24 18:00 04/15/24 20:00 Temperature 99.8 F H Pulse Rate 101 H 93 Respiratory Rate 14 Blood Pressure 110/70 Pulse Oximetry 95 Oxygen Delivery Fraction of Inspired Oxygen 30 04/15/24 20:00 04/15/24 20:00 04/15/24 20:00 Temperature 99.3 F Pulse Rate 93 94 Respiratory Rate 18 Blood Pressure 120/79 Pulse Oximetry 96 96 Oxygen Delivery Mechanical Ventilation Fraction of Inspired Oxygen 30 04/15/24 20:48 04/15/24 21:32 04/15/24 22:00 Temperature Pulse Rate 92 81 94 Respiratory Rate Blood Pressure Pulse Oximetry 96 Oxygen Delivery Mechanical Ventilation Fraction of Inspired Oxygen 30 04/15/24 22:00 04/15/24 23:43 04/16/24 00:00 Temperature 99.4 F 99.3 F Pulse Rate 87 79 88 Respiratory Rate 19 17 Blood Pressure 119/74 113/87 Pulse Oximetry 96 96 95 Oxygen Delivery Mechanical Ventilation Fraction of Inspired Oxygen 30 04/16/24 00:00 04/16/24 00:00 04/16/24 00:00 Temperature Pulse Rate 88 Respiratory Rate Blood Pressure Pulse Oximetry 95 Oxygen Delivery Mechanical Ventilation Fraction of Inspired Oxygen 30 30 04/16/24 01:56 04/16/24 02:00 04/16/24 02:00 Temperature 99.4 F Pulse Rate 95 91 91 Respiratory Rate 17 Blood Pressure 120/78 Pulse Oximetry 94 95 Oxygen Delivery Mechanical Ventilation Fraction of Inspired Oxygen 30 04/16/24 04:00 04/16/24 04:00 04/16/24 04:00 Temperature 99.0 F Pulse Rate 92 Respiratory Rate 19 Blood Pressure 123/90 Pulse Oximetry 96 96 Oxygen Delivery Mechanical Ventilation Fraction of Inspired Oxygen 30 30 04/16/24 04:00 04/16/24 06:00 04/16/24 06:00 Temperature 98.9 F Pulse Rate 84 88 88 Respiratory Rate 15 Blood Pressure 123/91 H Pulse Oximetry 96 Oxygen Delivery Fraction of Inspired Oxygen 04/16/24 06:02 04/16/24 08:00 04/16/24 08:00 Temperature 98.6 F Pulse Rate 108 H 90 Respiratory Rate 13 Blood Pressure 106/64 Pulse Oximetry 97 96 Oxygen Delivery Mechanical Ventilation Fraction of Inspired Oxygen 30 30 04/16/24 08:44 04/16/24 09:26 04/16/24 09:27 Temperature Pulse Rate 108 H 82 90 Respiratory Rate Blood Pressure Pulse Oximetry 97 Oxygen Delivery Mechanical Ventilation Fraction of Inspired Oxygen 30 04/16/24 10:00 Temperature Pulse Rate 88 Respiratory Rate 18 Blood Pressure 118/80 Pulse Oximetry 95 Oxygen Delivery Fraction of Inspired Oxygen Intake/Output Intake/Output: Intake & Output 04/13/24 04/14/24 04/15/24 04/16/24 23:59 23:59 23:59 23:59 Intake Total 315 1238 1300 602 Output Total 3275 750 3177 350 [facility] -2960 151 -3756 252 Meds/Results Medications: Active Medications Generic Name Dose Route Start Last Admin Trade Name Freq PRN Reason Stop Dose Admin Acetaminophen 650 mg 03/27/24 14:41 04/15/24 15:26 Acetaminophen 325 Mg Tablet PO 650 mg Q4H PRN Administration Mild Pain (1-3) or Fever Alteplase, Recombinant 2 mg 04/06/24 03:11 04/06/24 03:22 Alteplase 2 Mg Vial (Cathflo) IV PUSH 2 mg ONCE PRN Administration Line Occlusion Amiodarone HCl 400 mg 04/01/24 10:40 04/16/24 09:27 Amiodarone Hcl 200 Mg Tablet PO 400 mg DAILY LAVERNE Administration Apixaban 5 mg 04/13/24 21:00 04/16/24 09:27 Apixaban 5 Mg Tablet PO 5 mg Q12HR LAVERNE Administration Bisacodyl 10 mg 04/10/24 02:20 04/10/24 06:21 Bisacodyl 10 Mg Suppository RECTAL 10 mg QAM PRN Administration Constipation Cyanocobalamin 1,000 mcg 03/27/24 17:00 04/16/24 09:26 Cyanocobalamin 1,000 Mcg Tablet PO 1,000 mcg BID LAVERNE Administration Dextrose 12.5 gm 03/27/24 08:57 Dextrose 50% 25 Gm/50 Ml Syringe IV PUSH PRN PRN Hypoglycemia Protocol Docosanol 1 applic 04/09/24 09:00 04/16/24 09:28 Docosanol 10% Cream 2 Gm TOPICAL 1 applic 5 TIMES DAILY LAVERNE Administration Glucagon 1 mg 03/27/24 08:57 Glucagon For Inj 1 Mg Vial IM PRN PRN Hypoglycemia Protocol Glucose 15 gm 03/27/24 08:57 Glucose Oral Gel 15 Gm Of Glucse In 37.5 Gm Tube PO PRN PRN Hypoglycemia Protocol Dextrose 1,000 mls @ 100 mls/hr 03/27/24 08:57 Dextrose 5% 1,000 Ml IVPB PRN PRN Hypoglycemia Protocol Albumin Human 50 mls @ 999 mls/hr 04/03/24 09:19 04/07/24 15:05 Albutein IVPB 05/03/24 09:18 100 mls/hr Q10M PRN Administration HYPOTENSION Cefepime HCl 0.5 gm/ Dextrose 50 mls @ 100 mls/hr 04/17/24 15:00 IVPB DAILY@1500 LAVERNE Insulin Aspart 4 - 8 units 03/29/24 13:00 04/16/24 09:27 Insulin Aspart (*Bkc) 100 Units/Ml SUB-Q 4 units Q4HR LAVERNE Administration Protocol Metoprolol Tartrate 5 mg 04/12/24 00:00 04/12/24 06:14 Metoprolol Tartrate Inj 5 Mg/5 Ml Vial IV PUSH Not Given Q6HR LAVERNE Metoprolol Tartrate 50 mg 04/14/24 09:00 04/16/24 09:26 Metoprolol Tartrate 50 Mg Tab PO 50 mg Q12HR LAVERNE Administration Midazolam HCl 2 mg 04/11/24 16:46 04/14/24 05:28 Midazolam Hcl (*Crx) 2 Mg/2 Ml Vial IV PUSH 2 mg Q2H PRN Administration Ventilator Asynchrony Multi-Ingred Cream/Lotion/Oil/Oint 1 applic 03/28/24 21:00 04/16/24 09:30 Mineral Oil/White Petrolatum Ointment EACH EYE 1 applic Q12HR LAVERNE Administration Pantoprazole Sodium 40 mg 03/29/24 09:00 04/16/24 09:29 Pantoprazole Sodium Iv 40 Mg Vial IV PUSH 40 mg DAILY LAVERNE Administration Polyethylene Glycol 17 gm 04/12/24 07:50 Polyethylene Glycol 3350 17 Gm Powd.Pack PO QAM PRN Constipation Rosuvastatin Calcium 20 mg 03/28/24 09:00 03/31/24 09:28 Rosuvastatin 20 Mg Tablet PO Not Given DAILY LAVERNE Senna/Docusate Sodium 1 tab 04/07/24 21:00 04/15/24 20:48 Senna/Docusate Sodium Tablet PO 1 tab HS LAVERNE Administration Sodium Chloride 10 ml 03/28/24 22:00 04/16/24 06:07 Central Line Flush IV PUSH 10 ml Q8HR LAVERNE Administration Sodium Chloride 10 ml 03/28/24 16:14 Central Line Flush IV PUSH PRN PRN with TPN bag changes Sodium Chloride 20 ml 03/28/24 16:14 Central Line Flush IV PUSH PRN PRN after blood draws Radiology Results: ITS Impressions Chest CTA 03/27/24 06:41 Impression: No evidence of pulmonary embolus, aortic dissection, or aortic aneurysm. Extensive right lower lobe pneumonia. Probable mildly prominent reactive lymphadenopathy the right axilla and subcarinal region. Head CT 03/28/24 22:59 IMPRESSION: 1. Normal brain. Abdomen X-Ray 03/29/24 08:59 IMPRESSION: 1. Lines and tubes in expected positions. 2. Diffuse bilateral lung disease, right greater than left, consistent with multifocal pneumonia. Renal Ultrasound 03/31/24 15:34 IMPRESSION: No hydronephrosis. Perinephric fluid collection adjacent to the left lower pole. Abdomen Ultrasound 03/31/24 15:39 IMPRESSION: Status post cholecystectomy. Pancreas poorly visualized. Otherwise normal abdominal ultrasound findings. Chest X-Ray 04/16/24 06:45 IMPRESSION: 1. Decreasing opacities in the right lower lung zone consistent with improving atelectasis and/or pneumonia. 2. Cardiomegaly. 2. Lines and tubes unchanged with tip in the left internal jugular central venous catheter in the right brachiocephalic vein. Labs Labs: Laboratory Results - last 24 hr 0204/15/24 04/15/24 11:34 17:50 21:22 WBC RBC Hgb Hct MCV MCH MCHC RDW Plt Count MPV Immature Gran % (Auto) Neut % (Auto) Lymph % (Auto) [place] % (Auto) Eos % (Auto) Baso % (Auto) Lymph # (Auto) [place] # (Auto) Eos # (Auto) Baso # (Auto) Abs Immat Gran (auto) Absolute Neuts (auto) Absolute Nucleated RBC Nucleated RBC % Puncture Site ABG pH ABG pCO2 ABG pO2 ABG PO2/FiO2 Ratio ABG HCO3 ABG O2 Saturation ABG O2 Content ABG Base Excess A-a Gradient Oxyhemoglobin Carboxyhemoglobin Methemoglobin Reduced Hemoglobin Total Hemoglobin O2 Delivery Device O2 Liters/Min Minute Volume Vent Rate Vent Mode FiO2 Tidal Volume PEEP Peak Inspir Pressure Pressure Support Sodium Potassium Chloride Carbon Dioxide Anion Gap BUN Creatinine Estim Creat Clear Calc Estimated GFR Glucose POC Capillary Glucose 155 H 231 H 234 H Calcium Phosphorus Magnesium Total Bilirubin AST ALT Alkaline Phosphatase Total Protein Albumin 04/15/24 04/16/24 04/16/24 23:44 04:50 05:29 WBC 5.2 RBC 3.03 L Hgb 9.2 L Hct 29.1 L MCV 96.0 MCH 30.4 MCHC 31.6 L RDW 16.9 H Plt Count 192 MPV 9.2 Immature Gran % (Auto) 0.6 H Neut % (Auto) 85.4 H Lymph % (Auto) 7.0 L [place] % (Auto) 6.0 Eos % (Auto) 0.8 Baso % (Auto) 0.2 Lymph # (Auto) 0.36 L [place] # (Auto) 0.3 Eos # (Auto) 0.0 Baso # (Auto) 0.0 Abs Immat Gran (auto) 0.03 Absolute Neuts (auto) 4.4 Absolute Nucleated RBC 0.000 Nucleated RBC % 0.0 Puncture Site Right radial ABG pH 7.523 H* ABG pCO2 35.8 ABG pO2 64.5 L ABG PO2/FiO2 Ratio 2.15 ABG HCO3 28.8 H ABG O2 Saturation 94.6 L ABG O2 Content 13.2 L ABG Base Excess 5.8 A-a Gradient 107.3 Oxyhemoglobin 92.5 Carboxyhemoglobin 0.3 Methemoglobin 0.3 Reduced Hemoglobin 6.9 H Total Hemoglobin 10.1 L O2 Delivery Device Ventilator O2 Liters/Min Not Reportable Minute Volume Not Reportable Vent Rate Not Reportable Vent Mode Asv FiO2 30 Tidal Volume Not Reportable PEEP 5 Peak Inspir Pressure Not Reportable Pressure Support Not Reportable Sodium 138 Potassium 3.6 Chloride 103 Carbon Dioxide 28 Anion Gap 7 BUN 39 H D Creatinine 1.68 H Estim Creat Clear Calc 44 Estimated GFR 30 L Glucose 232 H POC Capillary Glucose 233 H Calcium 8.4 Phosphorus 2.5 Magnesium 2.1 Total Bilirubin 0.7 AST 18 ALT 46 H Alkaline Phosphatase 105 Total Protein 6.0 L Albumin 2.7 L 04/16/24 07:36 WBC RBC Hgb Hct MCV MCH MCHC RDW Plt Count MPV Immature Gran % (Auto) Neut % (Auto) Lymph % (Auto) [place] % (Auto) Eos % (Auto) Baso % (Auto) Lymph # (Auto) [place] # (Auto) Eos # (Auto) Baso # (Auto) Abs Immat Gran (auto) Absolute Neuts (auto) Absolute Nucleated RBC Nucleated RBC % Puncture Site ABG pH ABG pCO2 ABG pO2 ABG PO2/FiO2 Ratio ABG HCO3 ABG O2 Saturation ABG O2 Content ABG Base Excess A-a Gradient Oxyhemoglobin Carboxyhemoglobin Methemoglobin Reduced Hemoglobin Total Hemoglobin O2 Delivery Device O2 Liters/Min Minute Volume Vent Rate Vent Mode FiO2 Tidal Volume PEEP Peak Inspir Pressure Pressure Support Sodium Potassium Chloride Carbon Dioxide Anion Gap BUN Creatinine Estim Creat Clear Calc Estimated GFR Glucose POC Capillary Glucose 244 H Calcium Phosphorus Magnesium Total Bilirubin AST ALT Alkaline Phosphatase Total Protein Albumin
--- NOTE | 2024-04-16 11:49 | WPDINTPN ---
Progress Note: A&P Assessment and Plan (1) Acute hypoxic respiratory failure: Code(s): J96.01 - Acute respiratory failure with hypoxia Status: Acute Assessment and Plan: Acute hypoxic respiratory failure secondary to pneumonia and congestive heart failure Patient now emergently intubated 03/28 -03/28: Repeat PCR was positive RSV -continue isolation -chest x-ray and ABGs reviewed this morning -Currently PEEP to 10 and FiO2 down to 30% -patient will require additional fluid removal before considering weaning from mechanical ventilation -04/09: Started on Precedex infusion, Versed and fentanyl infusion were discontinued -status post stress dose steroids. -discussed with Nephrology, patient did have if improved urine output over the last 24 hours, and since she did not tolerate dialysis well, resolute professional recommended commended Bumex 2 mg IV x1. If she does not respond well, will have to dialyze the patient 04/06: Patient did respond to Bumex that was given yesterday with 1900 mL urine output in the last 24 hours 04/07: A new dialysis catheter has been placed in the left IJ, currently functioning well. Have discussed with Nephrology to continue to remove fluid 04/08: Patient was dialyzed yesterday with 1000 mL in fluid removal, urine output has been adequate, I have asked the bedside RN to turn of the sedation, patient remains somnolent, will place patient on ASV, start Precedex infusion since she is getting tachycardic and hypertensive. Once she is more awake will place her on SBT and evaluate for extubation -04/09: Patient getting dialyzed today. Received Bumex last night with good urine output. Chest x-ray shows worsening airspace opacity right mid and lower lung zones. Worsened small right pleural effusion. FiO2 requirements have increased to 60% from 35%. Place patient on pressure support ventilation, 02/06, low tidal volumes, tachypnea, tachycardia, had to be placed back on CMV mode Discussed with and daughter and updated them with patient's condition, intubated for almost 2 weeks, they agreeable with tracheostomy, as scheduled and with ENT for 04/11/2024. -GI has been consulted for PEG tube placement 04/10: Tried to place patient again on pressure support ventilation 02/06, was not getting adequate tidal volumes, was also tachypneic. Also tried ASV, her respiratory rate was too low. I have asked the bedside RN to come down on her Precedex 04/11: Status post tracheostomy 04/12: PEG tube scheduled for today, Placed patient on ASV mode of ventilation, will switch to pressure support after PEG tube placement 04/13: Patient getting dialysis, after which will switch to ASV mode of ventilation or pressure support ventilation 04/14: Increased secretions around the tracheostomy incision site, sent for culture. Currently afebrile, normal WBC count, will hold antibiotic. Place him this placed on ASV mode of ventilation and tolerating well, almost all of her breaths are spontaneous 04/15: Patient tolerated ASV mode of ventilation all day yesterday and through the night. Will continue on ASV mode she is breathing spontaneously. 04/16: Cultures around the tracheostomy side from 04/14: Growing Pseudomonas, sensitivities pending. STARTED PATIENT ON CEFEPIME 04/16, 03/27 CTA chest Impression: No evidence of pulmonary embolus, aortic dissection, or aortic aneurysm. Extensive right lower lobe pneumonia. Probable mildly prominent reactive lymphadenopathy the right axilla and subcarinal region. (2) Sepsis: Code(s): A41.9 - Sepsis, unspecified organism Status: Acute Assessment and Plan: RESOLVED Sepsis/septic shock secondary to community-acquired pneumonia, initial procalcitonin level 4.4 Blood cultures ordered and negative till now Sputum cultures negative Urine Legionella and pneumococcal antigen negative Status post cefepime and azithromycin MRSA screen negative. Vancomycin discontinued (3) Diabetes: Code(s): E11.9 - Type 2 diabetes mellitus without complications Status: Chronic Assessment and Plan: Status post insulin infusion Off Lantus -continue Accu-Cheks and sliding scale insulin -tube feeds restarted after PEG tube placement on 02/10/2025, tolerating (4) Atrial fibrillation with RVR: Code(s): I48.91 - Unspecified atrial fibrillation Status: Acute Assessment and Plan: Patient was amiodarone infusion which has been switched to p.o. amiodarone per tube metoprolol by Cardiology Patient is anticoagulated with Eliquis, -continue metoprolol and amiodarone per tube Echo Summary 1. Very technically difficult study with limited views. 2. Left ventricular chamber dimension is normal. 3. Left ventricular systolic function is at lower limits of normal, estimated at 50-55%. 4. Left atrial chamber dimension is moderately enlarged (5) Community acquired pneumonia: Code(s): J18.9 - Pneumonia, unspecified organism Status: Acute Assessment and Plan: See above (6) Altered mental status: Code(s): R41.82 - Altered mental status, unspecified Status: Acute Assessment and Plan: RESOLVED Likely secondary to hypoxia. Patient had CT scan of the head recently done which was unremarkable Repeat head CT on 03/28 was again unremarkable Ammonia levels within normal limit TSH was normal -patient continues to open her eyes and follows simple commands (7) Electrolyte abnormality: Code(s): E87.8 - Other disorders of electrolyte and fluid balance, not elsewhere classified Status: Acute Assessment and Plan: Patient on dialysis (8) Shock: Code(s): R57.9 - Shock, unspecified Status: Acute Assessment and Plan: RESOLVED Patient was on Levophed and vasopressin infusion which are currently off -off stress dose steroid - status post 25% albumin -Hold further crystalloids (9) VINCENT (acute kidney injury): Code(s): N17.9 - Acute kidney failure, unspecified Status: Acute Assessment and Plan: Increase in creatinine and drop in urine output likely secondary to shock Patient received IV fluids and 5% albumin earlier in the course. norm CK level Renal ultrasound showed No hydronephrosis. Perinephric fluid collection adjacent to the left lower pole. Nephrology following Continued maintain mean arterial pressure with vasopressors if needed 2/ Discussed with resolute professional and patient's family. Discussed risks and benefits of starting hemodialysis. Fuel Injection Servicer and patient's family in agreement. Patient's consented to proceed. Temporary dialysis catheter placed. Patient was dialyzed. Further dialysis per as per Nephrology -04/04: Patient did not tolerate dialysis as she became tachypneic, tachycardic and hypotensive requiring restarting Levophed. -04/05: Fuel Injection Servicer recommended giving Bumex 2 mg IV x1 since patient had slightly improved urine output over the last 24 hours and a creatinine and BUN trending downward, - will monitor urine output, renal function and electrolytes 04/06: Discuss with Nephrology, patient received dialysis today with no removal of fluid 04/07: New left IJ dialysis catheter was inserted today, currently functioning well. Right IJ dialysis catheter was removed -dialysis per Nephrology 04/13: Status post tunneled dialysis catheter placement by surgery (10) Elevated liver enzymes: Code(s): R74.8 - Abnormal levels of other serum enzymes Status: Acute Assessment and Plan: Patient is status post cholecystectomy Elevated AST ALT and alkaline phosphatase likely secondary to shock liver Hold statin Right upper quadrant ultrasound - Status post cholecystectomy. Pancreas poorly visualized. Otherwise normal abdominal ultrasound findings. While hepatitis panel was negative Levels were increasing I have discussed with Cardiology regarding potential amiodarone related hepatotoxicity. Patient was on IV amiodarone earlier for rate control as patient was in AFib with RVR. It was switched to p.o. as the rate improved. / amiodarone was held GI consult and following LFTs have been improving, continue to monitor Plan DVT prophylaxis -continue Eliquis Stress ulcer prophylaxis -protonix Nutrition -tolerating tube feeds Code Status - Full Code Total Critical Care Time - 33 minutes Discussed patient's daughter and has been and updated her with patient's condition and plan of care. They are aware that Care coordination is working on LTAC placement. I answered all their questions Due to a high probability of clinically significant, life threatening deterioration, the patient required my highest level of preparedness to intervene emergently and I personally spent this critical care time directly and personally managing the patient. This critical care time included obtaining a history; examining the patient; pulse oximetry; ordering and review of studies; arranging urgent treatment with development of a management plan; evaluation of patient's response to treatment; frequent reassessment; and discussions with other providers. It was exclusive of separately billable procedures and treating other patients and teaching time. Please see Assessment and Plan section and the rest of the note for further information on patient assessment and treatment This dictation may have been done utilizing a voice recognition system. Attempts have been made to correct errors. However, there may be uncorrected grammatical, spelling, and recognitions errors present. Subjective Date/time seen: 04/16/24 11:49 Interval history: 68yo female with AFib s/p SHAYY cardioversion that was unsuccessful, KAREN not using CPAP, DM, HTN and endometrial cancer who presents with shortness of breath, leg swelling and weight gain over the past few weeks. Now in with respiratory failure secondary to pneumonia with septic shock. Intubated and on mechanical ventilation. RSV positive, acute kidney injury status post dialysis catheter and dialysis 04/07: A new Left IJ dialysis catheter was inserted 04/11: Status post tracheostomy by ENT 04/12: PEG tube placed by GI 04/13: Tunnel dialysis catheter placement by surgery 04/15/2024: Patient seen and examined in the ICU, has a tracheostomy in place, on ASV mode of ventilation since 04/14/2024. Is awake, alert, follows simple commands in all extremities. Continues to have drainage around the tracheostomy tube, culture grew Pseudomonas. Patient is afebrile, hemodynamically stable, remains in AFib, rate controlled, continues to have urine output. Had hemodialysis yesterday with 2500 mL in fluid removal Review of Systems Review of Systems: ROS unobtainable: Yes unobtainable due to endotracheal tube, unobtainable due to medical condition and unobtainable due to mental status Exam Narrative: General: Off all sedation, in no acute distress Lungs/Chest: Coarse breath sounds bilaterally, no wheezing, decreased air entry at bases Rt > Lt, tracheostomy in place with samaniego-colored drainage around the tracheostomy site Cardiac: Irregularly irregular, rate controlled Circulation: Pedal pulses are intact and symmetrical. Abdomen: Normoactive bowel sounds bowel sounds. Morbidly Obese. Soft. NT. ND. PEG tube in place Extremities: No clubbing, cyanosis, bilateral upper and lower extremity edema improving : Can in place Neurologic: Status post tracheostomy, no sedated, opens her eyes, follows simple command in all extremities, pupils equal and reactive to light Objective Data Vital Signs Vital Signs: Vital Signs - 24 hr 04/15/24 12:00 04/15/24 12:00 04/15/24 12:00 Temperature 100.3 F H Pulse Rate 117 H 119 H Respiratory Rate 20 Blood Pressure 101/68 101/68 Pulse Oximetry 90 90 Oxygen Delivery Mechanical Ventilation Fraction of Inspired Oxygen 04/15/24 12:00 04/15/24 12:00 04/15/24 12:15 Temperature Pulse Rate 107 H 116 H Respiratory Rate Blood Pressure 106/78 Pulse Oximetry Oxygen Delivery Fraction of Inspired Oxygen 04/15/24 12:30 04/15/24 12:45 04/15/24 13:00 Temperature Pulse Rate 120 H 116 H 113 H Respiratory Rate Blood Pressure 98/82 L 108/77 109/69 Pulse Oximetry Oxygen Delivery Fraction of Inspired Oxygen 04/15/24 13:15 04/15/24 13:30 04/15/24 14:00 Temperature 100.4 F H 100.3 F H Pulse Rate 118 H 114 H 117 H Respiratory Rate 24 H 25 H Blood Pressure 113/65 102/77 107/72 Pulse Oximetry 93 93 Oxygen Delivery Fraction of Inspired Oxygen 04/15/24 14:00 04/15/24 15:26 04/15/24 16:00 Temperature 100.5 F H 100.4 F H Pulse Rate 107 H 105 H Respiratory Rate 19 Blood Pressure 120/86 Pulse Oximetry 96 Oxygen Delivery Fraction of Inspired Oxygen 04/15/24 16:00 04/15/24 16:00 04/15/24 16:00 Temperature Pulse Rate 107 H Respiratory Rate Blood Pressure Pulse Oximetry 95 Oxygen Delivery Mechanical Ventilation Fraction of Inspired Oxygen 30 30 04/15/24 16:08 04/15/24 16:26 04/15/24 18:00 Temperature 100.4 F H 99.8 F H Pulse Rate 88 101 H Respiratory Rate 14 Blood Pressure 110/70 Pulse Oximetry 95 95 Oxygen Delivery Mechanical Ventilation Fraction of Inspired Oxygen 30 04/15/24 18:00 04/15/24 20:00 04/15/24 20:00 Temperature 99.3 F Pulse Rate 93 93 Respiratory Rate 18 Blood Pressure 120/79 Pulse Oximetry 96 Oxygen Delivery Fraction of Inspired Oxygen 30 04/15/24 20:00 04/15/24 20:00 04/15/24 20:48 Temperature Pulse Rate 94 92 Respiratory Rate Blood Pressure Pulse Oximetry 96 Oxygen Delivery Mechanical Ventilation Fraction of Inspired Oxygen 30 04/15/24 21:32 04/15/24 22:00 04/15/24 22:00 Temperature 99.4 F Pulse Rate 81 94 87 Respiratory Rate 19 Blood Pressure 119/74 Pulse Oximetry 96 96 Oxygen Delivery Mechanical Ventilation Fraction of Inspired Oxygen 30 04/15/24 23:43 04/16/24 00:00 04/16/24 00:00 Temperature 99.3 F Pulse Rate 79 88 Respiratory Rate 17 Blood Pressure 113/87 Pulse Oximetry 96 95 Oxygen Delivery Mechanical Ventilation Fraction of Inspired Oxygen 30 30 04/16/24 00:00 04/16/24 00:00 04/16/24 01:56 Temperature Pulse Rate 88 95 Respiratory Rate Blood Pressure Pulse Oximetry 95 94 Oxygen Delivery Mechanical Ventilation Mechanical Ventilation Fraction of Inspired Oxygen 30 30 04/16/24 02:00 04/16/24 02:00 04/16/24 04:00 Temperature 99.4 F Pulse Rate 91 91 Respiratory Rate 17 Blood Pressure 120/78 Pulse Oximetry 95 Oxygen Delivery Fraction of Inspired Oxygen 30 04/16/24 04:00 04/16/24 04:00 04/16/24 04:00 Temperature 99.0 F Pulse Rate 92 84 Respiratory Rate 19 Blood Pressure 123/90 Pulse Oximetry 96 96 Oxygen Delivery Mechanical Ventilation Fraction of Inspired Oxygen 30 04/16/24 06:00 04/16/24 06:00 04/16/24 06:02 Temperature 98.9 F Pulse Rate 88 88 108 H Respiratory Rate 15 Blood Pressure 123/91 H Pulse Oximetry 96 97 Oxygen Delivery Mechanical Ventilation Fraction of Inspired Oxygen 30 04/16/24 08:00 04/16/24 08:00 04/16/24 08:00 Temperature 98.6 F Pulse Rate 90 Respiratory Rate 13 Blood Pressure 106/64 Pulse Oximetry 96 95 Oxygen Delivery Mechanical Ventilation Fraction of Inspired Oxygen 30 30 04/16/24 08:00 04/16/24 08:44 04/16/24 09:26 Temperature Pulse Rate 82 108 H 82 Respiratory Rate Blood Pressure Pulse Oximetry 97 Oxygen Delivery Mechanical Ventilation Fraction of Inspired Oxygen 30 04/16/24 09:27 04/16/24 10:00 04/16/24 10:00 Temperature Pulse Rate 90 88 73 Respiratory Rate 18 Blood Pressure 118/80 Pulse Oximetry 95 Oxygen Delivery Fraction of Inspired Oxygen 04/16/24 11:46 Temperature Pulse Rate 86 Respiratory Rate Blood Pressure Pulse Oximetry 97 Oxygen Delivery Mechanical Ventilation Fraction of Inspired Oxygen 30 Intake/Output Intake/Output: Intake & Output 04/13/24 04/14/24 04/15/24 04/16/24 23:59 23:59 23:59 23:59 Intake Total 315 1238 1300 602 Output Total 3275 750 3177 350 Kpxbdbx -5250 355 -9037 252 Meds/Results Medications: Active Medications Generic Name Dose Route Start Last Admin Trade Name Freq PRN Reason Stop Dose Admin Acetaminophen 650 mg 03/27/24 14:41 04/15/24 15:26 Acetaminophen 325 Mg Tablet PO 650 mg Q4H PRN Administration Mild Pain (1-3) or Fever Alteplase, Recombinant 2 mg 04/06/24 03:11 04/06/24 03:22 Alteplase 2 Mg Vial (Cathflo) IV PUSH 2 mg ONCE PRN Administration Line Occlusion Amiodarone HCl 400 mg 04/01/24 10:40 04/16/24 09:27 Amiodarone Hcl 200 Mg Tablet PO 400 mg DAILY LAVERNE Administration Apixaban 5 mg 04/13/24 21:00 04/16/24 09:27 Apixaban 5 Mg Tablet PO 5 mg Q12HR LAVERNE Administration Bisacodyl 10 mg 04/10/24 02:20 04/10/24 06:21 Bisacodyl 10 Mg Suppository RECTAL 10 mg QAM PRN Administration Constipation Cyanocobalamin 1,000 mcg 03/27/24 17:00 04/16/24 09:26 Cyanocobalamin 1,000 Mcg Tablet PO 1,000 mcg BID LAVERNE Administration Dextrose 12.5 gm 03/27/24 08:57 Dextrose 50% 25 Gm/50 Ml Syringe IV PUSH PRN PRN Hypoglycemia Protocol Docosanol 1 applic 04/09/24 09:00 04/16/24 09:28 Docosanol 10% Cream 2 Gm TOPICAL 1 applic 5 TIMES DAILY LAVERNE Administration Glucagon 1 mg 03/27/24 08:57 Glucagon For Inj 1 Mg Vial IM PRN PRN Hypoglycemia Protocol Glucose 15 gm 03/27/24 08:57 Glucose Oral Gel 15 Gm Of Glucse In 37.5 Gm Tube PO PRN PRN Hypoglycemia Protocol Dextrose 1,000 mls @ 100 mls/hr 03/27/24 08:57 Dextrose 5% 1,000 Ml IVPB PRN PRN Hypoglycemia Protocol Albumin Human 50 mls @ 999 mls/hr 04/03/24 09:19 04/07/24 15:05 Albutein IVPB 05/03/24 09:18 100 mls/hr Q10M PRN Administration HYPOTENSION Cefepime HCl 0.5 gm/ Dextrose 50 mls @ 100 mls/hr 04/17/24 15:00 IVPB DAILY@1500 [facility] Insulin Aspart 4 - 8 units 03/29/24 13:00 04/16/24 09:27 Insulin Aspart (*Bkc) 100 Units/Ml SUB-Q 4 units Q4HR LAVERNE Administration Protocol Metoprolol Tartrate 5 mg 04/12/24 00:00 04/12/24 06:14 Metoprolol Tartrate Inj 5 Mg/5 Ml Vial IV PUSH Not Given Q6HR [facility] Metoprolol Tartrate 50 mg 04/14/24 09:00 04/16/24 09:26 Metoprolol Tartrate 50 Mg Tab PO 50 mg Q12HR LAVERNE Administration Midazolam HCl 2 mg 04/11/24 16:46 04/14/24 05:28 Midazolam Hcl (*Crx) 2 Mg/2 Ml Vial IV PUSH 2 mg Q2H PRN Administration Ventilator Asynchrony Multi-Ingred Cream/Lotion/Oil/Oint 1 applic 03/28/24 21:00 04/16/24 09:30 Mineral Oil/White Petrolatum Ointment EACH EYE 1 applic Q12HR LAVERNE Administration Pantoprazole Sodium 40 mg 03/29/24 09:00 04/16/24 09:29 Pantoprazole Sodium Iv 40 Mg Vial IV PUSH 40 mg DAILY LAVERNE Administration Polyethylene Glycol 17 gm 04/12/24 07:50 Polyethylene Glycol 3350 17 Gm Powd.Pack PO QAM PRN Constipation Rosuvastatin Calcium 20 mg 03/28/24 09:00 03/31/24 09:28 Rosuvastatin 20 Mg Tablet PO Not Given DAILY LAVERNE Senna/Docusate Sodium 1 tab 04/07/24 21:00 04/15/24 20:48 Senna/Docusate Sodium Tablet PO 1 tab HS LAVERNE Administration Sodium Chloride 10 ml 03/28/24 22:00 04/16/24 06:07 Central Line Flush IV PUSH 10 ml Q8HR LAVERNE Administration Sodium Chloride 10 ml 03/28/24 16:14 Central Line Flush IV PUSH PRN PRN with TPN bag changes Sodium Chloride 20 ml 03/28/24 16:14 Central Line Flush IV PUSH PRN PRN after blood draws Radiology Results: ITS Impressions Chest CTA 03/27/24 06:41 Impression: No evidence of pulmonary embolus, aortic dissection, or aortic aneurysm. Extensive right lower lobe pneumonia. Probable mildly prominent reactive lymphadenopathy the right axilla and subcarinal region. Head CT 03/28/24 22:59 IMPRESSION: 1. Normal brain. Abdomen X-Ray 03/29/24 08:59 IMPRESSION: 1. Lines and tubes in expected positions. 2. Diffuse bilateral lung disease, right greater than left, consistent with multifocal pneumonia. Renal Ultrasound 03/31/24 15:34 IMPRESSION: No hydronephrosis. Perinephric fluid collection adjacent to the left lower pole. Abdomen Ultrasound 03/31/24 15:39 IMPRESSION: Status post cholecystectomy. Pancreas poorly visualized. Otherwise normal abdominal ultrasound findings. Chest X-Ray 04/16/24 06:45 IMPRESSION: 1. Decreasing opacities in the right lower lung zone consistent with improving atelectasis and/or pneumonia. 2. Cardiomegaly. 2. Lines and tubes unchanged with tip in the left internal jugular central venous catheter in the right brachiocephalic vein. Labs Labs: Laboratory Results - last 24 hr 04/15/24 04/15/24 04/15/24 17:50 21:22 23:44 WBC RBC Hgb Hct MCV MCH MCHC RDW Plt Count MPV Immature Gran % (Auto) Neut % (Auto) Lymph % (Auto) [place] % (Auto) Eos % (Auto) Baso % (Auto) Lymph # (Auto) [place] # (Auto) Eos # (Auto) Baso # (Auto) Abs Immat Gran (auto) Absolute Neuts (auto) Absolute Nucleated RBC Nucleated RBC % Puncture Site ABG pH ABG pCO2 ABG pO2 ABG PO2/FiO2 Ratio ABG HCO3 ABG O2 Saturation ABG O2 Content ABG Base Excess A-a Gradient Oxyhemoglobin Carboxyhemoglobin Methemoglobin Reduced Hemoglobin Total Hemoglobin O2 Delivery Device O2 Liters/Min Minute Volume Vent Rate Vent Mode FiO2 Tidal Volume PEEP Peak Inspir Pressure Pressure Support Sodium Potassium Chloride Carbon Dioxide Anion Gap BUN Creatinine Estim Creat Clear Calc Estimated GFR Glucose POC Capillary Glucose 231 H 234 H 233 H Calcium Phosphorus Magnesium Total Bilirubin AST ALT Alkaline Phosphatase Total Protein Albumin 04/16/24 04/16/24 04/16/24 04:50 05:29 07:36 WBC 5.2 RBC 3.03 L Hgb 9.2 L Hct 29.1 L MCV 96.0 MCH 30.4 MCHC 31.6 L RDW 16.9 H Plt Count 192 MPV 9.2 Immature Gran % (Auto) 0.6 H Neut % (Auto) 85.4 H Lymph % (Auto) 7.0 L [place] % (Auto) 6.0 Eos % (Auto) 0.8 Baso % (Auto) 0.2 Lymph # (Auto) 0.36 L [place] # (Auto) 0.3 Eos # (Auto) 0.0 Baso # (Auto) 0.0 Abs Immat Gran (auto) 0.03 Absolute Neuts (auto) 4.4 Absolute Nucleated RBC 0.000 Nucleated RBC % 0.0 Puncture Site Right radial ABG pH 7.523 H* ABG pCO2 35.8 ABG pO2 64.5 L ABG PO2/FiO2 Ratio 2.15 ABG HCO3 28.8 H ABG O2 Saturation 94.6 L ABG O2 Content 13.2 L ABG Base Excess 5.8 A-a Gradient 107.3 Oxyhemoglobin 92.5 Carboxyhemoglobin 0.3 Methemoglobin 0.3 Reduced Hemoglobin 6.9 H Total Hemoglobin 10.1 L O2 Delivery Device Ventilator O2 Liters/Min Not Reportable Minute Volume Not Reportable Vent Rate Not Reportable Vent Mode Asv FiO2 30 Tidal Volume Not Reportable PEEP 5 Peak Inspir Pressure Not Reportable Pressure Support Not Reportable Sodium 138 Potassium 3.6 Chloride 103 Carbon Dioxide 28 Anion Gap 7 BUN 39 H D Creatinine 1.68 H Estim Creat Clear Calc 44 Estimated GFR 30 L Glucose 232 H POC Capillary Glucose 244 H Calcium 8.4 Phosphorus 2.5 Magnesium 2.1 Total Bilirubin 0.7 AST 18 ALT 46 H Alkaline Phosphatase 105 Total Protein 6.0 L Albumin 2.7 L Quality VTE Prophylaxis VTE prophylaxis: pharmacologic ordered
[2024-04-16 11:50] LABS: Glucose Point of Care 261 mg/dl (65-105)
[2024-04-16 16:02] LABS: Glucose Point of Care 239 mg/dl (65-105)
[2024-04-16 20:30] LABS: Glucose Point of Care 238 mg/dl (65-105)
[2024-04-16] MEDS: SENNA/DOCUSATE SODIUM TABLET 1 TAB PO (20:31)
[2024-04-17] VITALS (25 sets, daily range): BP systolic 113–143; BP diastolic 69–97; PULSE 73–97; RESP 14–21; TEMP 37.1–37.6; O2SAT 92–98
[2024-04-17] MEDS: INSULIN ASPART (*BKC) 100 UNITS/ML SUB-Q ×6 (00:07→21:44)
[2024-04-17 00:19] LABS: Glucose Point of Care 237 mg/dl (65-105)
[2024-04-17] MEDS: CENTRAL LINE FLUSH 10 ML IV PUSH ×3 (05:07→20:59)
[2024-04-17 05:10] LABS: Glucose Point of Care 249 mg/dl (65-105)
[2024-04-17 05:21] LABS: Alveolar/Arterial O2 Gradient 117.9 mmHg; Base Excess ABG 3.7 mEq/l (+/-2.0); Fractional Inspired Oxygen 30 %; HCO3 ABG 25.8 mEq/l (22.0-26.0); Methemoglobin ABG 0.3 %THb (0-1.5); Oxygen Content ABG 13.3 %vol (16.0-22.0); Oxygen Saturation ABG 94.2 % (95.0-100.0); Oxyhemoglobin 92.7 % THb (90.0-100.0); PCO2 ABG 30.2 mmHg (35.0-45.0); PO2 ABG 60.5 mmHg (80.0-100.0); PO2 FiO2 Ratio Arterial Blood 2.02 %; Total Hemoglobin 10.2 g/dL (12.0-18.0)
[2024-04-17 05:52] LABS: Basophils Percent Auto 0.2 % (0.2-1.2); Eosinophils Percent Auto 0.7 % (0-4.4); Hematocrit 30.1 % (37.0-47.0); Hemoglobin 9.3 g/dL (12.0-15.0); Immature Granulocyte Absolute 0.02 K/mm3 (0.00-0.031); Immature Granulocyte Percent A 0.4 % (0-0.5); Lymphocytes Absolute Auto 0.27 K/mm3 (0.9-3.2); Lymphocytes Percent Auto 4.7 % (18.3-44.2); Mean Corpuscular HGB Conc 30.9 g/dl (32-36); Mean Corpuscular Hemoglobin 29.7 pg (26-34); Mean Corpuscular Volume 96.2 fl (80-100); Monocytes Absolute Auto 0.3 K/mm3 (0.1-0.6); Monocytes Percent Auto 5.1 % (2.6-8.5); Neutrophils Absolute Auto 5.1 K/mm3 (1.3-6.7); Neutrophils Percent Auto 88.9 % (45.5-73.1); Platelet Count Result 197 k/mm3 (150-375); Red Blood Count 3.13 M/mm3 (4.2-5.4); Red Cell Distribution Width 16.6 % (11.5-14.5); White Blood Count 5.7 K/mm3 (4.5-10.0)
[2024-04-17 05:53] LABS: Device VENTILATOR; Modified Allen's Test Pass; Site Drawn RIGHT RADIAL; pH ABG 7.549 (7.350-7.450)
[2024-04-17 05:54] LABS: Arterial Blood Gas Minute Volume 6.2 LPM; Arterial Blood Gas PEEP 5 cmH2O; Arterial Blood Gas Pressure Support 40 cmH2O; Arterial Blood Gas Vent Mode ASV
[2024-04-17 06:06] LABS: Alanine Aminotransferase 41 U/L (6-35); Albumin Level 2.7 g/dL (3.5-5.1); Alkaline Phosphatase 105 U/L (38-126); Anion Gap 8 mmol/L (4-12); Aspartate Amino Transferase 18 U/L (14-36); Bilirubin,Total 0.7 mg/dL (0.2-1.3); Blood Urea Nitrogen 58 mg/dL (7-17); Calcium 8.4 mg/dL (8.4-10.2); Carbon Dioxide 28 mmol/L (22-30); Chloride 104 mmol/L (98-107); Estimated CRCL calculation 40 ml/min; Estimated Glomerular Filt Rate 27; Glucose 254 mg/dL (65-110); Phosphorus 2.6 mg/dL (2.5-4.5); Potassium 3.6 mmol/L (3.4-5.0); Sodium 140 mmol/L (137-145)
[2024-04-17] MEDS: METOPROLOL TARTRATE 50 MG TAB PO ×2 (08:29→20:57)
[2024-04-17] MEDS: AMIODARONE HCL 200 MG TABLET 400 MG PO (08:29)
[2024-04-17] MEDS: APIXABAN 5 MG TABLET PO ×2 (08:29→20:57)
[2024-04-17] MEDS: polyethylene glycoL 3350 17 GM POWD.PACK PO (08:29)
[2024-04-17] MEDS: PANTOPRAZOLE SODIUM IV 40 MG VIAL IV PUSH (08:29)
[2024-04-17] MEDS: CYANOCOBALAMIN 1,000 MCG TABLET 1000 MCG PO ×2 (08:30→17:05)
[2024-04-17] MEDS: DOCOSANOL 10% CREAM 2 GM 1 APPLIC TOPICAL ×5 (08:30→22:28)
[2024-04-17] MEDS: BISACODYL 10 MG SUPPOSITORY RECTAL (08:34)
[2024-04-17] MEDS: MINERAL OIL/WHITE PETROLATUM OINTMENT 1 APPLIC EACH EYE (09:00)
--- NOTE | 2024-04-17 09:45 | P.PNNP_ITS ---
Progress Note: A&P Assessment and Plan (1) VINCENT (acute kidney injury): Code(s): N17.9 - Acute kidney failure, unspecified Status: Acute Assessment and Plan: * as noted by trend of labs since admission * normal creatinine at baseline and on admission * multifactorial etiology: * hemodynamic instability/shock * infection/sepsis (pneumonia + RSV) * ARB + HCTZ use prior to admission * contrast (CTA of chest on 03/27) * hypoxia * afib with RVR * prerenal factors (?) * evaluation to date noted: * renal ultrasound without hydro * urine electrolytes prerenal * urine eosinophils negative * CPK normal * 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 2500cc was removed. * Oxygenation looks better. * BUN and creatinine climbed between yesterday and today but the patient did make plenty of urine. * Will recheck labs tomorrow morning before writing orders. * Will do another treatment on Thursday If the BUN creatinine continue to rise (2) Acute hypoxic respiratory failure: Code(s): J96.01 - Acute respiratory failure with hypoxia Status: Acute Assessment and Plan: * seconeary to pneumonia, RSV, and possible CHF * CTA of chest noted: * no evidence of pulmonary embolus, aortic dissection, or aortic aneurysm * extensive right lower lobe pneumonia * probable mildly prominent reactive lymphadenopathy the right axilla and subcarinal region * emergently intubated 03/28 * completed course of steroids * follow respiratory status * s/p tracheostomy (on 04/11) for prolonged ventilator weaning * patient is off sedatives and looking better. * Will remove some fluid tomorrow with dialysis (3) Septic shock: Code(s): A41.9 - Sepsis, unspecified organism; R65.21 - Severe sepsis with septic shock Status: Acute Assessment and Plan: * resolved * secondary to extensive pneumonia +/- RSV * cefepime ordered to cover paratracheal secretions. * cultures negative to date (4) Atrial fibrillation with RVR: Code(s): I48.91 - Unspecified atrial fibrillation Status: Acute Assessment and Plan: * heart rate in the 90s and 100s. * on Eliquis * Echo shows good LV function but a technically limited study * Cardiology following (5) Anemia: Code(s): D64.9 - Anemia, unspecified Status: Acute Assessment and Plan: * likely a manifestation of VINCENT and acute illness * on DANG with dialysis * hemoglobin stable in the low 9 (6) Community acquired pneumonia: Code(s): J18.9 - Pneumonia, unspecified organism Status: Acute Assessment and Plan: * completed course of antibiotics (7) Elevated liver enzymes: Code(s): R74.8 - Abnormal levels of other serum enzymes Status: Acute Assessment and Plan: * thought to be secondary to shock liver * Improving (8) Diabetes: Code(s): E11.9 - Type 2 diabetes mellitus without complications Status: Chronic Assessment and Plan: * follow accu-cheks * glycemic control per hospitalist/research neuropsychologist Subjective Date/time seen: 04/17/24 09:45 Interval history: patient is awake. Family is in the room. They are interacting. She denies shortness of breath. Exam Narrative: General: elderly but WD/WN female trached on mechanical ventilation Heart: IRRR, tachycardic, normal S1 and S2; no rub or gallop Lungs: coarse breath sounds bilaterally Abdomen: bowel sounds positive and soft Extremities: trace edema bilateral Skin: no rash Or subcu nodules Objective Data Vital Signs Vital Signs: Vital Signs - 24 hr 04/16/24 10:00 04/16/24 10:00 04/16/24 11:46 Temperature Pulse Rate 88 73 86 Respiratory Rate 18 Blood Pressure 118/80 Pulse Oximetry 95 97 Oxygen Delivery Mechanical Ventilation Fraction of Inspired Oxygen 30 04/16/24 12:00 04/16/24 12:00 04/16/24 12:00 Temperature 98.8 F Pulse Rate 79 Respiratory Rate 18 Blood Pressure 114/80 Pulse Oximetry 97 97 Oxygen Delivery Mechanical Ventilation Fraction of Inspired Oxygen 30 30 04/16/24 12:00 04/16/24 14:00 04/16/24 14:00 Temperature 98.8 F Pulse Rate 78 88 95 Respiratory Rate 17 Blood Pressure 119/79 Pulse Oximetry 95 Oxygen Delivery Fraction of Inspired Oxygen 04/16/24 14:05 04/16/24 16:00 04/16/24 16:00 Temperature 98.6 F Pulse Rate 90 84 Respiratory Rate 18 Blood Pressure 114/85 Pulse Oximetry 97 97 Oxygen Delivery Mechanical Ventilation Fraction of Inspired Oxygen 30 30 04/16/24 16:00 04/16/24 16:00 04/16/24 17:17 Temperature Pulse Rate 104 H 80 Respiratory Rate Blood Pressure Pulse Oximetry 97 97 Oxygen Delivery Mechanical Ventilation Mechanical Ventilation Fraction of Inspired Oxygen 30 30 04/16/24 18:00 04/16/24 18:00 04/16/24 19:51 Temperature 99.1 F Pulse Rate 85 72 82 Respiratory Rate 17 Blood Pressure 115/70 Pulse Oximetry 97 99 Oxygen Delivery Mechanical Ventilation Fraction of Inspired Oxygen 30 04/16/24 20:00 04/16/24 20:00 04/16/24 20:00 Temperature 99.1 F Pulse Rate 80 Respiratory Rate 11 L Blood Pressure 116/82 Pulse Oximetry 99 100 Oxygen Delivery Mechanical Ventilation Fraction of Inspired Oxygen 30 30 04/16/24 20:00 04/16/24 20:31 04/16/24 22:00 Temperature 98.8 F Pulse Rate 86 87 77 Respiratory Rate 13 Blood Pressure 113/76 Pulse Oximetry 97 Oxygen Delivery Fraction of Inspired Oxygen 04/16/24 22:00 04/16/24 23:38 04/17/24 00:00 Temperature Pulse Rate 77 91 Respiratory Rate Blood Pressure Pulse Oximetry 100 Oxygen Delivery Mechanical Ventilation Fraction of Inspired Oxygen 30 30 04/17/24 00:00 04/17/24 00:00 04/17/24 00:00 Temperature 99.0 F Pulse Rate 79 82 Respiratory Rate 18 Blood Pressure 119/79 Pulse Oximetry 94 94 Oxygen Delivery Mechanical Ventilation Fraction of Inspired Oxygen 30 04/17/24 01:51 04/17/24 01:52 04/17/24 03:00 Temperature 99.0 F Pulse Rate 83 88 88 Respiratory Rate 16 Blood Pressure 129/69 Pulse Oximetry 95 97 Oxygen Delivery Mechanical Ventilation Fraction of Inspired Oxygen 30 04/17/24 04:00 04/17/24 04:00 04/17/24 04:00 Temperature Pulse Rate 91 Respiratory Rate Blood Pressure Pulse Oximetry 94 Oxygen Delivery Mechanical Ventilation Fraction of Inspired Oxygen 30 30 04/17/24 04:00 04/17/24 05:07 04/17/24 06:00 Temperature 98.9 F Pulse Rate 89 92 92 Respiratory Rate 21 H Blood Pressure 128/90 Pulse Oximetry 93 93 Oxygen Delivery Mechanical Ventilation Fraction of Inspired Oxygen 30 04/17/24 06:00 04/17/24 08:29 04/17/24 08:29 Temperature 98.9 F Pulse Rate 88 97 96 Respiratory Rate 15 Blood Pressure 133/82 Pulse Oximetry 95 Oxygen Delivery Fraction of Inspired Oxygen Intake/Output Intake/Output: Intake & Output 04/14/24 04/15/24 04/16/24 04/17/24 23:59 23:59 23:59 23:59 Intake Total 1238 1300 1202 730 Output Total 750 3177 475 700 Balance 488 -1295 727 30 Meds/Results Medications: Active Medications Generic Name Dose Route Start Last Admin Trade Name Freq PRN Reason Stop Dose Admin Acetaminophen 650 mg 03/27/24 14:41 04/15/24 15:26 Acetaminophen 325 Mg Tablet PO 650 mg Q4H PRN Administration Mild Pain (1-3) or Fever Alteplase, Recombinant 2 mg 04/06/24 03:11 04/06/24 03:22 Alteplase 2 Mg Vial (Cathflo) IV PUSH 2 mg ONCE PRN Administration Line Occlusion Amiodarone HCl 400 mg 04/01/24 10:40 04/17/24 08:29 Amiodarone Hcl 200 Mg Tablet PO 400 mg DAILY LAVRENE Administration Apixaban 5 mg 04/13/24 21:00 04/17/24 08:29 Apixaban 5 Mg Tablet PO 5 mg Q12HR LAVERNE Administration Bisacodyl 10 mg 04/10/24 02:20 04/17/24 08:34 Bisacodyl 10 Mg Suppository RECTAL 10 mg QAM PRN Administration Constipation Cyanocobalamin 1,000 mcg 03/27/24 17:00 04/17/24 08:30 Cyanocobalamin 1,000 Mcg Tablet PO 1,000 mcg BID LAVERNE Administration Dextrose 12.5 gm 03/27/24 08:57 Dextrose 50% 25 Gm/50 Ml Syringe IV PUSH PRN PRN Hypoglycemia Protocol Docosanol 1 applic 04/09/24 09:00 04/17/24 08:30 Docosanol 10% Cream 2 Gm TOPICAL 1 applic 5 TIMES DAILY LAVERNE Administration Glucagon 1 mg 03/27/24 08:57 Glucagon For Inj 1 Mg Vial IM PRN PRN Hypoglycemia Protocol Glucose 15 gm 03/27/24 08:57 Glucose Oral Gel 15 Gm Of Glucse In 37.5 Gm Tube PO PRN PRN Hypoglycemia Protocol Dextrose 1,000 mls @ 100 mls/hr 03/27/24 08:57 Dextrose 5% 1,000 Ml IVPB PRN PRN Hypoglycemia Protocol Albumin Human 50 mls @ 999 mls/hr 04/03/24 09:19 04/07/24 15:05 Albutein IVPB 05/03/24 09:18 100 mls/hr Q10M PRN Administration HYPOTENSION Cefepime HCl 2 gm in 50 mls @ 100 mls/hr 04/16/24 11:57 Maxipime 2 Gm/Ns 50 Ml IVPB PRN PRN AFTER DIALYSIS Insulin Aspart 4 - 8 units 03/29/24 13:00 04/17/24 08:28 Insulin Aspart (*Bkc) 100 Units/Ml SUB-Q 4 units Q4HR LAVERNE Administration Protocol Metoprolol Tartrate 5 mg 04/12/24 00:00 04/12/24 06:14 Metoprolol Tartrate Inj 5 Mg/5 Ml Vial IV PUSH Not Given Q6HR LAVERNE Metoprolol Tartrate 50 mg 04/14/24 09:00 04/17/24 08:29 Metoprolol Tartrate 50 Mg Tab PO 50 mg Q12HR LAVERNE Administration Midazolam HCl 2 mg 04/11/24 16:46 04/14/24 05:28 Midazolam Hcl (*Crx) 2 Mg/2 Ml Vial IV PUSH 2 mg Q2H PRN Administration Ventilator Asynchrony Multi-Ingred Cream/Lotion/Oil/Oint 1 applic 03/28/24 21:00 04/16/24 20:31 Mineral Oil/White Petrolatum Ointment EACH EYE Not Given Q12HR LAVERNE Pantoprazole Sodium 40 mg 03/29/24 09:00 04/17/24 08:29 Pantoprazole Sodium Iv 40 Mg Vial IV PUSH 40 mg DAILY LAVERNE Administration Polyethylene Glycol 17 gm 04/12/24 07:50 04/17/24 08:29 Polyethylene Glycol 3350 17 Gm Powd.Pack PO 17 gm QAM PRN Administration Constipation Rosuvastatin Calcium 20 mg 03/28/24 09:00 03/31/24 09:28 Rosuvastatin 20 Mg Tablet PO Not Given DAILY LAVERNE Senna/Docusate Sodium 1 tab 04/07/24 21:00 04/16/24 20:31 Senna/Docusate Sodium Tablet PO 1 tab HS LAVERNE Administration Sodium Chloride 10 ml 03/28/24 22:00 04/17/24 05:07 Central Line Flush IV PUSH 10 ml Q8HR LAVERNE Administration Sodium Chloride 10 ml 03/28/24 16:14 Central Line Flush IV PUSH PRN PRN with TPN bag changes Sodium Chloride 20 ml 03/28/24 16:14 Central Line Flush IV PUSH PRN PRN after blood draws Radiology Results: ITS Impressions Chest CTA 03/27/24 06:41 Impression: No evidence of pulmonary embolus, aortic dissection, or aortic aneurysm. Extensive right lower lobe pneumonia. Probable mildly prominent reactive lymphadenopathy the right axilla and subcarinal region. Head CT 03/28/24 22:59 IMPRESSION: 1. Normal brain. Abdomen X-Ray 03/29/24 08:59 IMPRESSION: 1. Lines and tubes in expected positions. 2. Diffuse bilateral lung disease, right greater than left, consistent with multifocal pneumonia. Renal Ultrasound 03/31/24 15:34 IMPRESSION: No hydronephrosis. Perinephric fluid collection adjacent to the left lower pole. Abdomen Ultrasound 03/31/24 15:39 IMPRESSION: Status post cholecystectomy. Pancreas poorly visualized. Otherwise normal abdominal ultrasound findings. Chest X-Ray 04/17/24 06:19 IMPRESSION: Small right-sided pleural effusion. Redemonstration of a left internal jugular tunneled hemodialysis catheter with its tip projecting over the right brachiocephalic vein for which readjustment into a large central vein is recommended prior to dialysis. Remaining support tubes are in good position. Labs Labs: Laboratory Results - last 24 hr 04/16/24 04/16/24 04/16/24 11:46 15:59 20:26 WBC RBC Hgb Hct MCV MCH MCHC RDW Plt Count MPV Immature Gran % (Auto) Neut % (Auto) Lymph % (Auto) [place] % (Auto) Eos % (Auto) Baso % (Auto) Lymph # (Auto) [place] # (Auto) Eos # (Auto) Baso # (Auto) Abs Immat Gran (auto) Absolute Neuts (auto) Absolute Nucleated RBC Nucleated RBC % Puncture Site ABG pH ABG pCO2 ABG pO2 ABG PO2/FiO2 Ratio ABG HCO3 ABG O2 Saturation ABG O2 Content ABG Base Excess A-a Gradient Oxyhemoglobin Carboxyhemoglobin Methemoglobin Reduced Hemoglobin Total Hemoglobin O2 Delivery Device O2 Liters/Min Minute Volume Vent Rate Vent Mode FiO2 Tidal Volume PEEP Peak Inspir Pressure Pressure Support Sodium Potassium Chloride Carbon Dioxide Anion Gap BUN Creatinine Estim Creat Clear Calc Estimated GFR Glucose POC Capillary Glucose 261 H 239 H 238 H Calcium Phosphorus Magnesium Total Bilirubin AST ALT Alkaline Phosphatase Total Protein Albumin 04/16/24 04/17/24 04/17/24 23:58 04:58 05:07 WBC RBC Hgb Hct MCV MCH MCHC RDW Plt Count MPV Immature Gran % (Auto) Neut % (Auto) Lymph % (Auto) [place] % (Auto) Eos % (Auto) Baso % (Auto) Lymph # (Auto) [place] # (Auto) Eos # (Auto) Baso # (Auto) Abs Immat Gran (auto) Absolute Neuts (auto) Absolute Nucleated RBC Nucleated RBC % Puncture Site Right radial ABG pH 7.549 H* ABG pCO2 30.2 L ABG pO2 60.5 L ABG PO2/FiO2 Ratio 2.02 ABG HCO3 25.8 ABG O2 Saturation 94.2 L ABG O2 Content 13.3 L ABG Base Excess 3.7 A-a Gradient 117.9 Oxyhemoglobin 92.7 Carboxyhemoglobin 0.0 Methemoglobin 0.3 Reduced Hemoglobin 7.0 H Total Hemoglobin 10.2 L O2 Delivery Device Ventilator O2 Liters/Min Not Reportable Minute Volume 6.2 Vent Rate Not Reportable Vent Mode Asv FiO2 30 Tidal Volume Not Reportable PEEP 5 Peak Inspir Pressure Not Reportable Pressure Support 40 Sodium Potassium Chloride Carbon Dioxide Anion Gap BUN Creatinine Estim Creat Clear Calc Estimated GFR Glucose POC Capillary Glucose 237 H 249 H Calcium Phosphorus Magnesium Total Bilirubin AST ALT Alkaline Phosphatase Total Protein Albumin 04/17/24 05:46 WBC 5.7 RBC 3.13 L Hgb 9.3 L Hct 30.1 L MCV 96.2 MCH 29.7 MCHC 30.9 L RDW 16.6 H Plt Count 197 MPV 9.0 Immature Gran % (Auto) 0.4 Neut % (Auto) 88.9 H Lymph % (Auto) 4.7 L [place] % (Auto) 5.1 Eos % (Auto) 0.7 Baso % (Auto) 0.2 Lymph # (Auto) 0.27 L [place] # (Auto) 0.3 Eos # (Auto) 0.0 Baso # (Auto) 0.0 Abs Immat Gran (auto) 0.02 Absolute Neuts (auto) 5.1 Absolute Nucleated RBC 0.000 Nucleated RBC % 0.0 Puncture Site ABG pH ABG pCO2 ABG pO2 ABG PO2/FiO2 Ratio ABG HCO3 ABG O2 Saturation ABG O2 Content ABG Base Excess A-a Gradient Oxyhemoglobin Carboxyhemoglobin Methemoglobin Reduced Hemoglobin Total Hemoglobin O2 Delivery Device O2 Liters/Min Minute Volume Vent Rate Vent Mode FiO2 Tidal Volume PEEP Peak Inspir Pressure Pressure Support Sodium 140 Potassium 3.6 Chloride 104 Carbon Dioxide 28 Anion Gap 8 BUN 58 H D Creatinine 1.86 H Estim Creat Clear Calc 40 Estimated GFR 27 L Glucose 254 H POC Capillary Glucose Calcium 8.4 Phosphorus 2.6 Magnesium 2.0 Total Bilirubin 0.7 AST 18 ALT 41 H Alkaline Phosphatase 105 Total Protein 6.0 L Albumin 2.7 L
[2024-04-17 09:48] LABS: Glucose Point of Care 234 mg/dl (65-105)
--- NOTE | 2024-04-17 09:59 | P.PNIM_ITS ---
Progress Note: A&P Assessment and Plan (1) Acute hypoxic respiratory failure: Code(s): J96.01 - Acute respiratory failure with hypoxia Status: Acute Assessment and Plan: Acute hypoxic respiratory failure secondary to pneumonia and congestive heart failure Patient now emergently intubated 03/28 -03/28: Repeat PCR was positive RSV -continue isolation -chest x-ray and ABGs reviewed this morning -Currently PEEP to 10 and FiO2 down to 30% -patient will require additional fluid removal before considering weaning from mechanical ventilation -04/09: Started on Precedex infusion, Versed and fentanyl infusion were discontinued -status post stress dose steroids. -discussed with Nephrology, patient did have if improved urine output over the last 24 hours, and since she did not tolerate dialysis well, rn admission recommended commended Bumex 2 mg IV x1. If she does not respond well, will have to dialyze the patient 04/06: Patient did respond to Bumex that was given yesterday with 1900 mL urine output in the last 24 hours 04/07: A new dialysis catheter has been placed in the left IJ, currently functioning well. Have discussed with Nephrology to continue to remove fluid 04/08: Patient was dialyzed yesterday with 1000 mL in fluid removal, urine output has been adequate, I have asked the bedside RN to turn of the sedation, patient remains somnolent, will place patient on ASV, start Precedex infusion since she is getting tachycardic and hypertensive. Once she is more awake will place her on SBT and evaluate for extubation -04/09: Patient getting dialyzed today. Received Bumex last night with good urine output. Chest x-ray shows worsening airspace opacity right mid and lower lung zones. Worsened small right pleural effusion. FiO2 requirements have increased to 60% from 35%. Place patient on pressure support ventilation, 02/06, low tidal volumes, tachypnea, tachycardia, had to be placed back on CMV mode Discussed with and daughter and updated them with patient's condition, intubated for almost 2 weeks, they agreeable with tracheostomy, as scheduled and with ENT for 04/11/2024. -GI has been consulted for PEG tube placement 04/10: Tried to place patient again on pressure support ventilation 02/06, was not getting adequate tidal volumes, was also tachypneic. Also tried ASV, her respiratory rate was too low. I have asked the bedside RN to come down on her Precedex 04/11: Status post tracheostomy 04/12: PEG tube scheduled for today, Placed patient on ASV mode of ventilation, will switch to pressure support after PEG tube placement 04/13: Patient getting dialysis, after which will switch to ASV mode of ventilation or pressure support ventilation 04/14: Increased secretions around the tracheostomy incision site, sent for culture. Currently afebrile, normal WBC count, will hold antibiotic. Place him this placed on ASV mode of ventilation and tolerating well, almost all of her breaths are spontaneous 04/15: Patient tolerated ASV mode of ventilation all day yesterday and through the night. Will continue on ASV mode she is breathing spontaneously. 04/16: Cultures around the tracheostomy side from 04/14: Growing Pseudomonas, sensitivities pending. STARTED PATIENT ON CEFEPIME 04/16, 03/27 CTA chest Impression: No evidence of pulmonary embolus, aortic dissection, or aortic aneurysm. Extensive right lower lobe pneumonia. Probable mildly prominent reactive lymphadenopathy the right axilla and subcarinal region. 04/17 Status post PEG and trach. Stable. Waiting for placement. Will continue current treatment. (2) Sepsis: Code(s): A41.9 - Sepsis, unspecified organism Status: Acute Assessment and Plan: RESOLVED Sepsis/septic shock secondary to community-acquired pneumonia, initial procalcitonin level 4.4 Blood cultures ordered and negative till now Sputum cultures negative Urine Legionella and pneumococcal antigen negative Status post cefepime and azithromycin MRSA screen negative. Vancomycin discontinued (3) Diabetes: Code(s): E11.9 - Type 2 diabetes mellitus without complications Status: Chronic Assessment and Plan: Status post insulin infusion Off Lantus -continue Accu-Cheks and sliding scale insulin -tube feeds restarted after PEG tube placement on 02/10/2025, tolerating (4) Atrial fibrillation with RVR: Code(s): I48.91 - Unspecified atrial fibrillation Status: Acute Assessment and Plan: Patient was amiodarone infusion which has been switched to p.o. amiodarone per tube metoprolol by Cardiology Patient is anticoagulated with Eliquis, -continue metoprolol and amiodarone per tube Echo Summary 1. Very technically difficult study with limited views. 2. Left ventricular chamber dimension is normal. 3. Left ventricular systolic function is at lower limits of normal, estimated at 50-55%. 4. Left atrial chamber dimension is moderately enlarged (5) Community acquired pneumonia: Code(s): J18.9 - Pneumonia, unspecified organism Status: Acute Assessment and Plan: See above (6) Altered mental status: Code(s): R41.82 - Altered mental status, unspecified Status: Acute Assessment and Plan: RESOLVED Likely secondary to hypoxia. Patient had CT scan of the head recently done which was unremarkable Repeat head CT on 03/28 was again unremarkable Ammonia levels within normal limit TSH was normal -patient continues to open her eyes and follows simple commands (7) Electrolyte abnormality: Code(s): E87.8 - Other disorders of electrolyte and fluid balance, not elsewhere classified Status: Acute Assessment and Plan: Patient on dialysis (8) Shock: Code(s): R57.9 - Shock, unspecified Status: Acute Assessment and Plan: RESOLVED Patient was on Levophed and vasopressin infusion which are currently off -off stress dose steroid - status post 25% albumin -Hold further crystalloids (9) VINCENT (acute kidney injury): Code(s): N17.9 - Acute kidney failure, unspecified Status: Acute Assessment and Plan: Increase in creatinine and drop in urine output likely secondary to shock Patient received IV fluids and 5% albumin earlier in the course. norm CK level Renal ultrasound showed No hydronephrosis. Perinephric fluid collection adjacent to the left lower pole. Nephrology following Continued maintain mean arterial pressure with vasopressors if needed 2/ Discussed with rn admission and patient's family. Discussed risks and benefits of starting hemodialysis. Global Human Resources Director and patient's family in ag reement. Patient's consented to proceed. Temporary dialysis catheter placed. Patient was dialyzed. Further dialysis per as per Nephrology -04/04: Patient did not tolerate dialysis as she became tachypneic, tachycardic and hypotensive requiring restarting Levophed. -04/05: Global Human Resources Director recommended giving Bumex 2 mg IV x1 since patient had slightly improved urine output over the last 24 hours and a creatinine and BUN trending downward, - will monitor urine output, renal function and electrolytes 04/06: Discuss with Nephrology, patient received dialysis today with no removal of fluid 04/07: New left IJ dialysis catheter was inserted today, currently functioning well. Right IJ dialysis catheter was removed -dialysis per Nephrology 04/17: Status post tunneled dialysis catheter placement by surgery, Stable. (10) Elevated liver enzymes: Code(s): R74.8 - Abnormal levels of other serum enzymes Status: Acute Assessment and Plan: Patient is status post cholecystectomy Elevated AST ALT and alkaline phosphatase likely secondary to shock liver Hold statin Right upper quadrant ultrasound - Status post cholecystectomy. Pancreas poorly visualized. Otherwise normal abdominal ultrasound findings. While hepatitis panel was negative Levels were increasing I have discussed with Cardiology regarding potential amiodarone related hepatotoxicity. Patient was on IV amiodarone earlier for rate control as patie nt was in AFib with RVR. It was switched to p.o. as the rate improved. 04/03 amiodarone was held GI consult and following LFTs have been improving, continue to monitor Plan DVT prophylaxis -continue Eliquis Stress ulcer prophylaxis -protonix Nutrition -tolerating tube feeds Code Status - Full Code Subjective Date/time seen: 04/17/24 09:59 Interval history: Patient was seen during the morning rounds today. Patient is status post PEG and trach. Waiting for placement. No new overnight complaints. Review of Systems Review of Systems: All systems reviewed & are unremarkable except as noted in HPI and below ROS unobtainable: Yes unobtainable due to endotracheal tube, unobtainable due to medical condition and unobtainable due to mental status Exam Narrative: General: Off all sedation, in no acute distress Lungs/Chest: Coarse breath sounds bilaterally, no wheezing, decreased air entry at bases Rt > Lt, tracheostomy in place with samaniego-colored drainage around the tracheostomy site Cardiac: Irregularly irregular, rate controlled Circulation: Pedal pulses are intact and symmetrical. Abdomen: Normoactive bowel sounds bowel sounds. Morbidly Obese. Soft. NT. ND. PEG tube in place Extremities: No clubbing, cyanosis, bilateral upper and lower extremity edema improving : Can in place Neurologic: Status post tracheostomy, no sedated, opens her eyes, follows simple command in all extremities, pupils equal and reactive to light Objective Data Vital Signs Vital Signs: Vital Signs - 24 hr 04/16/24 10:04/16/24 10:04/16/24 11:46 Temperature Pulse Rate 88 73 86 Respiratory Rate 18 Blood Pressure 118/80 Pulse Oximetry 95 97 Oxygen Delivery Mechanical Ventilation Fraction of Inspired Oxygen 30 04/16/24 12:00 04/16/24 12:00 04/16/24 12:00 Temperature 37.1 C Pulse Rate 79 Respiratory Rate 18 Blood Pressure 114/80 Pulse Oximetry 97 97 Oxygen Delivery Mechanical Ventilation Fraction of Inspired Oxygen 30 30 04/16/24 12:00 04/16/24 14:00 04/16/24 14:00 Temperature 37.1 C Pulse Rate 78 88 95 Respiratory Rate 17 Blood Pressure 119/79 Pulse Oximetry 95 Oxygen Delivery Fraction of Inspired Oxygen 04/16/24 14:05 04/16/24 16:00 04/16/24 16:00 Temperature 37.0 C Pulse Rate 90 84 Respiratory Rate 18 Blood Pressure 114/85 Pulse Oximetry 97 97 Oxygen Delivery Mechanical Ventilation Fraction of Inspired Oxygen 30 30 04/16/24 16:00 04/16/24 16:00 04/16/24 17:17 Temperature Pulse Rate 104 H 80 Respiratory Rate Blood Pressure Pulse Oximetry 97 97 Oxygen Delivery Mechanical Ventilation Mechanical Ventilation Fraction of Inspired Oxygen 30 30 04/16/24 18:00 04/16/24 18:00 04/16/24 19:51 Temperature 37.3 C Pulse Rate 85 72 82 Respiratory Rate 17 Blood Pressure 115/70 Pulse Oximetry 97 99 Oxygen Delivery Mechanical Ventilation Fraction of Inspired Oxygen 30 04/16/24 20:00 04/16/24 20:00 04/16/24 20:00 Temperature 37.3 C Pulse Rate 80 Respiratory Rate 11 L Blood Pressure 116/82 Pulse Oximetry 99 100 Oxygen Delivery Mechanical Ventilation Fraction of Inspired Oxygen 30 30 04/16/24 20:00 04/16/24 20:31 04/16/24 22:00 Temperature 37.1 C Pulse Rate 86 87 77 Respiratory Rate 13 Blood Pressure 113/76 Pulse Oximetry 97 Oxygen Delivery Fraction of Inspired Oxygen 04/16/24 22:00 04/16/24 23:38 04/17/24 00:00 Temperature Pulse Rate 77 91 Respiratory Rate Blood Pressure Pulse Oximetry 100 Oxygen Delivery Mechanical Ventilation Fraction of Inspired Oxygen 30 30 04/17/24 00:00 04/17/24 00:00 04/17/24 00:00 Temperature 37.2 C Pulse Rate 79 82 Respiratory Rate 18 Blood Pressure 119/79 Pulse Oximetry 94 94 Oxygen Delivery Mechanical Ventilation Fraction of Inspired Oxygen 30 04/17/24 01:51 04/17/24 01:52 04/17/24 03:00 Temperature 37.2 C Pulse Rate 83 88 88 Respiratory Rate 16 Blood Pressure 129/69 Pulse Oximetry 95 97 Oxygen Delivery Mechanical Ventilation Fraction of Inspired Oxygen 30 04/17/24 04:00 04/17/24 04:00 04/17/24 04:00 Temperature Pulse Rate 91 Respiratory Rate Blood Pressure Pulse Oximetry 94 Oxygen Delivery Mechanical Ventilation Fraction of Inspired Oxygen 30 30 04/17/24 04:00 04/17/24 05:07 04/17/24 06:00 Temperature 37.2 C Pulse Rate 89 92 92 Respiratory Rate 21 H Blood Pressure 128/90 Pulse Oximetry 93 93 Oxygen Delivery Mechanical Ventilation Fraction of Inspired Oxygen 30 04/17/24 06:00 04/17/24 08:00 04/17/24 08:00 Temperature 37.2 C 37.1 C Pulse Rate 88 91 Respiratory Rate 15 17 Blood Pressure 133/82 135/94 H Pulse Oximetry 95 95 Oxygen Delivery Fraction of Inspired Oxygen 30 04/17/24 08:00 04/17/24 08:29 04/17/24 08:29 Temperature Pulse Rate 97 97 96 Respiratory Rate Blood Pressure Pulse Oximetry Oxygen Delivery Fraction of Inspired Oxygen Intake/Output Intake/Output: Intake & Output 04/14/24 04/15/24 04/16/24 04/17/24 23:59 23:59 23:59 23:59 Intake Total 1238 1300 1202 730 Output Total 750 2907 475 700 Balance 488 -6990 727 30 Meds/Results Medications: Active Medications Generic Name Dose Route Start Last Admin Trade Name Freq PRN Reason Stop Dose Admin Acetaminophen 650 mg 03/27/24 14:41 04/15/24 15:26 Acetaminophen 325 Mg Tablet PO 650 mg Q4H PRN Administration Mild Pain (1-3) or Fever Alteplase, Recombinant 2 mg 04/06/24 03:11 04/06/24 03:22 Alteplase 2 Mg Vial (Cathflo) IV PUSH 2 mg ONCE PRN Administration Line Occlusion Amiodarone HCl 400 mg 04/01/24 10:40 04/17/24 08:29 Amiodarone Hcl 200 Mg Tablet PO 400 mg DAILY LAVERNE Administration Apixaban 5 mg 04/13/24 21:00 04/17/24 08:29 Apixaban 5 Mg Tablet PO 5 mg Q12HR LAVERNE Administration Bisacodyl 10 mg 04/10/24 02:20 04/17/24 08:34 Bisacodyl 10 Mg Suppository RECTAL 10 mg QAM PRN Administration Constipation Cyanocobalamin 1,000 mcg 03/27/24 17:00 04/17/24 08:30 Cyanocobalamin 1,000 Mcg Tablet PO 1,000 mcg BID LAVERNE Administration Dextrose 12.5 gm 03/27/24 08:57 Dextrose 50% 25 Gm/50 Ml Syringe IV PUSH PRN PRN Hypoglycemia Protocol Docosanol 1 applic 04/09/24 09:00 04/17/24 08:30 Docosanol 10% Cream 2 Gm TOPICAL 1 applic 5 TIMES DAILY LAVERNE Administration Glucagon 1 mg 03/27/24 08:57 Glucagon For Inj 1 Mg Vial IM PRN PRN Hypoglycemia Protocol Glucose 15 gm 03/27/24 08:57 Glucose Oral Gel 15 Gm Of Glucse In 37.5 Gm Tube PO PRN PRN Hypoglycemia Protocol Dextrose 1,000 mls @ 100 mls/hr 03/27/24 08:57 Dextrose 5% 1,000 Ml IVPB PRN PRN Hypoglycemia Protocol Albumin Human 50 mls @ 999 mls/hr 04/03/24 09:19 04/07/24 15:05 Albutein IVPB 05/03/24 09:18 100 mls/hr Q10M PRN Administration HYPOTENSION Cefepime HCl 2 gm in 50 mls @ 100 mls/hr 04/16/24 11:57 Maxipime 2 Gm/Ns 50 Ml IVPB PRN PRN AFTER DIALYSIS Insulin Aspart 4 - 8 units 03/29/24 13:00 04/17/24 08:28 Insulin Aspart (*Bkc) 100 Units/Ml SUB-Q 4 units Q4HR LAVERNE Administration Protocol Metoprolol Tartrate 5 mg 04/12/24 00:00 04/12/24 06:14 Metoprolol Tartrate Inj 5 Mg/5 Ml Vial IV PUSH Not Given Q6HR LAVERNE Metoprolol Tartrate 50 mg 04/14/24 09:00 04/17/24 08:29 Metoprolol Tartrate 50 Mg Tab PO 50 mg Q12HR LAVERNE Administration Midazolam HCl 2 mg 04/11/24 16:46 04/14/24 05:28 Midazolam Hcl (*Crx) 2 Mg/2 Ml Vial IV PUSH 2 mg Q2H PRN Administration Ventilator Asynchrony Multi-Ingred Cream/Lotion/Oil/Oint 1 applic 03/28/24 21:00 04/16/24 20:31 Mineral Oil/White Petrolatum Ointment EACH EYE Not Given Q12HR LAVERNE Pantoprazole Sodium 40 mg 03/29/24 09:00 04/17/24 08:29 Pantoprazole Sodium Iv 40 Mg Vial IV PUSH 40 mg DAILY LAVERNE Administration Polyethylene Glycol 17 gm 04/12/24 07:50 04/17/24 08:29 Polyethylene Glycol 3350 17 Gm Powd.Pack PO 17 gm QAM PRN Administration Constipation Rosuvastatin Calcium 20 mg 03/28/24 09:00 03/31/24 09:28 Rosuvastatin 20 Mg Tablet PO Not Given DAILY LAVERNE Senna/Docusate Sodium 1 tab 04/07/24 21:00 04/16/24 20:31 Senna/Docusate Sodium Tablet PO 1 tab HS LAVERNE Administration Sodium Chloride 10 ml 03/28/24 22:00 04/17/24 05:07 Central Line Flush IV PUSH 10 ml Q8HR LAVERNE Administration Sodium Chloride 10 ml 03/28/24 16:14 Central Line Flush IV PUSH PRN PRN with TPN bag changes Sodium Chloride 20 ml 03/28/24 16:14 Central Line Flush IV PUSH PRN PRN after blood draws Radiology Results: ITS Impressions Chest CTA 03/27/24 06:41 Impression: No evidence of pulmonary embolus, aortic dissection, or aortic aneurysm. Extensive right lower lobe pneumonia. Probable mildly prominent reactive lymphadenopathy the right axilla and subcarinal region. Head CT 03/28/24 22:59 IMPRESSION: 1. Normal brain. Abdomen X-Ray 03/29/24 08:59 IMPRESSION: 1. Lines and tubes in expected positions. 2. Diffuse bilateral lung disease, right greater than left, consistent with multifocal pneumonia. Renal Ultrasound 03/31/24 15:34 IMPRESSION: No hydronephrosis. Perinephric fluid collection adjacent to the left lower pole. Abdomen Ultrasound 03/31/24 15:39 IMPRESSION: Status post cholecystectomy. Pancreas poorly visualized. Otherwise normal abdominal ultrasound findings. Chest X-Ray 04/17/24 06:19 IMPRESSION: Small right-sided pleural effusion. Redemonstration of a left internal jugular tunneled hemodialysis catheter with its tip projecting over the right brachiocephalic vein for which readjustment into a large central vein is recommended prior to dialysis. Remaining support tubes are in good position. Labs Labs: Laboratory Results - last 24 hr 04/16/24 04/16/24 04/16/24 11:46 15:59 20:26 WBC RBC Hgb Hct MCV MCH MCHC RDW Plt Count MPV Immature Gran % (Auto) Neut % (Auto) Lymph % (Auto) [place] % (Auto) Eos % (Auto) Baso % (Auto) Lymph # (Auto) [place] # (Auto) Eos # (Auto) Baso # (Auto) Abs Immat Gran (auto) Absolute Neuts (auto) Absolute Nucleated RBC Nucleated RBC % Puncture Site ABG pH ABG pCO2 ABG pO2 ABG PO2/FiO2 Ratio ABG HCO3 ABG O2 Saturation ABG O2 Content ABG Base Excess A-a Gradient Oxyhemoglobin Carboxyhemoglobin Methemoglobin Reduced Hemoglobin Total Hemoglobin O2 Delivery Device O2 Liters/Min Minute Volume Vent Rate Vent Mode FiO2 Tidal Volume PEEP Peak Inspir Pressure Pressure Support Sodium Potassium Chloride Carbon Dioxide Anion Gap BUN Creatinine Estim Creat Clear Calc Estimated GFR Glucose POC Capillary Glucose 261 H 239 H 238 H Calcium Phosphorus Magnesium Total Bilirubin AST ALT Alkaline Phosphatase Total Protein Albumin 04/16/24 04/17/24 04/17/24 23:58 04:58 05:07 WBC RBC Hgb Hct MCV MCH MCHC RDW Plt Count MPV Immature Gran % (Auto) Neut % (Auto) Lymph % (Auto) [place] % (Auto) Eos % (Auto) Baso % (Auto) Lymph # (Auto) [place] # (Auto) Eos # (Auto) Baso # (Auto) Abs Immat Gran (auto) Absolute Neuts (auto) Absolute Nucleated RBC Nucleated RBC % Puncture Site Right radial ABG pH 7.549 H* ABG pCO2 30.2 L ABG pO2 60.5 L ABG PO2/FiO2 Ratio 2.02 ABG HCO3 25.8 ABG O2 Saturation 94.2 L ABG O2 Content 13.3 L ABG Base Excess 3.7 A-a Gradient 117.9 Oxyhemoglobin 92.7 Carboxyhemoglobin 0.0 Methemoglobin 0.3 Reduced Hemoglobin 7.0 H Total Hemoglobin 10.2 L O2 Delivery Device Ventilator O2 Liters/Min Not Reportable Minute Volume 6.2 Vent Rate Not Reportable Vent Mode Asv FiO2 30 Tidal Volume Not Reportable PEEP 5 Peak Inspir Pressure Not Reportable Pressure Support 40 Sodium Potassium Chloride Carbon Dioxide Anion Gap BUN Creatinine Estim Creat Clear Calc Estimated GFR Glucose POC Capillary Glucose 237 H 249 H Calcium Phosphorus Magnesium Total Bilirubin AST ALT Alkaline Phosphatase Total Protein Albumin 04/17/24 04/17/24 05:46 08:28 WBC 5.7 RBC 3.13 L Hgb 9.3 L Hct 30.1 L MCV 96.2 MCH 29.7 MCHC 30.9 L RDW 16.6 H Plt Count 197 MPV 9.0 Immature Gran % (Auto) 0.4 Neut % (Auto) 88.9 H Lymph % (Auto) 4.7 L [place] % (Auto) 5.1 Eos % (Auto) 0.7 Baso % (Auto) 0.2 Lymph # (Auto) 0.27 L [place] # (Auto) 0.3 Eos # (Auto) 0.0 Baso # (Auto) 0.0 Abs Immat Gran (auto) 0.02 Absolute Neuts (auto) 5.1 Absolute Nucleated RBC 0.000 Nucleated RBC % 0.0 Puncture Site ABG pH ABG pCO2 ABG pO2 ABG PO2/FiO2 Ratio ABG HCO3 ABG O2 Saturation ABG O2 Content ABG Base Excess A-a Gradient Oxyhemoglobin Carboxyhemoglobin Methemoglobin Reduced Hemoglobin Total Hemoglobin O2 Delivery Device O2 Liters/Min Minute Volume Vent Rate Vent Mode FiO2 Tidal Volume PEEP Peak Inspir Pressure Pressure Support Sodium 140 Potassium 3.6 Chloride 104 Carbon Dioxide 28 Anion Gap 8 BUN 58 H D Creatinine 1.86 H Estim Creat Clear Calc 40 Estimated GFR 27 L Glucose 254 H POC Capillary Glucose 234 H Calcium 8.4 Phosphorus 2.6 Magnesium 2.0 Total Bilirubin 0.7 AST 18 ALT 41 H Alkaline Phosphatase 105 Total Protein 6.0 L Albumin 2.7 L Quality VTE Prophylaxis VTE prophylaxis: pharmacologic ordered
[2024-04-17] MEDS: INSULIN GLARGINE (*BKC) 100 UNITS/ML 12 UNITS SUB-Q (10:59)
--- NOTE | 2024-04-17 11:01 | WPDINTPN ---
Progress Note: A&P Assessment and Plan (1) Acute hypoxic respiratory failure: Code(s): J96.01 - Acute respiratory failure with hypoxia Status: Acute Assessment and Plan: Acute hypoxic respiratory failure secondary to pneumonia and congestive heart failure Patient now emergently intubated 03/28 -03/28: Repeat PCR was positive RSV -continue isolation -chest x-ray and ABGs reviewed this morning -Currently PEEP to 10 and FiO2 down to 30% -patient will require additional fluid removal before considering weaning from mechanical ventilation -04/09: Started on Precedex infusion, Versed and fentanyl infusion were discontinued -status post stress dose steroids. -discussed with Nephrology, patient did have if improved urine output over the last 24 hours, and since she did not tolerate dialysis well, lean specialist recommended commended Bumex 2 mg IV x1. If she does not respond well, will have to dialyze the patient 04/06: Patient did respond to Bumex that was given yesterday with 1900 mL urine output in the last 24 hours 04/07: A new dialysis catheter has been placed in the left IJ, currently functioning well. Have discussed with Nephrology to continue to remove fluid 04/08: Patient was dialyzed yesterday with 1000 mL in fluid removal, urine output has been adequate, I have asked the bedside RN to turn of the sedation, patient remains somnolent, will place patient on ASV, start Precedex infusion since she is getting tachycardic and hypertensive. Once she is more awake will place her on SBT and evaluate for extubation -04/09: Patient getting dialyzed today. Received Bumex last night with good urine output. Chest x-ray shows worsening airspace opacity right mid and lower lung zones. Worsened small right pleural effusion. FiO2 requirements have increased to 60% from 35%. Place patient on pressure support ventilation, 02/06, low tidal volumes, tachypnea, tachycardia, had to be placed back on CMV mode Discussed with and daughter and updated them with patient's condition, intubated for almost 2 weeks, they agreeable with tracheostomy, as scheduled and with ENT for 04/11/2024. -GI has been consulted for PEG tube placement 04/10: Tried to place patient again on pressure support ventilation 02/06, was not getting adequate tidal volumes, was also tachypneic. Also tried ASV, her respiratory rate was too low. I have asked the bedside RN to come down on her Precedex 04/11: Status post tracheostomy 04/12: PEG tube scheduled for today, Placed patient on ASV mode of ventilation, will switch to pressure support after PEG tube placement 04/13: Patient getting dialysis, after which will switch to ASV mode of ventilation or pressure support ventilation 04/14: Increased secretions around the tracheostomy incision site, sent for culture. Currently afebrile, normal WBC count, will hold antibiotic. Place him this placed on ASV mode of ventilation and tolerating well, almost all of her breaths are spontaneous 04/15: Patient tolerated ASV mode of ventilation all day yesterday and through the night. Will continue on ASV mode she is breathing spontaneously. 04/16: Cultures around the tracheostomy side from 04/14: Growing Pseudomonas, sensitivities pending. STARTED PATIENT ON CEFEPIME 04/16, 04/17: Patient has been tolerating ASV mode of ventilation since 04/15/2024. Placed patient on pressure support ventilation 10 off 5 this morning and tolerating well 03/27 CTA chest Impression: No evidence of pulmonary embolus, aortic dissection, or aortic aneurysm. Extensive right lower lobe pneumonia. Probable mildly prominent reactive lymphadenopathy the right axilla and subcarinal region. (2) Sepsis: Code(s): A41.9 - Sepsis, unspecified organism Status: Acute Assessment and Plan: RESOLVED Sepsis/septic shock secondary to community-acquired pneumonia, initial procalcitonin level 4.4 Blood cultures ordered and negative till now Sputum cultures negative Urine Legionella and pneumococcal antigen negative Status post cefepime and azithromycin MRSA screen negative. Vancomycin discontinued (3) Diabetes: Code(s): E11.9 - Type 2 diabetes mellitus without complications Status: Chronic Assessment and Plan: Status post insulin infusion Off Lantus -continue Accu-Cheks and sliding scale insulin -tube feeds restarted after PEG tube placement on 02/10/2025, tolerating -04/18: Add Lantus (4) Atrial fibrillation with RVR: Code(s): I48.91 - Unspecified atrial fibrillation Status: Acute Assessment and Plan: Patient was amiodarone infusion which has been switched to p.o. amiodarone per tube metoprolol by Cardiology Patient is anticoagulated with Eliquis, -continue metoprolol and amiodarone per tube, remains in AFib but rate controlled, HR 70-80s Echo Summary 1. Very technically difficult study with limited views. 2. Left ventricular chamber dimension is normal. 3. Left ventricular systolic function is at lower limits of normal, estimated at 50-55%. 4. Left atrial chamber dimension is moderately enlarged (5) Community acquired pneumonia: Code(s): J18.9 - Pneumonia, unspecified organism Status: Acute Assessment and Plan: See above (6) Altered mental status: Code(s): R41.82 - Altered mental status, unspecified Status: Acute Assessment and Plan: RESOLVED Likely secondary to hypoxia. Patient had CT scan of the head recently done which was unremarkable Repeat head CT on 03/28 was again unremarkable Ammonia levels within normal limit TSH was normal -patient continues to open her eyes and follows simple commands (7) Electrolyte abnormality: Code(s): E87.8 - Other disorders of electrolyte and fluid balance, not elsewhere classified Status: Acute Assessment and Plan: Patient on intermittent dialysis (8) Shock: Code(s): R57.9 - Shock, unspecified Status: Acute Assessment and Plan: RESOLVED Patient was on Levophed and vasopressin infusion which are currently off -off stress dose steroid - status post 25% albumin -Hold further crystalloids (9) VINCENT (acute kidney injury): Code(s): N17.9 - Acute kidney failure, unspecified Status: Acute Assessment and Plan: Increase in creatinine and drop in urine output likely secondary to shock Patient received IV fluids and 5% albumin earlier in the course. norm CK level Renal ultrasound showed No hydronephrosis. Perinephric fluid collection adjacent to the left lower pole. Nephrology following Continued maintain mean arterial pressure with vasopressors if needed 2/ Discussed with lean specialist and patient's family. Discussed risks and benefits of starting hemodialysis. Hoist Worker and patient's family in agreement. Patient's consented to proceed. Temporary dialysis catheter placed. Patient was dialyzed. Further dialysis per as per Nephrology -04/04: Patient did not tolerate dialysis as she became tachypneic, tachycardic and hypotensive requiring restarting Levophed. -04/05: Hoist Worker recommended giving Bumex 2 mg IV x1 since patient had slightly improved urine output over the last 24 hours and a creatinine and BUN trending downward, - will monitor urine output, renal function and electrolytes 04/06: Discuss with Nephrology, patient received dialysis today with no removal of fluid 04/07: New left IJ dialysis catheter was inserted today, currently functioning well. Right IJ dialysis catheter was removed -dialysis per Nephrology 04/13: Status post tunneled dialysis catheter placement by surgery (10) Elevated liver enzymes: Code(s): R74.8 - Abnormal levels of other serum enzymes Status: Acute Assessment and Plan: Patient is status post cholecystectomy Elevated AST ALT and alkaline phosphatase likely secondary to shock liver Hold statin Right upper quadrant ultrasound - Status post cholecystectomy. Pancreas poorly visualized. Otherwise normal abdominal ultrasound findings. While hepatitis panel was negative Levels were increasing I have discussed with Cardiology regarding potential amiodarone related hepatotoxicity. Patient was on IV amiodarone earlier for rate control as patient was in AFib with RVR. It was switched to p.o. as the rate improved. 04/03 amiodarone was held GI consult and following LFTs have been improving, continue to monitor Plan DVT prophylaxis -continue Eliquis Stress ulcer prophylaxis -protonix Nutrition -tolerating tube feeds Code Status - Full Code Total Critical Care Time - 31 minutes Discussed patient's daughter and has been and updated her with patient's condition and plan of care. They are aware that Care coordination is working on LTAC placement. I answered all their questions Due to a high probability of clinically significant, life threatening deterioration, the patient required my highest level of preparedness to intervene emergently and I personally spent this critical care time directly and personally managing the patient. This critical care time included obtaining a history; examining the patient; pulse oximetry; ordering and review of studies; arranging urgent treatment with development of a management plan; evaluation of patient's response to treatment; frequent reassessment; and discussions with other providers. It was exclusive of separately billable procedures and treating other patients and teaching time. Please see Assessment and Plan section and the rest of the note for further information on patient assessment and treatment This dictation may have been done utilizing a voice recognition system. Attempts have been made to correct errors. However, there may be uncorrected grammatical, spelling, and recognitions errors present. Subjective Date/time seen: 04/17/24 11:01 Interval history: 68yo female with AFib s/p SHAYY cardioversion that was unsuccessful, KAREN not using CPAP, DM, HTN and endometrial cancer who presents with shortness of breath, leg swelling and weight gain over the past few weeks. Now in with respiratory failure secondary to pneumonia with septic shock. Intubated and on mechanical ventilation. RSV positive, acute kidney injury status post dialysis catheter and dialysis 04/07: A new Left IJ dialysis catheter was inserted 04/11: Status post tracheostomy by ENT 04/12: PEG tube placed by GI 04/13: Tunnel dialysis catheter placement by surgery 04/17/2024: Patient seen and examined in the ICU, has a tracheostomy in place, on ASV mode of ventilation since 04/14/2024. Is awake, alert, follows simple commands in all extremities. Continues to have drainage around the tracheostomy tube, on cefepime since cultures were growing Pseudomonas. Patient is afebrile, hemodynamically stable, remains in AFib, rate controlled, continues to have urine output. Review of Systems Review of Systems: ROS unobtainable: Yes unobtainable due to endotracheal tube, unobtainable due to medical condition and unobtainable due to mental status Exam Narrative: General: Off all sedation, in no acute distress Lungs/Chest: Coarse breath sounds bilaterally, no wheezing, decreased air entry at bases Rt > Lt, tracheostomy in place with samaniego-colored drainage around the tracheostomy site Cardiac: Irregularly irregular, rate controlled Circulation: Pedal pulses are intact and symmetrical. Abdomen: Normoactive bowel sounds bowel sounds. Morbidly Obese. Soft. NT. ND. PEG tube in place Extremities: No clubbing, cyanosis, bilateral upper and lower extremity edema improving : Can in place Neurologic: Status post tracheostomy, no sedated, opens her eyes, follows simple command in all extremities, pupils equal and reactive to light Objective Data Vital Signs Vital Signs: Vital Signs - 24 hr 04/16/24 11:46 04/16/24 12:00 04/16/24 12:00 Temperature 98.8 F Pulse Rate 86 79 Respiratory Rate 18 Blood Pressure 114/80 Pulse Oximetry 97 97 Oxygen Delivery Mechanical Ventilation Fraction of Inspired Oxygen 30 04/16/24 12:00 04/16/24 12:00 04/16/24 14:00 Temperature Pulse Rate 78 88 Respiratory Rate Blood Pressure Pulse Oximetry 97 Oxygen Delivery Mechanical Ventilation Fraction of Inspired Oxygen 30 04/16/24 14:00 04/16/24 14:05 04/16/24 16:00 Temperature 98.8 F 98.6 F Pulse Rate 95 90 84 Respiratory Rate 17 18 Blood Pressure 119/79 114/85 Pulse Oximetry 95 97 97 Oxygen Delivery Mechanical Ventilation Fraction of Inspired Oxygen 30 04/16/24 16:00 04/16/24 16:00 04/16/24 16:00 Temperature Pulse Rate 104 H Respiratory Rate Blood Pressure Pulse Oximetry 97 Oxygen Delivery Mechanical Ventilation Fraction of Inspired Oxygen 30 30 04/16/24 17:17 04/16/24 18:00 04/16/24 18:00 Temperature 99.1 F Pulse Rate 80 85 72 Respiratory Rate 17 Blood Pressure 115/70 Pulse Oximetry 97 97 Oxygen Delivery Mechanical Ventilation Fraction of Inspired Oxygen 30 04/16/24 19:51 04/16/24 20:00 04/16/24 20:00 Temperature Pulse Rate 82 Respiratory Rate Blood Pressure Pulse Oximetry 99 99 Oxygen Delivery Mechanical Ventilation Mechanical Ventilation Fraction of Inspired Oxygen 30 30 30 04/16/24 20:00 04/16/24 20:00 04/16/24 20:31 Temperature 99.1 F Pulse Rate 80 86 87 Respiratory Rate 11 L Blood Pressure 116/82 Pulse Oximetry 100 Oxygen Delivery Fraction of Inspired Oxygen 04/16/24 22:00 04/16/24 22:00 04/16/24 23:38 Temperature 98.8 F Pulse Rate 77 77 91 Respiratory Rate 13 Blood Pressure 113/76 Pulse Oximetry 97 100 Oxygen Delivery Mechanical Ventilation Fraction of Inspired Oxygen 30 04/17/24 00:00 04/17/24 00:00 04/17/24 00:00 Temperature 99.0 F Pulse Rate 79 Respiratory Rate 18 Blood Pressure 119/79 Pulse Oximetry 94 94 Oxygen Delivery Mechanical Ventilation Fraction of Inspired Oxygen 30 30 04/17/24 00:00 04/17/24 01:51 04/17/24 01:52 Temperature 99.0 F Pulse Rate 82 83 88 Respiratory Rate 16 Blood Pressure 129/69 Pulse Oximetry 95 Oxygen Delivery Fraction of Inspired Oxygen 04/17/24 03:00 04/17/24 04:00 04/17/24 04:00 Temperature Pulse Rate 88 Respiratory Rate Blood Pressure Pulse Oximetry 97 94 Oxygen Delivery Mechanical Ventilation Mechanical Ventilation Fraction of Inspired Oxygen 30 30 30 04/17/24 04:00 04/17/24 04:00 04/17/24 05:07 Temperature 98.9 F Pulse Rate 91 89 92 Respiratory Rate 21 H Blood Pressure 128/90 Pulse Oximetry 93 93 Oxygen Delivery Mechanical Ventilation Fraction of Inspired Oxygen 30 04/17/24 06:00 04/17/24 06:00 04/17/24 08:00 Temperature 98.9 F 98.8 F Pulse Rate 92 88 91 Respiratory Rate 15 17 Blood Pressure 133/82 135/94 H Pulse Oximetry 95 95 Oxygen Delivery Fraction of Inspired Oxygen 04/17/24 08:00 04/17/24 08:00 04/17/24 08:00 Temperature Pulse Rate 97 Respiratory Rate Blood Pressure Pulse Oximetry 92 Oxygen Delivery Mechanical Ventilation Fraction of Inspired Oxygen 30 30 04/17/24 08:26 04/17/24 08:29 04/17/24 08:29 Temperature Pulse Rate 97 96 Respiratory Rate Blood Pressure Pulse Oximetry Oxygen Delivery Fraction of Inspired Oxygen 30 04/17/24 09:58 04/17/24 10:00 04/17/24 10:00 Temperature 99.3 F Pulse Rate 85 83 79 Respiratory Rate 18 Blood Pressure 129/97 H Pulse Oximetry 96 92 Oxygen Delivery Mechanical Ventilation Fraction of Inspired Oxygen 30 Intake/Output Intake/Output: Intake & Output 04/14/24 04/15/24 04/16/24 04/17/24 23:59 23:59 23:59 23:59 Intake Total 1238 1300 1202 730 Output Total 750 3167 475 700 Balance 488 -7262 727 30 Meds/Results Medications: Active Medications Generic Name Dose Route Start Last Admin Trade Name Freq PRN Reason Stop Dose Admin Acetaminophen 650 mg 03/27/24 14:41 04/15/24 15:26 Acetaminophen 325 Mg Tablet PO 650 mg Q4H PRN Administration Mild Pain (1-3) or Fever Alteplase, Recombinant 2 mg 04/06/24 03:11 04/06/24 03:22 Alteplase 2 Mg Vial (Cathflo) IV PUSH 2 mg ONCE PRN Administration Line Occlusion Amiodarone HCl 400 mg 04/01/24 10:40 04/17/24 08:29 Amiodarone Hcl 200 Mg Tablet PO 400 mg DAILY LAVERNE Administration Apixaban 5 mg 04/13/24 21:00 04/17/24 08:29 Apixaban 5 Mg Tablet PO 5 mg Q12HR LAVERNE Administration Bisacodyl 10 mg 04/10/24 02:20 04/17/24 08:34 Bisacodyl 10 Mg Suppository RECTAL 10 mg QAM PRN Administration Constipation Cyanocobalamin 1,000 mcg 03/27/24 17:00 04/17/24 08:30 Cyanocobalamin 1,000 Mcg Tablet PO 1,000 mcg BID LAVERNE Administration Dextrose 12.5 gm 03/27/24 08:57 Dextrose 50% 25 Gm/50 Ml Syringe IV PUSH PRN PRN Hypoglycemia Protocol Docosanol 1 applic 04/09/24 09:00 04/17/24 11:00 Docosanol 10% Cream 2 Gm TOPICAL 1 applic 5 TIMES DAILY LAVERNE Administration Glucagon 1 mg 03/27/24 08:57 Glucagon For Inj 1 Mg Vial IM PRN PRN Hypoglycemia Protocol Glucose 15 gm 03/27/24 08:57 Glucose Oral Gel 15 Gm Of Glucse In 37.5 Gm Tube PO PRN PRN Hypoglycemia Protocol Dextrose 1,000 mls @ 100 mls/hr 03/27/24 08:57 Dextrose 5% 1,000 Ml IVPB PRN PRN Hypoglycemia Protocol Albumin Human 50 mls @ 999 mls/hr 04/03/24 09:19 04/07/24 15:05 Albutein IVPB 05/03/24 09:18 100 mls/hr Q10M PRN Administration HYPOTENSION Cefepime HCl 2 gm in 50 mls @ 100 mls/hr 04/16/24 11:57 Maxipime 2 Gm/Ns 50 Ml IVPB PRN PRN AFTER DIALYSIS Insulin Aspart 4 - 8 units 03/29/24 13:00 04/17/24 08:28 Insulin Aspart (*Bkc) 100 Units/Ml SUB-Q 4 units Q4HR LAVERNE Administration Protocol Insulin Glargine 12 units 04/17/24 10:40 04/17/24 10:59 Insulin Glargine (*Bkc) 100 Units/Ml SUB-Q 12 units DAILY LAVERNE Administration Metoprolol Tartrate 5 mg 04/12/24 00:00 04/12/24 06:14 Metoprolol Tartrate Inj 5 Mg/5 Ml Vial IV PUSH Not Given Q6HR LAVERNE Metoprolol Tartrate 50 mg 04/14/24 09:00 04/17/24 08:29 Metoprolol Tartrate 50 Mg Tab PO 50 mg Q12HR LAVERNE Administration Midazolam HCl 2 mg 04/11/24 16:46 04/14/24 05:28 Midazolam Hcl (*Crx) 2 Mg/2 Ml Vial IV PUSH 2 mg Q2H PRN Administration Ventilator Asynchrony Multi-Ingred Cream/Lotion/Oil/Oint 1 applic 03/28/24 21:00 04/17/24 09:00 Mineral Oil/White Petrolatum Ointment EACH EYE 1 applic Q12HR LAVERNE Administration Pantoprazole Sodium 40 mg 03/29/24 09:00 04/17/24 08:29 Pantoprazole Sodium Iv 40 Mg Vial IV PUSH 40 mg DAILY LAVERNE Administration Polyethylene Glycol 17 gm 04/12/24 07:50 04/17/24 08:29 Polyethylene Glycol 3350 17 Gm Powd.Pack PO 17 gm QAM PRN Administration Constipation Rosuvastatin Calcium 20 mg 03/28/24 09:00 03/31/24 09:28 Rosuvastatin 20 Mg Tablet PO Not Given DAILY LAVERNE Senna/Docusate Sodium 1 tab 04/07/24 21:00 04/16/24 20:31 Senna/Docusate Sodium Tablet PO 1 tab HS LAVERNE Administration Sodium Chloride 10 ml 03/28/24 22:00 04/17/24 05:07 Central Line Flush IV PUSH 10 ml Q8HR LAVERNE Administration Sodium Chloride 10 ml 03/28/24 16:14 Central Line Flush IV PUSH PRN PRN with TPN bag changes Sodium Chloride 20 ml 03/28/24 16:14 Central Line Flush IV PUSH PRN PRN after blood draws Radiology Results: ITS Impressions Chest CTA 03/27/24 06:41 Impression: No evidence of pulmonary embolus, aortic dissection, or aortic aneurysm. Extensive right lower lobe pneumonia. Probable mildly prominent reactive lymphadenopathy the right axilla and subcarinal region. Head CT 03/28/24 22:59 IMPRESSION: 1. Normal brain. Abdomen X-Ray 03/29/24 08:59 IMPRESSION: 1. Lines and tubes in expected positions. 2. Diffuse bilateral lung disease, right greater than left, consistent with multifocal pneumonia. Renal Ultrasound 03/31/24 15:34 IMPRESSION: No hydronephrosis. Perinephric fluid collection adjacent to the left lower pole. Abdomen Ultrasound 03/31/24 15:39 IMPRESSION: Status post cholecystectomy. Pancreas poorly visualized. Otherwise normal abdominal ultrasound findings. Chest X-Ray 04/17/24 06:19 IMPRESSION: Small right-sided pleural effusion. Redemonstration of a left internal jugular tunneled hemodialysis catheter with its tip projecting over the right brachiocephalic vein for which readjustment into a large central vein is recommended prior to dialysis. Remaining support tubes are in good position. Labs Labs: Laboratory Results - last 24 hr 04/16/24 04/16/24 04/16/24 11:46 15:59 20:26 WBC RBC Hgb Hct MCV MCH MCHC RDW Plt Count MPV Immature Gran % (Auto) Neut % (Auto) Lymph % (Auto) [place] % (Auto) Eos % (Auto) Baso % (Auto) Lymph # (Auto) [place] # (Auto) Eos # (Auto) Baso # (Auto) Abs Immat Gran (auto) Absolute Neuts (auto) Absolute Nucleated RBC Nucleated RBC % Puncture Site ABG pH ABG pCO2 ABG pO2 ABG PO2/FiO2 Ratio ABG HCO3 ABG O2 Saturation ABG O2 Content ABG Base Excess A-a Gradient Oxyhemoglobin Carboxyhemoglobin Methemoglobin Reduced Hemoglobin Total Hemoglobin O2 Delivery Device O2 Liters/Min Minute Volume Vent Rate Vent Mode FiO2 Tidal Volume PEEP Peak Inspir Pressure Pressure Support Sodium Potassium Chloride Carbon Dioxide Anion Gap BUN Creatinine Estim Creat Clear Calc Estimated GFR Glucose POC Capillary Glucose 261 H 239 H 238 H Calcium Phosphorus Magnesium Total Bilirubin AST ALT Alkaline Phosphatase Total Protein Albumin 04/16/24 04/17/24 04/17/24 23:58 04:58 05:07 WBC RBC Hgb Hct MCV MCH MCHC RDW Plt Count MPV Immature Gran % (Auto) Neut % (Auto) Lymph % (Auto) [place] % (Auto) Eos % (Auto) Baso % (Auto) Lymph # (Auto) [place] # (Auto) Eos # (Auto) Baso # (Auto) Abs Immat Gran (auto) Absolute Neuts (auto) Absolute Nucleated RBC Nucleated RBC % Puncture Site Right radial ABG pH 7.549 H* ABG pCO2 30.2 L ABG pO2 60.5 L ABG PO2/FiO2 Ratio 2.02 ABG HCO3 25.8 ABG O2 Saturation 94.2 L ABG O2 Content 13.3 L ABG Base Excess 3.7 A-a Gradient 117.9 Oxyhemoglobin 92.7 Carboxyhemoglobin 0.0 Methemoglobin 0.3 Reduced Hemoglobin 7.0 H Total Hemoglobin 10.2 L O2 Delivery Device Ventilator O2 Liters/Min Not Reportable Minute Volume 6.2 Vent Rate Not Reportable Vent Mode Asv FiO2 30 Tidal Volume Not Reportable PEEP 5 Peak Inspir Pressure Not Reportable Pressure Support 40 Sodium Potassium Chloride Carbon Dioxide Anion Gap BUN Creatinine Estim Creat Clear Calc Estimated GFR Glucose POC Capillary Glucose 237 H 249 H Calcium Phosphorus Magnesium Total Bilirubin AST ALT Alkaline Phosphatase Total Protein Albumin 04/17/24 04/17/24 05:46 08:28 WBC 5.7 RBC 3.13 L Hgb 9.3 L Hct 30.1 L MCV 96.2 MCH 29.7 MCHC 30.9 L RDW 16.6 H Plt Count 197 MPV 9.0 Immature Gran % (Auto) 0.4 Neut % (Auto) 88.9 H Lymph % (Auto) 4.7 L [place] % (Auto) 5.1 Eos % (Auto) 0.7 Baso % (Auto) 0.2 Lymph # (Auto) 0.27 L [place] # (Auto) 0.3 Eos # (Auto) 0.0 Baso # (Auto) 0.0 Abs Immat Gran (auto) 0.02 Absolute Neuts (auto) 5.1 Absolute Nucleated RBC 0.000 Nucleated RBC % 0.0 Puncture Site ABG pH ABG pCO2 ABG pO2 ABG PO2/FiO2 Ratio ABG HCO3 ABG O2 Saturation ABG O2 Content ABG Base Excess A-a Gradient Oxyhemoglobin Carboxyhemoglobin Methemoglobin Reduced Hemoglobin Total Hemoglobin O2 Delivery Device O2 Liters/Min Minute Volume Vent Rate Vent Mode FiO2 Tidal Volume PEEP Peak Inspir Pressure Pressure Support Sodium 140 Potassium 3.6 Chloride 104 Carbon Dioxide 28 Anion Gap 8 BUN 58 H D Creatinine 1.86 H Estim Creat Clear Calc 40 Estimated GFR 27 L Glucose 254 H POC Capillary Glucose 234 H Calcium 8.4 Phosphorus 2.6 Magnesium 2.0 Total Bilirubin 0.7 AST 18 ALT 41 H Alkaline Phosphatase 105 Total Protein 6.0 L Albumin 2.7 L Quality VTE Prophylaxis VTE prophylaxis: pharmacologic ordered
[2024-04-17 12:49] LABS: Glucose Point of Care 220 mg/dl (65-105)
[2024-04-17 17:22] LABS: Glucose Point of Care 217 mg/dl (65-105)
[2024-04-17] MEDS: SENNA/DOCUSATE SODIUM TABLET 1 TAB PO (20:57)
[2024-04-17 21:30] LABS: Glucose Point of Care 244 mg/dl (65-105)
[2024-04-18] VITALS (33 sets, daily range): BP systolic 105–139; BP diastolic 65–92; PULSE 72–100; RESP 12–28; TEMP 36.9–37.6; O2SAT 93–98
[2024-04-18] MEDS: INSULIN ASPART (*BKC) 100 UNITS/ML SUB-Q ×4 (00:23→12:04)
[2024-04-18 00:40] LABS: Glucose Point of Care 242 mg/dl (65-105)
[2024-04-18 04:50] LABS: Basophils Percent Auto 0.2 % (0.2-1.2); Eosinophils Absolute Auto 0.1 K/mm3 (0-0.3); Eosinophils Percent Auto 0.9 % (0-4.4); Hematocrit 29.3 % (37.0-47.0); Hemoglobin 9.3 g/dL (12.0-15.0); Immature Granulocyte Absolute 0.05 K/mm3 (0.00-0.031); Immature Granulocyte Percent A 0.9 % (0-0.5); Lymphocytes Absolute Auto 0.29 K/mm3 (0.9-3.2); Lymphocytes Percent Auto 5.2 % (18.3-44.2); Mean Corpuscular HGB Conc 31.7 g/dl (32-36); Mean Corpuscular Hemoglobin 30.3 pg (26-34); Mean Corpuscular Volume 95.4 fl (80-100); Mean Platelet Volume 9.3 fl (7.4-10.4); Monocytes Absolute Auto 0.3 K/mm3 (0.1-0.6); Monocytes Percent Auto 5.9 % (2.6-8.5); Neutrophils Absolute Auto 4.9 K/mm3 (1.3-6.7); Neutrophils Percent Auto 86.9 % (45.5-73.1); Platelet Count Result 194 k/mm3 (150-375); Red Blood Count 3.07 M/mm3 (4.2-5.4); Red Cell Distribution Width 16.9 % (11.5-14.5); White Blood Count 5.6 K/mm3 (4.5-10.0)
[2024-04-18] MEDS: CENTRAL LINE FLUSH 10 ML IV PUSH ×2 (04:56→12:05)
[2024-04-18 05:02] LABS: Glucose Point of Care 271 mg/dl (65-105)
[2024-04-18 05:03] LABS: Alanine Aminotransferase 36 U/L (6-35); Albumin Level 2.6 g/dL (3.5-5.1); Alkaline Phosphatase 100 U/L (38-126); Anion Gap 7 mmol/L (4-12); Aspartate Amino Transferase 16 U/L (14-36); Bilirubin,Total 0.7 mg/dL (0.2-1.3); Blood Urea Nitrogen 72 mg/dL (7-17); Calcium 8.6 mg/dL (8.4-10.2); Carbon Dioxide 28 mmol/L (22-30); Chloride 104 mmol/L (98-107); Estimated CRCL calculation 39 ml/min; Estimated Glomerular Filt Rate 26; Glucose 257 mg/dL (65-110); Magnesium 2.2 mg/dL (1.6-2.3); Phosphorus 3.1 mg/dL (2.5-4.5); Potassium 3.4 mmol/L (3.4-5.0); Sodium 139 mmol/L (137-145)
[2024-04-18 05:38] LABS: Alveolar/Arterial O2 Gradient 100.2 mmHg; Base Excess ABG 0.5 mEq/l (+/-2.0); Carboxyhemoglobin 0.6 % THb (0-2.0); Fractional Inspired Oxygen 30 %; HCO3 ABG 23.2 mEq/l (22.0-26.0); Methemoglobin ABG 0.3 %THb (0-1.5); Oxygen Content ABG 16.2 %vol (16.0-22.0); Oxygen Saturation ABG 96.4 % (95.0-100.0); Oxyhemoglobin 94.7 % THb (90.0-100.0); PCO2 ABG 31.1 mmHg (35.0-45.0); PO2 ABG 77.2 mmHg (80.0-100.0); PO2 FiO2 Ratio Arterial Blood 2.57 %; Reduced Hemoglobin 4.4 %THb (0-5.0); Total Hemoglobin 12.1 g/dL (12.0-18.0)
[2024-04-18 05:39] LABS: Modified Allen's Test Pass; Site Drawn RIGHT RADIAL
[2024-04-18 05:40] LABS: Arterial Blood Gas PEEP 5 cmH2O; Arterial Blood Gas Pressure Support 10 cmH2O; Arterial Blood Gas Vent Mode SPONTANEOUS; Device VENTILATOR
[2024-04-18 07:34] LABS: Glucose Point of Care 249 mg/dl (65-105)
[2024-04-18] MEDS: METOPROLOL TARTRATE 50 MG TAB PO (08:02)
[2024-04-18] MEDS: APIXABAN 5 MG TABLET PO (08:03)
[2024-04-18] MEDS: CYANOCOBALAMIN 1,000 MCG TABLET 1000 MCG PO ×2 (08:03→17:28)
[2024-04-18] MEDS: INSULIN GLARGINE (*BKC) 100 UNITS/ML 12 UNITS SUB-Q (08:03)
[2024-04-18] MEDS: AMIODARONE HCL 200 MG TABLET 400 MG PO (08:03)
[2024-04-18] MEDS: DOCOSANOL 10% CREAM 2 GM 1 APPLIC TOPICAL ×4 (08:03→19:13)
[2024-04-18] MEDS: PANTOPRAZOLE SODIUM IV 40 MG VIAL IV PUSH (08:04)
[2024-04-18 08:06] LABS: Glucose Point of Care 218 mg/dl (65-105)
[2024-04-18] MEDS: INSULIN GLARGINE (*BKC) 100 UNITS/ML 16 UNITS SUB-Q (09:54)
--- NOTE | 2024-04-18 11:39 | PCFNICU ---
ICU Rounding Note: Pt current nutrition is Nepro at 40 ml/hr with Prosource BID. Last recorded weight is 142.6 kg, down from 148.9 kg on admit. Bowel Motility: +BM reported 04/17 Labs Reviewed:Glu 257, BUN 72, Cr 1.92, Alb 2.6 Meds Noted:Lantus, NovoLog, Protonix Skin: WNL Additional Notes: Patient current with PEG/Trach. Tolerating tube feedings of Nepro at 40 ml/hr with 2 Prosource BID. Total Nutrition: 1744 kcal/112 gm protein/640 ml water. Flush 30 ml q 4 hours. Plans for Dialysis today. Awaiting bed availability for LTAC. Following daily in ICU rounds. Will monitor weight, labs, skin, diet orders, meds, tube feeding tolerance every Thursday and Thursday.
[2024-04-18 11:40] LABS: Glucose Point of Care 244 mg/dl (65-105)
--- NOTE | 2024-04-18 13:13 | P.PNINT_ITS ---
Progress Note: A&P Assessment and Plan (1) Acute hypoxic respiratory failure: Code(s): J96.01 - Acute respiratory failure with hypoxia Status: Acute Assessment and Plan: Acute hypoxic respiratory failure secondary to pneumonia and congestive heart failure Patient now emergently intubated 03/28 -03/28: Repeat PCR was positive RSV -continue isolation -chest x-ray and ABGs reviewed this morning -Currently PEEP to 10 and FiO2 down to 30% -patient will require additional fluid removal before considering weaning from mechanical ventilation -04/09: Started on Precedex infusion, Versed and fentanyl infusion were discontinued -status post stress dose steroids. -discussed with Nephrology, patient did have if improved urine output over the last 24 hours, and since she did not tolerate dialysis well, engagement specialist recommended commended Bumex 2 mg IV x1. If she does not respond well, will have to dialyze the patient 04/06: Patient did respond to Bumex that was given yesterday with 1900 mL urine output in the last 24 hours 04/07: A new dialysis catheter has been placed in the left IJ, currently functioning well. Have discussed with Nephrology to continue to remove fluid 04/08: Patient was dialyzed yesterday with 1000 mL in fluid removal, urine output has been adequate, I have asked the bedside RN to turn of the sedation, patient remains somnolent, will place patient on ASV, start Precedex infusion since she is getting tachycardic and hypertensive. Once she is more awake will place her on SBT and evaluate for extubation -04/09: Patient getting dialyzed today. Received Bumex last night with good urine output. Chest x-ray shows worsening airspace opacity right mid and lower lung zones. Worsened small right pleural effusion. FiO2 requirements have increased to 60% from 35%. Place patient on pressure support ventilation, 02/06, low tidal volumes, tachypnea, tachycardia, had to be placed back on CMV mode Discussed with and daughter and updated them with patient's condition, intubated for almost 2 weeks, they agreeable with tracheostomy, as scheduled and with ENT for 04/11/2024. -GI has been consulted for PEG tube placement 04/10: Tried to place patient again on pressure support ventilation 02/06, was not getting adequate tidal volumes, was also tachypneic. Also tried ASV, her respiratory rate was too low. I have asked the bedside RN to come down on her Precedex 04/11: Status post tracheostomy 04/12: PEG tube scheduled for today, Placed patient on ASV mode of ventilation, will switch to pressure support after PEG tube placement 04/13: Patient getting dialysis, after which will switch to ASV mode of ventilation or pressure support ventilation 04/14: Increased secretions around the tracheostomy incision site, sent for culture. Currently afebrile, normal WBC count, will hold antibiotic. Place him this placed on ASV mode of ventilation and tolerating well, almost all of her breaths are spontaneous 04/15: Patient tolerated ASV mode of ventilation all day yesterday and through the night. Will continue on ASV mode she is breathing spontaneously. 04/16: Cultures around the tracheostomy side from 04/14: Growing Pseudomonas, sensitivities pending. STARTED PATIENT ON CEFEPIME 04/16, 04/17: Patient has been tolerating ASV mode of ventilation since 04/15/2024. Placed patient on pressure support ventilation 10 off 5 this morning and tolerating well 04/18: Patient has been tolerating pressure support ventilation 10/5 all day yesterday, all night. Will continue pressure support ventilation 03/27 CTA chest Impression: No evidence of pulmonary embolus, aortic dissection, or aortic aneurysm. Extensive right lower lobe pneumonia. Probable mildly prominent reactive lymphadenopathy the right axilla and subcarinal region. (2) Sepsis: Code(s): A41.9 - Sepsis, unspecified organism Status: Acute Assessment and Plan: RESOLVED Sepsis/septic shock secondary to community-acquired pneumonia, initial procalcitonin level 4.4 Blood cultures ordered and negative till now Sputum cultures negative Urine Legionella and pneumococcal antigen negative Status post cefepime and azithromycin MRSA screen negative. Vancomycin discontinued (3) Diabetes: Code(s): E11.9 - Type 2 diabetes mellitus without complications Status: Chronic Assessment and Plan: Status post insulin infusion Off Lantus -continue Accu-Cheks and sliding scale insulin -tube feeds restarted after PEG tube placement on 02/10/2025, tolerating -04/18: Increase Lantus (4) Atrial fibrillation with RVR: Code(s): I48.91 - Unspecified atrial fibrillation Status: Acute Assessment and Plan: Patient was amiodarone infusion which has been switched to p.o. amiodarone per tube metoprolol by Cardiology Patient is anticoagulated with Eliquis, -continue metoprolol and amiodarone per tube, remains in AFib but rate controlled, HR 70-80s Echo Summary 1. Very technically difficult study with limited views. 2. Left ventricular chamber dimension is normal. 3. Left ventricular systolic function is at lower limits of normal, estimated at 50-55%. 4. Left atrial chamber dimension is moderately enlarged (5) Community acquired pneumonia: Code(s): J18.9 - Pneumonia, unspecified organism Status: Acute Assessment and Plan: Resolved (6) Altered mental status: Code(s): R41.82 - Altered mental status, unspecified Status: Acute Assessment and Plan: RESOLVED Likely secondary to hypoxia. Patient had CT scan of the head recently done which was unremarkable Repeat head CT on 03/28 was again unremarkable Ammonia levels within normal limit TSH was normal -patient continues to open her eyes and follows simple commands (7) Electrolyte abnormality: Code(s): E87.8 - Other disorders of electrolyte and fluid balance, not elsewhere classified Status: Acute Assessment and Plan: Patient on intermittent dialysis (8) Shock: Code(s): R57.9 - Shock, unspecified Status: Acute Assessment and Plan: RESOLVED Patient was on Levophed and vasopressin infusion which are currently off -off stress dose steroid - status post 25% albumin -Hold further crystalloids (9) VINCENT (acute kidney injury): Code(s): N17.9 - Acute kidney failure, unspecified Status: Acute Assessment and Plan: Increase in creatinine and drop in urine output likely secondary to shock Patient received IV fluids and 5% albumin earlier in the course. norm CK level Renal ultrasound showed No hydronephrosis. Perinephric fluid collection adjacent to the left lower pole. Nephrology following Continued maintain mean arterial pressure with vasopressors if needed 2/ Discussed with engagement specialist and patient's family. Discussed risks and benefits of starting hemodialysis. Construction Coordinator and patient's family in agreement. Patient's consented to proceed. Temporary dialysis catheter placed. Patient was dialyzed. Further dialysis per as per Nephrology -04/04: Patient did not tolerate dialysis as she became tachypneic, tachycardic and hypotensive requiring restarting Levophed. -04/05: Construction Coordinator recommended giving Bumex 2 mg IV x1 since patient had slightly improved urine output over the last 24 hours and a creatinine and BUN trending downward, - will monitor urine output, renal function and electrolytes 04/06: Discuss with Nephrology, patient received dialysis today with no removal of fluid 04/07: New left IJ dialysis catheter was inserted today, currently functioning well. Right IJ dialysis catheter was removed -dialysis per Nephrology 04/13: Status post tunneled dialysis catheter placement by surgery -dialysis per Nephrology (10) Elevated liver enzymes: Code(s): R74.8 - Abnormal levels of other serum enzymes Status: Acute Assessment and Plan: Patient is status post cholecystectomy Elevated AST ALT and alkaline phosphatase likely secondary to shock liver Hold statin Right upper quadrant ultrasound - Status post cholecystectomy. Pancreas poorly visualized. Otherwise normal abdominal ultrasound findings. While hepatitis panel was negative Levels were increasing I have discussed with Cardiology regarding potential amiodarone related hepatotoxicity. Patient was on IV amiodarone earlier for rate control as patient was in AFib with RVR. It was switched to p.o. as the rate improved. 04/03 amiodarone was held GI consult and following LFTs have been improving, continue to monitor Plan DVT prophylaxis -continue Eliquis Stress ulcer prophylaxis -protonix Nutrition -tolerating tube feeds 04/18: Patient had weakness and a left upper extremity, CT scan of the brain did not show any intracranial abnormality Code Status - Full Code Total Critical Care Time - 31 minutes Discussed patient's daughter and has been and updated her with patient's condition and plan of care. Patient likely will be transferring out to [facility] today, 04/18/2024. Accepting physician You Rees MD [phone] Due to a high probability of clinically significant, life threatening deterioration, the patient required my highest level of preparedness to interv mark emergently and I personally spent this critical care time directly and personally managing the patient. This critical care time included obtaining a history; examining the patient; pulse oximetry; ordering and review of studies; arranging urgent treatment with development of a management plan; evaluation of patient's response to treatment; frequent reassessment; and discussions with other providers. It was exclusive of separately billable procedures and treating other patients and teaching time. Please see Assessment and Plan section and the rest of the note for further information on patient assessment and treatment This dictation may have been done utilizing a voice recognition system. Attempts have been made to correct errors. However, there may be uncorrected grammatical, spelling, and recognitions errors present. Subjective Date/time seen: 04/18/24 13:13 Interval history: 68yo female with AFib s/p SHAYY cardioversion that was unsuccessful, KAREN not using CPAP, DM, HTN and endometrial cancer who presents with shortness of breath, leg swelling and weight gain over the past few weeks. Now in with respiratory failure secondary to pneumonia with septic shock. Intubated and on mechanical ventilation. RSV positive, acute kidney injury status post dialysis catheter and dialysis 04/07: A new Left IJ dialysis catheter was inserted 04/11: Status post tracheostomy by ENT 04/12: PEG tube placed by GI 04/13: Tunnel dialysis catheter placement by surgery 04/18/2024: Patient seen and examined the ICU, has a tracheostomy in place, has been on pressure support ventilation 12/04 all day yesterday and overnight. Patient is on no sedation. Is awake, alert, follows simple commands in all extremities, continues to have some drainage on the tracheostomy site. Currently afebrile, hemodynamically stable, remains in AFib, rate controlled. Continues to have adequate urine output. No restraints Review of Systems Review of Systems: ROS unobtainable: Yes unobtainable due to endotracheal tube, unobtainable due to medical condition and unobtainable due to mental status Exam Narrative: General: Off all sedation, in no acute distress Lungs/Chest: Coarse breath sounds bilaterally, no wheezing, decreased air entry at bases Rt > Lt, tracheostomy in place with samaniego-colored drainage around the tracheostomy site Cardiac: Irregularly irregular, rate controlled Circulation: Pedal pulses are intact and symmetrical. Abdomen: Normoactive bowel sounds bowel sounds. Morbidly Obese. Soft. NT. ND. PEG tube in place Extremities: No clubbing, cyanosis, bilateral upper and lower extremity edema improving : Can in place Neurologic: Status post tracheostomy, no sedated, opens her eyes, follows simple command in all extremities, pupils equal and reactive to light Objective Data Vital Signs Vital Signs: Vital Signs - 24 hr 04/17/24 14:00 04/17/24 14:00 04/17/24 15:33 Temperature 99.7 F H Pulse Rate 87 80 90 Respiratory Rate 17 Blood Pressure 113/76 Pulse Oximetry 96 95 Oxygen Delivery Mechanical Ventilation Fraction of Inspired Oxygen 30 04/17/24 16:00 04/17/24 16:00 04/17/24 16:00 Temperature 99.4 F Pulse Rate 90 79 Respiratory Rate 19 Blood Pressure 131/89 Pulse Oximetry 95 Oxygen Delivery Fraction of Inspired Oxygen 30 04/17/24 16:00 04/17/24 17:47 04/17/24 18:00 Temperature 99 F Pulse Rate 82 85 Respiratory Rate 19 Blood Pressure 143/97 H Pulse Oximetry 98 96 98 Oxygen Delivery Mechanical Ventilation Mechanical Ventilation Fraction of Inspired Oxygen 30 30 04/17/24 18:00 04/17/24 20:00 04/17/24 20:10 Temperature Pulse Rate 82 82 84 Respiratory Rate Blood Pressure Pulse Oximetry 95 Oxygen Delivery Mechanical Ventilation Fraction of Inspired Oxygen 30 04/17/24 20:30 04/17/24 20:57 04/17/24 21:00 Temperature 98.9 F Pulse Rate 82 86 82 Respiratory Rate 17 17 Blood Pressure 143/92 H Pulse Oximetry 96 96 Oxygen Delivery Mechanical Ventilation Fraction of Inspired Oxygen 30 04/17/24 21:00 04/17/24 22:00 04/17/24 22:00 Temperature 98.7 F Pulse Rate 81 81 Respiratory Rate 14 Blood Pressure 125/88 Pulse Oximetry 96 Oxygen Delivery Fraction of Inspired Oxygen 30 04/17/24 23:15 04/18/24 00:00 04/18/24 00:00 Temperature 99.0 F Pulse Rate 77 89 83 Respiratory Rate 18 Blood Pressure 130/86 Pulse Oximetry 96 95 Oxygen Delivery Mechanical Ventilation Fraction of Inspired Oxygen 30 04/18/24 00:15 04/18/24 00:15 04/18/24 02:00 Temperature Pulse Rate 83 79 Respiratory Rate 18 Blood Pressure Pulse Oximetry 95 Oxygen Delivery Mechanical Ventilation Fraction of Inspired Oxygen 30 30 04/18/24 02:00 04/18/24 02:10 04/18/24 04:00 Temperature 98.9 F Pulse Rate 79 92 90 Respiratory Rate 12 17 Blood Pressure 126/92 H Pulse Oximetry 95 96 95 Oxygen Delivery Mechanical Ventilation Mechanical Ventilation Fraction of Inspired Oxygen 30 30 04/18/24 04:00 04/18/24 04:00 04/18/24 04:00 Temperature 98.6 F Pulse Rate 88 90 Respiratory Rate 17 Blood Pressure 139/89 Pulse Oximetry 95 Oxygen Delivery Fraction of Inspired Oxygen 30 04/18/24 05:16 04/18/24 06:00 04/18/24 06:00 Temperature 98.7 F Pulse Rate 76 84 84 Respiratory Rate 16 Blood Pressure 116/76 Pulse Oximetry 97 98 Oxygen Delivery Mechanical Ventilation Fraction of Inspired Oxygen 30 04/18/24 08:00 04/18/24 08:00 04/18/24 08:00 Temperature 98.5 F Pulse Rate 86 Respiratory Rate 18 Blood Pressure 119/87 Pulse Oximetry 97 Oxygen Delivery Mechanical Ventilation Fraction of Inspired Oxygen 30 30 04/18/24 08:00 04/18/24 09:11 04/18/24 10:00 Temperature Pulse Rate 89 73 73 Respiratory Rate Blood Pressure Pulse Oximetry 98 Oxygen Delivery Mechanical Ventilation Fraction of Inspired Oxygen 30 04/18/24 10:00 04/18/24 11:00 04/18/24 12:00 Temperature 98.7 F Pulse Rate 74 79 Respiratory Rate 19 Blood Pressure 135/87 Pulse Oximetry 98 97 Oxygen Delivery Mechanical Ventilation Fraction of Inspired Oxygen 30 30 04/18/24 12:00 04/18/24 12:00 04/18/24 12:00 Temperature 99.1 F Pulse Rate 72 78 Respiratory Rate 20 Blood Pressure 115/76 Pulse Oximetry 97 Oxygen Delivery Mechanical Ventilation Fraction of Inspired Oxygen 30 Intake/Output Intake/Output: Intake & Output 04/15/24 04/16/24 04/17/24 04/18/24 23:59 23:59 23:59 23:59 Intake Total 1300 1202 1730 625 Output Total 3177 475 1025 800 Balance -1877 727 705 -175 Meds/Results Medications: Active Medications Generic Name Dose Route Start Last Admin Trade Name Freq PRN Reason Stop Dose Admin Acetaminophen 650 mg 03/27/24 14:41 04/15/24 15:26 Acetaminophen 325 Mg Tablet PO 650 mg Q4H PRN Administration Mild Pain (1-3) or Fever Alteplase, Recombinant 2 mg 04/06/24 03:11 04/06/24 03:22 Alteplase 2 Mg Vial (Cathflo) IV PUSH 2 mg ONCE PRN Administration Line Occlusion Amiodarone HCl 400 mg 04/01/24 10:40 04/18/24 08:03 Amiodarone Hcl 200 Mg Tablet PO 400 mg DAILY LAVERNE Administration Apixaban 5 mg 04/13/24 21:00 04/18/24 08:03 Apixaban 5 Mg Tablet PO 5 mg Q12HR LAVERNE Administration Bisacodyl 10 mg 04/10/24 02:20 04/17/24 08:34 Bisacodyl 10 Mg Suppository RECTAL 10 mg QAM PRN Administration Constipation Cyanocobalamin 1,000 mcg 03/27/24 17:00 04/18/24 08:03 Cyanocobalamin 1,000 Mcg Tablet PO 1,000 mcg BID LAVERNE Administration Dextrose 12.5 gm 03/27/24 08:57 Dextrose 50% 25 Gm/50 Ml Syringe IV PUSH PRN PRN Hypoglycemia Protocol Docosanol 1 applic 04/09/24 09:00 04/18/24 12:05 Docosanol 10% Cream 2 Gm TOPICAL 1 applic 5 TIMES DAILY LAVERNE Administration Epoetin Marck-epbx 10,000 units 04/18/24 20:00 Epoetin Marck-Epbx 10,000 Units/Ml Vial IV PUSH 04/18/24 20:01 ONCE ONE Glucagon 1 mg 03/27/24 08:57 Glucagon For Inj 1 Mg Vial IM PRN PRN Hypoglycemia Protocol Glucose 15 gm 03/27/24 08:57 Glucose Oral Gel 15 Gm Of Glucse In 37.5 Gm Tube PO PRN PRN Hypoglycemia Protocol Dextrose 1,000 mls @ 100 mls/hr 03/27/24 08:57 Dextrose 5% 1,000 Ml IVPB PRN PRN Hypoglycemia Protocol Albumin Human 50 mls @ 999 mls/hr 04/03/24 09:19 04/07/24 15:05 Albutein IVPB 05/03/24 09:18 100 mls/hr Q10M PRN Administration HYPOTENSION Cefepime HCl 2 gm in 50 mls @ 100 mls/hr 04/16/24 11:57 Maxipime 2 Gm/Ns 50 Ml IVPB PRN PRN AFTER DIALYSIS Cefepime HCl 2 gm in 50 mls @ 100 mls/hr 04/18/24 15:00 Maxipime 2 Gm/Ns 50 Ml IVPB 04/18/24 15:29 ONCE ONE Insulin Aspart 4 - 8 units 03/29/24 13:00 04/18/24 12:04 Insulin Aspart (*Bkc) 100 Units/Ml SUB-Q 4 units Q4HR LAVERNE Administration Protocol Insulin Glargine 28 units 04/19/24 09:00 Insulin Glargine (*Bkc) 100 Units/Ml SUB-Q DAILY LAVERNE Metoprolol Tartrate 5 mg 04/12/24 00:00 04/12/24 06:14 Metoprolol Tartrate Inj 5 Mg/5 Ml Vial IV PUSH Not Given Q6HR LAVERNE Metoprolol Tartrate 50 mg 04/14/24 09:00 04/18/24 08:02 Metoprolol Tartrate 50 Mg Tab PO 50 mg Q12HR LAVERNE Administration Midazolam HCl 2 mg 04/11/24 16:46 04/14/24 05:28 Midazolam Hcl (*Crx) 2 Mg/2 Ml Vial IV PUSH 2 mg Q2H PRN Administration Ventilator Asynchrony Miscellaneous Information 1 each 04/18/24 00:01 Docosanol Needs To Be Renewed Or It Will Automatically Discontinue. XX 05/18/24 00:00 CLARIFY LAVERNE Multi-Ingred Cream/Lotion/Oil/Oint 1 applic 03/28/24 21:00 04/18/24 08:08 Mineral Oil/White Petrolatum Ointment EACH EYE Not Given Q12HR LAVERNE Pantoprazole Sodium 40 mg 03/29/24 09:00 04/18/24 08:04 Pantoprazole Sodium Iv 40 Mg Vial IV PUSH 40 mg DAILY LAVERNE Administration Polyethylene Glycol 17 gm 04/12/24 07:50 04/17/24 08:29 Polyethylene Glycol 3350 17 Gm Powd.Pack PO 17 gm QAM PRN Administration Constipation Rosuvastatin Calcium 20 mg 03/28/24 09:00 03/31/24 09:28 Rosuvastatin 20 Mg Tablet PO Not Given DAILY LAVERNE Senna/Docusate Sodium 1 tab 04/07/24 21:00 04/17/24 20:57 Senna/Docusate Sodium Tablet PO 1 tab HS LAVERNE Administration Sodium Chloride 10 ml 03/28/24 22:00 04/18/24 12:05 Central Line Flush IV PUSH 10 ml Q8HR LAVERNE Administration Sodium Chloride 10 ml 03/28/24 16:14 Central Line Flush IV PUSH PRN PRN with TPN bag changes Sodium Chloride 20 ml 03/28/24 16:14 Central Line Flush IV PUSH PRN PRN after blood draws Radiology Results: ITS Impressions Chest CTA 03/27/24 06:41 Impression: No evidence of pulmonary embolus, aortic dissection, or aortic aneurysm. Extensive right lower lobe pneumonia. Probable mildly prominent reactive lymphadenopathy the right axilla and subcarinal region. Abdomen X-Ray 03/29/24 08:59 IMPRESSION: 1. Lines and tubes in expected positions. 2. Diffuse bilateral lung disease, right greater than left, consistent with multifocal pneumonia. Renal Ultrasound 03/31/24 15:34 IMPRESSION: No hydronephrosis. Perinephric fluid collection adjacent to the left lower pole. Abdomen Ultrasound 03/31/24 15:39 IMPRESSION: Status post cholecystectomy. Pancreas poorly visualized. Otherwise normal abdominal ultrasound findings. Chest X-Ray 04/18/24 06:05 Impression: No interval change. Stable support tubes, as above. Left-sided central line tip again enters into the right brachiocephalic vein. Small right pleural effusion. Head CT 04/18/24 12:35 Impression: No intracranial abnormality seen. Sinus disease, as above. Labs Labs: Laboratory Results - last 24 hr 04/17/24 04/17/24 04/18/24 17:03 20:52 00:20 WBC RBC Hgb Hct MCV MCH MCHC RDW Plt Count MPV Immature Gran % (Auto) Neut % (Auto) Lymph % (Auto) [place] % (Auto) Eos % (Auto) Baso % (Auto) Lymph # (Auto) [place] # (Auto) Eos # (Auto) Baso # (Auto) Abs Immat Gran (auto) Absolute Neuts (auto) Absolute Nucleated RBC Nucleated RBC % Puncture Site ABG pH ABG pCO2 ABG pO2 ABG PO2/FiO2 Ratio ABG HCO3 ABG O2 Saturation ABG O2 Content ABG Base Excess A-a Gradient Oxyhemoglobin Carboxyhemoglobin Methemoglobin Reduced Hemoglobin Total Hemoglobin O2 Delivery Device O2 Liters/Min Minute Volume Vent Rate Vent Mode FiO2 Tidal Volume PEEP Peak Inspir Pressure Pressure Support Sodium Potassium Chloride Carbon Dioxide Anion Gap BUN Creatinine Estim Creat Clear Calc Estimated GFR Glucose POC Capillary Glucose 217 H 244 H 242 H Calcium Phosphorus Magnesium Total Bilirubin AST ALT Alkaline Phosphatase Total Protein Albumin 04/18/24 04/18/24 04/18/24 04:25 04:40 05:13 WBC 5.6 RBC 3.07 L Hgb 9.3 L Hct 29.3 L MCV 95.4 MCH 30.3 MCHC 31.7 L RDW 16.9 H Plt Count 194 MPV 9.3 Immature Gran % (Auto) 0.9 H Neut % (Auto) 86.9 H Lymph % (Auto) 5.2 L [place] % (Auto) 5.9 Eos % (Auto) 0.9 Baso % (Auto) 0.2 Lymph # (Auto) 0.29 L [place] # (Auto) 0.3 Eos # (Auto) 0.1 Baso # (Auto) 0.0 Abs Immat Gran (auto) 0.05 H Absolute Neuts (auto) 4.9 Absolute Nucleated RBC 0.000 Nucleated RBC % 0.0 Puncture Site Right radial ABG pH 7.490 H ABG pCO2 31.1 L ABG pO2 77.2 L ABG PO2/FiO2 Ratio 2.57 ABG HCO3 23.2 ABG O2 Saturation 96.4 ABG O2 Content 16.2 ABG Base Excess 0.5 A-a Gradient 100.2 Oxyhemoglobin 94.7 Carboxyhemoglobin 0.6 Methemoglobin 0.3 Reduced Hemoglobin 4.4 Total Hemoglobin 12.1 O2 Delivery Device Ventilator O2 Liters/Min Not Reportable Minute Volume Not Reportable Vent Rate Not Reportable Vent Mode Spontaneous FiO2 30 Tidal Volume Not Reportable PEEP 5 Peak Inspir Pressure Not Reportable Pressure Support 10 Sodium 139 Potassium 3.4 Chloride 104 Carbon Dioxide 28 Anion Gap 7 BUN 72 H D Creatinine 1.92 H Estim Creat Clear Calc 39 Estimated GFR 26 L Glucose 257 H POC Capillary Glucose 271 H Calcium 8.6 Phosphorus 3.1 Magnesium 2.2 Total Bilirubin 0.7 AST 16 ALT 36 H Alkaline Phosphatase 100 Total Protein 6.0 L Albumin 2.6 L 04/18/24 04/18/24 04/18/24 07:32 08:02 11:30 WBC RBC Hgb Hct MCV MCH MCHC RDW Plt Count MPV Immature Gran % (Auto) Neut % (Auto) Lymph % (Auto) [place] % (Auto) Eos % (Auto) Baso % (Auto) Lymph # (Auto) [place] # (Auto) Eos # (Auto) Baso # (Auto) Abs Immat Gran (auto) Absolute Neuts (auto) Absolute Nucleated RBC Nucleated RBC % Puncture Site ABG pH ABG pCO2 ABG pO2 ABG PO2/FiO2 Ratio ABG HCO3 ABG O2 Saturation ABG O2 Content ABG Base Excess A-a Gradient Oxyhemoglobin Carboxyhemoglobin Methemoglobin Reduced Hemoglobin Total Hemoglobin O2 Delivery Device O2 Liters/Min Minute Volume Vent Rate Vent Mode FiO2 Tidal Volume PEEP Peak Inspir Pressure Pressure Support Sodium Potassium Chloride Carbon Dioxide Anion Gap BUN Creatinine Estim Creat Clear Calc Estimated GFR Glucose POC Capillary Glucose 249 H 218 H 244 H Calcium Phosphorus Magnesium Total Bilirubin AST ALT Alkaline Phosphatase Total Protein Albumin Quality VTE Prophylaxis VTE prophylaxis: pharmacologic ordered
--- NOTE | 2024-04-18 13:57 | PM.TDS ---
Transfer Discharge Sum: Prov Provider Date of admission: 03/27/24 04:08 Primary care physician: Walt Kirk, Admitting clinician: Rock Bill MD Consults: 03/27/24 Consult to Physician Routine Comment: Spoke to exchange @2050 03/27 [facility] Consulting Provider: Davi Lynch score caller/MD group to consult: cardiology Reason for consultation: afib rvr with recent CV at [facility] in jan. Has provider been notified: Yes 03/28/24 Consult to Physician Routine Comment: Consulting Provider: Reji Robertson score caller/MD group to consult: Health Companion Reason for consultation: Intubation Has provider been notified: Yes 03/31/24 Consult to Physician Routine Comment: Consulting Provider: Nuha Dawson score caller/MD group to consult: Nephrology Reason for consultation: VINCENT Has provider been notified: Yes 04/03/24 Consult to Physician Routine Comment: spoke with Dr. Kee @0905(,) Consulting Provider: Umer Kee score caller/MD group to consult: GI Reason for consultation: Elevated liver enzymes Has provider been notified: Yes 04/11/24 Consult to Physician Routine Comment: Consulting Provider: Trena Gregg Reason for consultation: tunneled HD catheter placement Has provider been notified: Yes Attending physician on discharge: Jean Hill Discharging clinician: Jean Hill Anticipated date of transfer: 04/18/24 Receiving physician/facility: [facility] Receiving physician:You Rees MD [phone] DS: Admitting Diagnosis Discharge Date 04/18/2024 Admitting Diagnosis 68yo female with AFib s/p SHAYY cardioversion that was unsuccessful, KAREN not using CPAP, DM, HTN and endometrial cancer who presents with shortness of breath, leg swelling and weight gain over the past few weeks. Now in with respiratory failure secondary to pneumonia with septic shock. Intubated and on mechanical ventilation. RSV positive, acute kidney injury status post dialysis catheter and dialysis DS: Discharge Diagnosis Discharge Diagnosis (1) Acute hypoxic respiratory failure: Code(s): J96.01 - Acute respiratory failure with hypoxia Status: Acute Assessment and Plan: Acute hypoxic respiratory failure secondary to pneumonia and congestive heart failure Patient now emergently intubated 03/28 -03/28: Repeat PCR was positive RSV -continue isolation -chest x-ray and ABGs reviewed this morning -Currently PEEP to 10 and FiO2 down to 30% -patient will require additional fluid removal before considering weaning from mechanical ventilation -04/09: Started on Precedex infusion, Versed and fentanyl infusion were discontinued -status post stress dose steroids. -discussed with Nephrology, patient did have if improved urine output over the last 24 hours, and since she did not tolerate dialysis well, trousseau consultant recommended commended Bumex 2 mg IV x1. If she does not respond well, will have to dialyze the patient 04/06: Patient did respond to Bumex that was given yesterday with 1900 mL urine output in the last 24 hours 04/07: A new dialysis catheter has been placed in the left IJ, currently functioning well. Have discussed with Nephrology to continue to remove fluid 04/08: Patient was dialyzed yesterday with 1000 mL in fluid removal, urine output has been adequate, I have asked the bedside RN to turn of the sedation, patient remains somnolent, will place patient on ASV, start Precedex infusion since she is getting tachycardic and hypertensive. Once she is more awake will place her on SBT and evaluate for extubation -04/09: Patient getting dialyzed today. Received Bumex last night with good urine output. Chest x-ray shows worsening airspace opacity right mid and lower lung zones. Worsened small right pleural effusion. FiO2 requirements have increased to 60% from 35%. Place patient on pressure support ventilation, 02/06, low tidal volumes, tachypnea, tachycardia, had to be placed back on CMV mode Discussed with and daughter and updated them with patient's condition, intubated for almost 2 weeks, they agreeable with tracheostomy, as scheduled and with ENT for 04/11/2024. -GI has been consulted for PEG tube placement 04/10: Tried to place patient again on pressure support ventilation 02/06, was not getting adequate tidal volumes, was also tachypneic. Also tried ASV, her respiratory rate was too low. I have asked the bedside RN to come down on her Precedex 04/11: Status post tracheostomy 04/12: PEG tube scheduled for today, Placed patient on ASV mode of ventilation, will switch to pressure support after PEG tube placement 04/13: Patient getting dialysis, after which will switch to ASV mode of ventilation or pressure support ventilation 04/14: Increased secretions around the tracheostomy incision site, sent for culture. Currently afebrile, normal WBC count, will hold antibiotic. Place him this placed on ASV mode of ventilation and tolerating well, almost all of her breaths are spontaneous 04/15: Patient tolerated ASV mode of ventilation all day yesterday and through the night. Will continue on ASV mode she is breathing spontaneously. 04/16: Cultures around the tracheostomy side from 04/14: Growing Pseudomonas, sensitivities pending. STARTED PATIENT ON CEFEPIME 04/16, 04/17: Patient has been tolerating ASV mode of ventilation since 04/15/2024. Placed patient on pressure support ventilation 10 off 5 this morning and tolerating well 04/18: Patient has been tolerating pressure support ventilation 10/5 all day yesterday, all night. Will continue pressure support ventilation 03/27 CTA chest Impression: No evidence of pulmonary embolus, aortic dissection, or aortic aneurysm. Extensive right lower lobe pneumonia. Probable mildly prominent reactive lymphadenopathy the right axilla and subcarinal region. (2) Sepsis: Code(s): A41.9 - Sepsis, unspecified organism Status: Acute Assessment and Plan: RESOLVED Sepsis/septic shock secondary to community-acquired pneumonia, initial procalcitonin level 4.4 Blood cultures ordered and negative till now Sputum cultures negative Urine Legionella and pneumococcal antigen negative Status post cefepime and azithromycin MRSA screen negative. Vancomycin discontinued (3) Diabetes: Code(s): E11.9 - Type 2 diabetes mellitus without complications Status: Chronic Assessment and Plan: Status post insulin infusion Off Lantus -continue Accu-Cheks and sliding scale insulin -tube feeds restarted after PEG tube placement on 02/10/2025, tolerating -04/18: Increase Lantus (4) Atrial fibrillation with RVR: Code(s): I48.91 - Unspecified atrial fibrillation Status: Acute Assessment and Plan: Patient was amiodarone infusion which has been switched to p.o. amiodarone per tube metoprolol by Cardiology Patient is anticoagulated with Eliquis, -continue metoprolol and amiodarone per tube, remains in AFib but rate controlled, HR 70-80s Echo Summary 1. Very technically difficult study with limited views. 2. Left ventricular chamber dimension is normal. 3. Left ventricular systolic function is at lower limits of normal, estimated at 50-55%. 4. Left atrial chamber dimension is moderately enlarged (5) Community acquired pneumonia: Code(s): J18.9 - Pneumonia, unspecified organism Status: Acute Assessment and Plan: Resolved (6) Altered mental status: Code(s): R41.82 - Altered mental status, unspecified Status: Acute Assessment and Plan: RESOLVED Likely secondary to hypoxia. Patient had CT scan of the head recently done which was unremarkable Repeat head CT on 03/28 was again unremarkable Ammonia levels within normal limit TSH was normal -patient continues to open her eyes and follows simple commands (7) Electrolyte abnormality: Code(s): E87.8 - Other disorders of electrolyte and fluid balance, not elsewhere classified Status: Acute Assessment and Plan: Patient on intermittent dialysis (8) Shock: Code(s): R57.9 - Shock, unspecified Status: Acute Assessment and Plan: RESOLVED Patient was on Levophed and vasopressin infusion which are currently off -off stress dose steroid - status post 25% albumin -Hold further crystalloids (9) VINCENT (acute kidney injury): Code(s): N17.9 - Acute kidney failure, unspecified Status: Acute Assessment and Plan: Increase in creatinine and drop in urine output likely secondary to shock Patient received IV fluids and 5% albumin earlier in the course. norm CK level Renal ultrasound showed No hydronephrosis. Perinephric fluid collection adjacent to the left lower pole. Nephrology following Continued maintain mean arterial pressure with vasopressors if needed 2 Discussed with trousseau consultant and patient's family. Discussed risks and benefits of starting hemodialysis. Compensation And Benefits Analyst and patient's family in agreement. Patient's consented to proceed. Temporary dialysis catheter placed. Patient was dialyzed. Further dialysis per as per Nephrology -04/04: Patient did not tolerate dialysis as she became tachypneic, tachycardic and hypotensive requiring restarting Levophed. -04/05: Compensation And Benefits Analyst recommended giving Bumex 2 mg IV x1 since patient had slightly improved urine output over the last 24 hours and a creatinine and BUN trending downward, - will monitor urine output, renal function and electrolytes 04/06: Discuss with Nephrology, patient received dialysis today with no removal of fluid 04/07: New left IJ dialysis catheter was inserted today, currently functioning well. Right IJ dialysis catheter was removed -dialysis per Nephrology 04/13: Status post tunneled dialysis catheter placement by surgery -dialysis per Nephrology (10) Elevated liver enzymes: Code(s): R74.8 - Abnormal levels of other serum enzymes Status: Acute Assessment and Plan: Patient is status post cholecystectomy Elevated AST ALT and alkaline phosphatase likely secondary to shock liver Hold statin Right upper quadrant ultrasound - Status post cholecystectomy. Pancreas poorly visualized. Otherwise normal abdominal ultrasound findings. While hepatitis panel was negative Levels were increasing I have discussed with Cardiology regarding potential amiodarone related hepatotoxicity. Patient was on IV amiodarone earlier for rate control as patient was in AFib with RVR. It was switched to p.o. as the rate improved. 04/03 amiodarone was held GI consult and following LFTs have been improving, continue to monitor Plan DVT prophylaxis -continue Eliquis Stress ulcer prophylaxis -protonix Nutrition -tolerating tube feeds 04/18: Patient had weakness and a left upper extremity, CT scan of the brain did not show any intracranial abnormality Code Status - Full Code Condition on transfer: Stable Discussed patient's daughter and has been and updated her with patient's condition and plan of care. Patient likely will be transferring out to [facility] today, 04/18/2024. Accepting physician You Rees MD [phone] Due to a high probability of clinically significant, life threatening deterioration, the patient required my highest level of preparedness to intervene emergently and I personally spent this critical care time directly and personally managing the patient. This critical care time included obtaining a history; examining the patient; pulse oximetry; ordering and review of studies; arranging urgent treatment with development of a management plan; evaluation of patient's response to treatment; frequent reassessment; and discussions with other providers. It was exclusive of separately billable procedures and treating other patients and teaching time. Please see Assessment and Plan section and the rest of the note for further information on patient assessment and treatment This dictation may have been done utilizing a voice recognition system. Attempts have been made to correct errors. However, there may be uncorrected grammatical, spelling, and recognitions errors present. Transfer Discharge Sum: Med Medications Active and Home Medications: Home Medications losartan 100 mg-hydrochlorothiazide 25 mg tablet 1 tablet PO DAILY 03/19/22 [History Confirmed 03/27/24] metformin 500 mg tablet 500 mg PO BID 03/19/22 [History Confirmed 03/27/24] metoprolol tartrate 25 mg tablet 25 mg PO BID 03/19/22 [History Confirmed 03/27/24] rosuvastatin 20 mg tablet 20 mg PO DAILY 01/01/23 [History Confirmed 03/27/24] ezetimibe 10 mg tablet 10 mg PO DAILY 01/07/23 [History Confirmed 03/27/24] cyanocobalamin (vitamin B-12) 2 tablet PO DAILY 01/06/24 [History Confirmed 03/27/24] apixaban 5 mg tablet (Eliquis) 5 mg PO Q12H 03/27/24 [History Confirmed 03/27/24] tirzepatide 2.5 mg/0.5 mL subcutaneous pen injector (Mounjaro) 2.5 mg subcut WEEKLY 03/27/24 [History Confirmed 03/27/24] Active Medications Acetaminophen (Acetaminophen 325 Mg Tablet) 650 mg PO Q4H PRN PRN Reason: Mild Pain (1-3) or Fever Last Admin: 04/15/24 15:26 Dose: 650 mg Alteplase, Recombinant (Alteplase 2 Mg Vial (Cathflo)) 2 mg IV PUSH ONCE PRN PRN Reason: Line Occlusion Last Admin: 04/06/24 03:22 Dose: 2 mg Amiodarone HCl (Amiodarone Hcl 200 Mg Tablet) 400 mg PO DAILY [facility] Last Admin: 04/18/24 08:03 Dose: 400 mg Apixaban (Apixaban 5 Mg Tablet) 5 mg PO Q12HR [facility] Last Admin: 04/18/24 08:03 Dose: 5 mg Bisacodyl (Bisacodyl 10 Mg Suppository) 10 mg RECTAL QAM PRN PRN Reason: Constipation Last Admin: 04/17/24 08:34 Dose: 10 mg Cyanocobalamin (Cyanocobalamin 1,000 Mcg Tablet) 1,000 mcg PO BID [facility] Last Admin: 04/18/24 08:03 Dose: 1,000 mcg Dextrose (Dextrose 50% 25 Gm/50 Ml Syringe) 12.5 gm IV PUSH PRN PRN; Protocol PRN Reason: Hypoglycemia Docosanol (Docosanol 10% Cream 2 Gm) 1 applic TOPICAL 5 TIMES DAILY [facility] Last Admin: 04/18/24 12:05 Dose: 1 applic Epoetin Marck-epbx (Epoetin Marck-Epbx 10,000 Units/Ml Vial) 10,000 units IV PUSH ONCE ONE Stop: 04/18/24 20:01 Glucagon (Glucagon For Inj 1 Mg Vial) 1 mg IM PRN PRN; Protocol PRN Reason: Hypoglycemia Glucose (Glucose Oral Gel 15 Gm Of Glucse In 37.5 Gm Tube) 15 gm PO PRN PRN; Protocol PRN Reason: Hypoglycemia Dextrose (Dextrose 5% 1,000 Ml) 1,000 mls @ 100 mls/hr IVPB PRN PRN; Protocol PRN Reason: Hypoglycemia Albumin Human (Albutein) 50 mls @ 999 mls/hr IVPB Q10M PRN PRN Reason: HYPOTENSION Stop: 05/03/24 09:18 Last Admin: 04/07/24 15:05 Dose: 100 mls/hr Cefepime HCl (Maxipime 2 Gm/Ns 50 Ml) 2 gm in 50 mls @ 100 mls/hr IVPB PRN PRN PRN Reason: AFTER DIALYSIS Cefepime HCl (Maxipime 2 Gm/Ns 50 Ml) 2 gm in 50 mls @ 100 mls/hr IVPB ONCE ONE Stop: 04/18/24 15:29 Insulin Aspart (Insulin Aspart (*Bkc) 100 Units/Ml) 4 - 8 units SUB-Q Q4HR [facility]; Protocol Last Admin: 04/18/24 12:04 Dose: 4 units Insulin Glargine (Insulin Glargine (*Bkc) 100 Units/Ml) 28 units SUB-Q DAILY [facility] Metoprolol Tartrate (Metoprolol Tartrate Inj 5 Mg/5 Ml Vial) 5 mg IV PUSH Q6HR [facility] Last Admin: 04/12/24 06:14 Dose: Not Given Metoprolol Tartrate (Metoprolol Tartrate 50 Mg Tab) 50 mg PO Q12HR [facility] Last Admin: 04/18/24 08:02 Dose: 50 mg Midazolam HCl (Midazolam Hcl (*Crx) 2 Mg/2 Ml Vial) 2 mg IV PUSH Q2H PRN PRN Reason: Ventilator Asynchrony Last Admin: 04/14/24 05:28 Dose: 2 mg Miscellaneous Information (Docosanol Needs To Be Renewed Or It Will Automatically Discontinue.) 1 each XX CLARIFY [facility] Stop: 05/18/24 00:00 Multi-Ingred Cream/Lotion/Oil/Oint (Mineral Oil/White Petrolatum Ointment) 1 applic EACH EYE Q12HR [facility] Last Admin: 04/18/24 08:08 Dose: Not Given Pantoprazole Sodium (Pantoprazole Sodium Iv 40 Mg Vial) 40 mg IV PUSH DAILY [facility] Last Admin: 04/18/24 08:04 Dose: 40 mg Polyethylene Glycol (Polyethylene Glycol 3350 17 Gm Powd.Pack) 17 gm PO QAM PRN PRN Reason: Constipation Last Admin: 04/17/24 08:29 Dose: 17 gm Rosuvastatin Calcium (Rosuvastatin 20 Mg Tablet) 20 mg PO DAILY [facility] Last Admin: 03/31/24 09:28 Dose: Not Given Senna/Docusate Sodium (Senna/Docusate Sodium Tablet) 1 tab PO HS [facility] Last Admin: 04/17/24 20:57 Dose: 1 tab Sodium Chloride (Central Line Flush) 10 ml IV PUSH Q8HR [facility] Last Admin: 04/18/24 12:05 Dose: 10 ml Sodium Chloride (Central Line Flush) 10 ml IV PUSH PRN PRN PRN Reason: with TPN bag changes Sodium Chloride (Central Line Flush) 20 ml IV PUSH PRN PRN PRN Reason: after blood draws Transfer Discharge Sum: Hosp Hospital Course Hospital course: Yulia Francisco is a 68 year old female Time Spent with Patient Time attestation: Total time spent providing and/or coordinating transfer services: Exam Narrative: General: Off all sedation, in no acute distress Lungs/Chest: Coarse breath sounds bilaterally, no wheezing, decreased air entry at bases Rt > Lt, tracheostomy in place with smaaniego-colored drainage around the tracheostomy site Cardiac: Irregularly irregular, rate controlled Circulation: Pedal pulses are intact and symmetrical. Abdomen: Normoactive bowel sounds bowel sounds. Morbidly Obese. Soft. NT. ND. PEG tube in place Extremities: No clubbing, cyanosis, bilateral upper and lower extremity edema improving : Can in place Neurologic: Status post tracheostomy, no sedated, opens her eyes, follows simple command in all extremities, pupils equal and reactive to light DS: Data Data Completed and Pending Labs on day of discharge: Labs from last 24 hours 04/18/24 04/18/24 04/18/24 11:30 08:02 07:32 WBC RBC Hgb Hct MCV MCH MCHC RDW Plt Count MPV Immature Gran % (Auto) Neut % (Auto) Lymph % (Auto) [place] % (Auto) Eos % (Auto) Baso % (Auto) Lymph # (Auto) [place] # (Auto) Eos # (Auto) Baso # (Auto) Abs Immat Gran (auto) Absolute Neuts (auto) Absolute Nucleated RBC Nucleated RBC % Puncture Site ABG pH ABG pCO2 ABG pO2 ABG PO2/FiO2 Ratio ABG HCO3 ABG O2 Saturation ABG O2 Content ABG Base Excess A-a Gradient Oxyhemoglobin Carboxyhemoglobin Methemoglobin Reduced Hemoglobin Total Hemoglobin O2 Delivery Device O2 Liters/Min Minute Volume Vent Rate Vent Mode FiO2 Tidal Volume PEEP Peak Inspir Pressure Pressure Support Sodium Potassium Chloride Carbon Dioxide Anion Gap BUN Creatinine Estim Creat Clear Calc Estimated GFR Glucose POC Capillary Glucose 244 H 218 H 249 H Calcium Phosphorus Magnesium Total Bilirubin AST ALT Alkaline Phosphatase Total Protein Albumin 04/18/24 04/18/24 04/18/24 05:13 04:40 04:25 WBC 5.6 RBC 3.07 L Hgb 9.3 L Hct 29.3 L MCV 95.4 MCH 30.3 MCHC 31.7 L RDW 16.9 H Plt Count 194 MPV 9.3 Immature Gran % (Auto) 0.9 H Neut % (Auto) 86.9 H Lymph % (Auto) 5.2 L [place] % (Auto) 5.9 Eos % (Auto) 0.9 Baso % (Auto) 0.2 Lymph # (Auto) 0.29 L [place] # (Auto) 0.3 Eos # (Auto) 0.1 Baso # (Auto) 0.0 Abs Immat Gran (auto) 0.05 H Absolute Neuts (auto) 4.9 Absolute Nucleated RBC 0.000 Nucleated RBC % 0.0 Puncture Site Right radial ABG pH 7.490 H ABG pCO2 31.1 L ABG pO2 77.2 L ABG PO2/FiO2 Ratio 2.57 ABG HCO3 23.2 ABG O2 Saturation 96.4 ABG O2 Content 16.2 ABG Base Excess 0.5 A-a Gradient 100.2 Oxyhemoglobin 94.7 Carboxyhemoglobin 0.6 Methemoglobin 0.3 Reduced Hemoglobin 4.4 Total Hemoglobin 12.1 O2 Delivery Device Ventilator O2 Liters/Min Not Reportable Minute Volume Not Reportable Vent Rate Not Reportable Vent Mode Spontaneous FiO2 30 Tidal Volume Not Reportable PEEP 5 Peak Inspir Pressure Not Reportable Pressure Support 10 Sodium 139 Potassium 3.4 Chloride 104 Carbon Dioxide 28 Anion Gap 7 BUN 72 H D Creatinine 1.92 H Estim Creat Clear Calc 39 Estimated GFR 26 L Glucose 257 H POC Capillary Glucose 271 H Calcium 8.6 Phosphorus 3.1 Magnesium 2.2 Total Bilirubin 0.7 AST 16 ALT 36 H Alkaline Phosphatase 100 Total Protein 6.0 L Albumin 2.6 L 04/18/24 04/17/24 04/17/24 00:20 20:52 17:03 WBC RBC Hgb Hct MCV MCH MCHC RDW Plt Count MPV Immature Gran % (Auto) Neut % (Auto) Lymph % (Auto) [place] % (Auto) Eos % (Auto) Baso % (Auto) Lymph # (Auto) [place] # (Auto) Eos # (Auto) Baso # (Auto) Abs Immat Gran (auto) Absolute Neuts (auto) Absolute Nucleated RBC Nucleated RBC % Puncture Site ABG pH ABG pCO2 ABG pO2 ABG PO2/FiO2 Ratio ABG HCO3 ABG O2 Saturation ABG O2 Content ABG Base Excess A-a Gradient Oxyhemoglobin Carboxyhemoglobin Methemoglobin Reduced Hemoglobin Total Hemoglobin O2 Delivery Device O2 Liters/Min Minute Volume Vent Rate Vent Mode FiO2 Tidal Volume PEEP Peak Inspir Pressure Pressure Support Sodium Potassium Chloride Carbon Dioxide Anion Gap BUN Creatinine Estim Creat Clear Calc Estimated GFR Glucose POC Capillary Glucose 242 H 244 H 217 H Calcium Phosphorus Magnesium Total Bilirubin AST ALT Alkaline Phosphatase Total Protein Albumin Preliminary micro results at discharge 04/14/24 12:03 Anaerobic Culture - Preliminary Other Prevotella melaninogenica Procedures/Treatments: 03/28: PICC line 04/07: A new Left IJ dialysis catheter was inserted 04/11: Status post tracheostomy by ENT 04/12: PEG tube placed by GI 04/13: Tunnel dialysis catheter placement by surgery
--- NOTE | 2024-04-18 15:49 | PCRCNOTE ---
Called and spoke to Mally at [facility]. She wanted report from Respiratory about ventilator settings and the patient's trach.
[2024-04-18 16:26] LABS: Glucose Point of Care 174 mg/dl (65-105)
--- NOTE | 2024-04-18 16:35 | P.PNNP_ITS ---
Progress Note: A&P Assessment and Plan (1) VINCENT (acute kidney injury): Code(s): N17.9 - Acute kidney failure, unspecified Status: Acute Assessment and Plan: * as noted by trend of labs since admission * normal creatinine at baseline and on admission * multifactorial etiology: * hemodynamic instability/shock * infection/sepsis (pneumonia + RSV) * ARB + HCTZ use prior to admission * contrast (CTA of chest on 03/27) * hypoxia * afib with RVR * prerenal factors (?) * evaluation to date noted: * renal ultrasound without hydro * urine electrolytes prerenal * urine eosinophils negative * CPK normal * initiated on [employer]/dialysis on 04/02/24 * HD today and continue M/W/F schedule for now * making urine but BUN/creatinine continues to rise w/o dialytic support (and still with pulmonary edema on CXR) * considered scheduled diuretic therapy * s/p tunneled HD catheter placement on 04/13 * follow trend of repeat labs and UOP to assess for potential renal recovery (2) Acute hypoxic respiratory failure: Code(s): J96.01 - Acute respiratory failure with hypoxia Status: Acute Assessment and Plan: * seconeary to pneumonia, RSV, and possible CHF * CTA of chest noted: * no evidence of pulmonary embolus, aortic dissection, or aortic aneurysm * extensive right lower lobe pneumonia * probable mildly prominent reactive lymphadenopathy the right axilla and subcarinal region * emergently intubated 03/28 * completed course of steroids * follow respiratory status * s/p tracheostomy (on 04/11) for prolonged ventilator weaning * weaning as tolerated (3) Septic shock: Code(s): A41.9 - Sepsis, unspecified organism; R65.21 - Severe sepsis with septic shock Status: Acute Assessment and Plan: * resolved * secondary to extensive pneumonia +/- RSV * completed course antibiotics * cultures negative to date * off pressors currently (4) Atrial fibrillation with RVR: Code(s): I48.91 - Unspecified atrial fibrillation Status: Acute Assessment and Plan: * rate control strategy * on Eliquis * Echo results noted * Cardiology following (5) Anemia: Code(s): D64.9 - Anemia, unspecified Status: Acute Assessment and Plan: * likely a manifestation of VINCENT and acute illness * on DANG with dialysis * follow trend of H/H (6) Community acquired pneumonia: Code(s): J18.9 - Pneumonia, unspecified organism Status: Acute Assessment and Plan: * as noted by admission imaging * culture data noted (negative to date) * completed course of antibiotics (7) Elevated liver enzymes: Code(s): R74.8 - Abnormal levels of other serum enzymes Status: Acute Assessment and Plan: * thought to be secondary to shock liver * statin on hold * liver enzymes fluctuating * follow trend (8) Diabetes: Code(s): E11.9 - Type 2 diabetes mellitus without complications Status: Chronic Assessment and Plan: * follow accu-cheks * glycemic control per hospitalist/pelletizer Will continue to follow. L Subjective Date/time seen: 04/18/24 16:35 Interval history: Follow-up for acute kidney injury/acute renal failure requiring hemodialysis. Chart reviewed since last seen -- tolerating dialysis treatment at the time of my visit (seen on HD at 4:25PM); remains on mechanical ventilation via tracheostomy; on no sedation and awake/alert and able to follow simple commands; remains hemodynamically stable at this time; continues to make reasonable urine output but BUN & creatinine rise without dialytic support; remains in rate- controlled atrial fibrillation; noted plans for discharge to [facility]. Exam 2 Narrative: General: elderly but WD/WN female on mechanical ventilation via tracheostomy Heart: IRRR, normal S1 and S2; no rub Lungs: coarse breath sounds Abdomen: soft, nontender, nondistended, positive bowel sounds Extremities: no cyanosis or clubbing; trace edema Skin: no rash or nodules Objective Data Vital Signs Vital Signs: Vital Signs Temp Pulse Resp BP Pulse Ox O2 Del Method FiO2 04/18/24 16:30 86 116/77 04/18/24 16:15 90 118/75 04/18/24 16:00 Mechanical Ventilation 30 04/18/24 16:00 90 04/18/24 16:00 30 04/18/24 16:00 83 114/76 04/18/24 16:00 99.1 F 85 16 114/76 96 04/18/24 15:45 80 113/76 04/18/24 15:30 80 119/82 04/18/24 15:25 85 116/85 04/18/24 15:25 30 04/18/24 15:05 76 96 Mechanical Ventilation 30 04/18/24 15:00 98.8 F 78 15 112/68 95 04/18/24 14:00 75 04/18/24 14:00 98.9 F 79 19 105/65 97 04/18/24 12:40 77 97 Mechanical Ventilation 30 04/18/24 12:00 99.1 F 78 20 115/76 97 04/18/24 12:00 72 04/18/24 12:00 Mechanical Ventilation 30 04/18/24 12:00 30 04/18/24 11:00 79 97 Mechanical Ventilation 04/18/24 10:00 98.7 F 74 19 135/87 98 04/18/24 10:00 73 04/18/24 09:11 73 98 Mechanical Ventilation 04/18/24 08:00 89 04/18/24 08:00 30 04/18/24 08:00 Mechanical Ventilation 04/18/24 08:00 98.5 F 86 18 119/87 97 04/18/24 06:00 98.7 F 84 16 116/76 98 04/18/24 06:00 84 04/18/24 05:16 76 97 Mechanical Ventilation 04/18/24 04:00 98.6 F 90 17 139/89 95 04/18/24 04:00 30 04/18/24 04:00 88 04/18/24 04:00 90 17 95 Mechanical Ventilation 04/18/24 02:10 92 96 Mechanical Ventilation 04/18/24 02:00 98.9 F 79 12 126/92 H 95 04/18/24 02:00 79 04/18/24 00:15 30 04/18/24 00:15 83 18 95 Mechanical Ventilation 04/18/24 00:00 99.0 F 83 18 130/86 95 04/18/24 00:00 89 04/17/24 23:15 77 96 Mechanical Ventilation 30 04/17/24 22:00 81 04/17/24 22:00 98.7 F 81 14 125/88 96 04/17/24 21:00 30 04/17/24 21:00 82 17 96 Mechanical Ventilation 30 04/17/24 20:57 86 04/17/24 20:30 98.9 F 82 17 143/92 H 96 04/17/24 20:10 84 95 Mechanical Ventilation 30 04/17/24 20:00 82 Intake/Output Intake/Output: Intake & Output 04/15/24 04/16/24 04/17/24 04/18/24 23:59 23:59 23:59 23:59 Intake Total 1300 1202 1730 1250 Output Total 8409 687 1025 1500 Balance -1877 727 705 -250 Meds/Results Medications: Active Medications Generic Name Dose Route Start Last Admin Trade Name Freq PRN Reason Stop Dose Admin Acetaminophen 650 mg 03/27/24 14:41 04/15/24 15:26 Acetaminophen 325 Mg Tablet PO 650 mg Q4H PRN Administration Mild Pain (1-3) or Fever Alteplase, Recombinant 2 mg 04/06/24 03:11 04/06/24 03:22 Alteplase 2 Mg Vial (Cathflo) IV PUSH 2 mg ONCE PRN Administration Line Occlusion Amiodarone HCl 400 mg 04/01/24 10:40 04/18/24 08:03 Amiodarone Hcl 200 Mg Tablet PO 400 mg DAILY LAVERNE Administration Apixaban 5 mg 04/13/24 21:00 04/18/24 08:03 Apixaban 5 Mg Tablet PO 5 mg Q12HR LAVERNE Administration Bisacodyl 10 mg 04/10/24 02:20 04/17/24 08:34 Bisacodyl 10 Mg Suppository RECTAL 10 mg QAM PRN Administration Constipation Cyanocobalamin 1,000 mcg 03/27/24 17:00 04/18/24 17:28 Cyanocobalamin 1,000 Mcg Tablet PO 1,000 mcg BID LAVERNE Administration Dextrose 12.5 gm 03/27/24 08:57 Dextrose 50% 25 Gm/50 Ml Syringe IV PUSH PRN PRN Hypoglycemia Protocol Docosanol 1 applic 04/09/24 09:00 04/18/24 17:28 Docosanol 10% Cream 2 Gm TOPICAL 1 applic 5 TIMES DAILY LAVERNE Administration Epoetin Marck-epbx 10,000 units 04/18/24 20:00 04/18/24 17:16 Epoetin Marck-Epbx 10,000 Units/Ml Vial IV PUSH 04/18/24 20:01 10,000 units ONCE ONE Administration Glucagon 1 mg 03/27/24 08:57 Glucagon For Inj 1 Mg Vial IM PRN PRN Hypoglycemia Protocol Glucose 15 gm 03/27/24 08:57 Glucose Oral Gel 15 Gm Of Glucse In 37.5 Gm Tube PO PRN PRN Hypoglycemia Protocol Dextrose 1,000 mls @ 100 mls/hr 03/27/24 08:57 Dextrose 5% 1,000 Ml IVPB PRN PRN Hypoglycemia Protocol Albumin Human 50 mls @ 999 mls/hr 04/03/24 09:19 04/07/24 15:05 Albutein IVPB 05/03/24 09:18 100 mls/hr Q10M PRN Administration HYPOTENSION Cefepime HCl 2 gm in 50 mls @ 100 mls/hr 04/16/24 11:57 Maxipime 2 Gm/Ns 50 Ml IVPB PRN PRN AFTER DIALYSIS Insulin Aspart 4 - 8 units 03/29/24 13:00 04/18/24 17:20 Insulin Aspart (*Bkc) 100 Units/Ml SUB-Q Not Given Q4HR [facility] Protocol Insulin Glargine 28 units 04/19/24 09:00 Insulin Glargine (*Bkc) 100 Units/Ml SUB-Q DAILY LAVERNE Metoprolol Tartrate 5 mg 04/12/24 00:00 04/12/24 06:14 Metoprolol Tartrate Inj 5 Mg/5 Ml Vial IV PUSH Not Given Q6HR LAVERNE Metoprolol Tartrate 50 mg 04/14/24 09:00 04/18/24 08:02 Metoprolol Tartrate 50 Mg Tab PO 50 mg Q12HR LAVERNE Administration Midazolam HCl 2 mg 04/11/24 16:46 04/14/24 05:28 Midazolam Hcl (*Crx) 2 Mg/2 Ml Vial IV PUSH 2 mg Q2H PRN Administration Ventilator Asynchrony Miscellaneous Information 1 each 04/18/24 00:01 Docosanol Needs To Be Renewed Or It Will Automatically Discontinue. XX 05/18/24 00:00 CLARIFY LAVERNE Multi-Ingred Cream/Lotion/Oil/Oint 1 applic 03/28/24 21:00 04/18/24 08:08 Mineral Oil/White Petrolatum Ointment EACH EYE Not Given Q12HR LAVERNE Pantoprazole Sodium 40 mg 03/29/24 09:00 04/18/24 08:04 Pantoprazole Sodium Iv 40 Mg Vial IV PUSH 40 mg DAILY LAVERNE Administration Polyethylene Glycol 17 gm 04/12/24 07:50 04/17/24 08:29 Polyethylene Glycol 3350 17 Gm Powd.Pack PO 17 gm QAM PRN Administration Constipation Rosuvastatin Calcium 20 mg 03/28/24 09:00 03/31/24 09:28 Rosuvastatin 20 Mg Tablet PO Not Given DAILY LAVERNE Senna/Docusate Sodium 1 tab 04/07/24 21:00 04/17/24 20:57 Senna/Docusate Sodium Tablet PO 1 tab HS LAVERNE Administration Sodium Chloride 10 ml 03/28/24 22:00 04/18/24 12:05 Central Line Flush IV PUSH 10 ml Q8HR LAVERNE Administration Sodium Chloride 10 ml 03/28/24 16:14 Central Line Flush IV PUSH PRN PRN with TPN bag changes Sodium Chloride 20 ml 03/28/24 16:14 Central Line Flush IV PUSH PRN PRN after blood draws Radiology Results: ITS Impressions Chest CTA 03/27/24 06:41 Impression: No evidence of pulmonary embolus, aortic dissection, or aortic aneurysm. Extensive right lower lobe pneumonia. Probable mildly prominent reactive lymphadenopathy the right axilla and subcarinal region. Abdomen X-Ray 03/29/24 08:59 IMPRESSION: 1. Lines and tubes in expected positions. 2. Diffuse bilateral lung disease, right greater than left, consistent with multifocal pneumonia. Renal Ultrasound 03/31/24 15:34 IMPRESSION: No hydronephrosis. Perinephric fluid collection adjacent to the left lower pole. Abdomen Ultrasound 03/31/24 15:39 IMPRESSION: Status post cholecystectomy. Pancreas poorly visualized. Otherwise normal abdominal ultrasound findings. Chest X-Ray 04/18/24 06:05 Impression: No interval change. Stable support tubes, as above. Left-sided central line tip again enters into the right brachiocephalic vein. Small right pleural effusion. Head CT 04/18/24 12:35 Impression: No intracranial abnormality seen. Sinus disease, as above. Labs Labs: Laboratory Tests 04/18/24 04:40 04/18/24 04:40 Calcium 8.6 Phosphorus 3.1 Magnesium 2.2 Total Bilirubin 0.7 AST 16 ALT 36 H Alkaline Phosphatase 100 Total Protein 6.0 L Albumin 2.6 L Microbiology 04/14/24 12:03 Other Anaerobic Culture - Preliminary Prevotella melaninogenica 04/14/24 12:03 Other Aerobic Culture - Final Pseudomonas aeruginosa
[2024-04-18] MEDS: EPOETIN ALFA-EPBX 10,000 UNITS/ML VIAL 10000 UNITS IV PUSH (17:16)
[2024-04-18] MEDS: HEPARIN SODIUM 1,000 UNITS/ML VIAL 6000 UNITS IV PUSH (18:40)
--- NOTE | 2024-04-18 18:44 | PC.NURSE ---
Report given to Ralf Reynolds RN at [facility].
[2024-04-18] MEDS: CEFEPIME 2 GM/NS 50 ML BAG IVPB (19:13)
== END 2024-04-18 20:25 | DRG 4 ==
LOC: ANHED 23:28 → ANH3MEDSUR 03-27 04:44 → ANH2MED 03-27 10:03 → ANHIMU 03-27 15:50 → ANHICU 03-28 14:36
PROVIDERS: Internal Medicine; Internal Medicine Gastroenterology; Internal Medicine Nephrology; Otolaryngology; Student in an Organized Health Care Education/Training Program; Surgery; Admitting Provider Internal Medicine; Emergency Provider Student in an Organized Health Care Education/Training Program; PCP Internal Medicine; Visit Provider Internal Medicine
PROC: 0B110F4 Bypass Trachea to Cutaneous with Tracheostomy Device, Open Approach (ICD-10-PCS; principal; 2024-04-11 10:45)
PROC: 0DH63UZ Insertion of Feeding Device into Stomach, Percutaneous Approach (ICD-10-PCS; CPT 43246; principal; 2024-04-12 15:00)
PROC: 0JH60XZ Insertion of Tunneled Vascular Access Device into Chest Subcutaneous Tissue and Fascia, Open Approach (ICD-10-PCS; CPT 36908; principal; 2024-04-13 14:00)
DX: A41.9 Sepsis, unspecified organism (principal); J96.01 Acute respiratory failure with hypoxia; R65.21 Severe sepsis with septic shock; I50.33 Acute on chronic diastolic (congestive) heart failure; K72.00 Acute and subacute hepatic failure without coma; J12.1 Respiratory syncytial virus pneumonia; N17.9 Acute kidney failure, unspecified; E46 Unspecified protein-calorie malnutrition; I48.91 Unspecified atrial fibrillation; E11.9 Type 2 diabetes mellitus without complications; E78.5 Hyperlipidemia, unspecified; I11.0 Hypertensive heart disease with heart failure; G47.33 Obstructive sleep apnea (adult) (pediatric); E87.6 Hypokalemia; R74.01 Elevation of levels of liver transaminase levels; R53.1 Weakness; W18.30XA Fall on same level, unspecified, initial encounter; B96.5 Pseudomonas (aeruginosa) (mallei) (pseudomallei) as the cause of diseases classified elsewhere; D64.9 Anemia, unspecified; Z20.822 Contact with and (suspected) exposure to COVID-19; Z79.84 Long term (current) use of oral hypoglycemic drugs; Z79.85 Long-term (current) use of injectable non-insulin antidiabetic drugs; Z79.01 Long term (current) use of anticoagulants; Z85.42 Personal history of malignant neoplasm of other parts of uterus
CPT/HCPCS: 31500; 36415; 36569; 36600; 43246; 70450; 71045; 71275; 76705; 76775; 77001; 80048; 80053; 80074; 80202; 81001; 81050; 82140; 82375; 82550; 82570; 82805; 82948; 83036; 83050; 83605; 83690; 83735; 83880; 84100; 84145; 84156; 84300; 84443; 84478; 84484; 84540; 85018; 85025; 85027; 85610; 85730; 85999; 86706; 86738; 87040; 87070; 87075; 87086; 87186; 87205; 87340; 87449; 87637; 87641; 87899; 93005; 93306; 94002; 94003; 94640; 99291; A9270; C1750; C1751; C1752; G0257; J0282; J0330; J0456; J0613; J0690; J0692; J0696; J1644; J1720; J1815; J1939; J1940; J2003; J2004; J2250; J2470; J2704; J2997; J3010; J3370; J7030; J7120; P9045; P9047; Q5105; Q9967

== ENCOUNTER 2024-06-16 08:12 | Emergency (ER) | payer MEDICARE, OTHER, SELFPAY ==
--- NOTE | ~2024-06-16 | XR_ITS ---
HISTORY: fall COMPARISON: None TECHNIQUE: 2 views of the right hip along with an AP view of the pelvis FINDINGS: No acute fracture or dislocation is identified. Superior lateral sclerosis of the bilateral femoral acetabular joint spaces present consistent with o steoarthritis. Joint space narrowing detected within the bilateral SI joints with sclerosis. Degenerative disease within the visualized portion of the lower lumbar spine. The pubic symphysis is narrowed, and demonstrates sclerosis. Fecal stasis distends the rectum. IMPRESSION: Degenerative disease, without acute fracture or dislocation. Reviewed, dictated and finalized at location A.
--- NOTE | ~2024-06-16 | CT_ITS ---
History: Fall PROCEDURE: CT lumbar spine without intravenous contrast. COMPARISON: None TECHNIQUE: Multiple contiguous axial images of the lumbar spine were performed without the administration of int ravenous contrast. DLP: 1357 mGy-cm FINDINGS: Degenerative disease is identified within the lower lumbar spine, with osteophyte formation, disc spa ce narrowing, endplate changes and facet arthropathy. Ankylosis of L5/S1 is suspected. No acute compression fractures are present. The bladder is significantly distended with urine. Moderate left-sided hydroureteronephrosis is identified, likely secondary to bladder distention. Fecal stasis within the rectum. Impression: Degenerative disease, without acute compression fracture. Significant bladder distention, causing hydroureteronephrosis of the visualized left kidney and urete r. Reviewed, dictated and finalized at location [facility]. Impression: Degenerative disease, without acute compression fracture. Significant bladder distention, causing hydroureteronephrosis of the visualized left kidney and ureter.
--- NOTE | ~2024-06-16 | CT_ITS ---
Non-contrast Head CT History: Status post fall COMPARISON: 04/18/2024 Technique: Axial non-contrast imaging of the brain was performed. Dose reduction technique was used on this scan by utilizing automated exposure control and iterative reconstruction technique. The dose -length product (DLP) was 524.98 mGy-cm. Findings: There is no evidence of intracranial hemorrhage, mass lesion, or acute infarct. Brain par enchyma appears normal. The ventricles and subarachnoid spaces are normal in size. The calvarium ap pears normal. There is left maxillary and bilateral sphenoid sinus disease. The remaining visualized paranasal sinuses and mastoid air cells are clear. Impression: No intracranial abnormality seen. Sinus disease, as above. Reviewed, dictated and finalized at [facility]. Impression: No intracranial abnormality seen. Sinus disease, as above.
--- NOTE | ~2024-06-16 | CT_ITS ---
Non-contrast CT scan of the Abdomen and Pelvis Clinical indication: Acute urinary retention Technique: 2.5 mm axial scans were obtained through the abdomen and pelvis without intravenous or or al contrast. Dose reduction technique was used on this scan by utilizing automated exposure control a nd iterative reconstruction technique. The dose-length product (DLP) was 1671.17 mGy-cm. Findings: Images through the lung bases reveal bibasilar scarring or atelectasis. 3 mm nonobstructing right renal stone. No left renal stone. No ureteral stone or hydronephrosis on ei ther side. The liver, spleen, pancreas, and adrenals appear normal. Cholecystectomy clips are present. There is no aortic aneurysm. There is no evidence of bowel obstruction. Prominent stool present at the rectum with probable mild s tercoral proctitis. Prominent stool present in the remainder of the colon. Previous gastrostomy tube present. The balloon is possibly external to the gastric lumen, though this may be artifactual appear ance. Images through the pelvis were performed. There is no evidence of ascites or lymphadenopathy. Urinary bladder collapsed around a Can catheter. No pelvic mass. Probable prior hysterectomy. Impression: Decompressed urinary bladder with Can catheter in place. No hydronephrosis. 3 mm nonobstructing rig ht renal stone. Fecal impaction/constipation with stercoral proctitis. Percutaneous gastrostomy tube balloon may be external to the gastric lumen, though this may be artifa ctual in appearance. Correlate with gastrostomy tube function. Reviewed, dictated and finalized at [facility]. Impression: Decompressed urinary bladder with Can catheter in place. No hydronephrosis. 3 mm nonobstructing right renal stone. Fecal impaction/constipation with stercoral proctitis. Percutaneous gastrostomy tube balloon may be external to the gastric lumen, tho ug this may be artifactual in appearance. Correlate with gastrostomy tube func tion.
--- NOTE | ~2024-06-16 | CT_ITS ---
History: Fall PROCEDURE: CT cervical spine without intravenous contrast. COMPARISON: None TECHNIQUE: Multiple contiguous axial images of the cervical spine were performed without the administration of i ntravenous contrast. DLP: 525 mGy-cm FINDINGS: Severe degenerative disease is identified, with osteophyte formation, disc space narrowing, endplate changes and vacuum phenomena. Facet arthropathy is also noted. No No acute fractures are present. Biapical scarring. No soft tissue abnormality is present. The airway is patent. Impression: Degenerative disease, without acute fracture. Reviewed, dictated and finalized at location [facility]. Impression: Degenerative disease, without acute fracture.
[2024-06-16 07:46] VITALS: BP 127/81; PULSE 86; RESP 11; TEMP 36.3; O2SAT 97
--- NOTE | 2024-06-16 09:18 | ED.FALL ---
HPI - Fall General Chief Complaint: Fall Stated Complaint: fall Time Seen by Provider: 06/16/24 09:01 History of Present Illness HPI Narrative: 69-year-old female with history of AFib on Eliquis, hypertension, diabetes, CHF presents to the ED via EMS from [facility] after falling out of bed this morning. Patient states she was having a dream and was dreaming that she was somewhere else, attempted to get out of bed and fell on her right side out of bed. She states nursing staff was immediately at bedside to help her up. She did hit her head but did not lose consciousness. She is reporting mild pain to the left forehead but states this is improving. Also reporting some soreness to her lower back and posterior right hip. She denies neck pain, chest wall pain, abdomen pain or other injuries acquired. 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 Also notes chronic fecal incontinence which is unchanged from baseline. Denies bladder incontinence/retention or saddle anesthesia. Related Data Home Medications ?Medication ?Instructions ?Recorded ?Confirmed ?Last Taken ?Type rosuvastatin 20 mg tablet 20 mg PO DAILY 01/01/23 03/27/24 03/26/24 History apixaban 5 mg tablet (Eliquis) 5 mg PO Q12H 03/27/24 03/27/24 03/26/24 History Allergies Allergy/AdvReac Type Severity Reaction Status Date / Time No Known Allergies Allergy Verified 03/27/24 11:06 Review of Systems Review of Systems: All systems reviewed & are unremarkable except as noted in HPI and below PMFSH Past Medical History Medical History Acute hypoxic respiratory failure Atrial fibrillation with RVR Septic shock RSV (respiratory syncytial virus pneumonia) Malnutrition Atrial fibrillation History of endometrial cancer Sleep apnea does not use CPAP High cholesterol Diabetes Hypertension Surgical History Surgical History History of total hysterectomy (~2018) History of cholecystectomy (~1998) History of 1977, 1983, 1990 Family History Family History Mother Uterine cancer Daughter Thyroid cancer Sibling Spinal cord cancer Social History Social History Social History: Patient lives at home with her . No pets in the home. Smoking status: Never smoker Alcohol intake: current Alcohol use details: occasional. Less than once a month. Substance use: never Substance use type: does not use Do You Feel Safe in your Home?: Yes Lack of Transportation: No Lack of Food: Never True Current Housing: I Have Housing Concerned About Future Housing: No Difficulty Paying Gas/Electric Bills: No Difficulty Paying for Meds: YES Currently Unemployed: No Education: Trade/Vocational Certificate Difficulty w/ Childcare or Family Care: No Living arrangements: with family Spiritual care concerns: No Exam Narrative: GENERAL: Well-appearing, well-nourished, and in no acute distress. Morbidly obese HEAD: Normocephalic, atraumatic. EYES: PERRLA and EOMI. ENT: Nares clear, no rhinorrhea or epistaxis. NECK: Supple. No midline cervical spinous tenderness, crepitus, step-offs or deformities BACK: No thoracic spinous tenderness, crepitus, step-offs or deformities. Mild tenderness to the lumbar spine and over the posterior right hip with no overlying skin changes CHEST: Clear to auscultation. No respiratory distress. No tenderness to chest wall HEART: Regular rate and rhythm. No murmur heard. Normal peripheral pulses. ABDOMEN: Soft, nontender, nondistended, normal active bowel sounds. G-tube in left upper quadrant with no surrounding erythema warmth or tenderness. No chemosis skin changes to abdomen EXTREMITIES: Mild tenderness to posterior right hip with no overlying skin changes, full passive motion. Limited active range of motion due to proximal weakness which is chronic per patient. No saddle anesthesia. Patient able to wiggle toes. No tenderness remainder of upper or extremities. Strength 2/5 to LUE which is also chronic per patient and unchanged SKIN: Warm, dry, no rash. NEURO: Alert and oriented x4 - see extremity exam Course Vital Signs Vital signs: Vital Signs Temperature 97.4 F L 06/16/24 07:46 Pulse Rate 86 06/16/24 07:46 Respiratory Rate 11 L 06/16/24 07:46 Blood Pressure 127/81 06/16/24 07:46 Pulse Oximetry 97 06/16/24 07:46 Oxygen Delivery Room Air 06/16/24 07:46 Temperature 97.4 F L 06/16/24 07:46 Pulse Rate 89 06/16/24 12:42 Respiratory Rate 20 06/16/24 12:42 Blood Pressure 138/84 06/16/24 12:42 Pulse Oximetry 100 06/16/24 12:42 Oxygen Delivery Room Air 06/16/24 07:46 MDM - Fall MDM Narrative Medical decision making narrative: 69-year-old female with history of AFib on Eliquis and chronic paralysis to the left upper extremity and lower extremities he presents to the emergency department for a fall that occurred prior to arrival. Patient was lying in bed and having a drain which she thought she was some are all send rolled out of bed. She did hit her head but did not lose consciousness. She is immediately helped by staff at the rehab facility. She is endorsing some pain to the left forehead which appears atraumatic, lower back and posterior right hip. Patient has no new neurologic deficits. CT brain shows no acute intracranial abnormality, sinus disease is present in the ethmoid sinuses. Patient has had some congestion for the past couple of days. No fevers. CT cervical spine shows degenerative disease without acute fracture. X-ray of the right hip shows degenerative disease without acute fracture or dislocation. CT lumbar shows degenerative disease without acute compression fracture. There is evidence of significant bladder distention causing hydroureteronephrosis of the visualized left kidney and ureter. Given CT lumbar findings, workup brought in to include lab work CT abdomen pelvis. A bladder scan was performed which showed >1000cc of urine. Patient did not have the urge to void and a Can catheter was placed for acute urinary retention. 1000 cc of urine drained from the bladder. She does endorse a history of urinary tension and had Can catheter removed several weeks ago. Patient to be sent home with leg bag and follow up with urologist. Additional UA with +leuk esterase, 11-20 wbc's. She is endorsing some dysuria so will treat for UTI with Keflex. CBC without leukocytosis. Chemistries with normal renal function. CT abdomen pelvis shows a decompressed urinary bladder with Can catheter in place, no hydronephrosis, 3 mm nonobstructing right renal stone. There is fecal impaction/constipation with stercoral proctitis. Percutaneous gastrotomy tube balloon the be external to the gastric lumen that this may be artifactual in appearance and recommendations for clinical correlation with G-tube function. Patient and daughter who is at bedside updated on results. Patient has not used her G-tube in several weeks. She is requesting follow-up for GI to have it removed. This was provided. It is functioning in the ED today. Additionally, attempted fecal disimpaction however stool is soft in the rectum. Will provide MiraLax. Advised follow-up with PCP discussed return precautions. She is agreeable with the plan verbalized understanding. Discharged in stable condition. Lab Data 06/16/24 12:38 06/16/24 12:38 Labs: Lab Results 06/16/24 06/16/24 Range/Units 11:51 12:38 WBC 8.3 (4.5-10.0) K/mm3 RBC 3.33 L (4.2-5.4) M/mm3 Hgb 10.5 L (12.0-15.0) g/dL Hct 34.0 L (37.0-47.0) % MCV 102.1 H (80-100) fl MCH 31.5 (26-34) pg MCHC 30.9 L (32-36) g/dl RDW 16.4 H (11.5-14.5) % Plt Count 281 (150-375) k/mm3 MPV 9.3 (7.4-10.4) fl Immature Gran % (Auto) 1.2 H (0-0.5) % Neut % (Auto) 86.0 H (45.5-73.1) % Lymph % (Auto) 7.0 L (18.3-44.2) % Foard % (Auto) 5.5 (2.6-8.5) % Eos % (Auto) 0.1 (0-4.4) % Baso % (Auto) 0.2 (0.2-1.2) % Lymph # (Auto) 0.58 L (0.9-3.2) K/mm3 Foard # (Auto) 0.5 (0.1-0.6) K/mm3 Eos # (Auto) 0.0 (0-0.3) K/mm3 Baso # (Auto) 0.0 (0.0-0.1) K/mm3 Abs Immat Gran (auto) 0.10 H (0.00-0.031) K/mm3 Absolute Neuts (auto) 7.2 H (1.3-6.7) K/mm3 Absolute Nucleated RBC 0.000 (0.0-0.012) K/mm3 Nucleated RBC % 0.0 (0.0-0.2) % Sodium 139 (137-145) mmol/L Potassium 4.7 (3.4-5.0) mmol/L Chloride 108 H (98-107) mmol/L Carbon Dioxide 21 L (22-30) mmol/L Anion Gap 10 (4-12) mmol/L BUN 33 H D (7-17) mg/dL Creatinine 0.84 (0.7-1.0) mg/dL Estim Creat Clear Calc 79 ml/min Estimated GFR > 60 (59 - ) Glucose 129 H (65-110) mg/dL Calcium 8.7 (8.4-10.2) mg/dL Total Bilirubin 0.6 (0.2-1.3) mg/dL AST 16 (14-36) U/L ALT 23 (6-35) U/L Alkaline Phosphatase 72 (38-126) U/L Total Protein 6.0 L (6.3-8.2) g/dL Albumin 3.3 L (3.5-5.1) g/dL Urine Color Yellow (Yellow) Urine Appearance Clear (Clear) Urine pH 5.0 (5.0-9.0) Ur Specific [place] 1.019 (1.001-1.035) Urine Protein Negative (Negative) mg/dL Urine Glucose (UA) Negative (Negative) mg/dL Urine Ketones Trace H (Negative) mg/dL Ur Blood (Man) 2+ H (Negative) Urine Nitrate Negative (Negative) Urine Bilirubin Negative (Negative) Urine Urobilinogen 0.2 (<2.0) mg/dL Add Ur Microanalysis Reviewed Leukocyte Esterase Rfl 1+ H (Negative) SKYLAR/UL Urine RBC 6-10 H (0-2) /hpf Urine WBC 11-20 H (0-3) /hpf Ur Squamous Epith Cells None seen (Few) /hpf Urine Bacteria None seen /hpf Urine Casts 0-2 Discharge Plan Discharge Clinical Impression: Acute urinary retention, Abnormal urinalysis Constipation Qualifiers: Constipation type: unspecified constipation type Qualified Code(s): K59.00 - Constipation, unspecified Head injury Qualifiers: Encounter type: initial encounter Qualified Code(s): S09.90XA - Unspecified injury of head, initial encounter Patient Disposition: [facility]As[facility] Living Condition: Stable Instructions: Antibiotic Form, Can Catheter Placement and Care (ED), Acute Urinary Retention in Women (ED), How to Change a Catheter Drainage Bag (DC) Additional Instructions: Please follow-up with the urologist and GI provider as discussed. Take the MiraLax as directed. Take your antibiotics as directed for UTI. Return to the emergency department if you develop vision changes, focal numbness or weakness, fever or other concerning symptoms. Patient Language: Greek Prescriptions: New cephalexin 500 mg capsule 500 mg PO Q6H Qty: 28 0RF polyethylene glycol 3350 17 gram/dose powder 17 g PO DAILY Qty: 119 0RF No Action rosuvastatin 20 mg tablet 20 mg PO DAILY Eliquis 5 mg tablet 5 mg PO Q12H docosanol [Abreva] 10 % Cream 1 applic topical 5 TIMES DAILY Qty: 1 0RF acetaminophen 325 mg Tablet 650 mg PO Q4H PRN (Reason: Mild Pain (1-3) Or Fever) Qty: 30 0RF insulin glargine [Lantus U-100 Insulin] 100 unit/mL Solution 28 unit subcut DAILY Qty: 30 0RF polyethylene glycol 3350 [Miralax] 17 gram Powder In Packet 17 g PO QAM PRN (Reason: Constipation) Qty: 30 0RF amiodarone [Pacerone] 200 mg Tablet 400 mg PO DAILY Qty: 30 0RF cefepime 2 gram Recon Soln 2 g IV PRN PRN (Reason: AFTER DIALYSIS) Qty: 14 0RF sennosides-docusate sodium [Senokot-S] 8.6-50 mg Tablet 1 tab PO HS Qty: 30 0RF dextrose [Glutose-15] 40 % Gel 15 g PO PRN PRN (Reason: Hypoglycemia) Qty: 30 0RF pantoprazole [Protonix] 40 mg Recon Soln 40 mg IV PUSH DAILY Qty: 30 0RF insulin aspart U-100 [Novolog U-100 Insulin aspart] 100 unit/mL Solution 4 - 8 unit subcut Q4HR Qty: 30 0RF Protocol: Insulin Corrective High-Dose Condition: glucose < 70 mg/dl Dose/Route: Follow hypoglycemia order Condition: glucose 70-200 mg/dl Dose/Route: No additional insulin Condition: glucose 201-250 mg/dl Dose/Route: 4 units sub-Q Condition: glucose 251-300 mg/dl Dose/Route: 5 units sub-Q Condition: glucose 301-350 mg/dl Dose/Route: 6 units sub-Q Condition: glucose 351-400 mg/dl Dose/Route: 8 units sub-Q Condition: glucose > 400 mg/dl Dose/Route: Call MD bisacodyl 10 mg Suppository 10 mg RECTAL QAM PRN (Reason: Constipation) Qty: 30 0RF metoprolol tartrate 50 mg Tablet 50 mg PO Q12HR Qty: 30 0RF Follow-up/Referrals: Kirk,Walt Lord MD [Primary Care Provider] - Ian Nascimento MD [Physician] - Umer Kee MD [Physician] -
--- OUTSIDE RECORDS SUMMARY | 2024-06-16 09:29 | XMS_ITS | Data Portability ---
Author Organization [facility], Main Office Address [address] [place] [address] Care Team Providers Care Napkin Machine Operator Name Role Phone LÓPEZ KIRK Primary Care Provider [phone] LÓPEZ KIRK Referring Provider LEOBARDO HERR Quarter Lining Smoother DORIAN CARBAJAL Ada Accommodation Consultant BRODIE HARRISON At Home Independent Call Center Agent Assessment Encounter Date Assessment Date Assessment LastModified by Organization Details LastModified Time 10/12/2023 10/12/2023 This note is dictated and transcribed by [employer]. Learning Designer variances may occur. Despite proofreading, typographical errors may occur. Occasional wrong-word or 'nydej-f-gasv' substitutions may have occurred due to the inherent limitations of voice recording. Read the chart carefully and recognize, using context, where substitutions have occurred. Not available 10/12/2023 15:43:25 01/11/2024 01/11/2024 This note is dictated and transcribed by [employer]. Learning Designer variances may occur. Despite proofreading, typographical errors may occur. Occasional wrong-word or 'cmbyy-v-ngby' substitutions may have occurred due to the inherent limitations of voice recording. Read the chart carefully and recognize, using context, where substitutions have occurred. Not available 01/11/2024 15:44:04 Plan of Treatment Reminders Order Date Submit Date Provider Last Modified By Organization Details Last Modified Time Details Appointments None record ed. Lab None record ed. Referral None record ed. Procedures None record ed. Surgeries None record ed. Imaging None record ed. Medication Orders None record ed. Patient TargetsNo targets recorded. Patient Instructions Encounter Date Encounter Id Patient Instructions Last Modified By Organization Details Last Modified Time 09/09/2023 [id number] Follow-up hypertension, hyperlipidemia, type 2 diabetes, history [...] with voice recognition software. Occasional wrong-word or ntmea-t-vxij substitutions may have occurred due to the inherent limitations of voice recognition software. Read the chart carefully and recognize, using context, where substitutions have occurred. [email or web address] Not available 09/09/2023 16:55:56 01/11/2024 [id number] diabetes foot health: care instructions Not available 01/11/2024 15:44:38 03/16/2024 [id number] Follow-up for essential hypertension persistent atrial fibrillation, [...] with voice recognition software. Occasional wrong-word or xiquw-a-ccdo substitutions may have occurred due to the inherent limitations of voice recognition software. Read the chart carefully and recognize, using context, where substitutions have occurred. Created: López Kirk M.D. 03.16.2024 04:14 PM [email or web address] Not available 03/16/2024 17:15:03 Reason for Referral None Reported. Results Created Date Observation Date Name Description Value Unit Range Abnormal Flag Note LastModifiedBy Organization Detail LastModifiedTime 03/27/19 25 03/26/2024 XR, chest No observ ation record ed. [id number] [facility] [address], [place], [address], 03/28/2024 15:19:08 03/27/19 25 03/27/2024 CT, chest , w/ contr ast No observ ation record ed. [address], [place], [address], 03/28/2024 16:50:40 03/27/19 25 03/27/2024 CT, brain , w/o contr ast No observ ation record ed. [address], [place], [address], 03/28/2024 16:51:02 03/28/19 25 03/28/2024 XR, chest , 1 view No observ ation record ed. [address], [place], [address], 03/28/2024 08:26:46 03/28/19 25 03/28/2024 XR, chest No observ ation record ed. [address], [place], [address], 04/15/2024 14:36:03 03/28/1903/28/2024 XR, chest , 1 view No observ ation record ed. [address], [place], [address], 03/28/2024 17:27:34 03/29/1903/28/2024 CT, brain , w/o contr ast No observ ation record ed. [address], [place], [address], 03/29/2024 08:35:09 03/29/1903/29/2024 XR, chest No observ ation record ed. [address], [place], [address], 03/29/2024 08:35:30 03/29/19 25 03/29/2024 gastr ostom y tube manag ement * No observ ation record ed. [address], [place], [address], 03/29/2024 10:15:50 03/29/19 25 03/29/2024 US, echoc ardio gram No observ ation record ed. [address], [place], [address], 03/29/2024 21:25:19 03/30/19 25 03/30/2024 XR, chest , 1 view No observ ation record ed. [address], [place], [address], 03/30/2024 08:33:59 03/31/19 25 03/31/2024 XR, chest No observ ation record ed. [email or web address] [address], [place], [address], 04/15/2024 14:36:13 03/31/19 25 03/31/2024 US, renal No observ ation record ed. [address], [place], [address], 03/31/2024 17:02:03 03/31/19 25 03/31/2024 US, abdom en No observ ation record ed. [address], [place], [address], 03/31/2024 17:03:09 04/01/19 25 04/01/2024 XR, chest No observ ation record ed. [address], [place], [address], 04/01/2024 08:40:17 04/03/19 25 04/03/2024 XR, chest No observ ation record ed. [address], [place], [address], 04/03/2024 10:20:29 04/04/19 25 04/04/2024 XR, chest , 1 view No observ ation record ed. [address] [address], [place], [address], 04/04/2024 08:54:02 04/05/19 25 04/05/2024 XR, chest No observ ation record ed. [address] [address], [place], [address], 04/15/2024 15:09:58 04/06/19 25 04/06/2024 XR, chest , 1 view No observ ation record ed. [address] [address], [place], [address], 04/06/2024 09:03:41 04/07/19 25 04/07/2024 XR, chest No observ ation record ed. [address] [address], [place], [address], 04/15/2024 15:10:07 04/08/19 25 04/08/2024 XR, chest No observ ation record ed. [address] [address], [place], [address], 04/15/2024 15:10:29 04/09/19 25 04/09/2024 XR, chest No observ ation record ed. [address] [facility], [place], [address], 04/09/2024 15:32:26 04/10/19 25 04/10/2024 XR, chest No observ ation record ed. [address], [address], 04/15/2024 15:10:46 04/11/19 25 04/11/2024 XR, chest No observ ation record ed. [email or web address] [address], [place], [address], 04/15/2024 15:13:59 04/12/19 25 04/12/2024 XR, chest No observ ation record ed. [address] [address], [place], [address], 04/12/2024 08:20:05 04/13/19 25 04/13/2024 XR, chest , 1 view No observ ation record ed. [address] [address], [place], [address], 04/13/2024 08:08:30 04/13/19 25 04/13/2024 fluor oscop y (PROC ) No observ ation record ed. [address] [address], [place], [address], 04/15/2024 15:14:21 04/13/19 25 04/13/2024 XR, chest No observ ation record ed. [address] [address], [place], [address], 04/15/2024 15:14:29 04/14/19 25 04/14/2024 XR, chest No observ ation record ed. [address] [address], [place], [address], 04/15/2024 15:14:40 04/15/19 25 04/15/2024 XR, chest No observ ation record ed. [address] [address], [place], [address], 04/15/2024 08:12:12 04/16/19 25 04/16/2024 XR, chest No observ ation record ed. [address], [address], 04/16/2024 09:38:12 04/17/19 25 04/17/2024 XR, chest No observ ation record ed. [address], [address], 04/17/2024 10:39:20 04/18/19 25 04/18/2024 XR, chest No observ ation record ed. [address], [place], [address], 04/18/2024 07:54:10 04/18/19 25 04/18/2024 CT, brain , w/o contr ast No observ ation record ed. [address], [place], [address], 04/18/2024 13:48:45 06/17/19 25 06/16/2024 CT, brain , w/o contr ast No observ ation record ed. [address], [place], [address], 06/16/2024 09:35:11 06/17/19 25 06/16/2024 CT, cervi kristy spine , w/o contr ast No observ ation record ed. [address], [place], [address], 06/16/2024 09:42:55 Result Notes None recorded. Problems Name Problem SNOMED Code Status Onset Date Resolution Date Notes Provider Name and Address Organization Details Recorded Time Benign essential hypertensi on 2549701 Active Not Available [facility] 3 05:58:37 Abscess of breast 51159006 Active 2021 Not Available [facility] 3 05:58:37 Type 2 diabetes mellitus without complicati on 355472860 Active 2019 Not Available [facility] 3 05:58:37 History of polyp of colon 569488995 Active 2018 Not Available [facility] 3 05:58:37 Cellulitis of lower limb 808458373 Active 2021 Not Available [facility] 3 05:58:37 Atrial fibrillati on 14178107 Active Not Available [facility] 3 05:58:38 Obstructiv e sleep apnea syndrome 75498228 Active 2020 Not Available [facility] 3 05:58:38 Primary malignant neoplasm of endometriu m 37580369 Active 2018 Not Available [facility] 3 05:58:38 Obese class III 222494060 Active 2022 López Kirk MD [address], [place], [address] , [facility] 3 16:53:29 Dystrophia unguium 85494869 Active 2022 Brodie Harrison DPM [address], [address], [place], [address] , [facility] 3 15:43:27 Metatarsal vanessa of right foot 4345684249852 00 Active 2022 Brodie Harrison DPM [address], [address], [place], [address] , [facility] 3 15:43:53 Localized, primary osteoarthr itis of the ankle and/or foot 135296785 Active 2022 Brodie Harrison DPM [address], [address], [place], [address] , [facility] 3 15:43:59 Hyperlipid emia 62948228 Active 2023 López Kirk MD [address], [address], [place], [address] , [facility] 4 17:16:47 Pruritic rash 96738827 Active 2023 López Kirk MD [address], [address], [place], [address] , [facility] 4 17:32:10 Tinea corporis 59657730 Active 2023 López Kirk MD [address], [address], [place], [address] , [facility] 4 17:32:38 Hammer toe 616773896 Active 2023 Brodie Harrison DPM [address], [address], [place], [address] , [facility] [employer] [facility] 4 17:09:11 Hyperglyce mindi 51639522 Active 2023 Britanyleigh Contreras, CONSTRUCTION SITE MANAGER null, [place] [employer] [facility] 4 16:00:39 Metatarsal vanessa 87292114 Active 2023 Brodie Harrison DPM [address], [place], [address] , [facility] 4 16:01:24 Bilateral plantar fasciitis 9171967665835 9108 Active 2023 Brodie Harrison DPM [address], [place], [address] , [facility] 4 15:44:02 Problem Notes None recorded. Procedures Surgical History Date Name Laterality Status Provider Name and Address Organization Details Recorded Time 01/11/20 Nail Debridement completed Brodie Harrison DPM [address], [place], [address], [facility] [employer] [facility] 01/11/2024 15:43:51 10/12/19 24 Nail Debridement completed Brodie Harrison DPM [address], [place], [address], [facility] [employer] [facility] 10/12/2023 15:43:14 09/30/19 24 Chronic care management services completed Leobardo Herr RN [facility] 09/30/2023 11:23:48 08/25/19 24 Chronic care management services completed Leobardo Herr RN [place] [employer] [facility] 08/25/2023 15:43:45 07/24/19 24 Chronic care management services completed Leobardo Herr RN [facility] 07/29/2023 13:23:59 07/09/19 24 Nail Debridement completed [address], [place], [address], [employer] 07/09/2023 16:00:40 04/09/19 24 Nail Debridement completed Brodie Harrison DPM [address], [place], [address], [employer] [facility] 04/21/2023 09:22:18 03/18/19 24 Medicare Wellness CPT Code, subsequent completed Gena Ngo RN [place] [employer] [facility] 03/18/2023 17:05:17 12/16/19 23 Nail Debridement completed Brodie Harrison DPM [address], [place], [address], [employer] [facility] 12/15/2022 15:43:16 01/01/20 21 Date of Last Colonoscopy completed Not Available [facility] 04/30/2022 05:53:31 Imaging Results Imaging Date Name Status LastModified by Organization Details LastModified Time 03/26/2024 XR, chest completed [address], [address], 03/28/2024 15:19:08 03/27/2024 CT, chest, w/ contrast completed [address], [address], 03/28/2024 16:50:40 03/27/2024 CT, brain, w/o contrast completed [address], [address], 03/28/2024 16:51:02 03/28/2024 XR, chest, 1 view completed [address] [place] [address], [address], 03/28/2024 08:26:46 03/28/2024 XR, chest completed [address], [address], 04/15/2024 14:36:03 03/28/2024 XR, chest, 1 view completed [address] [address], [place], [address], 03/28/2024 17:27:34 03/28/2024 CT, brain, w/o contrast completed [address], [place], [address], 03/29/2024 08:35:09 03/29/2024 XR, chest completed [address] [address], [place], [address], 03/29/2024 08:35:30 03/29/2024 gastrostomy tube management* completed [address] [address], [place], [address], 03/29/2024 10:15:50 03/29/2024 US, echocardiogram completed [address] [address], [place], [address], 03/29/2024 21:25:19 03/30/2024 XR, chest, 1 view completed [address] [address], [place], [address], 03/30/2024 08:33:59 03/31/2024 XR, chest completed [email or web address] [place] [address], [place], [address], 04/15/2024 14:36:13 03/31/2024 US, renal completed [address] [address], [place], [address], 03/31/2024 17:02:03 03/31/2024 US, abdomen completed [address] [address], [place], [address], 03/31/2024 17:03:09 04/01/2024 XR, chest completed [address] [address], [place], [address], 04/01/2024 08:40:17 04/03/2024 XR, chest completed [address], [place], [address], 04/03/2024 10:20:29 04/04/2024 XR, chest, 1 view completed [address] [address], [place], [address], 04/04/2024 08:54:02 04/05/2024 XR, chest completed [address] [address], [place], [address], 04/15/2024 15:09:58 04/06/2024 XR, chest, 1 view completed [address] [address], [place], [address], 04/06/2024 09:03:41 04/07/2024 XR, chest completed [address] [address], [place], [address], 04/15/2024 15:10:07 04/08/2024 XR, chest completed [address] [address], [place], [address], 04/15/2024 15:10:29 04/09/2024 XR, chest completed [address] [address], [place], [address], 04/09/2024 15:32:26 04/10/2024 XR, chest completed [address] [address], [place], [address], 04/15/2024 15:10:46 04/11/2024 XR, chest completed [address] [address], [place], [address], 04/15/2024 15:13:59 04/12/2024 XR, chest completed [address] [address], [place], [address], 04/12/2024 08:20:05 04/13/2024 XR, chest, 1 view completed [address] [address], [place], [address], 04/13/2024 08:08:30 04/13/2024 fluoroscopy (PROC) completed [address] [address], [place], [address], 04/15/2024 15:14:21 04/13/2024 XR, chest completed [address] [address], [place], [address], 04/15/2024 15:14:29 04/14/2024 XR, chest completed [address] [address], [place], [address], 04/15/2024 15:14:40 04/15/2024 XR, chest completed [address] [address], [place], [address], 04/15/2024 08:12:12 04/16/2024 XR, chest completed [address] [address], [place], [address], 04/16/2024 09:38:12 04/17/2024 XR, chest completed [address] [address], [place], [address], 04/17/2024 10:39:20 04/18/2024 XR, chest completed [address] [address], [place], [address], 04/18/2024 07:54:10 04/18/2024 CT, brain, w/o contrast completed [address] [address], [place], [address], 04/18/2024 13:48:45 06/16/2024 CT, brain, w/o contrast completed [address], [place], [address], 06/16/2024 09:35:11 06/16/2024 CT, cervical spine, w/o contrast completed [address], [place], [address], 06/16/2024 09:42:55 Procedure Notes None recorded. Medical Equipment None Reported. Allergies Allergen ID Allergen Name Allergen Category Reaction Reaction Severity Criticality Documentation Date Start Date Code Code System Note Provider Name and Address Organization Details Recorded Time 04425 lisinopri l medicatio n cough Not available Not available 04/30/2022 71284 RxNorm Not Available [facility] 3 06:05:25 79363 Diovan medicatio n cough Not available Not available 04/30/2022 69472 2 RxNorm Not Available [facility] 3 06:05:25 Medications Name Sig Start [...] Not Available Not Available No t Available atorvastati n 20 mg tablet TAKE 1 [...] Updated DateTime 4 177.8 cm 47.1 kg/m2 149130. 3 g 93 /min 97.5 [degF] 96 % 96 % 126 mm[Hg] 80 mm[Hg] NESHA Hoff [facility] [employer] [facility] 4 16:31:48 Date Recorded Body height Systolic blood pressure Diastolic blood pressure Provider Name and Address Organization Details Last Updated DateTime 09/30/2023 177.8 cm 126 mm[Hg] 80 mm[Hg] Leobardo Herr RN [facility] [employer] [facility] 09/30/2023 10:59:12 Date Recorded Body height Body mass index (BMI) Body weight Heart rate Respiratory rate Body temperature Oxygen saturation Oxygen saturation in Arterial blood by Pulse oximetry Systolic blood pressure Diastolic blood pressure Provider Name and Address Organization Details Last Updated DateTime 4 177.8 cm 47.1 kg/m2 096696. 3 g 68 /min 14 /min 97.6 [degF] 96 % 96 % 120 mm[Hg] 80 mm[Hg] Lucie Bustos [facility] [employer] [facility] 4 15:11:47 Date Recorded Body height Body mass index (BMI) Body weight Heart rate Respiratory rate Oxygen saturation Oxygen saturation in Arterial blood by Pulse oximetry Systolic blood pressure Diastolic blood pressure Provider Name and Address Organization Details Last Updated DateTime 4 177.8 cm 47.1 kg/m2 323820. 3 g 89 /min 14 /min 98 % 98 % 114 mm[Hg] 75 mm[Hg] Lorraine Fowler [facility] [employer] [facility] 4 14:59:55 Date Recorded Body height Body mass index (BMI) Body weight Heart rate Body temperature Oxygen saturation Oxygen saturation in Arterial blood by Pulse oximetry Systolic blood pressure Diastolic blood pressure Provider Name and Address Organization Details Last Updated DateTime 5 177.8 cm 45.8 kg/m2 797193. 97 g 76 /min 97 [degF] 96 % 96 % 140 mm[Hg] 100 mm[Hg] Kareen Joseph [place] [facility] [place] [employer] 5 16:47:50 Social History Question Answer Notes LastModified by Organization Details LastModified Time Tobacco Smoking Status Never Smoker Not Available [facility] 04/30/2022 05:52:58 Do You Have An Advance Directive? No Info Given [id number] Information not available 04/30/2022 What Is Your Level Of Alcohol Consumption? Occasional Maybe Twice A Year MIGRATION.300 [id number] Information not available 04/30/2022 Are You Blind Or Do You Have Difficulty Seeing? 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 No MIGRATION.300026 Information not available 04/30/2022 What Type Of Diet Are You Following? REGULAR [id number].[id number] Information not available 04/30/2022 What Is The Highest Grade Or Level Of School You Have Completed Or The Highest Degree You Have Received? DM88106-2 Information not available 07/29/2023 What Is Your [...] Family Or Social Situation? Yes Son's Divorce [email or web address] Information not available 03/18/2023 What Is The Fluoride Status Of Your Home? Unknown MIGRATION.0301 [id number] Information not available 04/30/2022 Are There Any Guns Present In Your Home? Yes MIGRATION.0301 [id number] Information not available 04/30/2022 Do You Use Insect Repellent Routinely? Yes MIGRATION.0301 [id number] Information not available 04/30/2022 Where Do You Live? [facility] MIGRATION.0301 [id number] Information not available 04/30/2022 Guns Present In The Home? Yes [email or web address] Information not available 03/18/2023 Are You Able To Care For Yourself? Yes [email or web address] Information not available 03/18/2023 Are You Blind Or Do Yo Have Difficulty Seeing? No [email or web address] Information not available 03/18/2023 Are You Deaf Or Do You Have Serious Difficulty Hearing? No [email or web address] Information not available 03/18/2023 Live Alone Of With Others? With Others [email or web address] Information not available 03/18/2023 Do You Have A Medical Power Of Silo Tender? No MIGRATION.0301 059784 Information not available 04/30/2022 What Was The Date Of Your Most Recent Tobacco Screening? 03/18/2023 [email or web address] Information not available 03/18/2023 Do You Have Any Pets? No MIGRATION.0301 971007 Information not available 04/30/2022 What Is Your Relationship Status? MIGRATION.0301 746000 Information not available 04/30/2022 Do You Use Your Seat Belt Or Car Seat Routinely? Yes MIGRATION.0301 [id number] Information not available 04/30/2022 Are You Sexually Active? Yes Information not available 07/29/2023 Do You Have Smoke And Carbon Monoxide Detectors In Your Home? Yes MIGRATION.0301 [id number] Information not available 04/30/2022 Are You Passively Exposed To Smoke? No MIGRATION.0301 054768 Information not available 04/30/2022 Are There Any Smokers In Your House? No MIGRATION.0301 691425 Information not available 04/30/2022 Do You Feel Stressed (tense, Restless, Nervous, Or Anxious, Or Unable To Sleep At Night)? [id number] Information not available 07/29/2023 Do You Use Sunscreen Routinely? Yes MIGRATION.0301 308901 Information not available 04/30/2022 Have You Recently Traveled Abroad? No MIGRATION.0301 [id number] Information not available 04/30/2022 Do You Have Any Dietary Restrictions? No MIGRATION.0301 194297 Information not available 04/30/2022 Sex: Female Functional Status Question Answer Note LastModified by Organizat ion Details LastModified Time Do you have difficulty walking or climbing stairs? No MIGRATION.23902 55839 Information not available 04/30/2022 Do you have transportation difficulties? No MIGRATION.18753 05229 Information not available 04/30/2022 Are you able to walk? YESWOREST sometimes uses a cane MIGRATION.17757 62327 Information not available 04/30/2022 Do you have difficulty doing errands alone? No MIGRATION.27535 93519 Information not available 04/30/2022 Are you able to care for yourself? Yes MIGRATION.52556 08376 Information not available 04/30/2022 Do you have difficulty dressing or bathing? No MIGRATION.26473 85445 Information not available 04/30/2022 What is your exercise level? Occasional Information not available 07/29/2023 Mental Status Question Answer Note LastModified by Organizat ion Details LastModified Time Do you have difficulty concentrating, remembering or making decisions? No MIGRATION.[id number] 6 Information not available 04/30/2022 Family History [...] DISEASE/DISORDER N HISTORY OF DRUG ABUSE N COPD N RADIATION / CHEMOTHERAPY N Other # 2 N BLOOD DISEASES [...] HAVE YOU BEEN HOSPITALIZED OR SEEN IN [facility] IN THE PAST YEAR ? N ATHEROSCLEROSIS [...] (COVID-19) vaccine, UNSPECIFIED 1 completed Not Available [facility] 04/30/2022 06:05:15 SARS-COV-2 (COVID-19) vaccine, UNSPECIFIED 1 completed Not Available [facility] 04/30/2022 06:05:15 pneumococcal polysaccharide PPV23 2 completed Not Available [facility] 04/30/2022 06:05:15 Influenza, high-dose, quadrivalent, PF 0 completed Not Available [facility] 04/30/2022 06:05:15 Pneumococcal conjugate PCV 13 0 completed Not Available [facility] 04/30/2022 06:05:16 Past Encounters Encounter ID Performer Location Encounter Start Date Encounter Closed Date Diagnosis/Indication Diagnosis SNOMED-CT Code Diagnosis ICD10 Code Diagnosis Note [id number] [facility] [address] [address] 08/06/2020 00:00:00 08/06/2020 17:47:35 [id number] [facility] [address] [address] 02/04/2021 00:00:00 02/04/2021 17:47:05 [id number] [facility] [address] [place] [address] [address] 08/28/2021 00:00:00 08/28/2021 17:09:13 [id number] [facility] [address] [place] [address] [address] 02/26/2022 00:00:00 02/26/2022 17:26:53 [id number] López Kirk MD [facility] [address] [place] [address] [address] 09/10/2022 16:40:45 09/10/2022 17:01:27 Benign essential hypertension 3918591 I10 Type 2 carl betes mellitus without complication 416048187 E11.9 History of polyp of colon 931363727 Z86.010 Obese class III 07055840 5 E66.01 [id number] Brodie Harrison DPM [facility] [place] [address] [place] [address] 12/15/2022 15:04:11 12/15/2022 16:03:11 Type 2 diabetes mellitus without complication 530539115 E11.9 Continue diabetic care per PCP Dystrophia unguium 66536 009 L60.3 Nails 1 through 10 were debrided with sharp mechanical debridemen t without incident. Nails were debrided and greater than 50% length and thickness where needed. Metatarsal vanessa of right foot [id number] 90605 M77.41 as above Localized, primary osteoarthritis of the ankle and/or foot 627183317 M19.079 dorsal midfootedu cated on shoe gear and orthoticsr ecommend Powerstep [place] plus met [id number] López Kirk MD [facility] Internal Med [place] 24 [address] [facility] 24 [place] [address] 03/18/2023 16:49:28 03/18/2023 17:28:03 Adult health examination 741099322 Z00.00 Screening for disorder 556997682 Z13.9 Benign ess ential hypertension 7119969 I10 Atrial fibrillation 4943 6004 I48.91 Obstructiv e sleep apnea syndrome 59022491 G47.33 Type 2 carl betes mellitus without complication 227986792 E11.9 Hyperlipidemia 69077402 E78.5 Obese class III 58454155 5 E66.01 [id number] Brodie Harrison DPM [facility] [place] [address] [place] [address] 04/09/2023 16:55:16 04/21/2023 10:22:05 Dystrophia unguium 56212907 L60.3 Nails 1 through 10 were debrided with sharp mechanical debridemen t without incident. Nails were debrided and greater than 50% length and thickness where needed. Metatarsal vanessa of right foot 9631618153 53247 M77.41 improved with shoes and orthoticso nly occasional painpain mostly secondary to hammertoes denies surgery at this time Hammer toe 328778481 M20 .40 as aboveofflo ading and supportive shoe and orthotics [id number] Brodie Harrison DPM [facility] Podiatry [place] [address] [place] [address] 07/09/2023 15:28:45 07/09/2023 16:09:38 Dystrophia unguium 69194406 L60.3 Nails 1 through 10 were debrided with sharp mechanical debridemen t without incident. Nails were debrided and greater than 50% length and thickness where needed. Hammer toe 948875213 M20 .40 as aboveofflo ading and supportive shoe and orthotics Metatarsalgia 45392636 M 77.41 M77.42 recommend orthotics and supportive shoe geardiscus sed increased paddingfol low-up in 1-2 months [id number] López Kirk MD [facility] Internal Med [facility] [address] [address] 07/24/2023 16:43:55 09/28/2023 10:15:06 Atrial fibrillation 70956668 I48.91 Not having any issues Hyperglycemia 51716571 R 73.9 does take Blood sugar at home Benign ess ential hypertension 4402274 I10 Takes BP 2-3 x/ mo [id number] López Kirk MD [facility] Internal Med [facility] [address] [address] 08/25/2023 15:28:49 08/27/2023 11:53:25 Atrial fibrillation 01520212 I48.91 Benign ess ential hypertension 6411741 I10 Hyperlipidemia 55340784 E78.5 Hyperglycemia 69079393 R 73.9 [id number] López Kirk MD [facility] Internal Med [facility] [address] [address] 09/09/2023 16:24:45 09/09/2023 16:58:24 Benign essential hypertension 0603919 I10 Hyperlipidemia 51792000 E78.5 Type 2 carl betes mellitus without complication 841651448 E11.9 History of polyp of colon 814361151 Z86.010 Obese class III 07128165 5 E66.01 [id number] López Kirk MD [facility] Internal Med [place] [address] [facility] 24 [place] [address] 09/30/2023 10:54:42 10/05/2023 10:17:09 Atrial fibrillation 89096493 I48.91 Benign ess ential hypertension 2616993 I10 Hyperlipidemia 12227898 E78.5 Type 2 carl betes mellitus without complication 659477825 E11.9 Obstructiv e sleep apnea syndrome 82031508 G47.33 [id number] Brodie Harrison DPM [facility] [place] [address] [place] [address] 10/12/2023 14:49:42 10/13/2023 13:39:23 Metatarsalgia 90918603 M77.41 M77.42 Improved with Powerstep orthoticsC ontinue supportive shoe gearFollow -up as needed Hammer toe 341238290 M20 .40 as aboveofflo ading and supportive shoe and orthotics Dystrophia unguium 26158 009 L60.3 Nails 1 through 10 were debrided with sharp mechanical debridemen t without incident. Nails were debrided and greater than 50% length and thickness where needed. [id number] Brodie Harrison DPM [facility] [place] [address] [place] [address] 01/11/2024 14:47:25 02/25/2024 15:39:57 Bilateral plantar fasciitis 5875642813 5102508 M72.2 stretching and icing instructio ns reviewedRe commend no strenuous activities Follow-up in 1 month Dystrophia unguium 54429 009 L60.3 Nails 1 through 10 were debrided with sharp mechanical debridemen t without incident. Nails were debrided and greater than 50% length and thickness where needed. Type 2 carl betes mellitus without complication 955224535 E11.9 Continue diabetic care per PCPfollow- up 3 months [id number] López Kirk MD [facility] [place] [address] [facility], [place] [address] [place] [address] 03/16/2024 16:31:30 03/16/2024 17:17:53 Benign essential hypertension 2255523 I10 Atrial fibrillation 4943 6004 I48.91 Hyperlipidemia 01861169 E78.5 Type 2 carl betes mellitus without complication 714942967 E11.9 Obese class III 23776176 5 E66.01 Goals Section Goal Description Progress Status Start Date LastModified by Organization Details LastModified Time Heart Healthy Diet Maintain a low sodium and low fat diet, restricting artificial sweetener use NoCranjit active 2023 Leobardo Herr RN Information not available 08/25/2023 19:24:56 Exercise Regularly Follows a regular exercise regimen or instructed exercise plan as per care team recommendation (s) NoCalexandra active 2023 Leobardo Herr RN Information not available 08/25/2023 19:24:56 Medication Regimen Follows medication regimen as per care team recommendation (s) Amanuel active 2023 Leobardo Herr RN Information not available 08/25/2023 19:24:56 Blood Pressure Maintains blood pressure goal as defined by care team Amanuel active 2023 Leobardo Herr RN Information not available 07/29/2023 17:05:17 Vital Signs Pt will be able to find a way to take blood pressure at least weekly and pulse daily NoCranjit active 2023 Leobardo Herr RN Information not available 07/29/2023 17:05:17 Blood Glucose Maintains blood glucose within target range NoChange active 2023 Leobardo Herr RN Information not available 09/30/2023 15:18:51 Food Security Reports ability to access and obtain foods to meet nutritional needs NoChange active 2023 Leobardo Herr RN Information not available 08/25/2023 19:26:31 Exercise Regularly Follows a regular exercise regimen or instructed exercise plan as per care team recommendation (s) Amanuel active 2023 Leobardo Herr RN Information not available 09/30/2023 15:18:51 Follow-up Appointmen t(s) Attends referral and/or follow-up appointment(s) as per care team recommendation (s) Amanuel active 2023 Leobardo Herr RN Information not available 09/30/2023 15:19:36 Smoking Cessation [facility] Leobardo Herr RN Information not available 08/25/2023 19:26:31 Activities of Daily Living Performs activities of daily living independently or with minimal assistance Amanuel active 2023 Leobardo Herr RN Information not available 08/25/2023 19:26:31 Medication Regimen Follows medication regimen as per care team recommendation (s) Amanuel active 2023 Leobardo Herr RN Information not available 09/30/2023 15:18:51 Decreased Alcohol Consumptio n Reports decreased alcohol consumption as per care team recommendation (s) Amanuel active 2023 Leobardo Herr RN Information not available 08/25/2023 19:26:32 Stroke/TIA Risk Reduction Reduces risk factors for [facility] Leobardo Herr RN Information not available 08/25/2023 19:26:32 Effective Coping Manages life events with effective coping methods [facility] active 2023 Leobardo Herr RN Information not available 08/25/2023 19:26:32 Chronic Disease Symptom Management Reports no new or worsening symptoms [facility] 2023 Leobardo Herr RN Information not available 09/30/2023 15:19:36 Vaccinatio n Status Remains up to date on vaccines as per care team recommendation (s) Leda active 2023 Leobardo Herr RN Information not available 08/25/2023 19:26:32 Heart Rate Control Achieves target heart rate as defined by care team Amanuel active 2023 Leobardo Herr RN Information not available 08/25/2023 19:26:32 Diet Adherence Follows prescribed or recommended diet [facility] active 2023 Leobardo Herr RN Information not available 09/30/2023 15:18:51 Fall Safety Reports no recent falls and/or fall [facility] 2023 Leobardo Herr RN Information not available 08/25/2023 19:26:33 Knowledge of Disease or Condition Demonstrates understanding of disease(s) or condition(s) [facility] 2023 Leobardo Herr RN Information not available 09/30/2023 15:19:36 Financial Stability Reports financial status and/or income meets needs [facility] Leobardo Herr RN Information not available 08/25/2023 19:26:33 Chronic Condition Action Plan Follows action plan for any worsening of chronic condition(s) as per care team recommendation (s) [facility] active 2023 Leobardo Herr RN Information not available 09/30/2023 15:19:36 Lipid Levels Maintains normal lipid levels as defined by care team [facility] Leobardo Herr RN Information not available 08/25/2023 19:26:33 Weight Mainpatricia abraham Exhibits stable weight with normal fluctuation [facility] active 2023 Leobardo Herr RN Information not available 08/25/2023 19:26:33 Blood Pressure Maintains blood pressure goal as defined by care team Amanuel active 2023 Leobardo Herr RN Information not available 08/25/2023 [...] Styles Member ID Guarantor Name 09/09/2023 1 [place] Yulia A Mangi [id number] 5 Yulia A Mangi 09/09/2023 2 [employer] (MEDICARE SUPPLEMENT) Yulia A Mangi [id number] Yulia A Mangi 09/30/2023 1 [place] Yulia A Mangi [id number] 5 Yulia A Mangi 09/30/2023 2 [employer] [place] [place] (MEDICARE SUPPLEMENT) Yulia A Mangi [id number] Yulia A Mangi 10/12/2023 1 [place] Yulia A Mangi [id number] 5 Yulia A Mangi 10/12/2023 2 [employer] [place] (MEDICARE SUPPLEMENT) Yulia A Mangi [id number] Yulia A Mangi 01/11/2024 1 [place] Yulia A Mangi [id number] 5 Yulia A Mangi 01/11/2024 2 [employer] [place] (MEDICARE SUPPLEMENT) Yulia A Mangi [id number] Yulia A Mangi 03/16/2024 1 [place] Yulia A Mangi [id number] 5 Yulia A Mangi 03/16/2024 2 [employer] [place] [place] (MEDICARE SUPPLEMENT) Yulia A Mangi [id number] Yulia A Mangi Notes Date Note Type Note Provider [...] Systemic Symptoms:none Medication Reconciliation: from medication list. Tltjgppnvvg30/03/2023: Venous Doppler lower extremities no evidence of [...] non healing lesions. [facility]: 6.4 Calculated MB mg%. Average blood [...] Hx of obesity. Currently Class 3 Obesity [place] > 40. Has tried numerous dietary support [...] offered to be evaluated and instructed by director compensation on weight loss diet. Active Medication ListAspirin [...] Reactions ReviewedLisinopril CoughDiovan CoughNorvasc Palpitations Vaccination and Iwrviudquvmb8363-30 Ppgejirir2407-11 Covid Dpskaw1551-53 Prevnar 13 Ar8119-80 Influenza Surgical Khcbybp9900-56 Ultrasound Guided Biopsy Rt. Ntneao2434-99 Robotic AJI9155-86 Lap Zedpsarrkjitnbx4665-90 C-Sazunzu0970-43 U-Dklerjl8724-60 Preventative Elynasr8207/01/2023 HAIC 6.4 % OF TOTAL HGB H003/30/2023 [...] 0.50-1.05 MG/DLEGFR 82 > OR = 60 ML/MIN/1.88S7BSOWEOGRW, TOTAL 0.6 0.2-1.2 MG/DLALKALINE PHOSPHATASE 57 37-153 U/LAST 10 10-35 U/LALT 13 6-29 U/L López Kirk MD [address], [place], [address], [employer] 09/09/2023 16:56:09 4 text/html Pt doing well and has no complaints other than back pain, as she is going to chiropractor López Kirk MD [address], [address], [place], [address], [employer] 09/30/2023 11:24:06 4 text/html . Patient is [...] other complaints. Brodie Harrison DPM [address], [employer], [place], [address], [employer] 10/12/2023 15:44:05 4 text/html . Patient is [...] better. Patient denies any other complaints. Brodie Harrison, DPAshutosh [address] [facility], [facility] [address], [place], [address], [place] [facility] [employer] 01/11/2024 15:44:52 5 text/html Patient Name: Yulia [...] Systemic Symptoms:none Medication Reconciliation: from medication list. Cayllwrgphv01/03/2023: Venous Doppler lower extremities no evidence of [...] Metoprolol Tartrate. Rate control: rapid ventricular response [id number] Criteria: hypertension, Age 65-74 and Diabetes for [...] Hx of obesity. Currently Class 3 Obesity [place] > 40. Has tried numerous dietary support [...] offered to be evaluated and instructed by director compensation on weight loss diet. Active Medication ListHyzaar [...] Immunization(X) 2007- INFLUENZA(X) 2020- COVID PFIZER( ) 2020-01 PREVNAR 13 GC( ) 2021- PNEUMOVAX Surgical Eegubwp7949-41 Ultrasound Guided Biopsy Rt. Zindia5319-73 Robotic VVC4001-70 Lap Qsmacgvzppldkjn5266-09 U-Fvrpdqm6092-47 D-Zscfvlz4982-91 Preventative Testing( ) 02/01/2024 Albumin 3.7 G/DL( [...] 2.880 0.465-4.680 UIU/ML López Kirk MD [address] [facility], [facility] [address], [place], [address], [place] [facility] 03/16/2024 17:15:18 OBGyn Episode No OBEpisode recorded.
--- OUTSIDE RECORDS SUMMARY | 2024-06-16 09:29 | XMS_ITS | Clinical Summary ---
Author Organization [facility] Address [address] [place] [address] Care Team Providers Care Flame Cutting Machine Operator Name Role Phone Walt Kirk MD Primary Care Provider [phone] Allergies Active Allergy Reactions Criticality Noted Date Comments Amlodipine Other (See Comments) Low 10/14/2019 Atorvastatin High 03/30/2023 Other Reaction(s): Sweating Lisinopril Low 10/14/2019 Other Reaction(s): cough Valsartan Low 10/14/2019 Other Reaction(s): cough Medications acetaminophen (TYLENOL) 325 MG tablet 2 tablets (650 mg total) by PO/Per Tube route every 4 (four) hours as needed for mild pain or Temp > or equal to 101F (38.3C). 05/17/19 25 Active albuterol (ACCUNEB) (5 MG/ML) 0.5% nebulizer solution Take 0.5 mL (2.5 mg total) by nebulization Every 6 hours as needed. for wheezing or shortness of breath. 05/17/19 25 Active amiodarone (PACERONE) 200 MG tablet 1 tablet (200 mg total) by PO/Per Tube route in the morning. 05/18/19 25 Active apixaban (Eliquis) 5 MG tabletIndications: Atrial Fibrillation 1 tablet (5 mg total) by PO/Per Tube route in the morning and 1 tablet (5 mg total) before bedtime. Indications: Atrial Fibrillation. 05/17/19 25 Active bethanechol (URECHOLINE) 10 MG tablet 1 tablet (10 mg total) by PO/Per Tube route in the morning and 1 tablet (10 mg total) at noon and 1 tablet (10 mg total) in the evening and 1 tablet (10 mg total) before bedtime. 05/17/19 Active buPROPion (WELLBUTRIN) 50 MG split tablet 1 split tablet (50 mg total) by PO/Per Tube route in the morning and 1 split tablet (50 mg total) before bedtime. 05/17/19 Active gabapentin (NEURONTIN) 100 MG capsule 2 capsules (200 mg total) by PO/Per Tube route 3 (three) times a day. 05/17/19 Active glucose 4 GM chewable tabletIndications: Hypoglycemia Chew 3 tablets (12 g total) as needed for blood sugar < 70 mg/dL (for hypoglycemia) Indications: Disorder with Low Blood Sugar. 05/17/19 Active insulin lispro 100 UNIT/ML injectionIndicatio ns:Hyperglycemia Inject 0-12 Units under the skin 4 (four) times a day before meals and nightly Indications: High Blood Sugar. 05/17/19 Active insulin NPH (HumuLIN N) 100 UNIT/ML injectionIndicatio ns:Hyperglycemia Inject 10 Units under the skin in the morning and 10 Units before bedtime. Indications: High Blood Sugar. 05/17/19 Active metoprolol tartrate (LOPRESSOR) 50 MG tablet 1 tablet (50 mg total) by PO/Per Tube route in the morning and 1 tablet (50 mg total) before bedtime. 05/17/19 Active midodrine (PROAMATINE) 10 MG tablet 1 tablet (10 mg total) by PO/Per Tube route in the morning and 1 tablet (10 mg total) at noon and 1 tablet (10 mg total) in the evening. 05/17/19 Active Omeprazole ODT (Prilosec OTC) 20 MG disintegrating tablet Administer 2 tablets (40 mg total) per tube in the morning. 05/18/19 Active potassium chloride 20 MEQ tablet controlled-release tablet Take 2 tablets (40 mEq total) by mouth in the morning and 2 tablets (40 mEq total) before bedtime. 05/17/19 25 Active senna (SENOKOT) 8.6 MG tablet 2 tablets (17.2 mg total) by PO/Per Tube route nightly. 05/17/19 25 Active sodium chloride 0.9 % solution Administer 0-500 mL continuously into a venous catheter as needed (Flush to maintain patency of system.). 05/17/19 Active vitamin B-12 (CYANOCOBALAMIN) 1000 MCG tablet 1 tablet (1,000 mcg total) by PO/Per Tube route in the morning. 05/18/19 Active bethanechol (URECHOLINE) 10 MG tablet 2 tablets (20 mg total) by PO/Per Tube route in the morning and 2 tablets (20 mg total) at noon and 2 tablets (20 mg total) in the evening and 2 tablets (20 mg total) before bedtime. 05/17/19 Active Active Problems Problem Noted Date Diagnosed Date Respiratory failure 04/18/2024 Encounters Date Type Department Care Team Description 04/18/2024 9:20 PM MEMBERSHIP COUNSELOR - 05/16/2024 2:33 PM CDT Hospital Encounter [place] [id number] [place] [address] You Arana MD Acute kidney failure, not otherwise specified (Primary Dx) Discharge Disposition: Disc/Trans to another REHAB FAC /DIS PA from Last 3 Months Social History Tobacco Use Types Packs/Day Years Used Date Smoking Tobacco: Never Assessed [facility] Utilities Answer Date Recorded In the past 12 months has [employer] electric, gas, oil, or water [employer] threatened to shut off services in your home? No 04/21/2024 Social Connection and Isolation Panel [NHANES] A nswer Date Recorded In a typical week, how many times do you talk on the phone with family, friends, or neighbors? Three times a week 04/21/19 How often do you get togethe r with friends or relatives? Three times a week 04/21/2024 How often do you attend chur ch or alevism services? 1 to 4 times per year 04/21/2024 Do you belong to any clubs o r organizations such as yarsani groups, unions, fraternal or athletic groups, or school groups? No 04/21/2024 How often do you attend meet ings of the clubs or organizations you belong to? Never 04/21/2024 Are you , , di vorced, , never , or living with a partner? 04/21/2024 Overall Financial Resource Strain (CARDIA) Answe r Date Recorded How hard is it for you to pa y for the very basics like food, housing, medical care, and heating? Not hard at all 04/21/2024 [facility] Occupat ional Health - Occupational Stress Questionnaire Answer Date Recorded Do you feel stress - tense, restless, nervous, or anxious, or unable to sleep at night because your mind is troubled all the time - these days? Not at all 05/16/2024 Hunger Vital Sign Answer Date Recorded Within the past 12 months, y ou worried that your food would run out before you got the money to buy more. Never true 04/21/19 Within the past 12 months, t he food you bought just didn't last and you didn't have money to get more. Never true 04/21/2024 Housing Stability Vital Sign Answer Celestine e Recorded In the last 12 months, was t here a time when you were not able to pay the mortgage or rent on time? No 04/21/2024 In the past 12 months, how m any times have you moved where you were living? 0 04/21/2024 [facility], were you homeless or living in a longterm (including now)? No 04/21/2024 Domestic Abuse Assessment Answer Date R ecorded Do you feel safe in your relationships at home? Yes 04/26/2024 Physical Abuse Denies 04/26/2024 [facility] - Type of Abuse Not on file 04/26/2024 HRSN Domestic Abuse - Time Frame Not on file 04/26/2024 HRSN Domestic Abuse - Signs and Symptoms Not on file 04/26/2024 Verbal Abuse Denies 04/26/2024 HRSN Domestic Abuse - Reported To Not on file 04/26/2024 [facility] Transportation Source Answer Da te Recorded Has lack of transportation k ept you from medical appointments or from getting medications? No 05/16/2024 Has lack of transportation k ept you from meetings, work, or from getting things needed for daily living? No 05/16/2024 HRSN Depression PHQ-2 Answer Date Recor ded Feeling down, depressed, or hopeless 0 05/16/2024 Little interest or pleasure in doing things 0 05/16/2024 Comments Unknown Sex and Gender Information Value Date Recorded Sex Assigned at Not on file Legal Sex Female 11:09 AM EST Gender Identity Not on file Sexual Orientation Not on file Last Filed Vital Signs Vital Sign Reading Time Taken Comments Blood Pressure 122/81 05/16/2024 12:06 PM CDT Pulse 69 05/16/2024 12:06 PM CDT Temperature 35.9 C (96.7 F) 05/16/2024 8:22 AM CDT Respiratory Rate 20 05/16/2024 8:22 AM CDT Oxygen Saturation 94% 05/13/2024 9:35 AM CDT Inhaled Oxygen Concentration - - Weight 147 kg (324 lb 1.6 oz) 05/08/2024 4:00 AM CDT Height 177.8 cm (5' 10 ) 04/18/2024 3:36 PM MEMBERSHIP COUNSELOR Body Mass Index 46.5 04/18/2024 3:36 PM MEMBERSHIP COUNSELOR Plan of Treatment Not on file Procedures Procedure Name Priority Date/Time Associated Diagnosis Comments POCT GLUCOSE Routine 05/16/2024 12:03 PM CDT POCT GLUCOSE Routine 05/16/2024 8:28 AM CDT RENAL FUNCTION PANEL Routine 05/16/2024 4:00 AM CDT CBC Routine 05/16/2024 4:00 AM CDT POCT GLUCOSE Routine 05/15/2024 9:16 PM CDT POCT GLUCOSE Routine 05/15/2024 4:22 PM CDT POCT GLUCOSE Routine 05/15/2024 11:56 AM CDT POCT GLUCOSE Routine 05/15/2024 7:34 AM CDT POCT GLUCOSE Routine 05/14/2024 9:33 PM CDT POCT GLUCOSE Routine 05/14/2024 4:42 PM CDT POCT GLUCOSE Routine 05/14/2024 11:25 AM CDT POCT GLUCOSE Routine 05/14/2024 7:41 AM CDT RENAL FUNCTION PANEL Routine 05/14/2024 4:00 AM CDT CBC Routine 05/14/2024 4:00 AM CDT POCT GLUCOSE Routine 05/13/2024 9:22 PM CDT POCT GLUCOSE Routine 05/13/2024 4:50 PM CDT POCT GLUCOSE Routine 05/13/2024 11:33 AM CDT POCT GLUCOSE Routine 05/13/2024 7:51 AM CDT POCT GLUCOSE Routine 05/12/2024 8:16 PM CDT POCT GLUCOSE Routine 05/12/2024 3:55 PM CDT URINE PROTEIN/CREATININE RATIO Routine 05/12/2024 11:39 AM CDT SODIUM, URINE, RANDOM Routine 05/12/2024 11:39 AM CDT CHLORIDE, URINE, RANDOM Routine 05/12/2024 11:39 AM CDT POCT GLUCOSE Routine 05/12/2024 11:34 AM CDT POCT GLUCOSE Routine 05/12/2024 7:31 AM CDT RENAL FUNCTION PANEL Routine 05/12/2024 4:00 AM CDT POCT GLUCOSE Routine 05/11/2024 9:15 PM CDT POCT GLUCOSE Routine 05/11/2024 4:44 PM CDT POCT GLUCOSE Routine 05/11/2024 11:37 AM CDT POCT GLUCOSE Routine 05/11/2024 8:26 AM CDT RENAL FUNCTION PANEL Routine 05/11/2024 4:00 AM CDT POCT GLUCOSE Routine 05/10/2024 10:54 PM CDT POCT GLUCOSE Routine 05/10/2024 4:44 PM CDT POCT GLUCOSE Routine 05/10/2024 12:12 PM CDT POCT GLUCOSE Routine 05/10/2024 8:25 AM CDT RENAL FUNCTION PANEL Routine 05/10/2024 4:00 AM CDT POCT GLUCOSE Routine 05/09/2024 10:03 PM CDT POCT GLUCOSE Routine 05/09/2024 4:44 PM CDT POCT GLUCOSE Routine 05/09/2024 11:37 AM CDT POCT GLUCOSE Routine 05/09/2024 8:25 AM CDT RENAL FUNCTION PANEL Routine 05/09/2024 4:06 AM CDT CBC Routine 05/09/2024 4:06 AM CDT POCT GLUCOSE Routine 05/08/2024 9:27 PM CDT POCT GLUCOSE Routine 05/08/2024 4:50 PM CDT POCT GLUCOSE Routine 05/08/2024 10:38 AM CDT POCT GLUCOSE Routine 05/08/2024 7:39 AM CDT POCT GLUCOSE Routine 05/07/2024 9:00 PM MEMBERSHIP COUNSELOR POCT GLUCOSE Routine 05/07/2024 4:27 PM MEMBERSHIP COUNSELOR POCT GLUCOSE Routine 05/07/2024 11:20 AM MEMBERSHIP COUNSELOR POCT GLUCOSE Routine 05/07/2024 8:34 AM MEMBERSHIP COUNSELOR BASIC METABOLIC PANEL Routine 05/07/2024 4:00 AM MEMBERSHIP COUNSELOR RENAL FUNCTION PANEL Routine 05/07/2024 4:00 AM MEMBERSHIP COUNSELOR POCT GLUCOSE Routine 05/06/2024 9:14 PM MEMBERSHIP COUNSELOR POCT GLUCOSE Routine 05/06/2024 5:00 PM MEMBERSHIP COUNSELOR POCT GLUCOSE Routine 05/06/2024 12:02 PM MEMBERSHIP COUNSELOR POCT GLUCOSE Routine 05/06/2024 7:44 AM MEMBERSHIP COUNSELOR POCT GLUCOSE Routine 05/05/2024 9:35 PM MEMBERSHIP COUNSELOR POCT GLUCOSE Routine 05/05/2024 4:32 PM MEMBERSHIP COUNSELOR POCT GLUCOSE Routine 05/05/2024 10:21 AM MEMBERSHIP COUNSELOR POCT GLUCOSE Routine 05/05/2024 7:50 AM MEMBERSHIP COUNSELOR POCT GLUCOSE Routine 05/05/2024 3:50 AM MEMBERSHIP COUNSELOR POCT GLUCOSE Routine 05/04/2024 9:50 PM MEMBERSHIP COUNSELOR POCT GLUCOSE Routine 05/04/2024 4:15 PM MEMBERSHIP COUNSELOR POCT GLUCOSE Routine 05/04/2024 12:03 PM MEMBERSHIP COUNSELOR POCT GLUCOSE Routine 05/04/2024 7:35 AM MEMBERSHIP COUNSELOR RENAL FUNCTION PANEL Routine 05/04/2024 4:17 AM MEMBERSHIP COUNSELOR POCT GLUCOSE Routine 05/03/2024 9:48 PM MEMBERSHIP COUNSELOR POCT GLUCOSE Routine 05/03/2024 5:17 PM MEMBERSHIP COUNSELOR MRI BRAIN W/O CONTRAST Routine 3:02 PM MEMBERSHIP COUNSELOR POCT GLUCOSE Routine 05/03/2024 12:32 PM MEMBERSHIP COUNSELOR POCT GLUCOSE Routine 05/03/2024 8:00 AM MEMBERSHIP COUNSELOR RENAL FUNCTION PANEL Routine 05/03/2024 4:00 AM MEMBERSHIP COUNSELOR PT/PTT Routine 05/03/2024 4:00 AM MEMBERSHIP COUNSELOR CBC Routine 05/03/2024 4:00 AM MEMBERSHIP COUNSELOR POCT GLUCOSE Routine 05/02/2024 10:18 PM MEMBERSHIP COUNSELOR POCT GLUCOSE Routine 05/02/2024 4:43 PM MEMBERSHIP COUNSELOR POCT GLUCOSE Routine 05/02/2024 11:52 AM MEMBERSHIP COUNSELOR POCT GLUCOSE Routine 05/02/2024 5:19 AM MEMBERSHIP COUNSELOR POCT GLUCOSE Routine 05/01/2024 11:24 PM MEMBERSHIP COUNSELOR POCT GLUCOSE Routine 05/01/2024 6:16 PM MEMBERSHIP COUNSELOR POCT GLUCOSE Routine 05/01/2024 11:51 AM MEMBERSHIP COUNSELOR POCT GLUCOSE Routine 05/01/2024 5:26 AM MEMBERSHIP COUNSELOR POCT GLUCOSE Routine 04/30/2024 11:39 PM MEMBERSHIP COUNSELOR POCT GLUCOSE Routine 04/30/2024 5:18 PM MEMBERSHIP COUNSELOR POCT GLUCOSE Routine 04/30/2024 12:31 PM MEMBERSHIP COUNSELOR POCT GLUCOSE Routine 04/30/2024 5:46 AM MEMBERSHIP COUNSELOR POCT GLUCOSE Routine 04/29/2024 11:41 PM MEMBERSHIP COUNSELOR POCT GLUCOSE Routine 04/29/2024 5:26 PM MEMBERSHIP COUNSELOR POCT GLUCOSE Routine 04/29/2024 12:43 PM MEMBERSHIP COUNSELOR MODIFIED BARIUM SWALLOW STUDY Routine 04/29/2024 10:53 AM MEMBERSHIP COUNSELOR POCT GLUCOSE Routine 04/29/2024 10:32 AM MEMBERSHIP COUNSELOR POCT GLUCOSE Routine 04/29/2024 5:00 AM MEMBERSHIP COUNSELOR POCT GLUCOSE Routine 04/28/2024 11:53 PM MEMBERSHIP COUNSELOR POCT GLUCOSE Routine 04/28/2024 6:49 PM MEMBERSHIP COUNSELOR PULSE OXIMETRY, CONTINUOUS Routine 04/28/2024 3:30 PM MEMBERSHIP COUNSELOR XR CHEST 1 VW Routine 04/28/2024 2:05 PM MEMBERSHIP COUNSELOR DECANNULATE TRACH TUBE Routine 1:52 PM MEMBERSHIP COUNSELOR POCT GLUCOSE Routine 04/28/2024 12:29 PM MEMBERSHIP COUNSELOR POCT GLUCOSE Routine 04/28/2024 5:21 AM MEMBERSHIP COUNSELOR BLOOD GAS, ARTERIAL (POCT) Routine 04/28/2024 4:56 AM MEMBERSHIP COUNSELOR RENAL FUNCTION PANEL Routine 04/28/2024 4:00 AM MEMBERSHIP COUNSELOR POCT GLUCOSE Routine 04/27/2024 11:23 PM MEMBERSHIP COUNSELOR POCT GLUCOSE Routine 04/27/2024 6:09 PM MEMBERSHIP COUNSELOR ROUTINE TRACHEOSTOMY CARE Routine 04/27/2024 8:01 AM MEMBERSHIP COUNSELOR PULSE OXIMETRY, CONTINUOUS Routine 04/27/2024 8:01 AM MEMBERSHIP COUNSELOR POCT GLUCOSE Routine 04/27/2024 5:17 AM MEMBERSHIP COUNSELOR POCT GLUCOSE Routine 04/26/2024 11:39 PM MEMBERSHIP COUNSELOR ROUTINE TRACHEOSTOMY CARE Routine 04/26/2024 8:01 PM MEMBERSHIP COUNSELOR PULSE OXIMETRY, CONTINUOUS Routine 04/26/2024 8:01 PM MEMBERSHIP COUNSELOR POCT GLUCOSE Routine 04/26/2024 6:08 PM MEMBERSHIP COUNSELOR DECANNULATE TRACH TUBE Routine 10:26 AM MEMBERSHIP COUNSELOR ROUTINE TRACHEOSTOMY CARE Routine 04/26/2024 8:01 AM MEMBERSHIP COUNSELOR PULSE OXIMETRY, CONTINUOUS Routine 04/26/2024 8:01 AM MEMBERSHIP COUNSELOR POCT GLUCOSE Routine 04/26/2024 5:58 AM MEMBERSHIP COUNSELOR ROUTINE TRACHEOSTOMY CARE Routine 04/25/2024 8:01 PM MEMBERSHIP COUNSELOR PULSE OXIMETRY, CONTINUOUS Routine 04/25/2024 8:01 PM MEMBERSHIP COUNSELOR POCT GLUCOSE Routine 04/25/2024 5:[address] CHEST WO CONTRAST Routine 04/25/2024 3:55 PM MEMBERSHIP COUNSELOR TRACHEOSTOMY TUBE CHANGE Routine 04/25/2024 12:41 PM MEMBERSHIP COUNSELOR POCT GLUCOSE Routine 04/25/2024 11:22 AM MEMBERSHIP COUNSELOR PROTEIN, URINE, 24 HOUR Routine 04/25/2024 10:36 AM MEMBERSHIP COUNSELOR CREATININE CLEARANCE, URINE, 24 HOUR Routine 04/25/2024 10:36 AM MEMBERSHIP COUNSELOR SODIUM, URINE, RANDOM Routine 04/25/2024 10:36 AM MEMBERSHIP COUNSELOR URINE PROTEIN/CREATININE RATIO Routine 04/25/2024 10:36 AM MEMBERSHIP COUNSELOR CHLORIDE, URINE, RANDOM Routine 04/25/2024 10:36 AM MEMBERSHIP COUNSELOR ROUTINE TRACHEOSTOMY CARE Routine 04/25/2024 9:33 AM MEMBERSHIP COUNSELOR ROUTINE TRACHEOSTOMY CARE Routine 04/25/2024 9:33 AM MEMBERSHIP COUNSELOR VENTILATOR Routine 04/25/2024 8:01 AM MEMBERSHIP COUNSELOR PULSE OXIMETRY, CONTINUOUS Routine 04/25/2024 8:01 AM MEMBERSHIP COUNSELOR POCT GLUCOSE Routine 04/25/2024 5:25 AM MEMBERSHIP COUNSELOR BLOOD GAS, ARTERIAL (POCT) Routine 04/25/2024 5:20 AM MEMBERSHIP COUNSELOR VENTILATOR Routine 04/25/2024 5:00 AM MEMBERSHIP COUNSELOR PHOSPHORUS Routine 04/25/2024 3:36 AM MEMBERSHIP COUNSELOR COMPREHENSIVE METABOLIC PANEL Routine 04/25/2024 3:36 AM MEMBERSHIP COUNSELOR CBC Routine 04/25/2024 3:36 AM MEMBERSHIP COUNSELOR XR CHEST 1 VW Routine 04/25/2024 3:34 AM MEMBERSHIP COUNSELOR VENTILATOR Routine 04/25/2024 2:00 AM MEMBERSHIP COUNSELOR POCT GLUCOSE Routine 04/24/2024 11:41 PM MEMBERSHIP COUNSELOR VENTILATOR Routine 04/24/2024 11:02 PM MEMBERSHIP COUNSELOR VENTILATOR Routine 04/24/2024 8:01 PM MEMBERSHIP COUNSELOR PULSE OXIMETRY, CONTINUOUS Routine 04/24/2024 8:01 PM MEMBERSHIP COUNSELOR POCT GLUCOSE Routine 04/24/2024 6:27 PM MEMBERSHIP COUNSELOR VENTILATOR Routine 04/24/2024 5:00 PM MEMBERSHIP COUNSELOR VENTILATOR Routine 04/24/2024 2:00 PM MEMBERSHIP COUNSELOR POCT GLUCOSE Routine 04/24/2024 12:18 PM MEMBERSHIP COUNSELOR VENTILATOR Routine 04/24/2024 11:00 AM MEMBERSHIP COUNSELOR ROUTINE TRACHEOSTOMY CARE Routine 04/24/2024 8:01 AM MEMBERSHIP COUNSELOR VENTILATOR Routine 04/24/2024 8:01 AM MEMBERSHIP COUNSELOR PULSE OXIMETRY, CONTINUOUS Routine 04/24/2024 8:01 AM MEMBERSHIP COUNSELOR POCT GLUCOSE Routine 04/24/2024 5:27 AM MEMBERSHIP COUNSELOR VENTILATOR Routine 04/24/2024 5:00 AM MEMBERSHIP COUNSELOR VENTILATOR Routine 04/24/2024 2:00 AM MEMBERSHIP COUNSELOR POCT GLUCOSE Routine 04/24/2024 12:07 AM MEMBERSHIP COUNSELOR VENTILATOR Routine 04/23/2024 11:01 PM MEMBERSHIP COUNSELOR ROUTINE TRACHEOSTOMY CARE Routine 04/23/2024 8:01 PM MEMBERSHIP COUNSELOR VENTILATOR Routine 04/23/2024 8:01 PM MEMBERSHIP COUNSELOR PULSE OXIMETRY, CONTINUOUS Routine 04/23/2024 8:01 PM MEMBERSHIP COUNSELOR POCT GLUCOSE Routine 04/23/2024 5:47 PM MEMBERSHIP COUNSELOR VENTILATOR Routine 04/23/2024 5:00 PM MEMBERSHIP COUNSELOR VENTILATOR Routine 04/23/2024 2:00 PM MEMBERSHIP COUNSELOR POCT GLUCOSE Routine 04/23/2024 11:52 AM MEMBERSHIP COUNSELOR VENTILATOR Routine 04/23/2024 11:00 AM MEMBERSHIP COUNSELOR ROUTINE TRACHEOSTOMY CARE Routine 04/23/2024 8:01 AM MEMBERSHIP COUNSELOR VENTILATOR Routine 04/23/2024 8:01 AM MEMBERSHIP COUNSELOR PULSE OXIMETRY, CONTINUOUS Routine 04/23/2024 8:01 AM MEMBERSHIP COUNSELOR POCT GLUCOSE Routine 04/23/2024 5:44 AM MEMBERSHIP COUNSELOR VENTILATOR Routine 04/23/2024 5:00 AM MEMBERSHIP COUNSELOR VENTILATOR Routine 04/23/2024 2:00 AM MEMBERSHIP COUNSELOR VENTILATOR Routine 04/22/2024 11:01 PM MEMBERSHIP COUNSELOR POCT GLUCOSE Routine 04/22/2024 10:45 PM MEMBERSHIP COUNSELOR ROUTINE TRACHEOSTOMY CARE Routine 04/22/2024 8:01 PM MEMBERSHIP COUNSELOR VENTILATOR Routine 04/22/2024 8:01 PM MEMBERSHIP COUNSELOR PULSE OXIMETRY, CONTINUOUS Routine 04/22/2024 8:01 PM MEMBERSHIP COUNSELOR POCT GLUCOSE Routine 04/22/2024 6:07 PM MEMBERSHIP COUNSELOR VENTILATOR Routine 04/22/2024 5:00 PM MEMBERSHIP COUNSELOR VENTILATOR Routine 04/22/2024 2:00 PM MEMBERSHIP COUNSELOR POCT GLUCOSE Routine 04/22/2024 12:16 PM MEMBERSHIP COUNSELOR VENTILATOR Routine 04/22/2024 11:00 AM MEMBERSHIP COUNSELOR ROUTINE TRACHEOSTOMY CARE Routine 04/22/2024 8:01 AM MEMBERSHIP COUNSELOR VENTILATOR Routine 04/22/2024 8:01 AM MEMBERSHIP COUNSELOR PULSE OXIMETRY, CONTINUOUS Routine 04/22/2024 8:01 AM MEMBERSHIP COUNSELOR POCT GLUCOSE Routine 04/22/2024 5:58 AM MEMBERSHIP COUNSELOR VENTILATOR Routine 04/22/2024 5:00 AM MEMBERSHIP COUNSELOR CBC Routine 04/22/2024 3:27 AM MEMBERSHIP COUNSELOR RENAL FUNCTION PANEL Routine 04/22/2024 3:27 AM MEMBERSHIP COUNSELOR VENTILATOR Routine 04/22/2024 2:00 AM MEMBERSHIP COUNSELOR POCT GLUCOSE Routine 04/22/2024 12:11 AM MEMBERSHIP COUNSELOR VENTILATOR Routine 04/21/2024 11:02 PM MEMBERSHIP COUNSELOR ROUTINE TRACHEOSTOMY CARE Routine 04/21/2024 8:01 PM MEMBERSHIP COUNSELOR VENTILATOR Routine 04/21/2024 8:01 PM MEMBERSHIP COUNSELOR PULSE OXIMETRY, CONTINUOUS Routine 04/21/2024 8:01 PM MEMBERSHIP COUNSELOR POCT GLUCOSE Routine 04/21/2024 5:18 PM MEMBERSHIP COUNSELOR VENTILATOR Routine 04/21/2024 5:00 PM MEMBERSHIP COUNSELOR VENTILATOR Routine 04/21/2024 2:00 PM MEMBERSHIP COUNSELOR POCT GLUCOSE Routine 04/21/2024 1:37 PM MEMBERSHIP COUNSELOR URINE PROTEIN/CREATININE RATIO Routine 04/21/2024 12:11 PM MEMBERSHIP COUNSELOR SODIUM, URINE, RANDOM Routine 04/21/2024 12:11 PM MEMBERSHIP COUNSELOR CHLORIDE, URINE, RANDOM Routine 04/21/2024 12:11 PM MEMBERSHIP COUNSELOR VENTILATOR Routine 04/21/2024 11:00 AM MEMBERSHIP COUNSELOR ROUTINE TRACHEOSTOMY CARE Routine 04/21/2024 8:01 AM MEMBERSHIP COUNSELOR VENTILATOR Routine 04/21/2024 8:01 AM MEMBERSHIP COUNSELOR PULSE OXIMETRY, CONTINUOUS Routine 04/21/2024 8:01 AM MEMBERSHIP COUNSELOR POCT GLUCOSE Routine 04/21/2024 5:37 AM MEMBERSHIP COUNSELOR URINALYSIS WITH REFLEX TO CULTURE Routine 04/21/2024 5:10 AM MEMBERSHIP COUNSELOR VENTILATOR Routine 04/21/2024 5:00 AM MEMBERSHIP COUNSELOR FERRITIN Routine 04/21/2024 3:00 AM MEMBERSHIP COUNSELOR IRON AND TIBC Routine 04/21/2024 3:00 AM MEMBERSHIP COUNSELOR PTH INTACT W/O CALCIUM Routine 3:00 AM MEMBERSHIP COUNSELOR VENTILATOR Routine 04/21/2024 2:00 AM MEMBERSHIP COUNSELOR POCT GLUCOSE Routine 2024 11:47 PM MEMBERSHIP COUNSELOR VENTILATOR Routine 2024 11:02 PM MEMBERSHIP COUNSELOR ROUTINE TRACHEOSTOMY CARE Routine 2024 8:01 PM MEMBERSHIP COUNSELOR VENTILATOR Routine 2024 8:01 PM MEMBERSHIP COUNSELOR PULSE OXIMETRY, CONTINUOUS Routine 2024 8:01 PM MEMBERSHIP COUNSELOR POCT GLUCOSE Routine 2024 5:40 PM MEMBERSHIP COUNSELOR VENTILATOR Routine 2024 5:00 PM MEMBERSHIP COUNSELOR VENTILATOR Routine 2024 2:00 PM MEMBERSHIP COUNSELOR HEMODIALYSIS INPATIENT Routine 1:03 PM MEMBERSHIP COUNSELOR POCT GLUCOSE Routine 2024 11:34 AM MEMBERSHIP COUNSELOR VENTILATOR Routine 2024 11:00 AM MEMBERSHIP COUNSELOR ROUTINE TRACHEOSTOMY CARE Routine 2024 8:01 AM MEMBERSHIP COUNSELOR VENTILATOR Routine 2024 8:01 AM MEMBERSHIP COUNSELOR PULSE OXIMETRY, CONTINUOUS Routine 2024 8:01 AM MEMBERSHIP COUNSELOR POCT GLUCOSE Routine 2024 5:12 AM MEMBERSHIP COUNSELOR VENTILATOR Routine 2024 5:00 AM MEMBERSHIP COUNSELOR RENAL FUNCTION PANEL Routine 2024 3:37 AM MEMBERSHIP COUNSELOR HEPATITIS ACUTE PANEL Routine 2024 3:37 AM MEMBERSHIP COUNSELOR VENTILATOR Routine 2024 2:00 AM MEMBERSHIP COUNSELOR POCT GLUCOSE Routine 04/19/2024 11:39 PM MEMBERSHIP COUNSELOR VENTILATOR Routine 04/19/2024 11:02 PM MEMBERSHIP COUNSELOR ROUTINE TRACHEOSTOMY CARE Routine 04/19/2024 8:01 PM MEMBERSHIP COUNSELOR VENTILATOR Routine 04/19/2024 8:01 PM MEMBERSHIP COUNSELOR PULSE OXIMETRY, CONTINUOUS Routine 04/19/2024 8:01 PM MEMBERSHIP COUNSELOR POCT GLUCOSE Routine 04/19/2024 6:30 PM MEMBERSHIP COUNSELOR VENTILATOR Routine 04/19/2024 5:01 PM MEMBERSHIP COUNSELOR VENTILATOR Routine 04/19/2024 2:00 PM MEMBERSHIP COUNSELOR POCT GLUCOSE Routine 04/19/2024 12:47 PM MEMBERSHIP COUNSELOR VENTILATOR Routine 04/19/2024 11:00 AM MEMBERSHIP COUNSELOR BLOOD GAS, ARTERIAL (POCT) Routine 04/19/2024 10:31 AM MEMBERSHIP COUNSELOR ROUTINE TRACHEOSTOMY CARE Routine 04/19/2024 8:01 AM MEMBERSHIP COUNSELOR VENTILATOR Routine 04/19/2024 8:01 AM MEMBERSHIP COUNSELOR PULSE OXIMETRY, CONTINUOUS Routine 04/19/2024 8:01 AM MEMBERSHIP COUNSELOR POCT GLUCOSE Routine 04/19/2024 6:10 AM MEMBERSHIP COUNSELOR XR CHEST 1 VW Routine 04/19/2024 5:34 AM MEMBERSHIP COUNSELOR MANUAL DIFFERENTIAL Routine 04/19/2024 4 :25 AM MEMBERSHIP COUNSELOR PREALBUMIN Routine 04/19/2024 4:12 AM MEMBERSHIP COUNSELOR TSH WITH REFLEX FREE T4 Routine 04/19/2024 4:12 AM MEMBERSHIP COUNSELOR COMPREHENSIVE METABOLIC PANEL Routine 04/19/2024 4:12 AM MEMBERSHIP COUNSELOR CBC WITH AUTO DIFFERENTIAL Routine 04/19/2024 4:12 AM MEMBERSHIP COUNSELOR VENTILATOR Routine 04/19/2024 2:00 AM MEMBERSHIP COUNSELOR POCT GLUCOSE Routine 04/19/2024 12:08 AM MEMBERSHIP COUNSELOR VENTILATOR Routine 04/18/2024 11:02 PM MEMBERSHIP COUNSELOR ROUTINE TRACHEOSTOMY CARE Routine 04/18/2024 9:42 PM MEMBERSHIP COUNSELOR ROUTINE TRACHEOSTOMY CARE Routine 04/18/2024 9:42 PM MEMBERSHIP COUNSELOR VENTILATOR Routine 04/18/2024 9:42 PM MEMBERSHIP COUNSELOR VENTILATOR Routine 04/18/2024 9:42 PM MEMBERSHIP COUNSELOR VENTILATOR Routine 04/18/2024 9:42 PM MEMBERSHIP COUNSELOR VENTILATOR Routine 04/18/2024 9:42 PM MEMBERSHIP COUNSELOR VENTILATOR Routine 04/18/2024 9:42 PM MEMBERSHIP COUNSELOR VENTILATOR Routine 04/18/2024 9:42 PM MEMBERSHIP COUNSELOR VENTILATOR Routine 04/18/2024 9:42 PM MEMBERSHIP COUNSELOR VENTILATOR Routine 04/18/2024 9:42 PM MEMBERSHIP COUNSELOR PULSE OXIMETRY, CONTINUOUS Routine 04/18/2024 9:42 PM MEMBERSHIP COUNSELOR PULSE OXIMETRY, CONTINUOUS Routine 04/18/2024 9:42 PM MEMBERSHIP COUNSELOR from Last 3 Months Results * POCT glucose (05/16/2024 12:03 PM CDT) Only the most recent of110 resultswithin the time period is included. Glucose Blood, POC 101 70 - 120 mg/dL PATSY Blood 05/16/2024 12:0 3 PM CDT 05/16/2024 12:03 PM CDT [place] Yasmeen APARICIO LAB POINT OF CARE TEST ORDER MARISEL Final Result PATSY * (ABNORMAL) Renal Function Panel (05/16/2024 4:00 AM CDT) Only the most recent of12 resultswithin the time period is included. Glucose mg/dL Blood 123(H) 70 - 99 mg/dL [facility] Sodium mmol/L Blood 145 136 - 145 mmol/L [facility] Potassium mmol/L Blood 3.9 3.5 - 5.1 mmol/L [facility] Chloride 106 98 - 107 mmol/L [facility] CO2 29 22 - 29 mmol/L [facility] Calcium mg/dL Blood 8.7 8.4 - 10.4 mg/dL [facility] Anion Gap Blood 10 6 - 16 mmol/L [facility] Bun mg/dL Blood 36(H) 7 - 26 mg/dL [facility] Creatinine 1.10 0.57 - 1.11 mg/dL [facility] Albumin gm/dL Blood 2.4(L) 3.4 - 5.0 gm/dL [facility] Phosphorus mg/dL Blood 3.4 2.5 - 4.5 mg/dL [facility] EGFRCR CKD-EPI 54(L) >=90 mL/min/1.7 3 m2 [facility] Blood (Blood, Venous) 05/16/2024 4:00 AM CDT 05/16/2024 5:14 AM CDT Oswaldo Page MD LAB BLOOD ORDERABLES Final Resul t Performing Organization Address [facility] Co de Phone Number [facility] [address] [place] [address] * (ABNORMAL) CBC (05/16/2024 4:00 AM CDT) Only the most recent of6 resultswithin the time period is included. WBC 9.4 4.0 - 10.7 x10E9/L [facility] RBC 3.72(L) 3.90 - 5.20 x10E12/L [facility] HGB gm/dL Blood 11.7(L) 11.9 - 15.8 g/dL [facility] Hematocrit 36.4 34.8 - 46.1 % [facility] MCV 97.8 80.0 - 98.0 fL [facility] MCH 31.5 26.7 - 33.6 pg [facility] MCHC 32.1 31.7 - 36.3 g/dL [facility] RDW-CV 17.0(H) 11.3 - 14.8 % [facility] Platelet count 236 150 - 420 x10E9/L [facility] MPV 9.0 7.8 - 11.4 fL [facility] Blood (Blood, Venous) 05/16/2024 4:00 AM CDT 05/16/2024 5:14 AM CDT Oswaldo Page MD LAB BLOOD ORDERABLES Final Resul t Performing Organization Address [facility]/ZIP Co de Phone Number [facility] [address] [place] [address] * (ABNORMAL) Urine protein/creatinine ratio (05/12/2024 11:39 AM CDT) Only the most recent of3 resultswithin the time period is included. Protein Urine mg/dL 129.4(H) <11.9 mg/dL [facility] Creatinine Urine mg/dL 52.73 mg/dL [facility] Protein/Creati nine Ratio Urine 2.45 [facility] Urine (Urine, Catheter) 05/12/2024 11:39 AM CDT 05/12/2024 11:51 AM CDT Oswaldo Page MD LAB URINE ORDERABLES Final Resul t Performing Organization Address [facility] de Phone Number [facility] [address] [place] [address] * Sodium, urine, random (05/12/2024 11:39 AM CDT) Only the most recent of3 resultswithin the time period is included. Sodium Urine mmol/L 44 mmol/L [facility] Urine (Urine, Catheter) 05/12/2024 11:39 AM CDT 05/12/2024 11:51 AM CDT Oswaldo Page MD LAB URINE ORDERABLES Final Resul t Performing Organization Address [facility] de Phone Number [facility] [address] [place] [address] * Chloride, urine, random (05/12/2024 11:39 AM CDT) Only the most recent of3 resultswithin the time period is included. Chloride Urine mmol/L 51.0 mmol/L [facility] Urine (Urine, Catheter) 05/12/2024 11:39 AM CDT 05/12/2024 11:51 AM CDT Oswaldo Page MD LAB URINE ORDERABLES Final Resul t Performing Organization Address [facility] de Phone Number [facility] [address] [place] [address] * (ABNORMAL) Basic metabolic panel (05/07/2024 4:00 AM MEMBERSHIP COUNSELOR) Glucose mg/dL Blood 108(H) 70 - 99 mg/dL [facility] Sodium mmol/L Blood 142 136 - 145 mmol/L [facility] Potassium mmol/L Blood 4.1 3.5 - 5.1 mmol/L [facility] Chloride 100 98 - 107 mmol/L [facility] CO2 33(H) 22 - 29 mmol/L [facility] Calcium mg/dL Blood 8.2(L) 8.4 - 10.4 mg/dL [facility] Anion Gap Blood 9 6 - 16 mmol/L [facility] Bun mg/dL Blood 47(H) 7 - 26 mg/dL [facility] Creatinine 1.08 0.57 - 1.11 mg/dL [facility] EGFRCR CKD-EPI 55(L) >=90 mL/min/1.7 3 m2 [facility] Blood (Blood, Venous) 05/07/2024 4:00 AM MEMBERSHIP COUNSELOR 05/08/2024 4:46 AM CDT Tamar Morales NP LAB BLOOD ORDERABLES Fi nal Result Performing Organization Address [facility]/State/ZIP Co de Phone Number [facility] [address] [place] [address] * MRI brain WO contrast (05/03/2024 3:02 PM MEMBERSHIP COUNSELOR) Anatomical Region Laterality Modality Head and Neck Magnetic Resonan ce Impressions 05/03/2024 3:28 PM MEMBERSHIP COUNSELOR IMPRESSION: IMPRESSION: Involutional changes. Mostly subcortical small vessel ischemic disease. No intracranial bleed or evidence of acute ischemic process. Paranasal sinuses disease. > Interpreting Provider: Ladi Malik MD on 05/03/2024 3:28 PM Narrative 05/03/2024 3:28 PM MEMBERSHIP COUNSELOR NARRATIVE: PROCEDURE: MRI BRAIN WO CONTRAST, DATE/TIME OF EXAM: 05/03/2024 3:02 PM INDICATION: left weakness ADDITIONAL CLINICAL INFORMATION: Ordering Provider Reason For Exam: Technologist Note: Additional: 69-year-old with left arm weakness that started in April 2024. COMPARISON: Head CT from 03/28/2024 from outside institution. TECHNIQUE: MR imaging of the brain was performed using multiple planes and multiple sequences. CONTRAST: FINDINGS: The ventricles are midline, mild to moderately prominent, proportionate to the sulci. There is no extraaxial hematoma. There is no subarachnoid bleed. The basilar cisterns are preserved. There are several small focal areas of increased T2 and FLAIR signal mostly at the subcortical white matter, most consistent with small vessel ischemic changes. The cerebellar pontine angles are patent. The major vascular flow voids are maintained. The retro-orbital fat is normal. The visualized portions of the paranasal sinuses demonstrate complete opacification of the right maxillary sinus. There is mild mucosal thickening of the left maxillary sinus. There is complete opacification of the left sphenoid sinus. There is fluid of the mastoid cells bilaterally. On the diffusion sequences, there is no evidence of acute ischemic process. Procedure Note System, Provider Not In - 05/03/2024 NARRATIVE: PROCEDURE: MRI BRAIN WO CONTRAST, DATE/TIME OF EXAM: 05/03/2024 3:02 PM INDICATION: left weakness ADDITIONAL CLINICAL INFORMATION: Ordering Provider Reason For Exam: Technologist Note: Additional: 69-year-old with left arm weakness that started in April 2024. COMPARISON: Head CT from 03/28/2024 from outside institution. TECHNIQUE: MR imaging of the brain was performed using multiple planesand multiple sequences. CONTRAST: FINDINGS: The ventricles are midline, mild to moderately prominent, proportionateto the sulci. There is no extraaxial hematoma. There is no subarachnoid bleed. The basilar cisterns are preserved. There are several small focal areas of increased T2 and FLAIR signal mostly at the subcortical white matter, most consistent with small vessel ischemic changes. Thecerebellar pontine angles are patent. The major vascular flow voids are maintained. The retro-orbital fat is normal. The visualized portions of theparanasal sinuses demonstrate complete opacification of the right maxillary sinus. There is mild mucosal thickening of the left maxillary sinus. There is complete opacification of the left sphenoid sinus. There is fluid of the mastoid cells bilaterally. On the diffusion sequences, there is no evidence of acute ischemicprocess. IMPRESSION: IMPRESSION: IMPRESSION: Involutional changes. Mostly subcortical small vessel ischemic disease. No intracranial bleed or evidence of acute ischemic process. Paranasal sinuses disease. > Interpreting Provider: Ladi Malik MD on 05/03/2024 3:28 PM Jose Luis Patel MD IMG MRI ORDERABLES Final Result * (ABNORMAL) PT/PTT (05/03/2024 4:00 AM MEMBERSHIP COUNSELOR) PT Seconds Blood 15.4(H) 12.1 - 14.8 sec [facility] INR 1.2(H) 0.9 - 1.1 [facility] PTT Seconds Blood 24.3 23.0 - 38.4 sec [facility] Blood (Blood, Venous) 05/03/2024 4:00 AM MEMBERSHIP COUNSELOR 05/03/2024 4:52 AM MEMBERSHIP COUNSELOR Narrative [facility] - 05/03/2024 5:16 AM MEMBERSHIP COUNSELOR Conventional Warfarin Anticoagulant Therapy: INR Reference Range: 2.0-3.0 Intensive Warfarin Anticoagulant Therapy: INR Reference Range: 2.5-3.5 Heparin Therapeutic Range for PTT: 69.0 - 110.0 seconds. Oswaldo Page MD LAB BLOOD ORDERABLES Final Resul t [facility] [address] [place] [address] * Modified barium swallow study (04/29/2024 10:53 AM MEMBERSHIP COUNSELOR) Anatomical Region Laterality Modality Computed Radiogr aphy Impressions 04/29/2024 11:33 AM MEMBERSHIP COUNSELOR IMPRESSION: IMPRESSION: Modified barium swallow fluoroscopy as described. Please see detailed report from speech pathology staff. > Interpreting Provider: Blake Orta MD on 04/29/2024 11:33 AM Narrative 04/29/2024 11:33 AM MEMBERSHIP COUNSELOR NARRATIVE: MODIFIED BARIUM SWALLOW WITH SPEECH EVALUATION PROCEDURE: FL SWALLOWING FUNCTION STUDY CLINICAL INFORMATION (none relevant/not provided if blank): Indication: dysphagia: rule out aspiration and determin least restricitve diet. scheduled for 04/29/24 at 11:00 Additional History: Additional History: Dysphagia, oropharyngeal phase Technique: Modified barium swallow fluoroscopy performed in conjunction with speech pathology staff. The speech pathologist administered varying thickness barium liquids and solids under direct Cine fluoroscopy. Videotape capture images may have been stored, contact speech pathology for details if needed. FLUOROSCOPY DOSE: 22.37 mGy Reference air kerma (ka,r) in mGy. FINDINGS: . . Thin liquid: Reverting penetration but no aspiration. [place] thickness: No penetration or aspiration. Honey thickness: No penetration or aspiration. Pudding thickness: No penetration or aspiration. Solid cookie product: No penetration or aspiration. Procedure Note System, Provider Not In - 04/29/2024 NARRATIVE: MODIFIED BARIUM SWALLOW WITH SPEECH EVALUATION PROCEDURE: FL SWALLOWING FUNCTION STUDY CLINICAL INFORMATION (none relevant/not provided if blank): Indication: dysphagia: rule out aspiration and determin leastrestricitve diet. scheduled for 04/29/24 at 11:00 Additional History: Additional History: Dysphagia, oropharyngeal phase Technique: Modified barium swallow fluoroscopy performed in conjunction with speech pathology staff. The speech pathologist administered varying thickness barium liquids and solids under direct Cine fluoroscopy. Videotape capture images may have been stored, contact speech pathologyfor details if needed. FLUOROSCOPY DOSE: 22.37 mGy Reference air kerma (ka,r) in mGy. FINDINGS: . . Thin liquid: Reverting penetration but no aspiration. [place] thickness: No penetration or aspiration. Honey thickness: No penetration or aspiration. Pudding thickness: No penetration or aspiration. Solid cookie product: No penetration or aspiration. IMPRESSION: IMPRESSION: IMPRESSION: Modified barium swallow fluoroscopy as described. Please see detailed report from speech pathology staff. > Interpreting Provider: Blake Orta MD on 04/29/2024 11:33 AM You Arana MD IMG DIAGNOSTIC IMAGING ORDER MARISEL Final Result * XR chest 1 vws (04/28/2024 2:05 PM MEMBERSHIP COUNSELOR) Only the most recent of3 resultswithin the time period is included. Anatomical Region Laterality Modality Body Computed Radiogr aphy Impressions 04/28/2024 2:33 PM MEMBERSHIP COUNSELOR IMPRESSION: IMPRESSION: Persistent atelectasis within the right lung base but slight improved aeration compared to the prior. > Interpreting Provider: Jane Shaw MD on 04/28/2024 2:33 PM Narrative 04/28/2024 2:33 PM MEMBERSHIP COUNSELOR NARRATIVE: PROCEDURE: XR CHEST 1VW PORTABLE DATE/TIME OF EXAM: 04/28/2024 2:05 PM CLINICAL INFORMATION: None relevant/not provided if blank. Indication: Respiratory failure Additional History: Respiratory failure COMPARISON: 04/25/2024 FINDINGS: The lung volumes are small. There is slight improved aeration within the right lower lobe with increasing atelectasis. The left lung appears clear. A tracheostomy is seen in addition to a tunneled catheter. Procedure Note System, Provider Not In - 04/28/2024 NARRATIVE: PROCEDURE: XR CHEST 1VW PORTABLE DATE/TIME OF EXAM: 04/28/2024 2:05 PM CLINICAL INFORMATION: None relevant/not provided if blank. Indication: Respiratory failure Additional History: Respiratory failure COMPARISON: 04/25/2024 FINDINGS: The lung volumes are small. There is slight improved aeration within the right lower lobe with increasing atelectasis. The left lung appearsclear. A tracheostomy is seen in addition to a tunneled catheter. IMPRESSION: IMPRESSION: IMPRESSION: Persistent atelectasis within the right lung base but slight improved aeration compared to the prior. > Interpreting Provider: Jane Shaw MD on 04/28/2024 2:33 PM Tiago Armstrong MD IM DIAGNOSTIC IMAGING ORDER MARISEL Final Result * (ABNORMAL) Blood gas, arterial (04/28/2024 4:56 AM MEMBERSHIP COUNSELOR) Only the most recent of3 resultswithin the time period is included. pH, Arterial 7.58(A) 7.35 - 7.45 [facility]HOUSE PROCEDURES pCO2, Arterial 35 35 - 45 mm Hg [facility]HOUSE PROCEDURES pO2, Arterial 86 80 - 100 mmHg [facility]HOUSE PROCEDURES HCO3, Arterial 32.8(A) 21.0 - 28.0 mmol/L [facility]HOUSE PROCEDURES O2 Sat, Arterial 99(A) 95 - 98 % [facility]HOUSE PROCEDURES Base Excess, Arterial 10.3(A) -2.0 - 3.0 mmol/L [facility]HOUSE PROCEDURES Source Of Oxygen Heated high flow nasal cannula [facility]HOUSE PROCEDURES FIO2 30 [facility] IN-HOUS E PROCEDURES Blood, Arterial 04/28/2024 4 :56 AM MEMBERSHIP COUNSELOR us Tiago Armstrong MD LAB POINT OF CARE TEST ORDER MARISEL Final Result IN-HOUSE PROCEDURES * CT chest WO contrast (04/25/2024 3:55 PM MEMBERSHIP COUNSELOR) Anatomical Region Laterality Modality Body Computed Tomogra phy Impressions 04/26/2024 12:12 PM MEMBERSHIP COUNSELOR IMPRESSION: IMPRESSION: Medial bilateral lower lobe opacities. These demonstrate air bronchograms on the right greater than left, and could represent pneumonia or atelectasis. Correlation with the clinical picture is necessary. > Interpreting Provider: Nile Montiel MD on 04/26/2024 12:12 PM Narrative 04/26/2024 12:12 PM MEMBERSHIP COUNSELOR NARRATIVE: PROCEDURE: CT CHEST WO CONTRAST, DATE/TIME OF EXAM: 04/25/2024 3:57 PM, LOCATION [facility] INDICATION: right effusion and atelectasis ADDITIONAL CLINICAL INFORMATION: Ordering Provider Reason For Exam: Technologist Note: Additional: COMPARISON: 03/27/2024 TECHNIQUE: Multidetector CT scan of the chest was obtained without contrast. Coronal and sagittal reformatted images were obtained. CT dose reduction technique was used, including Automated Exposure Control. FINDINGS: The sensitivity for detection of solid visceral lesions is diminished without the use of intravenous contrast. HEART: Heart is within normal limits in size. No pericardial effusion. VASCULATURE: Proximal aspects of the great vessels are within normal limits in size. No significant coronary artery calcification is identified. MEDIASTINUM/LASHA: There is no gross hilar or mediastinal lymphadenopathy. There is no axillary, internal mammary, pericardiophrenic or retrocrural lymphadenopathy. UPPER ABDOMEN: G-tube is present within the stomach. Tracheostomy tube is noted. LUNGS/PLEURA: Trace bilateral pleural fluid. Opacities within the medial bilateral lower lobes are noted. These are new from the prior examination. Some air bronchograms are present, more pronounced on the right. 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 HARDWARE/LINES/TUBES: None. Procedure Note System, Provider Not In - 04/26/2024 NARRATIVE: PROCEDURE: CT CHEST WO CONTRAST, DATE/TIME OF EXAM: 04/25/2024 3:57 PM, LOCATION [facility] INDICATION: right effusion and atelectasis ADDITIONAL CLINICAL INFORMATION: Ordering Provider Reason For Exam: Technologist Note: Additional: COMPARISON: 03/27/2024 TECHNIQUE: Multidetector CT scan of the chest was obtained without contrast.Coronal and sagittal reformatted images were obtained. CT dose reduction technique was used, including Automated ExposureControl. FINDINGS: The sensitivity for detection of solid visceral lesions is diminished without the use of intravenous contrast. HEART: Heart is within normal limits in size. No pericardial effusion. VASCULATURE: Proximal aspects of the great vessels are within normallimits in size. No significant coronary artery calcification is identified. MEDIASTINUM/LASHA: There is no gross hilar or mediastinallymphadenopathy. There is no axillary, internal mammary, pericardiophrenic or retrocrural lymphadenopathy. UPPER ABDOMEN: G-tube is present within the stomach. Tracheostomy tubeis noted. LUNGS/PLEURA: Trace bilateral pleural fluid. Opacities within the medial bilateral lower lobes are noted. These are new from the priorexamination. Some air bronchograms are present, more pronounced on the right. 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 HARDWARE/LINES/TUBES: None. IMPRESSION: IMPRESSION: IMPRESSION: Medial bilateral lower lobe opacities. These demonstrate airbronchograms on the right greater than left, and could represent pneumonia or atelectasis. Correlation with the clinical picture is necessary. > Interpreting Provider: Nile Montiel MD on 04/26/2024 12:12 PM Tiago Armstrong MD IMG CT ORDERABLES Final Resu lt * (ABNORMAL) Creatinine clearance, urine, 24 hour (04/25/2024 10:36 AM MEMBERSHIP COUNSELOR) Volume Urine Total Ml 24Hr 2110 mL [facility] Collection Time Hrs Urine 24Hr 24 hrs [facility] Height Inches Cr Clear 70 inches [facility] Weight Pounds Cr Clear 308 pounds [facility] Surface area Cr clear 2.51 [facility] Creatinine mg/dL Blood Crclr 1.20(H) 0.57 - 1.11 mg/dL [facility] Creatinine Urine mg/dL 29.94 mg/dL [facility] Creatinine Urine mg/24Hr 632(L) 710 - 1650 mg/24hr [facility] Creat Clearance Ml/Min Urine 24 Hr 25(L) 66 - 165 mL/min/1.7 3m2 [facility] Urine (Urine, Catheter) 04/25/2024 10:36 AM MEMBERSHIP COUNSELOR 04/25/2024 10:53 AM MEMBERSHIP COUNSELOR Oswaldo Page MD LAB URINE ORDERABLES Final Resul t Performing Organization Address [facility]/ZIP Co de Phone Number [facility] [address] [place] [address] * (ABNORMAL) Protein, urine, 24 hour (04/25/2024 10:36 AM MEMBERSHIP COUNSELOR) Volume Urine Total Ml 24Hr 2110 mL [facility] Collection Time Hrs Urine 24Hr 24 hrs [facility] Protein Urine mg/24Hr 430(H) <300 mg/24hr [facility] Protein Urine mg/dL 20.4(H) <11.9 mg/dL [facility] Urine (Urine, Catheter) 04/25/2024 10:36 AM MEMBERSHIP COUNSELOR 04/25/2024 10:53 AM MEMBERSHIP COUNSELOR Oswaldo Page MD LAB URINE ORDERABLES Final Resul t Performing Organization Address City/[facility]/ZIP Co de Phone Number [facility] [address] [place] [address] * Phosphorus (04/25/2024 3:36 AM MEMBERSHIP COUNSELOR) Phosphorus mg/dL Blood 3.2 2.5 - 4.5 mg/dL [facility] Blood (Blood, Venous) 04/25/2024 3:36 AM MEMBERSHIP COUNSELOR 04/25/2024 5:15 AM MEMBERSHIP COUNSELOR Oswaldo Page MD LAB BLOOD ORDERABLES Final Resul t Performing Organization Address [facility]/ZIP Co de Phone Number [facility] [address] [place] [address] * (ABNORMAL) Comprehensive metabolic panel (04/25/2024 3:36 AM MEMBERSHIP COUNSELOR) Only the most recent of2 resultswithin the time period is included. Glucose mg/dL Blood 184(H) 70 - 99 mg/dL [facility] Sodium mmol/L Blood 139 136 - 145 mmol/L [facility] Potassium mmol/L Blood 3.2(L) 3.5 - 5.1 mmol/L [facility] Chloride 102 98 - 107 mmol/L [facility] CO2 28 22 - 29 mmol/L [facility] Calcium mg/dL Blood 8.2(L) 8.4 - 10.4 mg/dL [facility] Anion Gap Blood 9 6 - 16 mmol/L [facility] Bun mg/dL Blood 49(H) 7 - 26 mg/dL [facility] Creatinine 1.20(H) 0.57 - 1.11 mg/dL [facility] Alk Phos U/L Blood 77 40 - 150 U/L [facility] ALT/SGPT U/L Blood 18 0 - 55 U/L [facility] AST/SGOT U/L Blood 11 5 - 34 U/L [facility] Protein Total gm/dL Blood 5.2(L) 6.4 - 8.3 gm/dL [facility] Albumin gm/dL Blood 2.1(L) 3.4 - 5.0 gm/dL [facility] Bilirubin Total mg/dL Blood 0.5 0.2 - 1.2 mg/dL [facility] EGFRCR CKD-EPI 48(L) >=90 mL/min/1. 73 m2 [facility] Blood (Blood, Venous) 04/25/2024 3:36 AM MEMBERSHIP COUNSELOR 04/25/2024 5:15 AM MEMBERSHIP COUNSELOR us Oswaldo Page MD LAB BLOOD ORDERABLES Final Resul t [facility] [address] [place] [address] * (ABNORMAL) Urinalysis with reflex to culture (04/21/2024 5:10 AM MEMBERSHIP COUNSELOR) Color, Urine Yellow Yellow, Straw [facility] Clarity, Urine Clear Clear [facility] Glucose, Ur 3+(A) Normal [facility] Bilirubin Urine Negative Negative [facility] Ketones, urine Negative Negative [facility] Specific gravity 1.019 1.005 - 1.030 [facility] RBC, UA 2+(A) Negative [facility] pH, Urine 5.5 5.0 - 9.0 pH [facility] Protein, Ur 1+(A) Negative [facility] Urobilinogen, Urine Normal Normal mg/dL [facility] NITRITE Negative Negative [facility] Urine Leukocyte Esterase Negative Negative [facility] RBC UA 11-20(A) 0 - 5 # /hpf [facility] WBC UA 6-10(A) 0 - 5 # /hpf [facility] Bacteria, Urine None Seen None Seen [facility] Squamous epithelial 0-2 0 - 5 /hpf [facility] Mucus, UA 1+ /LPF [facility] MICROBIOLOGY Urine (Replaced Can) 04/21/2024 5:10 AM MEMBERSHIP COUNSELOR 04/21/2024 5:23 AM MEMBERSHIP COUNSELOR Narrative [facility] - 04/21/2024 5:31 AM MEMBERSHIP COUNSELOR Indications->Dysuria us You Arana MD LAB URINE ORDERABLES Final R esult [facility] [address] [place] [address] * PTH Intact w/o Calcium (04/21/2024 3:00 AM MEMBERSHIP COUNSELOR) PTH Intact pg/mL Blood 58.0 8.7 - 77.1 pg/mL [facility] Blood (Blood, Venous) 04/21/2024 3:00 AM MEMBERSHIP COUNSELOR 04/21/2024 9:55 AM MEMBERSHIP COUNSELOR Oswaldo Page MD LAB BLOOD ORDERABLES Final Resul t Performing Organization Address [facility] Co de Phone Number [facility] [address] [place] [address] * (ABNORMAL) Iron and TIBC (04/21/2024 3:00 AM MEMBERSHIP COUNSELOR) Iron ug/dL Blood 52 40 - 150 ug/dL [facility] Transferrin mg/dL Blood 147(L) 174 - 382 mg/dL [facility] TIBC Calculated mg/dL Blood 184(L) 240 - 450 ug/dL [facility]CRO[facility] Saturation % Blood 28 20 - 50 % [facility]CRO[facility] Blood (Blood, Venous) 04/21/2024 3:00 AM MEMBERSHIP COUNSELOR 04/21/2024 4:45 AM MEMBERSHIP COUNSELOR Oswaldo Page MD LAB BLOOD ORDERABLES Final Resul t Performing Organization Address [facility] Co de Phone Number [facility] [address] [place] [address] * (ABNORMAL) Ferritin (04/21/2024 3:00 AM MEMBERSHIP COUNSELOR) Ferritin ng/mL Blood 262(H) 5 - 204 ng/mL [facility]CRO[facility] Blood (Blood, Venous) 04/21/2024 3:00 AM MEMBERSHIP COUNSELOR 04/21/2024 4:45 AM MEMBERSHIP COUNSELOR Oswaldo Page MD LAB BLOOD ORDERABLES Final Resul t Performing Organization Address [facility] Co de Phone Number [facility] [address] [place] [address] * Hepatitis Acute Panel (2024 3:37 AM MEMBERSHIP COUNSELOR) Hep A Ab IgM Blood Non Reactive Non Reactive [facility] Hep B Surface Ag Blood Non Reactive Non Reactive [facility] Hep B Core Ab IgM Blood Non Reactive Non Reactive [facility] Hep C Ab Screen Blood Non Reactive Non Reactive [facility] Blood (Blood, Venous) 2024 3:37 AM MEMBERSHIP COUNSELOR 2024 9:58 AM MEMBERSHIP COUNSELOR Narrative [facility] - 2024 10:44 AM MEMBERSHIP COUNSELOR Non Reactive - Antibodies to Hepatitis C virus (HCV) were not detected, result does not exclude early acute HCV infection. You Arana MD LAB BLOOD ORDERABLES Final R esult Performing Organization Address [facility]/ZIP Co de Phone Number [facility] [address] [place] [address] * (ABNORMAL) MANUAL DIFFERENTIAL (04/19/2024 4:25 AM MEMBERSHIP COUNSELOR) NEUTROPHIL - MAN (DIFF) 84(H) 41 - 74 % [facility] LYMPHOCYTE - MAN (DIFF) 9(L) 17 - 47 % [facility] MONOCYTE - MAN (DIFF) 4 3 - 11 % [facility] EOSINOPHIL - MAN (DIFF) 1 0 - 7 % [facility] META MYELOCYTE - MAN (DIFF) 1(H) 0% % [facility]CRO[facility] MYELOCYTE - MAN (DIFF) 1(H) 0% % [facility] Neutrophils Absolute Count 4.37 1.60 - 7.50 x10E9/L [facility] Lymphocytes Absolute Count 0.47(L) 1.00 - 4.40 x10E9/L [facility] Monocytes Absolute Count 0.21 0.15 - 1.00 x10E9/L [facility] Eosinophils 0.05 0.00 - 0.60 x10E9/L [facility] RBC Morphology REVIEWED [facility] Ovalocytes MODERATE(A) (none) [facility] Blood 04/19/2024 4:25 AM MEMBERSHIP COUNSELOR 04/19/2024 4:37 AM MEMBERSHIP COUNSELOR You Arana MD LAB BLOOD ORDERABLES Final R esult [facility] [address] [place] [address] * TSH with reflex free T4 (04/19/2024 4:12 AM MEMBERSHIP COUNSELOR) TSH uIU/mL Blood ([facility]) (Tsh Reflex T4 Free) 1.244 0.350 - 4.940 uIU/mL [facility] Blood (Blood, Venous) 04/19/2024 4:12 AM MEMBERSHIP COUNSELOR 04/19/2024 4:37 AM MEMBERSHIP COUNSELOR You Arana MD LAB BLOOD ORDERABLES Final R esult Performing Organization Address [facility]/ZIP Co de Phone Number [facility] [address] [place] [address] * (ABNORMAL) CBC auto differential (04/19/2024 4:12 AM MEMBERSHIP COUNSELOR) WBC 5.2 4.0 - 10.7 x10E9/L [facility] RBC 3.24(L) 3.90 - 5.20 x10E12/L [facility] HGB gm/dL Blood 9.8(L) 11.9 - 15.8 g/dL [facility] Hematocrit 30.8(L) 34.8 - 46.1 % [facility] MCV 95.1 80.0 - 98.0 fL [facility] MCH 30.2 26.7 - 33.6 pg [facility] MCHC 31.8 31.7 - 36.3 g/dL [facility] RDW-CV 16.9(H) 11.3 - 14.8 % [facility] Platelet count 162 150 - 420 x10E9/L [facility] MPV 9.2 7.8 - 11.4 fL [facility] Blood (Blood, Venous) 04/19/2024 4:12 AM MEMBERSHIP COUNSELOR 04/19/2024 4:37 AM MEMBERSHIP COUNSELOR You Arana MD LAB BLOOD ORDERABLES Final R esult Performing Organization Address [facility]/ZIP Co de Phone Number [facility] [address] [place] [address] * Prealbumin (04/19/2024 4:12 AM MEMBERSHIP COUNSELOR) Prealbumin mg/dL Blood 18.0 14.0 - 37.0 mg/dL [facility] Blood (Blood, Venous) 04/19/2024 4:12 AM MEMBERSHIP COUNSELOR 04/19/2024 4:37 AM MEMBERSHIP COUNSELOR us You Arana MD LAB BLOOD ORDERABLES Final R esult [facility] [address] [place] [address] from Last 3 Months Advance Directives * Full Resuscitation (Latest Code Status on File) Date Activated Date Inactivated Comments 04/18/2024 11:12 PM 05/16/2024 5:58 PM Question Answer Comments I have discussed this order with the patient or his/her surrogate and have received informed consent. 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
--- OUTSIDE RECORDS SUMMARY | 2024-06-16 09:29 | XMS_ITS | CONTINUITY OF CARE DOCUMENT ---
Author Name yenni hyman Address Unknown Organization [facility] Address [address] [place] [address] Phone [phone] Care Team Providers Care [employer] Name Role Phone Jonathan APARICIO, Mariusz Unavailable CARLOS ALBERTO APARICIO, LÓPEZ Unavailable [phone] LÓPEZ CARCAMO MD Unavailable PROBLEMS Condition Status Date Provider Notes Palpitations active Mitchel Dupont OBESITY active Zi Chang RN HYPERKALEMIA active Zi Chang RN CHEST PAIN- ca score zero [...] In-person encounter Office Visit Mariusz Castillo MD [facility] Cardiology examination - In-person encounter Office Visit Mariusz Castillo MD [facility] Atrial fibrillation - In-person encounter Office Visit Mariusz Castillo MD [facility] Body mass index (BMI) 45.0-49.9, adult - In-person encounter Office Visit Mariusz Castillo MD [facility] Coronavirus infection 04/2019. - In-person encounter Office Visit Mariusz Castillo MD [facility] Vaccination--covid vaccine, pfizer 04/2020 - In-person encounter Office Visit Mariusz Castillo MD [facility] - In-person encounter Office Visit Mariusz Castillo MD [facility] - In-person encounter Office Visit Mariusz Castillo MD [facility] KAREN--severe 09/2020 not on cpap - In-person encounter Office Visit Mariusz Castillo MD [facility] CHEST PAIN- ca score zero 09/2020HTN--echo 65%, PA pressure 38,, 08/2020 - In-person encounter Office Visit Mariusz Castillo MD [facility] Prediabetes - In-person encounter Office Visit Mariusz Castillo MD [facility] Diabetes mellitusCoronavirus infection 04/2019. - In-person encounter Office Visit Mariusz Castillo MD [facility] Endometrial cancer s/p hysterectomy & radiationHyperlipidemia - In-person encounter Office Visit Mariusz Castillo MD [facility] - In-person encounter Office Visit Mariusz Castillo MD [facility] - In-person encounter Office Visit Mariusz Castillo MD [facility] Edema varicose veins - In-person encounter Office Visit Mariusz Castillo MD [facility] HTN--echo 65%, PA pressure 38,, RADYCARDIA, SINUSSinus bradycardia - In-person encounter Office Visit Mariusz Castillo MD [facility] - In-person encounter Office Visit Mariusz Castillo MD [facility] - In-person encounter Office Visit Mariusz Castillo MD [facility] - In-person encounter Office Visit Mariusz Castillo MD [facility] - In-person encounter Office Visit Mariusz Castillo MD [facility] HTN--echo 65%, PA pressure 38,, 08/2020 - In-person encounter Office Visit Mariusz Castillo MD [facility] - In-person encounter Office Visit Mariusz Castillo MD [facility] CHEST PAIN- ca score zero 09/2020HTN--echo 65%, PA pressure 38,, 08/2020 VITAL SIGNS Date Observation Value Provider Body Mass Index (Ratio) 45.60 kg/m2 Benedicto Castillo MD blood pressure, diastolic 85 mm[Hg] Casey Pepper blood pressure, systolic 144 mm[Hg] Shrari Pepper oxygen saturation, oximetry 99 % Julee Pepper pulse rate 95 /min Julee Pepper respiratory rate E&M 14 /min Julee Pepper weight E&M 327 [lb_av] Julee Pepper height E&M 71 [in_i] Julee Pepper blood pressure, cuff size large Casey coronado Pepper Body Mass Index (Ratio) 45.74 kg/m2 Benedicto Castillo MD blood pressure, diastolic 82 mm[Hg] Casey coronado [place] blood pressure, systolic 115 mm[Hg] Sharri wyman [place] oxygen saturation, oximetry 95 % Julee [place] pulse rate 87 /min Julee [place] respiratory rate E&M 14 /min Julee [place] weight E&M 328 [lb_av] Julee [place] height E&M 71 [in_i] Julee [place] blood pressure, cuff size large Casey coronado Pepper Body Mass Index (Ratio) 46.24 kg/m2 Benedicto Castillo MD blood pressure, diastolic 70 mm[Hg] Ri abel Dupont blood pressure, systolic 110 mm[Hg] Yoselin john Dupont pulse rate 81 /min Nile Chapa oxygen saturation, oximetry 97 % Nile Chapa weight E&M 331.6 [lb_av] Nile Chapa Body Mass Index (Ratio) 45.18 kg/m2 eBnedicto Castillo MD blood pressure, cuff size large [...] Carmelo blood pressure, diastolic 59 mm[Hg] Carmelo [facility] blood pressure, systolic 145 mm[Hg] Bunny [facility] pulse rate 52 /min [facility] oxygen saturation, oximetry 96 % [facility] respiratory rate E&M 12 /min [facility] weight E&M 319 [lb_av] [facility] height E&M 71 [in_i] [facility] Body Mass Index (Ratio) 42.67 kg/m2 [...] blood pressure, diastolic 82 mm[Hg] Ca therine Chancellor blood pressure, systolic 140 mm[Hg] Cat herine Chancellor oxygen saturation, oximetry 98 % Shefali Chancellor respiratory rate E&M 16 /min Catheri ne Cem pulse rate 68 /min Shefali Chancellor weight E&M 332 [lb_av] Shefali Cem blood pressure, cuff size large Ca therine Chancellor height E&M 71 [in_i] Shefali Chancellor Body Mass Index (Ratio) 46.30 kg/m2 Benedicto [...] Lauren stity Em pulse rate 79 /min [facility] respiratory rate E&M 16 /min Chastit y Em weight E&M 330 [lb_av] [facility] height E&M 71 [in_i] [facility] Em Body Mass Index (Ratio) 45.88 kg/m2 Benedicto Castillo MD blood pressure, cuff size large [facility] blood pressure, diastolic 90 mm[Hg] Ke rri [facility] blood pressure, systolic 142 mm[Hg] Cece [facility] oxygen saturation, oximetry 97 % Cortney Stephanienfcentral [facility] cent[facility]rer respiratory rate E&M 18 /min [...] blood pressure, systolic 108 mm[Hg] Ton viviana eLo pulse rate 69 /min Tonsha Leo oxygen [...] Yudy Estrada blood pressure, diastolic 80 mm[Hg] Yudy Estrada blood pressure, systolic 112 mm[Hg] Bryce [...] Finneganrojelioer respiratory rate E&M 16 /min Cortney Damico earlmarkmacario Body Mass Index (Ratio) 45.60 kg/m2 [...] blood pressure, systolic 156 mm[Hg] Melissa elda Fox pulse rate 54 /min Rahel Fox oxygen [...] cell distribution width, size density 44.7 fL [facility] - immature granulocytes, percentage of total cells, blood 0.3 % [facility] - nucleated red blood cells as percent of blood leukocytes 0.0 % [facility] - red blood cell (erythrocyte) count, per high power field 0.0 10*3/UL [facility] eosinophils as percent of blood leukocytes 3.6 % [facility] - neutrophils as percent of blood leukocytes 47.3 % [facility] - Absolute Neutrophils 3.3 CELLS/UL [facility] 1.5 - 7.8 basophils as percent of blood leukocytes 0.6 % [facility] - Absolute Basophils 0.0 CELLS/UL [facility] [...] erythrocyte count, whole blood 4.8 MILLION/U L [facility] 3.5 - 5.5 hemoglobin A1C, blood, as % of total hemoglobin 6.1 % [facility] 4.0 - 6.0 High platelet count 310 10*3/mm3 [facility] hematocrit, blood 38.3 % [facility] triglyceride, serum, fasting 164 mg/dL [facility] HDL cholesterol, serum 43 mg/dL [facility] cholesterol/HDL ratio, serum 4.2 [facility] lipoprotein, beta, serum, point, quantitative, calculated 103 mg/dL [facility] cholesterol, serum 179 mg/dL [facility] thyroid stimulating hormone, serum 2.51 u[IU]/mL [facility] alanine aminotransferase (SGPT), serum 22 1/L [facility] aspartate aminotransferase (SGOT), serum 14 1/L [facility] blood glucose, random 121 mg/dL [facility] creatinine, serum 0.81 mg/dL Hilario Myers urea nitrogen, blood 15 mg/dL Hilario Myers [...] 1 TABLET BY MOUTH EVERY DAY 11/02 Cortney Meza metformin 500 mg tablet active TAKE 1 [...] 1 tablet once a day 03/19 Cortney WALKERP VITAMIN C/CECILLE HIPS TABLET completed 06/22 - [...] no Mitchel Tangchristos alcohol use no Mitchel Dupont passive cigarette sm gato exposure no Mitchel Dupont smoking status Never smoker Mitchel Tangchristos drug use no Mitchel Tangchristos alcohol use no Mitchel Tangchristos passive cigarette sm gato exposure no Mitchel Dupont smoking status Never smoker Mitchel Tangchristos social history reviewed E&M revi ewed - no changes required Mitchel tellodelisa drug use no Ely Ventimig deborah [facility] alcohol use no Ely Ventimig deborah [facility] physical exercise, frequency, days per week no Juanasuleman Villanueva caffeine use, averag e drinks per day yes Juana Villanueva passive cigarette sm gato exposure no Juana Villanueva smoking status Never smoker Juana Villanueva social history E&M Marital Statu s: L dion with family/friends E thnicity: Smoking History: Carlee segura has never smoked. Mitchel Dupont smoking status Never smoker Makayla Garret social history reviewed E&M revi ewed - no changes required Mitchel Dupont physical exercise, frequency, days per week no Shefali Chancellor caffeine use, averag e drinks per day yes Shefali Chancellor passive cigarette sm gato exposure no Shefali Cem smoking status Never smoker Shefali Alia s social history reviewed E&M revi ewed - no changes required Mitchel Dupont social history E&M Marital Statu s: L dion with family/friends E thnicity: Smoking History: Carlee segura has never smoked. Mitchel Dupont physical exercise, frequency, days per week no Cortney Arpitmasoncandidotod caffeine use, averag e drinks per day yes Cortney Markossmithaperezer passive cigarette sm gato exposure no Cortney Burrowssarah bether smoking status Never smoker Cortney Yolanda dimas social history reviewed E&M revi ewed - no changes required Mitcheljohn Dupont physical exercise, frequency, days per week no Laurenstity Em caffeine use, averag e drinks per day yes Chastity Em passive cigarette sm gato exposure no Chastity Em smoking status Never smoker Laurenstity Hogu e social history E&M Marital Statu [...] exercise, frequency, days per week no Cortney Burrowssmithacandidotod caffeine use, averag e drinks per day yes Cortney Burrowsmicah passive cigarette sm gato exposure no Cortney Burrowsmicah smoking status Never smoker Cortney Burrowsshimamasonmoises dimas social history E&M Marital Statu s: L dion with family/friends E thnicity: Smoking History: Carlee segura has never smoked. Mariusz Castillo MD social history reviewed E&M revi ewed - no changes required Mariusz Castillo MD smoking status Never smoker Tonsha Leo physical exercise, frequency, days per week no [facility] caffeine use, averag e drinks per day yes [facility] passive cigarette sm gato exposure no [facility] social history reviewed E&M revi ewed - no changes required Mariusz Castillo MD smoking status Never smoker Kristine Osborne [facility] number of grandchildren Mariusz Castillo MD T reyes Castillo MD social history E&M Marital Statu s: L dion with family/friends E thnicity: Smoking History: P imelda has never smoked. Mariusz Castillo MD social history reviewed E&M revi ewed - no changes required Mariusz Castillo MD physical exercise, frequency, days per week no Cortney Meza alcohol counseling no Cortney ehss In the past 3 months , have [...] drugs? (CAGE substance use question #4) N Rkeha Estrada In the past 3 months , [...] Estrada passive cigarette sm gato exposure no Rekhasuleman Estrada smoking status Never smoker Rekha Estrada [...] no Rahel Fox smoking status Never smoker Rhael Gregorio moises social history reviewed E&M reviewed [...] use, averag e drinks per day yes [employer] alcohol use, average drinks per day social basis only [facility] smoking status Non-smoker [facility] MENTAL STATUS Date Observation Value Provider assessment [...] Payer name Policy type / Coverage type [facility] ID [place] [employer] [id number] [place] MEDICARE Medicare [id number] ADVANCE DIRECTIVES Name Date DISCUSSED - NO DECISION MADE TREATMENT PLAN Date Name Performer [id number],Mitchel Barry i [id number],Mitchel Barry i [id number],Mitchel Barry i [id number],Mitchel Barry i [id number],SMitchel i [id number],SMitchel i [id number],SMitchel i [id number],C,H gbA1C has been ordered per PCP. May [...] (Aspirin) ..... 1 tablet once a day [facility] [id number],C,e ncouraged compression and elevation [facility] [id number],C,o n zetia. Will update lipids H er updated medication list for this problem includes: Ezetimibe 10 Mg Tablet (Ezetimibe) ..... Take 1 tablet by mouth every day Orders: 9 9214 MOD 30-39min (CPT-17240) L IPID PANEL (1640) [facility] [id number],C,c ontrolled. asymptomatic at baseline. Will continue low dose BB and monitor H er updated medication list for this problem includes: Metoprolol Tartrate 25 Mg Tablet (Metoprolol tartrate) ..... Take 1 tablet by mouth twice daily Aspirin 325 Mg Tablet (Aspirin) ..... 1 tablet once a day [facility] [id number],C,B lood pressure controlled 133/65 today. Will continue [...] 1 tablet once a day Ely Childers [facility] [id number],S, Mitchel medza i [id number],B, Mitchel medza i [id number],S, Mitchel medza i [id number],S, Mitchel medza i [id number],S, Mitchel medza i [id number],S, Mitchel medza i [id number],S, Mitchel medza i [id number],S, Mitchel medza i [id number],S, Mitchel medza i [id number],S, Mitchel medza i [id number],S, Mitchel medza i [id number],B, [facility] [id number],S, Mariusz Castillo MD [id number],S, Mariusz Castillo MD [id number],S, Mariusz Castillo MD [id number],S, Mariusz Castillo MD [id number],S, Mariusz Castillo MD [id number],S, Mariusz Castillo MD [id number],S, [facility]chel [facility] [id number],S, [facility] [id number],S, [facility] [id number],S, Mitchel medza i [id number],S, Mitchel Tang i [id number],B, Mariusz Castillo MD [id number],S, Mariusz Castillo MD [id number],S, Mariusz Castillo MD [id number],S, Mariusz Castillo MD [id number],W, Mariusz Castillo MD [id number],B, Mariusz Castillo MD Cardiology:This visi t has [...] O rders: C OMPREHENSIVE METABOLIC PANEL, W/EGFR (09947) T SH, free T4, total T3 (7444) P ROBNP, N TERMINAL (67936) H EMOGLOBIN A1c (496) Mitchel Dupont Cardiology: O rders: C OMPREHENSIVE METABOLIC PANEL, W/EGFR (09749) T SH, free T4, total T3 (7444) P ROBNP, N TERMINAL (48444) H EMOGLOBIN A1c (496) BP today: 115/82 [...] O rders: C OMPREHENSIVE METABOLIC PANEL, W/EGFR (60998) T SH, free T4, total T3 (7444) P ROBNP, N TERMINAL (86039) H EMOGLOBIN A1c (496) Mitchel Tang Cardiology: O rders: C OMPREHENSIVE METABOLIC PANEL, W/EGFR (94839) T SH, free T4, total T3 (7444) P ROBNP, N TERMINAL (68833) H EMOGLOBIN A1c (496) Her updated medication list for this problem includes: Metoprolol Tartrate 25 Mg Tablet (Metoprolol tartrate) ..... Take 1 tablet by mouth twice a day Aspirin 325 Mg Tablet (Aspirin) ..... 1 tablet once a day Mitchel Tang Cardiology: O rders: C OMPREHENSIVE METABOLIC PANEL, W/EGFR (39438) T SH, free T4, total T3 (7444) P ROBNP, N TERMINAL (82818) H EMOGLOBIN A1c (496) Her updated medication list for this problem includes: Metoprolol Tartrate 25 Mg Tablet (Metoprolol tartrate) ..... Take 1 tablet by mouth twice a day Aspirin 325 Mg Tablet (Aspirin) ..... 1 tablet once a day Mitchel Tang Cardiology: O rders: C ardioversion (85757) T EE (68627) D oppler echocardiography color flow (89711) D oppler echocardiography, with spectral display (36862) C BC (INCLUDES DIFF/PLT) (6399) L IPID PANEL (6280) P ROTHROMBIN TIME WITH INR (8847) C OMPREHENSIVE METABOLIC PANEL, W/EGFR (05340) T SH, free T4, total T3 (7444) P ROBNP, N TERMINAL (09559) H EMOGLOBIN A1c (496) Her updated medication list for this problem includes: Metoprolol Tartrate 25 Mg Tablet (Metoprolol tartrate) ..... Take 1 tablet by mouth twice a day Aspirin 325 Mg Tablet (Aspirin) ..... 1 tablet once a day [facility] Telehealth: H er updated medication list for this problem includes: Losartan-hydrochlorothiazide 100-25 Mg Tablet (Losartan-hydrochlorothiazide) ..... Take 1 tablet by mouth every day Metformin 500 Mg Tablet (Metformin) ..... Take 1 tablet by mouth twice a day Aspirin 325 Mg Tablet (Aspirin) ..... 1 tablet once a day [facility] Telehealth: H er updated medication list for this problem includes: Metoprolol Tartrate 25 Mg Tablet (Metoprolol tartrate) ..... Take 1 tablet by mouth twice a day Losartan-hydrochlorothiazide 100-25 Mg Tablet (Losartan-hydrochlorothiazide) ..... Take 1 tablet by mouth every day Aspirin 325 Mg Tablet (Aspirin) ..... 1 tablet once a day [facility] Telehealth: H er updated medication list for this problem includes: Metoprolol Tartrate 25 Mg Tablet (Metoprolol tartrate) ..... Take 1 tablet by mouth twice a day Aspirin 325 Mg Tablet (Aspirin) ..... 1 tablet once a day [facility] Telehealth: H er updated medication list for this problem includes: Metoprolol Tartrate 25 Mg Tablet (Metoprolol tartrate) ..... Take 1 tablet by mouth twice a day Aspirin 325 Mg Tablet (Aspirin) ..... 1 tablet once a day Orders: M onitor - Telemetry (Mobile Cardiac) (CPT-59230) [facility] Cardiology:This visi t has been a part [...] day Orders: C OMPREHENSIVE METABOLIC PANEL, W/EGFR (70999) C BC (INCLUDES DIFF/PLT) (6399) L IPID PANEL (7600) P ROBNP, N TERMINAL (88863) H EMOGLOBIN A1c (496) Mariusz Castillo MD Cardiology: H er updated medication list for this problem includes: Losartan-hydrochlorothiazide 100-25 Mg Tablet (Losartan-hydrochlorothiazide) ..... Take 1 tablet by mouth every day Metformin 500 Mg Tablet (Metformin) ..... Take 1 tablet by mouth twice a day Aspirin 325 Mg Tablet (Aspirin) ..... 1 tablet once a day Orders: C OMPREHENSIVE METABOLIC PANEL, W/EGFR (69496) C BC (INCLUDES DIFF/PLT) (6399) L IPID PANEL (7600) P ROBNP, N TERMINAL (03083) H EMOGLOBIN A1c (496) [facility] Cardiology: O rders: C OMPREHENSIVE METABOLIC PANEL, W/EGFR (55241) C BC (INCLUDES DIFF/PLT) (6399) L IPID PANEL (7600) P ROBNP, N TERMINAL (33833) H EMOGLOBIN A1c (496) [facility] Cardiology: O rders: C OMPREHENSIVE METABOLIC PANEL, W/EGFR (49172) C BC (INCLUDES DIFF/PLT) (6399) L IPID PANEL (7600) P ROBNP, N TERMINAL (21262) H EMOGLOBIN A1c (496) [facility] Cardiology: O rders: C OMPREHENSIVE METABOLIC PANEL, W/EGFR (06685) C BC (INCLUDES DIFF/PLT) (6399) L IPID PANEL (7600) P ROBNP, N TERMINAL (36998) H EMOGLOBIN A1c (496) [facility]: H er updated medication list for this problem includes: Metoprolol Tartrate 25 Mg Tablet (Metoprolol tartrate) ..... Take 1 tablet by mouth twice a day Losartan-hydrochlorothiazide 100-25 Mg Tablet (Losartan-hydrochlorothiazide) ..... Take 1 tablet by mouth every day Aspirin 325 Mg Tablet (Aspirin) ..... 1 tablet once a day Orders: C OMPREHENSIVE METABOLIC PANEL, W/EGFR (81213) C BC (INCLUDES DIFF/PLT) (6399) L IPID PANEL (7600) P ROBNP, N TERMINAL (62291) H EMOGLOBIN A1c (496) Mitchel Dupont Cardiology: H er updated medication list for this problem includes: Metoprolol Tartrate 25 Mg Tablet (Metoprolol tartrate) ..... Take 1 tablet by mouth twice a day Aspirin 325 Mg Tablet (Aspirin) ..... 1 tablet once a day Orders: C OMPREHENSIVE METABOLIC PANEL, W/EGFR (20641) C BC (INCLUDES DIFF/PLT) (6399) L IPID PANEL (7600) P ROBNP, N TERMINAL (85042) H EMOGLOBIN A1c (496) Mitchel Dupont Cardiology: [...] (Aspirin) ..... 1 tablet once a day [facility] Cardiology: H er updated medication list for this problem includes: Losartan-hydrochlorothiazide 100-25 Mg Tablet (Losartan-hydrochlorothiazide) ..... Take 1 tablet by mouth every day Metformin 500 Mg Tablet (Metformin) ..... Take 1 tablet by mouth twice a day Aspirin 325 Mg Tablet (Aspirin) ..... 1 tablet once a day [facility]iology [facility] Cardiology: H er updated medication list for this problem includes: Rosuvastatin 20 Mg Tablet (Rosuvastatin) ..... Take 1 tablet by mouth every day Ezetimibe 10 Mg Tablet (Ezetimibe) ..... Take 1 tablet by mouth every day [facility] Cardiology [facility] Cardiology:HgbA1C hugo s been ordered per PCP. [...] 1 tablet once a day Ely Ventimiglia [facility] Cardiology:encouraged compressio n and elevation Ely Ventimiglia [facility] Cardiology:on zetia. Will update lipids H er updated medication list for this problem includes: Ezetimibe 10 Mg Tablet (Ezetimibe) ..... Take 1 tablet by mouth every day Orders: 9 9214 MOD 30-39min (CPT-94788) L IPID PANEL (7600) Ely Childers [facility] Cardiology:controlle d. asymptomatic at baseline. Will continue low dose BB and monitor H er updated medication list for this problem includes: Metoprolol Tartrate 25 Mg Tablet (Metoprolol tartrate) ..... Take 1 tablet by mouth twice daily Aspirin 325 Mg Tablet (Aspirin) ..... 1 tablet once a day Ely Childers [facility] Cardiology:Blood pre ssure controlled 133/65 today. Will [...] (Aspirin) ..... 1 tablet once a day Elygerardo Childers [facility] Cardiology Mitchel Ahmedzai Cardiology Mitchel Ahmedzai Cardiology [...] Mitchel Ahmedzai Cardiology Mitchel Ahmedzai Cardiology Mitchel Ahanurag Cardiology Mariusz Castillo MD Cardiology Mariusz Castillo [...] up - Toniya Jessica garcia MD Cardiology Tonsaturnino Castillo MD Cardiology Mariusz Castillo MD Cardiology Mariusz Castillo MD Cardiology Mariusz Castillo MD Cardiology Tonsaturnino Castillo MD Cardiology Mariusz Castillo MD Cardiology Mariusz Castillo MD Cardiology Tonsaturnino Castillo MD Cardiology Mariusz Castillo MD Cardiology Mariusz Castillo MD Cardiology Follow up Mariusz sanchez MD Cardiology Follow up :please check your bp daily Goal BP is as close to 120/80 as possible Mariusz Castillo MD Cardiology Follow up Tonsaturnino sanchez MD Cardiology Follow up Tonsaturnino sanchez MD Cardiology Follow up Toniya Mohan sanchez MD Cardiology Follow up Tonifabian sanchez MD Cardiology Follow up Tonifabian sanchez MD Cardiology Follow up Tonsaturnino sanchez MD Cardiology Follow up Tonifabian sanchez MD Cardiology Follow up Tonifabian sanchez MD Cardiology Follow up Tonsaturnino sanchez MD Cardiology Follow up Tonsaturnino sanchez MD FOLLOW UP: H er updated medication list for this problem includes: Metoprolol Tartrate 25 Mg Tabs (Metoprolol tartrate) ..... One tab. twice daily Hydrochlorothiazide 25 Mg Tabs (Hydrochlorothiazide) ..... One tab daily Aspirin 325 Mg Tabs (Aspirin) ..... One tab daily Orders: E KG (CPT-49769) BP today: 138/67 P rior BP: 156/88 [...] ..... One tab daily Orders: E KG (CPT-46440) BP today: 156/88 Prior BP: 146/80 (06/21/2012) C ardiac Cath: Normal LV systolic function. Normal coronary disease. Pursue risk factor modification. [facility] (11/13/2003) Mariusz Castillo MD Follow Up: H [...] Normal coronary disease. Pursue risk factor modification. [facility] (11/13/2003) Mariusz Castillo MD follow up: H er updated medication list for this problem includes: Metoprolol Tartrate 25 Mg Tabs (Metoprolol tartrate) ..... One tab. twice daily Aspirin 325 Mg Tabs (Aspirin) ..... One tab daily Orders: Amara KG ([id number]) BP today: 146/80 Prior BP: 152/87 (06/23/2011) C ardiac Cath: Normal LV systolic function. Normal coronary disease. Pursue risk factor modification. [facility] (11/13/2003) Mariusz Castillo MD follow up: H [...] Normal coronary disease. Pursue risk factor modification. [facility] (11/13/2003) Mariusz Castillo MD follow up: H er updated medication list for this problem includes: Metoprolol Tartrate 25 Mg Tabs (Metoprolol tartrate) ..... One tab. twice daily Aspirin 325 Mg Tabs (Aspirin) ..... One tab daily BP today: 152/87 Prior BP: 155/83 (06/25/2009) C ardiac Cath: Normal LV systolic function. Normal coronary disease. Pursue risk factor modification. [facility] (11/13/2003) Echocardiogram: Normal left ventricular systolic function. [...] ..... One tab daily Orders: E KG ([id number]) BP today: 152/87 Prior BP: 155/83 (06/25/2009) [...] Normal coronary disease. Pursue risk factor modification. [facility] (11/13/2003) Mariusz Castillo MD : H er updated medication list for this problem includes: Metoprolol Tartrate 25 Mg Tabs (Metoprolol tartrate) ..... One tab. twice daily Aspirin 325 Mg Tabs (Aspirin) ..... One tab daily BP today: / Prior BP: 155/83 (06/25/2009) C ardiac Cath: Normal LV systolic function. Normal coronary disease. Pursue risk factor modification. [facility] (11/13/2003) E chocardiogram: TDS. LV chamber size and wall thickness is normal. Normal LV function. LV EF is estimated at 60%. Mild LAE. Thickened MVL. Trace MR. Trace TR. Right heart pressure could not be adequately evaluated. [facility] (07/10/2008) Mariusz Castillo MD Mariusz Castillo MD [...] Normal coronary disease. Pursue risk factor modification. [facility] (11/13/2003) E chocardiogram: Normal echo. EF 60%. [facility] (07/05/2007) Orders: Amara KG ([id number]) Mariusz Castillo MD Date Name Holter Monitor [...] completed EKG Mariusz Castillo MD completed SNOMED-CT: [id number] [id number] Current Medications Documented Mariusz Castillo MD completed SNOMED-CT: [id number] Physical Exam, Performed: Pulse Exam of Foot Mariusz Castillo MD completed SNOMED-CT: [id number] Physical Exam, Performed: Pulse Exam of Foot Mariusz Castillo MD completed EKG Mariusz Castillo MD completed SNOMED-CT: [id number] Current Medications Documented Mariusz Castillo MD completed EKG Mariusz Castillo MD completed EKG Mariusz Castillo MD completed EKG Mariusz Castillo MD completed EKG Mariusz Castillo MD completed EKG Mariusz Castillo MD completed
--- OUTSIDE RECORDS SUMMARY | 2024-06-16 09:30 | XMS_ITS | Clinical Summary ---
Author Organization [facility] Address [address] [place] [address] Care Team Providers Care Lens Blocker Name Role Phone Walt Kirk MD Primary Care Provider [phone] Source Comments [facility],non-owned Affiliates and Associated Physician Practices is amultiple site organization consisting of ambulatory clinics and hospital sitesin [place], [place], [place] and [place]. This disclosure is being madepursuant to the Care Everywhere program and may not contain all information available regarding this patient. Last updated 17.[facility] Allergies No known active allergies Encounters Date Type Department Care Team Description 04/19/2024 1:52 AM PSYCHIC READER - 04/19/2024 11:59 PM PSYCHIC READER Hospital Encounter [facility] Imaging Services - Radiology [address] [place] [address] Tiago Armstrong MD Discharge Disposition: Home or Self Care 04/18/2024 9:20 PM PSYCHIC READER - 05/16/2024 2:33 PM CDT Hospital Encounter [facility] A [address] [place] [address] You Arana MD Correction Care Discharge Disposition: Rehab:Inpatient from Last 3 Months Social History Tobacco Use Types Packs/Day Years Used Date Smoking Tobacco: Never Assessed Comments Unknown Sex and Gender Information Value Date Recorded Sex Assigned at Not on file Legal Sex Female 4:08 AM CDT Gender Identity Not on file Sexual Orientation Not on file Plan of Treatment Health Maintenance Due Date Last Done Comments BONE DENSITY TESTING 1955 COLOGUARD (AGES 45-75) - COLON CA SCREENING 1955 COLON MONITORING 1955 COLONOSCOPY - COLON CA SCREENING 1955 CT COLONOGRAPHY - COLON CA SCREENING 1955 Colorectal Cancer Screening 1955 FIT - COLON CA SCREENING 1955 FLEX SIG - COLON CA SCREENING 1955 LIPID TESTING 1955 MAMMOGRAM 1955 MEDICARE AWV 12 MONTHS 1955 DTAP/TDAP/TD VACCINES (1 - Tdap) 1972 PNEUMOCOCCAL VACCINE 50+ (1 of 1 - PCV) 2003 ZOSTER VACCINE (1 of 2) 2003 COVID-19 VACCINE (3 - season) 2023 05/06/2020, 04/14/2020 DEPRESSION SCREENING 03/02/2024 INFLUENZA VACCINE (Season Ended) 2024 02/10/2022, 01/30/2020, 12/02/2019, Additional history exists Respiratory Syncytial Virus (RSV) Vaccine Pt: or over 60 yrs (1 - 1-dose 75+ series) 2028 HEPATITIS C SCREENING Completed 2024, 025 HEPATITIS B VACCINE Aged Out No longe r eligible based on patient's age to complete this topic HIB VACCINE Aged Out No longer eligi ble based on patient's age to complete this topic HPV VACCINE Aged Out No longer eligi ble based on patient's age to complete this topic MENINGOCOCCAL (Group B) VACCINE SHARED DECISION-MAKING Aged Out No longer eligible based on patient's age to complete this topic MENINGOCOCCAL GROUPS A/C/Y/W VACCINE Aged Out No longer eligible based on patient's age to complete this topic Procedures Procedure Name Priority Date/Time Associated Diagnosis Comments RENAL FUNCTION PANEL Routine 05/16/2024 4:50 AM CDT CBC W/O DIFFERENTIAL Routine 05/16/2024 4:50 AM CDT RENAL FUNCTION PANEL Routine 05/14/2024 4:30 AM CDT CBC W/O DIFFERENTIAL Routine 05/14/2024 4:30 AM CDT PROTEIN CREATININE RATIO URINE RANDOM PNL Routine 05/12/2024 11:38 AM CDT SODIUM URINE RANDOM Routine 05/12/2024 1 1:38 AM CDT CHLORIDE URINE RANDOM Routine 05/12/2024 11:38 AM CDT RENAL FUNCTION PANEL Routine 05/12/2024 4:24 AM CDT RENAL FUNCTION PANEL Routine 05/11/2024 4:30 AM CDT RENAL FUNCTION PANEL Routine 05/10/2024 3:59 AM CDT EEG Routine 05/09/2024 12:00 PM CDT RENAL FUNCTION PANEL Routine 05/09/2024 6:11 AM CDT CBC W/O DIFFERENTIAL Routine 05/09/2024 6:11 AM CDT BASIC METABOLIC PANEL (CALCIUM TOTAL) Routine 05/07/2024 4:35 AM PSYCHIC READER RENAL FUNCTION PANEL Routine 05/07/2024 4:30 AM PSYCHIC READER RENAL FUNCTION PANEL Routine 05/04/2024 4:16 AM PSYCHIC READER IR CENTRAL LINE REMOVAL Routine 05/03/2024 3:42 PM PSYCHIC READER ESRD (end stage renal disease) MRI BRAIN WO CONTRAST Routine 05/03/2024 3:02 PM PSYCHIC READER RENAL FUNCTION PANEL Routine 05/03/2024 4:30 AM PSYCHIC READER PT PTT PANEL Routine 05/03/2024 4:30 AM PSYCHIC READER CBC W/O DIFFERENTIAL Routine 05/03/2024 4:30 AM PSYCHIC READER FL SWALLOWING FUNCTION STUDY Routine 04/29/2024 10:53 AM PSYCHIC READER XR CHEST 1VW PORTABLE Routine 04/28/2024 2:05 PM PSYCHIC READER BLOOD GASES ART + COOX PANEL Routine 04/28/2024 5:11 AM PSYCHIC READER RENAL FUNCTION PANEL Routine 04/28/2024 2:[address] CHEST WO CONTRAST Routine 04/25/2024 3:55 PM PSYCHIC READER PROTEIN URINE TIMED QUANTITATIVE Routine 04/25/2024 10:35 AM PSYCHIC READER CREATININE CLEARANCE URINE TIMED + BLOOD Routine 04/25/2024 10:35 AM PSYCHIC READER SODIUM URINE RANDOM Routine 04/25/2024 1 0:35 AM PSYCHIC READER PROTEIN CREATININE RATIO URINE RANDOM PNL Routine 04/25/2024 10:35 AM PSYCHIC READER CHLORIDE URINE RANDOM Routine 04/25/2024 10:35 AM PSYCHIC READER BLOOD GASES ART + COOX PANEL Routine 04/25/2024 5:22 AM PSYCHIC READER PHOSPHORUS BLOOD Routine 04/25/2024 5:00 AM PSYCHIC READER COMPREHENSIVE METABOLIC PANEL Routine 04/25/2024 5:00 AM PSYCHIC READER CBC W/O DIFFERENTIAL Routine 04/25/2024 5:00 AM PSYCHIC READER XR CHEST 1VW PORTABLE Routine 04/25/2024 3:34 AM PSYCHIC READER CBC W/O DIFFERENTIAL Routine 04/22/2024 4:15 AM PSYCHIC READER RENAL FUNCTION PANEL Routine 04/22/2024 4:15 AM PSYCHIC READER PROTEIN CREATININE RATIO URINE RANDOM PNL Routine 04/21/2024 1:50 PM PSYCHIC READER SODIUM URINE RANDOM Routine 04/21/2024 1 :50 PM PSYCHIC READER CHLORIDE URINE RANDOM Routine 04/21/2024 1:50 PM PSYCHIC READER URINALYSIS REFLEX MICROSCOPIC REFLEX CULTURE Routine 04/21/2024 5:15 AM PSYCHIC READER FERRITIN Routine 04/21/2024 4:20 AM PSYCHIC READER IRON + TRANSFERRIN PANEL Routine 04/21/2024 4:20 AM PSYCHIC READER PTH INTACT W/O CALCIUM Routine 04/21/2024 4:20 AM PSYCHIC READER RENAL FUNCTION PANEL Routine 2024 4:45 AM PSYCHIC READER HEPATITIS SCREEN ACUTE Routine 2024 4:45 AM PSYCHIC READER BLOOD GASES ART + COOX PANEL RT Routine 04/19/2024 10:52 AM PSYCHIC READER XR CHEST 1VW PORTABLE Routine 04/19/2024 5:34 AM PSYCHIC READER DIFFERENTIAL MANUAL Routine 04/19/2024 4 :25 AM PSYCHIC READER PREALBUMIN Routine 04/19/2024 4:25 AM PSYCHIC READER TSH REFLEX FREE T4 Routine 04/19/2024 4: 25 AM PSYCHIC READER COMPREHENSIVE METABOLIC PANEL Routine 04/19/2024 4:25 AM PSYCHIC READER CBC W AUTO DIFFERENTIAL Routine 04/19/2024 4:25 AM PSYCHIC READER from Last 3 Months Results * (ABNORMAL) CBC W/O DIFFERENTIAL (05/16/2024 4:50 AM CDT) Only the most recent of6 resultswithin the time period is included. WBC 9.4 4.0 - 10.7 x10E9/L 05/16/2024 5:25 AM CDT [facility] RBC Count 3.72(L) 3.90 - 5.20 x10E12/L 05/16/2024 5:25 AM CDT [facility] Hemoglobin 11.7(L) 11.9 - 15.8 g/dL 05/16/2024 5:25 AM CDT [facility] Hematocrit 36.4 34.8 - 46.1 % 05/16/2024 5:25 AM CDT [facility] MCV 97.8 80.0 - 98.0 fL 05/16/2024 5:25 AM CDT [facility] MCH 31.5 26.7 - 33.6 pg 05/16/2024 5:25 AM CDT [facility] MCHC 32.1 31.7 - 36.3 g/dL 05/16/2024 5:25 AM [facility] RDW-CV 17.0(H) 11.3 - 14.8 % 05/16/2024 5:25 AM CDT [facility] Platelet Count 236 150 - 420 x10E9/L 05/16/2024 5:25 AM CDT [facility] MPV 9.0 7.8 - 11.4 fL 05/16/2024 5:25 AM [facility] Blood BLOOD SPECIMEN / Unknown Venipuncture / Unknown 05/16/2024 4:50 AM CDT 05/16/2024 5:14 AM CDT us Oswaldo Page MD LAB - HEMATOLOGY ORDERABLES Kelly l Result [facility] [address] [place] [address] * (ABNORMAL) RENAL FUNCTION PANEL (05/16/2024 4:50 AM CDT) Only the most recent of12 resultswithin the time period is included. [facility] Glucose 123(H) 70 - 99 mg/dL 05/16/2024 5:38 AM CDT [facility] Sodium 145 136 - 145 mmol/L 05/16/2024 5:38 AM CDT [facility] Potassium 3.9 3.5 - 5.1 mmol/L 05/16/2024 5:38 AM [facility] Chloride 106 98 - 107 mmol/L 05/16/2024 5:38 AM [facility] CO2 29 22 - 29 mmol/L 05/16/2024 5:38 AM [facility] Calcium 8.7 8.4 - 10.4 mg/dL 05/16/2024 5:38 AM [facility] Anion Gap 10 6 - 16 mmol/L 05/16/2024 5:38 AM [facility] BUN 36(H) 7 - 26 mg/dL 05/16/2024 5:38 AM [facility] Creatinine 1.10 0.57 - 1.11 mg/dL 05/16/2024 5:38 AM [facility] Albumin 2.4(L) 3.4 - 5.0 gm/dL 05/16/2024 5:38 AM [facility] Phosphorus 3.4 2.5 - 4.5 mg/dL 05/16/2024 5:38 AM [facility] eGFR by CKD-EPI 54(L) >=90 mL/min/1.7 3 m2 05/16/2024 5:38 AM [facility] Blood BLOOD SPECIMEN / Unknown Venipuncture / Unknown 05/16/2024 4:50 AM CDT 05/16/2024 5:14 AM CDT Oswaldo Page MD LAB - CHEMISTRY ORDERABLES Final Result [facility] [address] [place] [address] * SODIUM URINE RANDOM (05/12/2024 11:38 AM CDT) Only the most recent of3 resultswithin the time period is included. Sodium Urine 44 mmol/L 05/12/2024 12:14 PM [facility] Urine URINE SPECIMEN COLLECTION, CATHETERIZED / Unknown 05/12/2024 11:38 AM CDT 05/12/2024 11:51 AM CDT Oswaldo Page MD LAB - URINE CHEMISTRY ORDERABLES Final Result Performing Organization Address City/[facility]/ZIP Co de Phone Number [facility] [address] [place] [address] * (ABNORMAL) PROTEIN CREATININE RATIO URINE RANDOM PNL (05/12/2024 11:38 AM CDT) Only the most recent of3 resultswithin the time period is included. Protein Urine 129.4(H) <11.9 mg/dL 05/12/2024 12:14 PM CDT [facility] Creatinine Urine 52.73 mg/dL 05/12/2024 12:14 PM CDT [facility] Protein/Creatin ine Ratio Urine 2.45 05/12/2024 12:14 PM CDT [facility] Urine URINE SPECIMEN COLLECTION, CATHETERIZED / Unknown 05/12/2024 11:38 AM CDT 05/12/2024 11:51 AM CDT Oswaldo Page MD LAB - URINE CHEMISTRY ORDERABLES Final Result Performing Organization Address [facility] Co de Phone Number [facility] [address] [place] [address] * CHLORIDE URINE RANDOM (05/12/2024 11:38 AM CDT) Only the most recent of3 resultswithin the time period is included. Chloride Urine 51.0 mmol/L 05/12/2024 12:14 PM CDT [facility] Urine URINE SPECIMEN COLLECTION, CATHETERIZED / Unknown 05/12/2024 11:38 AM CDT 05/12/2024 11:51 AM CDT Oswaldo Page MD LAB - URINE CHEMISTRY ORDERABLES Final Result Performing Organization Address City/[facility] Co de Phone Number [facility] [address] [place] [address] * EEG (05/09/2024 12:00 PM CDT) 05/09/2024 12:0 0 PM CDT Narrative Procedure Note Jose Luis Patel MD - 05/09/2024 6:45 PM CDT [facility] Electroencephalogram Report PATIENT NAME: YULIA FRANCISCO MR#: [id number] ROOM#: [id number] CSN: [id number] ADMISSION DATE: 04/18/2024 SEX: F : 1955 DATE OF TEST: 05/09/2024 EEG NUMBER: This is a routine 17-channel EEG tracing consisted of 16 channels of EEGand 1 channel of EKG monitoring performed on a 69-year-old patient who presentedwith mental status changes. The condition of the patient during tracing wasreported to be awake and drowsy. Quality of the study was good. The background activity consisted of moderate amplitude 4 to 7 Hz thetarhythm. The background was poorly organized without good posterior to anteriorgradient. Photic stimulation did not elicit any abnormalities. There were noepileptiform discharges noticed. The EKG tracing showed a regular heart rate. IMPRESSION: This is an abnormal EEG with generalized background slowingand poor organization, which is consistent with mild encephalopathy. Theabove findings are nonspecific, which could be seen in the settings ofmetabolic, toxic, hypoxic, or infectious etiologies. Clinical correlation issuggested. DICTATOR: JOSE LUIS PATEL M.D. MP/MODL #:[id number] cc: You Arana MD us You Arana MD NEUROLOGY ORDERABLES Final R esult [facility] * (ABNORMAL) BASIC METABOLIC PANEL (CALCIUM TOTAL) (05/07/2024 4:35 AM PSYCHIC READER) Glucose 108(H) 70 - 99 mg/dL 05/08/2024 5:05 AM [facility] Sodium 142 136 - 145 mmol/L 05/08/2024 5:05 AM [facility] Potassium 4.1 3.5 - 5.1 mmol/L 05/08/2024 5:05 AM [facility] Chloride 100 98 - 107 mmol/L 05/08/2024 5:05 AM [facility] CO2 33(H) 22 - 29 mmol/L 05/08/2024 5:05 AM T [facility] Calcium 8.2(L) 8.4 - 10.4 mg/dL 05/08/2024 5:05 AM [facility] Anion Gap 9 6 - 16 mmol/L 05/08/2024 5:05 AM T [facility] BUN 47(H) 7 - 26 mg/dL 05/08/2024 5:05 AM [facility] Creatinine 1.08 0.57 - 1.11 mg/dL 05/08/2024 5:05 AM [facility] eGFR by CKD-EPI 55(L) >=90 mL/min/1.7 3 m2 05/08/2024 5:05 AM [facility] Blood BLOOD SPECIMEN / Unknown Venipuncture / Unknown 05/07/2024 4:35 AM PSYCHIC READER 05/08/2024 4:46 AM CDT us Provider Unknown LAB - CHEMISTRY ORDERABLES Kelly l Result [facility] [address] [place] [id number] * IR Central Line Removal (05/03/2024 3:42 PM PSYCHIC READER) Anatomical Region Laterality Modality X-Ray Angiograph y 05/03/2024 4:04 PM PSYCHIC READER Impressions 05/03/2024 4:05 PM PSYCHIC READER IMPRESSION: Successful removal of tunneled left IJ hemodialysis catheter under fluoroscopic guidance. > Interpreting Provider: Casandra Parker MD on 05/03/2024 4:05 PM Narrative 05/03/2024 4:05 PM PSYCHIC READER PROCEDURE: TUNNELED LEFT IJ HEMODIALYSIS CATHETER REMOVAL DATE/TIME OF EXAM: 05/03/2024 3:43 PM CLINICAL INFORMATION: None relevant/not provided if blank. Indication: N18.6: End stage renal disease (HCC) Additional History: COMPARISON: None. FLUOROSCOPY DOSE: 2.2 mGy Reference air kerma (ka,r). FINDINGS: The patient was placed supine on the procedure table. The left neck along with the catheter was prepped and draped in the usual sterile manner. A hadoop infrastructure architect radiograph of the chest was obtained, which showed the existing central line overlying the chest. After blunt dissection, the central line was removed in its entirety with the patient suspending respiration. Final fluoroscopic imaging showed no residual catheter fragment after hemostasis was achieved and sterile dressing was applied. There were no immediate complications associated with the procedure. Procedure Note Casandra Parker MD - 05/03/2024 PROCEDURE: TUNNELED LEFT IJ HEMODIALYSIS CATHETER REMOVAL DATE/TIME OF EXAM: 05/03/2024 3:43 PM CLINICAL INFORMATION: None relevant/not provided if blank. Indication: N18.6: End stage renal disease (HCC) Additional History: COMPARISON: None. FLUOROSCOPY DOSE: 2.2 mGy Reference air kerma (ka,r). FINDINGS: The patient was placed supine on the procedure table. The left neckalong with the catheter was prepped and draped in the usual sterile manner. A hadoop infrastructure architect radiograph of the chest was obtained, which showed the existing central line overlying the chest. After blunt dissection, the central line was removed in its entiretywith the patient suspending respiration. Final fluoroscopic imaging showed no residual catheter fragment after hemostasis was achieved and sterile dressing was applied. There were no immediate complications associated with the procedure. IMPRESSION: Successful removal of tunneled left IJ hemodialysis catheter under fluoroscopic guidance. > Interpreting Provider: Casandra Parker MD on 05/03/2024 4:05 PM Oswaldo Page MD IR ORDERABLES Final Result * MRI Brain Wo Contrast (05/03/2024 3:02 PM PSYCHIC READER) Anatomical Region Laterality Modality Head Magnetic Resonan ce 05/03/2024 3:23 PM PSYCHIC READER Impressions 05/03/2024 3:28 PM PSYCHIC READER IMPRESSION: Involutional changes. Mostly subcortical small vessel ischemic disease. No intracranial bleed or evidence of acute ischemic process. Paranasal sinuses disease. > Interpreting Provider: Ladi Malik MD on 05/03/2024 3:28 PM Narrative 05/03/2024 3:28 PM PSYCHIC READER PROCEDURE: MRI BRAIN WO CONTRAST, DATE/TIME OF [...] evidence of acute ischemic process. Procedure Note Ladi Malik MD - 05/03/2024 PROCEDURE: MRI BRAIN WO CONTRAST, DATE/TIME OF [...] is no evidence of acute ischemicprocess. IMPRESSION: Involutional changes. Mostly subcortical small vessel ischemic disease. No intracranial bleed or evidence of acute ischemic process. Paranasal sinuses disease. > Interpreting Provider: Ladi Malik MD on 05/03/2024 3:28 PM Jose Luis Patel MD MR ORDERABLES Final Result * (ABNORMAL) PT PTT PANEL (05/03/2024 4:30 AM PSYCHIC READER) PT 15.4(H) 12.1 - 14.8 sec 05/03/2024 5:16 AM PSYCHIC READER [facility] INR 1.2(H) 0.9 - 1.1 05/03/2024 5:16 AM PSYCHIC READER [facility] PTT 24.3 23.0 - 38.4 sec 05/03/2024 5:16 AM PSYCHIC READER [facility] Blood BLOOD SPECIMEN / Unknown Venipuncture / Unknown 05/03/2024 4:30 AM PSYCHIC READER 05/03/2024 4:52 AM PSYCHIC READER Narrative [facility] - 05/03/2024 5:16 AM PSYCHIC READER Conventional Warfarin Anticoagulant Therapy: INR Reference Range: 2.0-3.0 Intensive Warfarin Anticoagulant Therapy: INR Reference Range: 2.5-3.5 Heparin Therapeutic Range for PTT: 69.0 - 110.0 seconds. Oswaldo Page MD LAB - COAGULATION ORDERABLES Fin al Result Performing Organization Address City/State/[facility] Co de Phone Number [facility] [address] [place] [address] * FL Swallowing Function Study (04/29/2024 10:53 AM PSYCHIC READER) Anatomical Region Laterality Modality Chest Radio Fluoroscop y 04/29/2024 11:3 2 AM PSYCHIC READER Impressions 04/29/2024 11:33 AM PSYCHIC READER IMPRESSION: Modified barium swallow fluoroscopy as described. Please see detailed report from speech pathology staff. > Interpreting Provider: Blake Orta MD on 04/29/2024 11:33 AM Narrative 04/29/2024 11:33 AM PSYCHIC READER MODIFIED BARIUM SWALLOW WITH SPEECH EVALUATION PROCEDURE: [...] Thin liquid: Reverting penetration but no aspiration. [place] thickness: No penetration or aspiration. Honey thickness: No penetration or aspiration. Pudding thickness: No penetration or aspiration. Solid cookie product: No penetration or aspiration. Procedure Note Blake Orta MD - 04/29/2024 MODIFIED BARIUM SWALLOW WITH SPEECH EVALUATION PROCEDURE: [...] Thin liquid: Reverting penetration but no aspiration. [place] thickness: No penetration or aspiration. Honey thickness: No penetration or aspiration. Pudding thickness: No penetration or aspiration. Solid cookie product: No penetration or aspiration. IMPRESSION: Modified barium swallow fluoroscopy as described. Please see detailed report from speech pathology staff. > Interpreting Provider: Blake Orta MD on 04/29/2024 11:33 AM You Arana MD FLUOROSCOPY ORDERABLES Final Result * XR Chest 1Vw Portable (04/28/2024 2:05 PM PSYCHIC READER) Only the most recent of3 resultswithin the time period is included. Anatomical Region Laterality Modality Chest Radiographic Estela ging 04/28/2024 2:17 PM PSYCHIC READER Impressions 04/28/2024 2:33 PM PSYCHIC READER IMPRESSION: Persistent atelectasis within the right lung base but slight improved aeration compared to the prior. > Interpreting Provider: Jane Shaw MD on 04/28/2024 2:33 PM Narrative 04/28/2024 2:33 PM PSYCHIC READER PROCEDURE: XR CHEST 1VW PORTABLE DATE/TIME OF EXAM: 04/28/2024 2:05 PM CLINICAL INFORMATION: None relevant/not provided if blank. Indication: Respiratory failure Additional History: Respiratory failure COMPARISON: 04/25/2024 FINDINGS: The lung volumes are small. There is slight improved aeration within the right lower lobe with increasing atelectasis. The left lung appears clear. A tracheostomy is seen in addition to a tunneled catheter. Procedure Note Jane Shaw MD - 04/28/2024 PROCEDURE: XR CHEST 1VW PORTABLE DATE/TIME OF EXAM: 04/28/2024 2:05 PM CLINICAL INFORMATION: None relevant/not provided if blank. Indication: Respiratory failure Additional History: Respiratory failure COMPARISON: 04/25/2024 FINDINGS: The lung volumes are small. There is slight improved aeration within the right lower lobe with increasing atelectasis. The left lung appearsclear. A tracheostomy is seen in addition to a tunneled catheter. IMPRESSION: Persistent atelectasis within the right lung base but slight improved aeration compared to the prior. > Interpreting Provider: Jane Shaw MD on 04/28/2024 2:33 PM Tiago Armstrong MD DIAGNOSTIC IMAGING [place] [facility] Final Result * (ABNORMAL) BLOOD GASES ART + COOX PANEL (04/28/2024 5:11 AM PSYCHIC READER) Only the most recent of3 resultswithin the time period is included. pH Arterial 7.58(H) 7.35 - 7.45 pH 04/28/2024 5:13 AM PSYCHIC READER [facility] pCO2 Arterial 35 35 - 45 mmHg 5:13 AM PSYCHIC READER [facility] pO2 Arterial 86 80 - 100 mmHg 04/28/2024 5:13 AM PSYCHIC READER [facility] HCO3 Arterial 32.8(H) 22.0 - 26.0 mmol/L 04/28/2024 5:13 AM PSYCHIC READER [facility] BE Arterial 10.3(H) -2.0 - 2.0 mmol/L 04/28/2024 5:13 AM PSYCHIC READER [facility] Oxyhemoglobin Arterial 96.8 % 04/28/2024 5:13 AM PSYCHIC READER [facility] Dexoyhemoglobin (HHB) % 1.0 % 04/28/2024 5:13 AM PSYCHIC READER [facility] O2 Content Arterial 15.2 Interpret within clinical context ml/dL 04/28/2024 5:13 AM PSYCHIC READER [facility] O2 Saturation Arterial 99 90 - 100 % 04/28/2024 5:13 AM PSYCHIC READER [facility] Methemoglobin <0.8 0.0 - 2.0 % 04/28/2024 5:13 AM PSYCHIC READER [facility] Carboxyhemoglobin 1.7 0.0 - 2.0 % 2024 5:13 AM PSYCHIC READER [facility] Hemoglobin by COOX 11.1(L) 12.0 - 15.6 g/dL 04/28/2024 5:13 AM PSYCHIC READER [facility] Louis's Test Positive 04/28/2024 5:13 AM PSYCHIC READER [facility] Sample Site Right RA 04/28/2024 5:13 AM PSYCHIC READER [facility] O2 Device Airvo 04/28/2024 5:13 AM PSYCHIC READER [facility] FI O2 30.0 % 04/28/2024 5:13 AM PSYCHIC READER [facility] Liter Flow (LPM) 30 04/28/19 25 5:13 AM PSYCHIC READER [facility] P/F Ratio 287 04/28/2024 5:13 AM PSYCHIC READER [facility] Blood, arterial ARTERIAL BLOOD SPECIMEN / Unknown 04/28/2024 5:11 AM PSYCHIC READER 04/28/2024 5:11 AM PSYCHIC READER us Tiago Armstrong MD LAB - BLOOD GASES ORDER MARISEL Final Result [facility] [address] [facility] [address] [phone] * CT Chest Wo Contrast (04/25/2024 3:55 PM PSYCHIC READER) Anatomical Region Laterality Modality Chest Computed Tomogra phy 04/26/2024 12:0 8 PM PSYCHIC READER Impressions 04/26/2024 12:12 PM PSYCHIC READER IMPRESSION: Medial bilateral lower lobe opacities. These demonstrate air bronchograms on the right greater than left, and could represent pneumonia or atelectasis. Correlation with the clinical picture is necessary. > Interpreting Provider: Nile Montiel MD on 04/26/2024 12:12 PM Narrative 04/26/2024 12:12 PM PSYCHIC READER PROCEDURE: CT CHEST WO CONTRAST, DATE/TIME OF EXAM: 04/25/2024 3:57 PM, LOCATION [facility] INDICATION: right effusion and atelectasis ADDITIONAL CLINICAL [...] of the spine. HARDWARE/LINES/TUBES: None. Procedure Note Nile Montiel MD - 04/26/2024 PROCEDURE: CT CHEST WO CONTRAST, DATE/TIME OF EXAM: 04/25/2024 3:57 PM, LOCATION [facility] INDICATION: right effusion and atelectasis ADDITIONAL CLINICAL [...] osteoarthritis of the spine. HARDWARE/LINES/TUBES: None. IMPRESSION: Medial bilateral lower lobe opacities. These demonstrate airbronchograms on the right greater than left, and could represent pneumonia or atelectasis. Correlation with the clinical picture is necessary. > Interpreting Provider: Nile Montiel MD on 04/26/2024 12:12 PM Tiago Armstrong MD CT ORDERABLES Final R esult * (ABNORMAL) PROTEIN URINE TIMED QUANTITATIVE (04/25/2024 10:35 AM PSYCHIC READER) Volume 24 Hour Urine 2,110 mL 04/25/2024 11:12 AM [facility] Collection Time Hours 24 hrs 04/25/2024 11:12 AM [facility] Protein 24 Hour Urine 430(H) <300 mg/24hr 04/25/2024 11:12 AM [facility] Protein Urine 20.4(H) <11.9 mg/dL 04/25/2024 11:12 AM [facility] Urine URINE SPECIMEN COLLECTION, CATHETERIZED / Unknown Collection / Unknown 04/25/2024 10:35 AM PSYCHIC READER 04/25/2024 10:53 AM PSYCHIC READER Oswaldo Page MD LAB - URINE CHEMISTRY ORDERABLES Final Result Performing Organization Address City/State/[facility] de Phone Number [facility] [address] [place] [address] * (ABNORMAL) CREATININE CLEARANCE URINE TIMED + BLOOD (04/25/2024 10:[address] [facility]) Volume 24 Hour Urine 2,110 mL 04/25/2024 11:11 AM [facility] Collection Time Hours 24 hrs 04/25/2024 11:11 AM [facility] Height Inches 70 inches 04/25/2024 11:11 AM [facility] Weight in Pounds 308 pounds 04/25/2024 11:11 AM [facility] Surface Area 2.51 04/25/2024 11:11 AM [facility] Creatinine 1.20(H) 0.57 - 1.11 mg/dL 04/25/2024 11:11 AM [facility] Creatinine Urine 29.94 mg/dL 04/25/2024 11:11 AM [facility] Creatinine 24 Hour Urine 632(L) 710 - 1,650 mg/24hr 04/25/2024 11:11 AM [facility] Creatinine Clearance 25(L) 66 - 165 mL/min/1.73 m2 04/25/2024 11:11 AM [facility] Urine URINE SPECIMEN COLLECTION, CATHETERIZED / Unknown Collection / Unknown 04/25/2024 10:35 AM PSYCHIC READER 04/25/2024 10:[address] [facility] Oswaldo Page MD LAB - URINE CHEMISTRY ORDERABLES Final Result Performing Organization Address [facility] Co de Phone Number [facility] [address] [place] [address] * (ABNORMAL) COMPREHENSIVE METABOLIC PANEL (04/25/2024 5:[address] [facility]) Only the most recent of2 resultswithin the time period is included. Glucose 184(H) 70 - 99 mg/dL 04/25/2024 5:48 AM [facility] Sodium 139 136 - 145 mmol/L 04/25/2024 5:48 AM [facility] Potassium 3.2(L) 3.5 - 5.1 mmol/L 04/25/2024 5:48 AM [facility] Chloride 102 98 - 107 mmol/L 04/25/2024 5:48 AM [facility] CO2 28 22 - 29 mmol/L 04/25/2024 5:48 AM [facility] Calcium 8.2(L) 8.4 - 10.4 mg/dL 04/25/2024 5:48 AM [facility] Anion Gap 9 6 - 16 mmol/L 04/25/2024 5:48 AM [facility] BUN 49(H) 7 - 26 mg/dL 04/25/2024 5:48 AM [facility] Creatinine 1.20(H) 0.57 - 1.11 mg/dL 04/25/2024 5:48 AM [facility] Alkaline Phosphatase 77 40 - 150 U/L 04/25/2024 5:48 AM [facility] ALT 18 0 - 55 U/L 04/25/2024 5:48 AM [facility] AST 11 5 - 34 U/L 04/25/2024 5:48 AM [facility] Protein Total 5.2(L) 6.4 - 8.3 gm/dL 04/25/2024 5:48 AM [facility] Albumin 2.1(L) 3.4 - 5.0 gm/dL 04/25/2024 5:48 AM [facility] Bilirubin Total 0.5 0.2 - 1.2 mg/dL 04/25/2024 5:48 AM [facility] eGFR by CKD-EPI 48(L) >=90 mL/min/1.7 3 m2 04/25/2024 5:48 AM [facility] Blood BLOOD SPECIMEN / Unknown Venipuncture / Unknown 04/25/2024 5:[address] [facility] 04/25/2024 5:[address] [facility] us Oswaldo Page MD LAB - CHEMISTRY ORDERABLES Final Result [facility] [address] [facility] [place] [address] * PHOSPHORUS BLOOD (04/25/2024 5:[address] [facility]) Phosphorus 3.2 2.5 - 4.5 mg/dL 04/25/2024 5:45 AM [facility] Blood BLOOD SPECIMEN / Unknown Venipuncture / Unknown 04/25/2024 5:00 AM PSYCHIC READER 04/25/2024 5:15 AM PSYCHIC READER us Oswaldo Page MD LAB - CHEMISTRY ORDERABLES Final Result [facility] [address] [facility] [place] [address] * (ABNORMAL) URINALYSIS REFLEX MICROSCOPIC REFLEX CULTURE (04/21/2024 5:[address] [facility]) Color UA Yellow Yellow, Straw 04/21/2024 5:31 AM [facility] Clarity UA Clear Clear 04/21/2024 5:31 AM [facility] Glucose UA 3+(A) Normal 04/21/2024 5:31 AM [facility] Bilirubin UA Negative Negative 04/21/2024 5:31 AM [facility] Ketone UA Negative Negative 04/21/2024 5:31 AM [facility] Specific Iona UA 1.019 1.005 - 1.030 04/21/2024 5:31 AM [facility] Blood UA 2+(A) Negative 04/21/2024 5:31 AM [facility] pH UA 5.5 5.0 - 9.0 pH 04/21/2024 5:31 AM [facility] Protein UA 1+(A) Negative 04/21/2024 5:31 AM [facility] Urobilinogen UA Normal Normal mg/dL 025 5:31 AM [facility] Nitrite UA Negative Negative 04/21/2024 5:31 AM [facility] Leukocyte UA Negative Negative 04/21/2024 5:31 AM [facility] RBC UA 11-20(A) 0 - 5 # /hpf 04/21/2024 5:31 AM [facility] WBC UA 6-10(A) 0 - 5 # /hpf 04/21/2024 5:31 AM [facility] Bacteria UA None Seen None Seen 04/21/2024 5:31 AM [facility] Squamous Epithelial Cells 0-2 0 - 5 /hpf 04/21/2024 5:31 AM [facility] Mucus UA 1+ /LPF 04/21/2024 5:31 AM [facility] Urine URINE SPECIMEN OBTAINED BY CLEAN CATCH PROCEDURE / Unknown Collection / Unknown 04/21/2024 5:15 AM PSYCHIC READER 04/21/2024 5:23 AM PSYCHIC READER You Arana MD LAB - URINALYSIS ORDERABLES Final Result Performing Organization Address City/[facility]/ZIP Co de Phone Number [facility] [address] [place] [address] * PTH INTACT W/O CALCIUM (04/21/2024 4:20 AM PSYCHIC READER) PTH Intact 58.0 8.7 - 77.1 pg/mL 04/21/2024 10:23 AM PSYCHIC READER [facility] Blood BLOOD SPECIMEN / Unknown Venipuncture / Unknown 04/21/2024 4:20 AM PSYCHIC READER 04/21/2024 4:45 AM PSYCHIC READER Oswaldo Page MD LAB - CHEMISTRY ORDERABLES Final Result Performing Organization Address [facility] de Phone Number [facility] [address] [place] [address] * (ABNORMAL) IRON + TRANSFERRIN PANEL (04/21/2024 4:20 AM PSYCHIC READER) Iron 52 40 - 150 ug/dL 04/21/2024 5:37 AM [facility] Transferrin 147(L) 174 - 382 mg/dL 04/21/2024 5:37 AM [facility] TIBC Calculated 184(L) 240 - 450 ug/dL 04/21/2024 5:37 AM [facility] Iron Saturation % 28 20 - 50 % 04/21/2024 5:37 AM [facility] Blood BLOOD SPECIMEN / Unknown Venipuncture / Unknown 04/21/2024 4:20 AM PSYCHIC READER 04/21/2024 4:45 AM PSYCHIC READER us Oswaldo Page MD LAB - CHEMISTRY ORDERABLES Final Result [facility] [address] [place] [address] * (ABNORMAL) FERRITIN (04/21/2024 4:20 AM PSYCHIC READER) Pathologist [facility] Ferritin 262(H) 5 - 204 ng/mL 04/21/2024 5:24 AM PSYCHIC READER [facility] Blood BLOOD SPECIMEN / Unknown Venipuncture / Unknown 04/21/2024 4:20 AM PSYCHIC READER 04/21/2024 4:45 AM PSYCHIC READER Oswaldo Page MD LAB - CHEMISTRY ORDERABLES Final Result Performing Organization Address [facility]/ZIP Co de Phone Number [facility] [address] [place] [address] * HEPATITIS SCREEN ACUTE (2024 4:45 AM PSYCHIC READER) [facility] HAV Antibody IgM Non Reactive Non Reactive 2024 10:44 AM PSYCHIC READER [facility] HBsAg Non Reactive Non Reactive 2024 10:44 AM PSYCHIC READER [facility] HBc Antibody IgM Non Reactive Non Reactive 2024 10:44 AM PSYCHIC READER [facility] HCV Antibody Screen Non Reactive Non Reactive 2024 10:[address] [facility] Blood BLOOD SPECIMEN / Unknown Venipuncture / Unknown 2024 4:45 AM PSYCHIC READER 2024 4:56 AM PSYCHIC READER Narrative [facility] - 2024 10:44 AM PSYCHIC READER Non Reactive - Antibodies to Hepatitis C virus (HCV) were not detected, result does not exclude early acute HCV infection. You Arana MD LAB - CHEMISTRY ORDERABLES F inal Result Performing Organization Address City/[facility]/ZIP Co de Phone Number [facility] [address] [place] [address] * TSH REFLEX FREE T4 (04/19/2024 4:25 AM PSYCHIC READER) Pathologist [facility] TSH 1.244 0.350 - 4.940 uIU/mL 04/19/2024 5:15 AM [facility] Blood BLOOD SPECIMEN / Unknown Venipuncture / Unknown 04/19/2024 4:25 AM PSYCHIC READER 04/19/2024 4:37 AM PSYCHIC READER us You Arana MD LAB - CHEMISTRY ORDERABLES F inal Result [facility] [address] [facility] [place] [address] * (ABNORMAL) DIFFERENTIAL MANUAL (04/19/2024 4:[address] [facility]) Neutrophil % 84(H) 41 - 74 % 04/19/2024 7:16 AM [facility] Lymphocyte % 9(L) 17 - 47 % 04/19/2024 7:16 AM [facility] Monocyte % 4 3 - 11 % 04/19/2024 7:16 AM [facility] Eosinophil % 1 0 - 7 % 04/19/2024 7:16 AM [facility] Metamyelocyte % 1(H) 0% % 7:16 AM [facility] Myelocyte % 1(H) 0% % 04/19/2024 7:16 AM [facility] Neutrophil Absolute 4.37 1.60 - 7.50 x10E9/L 04/19/2024 7:16 AM [facility] Lymphocyte Absolute 0.47(L) 1.00 - 4.40 x10E9/L 04/19/2024 7:16 AM [facility] Monocyte Absolute 0.21 0.15 - 1.00 x10E9/L 04/19/2024 7:16 AM [facility] Eosinophil Absolute 0.05 0.00 - 0.60 x10E9/L 04/19/2024 7:16 AM [facility] RBC Morphology REVIEWED 04/19/2024 7:16 AM [facility] Ovalocytes MODERATE(A) (none) 04/19/2024 7:16 AM [facility] Blood BLOOD SPECIMEN / Unknown Venipuncture / Unknown 04/19/2024 4:25 AM PSYCHIC READER 04/19/2024 4:37 AM PSYCHIC READER You Arana MD LAB - HEMATOLOGY ORDERABLES Final Result [facility] [address] [place] [address] * (ABNORMAL) CBC W AUTO DIFFERENTIAL (04/19/2024 4:25 AM PSYCHIC READER) WBC 5.2 4.0 - 10.7 x10E9/L 04/19/2024 7:17 AM [facility] RBC Count 3.24(L) 3.90 - 5.20 x10E12/L 04/19/2024 7:17 AM [facility] Hemoglobin 9.8(L) 11.9 - 15.8 g/dL 04/19/2024 7:17 AM [facility] Hematocrit 30.8(L) 34.8 - 46.1 % 04/19/2024 7:17 AM [facility] MCV 95.1 80.0 - 98.0 fL 04/19/2024 7:17 AM [facility] MCH 30.2 26.7 - 33.6 pg 04/19/2024 7:17 AM [facility] MCHC 31.8 31.7 - 36.3 g/dL 04/19/2024 7:17 AM [facility] RDW-CV 16.9(H) 11.3 - 14.8 % 04/19/2024 7:17 AM [facility] Platelet Count 162 150 - 420 x10E9/L 04/19/2024 7:17 AM [facility] MPV 9.2 7.8 - 11.4 fL 04/19/2024 7:17 AM [facility] Blood BLOOD SPECIMEN / Unknown Venipuncture / Unknown 04/19/2024 4:25 AM PSYCHIC READER 04/19/2024 4:37 AM PSYCHIC READER us You Arana MD LAB - HEMATOLOGY ORDERABLES Final Result [facility] [address] [place] [address] * PREALBUMIN (04/19/2024 4:25 AM PSYCHIC READER) Prealbumin 18.0 14.0 - 37.0 mg/dL 04/19/2024 4:56 AM PSYCHIC READER [facility] Blood BLOOD SPECIMEN / Unknown Venipuncture / Unknown 04/19/2024 4:25 AM PSYCHIC READER 04/19/2024 4:37 AM PSYCHIC READER us You Arana MD LAB - CHEMISTRY ORDERABLES F inal Result [facility] [address] [place] [address] from Last 3 Months [place] [address] MEDICARE [facility] Care Teams Lens Blocker Relationship Specialty Start Date End Date Walt Kirk MD [address] [place] [address] [address] [place] [address] PCP - General 07/16/18
--- OUTSIDE RECORDS SUMMARY | 2024-06-16 09:30 | XMS_ITS | Referral Summary ---
Author Organization [facility] Address [address] [place] [address] Care Team Providers Care Process Control Board Operator Name Role Phone Walt Kirk MD Primary Care Provider Venu Leon MD Unavailable [phone] Encounters Date Type Department Care Team Description 04/12/2024 Orders Only [facility] Medical Group Cardiology [address] [place] [phone] Lena Mckeon NP 04/06/2024 Orders Only [facility] Medical Group Cardiology [address] [place] [phone] Gem Swartz MD 04/01/2024 Orders Only [facility] Medical [facility] Cardiology [address] [place] [phone] Hollie Brown MD from Last 3 Months Allergies Active Allergy Reactions Criticality Noted Date [...] 10/29/2020 Type 2 diabetes mellitus without complication Coronavirus infection 04/29/2019 Hyperlipidemia 03/08/2019 Prediabetes 03/08/2019 Primary malignant neoplasm of endometrium 2018 Atrial fibrillation 08/16/2018 Endometrial cancer 07/30/2018 Cancer Staging:Pathologic stage from 08/16/2018:Stage IIIC1(pT1b, pN1mi(sn), cM0) - Signed by Tyler Haney MD PhD on 09/20/2018 Overview (07/30/2018): Added automatically from request for surgery [id number] Essential hypertension 07/30/2018 Morbid obesity 07/30/2018 Diabetes mellitus 07/19/2018 History of adenomatous polyp of colon 07/19/2018 History of colonic polyps 07/19/2018 Edema 07/14/2016 Hyperkalemia 06/10/2007 Chest pain, unspecified 03/02/1959 Immunizations Immunization Administration Dates Next Due Influenza, Quadrivalent, Hig [...] on file Legal Sex Female 9:07 PM REPAIRER TYPEWRITER Gender Identity Not on file Sexual Orientation Not on file Last Filed Vital Signs Vital Sign Reading Time Taken Comments Blood Pressure 140/88 05/22/2023 12:00 PM CDT Pulse 107 05/22/2023 12:00 PM CDT Temperature 36.5 C (97.7 F) 05/22/2023 12:00 PM CDT Respiratory Rate 16 05/22/2023 12:00 PM CDT Oxygen Saturation 95% 05/22/2023 12:00 PM CDT Inhaled Oxygen Concentration - - Weight 146.5 kg (323 lb) 05/22/2023 12:00 PM CDT Height 176.5 cm (5' 9.49 ) 05/22/2023 12:00 PM C DT Body Mass Index 47.03 05/22/2023 12:00 PM CDT Plan of Treatment Not on file Procedures Procedure Name Priority Date/Time Associated Diagnosis Comments CARDIOLOGY DOCUMENT SCAN Routine 025 12:13 PM REPAIRER TYPEWRITER CARDIOLOGY DOCUMENT SCAN Routine 03/31/2024 2:41 PM REPAIRER TYPEWRITER CARDIOLOGY DOCUMENT SCAN Routine 03/30/2024 2:17 PM REPAIRER TYPEWRITER CARDIOLOGY DOCUMENT SCAN Routine 03/29/2024 2:14 PM REPAIRER TYPEWRITER CARDIOLOGY DOCUMENT SCAN Routine 03/28/2024 7:51 AM REPAIRER TYPEWRITER CARDIOLOGY DOCUMENT SCAN Routine 025 2:10 PM REPAIRER TYPEWRITER from Last 3 Months Results * Cardiology Document Scan (04/01/2024 12:13 PM REPAIRER TYPEWRITER) Anatomical Region Laterality Modality Other Gem Swartz MD CV CARDIAC SERVICES PRO CEDURES Final Result * Cardiology Document Scan (03/31/2024 2:41 PM REPAIRER TYPEWRITER) Anatomical Region Laterality Modality Other us Levar Enciso MD CV CARDIAC SERVICES PROCEDURES F inal Result * Cardiology Document Scan (03/30/2024 2:17 PM REPAIRER TYPEWRITER) Anatomical Region Laterality Modality Other Gem Swartz MD CV CARDIAC SERVICES PRO CEDURES Final Result * Cardiology Document Scan (03/29/2024 2:14 PM REPAIRER TYPEWRITER) Anatomical Region Laterality Modality Other Gem Swartz MD CV CARDIAC SERVICES PRO CEDURES Final Result * Cardiology Document Scan (03/28/2024 7:51 AM REPAIRER TYPEWRITER) Anatomical Region Laterality Modality Other us Lena Mckeon NP CV CARDIAC SERVICES PROCEDUR ES Final Result * Cardiology Document Scan (03/27/2024 2:10 PM REPAIRER TYPEWRITER) Anatomical Region Laterality Modality Other Hollie Brown MD [facility] CARDIAC SERVICES PROCEDU RES Final Result from Last 3 Months Insurance MEDICARE [facility] MEDICARE [facility] MEDICARE [facility] Advance Directives For more information, please contact: [phone] * Full Code (Latest Code Status on File) Date Activated Date Inactivated Comments 08/16/2018 1:35 PM 08/17/2018 7:26 PM Care Teams Process Control Board Operator Relationship Specialty Start Date End Date Walt Kirk MD [address] [facility] [address] [place] [address] PCP - General Internal Medicine 07/20/18 Venu Leon MD [address] [place] [address] Referring Physician Obstetrics and Gynecology 07/20/18
--- OUTSIDE RECORDS SUMMARY | 2024-06-16 09:30 | XMS_ITS | Clinical Summary ---
Author Organization [facility] Address [address] [place] [address] Care Team Providers Care Clinical Documentation Manager Name Role Phone Walt Kirk MD Primary Care Provider Venu Leon MD Unavailable [phone] Allergies Active Allergy Reactions Criticality Noted Date [...] (07/30/2018): Added automatically from request for surgery [id number] Essential hypertension 07/30/2018 Morbid obesity 07/30/2018 Diabetes mellitus 07/19/2018 History of adenomatous polyp of colon 07/19/2018 History of colonic polyps 07/19/2018 Edema 07/14/2016 Hyperkalemia 06/10/2007 Chest pain, unspecified 03/02/1961 Encounters Date Type Department Care Team Description 04/12/2024 Orders Only [facility] Medical Group Cardiology [address] [place] [address] Lena Mckeon NP 04/06/2024 Orders Only [facility] Medical Group Cardiology [address] [place] [address] Gem Swartz MD 04/01/2024 Orders Only [facility] Medical Group Cardiology [address] [place] [address] Hollie Brown MD from Last 3 Months Immunizations Immunization Administration Dates Next Due Influenza, [...] Medical History Date Comments Hypertension Endometrial cancer (HCC) Morbidly obese (HCC) Obstructive sleep apnea [...] on file Legal Sex Female 9:07 PM POLICE INSPECTOR Gender Identity Not on file Sexual Orientation [...] 05/06/2020, 04/14/2020, Additional history exists Influenza Vaccine (Season Ended) 2024 01/30/2020, 12/01/2019, 12/31/2018, Additional history exists Pneumococcal vaccine 65+ Completed 08/28/2021, 01/02 Procedures Procedure Name Priority Date/Time Associated Diagnosis Comments CARDIOLOGY DOCUMENT SCAN Routine 025 12:13 PM POLICE INSPECTOR CARDIOLOGY DOCUMENT SCAN Routine 03/31/2024 2:41 PM POLICE INSPECTOR CARDIOLOGY DOCUMENT SCAN Routine 03/30/2024 2:17 PM POLICE INSPECTOR CARDIOLOGY DOCUMENT SCAN Routine 03/29/2024 2:14 PM POLICE INSPECTOR CARDIOLOGY DOCUMENT SCAN Routine 03/28/2024 7:51 AM POLICE INSPECTOR CARDIOLOGY DOCUMENT SCAN Routine 03/27/2024 2:10 PM POLICE INSPECTOR from Last 3 Months Results * Cardiology Document Scan (04/01/2024 12:13 PM POLICE INSPECTOR) Anatomical Region Laterality Modality Other Gem Swartz MD CV CARDIAC SERVICES PRO CEDURES Final Result * Cardiology Document Scan (03/31/2024 2:41 PM POLICE INSPECTOR) Anatomical Region Laterality Modality Other Levar Enciso MD CV CARDIAC SERVICES PROCEDURES F inal Result * Cardiology Document Scan (03/30/2024 2:17 PM POLICE INSPECTOR) Anatomical Region Laterality Modality Other Gem Swartz MD CV CARDIAC SERVICES PRO CEDURES Final Result * Cardiology Document Scan (03/29/2024 2:14 PM POLICE INSPECTOR) Anatomical Region Laterality Modality Other Gem Swartz MD CV CARDIAC SERVICES PRO CEDURES Final Result * Cardiology Document Scan (03/28/2024 7:51 AM POLICE INSPECTOR) Anatomical Region Laterality Modality Other us Lena Mckeon NP CV CARDIAC SERVICES PROCEDUR ES Final Result * Cardiology Document Scan (03/27/2024 2:10 PM POLICE INSPECTOR) Anatomical Region Laterality Modality Other Hollie Brown MD CV CARDIAC SERVICES PROCEDU RES Final Result from Last 3 Months Insurance MEDICARE [facility] MEDICARE [facility] MEDICARE [employer] Advance Directives For more information, please contact: [phone] * Full Code (Latest Code Status on File) Date Activated Date Inactivated Comments 08/16/2018 1:35 PM 08/17/2018 7:26 PM Care Teams Clinical Documentation Manager Relationship Specialty Start Date End Date Walt Kirk MD [address] [facility] [address] [place] [address] PCP - General Internal Medicine 07/20/18 Venu Leon MD [address] [place] [address] Referring Physician Obstetrics and Gynecology 07/20/18
--- OUTSIDE RECORDS SUMMARY | 2024-06-16 09:30 | XMS_ITS ---
Author Organization [facility] Address [address] [place] [address] Care Team Providers Care Newspaper Vendor Name Role Phone Walt Kirk MD Primary Care Provider Venu Leon MD Unavailable [phone] Active Problems Problem Noted Date Diagnosed Date [...] (07/30/2018): Added automatically from request for surgery [id number] Essential hypertension 07/30/2018 Morbid obesity 07/30/2018 Diabetes mellitus 07/19/2018 History of adenomatous polyp of colon 07/19/2018 History of colonic polyps 07/19/2018 Edema 07/14/2016 Hyperkalemia 06/10/2007 Chest pain, unspecified 03/02/1959 Current Treatment and Therapy Plans No current plan information found. Past Treatment and Therapy Plans No past plan information found. Radiation Treatments * Course [id number] 10/22/2018 - 12/15/2018 Treatment Period Energy Fraction Dose Fractions Total Dose Plans Planned PELVIS # 10/22/2018 - 12/15/2018 160 32 / 5,120 Reference Points Delivered Pelvis 10/22/2018 - 12/15/2018 5,120
[2024-06-16] MEDS: ACETAMINOPHEN 325 MG TABLET 650 MG PO (09:37)
[2024-06-16 12:33] LABS: Add Urine Microscopic? YES; Appearance Urine Clear (Clear); Bacteria Urine None Seen /hpf; Bilirubin Urine Negative (Negative); Blood Urine 2+ (Negative); Color Urine Yellow (Yellow); Glucose Urine UA Negative (Negative); Ketones Urine Trace mg/dL (Negative); Leukocyte Esterase Ur 1+ LEU/UL (Negative); Need Manual Microscopic Reviewed; Nitrate Urine Negative (Negative); Non Pathogenic Casts 0-2; Protein Urine Negative (Negative); Specific Grav Ur 1.019 (1.001-1.035); Squamous Epithelial Cell Urine None Seen /hpf (Few); Urobilinogen Urine 0.2 mg/dL (<2.0)
[2024-06-16 12:42] VITALS: BP 138/84; PULSE 89; RESP 20; O2SAT 100
[2024-06-16 12:46] LABS: Basophils Percent Auto 0.2 % (0.2-1.2); Eosinophils Percent Auto 0.1 % (0-4.4); Hemoglobin 10.5 g/dL (12.0-15.0); Immature Granulocyte Percent A 1.2 % (0-0.5); Lymphocytes Absolute Auto 0.58 K/mm3 (0.9-3.2); Mean Corpuscular HGB Conc 30.9 g/dl (32-36); Mean Corpuscular Hemoglobin 31.5 pg (26-34); Mean Corpuscular Volume 102.1 fl (80-100); Mean Platelet Volume 9.3 fl (7.4-10.4); Monocytes Absolute Auto 0.5 K/mm3 (0.1-0.6); Monocytes Percent Auto 5.5 % (2.6-8.5); Neutrophils Absolute Auto 7.2 K/mm3 (1.3-6.7); Platelet Count Result 281 k/mm3 (150-375); Red Blood Count 3.33 M/mm3 (4.2-5.4); Red Cell Distribution Width 16.4 % (11.5-14.5); White Blood Count 8.3 K/mm3 (4.5-10.0)
[2024-06-16 13:01] LABS: Alanine Aminotransferase 23 U/L (6-35); Albumin Level 3.3 g/dL (3.5-5.1); Alkaline Phosphatase 72 U/L (38-126); Anion Gap 10 mmol/L (4-12); Aspartate Amino Transferase 16 U/L (14-36); Bilirubin,Total 0.6 mg/dL (0.2-1.3); Blood Urea Nitrogen 33 mg/dL (7-17); Calcium 8.7 mg/dL (8.4-10.2); Carbon Dioxide 21 mmol/L (22-30); Chloride 108 mmol/L (98-107); Estimated CRCL calculation 79 ml/min; Estimated Glomerular Filt Rate > 60; Glucose 129 mg/dL (65-110); Potassium 4.7 mmol/L (3.4-5.0); Sodium 139 mmol/L (137-145)
[2024-06-16] MEDS: CEPHALEXIN 500 MG CAPSULE PO (13:35)
[2024-06-16 15:41] VITALS: BP 134/81; PULSE 78; RESP 17; O2SAT 98
== END 2024-06-16 16:55 ==
PROVIDERS: Emergency Provider Physician Assistant; PCP Internal Medicine
DX: R33.9 Retention of urine, unspecified (principal); K59.00 Constipation, unspecified; S09.90XA Unspecified injury of head, initial encounter; W06.XXXA Fall from bed, initial encounter; I48.91 Unspecified atrial fibrillation; Z79.01 Long term (current) use of anticoagulants; E11.9 Type 2 diabetes mellitus without complications; I50.9 Heart failure, unspecified; R15.9 Full incontinence of feces; Z85.42 Personal history of malignant neoplasm of other parts of uterus; I11.0 Hypertensive heart disease with heart failure; Z90.710 Acquired absence of both cervix and uterus
CPT/HCPCS: 36415; 70450; 72125; 72131; 73502; 74176; 80053; 81001; 85025; 87086; 99284; A9270; L0140

== ENCOUNTER 2024-07-20 09:11 | Emergency (ER) | payer MEDICARE, OTHER, SELFPAY ==
[2024-07-20 09:06] VITALS: PULSE 104; RESP 22; TEMP 32.7; O2SAT 94
--- NOTE | 2024-07-20 09:36 | ECG_ITS ---
Test Date: 2024-07-20 09:56:48 Measurements Intervals [place] Rate: 57 P: 0 CA: 0 QRS: -83 QRSD: 126 T: 12 QT: 428 QTc: 420 Interpretive Statements ATRIAL FIBRILLATION WITH SLOW VENTRICULAR RESPONSE RIGHT BUNDLE BRANCH BLOCK [120+ ms QRS DURATION, UPRIGHT V1, 40+ ms S IN I/aVL/V4/V5/V6] ACUTE ANTEROSEPTAL ST SEGMENT ELEVATION MYOCARDIAL INJURY PATTERN ABNORMAL ECG Electronically Signed On 07-20-2024 13:15:01 CDT by Carlin Koch M.D.
[2024-07-20 09:48] LABS: Glucose Point of Care 132 mg/dl (65-105)
[2024-07-20 09:50] VITALS: BP 103/91; PULSE 89; TEMP 32.7; O2SAT 96
[2024-07-20 10:00] VITALS: TEMP 37
--- OUTSIDE RECORDS SUMMARY | 2024-07-20 10:09 | XMS_ITS | Referral Summary ---
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 Gender Identity Not on file Sexual Orientation [...] of Treatment Not on file Insurance MEDICARE [facility] MEDICARE [facility] MEDICARE [facility] Advance Directives For more information, please contact: [phone] * Full Code (Latest Code Status on File) Date Activated Date Inactivated Comments 08/16/2018 1:35 PM 08/17/2018 7:26 PM Care Teams Greenhouse Instructor Relationship Specialty Start Date End Date Walt Kirk MD [address] [facility] [address] [place] [address] PCP - General Internal Medicine 07/20/18 Venu Leon MD [address] [place] [address] Referring Physician Obstetrics and Gynecology 07/20/18
--- OUTSIDE RECORDS SUMMARY | 2024-07-20 10:09 | XMS_ITS | Clinical Summary ---
Author Organization [facility] Address [address] [place] [address] Care Team Providers Care Chronometer Assembler And Adjuster Name Role Phone Walt Kirk MD Primary Care Provider [phone] Source Comments [facility],non-owned Affiliates and Associated Physician Practices is amultiple site organization consisting of ambulatory clinics and hospital sitesin [place], [place], [place] and [place]. This disclosure is being madepursuant to the Care Everywhere program and may not contain all information available regarding this patient. Last updated 17.[facility] Allergies No known active allergies Encounters Date Type Department Care Team Description 04/18/2024 9:20 PM OPTOMETRY DOCTOR - 05/16/2024 2:33 PM CDT Hospital Encounter [address] [address] You Arana MD Instructor Of Spanish Care Discharge Disposition: Rehab:Inpatient from Last 3 [...] PANEL (CALCIUM TOTAL) Routine 05/07/2024 4:35 AM OPTOMETRY DOCTOR RENAL FUNCTION PANEL Routine 05/07/2024 4:30 AM OPTOMETRY DOCTOR RENAL FUNCTION PANEL Routine 05/04/2024 4:16 AM OPTOMETRY DOCTOR IR CENTRAL LINE REMOVAL Routine 05/03/2024 3:42 PM OPTOMETRY DOCTOR ESRD (end stage renal disease) MRI BRAIN WO CONTRAST Routine 05/03/2024 3:02 PM OPTOMETRY DOCTOR RENAL FUNCTION PANEL Routine 05/03/2024 4:30 AM OPTOMETRY DOCTOR PT PTT PANEL Routine 05/03/2024 4:30 AM OPTOMETRY DOCTOR CBC W/O DIFFERENTIAL Routine 05/03/2024 4:30 AM OPTOMETRY DOCTOR FL SWALLOWING FUNCTION STUDY Routine 04/29/2024 10:53 AM OPTOMETRY DOCTOR XR CHEST 1VW PORTABLE Routine 04/28/2024 2:05 PM OPTOMETRY DOCTOR BLOOD GASES ART + COOX PANEL Routine 04/28/2024 5:11 AM OPTOMETRY DOCTOR RENAL FUNCTION PANEL Routine 04/28/2024 2:[address] CHEST WO CONTRAST Routine 04/25/2024 3:55 PM OPTOMETRY DOCTOR PROTEIN URINE TIMED QUANTITATIVE Routine 04/25/2024 10:35 AM OPTOMETRY DOCTOR CREATININE CLEARANCE URINE TIMED + BLOOD Routine 04/25/2024 10:35 AM OPTOMETRY DOCTOR SODIUM URINE RANDOM Routine 04/25/2024 1 0:35 AM OPTOMETRY DOCTOR PROTEIN CREATININE RATIO URINE RANDOM PNL Routine 04/25/2024 10:35 AM OPTOMETRY DOCTOR CHLORIDE URINE RANDOM Routine 04/25/2024 10:35 AM OPTOMETRY DOCTOR BLOOD GASES ART + COOX PANEL Routine 04/25/2024 5:22 AM OPTOMETRY DOCTOR PHOSPHORUS BLOOD Routine 04/25/2024 5:00 AM OPTOMETRY DOCTOR COMPREHENSIVE METABOLIC PANEL Routine 04/25/2024 5:00 AM OPTOMETRY DOCTOR CBC W/O DIFFERENTIAL Routine 04/25/2024 5:00 AM OPTOMETRY DOCTOR XR CHEST 1VW PORTABLE Routine 04/25/2024 3:34 AM OPTOMETRY DOCTOR CBC W/O DIFFERENTIAL Routine 04/22/2024 4:15 AM OPTOMETRY DOCTOR RENAL FUNCTION PANEL Routine 04/22/2024 4:15 AM OPTOMETRY DOCTOR HEPATITIS SCREEN ACUTE Routine 4:45 AM OPTOMETRY DOCTOR from Last 3 Months or Most Recently Relevant to Health Maintenance Results * (ABNORMAL) CBC W/O DIFFERENTIAL (05/16/2024 4:50 AM CDT) Only the most recent of6 resultswithin the time period is included. WBC 9.4 4.0 - 10.7 x10E9/L 05/16/2024 5:25 AM CDT [facility] RBC Count 3.72(L) 3.90 - 5.20 x10E12/L 05/16/2024 5:25 AM [facility] Hemoglobin 11.7(L) 11.9 - 15.8 g/dL 05/16/2024 5:25 AM [facility] Hematocrit 36.4 34.8 - 46.1 % 05/16/2024 5:25 AM [facility] MCV 97.8 80.0 - 98.0 fL 05/16/2024 5:25 AM T [facility] MCH 31.5 26.7 - 33.6 pg 05/16/2024 5:25 AM [facility] MCHC 32.1 31.7 - 36.3 g/dL 05/16/2024 5:25 AM [facility] RDW-CV 17.0(H) 11.3 - 14.8 % 05/16/2024 5:25 AM [facility] Platelet Count 236 150 - 420 x10E9/L 05/16/2024 5:25 AM [facility] MPV 9.0 7.8 - 11.4 fL 05/16/2024 5:25 AM [facility] Blood BLOOD SPECIMEN / Unknown Venipuncture / Unknown 05/16/2024 4:50 AM CDT 05/16/2024 5:14 AM CDT us Oswaldo Page MD LAB - HEMATOLOGY ORDERABLES Kelly l Result [facility] [address] [place] [address] * (ABNORMAL) RENAL FUNCTION PANEL (05/16/2024 4:50 AM CDT) Only the most recent of11 resultswithin the time period is included. Glucose 123(H) 70 - 99 mg/dL 05/16/2024 5:38 AM [facility] Sodium 145 136 - 145 mmol/L 05/16/2024 5:38 AM [facility] Potassium 3.9 3.5 - 5.1 mmol/L 05/16/2024 5:38 AM [facility] Chloride 106 98 - 107 mmol/L 05/16/2024 5:38 AM [facility] CO2 29 22 - 29 mmol/L 05/16/2024 5:38 AM [facility] Calcium 8.7 8.4 - 10.4 mg/dL 05/16/2024 5:38 AM [facility] Anion Gap 10 6 - 16 mmol/L 05/16/2024 5:38 AM [facility] BUN 36(H) 7 - 26 mg/dL 05/16/2024 5:38 AM [facility] Creatinine 1.10 0.57 - 1.11 mg/dL 05/16/2024 5:38 AM [facility] Albumin 2.4(L) 3.4 - 5.0 gm/dL 05/16/2024 5:38 AM [facility] Phosphorus 3.4 2.5 - 4.5 mg/dL 05/16/2024 5:38 AM [facility] eGFR by CKD-EPI 54(L) >=90 mL/min/1.7 3 m2 05/16/2024 5:38 AM [facility] Blood BLOOD SPECIMEN / Unknown Venipuncture / Unknown 05/16/2024 4:50 AM CDT 05/16/2024 5:14 AM T Oswaldo Page MD LAB - CHEMISTRY ORDERABLES Final Result [facility] [address] [place] [address] * SODIUM URINE RANDOM (05/12/2024 11:38 AM CDT) Only the most recent of2 resultswithin the time period is included. Sodium Urine 44 mmol/L 05/12/2024 12:14 PM [facility] Urine URINE SPECIMEN COLLECTION, CATHETERIZED / Unknown 05/12/2024 11:38 AM CDT 05/12/2024 11:51 AM CDT Oswaldo Page MD LAB - URINE CHEMISTRY ORDERABLES Final Result Performing Organization Address [facility] Co de Phone Number [facility] [address] [place] [address] * (ABNORMAL) PROTEIN CREATININE RATIO URINE RANDOM PNL (05/12/2024 11:38 AM CDT) Only the most recent of2 resultswithin the time period is included. Protein Urine 129.4(H) <11.9 mg/dL 05/12/2024 12:14 PM CDT [facility] Creatinine Urine 52.73 mg/dL 05/12/2024 12:14 PM CDT [facility] Protein/Creatin ine Ratio Urine 2.45 05/12/2024 12:14 PM CDT [facility] Urine URINE SPECIMEN COLLECTION, CATHETERIZED / Unknown 05/12/2024 11:38 AM CDT 05/12/2024 11:51 AM CDT Oswaldo Page MD LAB - URINE CHEMISTRY ORDERABLES Final Result Performing Organization Address [facility] de Phone Number [facility] [address] [place] [id number] * CHLORIDE URINE RANDOM (05/12/2024 11:38 AM CDT) Only the most recent of2 resultswithin the time period is included. Chloride Urine 51.0 mmol/L 05/12/2024 12:14 PM CDT [facility] Urine URINE SPECIMEN COLLECTION, CATHETERIZED / Unknown 05/12/2024 11:38 AM CDT 05/12/2024 11:51 AM CDT Oswaldo Page MD LAB - URINE CHEMISTRY ORDERABLES Final Result Performing Organization Address [facility] Co de Phone Number [facility] [address] [place] [address] * EEG (05/09/2024 12:00 PM CDT) 05/09/2024 12:0 0 PM CDT Narrative Procedure Note Jose Luis Patel MD - 05/09/2024 6:45 PM CDT [facility] Electroencephalogram Report PATIENT NAME: YULIA FRANCISCO MR#: [id number] ROOM#: [id number] CSN: [id number] ADMISSION DATE: 04/18/2024 SEX: F : 1955 [...] issuggested. DICTATOR: JOSE LUIS PATEL M.D. MP/MODL #:[id number] cc: You Arana MD us You Arana MD NEUROLOGY ORDERABLES Final R esult [facility] * (ABNORMAL) BASIC METABOLIC PANEL (CALCIUM TOTAL) (05/07/2024 4:35 AM OPTOMETRY DOCTOR) Glucose 108(H) 70 - 99 mg/dL 05/08/2024 5:05 AM T [facility] Sodium 142 136 - 145 mmol/L 05/08/2024 5:05 AM [facility] Potassium 4.1 3.5 - 5.1 mmol/L 05/08/2024 5:05 AM [facility] Chloride 100 98 - 107 mmol/L 05/08/2024 5:05 AM [facility] CO2 33(H) 22 - 29 mmol/L 05/08/2024 5:05 AM [facility] Calcium 8.2(L) 8.4 - 10.4 mg/dL 05/08/2024 5:05 AM [facility] Anion Gap 9 6 - 16 mmol/L 05/08/2024 5:05 AM [facility] BUN 47(H) 7 - 26 mg/dL 05/08/2024 5:05 AM [facility] Creatinine 1.08 0.57 - 1.11 mg/dL 05/08/2024 5:05 AM [facility] eGFR by CKD-EPI 55(L) >=90 mL/min/1.7 3 m2 05/08/2024 5:05 AM [facility] Blood BLOOD SPECIMEN / Unknown Venipuncture / Unknown 05/07/2024 4:35 AM OPTOMETRY DOCTOR 05/08/2024 4:46 AM CDT us Provider Unknown LAB - CHEMISTRY ORDERABLES Kelly l Result [facility] [address] [place] [address] * IR Central Line Removal (05/03/2024 3:42 PM OPTOMETRY DOCTOR) Anatomical Region Laterality Modality X-Ray Angiograph y 05/03/2024 4:04 PM OPTOMETRY DOCTOR Impressions 05/03/2024 4:05 PM OPTOMETRY DOCTOR IMPRESSION: Successful removal of tunneled left IJ hemodialysis catheter under fluoroscopic guidance. > Interpreting Provider: Casandra Parker MD on 05/03/2024 4:05 PM Narrative 05/03/2024 4:05 PM OPTOMETRY DOCTOR PROCEDURE: TUNNELED LEFT IJ HEMODIALYSIS CATHETER REMOVAL [...] draped in the usual sterile manner. A lever tender radiograph of the chest was obtained, which [...] draped in the usual sterile manner. A lever tender radiograph of the chest was obtained, which [...] MRI Brain Wo Contrast (05/03/2024 3:02 PM OPTOMETRY DOCTOR) Anatomical Region Laterality Modality Head Magnetic Resonan ce 05/03/2024 3:23 PM OPTOMETRY DOCTOR Impressions 05/03/2024 3:28 PM OPTOMETRY DOCTOR IMPRESSION: Involutional changes. Mostly subcortical small vessel ischemic disease. No intracranial bleed or evidence of acute ischemic process. Paranasal sinuses disease. > Interpreting Provider: Ladi Malik MD on 05/03/2024 3:28 PM Narrative 05/03/2024 3:28 PM OPTOMETRY DOCTOR PROCEDURE: MRI BRAIN WO CONTRAST, DATE/TIME OF [...] Paranasal sinuses disease. > Interpreting Provider: Ladi Mlaik MD on 05/03/2024 3:28 PM Jose Luis Patel MD MR ORDERABLES Final Result * (ABNORMAL) PT PTT PANEL (05/03/2024 4:30 AM OPTOMETRY DOCTOR) PT 15.4(H) 12.1 - 14.8 sec 05/03/2024 5:16 AM OPTOMETRY DOCTOR [facility] INR 1.2(H) 0.9 - 1.1 05/03/2024 5:16 AM OPTOMETRY DOCTOR [facility] PTT 24.3 23.0 - 38.4 sec 05/03/2024 5:16 AM OPTOMETRY DOCTOR [facility] Blood BLOOD SPECIMEN / Unknown Venipuncture / Unknown 05/03/2024 4:30 AM OPTOMETRY DOCTOR 05/03/2024 4:52 AM OPTOMETRY DOCTOR Narrative [facility] - 05/03/2024 5:16 AM OPTOMETRY DOCTOR Conventional Warfarin Anticoagulant Therapy: INR Reference Range: 2.0-3.0 Intensive Warfarin Anticoagulant Therapy: INR Reference Range: 2.5-3.5 Heparin Therapeutic Range for PTT: 69.0 - 110.0 seconds. Oswaldo Page MD LAB - COAGULATION ORDERABLES [facility] al Result [facility] [address] [place] [address] * FL Swallowing Function Study (04/29/2024 10:53 AM OPTOMETRY DOCTOR) Anatomical Region Laterality Modality Chest Radio Fluoroscop y 04/29/2024 11:3 2 AM OPTOMETRY DOCTOR Impressions 04/29/2024 11:33 AM OPTOMETRY DOCTOR IMPRESSION: Modified barium swallow fluoroscopy as described. Please see detailed report from speech pathology staff. > Interpreting Provider: Blake Orta MD on 04/29/2024 11:33 AM Narrative 04/29/2024 11:33 AM OPTOMETRY DOCTOR MODIFIED BARIUM SWALLOW WITH SPEECH EVALUATION PROCEDURE: [...] Thin liquid: Reverting penetration but no aspiration. Tea thickness: No penetration or aspiration. Honey thickness: [...] Thin liquid: Reverting penetration but no aspiration. Tea thickness: No penetration or aspiration. Honey thickness: No penetration or aspiration. Pudding thickness: No penetration or aspiration. Solid cookie product: No penetration or aspiration. IMPRESSION: Modified barium swallow fluoroscopy as described. Please see detailed report from speech pathology staff. > Interpreting Provider: Blake Orta MD on 04/29/2024 11:33 AM us You Arana MD FLUOROSCOPY ORDERABLES Final Result * XR Chest 1Vw Portable (04/28/2024 2:05 PM OPTOMETRY DOCTOR) Only the most recent of2 resultswithin the time period is included. Anatomical Region Laterality Modality Chest Radiographic Estela ging 04/28/2024 2:17 PM OPTOMETRY DOCTOR Impressions 04/28/2024 2:33 PM OPTOMETRY DOCTOR IMPRESSION: Persistent atelectasis within the right lung base but slight improved aeration compared to the prior. > Interpreting Provider: Jane Shaw MD on 04/28/2024 2:33 PM Narrative 04/28/2024 2:33 PM OPTOMETRY DOCTOR PROCEDURE: XR CHEST 1VW PORTABLE DATE/TIME OF [...] 2:33 PM Tiago Armstrong MD DIAGNOSTIC IMAGING KYLE HOUGH Final Result * (ABNORMAL) BLOOD GASES ART + COOX PANEL (04/28/2024 5:11 AM OPTOMETRY DOCTOR) Only the most recent of2 resultswithin the time period is included. pH Arterial 7.58(H) 7.35 - 7.45 pH 04/28/2024 5:13 AM OPTOMETRY DOCTOR [facility] pCO2 Arterial 35 35 - 45 mmHg 5:13 AM OPTOMETRY DOCTOR [facility] pO2 Arterial 86 80 - 100 mmHg 04/28/2024 5:13 AM OPTOMETRY DOCTOR [facility] HCO3 Arterial 32.8(H) 22.0 - 26.0 mmol/L 04/28/2024 5:13 AM OPTOMETRY DOCTOR [facility] BE Arterial 10.3(H) -2.0 - 2.0 mmol/L 04/28/2024 5:13 AM OPTOMETRY DOCTOR [facility] Oxyhemoglobin Arterial 96.8 % 04/28/2024 5:13 AM OPTOMETRY DOCTOR [facility] Dexoyhemoglobin (HHB) % 1.0 % 04/28/2024 5:13 AM OPTOMETRY DOCTOR [facility] O2 Content Arterial 15.2 Interpret within clinical context ml/dL 04/28/2024 5:13 AM OPTOMETRY DOCTOR [facility] O2 Saturation Arterial 99 90 - 100 % 04/28/2024 5:13 AM OPTOMETRY DOCTOR [facility] Methemoglobin <0.8 0.0 - 2.0 % 04/28/2024 5:13 AM OPTOMETRY DOCTOR [facility] Carboxyhemoglobin 1.7 0.0 - 2.0 % 2024 5:13 AM OPTOMETRY DOCTOR [facility] Hemoglobin by COOX 11.1(L) 12.0 - 15.6 g/dL 04/28/2024 5:13 AM OPTOMETRY DOCTOR [facility] Louis's Test Positive 04/28/2024 5:13 AM OPTOMETRY DOCTOR [facility] Sample Site Right RA 04/28/2024 5:13 AM OPTOMETRY DOCTOR [facility] O2 Device Airvo 04/28/2024 5:13 AM OPTOMETRY DOCTOR [facility] FI O2 30.0 % 04/28/2024 5:13 AM OPTOMETRY DOCTOR [facility] Liter Flow (LPM) 30 04/28/19 5:13 AM OPTOMETRY DOCTOR [facility] P/F Ratio 287 04/28/2024 5:13 AM OPTOMETRY DOCTOR [facility] Blood, arterial ARTERIAL BLOOD SPECIMEN / Unknown 04/28/2024 5:11 AM OPTOMETRY DOCTOR 04/28/2024 5:11 AM OPTOMETRY DOCTOR us Tiago Armstrong MD LAB - BLOOD GASES ORDER MARISEL Final Result [facility] [address] [phone] * CT Chest Wo Contrast (04/25/2024 3:55 PM OPTOMETRY DOCTOR) Anatomical Region Laterality Modality Chest Computed Tomogra phy 04/26/2024 12:0 8 PM OPTOMETRY DOCTOR Impressions 04/26/2024 12:12 PM OPTOMETRY DOCTOR IMPRESSION: Medial bilateral lower lobe opacities. These demonstrate air bronchograms on the right greater than left, and could represent pneumonia or atelectasis. Correlation with the clinical picture is necessary. > Interpreting Provider: Nile Montiel MD on 04/26/2024 12:12 PM Narrative 04/26/2024 12:12 PM OPTOMETRY DOCTOR PROCEDURE: CT CHEST WO CONTRAST, DATE/TIME OF EXAM: 04/25/2024 3:57 PM, LOCATION [facility] INDICATION: right effusion and atelectasis ADDITIONAL CLINICAL [...] DATE/TIME OF EXAM: 04/25/2024 3:57 PM, LOCATION [facility] INDICATION: right effusion and atelectasis ADDITIONAL CLINICAL [...] PROTEIN URINE TIMED QUANTITATIVE (04/25/2024 10:35 AM OPTOMETRY DOCTOR) Volume 24 Hour Urine 2,110 mL 04/25/2024 11:12 AM [facility] Collection Time Hours 24 hrs 04/25/2024 11:12 AM [facility] Protein 24 Hour Urine 430(H) <300 mg/24hr 04/25/2024 11:12 AM [facility] Protein Urine 20.4(H) <11.9 mg/dL 04/25/2024 11:12 AM [facility] Urine URINE SPECIMEN COLLECTION, CATHETERIZED / Unknown Collection / Unknown 04/25/2024 10:35 AM OPTOMETRY DOCTOR 04/25/2024 10:53 AM OPTOMETRY DOCTOR Oswaldo Page MD LAB - URINE CHEMISTRY ORDERABLES Final Result Performing Organization Address [facility] Co de Phone Number [facility] [address] [place] [address] * (ABNORMAL) CREATININE CLEARANCE URINE TIMED + BLOOD (04/25/2024 10:35 AM [facility]) Volume 24 Hour Urine 2,110 mL 04/25/2024 11:11 AM [facility] Collection Time Hours 24 hrs 04/25/2024 11:11 AM [facility] Height Inches 70 inches 04/25/2024 11:11 AM [facility] Weight in Pounds 308 pounds 04/25/2024 11:11 AM [facility] Surface Area 2.51 04/25/2024 11:11 AM [facility] Creatinine 1.20(H) 0.57 - 1.11 mg/dL 04/25/2024 11:11 AM [facility] Creatinine Urine 29.94 mg/dL 04/25/2024 11:11 AM [facility] Creatinine 24 Hour Urine 632(L) 710 - 1,650 mg/24hr 04/25/2024 11:11 AM [facility] Creatinine Clearance 25(L) 66 - 165 mL/min/1.73 m2 04/25/2024 11:11 AM [facility] Urine URINE SPECIMEN COLLECTION, CATHETERIZED / Unknown Collection / Unknown 04/25/2024 10:35 AM OPTOMETRY DOCTOR 04/25/2024 10:53 AM [facility] Oswaldo Paeg MD LAB - URINE CHEMISTRY ORDERABLES Final Result Performing Organization Address [facility]/ZIP Co de Phone Number [facility] [address] [place] [address] * (ABNORMAL) COMPREHENSIVE METABOLIC PANEL (04/25/2024 5:00 AM [facility]) Glucose 184(H) 70 - 99 mg/dL 04/25/2024 5:48 AM [facility] Sodium 139 136 - 145 mmol/L 04/25/2024 5:48 AM [facility] Potassium 3.2(L) 3.5 - 5.1 mmol/L 04/25/2024 5:48 AM [facility] Chloride 102 98 - 107 mmol/L 04/25/2024 5:48 AM [facility] CO2 28 22 - 29 mmol/L 04/25/2024 5:48 AM [facility] Calcium 8.2(L) 8.4 - 10.4 mg/dL 04/25/2024 5:48 AM [facility] Anion Gap 9 6 - 16 mmol/L 04/25/2024 5:48 AM [facility] BUN 49(H) 7 - 26 mg/dL 04/25/2024 5:48 AM [facility] Creatinine 1.20(H) 0.57 - 1.11 mg/dL 04/25/2024 5:48 AM [facility] Alkaline Phosphatase 77 40 - 150 U/L 04/25/2024 5:48 AM [facility] ALT 18 0 - 55 U/L 04/25/2024 5:48 AM [facility] AST 11 5 - 34 U/L 04/25/2024 5:48 AM [facility] Protein Total 5.2(L) 6.4 - 8.3 gm/dL 04/25/2024 5:48 AM [facility] Albumin 2.1(L) 3.4 - 5.0 gm/dL 04/25/2024 5:48 AM [facility] Bilirubin Total 0.5 0.2 - 1.2 mg/dL 04/25/2024 5:48 AM [facility] eGFR by CKD-EPI 48(L) >=90 mL/min/1.7 3 m2 04/25/2024 5:48 AM [facility] Blood BLOOD SPECIMEN / Unknown Venipuncture / Unknown 04/25/2024 5:00 AM [facility] 04/25/2024 5:15 AM [facility] us Oswaldo Page MD LAB - CHEMISTRY ORDERABLES Final Result [facility] [address] [facility] [place] [address] * PHOSPHORUS BLOOD (04/25/2024 5:00 AM [facility]) [facility] Phosphorus 3.2 2.5 - 4.5 mg/dL 04/25/2024 5:45 AM OPTOMETRY DOCTOR [facility] Blood BLOOD SPECIMEN / Unknown Venipuncture / Unknown 04/25/2024 5:00 AM OPTOMETRY DOCTOR 04/25/2024 5:15 AM OPTOMETRY DOCTOR Oswaldo Page MD LAB - CHEMISTRY ORDERABLES Final Result Performing Organization Address City/[facility]/ZIP Co de Phone Number [facility] [address] [place] [address] * HEPATITIS SCREEN ACUTE (2024 4:45 AM OPTOMETRY DOCTOR) Pathologist [facility] HAV Antibody IgM Non Reactive Non Reactive 2024 10:44 AM OPTOMETRY DOCTOR [facility] HBsAg Non Reactive Non Reactive 2024 10:44 AM OPTOMETRY DOCTOR [facility] HBc Antibody IgM Non Reactive Non Reactive 2024 10:44 AM OPTOMETRY DOCTOR [facility] HCV Antibody Screen Non Reactive Non Reactive 2024 10:44 AM OPTOMETRY DOCTOR [facility] Blood BLOOD SPECIMEN / Unknown Venipuncture / Unknown 2024 4:45 AM OPTOMETRY DOCTOR 2024 4:56 AM OPTOMETRY DOCTOR Narrative [facility] - 2024 10:44 AM OPTOMETRY DOCTOR Non Reactive - Antibodies to Hepatitis C virus (HCV) were not detected, result does not exclude early acute HCV infection. You Arana MD LAB - CHEMISTRY ORDERABLES F inal Result Performing Organization Address City/[facility] Co de Phone Number [facility] [address] [place] [address] from Last 3 Months or Most Recently Relevant to Health Maintenance Insurance MEDICARE MEDICARE [facility] [place] [address] Care Teams Chronometer Assembler And Adjuster Relationship Specialty Start Date End Date Walt Kirk MD [address] [place] [address] [address] [place] [address] PCP - General 07/16/18
--- OUTSIDE RECORDS SUMMARY | 2024-07-20 10:09 | XMS_ITS | Clinical Summary ---
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 Gender Identity Not on file Sexual Orientation [...] vaccine 65+ Completed 08/28/2021, 01/02 Insurance MEDICARE [facility] [place] [address] MEDICARE [facility] MEDICARE [facility] [place] [address] Advance Directives For more information, please contact: [phone] * Full Code (Latest Code Status on File) Date Activated Date Inactivated Comments 08/16/2018 1:35 PM 08/17/2018 7:26 PM Care Teams Video Operator Relationship Specialty Start Date End Date Walt Kirk MD [address] [facility] [address] [place] [address] PCP - General Internal Medicine 07/20/18 Venu Leon MD [address] [place] [address] Referring Physician Obstetrics and Gynecology 07/20/18
--- OUTSIDE RECORDS SUMMARY | 2024-07-20 10:09 | XMS_ITS | CONTINUITY OF CARE DOCUMENT ---
Author Name yenni hyman Address Unknown Organization [facility] Address [address] [place] [address] Phone [phone] Care Team Providers Care Operator And Truck Driver Name Role Phone Jonathan APARICIO, Mariusz Unavailable CARLOS ALBERTO APARICIO, LÓPEZ Unavailable [phone] LÓPEZ CARCAMO MD Unavailable PROBLEMS Condition Status [...] In-person encounter Office Visit Mariusz Castillo MD [facility] Cardiology examination - In-person encounter Office Visit Mariusz Castillo MD [facility] Atrial fibrillation - In-person encounter Office Visit Mariusz Castillo MD [facility] Body mass index (BMI) 45.0-49.9, adult - In-person encounter Office Visit Mariusz Castillo MD [facility] Coronavirus infection 04/2019. - In-person encounter Office Visit Mariusz Castillo MD [facility] Vaccination--covid vaccine, pfizer 04/2020 - In-person encounter Office Visit Mariusz Castillo MD [facility] - In-person encounter Office Visit Mariusz Castillo MD [facility] - In-person encounter Office Visit Mariusz Castillo MD [facility] KAREN--severe 09/2020 not on cpap - In-person encounter Office Visit Mariusz Castillo MD [facility] Office CHEST PAIN- ca score zero 09/2020HTN--echo 65%, PA pressure 38,, 08/2020 - In-person encounter Office Visit Mariusz Castillo MD [facility] Prediabetes - In-person encounter Office Visit Mariusz Castillo MD [facility] Diabetes mellitusCoronavirus infection 04/2019. - In-person encounter Office Visit Mariusz Castillo MD [facility] Endometrial cancer s/p hysterectomy & radiationHyperlipidemia - In-person encounter Office Visit Mariusz Castillo MD [facility] - In-person encounter Office Visit Mariusz Castillo MD [facility] - In-person encounter Office Visit Mariusz Castillo MD [facility] Edema varicose veins - In-person encounter Office Visit Mariusz Castillo MD [facility] HTN--echo 65%, PA pressure 38,, RADYCARDIA, SINUSSinus bradycardia - In-person encounter Office Visit Mariusz Castillo MD [facility] - In-person encounter Office Visit Mariusz Castillo MD [facility] - In-person encounter Office Visit Mariusz Castillo MD [facility] - In-person encounter Office Visit Mariusz Castillo MD [facility] - In-person encounter Office Visit Mariusz Castillo MD [facility] HTN--echo 65%, PA pressure 38,, 08/2020 - In-person encounter Office Visit Mariusz Castillo MD [facility] Office - In-person encounter Office Visit Mariusz Castillo MD [facility] CHEST PAIN- ca score zero 09/2020HTN--echo [...] blood pressure, diastolic 82 mm[Hg] Casey coronado [place] blood pressure, systolic 115 mm[Hg] Sharri wyman [place] oxygen saturation, oximetry 95 % Julee [place] pulse rate 87 /min Julee [place] respiratory rate E&M 14 /min Julee [place] weight E&M 328 [lb_av] Julee [place] height E&M 71 [in_i] Julee [place] blood pressure, cuff size large Casey coronado [...] Carmelo blood pressure, diastolic 59 mm[Hg] Carmelo rust blood pressure, systolic 145 mm[Hg] Bunny [facility] pulse rate 52 /min [facility] oxygen saturation, oximetry 96 % [facility] respiratory rate E&M 12 /min [facility] weight E&M 319 [lb_av] [facility] height E&M 71 [in_i] [facility] Body Mass Index (Ratio) 42.67 kg/m2 Benedicto [...] Cem oxygen saturation, oximetry 98 % Shefali Cem respiratory rate E&M 16 /min Catheri ne Cem pulse rate 68 /min Shefali Cem weight E&M 332 [lb_av] Shefali [place] blood pressure, cuff size large Ca therine Cem height E&M 71 [in_i] Shefali Cem Body Mass Index (Ratio) 46.30 kg/m2 Benedicto [...] Lauren stity Em pulse rate 79 /min [facility] rate E&M 16 /min Chastit y Em weight E&M 330 [lb_av] [facility] height E&M 71 [in_i] [facility] Em Body Mass Index (Ratio) 45.88 kg/m2 Benedicto Castillo MD blood pressure, cuff size large Ke [facility]ri [facility] blood pressure, diastolic 90 mm[Hg] Ke rri Markosuenenfproctor hospitaler blood pressure, systolic 142 mm[Hg] Cece [facility] oxygen saturation, oximetry 97 % Cortney Stephanienfproctor hospitaler respiratory rate E&M 18 /min Cortney G ruenenfelder pulse rate 55 /min Ocrtney Arpitnenfe er weight E&M 329 [lb_av] Cortney [...] aaron Rich oxygen saturation, oximetry 96 % Kirstine Villanueva respiratory rate E&M 17 /min Kristine [...] Cortney Meza respiratory rate E&M 20 /min Cotrney oconnell pulse rate 70 /min Cortney hawthorneer [...] cell distribution width, size density 44.7 fL [facility] - immature granulocytes, percentage of total cells, blood 0.3 % [facility] - nucleated red blood cells as percent of blood leukocytes 0.0 % [facility] - red blood cell (erythrocyte) count, per high power field 0.0 10*3/UL [facility] eosinophils as percent of blood leukocytes 3.6 % [facility] - neutrophils as percent of blood leukocytes 47.3 % [facility] - Absolute Neutrophils 3.3 CELLS/UL [facility] 1.5 - 7.8 basophils as percent of blood leukocytes 0.6 % [facility] - Absolute Basophils 0.0 CELLS/UL [facility] 0.0 [...] erythrocyte count, whole blood 4.8 MILLION/U L [facility] 3.5 - 5.5 hemoglobin A1C, blood, as % of total hemoglobin 6.1 % [facility] 4.0 - 6.0 High platelet count 310 10*3/mm3 [facility] hematocrit, blood 38.3 % [facility] triglyceride, serum, fasting 164 mg/dL [facility] HDL cholesterol, serum 43 mg/dL [facility] cholesterol/HDL ratio, serum 4.2 [facility] lipoprotein, beta, serum, point, quantitative, calculated 103 mg/dL [facility] cholesterol, serum 179 mg/dL [facility] thyroid stimulating hormone, serum 2.51 u[IU]/mL [facility] alanine aminotransferase (SGPT), serum 22 1/L [facility] aspartate aminotransferase (SGOT), serum 14 1/L [facility] blood glucose, random 121 mg/dL [facility] creatinine, serum 0.81 mg/dL Hilario Myers urea nitrogen, blood 15 mg/dL Hilario Myers potassium, serum 3.8 mmol/L Hilario Myers sodium, serum 137 mmol/L Hilario Myers HISTORY OF MEDICATION USE Medication Status Instructions Dates Provider Indications Com ments ezetimibe 10 mg tablet active TAKE 1 TABLET BY MOUTH EVERY DAY 06/21 Mitchel Ahmedzai Mounjaro 2.5 mg/0.5 mL pen injector active INJECT 1 PEN INJECTOR SUBCUTANEOUSLY ONCE A WEEK FOR 4 WEEKS. IF TOLERATED WILL INCREASE DOSE 04/03 Mitchel Ahmedzai Eliquis 5 mg tablet active TAKE 1 TABLE T BY MOUTH TWICE DAILY 04/03 Mitchel Ahmedzai ezetimibe 10 mg tablet completed Take 1 tablet by mouth once a day 09/20 - 06/21 Mitchel Ahmedzai Mounjaro 2.5 mg/0.5 mL pen injector completed INJECT [...] MD metoprolol tartrate 25 mg tablet active TAKE 1 TABLET BY MOUTH TWICE A DAY 09/18 Mitchel Dupont ezetimibe 10 mg tablet completed TAKE 1 [...] smoker Mitchel Tangchristos drug use no Mitchel Dupont alcohol use no Mitchel Dupont passive cigarette sm gato exposure no Mitchel Dupont smoking status Never smoker Mitchel Tangchristos drug use no Mitchel Dupont alcohol use no Mitchel Dupont passive cigarette sm gato exposure no Mitchel Dupont smoking status Never smoker Mitchel Tangchristos social history reviewed E&M revi ewed - no changes required Mitchel Nidiadelisa drug use no Ely Ventimig deborah [facility] alcohol use no Ely Ventimig deborah [facility] physical exercise, frequency, days per week no Juana Villanueva caffeine use, averag e drinks per day yes Juana Villanueva passive cigarette sm gato exposure no Juana Villanueva smoking status Never smoker Juana Villanueva social history E&M Marital Statu s: L dion with family/friends E thnicity: Smoking History: Carlee imelda has never smoked. Mitchel Dupont smoking status Never smoker Makayla Garret social history reviewed E&M revi ewed - no changes required Mitchel Dupont physical exercise, frequency, days per week no Shefali Cem caffeine use, averag e drinks per day yes Shefali Cem passive cigarette sm gato exposure no Shefali [place] smoking status Never smoker Shefali Alia s social history reviewed E&M revi ewed - no changes required Mitchel Dupont social history E&M Marital Statu s: L dion with family/friends E thnicity: Smoking History: P imelda has never smoked. Mitchel Kiah physical exercise, frequency, days per week no Cortney Markossmithacandidorojelioer caffeine use, averag e drinks per day yes Cortney Davidaer passive cigarette sm gato exposure no Cortney Markossmithacandidorojelioer smoking status Never smoker Cortney Brownmoises judie social history reviewed E&M revi ewed - no changes required Mitchel Kiah physical exercise, frequency, days per week no Chastity Em caffeine use, averag e drinks per day yes Chastity Em passive cigarette sm gato exposure no Chastity Em smoking status [facility] social history E&M Marital Statu s: L dion with family/friends E thnicity: S moking History: P imelda has never smoked. Mariusz Castillo MD social history reviewed E&M revi ewed - no changes required Mariusz Castillo MD social history E&M Marital Statu s: L dion with family/friends E thnicity: Smoking History: P imelda has never smoked. Napoleon Lancaster social history reviewed E&M revi ewed - no changes required Napoleon Lancaster physical exercise, frequency, days per week no Cortney Derrick caffeine use, averag e drinks per day yes Cortney Derrick passive cigarette sm gato exposure no Cortney Markosmicah smoking status Never smoker Cortney Brownmoises judie social history E&M Marital Statu s: L dion with family/friends E thnicity: Smoking History: P imelda has never smoked. Mariusz Castillo MD social history reviewed E&M revi ewed - no changes required Mariusz Castillo MD smoking status Never smoker [facility] physical exercise, frequency, days per week no [facility] caffeine use, averag e drinks per day yes [facility] passive cigarette sm gato exposure no [facility] social history reviewed E&M revi ewed - no changes required Mariusz Castillo MD smoking status Never smoker Kristine Osborne [facility] number of grandchildren Mariusz Castillo MD T [...] Cortney Burrowsmicah smoking status Never smoker Cortney Yolanda dimas social history reviewed E&M revi ewed - no changes required Mariusz Castillo MD physical exercise, frequency, days per week no Rekha Estrada alcohol counseling no Rekha Jennifer ramirez In the past 3 months , have you been waking up wanting to use drugs? (CAGE substance use question #4) N Rekhasuleman Estrada In the past 3 months , have you felt guilty or bad about using drugs? (CAGE substance use question #3) N Rekhasuleman Estrada In the past 3 months , has anyone annoyed you by telling you to cut down or stop using drugs? (CAGE substance use question #2) N Rekhasuleman Estrada In the past 3 months , have you felt you should cut down or stop using drugs?(CAGE substance use question #1) N Rekha Estrada alcohol use, average drinks per day social basis only Rekhasuleman Estrada alcohol use no Rekha Sean caffeine use, averag e drinks per day yes Rekhasuleman Estrada drug use none Rekha Estrada passive cigarette sm gato exposure no Rekha Estrada smoking status Never smoker Rekharai Estrada social history E&M Marital Statu s: L dion with family/friends E thnicity: Smoking History: P imelda has never smoked. Mariusz Castillo MD social history reviewed E&M revi ewed - no changes required Mariusz Castillo MD alcohol use no Cortney jacobsen smoking status Never smoker Cortney Yolanda dimas [...] social basis only [facility] smoking status Non-smoker [facility] MENTAL STATUS Date Observation Value Provider assessment [...] Payer name Policy type / Coverage type [place] [employer] 27 bards [id number] [place] Medicare [id number] ADVANCE DIRECTIVES Name Date DISCUSSED - NO DECISION MADE TREATMENT PLAN Date Name Performer [id number],Mitchel Barry i [id number],Mitchel Barry i [id number],Mitchel Barry i [id number],S, Mitchel Tang i [id number],S, Mitchel Tang i [id number],S, Mitchel Tang i [id number],S, Mitchel Tang i [id number],C,H gbA1C has been ordered per PCP. May [...] (Aspirin) ..... 1 tablet once a day [facility] [id number],C,e ncouraged compression and elevation [facility] [id number],C,o n zetia. Will update lipids H er updated medication list for this problem includes: Ezetimibe 10 Mg Tablet (Ezetimibe) ..... Take 1 tablet by mouth every day Orders: 9 9214 MOD 30-39min (CPT-26252) L IPID PANEL (9810) [facility] [id number],C,c ontrolled. asymptomatic at baseline. Will continue low dose BB and monitor H er updated medication list for this problem includes: Metoprolol Tartrate 25 Mg Tablet (Metoprolol tartrate) ..... Take 1 tablet by mouth twice daily Aspirin 325 Mg Tablet (Aspirin) ..... 1 tablet once a day [facility] [id number],C,B lood pressure controlled 133/65 today. Will continue [...] 1 tablet once a day Ely Childers [facility] [id number],S, Mitchel Ahmedza i [id number],B, Mitchel Ahmedza i [id number],S, Mitchel Ahmedza i [id number],S, Mitchel Ahmedza i [id number],S, Mitchel Ahmedza i [id number],S, Mitchel medza i [id number],S, Mitchel medza i [id number],S, Mitchel medza i [id number],S, Mitchel Ahmedza i [id number],S, Mitchel Ahmedza i [id number],S, Mitchel medza i [id number],B, [facility] [id number],S, Mariusz Castillo MD [id number],S, Mariusz Castillo MD [id number],S, Mariusz Castillo MD [id number],S, Mariusz Castillo MD [id number],S, Mariusz Castillo MD [id number],S, Mariusz Castillo MD [id number],S, Mitchel telloza i [id number],S, Mitchel medza i [id number],S, Mitchel Tang i [id number],S, Mitchel Tang i [id number],S, Mitchel Tang i [id number],B, Mariusz Castillo MD [id number],S, Mariusz Castillo MD [id number],S, Mariusz Castillo MD [id number],S, Mariusz Castillo MD [id number],W, Mariusz Castillo MD [id number],B, Mariusz Castillo MD Cardiology:This visi t has [...] O rders: C OMPREHENSIVE METABOLIC PANEL, W/EGFR (90108) T SH, free T4, total T3 (7444) P ROBNP, N TERMINAL (05475) H EMOGLOBIN A1c (496) Mitchel Dupont Cardiology: O rders: C OMPREHENSIVE METABOLIC PANEL, W/EGFR (66656) T SH, free T4, total T3 (7444) P ROBNP, N TERMINAL (38749) H EMOGLOBIN A1c (496) BP today: 115/82 [...] O rders: C OMPREHENSIVE METABOLIC PANEL, W/EGFR (71988) T SH, free T4, total T3 (7444) P ROBNP, N TERMINAL (41621) H EMOGLOBIN A1c (496) Mitcheljohn Tang Cardiology: O rders: C OMPREHENSIVE METABOLIC PANEL, W/EGFR (08608) T SH, free T4, total T3 (7444) P ROBNP, N TERMINAL (36610) H EMOGLOBIN A1c (496) Her updated medication list for this problem includes: Metoprolol Tartrate 25 Mg Tablet (Metoprolol tartrate) ..... Take 1 tablet by mouth twice a day Aspirin 325 Mg Tablet (Aspirin) ..... 1 tablet once a day Mitcheljohn Tang Cardiology: O rders: C OMPREHENSIVE METABOLIC PANEL, W/EGFR (44649) T SH, free T4, total T3 (7444) P ROBNP, N TERMINAL (32619) H EMOGLOBIN A1c (496) Her updated medication list for this problem includes: Metoprolol Tartrate 25 Mg Tablet (Metoprolol tartrate) ..... Take 1 tablet by mouth twice a day Aspirin 325 Mg Tablet (Aspirin) ..... 1 tablet once a day Mitcheljohn Tang Cardiology: O rders: C ardioversion (68473) T EE (06904) D oppler echocardiography color flow (47550) D oppler echocardiography, with spectral display (22628) C BC (INCLUDES DIFF/PLT) (6399) L IPID PANEL (7600) P ROTHROMBIN TIME WITH INR (8847) C OMPREHENSIVE METABOLIC PANEL, W/EGFR (09093) T SH, free T4, total T3 (0544) P ROBNP, N TERMINAL (34171) H EMOGLOBIN A1c (496) Her updated medication list for this problem includes: Metoprolol Tartrate 25 Mg Tablet (Metoprolol tartrate) ..... Take 1 tablet by mouth twice a day Aspirin 325 Mg Tablet (Aspirin) ..... 1 tablet once a day [facility] Telehealth: H er updated medication list for this problem includes: Losartan-hydrochlorothiazide 100-25 Mg Tablet (Losartan-hydrochlorothiazide) ..... Take 1 tablet by mouth every day Metformin 500 Mg Tablet (Metformin) ..... Take 1 tablet by mouth twice a day Aspirin 325 Mg Tablet (Aspirin) ..... 1 tablet once a day [facility] Telehealth [facility] Telehealth: H er updated medication list for this problem includes: Metoprolol Tartrate 25 Mg Tablet (Metoprolol tartrate) ..... Take 1 tablet by mouth twice a day Losartan-hydrochlorothiazide 100-25 Mg Tablet (Losartan-hydrochlorothiazide) ..... Take 1 tablet by mouth every day Aspirin 325 Mg Tablet (Aspirin) ..... 1 tablet once a day [facility] Telehealth: H er updated medication list for this problem includes: Metoprolol Tartrate 25 Mg Tablet (Metoprolol tartrate) ..... Take 1 tablet by mouth twice a day Aspirin 325 Mg Tablet (Aspirin) ..... 1 tablet once a day [facility] Telehealth: H er updated medication list for this problem includes: Metoprolol Tartrate 25 Mg Tablet (Metoprolol tartrate) ..... Take 1 tablet by mouth twice a day Aspirin 325 Mg Tablet (Aspirin) ..... 1 tablet once a day Orders: M onitor - Telemetry (Mobile Cardiac) (CPT-83923) [facility] Cardiology:This visi t has been a part [...] day Orders: C OMPREHENSIVE METABOLIC PANEL, W/EGFR (33602) C BC (INCLUDES DIFF/PLT) (6399) L IPID PANEL (7600) P ROBNP, N TERMINAL (46150) H EMOGLOBIN A1c (496) Mariusz Castillo MD Cardiology: H er updated medication list for this problem includes: Losartan-hydrochlorothiazide 100-25 Mg Tablet (Losartan-hydrochlorothiazide) ..... Take 1 tablet by mouth every day Metformin 500 Mg Tablet (Metformin) ..... Take 1 tablet by mouth twice a day Aspirin 325 Mg Tablet (Aspirin) ..... 1 tablet once a day Orders: C OMPREHENSIVE METABOLIC PANEL, W/EGFR (95741) C BC (INCLUDES DIFF/PLT) (6399) L IPID PANEL (7600) P ROBNP, N TERMINAL (44746) H EMOGLOBIN A1c (496) [facility] Cardiology: O rders: C OMPREHENSIVE METABOLIC PANEL, W/EGFR (02609) C BC (INCLUDES DIFF/PLT) (6399) L IPID PANEL (7600) P ROBNP, N TERMINAL (18015) H EMOGLOBIN A1c (496) [facility] Cardiology: O rders: C OMPREHENSIVE METABOLIC PANEL, W/EGFR (89976) C BC (INCLUDES DIFF/PLT) (6399) L IPID PANEL (7600) P ROBNP, N TERMINAL (85800) H EMOGLOBIN A1c (496) [facility] Cardiology: O rders: C OMPREHENSIVE METABOLIC PANEL, W/EGFR (79939) C BC (INCLUDES DIFF/PLT) (6399) L IPID PANEL (7600) P ROBNP, N TERMINAL (53696) H EMOGLOBIN A1c (496) Mitchel Tangchristos Cardiology: H er updated medication list for this problem includes: Metoprolol Tartrate 25 Mg Tablet (Metoprolol tartrate) ..... Take 1 tablet by mouth twice a day Losartan-hydrochlorothiazide 100-25 Mg Tablet (Losartan-hydrochlorothiazide) ..... Take 1 tablet by mouth every day Aspirin 325 Mg Tablet (Aspirin) ..... 1 tablet once a day Orders: C OMPREHENSIVE METABOLIC PANEL, W/EGFR (15363) C BC (INCLUDES DIFF/PLT) (6399) L IPID PANEL (7600) P ROBNP, N TERMINAL (48527) H EMOGLOBIN A1c (496) Mitchel tellochristos Cardiology: H er updated medication list for this problem includes: Metoprolol Tartrate 25 Mg Tablet (Metoprolol tartrate) ..... Take 1 tablet by mouth twice a day Aspirin 325 Mg Tablet (Aspirin) ..... 1 tablet once a day Orders: C OMPREHENSIVE METABOLIC PANEL, W/EGFR (84692) C BC (INCLUDES DIFF/PLT) (6399) L IPID PANEL (7600) P ROBNP, N TERMINAL (12332) H EMOGLOBIN A1c (496) [facility]: B P today: 130/74 P rior [...] (Aspirin) ..... 1 tablet once a day Mitcheljohn Jacobdelisa Cardiology: H er updated medication list for this problem includes: Metoprolol Tartrate 25 Mg Tablet (Metoprolol tartrate) ..... Take 1 tablet by mouth twice a day Aspirin 325 Mg Tablet (Aspirin) ..... 1 tablet [facility] a day [facility]: H er updated medication list for this problem includes: Losartan-hydrochlorothiazide 100-25 Mg Tablet (Losartan-hydrochlorothiazide) ..... Take 1 tablet by mouth every day Metformin 500 Mg Tablet (Metformin) ..... Take 1 tablet by mouth twice a day Aspirin 325 Mg Tablet (Aspirin) ..... 1 tablet once a day [facility]: H er updated medication list for this problem includes: Rosuvastatin 20 Mg Tablet (Rosuvastatin) ..... Take 1 tablet by mouth every day Ezetimibe 10 Mg Tablet (Ezetimibe) ..... Take 1 tablet by mouth every day [facility] Card[facility]:HgbA1C hugo s been ordered per PCP. [...] 1 tablet once a day Ely Ventimiglia [facility] Cardiology:encouraged compressio n and elevation Ely Ventimiglia [facility] Cardiology:on zetia. Will update lipids H er updated medication list for this problem includes: Ezetimibe 10 Mg Tablet (Ezetimibe) ..... Take 1 tablet by mouth every day Orders: 9 9214 MOD 30-39min (CPT-05259) L IPID PANEL (8352) Elygerardo Childers [facility] Cardiology:controlle d. asymptomatic at baseline. Will continue low dose BB and monitor H er updated medication list for this problem includes: Metoprolol Tartrate 25 Mg Tablet (Metoprolol tartrate) ..... Take 1 tablet by mouth twice daily Aspirin 325 Mg Tablet (Aspirin) ..... 1 tablet once a day Elygerardo Childers [facility] Cardiology:Blood pre ssure controlled 133/65 today. [...] 1 tablet once a day Elygerardo Childers [facility] Cardiology Mitchel Ahmedzai Cardiology Mitchel Ahmedzai [...] Cardiology Mitchel Ahmedzai Cardiology Mitchel Ahmedzai Cardiology Mitcehl Ahmedzai Cardiology Mitchel Ahmedzai Cardiology Mariusz Castillo MD Cardiology Mariusz Castillo MD Cardiology Mariusz Castillo MD Cardiology Mariusz Castillo MD Cardiology Mariusz Castillo MD Cardiology Tonsaturnino Castillo MD Cardiology Follow up - Toniya Jessica garcia MD Cardiology Follow up - Toniya Jessica garcia MD Cardiology Follow up - Toniya Jessica garcia MD Cardiology Follow up - Toniya Jessica garcia MD Cardiology Follow up - Toniya Jessica garcia MD Cardiology Mariusz Castillo MD Cardiology Tonsaturnino Castillo MD Cardiology Tonsaturnino Castillo MD Cardiology Mariusz Castillo MD Cardiology Tonsaturnino Castillo MD Cardiology Tonsaturnino Castillo MD Cardiology Mariusz Castillo MD Cardiology Tonsaturnino Castillo MD Cardiology Tonsaturnino Castillo MD Cardiology Mariusz Castillo MD Cardiology Follow up Tonsaturnino sanchez MD Cardiology Follow up :please check your bp daily Goal BP is as close to 120/80 as possible Mariusz Castillo MD Cardiology Follow up Toniya Mohan sanchez MD Cardiology Follow up Toniya Mohan sanchez MD Cardiology Follow up Toniya Mohan sanchez MD Cardiology Follow up Toniya Mohan sanchez MD Cardiology Follow up Toniya Mohan sanchez MD Cardiology Follow up Toniya Mohan sanchez MD Cardiology Follow up Toniya Mohan sanchez MD Cardiology Follow up Toniya Mohan sanchez MD Cardiology Follow up Toniya Mohan sanchez MD Cardiology Follow up Toniya Mohan sanchez MD FOLLOW UP: H er updated medication list for this problem includes: Metoprolol Tartrate 25 Mg Tabs (Metoprolol tartrate) ..... One tab. twice daily Hydrochlorothiazide 25 Mg Tabs (Hydrochlorothiazide) ..... One tab daily Aspirin 325 Mg Tabs (Aspirin) ..... One tab daily Orders: E KG (CPT-93402) BP today: 138/67 P rior BP: 156/88 [...] ..... One tab daily Orders: E KG (CPT-[id number]) BP today: 156/88 Prior BP: 146/80 (06/21/2012) C ardiac Cath: Normal LV systolic function. Normal coronary disease. Pursue risk factor modification. [facility] (11/13/2003) Mariusz Castillo MD Follow Up: H [...] Normal coronary disease. Pursue risk factor modification. [facility] (11/13/2003) Mariusz Castillo MD follow up: H er updated medication list for this problem includes: Metoprolol Tartrate 25 Mg Tabs (Metoprolol tartrate) ..... One tab. twice daily Aspirin 325 Mg Tabs (Aspirin) ..... One tab daily Orders: E KG (CPT-59877) BP today: 146/80 Prior BP: 152/87 (06/23/2011) C ardiac Cath: Normal LV systolic function. Normal coronary disease. Pursue risk factor modification. [facility] (11/13/2003) Mariusz Castlilo MD follow up: H er updated medication [...] Normal coronary disease. Pursue risk factor modification. [facility] (11/13/2003) Mariusz Castillo MD follow up: H er updated medication list for this problem includes: Metoprolol Tartrate 25 Mg Tabs (Metoprolol tartrate) ..... One tab. twice daily Aspirin 325 Mg Tabs (Aspirin) ..... One tab daily BP today: 152/87 Prior BP: 155/83 (06/25/2009) C ardiac Cath: Normal LV systolic function. Normal coronary disease. Pursue risk factor modification. [facility] (11/13/2003) Echocardiogram: Normal left ventricular systolic function. [...] ..... One tab daily Orders: E KG (CPT-27766) BP today: 152/87 Prior BP: 155/83 (06/25/2009) [...] Normal coronary disease. Pursue risk factor modification. [facility] (11/13/2003) Mariusz Castillo MD : H er updated medication list for this problem includes: Metoprolol Tartrate 25 Mg Tabs (Metoprolol tartrate) ..... One tab. twice daily Aspirin 325 Mg Tabs (Aspirin) ..... One tab daily BP today: / Prior BP: 155/83 (06/25/2009) C ardiac Cath: Normal LV systolic function. Normal coronary disease. Pursue risk factor modification. [facility] (11/13/2003) E chocardiogram: TDS. LV chamber size and wall thickness is normal. Normal LV function. LV EF is estimated at 60%. Mild LAE. Thickened MVL. Trace MR. Trace TR. Right heart pressure could not be adequately evaluated. [facility] (07/10/2008) Mariusz Castillo MD Mariusz Castillo MD [...] Normal coronary disease. Pursue risk factor modification. [facility] (11/13/2003) E chocardiogram: Normal echo. EF 60%. [facility] (07/05/2007) Orders: E KG (CPT-[id number]) Mariusz Castillo MD Date Name Holter Monitor [...] completed EKG Mariusz Castillo MD completed SNOMED-CT: [id number] Current Medications Documented Mariusz Castillo MD completed SNOMED-CT: [id number] Physical Exam, Performed: Pulse Exam of Foot Mariusz Castillo MD completed SNOMED-CT: [id number] Physical Exam, Performed: Pulse Exam of Foot Mariusz Castillo MD completed EKG Mariusz Castillo MD completed SNOMED-CT: [id number] Current Medications Documented Mariusz Castillo MD completed EKG Mariusz Castillo MD completed EKG Mariusz Castillo MD completed EKG Mariusz Castillo MD completed EKG Mariusz Castillo MD completed EKG Mariusz Castillo MD completed
--- OUTSIDE RECORDS SUMMARY | 2024-07-20 10:09 | XMS_ITS | Data Portability ---
Author Organization [facility] [employer], Main Office Address [address] [place] [address] Care Team Providers Care Talent Recruiter Name Role Phone LÓPEZ KIRK Primary Care Provider [phone] LÓPEZ KIRK Referring Provider LEOBARDO HERR Network Operations Project Manager DORIAN CARBAJAL Surgical Consultant BRODIE HARRISON Patrol Officer Assessment Encounter Date Assessment Date Assessment LastModified by Organization Details LastModified Time 10/12/2023 10/12/2023 This note is dictated and transcribed by [employer]. Diesel Fleet Mechanic variances may occur. Despite proofreading, typographical errors may occur. Occasional wrong-word or 'gugru-s-pice' substitutions may have occurred due to the inherent limitations of voice recording. Read the chart carefully and recognize, using context, where substitutions have occurred. Not available 10/12/2023 15:43:25 01/11/2024 01/11/2024 This note is dictated and transcribed by [employer]. Diesel Fleet Mechanic variances may occur. Despite proofreading, typographical errors may occur. Occasional wrong-word or 'cwetl-t-cnsj' substitutions may have occurred due to the [...] By Organization Details Last Modified Time 09/09/2023 [id number] Follow-up hypertension, hyperlipidemia, type 2 diabetes, history [...] with voice recognition software. Occasional wrong-word or ffxvo-i-ncyv substitutions may have occurred due to the inherent limitations of voice recognition software. Read the chart carefully and recognize, using context, where substitutions have occurred. [email or web address] Not available 09/09/2023 16:55:56 01/11/2024 [id number] diabetes foot health: care instructions Not available 01/11/2024 15:44:38 03/16/2024 [id number] Follow-up for essential hypertension persistent atrial fibrillation, [...] with voice recognition software. Occasional wrong-word or hecxt-z-kfsm substitutions may have occurred due to the inherent limitations of voice recognition software. Read the chart carefully and recognize, using context, where substitutions have occurred. Created: López Kirk M.D. 03.16.2024 04:14 PM [email or web address] Not available 03/16/2024 17:15:03 Reason for Referral None Reported. Results Created Date Observation Date Name Description Value Unit Range Abnormal Flag Note LastModifiedBy Organization Detail LastModifiedTime 03/27/19 25 03/26/2024 XR, chest No observ ation record ed. [id number] [facility] [address], [place], [address], 03/28/2024 15:19:08 03/27/19 25 03/27/2024 CT, chest , w/ contr ast No observ ation record ed. [address], [place], [address], 03/28/2024 16:50:40 03/27/19 25 03/27/2024 CT, brain , w/o contr ast No observ ation record ed. [address], [place], [address], 03/28/2024 16:51:02 03/28/19 25 03/28/2024 XR, chest , 1 view No observ ation record ed. [address], [place], [address], 03/28/2024 08:26:46 03/28/19 25 03/28/2024 XR, chest No observ ation record ed. [address], [place], [address], 04/15/2024 14:36:03 03/28/1903/28/2024 XR, chest , 1 view No observ ation record ed. [address], [place], [address], 03/28/2024 17:27:34 03/29/1903/28/2024 CT, brain , w/o contr ast No observ ation record ed. [address], [place], [address], 03/29/2024 08:35:09 03/29/1903/29/2024 XR, chest No observ ation record ed. [address], [place], [address], 03/29/2024 08:35:30 03/29/19 25 03/29/2024 gastr ostom y tube manag ement * No observ ation record ed. [address], [place], [address], 03/29/2024 10:15:50 03/29/19 25 03/29/2024 US, echoc ardio gram No observ ation record ed. [address], [place], [address], 03/29/2024 21:25:19 03/30/19 25 03/30/2024 XR, chest , 1 view No observ ation record ed. [address], [place], [address], 03/30/2024 08:33:59 03/31/19 25 03/31/2024 XR, chest No observ ation record ed. [email or web address] [address], [place], [address], 04/15/2024 14:36:13 03/31/19 25 03/31/2024 US, renal No observ ation record ed. [address], [place], [address], 03/31/2024 17:02:03 03/31/19 25 03/31/2024 US, abdom en No observ ation record ed. [address], [place], [address], 03/31/2024 17:03:09 04/01/19 25 04/01/2024 XR, chest No observ ation record ed. [address], [place], [address], 04/01/2024 08:40:17 04/03/19 25 04/03/2024 XR, chest No observ ation record ed. [address], [place], [address], 04/03/2024 10:20:29 04/04/19 25 04/04/2024 XR, chest , 1 view No observ ation record ed. [address] [address], [place], [address], 04/04/2024 08:54:02 04/05/19 25 04/05/2024 XR, chest No observ ation record ed. [address] [address], [place], [address], 04/15/2024 15:09:58 04/06/19 25 04/06/2024 XR, chest , 1 view No observ ation record ed. [address] [address], [place], [address], 04/06/2024 09:03:41 04/07/19 25 04/07/2024 XR, chest No observ ation record ed. [address] [address], [place], [address], 04/15/2024 15:10:07 04/08/19 25 04/08/2024 XR, chest No observ ation record ed. [address] [address], [place], [address], 04/15/2024 15:10:29 04/09/19 25 04/09/2024 XR, chest No observ ation record ed. [address] [facility], [place], [address], 04/09/2024 15:32:26 04/10/19 25 04/10/2024 XR, chest No observ ation record ed. [address], [address], 04/15/2024 15:10:46 04/11/19 25 04/11/2024 XR, chest No observ ation record ed. [email or web address] [address], [place], [address], 04/15/2024 15:13:59 04/12/19 25 04/12/2024 XR, chest No observ ation record ed. [address] [address], [place], [address], 04/12/2024 08:20:05 04/13/19 25 04/13/2024 XR, chest , 1 view No observ ation record ed. [address] [address], [place], [address], 04/13/2024 08:08:30 04/13/19 25 04/13/2024 fluor oscop y (PROC ) No observ ation record ed. [address] [address], [place], [address], 04/15/2024 15:14:21 04/13/19 25 04/13/2024 XR, chest No observ ation record ed. [address] [address], [place], [address], 04/15/2024 15:14:29 04/14/19 25 04/14/2024 XR, chest No observ ation record ed. [address] [address], [place], [address], 04/15/2024 15:14:40 04/15/19 25 04/15/2024 XR, chest No observ ation record ed. [address] [address], [place], [address], 04/15/2024 08:12:12 04/16/19 25 04/16/2024 XR, chest No observ ation record ed. [address], [address], 04/16/2024 09:38:12 04/17/19 25 04/17/2024 XR, chest No observ ation record ed. [address], [address], 04/17/2024 10:39:20 04/18/19 25 04/18/2024 XR, chest No observ ation record ed. [address], [place], [address], 04/18/2024 07:54:10 04/18/19 25 04/18/2024 CT, brain , w/o contr ast No observ ation record ed. [address], [place], [address], 04/18/2024 13:48:45 06/17/1906/16/2024 CT, brain , w/o contr ast No observ ation record ed. [address] [address], [place], [address], 06/16/2024 09:35:11 06/17/1906/16/2024 CT, cervi kristy spine , w/o contr ast No observ ation record ed. [address], [place], [address], 06/16/2024 09:42:55 06/17/1906/16/2024 CT, lumba r spine , w/o contr ast No observ ation record ed. [address], [place], [address], 06/16/2024 12:20:40 06/17/1906/16/2024 XR, hip, unila teral No observ ation record ed. [address], [place], [address], 06/16/2024 12:21:13 06/17/19 25 06/16/2024 CT, abdom en + pelvi s, w/o contr ast No observ ation record ed. [address], [place], [address], 06/16/2024 13:28:00 Result Notes None recorded. Problems Name Problem SNOMED Code Status Onset Date Resolution Date Notes Provider Name and Address Organization Details Recorded Time Benign essential hypertensi on 8528164 Active Not Available [facility] 3 05:58:37 Abscess of breast 53228956 Active 2021 Not Available [facility] 3 05:58:37 Type 2 diabetes mellitus without complicati on 199930188 Active 2019 Not Available [facility] 3 05:58:37 History of polyp of colon 278674803 Active 2018 Not Available [facility] 3 05:58:37 Cellulitis of lower limb 737003428 Active 2021 Not Available [facility] 3 05:58:37 Atrial fibrillati on 31340795 Active Not Available [facility] 3 05:58:38 Obstructiv e sleep apnea syndrome 22287635 Active 2020 Not Available [facility] 3 05:58:38 Primary malignant neoplasm of endometriu m 14425640 Active 2018 Not Available [facility] 3 05:58:38 Obese class III 955528559 Active 2022 López Kirk MD [address], [place], [address] , 5minutes [facility] [employer] 3 16:53:29 Dystrophia unguium 21777843 Active 2022 Brodie Harrison DPM [address], [address], [place], [address] , [employer] [facility] [employer] [facility] 3 15:43:27 Metatarsal vanessa of right foot 6108335370235 00 Active 2022 Brodie Harrison DPM [address], [address], [place], [address] , [employer] [facility] [employer] 3 15:43:53 Localized, primary osteoarthr itis of the ankle and/or foot 225822569 Active 2022 Brodie Harrison DPM [address], [address], [place], [address] , [facility] 3 15:43:59 Hyperlipid emia 83218608 Active 2023 López Kirk MD [address], [address], [place], [address] , [facility] 4 17:16:47 Pruritic rash 98864296 Active 2023 López Kirk MD [address], [address], [place], [address] , [facility] 4 17:32:10 Tinea corporis 65450396 Active 2023 López Kirk MD [address], [address], [place], [address] , [facility] 4 17:32:38 Hammer toe 357910610 Active 2023 Brodie Harrison DPM [address], [address], [place], [address] , [facility] 4 17:09:11 Hyperglyce mindi 70480089 Active 2023 MERON Ocampo, [facility] 4 16:00:39 Metatarsal vanessa 79781470 Active 2023 Brodie Harrison DPM [address], [place], [address] , [facility] 4 16:01:24 Bilateral plantar fasciitis 0598166250161 9108 Active 2023 Brodie Harrison DPM [address], [address], [place], [address] , [facility] 4 15:44:02 Problem Notes None recorded. Procedures Surgical History Date Name Laterality Status Provider Name and Address Organization Details Recorded Time 01/11/20 24 Nail Debridement completed Brodie Harrison DPM [address], [address], [place], [address], [facility] [employer] [facility] 01/11/2024 15:43:51 10/12/19 24 Nail Debridement completed Brodie Harrison DPM [address], [place], [address], [facility] [employer] [facility] 10/12/2023 15:43:14 09/30/19 24 Chronic care management services completed Leobardo Herr RN [facility] [employer] [facility] 09/30/2023 11:23:48 08/25/19 24 Chronic care management services completed Leobardo Herr RN [facility] [employer] [facility] 08/25/2023 15:43:45 07/24/19 24 Chronic care management services completed Leobardo Herr RN [facility] [employer] [facility] 07/29/2023 13:23:59 07/09/19 24 Nail Debridement completed Brodie Harrison DPM [address], [place], [address], [facility] [employer] [facility] 07/09/2023 16:00:40 04/09/19 24 Nail Debridement completed Brodie Harrison DPM [address], [place], [address], [facility] [employer] [facility] 04/21/2023 09:22:18 03/18/19 24 Medicare Wellness CPT Code, subsequent completed Gena Ngo RN [facility] [employer] [facility] 03/18/2023 17:05:17 12/16/19 23 Nail Debridement completed Brodie Harrison DPM [address], [place], [address], [facility] [employer] [facility] 12/15/2022 15:43:16 01/01/20 21 Date of Last Colonoscopy completed Not Available [facility] 04/30/2022 05:53:31 Imaging Results Imaging Date Name Status LastModified by Organization Details LastModified Time 03/26/2024 XR, chest completed [email or web address] [facility] [address], [place], [address], 03/28/2024 15:19:08 03/27/2024 CT, chest, w/ contrast completed [address], [place], [address], 03/28/2024 16:50:40 03/27/2024 CT, brain, w/o contrast completed [address], [place], [address], 03/28/2024 16:51:02 03/28/2024 XR, chest, 1 view completed [address], [place], [address], 03/28/2024 08:26:46 03/28/2024 XR, chest completed [address], [place], [address], 04/15/2024 14:36:03 03/28/2024 XR, chest, 1 view completed [address] [address], [place], [address], 03/28/2024 17:27:34 03/28/2024 CT, brain, w/o contrast completed [address] [address], [place], [address], 03/29/2024 08:35:09 03/29/2024 XR, chest completed [address] [address], [place], [address], 03/29/2024 08:35:30 03/29/2024 gastrostomy tube management* completed [address], [place], [address], 03/29/2024 10:15:50 03/29/2024 US, echocardiogram completed [address], [place], [address], 03/29/2024 21:25:19 03/30/2024 XR, chest, 1 view completed [address], [place], [address], 03/30/2024 08:33:59 03/31/2024 XR, chest completed [address], [place], [address], 04/15/2024 14:36:13 03/31/2024 US, renal completed [address], [place], [address], 03/31/2024 17:02:03 03/31/2024 US, abdomen completed [address] [address], [place], [address], 03/31/2024 17:03:09 04/01/2024 XR, chest completed [address] [address], [place], [address], 04/01/2024 08:40:17 04/03/2024 XR, chest completed [address] [address], [place], [address], 04/03/2024 10:20:29 04/04/2024 XR, chest, 1 view completed [address] [address], [place], [address], 04/04/2024 08:54:02 04/05/2024 XR, chest completed [address] [address], [place], [address], 04/15/2024 15:09:58 04/06/2024 XR, chest, 1 view completed [address] [address], [place], [address], 04/06/2024 09:03:41 04/07/2024 XR, chest completed [address] [address], [place], [address], 04/15/2024 15:10:07 04/08/2024 XR, chest completed [address] [address], [place], [address], 04/15/2024 15:10:29 04/09/2024 XR, chest completed [address] [address], [place], [address], 04/09/2024 15:32:26 04/10/2024 XR, chest completed [address] [address], [place], [address], 04/15/2024 15:10:46 04/11/2024 XR, chest completed [address] [address], [place], [address], 04/15/2024 15:13:59 04/12/2024 XR, chest completed [address] [address], [place], [address], 04/12/2024 08:20:05 04/13/2024 XR, chest, 1 view completed [address] [address], [place], [address], 04/13/2024 08:08:30 04/13/2024 fluoroscopy (PROC) completed [address] [address], [place], [address], 04/15/2024 15:14:21 04/13/2024 XR, chest completed [address] [address], [place], [address], 04/15/2024 15:14:29 04/14/2024 XR, chest completed [address] [address], [place], [address], 04/15/2024 15:14:40 04/15/2024 XR, chest completed [address] [address], [place], [address], 04/15/2024 08:12:12 04/16/2024 XR, chest completed [address] [facility], [place], [address], 04/16/2024 09:38:12 04/17/2024 XR, chest completed [address] [facility], [place], [address], 04/17/2024 10:39:20 04/18/2024 XR, chest completed [address] [address], [place], [address], 04/18/2024 07:54:10 04/18/2024 CT, brain, w/o contrast completed [address] [address], [place], [address], 04/18/2024 13:48:45 06/16/2024 CT, brain, w/o contrast completed [address] [address], [place], [address], 06/16/2024 09:35:11 06/16/2024 CT, cervical spine, w/o contrast completed [address] [address], [place], [address], 06/16/2024 09:42:55 06/16/2024 CT, lumbar spine, w/o contrast completed [address] [address], [place], [address], 06/16/2024 12:20:40 06/16/2024 XR, hip, unilateral completed [address] [address], [place], [address], 06/16/2024 12:21:13 06/16/2024 CT, abdomen + pelvis, w/o contrast completed [address], [address], 06/16/2024 13:28:00 Procedure Notes None recorded. Medical Equipment None Reported. Allergies Allergen ID Allergen Name Allergen Category Reaction Reaction Severity Criticality Documentation Date Start Date Code Code System Note Provider Name and Address Organization Details Recorded Time 94600 lisinopri l medicatio n cough Not available Not available 04/30/2022 35431 RxNorm Not Available [facility] 3 06:05:25 09637 Diovan medicatio n cough Not available Not available 04/30/2022 89046 2 RxNorm Not Available [facility] 3 06:05:25 Medications Name Sig Start Date [...] Updated DateTime 4 177.8 cm 47.1 kg/m2 167469. 3 g 93 /min 97.5 [degF] 96 % 96 % 126 mm[Hg] 80 mm[Hg] NESHA Hoff [facility] [employer] [facility] 4 16:31:48 Date Recorded Body height Systolic blood pressure Diastolic blood pressure Provider Name and Address Organization Details Last Updated DateTime 09/30/2023 177.8 cm 126 mm[Hg] 80 mm[Hg] Leobardo Herr RN [facility] [employer] [facility] 09/30/2023 10:59:12 Date Recorded Body height Body mass index (BMI) Body weight Heart rate Respiratory rate Body temperature Oxygen saturation Oxygen saturation in Arterial blood by Pulse oximetry Systolic blood pressure Diastolic blood pressure Provider Name and Address Organization Details Last Updated DateTime 4 177.8 cm 47.1 kg/m2 739540. 3 g 68 /min 14 /min 97.6 [degF] 96 % 96 % 120 mm[Hg] 80 mm[Hg] Lucie Bustos [facility] [employer] [facility] 4 15:11:47 Date Recorded Body height Body mass index (BMI) Body weight Heart rate Respiratory rate Oxygen saturation Oxygen saturation in Arterial blood by Pulse oximetry Systolic blood pressure Diastolic blood pressure Provider Name and Address Organization Details Last Updated DateTime 4 177.8 cm 47.1 kg/m2 603076. 3 g 89 /min 14 /min 98 % 98 % 114 mm[Hg] 75 mm[Hg] Lorraine Fowler [facility] [employer] [facility] 4 14:59:55 Date Recorded Body height Body mass index (BMI) Body weight Heart rate Body temperature Oxygen saturation Oxygen saturation in Arterial blood by Pulse oximetry Systolic blood pressure Diastolic blood pressure Provider Name and Address Organization Details Last Updated DateTime 5 177.8 cm 45.8 kg/m2 299062. 97 g 76 /min 97 [degF] 96 % 96 % 140 mm[Hg] 100 mm[Hg] Kareen Joseph PA [employer] [facility] [employer] [facility] 5 16:47:50 Social History Question Answer Notes LastModified by Organization Details LastModified Time Tobacco Smoking Status Never Smoker Not Available [employer] 04/30/2022 05:52:58 Do You Have An Advance Directive? No Info Given MIGRATION.030 [id number] Information not available 04/30/2022 Are You Blind Or Do You Have Difficulty Seeing? No MIGRATION.0301 [id number] Information not available 04/30/2022 In The 14 [...] No Information not available 07/29/2023 Are You Deaf Or Do You Have Serious Difficulty Hearing? No MIGRATION.0301 [id number] Information not available 04/30/2022 What Type Of Diet Are You Following? REGULAR MIGRATION.030 294623 Information not available 04/30/2022 What Is The Highest Grade Or Level Of School You Have Completed Or The Highest Degree You Have Received? [id number] Information not available 07/29/2023 How Many Days [...] Family Or Social Situation? Yes Son's Divorce [email or web address] Information not available 03/18/2023 What Is The Fluoride Status Of Your Home? Unknown MIGRATION.0301 [id number] Information not available 04/30/2022 Are There Any Guns Present In Your Home? Yes MIGRATION.030 [id number] Information not available 04/30/2022 Do You Use Insect Repellent Routinely? Yes MIGRATION.030 058676 Information not available 04/30/2022 [facility] MIGRATION.0301 [id number] Information not available 04/30/2022 Guns Present In The Home? Yes [email or web address] Information not available 03/18/2023 Are You Able To Care For Yourself? Yes [email or web address] Information not available 03/18/2023 Are You Blind Or Do Yo Have Difficulty Seeing? No [email or web address] Information not available 03/18/2023 Are You Deaf Or Do You Have Serious Difficulty Hearing? No [email or web address] Information not available 03/18/2023 Live Alone Of With Others? With Others [email or web address] Information not available 03/18/2023 Do You Have A Medical Power Of Legal Counsel? No MIGRATION.0301 [id number] Information not available 04/30/2022 What Was The Date Of Your Most Recent Tobacco Screening? 03/18/2023 [email or web address] Information not available 03/18/2023 Do You Have Any Pets? No MIGRATION.0301 [id number] Information not available 04/30/2022 What Is Your Relationship Status? MIGRATION.0301 [id number] Information not available 04/30/2022 Do You Use Your Seat Belt Or Car Seat Routinely? Yes MIGRATION.0301 [id number] Information not available 04/30/2022 Are You Sexually Active? Yes Information not available 07/29/2023 Do You Have Smoke And Carbon Monoxide Detectors In Your Home? Yes MIGRATION.0301 [id number] Information not available 04/30/2022 Are You Passively Exposed To Smoke? No MIGRATION.0301 [id number] Information not available 04/30/2022 Are There Any Smokers In Your House? No MIGRATION.0301 [id number] Information not available 04/30/2022 Do You Use Sunscreen Routinely? Yes MIGRATION.0301 [id number] Information not available 04/30/2022 Have You Recently Traveled Abroad? No MIGRATION.0301 820359 Information not available 04/30/2022 Do You Have Difficulty Walking Or Climbing Stairs? No MIGRATION.0301 [id number] Information not available 04/30/2022 Do You Have Any Dietary Restrictions? No MIGRATION.0301 [id number] Information not available 04/30/2022 Sex: Female Functional Status Question Answer Note LastModified by Organizat ion Details LastModified Time What is your level of alcohol consumption? 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 No MIGRATION.09789 83848 Information not available 04/30/2022 Are you able to walk? YESWOREST sometimes uses a cane MIGRATION.26292 92648 Information not available 04/30/2022 Do you have difficulty doing errands alone? No MIGRATION.26332 54442 Information not available 04/30/2022 Are you able to care for yourself? 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 No MIGRATION.47074 90012 Information not available 04/30/2022 What is your exercise level? Occasional Information not available 07/29/2023 Mental Status Question Answer Note LastModified by Organizat ion Details LastModified Time Do you feel stressed (tense, restless, nervous, or anxious, or unable to sleep at night)? [id number] Information not available 07/29/2023 Do you have difficulty concentrating, remembering or making decisions? No MIGRATION.[id number] 26 Information not available 04/30/2022 Family History Relationship [...] in good health Medical History Condition Response BLINDNESS N NERVE DISEASE N RHEUMATIC FEVER N BLADDER PROBLEMS N KIDNEY STONES N MRSA N OTHER # 1 N [...] HAVE YOU BEEN HOSPITALIZED OR SEEN IN THE MEDICAL CENTER IN THE PAST YEAR ? [...] Details Recorded Time SARS-COV-2 (COVID-19) vaccine, UNSPECIFIED completed Not Available [facility] 04/30/2022 06:05:15 SARS-COV-2 (COVID-19) vaccine, UNSPECIFIED 1 completed Not Available [facility] 04/30/2022 06:05:15 pneumococcal polysaccharide PPV23 2 completed Not Available [facility] 04/30/2022 06:05:15 Influenza, high-dose, quadrivalent, PF 0 completed Not Available [facility] 04/30/2022 06:05:15 Pneumococcal conjugate PCV 13 0 completed Not Available [facility] 04/30/2022 06:05:16 Past Encounters Encounter ID Performer Location Encounter Start Date Encounter Closed Date Diagnosis/Indication Diagnosis SNOMED-CT Code Diagnosis ICD10 Code Diagnosis Note [id number] López Kirk MD [place] [place] [facility] [address] [address] 08/06/2020 00:00:00 08/06/2020 17:47:35 [id number] López Kirk MD [place] [place] [facility] [address] [address] 02/04/2021 00:00:00 02/04/2021 17:47:05 [id number] López Kirk MD [facility] [place] [facility] [address] [place] [address] [address] 08/28/2021 00:00:00 08/28/2021 17:09:13 [id number] López Kirk MD [facility] [place] [facility] [address] [place] [address] [address] 02/26/2022 00:00:00 02/26/2022 17:26:53 [id number] López Kirk MD S_[facility] [place] [address] [address] 09/10/2022 16:40:45 09/10/2022 17:01:27 Benign essential hypertension 5952094 I10 Type 2 carl betes mellitus without complication 979856511 E11.9 History of polyp of colon 767625927 Z86.010 Obese class III 96011703 5 E66.01 [id number] Brodie Harrison, KASEY [facility] [place] [address] [place] [address] 12/15/2022 15:04:11 12/15/2022 16:03:11 Type 2 diabetes mellitus without complication 270023004 E11.9 Continue diabetic care per PCP Dystrophia unguium 94155 009 L60.3 Nails 1 through 10 were debrided with sharp mechanical debridemen t without incident. Nails were debrided and greater than 50% length and thickness where needed. Metatarsal vanessa of right foot 2532092585 11709 M77.41 as above Localized, primary osteoarthritis of the ankle and/or foot 714974941 M19.079 dorsal midfootedu cated on shoe gear and orthoticsr ecommend Powerstep [facility] plus met [id number] López Kirk MD [facility] [place] [address] [facility] 24 [place] [address] 03/18/2023 16:49:28 03/18/2023 17:28:03 Adult health examination 257186469 Z00.00 Screening for disorder 468266694 Z13.9 Benign ess ential hypertension 5017817 I10 Atrial fibrillation 4943 6004 I48.91 Obstructiv e sleep apnea syndrome 74231741 G47.33 Type 2 carl betes mellitus without complication 210587025 E11.9 Hyperlipidemia 35828523 E78.5 Obese class III 59231900 5 E66.01 [id number] Brodie Harrison DPM [facility] Podiatry [place] [address] [facility] [address] [place] [address] 04/09/2023 16:55:16 04/21/2023 10:22:05 Dystrophia unguium 73508395 L60.3 Nails 1 through 10 were debrided with sharp mechanical debridemen t without incident. Nails were debrided and greater than 50% length and thickness where needed. Metatarsal vanessa of right foot 6096358599 21143 M77.41 improved with shoes and orthoticso nly occasional painpain mostly secondary to hammertoes denies surgery at this time Hammer toe 365093205 M20 .40 as aboveofflo ading and supportive shoe and orthotics [id number] Brodie Harrison DPM [facility] Podiatry [place] Villagran [address] [place] [address] 07/09/2023 15:28:45 07/09/2023 16:09:38 Dystrophia unguium 49432533 L60.3 Nails 1 through 10 were debrided with sharp mechanical debridemen t without incident. Nails were debrided and greater than 50% length and thickness where needed. Hammer toe 097945101 M20 .40 as aboveofflo ading and supportive shoe and orthotics Metatarsalgia 93350372 M 77.41 M77.42 recommend orthotics and supportive shoe geardiscus sed increased paddingfol low-up in 1-2 months [id number] López Kirk MD [facility] [address] [address] 07/24/2023 16:43:55 09/28/2023 10:15:06 Atrial fibrillation 32829236 I48.91 Not having any issues Hyperglycemia 95512398 R 73.9 does take Blood sugar at home Benign ess ential hypertension 1945501 I10 Takes BP 2-3 x/ mo [id number] López Kirk MD [facility] [address] [address] 08/25/2023 15:28:49 08/27/2023 11:53:25 Atrial fibrillation 06383687 I48.91 Benign ess ential hypertension 3459413 I10 Hyperlipidemia 61248884 E78.5 Hyperglycemia 28243700 R 73.9 [id number] López Kirk MD [facility] Internal Med [address] [address] 09/09/2023 16:24:45 09/09/2023 16:58:24 Benign essential hypertension 8558787 I10 Hyperlipidemia 89435085 E78.5 Type 2 carl betes mellitus without complication 436174810 E11.9 History of polyp of colon 512551266 Z86.010 Obese class III 30501289 5 E66.01 [id number] López Kirk MD [facility] [address] [address] 09/30/2023 10:54:42 10/05/2023 10:17:09 Atrial fibrillation 47388563 I48.91 Benign ess ential hypertension 7640956 I10 Hyperlipidemia 61933231 E78.5 Type 2 carl betes mellitus without complication 191987637 E11.9 Obstructiv e sleep apnea syndrome 65321291 G47.33 [id number] Brodie Harrison DPM [facility] Podiat[place] [address] [place] [address] 10/12/2023 14:49:42 10/13/2023 13:39:23 Metatarsalgia 68231636 M77.41 M77.42 Improved with Powerstep orthoticsC ontinue supportive shoe gearFollow -up as needed Hammer toe 777209053 M20 .40 as aboveofflo ading and supportive shoe and orthotics Dystrophia unguium 50748 009 L60.3 Nails 1 through 10 were debrided with sharp mechanical debridemen t without incident. Nails were debrided and greater than 50% length and thickness where needed. [id number] Brodie Harrison DPM [facility] Podiatry [place] [address] [place] [address] 01/11/2024 14:47:25 02/25/2024 15:39:57 Bilateral plantar fasciitis 2680440359 1861253 M72.2 stretching and icing instructio ns reviewedRe commend no strenuous activities Follow-up in 1 month Dystrophia unguium 90293 009 L60.3 Nails 1 through 10 were debrided with sharp mechanical debridemen t without incident. Nails were debrided and greater than 50% length and thickness where needed. Type 2 carl betes mellitus without complication 784863939 E11.9 Continue diabetic care per PCPfollow- up 3 months [id number] López Kirk MD [facility] [place] [address] [facility] [place] [address] [place] [address] 03/16/2024 16:31:30 03/16/2024 17:17:53 Benign essential hypertension 9585337 I10 Atrial fibrillation 4943 6004 I48.91 Hyperlipidemia 59319187 E78.5 Type 2 carl betes mellitus without complication 938641640 E11.9 Obese class III 95431163 5 E66.01 Goals Section Goal Description Progress Status Start Date LastModified by Organization Details LastModified Time Heart Healthy Diet Maintain a low sodium and low fat diet, restricting artificial sweetener use [facility] active 2023 Leobardo Herr RN Information not available 08/25/2023 19:24:56 Exercise Regularly Follows a regular exercise regimen or instructed exercise plan as per care team recommendation ([facility]) [facility] Leobardo Herr RN Information not [...] pressure at least weekly and pulse daily [facility] active 2023 Leobardo Herr RN Information not available 07/29/2023 17:05:17 Blood Glucose Maintains blood glucose within target range [facility] active 2023 Leobardo Herr RN Information not available 09/30/2023 15:18:51 Food Security Reports ability to access and obtain foods to meet nutritional needs [facility] active 2023 Leobardo Herr RN Information not available 08/25/2023 19:26:31 Exercise Regularly Follows a regular exercise regimen or instructed exercise plan as per care team recommendation (s) [facility] Leobardo Herr RN Information not available 09/30/2023 15:18:51 Follow-up Appointmen t(s) Attends referral and/or follow-up appointment(s) as per care team recommendation (s) [facility] active 2023 Leobardo Herr RN Information not available 09/30/2023 15:19:36 Smoking Cessation Quits smoking [facility] active 2023 Leobardo Herr RN Information not available 08/25/2023 19:26:31 Activities of Daily Living Performs activities of daily living independently or with minimal assistance [facility] Leobardo Herr RN Information not available 08/25/2023 19:26:31 Medication Regimen Follows medication regimen as per care team recommendation (s) [facility] Leobardo Herr RN Information not available 09/30/2023 15:18:51 Decreased Alcohol Consumptio n Reports decreased alcohol consumption as per care team recommendation (s) [facility] active 2023 Leobardo Herr RN Information not available 08/25/2023 19:26:32 Stroke/TIA Risk Reduction Reduces risk factors for [facility] Leobardo Herr RN Information not available 08/25/2023 19:26:32 Effective Coping Manages life events with effective coping methods [facility] active 2023 Leobardo Herr RN Information not available 08/25/2023 19:26:32 Chronic Disease Symptom Management Reports no new or worsening symptoms [facility] Leobardo Herr RN Information not available 09/30/2023 15:19:36 Vaccinatio n Status Remains up to date on vaccines as per care team recommendation (s) [facility] active 2023 Leobardo Herr RN Information not available 08/25/2023 19:26:32 Heart Rate Control Achieves target heart rate as defined by care team [facility] active 2023 Leobardo Herr RN Information not available 08/25/2023 19:26:32 Diet Adherence Follows prescribed or recommended diet [facility] active 2023 Leobardo Herr RN Information not available 09/30/2023 15:18:51 Fall Safety Reports no recent falls and/or fall injuries [facility] Leobardo Herr RN Information not available 08/25/2023 19:26:33 Knowledge of Disease or Condition Demonstrates understanding of disease(s) or condition(s) [facility] active 2023 Leobardo Herr RN Information not available 09/30/2023 15:19:36 Financial Stability Reports financial status and/or income meets needs [facility] active 2023 Leobardo Herr RN Information not available 08/25/2023 19:26:33 Chronic Condition Action Plan Follows action plan for any worsening of chronic condition(s) as per care team recommendation (s) [facility] active 2023 Leobardo Herr RN Information not available 09/30/2023 15:19:36 Lipid Levels Maintains normal lipid levels as defined by care team [facility] active 2023 Leobardo Herr RN Information not available 08/25/2023 19:26:33 Weight Mainpatricia e Exhibits stable weight with normal fluctuation [facility] active 2023 Leobardo Herr RN Information [...] 09/09/2023 1 [place] Yulia A Mangi [id number] Yulia A Mangi 09/09/2023 2 [employer] (MEDICARE SUPPLEMENT) Yulia A Mangi [id number] Yulia A Mangi 09/30/2023 1 [place] Yulia A Mangi [id number] Yulia A Mangi 09/30/2023 2 [employer] (MEDICARE SUPPLEMENT) Yulia A Mangi [id number] Yulia A Mangi 10/12/2023 1 [place] Yulia A Mangi [id number] Yulia A Mangi 10/12/2023 2 [employer] (MEDICARE SUPPLEMENT) Yulia A Mangi [id number] Yulia A Mangi 01/11/2024 1 [place] Yulia A Mangi [id number] 5 Yulia A Mangi 01/11/2024 2 [employer] (MEDICARE SUPPLEMENT) Yulia A Mangi [id number] Yulia A Mangi 03/16/2024 1 [place] Yulia A Mangi [id number] 5 Yulia A Mangi 03/16/2024 2 [employer] (MEDICARE SUPPLEMENT) Yulia A Mangi [id number] Yulia A Mangi Notes Date Note Type [...] Systemic Symptoms:none Medication Reconciliation: from medication list. Jruayygkynr50/03/2023: Venous Doppler lower extremities no evidence of [...] non healing lesions. [facility]: 6.4 Calculated MB mg%. Average blood [...] Hx of obesity. Currently Class 3 Obesity MT > 40. Has tried numerous dietary support [...] offered to be evaluated and instructed by firmware manager on weight loss diet. Active Medication ListAspirin [...] Reactions ReviewedLisinopril CoughDiovan CoughNorvasc Palpitations Vaccination and Ftxauvpvuixc7488-07 Scakwyawz9594-78 Covid Lywnvf4537-70 Prevnar 13 Zj2774-09 Influenza Surgical Hygzcob1903-98 Ultrasound Guided Biopsy Rt. Urveco4421-53 Robotic BXR5351-79 Lap Onbgyruwpdolmpa4726-36 C-Ovmrutr4149-69 A-Yylgvoq8590-03 Preventative Pdckrvh2907/01/2023 HAIC 6.4 % OF TOTAL HGB H003/30/2023 [...] 0.50-1.05 MG/DLEGFR 82 > OR = 60 ML/MIN/1.39E0USXNUVHAJ, TOTAL 0.6 0.2-1.2 MG/DLALKALINE PHOSPHATASE 57 37-153 U/LAST 10 10-35 U/LALT 13 6-29 U/L López Kirk MD [address], [address], [place], [address], [employer] 09/09/2023 16:56:09 4 text/html Pt doing well and has no complaints other than back pain, as she is going to chiropractor López Kirk MD [address], [place], [address], [employer] 09/30/2023 11:24:06 4 text/html . Patient is [...] other complaints. Brodie Harrison DPM [address], [place], [place], [address], [employer] 10/12/2023 15:44:05 4 text/html . Patient is [...] any other complaints. Brodie Harrison DPM [address] [facility], [place], [place], [address], [place] [facility] 01/11/2024 15:44:52 5 text/html Patient Name: Yulia [...] Systemic Symptoms:none Medication Reconciliation: from medication list. Whabaudvokw62/03/2023: Venous Doppler lower extremities no evidence of [...] Metoprolol Tartrate. Rate control: rapid ventricular response [id number] Criteria: hypertension, Age 65-74 and Diabetes for [...] Hx of obesity. Currently Class 3 Obesity MT > 40. Has tried numerous dietary support [...] offered to be evaluated and instructed by firmware manager on weight loss diet. Active Medication ListHyzaar [...] CoughNorvasc Palpitations Vaccination and Immunization(X) 2007- INFLUENZA(X) 2020-04 COVID PFIZER( ) 2019- PREVNAR 13 GC( ) 2021-07 PNEUMOVAX Surgical Xrjkiab1784-40 Ultrasound Guided Biopsy Rt. Xbpwxk6340-47 Robotic FMC9422-88 Lap Irhpqvajmbinycy0798-84 L-Vqxtwtz7223-49 J-Axcpwgy0553-77 Preventative Testing( ) 02/01/2024 Albumin 3.7 G/DL( [...] Date: 02/01/2024MAGNESIUM 1.9 1.6-2.3 MG/DLNT-PRO BNP Date: 12/02/2024NT-PRO BNP 1470 0-221 PG/MLT3 TOTAL Date: 02/01/2024T3, TOTAL 1.190 0.970-1.690 NG/MLT4 FREE Date: 02/01/2024FREE T4 0.91 0.78-2.19 NG/DLTSH Date: 02/01/2024THYROID-STIMULA TING HORMONE 2.880 0.465-4.680 UIU/ML López Kirk MD [address] [facility], [facility], [place], [address], [place] [facility] 03/16/2024 17:15:18 OBGyn Episode No OBEpisode recorded.
--- OUTSIDE RECORDS SUMMARY | 2024-07-20 10:09 | XMS_ITS ---
Author Organization [facility] Address [address] [place] [address] Care Team Providers Care Circus Rider Name Role Phone Walt Kirk MD Primary Care Provider Venu Leon MD Unavailable [phone] Active Problems Problem Noted Date Diagnosed Date [...] (07/30/2018): Added automatically from request for surgery [id number] Essential hypertension 07/30/2018 Morbid obesity 07/30/2018 Diabetes [...]
--- OUTSIDE RECORDS SUMMARY | 2024-07-20 10:09 | XMS_ITS | Clinical Summary ---
Author Organization [facility] Address [address] [place] [address] Care Team Providers Care Assembly Associate Name Role Phone Walt Kirk MD Primary Care Provider [phone] Allergies Active Allergy Reactions Criticality Noted Date [...] Department Care Team Description 04/18/2024 9:20 PM SECURITIES TELLER - 05/16/2024 2:33 PM CDT Hospital Encounter [place] [id number] [place] [address] You Arana MD Acute kidney failure, not otherwise specified (Primary Dx) Discharge Disposition: Disc/Trans to another REHAB FAC /DIS PA from Last 3 Months Social History Tobacco Use Types Packs/Day Years Used Date Smoking Tobacco: Never Assessed [facility] Utilities Answer Date Recorded In the past 12 months has [employer] electric, gas, oil, or water [employer] threatened to shut off services in your [...] often do you attend chur ch or rastafari services? 1 to 4 times per year 04/21/2024 Do you belong to any clubs o r organizations such as muslim groups, unions, fraternal or athletic groups, or [...] and heating? Not hard at all 04/21/2024 [facility] [place] [facility] Occup[facility] - Occupational Stress [...] any time in the past 12 m [facility], were you homeless or living in a snf (including now)? No 04/21/2024 Domestic Abuse Assessment Answer Date R ecorded Do you feel safe in your relationships at home? Yes 04/26/2024 Physical Abuse Denies 04/26/2024 [facility] - Type of Abuse Not on file 04/26/2024 HRSN Domestic Abuse - Time Frame Not on file 04/26/2024 HRSN Domestic Abuse - Signs and Symptoms Not on file 04/26/2024 Verbal Abuse Denies 04/26/2024 HRSN Domestic Abuse - Reported To Not on file 04/26/2024 [facility] Transportation Source Answer Da te Recorded [...] cm (5' 10 ) 04/18/2024 3:36 PM SECURITIES TELLER Body Mass Index 46.5 04/18/2024 3:36 PM SECURITIES TELLER Plan of Treatment Not on file Procedures [...] CDT POCT GLUCOSE Routine 05/07/2024 9:00 PM SECURITIES TELLER POCT GLUCOSE Routine 05/07/2024 4:27 PM SECURITIES TELLER POCT GLUCOSE Routine 05/07/2024 11:20 AM SECURITIES TELLER POCT GLUCOSE Routine 05/07/2024 8:34 AM SECURITIES TELLER BASIC METABOLIC PANEL Routine 05/07/2024 4:00 AM SECURITIES TELLER RENAL FUNCTION PANEL Routine 05/07/2024 4:00 AM SECURITIES TELLER POCT GLUCOSE Routine 05/06/2024 9:14 PM SECURITIES TELLER POCT GLUCOSE Routine 05/06/2024 5:00 PM SECURITIES TELLER POCT GLUCOSE Routine 05/06/2024 12:02 PM SECURITIES TELLER POCT GLUCOSE Routine 05/06/2024 7:44 AM SECURITIES TELLER POCT GLUCOSE Routine 05/05/2024 9:35 PM SECURITIES TELLER POCT GLUCOSE Routine 05/05/2024 4:32 PM SECURITIES TELLER POCT GLUCOSE Routine 05/05/2024 10:21 AM SECURITIES TELLER POCT GLUCOSE Routine 05/05/2024 7:50 AM SECURITIES TELLER POCT GLUCOSE Routine 05/05/2024 3:50 AM SECURITIES TELLER POCT GLUCOSE Routine 05/04/2024 9:50 PM SECURITIES TELLER POCT GLUCOSE Routine 05/04/2024 4:15 PM SECURITIES TELLER POCT GLUCOSE Routine 05/04/2024 12:03 PM SECURITIES TELLER POCT GLUCOSE Routine 05/04/2024 7:35 AM SECURITIES TELLER RENAL FUNCTION PANEL Routine 05/04/2024 4:17 AM SECURITIES TELLER POCT GLUCOSE Routine 05/03/2024 9:48 PM SECURITIES TELLER POCT GLUCOSE Routine 05/03/2024 5:17 PM SECURITIES TELLER MRI BRAIN W/O CONTRAST Routine 3:02 PM SECURITIES TELLER POCT GLUCOSE Routine 05/03/2024 12:32 PM SECURITIES TELLER POCT GLUCOSE Routine 05/03/2024 8:00 AM SECURITIES TELLER RENAL FUNCTION PANEL Routine 05/03/2024 4:00 AM SECURITIES TELLER PT/PTT Routine 05/03/2024 4:00 AM SECURITIES TELLER CBC Routine 05/03/2024 4:00 AM SECURITIES TELLER POCT GLUCOSE Routine 05/02/2024 10:18 PM SECURITIES TELLER POCT GLUCOSE Routine 05/02/2024 4:43 PM SECURITIES TELLER POCT GLUCOSE Routine 05/02/2024 11:52 AM SECURITIES TELLER POCT GLUCOSE Routine 05/02/2024 5:19 AM SECURITIES TELLER POCT GLUCOSE Routine 05/01/2024 11:24 PM SECURITIES TELLER POCT GLUCOSE Routine 05/01/2024 6:16 PM SECURITIES TELLER POCT GLUCOSE Routine 05/01/2024 11:51 AM SECURITIES TELLER POCT GLUCOSE Routine 05/01/2024 5:26 AM SECURITIES TELLER POCT GLUCOSE Routine 04/30/2024 11:39 PM SECURITIES TELLER POCT GLUCOSE Routine 04/30/2024 5:18 PM SECURITIES TELLER POCT GLUCOSE Routine 04/30/2024 12:31 PM SECURITIES TELLER POCT GLUCOSE Routine 04/30/2024 5:46 AM SECURITIES TELLER POCT GLUCOSE Routine 04/29/2024 11:41 PM SECURITIES TELLER POCT GLUCOSE Routine 04/29/2024 5:26 PM SECURITIES TELLER POCT GLUCOSE Routine 04/29/2024 12:43 PM SECURITIES TELLER MODIFIED BARIUM SWALLOW STUDY Routine 04/29/2024 10:53 AM SECURITIES TELLER POCT GLUCOSE Routine 04/29/2024 10:32 AM SECURITIES TELLER POCT GLUCOSE Routine 04/29/2024 5:00 AM SECURITIES TELLER POCT GLUCOSE Routine 04/28/2024 11:53 PM SECURITIES TELLER POCT GLUCOSE Routine 04/28/2024 6:49 PM SECURITIES TELLER PULSE OXIMETRY, CONTINUOUS Routine 04/28/2024 3:30 PM SECURITIES TELLER XR CHEST 1 VW Routine 04/28/2024 2:05 PM SECURITIES TELLER DECANNULATE TRACH TUBE Routine 1:52 PM SECURITIES TELLER POCT GLUCOSE Routine 04/28/2024 12:29 PM SECURITIES TELLER POCT GLUCOSE Routine 04/28/2024 5:21 AM SECURITIES TELLER BLOOD GAS, ARTERIAL (POCT) Routine 04/28/2024 4:56 AM SECURITIES TELLER RENAL FUNCTION PANEL Routine 04/28/2024 4:00 AM SECURITIES TELLER POCT GLUCOSE Routine 04/27/2024 11:23 PM SECURITIES TELLER POCT GLUCOSE Routine 04/27/2024 6:09 PM SECURITIES TELLER ROUTINE TRACHEOSTOMY CARE Routine 04/27/2024 8:01 AM SECURITIES TELLER PULSE OXIMETRY, CONTINUOUS Routine 04/27/2024 8:01 AM SECURITIES TELLER POCT GLUCOSE Routine 04/27/2024 5:17 AM SECURITIES TELLER POCT GLUCOSE Routine 04/26/2024 11:39 PM SECURITIES TELLER ROUTINE TRACHEOSTOMY CARE Routine 04/26/2024 8:01 PM SECURITIES TELLER PULSE OXIMETRY, CONTINUOUS Routine 04/26/2024 8:01 PM SECURITIES TELLER POCT GLUCOSE Routine 04/26/2024 6:08 PM SECURITIES TELLER DECANNULATE TRACH TUBE Routine 10:26 AM SECURITIES TELLER ROUTINE TRACHEOSTOMY CARE Routine 04/26/2024 8:01 AM SECURITIES TELLER PULSE OXIMETRY, CONTINUOUS Routine 04/26/2024 8:01 AM SECURITIES TELLER POCT GLUCOSE Routine 04/26/2024 5:58 AM SECURITIES TELLER ROUTINE TRACHEOSTOMY CARE Routine 04/25/2024 8:01 PM SECURITIES TELLER PULSE OXIMETRY, CONTINUOUS Routine 04/25/2024 8:01 PM SECURITIES TELLER POCT GLUCOSE Routine 04/25/2024 5:[address] CHEST WO CONTRAST Routine 04/25/2024 3:55 PM SECURITIES TELLER TRACHEOSTOMY TUBE CHANGE Routine 04/25/2024 12:41 PM SECURITIES TELLER POCT GLUCOSE Routine 04/25/2024 11:22 AM SECURITIES TELLER PROTEIN, URINE, 24 HOUR Routine 04/25/2024 10:36 AM SECURITIES TELLER CREATININE CLEARANCE, URINE, 24 HOUR Routine 04/25/2024 10:36 AM SECURITIES TELLER SODIUM, URINE, RANDOM Routine 04/25/2024 10:36 AM SECURITIES TELLER URINE PROTEIN/CREATININE RATIO Routine 04/25/2024 10:36 AM SECURITIES TELLER CHLORIDE, URINE, RANDOM Routine 04/25/2024 10:36 AM SECURITIES TELLER ROUTINE TRACHEOSTOMY CARE Routine 04/25/2024 9:33 AM SECURITIES TELLER ROUTINE TRACHEOSTOMY CARE Routine 04/25/2024 9:33 AM SECURITIES TELLER VENTILATOR Routine 04/25/2024 8:01 AM SECURITIES TELLER PULSE OXIMETRY, CONTINUOUS Routine 04/25/2024 8:01 AM SECURITIES TELLER POCT GLUCOSE Routine 04/25/2024 5:25 AM SECURITIES TELLER BLOOD GAS, ARTERIAL (POCT) Routine 04/25/2024 5:20 AM SECURITIES TELLER VENTILATOR Routine 04/25/2024 5:00 AM SECURITIES TELLER PHOSPHORUS Routine 04/25/2024 3:36 AM SECURITIES TELLER COMPREHENSIVE METABOLIC PANEL Routine 04/25/2024 3:36 AM SECURITIES TELLER CBC Routine 04/25/2024 3:36 AM SECURITIES TELLER XR CHEST 1 VW Routine 04/25/2024 3:34 AM SECURITIES TELLER VENTILATOR Routine 04/25/2024 2:00 AM SECURITIES TELLER POCT GLUCOSE Routine 04/24/2024 11:41 PM SECURITIES TELLER VENTILATOR Routine 04/24/2024 11:02 PM SECURITIES TELLER VENTILATOR Routine 04/24/2024 8:01 PM SECURITIES TELLER PULSE OXIMETRY, CONTINUOUS Routine 04/24/2024 8:01 PM SECURITIES TELLER POCT GLUCOSE Routine 04/24/2024 6:27 PM SECURITIES TELLER VENTILATOR Routine 04/24/2024 5:00 PM SECURITIES TELLER VENTILATOR Routine 04/24/2024 2:00 PM SECURITIES TELLER POCT GLUCOSE Routine 04/24/2024 12:18 PM SECURITIES TELLER VENTILATOR Routine 04/24/2024 11:00 AM SECURITIES TELLER ROUTINE TRACHEOSTOMY CARE Routine 04/24/2024 8:01 AM SECURITIES TELLER VENTILATOR Routine 04/24/2024 8:01 AM SECURITIES TELLER PULSE OXIMETRY, CONTINUOUS Routine 04/24/2024 8:01 AM SECURITIES TELLER POCT GLUCOSE Routine 04/24/2024 5:27 AM SECURITIES TELLER VENTILATOR Routine 04/24/2024 5:00 AM SECURITIES TELLER VENTILATOR Routine 04/24/2024 2:00 AM SECURITIES TELLER POCT GLUCOSE Routine 04/24/2024 12:07 AM SECURITIES TELLER VENTILATOR Routine 04/23/2024 11:01 PM SECURITIES TELLER ROUTINE TRACHEOSTOMY CARE Routine 04/23/2024 8:01 PM SECURITIES TELLER VENTILATOR Routine 04/23/2024 8:01 PM SECURITIES TELLER PULSE OXIMETRY, CONTINUOUS Routine 04/23/2024 8:01 PM SECURITIES TELLER POCT GLUCOSE Routine 04/23/2024 5:47 PM SECURITIES TELLER VENTILATOR Routine 04/23/2024 5:00 PM SECURITIES TELLER VENTILATOR Routine 04/23/2024 2:00 PM SECURITIES TELLER POCT GLUCOSE Routine 04/23/2024 11:52 AM SECURITIES TELLER VENTILATOR Routine 04/23/2024 11:00 AM SECURITIES TELLER ROUTINE TRACHEOSTOMY CARE Routine 04/23/2024 8:01 AM SECURITIES TELLER VENTILATOR Routine 04/23/2024 8:01 AM SECURITIES TELLER PULSE OXIMETRY, CONTINUOUS Routine 04/23/2024 8:01 AM SECURITIES TELLER POCT GLUCOSE Routine 04/23/2024 5:44 AM SECURITIES TELLER VENTILATOR Routine 04/23/2024 5:00 AM SECURITIES TELLER VENTILATOR Routine 04/23/2024 2:00 AM SECURITIES TELLER VENTILATOR Routine 04/22/2024 11:01 PM SECURITIES TELLER POCT GLUCOSE Routine 04/22/2024 10:45 PM SECURITIES TELLER ROUTINE TRACHEOSTOMY CARE Routine 04/22/2024 8:01 PM SECURITIES TELLER VENTILATOR Routine 04/22/2024 8:01 PM SECURITIES TELLER PULSE OXIMETRY, CONTINUOUS Routine 04/22/2024 8:01 PM SECURITIES TELLER POCT GLUCOSE Routine 04/22/2024 6:07 PM SECURITIES TELLER VENTILATOR Routine 04/22/2024 5:00 PM SECURITIES TELLER VENTILATOR Routine 04/22/2024 2:00 PM SECURITIES TELLER POCT GLUCOSE Routine 04/22/2024 12:16 PM SECURITIES TELLER VENTILATOR Routine 04/22/2024 11:00 AM SECURITIES TELLER ROUTINE TRACHEOSTOMY CARE Routine 04/22/2024 8:01 AM SECURITIES TELLER VENTILATOR Routine 04/22/2024 8:01 AM SECURITIES TELLER PULSE OXIMETRY, CONTINUOUS Routine 04/22/2024 8:01 AM SECURITIES TELLER POCT GLUCOSE Routine 04/22/2024 5:58 AM SECURITIES TELLER VENTILATOR Routine 04/22/2024 5:00 AM SECURITIES TELLER CBC Routine 04/22/2024 3:27 AM SECURITIES TELLER RENAL FUNCTION PANEL Routine 04/22/2024 3:27 AM SECURITIES TELLER VENTILATOR Routine 04/22/2024 2:00 AM SECURITIES TELLER POCT GLUCOSE Routine 04/22/2024 12:11 AM SECURITIES TELLER VENTILATOR Routine 04/21/2024 11:02 PM SECURITIES TELLER from Last 3 Months Results * POCT glucose (05/16/2024 12:03 PM CDT) Only the most recent of98 resultswithin the time period is included. Glucose Blood, POC 101 70 - 120 mg/dL PATSY Blood 05/16/2024 12:0 3 PM CDT 05/16/2024 12:03 PM CDT You Arana MD LAB POINT OF CARE TEST ORDER MARISLE Final Result PATSY * (ABNORMAL) Renal Function Panel (05/16/2024 4:00 AM CDT) Only the most recent of11 resultswithin the time period is included. Glucose mg/dL Blood 123(H) 70 - 99 mg/dL SM [facility] Sodium mmol/L Blood 145 136 - 145 mmol/L [facility] Potassium mmol/L Blood 3.9 3.5 - 5.1 mmol/L [facility] Chloride 106 98 - 107 mmol/L [facility] CO2 29 22 - 29 mmol/L [facility] Calcium mg/dL Blood 8.7 8.4 - 10.4 mg/dL [facility] Anion Gap Blood 10 6 - 16 mmol/L [facility] Bun mg/dL Blood 36(H) 7 - 26 mg/dL [facility] Creatinine 1.10 0.57 - 1.11 mg/dL [facility] Albumin gm/dL Blood 2.4(L) 3.4 - 5.0 gm/dL [facility] Phosphorus mg/dL Blood 3.4 2.5 - 4.5 mg/dL [facility] EGFRCR CKD-EPI 54(L) >=90 mL/min/1.7 3 m2 [facility] Blood (Blood, Venous) 05/16/2024 4:00 AM CDT 05/16/2024 5:14 AM CDT us Oswaldo Page MD LAB BLOOD ORDERABLES Final Resul t [facility] [address] [place] [address] * (ABNORMAL) CBC (05/16/2024 4:00 AM CDT) Only the most recent of6 resultswithin the time period is included. WBC 9.4 4.0 - 10.7 x10E9/L [facility] RBC 3.72(L) 3.90 - 5.20 x10E12/L [facility] HGB gm/dL Blood 11.7(L) 11.9 - 15.8 g/dL [facility] Hematocrit 36.4 34.8 - 46.1 % [facility] MCV 97.8 80.0 - 98.0 fL [facility] MCH 31.5 26.7 - 33.6 pg [facility] MCHC 32.1 31.7 - 36.3 g/dL [facility] RDW-CV 17.0(H) 11.3 - 14.8 % [facility] Platelet count 236 150 - 420 x10E9/L [facility] MPV 9.0 7.8 - 11.4 fL [facility] Blood (Blood, Venous) 05/16/2024 4:00 AM CDT 05/16/2024 5:14 AM CDT Oswaldo Page MD LAB BLOOD ORDERABLES Final Resul t Performing Organization Address [facility] [place] [facility] de Phone Number [facility] [address] [place] [address] * (ABNORMAL) Urine protein/creatinine ratio (05/12/2024 11:39 AM CDT) Only the most recent of2 resultswithin the time period is included. Protein Urine mg/dL 129.4(H) <11.9 mg/dL [facility] Creatinine Urine mg/dL 52.73 mg/dL [facility] Protein/Creati nine Ratio Urine 2.45 [facility] Urine (Urine, Catheter) 05/12/2024 11:39 AM CDT 05/12/2024 11:51 AM CDT us Oswaldo Page MD LAB URINE ORDERABLES Final Resul t Performing Organization Address [facility] de Phone Number [facility] [address] [place] [address] * Sodium, urine, random (05/12/2024 11:39 AM CDT) Only the most recent of2 resultswithin the time period is included. Sodium Urine mmol/L 44 mmol/L [facility] Urine (Urine, Catheter) 05/12/2024 11:39 AM CDT 05/12/2024 11:51 AM CDT us Oswaldo Page MD LAB URINE ORDERABLES Final Resul t Performing Organization Address [facility] de Phone Number [facility] [address] [place] [address] * Chloride, urine, random (05/12/2024 11:39 AM CDT) Only the most recent of2 resultswithin the time period is included. Chloride Urine mmol/L 51.0 mmol/L [facility] Urine (Urine, Catheter) 05/12/2024 11:39 AM CDT 05/12/2024 11:51 AM CDT us Oswaldo Page MD LAB URINE ORDERABLES Final Resul t Performing Organization Address [facility] Co de Phone Number [facility] [address] [place] [address] * (ABNORMAL) Basic metabolic panel (05/07/2024 4:00 AM SECURITIES TELLER) Glucose mg/dL Blood 108(H) 70 - 99 mg/dL [facility] Sodium mmol/L Blood 142 136 - 145 mmol/L [facility] Potassium mmol/L Blood 4.1 3.5 - 5.1 mmol/L [facility] Chloride 100 98 - 107 mmol/L [facility] CO2 33(H) 22 - 29 mmol/L [facility] Calcium mg/dL Blood 8.2(L) 8.4 - 10.4 mg/dL [facility] Anion Gap Blood 9 6 - 16 mmol/L [facility] Bun mg/dL Blood 47(H) 7 - 26 mg/dL [facility] Creatinine 1.08 0.57 - 1.11 mg/dL [facility] EGFRCR CKD-EPI 55(L) >=90 mL/min/1.7 3 m2 [facility] Blood (Blood, Venous) 05/07/2024 4:00 AM SECURITIES TELLER 05/08/2024 4:46 AM CDT Tamar Morales NP LAB BLOOD ORDERABLES Fi nal Result Performing Organization Address [facility] [place] [facility] Co de Phone Number [facility] [address] [place] [address] * MRI brain WO contrast (05/03/2024 3:02 PM SECURITIES TELLER) Anatomical Region Laterality Modality Head and Neck Magnetic Resonan ce Impressions 05/03/2024 3:28 PM SECURITIES TELLER IMPRESSION: IMPRESSION: Involutional changes. Mostly subcortical small vessel ischemic disease. No intracranial bleed or evidence of acute ischemic process. Paranasal sinuses disease. > Interpreting Provider: Ladi Malik MD on 05/03/2024 3:28 PM Narrative 05/03/2024 3:28 PM SECURITIES TELLER NARRATIVE: PROCEDURE: MRI BRAIN WO CONTRAST, DATE/TIME [...] Ladi Malik MD on 05/03/2024 3:28 PM us Jose Luis Patel MD IMG MRI ORDERABLES Final Result * (ABNORMAL) PT/PTT (05/03/2024 4:00 AM SECURITIES TELLER) PT Seconds Blood 15.4(H) 12.1 - 14.8 sec [facility] INR 1.2(H) 0.9 - 1.1 [facility] PTT Seconds Blood 24.3 23.0 - 38.4 sec [facility] Blood (Blood, Venous) 05/03/2024 4:00 AM SECURITIES TELLER 05/03/2024 4:52 AM SECURITIES TELLER Narrative [facility] - 05/03/2024 5:16 AM SECURITIES TELLER Conventional Warfarin Anticoagulant Therapy: INR Reference Range: 2.0-3.0 Intensive Warfarin Anticoagulant Therapy: INR Reference Range: 2.5-3.5 Heparin Therapeutic Range for PTT: 69.0 - 110.0 seconds. us Oswaldo Page MD LAB BLOOD ORDERABLES Final Resul t [facility] [address] [place] [address] * Modified barium swallow study (04/29/2024 10:53 AM SECURITIES TELLER) Anatomical Region Laterality Modality Computed Radiogr aphy Impressions 04/29/2024 11:33 AM SECURITIES TELLER IMPRESSION: IMPRESSION: Modified barium swallow fluoroscopy as described. Please see detailed report from speech pathology staff. > Interpreting Provider: Blake Orta MD on 04/29/2024 11:33 AM Narrative 04/29/2024 11:33 AM SECURITIES TELLER NARRATIVE: MODIFIED BARIUM SWALLOW WITH SPEECH EVALUATION [...] Thin liquid: Reverting penetration but no aspiration. Spickard thickness: No penetration or aspiration. Honey thickness: [...] Thin liquid: Reverting penetration but no aspiration. Spickard thickness: No penetration or aspiration. Honey thickness: No penetration or aspiration. Pudding thickness: No penetration or aspiration. Solid cookie product: No penetration or aspiration. IMPRESSION: IMPRESSION: IMPRESSION: Modified barium swallow fluoroscopy as described. Please see detailed report from speech pathology staff. > Interpreting Provider: Blake Orta MD on 04/29/2024 11:33 AM us You Arana MD IMG DIAGNOSTIC IMAGING ORDER MARISEL Final Result * XR chest 1 vws (04/28/2024 2:05 PM SECURITIES TELLER) Only the most recent of2 resultswithin the time period is included. Anatomical Region Laterality Modality Body Computed Radiogr aphy Impressions 04/28/2024 2:33 PM SECURITIES TELLER IMPRESSION: IMPRESSION: Persistent atelectasis within the right lung base but slight improved aeration compared to the prior. > Interpreting Provider: Jane Shaw MD on 04/28/2024 2:33 PM Narrative 04/28/2024 2:33 PM SECURITIES TELLER NARRATIVE: PROCEDURE: XR CHEST 1VW PORTABLE DATE/TIME [...] on 04/28/2024 2:33 PM Tiago Armstrong MD [facility] DIAGNOSTIC IMAGING ORDER MARISEL Final Result * (ABNORMAL) Blood gas, arterial (04/28/2024 4:56 AM SECURITIES TELLER) Only the most recent of2 resultswithin the time period is included. pH, [...] PROCEDURES Blood, Arterial 04/28/2024 4 :56 AM SECURITIES TELLER us Tiago Armstrong MD LAB POINT OF CARE TEST ORDER MARISEL Final Result [facility] IN-HOUSE PROCEDURES * CT chest WO contrast (04/25/2024 3:55 PM SECURITIES TELLER) Anatomical Region Laterality Modality Body Computed Tomogra phy Impressions 04/26/2024 12:12 PM SECURITIES TELLER IMPRESSION: IMPRESSION: Medial bilateral lower lobe opacities. These demonstrate air bronchograms on the right greater than left, and could represent pneumonia or atelectasis. Correlation with the clinical picture is necessary. > Interpreting Provider: Nile Montiel MD on 04/26/2024 12:12 PM Narrative 04/26/2024 12:12 PM SECURITIES TELLER NARRATIVE: PROCEDURE: CT CHEST WO CONTRAST, DATE/TIME OF EXAM: 04/25/2024 3:57 PM, LOCATION [facility] INDICATION: right effusion and atelectasis ADDITIONAL [...] DATE/TIME OF EXAM: 04/25/2024 3:57 PM, LOCATION [facility] INDICATION: right effusion and atelectasis ADDITIONAL [...] on 04/26/2024 12:12 PM Tiago Armstrong MD IM CT ORDERABLES Final Resu lt * (ABNORMAL) Creatinine clearance, urine, 24 hour (04/25/2024 10:36 AM SECURITIES TELLER) Volume Urine Total Ml 24Hr 2110 mL [facility] Collection Time Hrs Urine 24Hr 24 hrs [facility] Height Inches Cr Clear 70 inches [facility] Weight Pounds Cr Clear 308 pounds [facility] Surface area Cr clear 2.51 [facility] Creatinine mg/dL Blood Crclr 1.20(H) 0.57 - 1.11 mg/dL [facility] Creatinine Urine mg/dL 29.94 mg/dL [facility] Creatinine Urine mg/24Hr 632(L) 710 - 1650 mg/24hr [facility] Creat Clearance Ml/Min Urine 24 Hr 25(L) 66 - 165 mL/min/1.7 3m2 [facility] Urine (Urine, Catheter) 04/25/2024 10:36 AM SECURITIES TELLER 04/25/2024 10:53 AM SECURITIES TELLER Oswaldo Page MD LAB URINE ORDERABLES Final Resul t Performing Organization Address [facility] [place] [facility] Co de Phone Number [facility] [address] [place] [address] * (ABNORMAL) Protein, urine, 24 hour (04/25/2024 10:36 AM SECURITIES TELLER) Volume Urine Total Ml 24Hr 2110 mL [facility] Collection Time Hrs Urine 24Hr 24 hrs [facility] Protein Urine mg/24Hr 430(H) <300 mg/24hr [facility] Protein Urine mg/dL 20.4(H) <11.9 mg/dL [facility] Urine (Urine, Catheter) 04/25/2024 10:36 AM SECURITIES TELLER 04/25/2024 10:53 AM SECURITIES TELLER Oswaldo Page MD LAB URINE ORDERABLES Final Resul t Performing Organization Address [facility]/ZIP Co de Phone Number [facility] [address] [place] [address] * Phosphorus (04/25/2024 3:36 AM SECURITIES TELLER) Phosphorus mg/dL Blood 3.2 2.5 - 4.5 mg/dL [facility] Blood (Blood, Venous) 04/25/2024 3:36 AM SECURITIES TELLER 04/25/2024 5:15 AM SECURITIES TELLER us Oswaldo Page MD LAB BLOOD ORDERABLES Final Resul t [facility] [address] [place] [address] * (ABNORMAL) Comprehensive metabolic panel (04/25/2024 3:36 AM SECURITIES TELLER) Glucose mg/dL Blood 184(H) 70 - 99 mg/dL [facility] Sodium mmol/L Blood 139 136 - 145 mmol/L [facility] Potassium mmol/L Blood 3.2(L) 3.5 - 5.1 mmol/L [facility] Chloride 102 98 - 107 mmol/L [facility] CO2 28 22 - 29 mmol/L [facility] Calcium mg/dL Blood 8.2(L) 8.4 - 10.4 mg/dL [facility] Anion Gap Blood 9 6 - 16 mmol/L [facility] Bun mg/dL Blood 49(H) 7 - 26 mg/dL [facility] Creatinine 1.20(H) 0.57 - 1.11 mg/dL [facility] Alk Phos U/L Blood 77 40 - 150 U/L [facility] ALT/SGPT U/L Blood 18 0 - 55 U/L [facility] AST/SGOT U/L Blood 11 5 - 34 U/L [facility] Protein Total gm/dL Blood 5.2(L) 6.4 - 8.3 gm/dL [facility] Albumin gm/dL Blood 2.1(L) 3.4 - 5.0 gm/dL [facility] Bilirubin Total mg/dL Blood 0.5 0.2 - 1.2 mg/dL [facility] EGFRCR CKD-EPI 48(L) >=90 mL/min/1. 73 m2 [facility] Blood (Blood, Venous) 04/25/2024 3:36 AM SECURITIES TELLER 04/25/2024 5:15 AM SECURITIES TELLER Oswaldo Page MD LAB BLOOD ORDERABLES Final Resul t [facility] [address] [place] [address] from Last 3 Months Advance Directives * Full Resuscitation (Latest Code Status on File) Date Activated Date Inactivated Comments 04/18/2024 11:12 PM 05/16/2024 5:58 PM Question Answer Comments I have discussed this order with the patient or his/her surrogate and have received informed consent. Yes Care Teams Assembly Associate Relationship Specialty Start Date End Date Walt Kirk MD [address] [phone] PCP - General 04/21/24
[2024-07-20] MEDS: LORazepam INJ (*CRX) 2 MG/ML VIAL 1 MG IV PUSH (10:37)
[2024-07-20] MEDS: MORPHINE SULFATE (*CRX) 4 MG/ML INJ IV PUSH ×2 (10:37→10:40)
--- NOTE | 2024-07-20 10:38 | PCRCNOTE ---
pt code blue, abg not obtained
[2024-07-20] MEDS: LORazepam INJ (*CRX) 2 MG/ML VIAL IV PUSH (10:41)
--- NOTE | 2024-07-20 10:57 | ED_ITS ---
HPI - General Adult General Chief complaint: Altered Mental Status Stated complaint: altered mental status Time Seen by Provider: 07/20/24 09:17 History of Present Illness HPI narrative: Patient is a 69-year-old female who presents ER with sudden change in mental status. Was normal this morning and then when the retirement checked on her shoes unresponsive to pain. Patient was hypotensive. Nonverbal. She has a PEG tube in place. EMS attempted intraosseous line x4 with failure so patient arrives without access. Family was adamant in the refusal for the ambulance to take the patient to the closest facility. EMS educated family the best they could about the significant risk of transporting a prolonged distances the critically ill patient and family was adamant about taking her to this hospital. Patient chronically ill since her hospitalization in April with pneumonia and septic shock. She had been receiving dialysis. Patient has had release of large volume loose stool making additional access placement difficult due to risk of contamination. Related Data Home Medications ?Medication ?Instructions ?Recorded ?Confirmed ?Last Taken ?Type rosuvastatin 20 mg tablet 20 mg PO DAILY 01/01/23 03/27/24 03/26/24 History apixaban 5 mg tablet (Eliquis) 5 mg PO Q12H 03/27/24 03/27/24 03/26/24 History Allergies Allergy/AdvReac Type Severity Reaction Status Date / Time No Known Allergies Allergy Verified 03/27/24 11:06 Review of Systems Review of Systems: ROS unobtainable: Yes unobtainable due to medical condition PMFSH Past Medical History Medical History Acute hypoxic respiratory failure Atrial fibrillation with RVR Septic shock RSV (respiratory syncytial virus pneumonia) Malnutrition Atrial fibrillation History of endometrial cancer Sleep apnea does not use CPAP High cholesterol Diabetes Hypertension Surgical History Surgical History History of total hysterectomy (~2018) History of cholecystectomy (~1998) History of 1977, 1983, 1990 Family History Family History Mother Uterine cancer Daughter Thyroid cancer Sibling Spinal cord cancer Social History Social History Social History: Patient lives at home with her . No pets in the home. Smoking status: Never smoker Alcohol intake: current Alcohol use details: occasional. Less than once a month. Substance use: never Substance use type: does not use Do You Feel Safe in your Home?: Yes Lack of Transportation: No Lack of Food: Never True Current Housing: I Have Housing Concerned About Future Housing: No Difficulty Paying Gas/Electric Bills: No Difficulty Paying for Meds: YES Currently Unemployed: No Education: Trade/Vocational Certificate Difficulty w/ Childcare or Family Care: No Living arrangements: with family Spiritual care concerns: No Exam Narrative: GENERAL: Toxic appearing, morbidly obese. Waist and legs covered in liquid stool. HEAD: Normocephalic, atraumatic. Eyes: PERRLA, EOMI. ENT: Dry mucous membranes. NECK: Supple. CHEST: Clear to auscultation. No respiratory distress. HEART: Regular rate and rhythm. Week peripheral pulses. ABDOMEN: Soft, nontender, nondistended. Normal appearing PEG tube in epigastrium. EXTREMITIES: Cool distal extremities without deformity. Patient localizes to pain with normal range of motion. SKIN: Cool, dry. NEURO: Patient awake and alert. Localizes to pain. Nonverbal. Course Course Emergency Course: After EKG which shows STEMI patient lost pulses and ACLS protocol was initiated. There was the possibility of acidosis and hyperkalemia given EKG changes so in addition to epinephrine, patient received sodium bicarb as well as calcium chloride. Patient did have a slow bradycardic rhythm of <25 beats per minute after 20 minutes of resuscitation. Atropine did not change the rhythm. Pulses could not be felt but cardiac activity seen on bedside ultrasound. Multiple updates to family. The decision was made by her to withdraw care and keep the patient comfortable. Patient then received Ativan as well as morphine to treat any pain/air hunger/anxiety that she may be able to since. Patient pronounced at 10:49 a.m. 1101: Spoke with Dr. Kirk who will sign the certificate. Vital Signs Vital signs: Vital Signs Temperature 90.8 F L 07/20/24 09:06 Pulse Rate 104 H 07/20/24 09:06 Respiratory Rate 22 H 07/20/24 09:06 Pulse Oximetry 94 07/20/24 09:06 Temperature 98.6 F 07/20/24 10:00 Pulse Rate 89 07/20/24 09:50 Respiratory Rate 22 H 07/20/24 09:06 Blood Pressure 103/91 H 07/20/24 09:50 Pulse Oximetry 96 07/20/24 09:50 Oxygen Delivery Room Air 07/20/24 09:50 Procedures Intubation Intubation #1: Time out performed: No sedative: none Laryngoscope: fiber optic video scope Tube Size (cm): Cuffed Method of Intubation: orotracheal Number of Attempts: 2 Tube Placement Confirmation: visualized tube passing through cords, equal breath sounds bilaterally and confirmation by capnometry Patient Tolerated Procedure: no complications Intubation Complications: none IO Right Tibia: Time Out Performed: No Local Anesthetic: none Prep: sterile prep IO Instrument Used to Penetrate the Cortex: battery powered IO drill Post Procedure: aspirated marrow, easily flushes and secured in place Patient Tolerated Procedure: well and no complications Complications: none Medical Decision Making Vital Signs Vital Signs: Vital Signs Temperature 90.8 F L 07/20/24 09:06 Pulse Rate 104 H 07/20/24 09:06 Respiratory Rate 22 H 07/20/24 09:06 Pulse Oximetry 94 07/20/24 09:06 Temperature 98.6 F 07/20/24 10:00 Pulse Rate 89 07/20/24 09:50 Respiratory Rate 22 H 07/20/24 09:06 Blood Pressure 103/91 H 07/20/24 09:50 Pulse Oximetry 96 07/20/24 09:50 Oxygen Delivery Room Air 07/20/24 09:50 Lab Data Labs: Lab Results 07/20/24 Range/Units 09:17 POC Capillary Glucose 132 H (65-105) mg/dl Critical Care Time Critical Care Time Critical Care Time: Yes Total Critical Care Time: 45 Discharge Plan Discharge Clinical Impression: Cardiopulmonary arrest, ST elevation (STEMI) myocardial infarction Patient Disposition: Condition: Patient Language: Citizen Of [place] Prescriptions: No Action rosuvastatin 20 mg tablet 20 mg PO DAILY Eliquis 5 mg tablet 5 mg PO Q12H docosanol [Abreva] 10 % Cream 1 applic topical 5 TIMES DAILY Qty: 1 0RF acetaminophen 325 mg Tablet 650 mg PO Q4H PRN (Reason: Mild Pain (1-3) Or Fever) Qty: 30 0RF insulin glargine [Lantus U-100 Insulin] 100 unit/mL Solution 28 unit subcut DAILY Qty: 30 0RF polyethylene glycol 3350 [Miralax] 17 gram Powder In Packet 17 g PO QAM PRN (Reason: Constipation) Qty: 30 0RF amiodarone [Pacerone] 200 mg Tablet 400 mg PO DAILY Qty: 30 0RF cefepime 2 gram Recon Soln 2 g IV PRN PRN (Reason: AFTER DIALYSIS) Qty: 14 0RF sennosides-docusate sodium [Senokot-S] 8.6-50 mg Tablet 1 tab PO HS Qty: 30 0RF dextrose [Glutose-15] 40 % Gel 15 g PO PRN PRN (Reason: Hypoglycemia) Qty: 30 0RF pantoprazole [Protonix] 40 mg Recon Soln 40 mg IV PUSH DAILY Qty: 30 0RF insulin aspart U-100 [Novolog U-100 Insulin aspart] 100 unit/mL Solution 4 - 8 unit subcut Q4HR Qty: 30 0RF Protocol: Insulin Corrective High-Dose Condition: glucose < 70 mg/dl Dose/Route: Follow hypoglycemia order Condition: glucose 70-200 mg/dl Dose/Route: No additional insulin Condition: glucose 201-250 mg/dl Dose/Route: 4 units sub-Q Condition: glucose 251-300 mg/dl Dose/Route: 5 units sub-Q Condition: glucose 301-350 mg/dl Dose/Route: 6 units sub-Q Condition: glucose 351-400 mg/dl Dose/Route: 8 units sub-Q Condition: glucose > 400 mg/dl Dose/Route: Call bisacodyl 10 mg Suppository 10 mg RECTAL QAM PRN (Reason: Constipation) Qty: 30 0RF metoprolol tartrate 50 mg Tablet 50 mg PO Q12HR Qty: 30 0RF cephalexin 500 mg capsule 500 mg PO Q6H Qty: 28 0RF polyethylene glycol 3350 17 gram/dose powder 17 g PO DAILY Qty: 119 0RF Follow-up/Referrals: Reagan,Walt Lord MD [Primary Care Provider] -
--- NOTE | 2024-07-20 11:23 | PC.NURSE ---
0958 Code blue called on patient, see code sheet.
== END 2024-07-20 13:02 | disposition expired ==
PROVIDERS: Emergency Provider Emergency Medicine; PCP Internal Medicine
DX: I21.3 ST elevation (STEMI) myocardial infarction of unspecified site (principal); I46.9 Cardiac arrest, cause unspecified; I48.91 Unspecified atrial fibrillation; I10 Essential (primary) hypertension; E78.00 Pure hypercholesterolemia, unspecified; E11.9 Type 2 diabetes mellitus without complications; G47.30 Sleep apnea, unspecified; Z90.710 Acquired absence of both cervix and uterus; Z90.49 Acquired absence of other specified parts of digestive tract; Z79.01 Long term (current) use of anticoagulants; Z79.899 Other long term (current) drug therapy; Z79.4 Long term (current) use of insulin; I45.10 Unspecified right bundle-branch block
CPT/HCPCS: 31500; 36680; 82948; 92950; 93005; 96374; 96375; 99285; C1751; J0171; J0461; J2003; J2060; J2270; J7030